=== PATIENT | female | born 1970 | race Caucasian/White ===

== ENCOUNTER → 2017-04-14 | Emergency (ER) | payer MEDICAID ==
[~2017-04-14] VITALS: Ht 165.1 cm; Wt 63.5 kg
[~2017-04-14] MED LIST: DOX100C PO; IBUP-1174 PO; InsuLIN REG 1unit/0.01ml Soln (100units/ml) IV ONE; MORPHINE SULFATE 4 MG/ML SYRG IV ONE; NOR5T PO; ONDANSETRON HCL 4 MG/2 ML VIAL IV ONE; SODIUM CHLORIDE 0.9% 500 ML IVB ONE
[2017-04-14 13:28] LABS: Urine Bilirubin Negative (Negative); Urine Blood Negative /uL (Negative); Urine Color Colorless (Yellow); Urine Nitrite Negative (Negative); Urine RBC <1 /hpf (0 - 4); Urine Squamous Epithelial Cell FEW /hpf (<5); Urine Urobilinogen Normal (Negative); Urine pH 7.5 (5.0-8.0)
[2017-04-14 13:29] LABS: Urine Glucose 4+ mg/dL (Normal); Urine Ketone 1+ (Negative)
[2017-04-14 13:37] LABS: Basophils # (auto) 0 uL; Basophils % (auto) 0.1 % (0.0-2.0); Eosinophils # (auto) 0.1 uL; Eosinophils % (auto) 0.5 % (0.0-7.0); Hematocrit 46.2 % (36.0-46.0); Hemoglobin 15.7 g/dL (12.2-16.2); Lymphocytes # (auto) 1.2 uL; Lymphocytes % (auto) 9.1 % (10.0-50.0); Mean Corpuscular Hemoglobin 30.8 pg (28.0-32.0); Mean Corpuscular Volume 90.5 fL (80.0-100.0); Mean Platelet Volume 8.9 fL (7.4-10.4); Monocytes # (auto) 0.4 uL; Neutrophils # (auto) 11.9 uL; Neutrophils % (auto) 87.3 % (37.0-80.0); Platelet Count (auto) 358 10^3/uL (140-450); Red Cell Distribution Width 13.9 % (11.6-16.0); White Blood Cell 13.6 10^3/uL (4.4-10.8)
[2017-04-14 13:56] LABS: Albumin 3.9 g/dL (3.4-5.0); Potassium 3.6 mmol/L (3.5-5.1)
[2017-04-14 13:58] LABS: BUN/Creatinine Ratio 19.3; Total Protein 7.6 g/dL (6.4-8.2)
[2017-04-14 14:03] LABS: Bilirubin, Total 0.4 mg/dL (0.2-1.0)
[2017-04-14 17:07] VITALS: BP 128/46
== END | disposition home or self-care (01) ==
LOC: EDUNIT# 12:47 → EDBD 12:56 → ER 13:01
DX: R10.9 Unspecified abdominal pain (principal); I10 Essential (primary) hypertension; E11.65 Type 2 diabetes mellitus with hyperglycemia; K21.9 Gastro-esophageal reflux disease without esophagitis; E78.5 Hyperlipidemia, unspecified; F17.210 Nicotine dependence, cigarettes, uncomplicated; F12.10 Cannabis abuse, uncomplicated; Z79.4 Long term (current) use of insulin
CPT/HCPCS: 36415; 80053; 81001; 82150; 82962; 83690; 84702; 85025; 93005; 94761; 96361; 96374; 96375; 99285; J1815; J2270; J2405; J7030; J7040

== ENCOUNTER 2017-05-19 18:01 | Inpatient (IN) | payer MEDICAID ==
[~2017-05-19] VITALS: Ht 157.5 cm; Wt 70.9 kg
[~2017-05-19 18:01] MED LIST changes: +HYDR-4663 PO; -InsuLIN REG 1unit/0.01ml Soln (100units/ml) IV ONE; -MORPHINE SULFATE 4 MG/ML SYRG IV ONE; -NOR5T PO; -ONDANSETRON HCL 4 MG/2 ML VIAL IV ONE; -SODIUM CHLORIDE 0.9% 500 ML IVB ONE
[2017-05-19] MEDS ORDERED: SODIUM CHLORIDE 0.9% 250 ML IV ONE (19:02)
[2017-05-19 19:27] LABS: Basophils # (auto) 0.1 uL; Basophils % (auto) 0.4 % (0.0-2.0); CONDITION Y; Eosinophils # (auto) 0 uL; Eosinophils % (auto) 0.1 % (0.0-7.0); Hematocrit 48.7 % (36.0-46.0); Hemoglobin 16.7 g/dL (12.2-16.2); Lymphocytes # (auto) 1.4 uL; Lymphocytes % (auto) 9.8 % (10.0-50.0); Mean Corpuscular Hemoglobin 30.4 pg (28.0-32.0); Mean Corpuscular Hgb Conc. 34.3 g/dL (32.0-36.0); Mean Corpuscular Volume 88.6 fL (80.0-100.0); Mean Platelet Volume 9.2 fL (7.4-10.4); Monocytes # (auto) 0.5 uL; Monocytes % (auto) 3.5 % (0.0-12.0); Neutrophils # (auto) 12.1 uL; Neutrophils % (auto) 86.2 % (37.0-80.0); Platelet Count (auto) 333 10^3/uL (140-450); Red Cell Distribution Width 12.9 % (11.6-16.0); White Blood Cell 14.1 10^3/uL (4.4-10.8)
[2017-05-19 19:41] LABS: INR 0.97 (0.9-1.15)
[2017-05-19 19:53] LABS: B-Type Natriuretic Peptide 24.57 pg/mL (0-100)
[2017-05-19 19:55] LABS: Albumin 4.1 g/dL (3.4-5.0); BUN/Creatinine Ratio 18.3; Bilirubin, Total 1.4 mg/dL (0.2-1.0); Calcium 9.3 mg/dL (8.5-10.1); Magnesium 2.2 mg/dL (1.6-2.6); Potassium 3.7 mmol/L (3.5-5.1); Total Protein 7.6 g/dL (6.4-8.2)
[2017-05-19 20:02] LABS: Temperature: 23.4 C (20.0-25.0)
[2017-05-19] MEDS ORDERED: MORPHINE SULF INJ 2 MG/ML SYRINGE 1ML IV ONE (20:15)
[2017-05-19] MEDS ORDERED: ONDANSETRON HCL 4 MG/2 ML VIAL IV ONE (20:15)
[2017-05-19] MEDS ORDERED: InsuLIN REG 1unit/0.01ml Soln (100units/ml) IV ONE (20:15)
[2017-05-19 21:41] LABS: Lactic Acid w/Reflex 3.4 mmol/L (0.4-2.0)
[2017-05-19 21:49] LABS: REFLEX LACTIC ACID YES OR NO YES
[2017-05-19] MEDS ORDERED: SODIUM CHLORIDE 0.9% 2,000 ML IV ONE (23:15)
[2017-05-19] MEDS ORDERED: cefTRIAXone 1GM/50ML D5W 50 ML IV ONE (23:15)
[2017-05-20 02:08] LABS: Allen Test Yes; Base Excess 5.3 mmol/L (-2.0-2.0); Blood 02Sat 93.4 % (96-100); Blood COHb 1.4 % (0.5-1.5); Blood MetHb 0.2 % (0.0-1.5); HCO3 30.2 mmol/L (22-26.0); HHb 6.5 % (0.0-5.0); MODE ROOM AIR; O2Hb 91.9 % (94.0-97.0); PCO2 44.9 mmHg (35.0-45.0); PCO2(T) 44.9 mmHg (35.0-45.0); PO2 72.6 mmHg (80.0-100.0); PO2(T) 72.6 mmHg (80.0-100.0); Sample Type Arterial; pH 7.445 (7.350-7.450)
[2017-05-20 02:35] LABS: Urine Bilirubin Negative (Negative); Urine Blood Negative /uL (Negative); Urine Color Yellow (Yellow); Urine Glucose 4+ mg/dL (Normal); Urine Hyaline Cast FEW /lpf (0 - 2); Urine Ketone 1+ (Negative); Urine Nitrite Negative (Negative); Urine RBC <1 /hpf (0 - 4); Urine Squamous Epithelial Cell FEW /hpf (<5); Urine Urobilinogen Normal (Negative)
[2017-05-20] MEDS ORDERED: ONDANSETRON HCL 4 MG/2 ML VIAL IV ONE (04:30)
[2017-05-20] MEDS ORDERED: MORPHINE SULF INJ 2 MG/ML SYRINGE 1ML IV ONE (04:30)
[2017-05-20] MEDS ORDERED: MORPHINE SULF INJ 2 MG/ML SYRINGE 1ML IV PRN (06:45)
[2017-05-20] MEDS ORDERED: NITROGLYCERIN 0.4 MG SL TAB SL PRN (06:45)
[2017-05-20] MEDS ORDERED: LACTULOSE 20Gm/30ML SOLN PO PRN (06:45)
[2017-05-20] MEDS ORDERED: SODIUM CHLORIDE 0.9% 1,000 ML IV ONE ×2 (06:45)
[2017-05-20] MEDS ORDERED: DEXTROSE (50%) 50ML SYRG IV PRN (07:00)
[2017-05-20 09:56] VITALS: BP 180/94
[2017-05-20] MEDS: ENOXAPARIN SOD 30 MG/0.3 ML SYRINGE SC SCH (10:00)
[2017-05-20] MEDS: InsuLIN REG 1unit/0.01ml Soln (100units/ml) SC SCH ×4 (10:23→21:46)
[2017-05-20] MEDS: ACCU-CHEK COMFORT CURVE STRIP VI SCH ×4 (10:24→21:46)
[2017-05-20] MEDS: METOPROLOL TARTRATE 25 MG TAB PO SCH ×2 (10:27→21:45)
[2017-05-20 10:35] LABS: Basophils # (auto) 0 uL; Basophils % (auto) 0.2 % (0.0-2.0); CONDITION Y; Eosinophils # (auto) 0.1 uL; Eosinophils % (auto) 0.5 % (0.0-7.0); Hematocrit 40.2 % (36.0-46.0); Hemoglobin 13.5 g/dL (12.2-16.2); Lymphocytes # (auto) 1.4 uL; Lymphocytes % (auto) 11.4 % (10.0-50.0); Mean Corpuscular Hemoglobin 30.1 pg (28.0-32.0); Mean Corpuscular Hgb Conc. 33.5 g/dL (32.0-36.0); Mean Corpuscular Volume 89.9 fL (80.0-100.0); Mean Platelet Volume 8.9 fL (7.4-10.4); Monocytes # (auto) 0.6 uL; Monocytes % (auto) 4.9 % (0.0-12.0); Neutrophils # (auto) 10.2 uL; Platelet Count (auto) 268 10^3/uL (140-450); White Blood Cell 12.3 10^3/uL (4.4-10.8)
[2017-05-20 10:41] LABS: Albumin 3.2 g/dL (3.4-5.0); BUN/Creatinine Ratio 31.7; Bilirubin, Total 0.7 mg/dL (0.2-1.0); Calcium 7.9 mg/dL (8.5-10.1); Potassium 3.6 mmol/L (3.5-5.1); Total Protein 6.1 g/dL (6.4-8.2)
[2017-05-20] MEDS: cefTRIAXone 1GM/50ML D5W 50 ML IV SCH (12:31)
[2017-05-20] MEDS: PANTOPRAZOLE SODIUM 40 MG/10 ML VIAL IV SCH (12:58)
[2017-05-20 13:00] VITALS: BP 120/73
[2017-05-20] MEDS ORDERED: METOCLOPRAMIDE HCL 5MG/ml INJ 2ml VIAL IV ONE (14:30)
[2017-05-20] MEDS ORDERED: INSUINJ37 SUBCUT (15:47)
[2017-05-20 16:40] VITALS: BP 92/55
[2017-05-20] MEDS: ONDANSETRON HCL 4 MG/2 ML VIAL IV PRN (18:40)
[2017-05-20] MEDS ORDERED: ZOLPIDEM TARTRATE 5 MG TAB PO PRN (19:30)
[2017-05-20 20:00] VITALS: BP 112/78
[2017-05-20] MEDS: SODIUM CHLORIDE 0.9% 1,000 ML IV SCH (21:12)
[2017-05-20] MEDS: ATORVASTATIN 20 MG TAB PO SCH (21:44)
[2017-05-20] MEDS: METOCLOPRAMIDE HCL 5MG/ml INJ 2ml VIAL IV SCH (21:44)
[2017-05-20] MEDS: ACETAMINOPHEN 500 MG TAB PO PRN (21:45)
[2017-05-20 22:00] VITALS: BP 112/78
[2017-05-21] MEDS: InsuLIN REG 1unit/0.01ml Soln (100units/ml) SC SCH ×6 (02:03→22:32)
[2017-05-21] MEDS: ACCU-CHEK COMFORT CURVE STRIP VI SCH ×6 (02:04→22:26)
[2017-05-21] MEDS: LORazepam 0.5 MG TAB PO PRN (02:19)
[2017-05-21] MEDS: ONDANSETRON HCL 4 MG/2 ML VIAL IV PRN ×2 (02:19→09:07)
[2017-05-21 05:00] VITALS: BP 97/56
[2017-05-21] MEDS: METOCLOPRAMIDE HCL 5MG/ml INJ 2ml VIAL IV SCH ×3 (06:01→22:13)
[2017-05-21] MEDS: SODIUM CHLORIDE 0.9% 1,000 ML IV SCH ×3 (06:01→18:11)
[2017-05-21 06:05] LABS: Basophils # (auto) 0 uL; Basophils % (auto) 0.3 % (0.0-2.0); CONDITION Y; Eosinophils # (auto) 0.1 uL; Eosinophils % (auto) 0.9 % (0.0-7.0); Hematocrit 39.8 % (36.0-46.0); Hemoglobin 13.4 g/dL (12.2-16.2); Lymphocytes # (auto) 2.1 uL; Lymphocytes % (auto) 25.2 % (10.0-50.0); Mean Corpuscular Hemoglobin 30.6 pg (28.0-32.0); Mean Corpuscular Hgb Conc. 33.7 g/dL (32.0-36.0); Mean Corpuscular Volume 90.7 fL (80.0-100.0); Mean Platelet Volume 8.9 fL (7.4-10.4); Monocytes # (auto) 0.5 uL; Monocytes % (auto) 6.4 % (0.0-12.0); Neutrophils # (auto) 5.6 uL; Neutrophils % (auto) 67.2 % (37.0-80.0); Platelet Count (auto) 241 10^3/uL (140-450); White Blood Cell 8.3 10^3/uL (4.4-10.8)
[2017-05-21 06:29] LABS: Albumin 3.2 g/dL (3.4-5.0); BUN/Creatinine Ratio 32.8; Bilirubin, Total 0.5 mg/dL (0.2-1.0); Calcium 8.4 mg/dL (8.5-10.1); Magnesium 2.3 mg/dL (1.6-2.6); Phosphorus 1.9 mg/dL (2.5-4.90); Total Protein 5.9 g/dL (6.4-8.2)
[2017-05-21 07:35] LABS: Potassium 2.8 mmol/L (3.5-5.1)
[2017-05-21 08:00] VITALS: BP 100/55
[2017-05-21] MEDS: cefTRIAXone 1GM/50ML D5W 50 ML IV SCH (08:50)
[2017-05-21] MEDS: PANTOPRAZOLE SODIUM 40 MG/10 ML VIAL IV SCH (09:07)
[2017-05-21] MEDS: ENOXAPARIN SOD 30 MG/0.3 ML SYRINGE SC SCH (09:08)
[2017-05-21] MEDS: METOPROLOL TARTRATE 25 MG TAB PO SCH ×2 (09:08→22:00)
[2017-05-21] MEDS: ACETAMINOPHEN 500 MG TAB PO PRN ×2 (09:17→22:13)
[2017-05-21] MEDS ORDERED: POTASSIUM CHLORIDE 40 MEQ, LIDOCAINE 1% (LOCAL ANESTH.) 4 ML in SODIUM CHL 0.9% 250 ML IV ONE (10:00)
[2017-05-21 12:00] VITALS: BP 108/71
[2017-05-21 16:00] VITALS: BP 98/59
[2017-05-21 20:00] VITALS: BP 94/57
[2017-05-21 20:47] VITALS: BP 94/57
[2017-05-21] MEDS: ATORVASTATIN 20 MG TAB PO SCH (22:13)
[2017-05-22] VITALS (8 sets, daily range): BP systolic 90–234; BP diastolic 52–127
[2017-05-22] MEDS: ACCU-CHEK COMFORT CURVE STRIP VI SCH ×5 (01:25→17:22)
[2017-05-22] MEDS: InsuLIN REG 1unit/0.01ml Soln (100units/ml) SC SCH ×5 (01:26→17:32)
[2017-05-22] MEDS: SODIUM CHLORIDE 0.9% 1,000 ML IV SCH ×3 (03:13→17:23)
[2017-05-22 06:18] LABS: Basophils # (auto) 0 uL; Basophils % (auto) 0.4 % (0.0-2.0); CONDITION Y; Eosinophils # (auto) 0.2 uL; Eosinophils % (auto) 2.1 % (0.0-7.0); Hematocrit 38.7 % (36.0-46.0); Lymphocytes # (auto) 3.5 uL; Lymphocytes % (auto) 47.2 % (10.0-50.0); Mean Corpuscular Hemoglobin 30.9 pg (28.0-32.0); Mean Corpuscular Hgb Conc. 33.6 g/dL (32.0-36.0); Mean Corpuscular Volume 91.9 fL (80.0-100.0); Mean Platelet Volume 9.3 fL (7.4-10.4); Monocytes # (auto) 0.4 uL; Monocytes % (auto) 5.8 % (0.0-12.0); Neutrophils # (auto) 3.3 uL; Neutrophils % (auto) 44.5 % (37.0-80.0); Platelet Count (auto) 267 10^3/uL (140-450); White Blood Cell 7.5 10^3/uL (4.4-10.8)
[2017-05-22] MEDS: METOCLOPRAMIDE HCL 5MG/ml INJ 2ml VIAL IV SCH ×2 (06:19→14:07)
[2017-05-22 06:41] LABS: BUN/Creatinine Ratio 18.8; Calcium 8.6 mg/dL (8.5-10.1); Magnesium 2.4 mg/dL (1.6-2.6); Phosphorus 2.9 mg/dL (2.5-4.90)
[2017-05-22] MEDS: ONDANSETRON HCL 4 MG/2 ML VIAL IV PRN ×2 (07:59→17:22)
[2017-05-22] MEDS: LORazepam 0.5 MG TAB PO PRN (07:59)
[2017-05-22] MEDS: cefTRIAXone 1GM/50ML D5W 50 ML IV SCH (08:04)
[2017-05-22] MEDS: ENOXAPARIN SOD 30 MG/0.3 ML SYRINGE SC SCH (09:34)
[2017-05-22] MEDS: METOPROLOL TARTRATE 25 MG TAB PO SCH (09:34)
[2017-05-22] MEDS: PANTOPRAZOLE SODIUM 40 MG/10 ML VIAL IV SCH (09:34)
== END 2017-05-22 20:22 | disposition home or self-care (01) | DRG 423 ==
LOC: ER 18:07 → TELE 18:08 → TELE-E-ADS 05-20 08:49 → TELE-EAST 05-20 12:12
PROVIDERS: ADMIT Family Medicine; ATTEND Nurse Practitioner Acute Care
DX: E72.51 Non-ketotic hyperglycinemia (principal); N17.0 Acute kidney failure with tubular necrosis; K31.84 Gastroparesis; E11.43 Type 2 diabetes mellitus with diabetic autonomic (poly)neuropathy; E11.65 Type 2 diabetes mellitus with hyperglycemia; E87.1 Hypo-osmolality and hyponatremia; K21.9 Gastro-esophageal reflux disease without esophagitis; E86.0 Dehydration; I10 Essential (primary) hypertension; Z91.19 Patient's noncompliance with other medical treatment and regimen; E78.00 Pure hypercholesterolemia, unspecified; E87.0 Hyperosmolality and hypernatremia; F12.90 Cannabis use, unspecified, uncomplicated; F17.210 Nicotine dependence, cigarettes, uncomplicated; E11.40 Type 2 diabetes mellitus with diabetic neuropathy, unspecified; F32.9 Major depressive disorder, single episode, unspecified; Z71.89 Other specified counseling; F19.10 Other psychoactive substance abuse, uncomplicated
CPT/HCPCS: 36415; 36600; 51702; 71010; 80048; 80053; 80307; 81001; 82010; 82805; 82962; 83036; 83605; 83690; 83735; 83880; 84100; 84484; 85025; 85379; 85610; 85730; 87040; 93005; 96365; 96375; 96376; C9113; J0696; J1815; J2001; J2405

== ENCOUNTER 2017-12-29 11:28 | Inpatient (IN) | payer MEDICAID ==
[~2017-12-29] VITALS: Ht 157.5 cm; Wt 72.9 kg
[~2017-12-29 11:28] MED LIST changes: +BUP75T PO; +CITA-77 PO; -DOX100C PO; +DOXY-216 PO; -HYDR-4663 PO; -IBUP-1174 PO; +INSUINJ37 SUBCUT
[2017-12-29 12:16] LABS: Basophils # (auto) 0.1 uL; Basophils % (auto) 0.5 % (0.0-2.0); Eosinophils # (auto) 0 uL; Eosinophils % (auto) 0.1 % (0.0-7.0); Hematocrit 45.4 % (36.0-46.0); Hemoglobin 15.4 g/dL (12.2-16.2); Lymphocytes # (auto) 1.1 uL; Lymphocytes % (auto) 9.3 % (10.0-50.0); Mean Corpuscular Hemoglobin 30.4 pg (28.0-32.0); Mean Corpuscular Volume 89.4 fL (80.0-100.0); Monocytes # (auto) 0.6 uL; Monocytes % (auto) 5.4 % (0.0-12.0); Neutrophils # (auto) 10.1 uL; Neutrophils % (auto) 84.7 % (37.0-80.0); Platelet Count (auto) 245 10^3/uL (140-450); Red Blood Cells 5.07 10^6/uL (4.0-5.20); Red Cell Distribution Width 12.6 % (11.8-14.3); White Blood Cell 11.9 10^3/uL (4.4-10.8)
[2017-12-29] MEDS ORDERED: SODIUM CHLORIDE 0.9% 1,000 ML IV ONE (12:19)
[2017-12-29] MEDS ORDERED: ONDANSETRON HCL 4 MG/2 ML VIAL IV ONE (12:30)
[2017-12-29 12:31] LABS: Urine Bacteria NONE SEEN /hpf (None Seen); Urine Blood Negative /uL (Negative); Urine Specific Gravity 1.022 (1.001-1.035); Urine WBC <1 /hpf (0 - 5)
[2017-12-29 12:44] LABS: Albumin 3.7 g/dL (3.4-5.0); BUN/Creatinine Ratio 34.5; Bilirubin, Total 0.7 mg/dL (0.2-1.0); Calcium 8.8 mg/dL (8.5-10.1); Potassium 4.3 mmol/L (3.5-5.1); Total Protein 7.6 g/dL (6.4-8.2)
[2017-12-29] MEDS: SODIUM CHLORIDE 0.9% 1,000 ML IV SCH ×2 (13:30→21:38)
[2017-12-29] MEDS ORDERED: HYDROcodone-ACET 5/325MG TAB PO PRN (13:45)
[2017-12-29] MEDS ORDERED: LORazepam 0.5 MG TAB PO PRN (13:45)
[2017-12-29] MEDS ORDERED: LACTULOSE 20Gm/30ML SOLN PO PRN (13:45)
[2017-12-29] MEDS ORDERED: ENOXAPARIN SOD 40 MG/0.4 ML SYRINGE SC ONE (13:45)
[2017-12-29] MEDS ORDERED: MORPHINE SULFATE 4 MG/ML SYR/VIAL IV PRN (13:45)
[2017-12-29] MEDS ORDERED: NITROGLYCERIN 0.4 MG SL TAB SL PRN (13:45)
[2017-12-29] MEDS ORDERED: ACETAMINOPHEN 500 MG TAB PO PRN (13:45)
[2017-12-29] MEDS ORDERED: DEXTROSE (50%) 50ML SYRG IV PRN (13:45)
[2017-12-29 14:02] LABS: Amylase 20 U/L (25-115); Lipase 114 U/L (73-393)
[2017-12-29 14:19] LABS: Alcohol, Urine < 3.0 mg/dL (0-5); Amphetamine Screen, Urine NEGATIVE (NEGATIVE); Barbiturate Scree,Urine NEGATIVE (NEGATIVE); Benzodiazephine Screen, Urine NEGATIVE (NEGATIVE); Cannabinoid Screen, Urine POSITIVE (NEGATIVE); Cocaine Screen, Urine NEGATIVE (NEGATIVE); Opiate Scree,Urine NEGATIVE (NEGATIVE); Phencyclidine Screen, Urine NEGATIVE (NEGATIVE)
[2017-12-29] MEDS: InsuLIN REG 1unit/0.01ml Soln (100units/ml) SC SCH ×3 (15:36→23:45)
[2017-12-29] MEDS: ACCU-CHEK COMFORT CURVE STRIP VI SCH ×3 (15:36→23:44)
[2017-12-29] MEDS ORDERED: InsuLIN REG 1unit/0.01ml Soln (100units/ml) IV ONE (16:45)
[2017-12-29 19:50] VITALS: BP 110/74
[2017-12-29 20:00] VITALS: BP 110/74
[2017-12-29] MEDS: FAMOTIDINE (10MG/ML) 2ML VL IV SCH (21:18)
[2017-12-29 22:00] VITALS: BP 110/74
[2017-12-29] MEDS ORDERED: INSDRIP IV (22:25)
[2017-12-29] MEDS: TEMAZEPAM 15 MG CAP PO PRN (23:43)
[2017-12-30] MEDS: SODIUM CHLORIDE 0.9% 1,000 ML IV SCH ×4 (03:48→23:45)
[2017-12-30] MEDS: InsuLIN REG 1unit/0.01ml Soln (100units/ml) SC SCH ×6 (03:49→23:44)
[2017-12-30] MEDS: ACCU-CHEK COMFORT CURVE STRIP VI SCH ×6 (03:49→23:44)
[2017-12-30 05:00] VITALS: BP 117/76
[2017-12-30] MEDS: PROMETHAZINE HCL 25 MG/ML 1ML IV PRN ×3 (07:37→16:08)
[2017-12-30 09:00] VITALS: BP 109/58
[2017-12-30] MEDS: FAMOTIDINE (10MG/ML) 2ML VL IV SCH ×2 (09:56→21:24)
[2017-12-30] MEDS: ENOXAPARIN SOD 40 MG/0.4 ML SYRINGE SC SCH (09:57)
[2017-12-30 10:54] LABS: Basophils # (auto) 0 uL; Basophils % (auto) 0.4 % (0.0-2.0); Eosinophils # (auto) 0.1 uL; Eosinophils % (auto) 1.1 % (0.0-7.0); Hematocrit 46.6 % (36.0-46.0); Hemoglobin 15.7 g/dL (12.2-16.2); Lymphocytes # (auto) 1.7 uL; Lymphocytes % (auto) 18.6 % (10.0-50.0); Mean Corpuscular Hemoglobin 30.4 pg (28.0-32.0); Mean Corpuscular Hgb Conc. 33.8 g/dL (32.0-36.0); Mean Corpuscular Volume 89.9 fL (80.0-100.0); Monocytes # (auto) 0.6 uL; Monocytes % (auto) 6.5 % (0.0-12.0); Neutrophils # (auto) 6.7 uL; Neutrophils % (auto) 73.4 % (37.0-80.0); Nucleated Red Blood Cells % 0.1 %; Platelet Count (auto) 259 10^3/uL (140-450); Red Blood Cells 5.18 10^6/uL (4.0-5.20); Red Cell Distribution Width 12.9 % (11.8-14.3); White Blood Cell 9.1 10^3/uL (4.4-10.8)
[2017-12-30 11:09] LABS: Albumin 3.6 g/dL (3.4-5.0); BUN/Creatinine Ratio 30.3; Bilirubin, Total 0.7 mg/dL (0.2-1.0); Calcium 8.7 mg/dL (8.5-10.1); Potassium 3.2 mmol/L (3.5-5.1); Total Protein 7.2 g/dL (6.4-8.2)
[2017-12-30 13:00] VITALS: BP 162/93
[2017-12-30] MEDS ORDERED: POTASSIUM CHLORIDE 40 MEQ, LIDOCAINE 1% (LOCAL ANESTH.) 4 ML in SODIUM CHL 0.9% 100 ML IV ONE (13:15)
[2017-12-30 14:08] VITALS: BP 136/90
[2017-12-30] MEDS: MORPHINE SULFATE 4 MG/ML SYR/VIAL IV PRN ×2 (14:29→18:49)
[2017-12-30 17:00] VITALS: BP 105/71
[2017-12-30 17:31] LABS: BUN/Creatinine Ratio 22.9; Calcium 8.2 mg/dL (8.5-10.1); Potassium 3.5 mmol/L (3.5-5.1)
[2017-12-30 22:00] VITALS: BP 114/73
[2017-12-31] MEDS: MORPHINE SULFATE 4 MG/ML SYR/VIAL IV PRN ×2 (01:03→08:08)
[2017-12-31] MEDS: ACCU-CHEK COMFORT CURVE STRIP VI SCH ×6 (04:28→23:49)
[2017-12-31] MEDS: InsuLIN REG 1unit/0.01ml Soln (100units/ml) SC SCH ×7 (04:28→23:49)
[2017-12-31] MEDS: SODIUM CHLORIDE 0.9% 1,000 ML IV SCH ×4 (05:28→20:30)
[2017-12-31 05:41] VITALS: BP 105/66
[2017-12-31 08:00] VITALS: BP 83/54
[2017-12-31 09:00] VITALS: BP 83/54
[2017-12-31 09:01] LABS: BUN/Creatinine Ratio 17.6; Calcium 9.1 mg/dL (8.5-10.1); Potassium 3.1 mmol/L (3.5-5.1)
[2017-12-31] MEDS: ENOXAPARIN SOD 40 MG/0.4 ML SYRINGE SC SCH (09:03)
[2017-12-31] MEDS: FAMOTIDINE (10MG/ML) 2ML VL IV SCH ×2 (09:03→22:26)
[2017-12-31] MEDS ORDERED: POTASSIUM CHL 20 Meq TABLET PO ONE (09:30)
[2017-12-31] MEDS ORDERED: DEXTROSE (50%) 50ML SYRG IV PRN (11:30)
[2017-12-31] MEDS ORDERED: ACCU-CHEK COMFORT CURVE STRIP VI SCH (12:00)
[2017-12-31 13:00] VITALS: BP 99/66
[2017-12-31 17:00] VITALS: BP 103/66
[2017-12-31 21:57] VITALS: BP 93/55
[2017-12-31] MEDS: TEMAZEPAM 15 MG CAP PO PRN (22:27)
[2018-01-01] VITALS (7 sets, daily range): BP systolic 105–176; BP diastolic 63–100
[2018-01-01] MEDS: SODIUM CHLORIDE 0.9% 1,000 ML IV SCH ×4 (01:30→20:15)
[2018-01-01] MEDS: ACCU-CHEK COMFORT CURVE STRIP VI SCH ×5 (03:59→20:06)
[2018-01-01] MEDS: InsuLIN REG 1unit/0.01ml Soln (100units/ml) SC SCH ×5 (03:59→20:06)
[2018-01-01 06:27] LABS: BUN/Creatinine Ratio 24.1; Calcium 7.9 mg/dL (8.5-10.1); Potassium 3.6 mmol/L (3.5-5.1)
[2018-01-01] MEDS: MORPHINE SULFATE 4 MG/ML SYR/VIAL IV PRN ×2 (09:36→19:51)
[2018-01-01] MEDS ORDERED: INSULIN LANTUS (GLARGINE) 1 /0.01ml (100units/ml) SC ONE ×2 (10:04→10:45)
[2018-01-01] MEDS: FAMOTIDINE (10MG/ML) 2ML VL IV SCH ×2 (10:44→21:37)
[2018-01-01] MEDS: ENOXAPARIN SOD 40 MG/0.4 ML SYRINGE SC SCH (10:44)
[2018-01-01] MEDS ORDERED: CITALOPRAM HYDROBR 20 MG TAB PO ONE (11:45)
[2018-01-01] MEDS: buPROPion HCL 75 MG TAB PO SCH (18:34)
[2018-01-01] MEDS: PROMETHAZINE HCL 25 MG/ML 1ML IV PRN (20:23)
[2018-01-01] MEDS: INSULIN LANTUS (GLARGINE) 1 /0.01ml (100units/ml) SC SCH (21:37)
[2018-01-01] MEDS ORDERED: ATORVASTATIN 20 MG TAB PO SCH (22:00)
[2018-01-01] MEDS ORDERED: INSULIN LANTUS (GLARGINE) 1 /0.01ml (100units/ml) SC SCH (22:00)
[2018-01-01] MEDS ORDERED: QUEtiapine FUMARATE 25 MG TAB PO SCH (22:00)
[2018-01-02] MEDS: InsuLIN REG 1unit/0.01ml Soln (100units/ml) SC SCH ×4 (00:05→12:46)
[2018-01-02] MEDS: ACCU-CHEK COMFORT CURVE STRIP VI SCH ×4 (00:06→12:47)
[2018-01-02 00:18] VITALS: BP 102/62
[2018-01-02 04:46] VITALS: BP 95/63
[2018-01-02] MEDS: PROMETHAZINE HCL 25 MG/ML 1ML IV PRN (05:45)
[2018-01-02] MEDS: MORPHINE SULFATE 4 MG/ML SYR/VIAL IV PRN (05:51)
[2018-01-02] MEDS: SODIUM CHLORIDE 0.9% 1,000 ML IV SCH (06:15)
[2018-01-02] MEDS: buPROPion HCL 75 MG TAB PO SCH (06:25)
[2018-01-02 09:00] VITALS: BP 182/107
[2018-01-02] MEDS: FAMOTIDINE (10MG/ML) 2ML VL IV SCH (09:28)
[2018-01-02] MEDS: INSULIN LANTUS (GLARGINE) 1 /0.01ml (100units/ml) SC SCH (09:28)
[2018-01-02] MEDS: ENOXAPARIN SOD 40 MG/0.4 ML SYRINGE SC SCH (09:28)
[2018-01-02] MEDS ORDERED: CITALOPRAM HYDROBR 20 MG TAB PO SCH (10:00)
[2018-01-02] MEDS ORDERED: ATOR20TA50 PO (11:23)
[2018-01-02] MEDS ORDERED: QUET25TA37 PO (11:23)
[2018-01-02] MEDS ORDERED: SODIUM CHLORIDE 0.9% 1,000 ML IV SCH (11:30)
[2018-01-02 12:59] VITALS: BP 131/88
[2018-01-02 13:00] VITALS: BP 138/88
[2018-01-02 14:07] LABS: BUN/Creatinine Ratio 13.3; Calcium 8.2 mg/dL (8.5-10.1); Magnesium 1.9 mg/dL (1.6-2.6); Potassium 3.3 mmol/L (3.5-5.1)
== END 2018-01-02 14:10 | disposition home health service (06) | DRG 420 ==
LOC: ER 11:28 → TELE 11:29 → TELE-CENTR 20:03
PROVIDERS: ADMIT Internal Medicine; ATTEND Internal Medicine
DX: E11.10 Type 2 diabetes mellitus with ketoacidosis without coma (principal); N17.0 Acute kidney failure with tubular necrosis; I10 Essential (primary) hypertension; E87.1 Hypo-osmolality and hyponatremia; E78.5 Hyperlipidemia, unspecified; E86.0 Dehydration; F17.210 Nicotine dependence, cigarettes, uncomplicated; F32.9 Major depressive disorder, single episode, unspecified; K59.00 Constipation, unspecified; G47.00 Insomnia, unspecified; E66.3 Overweight; F12.90 Cannabis use, unspecified, uncomplicated; E11.65 Type 2 diabetes mellitus with hyperglycemia; F41.9 Anxiety disorder, unspecified; R63.4 Abnormal weight loss; K21.9 Gastro-esophageal reflux disease without esophagitis; Z83.3 Family history of diabetes mellitus; Z91.19 Patient's noncompliance with other medical treatment and regimen; Z68.29 Body mass index [BMI] 29.0-29.9, adult; Z79.899 Other long term (current) drug therapy; Z79.4 Long term (current) use of insulin; Z80.8 Family history of malignant neoplasm of other organs or systems
CPT/HCPCS: 36415; 71045; 80048; 80053; 80061; 80307; 81001; 82150; 82962; 83036; 83690; 83735; 83930; 83935; 84300; 85025; 85652; 96361; 96372; 96374; 96375; J1815; J2001; J2405; J3490

== ENCOUNTER 2019-06-13 09:24 | Inpatient (IN) | payer MEDICAID | END 2019-06-15 19:25 | disposition home or self-care (01) | LOC: ER 09:24 → TELE-WESTW 15:12 | DX: R10.9 Unspecified abdominal pain (principal); N17.9 Acute kidney failure, unspecified; R73.9 Hyperglycemia, unspecified; E87.1 Hypo-osmolality and hyponatremia; E87.6 Hypokalemia; N39.0 Urinary tract infection, site not specified ==

== ENCOUNTER 2019-09-11 14:21 | Inpatient (IN) | payer MEDICAID ==
[~2019-09-11] VITALS: Ht 157.5 cm; Wt 67.2 kg
[~2019-09-11 14:21] MED LIST changes: +ATOR20TA50 PO; -DOXY-216 PO; +INSDRIP IV; +QUET25TA37 PO
[2019-09-11 15:27] LABS: Basophils # (auto) 0 uL; Basophils % (auto) 0.5 % (0.0-2.0); Eosinophils # (auto) 0.1 uL; Eosinophils % (auto) 0.9 % (0.0-7.0); Hematocrit 42.6 % (36.0-46.0); Hemoglobin 14.8 g/dL (12.2-16.2); Lymphocytes # (auto) 1.4 uL; Lymphocytes % (auto) 21.2 % (10.0-50.0); Mean Corpuscular Hemoglobin 30.3 pg (28.0-32.0); Mean Corpuscular Hgb Conc. 34.7 g/dL (32.0-36.0); Mean Corpuscular Volume 87.3 fL (80.0-100.0); Monocytes # (auto) 0.6 uL; Monocytes % (auto) 8.2 % (0.0-12.0); Neutrophils # (auto) 4.7 uL; Neutrophils % (auto) 69.2 % (37.0-80.0); Platelet Count (auto) 301 10^3/uL (140-450); Red Blood Cells 4.88 10^6/uL (4.0-5.20); Red Cell Distribution Width 12.7 % (11.8-14.3); White Blood Cell 6.8 10^3/uL (4.4-10.8)
[2019-09-11 15:37] LABS: Urine Bacteria NONE SEEN /hpf (None Seen); Urine Blood Negative /uL (Negative); Urine Mucus FEW (None Seen); Urine Specific Gravity 1.013 (1.001-1.035); Urine WBC 5 /hpf (0 - 5)
[2019-09-11 15:40] LABS: Albumin 4.3 g/dL (3.4-5.0)
[2019-09-11 15:45] LABS: Bilirubin, Total 0.6 mg/dL (0.2-1.0); Total Protein 8.1 g/dL (6.4-8.2)
[2019-09-11 15:48] LABS: Alcohol, Urine < 3.0 mg/dL (0-5); Amphetamine Screen, Urine NEGATIVE (NEGATIVE); Barbiturate Scree,Urine NEGATIVE (NEGATIVE); Benzodiazephine Screen, Urine NEGATIVE (NEGATIVE); Cannabinoid Screen, Urine POSITIVE (NEGATIVE); Cocaine Screen, Urine NEGATIVE (NEGATIVE); Opiate Scree,Urine NEGATIVE (NEGATIVE); Phencyclidine Screen, Urine NEGATIVE (NEGATIVE)
[2019-09-11 15:48] LABS: BUN/Creatinine Ratio 15.2; Calcium 5.9 mg/dL (8.5-10.1)
[2019-09-11 15:51] LABS: Potassium 2.5 mmol/L (3.5-5.1)
[2019-09-11] MEDS ORDERED: SODIUM CHLORIDE 0.9% 1,000 ML IV ONE ×2 (16:33→19:30)
[2019-09-11] MEDS ORDERED: PROMETHAZINE HCL 25 MG/ML 1ML IV ONE (17:00)
[2019-09-11] MEDS ORDERED: CALCIUM CHL 100MG/ML 1,000 MG in D5W 5% 100 ML IV ONE (17:00)
[2019-09-11] MEDS ORDERED: cefTRIAXone 1GM/50ML D5W 50 ML IV ONE (17:00)
[2019-09-11] MEDS ORDERED: POTASSIUM EFFERVESENT TAB 25 MEQ PO ONE (17:00)
[2019-09-11] MEDS ORDERED: LORazepam 2MG/ML-1ML VIAL IV ONE (18:00)
[2019-09-11] MEDS ORDERED: MORPHINE SULF INJ 2 MG/ML SYRINGE 1ML IV PRN (19:30)
[2019-09-11] MEDS ORDERED: DEXTROSE (50%) 50ML SYRG IV PRN (19:30)
[2019-09-11] MEDS ORDERED: ACETAMINOPHEN 500 MG TAB PO PRN (19:30)
[2019-09-11] MEDS ORDERED: NITROGLYCERIN 0.4 MG SL TAB SL PRN (19:30)
[2019-09-11] MEDS ORDERED: POTASSIUM CHL 20MEQ/100ML 100 ML IV SCH (19:30)
[2019-09-11] MEDS ORDERED: POTASSIUM CHLORIDE 40 MEQ, LIDOCAINE 1% (LOCAL ANESTH.) 4 ML in SODIUM CHL 0.9% 100 ML IV ONE (19:45)
[2019-09-11 19:51] LABS: Phosphorus 8.7 mg/dL (2.5-4.90)
[2019-09-11 20:00] LABS: Uric Acid 18.2 mg/dL (2.6-6.0)
[2019-09-11 20:07] LABS: Creatinine, Urine 194 mg/dL (30.0-125.0); Sodium Urine 25 mmol/L (40-220)
[2019-09-11] MEDS: HYDROcodone-ACET 5/325MG TAB PO PRN (20:08)
[2019-09-11 20:30] VITALS: BP 117/73
--- NOTE | 2019-09-11 20:30 | NUR ---
Telemetry admit from ER VIKYMELISSA admitted to Telemetry unit after SBAR received. Patient oriented to RYAN ANDERSON RN primary RN, unit, room, bed, and unit policies regarding patient care and visiting hours. Patient now on continuous telemetry monitoring, tele box # 12 and telemetry reading on arrival to unit is Sinus Rhythm at 70 BPM. Patient placed on bedside oxygen, weighed by bedscale and encouraged to call if they need something. All questions and concerns addressed, patient verbalized understanding. Note: Patient is alert and oriented but anxious to go down to smoke. Patient refused to answer some admission questions at this time and states that she really want's to have a smoke. When asked about medications she is taking at home, patient states "I don't know, everything is so screwy right now". Patient seemed drowsy and restless at the same time. Will provide a form for AMA to smoke.
--- NOTE | 2019-09-11 21:15 | NUR ---
Patient signed AMA to smoke form MELISSA SALMON states they want to leave the floor Against Medical Advice (AMA) to go outside and smoke. Patient encouraged to stay on floor and not smoke. Dr notified of patient's wishes. Patient advised of the risks and benefits of leaving AMA. Patient verbalized understanding and signed required AMA form.
--- NOTE | 2019-09-11 21:20 | NUR ---
Patient went down to smoke
--- NOTE | 2019-09-11 21:40 | NUR ---
PATIENT RETURN FROM AMA TO SMOKE.
[2019-09-11 22:00] VITALS: BP 117/73
[2019-09-11] MEDS ORDERED: FAMOTIDINE (10MG/ML) 2ML VL IV SCH (22:00)
[2019-09-11] MEDS: QUEtiapine FUMARATE 25 MG TAB PO SCH (22:08)
[2019-09-11] MEDS: ACCU-CHEK COMFORT CURVE STRIP VI SCH (22:08)
[2019-09-11] MEDS: InsuLIN REG 1unit/0.01ml Soln (100units/ml) SC SCH (22:08)
--- NOTE | 2019-09-11 23:00 | NUR ---
IV insertion IV access obtained, via clean sterile technique by inserting 22 gauge catheter at right hand after first attempt. IV secured properly. No trauma to site. Patient tolerated well.
[2019-09-12] MEDS: SODIUM CHLORIDE 0.9% 1,000 ML IV SCH ×3 (02:29→13:10)
--- NOTE | 2019-09-12 03:30 | NUR ---
PHOTO TAKEN TO BILATERAL LOWER EXTREMITY GREAT TOES, CRACKED
--- NOTE | 2019-09-12 04:57 | NUR ---
ROUNDS PATIENT IS RESTING IN BED WITH EYES CLOSED, NO DISTRESS NOTED AND PATIENT DENIES PAIN.
[2019-09-12] MEDS: InsuLIN REG 1unit/0.01ml Soln (100units/ml) SC SCH ×4 (06:28→22:14)
[2019-09-12] MEDS: ACCU-CHEK COMFORT CURVE STRIP VI SCH ×4 (06:28→22:15)
--- NOTE | 2019-09-12 06:30 | NUR ---
PATIENT'S BLOOD SUGAR IS 77MG/DL. OFFERED PATIENT SOME SNACKS BUT PATIENT IS TOO SLEEPY AND REFUSED, AND STATES " MAYBE LATER". WILL MONITOR
[2019-09-12 06:34] VITALS: BP 102/54
--- NOTE | 2019-09-12 06:45 | NUR ---
PATIENT REFUSED TO SIGN INVENTORY SHEET AT THIS TIME. PATIENT STATES "LATER MAYBE". WILL TRY AGAIN LATER.
--- NOTE | 2019-09-12 07:52 | NUR ---
PATIENT ROUNDS PATIENT LYING IN BED, NO DISTRESS NOTED, BED IN LOWEST POSITION, SIDE RAILS UP X2, CALL LIGHT WITHIN REACH. WILL CONTINUE TO MONITOR.
[2019-09-12 08:00] VITALS: BP 101/68
[2019-09-12 08:35] LABS: Basophils # (auto) 0 uL; Basophils % (auto) 0.4 % (0.0-2.0); Eosinophils # (auto) 0.1 uL; Eosinophils % (auto) 2.8 % (0.0-7.0); Hematocrit 40.2 % (36.0-46.0); Hemoglobin 13.8 g/dL (12.2-16.2); Lymphocytes # (auto) 1.8 uL; Mean Corpuscular Hemoglobin 30.1 pg (28.0-32.0); Mean Corpuscular Hgb Conc. 34.3 g/dL (32.0-36.0); Mean Corpuscular Volume 87.8 fL (80.0-100.0); Monocytes # (auto) 0.4 uL; Monocytes % (auto) 8.6 % (0.0-12.0); Neutrophils # (auto) 2.3 uL; Neutrophils % (auto) 49.2 % (37.0-80.0); Nucleated Red Blood Cells % 0.1 %; Platelet Count (auto) 229 10^3/uL (140-450); Red Blood Cells 4.58 10^6/uL (4.0-5.20); Red Cell Distribution Width 12.7 % (11.8-14.3); White Blood Cell 4.6 10^3/uL (4.4-10.8)
[2019-09-12] MEDS: cefTRIAXone 1GM/50ML D5W 50 ML IV SCH (08:37)
[2019-09-12 08:48] LABS: INR 0.99 (0.9-1.15); Partial Thromboplastin Time 30.5 sec (23.64-32.05)
[2019-09-12 08:55] LABS: Albumin 3.5 g/dL (3.4-5.0); BUN/Creatinine Ratio 23.1; Calcium 8.7 mg/dL (8.5-10.1)
[2019-09-12 08:57] LABS: Bilirubin, Total 0.6 mg/dL (0.2-1.0); Total Protein 6.8 g/dL (6.4-8.2)
[2019-09-12 09:05] LABS: Potassium 2.3 mmol/L (3.5-5.1)
--- NOTE | 2019-09-12 11:35 | NUR ---
DR BROTHERS AT BEDSIDE-LABS ORDERED.
[2019-09-12 13:00] VITALS: BP 101/67
[2019-09-12] MEDS ORDERED: POTASSIUM CHL 20 Meq TABLET PO ONE (13:15)
[2019-09-12 17:00] VITALS: BP 86/55
[2019-09-12 18:09] LABS: BUN/Creatinine Ratio 27.2; Calcium 8.8 mg/dL (8.5-10.1); Potassium 3.6 mmol/L (3.5-5.1)
--- NOTE | 2019-09-12 19:20 | NUR ---
Opening Shift Note Received report from maude Arguello RN. Assumed care of patient, awake and alert. No S/S of distress/SOB or pain. Instructed on POC and to call for assist PRN, will continue to monitor for changes Q1hr and PRN. Bed placed in lowest position, bed alarm turned on and call light within reach. Addendum: 09/12/19 at 2106 by RYAN ANDERSON RN RN REPORT RECEIVED FROM MAUDE EVANS RN
--- NOTE | 2019-09-12 20:00 | NUR ---
TELEMED REQUEST DONE
--- NOTE | 2019-09-12 21:00 | NUR ---
Received a call from Dr Balderas, psychologist. Dr Balderas states that she will start the consult soon and to make sure the TV is ready in patient's room.
[2019-09-12] MEDS: QUEtiapine FUMARATE 25 MG TAB PO SCH (21:25)
--- NOTE | 2019-09-12 21:45 | NUR ---
Dr Balderas from tele psych called and notified nurse that tele psych consult is done.
[2019-09-12] MEDS ORDERED: INSULIN LANTUS (GLARGINE) 1 /0.01ml (100units/ml) SC SCH (22:00)
[2019-09-12 22:24] VITALS: BP 88/59
[2019-09-12] MEDS: HYDROcodone-ACET 5/325MG TAB PO PRN (23:48)
[2019-09-13] VITALS (7 sets, daily range): BP systolic 85–107; BP diastolic 42–69
[2019-09-13] MEDS: SODIUM CHLORIDE 0.9% 1,000 ML IV SCH ×3 (02:42→22:09)
[2019-09-13] MEDS: ACCU-CHEK COMFORT CURVE STRIP VI SCH ×4 (06:20→21:46)
[2019-09-13] MEDS: InsuLIN REG 1unit/0.01ml Soln (100units/ml) SC SCH ×4 (06:31→21:58)
[2019-09-13 07:16] LABS: BUN/Creatinine Ratio 40.9; Calcium 8.2 mg/dL (8.5-10.1); Magnesium 2.7 mg/dL (1.6-2.6); Potassium 3.6 mmol/L (3.5-5.1)
[2019-09-13] MEDS: cefTRIAXone 1GM/50ML D5W 50 ML IV SCH (09:18)
[2019-09-13 09:55] LABS: Urine Bacteria NONE SEEN /hpf (None Seen); Urine Blood Negative /uL (Negative); Urine Specific Gravity 1.014 (1.001-1.035); Urine WBC 1 /hpf (0 - 5)
[2019-09-13 10:03] LABS: Creatinine, Urine 58 mg/dL (30.0-125.0); Sodium Urine 26 mmol/L (40-220)
[2019-09-13] MEDS: FAMOTIDINE (10MG/ML) 2ML VL IV SCH (10:38)
[2019-09-13] MEDS: HYDROcodone-ACET 5/325MG TAB PO PRN ×2 (11:15→19:36)
[2019-09-13] MEDS ORDERED: NICOTINE 21MG/24 HR TOPICAL PATCH TD ONE (13:00)
[2019-09-13] MEDS ORDERED: LORazepam 2MG/ML-1ML VIAL IV ONE (13:00)
[2019-09-13] MEDS ORDERED: CITALOPRAM HYDROBR 20 MG TAB PO ONE (13:00)
[2019-09-13] MEDS ORDERED: GABAPENTIN 100 MG CAP PO ONE (13:00)
[2019-09-13] MEDS: ATORVASTATIN 20 MG TAB PO SCH (21:47)
[2019-09-13] MEDS: GABAPENTIN 100 MG CAP PO SCH (21:48)
[2019-09-13] MEDS: QUEtiapine FUMARATE 25 MG TAB PO SCH (21:48)
[2019-09-13] MEDS: INSULIN LANTUS (GLARGINE) 1 /0.01ml (100units/ml) SC SCH (21:59)
[2019-09-13] MEDS ORDERED: TEMAZEPAM 15 MG CAP PO ONE (22:30)
--- NOTE | 2019-09-14 01:42 | NUR ---
pt tele was off. checked on pt. She was cold clamy and sleepy. Checked blood sugars was 124. replaced tele. changed gown and linens. Will continue to monitor.
[2019-09-14 04:48] VITALS: BP 106/61
[2019-09-14] MEDS: ACCU-CHEK COMFORT CURVE STRIP VI SCH ×4 (06:34→21:08)
[2019-09-14] MEDS: InsuLIN REG 1unit/0.01ml Soln (100units/ml) SC SCH ×4 (06:35→21:16)
--- NOTE | 2019-09-14 06:35 | NUR ---
PT REFUSING TO HAVE FLUIDS AT THIS TIME. EDUCATED PT ON THE NEED. PT VERBALIZED UNDERSTANDING
[2019-09-14 07:15] LABS: BUN/Creatinine Ratio 40.2; Calcium 8.2 mg/dL (8.5-10.1); Potassium 3.5 mmol/L (3.5-5.1)
[2019-09-14 07:20] LABS: Cholesterol 212 mg/dL (< 200); HDL Cholesterol 49 mg/dL (40-59); LDL Cholesterol 138 mg/dL (< 100); Triglycerides 115 mg/dL (< 150)
[2019-09-14] MEDS: SODIUM CHLORIDE 0.9% 1,000 ML IV SCH ×2 (07:30→12:08)
[2019-09-14 09:00] VITALS: BP 112/68
[2019-09-14] MEDS: GABAPENTIN 100 MG CAP PO SCH ×2 (09:15→21:09)
[2019-09-14] MEDS: CITALOPRAM HYDROBR 20 MG TAB PO SCH (09:15)
[2019-09-14] MEDS: ASPirin-EC 81 mg tab PO SCH (09:15)
[2019-09-14] MEDS: HYDROcodone-ACET 5/325MG TAB PO PRN ×2 (09:15→15:36)
[2019-09-14] MEDS: FAMOTIDINE (10MG/ML) 2ML VL IV SCH (09:16)
[2019-09-14] MEDS: NICOTINE 21MG/24 HR TOPICAL PATCH TD SCH (09:16)
--- NOTE | 2019-09-14 10:07 | NUR ---
Tele Psy order placed via [facility]. Awaiting to call back.
[2019-09-14] MEDS ORDERED: ONDANSETRON HCL 4 MG/2 ML VIAL IV PRN (10:15)
[2019-09-14] MEDS ORDERED: POTASSIUM CHL 20 Meq TABLET PO ONE (11:45)
[2019-09-14 12:25] VITALS: BP 112/67
[2019-09-14] MEDS ORDERED: hydrOXYzine 25 MG TAB or CAP PO PRN (13:45)
[2019-09-14 17:00] VITALS: BP 119/79
[2019-09-14] MEDS: ATORVASTATIN 20 MG TAB PO SCH (21:09)
[2019-09-14] MEDS: QUEtiapine FUMARATE 25 MG TAB PO SCH (21:09)
[2019-09-14] MEDS: INSULIN LANTUS (GLARGINE) 1 /0.01ml (100units/ml) SC SCH (21:16)
[2019-09-14 22:00] VITALS: BP 104/66
[2019-09-14] MEDS ORDERED: traZODone HCL 50 MG TAB PO SCH (22:00)
[2019-09-15] MEDS: SODIUM CHLORIDE 0.9% 1,000 ML IV SCH (01:05)
[2019-09-15 05:00] VITALS: BP 90/63
--- NOTE | 2019-09-15 06:00 | NUR ---
pt woke up screaming. went in to talk to pt. she was yelling" I dont want to do this any more" She would not explain. She stated she was in pain. gave her a norco. will continue to monitor.
[2019-09-15] MEDS: InsuLIN REG 1unit/0.01ml Soln (100units/ml) SC SCH ×3 (06:04→12:30)
[2019-09-15] MEDS: ACCU-CHEK COMFORT CURVE STRIP VI SCH ×3 (06:04→12:30)
[2019-09-15] MEDS: HYDROcodone-ACET 5/325MG TAB PO PRN ×2 (06:05→14:00)
[2019-09-15] MEDS ORDERED: LORazepam 2MG/ML-1ML VIAL ONE (06:23)
--- NOTE | 2019-09-15 06:25 | NUR ---
pt was not calming down. paged hospitalist. awaiting call back.
[2019-09-15] MEDS ORDERED: LORazepam 2MG/ML-1ML VIAL IV PRN (06:30)
--- NOTE | 2019-09-15 06:35 | NUR ---
talked to hospitalist. gave 1 mg ativan. had one of the barrel polisher inside sitting in room. pt refused tele and trying to get up. charge histotechnologist informed that patient needs sitting.
--- NOTE | 2019-09-15 07:32 | NUR ---
Report received. Patient found sitting on the floor in the bathroom vomiting into the toilet. Patient was assisted back to bed. Patient to be transferred to a sitter room on [facility]. Addendum: 09/15/19 at 0736 by Samantha Larsen RN Not this patient. Addendum: 09/15/19 at 0740 by Samantha Larsen RN Yes it was this patient. ignore the amendment of not this patient.
--- NOTE | 2019-09-15 08:02 | NUR ---
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 Report to ASHLEY Nino.
--- NOTE | 2019-09-15 08:45 | NUR ---
TRANSFER from [place] [id number] Received patient from [facility] room, and received SBAR report from ASHLEY Burch. Assumed care of patient, who was awake, alert, and oriented x4, lying flat in bed with covers over her head and talking. Sitter is at bedside for 24 hour care and safety. No S/S of distress/SOB or pain. IV is in right hand 22 gauge and is asymptomatic, intact, patent, and infusing normal saline at 100 mL/hour. Bed is locked and in lowest position and call light is within reach. Instructed on POC and to call for assist PRN, and patient verbalized understanding to the best of her ability. Will continue to monitor for changes Q1hr and PRN.
--- NOTE | 2019-09-15 08:55 | NUR ---
Sent EAST Tele box back to ICU. Received new Tele box for west wing.
--- NOTE | 2019-09-15 09:15 | NUR ---
Received call from Forest Scientist Patient refused AM lab draw, and was presenting hostile behavior while the Forest Scientist was at bedside. Informed Forest Scientist to try and redraw at 1200. Walked into room and patient was lying flat on her side with the covers over her head, and she was talking. No distress was noted. Will continue to monitor Q30 minutes.
[2019-09-15] MEDS: CITALOPRAM HYDROBR 20 MG TAB PO SCH (10:00)
[2019-09-15] MEDS: GABAPENTIN 100 MG CAP PO SCH (10:00)
[2019-09-15] MEDS: FAMOTIDINE (10MG/ML) 2ML VL IV SCH (10:00)
[2019-09-15] MEDS: NICOTINE 21MG/24 HR TOPICAL PATCH TD SCH (10:00)
[2019-09-15] MEDS: ASPirin-EC 81 mg tab PO SCH (10:00)
--- NOTE | 2019-09-15 10:00 | NUR ---
Patient removed IV, catheter is fully intact. Pressure dressing applied to site.
--- NOTE | 2019-09-15 10:30 | NUR ---
Patient refused all 1000 medications.
--- NOTE | 2019-09-15 11:09 | NUR ---
Patient keeps disconnecting Telemetry box when getting up to go to the bathroom.
--- NOTE | 2019-09-15 12:02 | NUR ---
Nutrition Assessment Notes please see attached link for complete assessment Est. Needs BW [id number] kcal (23-25 kcal/kgBW), 67-73 gms pro (1.0-1.1 gms/kgBW). Will continue to monitor pertinent labs and reassess nutrient need prn Addendum: 09/15/19 at [address] Amended: Links added.
--- NOTE | 2019-09-15 12:08 | NUR ---
Dr. Junior, Hospitalist, at bedside; new orders received for discharge.
--- NOTE | 2019-09-15 12:30 | NUR ---
Paged Dennise, with family welfare social work professor, in regards to family welfare social work professor consult for Home Health Care with discharge of patient; received immediate call back with request to fax orders for home health over to [facility]. [facility] will contact patient within 24-28 hours of discharge today to set up first appointment.
--- NOTE | 2019-09-15 12:45 | NUR ---
Patient went outside with mother to smoke, via wheelchair; no distress noted at time of departure.
[2019-09-15] MEDS ORDERED: ASPI-378 PO (12:49)
[2019-09-15] MEDS ORDERED: NIC21P TOP (12:49)
[2019-09-15] MEDS ORDERED: HYDR25CA PO (12:49)
[2019-09-15] MEDS ORDERED: TRAZ50TA2 PO (12:49)
[2019-09-15] MEDS ORDERED: ESCI10TA PO (12:49)
[2019-09-15] MEDS ORDERED: ATO40T PO (12:49)
[2019-09-15] MEDS ORDERED: ESCI5TAB PO (12:49)
[2019-09-15 13:11] VITALS: BP 119/72
[2019-09-15] MEDS ORDERED: LORazepam 0.5 MG TAB PO ONE (14:30)
[2019-09-15] MEDS ORDERED: LORazepam 0.5 MG TAB ONE (14:34)
--- NOTE | 2019-09-15 14:40 | NUR ---
Discharge instructions given as ordered. Encourage to follow up with PMD as instructed. All questions and concerns addressed. Patient verbalized understanding. Medication reconciliation form completed and copy given to patient. IV removed with catheter intact, pressure dressing applied. Telemetry unit returned to ICU.
--- NOTE | 2019-09-15 15:00 | NUR ---
Patient taken to vehicle via wheelchair with all personal belongings, accompanied by family member. No distress noted at time of departure.
--- NOTE | 2019-09-16 15:49 | NUR ---
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 MD order was sent to [facility] and to [facility] for auth. Per Renae at [facility] she has accepted patient and SOC will be 09/17/19. Mica has been notified. Addendum: 09/16/19 at 1552 by Dennise CALIX Amended: Links added.
== END 2019-09-15 15:00 | disposition home health service (06) | DRG 469 ==
LOC: ER 14:28 → TELE 14:29 → TELE-EAST 20:30 → TELE-WESTW 09-15 07:55
PROVIDERS: ADMIT Nurse Practitioner Acute Care; ATTEND Internal Medicine
DX: N17.0 Acute kidney failure with tubular necrosis (principal); G93.41 Metabolic encephalopathy; E11.21 Type 2 diabetes mellitus with diabetic nephropathy; K31.84 Gastroparesis; E83.51 Hypocalcemia; E11.43 Type 2 diabetes mellitus with diabetic autonomic (poly)neuropathy; E87.1 Hypo-osmolality and hyponatremia; E11.22 Type 2 diabetes mellitus with diabetic chronic kidney disease; F12.90 Cannabis use, unspecified, uncomplicated; D64.9 Anemia, unspecified; K52.9 Noninfective gastroenteritis and colitis, unspecified; F41.9 Anxiety disorder, unspecified; N39.0 Urinary tract infection, site not specified; E87.6 Hypokalemia; F31.9 Bipolar disorder, unspecified; N18.9 Chronic kidney disease, unspecified; K21.9 Gastro-esophageal reflux disease without esophagitis; E78.5 Hyperlipidemia, unspecified; F17.210 Nicotine dependence, cigarettes, uncomplicated; Z79.899 Other long term (current) drug therapy; Z71.6 Tobacco abuse counseling; Z79.4 Long term (current) use of insulin; Z91.19 Patient's noncompliance with other medical treatment and regimen; Z79.82 Long term (current) use of aspirin; Z83.3 Family history of diabetes mellitus
CPT/HCPCS: 36415; 70551; 71046; 74176; 76775; 80048; 80053; 80061; 80307; 81001; 82010; 82570; 82962; 83036; 83690; 83735; 83930; 84100; 84300; 84443; 84550; 85025; 85610; 85730; 87086; 93005; 93886; 96365; 96367; 96375; 99291; G0378; J0696; J1815; J2001; J2405; J3490; J7060

== ENCOUNTER 2020-03-02 08:12 | Inpatient (IN) | payer MEDICAID ==
[~2020-03-02] VITALS: Ht 162.6 cm; Wt 66.7 kg
[2020-03-02] VITALS (11 sets, daily range): BP systolic 86–116; BP diastolic 51–80
[~2020-03-02 08:12] MED LIST changes: +ASPI-378 PO; +ATO40T PO; -ATOR20TA50 PO; -BUP75T PO; -CITA-77 PO; +ESCI10TA PO; +ESCI5TAB PO; +HYDR25CA PO; +NIC21P TOP; -QUET25TA37 PO; +TRAZ50TA2 PO
[2020-03-02] MEDS ORDERED: SODIUM CHLORIDE 0.9% 1,000 ML IV ONE ×3 (08:26→08:44)
[2020-03-02 08:40] LABS: Basophils # (auto) 0 10 ^3/uL (0-0.2); Basophils % (auto) 0.4 % (0.0-2.0); Eosinophils # (auto) 0 10 ^3/uL (0-0.8); Hematocrit 48.3 % (36.0-46.0); Hemoglobin 16.6 g/dL (12.2-16.2); Lymphocytes # (auto) 0.8 10 ^3/uL (0.4-5.4); Lymphocytes % (auto) 8.2 % (10.0-50.0); Mean Corpuscular Hemoglobin 29.5 pg (28.0-32.0); Mean Corpuscular Hgb Conc. 34.4 g/dL (32.0-36.0); Mean Corpuscular Volume 85.7 fL (80.0-100.0); Monocytes # (auto) 0.4 10 ^3/uL (0-1.3); Monocytes % (auto) 4.3 % (0.0-12.0); Neutrophils # (auto) 8.8 10 ^3/uL (1.6-8.6); Neutrophils % (auto) 87.1 % (37.0-80.0); Nucleated Red Blood Cells % 0.1 %; Platelet Count (auto) 330 10^3/uL (140-450); Red Blood Cells 5.63 10^6/uL (4.0-5.20); Red Cell Distribution Width 13.2 % (11.8-14.3); White Blood Cell 10.1 10^3/uL (4.4-10.8)
[2020-03-02] MEDS ORDERED: InsuLIN REG 1unit/0.01ml Soln (100units/ml) IV ONE (08:45)
[2020-03-02 09:05] LABS: INR 0.97 (0.9-1.15); Partial Thromboplastin Time 28.5 sec (23.64-32.05)
[2020-03-02 09:07] LABS: Albumin 4.5 g/dL (3.4-5.0); Calcium 9.3 mg/dL (8.5-10.1); Potassium 3.3 mmol/L (3.5-5.1)
[2020-03-02] MEDS ORDERED: ONDANSETRON HCL 4 MG/2 ML VIAL IV ONE (09:15)
[2020-03-02] MEDS ORDERED: MORPHINE SULF INJ 2 MG/ML SYRINGE 1ML IV ONE (09:15)
[2020-03-02 09:16] LABS: BUN/Creatinine Ratio 14.2; Bilirubin, Total 0.8 mg/dL (0.2-1.0); Total Protein 8.9 g/dL (6.4-8.2)
[2020-03-02 10:06] LABS: Urine Bacteria FEW /hpf (None Seen); Urine Blood 2+ /uL (Negative); Urine Hyaline Cast FEW /lpf (0 - 2); Urine Specific Gravity 1.009 (1.001-1.035); Urine WBC 6 /hpf (0 - 5)
[2020-03-02] MEDS ORDERED: InsuLIN R (HUMAN) 100 UNITS in SODIUM CHL 0.9% 99 ML IV SCH (11:12)
[2020-03-02] MEDS ORDERED: MORPHINE SULF INJ 2 MG/ML SYRINGE 1ML IV PRN (11:15)
[2020-03-02] MEDS ORDERED: POTASSIUM CHLORIDE 20 MEQ, LIDOCAINE 1% (LOCAL ANESTH.) 2 ML in SODIUM CHL 0.9% 100 ML IV ONE (11:15)
[2020-03-02] MEDS ORDERED: DEXTROSE (50%) 50ML SYRG IV PRN (11:15)
[2020-03-02] MEDS ORDERED: NITROGLYCERIN 0.4 MG SL TAB SL PRN (11:15)
[2020-03-02] MEDS ORDERED: PROMETHAZINE HCL 25 MG/ML 1ML ONE (11:21)
[2020-03-02] MEDS ORDERED: PROMETHAZINE HCL 25 MG/ML 1ML IV ONE (11:30)
[2020-03-02] MEDS: ACCU-CHEK COMFORT CURVE STRIP VI SCH ×8 (11:54→23:26)
[2020-03-02] MEDS ORDERED: POTASSIUM CHL 20MEQ/100ML 100 ML IV ONE (12:45)
[2020-03-02] MEDS ORDERED: SOD CHL 0.9%/ KCL 20MEQ 1,000 ML IV ONE ×2 (13:00→13:03)
[2020-03-02 13:38] LABS: Alcohol, Urine < 3.0 mg/dL (0-5); Amphetamine Screen, Urine NEGATIVE (NEGATIVE); Barbiturate Scree,Urine NEGATIVE (NEGATIVE); Benzodiazephine Screen, Urine NEGATIVE (NEGATIVE); Cannabinoid Screen, Urine NEGATIVE (NEGATIVE); Cocaine Screen, Urine NEGATIVE (NEGATIVE); Opiate Scree,Urine NEGATIVE (NEGATIVE); Phencyclidine Screen, Urine NEGATIVE (NEGATIVE)
[2020-03-02] MEDS ORDERED: ONDANSETRON HCL 4 MG/2 ML VIAL IV PRN (14:15)
[2020-03-02] MEDS: NICOTINE 21MG/24 HR TOPICAL PATCH TD SCH (15:19)
[2020-03-02] MEDS: LORazepam 2MG/ML-1ML VIAL IV PRN (15:19)
[2020-03-02 15:22] LABS: Magnesium 2.6 mg/dL (1.6-2.6); Phosphorus 5.4 mg/dL (2.5-4.90); Uric Acid 10.7 mg/dL (2.6-6.0)
[2020-03-02 15:30] LABS: BUN/Creatinine Ratio 17.4; Calcium 8.3 mg/dL (8.5-10.1)
[2020-03-02 15:36] LABS: Potassium 2.7 mmol/L (3.5-5.1)
[2020-03-02] MEDS: D5W/ SOD CHL 0.9%/KCL 20MEQ 1,000 ML IV SCH (15:45)
[2020-03-02] MEDS: POTASSIUM CHL 20MEQ/100ML 100 ML IV SCH ×3 (16:00→19:40)
[2020-03-02] MEDS ORDERED: SODIUM CHLORIDE 0.9% 1,000 ML IV SCH (17:12)
[2020-03-02 18:32] LABS: BUN/Creatinine Ratio 20.6; Calcium 7.9 mg/dL (8.5-10.1); Potassium 3.3 mmol/L (3.5-5.1)
[2020-03-03] VITALS (12 sets, daily range): BP systolic 93–173; BP diastolic 57–109
[2020-03-03] MEDS: LORazepam 2MG/ML-1ML VIAL IV PRN ×4 (00:59→23:18)
[2020-03-03] MEDS ORDERED: DEXTROSE (50%) 50ML SYRG IV PRN (01:15)
[2020-03-03] MEDS: D5W/ SOD CHL 0.9%/KCL 20MEQ 1,000 ML IV SCH (01:45)
[2020-03-03 03:32] LABS: Basophils # (auto) 0 10 ^3/uL (0-0.2); Basophils % (auto) 0.2 % (0.0-2.0); Eosinophils # (auto) 0 10 ^3/uL (0-0.8); Eosinophils % (auto) 0.4 % (0.0-7.0); Hematocrit 39.8 % (36.0-46.0); Hemoglobin 13.2 g/dL (12.2-16.2); Lymphocytes # (auto) 1.2 10 ^3/uL (0.4-5.4); Lymphocytes % (auto) 9.6 % (10.0-50.0); Mean Corpuscular Hemoglobin 28.6 pg (28.0-32.0); Mean Corpuscular Hgb Conc. 33.1 g/dL (32.0-36.0); Mean Corpuscular Volume 86.4 fL (80.0-100.0); Monocytes # (auto) 0.7 10 ^3/uL (0-1.3); Monocytes % (auto) 5.9 % (0.0-12.0); Neutrophils # (auto) 10.4 10 ^3/uL (1.6-8.6); Neutrophils % (auto) 83.9 % (37.0-80.0); Nucleated Red Blood Cells % 0.1 %; Platelet Count (auto) 273 10^3/uL (140-450); Red Blood Cells 4.61 10^6/uL (4.0-5.20); Red Cell Distribution Width 13.3 % (11.8-14.3); White Blood Cell 12.4 10^3/uL (4.4-10.8)
[2020-03-03 03:52] LABS: Albumin 3.3 g/dL (3.4-5.0); BUN/Creatinine Ratio 25.5; Magnesium 2.3 mg/dL (1.6-2.6); Potassium 3.2 mmol/L (3.5-5.1)
[2020-03-03 03:55] LABS: Bilirubin, Total 0.7 mg/dL (0.2-1.0); Total Protein 6.4 g/dL (6.4-8.2)
[2020-03-03] MEDS ORDERED: ACCU-CHEK COMFORT CURVE STRIP VI SCH (04:00)
[2020-03-03] MEDS: ACCU-CHEK COMFORT CURVE STRIP VI SCH ×7 (04:10→23:17)
[2020-03-03] MEDS: InsuLIN REG 1unit/0.01ml Soln (100units/ml) SC SCH ×6 (04:21→23:20)
[2020-03-03] MEDS: MORPHINE SULF INJ 2 MG/ML SYRINGE 1ML IV PRN ×2 (06:16→12:06)
[2020-03-03] MEDS ORDERED: POTASSIUM CHL 20 Meq TABLET PO ONE (07:00)
[2020-03-03] MEDS ORDERED: POTASSIUM CHL 20MEQ/100ML 100 ML IV ONE (07:00)
[2020-03-03] MEDS: NICOTINE 21MG/24 HR TOPICAL PATCH TD SCH (10:50)
[2020-03-03] MEDS: SOD CHL 0.9%/ KCL 20MEQ 1,000 ML IV SCH ×2 (10:50→20:15)
[2020-03-04] MEDS: InsuLIN REG 1unit/0.01ml Soln (100units/ml) SC SCH ×5 (04:11→21:28)
[2020-03-04] MEDS: ACCU-CHEK COMFORT CURVE STRIP VI SCH ×5 (04:12→21:24)
[2020-03-04 05:00] VITALS: BP 97/58
[2020-03-04] MEDS: SOD CHL 0.9%/ KCL 20MEQ 1,000 ML IV SCH (05:30)
[2020-03-04 06:04] LABS: Basophils # (auto) 0 10 ^3/uL (0-0.2); Basophils % (auto) 0.6 % (0.0-2.0); Eosinophils # (auto) 0.2 10 ^3/uL (0-0.8); Eosinophils % (auto) 2.6 % (0.0-7.0); Hematocrit 35.6 % (36.0-46.0); Hemoglobin 12.1 g/dL (12.2-16.2); Lymphocytes # (auto) 2.2 10 ^3/uL (0.4-5.4); Lymphocytes % (auto) 33.4 % (10.0-50.0); Mean Corpuscular Hemoglobin 29.9 pg (28.0-32.0); Mean Corpuscular Volume 87.7 fL (80.0-100.0); Monocytes # (auto) 0.4 10 ^3/uL (0-1.3); Monocytes % (auto) 5.8 % (0.0-12.0); Neutrophils # (auto) 3.8 10 ^3/uL (1.6-8.6); Neutrophils % (auto) 57.6 % (37.0-80.0); Platelet Count (auto) 231 10^3/uL (140-450); Red Blood Cells 4.06 10^6/uL (4.0-5.20); Red Cell Distribution Width 13.3 % (11.8-14.3); White Blood Cell 6.6 10^3/uL (4.4-10.8)
[2020-03-04 06:17] LABS: BUN/Creatinine Ratio 28.5; Calcium 8.2 mg/dL (8.5-10.1); Magnesium 2.4 mg/dL (1.6-2.6); Potassium 3.9 mmol/L (3.5-5.1)
[2020-03-04] MEDS: INSULIN LANTUS (GLARGINE) 1 /0.01ml (100units/ml) SC SCH (06:24)
[2020-03-04] MEDS: MORPHINE SULF INJ 2 MG/ML SYRINGE 1ML IV PRN (07:59)
[2020-03-04] MEDS: SODIUM CHLORIDE 0.9% 1,000 ML IV SCH ×2 (08:00→21:24)
[2020-03-04 09:00] VITALS: BP 98/68
[2020-03-04 09:37] VITALS: BP 115/76
[2020-03-04] MEDS: NICOTINE 21MG/24 HR TOPICAL PATCH TD SCH (09:37)
[2020-03-04] MEDS ORDERED: POLYETHYLENE GLYCOL 17 GM PWDR PO ONE (12:00)
[2020-03-04 13:00] VITALS: BP 109/76
[2020-03-04 17:00] VITALS: BP 115/74
[2020-03-04] MEDS: LORazepam 2MG/ML-1ML VIAL IV PRN (21:31)
[2020-03-04 21:56] VITALS: BP 125/78
[2020-03-05] MEDS: ACCU-CHEK COMFORT CURVE STRIP VI SCH ×4 (01:02→11:43)
[2020-03-05] MEDS: InsuLIN REG 1unit/0.01ml Soln (100units/ml) SC SCH ×4 (04:00→11:44)
[2020-03-05 05:41] VITALS: BP 112/64
[2020-03-05] MEDS: INSULIN LANTUS (GLARGINE) 1 /0.01ml (100units/ml) SC SCH (05:58)
[2020-03-05 06:44] LABS: Calcium 9.1 mg/dL (8.5-10.1); Potassium 4.1 mmol/L (3.5-5.1)
[2020-03-05 06:46] LABS: BUN/Creatinine Ratio 28.9
[2020-03-05] MEDS: LORazepam 2MG/ML-1ML VIAL IV PRN (08:13)
[2020-03-05] MEDS: NICOTINE 21MG/24 HR TOPICAL PATCH TD SCH (09:27)
[2020-03-05] MEDS: SODIUM CHLORIDE 0.9% 1,000 ML IV SCH (10:10)
[2020-03-05 11:56] VITALS: BP 112/64
== END 2020-03-05 14:15 | disposition home or self-care (01) | DRG 420 ==
LOC: ER 08:12 → TELE 08:13 → ICU WEST 13:40 → TELE-CENTR 03-03 08:56 → CENTRAL 03-04 01:35
PROVIDERS: ADMIT Nurse Practitioner Acute Care; ATTEND Internal Medicine
DX: E11.10 Type 2 diabetes mellitus with ketoacidosis without coma (principal); N17.0 Acute kidney failure with tubular necrosis; E11.65 Type 2 diabetes mellitus with hyperglycemia; E86.0 Dehydration; E87.6 Hypokalemia; E87.1 Hypo-osmolality and hyponatremia; K21.9 Gastro-esophageal reflux disease without esophagitis; F17.210 Nicotine dependence, cigarettes, uncomplicated; E87.8 Other disorders of electrolyte and fluid balance, not elsewhere classified; N18.3 Chronic kidney disease, stage 3 (moderate); F31.9 Bipolar disorder, unspecified; M19.90 Unspecified osteoarthritis, unspecified site; Z79.899 Other long term (current) drug therapy; Z79.4 Long term (current) use of insulin; Z79.82 Long term (current) use of aspirin; Z83.3 Family history of diabetes mellitus; Z80.9 Family history of malignant neoplasm, unspecified
CPT/HCPCS: 36415; 71045; 80048; 80053; 80307; 81001; 82010; 82962; 83036; 83735; 83930; 84100; 84300; 84550; 85025; 85610; 85730; 87081; 93005; 96361; 96374; 96375; G0378; J1815; J2001; J2405; J3480

== ENCOUNTER 2020-05-07 12:17 | Inpatient (IN) | payer MEDICAID ==
[~2020-05-07] VITALS: Ht 157.5 cm; Wt 62.0 kg
[2020-05-07] MEDS ORDERED: SODIUM CHLORIDE 0.9% 1,000 ML IV ONE ×3 (12:27→16:45)
[2020-05-07] MEDS ORDERED: ONDANSETRON HCL 4 MG/2 ML VIAL IV ONE ×2 (12:30→17:00)
[2020-05-07 12:57] LABS: Urine Bacteria FEW /hpf (None Seen); Urine Blood Negative /uL (Negative); Urine Hyaline Cast MANY /lpf (0 - 2); Urine Mucus FEW (None Seen); Urine Specific Gravity 1.016 (1.001-1.035); Urine WBC 1 /hpf (0 - 5)
[2020-05-07 13:26] LABS: Basophils # (auto) 0.1 10 ^3/uL (0-0.2); Basophils % (auto) 0.6 % (0.0-2.0); Eosinophils # (auto) 0.1 10 ^3/uL (0-0.8); Eosinophils % (auto) 1.1 % (0.0-7.0); Hemoglobin 16.3 g/dL (12.2-16.2); Mean Corpuscular Hemoglobin 29.1 pg (28.0-32.0); Mean Corpuscular Hgb Conc. 33.2 g/dL (32.0-36.0); Mean Corpuscular Volume 87.6 fL (80.0-100.0); Monocytes # (auto) 0.7 10 ^3/uL (0-1.3); Monocytes % (auto) 7.9 % (0.0-12.0); Neutrophils % (auto) 67.4 % (37.0-80.0); Nucleated Red Blood Cells % 0.3 %; Platelet Count (auto) 343 10^3/uL (140-450); Red Cell Distribution Width 13.9 % (11.8-14.3); White Blood Cell 8.9 10^3/uL (4.4-10.8)
[2020-05-07 13:41] LABS: Albumin 4.7 g/dL (3.4-5.0); Anion Gap 20 (5-15); Blood Urea Nitrogen 54 mg/dL (7-18); Calcium 10.1 mg/dL (8.5-10.1); Carbon Dioxide 27 mmol/L (21-32); Chloride 76 mmol/L (98-107); Glucose 337 mg/dL (74-106); Potassium 3.3 mmol/L (3.5-5.1); Sodium 123 mmol/L (136-145)
[2020-05-07 13:47] LABS: Alanine Aminotransferase 23 U/L (13-56); Alkaline Phosphatase 103 U/L (45-117); Aspartate Aminotransferase 12 U/L (15-37); BUN/Creatinine Ratio 12.2; Bilirubin, Total 0.7 mg/dL (0.2-1.0); GFR African American 14 mL/min; GFR Non-African American 11 mL/min; Total Protein 9.2 g/dL (6.4-8.2)
[2020-05-07] MEDS ORDERED: NITROGLYCERIN 0.4 MG SL TAB SL PRN (15:30)
[2020-05-07] MEDS ORDERED: MORPHINE SULF INJ 2 MG/ML SYRINGE 1ML IV PRN (15:30)
[2020-05-07] MEDS ORDERED: PANTOPRAZOLE 40 MG/10 ML VIAL INJ IV ONE (16:30)
[2020-05-07] MEDS ORDERED: ONDANSETRON HCL 4 MG/2 ML VIAL IM ONE (16:30)
[2020-05-07] MEDS ORDERED: MORPHINE SULF INJ 2 MG/ML SYRINGE 1ML IV ONE (16:30)
[2020-05-07 16:31] LABS: Amphetamine Screen, Urine NEGATIVE (NEGATIVE); Barbiturate Scree,Urine NEGATIVE (NEGATIVE); Benzodiazephine Screen, Urine NEGATIVE (NEGATIVE); Cannabinoid Screen, Urine POSITIVE (NEGATIVE); Cocaine Screen, Urine NEGATIVE (NEGATIVE)
[2020-05-07 16:39] LABS: Opiate Scree,Urine NEGATIVE (NEGATIVE); Phencyclidine Screen, Urine NEGATIVE (NEGATIVE)
[2020-05-07] MEDS ORDERED: DEXTROSE (50%) 50ML SYRG IV PRN (16:45)
[2020-05-07 16:52] VITALS: BP 103/66
[2020-05-07 17:00] VITALS: BP 103/66
[2020-05-07] MEDS: ACCU-CHEK COMFORT CURVE STRIP VI SCH ×2 (17:00→21:41)
[2020-05-07] MEDS: InsuLIN REG 1unit/0.01ml Soln (100units/ml) SC SCH (18:10)
[2020-05-07] MEDS: INSULIN LISPRO (HUMAN) 100 UNITS/ML ML SC SCH (18:10)
[2020-05-07] MEDS ORDERED: OLANZapine 5 MG TAB PO ONE (20:00)
[2020-05-07] MEDS: hydrOXYzine 25 MG TAB or CAP PO PRN (20:11)
[2020-05-07] MEDS: SOD CHL 0.9%/ KCL 40MEQ 1,000 ML IV SCH (20:16)
[2020-05-07] MEDS: ATORVASTATIN 20 MG TAB PO SCH (21:39)
[2020-05-07] MEDS: INSULIN LANTUS (GLARGINE) 1 /0.01ml (100units/ml) SC SCH (21:43)
[2020-05-07 22:00] VITALS: BP 101/68
[2020-05-07] MEDS ORDERED: traZODone HCL 50 MG TAB PO SCH ×2 (22:00)
[2020-05-07] MEDS ORDERED: InsuLIN REG 1unit/0.01ml Soln (100units/ml) SC SCH (22:00)
[2020-05-07] MEDS: ONDANSETRON HCL 4 MG/2 ML VIAL IV PRN (23:00)
[2020-05-08] VITALS (8 sets, daily range): BP systolic 89–123; BP diastolic 59–84
[2020-05-08] MEDS ORDERED: IPRATROPIUM BROM 0.5 MG/2.5ML INH SOL NEB SCH ×2 (01:45→02:00)
[2020-05-08] MEDS: SOD CHL 0.9%/ KCL 40MEQ 1,000 ML IV SCH ×3 (04:21→20:37)
[2020-05-08] MEDS: IPRATROPIUM BROM 0.5 MG/2.5ML INH SOL NEB SCH ×3 (06:00→14:32)
[2020-05-08] MEDS: ONDANSETRON HCL 4 MG/2 ML VIAL IV PRN ×2 (06:27→20:37)
[2020-05-08] MEDS: ACCU-CHEK COMFORT CURVE STRIP VI SCH ×4 (06:31→23:24)
[2020-05-08] MEDS: INSULIN LISPRO (HUMAN) 100 UNITS/ML ML SC SCH ×3 (06:32→18:44)
[2020-05-08] MEDS: InsuLIN REG 1unit/0.01ml Soln (100units/ml) SC SCH ×2 (06:32→11:30)
[2020-05-08] MEDS: ENOXAPARIN SOD 30 MG/0.3 ML SYRINGE SC SCH (09:09)
[2020-05-08] MEDS: NICOTINE 21MG/24 HR TOPICAL PATCH TD SCH (09:12)
[2020-05-08] MEDS: OLANZapine 5 MG TAB PO SCH (09:12)
[2020-05-08] MEDS: ASPirin-EC 81 mg tab PO SCH (09:13)
[2020-05-08] MEDS: HYDROcodone-ACET 5/325MG TAB PO PRN ×2 (09:14→20:37)
[2020-05-08] MEDS ORDERED: PANTOPRAZOLE 40 MG/10 ML VIAL INJ IV SCH ×2 (10:00)
[2020-05-08] MEDS ORDERED: CITALOPRAM HYDROBR 20 MG TAB PO SCH (10:00)
[2020-05-08 10:03] LABS: Basophils # (auto) 0 10 ^3/uL (0-0.2); Basophils % (auto) 0.4 % (0.0-2.0); Eosinophils # (auto) 0.1 10 ^3/uL (0-0.8); Eosinophils % (auto) 1.2 % (0.0-7.0); Hematocrit 41.5 % (36.0-46.0); Hemoglobin 13.8 g/dL (12.2-16.2); Lymphocytes # (auto) 1.3 10 ^3/uL (0.4-5.4); Lymphocytes % (auto) 21.7 % (10.0-50.0); Mean Corpuscular Hemoglobin 29.1 pg (28.0-32.0); Mean Corpuscular Hgb Conc. 33.2 g/dL (32.0-36.0); Mean Corpuscular Volume 87.7 fL (80.0-100.0); Monocytes # (auto) 0.4 10 ^3/uL (0-1.3); Monocytes % (auto) 7.4 % (0.0-12.0); Neutrophils % (auto) 69.3 % (37.0-80.0); Platelet Count (auto) 286 10^3/uL (140-450); Red Blood Cells 4.73 10^6/uL (4.0-5.20); Red Cell Distribution Width 13.9 % (11.8-14.3); White Blood Cell 5.8 10^3/uL (4.4-10.8)
[2020-05-08 10:06] LABS: Albumin 3.7 g/dL (3.4-5.0); Calcium 8.5 mg/dL (8.5-10.1); Potassium 3.4 mmol/L (3.5-5.1)
[2020-05-08 10:10] LABS: BUN/Creatinine Ratio 22.3; Bilirubin, Total 0.5 mg/dL (0.2-1.0); Phosphorus 2.9 mg/dL (2.5-4.90); Total Protein 7.2 g/dL (6.4-8.2)
[2020-05-08 10:19] LABS: INR 0.98 (0.9-1.15); Partial Thromboplastin Time 29.1 sec (23.64-32.05)
[2020-05-08] MEDS ORDERED: DEXTROSE (50%) 50ML SYRG IV PRN (13:30)
[2020-05-08] MEDS ORDERED: IPRATROPIUM BROM 0.5 MG/2.5ML INH SOL NEB PRN (15:15)
[2020-05-08] MEDS: ATORVASTATIN 20 MG TAB PO SCH (22:00)
[2020-05-08] MEDS: INSULIN LANTUS (GLARGINE) 1 /0.01ml (100units/ml) SC SCH (23:22)
[2020-05-09] VITALS (7 sets, daily range): BP systolic 83–141; BP diastolic 36–73
[2020-05-09] MEDS: hydrOXYzine 25 MG TAB or CAP PO PRN ×2 (00:45→20:30)
[2020-05-09] MEDS: InsuLIN REG 1unit/0.01ml Soln (100units/ml) SC SCH ×6 (00:53→22:00)
[2020-05-09] MEDS: ACCU-CHEK COMFORT CURVE STRIP VI SCH ×7 (03:40→22:00)
[2020-05-09] MEDS: SOD CHL 0.9%/ KCL 40MEQ 1,000 ML IV SCH ×2 (04:07→12:45)
[2020-05-09] MEDS: INSULIN LISPRO (HUMAN) 100 UNITS/ML ML SC SCH ×3 (06:36→17:00)
[2020-05-09] MEDS ORDERED: DEXTROSE (50%) 50ML SYRG IV PRN ×2 (06:45)
[2020-05-09] MEDS: ONDANSETRON HCL 4 MG/2 ML VIAL IV PRN ×3 (06:58→20:30)
[2020-05-09] MEDS: NICOTINE 21MG/24 HR TOPICAL PATCH TD SCH (10:00)
[2020-05-09] MEDS: ASPirin-EC 81 mg tab PO SCH (10:29)
[2020-05-09] MEDS: ENOXAPARIN SOD 30 MG/0.3 ML SYRINGE SC SCH (10:29)
[2020-05-09] MEDS: OLANZapine 5 MG TAB PO SCH (10:29)
[2020-05-09] MEDS: PANTOPRAZOLE 40 MG TAB PO SCH (10:30)
[2020-05-09 12:42] LABS: Calcium 8.4 mg/dL (8.5-10.1)
[2020-05-09] MEDS ORDERED: OLAN1TAB7 PO (13:45)
[2020-05-09] MEDS: INSULIN LANTUS (GLARGINE) 1 /0.01ml (100units/ml) SC SCH (22:00)
[2020-05-09] MEDS: ATORVASTATIN 20 MG TAB PO SCH (22:35)
[2020-05-10] MEDS ORDERED: TEMAZEPAM 15 MG CAP PO PRN (00:45)
[2020-05-10] MEDS: INSULIN LISPRO (HUMAN) 100 UNITS/ML ML SC SCH ×2 (07:00→11:30)
[2020-05-10] MEDS: InsuLIN REG 1unit/0.01ml Soln (100units/ml) SC SCH ×2 (07:02→11:30)
[2020-05-10] MEDS: ONDANSETRON HCL 4 MG/2 ML VIAL IV PRN (07:04)
[2020-05-10] MEDS: ACCU-CHEK COMFORT CURVE STRIP VI SCH ×2 (07:09→11:30)
[2020-05-10 09:00] VITALS: BP 109/71
[2020-05-10] MEDS ORDERED: ENOXAPARIN SOD 40 MG/0.4 ML SYRINGE SC SCH (10:00)
[2020-05-10] MEDS: NICOTINE 21MG/24 HR TOPICAL PATCH TD SCH (10:00)
[2020-05-10] MEDS: OLANZapine 5 MG TAB PO SCH (10:03)
[2020-05-10] MEDS: ASPirin-EC 81 mg tab PO SCH (10:03)
[2020-05-10] MEDS: PANTOPRAZOLE 40 MG TAB PO SCH (10:03)
[2020-05-10 10:18] LABS: Calcium 9.2 mg/dL (8.5-10.1); Potassium 4.4 mmol/L (3.5-5.1)
[2020-05-10 10:21] LABS: BUN/Creatinine Ratio 29.5
[2020-05-10 13:00] VITALS: BP 125/68
== END 2020-05-10 13:50 | disposition home or self-care (01) | DRG 422 ==
LOC: ER 12:17 → TELE 12:18 → TELE-EAST 16:17 → TELE-CENTR 18:36 → CENTRAL 05-08 13:41
PROVIDERS: ADMIT Hospitalist; ATTEND Internal Medicine
DX: E86.0 Dehydration (principal); N17.0 Acute kidney failure with tubular necrosis; E11.22 Type 2 diabetes mellitus with diabetic chronic kidney disease; I95.9 Hypotension, unspecified; D75.1 Secondary polycythemia; E87.8 Other disorders of electrolyte and fluid balance, not elsewhere classified; F11.20 Opioid dependence, uncomplicated; E87.1 Hypo-osmolality and hyponatremia; K29.70 Gastritis, unspecified, without bleeding; N18.4 Chronic kidney disease, stage 4 (severe); R45.851 Suicidal ideations; E87.6 Hypokalemia; J44.9 Chronic obstructive pulmonary disease, unspecified; F32.9 Major depressive disorder, single episode, unspecified; E79.0 Hyperuricemia without signs of inflammatory arthritis and tophaceous disease; F41.9 Anxiety disorder, unspecified; E78.5 Hyperlipidemia, unspecified; F12.10 Cannabis abuse, uncomplicated; F17.210 Nicotine dependence, cigarettes, uncomplicated; G89.29 Other chronic pain; Z79.4 Long term (current) use of insulin; Z79.82 Long term (current) use of aspirin; Z83.3 Family history of diabetes mellitus; R55 Syncope and collapse; K21.9 Gastro-esophageal reflux disease without esophagitis; T40.7X5A Adverse effect of cannabis (derivatives), initial encounter; Y92.89 Other specified places as the place of occurrence of the external cause
CPT/HCPCS: 36415; 71045; 74176; 80048; 80053; 80307; 81001; 82962; 83735; 84100; 84484; 85025; 85610; 85730; 94640; C9113; G0378; J1815; J2405

== ENCOUNTER 2021-02-24 18:25 | Inpatient (IN) | payer MEDICAID ==
[~2021-02-24] VITALS: Ht 157.5 cm; Wt 66.5 kg
[~2021-02-24 18:25] MED LIST changes: -ASPI-378 PO; -ESCI10TA PO; -ESCI5TAB PO; -NIC21P TOP; +OLAN1TAB7 PO; +ONDA-144 PO; +PANT40TA2 PO; +SUCR1TAB22 OR; -TRAZ50TA2 PO
[2021-02-24] MEDS ORDERED: SODIUM CHLORIDE 0.9% 1,000 ML IV ONE ×2 (18:45→20:45)
[2021-02-24] MEDS ORDERED: ONDANSETRON HCL 4 MG/2 ML VIAL IV ONE (19:15)
[2021-02-24] MEDS ORDERED: InsuLIN REG 1unit/0.01ml Soln (100units/ml) IV ONE (19:15)
[2021-02-24 20:02] LABS: Basophils # (auto) 0 10 ^3/uL (0-0.2); Basophils % (auto) 0.2 % (0.0-2.0); Eosinophils # (auto) 0 10 ^3/uL (0-0.8); Eosinophils % (auto) 0.2 % (0.0-7.0); Hematocrit 50.9 % (36.0-46.0); Hemoglobin 17.4 g/dL (12.2-16.2); Lymphocytes # (auto) 1.6 10 ^3/uL (0.4-5.4); Mean Corpuscular Hemoglobin 29.8 pg (28.0-32.0); Mean Corpuscular Hgb Conc. 34.2 g/dL (32.0-36.0); Mean Corpuscular Volume 87.1 fL (80.0-100.0); Monocytes # (auto) 0.8 10 ^3/uL (0-1.3); Monocytes % (auto) 6.6 % (0.0-12.0); Neutrophils # (auto) 10.1 10 ^3/uL (1.6-8.6); Platelet Count (auto) 335 10^3/uL (140-450); Red Blood Cells 5.84 10^6/uL (4.0-5.20); Red Cell Distribution Width 12.8 % (11.8-14.3); White Blood Cell 12.7 10^3/uL (4.4-10.8)
[2021-02-24 20:11] LABS: Albumin 5.5 g/dL (3.4-5.0); Anion Gap 24 (5-15); Blood Urea Nitrogen 59 mg/dL (7-18); Calcium 10.5 mg/dL (8.5-10.1); Carbon Dioxide 30 mmol/L (21-32); Chloride 64 mmol/L (98-107); Potassium 3.9 mmol/L (3.5-5.1)
[2021-02-24 20:15] LABS: Lactic Acid w/Reflex 2.3 mmol/L (0.4-2.0)
[2021-02-24 20:16] LABS: Alanine Aminotransferase 41 U/L (13-56); Alkaline Phosphatase 147 U/L (45-117); Aspartate Aminotransferase 36 U/L (15-37); BUN/Creatinine Ratio 8.5; Bilirubin, Total 0.6 mg/dL (0.2-1.0); GFR African American 8 mL/min; GFR Non-African American 7 mL/min; Total Protein 10.2 g/dL (6.4-8.2)
[2021-02-24 20:18] LABS: Magnesium 3.1 mg/dL (1.6-2.6); Phosphorus 8.7 mg/dL (2.5-4.90)
[2021-02-24 20:21] LABS: Glucose 475 mg/dL (74-106); Sodium 118 mmol/L (136-145)
[2021-02-24] MEDS ORDERED: MORPHINE SULF INJ 2 MG/ML SYRINGE 1ML IV PRN (21:15)
[2021-02-24] MEDS ORDERED: InsuLIN R (HUMAN) 100 UNITS in SODIUM CHL 0.9% 99 ML IV SCH (21:15)
[2021-02-24] MEDS ORDERED: NITROGLYCERIN 0.4 MG SL TAB SL PRN (21:15)
[2021-02-24] MEDS ORDERED: DEXTROSE (50%) 50ML SYRG IV PRN (21:15)
[2021-02-24] MEDS ORDERED: INSULIN LANTUS (GLARGINE) 1 /0.01ml (100units/ml) SC ONE (21:15)
[2021-02-24] MEDS: SODIUM CHLORIDE 0.9% 1,000 ML IV SCH ×2 (21:15→23:15)
[2021-02-24] MEDS: ACCU-CHEK COMFORT CURVE STRIP VI SCH (22:30)
[2021-02-24] MEDS ORDERED: InsuLIN REG 1unit/0.01ml Soln (100units/ml) ONE (22:46)
[2021-02-24 22:57] LABS: Calcium 9.6 mg/dL (8.5-10.1); Potassium 3.8 mmol/L (3.5-5.1)
[2021-02-24] MEDS: ONDANSETRON HCL 4 MG/2 ML VIAL IV PRN (23:41)
[2021-02-25] MEDS: ACCU-CHEK COMFORT CURVE STRIP VI SCH ×14 (00:25→21:49)
[2021-02-25] MEDS ORDERED: SODIUM CHLORIDE 0.9% 1,000 ML IV SCH (01:15)
[2021-02-25] MEDS: SODIUM CHLORIDE 0.9% 1,000 ML IV SCH ×3 (03:27→16:51)
[2021-02-25 04:47] LABS: Potassium 3.1 mmol/L (3.5-5.1)
[2021-02-25] MEDS: ONDANSETRON HCL 4 MG/2 ML VIAL IV PRN (07:46)
[2021-02-25 09:34] LABS: BUN/Creatinine Ratio 13.7; Calcium 7.9 mg/dL (8.5-10.1)
[2021-02-25 09:52] LABS: Potassium 2.7 mmol/L (3.5-5.1)
[2021-02-25] MEDS: D5W/SOD CHLO 0.9% 1,000 ML IV SCH ×2 (10:15→18:06)
[2021-02-25] MEDS ORDERED: POTASSIUM CHLORIDE 40 MEQ, LIDOCAINE 1% (LOCAL ANESTH.) 4 ML in SODIUM CHL 0.9% 250 ML IV ONE (10:15)
[2021-02-25] MEDS: HYDROcodone-ACET 5/325MG TAB PO PRN (13:22)
[2021-02-25 13:56] LABS: Urine Bacteria FEW /hpf (None Seen); Urine Blood 2+ /uL (Negative); Urine Specific Gravity 1.019 (1.001-1.035); Urine WBC 2 /hpf (0 - 5)
[2021-02-25 14:14] LABS: Amphetamine Screen, Urine NEGATIVE (NEGATIVE); Barbiturate Scree,Urine NEGATIVE (NEGATIVE); Benzodiazephine Screen, Urine NEGATIVE (NEGATIVE); Cannabinoid Screen, Urine POSITIVE (NEGATIVE); Cocaine Screen, Urine NEGATIVE (NEGATIVE); Phencyclidine Screen, Urine NEGATIVE (NEGATIVE)
[2021-02-25 14:21] LABS: Opiate Scree,Urine NEGATIVE (NEGATIVE)
[2021-02-25 16:30] LABS: BUN/Creatinine Ratio 18.3; Calcium 7.5 mg/dL (8.5-10.1)
[2021-02-25] MEDS ORDERED: DEXTROSE (50%) 50ML SYRG IV PRN (16:45)
[2021-02-25] MEDS: InsuLIN REG 1unit/0.01ml Soln (100units/ml) SC SCH ×2 (17:00→21:51)
[2021-02-25 17:57] VITALS: BP 126/78
[2021-02-25 18:19] VITALS: BP 126/78
[2021-02-25 22:00] VITALS: BP 91/68
[2021-02-25] MEDS ORDERED: INSULIN LANTUS (GLARGINE) 1 /0.01ml (100units/ml) SC SCH (22:00)
[2021-02-26] MEDS: D5W/SOD CHLO 0.9% 1,000 ML IV SCH (03:52)
[2021-02-26] MEDS: HYDROcodone-ACET 5/325MG TAB PO PRN (04:03)
[2021-02-26] MEDS: ONDANSETRON HCL 4 MG/2 ML VIAL IV PRN ×2 (04:03→16:33)
[2021-02-26] MEDS: SODIUM CHLORIDE 0.9% 1,000 ML IV SCH ×2 (06:05→09:50)
[2021-02-26] MEDS: ACCU-CHEK COMFORT CURVE STRIP VI SCH ×4 (06:50→21:55)
[2021-02-26] MEDS: InsuLIN REG 1unit/0.01ml Soln (100units/ml) SC SCH ×4 (06:51→21:52)
[2021-02-26] MEDS: MORPHINE SULF INJ 2 MG/ML SYRINGE 1ML IV PRN ×3 (07:01→21:34)
[2021-02-26 08:00] VITALS: BP 169/68
[2021-02-26] MEDS ORDERED: POTASSIUM CHL 20 Meq TABLET PO ONE (08:45)
[2021-02-26 09:12] VITALS: BP 169/98
[2021-02-26] MEDS: PANTOPRAZOLE 40 MG TAB PO SCH (09:56)
[2021-02-26] MEDS: ENOXAPARIN SOD 30 MG/0.3 ML SYRINGE SC SCH (09:57)
[2021-02-26] MEDS: amLODIPine BESYLATE 5 MG TAB PO SCH (10:00)
[2021-02-26] MEDS: INSULIN LANTUS (GLARGINE) 1 /0.01ml (100units/ml) SC SCH (10:12)
[2021-02-26 12:27] LABS: BUN/Creatinine Ratio 27.7; Calcium 8.5 mg/dL (8.5-10.1)
[2021-02-26 12:29] LABS: Magnesium 2.4 mg/dL (1.6-2.6); Phosphorus 2.1 mg/dL (2.5-4.90)
[2021-02-26 12:55] VITALS: BP 99/58
[2021-02-26] MEDS ORDERED: POTASSIUM PHOSPHATE 44 MEQ in D5W 5% 250 ML IV ONE (13:30)
[2021-02-26] MEDS ORDERED: METOPROLOL SUCCINATE XL 50 MG TAB PO ONE (13:30)
[2021-02-26 17:00] VITALS: BP 112/76
[2021-02-26 22:00] VITALS: BP 99/57
[2021-02-27 05:00] VITALS: BP 95/54
[2021-02-27] MEDS: InsuLIN REG 1unit/0.01ml Soln (100units/ml) SC SCH ×4 (06:51→21:42)
[2021-02-27] MEDS: ONDANSETRON HCL 4 MG/2 ML VIAL IV PRN (06:52)
[2021-02-27] MEDS: MORPHINE SULF INJ 2 MG/ML SYRINGE 1ML IV PRN ×2 (06:52→20:23)
[2021-02-27] MEDS: ACCU-CHEK COMFORT CURVE STRIP VI SCH ×4 (07:00→21:47)
[2021-02-27 07:39] LABS: Calcium 7.9 mg/dL (8.5-10.1); Potassium 3.1 mmol/L (3.5-5.1)
[2021-02-27 07:43] LABS: BUN/Creatinine Ratio 25.4; Phosphorus 3.7 mg/dL (2.5-4.90)
[2021-02-27 09:00] VITALS: BP 99/66
[2021-02-27] MEDS ORDERED: POTASSIUM CHL 20 Meq TABLET PO ONE (09:00)
[2021-02-27] MEDS: INSULIN LANTUS (GLARGINE) 1 /0.01ml (100units/ml) SC SCH (10:00)
[2021-02-27] MEDS ORDERED: METOPROLOL SUCCINATE XL 50 MG TAB PO SCH (10:00)
[2021-02-27] MEDS: PANTOPRAZOLE 40 MG TAB PO SCH (10:45)
[2021-02-27] MEDS: ENOXAPARIN SOD 30 MG/0.3 ML SYRINGE SC SCH (10:46)
[2021-02-27] MEDS: amLODIPine BESYLATE 5 MG TAB PO SCH (10:53)
[2021-02-27 13:00] VITALS: BP 98/62
[2021-02-27 16:36] VITALS: BP 104/64
[2021-02-27 22:00] VITALS: BP 90/52
[2021-02-28] MEDS: MORPHINE SULF INJ 2 MG/ML SYRINGE 1ML IV PRN ×5 (04:52→23:47)
[2021-02-28] MEDS: ONDANSETRON HCL 4 MG/2 ML VIAL IV PRN (04:59)
[2021-02-28 05:00] VITALS: BP 98/63
[2021-02-28] MEDS: InsuLIN REG 1unit/0.01ml Soln (100units/ml) SC SCH ×4 (06:10→21:21)
[2021-02-28] MEDS: ACCU-CHEK COMFORT CURVE STRIP VI SCH ×4 (06:26→21:35)
[2021-02-28] MEDS: PANTOPRAZOLE 40 MG TAB PO SCH (08:02)
[2021-02-28] MEDS: amLODIPine BESYLATE 5 MG TAB PO SCH (08:03)
[2021-02-28] MEDS: ENOXAPARIN SOD 30 MG/0.3 ML SYRINGE SC SCH (08:04)
[2021-02-28] MEDS: INSULIN LANTUS (GLARGINE) 1 /0.01ml (100units/ml) SC SCH (08:14)
[2021-02-28 08:55] VITALS: BP 154/92
[2021-02-28 13:23] VITALS: BP 130/72
[2021-02-28 16:55] VITALS: BP 80/48
[2021-02-28] MEDS: DULoxetine HCL 30 MG CAP PO SCH (21:34)
[2021-02-28] MEDS: OLANZapine 5 MG TAB PO SCH (21:34)
[2021-02-28] MEDS: PREGABALIN CAPSULE 75 MG CAP PO SCH (21:34)
[2021-02-28 22:00] VITALS: BP 116/53
[2021-03-01 05:00] VITALS: BP 109/65
[2021-03-01 05:51] LABS: Basophils # (auto) 0 10 ^3/uL (0-0.2); Basophils % (auto) 0.6 % (0.0-2.0); Eosinophils # (auto) 0.2 10 ^3/uL (0-0.8); Eosinophils % (auto) 3.6 % (0.0-7.0); Hemoglobin 12.3 g/dL (12.2-16.2); Lymphocytes # (auto) 2.8 10 ^3/uL (0.4-5.4); Lymphocytes % (auto) 44.4 % (10.0-50.0); Mean Corpuscular Hemoglobin 30.3 pg (28.0-32.0); Mean Corpuscular Hgb Conc. 34.3 g/dL (32.0-36.0); Mean Corpuscular Volume 88.5 fL (80.0-100.0); Monocytes # (auto) 0.4 10 ^3/uL (0-1.3); Monocytes % (auto) 5.5 % (0.0-12.0); Neutrophils # (auto) 2.9 10 ^3/uL (1.6-8.6); Neutrophils % (auto) 45.9 % (37.0-80.0); Nucleated Red Blood Cells % 0.1 %; Platelet Count (auto) 206 10^3/uL (140-450); Red Blood Cells 4.07 10^6/uL (4.0-5.20); Red Cell Distribution Width 12.9 % (11.8-14.3); White Blood Cell 6.4 10^3/uL (4.4-10.8)
[2021-03-01 06:27] LABS: Albumin 3.3 g/dL (3.4-5.0); Calcium 8.5 mg/dL (8.5-10.1); Potassium 3.7 mmol/L (3.5-5.1)
[2021-03-01 06:34] LABS: BUN/Creatinine Ratio 21.6; Bilirubin, Total 0.3 mg/dL (0.2-1.0); Total Protein 6.2 g/dL (6.4-8.2)
[2021-03-01] MEDS: InsuLIN REG 1unit/0.01ml Soln (100units/ml) SC SCH ×2 (06:44→11:30)
[2021-03-01] MEDS: ACCU-CHEK COMFORT CURVE STRIP VI SCH ×2 (06:49→11:30)
[2021-03-01 09:00] VITALS: BP 124/50
[2021-03-01] MEDS: INSULIN LANTUS (GLARGINE) 1 /0.01ml (100units/ml) SC SCH (10:00)
[2021-03-01] MEDS ORDERED: PREG150C PO ×2 (10:57→10:58)
[2021-03-01] MEDS ORDERED: DULO30CA84 PO (10:57)
[2021-03-01] MEDS ORDERED: OLAN1TAB7 PO (10:57)
[2021-03-01] MEDS: ENOXAPARIN SOD 30 MG/0.3 ML SYRINGE SC SCH (11:06)
[2021-03-01] MEDS: OLANZapine 5 MG TAB PO SCH (11:06)
[2021-03-01] MEDS: DULoxetine HCL 30 MG CAP PO SCH (11:07)
[2021-03-01] MEDS: PANTOPRAZOLE 40 MG TAB PO SCH (11:07)
[2021-03-01] MEDS: amLODIPine BESYLATE 5 MG TAB PO SCH (11:08)
[2021-03-01] MEDS: PREGABALIN CAPSULE 75 MG CAP PO SCH (11:09)
[2021-03-01 11:46] VITALS: BP 124/50
[2021-03-01 13:00] VITALS: BP 127/57
== END 2021-03-01 15:45 | disposition home or self-care (01) | DRG 420 ==
LOC: ER 18:25 → TELE 21:04 → TELE-WESTW 02-25 17:52 → WEST WING 02-27 13:42
PROVIDERS: ADMIT Nurse Practitioner; ATTEND Internal Medicine
PROC: 05H933Z Insertion of Infusion Device into Right Brachial Vein, Percutaneous Approach (ICD-10-PCS; principal; 2021-02-25)
PROC: B54MZZA Ultrasonography of Right Upper Extremity Veins, Guidance (ICD-10-PCS; 2021-02-25)
DX: E11.10 Type 2 diabetes mellitus with ketoacidosis without coma (principal); N17.0 Acute kidney failure with tubular necrosis; E87.6 Hypokalemia; E86.0 Dehydration; N18.31 Chronic kidney disease, stage 3a; E78.5 Hyperlipidemia, unspecified; E11.22 Type 2 diabetes mellitus with diabetic chronic kidney disease; F12.90 Cannabis use, unspecified, uncomplicated; K21.9 Gastro-esophageal reflux disease without esophagitis; M54.9 Dorsalgia, unspecified; E11.42 Type 2 diabetes mellitus with diabetic polyneuropathy; G89.4 Chronic pain syndrome; F31.81 Bipolar II disorder; F41.9 Anxiety disorder, unspecified; F17.210 Nicotine dependence, cigarettes, uncomplicated; I12.9 Hypertensive chronic kidney disease with stage 1 through stage 4 chronic kidney disease, or unspecified chronic kidney disease; Z20.822 Contact with and (suspected) exposure to COVID-19; Z79.4 Long term (current) use of insulin; Z82.49 Family history of ischemic heart disease and other diseases of the circulatory system; Z83.3 Family history of diabetes mellitus
CPT/HCPCS: 36415; 36600; 71045; 80048; 80053; 80307; 81001; 82010; 82805; 82962; 83605; 83690; 83735; 83930; 84100; 84439; 84443; 84484; 85025; 87040; 87081; 87426; 93005; 96361; 96365; 96375; 99291; G0378; J1815; J2001; J2405; J7042; J7060

== ENCOUNTER 2021-04-12 18:50 | Inpatient (IN) | payer MEDICAID ==
[~2021-04-12] VITALS: Ht 157.5 cm; Wt 73.5 kg
[2021-04-12] VITALS (7 sets, daily range): BP systolic 77–148; BP diastolic 41–91
[~2021-04-12 18:50] MED LIST changes: +DULO30CA84 PO; -HYDR25CA PO; +PREG150C PO
[2021-04-12 19:32] LABS: Basophils # (auto) 0.1 10 ^3/uL (0-0.2); Basophils % (auto) 0.5 % (0.0-2.0); Eosinophils # (auto) 0 10 ^3/uL (0-0.8); Eosinophils % (auto) 0.1 % (0.0-7.0); Hematocrit 39.4 % (36.0-46.0); Hemoglobin 13.5 g/dL (12.2-16.2); Lymphocytes # (auto) 1.1 10 ^3/uL (0.4-5.4); Lymphocytes % (auto) 6.1 % (10.0-50.0); Mean Corpuscular Hemoglobin 30.4 pg (28.0-32.0); Mean Corpuscular Hgb Conc. 34.3 g/dL (32.0-36.0); Mean Corpuscular Volume 88.9 fL (80.0-100.0); Monocytes # (auto) 1.2 10 ^3/uL (0-1.3); Monocytes % (auto) 6.6 % (0.0-12.0); Neutrophils # (auto) 15.6 10 ^3/uL (1.6-8.6); Neutrophils % (auto) 86.7 % (37.0-80.0); Nucleated Red Blood Cells % 0.1 %; Platelet Count (auto) 373 10^3/uL (140-450); Red Blood Cells 4.44 10^6/uL (4.0-5.20); Red Cell Distribution Width 13.6 % (11.8-14.3)
[2021-04-12 19:47] LABS: Magnesium 2.8 mg/dL (1.6-2.6); Phosphorus 4.9 mg/dL (2.5-4.90)
[2021-04-12 19:53] LABS: Albumin 4.3 g/dL (3.4-5.0); Calcium 10.8 mg/dL (8.5-10.1); Potassium 3.8 mmol/L (3.5-5.1)
[2021-04-12 19:56] LABS: Bilirubin, Total 0.8 mg/dL (0.2-1.0); Total Protein 9.8 g/dL (6.4-8.2)
[2021-04-12] MEDS ORDERED: ONDANSETRON HCL 4 MG/2 ML VIAL IV ONE (20:00)
[2021-04-12] MEDS ORDERED: SODIUM CHLORIDE 0.9% 1,000 ML IV ONE (20:00)
[2021-04-12] MEDS ORDERED: InsuLIN REG 1unit/0.01ml Soln (100units/ml) ONE ×2 (20:18→20:36)
[2021-04-12] MEDS ORDERED: DEXTROSE (50%) 50ML SYRG IV PRN ×2 (20:30→21:30)
[2021-04-12] MEDS ORDERED: InsuLIN R (HUMAN) 100 UNITS in SODIUM CHL 0.9% 99 ML IV SCH ×2 (20:30→21:30)
[2021-04-12] MEDS ORDERED: InsuLIN REG 1unit/0.01ml Soln (100units/ml) IV ONE (20:30)
[2021-04-12] MEDS ORDERED: CLINDAMYCIN 600MG IV 50 ML IV ONE (20:30)
[2021-04-12] MEDS ORDERED: ACCU-CHEK COMFORT CURVE STRIP VI SCH (21:00)
[2021-04-12] MEDS ORDERED: MORPHINE SULF INJ 2 MG/ML SYRINGE 1ML IV PRN (21:30)
[2021-04-12] MEDS ORDERED: INSULIN LANTUS (GLARGINE) 1 /0.01ml (100units/ml) SC ONE (21:30)
[2021-04-12] MEDS ORDERED: NITROGLYCERIN 0.4 MG SL TAB SL PRN (21:30)
[2021-04-12] MEDS ORDERED: cefTRIAXone 1GM/50ML D5W 50 ML IV ONE (21:30)
[2021-04-12] MEDS ORDERED: ACETAMINOPHEN 500 MG TAB PO ONE (21:45)
[2021-04-12] MEDS ORDERED: TEMAZEPAM 15 MG CAP PO PRN (22:00)
[2021-04-12 22:11] LABS: Calcium 9.6 mg/dL (8.5-10.1); Potassium 3.5 mmol/L (3.5-5.1)
[2021-04-12] MEDS: ATORVASTATIN 20 MG TAB PO SCH (22:14)
[2021-04-12] MEDS: SODIUM CHLORIDE 0.9% 1,000 ML IV SCH ×2 (22:16→22:34)
[2021-04-12 22:30] LABS: Urine Bacteria FEW /hpf (None Seen); Urine Blood 2+ /uL (Negative); Urine Mucus FEW (None Seen); Urine WBC 1 /hpf (0 - 5)
[2021-04-12] MEDS: ACCU-CHEK COMFORT CURVE STRIP VI SCH ×3 (22:30→23:29)
[2021-04-12 23:21] LABS: Amphetamine Screen, Urine NEGATIVE (NEGATIVE); Barbiturate Scree,Urine NEGATIVE (NEGATIVE); Benzodiazephine Screen, Urine NEGATIVE (NEGATIVE); Cannabinoid Screen, Urine POSITIVE (NEGATIVE); Cocaine Screen, Urine NEGATIVE (NEGATIVE); Opiate Scree,Urine NEGATIVE (NEGATIVE); Phencyclidine Screen, Urine NEGATIVE (NEGATIVE)
[2021-04-13] VITALS (88 sets, daily range): BP systolic 78–181; BP diastolic 43–124
[2021-04-13] MEDS ORDERED: SODIUM CHLORIDE 0.9% 1,000 ML IV SCH (01:30)
[2021-04-13] MEDS: ACCU-CHEK COMFORT CURVE STRIP VI SCH ×7 (01:42→20:17)
[2021-04-13] MEDS: SODIUM CHLORIDE 0.9% 1,000 ML IV SCH ×4 (02:32→23:30)
[2021-04-13] MEDS: ONDANSETRON HCL 4 MG/2 ML VIAL IV PRN ×2 (03:32→12:57)
[2021-04-13 03:52] LABS: Basophils # (auto) 0.1 10 ^3/uL (0-0.2); Basophils % (auto) 0.7 % (0.0-2.0); Eosinophils # (auto) 0.1 10 ^3/uL (0-0.8); Eosinophils % (auto) 0.3 % (0.0-7.0); Hematocrit 36.1 % (36.0-46.0); Hemoglobin 12.4 g/dL (12.2-16.2); Lymphocytes # (auto) 1.8 10 ^3/uL (0.4-5.4); Lymphocytes % (auto) 10.2 % (10.0-50.0); Mean Corpuscular Hemoglobin 30.1 pg (28.0-32.0); Mean Corpuscular Hgb Conc. 34.3 g/dL (32.0-36.0); Mean Corpuscular Volume 87.6 fL (80.0-100.0); Monocytes % (auto) 5.8 % (0.0-12.0); Neutrophils # (auto) 14.9 10 ^3/uL (1.6-8.6); Nucleated Red Blood Cells % 0.1 %; Platelet Count (auto) 309 10^3/uL (140-450); Red Blood Cells 4.12 10^6/uL (4.0-5.20); Red Cell Distribution Width 13.7 % (11.8-14.3)
[2021-04-13 04:08] LABS: Albumin 3.5 g/dL (3.4-5.0); Calcium 9.2 mg/dL (8.5-10.1); Potassium 3.3 mmol/L (3.5-5.1)
[2021-04-13 04:12] LABS: BUN/Creatinine Ratio 15.8; Bilirubin, Total 0.3 mg/dL (0.2-1.0); Total Protein 8.2 g/dL (6.4-8.2)
[2021-04-13] MEDS ORDERED: POTASSIUM CHL 20 Meq TABLET PO ONE (04:45)
[2021-04-13] MEDS ORDERED: HYDROcodone-ACET 7.5/325MG TAB PO ONE (04:45)
[2021-04-13] MEDS: CLINDAMYCIN 600MG IV 50 ML IV SCH ×3 (05:06→21:30)
[2021-04-13] MEDS: cefTRIAXone 1GM/50ML D5W 50 ML IV SCH (07:49)
[2021-04-13] MEDS: InsuLIN REG 1unit/0.01ml Soln (100units/ml) SC SCH ×4 (07:49→20:16)
[2021-04-13] MEDS: amLODIPine BESYLATE 5 MG TAB PO SCH (10:00)
[2021-04-13] MEDS: PANTOPRAZOLE 40 MG TAB PO SCH (10:07)
[2021-04-13] MEDS: INSULIN LANTUS (GLARGINE) 1 /0.01ml (100units/ml) SC SCH (10:11)
[2021-04-13 10:39] LABS: Calcium 8.6 mg/dL (8.5-10.1); Potassium 3.4 mmol/L (3.5-5.1)
[2021-04-13 10:41] LABS: BUN/Creatinine Ratio 19.5
[2021-04-13] MEDS ORDERED: POTASSIUM EFFERVESENT TAB 25 MEQ GT ONE (12:00)
[2021-04-13 14:56] LABS: Calcium 8.7 mg/dL (8.5-10.1); Potassium 4.1 mmol/L (3.5-5.1)
[2021-04-13 14:58] LABS: BUN/Creatinine Ratio 21.9
[2021-04-13] MEDS ORDERED: hydrALAZINE HCL 20 MG/ML VL IV PRN (15:30)
[2021-04-13] MEDS: HYDROcodone-ACET 5/325MG TAB PO PRN ×2 (16:51→21:16)
[2021-04-13] MEDS: ATORVASTATIN 20 MG TAB PO SCH (21:30)
[2021-04-14] VITALS (9 sets, daily range): BP systolic 95–143; BP diastolic 58–90
[2021-04-14] MEDS: InsuLIN REG 1unit/0.01ml Soln (100units/ml) SC SCH ×6 (00:03→20:01)
[2021-04-14] MEDS: ACCU-CHEK COMFORT CURVE STRIP VI SCH ×6 (00:04→19:56)
[2021-04-14 04:00] LABS: Basophils # (auto) 0.1 10 ^3/uL (0-0.2); Basophils % (auto) 0.8 % (0.0-2.0); Eosinophils # (auto) 0.2 10 ^3/uL (0-0.8); Eosinophils % (auto) 2.3 % (0.0-7.0); Hematocrit 33.1 % (36.0-46.0); Hemoglobin 11.3 g/dL (12.2-16.2); Lymphocytes # (auto) 2.8 10 ^3/uL (0.4-5.4); Lymphocytes % (auto) 25.6 % (10.0-50.0); Mean Corpuscular Hemoglobin 30.8 pg (28.0-32.0); Mean Corpuscular Hgb Conc. 34.1 g/dL (32.0-36.0); Mean Corpuscular Volume 90.2 fL (80.0-100.0); Monocytes # (auto) 0.7 10 ^3/uL (0-1.3); Monocytes % (auto) 6.1 % (0.0-12.0); Neutrophils # (auto) 7.1 10 ^3/uL (1.6-8.6); Neutrophils % (auto) 65.2 % (37.0-80.0); Platelet Count (auto) 255 10^3/uL (140-450); Red Blood Cells 3.66 10^6/uL (4.0-5.20); Red Cell Distribution Width 14.1 % (11.8-14.3); White Blood Cell 10.8 10^3/uL (4.4-10.8)
[2021-04-14 04:23] LABS: Potassium 3.6 mmol/L (3.5-5.1)
[2021-04-14] MEDS: ONDANSETRON HCL 4 MG/2 ML VIAL IV PRN (05:51)
[2021-04-14] MEDS: HYDROcodone-ACET 5/325MG TAB PO PRN ×2 (05:52→18:15)
[2021-04-14] MEDS: CLINDAMYCIN 600MG IV 50 ML IV SCH ×3 (06:00→21:41)
[2021-04-14] MEDS: SODIUM CHLORIDE 0.9% 1,000 ML IV SCH ×2 (09:00→13:42)
[2021-04-14] MEDS: PANTOPRAZOLE 40 MG TAB PO SCH (09:34)
[2021-04-14] MEDS: cefTRIAXone 1GM/50ML D5W 50 ML IV SCH (09:34)
[2021-04-14] MEDS: amLODIPine BESYLATE 5 MG TAB PO SCH (10:00)
[2021-04-14] MEDS: INSULIN LANTUS (GLARGINE) 1 /0.01ml (100units/ml) SC SCH (10:15)
[2021-04-14] MEDS ORDERED: NICOTINE 14 MG/24HR TOPICAL PATCH TD ONE ×2 (11:23→11:30)
[2021-04-14] MEDS ORDERED: LORazepam 2MG/ML-1ML VIAL ONE (11:23)
[2021-04-14] MEDS ORDERED: LORazepam 2MG/ML-1ML VIAL IV ONE (11:30)
[2021-04-14] MEDS: ATORVASTATIN 20 MG TAB PO SCH (21:41)
[2021-04-15] MEDS: SODIUM CHLORIDE 0.9% 1,000 ML IV SCH ×3 (00:01→08:44)
[2021-04-15] MEDS: ACCU-CHEK COMFORT CURVE STRIP VI SCH ×6 (00:01→20:19)
[2021-04-15] MEDS: HYDROcodone-ACET 5/325MG TAB PO PRN ×5 (00:01→21:12)
[2021-04-15] MEDS: InsuLIN REG 1unit/0.01ml Soln (100units/ml) SC SCH ×6 (00:12→20:20)
[2021-04-15] MEDS: ONDANSETRON HCL 4 MG/2 ML VIAL IV PRN ×2 (04:08→16:53)
[2021-04-15] MEDS: CLINDAMYCIN 600MG IV 50 ML IV SCH ×3 (05:15→21:11)
[2021-04-15 05:21] VITALS: BP 124/71
[2021-04-15 06:02] LABS: Basophils # (auto) 0.1 10 ^3/uL (0-0.2); Basophils % (auto) 0.8 % (0.0-2.0); Eosinophils # (auto) 0.2 10 ^3/uL (0-0.8); Eosinophils % (auto) 2.2 % (0.0-7.0); Hematocrit 31.1 % (36.0-46.0); Hemoglobin 10.7 g/dL (12.2-16.2); Lymphocytes # (auto) 1.9 10 ^3/uL (0.4-5.4); Mean Corpuscular Hemoglobin 30.8 pg (28.0-32.0); Mean Corpuscular Hgb Conc. 34.5 g/dL (32.0-36.0); Mean Corpuscular Volume 89.2 fL (80.0-100.0); Monocytes # (auto) 0.6 10 ^3/uL (0-1.3); Monocytes % (auto) 6.4 % (0.0-12.0); Neutrophils # (auto) 7.2 10 ^3/uL (1.6-8.6); Neutrophils % (auto) 71.6 % (37.0-80.0); Platelet Count (auto) 283 10^3/uL (140-450); Red Blood Cells 3.49 10^6/uL (4.0-5.20); White Blood Cell 10.1 10^3/uL (4.4-10.8)
[2021-04-15 06:20] LABS: BUN/Creatinine Ratio 23.3; Calcium 7.9 mg/dL (8.5-10.1); Potassium 3.9 mmol/L (3.5-5.1)
[2021-04-15] MEDS: PANTOPRAZOLE 40 MG TAB PO SCH (08:41)
[2021-04-15] MEDS: cefTRIAXone 1GM/50ML D5W 50 ML IV SCH (08:41)
[2021-04-15 08:47] VITALS: BP 91/53
[2021-04-15] MEDS: INSULIN LANTUS (GLARGINE) 1 /0.01ml (100units/ml) SC SCH (09:06)
[2021-04-15] MEDS: amLODIPine BESYLATE 5 MG TAB PO SCH (09:09)
[2021-04-15] MEDS: NICOTINE 14 MG/24HR TOPICAL PATCH TD SCH (10:00)
[2021-04-15 12:42] VITALS: BP 106/66
[2021-04-15 16:33] VITALS: BP 105/68
[2021-04-15] MEDS ORDERED: LORazepam 0.5 MG TAB PO PRN (18:45)
[2021-04-15] MEDS: ATORVASTATIN 20 MG TAB PO SCH (21:11)
[2021-04-15 21:39] VITALS: BP 126/67
[2021-04-15] MEDS ORDERED: DEXTROSE (50%) 50ML SYRG IV PRN (23:15)
[2021-04-16 05:00] VITALS: BP 129/70
[2021-04-16] MEDS: ACCU-CHEK COMFORT CURVE STRIP VI SCH ×4 (05:50→21:02)
[2021-04-16] MEDS: InsuLIN REG 1unit/0.01ml Soln (100units/ml) SC SCH ×4 (05:52→21:17)
[2021-04-16] MEDS: CLINDAMYCIN 600MG IV 50 ML IV SCH ×3 (05:52→21:02)
[2021-04-16] MEDS: HYDROcodone-ACET 5/325MG TAB PO PRN ×3 (05:53→21:14)
[2021-04-16 06:16] LABS: BUN/Creatinine Ratio 17.6; Calcium 8.1 mg/dL (8.5-10.1); Potassium 3.9 mmol/L (3.5-5.1)
[2021-04-16 06:18] LABS: Basophils # (auto) 0.1 10 ^3/uL (0-0.2); Basophils % (auto) 0.9 % (0.0-2.0); Eosinophils # (auto) 0.2 10 ^3/uL (0-0.8); Eosinophils % (auto) 2.6 % (0.0-7.0); Hematocrit 32.2 % (36.0-46.0); Hemoglobin 11.1 g/dL (12.2-16.2); Lymphocytes # (auto) 2.1 10 ^3/uL (0.4-5.4); Lymphocytes % (auto) 24.3 % (10.0-50.0); Mean Corpuscular Hemoglobin 31.1 pg (28.0-32.0); Mean Corpuscular Hgb Conc. 34.6 g/dL (32.0-36.0); Mean Corpuscular Volume 89.9 fL (80.0-100.0); Monocytes # (auto) 0.5 10 ^3/uL (0-1.3); Monocytes % (auto) 6.1 % (0.0-12.0); Neutrophils # (auto) 5.8 10 ^3/uL (1.6-8.6); Neutrophils % (auto) 66.1 % (37.0-80.0); Nucleated Red Blood Cells % 0.1 %; Platelet Count (auto) 312 10^3/uL (140-450); Red Blood Cells 3.58 10^6/uL (4.0-5.20); Red Cell Distribution Width 13.8 % (11.8-14.3); White Blood Cell 8.8 10^3/uL (4.4-10.8)
[2021-04-16] MEDS: ONDANSETRON HCL 4 MG/2 ML VIAL IV PRN ×2 (06:18→21:02)
[2021-04-16 09:00] VITALS: BP 122/74
[2021-04-16] MEDS: amLODIPine BESYLATE 5 MG TAB PO SCH (10:00)
[2021-04-16] MEDS: NICOTINE 14 MG/24HR TOPICAL PATCH TD SCH (10:00)
[2021-04-16] MEDS: PANTOPRAZOLE 40 MG TAB PO SCH (10:18)
[2021-04-16] MEDS: cefTRIAXone 1GM/50ML D5W 50 ML IV SCH (10:19)
[2021-04-16] MEDS: INSULIN LANTUS (GLARGINE) 1 /0.01ml (100units/ml) SC SCH (10:31)
[2021-04-16] MEDS ORDERED: AMOX500T86 PO (11:01)
[2021-04-16] MEDS ORDERED: CLIN300C8 PO (11:01)
[2021-04-16 13:00] VITALS: BP 94/64
[2021-04-16 17:00] VITALS: BP 92/49
[2021-04-16] MEDS: ATORVASTATIN 20 MG TAB PO SCH (21:02)
[2021-04-16 22:21] VITALS: BP 106/67
[2021-04-17 05:32] LABS: Basophils # (auto) 0.1 10 ^3/uL (0-0.2); Basophils % (auto) 0.8 % (0.0-2.0); Eosinophils # (auto) 0.2 10 ^3/uL (0-0.8); Eosinophils % (auto) 2.7 % (0.0-7.0); Hematocrit 31.6 % (36.0-46.0); Hemoglobin 10.9 g/dL (12.2-16.2); Lymphocytes # (auto) 2.7 10 ^3/uL (0.4-5.4); Lymphocytes % (auto) 29.4 % (10.0-50.0); Mean Corpuscular Hemoglobin 30.5 pg (28.0-32.0); Mean Corpuscular Hgb Conc. 34.5 g/dL (32.0-36.0); Mean Corpuscular Volume 88.5 fL (80.0-100.0); Monocytes # (auto) 0.7 10 ^3/uL (0-1.3); Monocytes % (auto) 7.2 % (0.0-12.0); Neutrophils # (auto) 5.4 10 ^3/uL (1.6-8.6); Neutrophils % (auto) 59.9 % (37.0-80.0); Platelet Count (auto) 351 10^3/uL (140-450); Red Blood Cells 3.57 10^6/uL (4.0-5.20); Red Cell Distribution Width 13.7 % (11.8-14.3); White Blood Cell 9.1 10^3/uL (4.4-10.8)
[2021-04-17 05:42] VITALS: BP 114/69
[2021-04-17 05:49] LABS: BUN/Creatinine Ratio 18.8; Calcium 8.3 mg/dL (8.5-10.1); Potassium 3.9 mmol/L (3.5-5.1)
[2021-04-17] MEDS: CLINDAMYCIN 600MG IV 50 ML IV SCH ×2 (06:13→14:34)
[2021-04-17] MEDS: InsuLIN REG 1unit/0.01ml Soln (100units/ml) SC SCH ×2 (06:13→11:47)
[2021-04-17] MEDS: ACCU-CHEK COMFORT CURVE STRIP VI SCH ×2 (06:13→11:46)
[2021-04-17] MEDS: PANTOPRAZOLE 40 MG TAB PO SCH (07:41)
[2021-04-17] MEDS: cefTRIAXone 1GM/50ML D5W 50 ML IV SCH (07:41)
[2021-04-17] MEDS: HYDROcodone-ACET 5/325MG TAB PO PRN (07:42)
[2021-04-17] MEDS: amLODIPine BESYLATE 5 MG TAB PO SCH (08:01)
[2021-04-17] MEDS: NICOTINE 14 MG/24HR TOPICAL PATCH TD SCH (08:01)
[2021-04-17 09:00] VITALS: BP 159/89
[2021-04-17] MEDS: INSULIN LANTUS (GLARGINE) 1 /0.01ml (100units/ml) SC SCH (10:00)
[2021-04-17 13:04] VITALS: BP 129/65
== END 2021-04-17 14:35 | disposition home or self-care (01) | DRG 720 ==
LOC: ER 18:52 → TELE 21:25 → ICU WEST 22:41 → TELE-WESTW 04-14 11:50 → WEST WING 04-15 10:47
PROVIDERS: ADMIT Nurse Practitioner; ATTEND Internal Medicine Pulmonary Disease
DX: A41.9 Sepsis, unspecified organism (principal); E11.10 Type 2 diabetes mellitus with ketoacidosis without coma; N17.9 Acute kidney failure, unspecified; E87.8 Other disorders of electrolyte and fluid balance, not elsewhere classified; L03.116 Cellulitis of left lower limb; I10 Essential (primary) hypertension; E78.5 Hyperlipidemia, unspecified; E87.6 Hypokalemia; F17.210 Nicotine dependence, cigarettes, uncomplicated; Z82.49 Family history of ischemic heart disease and other diseases of the circulatory system; Z83.3 Family history of diabetes mellitus; K21.9 Gastro-esophageal reflux disease without esophagitis; F32.9 Major depressive disorder, single episode, unspecified; Z79.4 Long term (current) use of insulin; Z20.822 Contact with and (suspected) exposure to COVID-19
CPT/HCPCS: 36415; 36600; 71045; 73700; 80048; 80053; 80307; 81001; 82010; 82805; 82962; 83605; 83735; 84100; 85025; 87040; 87081; 87426; 90471; 93005; 93926; 96365; 96366; 96368; 96375; 99291; G0378; J0696; J1815; J2405; J3490

== ENCOUNTER 2021-05-13 14:30 | Inpatient (IN) | payer MEDICAID ==
[~2021-05-13] VITALS: Ht 157.5 cm; Wt 69.1 kg
[~2021-05-13 14:30] MED LIST changes: +AMOX500T86 PO; +CLIN300C8 PO
[2021-05-13] MEDS ORDERED: SODIUM CHLORIDE 0.9% 1,000 ML IV ONE ×2 (14:45)
[2021-05-13] MEDS ORDERED: ACYCLOVIR 400 MG TAB PO ONE (14:45)
[2021-05-13] MEDS ORDERED: HYDROcodone-ACET 10/325MG TAB PO ONE ×2 (14:45→20:00)
[2021-05-13 15:40] LABS: Albumin 4.3 g/dL (3.4-5.0); Anion Gap 16 (5-15); Blood Urea Nitrogen 64 mg/dL (7-18); Carbon Dioxide 34 mmol/L (21-32); Chloride 72 mmol/L (98-107); Glucose 310 mg/dL (74-106); Potassium 3.3 mmol/L (3.5-5.1); Sodium 122 mmol/L (136-145)
[2021-05-13 15:46] LABS: Alanine Aminotransferase 29 U/L (13-56); Alkaline Phosphatase 122 U/L (45-117); Aspartate Aminotransferase 18 U/L (15-37); BUN/Creatinine Ratio 12.3; Bilirubin, Total 0.4 mg/dL (0.2-1.0); GFR African American 11 mL/min; GFR Non-African American 9 mL/min; Total Protein 8.7 g/dL (6.4-8.2)
[2021-05-13 15:47] LABS: Basophils # (auto) 0 10 ^3/uL (0-0.2); Basophils % (auto) 0.6 % (0.0-2.0); Eosinophils # (auto) 0 10 ^3/uL (0-0.8); Eosinophils % (auto) 0.6 % (0.0-7.0); Hematocrit 44.6 % (36.0-46.0); Hemoglobin 15.6 g/dL (12.2-16.2); Lymphocytes # (auto) 1.3 10 ^3/uL (0.4-5.4); Lymphocytes % (auto) 19.5 % (10.0-50.0); Mean Corpuscular Hemoglobin 30.3 pg (28.0-32.0); Mean Corpuscular Hgb Conc. 35.1 g/dL (32.0-36.0); Mean Corpuscular Volume 86.2 fL (80.0-100.0); Monocytes # (auto) 0.6 10 ^3/uL (0-1.3); Monocytes % (auto) 9.4 % (0.0-12.0); Neutrophils # (auto) 4.8 10 ^3/uL (1.6-8.6); Neutrophils % (auto) 69.9 % (37.0-80.0); Platelet Count (auto) 244 10^3/uL (140-450); Red Blood Cells 5.17 10^6/uL (4.0-5.20); White Blood Cell 6.9 10^3/uL (4.4-10.8)
[2021-05-13] MEDS ORDERED: InsuLIN REG 1unit/0.01ml Soln (100units/ml) IV ONE (17:00)
[2021-05-13 19:07] LABS: Urine Bacteria NONE SEEN /hpf (None Seen); Urine Blood TRACE /uL (Negative); Urine Hyaline Cast MANY /lpf (0 - 2); Urine Mucus FEW (None Seen); Urine Specific Gravity 1.017 (1.001-1.035); Urine WBC 13 /hpf (0 - 5)
[2021-05-14] VITALS (7 sets, daily range): BP systolic 93–105; BP diastolic 57–68
[2021-05-14] MEDS ORDERED: MORPHINE SULF INJ 2 MG/ML SYRINGE 1ML IV PRN
[2021-05-14] MEDS ORDERED: NITROGLYCERIN 0.4 MG SL TAB SL PRN
[2021-05-14] MEDS ORDERED: DEXTROSE (50%) 50ML SYRG IV PRN
[2021-05-14] MEDS ORDERED: ACETAMINOPHEN 325 MG TAB PO PRN
[2021-05-14 00:21] LABS: BUN/Creatinine Ratio 15.3; Calcium 8.6 mg/dL (8.5-10.1)
[2021-05-14 00:24] LABS: Potassium 2.7 mmol/L (3.5-5.1)
[2021-05-14] MEDS ORDERED: INSLANTI SC (01:43)
[2021-05-14] MEDS: SODIUM CHLORIDE 0.9% 1,000 ML IV SCH ×2 (01:45→13:08)
[2021-05-14] MEDS: POTASSIUM CHL 20MEQ/100ML 100 ML IV SCH ×2 (01:46→04:20)
[2021-05-14] MEDS: HYDROcodone-ACET 5/325MG TAB PO PRN ×5 (02:04→21:54)
[2021-05-14 05:03] LABS: Basophils # (auto) 0 10 ^3/uL (0-0.2); Basophils % (auto) 0.7 % (0.0-2.0); Eosinophils # (auto) 0.2 10 ^3/uL (0-0.8); Hematocrit 37.8 % (36.0-46.0); Hemoglobin 13.1 g/dL (12.2-16.2); Lymphocytes # (auto) 2.1 10 ^3/uL (0.4-5.4); Lymphocytes % (auto) 36.9 % (10.0-50.0); Mean Corpuscular Hemoglobin 29.9 pg (28.0-32.0); Mean Corpuscular Hgb Conc. 34.6 g/dL (32.0-36.0); Mean Corpuscular Volume 86.4 fL (80.0-100.0); Monocytes # (auto) 0.6 10 ^3/uL (0-1.3); Neutrophils # (auto) 2.8 10 ^3/uL (1.6-8.6); Neutrophils % (auto) 48.4 % (37.0-80.0); Nucleated Red Blood Cells % 0.1 %; Platelet Count (auto) 189 10^3/uL (140-450); Red Blood Cells 4.37 10^6/uL (4.0-5.20); Red Cell Distribution Width 13.9 % (11.8-14.3); White Blood Cell 5.8 10^3/uL (4.4-10.8)
[2021-05-14 05:23] LABS: Albumin 3.5 g/dL (3.4-5.0); Calcium 8.1 mg/dL (8.5-10.1)
[2021-05-14 05:26] LABS: BUN/Creatinine Ratio 20.5; Bilirubin, Total 0.4 mg/dL (0.2-1.0); Total Protein 6.9 g/dL (6.4-8.2)
[2021-05-14] MEDS: InsuLIN REG 1unit/0.01ml Soln (100units/ml) SC SCH ×4 (06:03→17:43)
[2021-05-14] MEDS: ACCU-CHEK COMFORT CURVE STRIP VI SCH ×4 (06:04→17:42)
[2021-05-14] MEDS: ONDANSETRON HCL 4 MG/2 ML VIAL IV PRN ×3 (06:05→17:31)
[2021-05-14] MEDS ORDERED: HEPARIN SODIUM (PORCINE) 5000 UNITS/ML 1ML VIAL ONE (09:50)
[2021-05-14] MEDS ORDERED: HEPARIN SODIUM (PORCINE) 5000 UNITS/ML 1ML VIAL SC SCH (10:00)
[2021-05-14] MEDS ORDERED: FAMOTIDINE 20 MG TAB PO SCH (10:00)
[2021-05-14] MEDS: ASCORBIC ACID 500 MG TAB PO SCH ×2 (10:01→21:53)
[2021-05-14] MEDS: ZINC SULFATE 220mg CAP or TAB PO SCH (10:01)
[2021-05-14] MEDS: MULTIPLE VITAMIN TAB PO SCH (10:01)
[2021-05-14] MEDS: ACYCLOVIR SOD 50MG/ML 500 MG in D5W 5% 100 ML IV SCH (10:25)
[2021-05-14] MEDS: MORPHINE SULFATE 4 MG/ML SYR/VIAL IV PRN (10:26)
[2021-05-14] MEDS ORDERED: NICOTINE 21MG/24 HR TOPICAL PATCH TD ONE (14:00)
[2021-05-14] MEDS ORDERED: TEMAZEPAM 15 MG CAP PO ONE (22:30)
[2021-05-15 05:00] VITALS: BP 91/55
[2021-05-15] MEDS: ACCU-CHEK COMFORT CURVE STRIP VI SCH ×5 (06:05→23:53)
[2021-05-15] MEDS: InsuLIN REG 1unit/0.01ml Soln (100units/ml) SC SCH ×5 (06:11→23:54)
[2021-05-15 08:38] VITALS: BP 141/86
[2021-05-15] MEDS: ASCORBIC ACID 500 MG TAB PO SCH ×2 (10:10→21:26)
[2021-05-15] MEDS: ZINC SULFATE 220mg CAP or TAB PO SCH (10:10)
[2021-05-15] MEDS: MULTIPLE VITAMIN TAB PO SCH (10:10)
[2021-05-15] MEDS: SODIUM CHLORIDE 0.9% 1,000 ML IV SCH ×2 (10:10→14:16)
[2021-05-15] MEDS: NICOTINE 21MG/24 HR TOPICAL PATCH TD SCH (10:11)
[2021-05-15] MEDS: MORPHINE SULFATE 4 MG/ML SYR/VIAL IV PRN ×2 (10:12→21:27)
[2021-05-15 10:25] LABS: Albumin 3.3 g/dL (3.4-5.0); Calcium 8.5 mg/dL (8.5-10.1); Potassium 3.8 mmol/L (3.5-5.1)
[2021-05-15 10:30] LABS: BUN/Creatinine Ratio 32.5; Bilirubin, Total 0.3 mg/dL (0.2-1.0); Total Protein 6.8 g/dL (6.4-8.2)
[2021-05-15 13:00] VITALS: BP 110/76
[2021-05-15] MEDS: CALAMINE TOPical LOTION180 ML TOP SCH ×2 (14:16→21:27)
[2021-05-15] MEDS: ACYCLOVIR SOD 50MG/ML 500 MG in D5W 5% 100 ML IV SCH (16:17)
[2021-05-15] MEDS: FAMOTIDINE 20 MG TAB PO SCH (17:24)
[2021-05-15 22:00] VITALS: BP 95/60
[2021-05-16] MEDS: SODIUM CHLORIDE 0.9% 1,000 ML IV SCH ×2 (01:55→10:22)
[2021-05-16] MEDS: MORPHINE SULFATE 4 MG/ML SYR/VIAL IV PRN (02:30)
[2021-05-16 04:41] VITALS: BP 86/48
[2021-05-16 05:30] VITALS: BP 95/59
[2021-05-16] MEDS: ACCU-CHEK COMFORT CURVE STRIP VI SCH ×2 (05:30→11:49)
[2021-05-16] MEDS: InsuLIN REG 1unit/0.01ml Soln (100units/ml) SC SCH ×2 (05:30→12:00)
[2021-05-16] MEDS: CALAMINE TOPical LOTION180 ML TOP SCH (05:30)
[2021-05-16 05:44] LABS: Albumin 2.8 g/dL (3.4-5.0); Calcium 7.7 mg/dL (8.5-10.1); Potassium 3.6 mmol/L (3.5-5.1)
[2021-05-16 05:49] LABS: BUN/Creatinine Ratio 31.7; Bilirubin, Total 0.2 mg/dL (0.2-1.0); Total Protein 5.8 g/dL (6.4-8.2)
[2021-05-16 08:49] VITALS: BP 128/72
[2021-05-16] MEDS: HYDROcodone-ACET 5/325MG TAB PO PRN (09:22)
[2021-05-16] MEDS: NICOTINE 21MG/24 HR TOPICAL PATCH TD SCH (10:00)
[2021-05-16] MEDS: MULTIPLE VITAMIN TAB PO SCH (10:21)
[2021-05-16] MEDS: ZINC SULFATE 220mg CAP or TAB PO SCH (10:21)
[2021-05-16] MEDS: ACYCLOVIR SOD 50MG/ML 500 MG in D5W 5% 100 ML IV SCH (10:21)
[2021-05-16] MEDS: ASCORBIC ACID 500 MG TAB PO SCH (10:22)
[2021-05-16] MEDS: FAMOTIDINE 20 MG TAB PO SCH (10:22)
[2021-05-16 12:15] VITALS: BP 128/72
== END 2021-05-16 15:45 | disposition home or self-care (01) | DRG 420 ==
LOC: ER 14:30 → TELE 23:51 → TELE-CENTR 05-14 01:02
PROVIDERS: ADMIT Nurse Practitioner Family; ATTEND Family Medicine
DX: E11.10 Type 2 diabetes mellitus with ketoacidosis without coma (principal); N17.9 Acute kidney failure, unspecified; I95.9 Hypotension, unspecified; B02.29 Other postherpetic nervous system involvement; E11.40 Type 2 diabetes mellitus with diabetic neuropathy, unspecified; E87.1 Hypo-osmolality and hyponatremia; E86.0 Dehydration; E87.6 Hypokalemia; E86.1 Hypovolemia; F17.210 Nicotine dependence, cigarettes, uncomplicated; F32.9 Major depressive disorder, single episode, unspecified; F41.9 Anxiety disorder, unspecified; K21.9 Gastro-esophageal reflux disease without esophagitis; M54.5 Low back pain; Z20.822 Contact with and (suspected) exposure to COVID-19; Z82.49 Family history of ischemic heart disease and other diseases of the circulatory system; Z83.3 Family history of diabetes mellitus
CPT/HCPCS: 36415; 36600; 71045; 80048; 80053; 81001; 82010; 82805; 82962; 83880; 84484; 85025; 87081; 87426; 96361; 96374; 99291; G0378; J1815; J2405; J3480; J7060

== ENCOUNTER 2022-04-06 10:09 | Inpatient (IN) | payer MEDICAID ==
[~2022-04-06] VITALS: Ht 157.5 cm; Wt 61.6 kg
[~2022-04-06 10:09] MED LIST changes: +DULO-141 PO; -DULO30CA84 PO; +INSLANTI SC
[2022-04-06] MEDS ORDERED: SODIUM CHLORIDE 0.9% 1,000 ML IV ONE (11:15)
[2022-04-06 11:51] LABS: Urine Bacteria NONE SEEN /hpf (None Seen); Urine Blood TRACE /uL (Negative); Urine Hyaline Cast MANY /lpf (0 - 2); Urine Mucus FEW (None Seen); Urine Specific Gravity 1.017 (1.001-1.035); Urine WBC 1 /hpf (0 - 5)
[2022-04-06 11:52] LABS: Basophils # (auto) 0 10 ^3/uL (0-0.2); Basophils % (auto) 0.3 % (0.0-2.0); Eosinophils # (auto) 0 10 ^3/uL (0-0.8); Eosinophils % (auto) 0.2 % (0.0-7.0); Hematocrit 45.7 % (36.0-46.0); Hemoglobin 15.7 g/dL (12.2-16.2); Lymphocytes # (auto) 1.5 10 ^3/uL (0.4-5.4); Lymphocytes % (auto) 13.5 % (10.0-50.0); Mean Corpuscular Hemoglobin 30.4 pg (28.0-32.0); Mean Corpuscular Hgb Conc. 34.4 g/dL (32.0-36.0); Mean Corpuscular Volume 88.3 fL (80.0-100.0); Monocytes # (auto) 0.6 10 ^3/uL (0-1.3); Monocytes % (auto) 5.8 % (0.0-12.0); Neutrophils # (auto) 8.8 10 ^3/uL (1.6-8.6); Neutrophils % (auto) 80.2 % (37.0-80.0); Nucleated Red Blood Cells % 0.2 %; Red Blood Cells 5.17 10^6/uL (4.0-5.20); Red Cell Distribution Width 13.9 % (11.8-14.3); White Blood Cell 10.9 10^3/uL (4.4-10.8)
[2022-04-06] MEDS ORDERED: SODIUM CHLORIDE 0.9% 1,000 ML IVB ONE (12:30)
[2022-04-06] MEDS ORDERED: MORPHINE SULFATE 4 MG/ML SYR/VIAL IV ONE (12:30)
[2022-04-06] MEDS: PROMETHAZINE HCL 25 MG/ML 1ML IV PRN (13:25)
[2022-04-06 13:33] LABS: Magnesium 2.2 mg/dL (1.6-2.6)
[2022-04-06 14:16] LABS: BUN/Creatinine Ratio 23.7; Potassium 3.3 mmol/L (3.5-5.1)
[2022-04-06 14:17] LABS: Bilirubin, Total 0.5 mg/dL (0.2-1.0); Calcium 8.2 mg/dL (8.5-10.1); Total Protein 6.8 g/dL (6.4-8.2)
[2022-04-06] MEDS ORDERED: InsuLIN R (HUMAN) 100 UNITS in SODIUM CHL 0.9% 99 ML IV SCH (14:30)
[2022-04-06] MEDS ORDERED: DEXTROSE (50%) 50ML SYRG IV PRN ×2 (14:30→15:45)
[2022-04-06] MEDS ORDERED: POTASSIUM EFFERVESENT TAB 25 MEQ PO ONE (14:30)
[2022-04-06] MEDS ORDERED: SODIUM CHLORIDE 0.9% 2,000 ML IV ONE (14:30)
[2022-04-06] MEDS ORDERED: NITROGLYCERIN 0.4 MG SL TAB SL PRN (14:45)
[2022-04-06] MEDS ORDERED: MORPHINE SULFATE INJ 2 MG/ml SYRG IV PRN (14:45)
[2022-04-06] MEDS ORDERED: ACCU-CHEK COMFORT CURVE STRIP VI SCH (15:00)
[2022-04-06] MEDS: SOD CHL 0.9%/ KCL 20MEQ 1,000 ML IV SCH (15:03)
[2022-04-06] MEDS ORDERED: DOCUSATE SOD 100 MG CAP PO PRN (15:45)
[2022-04-06] MEDS ORDERED: LACTATED RINGER'S 1,000 ML IV ONE (15:45)
[2022-04-06] MEDS ORDERED: PANTOPRAZOLE 40 MG/10 ML VIAL INJ IV ONE (15:45)
[2022-04-06] MEDS ORDERED: ONDANSETRON HCL 4 MG/2 ML VIAL IV PRN (15:45)
[2022-04-06] MEDS ORDERED: ACETAMINOPHEN 325 MG TAB PO PRN (15:45)
[2022-04-06] MEDS ORDERED: hydrALAZINE HCL 20 MG/ML VL IV PRN (15:45)
[2022-04-06 16:10] LABS: Phosphorus 4.7 mg/dL (2.5-4.90)
[2022-04-06 16:23] VITALS: BP 146/90
[2022-04-06] MEDS: AMPICILLIN & SULBACTAM SODIUM 3 GM in SODIUM CHL 0.9% 100 ML IV SCH ×2 (16:27→22:49)
[2022-04-06 16:35] LABS: Alcohol, Urine < 3.0 mg/dL (0-10); Amphetamine Screen, Urine NEGATIVE (NEGATIVE); Barbiturate Scree,Urine NEGATIVE (NEGATIVE); Benzodiazephine Screen, Urine NEGATIVE (NEGATIVE); Cannabinoid Screen, Urine POSITIVE (NEGATIVE); Cocaine Screen, Urine NEGATIVE (NEGATIVE); Opiate Scree,Urine NEGATIVE (NEGATIVE); Phencyclidine Screen, Urine NEGATIVE (NEGATIVE)
[2022-04-06] MEDS ORDERED: IPRATROPIUM BROM 0.5 MG/2.5ML INH SOL NEB SCH (18:00)
[2022-04-06] MEDS: ACCU-CHEK COMFORT CURVE STRIP VI SCH (18:01)
[2022-04-06] MEDS: InsuLIN REG 1unit/0.01ml Soln (100units/ml) SC SCH (18:02)
[2022-04-06 18:31] LABS: BUN/Creatinine Ratio 26.8; Calcium 8.1 mg/dL (8.5-10.1); Potassium 3.4 mmol/L (3.5-5.1)
[2022-04-06 18:35] LABS: INR 0.99 (0.9-1.15); Partial Thromboplastin Time 29.6 sec (23.6-33.0)
[2022-04-06] MEDS ORDERED: IPRATROPIUM BROM 0.5 MG/2.5ML INH SOL NEB PRN (20:00)
[2022-04-06] MEDS ORDERED: TRAM50TA2 PO (20:36)
[2022-04-06] MEDS: HYDROcodone-ACET 5/325MG TAB PO PRN (20:48)
[2022-04-06] MEDS: ATORVASTATIN 20 MG TAB PO SCH (21:43)
[2022-04-06] MEDS: CLINDAMYCIN 600MG IV 50 ML IV SCH (21:44)
[2022-04-06] MEDS: DULoxetine HCL 30 MG CAP PO SCH (21:44)
[2022-04-06 22:00] VITALS: BP 114/80
[2022-04-06] MEDS ORDERED: ATORVASTATIN 20 MG TAB PO SCH (22:00)
[2022-04-06 22:58] LABS: Calcium 8.4 mg/dL (8.5-10.1); Potassium 3.5 mmol/L (3.5-5.1)
[2022-04-07] MEDS: ACCU-CHEK COMFORT CURVE STRIP VI SCH ×4 (00:21→17:29)
[2022-04-07] MEDS: InsuLIN REG 1unit/0.01ml Soln (100units/ml) SC SCH ×4 (00:21→17:28)
[2022-04-07 02:47] LABS: BUN/Creatinine Ratio 26.9; Calcium 8.3 mg/dL (8.5-10.1); Potassium 3.4 mmol/L (3.5-5.1)
[2022-04-07] MEDS: SOD CHL 0.9%/ KCL 20MEQ 1,000 ML IV SCH ×2 (04:29→17:17)
[2022-04-07 05:00] VITALS: BP 101/73
[2022-04-07] MEDS: CLINDAMYCIN 600MG IV 50 ML IV SCH ×3 (05:35→21:50)
[2022-04-07] MEDS: SUCRALFATE 1 GM/10 ML ORAL SUSP PO SCH ×2 (06:20→17:16)
[2022-04-07] MEDS: AMPICILLIN & SULBACTAM SODIUM 3 GM in SODIUM CHL 0.9% 100 ML IV SCH ×3 (06:41→23:47)
[2022-04-07 06:44] LABS: Basophils # (auto) 0 10 ^3/uL (0-0.2); Basophils % (auto) 0.5 % (0.0-2.0); Eosinophils # (auto) 0.2 10 ^3/uL (0-0.8); Eosinophils % (auto) 2.3 % (0.0-7.0); Hematocrit 39.1 % (36.0-46.0); Hemoglobin 13.7 g/dL (12.2-16.2); Lymphocytes # (auto) 2.2 10 ^3/uL (0.4-5.4); Lymphocytes % (auto) 24.7 % (10.0-50.0); Mean Corpuscular Hemoglobin 30.6 pg (28.0-32.0); Mean Corpuscular Hgb Conc. 35.2 g/dL (32.0-36.0); Monocytes # (auto) 0.7 10 ^3/uL (0-1.3); Monocytes % (auto) 7.5 % (0.0-12.0); Neutrophils # (auto) 5.8 10 ^3/uL (1.6-8.6); Nucleated Red Blood Cells % 0.1 %; Red Blood Cells 4.49 10^6/uL (4.0-5.20); Red Cell Distribution Width 13.2 % (11.8-14.3); White Blood Cell 8.9 10^3/uL (4.4-10.8)
[2022-04-07 07:07] LABS: Albumin 2.8 g/dL (3.4-5.0); Calcium 8.2 mg/dL (8.5-10.1); Magnesium 2.1 mg/dL (1.6-2.6)
[2022-04-07 07:15] LABS: BUN/Creatinine Ratio 35.4; Bilirubin, Total 0.4 mg/dL (0.2-1.0); CRP High Sensitivity 1.03 mg/dL (< 0.3); Total Protein 6.4 g/dL (6.4-8.2)
[2022-04-07 07:18] LABS: INR 0.98 (0.9-1.15); Partial Thromboplastin Time 29.9 sec (23.6-33.0)
[2022-04-07 08:00] VITALS: BP 107/78
[2022-04-07 08:02] LABS: Phosphorus 3.1 mg/dL (2.5-4.90); Potassium 2.9 mmol/L (3.5-5.1)
[2022-04-07] MEDS: LORazepam 0.5 MG TAB PO PRN ×2 (08:08→19:30)
[2022-04-07] MEDS: MORPHINE SULFATE INJ 2 MG/ml SYRG IV PRN ×2 (08:53→23:21)
[2022-04-07 09:00] VITALS: BP 107/78
[2022-04-07 11:15] LABS: Potassium 3.6 mmol/L (3.5-5.1)
[2022-04-07 11:17] LABS: BUN/Creatinine Ratio 32.9
[2022-04-07] MEDS: ASPirin 81 mg TAB PO SCH (11:54)
[2022-04-07] MEDS: PANTOPRAZOLE 40 MG/10 ML VIAL INJ IV SCH (11:55)
[2022-04-07] MEDS: ENOXAPARIN SOD 40 MG/0.4 ML SYRINGE SC SCH (11:57)
[2022-04-07] MEDS: DULoxetine HCL 30 MG CAP PO SCH ×2 (11:57→21:50)
[2022-04-07 13:27] LABS: Urine Bacteria NONE SEEN /hpf (None Seen); Urine Blood Negative /uL (Negative); Urine Specific Gravity 1.021 (1.001-1.035); Urine WBC 2 /hpf (0 - 5)
[2022-04-07 13:35] LABS: Alcohol, Urine < 3.0 mg/dL (0-10); Amphetamine Screen, Urine NEGATIVE (NEGATIVE); Barbiturate Scree,Urine NEGATIVE (NEGATIVE); Benzodiazephine Screen, Urine NEGATIVE (NEGATIVE); Cannabinoid Screen, Urine POSITIVE (NEGATIVE); Cocaine Screen, Urine NEGATIVE (NEGATIVE); Opiate Scree,Urine NEGATIVE (NEGATIVE); Phencyclidine Screen, Urine NEGATIVE (NEGATIVE); Protein, Urine 44.1 mg/dL (0.0-11.9)
[2022-04-07 14:44] LABS: BUN/Creatinine Ratio 23.9; Calcium 8.5 mg/dL (8.5-10.1); Potassium 3.7 mmol/L (3.5-5.1)
[2022-04-07] MEDS ORDERED: LACTULOSE 20Gm/30ML SOLN PO ONE (14:45)
[2022-04-07] MEDS ORDERED: LACTULOSE 20Gm/30ML SOLN PO PRN (14:45)
[2022-04-07] MEDS ORDERED: DEXTROSE (50%) 50ML SYRG IV PRN (15:30)
[2022-04-07 17:10] VITALS: BP 109/70
[2022-04-07] MEDS: PROMETHAZINE HCL 25 MG/ML 1ML IV PRN (19:54)
[2022-04-07] MEDS: HYDROcodone-ACET 5/325MG TAB PO PRN (20:43)
[2022-04-07] MEDS: ATORVASTATIN 20 MG TAB PO SCH (21:50)
[2022-04-07] MEDS: DOCUSATE SOD 100 MG CAP PO SCH (21:52)
[2022-04-07 22:00] VITALS: BP 182/95
[2022-04-07] MEDS ORDERED: INSULIN LANTUS (GLARGINE) 1 /0.01ml (100units/ml) SC SCH (22:00)
[2022-04-07 23:47] VITALS: BP 173/90
[2022-04-08] VITALS (7 sets, daily range): BP systolic 105–137; BP diastolic 67–88
[2022-04-08] MEDS ORDERED: hydrALAZINE HCL 10 MG TAB PO PRN (01:00)
[2022-04-08] MEDS: CLINDAMYCIN 600MG IV 50 ML IV SCH ×3 (05:25→22:06)
[2022-04-08] MEDS: ACCU-CHEK COMFORT CURVE STRIP VI SCH ×4 (05:25→17:58)
[2022-04-08] MEDS: SOD CHL 0.9%/ KCL 20MEQ 1,000 ML IV SCH ×2 (05:25→15:00)
[2022-04-08] MEDS: InsuLIN REG 1unit/0.01ml Soln (100units/ml) SC SCH ×4 (05:59→17:44)
[2022-04-08] MEDS: SUCRALFATE 1 GM/10 ML ORAL SUSP PO SCH ×2 (06:00→17:41)
[2022-04-08 06:45] LABS: Magnesium 2.5 mg/dL (1.6-2.6); Potassium 3.4 mmol/L (3.5-5.1)
[2022-04-08 06:47] LABS: BUN/Creatinine Ratio 25.3; Calcium 8.5 mg/dL (8.5-10.1)
[2022-04-08] MEDS: AMPICILLIN & SULBACTAM SODIUM 3 GM in SODIUM CHL 0.9% 100 ML IV SCH ×3 (06:52→23:59)
[2022-04-08] MEDS: LORazepam 0.5 MG TAB PO PRN ×2 (08:16→20:06)
[2022-04-08] MEDS: HYDROcodone-ACET 5/325MG TAB PO PRN ×2 (08:32→14:58)
[2022-04-08] MEDS: DOCUSATE SOD 100 MG CAP PO SCH ×2 (10:00→22:00)
[2022-04-08] MEDS: PANTOPRAZOLE 40 MG/10 ML VIAL INJ IV SCH (11:09)
[2022-04-08] MEDS: ASPirin 81 mg TAB PO SCH (11:09)
[2022-04-08] MEDS: ENOXAPARIN SOD 40 MG/0.4 ML SYRINGE SC SCH (11:09)
[2022-04-08] MEDS: DULoxetine HCL 30 MG CAP PO SCH ×2 (11:10→22:07)
[2022-04-08] MEDS ORDERED: ALBUTEROL SULF 2.5 MG/0.5ML(0.5%) NEB SOLN NEB PRN (13:15)
[2022-04-08] MEDS ORDERED: POTASSIUM EFFERVESENT TAB 25 MEQ PO ONE (13:15)
[2022-04-08] MEDS: PROMETHAZINE HCL 25 MG/ML 1ML IV PRN (15:11)
[2022-04-08] MEDS: ATORVASTATIN 20 MG TAB PO SCH (22:07)
[2022-04-08] MEDS: INSULIN LANTUS (GLARGINE) 1 /0.01ml (100units/ml) SC SCH (22:08)
[2022-04-09] MEDS: InsuLIN REG 1unit/0.01ml Soln (100units/ml) SC SCH ×5 (00:04→23:15)
[2022-04-09 05:00] VITALS: BP 120/79
[2022-04-09] MEDS: ACCU-CHEK COMFORT CURVE STRIP VI SCH ×5 (05:16→23:06)
[2022-04-09] MEDS: CLINDAMYCIN 600MG IV 50 ML IV SCH ×3 (05:16→21:13)
[2022-04-09] MEDS: SUCRALFATE 1 GM/10 ML ORAL SUSP PO SCH ×2 (06:00→17:33)
[2022-04-09] MEDS: AMPICILLIN & SULBACTAM SODIUM 3 GM in SODIUM CHL 0.9% 100 ML IV SCH ×3 (06:33→23:08)
[2022-04-09] MEDS: SOD CHL 0.9%/ KCL 20MEQ 1,000 ML IV SCH ×2 (06:55→21:24)
[2022-04-09 08:21] LABS: Basophils # (auto) 0.1 10 ^3/uL (0-0.2); Basophils % (auto) 1.2 % (0.0-2.0); Eosinophils # (auto) 0.2 10 ^3/uL (0-0.8); Eosinophils % (auto) 3.1 % (0.0-7.0); Hematocrit 40.1 % (36.0-46.0); Hemoglobin 13.4 g/dL (12.2-16.2); Lymphocytes # (auto) 2.1 10 ^3/uL (0.4-5.4); Mean Corpuscular Hemoglobin 29.4 pg (28.0-32.0); Mean Corpuscular Hgb Conc. 33.5 g/dL (32.0-36.0); Mean Corpuscular Volume 87.9 fL (80.0-100.0); Monocytes # (auto) 0.5 10 ^3/uL (0-1.3); Monocytes % (auto) 8.1 % (0.0-12.0); Neutrophils # (auto) 2.8 10 ^3/uL (1.6-8.6); Neutrophils % (auto) 49.6 % (37.0-80.0); Nucleated Red Blood Cells % 0.1 %; Red Blood Cells 4.57 10^6/uL (4.0-5.20); Red Cell Distribution Width 13.3 % (11.8-14.3); White Blood Cell 5.6 10^3/uL (4.4-10.8)
[2022-04-09 08:30] VITALS: BP 123/78
[2022-04-09 08:37] LABS: BUN/Creatinine Ratio 23.1; Calcium 8.4 mg/dL (8.5-10.1); Potassium 3.6 mmol/L (3.5-5.1)
[2022-04-09 09:00] VITALS: BP 114/73
[2022-04-09] MEDS: ASPirin 81 mg TAB PO SCH (09:34)
[2022-04-09] MEDS: DOCUSATE SOD 100 MG CAP PO SCH ×3 (09:34→21:15)
[2022-04-09] MEDS: PANTOPRAZOLE 40 MG/10 ML VIAL INJ IV SCH (09:34)
[2022-04-09] MEDS: ENOXAPARIN SOD 40 MG/0.4 ML SYRINGE SC SCH (09:34)
[2022-04-09] MEDS: DULoxetine HCL 30 MG CAP PO SCH ×2 (09:35→21:14)
[2022-04-09] MEDS: LORazepam 0.5 MG TAB PO PRN (09:35)
[2022-04-09] MEDS: HYDROcodone-ACET 5/325MG TAB PO PRN (09:35)
[2022-04-09 13:00] VITALS: BP 120/77
[2022-04-09 17:00] VITALS: BP 106/63
[2022-04-09] MEDS: ATORVASTATIN 20 MG TAB PO SCH (21:14)
[2022-04-09] MEDS: INSULIN LANTUS (GLARGINE) 1 /0.01ml (100units/ml) SC SCH (21:17)
[2022-04-09 22:00] VITALS: BP 100/61
[2022-04-10] VITALS (7 sets, daily range): BP systolic 91–199; BP diastolic 56–110
[2022-04-10] MEDS: InsuLIN REG 1unit/0.01ml Soln (100units/ml) SC SCH ×4 (06:00→23:26)
[2022-04-10] MEDS: SUCRALFATE 1 GM/10 ML ORAL SUSP PO SCH ×2 (06:08→17:37)
[2022-04-10] MEDS: ACCU-CHEK COMFORT CURVE STRIP VI SCH ×4 (06:08→23:26)
[2022-04-10] MEDS: SOD CHL 0.9%/ KCL 20MEQ 1,000 ML IV SCH ×2 (06:08→16:27)
[2022-04-10] MEDS: CLINDAMYCIN 600MG IV 50 ML IV SCH ×3 (06:09→21:28)
[2022-04-10] MEDS: HYDROcodone-ACET 5/325MG TAB PO PRN (06:51)
[2022-04-10] MEDS: PROMETHAZINE HCL 25 MG/ML 1ML IV PRN ×2 (06:52→11:30)
[2022-04-10] MEDS: AMPICILLIN & SULBACTAM SODIUM 3 GM in SODIUM CHL 0.9% 100 ML IV SCH ×3 (07:15→23:18)
[2022-04-10 07:54] LABS: Basophils # (auto) 0.1 10 ^3/uL (0-0.2); Basophils % (auto) 0.9 % (0.0-2.0); Eosinophils # (auto) 0.3 10 ^3/uL (0-0.8); Eosinophils % (auto) 3.1 % (0.0-7.0); Hematocrit 35.6 % (36.0-46.0); Hemoglobin 12.1 g/dL (12.2-16.2); Lymphocytes % (auto) 34.4 % (10.0-50.0); Mean Corpuscular Hgb Conc. 33.9 g/dL (32.0-36.0); Mean Corpuscular Volume 88.4 fL (80.0-100.0); Monocytes # (auto) 0.5 10 ^3/uL (0-1.3); Monocytes % (auto) 5.3 % (0.0-12.0); Neutrophils # (auto) 4.8 10 ^3/uL (1.6-8.6); Neutrophils % (auto) 56.3 % (37.0-80.0); Nucleated Red Blood Cells % 0.1 %; Red Blood Cells 4.03 10^6/uL (4.0-5.20); Red Cell Distribution Width 13.2 % (11.8-14.3); White Blood Cell 8.6 10^3/uL (4.4-10.8)
[2022-04-10 08:08] LABS: Calcium 7.9 mg/dL (8.5-10.1); Potassium 3.8 mmol/L (3.5-5.1)
[2022-04-10 08:10] LABS: BUN/Creatinine Ratio 31.4
[2022-04-10] MEDS: LORazepam 0.5 MG TAB PO PRN ×3 (08:14→21:29)
[2022-04-10] MEDS: ENOXAPARIN SOD 40 MG/0.4 ML SYRINGE SC SCH (09:42)
[2022-04-10] MEDS: PANTOPRAZOLE 40 MG/10 ML VIAL INJ IV SCH (09:42)
[2022-04-10] MEDS: DOCUSATE SOD 100 MG CAP PO SCH ×2 (09:42→21:35)
[2022-04-10] MEDS: DULoxetine HCL 30 MG CAP PO SCH ×3 (09:42→21:29)
[2022-04-10] MEDS: ASPirin 81 mg TAB PO SCH (09:42)
[2022-04-10] MEDS: MORPHINE SULFATE INJ 2 MG/ml SYRG IV PRN (11:25)
[2022-04-10] MEDS ORDERED: cloNIDine HCL 0.1 MG TAB PO PRN (14:15)
[2022-04-10] MEDS: INSULIN LANTUS (GLARGINE) 1 /0.01ml (100units/ml) SC SCH (21:24)
[2022-04-10] MEDS: ATORVASTATIN 20 MG TAB PO SCH (21:28)
[2022-04-11 05:00] VITALS: BP 116/76
[2022-04-11] MEDS: InsuLIN REG 1unit/0.01ml Soln (100units/ml) SC SCH ×3 (06:00→18:00)
[2022-04-11] MEDS: SUCRALFATE 1 GM/10 ML ORAL SUSP PO SCH ×2 (06:22→17:02)
[2022-04-11] MEDS: CLINDAMYCIN 600MG IV 50 ML IV SCH ×2 (06:22→14:45)
[2022-04-11] MEDS: ACCU-CHEK COMFORT CURVE STRIP VI SCH ×3 (06:22→18:00)
[2022-04-11 08:30] VITALS: BP 95/53
[2022-04-11 09:00] VITALS: BP 95/53
[2022-04-11] MEDS: AMPICILLIN & SULBACTAM SODIUM 3 GM in SODIUM CHL 0.9% 100 ML IV SCH ×2 (09:54→17:05)
[2022-04-11] MEDS: ASPirin 81 mg TAB PO SCH (09:56)
[2022-04-11] MEDS: PANTOPRAZOLE 40 MG/10 ML VIAL INJ IV SCH (09:56)
[2022-04-11] MEDS: DULoxetine HCL 30 MG CAP PO SCH (09:56)
[2022-04-11] MEDS: DOCUSATE SOD 100 MG CAP PO SCH (10:00)
[2022-04-11] MEDS: ENOXAPARIN SOD 40 MG/0.4 ML SYRINGE SC SCH (10:00)
[2022-04-11] MEDS: HYDROcodone-ACET 5/325MG TAB PO PRN ×2 (10:15→17:02)
[2022-04-11 10:21] LABS: Basophils # (auto) 0.1 10 ^3/uL (0-0.2); Basophils % (auto) 0.9 % (0.0-2.0); Eosinophils # (auto) 0.3 10 ^3/uL (0-0.8); Eosinophils % (auto) 3.2 % (0.0-7.0); Hematocrit 37.1 % (36.0-46.0); Hemoglobin 12.6 g/dL (12.2-16.2); Lymphocytes # (auto) 2.4 10 ^3/uL (0.4-5.4); Lymphocytes % (auto) 29.4 % (10.0-50.0); Mean Corpuscular Hemoglobin 29.8 pg (28.0-32.0); Mean Corpuscular Hgb Conc. 33.9 g/dL (32.0-36.0); Mean Corpuscular Volume 88.1 fL (80.0-100.0); Monocytes # (auto) 0.5 10 ^3/uL (0-1.3); Monocytes % (auto) 5.9 % (0.0-12.0); Neutrophils # (auto) 4.9 10 ^3/uL (1.6-8.6); Neutrophils % (auto) 60.6 % (37.0-80.0); Nucleated Red Blood Cells % 0.1 %; Red Blood Cells 4.21 10^6/uL (4.0-5.20); Red Cell Distribution Width 13.4 % (11.8-14.3); White Blood Cell 8.1 10^3/uL (4.4-10.8)
[2022-04-11 10:43] LABS: Calcium 8.4 mg/dL (8.5-10.1); Potassium 3.8 mmol/L (3.5-5.1)
[2022-04-11 10:45] LABS: BUN/Creatinine Ratio 40.7
[2022-04-11 13:00] VITALS: BP 118/78
[2022-04-11] MEDS ORDERED: CLIN300C8 PO (13:24)
[2022-04-11] MEDS ORDERED: LEVO500T31 PO (13:24)
[2022-04-11] MEDS ORDERED: PANT40TA2 PO (13:24)
[2022-04-11] MEDS ORDERED: SACC250C PO (13:24)
[2022-04-11] MEDS ORDERED: ATOR10TA PO (13:24)
[2022-04-11 14:49] VITALS: BP 118/78
[2022-04-11 17:00] VITALS: BP 94/63
[2022-04-11] MEDS: LORazepam 0.5 MG TAB PO PRN (17:03)
== END 2022-04-11 18:00 | disposition home health service (06) | DRG 420 ==
LOC: ER 10:09 → TELE 14:33 → TELE-WESTW 18:45
PROVIDERS: ADMIT Hospitalist; ATTEND Internal Medicine
DX: E10.10 Type 1 diabetes mellitus with ketoacidosis without coma (principal); N17.0 Acute kidney failure with tubular necrosis; E87.3 Alkalosis; E10.22 Type 1 diabetes mellitus with diabetic chronic kidney disease; I88.9 Nonspecific lymphadenitis, unspecified; E78.5 Hyperlipidemia, unspecified; E86.0 Dehydration; E87.6 Hypokalemia; N18.32 Chronic kidney disease, stage 3b; F12.10 Cannabis abuse, uncomplicated; F17.210 Nicotine dependence, cigarettes, uncomplicated; F32.A Depression, unspecified; F41.9 Anxiety disorder, unspecified; J44.9 Chronic obstructive pulmonary disease, unspecified; Z20.822 Contact with and (suspected) exposure to COVID-19; K21.9 Gastro-esophageal reflux disease without esophagitis; L73.2 Hidradenitis suppurativa; Z82.49 Family history of ischemic heart disease and other diseases of the circulatory system; Z83.3 Family history of diabetes mellitus; Z71.51 Drug abuse counseling and surveillance of drug abuser; Z91.19 Patient's noncompliance with other medical treatment and regimen; Z71.6 Tobacco abuse counseling; Z79.899 Other long term (current) drug therapy; Z68.26 Body mass index [BMI] 26.0-26.9, adult; Z79.4 Long term (current) use of insulin
CPT/HCPCS: 36415; 36600; 71045; 71250; 76705; 76881; 80048; 80053; 80061; 80307; 81001; 82010; 82550; 82728; 82805; 82962; 83036; 83615; 83690; 83735; 83880; 83930; 83970; 84100; 84132; 84156; 84443; 84484; 84550; 84702; 85025; 85379; 85610; 85652; 85730; 86141; 87040; 87086; 93005; 94640; 96361; 96365; 96367; 96368; 96372; 96375; 99291; C9113; G0378; J1815; J2405; J3490

== ENCOUNTER 2022-07-16 12:25 | Emergency (ER) | payer MEDICAID ==
[~2022-07-16] VITALS: Ht 157.5 cm; Wt 130.0 kg
[~2022-07-16 12:25] MED LIST changes: -AMOX500T86 PO; -ATO40T PO; +ATOR10TA PO; +LEVO500T31 PO; -ONDA-144 PO; -PREG150C PO; +SACC250C PO; -SUCR1TAB22 OR; +TRAM50TA2 PO
[2022-07-16 15:00] VITALS: BP 110/74
[2022-07-16] MEDS ORDERED: LIDOCAINE 1% HCL (LOCAL ANESTH.) INJ 20ML MDV IJ ONE (15:00)
[2022-07-16] MEDS ORDERED: cefTRIAXone SOD 1,000 MG VL IM ONE (15:00)
[2022-07-16] MEDS ORDERED: BACDST PO (15:28)
[2022-07-16] MEDS ORDERED: IBUP800T27 PO (15:28)
== END 2022-07-16 15:43 | disposition home or self-care (01) ==
LOC: ER 12:25
DX: N76.4 Abscess of vulva (principal); F41.9 Anxiety disorder, unspecified; N76.0 Acute vaginitis; E11.9 Type 2 diabetes mellitus without complications; K21.9 Gastro-esophageal reflux disease without esophagitis; E78.5 Hyperlipidemia, unspecified; F17.210 Nicotine dependence, cigarettes, uncomplicated; F12.10 Cannabis abuse, uncomplicated; Z88.2 Allergy status to sulfonamides
CPT/HCPCS: 56405; 87205; 96372; 99284; J0696; J2001

== ENCOUNTER 2022-10-01 12:54 | Inpatient (IN) | payer MEDICAID ==
[~2022-10-01] VITALS: Ht 157.5 cm; Wt 73.0 kg
[~2022-10-01 12:54] MED LIST changes: +BACDST PO; +IBUP800T27 PO
[2022-10-01] MEDS ORDERED: VANCOMYCIN PER PHARMACY 0 MG IV SCH (16:45)
[2022-10-01] MEDS ORDERED: PIPERACILLIN-TAZO 4.5GM 100 ML IV ONE (16:45)
[2022-10-01] MEDS ORDERED: ONDANSETRON HCL 4 MG/2 ML VIAL IV ONE (16:45)
[2022-10-01] MEDS ORDERED: SODIUM CHLORIDE 0.9% 1,000 ML IV ONE (16:45)
[2022-10-01] MEDS ORDERED: VANCOMYCIN 1GM/250ML 250 ML IV ONE (17:00)
[2022-10-01 17:45] LABS: Basophils # (auto) 0.2 10 ^3/uL (0-0.2); Basophils % (auto) 1.1 % (0.0-2.0); Eosinophils # (auto) 0.2 10 ^3/uL (0-0.8); Eosinophils % (auto) 1.4 % (0.0-7.0); Hematocrit 38.5 % (36.0-46.0); Hemoglobin 12.9 g/dL (12.2-16.2); Lymphocytes # (auto) 1.5 10 ^3/uL (0.4-5.4); Mean Corpuscular Hemoglobin 29.6 pg (28.0-32.0); Mean Corpuscular Hgb Conc. 33.4 g/dL (32.0-36.0); Mean Corpuscular Volume 88.5 fL (80.0-100.0); Monocytes % (auto) 6.7 % (0.0-12.0); Neutrophils # (auto) 12.2 10 ^3/uL (1.6-8.6); Neutrophils % (auto) 80.8 % (37.0-80.0); Nucleated Red Blood Cells % 0.1 %; Red Blood Cells 4.35 10^6/uL (4.0-5.20); Red Cell Distribution Width 13.8 % (11.8-14.3); White Blood Cell 15.1 10^3/uL (4.4-10.8)
[2022-10-01 18:11] LABS: Albumin 3.2 g/dL (3.4-5.0); Blood Urea Nitrogen 32 mg/dL (7-18); Calcium 9.2 mg/dL (8.5-10.1); Carbon Dioxide 25 mmol/L (21-32); Glucose 284 mg/dL (74-106); Magnesium 2.6 mg/dL (1.6-2.6)
[2022-10-01 18:14] LABS: Alanine Aminotransferase 25 U/L (13-56); Alkaline Phosphatase 152 U/L (45-117); Aspartate Aminotransferase 8 U/L (15-37); BUN/Creatinine Ratio 19.5; Bilirubin, Total 0.2 mg/dL (0.2-1.0); GFR African American 42 mL/min; GFR Non-African American 35 mL/min; Total Protein 6.6 g/dL (6.4-8.2)
[2022-10-01 18:39] LABS: Potassium 4.7 mmol/L (3.5-5.1); Sodium 126 mmol/L (136-145)
[2022-10-01 18:53] LABS: Anion Gap 10 (5-15); Chloride 91 mmol/L (98-107)
[2022-10-01] MEDS ORDERED: IOHEXOL 300 MG/ML 100ML BOTTLE IJ ONE (19:55)
[2022-10-02] MEDS ORDERED: SODIUM CHLORIDE 0.9% 1,000 ML IV SCH (01:30)
[2022-10-02] MEDS ORDERED: NITROGLYCERIN 0.4 MG SL TAB SL PRN (01:30)
[2022-10-02] MEDS ORDERED: ACETAMINOPHEN 325 MG TAB PO PRN (01:30)
[2022-10-02] MEDS ORDERED: DEXTROSE (50%) 50ML SYRG IV PRN (01:30)
[2022-10-02] MEDS ORDERED: MORPHINE SULFATE INJ 2 MG/ml SYRG IV PRN (01:30)
[2022-10-02] MEDS ORDERED: DOCUSATE SOD 100 MG CAP PO PRN (01:30)
[2022-10-02] MEDS ORDERED: ALBUMIN 25% 100 ML IV ONE (01:30)
[2022-10-02] MEDS: HYDROcodone-ACET 5/325MG TAB PO PRN ×2 (01:58→22:46)
[2022-10-02 02:35] LABS: Basophils # (auto) 0.1 10 ^3/uL (0-0.2); Basophils % (auto) 0.6 % (0.0-2.0); Eosinophils # (auto) 0.3 10 ^3/uL (0-0.8); Eosinophils % (auto) 2.4 % (0.0-7.0); Hemoglobin 12.7 g/dL (12.2-16.2); Lymphocytes # (auto) 1.5 10 ^3/uL (0.4-5.4); Mean Corpuscular Hemoglobin 30.1 pg (28.0-32.0); Mean Corpuscular Hgb Conc. 34.2 g/dL (32.0-36.0); Monocytes # (auto) 0.9 10 ^3/uL (0-1.3); Monocytes % (auto) 6.5 % (0.0-12.0); Neutrophils # (auto) 10.8 10 ^3/uL (1.6-8.6); Neutrophils % (auto) 79.5 % (37.0-80.0); Red Blood Cells 4.21 10^6/uL (4.0-5.20); Red Cell Distribution Width 14.2 % (11.8-14.3); White Blood Cell 13.6 10^3/uL (4.4-10.8)
[2022-10-02 02:54] LABS: Albumin 2.9 g/dL (3.4-5.0); BUN/Creatinine Ratio 24.2; Calcium 8.9 mg/dL (8.5-10.1); Potassium 4.3 mmol/L (3.5-5.1)
[2022-10-02 02:57] LABS: Bilirubin, Total 0.2 mg/dL (0.2-1.0); Total Protein 6.7 g/dL (6.4-8.2)
[2022-10-02] MEDS: PIPERACILLIN-TAZOB 2.25GM 50 ML IV SCH ×4 (05:32→23:30)
[2022-10-02] MEDS: ACCU-CHEK COMFORT CURVE STRIP VI SCH ×4 (06:43→22:45)
[2022-10-02] MEDS: InsuLIN REG 1unit/0.01ml Soln (100units/ml) SC SCH ×4 (06:48→22:34)
[2022-10-02] MEDS ORDERED: CLINDAMYCIN 900MG IV 50 ML IV ONE (09:45)
[2022-10-02] MEDS ORDERED: SODIUM CHLORIDE 0.9% 1,700 ML IV ONE (09:45)
[2022-10-02] MEDS ORDERED: INSULIN LANTUS (GLARGINE) 1 /0.01ml (100units/ml) SC ONE (09:45)
[2022-10-02] MEDS ORDERED: ASPirin 81 mg TAB PO SCH (10:00)
[2022-10-02] MEDS: SODIUM CHLORIDE 0.9% 1,000 ML IV SCH ×2 (10:18→17:45)
[2022-10-02] MEDS: FAMOTIDINE (10MG/ML) 2ML VL IV SCH ×2 (10:36→22:44)
[2022-10-02] MEDS: CLINDAMYCIN 600MG IV 50 ML IV SCH (18:37)
[2022-10-02 22:00] VITALS: BP 93/60
[2022-10-02] MEDS ORDERED: INSULIN LANTUS (GLARGINE) 1 /0.01ml (100units/ml) SC SCH (22:00)
[2022-10-02] MEDS: ATORVASTATIN 20 MG TAB PO SCH (22:45)
[2022-10-03] MEDS: SODIUM CHLORIDE 0.9% 1,000 ML IV SCH ×2 (01:49→09:04)
[2022-10-03] MEDS: CLINDAMYCIN 600MG IV 50 ML IV SCH ×2 (01:51→09:03)
[2022-10-03 05:00] VITALS: BP 120/73
[2022-10-03] MEDS: HYDROcodone-ACET 5/325MG TAB PO PRN ×3 (05:16→17:45)
[2022-10-03] MEDS: PIPERACILLIN-TAZOB 2.25GM 50 ML IV SCH ×3 (05:20→17:45)
[2022-10-03] MEDS: InsuLIN REG 1unit/0.01ml Soln (100units/ml) SC SCH ×4 (06:04→21:49)
[2022-10-03 06:16] LABS: Basophils # (auto) 0.1 10 ^3/uL (0-0.2); Basophils % (auto) 0.6 % (0.0-2.0); Eosinophils # (auto) 0.3 10 ^3/uL (0-0.8); Eosinophils % (auto) 2.7 % (0.0-7.0); Hematocrit 32.8 % (36.0-46.0); Hemoglobin 11.3 g/dL (12.2-16.2); Lymphocytes # (auto) 1.7 10 ^3/uL (0.4-5.4); Lymphocytes % (auto) 16.5 % (10.0-50.0); Mean Corpuscular Hemoglobin 30.6 pg (28.0-32.0); Mean Corpuscular Hgb Conc. 34.4 g/dL (32.0-36.0); Mean Corpuscular Volume 88.9 fL (80.0-100.0); Monocytes # (auto) 0.8 10 ^3/uL (0-1.3); Monocytes % (auto) 7.6 % (0.0-12.0); Neutrophils # (auto) 7.7 10 ^3/uL (1.6-8.6); Neutrophils % (auto) 72.6 % (37.0-80.0); Nucleated Red Blood Cells % 0.1 %; Red Blood Cells 3.69 10^6/uL (4.0-5.20); Red Cell Distribution Width 14.2 % (11.8-14.3); White Blood Cell 10.5 10^3/uL (4.4-10.8)
[2022-10-03 06:32] LABS: Calcium 7.9 mg/dL (8.5-10.1); Potassium 4.3 mmol/L (3.5-5.1)
[2022-10-03 06:39] LABS: Albumin 2.4 g/dL (3.4-5.0); BUN/Creatinine Ratio 27.7; Bilirubin, Total 0.2 mg/dL (0.2-1.0)
[2022-10-03] MEDS: ACCU-CHEK COMFORT CURVE STRIP VI SCH ×4 (06:59→21:52)
[2022-10-03 09:00] VITALS: BP 134/78
[2022-10-03] MEDS: FAMOTIDINE (10MG/ML) 2ML VL IV SCH (09:03)
[2022-10-03 13:00] VITALS: BP 117/79
[2022-10-03 16:47] VITALS: BP 100/65
[2022-10-03] MEDS: LORazepam 0.5 MG TAB PO PRN (21:16)
[2022-10-03] MEDS: ATORVASTATIN 20 MG TAB PO SCH (21:33)
[2022-10-03] MEDS: DOXYCYCLINE 100 MG TAB/CAP PO SCH (21:34)
[2022-10-03] MEDS: INSULIN LANTUS (GLARGINE) 1 /0.01ml (100units/ml) SC SCH (21:50)
[2022-10-03 22:00] VITALS: BP 112/65
[2022-10-04] MEDS: PIPERACILLIN-TAZOB 2.25GM 50 ML IV SCH ×2 (00:27→05:27)
[2022-10-04 05:00] VITALS: BP 101/60
[2022-10-04] MEDS: INSULIN LISPRO (HUMAN) 100 UNITS/ML ML SC SCH ×2 (06:42→11:30)
[2022-10-04] MEDS: ACCU-CHEK COMFORT CURVE STRIP VI SCH ×4 (06:42→22:19)
[2022-10-04] MEDS: InsuLIN REG 1unit/0.01ml Soln (100units/ml) SC SCH ×4 (06:43→22:18)
[2022-10-04 08:00] VITALS: BP 161/95
[2022-10-04 09:00] VITALS: BP 161/95
[2022-10-04] MEDS: INSULIN LANTUS (GLARGINE) 1 /0.01ml (100units/ml) SC SCH ×2 (10:00→22:18)
[2022-10-04] MEDS: DOXYCYCLINE 100 MG TAB/CAP PO SCH (10:18)
[2022-10-04] MEDS: HYDROcodone-ACET 5/325MG TAB PO PRN ×2 (10:19→16:29)
[2022-10-04] MEDS ORDERED: VANCOMYCIN PER PHARMACY 0 MG IV SCH (11:00)
[2022-10-04] MEDS ORDERED: cefTRIAXone 1GM/50ML D5W 50 ML IV ONE (11:00)
[2022-10-04] MEDS ORDERED: VANCOMYCIN 1GM/250ML 250 ML IV ONE (11:15)
[2022-10-04 14:14] LABS: INR 0.91 (0.9-1.15); Partial Thromboplastin Time 33.1 sec (24.6-33.4)
[2022-10-04] MEDS: ONDANSETRON HCL 4 MG/2 ML VIAL IV PRN (14:24)
[2022-10-04 17:00] VITALS: BP 137/85
[2022-10-04 20:00] VITALS: BP 114/71
[2022-10-04] MEDS: LORazepam 0.5 MG TAB PO PRN (21:56)
[2022-10-04] MEDS: ATORVASTATIN 20 MG TAB PO SCH (21:56)
[2022-10-04 22:00] VITALS: BP 114/71
[2022-10-05 05:00] VITALS: BP 107/59
[2022-10-05] MEDS: InsuLIN REG 1unit/0.01ml Soln (100units/ml) SC SCH ×5 (06:32→23:03)
[2022-10-05] MEDS: ACCU-CHEK COMFORT CURVE STRIP VI SCH ×4 (06:35→22:45)
[2022-10-05 08:00] VITALS: BP 145/93
[2022-10-05] MEDS ORDERED: cefTRIAXone 1GM/50ML D5W 50 ML IV SCH (09:00)
[2022-10-05] MEDS: INSULIN LANTUS (GLARGINE) 1 /0.01ml (100units/ml) SC SCH ×2 (10:00→22:45)
[2022-10-05] MEDS: HYDROcodone-ACET 5/325MG TAB PO PRN ×2 (10:19→22:49)
[2022-10-05] MEDS: ONDANSETRON HCL 4 MG/2 ML VIAL IV PRN (12:42)
[2022-10-05 12:51] LABS: Urine Bacteria NONE SEEN /hpf (None Seen); Urine Blood Negative /uL (Negative); Urine Specific Gravity 1.015 (1.001-1.035); Urine WBC 1 /hpf (0 - 5)
[2022-10-05 13:00] VITALS: BP 139/81
[2022-10-05] MEDS ORDERED: ACCU-CHEK COMFORT CURVE STRIP VI ONE (13:00)
[2022-10-05] MEDS ORDERED: HYDROmorphone HCL 2 MG/ML VL/or syr IV PRN ×2 (13:00)
[2022-10-05] MEDS ORDERED: METOCLOPRAMIDE HCL 5MG/ml INJ 2ml VIAL IV PRN (13:00)
[2022-10-05] MEDS ORDERED: MORPHINE SULFATE 4 MG/ML SYR/VIAL IV PRN (13:00)
[2022-10-05] MEDS ORDERED: fentaNYL CITRATE 100 MCG/2 ML VL ONE (13:13)
[2022-10-05] MEDS ORDERED: MIDAZOLAM HCL 2MG/2ML 2ml VIAL (1mg/ml) ONE (13:13)
[2022-10-05] MEDS ORDERED: ONDANSETRON HCL 4 MG/2 ML VIAL ONE (13:14)
[2022-10-05] MEDS ORDERED: PROPOFOL 10 MG/ML 20 ML IV ONE (13:14)
[2022-10-05] MEDS ORDERED: SODIUM CHLORIDE LOCK 10 ML ONE (13:14)
[2022-10-05] MEDS ORDERED: HYDROmorphone HCL 2 MG/ML VL/or syr IV ONE ×3 (14:47→15:34)
[2022-10-05 17:00] VITALS: BP 124/71
[2022-10-05] MEDS: VANCOMYCIN 1GM/250ML 250 ML IV SCH (17:37)
[2022-10-05 20:00] VITALS: BP 126/83
[2022-10-05 22:00] VITALS: BP 126/83
[2022-10-05] MEDS: ATORVASTATIN 20 MG TAB PO SCH (22:47)
[2022-10-06] MEDS: ONDANSETRON HCL 4 MG/2 ML VIAL IV PRN (00:50)
[2022-10-06 05:00] VITALS: BP 118/69
[2022-10-06] MEDS: ACCU-CHEK COMFORT CURVE STRIP VI SCH ×3 (06:47→16:31)
[2022-10-06] MEDS: InsuLIN REG 1unit/0.01ml Soln (100units/ml) SC SCH ×4 (06:48→21:36)
[2022-10-06 09:00] VITALS: BP 127/77
[2022-10-06] MEDS: VANCOMYCIN 1GM/250ML 250 ML IV SCH (09:45)
[2022-10-06] MEDS: INSULIN LANTUS (GLARGINE) 1 /0.01ml (100units/ml) SC SCH ×2 (09:58→21:42)
[2022-10-06] MEDS: HYDROcodone-ACET 5/325MG TAB PO PRN ×2 (11:30→16:00)
[2022-10-06 13:00] VITALS: BP 104/60
[2022-10-06] MEDS ORDERED: BACDST PO (16:11)
[2022-10-06 17:00] VITALS: BP 100/63
[2022-10-06] MEDS: LORazepam 0.5 MG TAB PO PRN (19:53)
[2022-10-06] MEDS: ATORVASTATIN 20 MG TAB PO SCH (21:40)
[2022-10-06] MEDS: SULFAMETHOX W/TRIMETH(800/160MG) DS TAB PO SCH (21:40)
[2022-10-06 22:00] VITALS: BP 101/50
[2022-10-07 05:00] VITALS: BP 104/58
[2022-10-07] MEDS: ACCU-CHEK COMFORT CURVE STRIP VI SCH ×3 (06:11→11:59)
[2022-10-07] MEDS: InsuLIN REG 1unit/0.01ml Soln (100units/ml) SC SCH ×2 (06:11→12:13)
[2022-10-07 08:51] VITALS: BP 114/68
[2022-10-07] MEDS ORDERED: Juven Orange Powder PACKET 27.5gm PO SCH (10:00)
[2022-10-07] MEDS: SULFAMETHOX W/TRIMETH(800/160MG) DS TAB PO SCH (10:53)
[2022-10-07] MEDS: INSULIN LANTUS (GLARGINE) 1 /0.01ml (100units/ml) SC SCH (11:03)
[2022-10-07 12:49] VITALS: BP 109/72
[2022-10-07 15:41] VITALS: BP 109/72
== END 2022-10-07 16:30 | disposition home health service (06) | DRG 531 ==
LOC: ER 12:56 → TELE 10-02 01:39 → TELE-EAST 10-02 21:16
PROVIDERS: ADMIT Nurse Practitioner Family; ATTEND Student in an Organized Health Care Education/Training Program
PROC: 0JBC0ZZ Excision of Pelvic Region Subcutaneous Tissue and Fascia, Open Approach (ICD-10-PCS; principal; 2022-10-05 13:23)
DX: N73.0 Acute parametritis and pelvic cellulitis (principal); E11.00 Type 2 diabetes mellitus with hyperosmolarity without nonketotic hyperglycemic-hyperosmolar coma (NKHHC); E87.0 Hyperosmolality and hypernatremia; N17.9 Acute kidney failure, unspecified; E11.22 Type 2 diabetes mellitus with diabetic chronic kidney disease; I95.9 Hypotension, unspecified; E87.1 Hypo-osmolality and hyponatremia; D72.829 Elevated white blood cell count, unspecified; Z20.822 Contact with and (suspected) exposure to COVID-19; L72.3 Sebaceous cyst; L02.211 Cutaneous abscess of abdominal wall; E11.65 Type 2 diabetes mellitus with hyperglycemia; E78.5 Hyperlipidemia, unspecified; L02.93 Carbuncle, unspecified; E86.0 Dehydration; N18.9 Chronic kidney disease, unspecified; I12.9 Hypertensive chronic kidney disease with stage 1 through stage 4 chronic kidney disease, or unspecified chronic kidney disease; L03.311 Cellulitis of abdominal wall; K21.9 Gastro-esophageal reflux disease without esophagitis; F17.210 Nicotine dependence, cigarettes, uncomplicated; Z79.4 Long term (current) use of insulin; Z82.49 Family history of ischemic heart disease and other diseases of the circulatory system; Z83.3 Family history of diabetes mellitus; Z91.199 Patient's noncompliance with other medical treatment and regimen due to unspecified reason
CPT/HCPCS: 36415; 36600; 71045; 74177; 76705; 80053; 80202; 81001; 82565; 82805; 82962; 83036; 83735; 83880; 84443; 84484; 84702; 85025; 85610; 85730; 86850; 86900; 86901; 87040; 87077; 87081; 87186; 87205; 87426; 93306; 96365; 96367; 96375; G0378; J0696; J1815; J2250; J2405; J2543; J2704; J3490; P9047

== ENCOUNTER 2024-04-11 11:50 | Inpatient (IN) | payer MEDICAID ==
[~2024-04-11] VITALS: Ht 157.5 cm; Wt 98.0 kg
[2024-04-11 01:00] VITALS: BP 87/59; PULSE 77; RESP 19; TEMP 97.5; O2SAT 95
[~2024-04-11 11:50] MED LIST changes: -CLIN300C8 PO; -IBUP800T27 PO; -LEVO500T31 PO; -SACC250C PO
[2024-04-11 13:21] LABS: Basophils # (auto) 0.1 10 ^3/uL (0-0.2); Basophils % (auto) 0.4 % (0.0-2.0); Eosinophils # (auto) 0.1 10 ^3/uL (0-0.8); Eosinophils % (auto) 0.4 % (0.0-7.0); Hemoglobin 15.3 g/dL (12.2-16.2); Lymphocytes # (auto) 1.4 10 ^3/uL (0.4-5.4); Nucleated Red Blood Cells % 0.1 %
[2024-04-11 13:23] LABS: Hematocrit 46.3 % (36.0-46.0); Mean Corpuscular Hemoglobin 29.9 pg (28.0-32.0); Mean Corpuscular Hgb Conc. 33.1 g/dL (32.0-36.0); Mean Corpuscular Volume 90.3 fL (80.0-100.0); Monocytes # (auto) 0.5 10 ^3/uL (0-1.3); Monocytes % (auto) 2.9 % (0.0-12.0); Neutrophils # (auto) 13.8 10 ^3/uL (1.6-8.6); Neutrophils % (auto) 87.3 % (37.0-80.0); Red Blood Cells 5.13 10^6/uL (4.0-5.20); Red Cell Distribution Width 13.6 % (11.8-14.3); White Blood Cell 15.8 10^3/uL (4.4-10.8)
[2024-04-11 13:35] LABS: Alanine Aminotransferase 13 U/L (7-40); Albumin 4.1 g/dL (3.2-4.8); Alkaline Phosphatase 159 U/L (46-116); Anion Gap 6 (5-15); Aspartate Aminotransferase 15 U/L (13-40); BUN/Creatinine Ratio 32.1 (10.0-20.0); Bilirubin, Total 0.4 mg/dL (0.2-1.0); Blood Urea Nitrogen 53 mg/dL (9-23); Calcium 9.6 mg/dL (8.5-10.1); Carbon Dioxide 35 mmol/L (20-30); Chloride 86 mmol/L (98-107); Glucose 274 mg/dL (74-106); Potassium 3.5 mmol/L (3.5-5.1); Sodium 127 mmol/L (136-145); Total Protein 7.3 g/dL (5.7-8.2)
[2024-04-11] MEDS: PIPERACILLIN-TAZO 4.5GM 100 ML IV ONE (14:39)
[2024-04-11] MEDS ORDERED: ACETAMINOPHEN 325 MG TAB PO PRN ×2 (15:30)
[2024-04-11] MEDS ORDERED: VANCOMYCIN PER PHARMACY 0 MG IV SCH (15:30)
[2024-04-11] MEDS: SODIUM CHLORIDE 0.9% 1,000 ML IV SCH (15:30)
[2024-04-11] MEDS: CLINDAMYCIN 600MG IV 50 ML IV ONE (15:30)
[2024-04-11] MEDS ORDERED: DEXTROSE (50%) 50ML SYRG IV PRN (15:30)
[2024-04-11] MEDS: VANCOMYCIN 1GM/200ML 200 ML IV ONE (15:50)
[2024-04-11 16:43] LABS: Triglycerides 180 mg/dL (< 150)
[2024-04-11 16:44] LABS: LDL Cholesterol 164 mg/dL (< 100)
[2024-04-11 16:45] LABS: Cholesterol 238 mg/dL (< 200); HDL Cholesterol 43 mg/dL (40-59)
[2024-04-11 16:53] LABS: Urine Bacteria None Seen /hpf (None Seen)
[2024-04-11] MEDS: ACCU-CHEK COMFORT CURVE STRIP VI SCH (17:00)
[2024-04-11] MEDS: InsuLIN REG 1unit/0.01ml Soln (100units/ml) SC SCH (17:00)
[2024-04-11 17:13] LABS: Urine Amorphous Crystal FEW /hpf (None Seen); Urine Blood 1+ /uL (Negative); Urine Budding Yeast OCCASIONAL /hpf (None Seen); Urine Clarity Turbid (Clear); Urine Color Yellow (Yellow); Urine Protein, UAD 2+ (Negative); Urine Specific Gravity 1.014 (1.001-1.035); Urine Urobilinogen Normal (Negative); Urine WBC 83 /hpf (0 - 5)
[2024-04-11] MEDS: NICOTINE 7MG/24HR TOPICAL PATCH TD ONE (18:37)
[2024-04-11 19:30] VITALS: PULSE 82; RESP 12; O2SAT 94
[2024-04-11] MEDS: traMADol HCL 50 MG TAB PO SCH (22:00)
[2024-04-11] MEDS: INSULIN LANTUS (GLARGINE) 1 /0.01ml (100units/ml) SC SCH (22:00)
[2024-04-11] MEDS: CLINDAMYCIN 600MG IV 50 ML IV SCH (23:00)
[2024-04-11] MEDS: ATORVASTATIN 20 MG TAB PO SCH (23:00)
[2024-04-11 23:41] VITALS: BP 99/62; PULSE 83; RESP 18; TEMP 98.2
[2024-04-12] VITALS (7 sets, daily range): BP systolic 99–123; BP diastolic 64–78; PULSE 77–86; RESP 17–19; TEMP 97.5–98.4; O2SAT 94–100
[2024-04-12] MEDS: DULoxetine HCL 30 MG CAP PO SCH (00:40)
[2024-04-12 06:27] LABS: Basophils # (auto) 0.1 10 ^3/uL (0-0.2); Basophils % (auto) 0.6 % (0.0-2.0); Eosinophils # (auto) 0.3 10 ^3/uL (0-0.8); Eosinophils % (auto) 2.1 % (0.0-7.0); Hematocrit 42.6 % (36.0-46.0); Hemoglobin 14.4 g/dL (12.2-16.2); Lymphocytes # (auto) 2.5 10 ^3/uL (0.4-5.4); Lymphocytes % (auto) 19.3 % (10.0-50.0); Mean Corpuscular Hemoglobin 29.9 pg (28.0-32.0); Mean Corpuscular Hgb Conc. 33.8 g/dL (32.0-36.0); Mean Corpuscular Volume 88.4 fL (80.0-100.0); Monocytes # (auto) 0.6 10 ^3/uL (0-1.3); Monocytes % (auto) 4.6 % (0.0-12.0); Neutrophils # (auto) 9.5 10 ^3/uL (1.6-8.6); Neutrophils % (auto) 73.4 % (37.0-80.0); Nucleated Red Blood Cells % 0.1 %; Red Blood Cells 4.82 10^6/uL (4.0-5.20); Red Cell Distribution Width 13.6 % (11.8-14.3)
[2024-04-12 06:36] LABS: Chloride 92 mmol/L (98-107); Potassium 2.8 mmol/L (3.5-5.1); Sodium 131 mmol/L (136-145)
[2024-04-12 06:37] LABS: Anion Gap 4 (5-15); Carbon Dioxide 35 mmol/L (20-30)
[2024-04-12 06:42] LABS: Glucose 156 mg/dL (74-106)
[2024-04-12 06:43] LABS: BUN/Creatinine Ratio 32.9 (10.0-20.0); Blood Urea Nitrogen 47 mg/dL (9-23)
[2024-04-12] MEDS: PANTOPRAZOLE 40 MG TAB PO SCH (11:19)
[2024-04-12] MEDS: OLANZapine 5 MG TAB PO SCH (11:19)
[2024-04-12] MEDS: ENOXAPARIN SOD 30 MG/0.3 ML SYRINGE SC SCH (11:19)
[2024-04-12] MEDS: NICOTINE 7MG/24HR TOPICAL PATCH TD SCH (11:20)
[2024-04-12] MEDS: VANCOMYCIN 750mg/150ml 150 ML IV ONE (15:58)
[2024-04-12] MEDS: HYDROcodone-ACET 5/325MG TAB PO PRN (22:19)
[2024-04-13 08:00] VITALS: RESP 18
[2024-04-13 09:09] VITALS: BP 103/61; PULSE 86; RESP 18; TEMP 98.4; O2SAT 98
[2024-04-13] MEDS: VANCOMYCIN 1GM/200ML 200 ML IV SCH (11:08)
[2024-04-13 12:00] LABS: Chloride 89 mmol/L (98-107); Potassium 3.3 mmol/L (3.5-5.1); Sodium 130 mmol/L (136-145)
[2024-04-13 12:01] LABS: Anion Gap 12 (5-15); Carbon Dioxide 29 mmol/L (20-30)
[2024-04-13 12:02] LABS: Calcium 9.5 mg/dL (8.7-10.4)
[2024-04-13 12:06] LABS: BUN/Creatinine Ratio 28.2 (10.0-20.0); Glucose 319 mg/dL (74-106)
[2024-04-13 12:10] LABS: Blood Urea Nitrogen 59 mg/dL (9-23)
[2024-04-13 14:30] VITALS: BP 106/59; PULSE 79; RESP 18; TEMP 97.7; O2SAT 93
[2024-04-13 16:57] VITALS: BP 130/90; PULSE 80; RESP 17; TEMP 97.6; O2SAT 96
[2024-04-13 20:00] VITALS: PULSE 73; RESP 16; O2SAT 96
[2024-04-13] MEDS: busPIRone HCL 10 MG TAB PO SCH (21:00)
[2024-04-13 22:00] VITALS: BP 156/90; PULSE 73; RESP 16; TEMP 97.9; O2SAT 96
[2024-04-14] VITALS (7 sets, daily range): BP systolic 106–150; BP diastolic 70–91; PULSE 71–87; RESP 16–19; TEMP 97.4–98.1; O2SAT 94–98
[2024-04-14] MEDS: ONDANSETRON HCL 4 MG/2 ML VIAL IV PRN (00:38)
[2024-04-14] MEDS: cloNIDine HCL 0.1 MG TAB PO ONE (00:38)
[2024-04-14] MEDS ORDERED: BUSP5TAB51 PO (09:33)
[2024-04-14] MEDS ORDERED: DULO60CA41 PO (09:33)
[2024-04-14] MEDS ORDERED: CLIN1CAP70 PO (09:33)
[2024-04-14] MEDS ORDERED: CEPH500C PO (09:33)
[2024-04-14] MEDS: DULoxetine HCL 30 MG CAP PO SCH (13:15)
== END 2024-04-14 18:00 | disposition home or self-care (01) | DRG 380 ==
LOC: ER 11:50 → TELE-EAST 15:42 → TELE 15:42 → TELE-EAST 23:40
PROVIDERS: ADMIT Registered Nurse; ATTEND Family Medicine
DX: E11.621 Type 2 diabetes mellitus with foot ulcer (principal); L97.519 Non-pressure chronic ulcer of other part of right foot with unspecified severity; N17.0 Acute kidney failure with tubular necrosis; E44.0 Moderate protein-calorie malnutrition; F33.1 Major depressive disorder, recurrent, moderate; L03.115 Cellulitis of right lower limb; E11.40 Type 2 diabetes mellitus with diabetic neuropathy, unspecified; E11.65 Type 2 diabetes mellitus with hyperglycemia; E78.5 Hyperlipidemia, unspecified; E86.0 Dehydration; F41.9 Anxiety disorder, unspecified; K21.9 Gastro-esophageal reflux disease without esophagitis; F17.210 Nicotine dependence, cigarettes, uncomplicated; Z83.3 Family history of diabetes mellitus; Z82.49 Family history of ischemic heart disease and other diseases of the circulatory system; Z79.899 Other long term (current) drug therapy; Z56.0 Unemployment, unspecified; Z79.4 Long term (current) use of insulin; Z68.39 Body mass index [BMI] 39.0-39.9, adult; X08.8XXA Exposure to other specified smoke, fire and flames, initial encounter; Y93.89 Activity, other specified; Y92.89 Other specified places as the place of occurrence of the external cause; Y99.8 Other external cause status
CPT/HCPCS: 36415; 73700; 73718; 80048; 80053; 80061; 80202; 81001; 82565; 82962; 83036; 85025; 87040; 93926; G0378; J1815; J2405; J2543; J3490

== ENCOUNTER 2024-06-03 12:21 | Inpatient (IN) | payer MEDICAID ==
[~2024-06-03] VITALS: Ht 157.5 cm; Wt 55.7 kg
[~2024-06-03 12:21] MED LIST changes: +BUSP5TAB51 PO; +CEPH500C PO; +CLIN1CAP70 PO; +DULO60CA41 PO
[2024-06-03 13:58] LABS: Basophils # (auto) 0.3 10 ^3/uL (0-0.2); Basophils % (auto) 1.2 % (0.0-2.0); Eosinophils # (auto) 0.1 10 ^3/uL (0-0.8); Eosinophils % (auto) 0.3 % (0.0-7.0); Hematocrit 35.7 % (36.0-46.0); Hemoglobin 11.9 g/dL (12.2-16.2); Lymphocytes # (auto) 0.8 10 ^3/uL (0.4-5.4); Lymphocytes % (auto) 3.6 % (10.0-50.0); Mean Corpuscular Hemoglobin 29.6 pg (28.0-32.0); Mean Corpuscular Hgb Conc. 33.3 g/dL (32.0-36.0); Monocytes # (auto) 0.8 10 ^3/uL (0-1.3); Monocytes % (auto) 3.9 % (0.0-12.0); Neutrophils # (auto) 19.3 10 ^3/uL (1.6-8.6); Red Blood Cells 4.01 10^6/uL (4.0-5.20); Red Cell Distribution Width 13.5 % (11.8-14.3); White Blood Cell 21.2 10^3/uL (4.4-10.8)
[2024-06-03] MEDS: SODIUM CHLORIDE 0.9% 3,000 ML IV ONE (13:58)
[2024-06-03 14:03] VITALS: O2SAT 96
[2024-06-03 15:00] LABS: INR 0.99 (0.9-1.15); Partial Thromboplastin Time 36.8 SEC (24.5-34.5); Prothrombin Time 10.5 sec (9.3-11.8)
[2024-06-03] MEDS ORDERED: DOCUSATE SOD 100 MG CAP PO PRN (15:15)
[2024-06-03] MEDS ORDERED: IBUPROFEN 600 MG TAB PO PRN (15:15)
[2024-06-03] MEDS ORDERED: VANCOMYCIN PER PHARMACY 0 MG IV SCH (15:15)
[2024-06-03] MEDS ORDERED: MORPHINE SULFATE INJ 2 MG/ml SYRG IV PRN ×2 (15:15→15:30)
[2024-06-03] MEDS ORDERED: SODIUM CHLORIDE 0.9% 1,000 ML IV SCH (15:15)
[2024-06-03] MEDS: IBUPROFEN 400 MG TAB PO ONE (15:18)
[2024-06-03] MEDS: ACETAMINOPHEN 325 MG TAB PO ONE (15:24)
[2024-06-03] MEDS ORDERED: NITROGLYCERIN 0.4 MG SL TAB SL PRN (15:30)
[2024-06-03 15:36] LABS: Alanine Aminotransferase 19 U/L (7-40); Albumin 3.6 g/dL (3.2-4.8); Alkaline Phosphatase 430 U/L (46-116); Anion Gap 12 (5-15); Aspartate Aminotransferase 12 U/L (13-40); BUN/Creatinine Ratio 19.9 (10.0-20.0); Bilirubin, Total 0.3 mg/dL (0.2-1.0); Blood Urea Nitrogen 33 mg/dL (9-23); Calcium 9.4 mg/dL (8.7-10.4); Carbon Dioxide 19 mmol/L (20-30); Chloride 86 mmol/L (98-107); Potassium 4.2 mmol/L (3.5-5.1); Total Protein 6.3 g/dL (5.7-8.2)
[2024-06-03 15:39] LABS: Lactic Acid w/Reflex 2.1 mmol/L (0.4-2.0)
[2024-06-03 15:42] LABS: Sodium 117 mmol/L (136-145)
[2024-06-03 15:43] LABS: Glucose 576 mg/dL (74-106)
[2024-06-03] MEDS: ACCU-CHEK COMFORT CURVE STRIP VI SCH (15:46)
[2024-06-03] MEDS: cefTRIAXone 1GM/50ML D5W 50 ML IV ONE (15:50)
[2024-06-03] MEDS: InsuLIN REG 1unit/0.01ml Soln (100units/ml) SC SCH (15:50)
[2024-06-03] MEDS: SODIUM CHLORIDE 0.9% 1,000 ML IV SCH (16:15)
[2024-06-03] MEDS: VANCOMYCIN 750mg/150ml 150 ML IV ONE (17:21)
[2024-06-03 18:15] LABS: Base Excess -1.7 mmol/L (-2.0-2.0)
[2024-06-03 18:38] LABS: Urine Bacteria FEW /hpf (None Seen); Urine Blood 1+ /uL (Negative); Urine Clarity Clear (Clear); Urine Color Light-Yellow (Yellow); Urine Protein, UAD 1+ (Negative); Urine Specific Gravity 1.014 (1.001-1.035); Urine Urobilinogen Normal (Negative); Urine WBC 1 /hpf (0 - 5); Urine pH 5.5 (5.0-9.0)
[2024-06-03 19:35] VITALS: PULSE 70; RESP 21; O2SAT 97
[2024-06-03] MEDS: ATORVASTATIN 20 MG TAB PO SCH (21:43)
[2024-06-03] MEDS: HEPARIN SODIUM (PORCINE) 5000 UNITS/ML 1ML VIAL SC SCH (22:01)
[2024-06-04] MEDS: DEXTROSE (50%) 50ML SYRG IV PRN (00:18)
[2024-06-04 04:08] VITALS: PULSE 81; RESP 17; O2SAT 97
[2024-06-04] MEDS: VANCOMYCIN 500 MG in D5W 5% 100 ML IV SCH (05:00)
[2024-06-04 05:25] LABS: Basophils # (auto) 0 10 ^3/uL (0-0.2); Basophils % (auto) 0.1 % (0.0-2.0); Eosinophils # (auto) 0 10 ^3/uL (0-0.8); Lymphocytes # (auto) 0.9 10 ^3/uL (0.4-5.4)
[2024-06-04 05:26] LABS: Eosinophils % (auto) 0.1 % (0.0-7.0); Hematocrit 40.9 % (36.0-46.0); Hemoglobin 14.1 g/dL (12.2-16.2); Lymphocytes % (auto) 3.7 % (10.0-50.0); Mean Corpuscular Hemoglobin 30.2 pg (28.0-32.0); Mean Corpuscular Hgb Conc. 34.4 g/dL (32.0-36.0); Mean Corpuscular Volume 87.6 fL (80.0-100.0); Monocytes % (auto) 3.8 % (0.0-12.0); Neutrophils # (auto) 22.9 10 ^3/uL (1.6-8.6); Neutrophils % (auto) 92.3 % (37.0-80.0); Red Blood Cells 4.67 10^6/uL (4.0-5.20); Red Cell Distribution Width 13.7 % (11.8-14.3); White Blood Cell 24.8 10^3/uL (4.4-10.8)
[2024-06-04 05:34] LABS: Alanine Aminotransferase 24 U/L (7-40); Albumin 4.1 g/dL (3.2-4.8); Alkaline Phosphatase 573 U/L (46-116); Anion Gap 14 (5-15); Aspartate Aminotransferase 20 U/L (13-40); BUN/Creatinine Ratio 24.2 (10.0-20.0); Bilirubin, Total 0.2 mg/dL (0.2-1.0); Blood Urea Nitrogen 22 mg/dL (9-23); Calcium 10.5 mg/dL (8.7-10.4); Carbon Dioxide 20 mmol/L (20-30); Glucose 107 mg/dL (74-106); Potassium 3.1 mmol/L (3.5-5.1); Total Protein 7.9 g/dL (5.7-8.2)
[2024-06-04 05:39] LABS: Chloride 97 mmol/L (98-107); Sodium 131 mmol/L (136-145)
[2024-06-04] MEDS: POTASSIUM CHL 20 Meq TABLET PO ONE ×2 (06:36→18:18)
[2024-06-04 13:00] VITALS: BP 104/62; PULSE 92; RESP 19; TEMP 99.1; O2SAT 96
[2024-06-04] MEDS: FAMOTIDINE (10MG/ML) 2ML VL IV SCH (13:05)
[2024-06-04] MEDS: cefTRIAXone 1GM/50ML D5W 50 ML IV SCH (13:05)
[2024-06-04] MEDS: VANCOMYCIN 750mg/150ml 150 ML IV SCH (13:06)
[2024-06-04] MEDS: LORazepam 2MG/ML-1ML VIAL IV ONE (15:45)
[2024-06-04] MEDS: NICOTINE 21MG/24 HR TOPICAL PATCH TD ONE (15:45)
[2024-06-04 17:00] VITALS: BP 101/65; PULSE 92; RESP 20; TEMP 99.3; O2SAT 99
[2024-06-04] MEDS: MEROPENEM 1GM IVPB 50 ML IV ONE (19:01)
[2024-06-04 20:00] VITALS: PULSE 91; RESP 18
[2024-06-04] MEDS: INSULIN LANTUS (GLARGINE) 1 /0.01ml (100units/ml) SC SCH (20:59)
[2024-06-04 21:00] VITALS: BP 111/61; PULSE 91; RESP 20; TEMP 99; O2SAT 99
[2024-06-04] MEDS: busPIRone HCL 10 MG TAB PO SCH (21:02)
[2024-06-04] MEDS: VANCOMYCIN 750 MG in SODIUM CHL 0.9% 250 ML IV ONE (23:35)
[2024-06-05] VITALS (7 sets, daily range): BP systolic 108–147; BP diastolic 51–95; PULSE 47–104; RESP 16–20; TEMP 97.7–98.5; O2SAT 96–100
[2024-06-05] MEDS: MEROPENEM 1GM IVPB 50 ML IV SCH (08:15)
[2024-06-05] MEDS: DULoxetine HCL 30 MG CAP PO SCH (08:15)
[2024-06-05] MEDS: NICOTINE 21MG/24 HR TOPICAL PATCH TD SCH (08:17)
[2024-06-05] MEDS ORDERED: INSU1INJ19 SC (10:21)
[2024-06-05] MEDS ORDERED: EMPA1TAB PO (10:21)
[2024-06-05] MEDS ORDERED: ONDA-155 PO (10:21)
[2024-06-05] MEDS ORDERED: PIO30T PO (10:21)
[2024-06-05] MEDS ORDERED: INSU100I54 SC (10:21)
[2024-06-05] MEDS: OLANZapine 5 MG TAB PO ONE (11:00)
[2024-06-05 12:14] LABS: Eosinophils # (auto) 0 10 ^3/uL (0-0.8); Eosinophils % (auto) 0.1 % (0.0-7.0); Red Cell Distribution Width 13.8 % (11.8-14.3)
[2024-06-05 12:16] LABS: Basophils # (auto) 0.2 10 ^3/uL (0-0.2); Basophils % (auto) 0.6 % (0.0-2.0); Hematocrit 38.1 % (36.0-46.0); Hemoglobin 12.8 g/dL (12.2-16.2); Lymphocytes # (auto) 1.2 10 ^3/uL (0.4-5.4); Lymphocytes % (auto) 4.7 % (10.0-50.0); Mean Corpuscular Hemoglobin 29.6 pg (28.0-32.0); Mean Corpuscular Hgb Conc. 33.5 g/dL (32.0-36.0); Mean Corpuscular Volume 88.1 fL (80.0-100.0); Monocytes # (auto) 0.9 10 ^3/uL (0-1.3); Monocytes % (auto) 3.7 % (0.0-12.0); Neutrophils # (auto) 22.5 10 ^3/uL (1.6-8.6); Neutrophils % (auto) 90.9 % (37.0-80.0); Nucleated Red Blood Cells % 0.1 %; Red Blood Cells 4.32 10^6/uL (4.0-5.20); White Blood Cell 24.8 10^3/uL (4.4-10.8)
[2024-06-05 12:36] LABS: Chloride 99 mmol/L (98-107); Potassium 3.9 mmol/L (3.5-5.1); Sodium 128 mmol/L (136-145)
[2024-06-05 12:37] LABS: Anion Gap 5 (5-15); Calcium 9.4 mg/dL (8.5-10.1); Carbon Dioxide 24 mmol/L (20-30)
[2024-06-05 12:42] LABS: BUN/Creatinine Ratio 28.1 (10.0-20.0); Blood Urea Nitrogen 25 mg/dL (9-23); Glucose 304 mg/dL (74-106)
[2024-06-05] MEDS: HYDROcodone-ACET 5/325MG TAB PO PRN (21:40)
[2024-06-05] MEDS: DAKINS QUARTER STR 0.125% (NaHypochlorite) 473 ML TOPICAL SOL TOP SCH (22:00)
[2024-06-06 01:00] VITALS: BP 101/67; PULSE 79; RESP 18; TEMP 97.8; O2SAT 99
[2024-06-06] MEDS: InsuLIN REG 1unit/0.01ml Soln (100units/ml) ONE (06:20)
[2024-06-06 07:38] VITALS: PULSE 95; RESP 16
[2024-06-06 09:00] VITALS: BP 113/76; PULSE 86; RESP 18; TEMP 97.9; O2SAT 99
[2024-06-06] MEDS: OLANZapine 5 MG TAB PO SCH (09:10)
[2024-06-06] MEDS: AMPICILLIN & SULBACTAM SODIUM 3 GM in SODIUM CHL 0.9% 100 ML IV SCH (11:15)
[2024-06-06] MEDS ORDERED: DEXTROSE (50%) 50ML SYRG IV PRN (11:15)
[2024-06-06 11:19] LABS: Chloride 100 mmol/L (98-107); Sodium 130 mmol/L (136-145)
[2024-06-06 11:20] LABS: Anion Gap 6 (5-15); Calcium 9.3 mg/dL (8.5-10.1); Carbon Dioxide 24 mmol/L (20-30)
[2024-06-06 11:25] LABS: BUN/Creatinine Ratio 28.3 (10.0-20.0); Blood Urea Nitrogen 17 mg/dL (9-23); Glucose 125 mg/dL (74-106)
[2024-06-06] MEDS: InsuLIN REG 1unit/0.01ml Soln (100units/ml) SC SCH (11:50)
[2024-06-06] MEDS: ACCU-CHEK COMFORT CURVE STRIP VI SCH (11:51)
[2024-06-06] MEDS: POTASSIUM CHLORIDE 40 MEQ, LIDOCAINE 1% (LOCAL ANESTH.) 4 ML in SODIUM CHL 0.9% 250 ML IV ONE (12:00)
[2024-06-06 13:00] VITALS: BP 93/55; PULSE 87; RESP 17; TEMP 98; O2SAT 100
[2024-06-06] MEDS ORDERED: VANCOMYCIN 750mg/150ml 150 ML IV SCH (14:00)
[2024-06-06 20:00] VITALS: PULSE 84; RESP 18
[2024-06-06 21:00] VITALS: BP 84/56; PULSE 84; RESP 17; TEMP 98.4; O2SAT 96
[2024-06-06] MEDS: POTASSIUM CHL 20 Meq TABLET PO SCH (22:00)
[2024-06-07] VITALS (7 sets, daily range): BP systolic 89–99; BP diastolic 50–61; PULSE 65–90; RESP 14–19; TEMP 97.5–98.4; O2SAT 95–98
[2024-06-07] MEDS ORDERED: GLYCOPYRROLATE 0.2 MG/ML 1ML VIAL ONE (07:39)
[2024-06-07] MEDS ORDERED: DexAMETHasone SOD PHOS 10MG/1ML VIAL INJ ONE (07:39)
[2024-06-07] MEDS ORDERED: PROPOFOL 10 MG/ML 20 ML IV ONE ×2 (07:39→09:37)
[2024-06-07] MEDS ORDERED: KETOROLAC TROMETH 30 MG/ML 1ML VIAL ONE (07:39)
[2024-06-07] MEDS ORDERED: LIDOCAINE 1% INJ PF 5ML AMP ONE (07:39)
[2024-06-07] MEDS ORDERED: ONDANSETRON HCL 4 MG/2 ML VIAL ONE (07:39)
[2024-06-07] MEDS ORDERED: fentaNYL CITRATE 100 MCG/2 ML VL ONE (07:41)
[2024-06-07] MEDS ORDERED: KETAMINE 50mg/ML 1ml syringe ONE (07:41)
[2024-06-07] MEDS: AMPICILLIN & SULBACTAM SODIUM 3 GM in SODIUM CHL 0.9% 100 ML IV SCH (08:00)
[2024-06-07] MEDS: ceFAZolin 2 GM/D5W50ml 50 ML IV ONE (08:23)
[2024-06-07] MEDS: BUPIVACAINE 0.5% P/F INJ 10 ML VIAL ONE (09:09)
[2024-06-07] MEDS: LIDOCAINE 1% HCL (LOCAL ANESTH.) INJ 20ML MDV ONE (09:09)
[2024-06-07] MEDS: InsuLIN REG 1unit/0.01ml Soln (100units/ml) SC ONE (15:30)
[2024-06-07] MEDS ORDERED: DEXTROSE (50%) 50ML SYRG IV ONE (15:30)
[2024-06-07] MEDS: ACCU-CHEK COMFORT CURVE STRIP VI ONE (15:30)
[2024-06-07 16:33] LABS: Anion Gap 10 (5-15); Carbon Dioxide 19 mmol/L (20-30); Chloride 104 mmol/L (98-107); Potassium 4.9 mmol/L (3.5-5.1); Sodium 133 mmol/L (136-145)
[2024-06-07 16:35] LABS: Calcium 8.8 mg/dL (8.7-10.4)
[2024-06-07 16:39] LABS: Glucose 222 mg/dL (74-106)
[2024-06-07 16:40] LABS: BUN/Creatinine Ratio 35.6 (10.0-20.0)
[2024-06-07 16:42] LABS: Blood Urea Nitrogen 31 mg/dL (9-23)
[2024-06-07 18:33] LABS: Hemoglobin 13.1 g/dL (12.2-16.2)
[2024-06-07 18:34] LABS: Hematocrit 38.3 % (36.0-46.0); Mean Corpuscular Hemoglobin 30.3 pg (28.0-32.0); Mean Corpuscular Hgb Conc. 34.2 g/dL (32.0-36.0); Mean Corpuscular Volume 88.5 fL (80.0-100.0); Red Blood Cells 4.32 10^6/uL (4.0-5.20); Red Cell Distribution Width 14.1 % (11.8-14.3); White Blood Cell 29.1 10^3/uL (4.4-10.8)
[2024-06-07 18:39] LABS: INR 0.97 (0.9-1.15); Prothrombin Time 10.3 sec (9.3-11.8)
[2024-06-07 18:40] LABS: Band Neutrophils % (manual) 0; Basophils % (manual) 0 (0.0-2.0); Blast Cells 0; Eosinophils % (manual) 0 (0-7); Metamyelocytes % 0; Myelocytes % 0; Promyelocytes % 0; Reactive Lymphocytes 0
[2024-06-07 19:06] LABS: Lymphocytes % (manual) 4 (10.0-50.0); Monocytes % (manual) 2 (0-12); Platelet Estimate Increased
[2024-06-08 01:00] VITALS: BP 98/62; PULSE 82; RESP 18; TEMP 97.6; O2SAT 95
[2024-06-08 05:00] VITALS: BP 121/72; PULSE 76; RESP 17; TEMP 97.4; O2SAT 97
[2024-06-08 05:20] LABS: Anion Gap 7 (5-15); Carbon Dioxide 22 mmol/L (20-30); Chloride 103 mmol/L (98-107); Potassium 4.3 mmol/L (3.5-5.1); Sodium 132 mmol/L (136-145)
[2024-06-08 05:21] LABS: Calcium 8.9 mg/dL (8.7-10.4)
[2024-06-08 05:26] LABS: BUN/Creatinine Ratio 27.7 (10.0-20.0); Blood Urea Nitrogen 36 mg/dL (9-23); Glucose 349 mg/dL (74-106)
[2024-06-08 08:00] VITALS: PULSE 86; RESP 18; O2SAT 98
[2024-06-08 09:54] LABS: Hematocrit 35.1 % (36.0-46.0); Hemoglobin 11.7 g/dL (12.2-16.2); Mean Corpuscular Hemoglobin 29.4 pg (28.0-32.0); Mean Corpuscular Hgb Conc. 33.5 g/dL (32.0-36.0); Mean Corpuscular Volume 87.8 fL (80.0-100.0); Red Blood Cells 3.99 10^6/uL (4.0-5.20); Red Cell Distribution Width 14.1 % (11.8-14.3)
[2024-06-08 09:59] LABS: White Blood Cell 32.4 10^3/uL (4.4-10.8)
[2024-06-08 10:00] LABS: Basophils % (manual) 0 (0.0-2.0); Blast Cells 0; Eosinophils % (manual) 0 (0-7); Metamyelocytes % 0; Myelocytes % 0; Promyelocytes % 0; Reactive Lymphocytes 0
[2024-06-08 10:30] LABS: Erythrocyte Sedimentation Rate 96 mm/hr (0-20)
[2024-06-08 11:09] LABS: Band Neutrophils % (manual) 4; Lymphocytes % (manual) 8 (10.0-50.0); Monocytes % (manual) 3 (0-12)
[2024-06-08 11:12] LABS: Platelet Estimate Increased
[2024-06-08] MEDS: ONDANSETRON HCL 4 MG/2 ML VIAL IV PRN (12:03)
[2024-06-08] MEDS: levoFLOXacin 500MG 100 ML IV ONE (18:26)
[2024-06-08] MEDS: LINEZOLID 600MG/300ML 300 ML IV SCH (18:26)
[2024-06-08] MEDS: INSULIN LANTUS (GLARGINE) 1 /0.01ml (100units/ml) SC SCH (22:00)
[2024-06-09 01:00] VITALS: BP 162/95; PULSE 100; RESP 18; TEMP 97.7; O2SAT 96
[2024-06-09 05:00] VITALS: BP 94/65; PULSE 79; RESP 18; TEMP 97.4; O2SAT 97
[2024-06-09 06:16] LABS: Red Cell Distribution Width 14.3 % (11.8-14.3)
[2024-06-09 06:19] LABS: Hematocrit 31.2 % (36.0-46.0); Hemoglobin 10.6 g/dL (12.2-16.2); Mean Corpuscular Hemoglobin 30.1 pg (28.0-32.0); Mean Corpuscular Hgb Conc. 33.9 g/dL (32.0-36.0); Mean Corpuscular Volume 88.8 fL (80.0-100.0); Red Blood Cells 3.51 10^6/uL (4.0-5.20); White Blood Cell 20.1 10^3/uL (4.4-10.8)
[2024-06-09 06:26] LABS: Basophils % (manual) 0 (0.0-2.0); Blast Cells 0; Metamyelocytes % 0; Myelocytes % 0; Promyelocytes % 0; Reactive Lymphocytes 0
[2024-06-09 06:46] LABS: Alanine Aminotransferase 35 U/L (7-40); Alkaline Phosphatase 707 U/L (46-116); Anion Gap 4 (5-15); Aspartate Aminotransferase 46 U/L (13-40); Calcium 8.5 mg/dL (8.7-10.4); Carbon Dioxide 25 mmol/L (20-30); Chloride 104 mmol/L (98-107); Glucose 88 mg/dL (74-106); Potassium 3.8 mmol/L (3.5-5.1); Sodium 133 mmol/L (136-145)
[2024-06-09 06:47] LABS: Albumin 2.9 g/dL (3.2-4.8); Bilirubin, Total < 0.2 mg/dL (0.2-1.0); Erythrocyte Sedimentation Rate 104 mm/hr (0-20); Total Protein 5.5 g/dL (5.7-8.2)
[2024-06-09 07:03] LABS: BUN/Creatinine Ratio 37.1 (10.0-20.0)
[2024-06-09 07:05] LABS: Blood Urea Nitrogen 26 mg/dL (9-23)
[2024-06-09 07:28] LABS: Band Neutrophils % (manual) 4; Eosinophils % (manual) 1 (0-7); Lymphocytes % (manual) 12 (10.0-50.0); Monocytes % (manual) 4 (0-12)
[2024-06-09 07:29] LABS: Platelet Estimate Increased; RBC Morphology Normal
[2024-06-09 08:00] VITALS: PULSE 83; RESP 14; O2SAT 96
[2024-06-09 09:00] VITALS: BP 113/71; PULSE 86; RESP 14; TEMP 97.6; O2SAT 96
[2024-06-09] MEDS: levoFLOXacin 250MG 50 ML IV SCH (10:20)
[2024-06-09 13:00] VITALS: BP 128/68; PULSE 91; RESP 12; TEMP 98.3; O2SAT 98
== END 2024-06-09 18:15 | disposition left against medical advice (07) | DRG 720 ==
LOC: ER 12:21 → TELE 15:24 → TELE-WESTW 06-04 12:59 → WEST WING 06-06 18:45
PROVIDERS: ADMIT Internal Medicine; ATTEND Internal Medicine
PROC: 0JBQ0ZZ Excision of Right Foot Subcutaneous Tissue and Fascia, Open Approach (ICD-10-PCS; principal; 2024-06-07 09:22)
DX: A41.9 Sepsis, unspecified organism (principal); E11.52 Type 2 diabetes mellitus with diabetic peripheral angiopathy with gangrene; N17.9 Acute kidney failure, unspecified; E11.21 Type 2 diabetes mellitus with diabetic nephropathy; M86.171 Other acute osteomyelitis, right ankle and foot; L03.115 Cellulitis of right lower limb; L02.611 Cutaneous abscess of right foot; Z53.29 Procedure and treatment not carried out because of patient's decision for other reasons; E11.65 Type 2 diabetes mellitus with hyperglycemia; F32.A Depression, unspecified; E78.5 Hyperlipidemia, unspecified; E87.6 Hypokalemia; F41.9 Anxiety disorder, unspecified; E11.621 Type 2 diabetes mellitus with foot ulcer; F17.210 Nicotine dependence, cigarettes, uncomplicated; L97.519 Non-pressure chronic ulcer of other part of right foot with unspecified severity; E11.42 Type 2 diabetes mellitus with diabetic polyneuropathy; K21.9 Gastro-esophageal reflux disease without esophagitis; E11.69 Type 2 diabetes mellitus with other specified complication; M86.8X7 Other osteomyelitis, ankle and foot; Z83.3 Family history of diabetes mellitus; Z82.49 Family history of ischemic heart disease and other diseases of the circulatory system; Z79.4 Long term (current) use of insulin
CPT/HCPCS: 36415; 36600; 73630; 73718; 80048; 80053; 80202; 81001; 82805; 82962; 83036; 83605; 83930; 84295; 84484; 85007; 85025; 85027; 85610; 85652; 85730; 86850; 86900; 86901; 87040; 87075; 87077; 87081; 87186; 87205; 93926; 96361; 96365; G0378; J1100; J1815; J1885; J1956; J2001; J2185; J2405; J2704; J3490; J7060

== ENCOUNTER 2024-06-10 12:29 | Inpatient (IN) | payer MEDICAID ==
[~2024-06-10] VITALS: Ht 157.5 cm; Wt 71.4 kg
[~2024-06-10 12:29] MED LIST changes: -BACDST PO; -CEPH500C PO; -CLIN1CAP70 PO; -DULO-141 PO; +EMPA1TAB PO; -INSDRIP IV; -INSLANTI SC; +INSU100I54 SC; +INSU1INJ19 SC; -INSUINJ37 SUBCUT; +ONDA-155 PO; +PIO30T PO
[2024-06-10] MEDS: SODIUM CHLORIDE 0.9% 1,000 ML IV ONE ×2 (13:04→13:55)
[2024-06-10] MEDS: CLINDAMYCIN 600MG IV 50 ML IV ONE (13:04)
[2024-06-10 13:13] LABS: Hemoglobin 11.9 g/dL (12.2-16.2); Red Cell Distribution Width 14.5 % (11.8-14.3)
[2024-06-10 13:15] LABS: Hematocrit 35.5 % (36.0-46.0); Mean Corpuscular Hemoglobin 29.9 pg (28.0-32.0); Mean Corpuscular Hgb Conc. 33.7 g/dL (32.0-36.0); Mean Corpuscular Volume 88.8 fL (80.0-100.0); White Blood Cell 20.1 10^3/uL (4.4-10.8)
[2024-06-10 13:28] LABS: Anion Gap 5 (5-15); Carbon Dioxide 24 mmol/L (20-30); Chloride 103 mmol/L (98-107); Potassium 4.7 mmol/L (3.5-5.1); Sodium 132 mmol/L (136-145)
[2024-06-10 13:29] LABS: Basophils % (manual) 0 (0.0-2.0); Blast Cells 0; Calcium 8.4 mg/dL (8.7-10.4); Promyelocytes % 0; Reactive Lymphocytes 0
[2024-06-10 13:34] LABS: BUN/Creatinine Ratio 39.8 (10.0-20.0); Blood Urea Nitrogen 35 mg/dL (9-23); Glucose 169 mg/dL (74-106)
[2024-06-10 13:35] LABS: Band Neutrophils % (manual) 6; Eosinophils % (manual) 1 (0-7); Lymphocytes % (manual) 13 (10.0-50.0); Metamyelocytes % 1; Monocytes % (manual) 5 (0-12); Myelocytes % 1
[2024-06-10 13:36] LABS: Anisocytosis Slight; Platelet Estimate Increased
[2024-06-10] MEDS: PIPERACILLIN-TAZOB 3.375GM 100 ML IV ONE (13:55)
[2024-06-10] MEDS ORDERED: NITROGLYCERIN 0.4 MG SL TAB SL PRN (14:00)
[2024-06-10] MEDS ORDERED: VANCOMYCIN PER PHARMACY 0 MG IV SCH (14:00)
[2024-06-10] MEDS ORDERED: MORPHINE SULFATE INJ 2 MG/ml SYRG IV PRN (14:00)
[2024-06-10] MEDS: SODIUM CHLORIDE 0.9% 1,000 ML IV SCH (14:00)
[2024-06-10 14:31] LABS: Erythrocyte Sedimentation Rate 93 mm/hr (0-20)
[2024-06-10] MEDS: cefTRIAXone 1GM/50ML D5W 50 ML IV ONE (16:00)
[2024-06-10 23:30] VITALS: PULSE 82; RESP 18; O2SAT 98
[2024-06-10] MEDS: GADOTERATE MEG 10 MMOL/20ml INJ (0.5MMOL/ml) IV ONE (23:41)
[2024-06-10] MEDS: traMADol HCL 50 MG TAB PO SCH (23:42)
[2024-06-10] MEDS: VANCOMYCIN 750mg/150ml 150 ML IV SCH (23:55)
[2024-06-11] MEDS: busPIRone HCL 10 MG TAB PO SCH (00:03)
[2024-06-11] MEDS: VANCOMYCIN 1GM/200ML 200 ML IV ONE (00:04)
[2024-06-11] MEDS: ASCORBIC ACID 500 MG TAB PO SCH (00:04)
[2024-06-11 05:00] VITALS: BP 124/75; PULSE 67; RESP 16; TEMP 97.1; O2SAT 100
[2024-06-11 06:21] LABS: Alanine Aminotransferase 19 U/L (7-40); Albumin 3.2 g/dL (3.2-4.8); Alkaline Phosphatase 514 U/L (46-116); Anion Gap 5 (5-15); BUN/Creatinine Ratio 26.4 (10.0-20.0); Blood Urea Nitrogen 32 mg/dL (9-23); Calcium 8.6 mg/dL (8.7-10.4); Carbon Dioxide 23 mmol/L (20-30); Chloride 105 mmol/L (98-107); Glucose 331 mg/dL (74-106); Potassium 4.8 mmol/L (3.5-5.1); Sodium 133 mmol/L (136-145)
[2024-06-11 06:22] LABS: Aspartate Aminotransferase 12 U/L (13-40); Bilirubin, Total < 0.2 mg/dL (0.2-1.0); Total Protein 6.2 g/dL (5.7-8.2)
[2024-06-11 06:36] LABS: Hematocrit 34.4 % (36.0-46.0); Hemoglobin 11.5 g/dL (12.2-16.2); Mean Corpuscular Hemoglobin 29.9 pg (28.0-32.0); Mean Corpuscular Hgb Conc. 33.5 g/dL (32.0-36.0); Mean Corpuscular Volume 89.1 fL (80.0-100.0); Red Blood Cells 3.87 10^6/uL (4.0-5.20); Red Cell Distribution Width 14.5 % (11.8-14.3); White Blood Cell 19.6 10^3/uL (4.4-10.8)
[2024-06-11 06:40] LABS: Band Neutrophils % (manual) 0; Basophils % (manual) 0 (0.0-2.0); Blast Cells 0; Eosinophils % (manual) 0 (0-7); Myelocytes % 0; Promyelocytes % 0; Reactive Lymphocytes 0
[2024-06-11 07:40] VITALS: PULSE 71; RESP 14; O2SAT 97
[2024-06-11 08:26] LABS: Lymphocytes % (manual) 11 (10.0-50.0); Metamyelocytes % 1; Monocytes % (manual) 10 (0-12); Platelet Estimate Increased
[2024-06-11] MEDS: cefTRIAXone 1GM/50ML D5W 50 ML IV SCH (09:44)
[2024-06-11] MEDS: MULTIPLE VITAMIN TAB PO SCH (10:38)
[2024-06-11] MEDS: DULoxetine HCL 30 MG CAP PO SCH (10:38)
[2024-06-11] MEDS: PANTOPRAZOLE 40 MG TAB PO SCH (10:38)
[2024-06-11] MEDS: OLANZapine 5 MG TAB PO SCH (10:39)
[2024-06-11] MEDS: ATORVASTATIN 20 MG TAB PO SCH (10:39)
[2024-06-11] MEDS: ZINC SULFATE 220mg CAP or TAB PO SCH (10:39)
[2024-06-11 10:53] LABS: Urine Bacteria None Seen /hpf (None Seen)
[2024-06-11 11:26] LABS: Urine Blood Negative /uL (Negative); Urine Clarity Clear (Clear); Urine Color Light-Yellow (Yellow); Urine Protein, UAD 1+ (Negative); Urine Specific Gravity 1.017 (1.001-1.035); Urine Urobilinogen Normal (Negative); Urine WBC 3 /hpf (0 - 5)
[2024-06-11 11:44] LABS: Amphetamine Screen, Urine Neg (NEGATIVE); Barbiturate Scree,Urine Neg (NEGATIVE); Benzodiazephine Screen, Urine Neg (NEGATIVE); Cannabinoid Screen, Urine Pos (NEGATIVE); Cocaine Screen, Urine Neg (NEGATIVE); Opiate Scree,Urine Neg (NEGATIVE); Phencyclidine Screen, Urine Neg (NEGATIVE)
[2024-06-11] MEDS ORDERED: DEXTROSE (50%) 50ML SYRG IV PRN (13:45)
[2024-06-11] MEDS: INSULIN LANTUS (GLARGINE) 1 /0.01ml (100units/ml) SC SCH (14:42)
[2024-06-11 15:48] LABS: INR 1.02 (0.9-1.15); Partial Thromboplastin Time 35.5 SEC (24.5-34.5); Prothrombin Time 10.8 sec (9.3-11.8)
[2024-06-11] MEDS: InsuLIN REG 1unit/0.01ml Soln (100units/ml) SC SCH (16:48)
[2024-06-11] MEDS: ACCU-CHEK COMFORT CURVE STRIP VI SCH (16:48)
[2024-06-11] MEDS: AMPICILLIN & SULBACTAM SODIUM 3 GM in SODIUM CHL 0.9% 100 ML IV SCH (18:10)
[2024-06-11 20:00] VITALS: BP 119/77; PULSE 16; PULSE 88; RESP 16; TEMP 98.4; O2SAT 99
[2024-06-12] VITALS: BP 122/64; PULSE 73; RESP 18; TEMP 98; O2SAT 98
[2024-06-12 04:27] VITALS: BP 118/77; PULSE 79; RESP 16; TEMP 97.9; O2SAT 98
[2024-06-12 07:30] VITALS: PULSE 84; RESP 18; O2SAT 99
[2024-06-12] MEDS ORDERED: MIDAZOLAM HCL 2MG/2ML 2ml VIAL (1mg/ml) ONE (11:08)
[2024-06-12] MEDS ORDERED: fentaNYL CITRATE 100 MCG/2 ML VL ONE (11:08)
[2024-06-12] MEDS ORDERED: MEPERIDINE HCL (50 MG/ML) 1 ML VIAL ONE (11:08)
[2024-06-12] MEDS ORDERED: DexAMETHasone SOD PHOS 10MG/1ML VIAL INJ ONE (12:47)
[2024-06-12] MEDS: ATORVASTATIN 20 MG TAB PO SCH (14:10)
[2024-06-12 14:49] LABS: Basophils # (auto) 0.1 10 ^3/uL (0-0.2); Basophils % (auto) 0.3 % (0.0-2.0); Eosinophils # (auto) 0.1 10 ^3/uL (0-0.8); Eosinophils % (auto) 0.6 % (0.0-7.0)
[2024-06-12 14:50] LABS: Hematocrit 37.7 % (36.0-46.0); Hemoglobin 12.5 g/dL (12.2-16.2); Lymphocytes # (auto) 2.8 10 ^3/uL (0.4-5.4); Mean Corpuscular Hemoglobin 29.2 pg (28.0-32.0); Mean Corpuscular Hgb Conc. 33.2 g/dL (32.0-36.0); Monocytes # (auto) 0.8 10 ^3/uL (0-1.3); Monocytes % (auto) 4.3 % (0.0-12.0); Neutrophils # (auto) 14.9 10 ^3/uL (1.6-8.6); Neutrophils % (auto) 79.8 % (37.0-80.0); Red Blood Cells 4.28 10^6/uL (4.0-5.20); Red Cell Distribution Width 14.2 % (11.8-14.3); White Blood Cell 18.6 10^3/uL (4.4-10.8)
[2024-06-12 15:01] LABS: Chloride 108 mmol/L (98-107); Potassium 3.7 mmol/L (3.5-5.1); Sodium 137 mmol/L (136-145)
[2024-06-12 15:02] LABS: Anion Gap 8 (5-15); Carbon Dioxide 21 mmol/L (20-30)
[2024-06-12 15:03] LABS: Calcium 8.9 mg/dL (8.7-10.4)
[2024-06-12 15:07] LABS: BUN/Creatinine Ratio 23.6 (10.0-20.0); Blood Urea Nitrogen 13 mg/dL (9-23); Glucose 133 mg/dL (74-106)
[2024-06-12 15:56] VITALS: BP 132/82; PULSE 94; RESP 1; RESP 18; TEMP 98.7; O2SAT 97
[2024-06-12 16:07] VITALS: BP 132/82; PULSE 94; RESP 18; TEMP 98.7; O2SAT 97
[2024-06-12 21:00] VITALS: BP 87/52; PULSE 68; RESP 20; TEMP 98.1; O2SAT 96
[2024-06-13 01:00] VITALS: BP 101/66; PULSE 85; RESP 22; TEMP 97.9; O2SAT 99
[2024-06-13 05:00] VITALS: BP 103/59; PULSE 86; RESP 20; TEMP 97.9; O2SAT 96
[2024-06-13 08:00] VITALS: BP 120/70; PULSE 80; RESP 17; TEMP 98.1; O2SAT 98
[2024-06-13] MEDS ORDERED: MIDAZOLAM HCL 2MG/2ML 2ml VIAL (1mg/ml) ONE (10:04)
[2024-06-13] MEDS ORDERED: fentaNYL CITRATE 100 MCG/2 ML VL ONE (10:04)
[2024-06-13] MEDS: BUPIVACAINE 0.5% MPF INJ 30ML SDV IJ ONE (10:15)
[2024-06-13] MEDS ORDERED: PROPOFOL 10 MG/ML 20 ML IV ONE (10:35)
[2024-06-13] MEDS ORDERED: LIDOCAINE 2% (LOCAL ANESTH.) PF 5ml SDV ONE (10:35)
[2024-06-13] MEDS ORDERED: ONDANSETRON HCL 4 MG/2 ML VIAL ONE (10:35)
[2024-06-13 10:48] VITALS: PULSE 76; RESP 11; O2SAT 100
[2024-06-13] MEDS: ONDANSETRON HCL 4 MG/2 ML VIAL IV ONE (11:15)
[2024-06-13] MEDS ORDERED: HYDROmorphone HCL 2 MG/ML VL/or syr IV PRN (11:15)
[2024-06-13 12:00] VITALS: BP 137/82; PULSE 81; RESP 16; TEMP 97.5; O2SAT 97
[2024-06-13] MEDS ORDERED: DEXTROSE (50%) 50ML SYRG IV PRN (12:15)
[2024-06-13 14:22] LABS: Basophils # (auto) 0.1 10 ^3/uL (0-0.2); Basophils % (auto) 0.3 % (0.0-2.0); Eosinophils # (auto) 0.1 10 ^3/uL (0-0.8); Eosinophils % (auto) 0.7 % (0.0-7.0); Hematocrit 33.1 % (36.0-46.0); Lymphocytes # (auto) 2.4 10 ^3/uL (0.4-5.4); Lymphocytes % (auto) 13.6 % (10.0-50.0); Mean Corpuscular Hemoglobin 29.4 pg (28.0-32.0); Mean Corpuscular Hgb Conc. 33.2 g/dL (32.0-36.0); Mean Corpuscular Volume 88.6 fL (80.0-100.0); Monocytes # (auto) 0.9 10 ^3/uL (0-1.3); Monocytes % (auto) 4.9 % (0.0-12.0); Neutrophils # (auto) 14.4 10 ^3/uL (1.6-8.6); Neutrophils % (auto) 80.5 % (37.0-80.0); Red Blood Cells 3.74 10^6/uL (4.0-5.20); Red Cell Distribution Width 14.7 % (11.8-14.3); White Blood Cell 17.9 10^3/uL (4.4-10.8)
[2024-06-13] MEDS: ACETAMINOPHEN 325 MG TAB PO PRN (15:54)
[2024-06-13] MEDS: ACCU-CHEK COMFORT CURVE STRIP VI SCH (17:16)
[2024-06-13] MEDS: InsuLIN REG 1unit/0.01ml Soln (100units/ml) SC SCH ×2 (17:17→21:53)
[2024-06-13 21:00] VITALS: BP 133/87; PULSE 85; RESP 20; TEMP 97.4; O2SAT 99
[2024-06-14 05:00] VITALS: BP 139/86; PULSE 80; RESP 20; TEMP 97.4; O2SAT 99
[2024-06-14] MEDS: INSULIN LANTUS (GLARGINE) 1 /0.01ml (100units/ml) SC ONE (10:38)
[2024-06-14 12:40] VITALS: BP 141/89; PULSE 79; RESP 15; TEMP 97.9; O2SAT 98
[2024-06-14 16:27] VITALS: BP 145/88; PULSE 98; RESP 15; TEMP 98.2; O2SAT 94
[2024-06-14] MEDS: Juven Orange Powder PACKET 27.5gm PO SCH (18:00)
[2024-06-14 21:00] VITALS: BP 114/69; PULSE 87; RESP 21; TEMP 98.4; O2SAT 97
[2024-06-15 01:00] VITALS: BP 109/71; PULSE 77; RESP 20; TEMP 97.5; O2SAT 99
[2024-06-15] MEDS: INSULIN LANTUS (GLARGINE) 1 /0.01ml (100units/ml) SC SCH (06:20)
[2024-06-15 08:32] VITALS: BP 142/86; PULSE 83; RESP 17; TEMP 98.4; O2SAT 98
[2024-06-15 12:31] VITALS: BP 132/89; PULSE 86; RESP 18; TEMP 98.4; O2SAT 98
[2024-06-15 16:45] VITALS: BP 117/72; PULSE 99; RESP 18; TEMP 97.4; O2SAT 99
[2024-06-15 21:00] VITALS: BP 108/63; PULSE 89; RESP 17; TEMP 98.2; O2SAT 96
[2024-06-16 05:00] VITALS: BP 118/66; PULSE 87; RESP 16; TEMP 98; O2SAT 95
[2024-06-16 08:32] VITALS: BP 138/76; PULSE 86; RESP 17; TEMP 98.1; O2SAT 98
[2024-06-16 09:17] LABS: Basophils # (auto) 0.1 10 ^3/uL (0-0.2); Eosinophils # (auto) 0.1 10 ^3/uL (0-0.8); Hemoglobin 11.8 g/dL (12.2-16.2); Nucleated Red Blood Cells % 0.1 %
[2024-06-16 09:18] LABS: Basophils % (auto) 0.8 % (0.0-2.0); Eosinophils % (auto) 0.6 % (0.0-7.0); Hematocrit 35.6 % (36.0-46.0); Lymphocytes # (auto) 1.9 10 ^3/uL (0.4-5.4); Lymphocytes % (auto) 12.1 % (10.0-50.0); Mean Corpuscular Hemoglobin 29.3 pg (28.0-32.0); Mean Corpuscular Hgb Conc. 33.1 g/dL (32.0-36.0); Mean Corpuscular Volume 88.5 fL (80.0-100.0); Monocytes # (auto) 0.6 10 ^3/uL (0-1.3); Neutrophils # (auto) 12.7 10 ^3/uL (1.6-8.6); Neutrophils % (auto) 82.5 % (37.0-80.0); Red Blood Cells 4.03 10^6/uL (4.0-5.20); Red Cell Distribution Width 15.2 % (11.8-14.3); White Blood Cell 15.4 10^3/uL (4.4-10.8)
[2024-06-16 09:30] LABS: Chloride 110 mmol/L (98-107); Potassium 4.4 mmol/L (3.5-5.1); Sodium 140 mmol/L (136-145)
[2024-06-16 09:31] LABS: Anion Gap 8 (5-15); Calcium 8.3 mg/dL (8.7-10.4); Carbon Dioxide 22 mmol/L (20-30)
[2024-06-16 09:36] LABS: BUN/Creatinine Ratio 27.5 (10.0-20.0); Blood Urea Nitrogen 22 mg/dL (9-23); Glucose 130 mg/dL (74-106)
[2024-06-16] MEDS: INSULIN LANTUS (GLARGINE) 1 /0.01ml (100units/ml) SC ONE (09:58)
[2024-06-16 12:40] VITALS: BP 120/77; PULSE 89; RESP 16; TEMP 98.3; O2SAT 97
[2024-06-16] MEDS: MEROPENEM 1GM IVPB 50 ML IV SCH (15:33)
[2024-06-16 17:00] VITALS: BP 117/71; PULSE 101; RESP 17; TEMP 98.4; O2SAT 98
[2024-06-16 21:00] VITALS: BP 118/70; PULSE 96; RESP 18; TEMP 99.6; O2SAT 95
[2024-06-17] VITALS (7 sets, daily range): BP systolic 94–127; BP diastolic 55–75; PULSE 77–101; RESP 16–21; TEMP 97.8–98.9; O2SAT 94–97
[2024-06-17] MEDS: INSULIN LANTUS (GLARGINE) 1 /0.01ml (100units/ml) SC SCH (06:34)
[2024-06-17] MEDS: Juven Fruit Punch Powder PACKET 28.8gm PO SCH (08:00)
[2024-06-17 10:12] LABS: Calcium 8.1 mg/dL (8.7-10.4); Chloride 112 mmol/L (98-107); Potassium 3.6 mmol/L (3.5-5.1); Sodium 140 mmol/L (136-145)
[2024-06-17 10:13] LABS: Anion Gap 6 (5-15); Carbon Dioxide 22 mmol/L (20-30)
[2024-06-17 10:18] LABS: Glucose 124 mg/dL (74-106)
[2024-06-17 10:19] LABS: BUN/Creatinine Ratio 30.4 (10.0-20.0); Blood Urea Nitrogen 28 mg/dL (9-23)
[2024-06-17 12:54] LABS: Basophils # (auto) 0.1 10 ^3/uL (0-0.2); Basophils % (auto) 0.7 % (0.0-2.0); Eosinophils # (auto) 0.1 10 ^3/uL (0-0.8); Hemoglobin 10.3 g/dL (12.2-16.2); Lymphocytes # (auto) 1.6 10 ^3/uL (0.4-5.4); White Blood Cell 13.4 10^3/uL (4.4-10.8)
[2024-06-17 12:56] LABS: Eosinophils % (auto) 0.7 % (0.0-7.0); Hematocrit 31.1 % (36.0-46.0); Mean Corpuscular Hemoglobin 29.2 pg (28.0-32.0); Mean Corpuscular Volume 88.6 fL (80.0-100.0); Monocytes # (auto) 0.7 10 ^3/uL (0-1.3); Monocytes % (auto) 5.3 % (0.0-12.0); Neutrophils # (auto) 10.9 10 ^3/uL (1.6-8.6); Neutrophils % (auto) 81.3 % (37.0-80.0); Nucleated Red Blood Cells % 0.1 %; Red Blood Cells 3.52 10^6/uL (4.0-5.20); Red Cell Distribution Width 14.9 % (11.8-14.3)
[2024-06-18 01:00] VITALS: BP 99/61; PULSE 98; RESP 17; TEMP 98.8; O2SAT 94
[2024-06-18 05:00] VITALS: BP 122/72; PULSE 101; RESP 18; TEMP 98.4; O2SAT 94
[2024-06-18 08:05] VITALS: PULSE 100; RESP 18; O2SAT 96
[2024-06-18 09:00] VITALS: BP 142/94; PULSE 102; RESP 20; TEMP 98.3; O2SAT 97
[2024-06-18 09:24] LABS: Basophils # (auto) 0.1 10 ^3/uL (0-0.2); Eosinophils # (auto) 0 10 ^3/uL (0-0.8); Eosinophils % (auto) 0.4 % (0.0-7.0); Hematocrit 33.5 % (36.0-46.0); Hemoglobin 11.3 g/dL (12.2-16.2); Lymphocytes # (auto) 1.2 10 ^3/uL (0.4-5.4); Lymphocytes % (auto) 10.8 % (10.0-50.0); Mean Corpuscular Hemoglobin 29.9 pg (28.0-32.0); Mean Corpuscular Hgb Conc. 33.7 g/dL (32.0-36.0); Mean Corpuscular Volume 88.6 fL (80.0-100.0); Monocytes # (auto) 0.8 10 ^3/uL (0-1.3); Monocytes % (auto) 7.3 % (0.0-12.0); Neutrophils # (auto) 8.8 10 ^3/uL (1.6-8.6); Neutrophils % (auto) 80.5 % (37.0-80.0); Nucleated Red Blood Cells % 0.1 %; Red Blood Cells 3.78 10^6/uL (4.0-5.20); White Blood Cell 10.9 10^3/uL (4.4-10.8)
[2024-06-18 13:00] VITALS: BP 101/65; PULSE 95; RESP 20; TEMP 98.7; O2SAT 94
[2024-06-18 13:54] LABS: Partial Thromboplastin Time 35.3 SEC (24.5-34.5); Prothrombin Time 10.6 sec (9.3-11.8)
[2024-06-18] MEDS: LIDOCAINE 1% (LOCAL ANESTH.) PF 5ml SDV ID ONE (16:43)
[2024-06-18 17:00] VITALS: BP 107/62; PULSE 95; RESP 20; TEMP 99.3; O2SAT 94
[2024-06-18] MEDS ORDERED: SODIUM CHLOR 0.9% PF (SALINE LOCK) 10ML VIAL/SYR IV SCH (22:00)
== END 2024-06-18 19:44 | DRG 314 ==
LOC: ER 12:29 → TELE 14:01 → TELE-CENTR 06-12 13:28 → CENTRAL 06-12 17:38
PROVIDERS: ADMIT Internal Medicine; ATTEND Internal Medicine
PROC: 0Y6R0Z3 Detachment at Right 2nd Toe, Low, Open Approach (ICD-10-PCS; principal; 2024-06-13 09:57)
PROC: 02HV33Z Insertion of Infusion Device into Superior Vena Cava, Percutaneous Approach (ICD-10-PCS; 2024-06-18)
PROC: B548ZZA Ultrasonography of Superior Vena Cava, Guidance (ICD-10-PCS; 2024-06-18)
DX: E11.69 Type 2 diabetes mellitus with other specified complication (principal); N17.0 Acute kidney failure with tubular necrosis; E87.1 Hypo-osmolality and hyponatremia; L03.115 Cellulitis of right lower limb; L97.519 Non-pressure chronic ulcer of other part of right foot with unspecified severity; M86.8X7 Other osteomyelitis, ankle and foot; E11.52 Type 2 diabetes mellitus with diabetic peripheral angiopathy with gangrene; E11.621 Type 2 diabetes mellitus with foot ulcer; K21.9 Gastro-esophageal reflux disease without esophagitis; M65.9 Synovitis and tenosynovitis, unspecified; E78.5 Hyperlipidemia, unspecified; F41.9 Anxiety disorder, unspecified; E11.65 Type 2 diabetes mellitus with hyperglycemia; F17.210 Nicotine dependence, cigarettes, uncomplicated; F32.A Depression, unspecified; L02.611 Cutaneous abscess of right foot; Z82.49 Family history of ischemic heart disease and other diseases of the circulatory system; Z83.3 Family history of diabetes mellitus; Z86.19 Personal history of other infectious and parasitic diseases; Z91.199 Patient's noncompliance with other medical treatment and regimen due to unspecified reason
CPT/HCPCS: 36415; 36569; 71045; 73700; 73720; 76937; 80048; 80053; 80307; 81001; 82962; 83605; 84702; 85007; 85025; 85027; 85610; 85652; 85730; 86141; 86850; 86900; 86901; 87040; 87070; 87075; 87077; 87186; 87205; 93005; 93926; 97110; 97116; 97162; 97530; G0378; J1100; J1815; J2001; J2185; J2250; J2405; J2543; J2704; J3490

== ENCOUNTER 2025-02-19 10:50 | Inpatient (IN) | payer MEDICAID ==
[~2025-02-19] VITALS: Ht 157.5 cm; Wt 69.5 kg
--- NOTE | 2025-02-19 11:22 | ED.PDOC ---
History of Present Illness HPI Comments 54F presents to the ER w/ no prior Hx associated to the c/c of Gen Weakness. Pt reports that she is unable to lift her legs or arms for very long, feels weak and very lethargic as we;ll. Pt BS was a 137 in triage. PMHx of DM, Anxiety, HTN, GERD and High Lipids. SHx of right BKA. Social Hx of tobacco use, and marijuana use but denies alcohol use. Denies chills, fever, N/V/D, SOB, CP no other associated symptoms, modifiers, recent injuries or sick contacts at this time. Chief Complaint: General Weakness Time Seen by MD: 11:10 Primary Care Provider: Dawson Abbasi Notes: Nurses Notes, Medications, Allergies Allergies: Coded Allergies: NO KNOWN ALLERGIES (Unverified , 01/27/21) Home Meds Active Scripts Buspirone Hcl (Buspirone Hcl) 5 Mg Tab, 1 TAB PO BID, #60 TAB 2 Refills Prov:DOMENICA SHAH MD 04/14/24 Duloxetine Hcl (Cymbalta) 60 Mg Cap, 1 CAP PO DAILY, #30 CAP 2 Refills Prov:DOMENICA SHAH MD 04/14/24 Atorvastatin Calcium (Lipitor) 10 Mg Tab, 1 TAB PO DAILY, #30 TAB Prov:LEONARDO JACKSON MD 04/11/22 Pantoprazole Sodium Sesquihydr (Protonix) 40 Mg Tab, 40 MG PO DAILY for 30 Days, #30 TAB Prov:LEONARDO JACKSON MD 04/11/22 Olanzapine (OLANZAPINE) 5 Mg Tab, 5 MG PO DAILY for 30 Days, #30 TAB Prov:JOAQUIN ISAAC MD 05/09/20 Reported Medications Empagliflozin (Jardiance) 10 Mg Tab, 1 TAB PO DAILY 06/05/24 Ondansetron HCl (Ondansetron) 4 Mg Tab, 1 TAB PO BID PRN 06/05/24 Pioglitazone Hydrochloride (ACTOS TABLET) 30 Mg Tb, 1 TAB PO DAILY 06/05/24 Insulin Lispro (Insulin Lispro Kwikpen) 100 Unit/Ml Inj, UNITS SC 06/05/24 Insulin Glargine (Basaglar Kwikpen) 100 Unit/Ml Inj, UNITS SC 06/05/24 Tramadol Hcl (Tramadol Hcl) 50 Mg Tab, 1 TAB PO Q6HR 04/06/22 Information Source: Patient, Spouse Mode of Arrival: Wheelchair Severity: Moderate Timing: Hours Duration: Since onset, Hours Prehospital treatment: None Past Medical History PAST MEDICAL HISTORY: Anxiety, DM, GERD, High Lipids, HTN Surgical History (Other): Right side BKA TEXTILE EXAMINER History: No Pertinent TEXTILE EXAMINER History Family History Family History: Reviewed,noncontributory to illness, Unknown, Family hx of HTN Social History Smoker: Cigarettes, Less Than 1 Pack/Day Alcohol: Denies ETOH Use Drugs: Marijuana Lives In: Home Constitutional: reports: weakness; denies: chills, diaphoresis, fatigue, fever, malaise, sweats, others EENTM: denies: blurred vision, double vision, ear bleeding, ear discharge, ear drainage, ear pain, ear ringing, eye pain, eye redness, hearing loss, mouth pain, mouth swelling, nasal discharge, nose bleeding, nose congestion, nose pain, photophobia, tearing, throat pain, throat swelling, voice changes, others Respiratory: denies: cough, hemoptysis, orthopnea, SOB at rest, shortness of breath, SOB with excertion, stridor, wheezing, others Cardiovascular: denies: chest pain, dizzy spells, diaphoresis, Dyspnea on exertion, edema, irregular heart beat, left arm pain, lightheadedness, palpitations, PND, syncope, others Gastrointestinal: denies: abdomen distended, abdominal pain, blood streaked bowels, constipated, diarrhea, dysphagia, difficulty swallowing, hematemesis, melena, nausea, poor appetite, poor fluid intake, rectal bleeding, rectal pain, vomiting, others Genitourinary: denies: abnormal vagina bleeding, burning, dyspareunia, dysuria, flank pain, frequency, hematuria, incontinence, pain, , vagina discharge, urgency, others Neurological: reports: left sided weakness, right sided weakness, others (Lethargic); denies: dizziness, fainting, headache, left sided numbness, numbness, paresthesia, pre-existing deficit, right sided numbness, seizure, speech problems, tingling, tremors, weakness Musculoskeletal: denies: back pain, gout, joint pain, joint swelling, muscle pain, muscle stiffness, neck pain, others Integumetry: denies: bruises, change in color, change in hair/nails, dryness, l aceration, lesions, lumps, rash, wounds, others Allergic/Immunocompromised: denies: Difficulty Healing, Frequent Infections, Hives, Itching, others Hematologic/Lymphatic: denies: anemia, blood clots, easy bleeding, easy bruising, swollen glands, others Endocrine: denies: excessive hunger, excessive sweating, excessive thirst, excessive urination, flushing, intolerance to cold, intolerance to heat, unexplained weight gain, unexplained weight loss, others Psychiatric: denies: anxiety, bipolar disorder, depression, hopeless, panic disorder, schizophrenia, sleepless, suicidal, others All Other Systems: Reviewed and Negative Physical Exam General Appearance: Moderate Distress, Normal HEENT: Normal ENT Inspection, Pharynx Normal, TMs Normal Neck: Full Range of Motion, Non-Tender, Normal, Normal Inspection Respiratory: Chest Non-Tender, Lungs Clear, No Accessory Muscle Use, No Respiratory Distress, Normal Breath Sounds Cardiovascular: No Edema, No JVD, No Murmur, No Gallop, Normal Peripheral Pulses, Regular Rate/Rhythm Breast Exam: Deferred Gastrointestinal: No Organomegaly, Non Tender, No Pulsatile Mass, Normal Bowel Sounds, Soft Genitalia: Deferred Pelvic: Deferred Rectal: Deferred Extremities: No calf tenderness, Normal capillary refill, No pedal edema, Other (Right below-knee amputation) Musculoskeletal : Apperance: Normal Neurologic: Alert, electronic warfare operator II-XII nml as Tested, No Motor Deficits, Normal Affect, Normal Mood, No Sensory Deficits Cerebellar Function: NOT DONE Reflexes: NOT DONE Skin: Dry, Normal Color, Warm Peripheral Pulses: 3+ Radial (R), 3+ Radial (L) Lymphatic: No Adenopathy Was a procedure done? Was a procedure done?: No Differential Dx Considerations may include: Generalized weakness Electrolyte imbalance X-Ray, Labs, Meds, VS Vital Signs Date Time Temp Pulse Resp B/P (MAP) Pulse Ox O2 Delivery O2 Flow Rate FiO2 02/19/25 11:47 98.1 77 20 136/78 (97) 96 98.1 02/19/25 11:47 77 20 96 Room Air* 0 21 02/19/25 11:12 81 02/19/25 11:12 97.8 81 18 141/71 (94) 99 97.8 Lab Test 02/19/25 11:45 02/19/25 11:30 02/19/25 11:03 Range/Units POC Glucose 145 H 137 H 70-106 mg/dl White Blood Count 23.7 H 4.4-10.8 10^3/uL Red Blood Count 4.29 4.0-5.20 10^6/uL Hemoglobin 11.7 L 12.2-16.2 g/dL Hematocrit 36.5 36.0-46.0 % Mean Corpuscular Volume 84.9 80.0-100.0 fL Mean Corpuscular Hemoglobin 27.3 L 28.0-32.0 pg Mean Corpuscular Hemoglobin Concent 32.1 32.0-36.0 g/dL Red Cell Distribution Width 15.7 H 11.8-14.3 % Platelet Count 396 140-450 10^3/uL Mean Platelet Volume 9.0 6.9-10.8 fL Neutrophils (%) (Auto) 37.0-80.0 % Lymphocytes (%) (Auto) 10.0-50.0 % Monocytes (%) (Auto) 0.0-12.0 % Basophils (%) (Auto) 0.0-2.0 % Neutrophils # (Auto) 1.6-8.6 10 ^3/uL Lymphocytes # (Auto) 0.4-5.4 10 ^3/uL Monocytes # (Auto) 0-1.3 10 ^3/uL Differential Total Cells Counted Pending Neutrophils % (Manual) Pending Band Neutrophils % (Manual) Pending Lymphocytes % (Manual) Pending Monocytes % (Manual) Pending Eosinophils % (Manual) Pending Basophils % (Manual) Pending Metamyelocytes % (manual) Pending Myelocytes % (Manual) Pending Promyelocytes % (Manual) Pending Blast Cells % (Manual) Pending Reactive Lymphocytes Pending Platelet Estimate Pending Sodium Level 138 136-145 mmol/L Potassium Level 1.5 *L 3.5-5.1 mmol/L Chloride Level 105 98-107 mmol/L Carbon Dioxide Level 17 L 20-31 mmol/L Anion Gap 16 H 5-15 Blood Urea Nitrogen 40 H 9-23 mg/dL Creatinine 2.38 H 0.550-1.02 mg/dL Glomerular Filtration Rate Calc 24 >90 mL/min BUN/Creatinine Ratio 16.8 10.0-20.0 Serum Glucose 146 H 74-106 mg/dL Calcium Level 8.3 L 8.7-10.4 mg/dL Troponin I High Sensitivity 32 </=34 ng/L Beta-Hydroxybutyric Acid Pending Plasma/Serum Blood Alcohol < 3.0 <10 mg/dL Current Medications Medications (Trade) Dose Ordered Sig/John Route Start Time Stop Time Status Last Admin Sodium Chloride 1,000 ml @ 1,000 mls/hr Q1H ONCE IV 02/19/25 11:15 02/19/25 12:14 02/19/25 11:37 Patient alert. Generalized weakness. She does have dry mucous membrane. Heart rate within normal limits. Saturation pristine on room air. Possible sepsis. Possible DKA. Establish intravenous access. Was given fluids. Was given Zosyn. Was given Flagyl. Possible aspiration pneumonia. Possible colitis. She does feels slightly confused for which CT scan of the head is within normal limits. Continue monitoring. Time of 1ST Reevaluation: 11:40 Reevaluation 1ST: Unchanged Patient Education/Counseling: Diagnosis, Treatment, Prognosis Family Education/Counseling: Diagnosis, Treatment, Prognosis Departure 1 Departure Time of Disposition: 11:54 Impression: Primary Impression: Sepsis, unspecified organism Qualified Codes: A41.9 - Sepsis, unspecified organism Additional Impressions: Severe dehydration CVA (cerebral vascular accident) Qualified Codes: I63.9 - Cerebral infarction, unspecified Diabetes mellitus with hyperglycemia Qualified Codes: E13.65 - Other specified diabetes mellitus with hyperglycemia Hypokalemia Disposition: ADMITTED INPATIENT Admit to: Med Surg Condition: Guarded Critical Care Note Critical Care Time?: Yes (90 min-critical care time only) Critical care comment: Sepsis protocol Stability Stability form required: No Heart Score Heart Score: Heart Score Response (Comments) Value History N/A 0 EKG N/A 0 Age N/A 0 Risk Factors N/A 0 Troponin N/A 0 Total 0 I personally scribed for MACK OROPEZA MD ([email or web address]) on 02/19/25 at 11:22. Electronically submitted by Roderick Iqbal ([email or web address]). MACK OROPEZA MD Feb 19, 2025 11:22
[2025-02-19] MEDS: SODIUM CHLORIDE 0.9% 1,000 ML IV ONE ×3 (11:37→12:48)
--- NOTE | 2025-02-19 11:37 | DVH ---
EXAM: CT STROKE CTH HISTORY: cva COMPARISON: None TECHNIQUE: Axial images of the head were obtained and reformatted in coronal and sagittal planes. All CT scans at this medical facility are performed using dose modulation techniques as appropriate t o a performed exam including the following: Automated exposure control was utilized; adjustment of th e MA and/or KV according to patient size; and use of iterative reconstruction technique. CT Dose: CTDI volume is 56 mGy. Dose-length product is 998 mGy*cm FINDINGS: There is a small subtle hypodense area extending from the right jorge radiata into the right basal g anglia (axial images 35 through 37). This is compatible with an age-indeterminate infarct. There is a small chronic infarct in the right basal ganglia. There is no evidence of acute intracranial hemorrhage, mass, mass effect midline shift. There is no h ydrocephalus or extra-axial fluid collection. The visualized paranasal sinuses and mastoid air cells are clear. The calvarium is intact. IMPRESSION: 1. Small age-indeterminate infarct extending from the right jorge radiata into the right basal gangl ia. Further evaluation with MRI brain with diffusion-weighted imaging is recommended. HS:Y
--- NOTE | 2025-02-19 11:38 | DVH ---
CHEST RADIOGRAPH Indication: sob Technique: Single frontal view of the chest was obtained Comparison: XY CHEST PORTABLE on DOS: 06/11/24 FINDINGS: Lines and Tubes: None Lungs: No focal consolidation. Pleura: No effusion. No pneumothorax. Cardiomediastinal contours: Unremarkable Bones: No acute osseous abnormality. IMPRESSION: 1. No acute cardiopulmonary disease.
[2025-02-19 11:45] LABS: Hematocrit 36.5 % (36.0-46.0); Hemoglobin 11.7 g/dL (12.2-16.2); Mean Corpuscular Hemoglobin 27.3 pg (28.0-32.0); Mean Corpuscular Hgb Conc. 32.1 g/dL (32.0-36.0); Mean Corpuscular Volume 84.9 fL (80.0-100.0); Platelet Count (auto) 396 10^3/uL (140-450); Red Blood Cells 4.29 10^6/uL (4.0-5.20); Red Cell Distribution Width 15.7 % (11.8-14.3); White Blood Cell 23.7 10^3/uL (4.4-10.8)
[2025-02-19 11:47] VITALS: PULSE 77; RESP 20; O2SAT 96
[2025-02-19 11:50] LABS: Basophils % (manual) 0 (0.0-2.0); Blast Cells 0; Eosinophils % (manual) 0 (0-7); Metamyelocytes % 0; Myelocytes % 0; Promyelocytes % 0; Reactive Lymphocytes 0
[2025-02-19 11:52] LABS: Chloride 105 mmol/L (98-107); Sodium 138 mmol/L (136-145)
[2025-02-19 11:53] LABS: Anion Gap 16 (5-15)
[2025-02-19 11:59] LABS: BUN/Creatinine Ratio 16.8 (10.0-20.0); Blood Urea Nitrogen 40 mg/dL (9-23); Calcium 8.3 mg/dL (8.7-10.4); Carbon Dioxide 17 mmol/L (20-31); Glucose 146 mg/dL (74-106)
[2025-02-19 12:02] LABS: Blood Alcohol < 3.0 mg/dL (<10); Potassium 1.5 mmol/L (3.5-5.1)
[2025-02-19 12:14] LABS: Band Neutrophils % (manual) 8; Lymphocytes % (manual) 6 (10.0-50.0); Monocytes % (manual) 4 (0-12)
[2025-02-19] MEDS: metroNIDAZOLE 500MG/100ML 100 ML IV ONE (12:14)
[2025-02-19 12:15] LABS: Platelet Estimate Adequate
[2025-02-19] MEDS: PIPERACILLIN-TAZOB 3.375GM 100 ML IV ONE (12:48)
[2025-02-19] MEDS: POTASSIUM CHL 20MEQ/50ML 50 ML IV SCH (12:51)
[2025-02-19] MEDS: SODIUM CHL 0.9% 100 ML IV SCH (12:51)
[2025-02-19] MEDS ORDERED: HYDROcodone-ACET 5/325MG TAB PO PRN (13:45)
[2025-02-19] MEDS ORDERED: NITROGLYCERIN 0.4 MG SL TAB SL PRN (13:45)
--- NOTE | 2025-02-19 14:39 | DVHHP2 ---
History of Present Illness Reason for Visit: Left sided weakness History of Present Illness Edie Kaur is a 54-year-old female with past medical history of right BKA, hyperlipidemia, hypertension, diabetes, anxiety, major depressive disorder, anxiety, and GERD who came in for generalized weakness. Patient is being seen wi th her significant other at the bedside. He states that on Monday after work he noticed that she wasn't feeling well, had some difficulty moving on her left side. On Monday he states she slept most of the day, but was still not moving well and he describes it as her "flopping around and her speech was off". He states that since her BKA she has been mostly crawling to get around. He decided that if she still wasn't doing well in the morning he would take her to the hospital. This morning the patient still could not move her left leg, she had improved movement of her left arm, and her speech remained slurred so he brought her to the hospital. On assessment, patient's speech is slurred and repetitive, she only has minimal control of her left arm, and can not move her left leg. Cardiovascular: HTN, hyperipidemia GI: GERD Psych: Anxiety, Depression Endocrine: Diabetes Past Surgical History: Other (right BKA July 2024) Smoke: <1 pack per day ALCOHOL: none Drugs: Marijuana Lives: with Family Domestic Violence: Neg Review of Systems Constitutional: No: Fever, Chills, Sweats, Weakness, Malaise, Other Eyes: No: Pain, Vision change, Conjunctivae inflammation, Eyelid inflammation, Other, Redness ENT: No: Ear pain, Ear discharge, Nose pain, Nose discharge, Nose congestion, Mouth pain, Mouth swelling, Throat pain, Throat swelling, Other Respiratory: No: Cough, Dry, Shortness of breath, SOB with excertion, Wheezing, Hemoptysis, Pleuritic Pain, Sputum, Wheezing, Other Cardiovascular: No: Chest Pain, Palpitations, Orthopnea, Paroxysmal Noc. Dyspnea, Edema, Lt Headedness, Other Gastrointestinal: No: Nausea, Vomiting, Abdominal Pain, Diarrhea, Constipation, Melena, Hematochezia, Other Genitourinary: No Dysuria, No Frequency, No Incontinence, No Hematuria, No Retention, No Other Musculoskeletal: No: other, neck pain, shoulder pain, arm pain, back pain, hand pain, leg pain, foot pain Skin: No: Rash, Lesions, Jaundice, Bruising, Other Neurological: Weakness (Left sided weakness for about 3 days); No: Numbness, Incoordination, Change in speech, Confusion, Seizures, Other Allergies: Coded Allergies: NO KNOWN ALLERGIES (Unverified , 01/27/21) Medications Current Medications Medications Dose Ordered Sig/John Route Start Time Stop Time Status Last Admin Dose Admin Potassium Chloride 50 ml @ 25 mls/hr Q2H IV 02/19/25 13:00 02/19/25 18:59 Sodium Chloride 100 ml @ 50 mls/hr Q2H IV 02/19/25 13:00 Exam Vital Signs Vital Signs Date Time Temp Pulse Resp B/P (MAP) Pulse Ox O2 Delivery O2 Flow Rate FiO2 02/19/25 11:47 98.1 77 20 136/78 (97) 96 98.1 02/19/25 11:47 Room Air* 0 21 General Appearance: Alert, Oriented X3, Cooperative, moderate distress HEENT: Atraumatic, PERRLA, Mucous membr. moist/pink Respiratory: Clear to auscultation, Normal air movement Cardiovascular: Regular rate, Normal S1, Normal S2 Abdominal: Normal bowel sounds, Soft, No tenderness Extremities: No clubbing, No cyanosis, Other (right BKA, left knee swollen, red, warm, painful) Skin: No rashes, No breakdown, No significant lesion (multiple skin abrasions to left arm and left leg) Neuro: Other (speech is slurred, patient is repetitive. Right BKA July 2024, received prosthesis about 1 week ago) Labs/Xrays Labs Test 02/19/25 13:14 02/19/25 11:45 02/19/25 11:30 Range/Units Lactic Acid Level 0.9 0.4-2.0 mmol/L Troponin I High Sensitivity 30 </=34 ng/L POC Glucose 145 H 70-106 mg/dl White Blood Count 23.7 H 4.4-10.8 10^3/uL Red Blood Count 4.29 4.0-5.20 10^6/uL Hemoglobin 11.7 L 12.2-16.2 g/dL Hematocrit 36.5 36.0-46.0 % Mean Corpuscular Volume 84.9 80.0-100.0 fL Mean Corpuscular Hemoglobin 27.3 L 28.0-32.0 pg Mean Corpuscular Hemoglobin Concent 32.1 32.0-36.0 g/dL Red Cell Distribution Width 15.7 H 11.8-14.3 % Platelet Count 396 140-450 10^3/uL Mean Platelet Volume 9.0 6.9-10.8 fL Neutrophils (%) (Auto) 37.0-80.0 % Lymphocytes (%) (Auto) 10.0-50.0 % Monocytes (%) (Auto) 0.0-12.0 % Basophils (%) (Auto) 0.0-2.0 % Neutrophils # (Auto) 1.6-8.6 10 ^3/uL Lymphocytes # (Auto) 0.4-5.4 10 ^3/uL Monocytes # (Auto) 0-1.3 10 ^3/uL Differential Total Cells Counted 100.0 100 Neutrophils % (Manual) 82 H 37.0-80.0 Band Neutrophils % (Manual) 8 Lymphocytes % (Manual) 6 L 10.0-50.0 Monocytes % (Manual) 4 0-12 Eosinophils % (Manual) 0 0-7 Basophils % (Manual) 0 0.0-2.0 Metamyelocytes % (manual) 0 Myelocytes % (Manual) 0 Promyelocytes % (Manual) 0 Blast Cells % (Manual) 0 Reactive Lymphocytes 0 Platelet Estimate Adequate Sodium Level 138 136-145 mmol/L Potassium Level 1.5 *L 3.5-5.1 mmol/L Chloride Level 105 98-107 mmol/L Carbon Dioxide Level 17 L 20-31 mmol/L Anion Gap 16 H 5-15 Blood Urea Nitrogen 40 H 9-23 mg/dL Creatinine 2.38 H 0.550-1.02 mg/dL Glomerular Filtration Rate Calc 24 >90 mL/min BUN/Creatinine Ratio 16.8 10.0-20.0 Serum Glucose 146 H 74-106 mg/dL Calcium Level 8.3 L 8.7-10.4 mg/dL Beta-Hydroxybutyric Acid 1.216 H < 0.4 mmol/L Plasma/Serum Blood Alcohol < 3.0 <10 mg/dL CHEST RADIOGRAPH FINDINGS: Lines and Tubes: None Lungs: No focal consolidation. Pleura: No effusion. No pneumothorax. Cardiomediastinal contours: Unremarkable Bones: No acute osseous abnormality. IMPRESSION: 1. No acute cardiopulmonary disease. EXAM: CT STROKE CTH FINDINGS: There is a small subtle hypodense area extending from the right jorge radiata into the right basal ganglia (axial images 35 through 37). This is compatible with an age-indeterminate infarct. There is a small chronic infarct in the right basal ganglia. There is no evidence of acute intracranial hemorrhage, mass, mass effect midline shift. There is no hydrocephalus or extra-axial fluid collection. The visualized paranasal sinuses and mastoid air cells are clear. The calvarium is intact. IMPRESSION: 1. Small age-indeterminate infarct extending from the right jorge radiata into the right basal ganglia. Further evaluation with MRI brain with diffusion- weighted imaging is recommended. EXAM: CT CT L KNEE WO CONTRAST Radiation Dose Information: CT Dose: CTDI volume is 7.75 mGy. Dose-length product is 231.29 mGy*cm Findings/Impression: There is no evidence of an acute fracture, dislocation, blastic, or lytic lesions. No radiopaque foreign bodies. Moderate atherosclerosis. [id number] diffuse soft tissue edema. Small joint effusion. Palacios's cyst. INATION: MRI BRAIN HEAD WO CONTRAST FINDINGS: There are multiple small foci of restricted diffusion in the right jorge radiata and right basal ganglia, largest focus in the right jorge radiata measuring 1.1 cm. There are also is 0.9 cm focus of restricted diffusion in the left anteromedial frontal lobe along the genu of the corpus callosum. There are additional smaller foci of restricted diffusion in the left jorge radiata and left basal ganglia. These are consistent with small acute to subacute infarcts. There is no evidence of acute hemorrhage. There is no significant edema or associated mass effect. There is no hydrocephalus or extra-axial fluid collection. The visualized intracranial vasculature demonstrates appropriate flow-voids. The sagittal midline structures appear unremarkable. The craniocervical junction is within normal limits. The calvarium demonstrates normal marrow signal. There is small amount of fluid in the left mastoid air cells. The paranasal sinuses are clear. IMPRESSION: 1. There are multiple small foci of acute to subacute infarct in the right jorge radiata and right basal ganglia. There are also multiple small acute to subacute infarcts in the left anteromedial frontal lobe and in the left jorge radiata and left basal ganglia. There is no evidence of acute hemorrhage. Assessment/Plan Assessment/Plan Assessment: CVA (cerebral vascular accident), R/O septic left knee, Hypokalemia, Hyperglycemia, Leukocytosis, Acute kidney injury, Diabetes, Hypertension, Anxiety, Depression, Hyperlipidemia, Plan: Admit to Tele, Neurology consult, MRI of brain, CT left knee, IV antibiotics, IV hydration, UDS, UA, Potassium replacement, Manage/Monitor electrolytes closely, Home medications reconciled, Plan discussed with: Patient, Spouse My Orders Orders - DANDRE MILLER Procedure Category Date Status Time Ct L Knee Wo Contrast CT 02/19/25 Logged 13:55 Date of Service: Feb 19, 2025 Billing Provider: DANDRE MILLER Common Visit Codes: [id number] INP/OBS CARE (HIGH) DANDRE MILLER Feb 19, 2025 14:39
--- NOTE | 2025-02-19 14:59 | DVH ---
EXAMINATION: MRI BRAIN HEAD WO CONTRAST INDICATION: cva COMPARISON: None TECHNIQUE: Multiplanar, multisequence magnetic resonance imaging of the brain was performed without t he use of intravenous contrast. FINDINGS: There are multiple small foci of restricted diffusion in the right jorge radiata and right basal juan glia, largest focus in the right jorge radiata measuring 1.1 cm. There are also is 0.9 cm focus of restricted diffusion in the left anteromedial frontal lobe along the genu of the corpus callosum. Th ere are additional smaller foci of restricted diffusion in the left jorge radiata and left basal juan glia. These are consistent with small acute to subacute infarcts. There is no evidence of acute hemor rhage. There is no significant edema or associated mass effect. There is no hydrocephalus or extra-axial fluid collection. The visualized intracranial vasculature de monstrates appropriate flow-voids. The sagittal midline structures appear unremarkable. The craniocer vical junction is within normal limits. The calvarium demonstrates normal marrow signal. There is sma ll amount of fluid in the left mastoid air cells. The paranasal sinuses are clear. IMPRESSION: 1. There are multiple small foci of acute to subacute infarct in the right jorge radiata and right b dwayne ganglia. There are also multiple small acute to subacute infarcts in the left anteromedial front al lobe and in the left jorge radiata and left basal ganglia. There is no evidence of acute hemorrha ge. HS:Y
--- NOTE | 2025-02-19 15:02 | DVH ---
EXAM: CT CT L KNEE WO CONTRAST INDICATION: SWOLLEN LEFT KNEE EXAM DATE: 02/19/2025 02:21 PM COMPARISON: CT CT L FOOT WO CONTRAST on DOS: 06/18/24, CT CT R FOOT WO CONTRAST on DOS: 04/11/24 TECHNIQUE: Multiple axial CT images of the left knee were obtained using bone algorithm. Axial and co danis reformatting was done. Bone and soft tissue windows were reviewed. Radiation Dose Information: CT Dose: CTDI volume is 7.75 mGy. Dose-length product is 231.29 mGy*cm Findings/Impression: There is no evidence of an acute fracture, dislocation, blastic, or lytic lesions. No radiopaque foreign bodies. Moderate atherosclerosis. Nuki-aa-wziobzfs diffuse soft tissue edema. Small joint effusion. Palacios's cyst.
[2025-02-19] MEDS: ONDANSETRON HCL 4 MG/2 ML VIAL IV PRN (15:37)
[2025-02-19] MEDS: MORPHINE SULFATE INJ 2 MG/ml SYRG IV PRN (15:37)
[2025-02-19] MEDS ORDERED: ATOR40TA52 PO (15:44)
[2025-02-19] MEDS ORDERED: GEMF-66 PO (15:44)
[2025-02-19] MEDS ORDERED: HYDR-3682 PO (15:44)
[2025-02-19] MEDS ORDERED: DULO1CAP5 PO (15:44)
[2025-02-19] MEDS ORDERED: LAMO25TA27 PO (15:44)
[2025-02-19 16:00] VITALS: PULSE 75; RESP 16; O2SAT 98
[2025-02-19 16:00] LABS: Alanine Aminotransferase 33 U/L (7-40); Anion Gap 17 (5-15); Aspartate Aminotransferase 34 U/L (13-40); BUN/Creatinine Ratio 15.8 (10.0-20.0); Sodium 139 mmol/L (136-145)
[2025-02-19 16:06] LABS: Alkaline Phosphatase 134 U/L (46-116); Bilirubin, Total < 0.2 mg/dL (0.2-1.0); Blood Urea Nitrogen 35 mg/dL (9-23); Calcium 7.8 mg/dL (8.7-10.4); Carbon Dioxide 14 mmol/L (20-31); Chloride 108 mmol/L (98-107); Glucose 146 mg/dL (74-106); Total Protein 5.4 g/dL (5.7-8.2)
[2025-02-19 16:08] LABS: Potassium 1.5 mmol/L (3.5-5.1)
[2025-02-19] MEDS ORDERED: VANCOMYCIN PER PHARMACY 0 MG IV SCH (16:15)
[2025-02-19] MEDS: VANCOMYCIN 1GM/200ML PM 250 ML IV ONE (16:45)
[2025-02-19] MEDS: GEMFIBROZIL 600 MG TAB PO SCH (17:15)
[2025-02-19] MEDS: traMADol HCL 50 MG TAB PO SCH (17:15)
[2025-02-19] MEDS: cefTRIAXone 1GM/50ML D5W 50 ML IV SCH (17:15)
[2025-02-19] MEDS: ACCU-CHEK COMFORT CURVE STRIP VI SCH (17:16)
[2025-02-19] MEDS: InsuLIN REG 1unit/0.01ml Soln (100units/ml) SC SCH ×2 (17:24→22:00)
[2025-02-19 17:56] LABS: Urine Bacteria None Seen /hpf (None Seen)
[2025-02-19 18:23] LABS: Urine Blood 1+ /uL (Negative); Urine Clarity Clear (Clear); Urine Color Colorless (Yellow); Urine Protein, UAD 2+ (Negative); Urine Specific Gravity 1.008 (1.001-1.035); Urine Squamous Epithelial Cell FEW /hpf (<5); Urine Urobilinogen Normal (Negative); Urine WBC 2 /HPF (0-5); Urine pH 6.5 (5.0-9.0)
[2025-02-19 18:26] LABS: Cannabinoid Screen, Urine Pos (NEGATIVE)
[2025-02-19 18:27] LABS: Amphetamine Screen, Urine Neg (NEGATIVE); Barbiturate Scree,Urine Neg (NEGATIVE); Benzodiazephine Screen, Urine Neg (NEGATIVE); Cocaine Screen, Urine Neg (NEGATIVE); Opiate Scree,Urine Neg (NEGATIVE); Phencyclidine Screen, Urine Neg (NEGATIVE)
[2025-02-19 19:44] VITALS: PULSE 75; RESP 17; O2SAT 100
[2025-02-19 21:19] LABS: Sodium 141 mmol/L (136-145)
[2025-02-19 21:20] LABS: Anion Gap 14 (5-15)
[2025-02-19 21:25] LABS: BUN/Creatinine Ratio 15.9 (10.0-20.0)
[2025-02-19] MEDS: POTASSIUM EFFERVESENT TAB 25 MEQ PO ONE (21:25)
[2025-02-19 21:26] LABS: Blood Urea Nitrogen 33 mg/dL (9-23); Calcium 7.8 mg/dL (8.7-10.4); Carbon Dioxide 16 mmol/L (20-31); Chloride 111 mmol/L (98-107); Glucose 68 mg/dL (74-106)
[2025-02-19 21:27] LABS: Potassium 1.7 mmol/L (3.5-5.1)
[2025-02-19] MEDS: ACETAMINOPHEN 325 MG TAB PO PRN (21:37)
[2025-02-19] MEDS ORDERED: POTASSIUM CHL 20MEQ/100ML 100 ML IV SCH ×2 (22:15→23:15)
[2025-02-19] MEDS ORDERED: POTASSIUM CHL 20MEQ/100ML 50 ML IV SCH (23:30)
[2025-02-19] MEDS ORDERED: POTASSIUM CHL 20MEQ/50ML 50 ML IV SCH (23:45)
[2025-02-20] MEDS: POTASSIUM CHL 20MEQ/50ML 50 ML IV SCH ×2 (00:30→08:22)
[2025-02-20 06:54] LABS: Alanine Aminotransferase 30 U/L (7-40); Anion Gap 14 (5-15); Aspartate Aminotransferase 29 U/L (13-40); BUN/Creatinine Ratio 16.3 (10.0-20.0); Glucose 98 mg/dL (74-106); Sodium 141 mmol/L (136-145)
[2025-02-20 06:56] LABS: Chloride 110 mmol/L (98-107)
[2025-02-20 06:57] LABS: Albumin 2.7 g/dL (3.2-4.8); Alkaline Phosphatase 140 U/L (46-116); Bilirubin, Total < 0.2 mg/dL (0.2-1.0); Blood Urea Nitrogen 33 mg/dL (9-23); Carbon Dioxide 17 mmol/L (20-31)
[2025-02-20 06:58] LABS: Potassium 2.1 mmol/L (3.5-5.1)
[2025-02-20 07:04] LABS: Hematocrit 32.4 % (36.0-46.0); Hemoglobin 10.9 g/dL (12.2-16.2); Mean Corpuscular Hemoglobin 27.9 pg (28.0-32.0); Mean Corpuscular Hgb Conc. 33.6 g/dL (32.0-36.0); Mean Corpuscular Volume 83.1 fL (80.0-100.0); Platelet Count (auto) 398 10^3/uL (140-450); Red Blood Cells 3.89 10^6/uL (4.0-5.20); Red Cell Distribution Width 15.7 % (11.8-14.3); White Blood Cell 21.9 10^3/uL (4.4-10.8)
[2025-02-20] MEDS ORDERED: POTASSIUM CHL 20MEQ/100ML 100 ML IV SCH ×2 (07:15)
[2025-02-20 07:16] LABS: Basophils % (manual) 0 (0.0-2.0); Blast Cells 0; Eosinophils % (manual) 0 (0-7); Metamyelocytes % 0; Myelocytes % 0; Promyelocytes % 0; Reactive Lymphocytes 0
[2025-02-20 07:35] VITALS: PULSE 81; RESP 15; O2SAT 99
[2025-02-20 08:39] LABS: Band Neutrophils % (manual) 11; Lymphocytes % (manual) 7 (10.0-50.0); Monocytes % (manual) 1 (0-12); Platelet Estimate Adequate
--- NOTE | 2025-02-20 09:08 | ECG ---
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
--- NOTE | 2025-02-20 09:15 | DVHINCON2 ---
Date of service: Feb 20, [address] Ruth Reason for Consultation CVA History of Present Illness Mr. Kaur is a 54 years old right-handed female with a history of hypertension, diabetes, dyslipidemia, anxiety, GERD, osteo myelitis status post right BKA, she came to the [facility] on 01/2625 with a chief company of general weakness. At this time, she was alert and oriented, she provided the following history Around 02/16/2025, she developed general weakness with a left-sided more affected, in that she could not move the left arm than leg, with the leg more affected, she was noticed swelling in the left arm. She denies similar problems previously, she denies a history of stroke In the hospital, her seizure in the MRI shows evidence of acute bilateral m ultiple strokes At home, she takes Lipitor, Lopid, but she does not remember taking aspirin, Plavix or other blood thinner UDS, 02/19/2025: Cannabinoids Plasma alcohol, 02/19/2025: Three Urinalysis, 02/19, : WBC: 2, urine leukocyte esterase WBC/HB/PLT/MCV, 02/20/2025: 21.9/10.9/398/83.1 K, 02/19/2025: 1.7, 02/20/2025: 2.1 BUN/CR, 02/20/2025: 33/2.03 HGB A1c, 06/03/2024: 13.1 Liver function tests, 02/20/2025: Unremarkable TG/HDL/LDL/HDL, 04/11/2024: 180/238/164/43 CT head, : Small age-indeterminate infarct extending from the right jorge radiata into the right basal ganglia. Further evaluation with MRI brain with diffusion-weighted imaging is recommended. MRI head, 02/19/2025: 1. There are multiple small foci of acute to subacute infarct in the right jorge radiata and right basal ganglia. There are also multiple small acute to subacute infarcts in the left anteromedial frontal lobe and in the left ojrge radiata and left basal ganglia. There is no evidence of acute hemorrhage. Past Medical History Hypertension, diabetes, dyslipidemia, anxiety, GERD, osteomyelitis, Past Surgical History Right BKA Family History: Cancer Aunt Family history: Diabetes mellitus Grandfather Family History Hypertension, diabetes, cancer Social History She smokes tobacco, was two packs daily now 4-5 cigarettes daily, she denies a history of drug or alcohol abuse Allergies: Coded Allergies: NO KNOWN ALLERGIES (Unverified , 01/27/21) Home Meds Active Scripts Buspirone Hcl (Buspirone Hcl) 5 Mg Tab, 1 TAB PO BID, #60 TAB 2 Refills Prov:DOMENICA SHAH MD 04/14/24 Pantoprazole Sodium Sesquihydr (Protonix) 40 Mg Tab, 40 MG PO DAILY for 30 Days, #30 TAB Prov:LEONARDO JACKSON MD 04/11/22 Olanzapine (OLANZAPINE) 5 Mg Tab, 5 MG PO DAILY for 30 Days, #30 TAB Prov:JOAQUIN ISAAC MD 05/09/20 Reported Medications Duloxetine HCl (Duloxetine HCl) 30 Mg Cap, 1 CAP PO DAILY 02/19/25 Atorvastatin Calcium (ATORVASTATIN CALCIUM) 40 Mg Tab, 1 TAB PO DAILY 02/19/25 Gemfibrozil (Gemfibrozil) 600 Mg Tab, 1 TAB PO BIDWM 02/19/25 Lamotrigine (Lamotrigine) 25 Mg Tab, 1 TAB PO DAILY 02/19/25 Hydroxyzine Hcl (Hydroxyzine Hcl) 25 Mg Tab, 1 TAB PO DAILY 02/19/25 Empagliflozin (Jardiance) 10 Mg Tab, 1 TAB PO DAILY 06/05/24 Ondansetron HCl (Ondansetron) 4 Mg Tab, 1 TAB PO BID PRN 06/05/24 Pioglitazone Hydrochloride (ACTOS TABLET) 30 Mg Tb, 1 TAB PO DAILY 06/05/24 Insulin Lispro (Insulin Lispro Kwikpen) 100 Unit/Ml Inj, UNITS SC 06/05/24 Insulin Glargine (Basaglar Kwikpen) 100 Unit/Ml Inj, UNITS SC 06/05/24 Tramadol Hcl (Tramadol Hcl) 50 Mg Tab, 1 TAB PO Q6HR 04/06/22 Discontinued Scripts Duloxetine Hcl (Cymbalta) 60 Mg Cap, 1 CAP PO DAILY, #30 CAP 2 Refills Prov:DOMENICA SHAH MD 04/14/24 Atorvastatin Calcium (Lipitor) 10 Mg Tab, 1 TAB PO DAILY, #30 TAB Prov:LEONARDO JACKSON MD 04/11/22 Current Medications Current Medications Medications (Trade) Dose Ordered Sig/John Route PRN Reason Start Time Stop Time Status Last Admin Potassium Chloride 50 ml @ 25 mls/hr Q2H IV 02/19/25 13:00 02/19/25 19:03 DC 02/19/25 19:04 Sodium Chloride 100 ml @ 50 mls/hr Q2H IV 02/19/25 13:00 02/19/25 23:50 Acetaminophen/ Hydrocodone Bitart ([place]ovan[place] 5/325MG Tab) 1 tab Q4HP PRN PO MODERATE PAIN (4-6 PAIN SCALE) 02/19/25 13:45 02/19/25 15:44 DC Ondansetron HCl (Zofran) 4 mg Q4HP PRN IV NAUSEA / VOMITING 02/19/25 13:45 02/19/25 15:37 Docusate Sodium (Colace Capsule) 100 mg BIDPRN PRN PO FOR CONSTIPATION 02/19/25 13:45 Acetaminophen (Tylenol Tablet) 650 mg Q6HP PRN PO PAIN SCALE 1-3 OR TEMP>100.4 02/19/25 13:45 02/19/25 21:37 Nitroglycerin (Ntrostat Sublingual) 0.4 mg Q5MINP PRN SL FOR CHEST PAIN 02/19/25 13:45 Morphine Sulfate 2 mg Q30M PRN IV FOR CHEST PAIN 02/19/25 13:45 02/19/25 15:37 Pioglitazone HCl (Actos Tablet) 30 mg DAILY PO 02/20/25 10:00 Tramadol HCl (Ultram) 50 mg Q6HR PO 02/19/25 18:00 02/20/25 06:00 Diagnostic Test (Pha) (Accu-Chek Comfort Curve T) 1 strip ACHS 02/19/25 17:00 02/19/25 22:15 Insulin Human Regular (InsuLIN R) HS SC 02/19/25 22:00 Insulin Human Regular (InsuLIN R) AC SC 02/19/25 17:00 02/19/25 17:24 Dextrose 50 ml UD PRN IV Blood Sugar LESS THAN 60 02/19/25 15:45 Duloxetine HCl (Cymbalta Capsule) 30 mg DAILY PO 02/20/25 10:00 Gemfibrozil (Lopid Tablet) 600 mg BIDAC PO 02/19/25 17:00 02/19/25 17:15 Atorvastatin Calcium (Lipitor) 40 mg DAILY PO 02/20/25 10:00 02/20/25 07:28 DC Hydroxyzine Pamoate (Vistaril Oral) 25 mg DAILY PO 02/20/25 10:00 Lamotrigine (LaMICtal TABLET) 25 mg DAILY PO 02/20/25 10:00 Ceftriaxone Sodium 50 ml @ 100 mls/hr Q24H IV 02/19/25 17:00 02/19/25 17:15 Vancomycin HCl 0 ml @ 0 mls/hr UD IV 02/19/25 16:15 Melatonin (Melatonin) 10 mg HS PO 02/20/25 22:00 02/19/25 23:03 DC Potassium Chloride 100 ml @ 50 mls/hr Q2H IV 02/19/25 22:15 02/19/25 23:02 DC Potassium Chloride 100 ml @ 50 mls/hr Q2H IV 02/19/25 23:15 02/20/25 05:14 Cancel Melatonin (Melatonin) 10 mg HS PO 02/20/25 22:00 Potassium Chloride 50 ml @ 50 mls/hr Q2H IV 02/19/25 23:30 02/20/25 00:01 DC Potassium Chloride 100 ml @ 50 mls/hr Q2H IV 02/20/25 00:00 02/19/25 23:58 DC Potassium Chloride 50 ml @ 25 mls/hr Q2H IV 02/19/25 23:45 02/20/25 00:05 DC Potassium Chloride 50 ml @ 25 mls/hr Q2H IV 02/20/25 00:15 02/20/25 06:14 DC 02/20/25 04:24 Potassium Chloride 100 ml @ 50 mls/hr Q2H IV 02/20/25 07:15 02/20/25 11:14 UNV Atorvastatin Calcium (Lipitor) 40 mg HS PO 02/20/25 22:00 Potassium Chloride 50 ml @ 25 mls/hr Q2H IV 02/20/25 08:15 02/20/25 12:14 02/20/25 08:22 Review of Systems As above, the other systems are negative Vital Signs Vital Signs Date Time Temp Pulse Resp B/P (MAP) Pulse Ox O2 Delivery O2 Flow Rate FiO2 02/20/25 08:00 77 02/20/25 07:35 15 99 Room Air* 0 21 02/20/25 07:35 98.2 145/75 (98) 98.2 Physical Exam GENERAL EXAM: General: the patient is well developed and nourished. No acute distress. HEENT: Normocephalic, neck is supple, no carotid bruits. No mass. RESPIRATORY: Normal respiratory effort with symmetrical lung expansion. Lungs clear to auscultation. CARDIOVASCULAR: Regular rate and rhythm with no murmurs. S1, S2. ABDOMEN: Soft, nontender, normal bowel sound MUSCULOSKELETAL EXAM: Status post right BKA NEUROLOGICAL: MENTAL STATUS: Awake and alert. Oriented to person, place, time and general circumstances. SPEECH, LANGUAGE, HIGHER CORTICAL FUNCTION: no aphasia or dysathria. CRANIAL NERVES: #2: Intact visual magana to confrontation. The optic discs were sharp. #3,4,6: Pupils are equal, round and reactive. EOMs full and conjugate. #5: Facial sensation intact in all three divisions bilaterally. Mandibular strength intact. #7: Facial muscles symmetrical and strength intact. #8: Hearing grossly normal to voice. #9,10: Uvula and soft palate rise in the midline. Swallow and voice are normal. #11: Trapezius and sternomastoid strength intact bilaterally. #12: Tongue midline. No fasciculations or atrophy. SENSATION: Light touch perceived as tingling in the left upper and lower extremities MOTOR: Normal tone in the upper and lower extremity. Normal muscle bulk. No fasciculations. No abnormal movements or posturing. Muscle strength of the major groups in the upper extremities is 5/5. Muscle strength of the major groups in the left extremities is: Upper extremity: 4/5, lower extremity: 2-3/5, REFLEXES: Deep tendon reflexes are symmetrical. No pathological reflexes. CEREBELLAR/COORDINATION: Finger to nose is normal in the right hand GAIT/STATION: deferred. Labs/Diagnostic Data Labs Test 02/20/25 07:38 02/20/25 06:00 02/19/25 17:27 02/19/25 15:25 Range/Units POC Glucose 96 70-106 mg/dl White Blood Count 21.9 H 4.4-10.8 10^3/uL Red Blood Count 3.89 L 4.0-5.20 10^6/uL Hemoglobin 10.9 L 12.2-16.2 g/dL Hematocrit 32.4 #L 36.0-46.0 % Mean Corpuscular Volume 83.1 80.0-100.0 fL Mean Corpuscular Hemoglobin 27.9 L 28.0-32.0 pg Mean Corpuscular Hemoglobin Concent 33.6 32.0-36.0 g/dL Red Cell Distribution Width 15.7 H 11.8-14.3 % Platelet Count 398 140-450 10^3/uL Mean Platelet Volume 9.1 6.9-10.8 fL Neutrophils (%) (Auto) 37.0-80.0 % Lymphocytes (%) (Auto) 10.0-50.0 % Monocytes (%) (Auto) 0.0-12.0 % Basophils (%) (Auto) 0.0-2.0 % Neutrophils # (Auto) 1.6-8.6 10 ^3/uL Lymphocytes # (Auto) 0.4-5.4 10 ^3/uL Monocytes # (Auto) 0-1.3 10 ^3/uL Differential Total Cells Counted 100.0 100 Neutrophils % (Manual) 81 H 37.0-80.0 Band Neutrophils % (Manual) 11 Lymphocytes % (Manual) 7 L 10.0-50.0 Monocytes % (Manual) 1 0-12 Eosinophils % (Manual) 0 0-7 Basophils % (Manual) 0 0.0-2.0 Metamyelocytes % (manual) 0 Myelocytes % (Manual) 0 Promyelocytes % (Manual) 0 Blast Cells % (Manual) 0 Reactive Lymphocytes 0 Platelet Estimate Adequate Sodium Level 141 136-145 mmol/L Potassium Level 2.1 *L 3.5-5.1 mmol/L Chloride Level 110 H 98-107 mmol/L Carbon Dioxide Level 17 L 20-31 mmol/L Anion Gap 14 5-15 Blood Urea Nitrogen 33 H 9-23 mg/dL Creatinine 2.03 H 0.550-1.02 mg/dL Glomerular Filtration Rate Calc 29 >90 mL/min BUN/Creatinine Ratio 16.3 10.0-20.0 Serum Glucose 98 74-106 mg/dL Calcium Level 8.0 L 8.7-10.4 mg/dL Total Bilirubin < 0.2 L 0.2-1.0 mg/dL Aspartate Amino Transferase (AST) 29 13-40 U/L Alanine Aminotransferase (ALT) 30 7-40 U/L Alkaline Phosphatase 140 H 46-116 U/L Total Protein 5.0 L 5.7-8.2 g/dL Albumin 2.7 L 3.2-4.8 g/dL Random Vancomycin Level 12.4 H 5-10 ug/mL Urine Color Colorless Yellow Urine Clarity Clear Clear Urine pH 6.5 5.0-9.0 Urine Specific Steger 1.008 1.001-1.035 Urine Protein 2+ H Negative Urine Ketones 1+ H Negative Urine Blood 1+ H Negative /uL Urine Nitrite Negative Negative Urine Bilirubin Negative Negative Urine Urobilinogen Normal Negative mg/dL Urine Leukocyte Esterase Negative Negative /uL Urine RBC 6 0 - 4 /hpf Urine Microscopic WBC 2 0-5 /HPF Urine Squamous Epithelial Cells Few <5 /hpf Urine Bacteria None seen None Seen /hpf Urine Glucose 2+ H Normal mg/dL Urine Opiates Screen Neg NEGATIVE Urine Fentanyl Screen Neg NEGATIVE Urine Barbiturates Screen Neg NEGATIVE Urine Phencyclidine Screen Neg NEGATIVE Urine Amphetamines Screen Neg NEGATIVE Urine Benzodiazepines Screen Neg NEGATIVE Urine Cocaine Screen Neg NEGATIVE Urine Cannabinoids Screen Pos NEGATIVE Troponin I High Sensitivity 25 </=34 ng/L Test 02/19/25 13:14 02/19/25 11:30 Range/Units Lactic Acid Level 0.9 0.4-2.0 mmol/L Beta-Hydroxybutyric Acid 1.216 H < 0.4 mmol/L Plasma/Serum Blood Alcohol < 3.0 <10 mg/dL Assessment General weakness Multiple acute/subacute strokes Status post right BKA Plan/Recommendation Monitoring Supportive treatment Telemetry MAGALIS Carotid Doppler Aspirin 81 mg daily Lipitor 40 mg daily Lopid 600 mg daily Quit tobacco smoking completely Up to chair Physical therapy I have discussed with her about stroke, and stroke risk fact More recommendation per clinical course Plan discussed with: Patient, Other NEELA RUEDA MD Feb 20, 2025 09:15
[2025-02-20] MEDS: PIOGLITAZONE HYDROCHLORIDE 30 MG TAB PO SCH (09:52)
[2025-02-20] MEDS: DULoxetine HCL 30 MG CAP PO SCH (09:52)
[2025-02-20] MEDS: lamoTRIgine 25 MG TAB PO SCH (09:53)
[2025-02-20] MEDS: hydrOXYzine 25 MG TAB or CAP PO SCH (09:53)
[2025-02-20] MEDS ORDERED: ATORVASTATIN 20 MG TAB PO SCH (10:00)
[2025-02-20] MEDS ORDERED: POTASSIUM CHLORIDE 80 MEQ, LIDOCAINE 1% (LOCAL ANESTH.) 6 ML in SODIUM CHL 0.9% 500 ML IV ONE (10:30)
--- NOTE | 2025-02-20 10:32 | DVHPN2 ---
Subjective Continue to complain of left-sided weakness Reviewed: Care Plan, H&P, Labs, Medications, Previous Orders, Radiology, Other (Consultations) Changes from previous H/P or p: No Changes Objective Vitals Vital Signs Date Time Temp Pulse Resp B/P (MAP) Pulse Ox O2 Delivery O2 Flow Rate FiO2 02/20/25 08:00 77 02/20/25 07:35 15 99 Room Air* 0 21 02/20/25 07:35 98.2 145/75 (98) 98.2 Intake/Output Intake and Output 02/20/25 07:00 Intake Total 3050 ml Output Total 500 ml Balance 2550 ml Intake IV Total 3050 ml Output Urine Total 500 ml General Appearance: Alert, Oriented X3, Cooperative, No acute distress HEENT: Atraumatic Lungs: Clear to auscultation, Normal air movement Cardiovascular: Regular rate, Normal S1, Normal S2 Abdomen: Normal bowel sounds, Soft, No tenderness Extremities: Other (Right BKA; swollen/tender/red left upper extremity; swollen/tender/red left knee; multiple unstageable ulcers over left foot) Neuro: Normal speech, Other (Strength 3/5 in the left upper and lower extremity) Psych/Mental Status: Mental status NL, Mood NL Medications Current Medications Medications Dose Ordered Sig/John Route Start Time Stop Time Status Last Admin Dose Admin Ondansetron HCl 4 mg Q4HP PRN IV 02/19/25 13:45 02/19/25 15:37 4 MG Docusate Sodium 100 mg BIDPRN PRN PO 02/19/25 13:45 Acetaminophen 650 mg Q6HP PRN PO 02/19/25 13:45 02/19/25 21:37 650 MG Nitroglycerin 0.4 mg Q5MINP PRN SL 02/19/25 13:45 Morphine Sulfate 2 mg Q30M PRN IV 02/19/25 13:45 02/19/25 15:37 2 MG Pioglitazone HCl 30 mg DAILY PO 02/20/25 10:00 02/20/25 09:52 30 MG Tramadol HCl 50 mg Q6HR PO 02/19/25 18:00 02/20/25 06:00 50 MG Diagnostic Test (Pha) 1 strip ACHS 02/19/25 17:00 02/19/25 22:15 1 STRIP Insulin Human Regular HS SC 02/19/25 22:00 Dextrose 50 ml UD PRN IV 02/19/25 15:45 Duloxetine HCl 30 mg DAILY PO 02/20/25 10:00 02/20/25 09:52 30 MG Gemfibrozil 600 mg BIDAC PO 02/19/25 17:00 02/19/25 17:15 600 MG Hydroxyzine Pamoate 25 mg DAILY PO 02/20/25 10:00 02/20/25 09:53 25 MG Lamotrigine 25 mg DAILY PO 02/20/25 10:00 02/20/25 09:53 25 MG Ceftriaxone Sodium 50 ml @ 100 mls/hr Q24H IV 02/19/25 17:00 02/19/25 17:15 100 MLS/HR Vancomycin HCl 0 ml @ 0 mls/hr UD IV 02/19/25 16:15 Potassium Chloride 100 ml @ 50 mls/hr Q2H IV 02/19/25 23:15 02/20/25 05:14 Cancel Melatonin 10 mg HS PO 02/20/25 22:00 Potassium Chloride 100 ml @ 50 mls/hr Q2H IV 02/20/25 07:15 02/20/25 11:14 UNV Atorvastatin Calcium 40 mg HS PO 02/20/25 22:00 Potassium Chloride 50 ml @ 25 mls/hr Q2H IV 02/20/25 08:15 02/20/25 12:14 02/20/25 10:06 25 MLS/HR Aspirin 81 mg DAILY PO 02/21/25 10:00 Laboratory Results Laboratory Tests 02/20/25 06:00 Chemistry Test 02/19/25 11:30 02/19/25 15:25 02/19/25 21:06 02/20/25 06:00 Calcium Level 8.3 mg/dL (8.7-10.4) L 7.8 mg/dL (8.7-10.4) L 7.8 mg/dL (8.7-10.4) L 8.0 mg/dL (8.7-10.4) L Albumin 3.0 g/dL (3.2-4.8) L 2.7 g/dL (3.2-4.8) L Total Protein 5.4 g/dL (5.7-8.2) L 5.0 g/dL (5.7-8.2) L Magnesium Level Pending LFT Test 02/19/25 15:25 02/20/25 06:00 Alanine Aminotransferase (ALT) 33 U/L (7-40) 30 U/L (7-40) Alkaline Phosphatase 134 U/L (46-116) H 140 U/L (46-116) H Aspartate Amino Transferase (AST) 34 U/L (13-40) 29 U/L (13-40) Total Bilirubin < 0.2 mg/dL (0.2-1.0) L < 0.2 mg/dL (0.2-1.0) L Urinalysis Test 02/19/25 17:27 Urine Color Colorless (Yellow) Urine Clarity Clear (Clear) Urine pH 6.5 (5.0-9.0) Urine Specific [place] 1.008 (1.001-1.035) Urine Protein 2+ (Negative) H Urine Ketones 1+ (Negative) H Urine Blood 1+ /uL (Negative) H Urine Nitrite Negative (Negative) Urine Bilirubin Negative (Negative) Urine Urobilinogen Normal mg/dL (Negative) Urine Leukocyte Esterase Negative /uL (Negative) Urine RBC 6 /hpf (0 - 4) Urine Microscopic WBC 2 /HPF (0-5) Urine Squamous Epithelial Cells Few /hpf (<5) Urine Bacteria None seen /hpf (None Seen) Urine Glucose 2+ mg/dL (Normal) H Labs and/or images reviewed: Labs reviewed by me, Image(s) reviewed by me Assessment/Plan Assessment/Plan A 54-year-old female patient; with multiple comorbidities; presented to emergency department with left-sided weakness. #Left-sided weakness due to multiple acute/subacute strokes; started on aspirin; continue statin and gemfibrozil; cardiology consulted for MAGALIS to rule out cardioembolic source; also ordered HIV to rule out immunodeficiency status; telemetry; fall precautions; physical therapy consulted also web content & social media manager consulted for discharge planning; neurology is following; reviewed carotid duplex arterial ultrasound that showed no significant stenosis; reviewed head CT and brain MRI; continue close monitoring #Sepsis with fever and leukocytosis due to left upper extremity cellulitis; blood and urine cultures pending; continue IV antibiotics; continue close monitoring #Severe hypokalemia; unclear etiology; nephrology consulted by cardiology; to replace as indicated; ordered magnesium level that came back within normal limit of 2.1; telemetry; continue close monitoring #Metabolic acidosis but no lactic acidosis; ordered ABGs; nephrology consulted by cardiology; continue close monitoring #TATIANNA; most likely vasomotor nephropathy in the setting of sepsis; avoid nephrotoxic agents; nephrology consulted by cardiology; continue monitoring #Newly diagnosed essential hypertension; continue antihypertensive medications and adjust according to blood pressure readings; neurology and cardiology is following; continue monitoring #Uncontrolled insulin-dependent diabetes mellitus type 2 with hyperglycemia; hemoglobin A1c of 9.9; continue long-acting insulin and adjust dose based on blood glucose reading; continue insulin sliding scale with hypoglycemia protocol; continue monitoring #PAD status post right BKA; continue gemfibrozil and statin; started on aspirin; continue monitoring #Mixed dyslipidemia; reviewed lipid profile; continue gemfibrozil and statin; continue monitoring #Left knee swelling/redness/pain; CT showed moderate atherosclerosis, [id number] diffuse soft tissue edema, small joint effusion, Palacios's cyst; continue pain management as indicated; on IV antibiotics; continue monitoring #Left upper extremity cellulitis with superficial venous thrombus in the left cephalic vein; continue IV antibiotics; to apply warm compresses; reviewed Doppler ultrasound that showed no DVT; continue monitoring #Multiple left foot diabetic unstageable ulcers; consulted wound care; consulted Podiatry; ordered x-rays; on IV antibiotics; continue monitoring #Polysubstance use disorder; smokes tobacco and marijuana; counseled on tobacco and marijuana use cessation for 22 minutes; on tobacco use cessation separately for 15 minutes; reviewed the drug screen and alcohol level; continue monitoring #Diabetic neuropathy; continue lamotrigine and duloxetine; continue pain management as indicated; continue monitoring Goals of care discussed with the patient for 20 minutes; full code 99 minutes of critical care time Late Entry. This medical document was created using an electronic medical record system with computerized dictation system. Although this document has been carefully reviewed, there might still be some phonetic and typographical errors. These areas are purely typographical due to imperfections of the software programs, and do not reflect any compromise in the patient's medical care. Plan discussed with: Patient, Other (Nurse) My Orders Orders - JOLYNN HAAS MD Procedure Category Date Status Time Aspirin Tablet PHA 02/21/25 In Process 10:00 * Cardiology Consult CONS 02/20/25 Transmitted 10:22 Magnesium LAB 02/20/25 In Process 10:25 Urine Bacterial LANCE 02/20/25 Uncollected Culture 10:25 Potassium Effervesent PHA 02/20/25 In Process Tab (Klor-Con/Ef) 10:30 Potassium Chloride PHA 02/20/25 Logged (Potassium Chloride). 10:30 Complete Blood Count LAB 02/21/25 Verified 04:00 Comprehensive LAB 02/21/25 Verified Metabolic Panel 04:00 Magnesium LAB 02/21/25 Verified 04:00 Abg W/ Co-Ox RT 02/20/25 Transmitted 10:30 Date of Service: Feb 20, 2025 Billing Provider: JOLYNN HAAS MD Common Visit Codes: 80989-[id number] CARE 30-74 MIN (99 minutes), 16257-VUVCITGW CARE-EACH +30MIN Secondary Visit Codes: 53440-[id number] CHNG SMOKING >10MIN (Counseled on tobacco and marijuana use cessation for 22 minutes; on tobacco use cessation separately for 15 minutes), 06948-[id number] CARE PLAN 30 MINUTES (20 minutes) JOLYNN HAAS MD Feb 20, 2025 10:32
[2025-02-20] MEDS: POTASSIUM EFFERVESENT TAB 25 MEQ PO ONE ×2 (11:00→11:42)
[2025-02-20] MEDS: VANCOMYCIN 1GM/200ML PM 250 ML IV ONE ×2 (11:29→11:44)
[2025-02-20 11:34] LABS: Base Excess -9.8 mmol/L (-2.0-3.0)
[2025-02-20] MEDS: ASPirin 81 mg TAB PO ONE (11:41)
[2025-02-20 12:30] VITALS: BP 160/90; PULSE 80; RESP 20; TEMP 98.3; O2SAT 97
--- NOTE | 2025-02-20 12:39 | DVH ---
CLINICAL INDICATION: Pain TECHNIQUE: 3 radiographic views of the left foot were obtained. Comparison: XY R FOOT 3 VIEW XRAY on DOS: 06/03/24 FINDINGS/IMPRESSION: There is no evidence of acute fracture or dislocation. The visualized joint space is well maintained. The alignment is anatomical. There is no radiopaque foreign body.
--- NOTE | 2025-02-20 12:53 | DVHINCON2 ---
Date Seen: Feb 20, 2025 Referring Physician MD Nando Reason for Consultation MAGALIS History of Present Illness This is a 64-year-old female who presented to the emergency room with a chief complaint of left-sided weakness. The patient presented with complaints of left-sided weakness associated with mild dysarthria. She underwent a brain MRI revealing multiple small foci of acute to subacute infarct in the right coronary radiata and right basal ganglia. Cardiology consulted to rule out cardioembolic source. bus monitor reviewed without evidence of tachyarrhythmias. A 12 lead electrocardiogram revealing normal sinus rhythm. Serial troponin levels are negative. Significant medical history includes insulin-dependent diabetes mellitus, dyslipidemia, GERD, anxiety, depression, status post right BKA, and tobacco/cannabinoid use. Past Medical History Past medical history reviewed. No other significant than mentioned above. Past Surgical History Right BKA, 08/16/2024 at [facility] Family History: Cancer Aunt Family history: Diabetes mellitus Grandfather Family History Family history reviewed. Social History Admits to cannabinoid and tobacco use. Denies use of alcohol. Allergies: Coded Allergies: NO KNOWN ALLERGIES (Unverified , 01/27/21) Home Meds Active Scripts Buspirone Hcl (Buspirone Hcl) 5 Mg Tab, 1 TAB PO BID, #60 TAB 2 Refills Prov:DOMENICA SHAH MD 04/14/24 Pantoprazole Sodium Sesquihydr (Protonix) 40 Mg Tab, 40 MG PO DAILY for 30 Days, #30 TAB Prov:LEONARDO JACKSON MD 04/11/22 Olanzapine (OLANZAPINE) 5 Mg Tab, 5 MG PO DAILY for 30 Days, #30 TAB Prov:JOAQUIN ISAAC MD 05/09/20 Reported Medications Duloxetine HCl (Duloxetine HCl) 30 Mg Cap, 1 CAP PO DAILY 02/19/25 Atorvastatin Calcium (ATORVASTATIN CALCIUM) 40 Mg Tab, 1 TAB PO DAILY 02/19/25 Gemfibrozil (Gemfibrozil) 600 Mg Tab, 1 TAB PO BIDWM 02/19/25 Lamotrigine (Lamotrigine) 25 Mg Tab, 1 TAB PO DAILY 02/19/25 Hydroxyzine Hcl (Hydroxyzine Hcl) 25 Mg Tab, 1 TAB PO DAILY 02/19/25 Empagliflozin (Jardiance) 10 Mg Tab, 1 TAB PO DAILY 06/05/24 Ondansetron HCl (Ondansetron) 4 Mg Tab, 1 TAB PO BID PRN 06/05/24 Pioglitazone Hydrochloride (ACTOS TABLET) 30 Mg Tb, 1 TAB PO DAILY 06/05/24 Insulin Lispro (Insulin Lispro Kwikpen) 100 Unit/Ml Inj, UNITS SC 06/05/24 Insulin Glargine (Basaglar Kwikpen) 100 Unit/Ml Inj, UNITS SC 06/05/24 Tramadol Hcl (Tramadol Hcl) 50 Mg Tab, 1 TAB PO Q6HR 04/06/22 Discontinued Scripts Duloxetine Hcl (Cymbalta) 60 Mg Cap, 1 CAP PO DAILY, #30 CAP 2 Refills Prov:DOMENICA SHAH MD 04/14/24 Atorvastatin Calcium (Lipitor) 10 Mg Tab, 1 TAB PO DAILY, #30 TAB Prov:LEONARDO JACKSON MD 04/11/22 Home Meds Home medications reviewed. Current Medications Current Medications Medications (Trade) Dose Ordered Sig/John Route PRN Reason Start Time Stop Time Status Last Admin Potassium Chloride 50 ml @ 25 mls/hr Q2H IV 02/19/25 13:00 02/19/25 19:03 DC 02/19/25 19:04 Sodium Chloride 100 ml @ 50 mls/hr Q2H IV 02/19/25 13:00 02/20/25 10:29 DC 02/19/25 23:50 Acetaminophen/ Hydrocodone Bitart ([place] 5/325MG Tab) 1 tab Q4HP PRN PO MODERATE PAIN (4-6 PAIN SCALE) 02/19/25 13:45 02/19/25 15:44 DC Ondansetron HCl (Zofran) 4 mg Q4HP PRN IV NAUSEA / VOMITING 02/19/25 13:45 02/19/25 15:37 Docusate Sodium (Colace Capsule) 100 mg BIDPRN PRN PO FOR CONSTIPATION 02/19/25 13:45 Acetaminophen (Tylenol Tablet) 650 mg Q6HP PRN PO PAIN SCALE 1-3 OR TEMP>100.4 02/19/25 13:45 02/19/25 21:37 Nitroglycerin (Ntrostat Sublingual) 0.4 mg Q5MINP PRN SL FOR CHEST PAIN 02/19/25 13:45 Morphine Sulfate 2 mg Q30M PRN IV FOR CHEST PAIN 02/19/25 13:45 02/19/25 15:37 Pioglitazone HCl (Actos Tablet) 30 mg DAILY PO 02/20/25 10:00 02/20/25 09:52 Tramadol HCl (Ultram) 50 mg Q6HR PO 02/19/25 18:00 02/20/25 06:00 Diagnostic Test (Pha) (Accu-Chek Comfort Curve T) 1 strip ACHS 02/19/25 17:00 02/20/25 11:35 Insulin Human Regular (InsuLIN R) HS SC 02/19/25 22:00 Insulin Human Regular (InsuLIN R) AC SC 02/19/25 17:00 02/20/25 10:31 DC 02/19/25 17:24 Dextrose 50 ml UD PRN IV Blood Sugar LESS THAN 60 02/19/25 15:45 Duloxetine HCl (Cymbalta Capsule) 30 mg DAILY PO 02/20/25 10:00 02/20/25 09:52 Gemfibrozil (Lopid Tablet) 600 mg BIDAC PO 02/19/25 17:00 02/19/25 17:15 Atorvastatin Calcium (Lipitor) 40 mg DAILY PO 02/20/25 10:00 02/20/25 07:28 DC Hydroxyzine Pamoate (Vistaril Oral) 25 mg DAILY PO 02/20/25 10:00 02/20/25 09:53 Lamotrigine (LaMICtal TABLET) 25 mg DAILY PO 02/20/25 10:00 02/20/25 09:53 Ceftriaxone Sodium 50 ml @ 100 mls/hr Q24H IV 02/19/25 17:00 02/19/25 17:15 Vancomycin HCl 0 ml @ 0 mls/hr UD IV 02/19/25 16:15 Melatonin (Melatonin) 10 mg HS PO 02/20/25 22:00 02/19/25 23:03 DC Potassium Chloride 100 ml @ 50 mls/hr Q2H IV 02/19/25 22:15 02/19/25 23:02 DC Potassium Chloride 100 ml @ 50 mls/hr Q2H IV 02/19/25 23:15 02/20/25 05:14 Cancel Melatonin (Melatonin) 10 mg HS PO 02/20/25 22:00 Potassium Chloride 50 ml @ 50 mls/hr Q2H IV 02/19/25 23:30 02/20/25 00:01 DC Potassium Chloride 100 ml @ 50 mls/hr Q2H IV 02/20/25 00:00 02/19/25 23:58 DC Potassium Chloride 50 ml @ 25 mls/hr Q2H IV 02/19/25 23:45 02/20/25 00:05 DC Potassium Chloride 50 ml @ 25 mls/hr Q2H IV 02/20/25 00:15 02/20/25 06:14 DC 02/20/25 04:24 Potassium Chloride 100 ml @ 50 mls/hr Q2H IV 02/20/25 07:15 02/20/25 11:14 UNV Atorvastatin Calcium (Lipitor) 40 mg HS PO 02/20/25 22:00 Potassium Chloride 50 ml @ 25 mls/hr Q2H IV 02/20/25 08:15 02/20/25 12:14 DC 02/20/25 10:06 Aspirin 81 mg DAILY PO 02/21/25 10:00 Review of Systems Constitutional: No symptom reported Ears, Nose, & Throat: No symptom reported Eyes: No symptom reported Neurological: Left-sided hemiparesis, dysarthria Pulmonary/Respiratory: No symptom reported Cardiovascular: No symptom reported Gastrointestinal: No symptom reported Genitourinary: No symptom reported Musculoskeletal: No symptom reported Skin: No symptom reported Psychiatric: No symptom reported Endocrine: No symptom reported Hemotologic/Lymphatic: No symptom reported Vital Signs Vital Signs Date Time Temp Pulse Resp B/P (MAP) Pulse Ox O2 Delivery O2 Flow Rate FiO2 02/20/25 12:00 98.3 80 16 158/85 (109) 99 98.3 02/20/25 07:35 Room Air* 0 21 Physical Exam General Appearance: Cooperative. Disheveled. In no acute distress Head Exam: Normal inspection Neck Exam: Normal inspection. Non-tender. Normal alignment Pulmonary/Respiratory: Chest non-tender. Clear bilateral breath sounds Cardiovascular/Chest: Regular rate and rhythm. S1, S2. NSR. No murmurs. No JVD. Peripheral Pulses: 2+ Radial (R). 2+ Radial (L). 2+ Pedal (L) Abdominal Exam: Normal bowel sounds. Soft. Nontender. No hepatospenomegaly. No masses Ankle Exam: Negative ankle edema Lower extremities: Negative lower extremity edema Neuro/Mental Status: A&O x4. Coherent Thoughts/Psych: Normal thought pattern. Appropriate mood and affect. Good judgement and insight Appearance: In no acute distress Skin Exam: Wounds present to left foot, scabs Labs/Diagnostic Data Labs Test 02/20/25 11:35 02/20/25 11:00 02/20/25 06:00 02/19/25 17:27 Range/Units POC Glucose 199 H 70-106 mg/dl Blood Gas Specimen Type Arterial Blood Gas Sample Site Right radial Blood Gas Patient Temperature 37.0 Arterial Blood Date Drawn [id number] Arterial Blood pH 7.314 L 7.350-7.450 Arterial Blood Partial Pressure CO2 30.6 L 32.0-45.0 mmHg Arterial Blood Partial Pressure O2 78.4 L 83.0-108.0 mmHg Arterial Blood HCO3 15.2 L 21.0-28.0 mmol/L Arterial Blood Oxygen Saturation 93.9 L 94.0-98.0 % Arterial Blood Base Excess -9.8 L -2.0-3.0 mmol/L Arterial Blood Oxyhemoglobin 93.0 L 94.0-98.0 % Arterial Blood Carboxyhemoglobin 0.7 0.5-1.5 % Arterial Blood Methemoglobin 0.3 0.0-1.5 % Fermin Test Yes Blood Gas Total Hemoglobin 11.40 L 12.0-16.0 g/dL Blood Gas Modality Room air FiO2 % 21.0 White Blood Count 21.9 H 4.4-10.8 10^3/uL Red Blood Count 3.89 L 4.0-5.20 10^6/uL Hemoglobin 10.9 L 12.2-16.2 g/dL Hematocrit 32.4 #L 36.0-46.0 % Mean Corpuscular Volume 83.1 80.0-100.0 fL Mean Corpuscular Hemoglobin 27.9 L 28.0-32.0 pg Mean Corpuscular Hemoglobin Concent 33.6 32.0-36.0 g/dL Red Cell Distribution Width 15.7 H 11.8-14.3 % Platelet Count 398 140-450 10^3/uL Mean Platelet Volume 9.1 6.9-10.8 fL Neutrophils (%) (Auto) 37.0-80.0 % Lymphocytes (%) (Auto) 10.0-50.0 % Monocytes (%) (Auto) 0.0-12.0 % Basophils (%) (Auto) 0.0-2.0 % Neutrophils # (Auto) 1.6-8.6 10 ^3/uL Lymphocytes # (Auto) 0.4-5.4 10 ^3/uL Monocytes # (Auto) 0-1.3 10 ^3/uL Differential Total Cells Counted 100.0 100 Neutrophils % (Manual) 81 H 37.0-80.0 Band Neutrophils % (Manual) 11 Lymphocytes % (Manual) 7 L 10.0-50.0 Monocytes % (Manual) 1 0-12 Eosinophils % (Manual) 0 0-7 Basophils % (Manual) 0 0.0-2.0 Metamyelocytes % (manual) 0 Myelocytes % (Manual) 0 Promyelocytes % (Manual) 0 Blast Cells % (Manual) 0 Reactive Lymphocytes 0 Platelet Estimate Adequate Sodium Level 141 136-145 mmol/L Potassium Level 2.1 *L 3.5-5.1 mmol/L Chloride Level 110 H 98-107 mmol/L Carbon Dioxide Level 17 L 20-31 mmol/L Anion Gap 14 5-15 Blood Urea Nitrogen 33 H 9-23 mg/dL Creatinine 2.03 H 0.550-1.02 mg/dL Glomerular Filtration Rate Calc 29 >90 mL/min BUN/Creatinine Ratio 16.3 10.0-20.0 Serum Glucose 98 74-106 mg/dL Hemoglobin A1c 9.9 H <5.7 % A1C Calcium Level 8.0 L 8.7-10.4 mg/dL Magnesium Level 2.1 1.6-2.6 mg/dL Total Bilirubin < 0.2 L 0.2-1.0 mg/dL Aspartate Amino Transferase (AST) 29 13-40 U/L Alanine Aminotransferase (ALT) 30 7-40 U/L Alkaline Phosphatase 140 H 46-116 U/L Total Protein 5.0 L 5.7-8.2 g/dL Albumin 2.7 L 3.2-4.8 g/dL Beta-Hydroxybutyric Acid 0.922 H < 0.4 mmol/L Random Vancomycin Level 12.4 H 5-10 ug/mL Urine Color Colorless Yellow Urine Clarity Clear Clear Urine pH 6.5 5.0-9.0 Urine Specific [place] 1.008 1.001-1.035 Urine Protein 2+ H Negative Urine Ketones 1+ H Negative Urine Blood 1+ H Negative /uL Urine Nitrite Negative Negative Urine Bilirubin Negative Negative Urine Urobilinogen Normal Negative mg/dL Urine Leukocyte Esterase Negative Negative /uL Urine RBC 6 0 - 4 /hpf Urine Microscopic WBC 2 0-5 /HPF Urine Squamous Epithelial Cells Few <5 /hpf Urine Bacteria None seen None Seen /hpf Urine Glucose 2+ H Normal mg/dL Urine Opiates Screen Neg NEGATIVE Urine Fentanyl Screen Neg NEGATIVE Urine Barbiturates Screen Neg NEGATIVE Urine Phencyclidine Screen Neg NEGATIVE Urine Amphetamines Screen Neg NEGATIVE Urine Benzodiazepines Screen Neg NEGATIVE Urine Cocaine Screen Neg NEGATIVE Urine Cannabinoids Screen Pos NEGATIVE Test 02/19/25 15:25 02/19/25 13:14 02/19/25 11:30 Range/Units Troponin I High Sensitivity 25 </=34 ng/L Lactic Acid Level 0.9 0.4-2.0 mmol/L Plasma/Serum Blood Alcohol < 3.0 <10 mg/dL Assessment Multiple acute/subacute strokes rule out cardioembolic source Severe hypokalemia Acute kidney injury Hypertension, newly diagnosed Insulin-dependent diabetes mellitus, HgbA1C 9.9% Status post right BKA Dyslipidemia Cannabinoid/tobacco use Plan/Recommendation (Dr. Zhong) Scheduled for a transesophageal echocardiogram to rule out cardioembolic source. In the setting of an unremarkable MAGALIS, the patient is advised to undergo an event monitor as outpatient to rule out tachyarrhythmias. In the meantime, continue neurological recommendations. Obtain nephrology consultation. Repeat potassium level. Replete electrolytes as necessary. Initiate blood pressure control, avoid nephrotoxic agents. Monitor ECG changes and notify. Thank you for allowing us to participate in this patient's care. Please call if you have any questions or concerns. This medical document was created using an electronic medical record system with voice recognition software and computerized dictation system. Although this document has been carefully reviewed, there might still be some phonetic and typographical errors. Occasional wrong-word or ``sound-alike substitutions may have occurred due to the inherent limitations of voice recognition software. These areas are purely typographical due to imperfections of the software programs and do not reflect any compromise in the patient's medical care. Please read the chart carefully and recognize, using context, where these substitutions have occurred. Plan discussed with: Patient, Other NYHA Physical activity limitations: NA Date of Service: Feb 20, 2025 Billing Provider: DENTON BASURTO MANAGEMENT TECHNICIAN Cardiology Common Codes: 72721-[id number] INP/OBS CARE (High) DENTON BASURTO [facility] Feb 20, 2025 12:53
[2025-02-20 12:56] LABS: Cholesterol 304 mg/dL (< 200); HDL Cholesterol 38 mg/dL (40-59); LDL Cholesterol 207 mg/dL (< 100); Triglycerides 186 mg/dL (< 150)
[2025-02-20 14:01] VITALS: BP 160/90; PULSE 80; RESP 20; TEMP 98.3; O2SAT 97
--- NOTE | 2025-02-20 14:02 | DVH ---
EXAM: US LT UPPER DVT Clinical History: SWELLING Comparison: EDWAREXT on DOS: 04/07/22 Technique: Duplex Doppler evaluation of the deep venous systems of the left upper extremity from the internal ju gular to the ulnar vein including color Doppler and spectral/pulsed waveform analysis was performed. Findings: Normal compressibility and color Doppler flow is seen in the left upper extremity veins including the internal jugular, subclavian, axillary, brachial, radial and ulnar veins. Superficial venous thrombus in the left cephalic vein. Impression: 1. No sonographic evidence for left upper extremity DVT. 2. Superficial venous thrombus in the left cephalic vein.
--- NOTE | 2025-02-20 14:31 | DVH ---
Carotid Duplex Date: 02/20/2025 01:36 PM Clinical History: Stroke Comparison: None Technique: Duplex Doppler evaluation of the extracranial carotid and vertebral arteries including color Doppler and spectral/pulsed waveform analysis was performed. Findings: velocities and ratios within normal limits. IMPRESSION: No hemodynamically significant stenosis noted in the right carotid system. No hemodynamically significant stenosis noted in the left carotid system. Reference: Radiology 2003; [id number]
[2025-02-20 16:49] VITALS: BP 152/89; PULSE 72; RESP 18; TEMP 98.2; O2SAT 99
[2025-02-20] MEDS: POTASSIUM CHL 20 Meq TABLET PO ONE (16:59)
[2025-02-20] MEDS: NIFEdipine ER 30 MG TAB PO ONE (17:01)
[2025-02-20 20:00] VITALS: RESP 18
[2025-02-20] MEDS: ATORVASTATIN 20 MG TAB PO SCH (21:30)
[2025-02-20] MEDS: MELATONIN 5 MG TAB PO SCH (21:30)
[2025-02-20] MEDS ORDERED: MELATONIN 5 MG TAB PO SCH (22:00)
[2025-02-21] VITALS (13 sets, daily range): BP systolic 99–149; BP diastolic 62–88; PULSE 75–92; RESP 12–20; TEMP 97.4–98.1; O2SAT 91–98
--- NOTE | 2025-02-21 05:11 | DVHPN2 ---
Subjective Continue to complain of left-sided weakness Reviewed: Care Plan, H&P, Labs, Medications, Previous Orders, Radiology, Other (Consultations) Changes from previous H/P or p: No Changes Objective Vitals Vital Signs Date Time Temp Pulse Resp B/P (MAP) Pulse Ox O2 Delivery O2 Flow Rate FiO2 02/21/25 01:00 97.9 84 18 130/71 (90) 96 97.9 02/20/25 20:00 Room Air* 0 21 Intake/Output Intake and Output 02/21/25 07:00 Intake Total 800 ml Output Total 500 ml Balance 300 ml Intake Oral 700 ml IV Total 100 ml Output Urine Total 500 ml General Appearance: Alert, Oriented X3, Cooperative, No acute distress HEENT: Atraumatic Lungs: Clear to auscultation, Normal air movement Cardiovascular: Regular rate, Normal S1, Normal S2 Abdomen: Normal bowel sounds, Soft, No tenderness Extremities: Other (Right BKA; swollen/tender/red left upper extremity; swollen/tender/red left knee; multiple unstageable ulcers over left foot) Neuro: Normal speech, Other (Strength 3/5 in the left upper and lower extremity) Psych/Mental Status: Mental status NL, Mood NL Medications Current Medications Medications Dose Ordered Sig/John Route Start Time Stop Time Status Last Admin Dose Admin Ondansetron HCl 4 mg Q4HP PRN IV 02/19/25 13:45 02/21/25 04:53 4 MG Docusate Sodium 100 mg BIDPRN PRN PO 02/19/25 13:45 Acetaminophen 650 mg Q6HP PRN PO 02/19/25 13:45 02/19/25 21:37 650 MG Nitroglycerin 0.4 mg Q5MINP PRN SL 02/19/25 13:45 Morphine Sulfate 2 mg Q30M PRN IV 02/19/25 13:45 02/19/25 15:37 2 MG Tramadol HCl 50 mg Q6HR PO 02/19/25 18:00 02/20/25 13:37 50 MG Diagnostic Test (Pha) 1 strip ACHS 02/19/25 17:00 02/20/25 17:00 1 STRIP Insulin Human Regular HS SC 02/19/25 22:00 Dextrose 50 ml UD PRN IV 02/19/25 15:45 Duloxetine HCl 30 mg DAILY PO 02/20/25 10:00 02/20/25 09:52 30 MG Gemfibrozil 600 mg BIDAC PO 02/19/25 17:00 02/20/25 16:59 600 MG Hydroxyzine Pamoate 25 mg DAILY PO 02/20/25 10:00 02/20/25 09:53 25 MG Lamotrigine 25 mg DAILY PO 02/20/25 10:00 02/20/25 09:53 25 MG Ceftriaxone Sodium 50 ml @ 100 mls/hr Q24H IV 02/19/25 17:00 02/20/25 17:01 100 MLS/HR Vancomycin HCl 0 ml @ 0 mls/hr UD IV 02/19/25 16:15 Potassium Chloride 100 ml @ 50 mls/hr Q2H IV 02/19/25 23:15 02/20/25 05:14 Cancel Melatonin 10 mg HS PO 02/20/25 22:00 02/20/25 21:30 10 MG Potassium Chloride 100 ml @ 50 mls/hr Q2H IV 02/20/25 07:15 02/20/25 11:14 UNV Atorvastatin Calcium 40 mg HS PO 02/20/25 22:00 02/20/25 21:30 40 MG Aspirin 81 mg DAILY PO 02/21/25 10:00 Nifedipine 30 mg DAILY PO 02/21/25 10:00 Laboratory Results Laboratory Tests 02/20/25 06:00 02/20/25 13:30 Chemistry Test 02/20/25 06:00 Albumin 2.7 g/dL (3.2-4.8) L Calcium Level 8.0 mg/dL (8.7-10.4) L Magnesium Level 2.1 mg/dL (1.6-2.6) Total Protein 5.0 g/dL (5.7-8.2) L Lipid panel Test 02/20/25 06:00 Cholesterol Level 304 mg/dL (< 200) H HDL Cholesterol 38 mg/dL (40-59) L Triglycerides Level 186 mg/dL (< 150) H LFT Test 02/20/25 06:00 Alanine Aminotransferase (ALT) 30 U/L (7-40) Alkaline Phosphatase 140 U/L (46-116) H Aspartate Amino Transferase (AST) 29 U/L (13-40) Total Bilirubin < 0.2 mg/dL (0.2-1.0) L HgA1c, TSH Test 02/20/25 06:00 Hemoglobin A1c 9.9 % A1C (<5.7) H Urinalysis Test 02/19/25 17:27 Urine Color Colorless (Yellow) Urine Clarity Clear (Clear) Urine pH 6.5 (5.0-9.0) Urine Specific Priddy 1.008 (1.001-1.035) Urine Protein 2+ (Negative) H Urine Ketones 1+ (Negative) H Urine Blood 1+ /uL (Negative) H Urine Nitrite Negative (Negative) Urine Bilirubin Negative (Negative) Urine Urobilinogen Normal mg/dL (Negative) Urine Leukocyte Esterase Negative /uL (Negative) Urine RBC 6 /hpf (0 - 4) Urine Microscopic WBC 2 /HPF (0-5) Urine Squamous Epithelial Cells Few /hpf (<5) Urine Bacteria None seen /hpf (None Seen) Urine Glucose 2+ mg/dL (Normal) H Blood Gas Results Test 02/20/25 11:00 Arterial Blood pH 7.314 (7.350-7.450) FiO2 % 21.0 Microbiology Microbiology Date/Time Source Procedure Growth Status 02/19/25 13:14 Blood Blood Culture - Preliminary NO GROWTH AFTER 24 HOURS OF INCUBATION. Resulted Labs and/or images reviewed: Labs reviewed by me, Image(s) reviewed by me Assessment/Plan Assessment/Plan A 54-year-old female patient; with multiple comorbidities; presented to emergency department with left-sided weakness. #Left-sided weakness due to multiple acute/subacute strokes; started on aspirin; continue statin and gemfibrozil; cardiology consulted for MAGALIS to rule out cardioembolic source; MAGALIS planned for today; also ordered HIV to rule out immunodeficiency status but patient declined; telemetry; fall precautions; physical therapy consulted also social work program coordinator consulted for discharge planning; neurology is following; reviewed carotid duplex arterial ultrasound that showed no significant stenosis; reviewed head CT and brain MRI; continue monitoring #Sepsis with fever and leukocytosis due to left upper extremity cellulitis; blood and urine cultures pending; continue IV antibiotics; continue monitoring #Severe hypokalemia; unclear etiology; nephrology consulted by cardiology; to replace as indicated; ordered magnesium level that came back within normal limit of 2.1; telemetry; continue monitoring #Metabolic acidosis but no lactic acidosis; ordered ABGs; nephrology is following; continue monitoring #TATIANNA; most likely vasomotor nephropathy in the setting of sepsis; avoid nephrotoxic agents; nephrology is following; monitoring #Newly diagnosed essential hypertension; continue antihypertensive medications and adjust according to blood pressure readings; neurology and cardiology is following; continue monitoring #Uncontrolled insulin-dependent diabetes mellitus type 2 with hyperglycemia; hemoglobin A1c of 9.9%; continue long-acting insulin and adjust dose based on blood glucose reading; continue insulin sliding scale with hypoglycemia protocol; continue monitoring #PAD status post right BKA; continue gemfibrozil and statin; started on aspirin; continue monitoring #Mixed dyslipidemia; reviewed lipid profile; continue gemfibrozil and statin; continue monitoring #Left knee swelling/redness/pain; CT showed moderate atherosclerosis, [id number] diffuse soft tissue edema, small joint effusion, Palacios's cyst; continue pain management as indicated; on IV antibiotics; continue monitoring #Left upper extremity cellulitis with superficial venous thrombus in the left cephalic vein; continue IV antibiotics; to apply warm compresses; reviewed Doppler ultrasound that showed no DVT; continue monitoring #Multiple left foot diabetic unstageable ulcers; consulted wound care; consulted Podiatry; ordered x-rays; on IV antibiotics; continue monitoring #Polysubstance use disorder; smokes tobacco and marijuana; counseled on tobacco and marijuana use cessation; reviewed the drug screen and alcohol level; continue monitoring #Diabetic neuropathy; continue lamotrigine and duloxetine; continue pain management as indicated; continue monitoring This medical document was created using an electronic medical record system with computerized dictation system. Although this document has been carefully reviewed, there might still be some phonetic and typographical errors. These areas are purely typographical due to imperfections of the software programs, and do not reflect any compromise in the patient's medical care. Plan discussed with: Patient, Other (Nurse) My Orders Orders - JOLYNN HAAS MD Procedure Category Date Status Time Aspirin Tablet PHA 02/21/25 In Process 10:00 * Cardiology Consult CONS 02/20/25 Transmitted 10:22 Urine Bacterial LANCE 02/20/25 In Process Culture 10:36 Complete Blood Count LAB 02/21/25 Logged 04:00 Comprehensive LAB 02/21/25 Logged Metabolic Panel 04:00 Magnesium LAB 02/21/25 Logged 04:00 Abg W/ Co-Ox RT 02/20/25 Logged 10:30 * Wound Consult CONS 02/20/25 Transmitted L Foot 3 View Xray XY 02/20/25 Resulted 10:53 *Podiatry Consult CONS 02/20/25 Transmitted Gulshan([facility]) 10:53 Warm Compresses ORDERS 02/20/25 Transmitted 16:01 Date of Service: Feb 21, 2025 Billing Provider: JOLYNN HAAS MD Common Visit Codes: [id number] INP/OBS CARE(HIGH) JOLYNN HAAS MD Feb 21, 2025 05:11
[2025-02-21 06:52] LABS: Alanine Aminotransferase 25 U/L (7-40); Anion Gap 11 (5-15); Aspartate Aminotransferase 21 U/L (13-40); BUN/Creatinine Ratio 16.2 (10.0-20.0); Magnesium 2.2 mg/dL (1.6-2.6); Sodium 140 mmol/L (136-145)
[2025-02-21 06:53] LABS: Albumin 2.8 g/dL (3.2-4.8); Alkaline Phosphatase 173 U/L (46-116); Blood Urea Nitrogen 32 mg/dL (9-23); Calcium 8.5 mg/dL (8.7-10.4); Carbon Dioxide 19 mmol/L (20-31); Chloride 110 mmol/L (98-107); Glucose 177 mg/dL (74-106); Total Protein 5.1 g/dL (5.7-8.2)
[2025-02-21 06:54] LABS: Potassium 2.5 mmol/L (3.5-5.1)
[2025-02-21 06:56] LABS: Bilirubin, Total < 0.2 mg/dL (0.2-1.0)
[2025-02-21 07:01] LABS: Basophils # (auto) 0 10 ^3/uL (0-0.2); Basophils % (auto) 0.2 % (0.0-2.0); Eosinophils # (auto) 0.1 10 ^3/uL (0-0.8); Eosinophils % (auto) 0.5 % (0.0-7.0); Hematocrit 31.9 % (36.0-46.0); Hemoglobin 10.6 g/dL (12.2-16.2); Lymphocytes % (auto) 6.1 % (10.0-50.0); Mean Corpuscular Hemoglobin 27.8 pg (28.0-32.0); Mean Corpuscular Hgb Conc. 33.2 g/dL (32.0-36.0); Mean Corpuscular Volume 83.9 fL (80.0-100.0); Monocytes # (auto) 0.4 10 ^3/uL (0-1.3); Monocytes % (auto) 2.8 % (0.0-12.0); Neutrophils # (auto) 14.5 10 ^3/uL (1.6-8.6); Neutrophils % (auto) 90.4 % (37.0-80.0); Platelet Count (auto) 400 10^3/uL (140-450); White Blood Cell 16.1 10^3/uL (4.4-10.8)
[2025-02-21] MEDS: SODIUM CHL 0.9% 100 ML IV SCH (08:45)
[2025-02-21] MEDS: POTASSIUM CHL 20MEQ/50ML 50 ML IV SCH (09:23)
[2025-02-21] MEDS: NIFEdipine ER 30 MG TAB PO SCH (10:00)
[2025-02-21] MEDS: LIDOCAINE VISCOUS 2% 15ML UD PO ONE (11:15)
[2025-02-21] MEDS: fentaNYL CITRATE 100 MCG/2 ML VL IV ONE (11:15)
[2025-02-21] MEDS: MIDAZOLAM HCL 2MG/2ML 2ml VIAL (1mg/ml) IV ONE (11:15)
--- NOTE | 2025-02-21 12:24 | DVHPN2 ---
Progress Note - Dictate Date Seen: Feb 21, 2025 Medical Necessity Reason Pt with a Central, PICC or Fol: No Subjective Mr. Kaur is a 54 years old right-handed female with a history of hypertension, diabetes, dyslipidemia, anxiety, GERD, osteo myelitis status post right BKA, she came to the [facility] on 02/19/25 with a chief complaint of general weakness. I have seen and examined the patient, I have talked to her nurse, she was doing fine, no new complaints, but not see obvious improvement in the leg weakness UDS, 02/19/2025: Cannabinoids Plasma alcohol, 02/19/2025: Three Urinalysis, 02/19, : WBC: 2, urine leukocyte esterase WBC/HB/PLT/MCV, 02/20/2025: 21.9/10.9/398/83.1 K, 02/19/2025: 1.7, 02/20/2025: 2.1 BUN/CR, 02/20/2025: 33/2.03 HGB A1c, 06/03/2024: 13.1 Liver function tests, 02/20/2025: Unremarkable TG/HDL/LDL/HDL, 04/11/2024: 180/238/164/43 MAGALIS, 02/21/2025: 1. Technically good study. Sinus rhythm. 2. Left atrial enlargement. 3. Number Valves appear to be structurally normal. 4. Ventricular systolic function is preserved at 60% with normal RV function. 5. Doppler reveals mild TR. No significant mitral or aortic insufficiency. No atrial septal or ventricular septal defects 6. No masses or vegetations discernible. 7. The atrial appendage looks clean, no masses. No atrial or ventricular septal defects as noted. No abnormal shunting. Bubble study was negative 8. The valves appear to be structurally normal. No vegetations or signs of emboli present. Carotid Doppler, 02/20/2025: No hemodynamically significant stenosis noted in the right carotid system. No hemodynamically significant stenosis noted in the left carotid system. CT head, : Small age-indeterminate infarct extending from the right jorge radiata into the right basal ganglia. Further evaluation with MRI brain with diffusion-weighted imaging is recommended. MRI head, 02/19/2025: 1. There are multiple small foci of acute to subacute infarct in the right jorge radiata and right basal ganglia. There are also multiple small acute to subacute infarcts in the left anteromedial frontal lobe and in the left jorge radiata and left basal ganglia. There is no evidence of acute hemorrhage. vital signs Vital Sign Date Time Temp Pulse Resp B/P (MAP) Pulse Ox O2 Delivery O2 Flow Rate FiO2 02/21/25 09:00 97.7 87 15 117/62 (80) 91 97.7 02/21/25 07:59 Room Air* 0 21 Total Intake and Output 02/20/25 02/20/25 02/21/25 15:00 23:00 07:00 Intake Total 50 ml 750 ml 100 ml Output Total 500 ml 650 ml Balance 50 ml 250 ml -550 ml medications Current Medications Medications Dose Ordered Sig/John Route Start Time Stop Time Status Last Admin Dose Admin Ondansetron HCl 4 mg Q4HP PRN IV 02/19/25 13:45 02/21/25 04:53 4 MG Docusate Sodium 100 mg BIDPRN PRN PO 02/19/25 13:45 Acetaminophen 650 mg Q6HP PRN PO 02/19/25 13:45 02/19/25 21:37 650 MG Nitroglycerin 0.4 mg Q5MINP PRN SL 02/19/25 13:45 Morphine Sulfate 2 mg Q30M PRN IV 02/19/25 13:45 02/19/25 15:37 2 MG Tramadol HCl 50 mg Q6HR PO 02/19/25 18:00 02/20/25 13:37 50 MG Diagnostic Test (Pha) 1 strip ACHS 02/19/25 17:00 02/20/25 17:00 1 STRIP Insulin Human Regular HS SC 02/19/25 22:00 Dextrose 50 ml UD PRN IV 02/19/25 15:45 Duloxetine HCl 30 mg DAILY PO 02/20/25 10:00 02/20/25 09:52 30 MG Gemfibrozil 600 mg BIDAC PO 02/19/25 17:00 02/20/25 16:59 600 MG Hydroxyzine Pamoate 25 mg DAILY PO 02/20/25 10:00 02/20/25 09:53 25 MG Lamotrigine 25 mg DAILY PO 02/20/25 10:00 02/20/25 09:53 25 MG Ceftriaxone Sodium 50 ml @ 100 mls/hr Q24H IV 02/19/25 17:00 02/20/25 17:01 100 MLS/HR Vancomycin HCl 0 ml @ 0 mls/hr UD IV 02/19/25 16:15 Potassium Chloride 100 ml @ 50 mls/hr Q2H IV 02/19/25 23:15 02/20/25 05:14 Cancel Melatonin 10 mg HS PO 02/20/25 22:00 02/20/25 21:30 10 MG Potassium Chloride 100 ml @ 50 mls/hr Q2H IV 02/20/25 07:15 02/20/25 11:14 UNV Atorvastatin Calcium 40 mg HS PO 02/20/25 22:00 02/20/25 21:30 40 MG Aspirin 81 mg DAILY PO 02/21/25 10:00 Nifedipine 30 mg DAILY PO 02/21/25 10:00 Potassium Chloride 50 ml @ 25 mls/hr Q2H IV 02/21/25 08:45 02/21/25 12:44 02/21/25 10:45 25 MLS/HR Sodium Chloride 100 ml @ 50 mls/hr Q2H IV 02/21/25 08:45 02/21/25 12:44 02/21/25 10:45 50 MLS/HR objective General: the patient is well developed and nourished. No acute distress. MUSCULOSKELETAL EXAM: Status post right BKA MENTAL STATUS: Awake and alert. Oriented to person, place, time and general circumstances. SPEECH, LANGUAGE, HIGHER CORTICAL FUNCTION: no aphasia or dysathria. CRANIAL NERVES: Pupils are equal, round and reactive. EOMs full and conjugate. Facial sensation intact in all three divisions bilaterally. Mandibular strength intact. Facial muscles symmetrical and strength intact. SENSATION: Light touch perceived as tingling in the left upper and lower extremities MOTOR: Normal tone in the upper and lower extremity. Normal muscle bulk. No fasciculations. No abnormal movements or posturing. Muscle strength of the major groups in the upper extremities is 5/5. Muscle strength of the major groups in the left extremities is: Upper extremity: 4/5, lower extremity: 2-3/5, REFLEXES: Deep tendon reflexes are symmetrical. No pathological reflexes. CEREBELLAR/COORDINATION: Finger to nose is normal in the right hand GAIT/STATION: deferred. laboratory and microbiology Laboratory Tests 02/21/25 04:46 Test 02/21/25 04:46 Range/Units Serum Glucose 177 H 74-106 mg/dL Problem List General weakness Multiple acute/subacute strokes Status post right BKA Assessment/Plan Monitoring Supportive treatment Telemetry Aspirin 81 mg daily Lipitor 40 mg daily (was 10 mg q.d. according reconciled medication list) Lopid 600 mg daily Quit tobacco smoking completely Up to chair Physical therapy I have discussed with her about stroke, and stroke risk fact More recommendation per clinical course This medical document was created using an electronic medical record system with [employer] dictation system. Although this document has been carefully reviewed, there may still be some phonetic and typographical errors. These areas are purely typographical due to imperfections of the software programs, and do not reflect any compromise in the patient's medical care. Prognosis poor Plan discussed with: Patient, Other NEELA RUEDA MD Feb 21, 2025 12:24
[2025-02-21] MEDS: VANCOMYCIN 1.5GM/300ML 300 ML IV ONE (13:30)
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
--- NOTE | 2025-02-21 14:04 | DVHOP2 ---
Operative Report Procedure performed: Transesophageal echocardiogram. Indication: CVA. No complications Preoperative diagnosis CVA. Postoperative diagnosis is normal transesophageal echocardiogram. Conscious sedation given throughout the process. I personally in the conscious sedation monitor the patient throughout the procedure. Procedure: Prior full informed consent obtained. Patient was prepped and draped in usual fashion paced and left lateral and semi-Coughlin position the patient at passes of transesophageal probe without difficulty. Standard views obtained. Conclusions 1. Technically good study. Sinus rhythm. 2. Left atrial enlargement. 3. Number Valves appear to be structurally normal. 4. Ventricular systolic function is preserved at 60% with normal RV function. 5. Doppler reveals mild TR. No significant mitral or aortic insufficiency. No atrial septal or ventricular septal defects 6. No masses or vegetations discernible. 7. The atrial appendage looks clean, no masses. No atrial or ventricular septal defects as noted. No abnormal shunting. Bubble study was negative 8. The valves appear to be structurally normal. No vegetations or signs of emboli present. ALEX BECKMAN Sr., MD Feb 21, 2025 14:04
--- NOTE | 2025-02-21 14:05 | DVHPN2 ---
Date of Service: Feb 21, 2025 Billing Provider: ALEX BECKMAN Sr., MD Cardiology Common Codes: PROCEDURE ONLY Cardiology Procedure Codes: 15746-AWN W/IMG DOC INCL PROB ACQ (Transesophageal echocardiogram) ALEX BECKMAN Sr., MD Feb 21, 2025 14:05
--- NOTE | 2025-02-21 14:45 | DVHOP2 ---
Operative Report - 2 Report Details Date: 02/21/25 Preop Diagnosis: CAD Postop Diagnosis: Three-vessel coronary artery disease. Cardiomyopathy. Surgeon: Alex Henry MD Anesthesiologist: Conscious sedation Anesthesia: Mac, Local Consent: The patient was informed of the risks and benefits of the procedure. These include but are not limited to complications of anesthesia, postoperative infection, incomplete relief of symptoms, recurrence of symptoms, damage to blood vessels, nerves and tendons, deep venous thrombosis, pulmonary embolism and possible need for repeat surgery in the future. Complications: No complications Estimated Blood Loss: 5 cc Findings: Triple-vessel disease. Cardiomyopathy. Indications for Surgery: Chest pain Name of Procedure Performed Left heart catheterization bilateral cine coronary angiography. Left ventriculography. Procedure Details Procedure Details: Local anesthesia 2% lidocaine to the right wrist full informed consent obtained patient was prepped and draped in usual fashion followed by an attempted placement of a catheter into radial artery. Because of the limited blood return we encouraged to take an angiographic evaluation of the radial artery. There was a very small radial artery at the forearm. The ulnar artery seems to be the dominant vessel. We placed a op site dressing over the radial catheter for ultrasound and fluoroscopic guidance we gained access into femoral artery and placed a six [place] sheath through which diagnostic Douglas catheters were then used to cannulate both arm and left coronary ostia and a pigtail catheter was used for ventriculography. Hemodynamics: Aortic blood pressure was 110/70. End-diastolic pressure was 14. There was no gradient across the aortic valve on pullback. Coronary anatomy: The RCA is occluded proximally. There are intracoronary co llaterals to the mid RCA. There was a very large distal RCA and posterolateral branches as well as PDA. Left main is large and normal. Distal % stenosis. The LAD is a large vessel it has a 95% stenosis at its mid section. Diagonals are free of significant disease. The circumflex is large. It is nondominant however it gives off a large marginal branch that is occluded proximally. Has faint collateralization it supplies the lateral wall inferiorly. Ventriculography in the [place] projection revealed an EF of about 35% with global hypokinesis especially of the mid inferior wall. Impression: Decreased left ventricular ejection fraction. Desiree left ventricular end-diastolic pressure was. Triple-vessel coronary artery disease. Recommendations we will refer to coronary bypass surgery. Condition Guarded Disposition Still a Patient Date of Service: Feb 21, 2025 Billing Provider: ALEX HENRY Sr., MD Cardiology Common Codes: PROCEDURE ONLY Cardiology Procedure Codes: 75009-AOZCXS VESSEL W/I VASC FAM, 14480-FHVN ADD CORONARY BRANCH, 00324-VNHS ADD COR ART/BRNCH/GRFT, 37577-YPOL HEART CATH W/INTRA INJ ALEX HENRY Sr., MD Feb 21, 2025 14:45
--- NOTE | 2025-02-21 15:50 | DVHINCON2 ---
Date of service: Feb 21, 2025 Referring Physician Hospitalist Reason for Consultation Acute kidney injury History of Present Illness 54-year-old female past medical history of depression and anxiety, hypertension, diabetes, acid reflux, peripheral artery disease status post right BKA in July of 2024. Presents to the hospital complaining of sudden onset left leg swelling and pain. She reports that this developed over the course of 24 hours she denies any fevers chills. Denies any injections around the site. Nephrology consulted due to elevated creatinine level. Previous records showed renal function at baseline is normal Allergies: Coded Allergies: NO KNOWN ALLERGIES (Unverified , 01/27/21) Home Meds Active Scripts Buspirone Hcl (Buspirone Hcl) 5 Mg Tab, 1 TAB PO BID, #60 TAB 2 Refills Prov:DOMENICA SHAH MD 04/14/24 Pantoprazole Sodium Sesquihydr (Protonix) 40 Mg Tab, 40 MG PO DAILY for 30 Days, #30 TAB Prov:LEONARDO JACKSON MD 04/11/22 Olanzapine (OLANZAPINE) 5 Mg Tab, 5 MG PO DAILY for 30 Days, #30 TAB Prov:JOAQUIN ISAAC MD 05/09/20 Reported Medications Duloxetine HCl (Duloxetine HCl) 30 Mg Cap, 1 CAP PO DAILY 02/19/25 Atorvastatin Calcium (ATORVASTATIN CALCIUM) 40 Mg Tab, 1 TAB PO DAILY 02/19/25 Gemfibrozil (Gemfibrozil) 600 Mg Tab, 1 TAB PO BIDWM 02/19/25 Lamotrigine (Lamotrigine) 25 Mg Tab, 1 TAB PO DAILY 02/19/25 Hydroxyzine Hcl (Hydroxyzine Hcl) 25 Mg Tab, 1 TAB PO DAILY 02/19/25 Empagliflozin (Jardiance) 10 Mg Tab, 1 TAB PO DAILY 06/05/24 Ondansetron HCl (Ondansetron) 4 Mg Tab, 1 TAB PO BID PRN 06/05/24 Pioglitazone Hydrochloride (ACTOS TABLET) 30 Mg Tb, 1 TAB PO DAILY 06/05/24 Insulin Lispro (Insulin Lispro Kwikpen) 100 Unit/Ml Inj, UNITS SC 06/05/24 Insulin Glargine (Basaglar Kwikpen) 100 Unit/Ml Inj, UNITS SC 06/05/24 Tramadol Hcl (Tramadol Hcl) 50 Mg Tab, 1 TAB PO Q6HR 04/06/22 Discontinued Scripts Duloxetine Hcl (Cymbalta) 60 Mg Cap, 1 CAP PO DAILY, #30 CAP 2 Refills Prov:DOMENICA SHAH MD 04/14/24 Atorvastatin Calcium (Lipitor) 10 Mg Tab, 1 TAB PO DAILY, #30 TAB Prov:LEONARDO JACKSON MD 04/11/22 Current Medications Current Medications Medications (Trade) Dose Ordered Sig/John Route PRN Reason Start Time Stop Time Status Last Admin Melatonin (Melatonin) 10 mg HS PO 02/20/25 22:00 02/19/25 23:03 DC Melatonin (Melatonin) 10 mg HS PO 02/20/25 22:00 02/20/25 21:30 Atorvastatin Calcium (Lipitor) 40 mg HS PO 02/20/25 22:00 02/20/25 21:30 Aspirin 81 mg DAILY PO 02/21/25 10:00 Nifedipine (Procardia Xl (Time-Release)) 30 mg DAILY PO 02/21/25 10:00 Potassium Chloride 50 ml @ 25 mls/hr Q2H IV 02/21/25 08:45 02/21/25 12:44 DC 02/21/25 10:45 Sodium Chloride 100 ml @ 50 mls/hr Q2H IV 02/21/25 08:45 02/21/25 12:44 DC 02/21/25 10:45 Lactated Ringer's 1,000 ml @ 75 mls/hr [id number] IV 02/21/25 15:45 UNV Family History: Cancer Aunt Family history: Diabetes mellitus Grandfather Review of Systems Left knee swelling H&P Exam Vital Signs/I&O Vital Sign Date Time Temp Pulse Resp B/P (MAP) Pulse Ox O2 Delivery O2 Flow Rate FiO2 02/21/25 14:35 75 14 101/66 (78) 92 02/21/25 09:00 97.7 97.7 02/21/25 07:59 Room Air* 0 21 Intake and Output 02/20/25 02/21/25 19:00 07:00 Intake Total 800 ml 100 ml Output Total 500 ml 650 ml Balance 300 ml -550 ml Intake Oral 700 ml 100 ml IV Total 100 ml Output Urine Total 500 ml 650 ml Physical Exam Middle-aged female appears older than stated age Nonacute distress No pitting edema Regular rate and rhythm Abdomen is soft Right BKA Left knee swelling with mild erythema Labs/Diagnostic Data Labs/Diagnostic Data Laboratory Tests Test 02/21/25 04:46 02/20/25 13:30 02/20/25 11:35 02/20/25 11:00 Range/Units White Blood Count 16.1 #H 4.4-10.8 10^3/uL Red Blood Count 3.80 L 4.0-5.20 10^6/uL Hemoglobin 10.6 L 12.2-16.2 g/dL Hematocrit 31.9 L 36.0-46.0 % Mean Corpuscular Volume 83.9 80.0-100.0 fL Mean Corpuscular Hemoglobin 27.8 L 28.0-32.0 pg Mean Corpuscular Hemoglobin Concent 33.2 32.0-36.0 g/dL Red Cell Distribution Width 16.0 H 11.8-14.3 % Platelet Count 400 140-450 10^3/uL Mean Platelet Volume 9.0 6.9-10.8 fL Neutrophils (%) (Auto) 90.4 H 37.0-80.0 % Lymphocytes (%) (Auto) 6.1 L 10.0-50.0 % Monocytes (%) (Auto) 2.8 0.0-12.0 % Eosinophils (%) (Auto) 0.5 0.0-7.0 % Basophils (%) (Auto) 0.2 0.0-2.0 % Neutrophils # (Auto) 14.5 H 1.6-8.6 10 ^3/uL Lymphocytes # (Auto) 1.0 0.4-5.4 10 ^3/uL Monocytes # (Auto) 0.4 0-1.3 10 ^3/uL Eosinophils # (Auto) 0.1 0-0.8 10 ^3/uL Basophils # (Auto) 0 0-0.2 10 ^3/uL Nucleated Red Blood Cells 0.0 % Sodium Level 140 136-145 mmol/L Potassium Level 2.5 *L 3.2 L 3.5-5.1 mmol/L Chloride Level 110 H 98-107 mmol/L Carbon Dioxide Level 19 L 20-31 mmol/L Anion Gap 11 5-15 Blood Urea Nitrogen 32 H 9-23 mg/dL Creatinine 1.97 H 0.550-1.02 mg/dL Glomerular Filtration Rate Calc 30 >90 mL/min BUN/Creatinine Ratio 16.2 10.0-20.0 Serum Glucose 177 H 74-106 mg/dL Calcium Level 8.5 L 8.7-10.4 mg/dL Magnesium Level 2.2 1.6-2.6 mg/dL Total Bilirubin < 0.2 L 0.2-1.0 mg/dL Aspartate Amino Transferase (AST) 21 13-40 U/L Alanine Aminotransferase (ALT) 25 7-40 U/L Alkaline Phosphatase 173 H 46-116 U/L Total Protein 5.1 L 5.7-8.2 g/dL Albumin 2.8 L 3.2-4.8 g/dL Random Vancomycin Level 9.7 5-10 ug/mL POC Glucose 199 H 70-106 mg/dl Blood Gas Specimen Type Arterial Blood Gas Sample Site Right radial Blood Gas Patient Temperature 37.0 Arterial Blood Date Drawn [id number] Arterial Blood pH 7.314 L 7.350-7.450 Arterial Blood Partial Pressure CO2 30.6 L 32.0-45.0 mmHg Arterial Blood Partial Pressure O2 78.4 L 83.0-108.0 mmHg Arterial Blood HCO3 15.2 L 21.0-28.0 mmol/L Arterial Blood Oxygen Saturation 93.9 L 94.0-98.0 % Arterial Blood Base Excess -9.8 L -2.0-3.0 mmol/L Arterial Blood Oxyhemoglobin 93.0 L 94.0-98.0 % Arterial Blood Carboxyhemoglobin 0.7 0.5-1.5 % Arterial Blood Methemoglobin 0.3 0.0-1.5 % Fermin Test Yes Blood Gas Total Hemoglobin 11.40 L 12.0-16.0 g/dL Blood Gas Modality Room air FiO2 % 21.0 Test 02/20/25 07:38 02/20/25 06:00 02/19/25 22:00 02/19/25 21:31 Range/Units POC Glucose 96 68 L 54 L 70-106 mg/dl White Blood Count 21.9 H 4.4-10.8 10^3/uL Red Blood Count 3.89 L 4.0-5.20 10^6/uL Hemoglobin 10.9 L 12.2-16.2 g/dL Hematocrit 32.4 #L 36.0-46.0 % Mean Corpuscular Volume 83.1 80.0-100.0 fL Mean Corpuscular Hemoglobin 27.9 L 28.0-32.0 pg Mean Corpuscular Hemoglobin Concent 33.6 32.0-36.0 g/dL Red Cell Distribution Width 15.7 H 11.8-14.3 % Platelet Count 398 140-450 10^3/uL Mean Platelet Volume 9.1 6.9-10.8 fL Neutrophils (%) (Auto) 37.0-80.0 % Lymphocytes (%) (Auto) 10.0-50.0 % Monocytes (%) (Auto) 0.0-12.0 % Basophils (%) (Auto) 0.0-2.0 % Neutrophils # (Auto) 1.6-8.6 10 ^3/uL Lymphocytes # (Auto) 0.4-5.4 10 ^3/uL Monocytes # (Auto) 0-1.3 10 ^3/uL Differential Total Cells Counted 100.0 100 Neutrophils % (Manual) 81 H 37.0-80.0 Band Neutrophils % (Manual) 11 Lymphocytes % (Manual) 7 L 10.0-50.0 Monocytes % (Manual) 1 0-12 Eosinophils % (Manual) 0 0-7 Basophils % (Manual) 0 0.0-2.0 Metamyelocytes % (manual) 0 Myelocytes % (Manual) 0 Promyelocytes % (Manual) 0 Blast Cells % (Manual) 0 Reactive Lymphocytes 0 Platelet Estimate Adequate Sodium Level 141 136-145 mmol/L Potassium Level 2.1 *L 3.5-5.1 mmol/L Chloride Level 110 H 98-107 mmol/L Carbon Dioxide Level 17 L 20-31 mmol/L Anion Gap 14 5-15 Blood Urea Nitrogen 33 H 9-23 mg/dL Creatinine 2.03 H 0.550-1.02 mg/dL Glomerular Filtration Rate Calc 29 >90 mL/min BUN/Creatinine Ratio 16.3 10.0-20.0 Serum Glucose 98 74-106 mg/dL Hemoglobin A1c 9.9 H <5.7 % A1C Calcium Level 8.0 L 8.7-10.4 mg/dL Magnesium Level 2.1 1.6-2.6 mg/dL Total Bilirubin < 0.2 L 0.2-1.0 mg/dL Aspartate Amino Transferase (AST) 29 13-40 U/L Alanine Aminotransferase (ALT) 30 7-40 U/L Alkaline Phosphatase 140 H 46-116 U/L Total Protein 5.0 L 5.7-8.2 g/dL Albumin 2.7 L 3.2-4.8 g/dL Triglycerides Level 186 H < 150 mg/dL Cholesterol Level 304 H < 200 mg/dL LDL Cholesterol 207 H < 100 mg/dL HDL Cholesterol 38 L 40-59 mg/dL Beta-Hydroxybutyric Acid 0.922 H < 0.4 mmol/L Random Vancomycin Level 12.4 H 5-10 ug/mL Test 02/19/25 21:06 02/19/25 17:27 02/19/25 17:18 02/19/25 15:25 Range/Units Sodium Level 141 139 136-145 mmol/L Potassium Level 1.7 *L 1.5 *L 3.5-5.1 mmol/L Chloride Level 111 H 108 H 98-107 mmol/L Carbon Dioxide Level 16 L 14 L 20-31 mmol/L Anion Gap 14 17 H 5-15 Blood Urea Nitrogen 33 H 35 H 9-23 mg/dL Creatinine 2.08 H 2.22 H 0.550-1.02 mg/dL Glomerular Filtration Rate Calc 28 >90 mL/min BUN/Creatinine Ratio 15.9 15.8 10.0-20.0 Serum Glucose 68 L 146 H 74-106 mg/dL Calcium Level 7.8 L 7.8 L 8.7-10.4 mg/dL Urine Color Colorless Yellow Urine Clarity Clear Clear Urine pH 6.5 5.0-9.0 Urine Specific [place] 1.008 1.001-1.035 Urine Protein 2+ H Negative Urine Ketones 1+ H Negative Urine Blood 1+ H Negative /uL Urine Nitrite Negative Negative Urine Bilirubin Negative Negative Urine Urobilinogen Normal Negative mg/dL Urine Leukocyte Esterase Negative Negative /uL Urine RBC 6 0 - 4 /hpf Urine Microscopic WBC 2 0-5 /HPF Urine Squamous Epithelial Cells Few <5 /hpf Urine Bacteria None seen None Seen /hpf Urine Glucose 2+ H Normal mg/dL Urine Opiates Screen Neg NEGATIVE Urine Fentanyl Screen Neg NEGATIVE Urine Barbiturates Screen Neg NEGATIVE Urine Phencyclidine Screen Neg NEGATIVE Urine Amphetamines Screen Neg NEGATIVE Urine Benzodiazepines Screen Neg NEGATIVE Urine Cocaine Screen Neg NEGATIVE Urine Cannabinoids Screen Pos NEGATIVE POC Glucose 140 H 70-106 mg/dl Total Bilirubin < 0.2 L 0.2-1.0 mg/dL Aspartate Amino Transferase (AST) 34 13-40 U/L Alanine Aminotransferase (ALT) 33 7-40 U/L Alkaline Phosphatase 134 H 46-116 U/L Troponin I High Sensitivity 25 </=34 ng/L Total Protein 5.4 L 5.7-8.2 g/dL Albumin 3.0 L 3.2-4.8 g/dL Test 02/19/25 13:14 02/19/25 11:45 02/19/25 11:30 02/19/25 11:03 Range/Units Lactic Acid Level 0.9 0.4-2.0 mmol/L Troponin I High Sensitivity 30 32 </=34 ng/L POC Glucose 145 H 137 H 70-106 mg/dl White Blood Count 23.7 H 4.4-10.8 10^3/uL Red Blood Count 4.29 4.0-5.20 10^6/uL Hemoglobin 11.7 L 12.2-16.2 g/dL Hematocrit 36.5 36.0-46.0 % Mean Corpuscular Volume 84.9 80.0-100.0 fL Mean Corpuscular Hemoglobin 27.3 L 28.0-32.0 pg Mean Corpuscular Hemoglobin Concent 32.1 32.0-36.0 g/dL Red Cell Distribution Width 15.7 H 11.8-14.3 % Platelet Count 396 140-450 10^3/uL Mean Platelet Volume 9.0 6.9-10.8 fL Neutrophils (%) (Auto) 37.0-80.0 % Lymphocytes (%) (Auto) 10.0-50.0 % Monocytes (%) (Auto) 0.0-12.0 % Basophils (%) (Auto) 0.0-2.0 % Neutrophils # (Auto) 1.6-8.6 10 ^3/uL Lymphocytes # (Auto) 0.4-5.4 10 ^3/uL Monocytes # (Auto) 0-1.3 10 ^3/uL Differential Total Cells Counted 100.0 100 Neutrophils % (Manual) 82 H 37.0-80.0 Band Neutrophils % (Manual) 8 Lymphocytes % (Manual) 6 L 10.0-50.0 Monocytes % (Manual) 4 0-12 Eosinophils % (Manual) 0 0-7 Basophils % (Manual) 0 0.0-2.0 Metamyelocytes % (manual) 0 Myelocytes % (Manual) 0 Promyelocytes % (Manual) 0 Blast Cells % (Manual) 0 Reactive Lymphocytes 0 Platelet Estimate Adequate Sodium Level 138 136-145 mmol/L Potassium Level 1.5 *L 3.5-5.1 mmol/L Chloride Level 105 98-107 mmol/L Carbon Dioxide Level 17 L 20-31 mmol/L Anion Gap 16 H 5-15 Blood Urea Nitrogen 40 H 9-23 mg/dL Creatinine 2.38 H 0.550-1.02 mg/dL Glomerular Filtration Rate Calc 24 >90 mL/min BUN/Creatinine Ratio 16.8 10.0-20.0 Serum Glucose 146 H 74-106 mg/dL Calcium Level 8.3 L 8.7-10.4 mg/dL Beta-Hydroxybutyric Acid 1.216 H < 0.4 mmol/L Plasma/Serum Blood Alcohol < 3.0 <10 mg/dL Assessment Acute kidney injury likely hemodynamically mediated Left knee swelling inflammatory versus infectious Peripheral vascular disease Diabetes poorly controlled Hypokalemia Start lactated Ringer's at a rate of 75 cc/hour Patient reports that she has a history of kidney disease but is unclear of the etiology I recommend ultrasound of the kidney Urinalysis Potassium replacement Avoid hypotension Obtain a uric acid and sedimentation rate Avoid NSAIDs Rest of care as per primary medical team Plan discussed with: Patient KAMRYN MCCARTHY MD Feb 21, 2025 15:50
--- NOTE | 2025-02-21 16:36 | DVH ---
EXAM: US KIDNEY INDICATION: TATIANNA TECHNIQUE: Multiple real-time sonographic images of the kidneys and bladder were obtained. COMPARISON: None Findings: Right kidney measures 10.6 cm with normal contours, increased echotexture, and normal cortical thickn ess. No evidence of hydronephrosis, calculi, cystic or solid lesions. Left kidney measures 12.5 cm with normal contours, increased echotexture, and normal cortical thickne ss. No evidence of hydronephrosis, calculi, cystic or solid lesions. Urinary bladder is decompressed via Almaraz catheter Impression: 1. Increased echogenicity of bilateral kidneys. Correlate for medical renal disease. 2. The urinary bladder is decompressed via Almaraz catheter.
[2025-02-21 16:54] LABS: Erythrocyte Sedimentation Rate 99 mm/hr (0-20)
[2025-02-21] MEDS: ASPirin 81 mg TAB PO SCH (17:21)
[2025-02-21] MEDS: LACTATED RINGER'S 1,000 ML IV SCH (17:43)
[2025-02-22] VITALS (11 sets, daily range): BP systolic 130–192; BP diastolic 77–104; PULSE 63–96; RESP 1–20; TEMP 97.4–98.4; O2SAT 90–98
--- NOTE | 2025-02-22 06:28 | DVHPN2 ---
Subjective Continue to complain of left-sided weakness Reviewed: Care Plan, H&P, Labs, Medications, Previous Orders, Radiology, Other (Consultations) Changes from previous H/P or p: No Changes Objective Vitals Vital Signs Date Time Temp Pulse Resp B/P (MAP) Pulse Ox O2 Delivery O2 Flow Rate FiO2 02/22/25 05:00 97.9 68 16 159/89 (112) 98 97.9 02/21/25 20:00 Room Air* 0 21 Intake/Output Intake and Output 02/22/25 07:00 Intake Total 800 ml Output Total 2350 ml Balance -1550 ml Intake Oral 300 ml IV Total 500 ml Output Urine Total 2350 ml General Appearance: Alert, Oriented X3, Cooperative, No acute distress HEENT: Atraumatic Lungs: Clear to auscultation, Normal air movement Cardiovascular: Regular rate, Normal S1, Normal S2 Abdomen: Normal bowel sounds, Soft, No tenderness Extremities: Other (Right BKA; decreasing swollen/tender/red left upper extremity; decreasing swollen/tender/red left knee; multiple unstageable ulcers over left foot) Neuro: Normal speech, Other (Strength 3/5 in the left upper and lower extremity) Psych/Mental Status: Mental status NL, Mood NL Medications Current Medications Medications Dose Ordered Sig/John Route Start Time Stop Time Status Last Admin Dose Admin Ondansetron HCl 4 mg Q4HP PRN IV 02/19/25 13:45 02/21/25 04:53 4 MG Docusate Sodium 100 mg BIDPRN PRN PO 02/19/25 13:45 Acetaminophen 650 mg Q6HP PRN PO 02/19/25 13:45 02/19/25 21:37 650 MG Nitroglycerin 0.4 mg Q5MINP PRN SL 02/19/25 13:45 Morphine Sulfate 2 mg Q30M PRN IV 02/19/25 13:45 02/19/25 15:37 2 MG Tramadol HCl 50 mg Q6HR PO 02/19/25 18:00 02/22/25 06:27 50 MG Diagnostic Test (Pha) 1 strip ACHS 02/19/25 17:00 02/22/25 06:27 1 STRIP Insulin Human Regular HS SC 02/19/25 22:00 Dextrose 50 ml UD PRN IV 02/19/25 15:45 Duloxetine HCl 30 mg DAILY PO 02/20/25 10:00 02/21/25 17:22 30 MG Gemfibrozil 600 mg BIDAC PO 02/19/25 17:00 02/21/25 17:22 600 MG Hydroxyzine Pamoate 25 mg DAILY PO 02/20/25 10:00 02/21/25 17:21 25 MG Lamotrigine 25 mg DAILY PO 02/20/25 10:00 02/21/25 17:21 25 MG Ceftriaxone Sodium 50 ml @ 100 mls/hr Q24H IV 02/19/25 17:00 02/21/25 17:21 100 MLS/HR Vancomycin HCl 0 ml @ 0 mls/hr UD IV 02/19/25 16:15 Potassium Chloride 100 ml @ 50 mls/hr Q2H IV 02/19/25 23:15 02/20/25 05:14 Cancel Melatonin 10 mg HS PO 02/20/25 22:00 02/21/25 21:01 10 MG Potassium Chloride 100 ml @ 50 mls/hr Q2H IV 02/20/25 07:15 02/20/25 11:14 UNV Atorvastatin Calcium 40 mg HS PO 02/20/25 22:00 02/21/25 21:01 40 MG Aspirin 81 mg DAILY PO 02/21/25 10:00 02/21/25 17:21 81 MG Nifedipine 30 mg DAILY PO 02/21/25 10:00 Lactated Ringer's 1,000 ml @ 75 mls/hr [id number] IV 02/21/25 15:45 02/21/25 17:43 75 MLS/HR Laboratory Results Chemistry Test 02/22/25 05:54 Calcium Level Pending Urinalysis Test 02/19/25 17:27 Urine Color Colorless (Yellow) Urine Clarity Clear (Clear) Urine pH 6.5 (5.0-9.0) Urine Specific [place] 1.008 (1.001-1.035) Urine Protein 2+ (Negative) H Urine Ketones 1+ (Negative) H Urine Blood 1+ /uL (Negative) H Urine Nitrite Negative (Negative) Urine Bilirubin Negative (Negative) Urine Urobilinogen Normal mg/dL (Negative) Urine Leukocyte Esterase Negative /uL (Negative) Urine RBC 6 /hpf (0 - 4) Urine Microscopic WBC 2 /HPF (0-5) Urine Squamous Epithelial Cells Few /hpf (<5) Urine Bacteria None seen /hpf (None Seen) Urine Glucose 2+ mg/dL (Normal) H Microbiology Microbiology Date/Time Source Procedure Growth Status 02/19/25 17:27 Urine - [facility] [place] Urine Culture - Preliminary Resulted 02/19/25 13:14 Blood Blood Culture - Preliminary NO GROWTH AFTER 48 HOURS OF INCUBATION. Resulted Labs and/or images reviewed: Labs reviewed by me, Image(s) reviewed by me Assessment/Plan Assessment/Plan A 54-year-old female patient; with multiple comorbidities; presented to emergency department with left-sided weakness. #Left-sided weakness due to multiple acute/subacute strokes; continue statin and gemfibrozil with aspirin; cardiology consulted for MAGALIS to rule out cardioembolic source; MAGALIS did not show vegetation or thrombus; also ordered HIV to rule out immunodeficiency status but patient declined; telemetry; fall precautions; physical therapy recommended SNF for rehab so new consult was placed for social staff worker; neurology is following; reviewed carotid duplex arterial ultrasound that showed no significant stenosis; reviewed head CT and brain MRI; continue monitoring #Sepsis with fever and leukocytosis along with elevated ESR due to left upper extremity cellulitis; blood and urine cultures with no growth so far; continue IV antibiotics; continue monitoring #Severe hypokalemia; unclear etiology; nephrology is following; to replace as indicated; normal magnesium level; telemetry; continue monitoring #Metabolic acidosis but no lactic acidosis; ordered ABGs; nephrology is following; continue monitoring #TATIANNA; most likely vasomotor nephropathy in the setting of sepsis; avoid nephrotoxic agents; nephrology is following; monitoring #Newly diagnosed essential hypertension; continue antihypertensive medications and adjust according to blood pressure readings; neurology and cardiology is following; continue monitoring #Uncontrolled insulin-dependent diabetes mellitus type 2 with hyperglycemia; hemoglobin A1c of 9.9%; continue long-acting insulin and adjust dose based on blood glucose reading; continue insulin sliding scale with hypoglycemia protocol; continue monitoring #PAD status post right BKA; continue gemfibrozil and statin with aspirin; continue monitoring #Mixed dyslipidemia; reviewed lipid profile; continue gemfibrozil and statin; continue monitoring #Left knee swelling/redness/pain; CT showed moderate atherosclerosis, [id number] diffuse soft tissue edema, small joint effusion, Palacios's cyst; continue pain management as indicated; on IV antibiotics; continue monitoring #Left upper extremity cellulitis with superficial venous thrombus in the left cephalic vein; continue IV antibiotics; to apply warm compresses; reviewed Dopp ler ultrasound that showed no DVT; continue monitoring #Multiple left foot diabetic unstageable ulcers; consulted wound care; Podiatry is following; ordered x-rays; on IV antibiotics; MRI ordered by Podiatry but not done yet; continue monitoring #Polysubstance use disorder; smokes tobacco and marijuana; counseled on tobacco and marijuana use cessation; reviewed the drug screen and alcohol level; continue monitoring #Diabetic neuropathy; continue lamotrigine and duloxetine; continue pain management as indicated; continue monitoring This medical document was created using an electronic medical record system with computerized dictation system. Although this document has been carefully reviewed, there might still be some phonetic and typographical errors. These areas are purely typographical due to imperfections of the software programs, and do not reflect any compromise in the patient's medical care. Plan discussed with: Patient, Other (Nurse) My Orders Orders - JOLYNN HAAS MD Procedure Category Date Status Time Basic Metabolic Panel LAB 02/22/25 In Process 04:00 Complete Blood Count LAB 02/22/25 In Process 04:00 Date of Service: Feb 22, 2025 Billing Provider: JOLYNN HAAS MD Common Visit Codes: [id number] INP/OBS CARE(HIGH) JOLYNN HAAS MD Feb 22, 2025 06:28
[2025-02-22 06:42] LABS: Basophils # (auto) 0 10 ^3/uL (0-0.2); Basophils % (auto) 0.3 % (0.0-2.0); Eosinophils # (auto) 0.1 10 ^3/uL (0-0.8); Eosinophils % (auto) 1.1 % (0.0-7.0); Hematocrit 32.9 % (36.0-46.0); Hemoglobin 10.9 g/dL (12.2-16.2); Lymphocytes # (auto) 1.4 10 ^3/uL (0.4-5.4); Lymphocytes % (auto) 11.9 % (10.0-50.0); Mean Corpuscular Hemoglobin 27.3 pg (28.0-32.0); Mean Corpuscular Volume 82.7 fL (80.0-100.0); Monocytes # (auto) 0.4 10 ^3/uL (0-1.3); Monocytes % (auto) 3.1 % (0.0-12.0); Neutrophils # (auto) 9.6 10 ^3/uL (1.6-8.6); Neutrophils % (auto) 83.6 % (37.0-80.0); Platelet Count (auto) 446 10^3/uL (140-450); Red Blood Cells 3.98 10^6/uL (4.0-5.20); Red Cell Distribution Width 16.1 % (11.8-14.3); White Blood Cell 11.4 10^3/uL (4.4-10.8)
[2025-02-22 07:02] LABS: Calcium 9.2 mg/dL (8.7-10.4); Sodium 140 mmol/L (136-145)
[2025-02-22 07:03] LABS: Anion Gap 11 (5-15)
[2025-02-22 07:08] LABS: BUN/Creatinine Ratio 15.3 (10.0-20.0)
[2025-02-22 07:16] LABS: Blood Urea Nitrogen 32 mg/dL (9-23); Carbon Dioxide 19 mmol/L (20-31); Chloride 110 mmol/L (98-107); Glucose 173 mg/dL (74-106)
[2025-02-22 07:25] LABS: Potassium 2.3 mmol/L (3.5-5.1)
[2025-02-22] MEDS: POTASSIUM CHL 20 Meq TABLET PO ONE (08:16)
--- NOTE | 2025-02-22 08:27 | DVHPN2 ---
Progress Note Date Seen: Feb 22, 2025 Medical Necessity Reason Pt with a Central, PICC or Fol: Yes The following are medically ne: Almaraz Catheter Subjective Review of Systems: MSK:Abnormal Objective vital signs Vital Sign Date Time Temp Pulse Resp B/P (MAP) Pulse Ox O2 Delivery O2 Flow Rate FiO2 02/22/25 08:18 1 Room Air* 0 21 02/22/25 05:00 97.9 68 159/89 (112) 98 97.9 Total Intake and Output 02/21/25 02/21/25 02/22/25 15:00 23:00 07:00 Intake Total 500 ml 300 ml Output Total 550 ml 1800 ml Balance -50 ml -1500 ml medications Current Medications Medications Dose Ordered Sig/John Route Start Time Stop Time Status Last Admin Dose Admin Ondansetron HCl 4 mg Q4HP PRN IV 02/19/25 13:45 02/22/25 06:32 4 MG Docusate Sodium 100 mg BIDPRN PRN PO 02/19/25 13:45 Acetaminophen 650 mg Q6HP PRN PO 02/19/25 13:45 02/19/25 21:37 650 MG Nitroglycerin 0.4 mg Q5MINP PRN SL 02/19/25 13:45 Morphine Sulfate 2 mg Q30M PRN IV 02/19/25 13:45 02/19/25 15:37 2 MG Tramadol HCl 50 mg Q6HR PO 02/19/25 18:00 02/22/25 06:27 50 MG Diagnostic Test (Pha) 1 strip ACHS 02/19/25 17:00 02/22/25 06:27 1 STRIP Insulin Human Regular HS SC 02/19/25 22:00 Dextrose 50 ml UD PRN IV 02/19/25 15:45 Duloxetine HCl 30 mg DAILY PO 02/20/25 10:00 02/21/25 17:22 30 MG Gemfibrozil 600 mg BIDAC PO 02/19/25 17:00 02/22/25 06:32 600 MG Hydroxyzine Pamoate 25 mg DAILY PO 02/20/25 10:00 02/21/25 17:21 25 MG Lamotrigine 25 mg DAILY PO 02/20/25 10:00 02/21/25 17:21 25 MG Ceftriaxone Sodium 50 ml @ 100 mls/hr Q24H IV 02/19/25 17:00 02/21/25 17:21 100 MLS/HR Vancomycin HCl 0 ml @ 0 mls/hr UD IV 02/19/25 16:15 Potassium Chloride 100 ml @ 50 mls/hr Q2H IV 02/19/25 23:15 02/20/25 05:14 Cancel Melatonin 10 mg HS PO 02/20/25 22:00 02/21/25 21:01 10 MG Potassium Chloride 100 ml @ 50 mls/hr Q2H IV 02/20/25 07:15 02/20/25 11:14 UNV Atorvastatin Calcium 40 mg HS PO 02/20/25 22:00 02/21/25 21:01 40 MG Aspirin 81 mg DAILY PO 02/21/25 10:00 02/21/25 17:21 81 MG Nifedipine 30 mg DAILY PO 02/21/25 10:00 Lactated Ringer's 1,000 ml @ 75 mls/hr [id number] IV 02/21/25 15:45 02/21/25 17:43 75 MLS/HR Examination: GENERAL:Abnormal, MSK:Abnormal laboratory and microbiology Laboratory Tests 02/22/25 05:54 Test 02/22/25 05:54 Range/Units Serum Glucose 173 H 74-106 mg/dL Microbiology Date/Time Source Procedure Growth Status 02/19/25 17:27 Urine - [facility] [place] Urine Culture - Preliminary Resulted 02/19/25 13:14 Blood Blood Culture - Preliminary NO GROWTH AFTER 48 HOURS OF INCUBATION. Resulted Problem List/Assessment/Plan Problem List/Assessment/Plan Acute kidney injury likely hemodynamically mediated Left knee swelling inflammatory versus infectious Peripheral vascular disease , hx BKA Diabetes poorly controlled Hypokalemia lactated Ringer's at a rate of 75 cc/hour Patient reports that she has a history of kidney disease but is unclear of the etiology I recommend ultrasound of the kidney Potassium replacement Avoid hypotension Avoid NSAIDs elevated ESR Rest of care as per primary medical team Plan discussed with: Patient My Orders My Orders Orders - KAMRYN MCCARTHY MD Procedure Category Date Status Time Kidney US 02/21/25 Resulted 15:43 Lactated Ringer's PHA 02/21/25 In Process 15:45 Gloria; Comprehensive LAB 02/23/25 Verified Panel 04:00 Anca Panel LAB 02/23/25 Verified 04:00 Complement C3 & C4 LAB 02/23/25 Verified 04:00 Dietary Evaluation Review Comments: 1) Esau 1 pk BID 2) Refer Sluice Tender on DC 3) Continue current plan of care Expected Outcomes/Goals: Pt will meet >75% estimated needs Fu 3-5 days KAMRYN MCCARTHY MD Feb 22, 2025 08:27
--- NOTE | 2025-02-22 12:04 | DVHPN2 ---
Subjective s/p myles Reviewed: Care Plan, H&P, Labs, Medications, Previous Orders, Radiology, Other (Consultations) Changes from previous H/P or p: No Changes System Changes No syncope No cardiac events reports Objective Vitals Vital Signs Date Time Temp Pulse Resp B/P (MAP) Pulse Ox O2 Delivery O2 Flow Rate FiO2 02/22/25 10:36 174/97 02/22/25 10:29 96 02/22/25 09:00 97.4 20 98 97.4 02/22/25 08:18 Room Air* 0 21 Intake/Output Intake and Output 02/22/25 07:00 Intake Total 800 ml Output Total 2350 ml Balance -1550 ml Intake Oral 300 ml IV Total 500 ml Output Urine Total 2350 ml Exam Denies chest pain Denies cardiac event General Appearance: Alert, Oriented X3, Cooperative, No acute distress HEENT: Atraumatic Lungs: Clear to auscultation, Normal air movement Cardiovascular: Regular rate, Normal S1, Normal S2 Abdomen: Normal bowel sounds, Soft, No tenderness Extremities: Other (Right BKA; decreasing swollen/tender/red left upper extremity; decreasing swollen/tender/red left knee; multiple unstageable ulcers over left foot) Neuro: Normal speech, Other (Strength 3/5 in the left upper and lower extremity) Psych/Mental Status: Mental status NL, Mood NL Medications Current Medications Medications Dose Ordered Sig/John Route Start Time Stop Time Status Last Admin Dose Admin Ondansetron HCl 4 mg Q4HP PRN IV 02/19/25 13:45 02/22/25 06:32 4 MG Docusate Sodium 100 mg BIDPRN PRN PO 02/19/25 13:45 Acetaminophen 650 mg Q6HP PRN PO 02/19/25 13:45 02/19/25 21:37 650 MG Nitroglycerin 0.4 mg Q5MINP PRN SL 02/19/25 13:45 Morphine Sulfate 2 mg Q30M PRN IV 02/19/25 13:45 02/19/25 15:37 2 MG Tramadol HCl 50 mg Q6HR PO 02/19/25 18:00 02/22/25 06:27 50 MG Diagnostic Test (Pha) 1 strip ACHS 02/19/25 17:00 02/22/25 06:27 1 STRIP Insulin Human Regular HS SC 02/19/25 22:00 Dextrose 50 ml UD PRN IV 02/19/25 15:45 Duloxetine HCl 30 mg DAILY PO 02/20/25 10:00 02/22/25 10:36 30 MG Gemfibrozil 600 mg BIDAC PO 02/19/25 17:00 02/22/25 06:32 600 MG Hydroxyzine Pamoate 25 mg DAILY PO 02/20/25 10:00 02/22/25 10:36 25 MG Lamotrigine 25 mg DAILY PO 02/20/25 10:00 02/22/25 10:36 25 MG Ceftriaxone Sodium 50 ml @ 100 mls/hr Q24H IV 02/19/25 17:00 02/21/25 17:21 100 MLS/HR Vancomycin HCl 0 ml @ 0 mls/hr UD IV 02/19/25 16:15 Potassium Chloride 100 ml @ 50 mls/hr Q2H IV 02/19/25 23:15 02/20/25 05:14 Cancel Melatonin 10 mg HS PO 02/20/25 22:00 02/21/25 21:01 10 MG Potassium Chloride 100 ml @ 50 mls/hr Q2H IV 02/20/25 07:15 02/20/25 11:14 UNV Atorvastatin Calcium 40 mg HS PO 02/20/25 22:00 02/21/25 21:01 40 MG Aspirin 81 mg DAILY PO 02/21/25 10:00 02/22/25 10:36 81 MG Nifedipine 30 mg DAILY PO 02/21/25 10:00 02/22/25 10:36 30 MG Lactated Ringer's 1,000 ml @ 75 mls/hr [id number] IV 02/21/25 15:45 02/21/25 17:43 75 MLS/HR Laboratory Results Laboratory Tests 02/22/25 05:54 Chemistry Test 02/22/25 05:54 Calcium Level 9.2 mg/dL (8.7-10.4) Magnesium Level 2.2 mg/dL (1.6-2.6) Urinalysis Test 02/19/25 17:27 Urine Color Colorless (Yellow) Urine Clarity Clear (Clear) Urine pH 6.5 (5.0-9.0) Urine Specific [place] 1.008 (1.001-1.035) Urine Protein 2+ (Negative) H Urine Ketones 1+ (Negative) H Urine Blood 1+ /uL (Negative) H Urine Nitrite Negative (Negative) Urine Bilirubin Negative (Negative) Urine Urobilinogen Normal mg/dL (Negative) Urine Leukocyte Esterase Negative /uL (Negative) Urine RBC 6 /hpf (0 - 4) Urine Microscopic WBC 2 /HPF (0-5) Urine Squamous Epithelial Cells Few /hpf (<5) Urine Bacteria None seen /hpf (None Seen) Urine Glucose 2+ mg/dL (Normal) H Microbiology Microbiology Date/Time Source Procedure Growth Status 02/19/25 17:27 Urine - [place] Urine Culture - Final Complete 02/19/25 13:14 Blood Blood Culture - Preliminary NO GROWTH AFTER 48 HOURS OF INCUBATION. Resulted Assessment/Plan Assessment/Plan Multiple acute/subacute strokes rule out cardioembolic source Severe hypokalemia Acute kidney injury Hypertension, newly diagnosed Insulin-dependent diabetes mellitus, HgbA1C 9.9% Status post right BKA Dyslipidemia Cannabinoid/tobacco use Plan/Recommendation (Dr. Zhong) unremarkable MYLES, the patient is advised to undergo an event monitor as outpatient to rule out tachyarrhythmias. Thank you for allowing us to participate in this patient's care. Please call if you have any questions or concerns. This medical document was created using an electronic medical record system with voice recognition software and computerized dictation system. Although this document has been carefully reviewed, there might still be some phonetic and typographical errors. Occasional wrong-word or ``sound-alike substitutions may have occurred due to the inherent limitations of voice recognition software. These areas are purely typographical due to imperfections of the software programs and do not reflect any compromise in the patient's medical care. Please read the chart carefully and recognize, using context, where these substitutions have occurred. Plan discussed with: Patient, Other Plan discussed with: Patient, Other (RN) Date of Service: Feb 22, 2025 Billing Provider: ALEX BECKMAN Sr., MD Common Visit Codes: CONSULT ONLY GABO GRANDA Feb 22, 2025 12:04
[2025-02-22] MEDS: POTASSIUM CHLORIDE 80 MEQ, LIDOCAINE 1% (LOCAL ANESTH.) 6 ML in SODIUM CHL 0.9% 500 ML IV ONE (12:24)
--- NOTE | 2025-02-22 13:56 | DVH ---
EXAM: MRI MRI L FOOT WO CONTRAST HISTORY: R/O OSTEOMYELITIS COMPARISON: CT CT L FOOT WO CONTRAST on DOS: 06/18/24, MRI MRI R FOOT WO W CONTRAST on DOS: 06/10/24, M RI MRI R FOOT WO CONTRAST on DOS: 06/04/24 TECHNIQUE: Multiplanar, multisequence MRI of the left foot was performed. FINDINGS: The visualized osseous structures demonstrate normal cortical and bone marrow signal intensity withou t evidence of fracture, trabecular bony injury, or dislocation. Hallux sesamoid complex is intact. The Lisfranc ligament is intact. The visualized portions of tibialis posterior, flexor hallucis longus, and flexor digitorum tendons a re intact. Visualized portions of peroneus longus and brevis tendons are intact. Visualized portion s of the tibialis anterior, extensor digitorum, and extensor hallucis tendons are intact. The partially visualized plantar fascia is intact. There is no evidence of intermetatarsal bursitis or Goel's neuroma. No significant muscle atrophy is noted. There is diffuse edema of the plantar musculature. Moderate dorsal subcutaneous edema. IMPRESSION: 1. Moderate dorsal subcutaneous edema. No evidence of osteomyelitis. No drainable fluid collection no martin. Moderate myositis.
[2025-02-22] MEDS: VANCOMYCIN 1.5GM/300ML 300 ML IV ONE (15:22)
--- NOTE | 2025-02-22 23:10 | DVHPN2 ---
Progress Note - Dictate Date Seen: Feb 22, 2025 Medical Necessity Reason Pt with a Central, PICC or Fol: Yes The following are medically ne: Almaraz Catheter Subjective Mr. Kaur is a 54 years old right-handed female with a history of hypertension, diabetes, dyslipidemia, anxiety, GERD, osteo myelitis status post right BKA, she came to the [facility] on 02/19/25 with a chief complaint of general weakness. I have seen and examined the patient, I have talked to her nurse, she was doing fine, no new complaints, UDS, 02/19/2025: Cannabinoids Plasma alcohol, 02/19/2025: Three Urinalysis, 02/19, : WBC: 2, urine leukocyte esterase WBC/HB/PLT/MCV, 02/20/2025: 21.9/10.9/398/83.1 K, 02/19/2025: 1.7, 02/20/2025: 2.1 BUN/CR, 02/20/2025: 33/2.03 HGB A1c, 06/03/2024: 13.1 Liver function tests, 02/20/2025: Unremarkable TG/HDL/LDL/HDL, 04/11/2024: 180/238/164/43 MAGALIS, 02/21/2025: 1. Technically good study. Sinus rhythm. 2. Left atrial enlargement. 3. Number Valves appear to be structurally normal. 4. Ventricular systolic function is preserved at 60% with normal RV function. 5. Doppler reveals mild TR. No significant mitral or aortic insufficiency. No atrial septal or ventricular septal defects 6. No masses or vegetations discernible. 7. The atrial appendage looks clean, no masses. No atrial or ventricular septal defects as noted. No abnormal shunting. Bubble study was negative 8. The valves appear to be structurally normal. No vegetations or signs of emboli present. Carotid Doppler, 02/20/2025: No hemodynamically significant stenosis noted in the right carotid system. No hemodynamically significant stenosis noted in the left carotid system. CT head, : Small age-indeterminate infarct extending from the right jorge radiata into the right basal ganglia. Further evaluation with MRI brain with diffusion-weighted imaging is recommended. MRI head, 02/19/2025: 1. There are multiple small foci of acute to subacute infarct in the right jorge radiata and right basal ganglia. There are also multiple small acute to subacute infarcts in the left anteromedial frontal lobe and in the left jorge radiata and left basal ganglia. There is no evidence of acute hemorrhage MRI left foot, 02/22/25: Moderate dorsal subcutaneous edema. No evidence of osteomyelitis. No drainable fluid collection noted. Moderate myositis. vital signs Vital Sign Date Time Temp Pulse Resp B/P (MAP) Pulse Ox O2 Delivery O2 Flow Rate FiO2 02/22/25 21:00 98.0 93 18 130/77 (94) 90 98.0 02/22/25 20:00 Room Air* 0 21 Total Intake and Output 02/21/25 02/21/25 02/22/25 15:00 23:00 07:00 Intake Total 500 ml 300 ml Output Total 550 ml 1800 ml Balance -50 ml -1500 ml medications Current Medications Medications Dose Ordered Sig/John Route Start Time Stop Time Status Last Admin Dose Admin Ondansetron HCl 4 mg Q4HP PRN IV 02/19/25 13:45 02/22/25 06:32 4 MG Docusate Sodium 100 mg BIDPRN PRN PO 02/19/25 13:45 Acetaminophen 650 mg Q6HP PRN PO 02/19/25 13:45 02/19/25 21:37 650 MG Nitroglycerin 0.4 mg Q5MINP PRN SL 02/19/25 13:45 Morphine Sulfate 2 mg Q30M PRN IV 02/19/25 13:45 02/19/25 15:37 2 MG Tramadol HCl 50 mg Q6HR PO 02/19/25 18:00 02/22/25 18:22 50 MG Diagnostic Test (Pha) 1 strip ACHS 02/19/25 17:00 02/22/25 18:33 1 STRIP Insulin Human Regular HS SC 02/19/25 22:00 Dextrose 50 ml UD PRN IV 02/19/25 15:45 Duloxetine HCl 30 mg DAILY PO 02/20/25 10:00 02/22/25 10:36 30 MG Gemfibrozil 600 mg BIDAC PO 02/19/25 17:00 02/22/25 18:24 600 MG Hydroxyzine Pamoate 25 mg DAILY PO 02/20/25 10:00 02/22/25 10:36 25 MG Lamotrigine 25 mg DAILY PO 02/20/25 10:00 02/22/25 10:36 25 MG Ceftriaxone Sodium 50 ml @ 100 mls/hr Q24H IV 02/19/25 17:00 02/22/25 18:24 100 MLS/HR Vancomycin HCl 0 ml @ 0 mls/hr UD IV 02/19/25 16:15 Potassium Chloride 100 ml @ 50 mls/hr Q2H IV 02/19/25 23:15 02/20/25 05:14 Cancel Melatonin 10 mg HS PO 02/20/25 22:00 02/22/25 21:27 10 MG Potassium Chloride 100 ml @ 50 mls/hr Q2H IV 02/20/25 07:15 02/20/25 11:14 UNV Atorvastatin Calcium 40 mg HS PO 02/20/25 22:00 02/22/25 21:27 40 MG Aspirin 81 mg DAILY PO 02/21/25 10:00 02/22/25 10:36 81 MG Nifedipine 30 mg DAILY PO 02/21/25 10:00 02/22/25 10:36 30 MG Lactated Ringer's 1,000 ml @ 75 mls/hr [id number] IV 02/21/25 15:45 02/21/25 17:43 75 MLS/HR objective General: the patient is well developed and nourished. No acute distress. MUSCULOSKELETAL EXAM: Status post right BKA MENTAL STATUS: Awake and alert. Oriented to person, place, time and general circumstances. SPEECH, LANGUAGE, HIGHER CORTICAL FUNCTION: no aphasia or dysathria. CRANIAL NERVES: Pupils are equal, round and reactive. EOMs full and conjugate. Facial sensation intact in all three divisions bilaterally. Mandibular strength intact. Facial muscles symmetrical and strength intact. SENSATION: Light touch perceived as tingling in the left upper and lower extremities MOTOR: Normal tone in the upper and lower extremity. Normal muscle bulk. No fasciculations. No abnormal movements or posturing. Muscle strength of the major groups in the upper extremities is 5/5. Muscle strength of the major groups in the left extremities is: Upper extremity: 4/5, lower extremity: 2-3/5, REFLEXES: Deep tendon reflexes are symmetrical. No pathological reflexes. CEREBELLAR/COORDINATION: Finger to nose is normal in the right hand GAIT/STATION: deferred. laboratory and microbiology Laboratory Tests 02/22/25 16:14 3/29/25 05:54 Test 02/22/25 05:54 Range/Units Serum Glucose 173 H 74-106 mg/dL Problem List General weakness Multiple acute/subacute strokes Status post right BKA Assessment/Plan Monitoring Supportive treatment Telemetry Aspirin 81 mg daily Lipitor 40 mg daily (was 10 mg q.d. according reconciled medication list) Lopid 600 mg daily Quit tobacco smoking completely Up to chair Physical therapy I have discussed with her about stroke, and stroke risk fact Discharge to a SNF More recommendation per clinical course This medical document was created using an electronic medical record system with Pzoom dictation system. Although this document has been carefully reviewed, there may still be some phonetic and typographical errors. These areas are purely typographical due to imperfections of the software programs, and do not reflect any compromise in the patient's medical care. Prognosis poor Dietary Evaluation Review Comments: 1) Esau 1 pk BID 2) Refer Gag Writer on DC 3) Continue current plan of care Expected Outcomes/Goals: Pt will meet >75% estimated needs Fu 3-5 days Plan discussed with: Other NEELA RUEDA MD Feb 22, 2025 23:10
[2025-02-23] VITALS (7 sets, daily range): BP systolic 122–168; BP diastolic 66–93; PULSE 87–97; RESP 14–18; TEMP 97.6–98.6; O2SAT 92–95
--- NOTE | 2025-02-23 00:02 | DVHPN2 ---
Consult Progress Note Subjective Other Systems: Patient was seen and evaluated in follow up. Patient is S/p MAGALIS. Patient denies any cardiac symptoms. WBC 11.4, K 3.3, GLUC 230. Right foot MRI showed moderate dorsal subcutaneous edema. No evidence of osteomyelitis. No drainable fluid collection noted. Moderate myositis. No cardiac events reported. Telemery reviewed. Objective vital signs Vital Sign Date Time Temp Pulse Resp B/P (MAP) Pulse Ox O2 Delivery O2 Flow Rate FiO2 02/22/25 20:00 18 Room Air* 0 21 02/22/25 19:13 95 145/80 (101) 02/22/25 16:59 98.4 93 98.4 Total Intake and Output 02/21/25 02/21/25 02/22/25 15:00 23:00 07:00 Intake Total 500 ml 300 ml Output Total 550 ml 1800 ml Balance -50 ml -1500 ml medications Current Medications Medications Dose Ordered Sig/John Route Start Time Stop Time Status Last Admin Dose Admin Ondansetron HCl 4 mg Q4HP PRN IV 02/19/25 13:45 02/22/25 06:32 4 MG Docusate Sodium 100 mg BIDPRN PRN PO 02/19/25 13:45 Acetaminophen 650 mg Q6HP PRN PO 02/19/25 13:45 02/19/25 21:37 650 MG Nitroglycerin 0.4 mg Q5MINP PRN SL 02/19/25 13:45 Morphine Sulfate 2 mg Q30M PRN IV 02/19/25 13:45 02/19/25 15:37 2 MG Tramadol HCl 50 mg Q6HR PO 02/19/25 18:00 02/22/25 18:22 50 MG Diagnostic Test (Pha) 1 strip ACHS 02/19/25 17:00 02/22/25 18:33 1 STRIP Insulin Human Regular HS SC 02/19/25 22:00 Dextrose 50 ml UD PRN IV 02/19/25 15:45 Duloxetine HCl 30 mg DAILY PO 02/20/25 10:00 02/22/25 10:36 30 MG Gemfibrozil 600 mg BIDAC PO 02/19/25 17:00 02/22/25 18:24 600 MG Hydroxyzine Pamoate 25 mg DAILY PO 02/20/25 10:00 02/22/25 10:36 25 MG Lamotrigine 25 mg DAILY PO 02/20/25 10:00 02/22/25 10:36 25 MG Ceftriaxone Sodium 50 ml @ 100 mls/hr Q24H IV 02/19/25 17:00 02/22/25 18:24 100 MLS/HR Vancomycin HCl 0 ml @ 0 mls/hr UD IV 02/19/25 16:15 Potassium Chloride 100 ml @ 50 mls/hr Q2H IV 02/19/25 23:15 02/20/25 05:14 Cancel Melatonin 10 mg HS PO 02/20/25 22:00 02/22/25 21:27 10 MG Potassium Chloride 100 ml @ 50 mls/hr Q2H IV 02/20/25 07:15 02/20/25 11:14 UNV Atorvastatin Calcium 40 mg HS PO 02/20/25 22:00 02/22/25 21:27 40 MG Aspirin 81 mg DAILY PO 02/21/25 10:00 02/22/25 10:36 81 MG Nifedipine 30 mg DAILY PO 02/21/25 10:00 02/22/25 10:36 30 MG Lactated Ringer's 1,000 ml @ 75 mls/hr [id number] IV 02/21/25 15:45 02/21/25 17:43 75 MLS/HR Examination: GENERAL:Normal, HEENT:Normal, NECK:Normal, LUNGS:Normal, CVS:Normal, ABDOMEN:Normal, MSK:Abnormal (Right BKA; decreasing swollen/tender/red left upper extremity; decreasing swollen/tender/red left knee; multiple unstageable ulcers over left foot), SKIN:Normal, NEURO:Normal laboratory and microbiology Laboratory Tests 02/22/25 16:14 02/22/25 05:54 Test 02/22/25 05:54 Range/Units Serum Glucose 173 H 74-106 mg/dL Problem List/Assessment/Plan Problem List/Assessment/Plan Multiple acute/subacute strokes rule out cardioembolic source. Severe hypokalemia. Acute kidney injury. Hypertension, newly diagnosed. Insulin-dependent diabetes mellitus, HgbA1C 9.9%. Status post right BKA. Dyslipidemia. Cannabinoid/tobacco use. Plan/Recommendation Continued all current supportive medical care. Patient has been seen by Rebeca Nelson NP on my behalf, her and I discussed the plan with the patient. Unremarkable MAGALIS, the patient is advised to undergo an event monitor as outpatient to rule out tachyarrhythmias. Additional plan as per the hospital course. Plan discussed with: Patient Dietary Evaluation Review Comments: 1) Esau 1 pk BID 2) Refer Fur Blower on DC 3) Continue current plan of care Expected Outcomes/Goals: Pt will meet >75% estimated needs Fu 3-5 days Date of Service: Feb 22, 2025 Billing Provider: YANIRA WINN MD Cardiology Common Codes: [id number] INP/OBS CARE(Mod) YANIRA WINN MD Feb 22, 2025 22:09
--- NOTE | 2025-02-23 09:22 | DVHPN2 ---
Subjective Continue to complain of left-sided weakness Reviewed: Care Plan, H&P, Labs, Medications, Previous Orders, Radiology, Other (Consultations) Changes from previous H/P or p: No Changes Objective Vitals Vital Signs Date Time Temp Pulse Resp B/P (MAP) Pulse Ox O2 Delivery O2 Flow Rate FiO2 02/23/25 09:00 154/93 02/23/25 08:42 98.3 91 18 95 98.3 02/23/25 08:00 Room Air* 0 21 Intake/Output Intake and Output 02/23/25 07:00 Intake Total 3627.75 ml Output Total 3250 ml Balance 377.75 ml Intake Oral 2800 ml IV Total 827.75 ml Output Urine Total 3250 ml General Appearance: Alert, Oriented X3, Cooperative, No acute distress HEENT: Atraumatic Lungs: Clear to auscultation, Normal air movement Cardiovascular: Regular rate, Normal S1, Normal S2 Abdomen: Normal bowel sounds, Soft, No tenderness Extremities: Other (Right BKA; decreasing swollen/tender/red left upper extremity; decreasing swollen/tender/red left knee; multiple unstageable ulcers over left foot) Neuro: Normal speech, Other (Strength 3/5 in the left upper and lower extremity) Psych/Mental Status: Mental status NL, Mood NL Medications Current Medications Medications Dose Ordered Sig/John Route Start Time Stop Time Status Last Admin Dose Admin Ondansetron HCl 4 mg Q4HP PRN IV 02/19/25 13:45 02/22/25 06:32 4 MG Docusate Sodium 100 mg BIDPRN PRN PO 02/19/25 13:45 Acetaminophen 650 mg Q6HP PRN PO 02/19/25 13:45 02/19/25 21:37 650 MG Nitroglycerin 0.4 mg Q5MINP PRN SL 02/19/25 13:45 Morphine Sulfate 2 mg Q30M PRN IV 02/19/25 13:45 02/19/25 15:37 2 MG Tramadol HCl 50 mg Q6HR PO 02/19/25 18:00 02/23/25 06:03 50 MG Diagnostic Test (Pha) 1 strip ACHS 02/19/25 17:00 02/23/25 06:07 1 STRIP Insulin Human Regular HS SC 02/19/25 22:00 Dextrose 50 ml UD PRN IV 02/19/25 15:45 Duloxetine HCl 30 mg DAILY PO 02/20/25 10:00 02/23/25 08:58 30 MG Gemfibrozil 600 mg BIDAC PO 02/19/25 17:00 02/23/25 06:03 600 MG Hydroxyzine Pamoate 25 mg DAILY PO 02/20/25 10:00 02/23/25 08:58 25 MG Lamotrigine 25 mg DAILY PO 02/20/25 10:00 02/23/25 08:58 25 MG Ceftriaxone Sodium 50 ml @ 100 mls/hr Q24H IV 02/19/25 17:00 02/22/25 18:24 100 MLS/HR Vancomycin HCl 0 ml @ 0 mls/hr UD IV 02/19/25 16:15 Potassium Chloride 100 ml @ 50 mls/hr Q2H IV 02/19/25 23:15 02/20/25 05:14 Cancel Melatonin 10 mg HS PO 02/20/25 22:00 02/22/25 21:27 10 MG Potassium Chloride 100 ml @ 50 mls/hr Q2H IV 02/20/25 07:15 02/20/25 11:14 UNV Atorvastatin Calcium 40 mg HS PO 02/20/25 22:00 02/22/25 21:27 40 MG Aspirin 81 mg DAILY PO 02/21/25 10:00 02/23/25 08:59 81 MG Nifedipine 30 mg DAILY PO 02/21/25 10:00 02/23/25 09:00 30 MG Lactated Ringer's 1,000 ml @ 75 mls/hr [id number] IV 02/21/25 15:45 02/23/25 08:58 75 MLS/HR Laboratory Results Laboratory Tests 02/22/25 05:54 02/22/25 16:14 Urinalysis Test 02/19/25 17:27 Urine Color Colorless (Yellow) Urine Clarity Clear (Clear) Urine pH 6.5 (5.0-9.0) Urine Specific [place] 1.008 (1.001-1.035) Urine Protein 2+ (Negative) H Urine Ketones 1+ (Negative) H Urine Blood 1+ /uL (Negative) H Urine Nitrite Negative (Negative) Urine Bilirubin Negative (Negative) Urine Urobilinogen Normal mg/dL (Negative) Urine Leukocyte Esterase Negative /uL (Negative) Urine RBC 6 /hpf (0 - 4) Urine Microscopic WBC 2 /HPF (0-5) Urine Squamous Epithelial Cells Few /hpf (<5) Urine Bacteria None seen /hpf (None Seen) Urine Glucose 2+ mg/dL (Normal) H Microbiology Microbiology Date/Time Source Procedure Growth Status 02/19/25 17:27 Urine - [place] Urine Culture - Final Complete 02/19/25 13:14 Blood Blood Culture - Preliminary NO GROWTH AFTER 72 HOURS OF INCUBATION. Resulted Labs and/or images reviewed: Labs reviewed by me (Morning labs on February 23, 2025 pending), Image(s) reviewed by me Assessment/Plan Assessment/Plan A 54-year-old female patient; with multiple comorbidities; presented to emergency department with left-sided weakness. #Left-sided weakness due to multiple acute/subacute strokes; continue statin and gemfibrozil with aspirin; cardiology consulted for MAGALIS to rule out cardioembolic source; MAGALIS did not show vegetation or thrombus so was advised to undergo an event monitor as outpatient to rule out tachyarrhythmias by Cardiology; telemetry; fall precautions; physical therapy recommended SNF for rehab so long term care social worker is following; neurology is following; reviewed carotid duplex arterial ultrasound that showed no significant stenosis; reviewed head CT and brain MRI; continue monitoring #Sepsis with fever and leukocytosis along with elevated ESR due to left upper extremity cellulitis; blood and urine cultures with no growth so far; continue IV antibiotics; continue monitoring #Severe hypokalemia; unclear etiology; nephrology is following; to replace as indicated; normal magnesium level; telemetry; morning labs pending; continue monitoring #Metabolic acidosis but no lactic acidosis; reviewed ABGs; nephrology is following; continue monitoring #TATIANNA; most likely vasomotor nephropathy in the setting of sepsis; avoid nephrotoxic agents; nephrology is following; morning labs pending; continue monitoring #Newly diagnosed essential hypertension; continue antihypertensive medications and adjust according to blood pressure readings; neurology and cardiology is following; continue monitoring #Uncontrolled insulin-dependent diabetes mellitus type 2 with hyperglycemia; hemoglobin A1c of 9.9%; continue long-acting insulin and adjust dose based on blood glucose reading; continue insulin sliding scale with hypoglycemia protocol; continue monitoring #PAD status post right BKA; continue gemfibrozil and statin with aspirin; continue monitoring #Mixed dyslipidemia; reviewed lipid profile; continue gemfibrozil and statin; continue monitoring #Left knee swelling/redness/pain; CT showed moderate atherosclerosis, [id number] diffuse soft tissue edema, small joint effusion, Palacios's cyst; continue pain management as indicated; on IV antibiotics; continue monitoring #Left upper extremity cellulitis with superficial venous thrombus in the left cephalic vein; continue IV antibiotics; to apply warm compresses; reviewed Doppler ultrasound that showed no DVT; continue monitoring #Multiple left foot diabetic unstageable ulcers; consulted wound care; Podiatry is following; ordered x-rays; on IV antibiotics; reviewed foot MRI; continue monitoring #Polysubstance use disorder; smokes tobacco and marijuana; counseled on tobacco and marijuana use cessation; reviewed the drug screen and alcohol level; continue monitoring #Diabetic neuropathy; continue lamotrigine and duloxetine; continue pain management as indicated; continue monitoring This medical document was created using an electronic medical record system with computerized dictation system. Although this document has been carefully reviewed, there might still be some phonetic and typographical errors. These areas are purely typographical due to imperfections of the software programs, and do not reflect any compromise in the patient's medical care. Plan discussed with: Patient, Other (Nurse) My Orders Orders - JOLYNN HAAS MD Procedure Category Date Status Time * Deportation Examiner CONS 02/22/25 Transmitted Consult Cleanse Wound With HAYDER 02/22/25 In Process Wound Clean 11:12 Basic Metabolic Panel LAB 02/24/25 Verified 04:00 Complete Blood Count LAB 02/24/25 Verified 04:00 Date of Service: Feb 23, 2025 Billing Provider: JOLYNN HAAS MD Common Visit Codes: [id number] INP/OBS CARE(HIGH) JOLYNN HAAS MD Feb 23, 2025 09:22
[2025-02-23 10:54] LABS: Hemoglobin 11.1 g/dL (12.2-16.2); Mean Corpuscular Hemoglobin 27.6 pg (28.0-32.0); Mean Corpuscular Hgb Conc. 32.5 g/dL (32.0-36.0); Mean Corpuscular Volume 84.9 fL (80.0-100.0); Platelet Count (auto) 422 10^3/uL (140-450); Red Blood Cells 4.01 10^6/uL (4.0-5.20); Red Cell Distribution Width 16.9 % (11.8-14.3); White Blood Cell 10.6 10^3/uL (4.4-10.8)
[2025-02-23 10:55] LABS: Chloride 104 mmol/L (98-107)
[2025-02-23 10:56] LABS: Anion Gap 11 (5-15); Calcium 9.2 mg/dL (8.7-10.4)
[2025-02-23 11:00] LABS: Carbon Dioxide 19 mmol/L (20-31); Sodium 134 mmol/L (136-145)
[2025-02-23 11:01] LABS: BUN/Creatinine Ratio 21.2 (10.0-20.0)
[2025-02-23 11:02] LABS: Magnesium 2.1 mg/dL (1.6-2.6)
[2025-02-23 11:04] LABS: Blood Urea Nitrogen 41 mg/dL (9-23); Glucose 299 mg/dL (74-106)
[2025-02-23 11:10] LABS: Band Neutrophils % (manual) 0; Basophils % (manual) 0 (0.0-2.0); Blast Cells 0; Metamyelocytes % 0; Myelocytes % 0; Promyelocytes % 0; Reactive Lymphocytes 0
[2025-02-23 11:27] LABS: Eosinophils % (manual) 2 (0-7); Lymphocytes % (manual) 8 (10.0-50.0); Monocytes % (manual) 5 (0-12)
[2025-02-23 11:28] LABS: Platelet Estimate Adequate
[2025-02-23] MEDS: POTASSIUM EFFERVESENT TAB 25 MEQ PO ONE (11:42)
--- NOTE | 2025-02-23 12:16 | DVHPN2 ---
Progress Note Date Seen: Feb 23, 2025 Medical Necessity Reason Pt with a Central, PICC or Fol: Yes The following are medically ne: [place] Catheter Subjective Patient reports: Feels better Review of Systems: MSK:Abnormal Objective vital signs Vital Sign Date Time Temp Pulse Resp B/P (MAP) Pulse Ox O2 Delivery O2 Flow Rate FiO2 02/23/25 09:00 154/93 02/23/25 08:42 98.3 91 18 95 98.3 02/23/25 08:00 Room Air* 0 21 Total Intake and Output 02/22/25 02/22/25 02/23/25 15:00 23:00 07:00 Intake Total 2777.75 ml 850 ml Output Total 1950 ml 1300 ml Balance 827.75 ml -450 ml medications Current Medications Medications Dose Ordered Sig/John Route Start Time Stop Time Status Last Admin Dose Admin Ondansetron HCl 4 mg Q4HP PRN IV 02/19/25 13:45 02/22/25 06:32 4 MG Docusate Sodium 100 mg BIDPRN PRN PO 02/19/25 13:45 Acetaminophen 650 mg Q6HP PRN PO 02/19/25 13:45 02/19/25 21:37 650 MG Nitroglycerin 0.4 mg Q5MINP PRN SL 02/19/25 13:45 Diagnostic Test (Pha) 1 strip ACHS 02/19/25 17:00 02/23/25 11:26 1 STRIP Insulin Human Regular HS SC 02/19/25 22:00 Dextrose 50 ml UD PRN IV 02/19/25 15:45 Duloxetine HCl 30 mg DAILY PO 02/20/25 10:00 02/23/25 08:58 30 MG Gemfibrozil 600 mg BIDAC PO 02/19/25 17:00 02/23/25 06:03 600 MG Lamotrigine 25 mg DAILY PO 02/20/25 10:00 02/23/25 08:58 25 MG Ceftriaxone Sodium 50 ml @ 100 mls/hr Q24H IV 02/19/25 17:00 02/22/25 18:24 100 MLS/HR Potassium Chloride 100 ml @ 50 mls/hr Q2H IV 02/19/25 23:15 02/20/25 05:14 Cancel Melatonin 10 mg HS PO 02/20/25 22:00 02/22/25 21:27 10 MG Potassium Chloride 100 ml @ 50 mls/hr Q2H IV 02/20/25 07:15 02/20/25 11:14 UNV Atorvastatin Calcium 40 mg HS PO 02/20/25 22:00 02/22/25 21:27 40 MG Aspirin 81 mg DAILY PO 02/21/25 10:00 02/23/25 08:59 81 MG Nifedipine 30 mg DAILY PO 02/21/25 10:00 02/23/25 09:00 30 MG Lactated Ringer's 1,000 ml @ 75 mls/hr [id number] IV 02/21/25 15:45 02/23/25 08:58 75 MLS/HR Insulin Glargine 10 units BID@0700,2200 SC 02/23/25 22:00 Examination: GENERAL:Normal, CVS:Normal, MSK:Abnormal laboratory and microbiology Laboratory Tests 02/23/25 10:21 Test 02/23/25 10:21 Range/Units Serum Glucose 299 H 74-106 mg/dL Microbiology Date/Time Source Procedure Growth Status 02/19/25 17:27 Urine - [place] Urine Culture - Final Complete 02/19/25 13:14 Blood Blood Culture - Preliminary NO GROWTH AFTER 72 HOURS OF INCUBATION. Resulted Problem List/Assessment/Plan Problem List/Assessment/Plan Acute kidney injury likely hemodynamically mediated Left knee cellulitis Peripheral vascular disease , hx right BKA Diabetes poorly controlled Hypokalemia lactated Ringer's at a rate of 75 cc/hour unremarkable US kidney Potassium replacement Avoid hypotension Avoid NSAIDs IV ABX trial of void soon renal function improving no new recs at this time, rec outpatient clinic will sign off Rest of care as per primary medical team Plan discussed with: Patient Dietary Evaluation Review Comments: 1) Esau 1 pk BID 2) Refer Guard Sergeant on [place] 3) Continue current plan of care Expected Outcomes/Goals: Pt will meet >75% estimated needs Fu 3-5 days KAMRYN MCCARTHY MD Feb 23, 2025 12:16
[2025-02-23] MEDS: NICOTINE 7MG/24HR TOPICAL PATCH TD SCH (14:48)
[2025-02-23] MEDS: LORazepam 0.5 MG TAB PO PRN (15:02)
[2025-02-23] MEDS: POTASSIUM CHLORIDE 60 MEQ, LIDOCAINE 1% (LOCAL ANESTH.) 6 ML in SODIUM CHL 0.9% 500 ML IV ONE (16:08)
[2025-02-23] MEDS: INSULIN LANTUS (GLARGINE) 1 /0.01ml (100units/ml) SC SCH (21:16)
[2025-02-24] VITALS (8 sets, daily range): BP systolic 119–177; BP diastolic 73–100; PULSE 88–105; RESP 16–18; TEMP 97.5–98.2; O2SAT 93–98
--- NOTE | 2025-02-24 00:18 | DVHPN2 ---
Progress Note - Dictate Date Seen: Feb 23, 2025 Medical Necessity Reason Pt with a Central, PICC or Fol: Yes The following are medically ne: [place] Catheter Subjective Patient was seen and evaluated in follow up. Patient is complaining of generalized pain. Patient is refusing to participate in PT.K 3, C02 19, BUN 41, ORACLE PROGRAMMER ANALYST 1.93, GLUC 289. Telemetry reviewed. vital signs Vital Sign Date Time Temp Pulse Resp B/P (MAP) Pulse Ox O2 Delivery O2 Flow Rate FiO2 02/23/25 20:43 97.6 97 14 168/78 (108) 94 97.6 02/23/25 20:00 Room Air* 0 21 Total Intake and Output 02/22/25 02/22/25 02/23/25 15:00 23:00 07:00 Intake Total 2777.75 ml 850 ml Output Total 1950 ml 1300 ml Balance 827.75 ml -450 ml medications Current Medications Medications Dose Ordered Sig/John Route Start Time Stop Time Status Last Admin Dose Admin Ondansetron HCl 4 mg Q4HP PRN IV 02/19/25 13:45 02/22/25 06:32 4 MG Docusate Sodium 100 mg BIDPRN PRN PO 02/19/25 13:45 Acetaminophen 650 mg Q6HP PRN PO 02/19/25 13:45 02/19/25 21:37 650 MG Nitroglycerin 0.4 mg Q5MINP PRN SL 02/19/25 13:45 Diagnostic Test (Pha) 1 strip ACHS 02/19/25 17:00 02/23/25 16:24 1 STRIP Insulin Human Regular HS SC 02/19/25 22:00 Dextrose 50 ml UD PRN IV 02/19/25 15:45 Duloxetine HCl 30 mg DAILY PO 02/20/25 10:00 02/23/25 08:58 30 MG Gemfibrozil 600 mg BIDAC PO 02/19/25 17:00 02/23/25 15:02 600 MG Lamotrigine 25 mg DAILY PO 02/20/25 10:00 02/23/25 08:58 25 MG Ceftriaxone Sodium 50 ml @ 100 mls/hr Q24H IV 02/19/25 17:00 02/23/25 15:02 100 MLS/HR Potassium Chloride 100 ml @ 50 mls/hr Q2H IV 02/19/25 23:15 02/20/25 05:14 Cancel Melatonin 10 mg HS PO 02/20/25 22:00 02/22/25 21:27 10 MG Potassium Chloride 100 ml @ 50 mls/hr Q2H IV 02/20/25 07:15 02/20/25 11:14 UNV Atorvastatin Calcium 40 mg HS PO 02/20/25 22:00 02/22/25 21:27 40 MG Aspirin 81 mg DAILY PO 02/21/25 10:00 02/23/25 08:59 81 MG Nifedipine 30 mg DAILY PO 02/21/25 10:00 02/23/25 09:00 30 MG Lactated Ringer's 1,000 ml @ 75 mls/hr [id number] IV 02/21/25 15:45 02/23/25 08:58 75 MLS/HR Insulin Glargine 10 units BID@0700,2200 SC 02/23/25 22:00 Lorazepam 1 mg Q8HPRN PRN PO 02/23/25 14:15 02/23/25 15:02 1 MG Nicotine 1 patch DAILY TD 02/23/25 14:48 objective GENERAL: Awake, alert, oriented. LUNGS: Clear. CARDIOVASCULAR: Heart sounds are good. ABDOMEN: Soft. laboratory and microbiology Laboratory Tests 02/23/25 10:21 Test 02/23/25 10:21 Range/Units Serum Glucose 299 H 74-106 mg/dL Problem List Multiple acute/subacute strokes rule out cardioembolic source. Severe hypokalemia. Acute kidney injury. Hypertension, newly diagnosed. Insulin-dependent diabetes mellitus, HgbA1C 9.9%. Status post right BKA. Dyslipidemia. Cannabinoid/tobacco use. Assessment/Plan Continued all current supportive medical care. Aspirin, Lipitor. IV antibiotics as ordered. Lopid. Nifedipine. Additional plan as per the hospital course. Dietary Evaluation Review Comments: 1) Esau 1 pk BID 2) Refer Food Production Associate on [place] 3) Continue current plan of care Expected Outcomes/Goals: Pt will meet >75% estimated needs Fu 3-5 days Plan discussed with: Patient YANIRA WINN MD Feb 23, 2025 21:11
[2025-02-24 06:16] LABS: Basophils # (auto) 0.1 10 ^3/uL (0-0.2); Eosinophils # (auto) 0.2 10 ^3/uL (0-0.8); Hematocrit 31.6 % (36.0-46.0); Neutrophils # (auto) 9.1 10 ^3/uL (1.6-8.6)
[2025-02-24 06:18] LABS: Basophils % (auto) 0.4 % (0.0-2.0); Eosinophils % (auto) 1.5 % (0.0-7.0); Hemoglobin 10.7 g/dL (12.2-16.2); Lymphocytes # (auto) 1.5 10 ^3/uL (0.4-5.4); Lymphocytes % (auto) 13.4 % (10.0-50.0); Mean Corpuscular Hemoglobin 28.2 pg (28.0-32.0); Mean Corpuscular Hgb Conc. 33.9 g/dL (32.0-36.0); Mean Corpuscular Volume 83.2 fL (80.0-100.0); Monocytes # (auto) 0.5 10 ^3/uL (0-1.3); Monocytes % (auto) 4.5 % (0.0-12.0); Neutrophils % (auto) 80.2 % (37.0-80.0); Nucleated Red Blood Cells % 0.1 %; Platelet Count (auto) 455 10^3/uL (140-450); Red Cell Distribution Width 16.4 % (11.8-14.3); White Blood Cell 11.4 10^3/uL (4.4-10.8)
[2025-02-24 06:24] LABS: Sodium 138 mmol/L (136-145)
[2025-02-24 06:25] LABS: Anion Gap 9 (5-15); Calcium 9.4 mg/dL (8.7-10.4); Carbon Dioxide 20 mmol/L (20-31); Chloride 109 mmol/L (98-107); Potassium 3.3 mmol/L (3.5-5.1)
[2025-02-24 06:30] LABS: BUN/Creatinine Ratio 21.9 (10.0-20.0)
[2025-02-24 06:31] LABS: Blood Urea Nitrogen 40 mg/dL (9-23); Glucose 162 mg/dL (74-106)
[2025-02-24] MEDS: hydrALAZINE HCL 20 MG/ML VL IV SCH (10:02)
--- NOTE | 2025-02-24 17:01 | DVHPN2 ---
Subjective Complains of weakness in the left side Complains of pain and swelling in the left knee Reviewed: Care Plan, H&P, Labs, Medications, Previous Orders, Radiology, Other (Consultations) Changes from previous H/P or p: Changes Objective Vitals Vital Signs Date Time Temp Pulse Resp B/P (MAP) Pulse Ox O2 Delivery O2 Flow Rate FiO2 02/24/25 13:00 98.0 96 17 144/79 (100) 96 98.0 02/24/25 08:00 Room Air* 0 21 Intake/Output Intake and Output 02/24/25 07:00 Intake Total 1380 ml Output Total 1600 ml Balance -220 ml Intake Oral 1380 ml Output Urine Total 1600 ml General Appearance: Alert, Oriented X3, Cooperative, No acute distress HEENT: Atraumatic Lungs: Clear to auscultation, Normal air movement Cardiovascular: Regular rate, Normal S1, Normal S2 Abdomen: Normal bowel sounds, Soft, No tenderness Extremities: Other (Right BKA; decreasing swollen/tender/red left upper extremity; decreasing swollen/tender/red left knee; multiple unstageable ulcers over left foot) Neuro: Normal speech, Other (Strength 3/5 in the left upper and lower extremity) Psych/Mental Status: Mental status NL, Mood NL Medications Current Medications Medications Dose Ordered Sig/John Route Start Time Stop Time Status Last Admin Dose Admin Ondansetron HCl 4 mg Q4HP PRN IV 02/19/25 13:45 02/22/25 06:32 4 MG Docusate Sodium 100 mg BIDPRN PRN PO 02/19/25 13:45 Acetaminophen 650 mg Q6HP PRN PO 02/19/25 13:45 02/19/25 21:37 650 MG Nitroglycerin 0.4 mg Q5MINP PRN SL 02/19/25 13:45 Diagnostic Test (Pha) 1 strip ACHS 02/19/25 17:00 02/23/25 21:12 1 STRIP Insulin Human Regular HS SC 02/19/25 22:00 02/23/25 21:15 6 UNITS Dextrose 50 ml UD PRN IV 02/19/25 15:45 Duloxetine HCl 30 mg DAILY PO 02/20/25 10:00 02/24/25 10:02 30 MG Gemfibrozil 600 mg BIDAC PO 02/19/25 17:00 02/23/25 15:02 600 MG Lamotrigine 25 mg DAILY PO 02/20/25 10:00 02/24/25 10:02 25 MG Ceftriaxone Sodium 50 ml @ 100 mls/hr Q24H IV 02/19/25 17:00 02/23/25 15:02 100 MLS/HR Potassium Chloride 100 ml @ 50 mls/hr Q2H IV 02/19/25 23:15 02/20/25 05:14 Cancel Melatonin 10 mg HS PO 02/20/25 22:00 02/23/25 21:12 10 MG Potassium Chloride 100 ml @ 50 mls/hr Q2H IV 02/20/25 07:15 02/20/25 11:14 UNV Atorvastatin Calcium 40 mg HS PO 02/20/25 22:00 02/23/25 21:12 40 MG Aspirin 81 mg DAILY PO 02/21/25 10:00 02/24/25 10:02 81 MG Nifedipine 30 mg DAILY PO 02/21/25 10:00 02/24/25 10:02 30 MG Lactated Ringer's 1,000 ml @ 75 mls/hr [id number] IV 02/21/25 15:45 02/23/25 08:58 75 MLS/HR Insulin Glargine 10 units BID@0700,2200 SC 02/23/25 22:00 02/23/25 21:16 10 UNITS Lorazepam 1 mg Q8HPRN PRN PO 02/23/25 14:15 02/24/25 12:45 1 MG Nicotine 1 patch DAILY TD 02/23/25 14:48 Hydralazine HCl 10 mg Q6HPRN IV 02/24/25 12:00 02/24/25 10:02 10 MG Laboratory Results Laboratory Tests 02/24/25 04:41 Chemistry Test 02/24/25 04:41 Calcium Level 9.4 mg/dL (8.7-10.4) Urinalysis Test 02/19/25 17:27 Urine Color Colorless (Yellow) Urine Clarity Clear (Clear) Urine pH 6.5 (5.0-9.0) Urine Specific [place] 1.008 (1.001-1.035) Urine Protein 2+ (Negative) H Urine Ketones 1+ (Negative) H Urine Blood 1+ /uL (Negative) H Urine Nitrite Negative (Negative) Urine Bilirubin Negative (Negative) Urine Urobilinogen Normal mg/dL (Negative) Urine Leukocyte Esterase Negative /uL (Negative) Urine RBC 6 /hpf (0 - 4) Urine Microscopic WBC 2 /HPF (0-5) Urine Squamous Epithelial Cells Few /hpf (<5) Urine Bacteria None seen /hpf (None Seen) Urine Glucose 2+ mg/dL (Normal) H Microbiology Microbiology Date/Time Source Procedure Growth Status 02/19/25 17:27 Urine - [place] Urine Culture - Final Complete 02/19/25 13:14 Blood Blood Culture - Final NO GROWTH AFTER 5 DAYS OF INCUBATION. Complete Assessment/Plan Assessment/Plan Multiple acute/subacute strokes Left lower extremity cellulitis Rule out left septic knee Hypokalemia Acute kidney injury likely hemodynamically mediated due to vasomotor nephropathy Chronic kidney disease Peripheral vascular disease status post right [id number] amputation 6 months ago Poorly controlled type 2 diabetes Sepsis Hypertension Mixed hyperlipidemia Polysubstance use disorder Diabetic neuropathy Plan IV antibiotics Rocephin Arthrocentesis of the left knee to rule out septic arthritis Aspirin and Lipitor and Lopid Nifedipine Lantus Replace potassium Plan discussed with: Patient Date of Service: Feb 24, 2025 Billing Provider: SUKH DUARTE MD Common Visit Codes: [id number] INP/OBS CARE(HIGH) SUKH DUARTE MD Feb 24, 2025 17:01
[2025-02-24] MEDS: POTASSIUM CHL 20 Meq TABLET PO ONE (18:16)
--- NOTE | 2025-02-24 22:49 | DVHPN2 ---
Progress Note - Dictate Date Seen: Feb 24, 2025 Medical Necessity Reason Pt with a Central, PICC or Fol: Yes The following are medically ne: [place] Catheter Subjective Patient was seen and evaluated in follow up. Patient is complaining of pain and swelling in the left knee. WBC 11.4, K 3.3, BUN 40, Sample Worker 1.83. Pending IR evaluation. Telemetry reviewed. vital signs Vital Sign Date Time Temp Pulse Resp B/P (MAP) Pulse Ox O2 Delivery O2 Flow Rate FiO2 02/24/25 21:00 97.5 105 16 119/79 (92) 98 97.5 02/24/25 08:00 Room Air* 0 21 Total Intake and Output 02/23/25 02/23/25 02/24/25 15:00 23:00 07:00 Intake Total 480 ml 720 ml 180 ml Output Total 1600 ml Balance 480 ml -880 ml 180 ml medications Current Medications Medications Dose Ordered Sig/John Route Start Time Stop Time Status Last Admin Dose Admin Ondansetron HCl 4 mg Q4HP PRN IV 02/19/25 13:45 02/22/25 06:32 4 MG Docusate Sodium 100 mg BIDPRN PRN PO 02/19/25 13:45 Acetaminophen 650 mg Q6HP PRN PO 02/19/25 13:45 02/19/25 21:37 650 MG Nitroglycerin 0.4 mg Q5MINP PRN SL 02/19/25 13:45 Diagnostic Test (Pha) 1 strip ACHS 02/19/25 17:00 02/24/25 22:14 1 STRIP Insulin Human Regular HS SC 02/19/25 22:00 02/24/25 22:16 6 UNITS Dextrose 50 ml UD PRN IV 02/19/25 15:45 Duloxetine HCl 30 mg DAILY PO 02/20/25 10:00 02/24/25 10:02 30 MG Gemfibrozil 600 mg BIDAC PO 02/19/25 17:00 02/24/25 17:04 600 MG Lamotrigine 25 mg DAILY PO 02/20/25 10:00 02/24/25 10:02 25 MG Ceftriaxone Sodium 50 ml @ 100 mls/hr Q24H IV 02/19/25 17:00 02/24/25 17:05 100 MLS/HR Potassium Chloride 100 ml @ 50 mls/hr Q2H IV 02/19/25 23:15 02/20/25 05:14 Cancel Melatonin 10 mg HS PO 02/20/25 22:00 02/24/25 22:09 10 MG Potassium Chloride 100 ml @ 50 mls/hr Q2H IV 02/20/25 07:15 02/20/25 11:14 UNV Atorvastatin Calcium 40 mg HS PO 02/20/25 22:00 02/24/25 22:09 40 MG Aspirin 81 mg DAILY PO 02/21/25 10:00 02/24/25 10:02 81 MG Nifedipine 30 mg DAILY PO 02/21/25 10:00 02/24/25 10:02 30 MG Lactated Ringer's 1,000 ml @ 75 mls/hr [id number] IV 02/21/25 15:45 02/24/25 17:11 75 MLS/HR Insulin Glargine 10 units BID@0700,2200 SC 02/23/25 22:00 02/24/25 22:16 10 UNITS Lorazepam 1 mg Q8HPRN PRN PO 02/23/25 14:15 02/24/25 18:44 1 MG Nicotine 1 patch DAILY TD 02/23/25 14:48 Hydralazine HCl 10 mg Q6HPRN IV 02/24/25 12:00 02/24/25 17:05 10 MG objective GENERAL: Awake, alert, oriented. LUNGS: Clear. CARDIOVASCULAR: Heart sounds are good. ABDOMEN: Soft. laboratory and microbiology Laboratory Tests 02/24/25 04:41 Test 02/24/25 04:41 Range/Units Serum Glucose 162 H 74-106 mg/dL Problem List Multiple acute/subacute strokes rule out cardioembolic source. Severe hypokalemia. Acute kidney injury. Hypertension, newly diagnosed. Insulin-dependent diabetes mellitus, HgbA1C 9.9%. Status post right BKA. Dyslipidemia. Cannabinoid/tobacco use. Assessment/Plan Continued all current supportive medical care. Aspirin, Lipitor. IV antibiotics as ordered. Lopid. Nifedipine. Additional plan as per the hospital course. Dietary Evaluation Review Comments: 1) Esau 1 pk BID 2) Refer Insurance Sales Agent on [place] 3) Continue current plan of care Expected Outcomes/Goals: Pt will meet >75% estimated needs Fu 3-5 days Plan discussed with: Patient YANIRA WINN MD Feb 24, 2025 22:49
--- NOTE | 2025-02-24 23:12 | DVHPN2 ---
Progress Note - Dictate Date Seen: Feb 24, 2025 Medical Necessity Reason Pt with a Central, PICC or Fol: Yes The following are medically ne: Almaraz Catheter Subjective Mr. Kaur is a 54 years old right-handed female with a history of hypertension, diabetes, dyslipidemia, anxiety, GERD, osteo myelitis status post right BKA, she came to the [facility] on 02/19/25 with a chief complaint of general weakness. I have seen and examined the patient, I have talked to her nurse, she is doing fine, no new complaints, Social service on case Re: Discharge planning UDS, 02/19/2025: Cannabinoids Plasma alcohol, 02/19/2025: Three Urinalysis, 02/19, : WBC: 2, urine leukocyte esterase WBC/HB/PLT/MCV, 02/20/2025: 21.9/10.9/398/83.1 K, 02/19/2025: 1.7, 02/20/2025: 2.1 BUN/CR, 02/20/2025: 33/2.03 HGB A1c, 06/03/2024: 13.1 Liver function tests, 02/20/2025: Unremarkable TG/HDL/LDL/HDL, 04/11/2024: 180/238/164/43 MAGALIS, 02/21/2025: 1. Technically good study. Sinus rhythm. 2. Left atrial enlargement. 3. Number Valves appear to be structurally normal. 4. Ventricular systolic function is preserved at 60% with normal RV function. 5. Doppler reveals mild TR. No significant mitral or aortic insufficiency. No atrial septal or ventricular septal defects 6. No masses or vegetations discernible. 7. The atrial appendage looks clean, no masses. No atrial or ventricular septal defects as noted. No abnormal shunting. Bubble study was negative 8. The valves appear to be structurally normal. No vegetations or signs of emboli present. Carotid Doppler, 02/20/2025: No hemodynamically significant stenosis noted in the right carotid system. No hemodynamically significant stenosis noted in the left carotid system. CT head, : Small age-indeterminate infarct extending from the right jorge radiata into the right basal ganglia. Further evaluation with MRI brain with diffusion-weighted imaging is recommended. MRI head, 02/19/2025: 1. There are multiple small foci of acute to subacute infarct in the right jorge radiata and right basal ganglia. There are also multiple small acute to subacute infarcts in the left anteromedial frontal lobe and in the left jorge radiata and left basal ganglia. There is no evidence of acute hemorrhage MRI left foot, 02/22/25: Moderate dorsal subcutaneous edema. No evidence of osteomyelitis. No drainable fluid collection noted. Moderate myositis. vital signs Vital Sign Date Time Temp Pulse Resp B/P (MAP) Pulse Ox O2 Delivery O2 Flow Rate FiO2 02/24/25 21:00 97.5 105 16 119/79 (92) 98 97.5 02/24/25 08:00 Room Air* 0 21 Total Intake and Output 02/23/25 02/23/25 02/24/25 15:00 23:00 07:00 Intake Total 480 ml 720 ml 180 ml Output Total 1600 ml Balance 480 ml -880 ml 180 ml medications Current Medications Medications Dose Ordered Sig/John Route Start Time Stop Time Status Last Admin Dose Admin Ondansetron HCl 4 mg Q4HP PRN IV 02/19/25 13:45 02/22/25 06:32 4 MG Docusate Sodium 100 mg BIDPRN PRN PO 02/19/25 13:45 Acetaminophen 650 mg Q6HP PRN PO 02/19/25 13:45 02/19/25 21:37 650 MG Nitroglycerin 0.4 mg Q5MINP PRN SL 02/19/25 13:45 Diagnostic Test (Pha) 1 strip ACHS 02/19/25 17:00 02/24/25 22:14 1 STRIP Insulin Human Regular HS SC 02/19/25 22:00 02/24/25 22:16 6 UNITS Dextrose 50 ml UD PRN IV 02/19/25 15:45 Duloxetine HCl 30 mg DAILY PO 02/20/25 10:00 02/24/25 10:02 30 MG Gemfibrozil 600 mg BIDAC PO 02/19/25 17:00 02/24/25 17:04 600 MG Lamotrigine 25 mg DAILY PO 02/20/25 10:00 02/24/25 10:02 25 MG Ceftriaxone Sodium 50 ml @ 100 mls/hr Q24H IV 02/19/25 17:00 02/24/25 17:05 100 MLS/HR Potassium Chloride 100 ml @ 50 mls/hr Q2H IV 02/19/25 23:15 02/20/25 05:14 Cancel Melatonin 10 mg HS PO 02/20/25 22:00 02/24/25 22:09 10 MG Potassium Chloride 100 ml @ 50 mls/hr Q2H IV 02/20/25 07:15 02/20/25 11:14 UNV Atorvastatin Calcium 40 mg HS PO 02/20/25 22:00 02/24/25 22:09 40 MG Aspirin 81 mg DAILY PO 02/21/25 10:00 02/24/25 10:02 81 MG Nifedipine 30 mg DAILY PO 02/21/25 10:00 02/24/25 10:02 30 MG Lactated Ringer's 1,000 ml @ 75 mls/hr [id number] IV 02/21/25 15:45 02/24/25 17:11 75 MLS/HR Insulin Glargine 10 units BID@0700,2200 SC 02/23/25 22:00 02/24/25 22:16 10 UNITS Lorazepam 1 mg Q8HPRN PRN PO 02/23/25 14:15 02/24/25 18:44 1 MG Nicotine 1 patch DAILY TD 02/23/25 14:48 Hydralazine HCl 10 mg Q6HPRN IV 02/24/25 12:00 02/24/25 17:05 10 MG objective General: the patient is well developed and nourished. No acute distress. MUSCULOSKELETAL EXAM: Status post right BKA MENTAL STATUS: Awake and alert. Oriented to person, place, time and general circumstances. SPEECH, LANGUAGE, HIGHER CORTICAL FUNCTION: no aphasia or dysathria. CRANIAL NERVES: Pupils are equal, round and reactive. EOMs full and conjugate. Facial sensation intact in all three divisions bilaterally. Mandibular strength intact. Facial muscles symmetrical and strength intact. SENSATION: Light touch perceived as tingling in the left upper and lower extremities MOTOR: Normal tone in the upper and lower extremity. Normal muscle bulk. No fasciculations. No abnormal movements or posturing. Muscle strength of the major groups in the upper extremities is 5/5. Muscle strength of the major groups in the left extremities is: Upper extremity: 4/5, lower extremity: 3/5, REFLEXES: Deep tendon reflexes are symmetrical. No pathological reflexes. CEREBELLAR/COORDINATION: Finger to nose is normal in the right hand GAIT/STATION: deferred. laboratory and microbiology Laboratory Tests 02/24/25 04:41 Test 02/24/25 04:41 Range/Units Serum Glucose 162 H 74-106 mg/dL Problem List General weakness Multiple acute/subacute strokes Status post right BKA Assessment/Plan Monitoring Supportive treatment Telemetry Aspirin 81 mg daily Lipitor 40 mg daily (was 10 mg q.d. according reconciled medication list) Lopid 600 mg daily Quit tobacco smoking completely Up to chair Physical therapy (seen by Physical therapy on 02/23/2025) I have discussed with her about stroke, and stroke risk fact Discharge to a SNF More recommendation per clinical course This medical document was created using an electronic medical record system with [employer] dictation system. Although this document has been carefully reviewed, there may still be some phonetic and typographical errors. These areas are purely typographical due to imperfections of the software programs, and do not reflect any compromise in the patient's medical care. Prognosis poor Dietary Evaluation Review Comments: 1) Esau 1 pk BID 2) Refer Sleeping Bag Filler on DC 3) Continue current plan of care Expected Outcomes/Goals: Pt will meet >75% estimated needs Fu 3-5 days Plan discussed with: Other NEELA RUEDA MD Feb 24, 2025 23:12
[2025-02-25] VITALS (7 sets, daily range): BP systolic 123–155; BP diastolic 68–82; PULSE 54–103; RESP 16–18; TEMP 97.8–98.2; O2SAT 94–99
[2025-02-25 06:23] LABS: Hemoglobin 10.3 g/dL (12.2-16.2); Red Cell Distribution Width 16.1 % (11.8-14.3)
[2025-02-25 06:25] LABS: Hematocrit 31.1 % (36.0-46.0); Mean Corpuscular Hemoglobin 27.3 pg (28.0-32.0); Mean Corpuscular Volume 82.8 fL (80.0-100.0); Platelet Count (auto) 463 10^3/uL (140-450); Red Blood Cells 3.76 10^6/uL (4.0-5.20); White Blood Cell 11.9 10^3/uL (4.4-10.8)
[2025-02-25 06:34] LABS: Alanine Aminotransferase 13 U/L (7-40); Anion Gap 9 (5-15); BUN/Creatinine Ratio 27.5 (10.0-20.0); Calcium 9.5 mg/dL (8.7-10.4); Carbon Dioxide 22 mmol/L (20-31); Sodium 139 mmol/L (136-145)
[2025-02-25 06:40] LABS: Alkaline Phosphatase 247 U/L (46-116); Aspartate Aminotransferase 12 U/L (13-40); Bilirubin, Total < 0.2 mg/dL (0.2-1.0); Blood Urea Nitrogen 50 mg/dL (9-23); Chloride 108 mmol/L (98-107); Glucose 126 mg/dL (74-106); Potassium 2.8 mmol/L (3.5-5.1); Total Protein 5.6 g/dL (5.7-8.2)
[2025-02-25 06:55] LABS: Basophils % (manual) 0 (0.0-2.0); Blast Cells 0; Metamyelocytes % 0; Promyelocytes % 0; Reactive Lymphocytes 0
[2025-02-25 07:00] LABS: Band Neutrophils % (manual) 3; Eosinophils % (manual) 1 (0-7); Lymphocytes % (manual) 11 (10.0-50.0); Monocytes % (manual) 2 (0-12); Myelocytes % 1
[2025-02-25 07:01] LABS: Platelet Estimate Increased
[2025-02-25 08:07] LABS: Complement C3 172 mg/dL (82-167)
[2025-02-25] MEDS: POTASSIUM CHL 20 Meq TABLET PO ONE (10:15)
--- NOTE | 2025-02-25 11:06 | DVHPN2 ---
Subjective No new complaints Potassium is 2.8 Reviewed: Care Plan, H&P, Labs, Medications, Previous Orders, Radiology, Other (Consultations) Changes from previous H/P or p: Changes Objective Vitals Vital Signs Date Time Temp Pulse Resp B/P (MAP) Pulse Ox O2 Delivery O2 Flow Rate FiO2 02/25/25 10:15 154/82 02/25/25 09:00 98.2 92 17 94 98.2 02/24/25 20:00 Room Air* 0 21 Intake/Output Intake and Output 02/25/25 07:00 Intake Total 1470 ml Output Total 2850 ml Balance -1380 ml Intake Oral 1470 ml Output Urine Total 2850 ml General Appearance: Alert, Oriented X3, Cooperative, No acute distress HEENT: Atraumatic Lungs: Clear to auscultation, Normal air movement Cardiovascular: Regular rate, Normal S1, Normal S2 Abdomen: Normal bowel sounds, Soft, No tenderness Extremities: Other (Right BKA; decreasing swollen/tender/red left upper extremity; decreasing swollen/tender/red left knee; multiple unstageable ulcers over left foot) Neuro: Normal speech, Other (Strength 3/5 in the left upper and lower extremity) Psych/Mental Status: Mental status NL, Mood NL Medications Current Medications Medications Dose Ordered Sig/John Route Start Time Stop Time Status Last Admin Dose Admin Ondansetron HCl 4 mg Q4HP PRN IV 02/19/25 13:45 02/22/25 06:32 4 MG Docusate Sodium 100 mg BIDPRN PRN PO 02/19/25 13:45 Acetaminophen 650 mg Q6HP PRN PO 02/19/25 13:45 02/19/25 21:37 650 MG Nitroglycerin 0.4 mg Q5MINP PRN SL 02/19/25 13:45 Diagnostic Test (Pha) 1 strip ACHS 02/19/25 17:00 02/25/25 06:32 1 STRIP Insulin Human Regular HS SC 02/19/25 22:00 02/24/25 22:16 6 UNITS Dextrose 50 ml UD PRN IV 02/19/25 15:45 Duloxetine HCl 30 mg DAILY PO 02/20/25 10:00 02/25/25 10:14 30 MG Gemfibrozil 600 mg BIDAC PO 02/19/25 17:00 02/25/25 06:32 600 MG Lamotrigine 25 mg DAILY PO 02/20/25 10:00 02/25/25 10:14 25 MG Ceftriaxone Sodium 50 ml @ 100 mls/hr Q24H IV 02/19/25 17:00 02/24/25 17:05 100 MLS/HR Potassium Chloride 100 ml @ 50 mls/hr Q2H IV 02/19/25 23:15 02/20/25 05:14 Cancel Melatonin 10 mg HS PO 02/20/25 22:00 02/24/25 22:09 10 MG Potassium Chloride 100 ml @ 50 mls/hr Q2H IV 02/20/25 07:15 02/20/25 11:14 UNV Atorvastatin Calcium 40 mg HS PO 02/20/25 22:00 02/24/25 22:09 40 MG Aspirin 81 mg DAILY PO 02/21/25 10:00 02/25/25 10:14 81 MG Nifedipine 30 mg DAILY PO 02/21/25 10:00 02/25/25 10:15 30 MG Lactated Ringer's 1,000 ml @ 75 mls/hr [id number] IV 02/21/25 15:45 02/24/25 17:11 75 MLS/HR Insulin Glargine 10 units BID@0700,2200 SC 02/23/25 22:00 02/24/25 22:16 10 UNITS Lorazepam 1 mg Q8HPRN PRN PO 02/23/25 14:15 02/25/25 05:06 1 MG Nicotine 1 patch DAILY TD 02/23/25 14:48 02/25/25 10:21 1 PATCH Hydralazine HCl 10 mg Q6HPRN IV 02/24/25 12:00 02/25/25 06:00 10 MG Laboratory Results Laboratory Tests 02/25/25 04:41 Chemistry Test 02/25/25 04:41 Albumin 3.0 g/dL (3.2-4.8) L Calcium Level 9.5 mg/dL (8.7-10.4) Magnesium Level 2.0 mg/dL (1.6-2.6) Total Protein 5.6 g/dL (5.7-8.2) L LFT Test 02/25/25 04:41 Alanine Aminotransferase (ALT) 13 U/L (7-40) Alkaline Phosphatase 247 U/L (46-116) H Aspartate Amino Transferase (AST) 12 U/L (13-40) L Total Bilirubin < 0.2 mg/dL (0.2-1.0) L Urinalysis Test 02/19/25 17:27 Urine Color Colorless (Yellow) Urine Clarity Clear (Clear) Urine pH 6.5 (5.0-9.0) Urine Specific [place] 1.008 (1.001-1.035) Urine Protein 2+ (Negative) H Urine Ketones 1+ (Negative) H Urine Blood 1+ /uL (Negative) H Urine Nitrite Negative (Negative) Urine Bilirubin Negative (Negative) Urine Urobilinogen Normal mg/dL (Negative) Urine Leukocyte Esterase Negative /uL (Negative) Urine RBC 6 /hpf (0 - 4) Urine Microscopic WBC 2 /HPF (0-5) Urine Squamous Epithelial Cells Few /hpf (<5) Urine Bacteria None seen /hpf (None Seen) Urine Glucose 2+ mg/dL (Normal) H Microbiology Microbiology Date/Time Source Procedure Growth Status 02/19/25 17:27 Urine - Almaraz Port Urine Culture - Final Complete 02/19/25 13:14 Blood Blood Culture - Final NO GROWTH AFTER 5 DAYS OF INCUBATION. Complete Assessment/Plan Assessment/Plan Multiple acute/subacute strokes Left lower extremity cellulitis Rule out left septic knee Hypokalemia Acute kidney injury likely hemodynamically mediated due to vasomotor nephropathy Chronic kidney disease Peripheral vascular disease status post right [id number] amputation 6 months ago Poorly controlled type 2 diabetes Sepsis Hypertension Mixed hyperlipidemia Polysubstance use disorder Diabetic neuropathy Plan IV antibiotics Rocephin Arthrocentesis of the left knee to rule out septic arthritis Aspirin and Lipitor and Lopid Nifedipine Lantus Replace potassium 02/25/2025: Hypokalemia: Replace Left leg and knee infection: Continue antibiotic Radiology for left knee arthrocentesis Monitor closely Plan discussed with: Patient My Orders Orders - SUKH DUARTE MD Procedure Category Date Status Time * Radiologist Consult CONS 02/24/25 Transmitted 16:57 Date of Service: Feb 25, 2025 Billing Provider: SUKH DUARTE MD Common Visit Codes: [id number] INP/OBS CARE(HIGH) SUKH DUARTE MD Feb 25, 2025 11:06
--- NOTE | 2025-02-25 12:37 | DVH ---
Exam: US LEFT LOWER EXTREMITY ULTRASOUN Date: 02/25/2025 12:09 PM Clinical History: FLUID COLLECTION Comparison: None Technique: Targeted sonographic evaluation of the soft tissues of the left knee was obtained utilizing grayscale and color Doppler imaging. Findings: 6 x 3 x 1 cm left knee fluid collection IMPRESSION: 6 x 3 x 1 cm left knee fluid collection
--- NOTE | 2025-02-25 13:35 | DVH ---
US US GUIDANCE FOR NEEDLE PLACEME, HISTORY: LEFT KNEE FLUID PROCEDURE: An informed consent was obtained. The patient was placed supine on the bed. The left knee fluid collection was localized with ultrasound and the overlying skin prepped with chlorhexidine whi ch was allowed to dry and draped in the usual sterile fashion. Time out was performed and infiltrated with 1% Xylocaine. With US guidance, 19-gauge centesis needle catheter was advanced into the fluid c ollection. . Approximately 30 cc of clear thick serous fluid was aspirated. The catheter was removed . No immediate complication was identified. Post procedure catherogram was obtained. FINDINGS: Limited US scan of through the left knee demonstrates a fluid collection in the left knee j oint effusion. Collection appears simple. IMPRESSION: Successful US guided left knee arthrocentesis with 30 mL removed for analysis.
--- NOTE | 2025-02-25 16:46 | DVHPN2 ---
Progress Note - Dictate Date Seen: Feb 25, 2025 Medical Necessity Reason Pt with a Central, PICC or Fol: Yes The following are medically ne: Almaraz Catheter Subjective Mr. Kaur is a 54 years old right-handed female with a history of hypertension, diabetes, dyslipidemia, anxiety, GERD, osteo myelitis status post right BKA, she came to the [facility] on 02/19/25 with a chief complaint of general weakness. I have seen and examined the patient, I have talked to her nurse, she is doing fine, no new complaints She looks depressed, she was not motivated to do things. She reports a history of depression, she was on bupropion which caused a lot of side effects. I have discussing, she was agreed to see a Tele-psychiatrist in the hospital UDS, 02/19/2025: Cannabinoids Plasma alcohol, 02/19/2025: Three Urinalysis, 02/19, : WBC: 2, urine leukocyte esterase WBC/HB/PLT/MCV, 02/20/2025: 21.9/10.9/398/83.1 K, 02/19/2025: 1.7, 02/20/2025: 2.1 BUN/CR, 02/20/2025: 33/2.03 HGB A1c, 06/03/2024: 13.1 Liver function tests, 02/20/2025: Unremarkable TG/HDL/LDL/HDL, 04/11/2024: 180/238/164/43 MAGALIS, 02/21/2025: 1. Technically good study. Sinus rhythm. 2. Left atrial enlargement. 3. Number Valves appear to be structurally normal. 4. Ventricular systolic function is preserved at 60% with normal RV function. 5. Doppler reveals mild TR. No significant mitral or aortic insufficiency. No atrial septal or ventricular septal defects 6. No masses or vegetations discernible. 7. The atrial appendage looks clean, no masses. No atrial or ventricular septal defects as noted. No abnormal shunting. Bubble study was negative 8. The valves appear to be structurally normal. No vegetations or signs of emboli present. Carotid Doppler, 02/20/2025: No hemodynamically significant stenosis noted in the right carotid system. No hemodynamically significant stenosis noted in the left carotid system. CT head, : Small age-indeterminate infarct extending from the right jorge radiata into the right basal ganglia. Further evaluation with MRI brain with diffusion-weighted imaging is recommended. MRI head, 02/19/2025: 1. There are multiple small foci of acute to subacute infarct in the right jorge radiata and right basal ganglia. There are also multiple small acute to subacute infarcts in the left anteromedial frontal lobe and in the left jorge radiata and left basal ganglia. There is no evidence of acute hemorrhage MRI left foot, 02/22/25: Moderate dorsal subcutaneous edema. No evidence of osteomyelitis. No drainable fluid collection noted. Moderate myositis. vital signs Vital Sign Date Time Temp Pulse Resp B/P (MAP) Pulse Ox O2 Delivery O2 Flow Rate FiO2 02/25/25 13:09 167/54 02/25/25 09:00 98.2 92 17 94 98.2 02/25/25 08:00 Room Air* 0 21 Total Intake and Output 02/24/25 02/24/25 02/25/25 15:00 23:00 07:00 Intake Total 870 ml 600 ml Output Total 1650 ml 1200 ml Balance -780 ml -600 ml medications Current Medications Medications Dose Ordered Sig/John Route Start Time Stop Time Status Last Admin Dose Admin Ondansetron HCl 4 mg Q4HP PRN IV 02/19/25 13:45 02/22/25 06:32 4 MG Docusate Sodium 100 mg BIDPRN PRN PO 02/19/25 13:45 Acetaminophen 650 mg Q6HP PRN PO 02/19/25 13:45 02/19/25 21:37 650 MG Nitroglycerin 0.4 mg Q5MINP PRN SL 02/19/25 13:45 Diagnostic Test (Pha) 1 strip ACHS 02/19/25 17:00 02/25/25 11:31 1 STRIP Insulin Human Regular HS SC 02/19/25 22:00 02/24/25 22:16 6 UNITS Dextrose 50 ml UD PRN IV 02/19/25 15:45 Duloxetine HCl 30 mg DAILY PO 02/20/25 10:00 02/25/25 10:14 30 MG Gemfibrozil 600 mg BIDAC PO 02/19/25 17:00 02/25/25 06:32 600 MG Lamotrigine 25 mg DAILY PO 02/20/25 10:00 02/25/25 10:14 25 MG Ceftriaxone Sodium 50 ml @ 100 mls/hr Q24H IV 02/19/25 17:00 02/24/25 17:05 100 MLS/HR Potassium Chloride 100 ml @ 50 mls/hr Q2H IV 02/19/25 23:15 02/20/25 05:14 Cancel Melatonin 10 mg HS PO 02/20/25 22:00 02/24/25 22:09 10 MG Potassium Chloride 100 ml @ 50 mls/hr Q2H IV 02/20/25 07:15 02/20/25 11:14 UNV Atorvastatin Calcium 40 mg HS PO 02/20/25 22:00 02/24/25 22:09 40 MG Aspirin 81 mg DAILY PO 02/21/25 10:00 02/25/25 10:14 81 MG Nifedipine 30 mg DAILY PO 02/21/25 10:00 02/25/25 10:15 30 MG Lactated Ringer's 1,000 ml @ 75 mls/hr [id number] IV 02/21/25 15:45 02/24/25 17:11 75 MLS/HR Insulin Glargine 10 units BID@0700,2200 SC 02/23/25 22:00 02/24/25 22:16 10 UNITS Lorazepam 1 mg Q8HPRN PRN PO 02/23/25 14:15 02/25/25 05:06 1 MG Nicotine 1 patch DAILY TD 02/23/25 14:48 02/25/25 10:21 1 PATCH Hydralazine HCl 10 mg Q6HPRN IV 02/24/25 12:00 02/25/25 13:09 10 MG objective General: the patient is well developed and nourished. No acute distress. MUSCULOSKELETAL EXAM: Status post right BKA MENTAL STATUS: Awake and alert. Oriented to person, place, time and general circumstances. SPEECH, LANGUAGE, HIGHER CORTICAL FUNCTION: no aphasia or dysathria. CRANIAL NERVES: Pupils are equal, round and reactive. EOMs full and conjugate. Facial sensation intact in all three divisions bilaterally. Mandibular strength intact. Facial muscles symmetrical and strength intact. SENSATION: Light touch perceived as tingling in the left upper and lower extremities MOTOR: Normal tone in the upper and lower extremity. Normal muscle bulk. No fasciculations. No abnormal movements or posturing. Muscle strength of the major groups in the upper extremities is 5/5. Muscle strength of the major groups in the left extremities is: Upper extremity: 4/5, lower extremity: 3/5, REFLEXES: Deep tendon reflexes are symmetrical. No pathological reflexes. CEREBELLAR/COORDINATION: Finger to nose is normal in the right hand GAIT/STATION: deferred. laboratory and microbiology Laboratory Tests 02/25/25 04:41 Test 02/25/25 04:41 Range/Units Serum Glucose 126 H 74-106 mg/dL Problem List General weakness Multiple acute/subacute strokes Status post right BKA Depression Assessment/Plan Monitoring Supportive treatment Tele psych Re: Depression Telemetry Aspirin 81 mg daily Lipitor 40 mg daily (was 10 mg q.d. according reconciled medication list) Lopid 600 mg daily Quit tobacco smoking completely Up to chair Physical therapy (seen by Physical therapy on 02/23/2025) I have discussed with her about stroke, and stroke risk fact Discharge to a SNF More recommendation per clinical course This medical document was created using an electronic medical record system with [email or web address] dictation system. Although this document has been carefully reviewed, there may still be some phonetic and typographical errors. These areas are purely typographical due to imperfections of the software programs, and do not reflect any compromise in the patient's medical care. Prognosis poor Dietary Evaluation Review Comments: 1) Esau 1 pk BID 2) Refer Analysis Evaluator on DC 3) Continue current plan of care Expected Outcomes/Goals: Pt will meet >75% estimated needs Fu 3-5 days Plan discussed with: Patient, Other Total Time (mins): 35 NEELA RUEDA MD Feb 25, 2025 16:46
[2025-02-25 17:07] LABS: Anti-Centromere B Antibody <0.2 AI (0.0-0.9); Anti-Jo-1 Antibody <0.2 AI (0.0-0.9); Anti-dsDNA Antibody <1 IU/mL (0-9); Antichromatin Antibody <0.2 AI (0.0-0.9); Antiscleroderma-70 Antibody <0.2 AI (0.0-0.9); RNP Antibody <0.2 AI (0.0-0.9); Sjogren's Anti-SS-A Antibody <0.2 AI (0.0-0.9); Sjogren's Anti-SS-B Antibody <0.2 AI (0.0-0.9); Smith Antibody <0.2 AI (0.0-0.9)
[2025-02-25 17:22] LABS: Body Fluid Red Blood Cells 325 CUMM (0-2000); Body Fluid White Blood Cells 225 CUMM (0-200)
--- NOTE | 2025-02-25 22:59 | DVHPN2 ---
Progress Note - Dictate Date Seen: Feb 25, 2025 Medical Necessity Reason Pt with a Central, PICC or Fol: Yes The following are medically ne: Almaraz Catheter Subjective Patient was seen and evaluated in follow up. Patient is complaining of left knee pain. patient also reports feeling depressed. She is pending tele-psychiatrist evaluation. WBC 11.9, K 2.8, BUN 50, Digital Imaging Technician 1.82. Patient underwent successful US guided left knee arthrocentesis with 30 mL removed for analysis. LLE US showed a 6 x 3 x 1 cm left knee fluid collection. Telemetry reviewed. vital signs Vital Sign Date Time Temp Pulse Resp B/P (MAP) Pulse Ox O2 Delivery O2 Flow Rate FiO2 02/25/25 17:38 155/80 02/25/25 16:50 98.0 96 18 99 98.0 02/25/25 08:00 Room Air* 0 21 Total Intake and Output 02/24/25 02/24/25 02/25/25 15:00 23:00 07:00 Intake Total 870 ml 600 ml Output Total 1650 ml 1200 ml Balance -780 ml -600 ml medications Current Medications Medications Dose Ordered Sig/John Route Start Time Stop Time Status Last Admin Dose Admin Ondansetron HCl 4 mg Q4HP PRN IV 02/19/25 13:45 02/22/25 06:32 4 MG Docusate Sodium 100 mg BIDPRN PRN PO 02/19/25 13:45 Acetaminophen 650 mg Q6HP PRN PO 02/19/25 13:45 02/19/25 21:37 650 MG Nitroglycerin 0.4 mg Q5MINP PRN SL 02/19/25 13:45 Diagnostic Test (Pha) 1 strip ACHS 02/19/25 17:00 02/25/25 22:00 1 STRIP Insulin Human Regular HS SC 02/19/25 22:00 02/25/25 22:35 4 UNITS Dextrose 50 ml UD PRN IV 02/19/25 15:45 Duloxetine HCl 30 mg DAILY PO 02/20/25 10:00 02/25/25 10:14 30 MG Gemfibrozil 600 mg BIDAC PO 02/19/25 17:00 02/25/25 17:05 600 MG Lamotrigine 25 mg DAILY PO 02/20/25 10:00 02/25/25 10:14 25 MG Ceftriaxone Sodium 50 ml @ 100 mls/hr Q24H IV 02/19/25 17:00 02/25/25 17:05 100 MLS/HR Potassium Chloride 100 ml @ 50 mls/hr Q2H IV 02/19/25 23:15 02/20/25 05:14 Cancel Melatonin 10 mg HS PO 02/20/25 22:00 02/25/25 22:30 10 MG Potassium Chloride 100 ml @ 50 mls/hr Q2H IV 02/20/25 07:15 02/20/25 11:14 UNV Atorvastatin Calcium 40 mg HS PO 02/20/25 22:00 02/25/25 22:30 40 MG Aspirin 81 mg DAILY PO 02/21/25 10:00 02/25/25 10:14 81 MG Nifedipine 30 mg DAILY PO 02/21/25 10:00 02/25/25 10:15 30 MG Lactated Ringer's 1,000 ml @ 75 mls/hr [id number] IV 02/21/25 15:45 02/24/25 17:11 75 MLS/HR Insulin Glargine 10 units BID@0700,2200 SC 02/23/25 22:00 02/25/25 22:35 10 UNITS Lorazepam 1 mg Q8HPRN PRN PO 02/23/25 14:15 02/25/25 17:37 1 MG Nicotine 1 patch DAILY TD 02/23/25 14:48 02/25/25 10:21 1 PATCH Hydralazine HCl 10 mg Q6HPRN IV 02/24/25 12:00 02/25/25 17:38 10 MG objective GENERAL: Awake, alert, oriented. LUNGS: Clear. CARDIOVASCULAR: Heart sounds are good. ABDOMEN: Soft. laboratory and microbiology Laboratory Tests 02/25/25 04:41 Test 02/25/25 04:41 Range/Units Serum Glucose 126 H 74-106 mg/dL Problem List Multiple acute/subacute strokes rule out cardioembolic source. Severe hypokalemia. Acute kidney injury. Hypertension, newly diagnosed. Insulin-dependent diabetes mellitus, HgbA1C 9.9%. Status post right BKA. Dyslipidemia. Cannabinoid/tobacco use. Assessment/Plan Continued all current supportive medical care. Aspirin, Lipitor. IV antibiotics as ordered. Lopid. Nifedipine. Additional plan as per the hospital course. Dietary Evaluation Review Comments: 1) Esau 1 pk BID 2) Refer Corn Cutter on DC 3) Continue current plan of care Expected Outcomes/Goals: Pt will meet >75% estimated needs Fu 3-5 days Plan discussed with: Patient YANIRA WINN MD Feb 25, 2025 22:59
[2025-02-26] VITALS (8 sets, daily range): BP systolic 118–160; BP diastolic 62–96; PULSE 87–101; RESP 16–20; TEMP 97.6–98.2; O2SAT 93–98
[2025-02-26 10:25] LABS: Mean Corpuscular Hgb Conc. 32.9 g/dL (32.0-36.0); White Blood Cell 14.5 10^3/uL (4.4-10.8)
[2025-02-26 10:26] LABS: Hematocrit 30.4 % (36.0-46.0); Mean Corpuscular Hemoglobin 27.1 pg (28.0-32.0); Mean Corpuscular Volume 82.4 fL (80.0-100.0); Red Blood Cells 3.69 10^6/uL (4.0-5.20); Red Cell Distribution Width 16.1 % (11.8-14.3)
[2025-02-26 10:30] LABS: Platelet Count (auto) 476 10^3/uL (140-450)
[2025-02-26] MEDS ORDERED: VANCOMYCIN PER PHARMACY 0 MG IV SCH (10:30)
[2025-02-26 10:31] LABS: Basophils % (manual) 0 (0.0-2.0); Blast Cells 0; Eosinophils % (manual) 0 (0-7); Metamyelocytes % 0; Myelocytes % 0; Promyelocytes % 0; Reactive Lymphocytes 0
[2025-02-26 10:43] LABS: Anion Gap 9 (5-15); BUN/Creatinine Ratio 25.8 (10.0-20.0); Calcium 9.2 mg/dL (8.7-10.4); Carbon Dioxide 21 mmol/L (20-31); Magnesium 1.9 mg/dL (1.6-2.6); Sodium 138 mmol/L (136-145)
[2025-02-26 10:48] LABS: Alanine Aminotransferase 9 U/L (7-40); Albumin 2.9 g/dL (3.2-4.8); Alkaline Phosphatase 227 U/L (46-116); Aspartate Aminotransferase 11 U/L (13-40); Bilirubin, Total < 0.2 mg/dL (0.2-1.0); Blood Urea Nitrogen 46 mg/dL (9-23); Chloride 108 mmol/L (98-107); Glucose 162 mg/dL (74-106); Potassium 2.8 mmol/L (3.5-5.1); Total Protein 5.4 g/dL (5.7-8.2)
[2025-02-26 11:00] LABS: Band Neutrophils % (manual) 15; Lymphocytes % (manual) 10 (10.0-50.0); Monocytes % (manual) 3 (0-12); Platelet Estimate Increased
[2025-02-26] MEDS: VANCOMYCIN 1GM/200ML PM 250 ML IV ONE (12:00)
[2025-02-26] MEDS: MEROPENEM 1GM IVPB 50 ML IV ONE (12:13)
[2025-02-26] MEDS: HYDROcodone-ACET 5/325MG TAB PO PRN (12:14)
[2025-02-26] MEDS: POTASSIUM CHL 20MEQ/50ML 50 ML IV ONE (14:15)
[2025-02-26] MEDS: ENOXAPARIN SOD 40 MG/0.4 ML SYRINGE SC ONE (14:15)
[2025-02-26] MEDS: POTASSIUM CHL 20 Meq TABLET PO ONE (14:15)
[2025-02-26] MEDS: SODIUM CHL 0.9% 50 ML IV ONE (14:30)
[2025-02-26] MEDS: MAGNESIUM SULFATE 1GM/100ML 100 ML IV SCH (15:00)
--- NOTE | 2025-02-26 15:36 | DVHPN2 ---
Subjective The left leg and left knee has less erythema and less swelling Arthrocentesis was done yesterday showed 225 WBCs 90% polymorphonuclears cells Reviewed: Care Plan, H&P, Labs, Medications, Previous Orders, Radiology, Other (Consultations) Changes from previous H/P or p: Changes Objective Vitals Vital Signs Date Time Temp Pulse Resp B/P (MAP) Pulse Ox O2 Delivery O2 Flow Rate FiO2 02/26/25 13:06 98.1 101 17 160/93 (115) 96 98.1 02/26/25 08:25 Room Air* 0 21 Intake/Output Intake and Output 02/26/25 07:00 Intake Total 1248 ml Output Total 1000 ml Balance 248 ml Intake Oral 1198 ml IV Total 50 ml Output Urine Total 1000 ml # Voids 3 # Bowel Movements 1 General Appearance: Alert, Oriented X3, Cooperative, No acute distress HEENT: Atraumatic Lungs: Clear to auscultation, Normal air movement Cardiovascular: Regular rate, Normal S1, Normal S2 Abdomen: Normal bowel sounds, Soft, No tenderness Extremities: Other (Right BKA; decreasing swollen/tender/red left upper extremity; decreasing swollen/tender/red left knee; multiple unstageable ulcers over left foot) Neuro: Normal speech, Other (Strength 3/5 in the left upper and lower extremity) Psych/Mental Status: Mental status NL, Mood NL Medications Current Medications Medications Dose Ordered Sig/John Route Start Time Stop Time Status Last Admin Dose Admin Ondansetron HCl 4 mg Q4HP PRN IV 02/19/25 13:45 02/22/25 06:32 4 MG Docusate Sodium 100 mg BIDPRN PRN PO 02/19/25 13:45 Acetaminophen 650 mg Q6HP PRN PO 02/19/25 13:45 02/19/25 21:37 650 MG Nitroglycerin 0.4 mg Q5MINP PRN SL 02/19/25 13:45 Diagnostic Test (Pha) 1 strip ACHS 02/19/25 17:00 02/26/25 11:30 1 STRIP Insulin Human Regular HS SC 02/19/25 22:00 02/25/25 22:35 4 UNITS Dextrose 50 ml UD PRN IV 02/19/25 15:45 Duloxetine HCl 30 mg DAILY PO 02/20/25 10:00 02/26/25 08:52 30 MG Gemfibrozil 600 mg BIDAC PO 02/19/25 17:00 02/26/25 06:14 600 MG Lamotrigine 25 mg DAILY PO 02/20/25 10:00 02/26/25 08:52 25 MG Potassium Chloride 100 ml @ 50 mls/hr Q2H IV 02/19/25 23:15 02/20/25 05:14 Cancel Melatonin 10 mg HS PO 02/20/25 22:00 02/25/25 22:30 10 MG Potassium Chloride 100 ml @ 50 mls/hr Q2H IV 02/20/25 07:15 02/20/25 11:14 UNV Atorvastatin Calcium 40 mg HS PO 02/20/25 22:00 02/25/25 22:30 40 MG Aspirin 81 mg DAILY PO 02/21/25 10:00 02/26/25 08:51 81 MG Nifedipine 30 mg DAILY PO 02/21/25 10:00 02/26/25 08:51 30 MG Lactated Ringer's 1,000 ml @ 75 mls/hr [id number] IV 02/21/25 15:45 02/24/25 17:11 75 MLS/HR Insulin Glargine 10 units BID@0700,2200 SC 02/23/25 22:00 02/26/25 06:17 10 UNITS Lorazepam 1 mg Q8HPRN PRN PO 02/23/25 14:15 02/26/25 08:50 1 MG Nicotine 1 patch DAILY TD 02/23/25 14:48 02/26/25 08:52 1 PATCH Hydralazine HCl 10 mg Q6HPRN IV 02/24/25 12:00 02/26/25 12:27 10 MG Vancomycin HCl 0 ml @ 0 mls/hr UD IV 02/26/25 10:30 Meropenem 50 ml @ 17 mls/hr Q12HR IV 02/26/25 22:00 Acetaminophen/ Hydrocodone Bitart 1 tab Q4HPRN PRN PO 02/26/25 10:30 02/26/25 12:14 1 TAB Magnesium Sulfate/ Dextrose 100 ml @ 100 mls/hr Q1HR IV 02/26/25 15:00 02/26/25 16:59 Enoxaparin Sodium 40 mg DAILY SC 02/27/25 10:00 Laboratory Results Laboratory Tests 02/26/25 09:55 Chemistry Test 02/26/25 09:55 Albumin 2.9 g/dL (3.2-4.8) L Calcium Level 9.2 mg/dL (8.7-10.4) Magnesium Level 1.9 mg/dL (1.6-2.6) Total Protein 5.4 g/dL (5.7-8.2) L LFT Test 02/26/25 09:55 Alanine Aminotransferase (ALT) 9 U/L (7-40) Alkaline Phosphatase 227 U/L (46-116) H Aspartate Amino Transferase (AST) 11 U/L (13-40) L Total Bilirubin < 0.2 mg/dL (0.2-1.0) L Urinalysis Test 02/19/25 17:27 Urine Color Colorless (Yellow) Urine Clarity Clear (Clear) Urine pH 6.5 (5.0-9.0) Urine Specific [place] 1.008 (1.001-1.035) Urine Protein 2+ (Negative) H Urine Ketones 1+ (Negative) H Urine Blood 1+ /uL (Negative) H Urine Nitrite Negative (Negative) Urine Bilirubin Negative (Negative) Urine Urobilinogen Normal mg/dL (Negative) Urine Leukocyte Esterase Negative /uL (Negative) Urine RBC 6 /hpf (0 - 4) Urine Microscopic WBC 2 /HPF (0-5) Urine Squamous Epithelial Cells Few /hpf (<5) Urine Bacteria None seen /hpf (None Seen) Urine Glucose 2+ mg/dL (Normal) H Microbiology Microbiology Date/Time Source Procedure Growth Status 02/25/25 12:42 Knee Fluid Gram Stain - Final Resulted 02/25/25 12:42 Knee Fluid Body Fluid Culture - Preliminary Resulted 02/19/25 17:27 Urine - [place] Urine Culture - Final Complete 02/19/25 13:14 Blood Blood Culture - Final NO GROWTH AFTER 5 DAYS OF INCUBATION. Complete Assessment/Plan Assessment/Plan Multiple acute/subacute strokes Left lower extremity cellulitis Rule out left septic knee Hypokalemia Acute kidney injury likely hemodynamically mediated due to vasomotor nephropathy Chronic kidney disease Peripheral vascular disease status post right [id number] amputation 6 months ago Poorly controlled type 2 diabetes Sepsis Hypertension Mixed hyperlipidemia Polysubstance use disorder Diabetic neuropathy Plan IV antibiotics Rocephin Arthrocentesis of the left knee to rule out septic arthritis Aspirin and Lipitor and Lopid Nifedipine Lantus Replace potassium 02/25/2025: Hypokalemia: Replace Left leg and knee infection: Continue antibiotic Radiology for left knee arthrocentesis Monitor closely 02/26/2025: Left leg cellulitis Rule out left knee septic arthritis Hypokalemia Change Rocephin to meropenem IV Continue vancomycin Culture of the synovial fluid is pending Monitor closely The rest of the management will depend on the hospital course Plan discussed with: Patient My Orders Orders - SUKH DUARTE MD Procedure Category Date Status Time Vancomycin Per PHA 02/26/25 In Process Pharmacy 10:30 Meropenem 1gm Ivpb PHA 02/26/25 In Process (Merrem 1gm/ Ns) 22:00 Hydrocodone-Acet PHA 02/26/25 In Process 5/325mg Tab ([place] 10:30 Potassium Chl PHA 02/26/25 In Process 20meq/50ml (Potassium 14:15 Magnesium Sulfate PHA 02/26/25 In Process 1gm/100ml 15:00 Enoxaparin Sodium PHA 02/27/25 In Process (Lovenox) 10:00 Sodium Chl 0.9% (Ns) PHA 02/26/25 In Process 14:30 Creatinine LAB 02/27/25 Verified 05:00 Vancomycin,Random LAB 02/27/25 Verified 05:00 Date of Service: Feb 26, 2025 Billing Provider: SUKH DUARTE MD Common Visit Codes: [id number] INP/OBS CARE(HIGH) SUKH DUARTE MD Feb 26, 2025 15:36
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
[2025-02-26] MEDS: MEROPENEM 1GM IVPB 50 ML IV SCH (21:24)
--- NOTE | 2025-02-26 23:51 | DVHPN2 ---
Progress Note - Dictate Date Seen: Feb 26, 2025 Medical Necessity Reason Pt with a Central, PICC or Fol: Yes The following are medically ne: [place] Catheter Subjective Patient was seen and evaluated in follow up. Sitter is at bedside. Patient is complaining of left knee pain. Patient continues to reports feelings of depression. Denies any SI/HI. WBC 14.5, K 2.8, CL 108, BUN 46, BURLAPPER 1.78. Telemetry reviewed. vital signs Vital Sign Date Time Temp Pulse Resp B/P (MAP) Pulse Ox O2 Delivery O2 Flow Rate FiO2 02/26/25 13:06 98.1 101 17 160/93 (115) 96 98.1 02/26/25 08:25 Room Air* 0 21 Total Intake and Output 02/25/25 02/25/25 02/26/25 15:00 23:00 07:00 Intake Total 368 ml 880 ml Output Total 1000 ml Balance 368 ml -120 ml medications Current Medications Medications Dose Ordered Sig/John Route Start Time Stop Time Status Last Admin Dose Admin Ondansetron HCl 4 mg Q4HP PRN IV 02/19/25 13:45 02/22/25 06:32 4 MG Docusate Sodium 100 mg BIDPRN PRN PO 02/19/25 13:45 Acetaminophen 650 mg Q6HP PRN PO 02/19/25 13:45 02/19/25 21:37 650 MG Nitroglycerin 0.4 mg Q5MINP PRN SL 02/19/25 13:45 Diagnostic Test (Pha) 1 strip ACHS 02/19/25 17:00 02/26/25 11:30 1 STRIP Insulin Human Regular HS SC 02/19/25 22:00 02/25/25 22:35 4 UNITS Dextrose 50 ml UD PRN IV 02/19/25 15:45 Duloxetine HCl 30 mg DAILY PO 02/20/25 10:00 02/26/25 08:52 30 MG Gemfibrozil 600 mg BIDAC PO 02/19/25 17:00 02/26/25 06:14 600 MG Lamotrigine 25 mg DAILY PO 02/20/25 10:00 02/26/25 08:52 25 MG Potassium Chloride 100 ml @ 50 mls/hr Q2H IV 02/19/25 23:15 02/20/25 05:14 Cancel Melatonin 10 mg HS PO 02/20/25 22:00 02/25/25 22:30 10 MG Potassium Chloride 100 ml @ 50 mls/hr Q2H IV 02/20/25 07:15 02/20/25 11:14 UNV Atorvastatin Calcium 40 mg HS PO 02/20/25 22:00 02/25/25 22:30 40 MG Aspirin 81 mg DAILY PO 02/21/25 10:00 02/26/25 08:51 81 MG Nifedipine 30 mg DAILY PO 02/21/25 10:00 02/26/25 08:51 30 MG Lactated Ringer's 1,000 ml @ 75 mls/hr [id number] IV 02/21/25 15:45 02/24/25 17:11 75 MLS/HR Insulin Glargine 10 units BID@0700,2200 SC 02/23/25 22:00 02/26/25 06:17 10 UNITS Lorazepam 1 mg Q8HPRN PRN PO 02/23/25 14:15 02/26/25 08:50 1 MG Nicotine 1 patch DAILY TD 02/23/25 14:48 02/26/25 08:52 1 PATCH Hydralazine HCl 10 mg Q6HPRN IV 02/24/25 12:00 02/26/25 12:27 10 MG Vancomycin HCl 0 ml @ 0 mls/hr UD IV 02/26/25 10:30 Meropenem 50 ml @ 17 mls/hr Q12HR IV 02/26/25 22:00 Acetaminophen/ Hydrocodone Bitart 1 tab Q4HPRN PRN PO 02/26/25 10:30 02/26/25 12:14 1 TAB objective GENERAL: Awake, alert, oriented. LUNGS: Clear. CARDIOVASCULAR: Heart sounds are good. ABDOMEN: Soft. laboratory and microbiology Laboratory Tests 02/26/25 09:55 Test 02/26/25 09:55 Range/Units Serum Glucose 162 H 74-106 mg/dL Problem List Multiple acute/subacute strokes rule out cardioembolic source. Severe hypokalemia. Acute kidney injury. Hypertension, newly diagnosed. Insulin-dependent diabetes mellitus, HgbA1C 9.9%. Status post right BKA. Dyslipidemia. Cannabinoid/tobacco use. Assessment/Plan Continued all current supportive medical care. Aspirin, Lipitor. IV antibiotics as ordered. Lopid. Nifedipine. Additional plan as per the hospital course. Dietary Evaluation Review Comments: 1) Esau 1 pk BID 2) Refer Dean Of Faculty on DC 3) Continue current plan of care Expected Outcomes/Goals: Pt will meet >75% estimated needs Fu 3-5 days Plan discussed with: Patient YANIRA WINN MD Feb 26, 2025 13:25
[2025-02-27] VITALS (7 sets, daily range): BP systolic 134–152; BP diastolic 69–83; PULSE 90–102; RESP 17–20; TEMP 97–98.2; O2SAT 94–99
[2025-02-27 07:06] LABS: Hemoglobin 9.8 g/dL (12.2-16.2)
[2025-02-27 07:09] LABS: Hematocrit 29.3 % (36.0-46.0); Mean Corpuscular Hemoglobin 27.6 pg (28.0-32.0); Mean Corpuscular Hgb Conc. 33.5 g/dL (32.0-36.0); Mean Corpuscular Volume 82.4 fL (80.0-100.0); Platelet Count (auto) 500 10^3/uL (140-450); Red Blood Cells 3.55 10^6/uL (4.0-5.20); Red Cell Distribution Width 16.3 % (11.8-14.3); White Blood Cell 12.9 10^3/uL (4.4-10.8)
[2025-02-27 07:16] LABS: Basophils % (manual) 0 (0.0-2.0); Blast Cells 0; Metamyelocytes % 0; Myelocytes % 0; Promyelocytes % 0; Reactive Lymphocytes 0
[2025-02-27 07:17] LABS: Alanine Aminotransferase 10 U/L (7-40); Anion Gap 9 (5-15); Calcium 9.4 mg/dL (8.7-10.4); Carbon Dioxide 21 mmol/L (20-31); Magnesium 2.4 mg/dL (1.6-2.6); Sodium 139 mmol/L (136-145)
[2025-02-27 07:26] LABS: Chloride 109 mmol/L (98-107); Glucose 66 mg/dL (74-106); Potassium 3.2 mmol/L (3.5-5.1)
[2025-02-27 07:29] LABS: Albumin 2.9 g/dL (3.2-4.8); Alkaline Phosphatase 205 U/L (46-116); Aspartate Aminotransferase 11 U/L (13-40); Bilirubin, Total < 0.2 mg/dL (0.2-1.0); Blood Urea Nitrogen 56 mg/dL (9-23); Total Protein 5.6 g/dL (5.7-8.2)
[2025-02-27 08:21] LABS: Band Neutrophils % (manual) 10; Eosinophils % (manual) 2 (0-7); Lymphocytes % (manual) 23 (10.0-50.0); Monocytes % (manual) 3 (0-12); Platelet Estimate Increased
[2025-02-27] MEDS: ENOXAPARIN SOD 40 MG/0.4 ML SYRINGE SC SCH (08:30)
[2025-02-27] MEDS: POTASSIUM CHL 20 Meq TABLET PO ONE (09:45)
--- NOTE | 2025-02-27 11:13 | DVHPN2 ---
Subjective The erythema and edema are getting better Synovial fluid culture is negative so far Reviewed: Care Plan, H&P, Labs, Medications, Previous Orders, Radiology, Other (Consultations) Changes from previous H/P or p: Changes Objective Vitals Vital Signs Date Time Temp Pulse Resp B/P (MAP) Pulse Ox O2 Delivery O2 Flow Rate FiO2 02/27/25 09:00 98.2 94 18 152/83 (106) 99 98.2 02/27/25 08:00 Room Air* 0 21 Intake/Output Intake and Output 02/27/25 07:00 Intake Total 2050 ml Output Total 1650 ml Balance 400 ml Intake Oral 1600 ml IV Total 450 ml Output Urine Total 1650 ml General Appearance: Alert, Oriented X3, Cooperative, No acute distress HEENT: Atraumatic Lungs: Clear to auscultation, Normal air movement Cardiovascular: Regular rate, Normal S1, Normal S2 Abdomen: Normal bowel sounds, Soft, No tenderness Extremities: Other (Right BKA; decreasing swollen/tender/red left upper extremity; decreasing swollen/tender/red left knee; multiple unstageable ulcers over left foot) Neuro: Normal speech, Other (Strength 3/5 in the left upper and lower extremity) Psych/Mental Status: Mental status NL, Mood NL Medications Current Medications Medications Dose Ordered Sig/John Route Start Time Stop Time Status Last Admin Dose Admin Ondansetron HCl 4 mg Q4HP PRN IV 02/19/25 13:45 02/22/25 06:32 4 MG Docusate Sodium 100 mg BIDPRN PRN PO 02/19/25 13:45 Acetaminophen 650 mg Q6HP PRN PO 02/19/25 13:45 02/19/25 21:37 650 MG Nitroglycerin 0.4 mg Q5MINP PRN SL 02/19/25 13:45 Diagnostic Test (Pha) 1 strip ACHS 02/19/25 17:00 02/27/25 06:35 1 STRIP Dextrose 50 ml UD PRN IV 02/19/25 15:45 Duloxetine HCl 30 mg DAILY PO 02/20/25 10:00 02/27/25 08:28 30 MG Gemfibrozil 600 mg BIDAC PO 02/19/25 17:00 02/27/25 06:33 600 MG Lamotrigine 25 mg DAILY PO 02/20/25 10:00 02/27/25 08:25 25 MG Potassium Chloride 100 ml @ 50 mls/hr Q2H IV 02/19/25 23:15 02/20/25 05:14 Cancel Melatonin 10 mg HS PO 02/20/25 22:00 02/26/25 21:25 10 MG Potassium Chloride 100 ml @ 50 mls/hr Q2H IV 02/20/25 07:15 02/20/25 11:14 UNV Atorvastatin Calcium 40 mg HS PO 02/20/25 22:00 02/26/25 21:25 40 MG Aspirin 81 mg DAILY PO 02/21/25 10:00 02/27/25 08:29 81 MG Nifedipine 30 mg DAILY PO 02/21/25 10:00 02/27/25 08:28 30 MG Lactated Ringer's 1,000 ml @ 75 mls/hr [id number] IV 02/21/25 15:45 02/26/25 15:45 75 MLS/HR Insulin Glargine 10 units BID@0700,2200 SC 02/23/25 22:00 02/26/25 21:43 10 UNITS Lorazepam 1 mg Q8HPRN PRN PO 02/23/25 14:15 02/26/25 08:50 1 MG Nicotine 1 patch DAILY TD 02/23/25 14:48 02/27/25 08:30 1 PATCH Hydralazine HCl 10 mg Q6HPRN IV 02/24/25 12:00 02/26/25 12:27 10 MG Vancomycin HCl 0 ml @ 0 mls/hr UD IV 02/26/25 10:30 Meropenem 50 ml @ 17 mls/hr Q12HR IV 02/26/25 22:00 02/27/25 08:20 17 MLS/HR Acetaminophen/ Hydrocodone Bitart 1 tab Q4HPRN PRN PO 02/26/25 10:30 02/27/25 08:29 1 TAB Enoxaparin Sodium 40 mg DAILY SC 02/27/25 10:00 02/27/25 08:30 40 MG Insulin Human Regular HS SC 02/27/25 22:00 Laboratory Results Laboratory Tests 02/27/25 06:29 Chemistry Test 02/27/25 06:29 Albumin 2.9 g/dL (3.2-4.8) L Calcium Level 9.4 mg/dL (8.7-10.4) Magnesium Level 2.4 mg/dL (1.6-2.6) Total Protein 5.6 g/dL (5.7-8.2) L LFT Test 02/27/25 06:29 Alanine Aminotransferase (ALT) 10 U/L (7-40) Alkaline Phosphatase 205 U/L (46-116) H Aspartate Amino Transferase (AST) 11 U/L (13-40) L Total Bilirubin < 0.2 mg/dL (0.2-1.0) L Urinalysis Test 02/19/25 17:27 Urine Color Colorless (Yellow) Urine Clarity Clear (Clear) Urine pH 6.5 (5.0-9.0) Urine Specific [place] 1.008 (1.001-1.035) Urine Protein 2+ (Negative) H Urine Ketones 1+ (Negative) H Urine Blood 1+ /uL (Negative) H Urine Nitrite Negative (Negative) Urine Bilirubin Negative (Negative) Urine Urobilinogen Normal mg/dL (Negative) Urine Leukocyte Esterase Negative /uL (Negative) Urine RBC 6 /hpf (0 - 4) Urine Microscopic WBC 2 /HPF (0-5) Urine Squamous Epithelial Cells Few /hpf (<5) Urine Bacteria None seen /hpf (None Seen) Urine Glucose 2+ mg/dL (Normal) H Microbiology Microbiology Date/Time Source Procedure Growth Status 02/25/25 12:42 Knee Fluid Gram Stain - Final Resulted 02/25/25 12:42 Knee Fluid Body Fluid Culture - Preliminary Resulted 02/19/25 17:27 Urine - [place] Urine Culture - Final Complete 02/19/25 13:14 Blood Blood Culture - Final NO GROWTH AFTER 5 DAYS OF INCUBATION. Complete Assessment/Plan Assessment/Plan Multiple acute/subacute strokes Left lower extremity cellulitis Rule out left septic knee Hypokalemia Acute kidney injury likely hemodynamically mediated due to vasomotor nephropathy Chronic kidney disease Peripheral vascular disease status post right [id number] amputation 6 months ago Poorly controlled type 2 diabetes Sepsis Hypertension Mixed hyperlipidemia Polysubstance use disorder Diabetic neuropathy Plan IV antibiotics Rocephin Arthrocentesis of the left knee to rule out septic arthritis Aspirin and Lipitor and Lopid Nifedipine Lantus Replace potassium 02/25/2025: Hypokalemia: Replace Left leg and knee infection: Continue antibiotic Radiology for left knee arthrocentesis Monitor closely 02/26/2025: Left leg cellulitis Rule out left knee septic arthritis Hypokalemia Change Rocephin to meropenem IV Continue vancomycin Culture of the synovial fluid is pending Monitor closely The rest of the management will depend on the hospital course 02/27/2025: Continue the current management of IV antibiotics The left leg is improving The left knee arthrocentesis fluid culture is negative Monitor closely Hypokalemia: Replace as needed Plan discussed with: Patient, Other My Orders Orders - SUKH DUARTE MD Procedure Category Date Status Time Enoxaparin Sodium PHA 02/27/25 In Process (Lovenox) 10:00 Vancomycin,Random LAB 02/28/25 Verified 04:00 Basic Metabolic Panel LAB 02/28/25 Verified 04:00 Vancomycin Per HAYDER 02/27/25 In Process [facility]acy [facility] 09:58 Date of Service: Feb 27, 2025 Billing Provider: SUKH DUARTE MD Common Visit Codes: [id number] INP/OBS CARE(HIGH) SUKH DUARTE MD Feb 27, 2025 11:13
[2025-02-27 13:07] LABS: Cytoplasmic (C-ANCA) <1:20 titer (Neg:<1:20); Perinuclear (P-ANCA) <1:20 titer (Neg:<1:20)
[2025-02-27] MEDS: InsuLIN REG 1unit/0.01ml Soln (100units/ml) SC SCH (22:01)
--- NOTE | 2025-02-27 23:53 | DVHPN2 ---
Progress Note - Dictate Date Seen: Feb 27, 2025 Medical Necessity Reason Pt with a Central, PICC or Fol: Yes The following are medically ne: Almaraz Catheter Subjective Patient was seen and evaluated in follow up. Sitter at bedside. Patient is complaining of left knee pain. Patient appears tearful. WBC 12.9, HGB 9.8, HCT 29.3, K 3.2, CL 109, BUN 56, OUTBOARD SYSTEM OPERATOR 1.75. Telemetry reviewed. vital signs Vital Sign Date Time Temp Pulse Resp B/P (MAP) Pulse Ox O2 Delivery O2 Flow Rate FiO2 02/27/25 11:19 152/83 02/27/25 09:00 98.2 94 18 99 98.2 02/27/25 08:00 Room Air* 0 21 Total Intake and Output 02/26/25 02/26/25 02/27/25 15:00 23:00 07:00 Intake Total 50 ml 1700 ml 300 ml Output Total 700 ml 950 ml Balance 50 ml 1000 ml -650 ml medications Current Medications Medications Dose Ordered Sig/John Route Start Time Stop Time Status Last Admin Dose Admin Ondansetron HCl 4 mg Q4HP PRN IV 02/19/25 13:45 02/22/25 06:32 4 MG Docusate Sodium 100 mg BIDPRN PRN PO 02/19/25 13:45 Acetaminophen 650 mg Q6HP PRN PO 02/19/25 13:45 02/19/25 21:37 650 MG Nitroglycerin 0.4 mg Q5MINP PRN SL 02/19/25 13:45 Diagnostic Test (Pha) 1 strip ACHS 02/19/25 17:00 02/27/25 11:30 1 STRIP Dextrose 50 ml UD PRN IV 02/19/25 15:45 Duloxetine HCl 30 mg DAILY PO 02/20/25 10:00 02/27/25 08:28 30 MG Gemfibrozil 600 mg BIDAC PO 02/19/25 17:00 02/27/25 06:33 600 MG Lamotrigine 25 mg DAILY PO 02/20/25 10:00 02/27/25 08:25 25 MG Potassium Chloride 100 ml @ 50 mls/hr Q2H IV 02/19/25 23:15 02/20/25 05:14 Cancel Melatonin 10 mg HS PO 02/20/25 22:00 02/26/25 21:25 10 MG Potassium Chloride 100 ml @ 50 mls/hr Q2H IV 02/20/25 07:15 02/20/25 11:14 UNV Atorvastatin Calcium 40 mg HS PO 02/20/25 22:00 02/26/25 21:25 40 MG Aspirin 81 mg DAILY PO 02/21/25 10:00 02/27/25 08:29 81 MG Nifedipine 30 mg DAILY PO 02/21/25 10:00 02/27/25 08:28 30 MG Lactated Ringer's 1,000 ml @ 75 mls/hr [id number] IV 02/21/25 15:45 02/26/25 15:45 75 MLS/HR Insulin Glargine 10 units BID@0700,2200 SC 02/23/25 22:00 02/26/25 21:43 10 UNITS Lorazepam 1 mg Q8HPRN PRN PO 02/23/25 14:15 02/27/25 11:20 1 MG Nicotine 1 patch DAILY TD 02/23/25 14:48 02/27/25 08:30 1 PATCH Hydralazine HCl 10 mg Q6HPRN IV 02/24/25 12:00 02/27/25 11:19 10 MG Vancomycin HCl 0 ml @ 0 mls/hr UD IV 02/26/25 10:30 Meropenem 50 ml @ 17 mls/hr Q12HR IV 02/26/25 22:00 02/27/25 08:20 17 MLS/HR Acetaminophen/ Hydrocodone Bitart 1 tab Q4HPRN PRN PO 02/26/25 10:30 02/27/25 08:29 1 TAB Enoxaparin Sodium 40 mg DAILY SC 02/27/25 10:00 02/27/25 08:30 40 MG Insulin Human Regular HS SC 02/27/25 22:00 objective GENERAL: Awake, alert, oriented. LUNGS: Clear. CARDIOVASCULAR: Heart sounds are good. ABDOMEN: Soft. laboratory and microbiology Laboratory Tests 02/27/25 06:29 Test 02/27/25 06:29 Range/Units Serum Glucose 66 L 74-106 mg/dL Problem List Multiple acute/subacute strokes rule out cardioembolic source. Severe hypokalemia. Acute kidney injury. Hypertension, newly diagnosed. Insulin-dependent diabetes mellitus, HgbA1C 9.9%. Status post right BKA. Dyslipidemia. Cannabinoid/tobacco use. Assessment/Plan Continued all current supportive medical care. Aspirin, Lipitor. IV antibiotics as ordered. Lopid. Nifedipine. Additional plan as per the hospital course. Dietary Evaluation Review Comments: 1) Esau 1 pk BID 2) Refer Radiator Specialist on DC 3) Continue current plan of care Expected Outcomes/Goals: Pt will meet >75% estimated needs Fu 3-5 days Plan discussed with: Patient YANIRA WINN MD Feb 27, 2025 13:19
[2025-02-28] VITALS (9 sets, daily range): BP systolic 126–150; BP diastolic 65–92; PULSE 61–105; RESP 16–20; TEMP 97–98.3; O2SAT 93–97
[2025-02-28 07:02] LABS: Basophils # (auto) 0.1 10 ^3/uL (0-0.2); Eosinophils # (auto) 0.1 10 ^3/uL (0-0.8); Eosinophils % (auto) 1.2 % (0.0-7.0)
[2025-02-28 07:11] LABS: Basophils % (auto) 0.6 % (0.0-2.0); Hematocrit 29.2 % (36.0-46.0); Lymphocytes # (auto) 0.7 10 ^3/uL (0.4-5.4); Lymphocytes % (auto) 6.6 % (10.0-50.0); Mean Corpuscular Hemoglobin 28.5 pg (28.0-32.0); Mean Corpuscular Hgb Conc. 34.2 g/dL (32.0-36.0); Mean Corpuscular Volume 83.2 fL (80.0-100.0); Monocytes # (auto) 0.5 10 ^3/uL (0-1.3); Monocytes % (auto) 4.9 % (0.0-12.0); Neutrophils # (auto) 9.8 10 ^3/uL (1.6-8.6); Neutrophils % (auto) 86.7 % (37.0-80.0); Platelet Count (auto) 527 10^3/uL (140-450); Red Blood Cells 3.51 10^6/uL (4.0-5.20); Red Cell Distribution Width 16.8 % (11.8-14.3); White Blood Cell 11.3 10^3/uL (4.4-10.8)
[2025-02-28 07:24] LABS: Anion Gap 8 (5-15); Aspartate Aminotransferase 13 U/L (13-40); BUN/Creatinine Ratio 34.3 (10.0-20.0); Calcium 9.4 mg/dL (8.7-10.4); Carbon Dioxide 20 mmol/L (20-31); Chloride 107 mmol/L (98-107); Magnesium 2.3 mg/dL (1.6-2.6); Potassium 3.9 mmol/L (3.5-5.1)
[2025-02-28 07:29] LABS: Alanine Aminotransferase < 9 U/L (7-40); Alkaline Phosphatase 214 U/L (46-116); Bilirubin, Total < 0.2 mg/dL (0.2-1.0); Blood Urea Nitrogen 60 mg/dL (9-23); Glucose 225 mg/dL (74-106); Sodium 135 mmol/L (136-145); Total Protein 5.5 g/dL (5.7-8.2)
[2025-02-28] MEDS: VANCOMYCIN 500mg/100mL 100 ML IV ONE (13:44)
[2025-02-28] MEDS: InsuLIN REG 1unit/0.01ml Soln (100units/ml) SC SCH (17:57)
[2025-02-28 20:07] LABS: Antimyeloperoxidase (MPO) Ab <0.2 units (0.0-0.9); Antiproteinase 3 (PR-3) Ab <0.2 units (0.0-0.9)
--- NOTE | 2025-02-28 23:35 | DVHPN2 ---
Progress Note - Dictate Date Seen: Feb 28, 2025 Medical Necessity Reason Pt with a Central, PICC or Fol: Yes The following are medically ne: Almaraz Catheter Subjective Patient was seen and evaluated in follow up. JIG MILL OPERATOR sitter at bedside. Left lower extremity pain, swelling and erythema are improving. The left knee arthrocentesis fluid culture is negative. WBC 11.3, HCT 29.2, NA 135, BUN 60, METAL WORKER 1.75, GLUC 230. Telemetry reviewed. vital signs Vital Sign Date Time Temp Pulse Resp B/P (MAP) Pulse Ox O2 Delivery O2 Flow Rate FiO2 02/28/25 10:38 147/92 02/28/25 09:00 97.7 100 16 96 97.7 02/27/25 20:00 Room Air* 0 21 Total Intake and Output 02/27/25 02/27/25 02/28/25 14:59 22:59 06:59 Intake Total 286 ml 1014 ml 550 ml Output Total 900 ml 1200 ml Balance 286 ml 114 ml -650 ml medications Current Medications Medications Dose Ordered Sig/John Route Start Time Stop Time Status Last Admin Dose Admin Ondansetron HCl 4 mg Q4HP PRN IV 02/19/25 13:45 02/22/25 06:32 4 MG Docusate Sodium 100 mg BIDPRN PRN PO 02/19/25 13:45 Acetaminophen 650 mg Q6HP PRN PO 02/19/25 13:45 02/19/25 21:37 650 MG Nitroglycerin 0.4 mg Q5MINP PRN SL 02/19/25 13:45 Diagnostic Test (Pha) 1 strip ACHS 02/19/25 17:00 02/28/25 06:42 1 STRIP Dextrose 50 ml UD PRN IV 02/19/25 15:45 Duloxetine HCl 30 mg DAILY PO 02/20/25 10:00 02/28/25 10:38 30 MG Gemfibrozil 600 mg BIDAC PO 02/19/25 17:00 02/28/25 06:35 600 MG Lamotrigine 25 mg DAILY PO 02/20/25 10:00 02/28/25 10:37 25 MG Potassium Chloride 100 ml @ 50 mls/hr Q2H IV 02/19/25 23:15 02/20/25 05:14 Cancel Melatonin 10 mg HS PO 02/20/25 22:00 02/27/25 21:51 10 MG Potassium Chloride 100 ml @ 50 mls/hr Q2H IV 02/20/25 07:15 02/20/25 11:14 UNV Atorvastatin Calcium 40 mg HS PO 02/20/25 22:00 02/27/25 21:51 40 MG Aspirin 81 mg DAILY PO 02/21/25 10:00 02/28/25 10:38 81 MG Nifedipine 30 mg DAILY PO 02/21/25 10:00 02/28/25 10:38 30 MG Lactated Ringer's 1,000 ml @ 75 mls/hr [id number] IV 02/21/25 15:45 02/27/25 19:30 75 MLS/HR Insulin Glargine 10 units BID@0700,2200 SC 02/23/25 22:00 02/28/25 06:35 10 UNITS Lorazepam 1 mg Q8HPRN PRN PO 02/23/25 14:15 02/27/25 22:04 1 MG Nicotine 1 patch DAILY TD 02/23/25 14:48 02/28/25 10:42 1 PATCH Hydralazine HCl 10 mg Q6HPRN IV 02/24/25 12:00 02/28/25 06:37 10 MG Vancomycin HCl 0 ml @ 0 mls/hr UD IV 02/26/25 10:30 Meropenem 50 ml @ 17 mls/hr Q12HR IV 02/26/25 22:00 02/28/25 10:34 17 MLS/HR Acetaminophen/ Hydrocodone Bitart 1 tab Q4HPRN PRN PO 02/26/25 10:30 02/27/25 21:51 1 TAB Enoxaparin Sodium 40 mg DAILY SC 02/27/25 10:00 02/28/25 10:39 40 MG Insulin Human Regular HS SC 02/27/25 22:00 02/27/25 22:01 6 UNITS objective GENERAL: Awake, alert, oriented. LUNGS: Clear. CARDIOVASCULAR: Heart sounds are good. ABDOMEN: Soft. laboratory and microbiology Laboratory Tests 02/28/25 06:02 Test 02/28/25 06:02 Range/Units Serum Glucose 225 H 74-106 mg/dL Problem List Multiple acute/subacute strokes rule out cardioembolic source. Severe hypokalemia. Acute kidney injury. Hypertension, newly diagnosed. Insulin-dependent diabetes mellitus, HgbA1C 9.9%. Status post right BKA. Dyslipidemia. Cannabinoid/tobacco use. Assessment/Plan Continued all current supportive medical care. Aspirin, Lipitor. IV antibiotics as ordered. Lopid. Nifedipine. Additional plan as per the hospital course. Dietary Evaluation Review Comments: 1) Esau 1 pk BID 2) Refer Optical Instrument Inspector on DC 3) Continue current plan of care Expected Outcomes/Goals: Pt will meet >75% estimated needs Fu 3-5 days Plan discussed with: Patient YANIRA WINN MD Feb 28, 2025 11:40
[2025-03-01] VITALS (8 sets, daily range): BP systolic 121–146; BP diastolic 63–87; PULSE 92–105; RESP 17–22; TEMP 97.6–99.5; O2SAT 94–97
[2025-03-01 05:58] LABS: Hemoglobin 9.1 g/dL (12.2-16.2); Red Blood Cells 3.24 10^6/uL (4.0-5.20)
[2025-03-01 06:00] LABS: Mean Corpuscular Hemoglobin 27.9 pg (28.0-32.0); Mean Corpuscular Hgb Conc. 33.6 g/dL (32.0-36.0); Mean Corpuscular Volume 83.1 fL (80.0-100.0); Platelet Count (auto) 522 10^3/uL (140-450); Red Cell Distribution Width 16.3 % (11.8-14.3); White Blood Cell 11.6 10^3/uL (4.4-10.8)
[2025-03-01 06:02] LABS: Basophils % (manual) 0 (0.0-2.0); Blast Cells 0; Metamyelocytes % 0; Promyelocytes % 0
[2025-03-01 06:51] LABS: Band Neutrophils % (manual) 2; Eosinophils % (manual) 2 (0-7); Lymphocytes % (manual) 14 (10.0-50.0); Monocytes % (manual) 3 (0-12); Myelocytes % 1; Reactive Lymphocytes 1
[2025-03-01 06:52] LABS: Anisocytosis Slight; Platelet Estimate Increased
--- NOTE | 2025-03-01 11:11 | DVHPN2 ---
Subjective Patient reports having depression, denies suicidal ideation. Requesting to go outside with her . Reviewed: Care Plan, H&P, Labs, Medications, Previous Orders, Radiology, Other (Consultations) Changes from previous H/P or p: Changes General: Per HPI Objective Vitals Vital Signs Date Time Temp Pulse Resp B/P (MAP) Pulse Ox O2 Delivery O2 Flow Rate FiO2 03/01/25 09:12 136/75 03/01/25 09:00 97.8 98 21 97 97.8 02/28/25 20:00 Room Air* 0 21 Intake/Output Intake and Output 03/01/25 07:00 Intake Total 1963 ml Output Total 3000 ml Balance -1037 ml Intake Oral 1863 ml IV Total 100 ml Output Urine Total 3000 ml General Appearance: Alert, Oriented X3, Cooperative, No acute distress HEENT: Atraumatic Lungs: Clear to auscultation, Normal air movement Cardiovascular: Regular rate, Normal S1, Normal S2 Abdomen: Normal bowel sounds, Soft, No tenderness Extremities: Other (Left knee continues to have severe swelling and redness.) Neuro: Normal speech, Other (Strength 3/5 in the left upper and lower extremity) Skin: Wounds (See nurse notes and pictures) Psych/Mental Status: Mental status NL, Mood NL Medications Current Medications Medications Dose Ordered Sig/John Route Start Time Stop Time Status Last Admin Dose Admin Ondansetron HCl 4 mg Q4HP PRN IV 02/19/25 13:45 02/22/25 06:32 4 MG Docusate Sodium 100 mg BIDPRN PRN PO 02/19/25 13:45 Acetaminophen 650 mg Q6HP PRN PO 02/19/25 13:45 02/19/25 21:37 650 MG Nitroglycerin 0.4 mg Q5MINP PRN SL 02/19/25 13:45 Diagnostic Test (Pha) 1 strip ACHS 02/19/25 17:00 03/01/25 07:05 1 STRIP Dextrose 50 ml UD PRN IV 02/19/25 15:45 Duloxetine HCl 30 mg DAILY PO 02/20/25 10:00 03/01/25 09:10 30 MG Gemfibrozil 600 mg BIDAC PO 02/19/25 17:00 03/01/25 06:58 600 MG Lamotrigine 25 mg DAILY PO 02/20/25 10:00 03/01/25 09:11 25 MG Potassium Chloride 100 ml @ 50 mls/hr Q2H IV 02/19/25 23:15 02/20/25 05:14 Cancel Melatonin 10 mg HS PO 02/20/25 22:00 02/28/25 21:40 10 MG Potassium Chloride 100 ml @ 50 mls/hr Q2H IV 02/20/25 07:15 02/20/25 11:14 UNV Atorvastatin Calcium 40 mg HS PO 02/20/25 22:00 02/28/25 21:39 40 MG Aspirin 81 mg DAILY PO 02/21/25 10:00 03/01/25 09:10 81 MG Nifedipine 30 mg DAILY PO 02/21/25 10:00 03/01/25 09:12 30 MG Lactated Ringer's 1,000 ml @ 75 mls/hr [id number] IV 02/21/25 15:45 02/28/25 21:42 75 MLS/HR Insulin Glargine 10 units BID@0700,2200 SC 02/23/25 22:00 03/01/25 07:10 10 UNITS Lorazepam 1 mg Q8HPRN PRN PO 02/23/25 14:15 02/28/25 21:38 1 MG Nicotine 1 patch DAILY TD 02/23/25 14:48 03/01/25 09:13 1 PATCH Hydralazine HCl 10 mg Q6HPRN IV 02/24/25 12:00 03/01/25 07:00 10 MG Vancomycin HCl 0 ml @ 0 mls/hr UD IV 02/26/25 10:30 Meropenem 50 ml @ 17 mls/hr Q12HR IV 02/26/25 22:00 03/01/25 09:10 17 MLS/HR Acetaminophen/ Hydrocodone Bitart 1 tab Q4HPRN PRN PO 02/26/25 10:30 03/01/25 09:11 1 TAB Enoxaparin Sodium 40 mg DAILY SC 02/27/25 10:00 03/01/25 09:12 40 MG Insulin Human Regular ACHS SC 02/28/25 17:00 02/28/25 21:35 3 UNITS Laboratory Results Laboratory Tests 02/28/25 06:02 03/01/25 04:29 Urinalysis Test 02/19/25 17:27 Urine Color Colorless (Yellow) Urine Clarity Clear (Clear) Urine pH 6.5 (5.0-9.0) Urine Specific [place] 1.008 (1.001-1.035) Urine Protein 2+ (Negative) H Urine Ketones 1+ (Negative) H Urine Blood 1+ /uL (Negative) H Urine Nitrite Negative (Negative) Urine Bilirubin Negative (Negative) Urine Urobilinogen Normal mg/dL (Negative) Urine Leukocyte Esterase Negative /uL (Negative) Urine RBC 6 /hpf (0 - 4) Urine Microscopic WBC 2 /HPF (0-5) Urine Squamous Epithelial Cells Few /hpf (<5) Urine Bacteria None seen /hpf (None Seen) Urine Glucose 2+ mg/dL (Normal) H Microbiology Microbiology Date/Time Source Procedure Growth Status 02/25/25 12:42 Knee Fluid Gram Stain - Final Complete 02/25/25 12:42 Knee Fluid Body Fluid Culture - Final Complete 02/19/25 17:27 Urine - [place] Urine Culture - Final Complete 02/19/25 13:14 Blood Blood Culture - Final NO GROWTH AFTER 5 DAYS OF INCUBATION. Complete Labs and/or images reviewed: Labs reviewed by me, Image(s) reviewed by me Assessment/Plan Assessment/Plan Impression: Multiple acute/subacute strokes Left lower extremity cellulitis Rule out left septic knee Hypokalemia Acute kidney injury likely hemodynamically mediated due to vasomotor nephropathy Chronic kidney disease Peripheral vascular disease status post right [id number] amputation 6 months ago Poorly controlled type 2 diabetes Sepsis Hypertension Mixed hyperlipidemia Polysubstance use disorder Diabetic neuropathy -? Suicidal ideation Plan: -covering for Dr. Hoyos, Primary hospitalist -persistent erythema to left knee as well as swelling despite having recent joint aspiration. -repeat left knee ultrasound for fluid accumulation -continue antibiotic therapy with Merrem panel -repeat psychiatry consultation given patient states she was no longer with suicidal ideation only really depressed -continue antidepressants -consider MRI of the left knee if effusion returned -MAGALIS ruled out endocarditis, residual thrombus -continue anticoagulation -repeat labs in a.m. Total time spent with patient discussing and formulating plan of care: 35 minutes. This medical document was created using an electronic medical record system with [employer] system. Although this document has been carefully reviewed, there may still be some phonetic and typographical errors. These areas are purely typographical due to imperfections of the software programs, and do not reflect any compromise in the patient's medical care. Plan discussed with: Patient, Other (RN) My Orders Orders - JUSTIN BONILLA NP Procedure Category Date Status Time Ac Mild Insulin Scale HAYDER 02/28/25 In Process (Not Rx) 13:01 Insulin R (Human) PHA 02/28/25 In Process (Insulin R) 17:00 Left Lower Extremity US 03/01/25 Verified Ultrasoun 10:56 *Tele Psych Consult CONS 03/01/25 Verified 10:56 Beta Hcg, Quantitative LAB 03/02/25 Verified 04:00 Date of Service: Mar 01, 2025 Billing Provider: JUSTIN BONILLA NP Common Visit Codes: [id number] INP/OBS CARE(HIGH) JUSTIN BONILLA NP Mar 01, 2025 11:10
--- NOTE | 2025-03-01 14:41 | DVH ---
Exam: US LEFT LOWER EXTREMITY ULTRASOUN Date: 03/01/2025 11:56 AM Clinical History: Recurrent knee effusion Comparison: US LEFT LOWER EXTREMITY ULTRASOUN on DOS: 02/25/25 Technique: Targeted sonographic evaluation of the soft tissues of the left knee was obtained utilizing grayscale and color Doppler imaging. Findings: There is a 3.4 x 1.1 x 2.8 cm anechoic lesion in the popliteal fossa of the left knee consistent with a palacios's cyst or popliteal cyst. IMPRESSION: 1. 3.4 x 1.1 x 2.8 cm anechoic avascular lesion in the popliteal region of the left knee consistent w ith a Palacios's cyst or popliteal cyst
--- NOTE | 2025-03-01 16:44 | DVHPN2 ---
Progress Note - Dictate Date Seen: Mar 01, 2025 Medical Necessity Reason Pt with a Central, PICC or Fol: Yes The following are medically ne: Almaraz Catheter Subjective Patient was seen and evaluated in follow up. No overnight events. Sitter at bedside. Patient reports feeling depressed. She denies any SI/HI. WBC 11.6, HGB 9.1, HCT 27, ENGINEER INTERNSHIP 1.88. Telemetry reviewed. vital signs Vital Sign Date Time Temp Pulse Resp B/P (MAP) Pulse Ox O2 Delivery O2 Flow Rate FiO2 03/01/25 09:12 136/75 03/01/25 09:00 97.8 98 21 97 97.8 02/28/25 20:00 Room Air* 0 21 Total Intake and Output 02/28/25 02/28/25 03/01/25 15:00 23:00 07:00 Intake Total 50 ml 1363 ml 550 ml Output Total 2200 ml 800 ml Balance 50 ml -837 ml -250 ml medications Current Medications Medications Dose Ordered Sig/John Route Start Time Stop Time Status Last Admin Dose Admin Ondansetron HCl 4 mg Q4HP PRN IV 02/19/25 13:45 02/22/25 06:32 4 MG Docusate Sodium 100 mg BIDPRN PRN PO 02/19/25 13:45 Acetaminophen 650 mg Q6HP PRN PO 02/19/25 13:45 02/19/25 21:37 650 MG Nitroglycerin 0.4 mg Q5MINP PRN SL 02/19/25 13:45 Diagnostic Test (Pha) 1 strip ACHS 02/19/25 17:00 03/01/25 07:05 1 STRIP Dextrose 50 ml UD PRN IV 02/19/25 15:45 Duloxetine HCl 30 mg DAILY PO 02/20/25 10:00 03/01/25 09:10 30 MG Gemfibrozil 600 mg BIDAC PO 02/19/25 17:00 03/01/25 06:58 600 MG Lamotrigine 25 mg DAILY PO 02/20/25 10:00 03/01/25 09:11 25 MG Potassium Chloride 100 ml @ 50 mls/hr Q2H IV 02/19/25 23:15 02/20/25 05:14 Cancel Melatonin 10 mg HS PO 02/20/25 22:00 02/28/25 21:40 10 MG Potassium Chloride 100 ml @ 50 mls/hr Q2H IV 02/20/25 07:15 02/20/25 11:14 UNV Atorvastatin Calcium 40 mg HS PO 02/20/25 22:00 02/28/25 21:39 40 MG Aspirin 81 mg DAILY PO 02/21/25 10:00 03/01/25 09:10 81 MG Nifedipine 30 mg DAILY PO 02/21/25 10:00 03/01/25 09:12 30 MG Lactated Ringer's 1,000 ml @ 75 mls/hr [id number] IV 02/21/25 15:45 02/28/25 21:42 75 MLS/HR Insulin Glargine 10 units BID@0700,2200 SC 02/23/25 22:00 03/01/25 07:10 10 UNITS Lorazepam 1 mg Q8HPRN PRN PO 02/23/25 14:15 02/28/25 21:38 1 MG Nicotine 1 patch DAILY TD 02/23/25 14:48 03/01/25 09:13 1 PATCH Hydralazine HCl 10 mg Q6HPRN IV 02/24/25 12:00 03/01/25 07:00 10 MG Vancomycin HCl 0 ml @ 0 mls/hr UD IV 02/26/25 10:30 Meropenem 50 ml @ 17 mls/hr Q12HR IV 02/26/25 22:00 03/01/25 09:10 17 MLS/HR Acetaminophen/ Hydrocodone Bitart 1 tab Q4HPRN PRN PO 02/26/25 10:30 03/01/25 09:11 1 TAB Enoxaparin Sodium 40 mg DAILY SC 02/27/25 10:00 03/01/25 09:12 40 MG Insulin Human Regular ACHS SC 02/28/25 17:00 02/28/25 21:35 3 UNITS objective GENERAL: Awake, alert, oriented. LUNGS: Clear. CARDIOVASCULAR: Heart sounds are good. ABDOMEN: Soft. laboratory and microbiology Laboratory Tests 03/01/25 04:29 02/28/25 06:02 Test 02/28/25 06:02 Range/Units Serum Glucose 225 H 74-106 mg/dL Problem List Multiple acute/subacute strokes rule out cardioembolic source. Severe hypokalemia. Acute kidney injury. Hypertension, newly diagnosed. Insulin-dependent diabetes mellitus, HgbA1C 9.9%. Status post right BKA. Dyslipidemia. Cannabinoid/tobacco use. Assessment/Plan Continued all current supportive medical care. Hermon for pain management. Aspirin, Lipitor. DVT prophylactics. IV Hydralazine for SBP >16. IV antibiotics as ordered. Nifedipine. Additional plan as per the hospital course. Dietary Evaluation Review Comments: 1) Esau 1 pk BID 2) Refer Wash Tub Machine Operator on DC 3) Continue current plan of care Expected Outcomes/Goals: Pt will meet >75% estimated needs Fu 3-5 days Plan discussed with: Patient YANIRA WINN MD Mar 01, 2025 11:29
[2025-03-02] VITALS (8 sets, daily range): BP systolic 101–148; BP diastolic 53–82; PULSE 81–104; RESP 17–20; TEMP 97.4–98; O2SAT 93–98
--- NOTE | 2025-03-02 05:56 | TELE.CONS ---
PSYCHIATRY REASSESSMENT Date: 03/02/25 0535 S: The patient was seen and evaluated at [facility] via telepsychiatry platform. 54 yr old female admitted for multipe medical problems. She was seen by PMHNP Radha Krishnan on 02/26 and diagnosed with depression and started on duloxetine 30 mg BID and recommended for admission to [facility]. Today, she reported "I'm not doing very well, the pain in my leg has intensified." She said her leg is still very swollen although they drained it once. She noted it still hurts even worse. She reported that she has been taking the cymbalta. She still feels depressed about her leg, but no longer feels suicidal. She said she had the other leg amputated and now the other one is doing poorly. She denied having suicidal ideation, plan or intent. MSE: alert and oriented speech-regular rate, rhythm and volume Mood-"down" Affect-depressed, tearful, congruent. Tht process-linear and goal directed Tht Content- Denied having suicidal and homicidal ideation. Denied auditory or visual hallucinations. No delusions or perseverations noted Insight-fair Judgment-fair Impulse control-fair. Diagnosis: UNSPECIFIED DEPRESSIVE DISORDER F32.A Assessment: This 54 yr old female appears to suffer from depression related to her leg pain. She is no longer suicidal and does not warrant psychiatric hospitalization. She may benefit from pain management consultation and consider starting gabapentin to help reduce pain. Plan: 1. Safety. The patient is a low risk for self harm. 2. Legal-Discontinue 1:1 sitter. 3. Medications- continue duloxetine 30mg BID. Consider starting gabapentin to help reduce pain and anxiety 4. Case discussed with team ASHLEY Perrin. 5. Please contact psychiatry if further follow up or reevaluation is desired. Yes YANG SIMMONS MD Mar 02, 2025 05:56
[2025-03-02 06:52] LABS: Basophils # (auto) 0.1 10 ^3/uL (0-0.2); Eosinophils # (auto) 0.3 10 ^3/uL (0-0.8); Hemoglobin 9.4 g/dL (12.2-16.2); Lymphocytes # (auto) 1.1 10 ^3/uL (0.4-5.4); Red Cell Distribution Width 16.5 % (11.8-14.3)
[2025-03-02 06:54] LABS: Basophils % (auto) 0.8 % (0.0-2.0); Eosinophils % (auto) 2.1 % (0.0-7.0); Hematocrit 28.7 % (36.0-46.0); Lymphocytes % (auto) 9.3 % (10.0-50.0); Mean Corpuscular Hemoglobin 27.2 pg (28.0-32.0); Mean Corpuscular Hgb Conc. 32.8 g/dL (32.0-36.0); Monocytes # (auto) 0.7 10 ^3/uL (0-1.3); Monocytes % (auto) 5.9 % (0.0-12.0); Neutrophils % (auto) 81.9 % (37.0-80.0); Nucleated Red Blood Cells % 0.1 %; Platelet Count (auto) 569 10^3/uL (140-450); Red Blood Cells 3.46 10^6/uL (4.0-5.20); White Blood Cell 12.2 10^3/uL (4.4-10.8)
[2025-03-02] MEDS: GABAPENTIN 100 MG CAP PO SCH (13:52)
--- NOTE | 2025-03-02 13:55 | DVHPN2 ---
Progress Note - Dictate Date Seen: Mar 02, 2025 Medical Necessity Reason Pt with a Central, PICC or Fol: Yes The following are medically ne: [place]maraz Catheter Subjective Patient was seen and evaluated in follow up. Patient complains of LLE pain. Patient states she is not doing very well. WBC 12.2, HGB 9.4, HCT 28.7, VIDEO TAPE DUPLICATOR 1.98. Telemetry reviewed. vital signs Vital Sign Date Time Temp Pulse Resp B/P (MAP) Pulse Ox O2 Delivery O2 Flow Rate FiO2 03/02/25 12:49 97.8 89 17 148/73 (98) 98 97.8 03/01/25 20:00 Room Air* 0 21 Total Intake and Output 03/01/25 03/01/25 03/02/25 15:00 23:00 07:00 Intake Total 50 ml 1144 ml 603 ml Output Total 1250 ml 1025 ml Balance 50 ml -106 ml -422 ml medications Current Medications Medications Dose Ordered Sig/John Route Start Time Stop Time Status Last Admin Dose Admin Ondansetron HCl 4 mg Q4HP PRN IV 02/19/25 13:45 02/22/25 06:32 4 MG Docusate Sodium 100 mg BIDPRN PRN PO 02/19/25 13:45 Acetaminophen 650 mg Q6HP PRN PO 02/19/25 13:45 02/19/25 21:37 650 MG Nitroglycerin 0.4 mg Q5MINP PRN SL 02/19/25 13:45 Diagnostic Test (Pha) 1 strip ACHS 02/19/25 17:00 03/02/25 11:19 1 STRIP Dextrose 50 ml UD PRN IV 02/19/25 15:45 Duloxetine HCl 30 mg DAILY PO 02/20/25 10:00 03/02/25 11:03 30 MG Gemfibrozil 600 mg BIDAC PO 02/19/25 17:00 03/02/25 05:35 600 MG Lamotrigine 25 mg DAILY PO 02/20/25 10:00 03/02/25 11:02 25 MG Potassium Chloride 100 ml @ 50 mls/hr Q2H IV 02/19/25 23:15 02/20/25 05:14 Cancel Melatonin 10 mg HS PO 02/20/25 22:00 03/01/25 22:49 10 MG Potassium Chloride 100 ml @ 50 mls/hr Q2H IV 02/20/25 07:15 02/20/25 11:14 UNV Atorvastatin Calcium 40 mg HS PO 02/20/25 22:00 03/01/25 22:49 40 MG Aspirin 81 mg DAILY PO 02/21/25 10:00 03/02/25 11:02 81 MG Nifedipine 30 mg DAILY PO 02/21/25 10:00 03/02/25 11:02 30 MG Lactated Ringer's 1,000 ml @ 75 mls/hr [id number] IV 02/21/25 15:45 03/01/25 16:57 75 MLS/HR Insulin Glargine 10 units BID@0700,2200 SC 02/23/25 22:00 03/02/25 06:35 10 UNITS Lorazepam 1 mg Q8HPRN PRN PO 02/23/25 14:15 02/28/25 21:38 1 MG Nicotine 1 patch DAILY TD 02/23/25 14:48 03/02/25 11:08 1 PATCH Hydralazine HCl 10 mg Q6HPRN IV 02/24/25 12:00 03/02/25 12:30 10 MG Vancomycin HCl 0 ml @ 0 mls/hr UD IV 02/26/25 10:30 Meropenem 50 ml @ 17 mls/hr Q12HR IV 02/26/25 22:00 03/02/25 11:05 17 MLS/HR Acetaminophen/ Hydrocodone Bitart 1 tab Q4HPRN PRN PO 02/26/25 10:30 03/02/25 11:01 1 TAB Enoxaparin Sodium 40 mg DAILY SC 02/27/25 10:00 03/02/25 11:03 40 MG Insulin Human Regular ACHS SC 02/28/25 17:00 03/01/25 23:12 4 UNITS Gabapentin 100 mg TID PO 03/02/25 14:00 UNV objective GENERAL: Awake, alert, oriented. LUNGS: Clear. CARDIOVASCULAR: Heart sounds are good. ABDOMEN: Soft. laboratory and microbiology Laboratory Tests 03/02/25 05:58 02/28/25 06:02 Test 02/28/25 06:02 Range/Units Serum Glucose 225 H 74-106 mg/dL Problem List Multiple acute/subacute strokes rule out cardioembolic source. Severe hypokalemia. Acute kidney injury. Hypertension, newly diagnosed. Insulin-dependent diabetes mellitus, HgbA1C 9.9%. Status post right BKA. Dyslipidemia. Cannabinoid/tobacco use. Assessment/Plan Continued all current supportive medical care. [place] for pain management. Aspirin, Lipitor. DVT prophylactics. IV Hydralazine for SBP >16. IV antibiotics as ordered. Nifedipine. Additional plan as per the hospital course. Dietary Evaluation Review Comments: 1) Esau 1 pk BID 2) Refer [employer] on DC 3) Continue current plan of care Expected Outcomes/Goals: Pt will meet >75% estimated needs Fu 3-5 days Plan discussed with: Patient YANIRA WINN MD Mar 02, 2025 13:21
--- NOTE | 2025-03-02 14:00 | DVHPN2 ---
Subjective Patient reports having depression, denies suicidal ideation. Requesting to go outside with her . Reviewed: Care Plan, H&P, Labs, Medications, Previous Orders, Radiology, Other (Consultations) Changes from previous H/P or p: No Changes General: Per HPI Objective Vitals Vital Signs Date Time Temp Pulse Resp B/P (MAP) Pulse Ox O2 Delivery O2 Flow Rate FiO2 03/02/25 12:49 97.8 89 17 148/73 (98) 98 97.8 03/01/25 20:00 Room Air* 0 21 Intake/Output Intake and Output 03/02/25 07:00 Intake Total 1797 ml Output Total 2275 ml Balance -478 ml Intake Oral 1047 ml IV Total 750 ml Output Urine Total 2275 ml General Appearance: Alert, Oriented X3, Cooperative, No acute distress HEENT: Atraumatic Lungs: Clear to auscultation, Normal air movement Cardiovascular: Regular rate, Normal S1, Normal S2 Abdomen: Normal bowel sounds, Soft, No tenderness Extremities: Other Neuro: Normal speech, Other Skin: Wounds Psych/Mental Status: Mental status NL, Mood NL Medications Current Medications Medications Dose Ordered Sig/John Route Start Time Stop Time Status Last Admin Dose Admin Ondansetron HCl 4 mg Q4HP PRN IV 02/19/25 13:45 02/22/25 06:32 4 MG Docusate Sodium 100 mg BIDPRN PRN PO 02/19/25 13:45 Acetaminophen 650 mg Q6HP PRN PO 02/19/25 13:45 02/19/25 21:37 650 MG Nitroglycerin 0.4 mg Q5MINP PRN SL 02/19/25 13:45 Diagnostic Test (Pha) 1 strip ACHS 02/19/25 17:00 03/02/25 11:19 1 STRIP Dextrose 50 ml UD PRN IV 02/19/25 15:45 Duloxetine HCl 30 mg DAILY PO 02/20/25 10:00 03/02/25 11:03 30 MG Gemfibrozil 600 mg BIDAC PO 02/19/25 17:00 03/02/25 05:35 600 MG Lamotrigine 25 mg DAILY PO 02/20/25 10:00 03/02/25 11:02 25 MG Potassium Chloride 100 ml @ 50 mls/hr Q2H IV 02/19/25 23:15 02/20/25 05:14 Cancel Melatonin 10 mg HS PO 02/20/25 22:00 03/01/25 22:49 10 MG Potassium Chloride 100 ml @ 50 mls/hr Q2H IV 02/20/25 07:15 02/20/25 11:14 UNV Atorvastatin Calcium 40 mg HS PO 02/20/25 22:00 03/01/25 22:49 40 MG Aspirin 81 mg DAILY PO 02/21/25 10:00 03/02/25 11:02 81 MG Nifedipine 30 mg DAILY PO 02/21/25 10:00 03/02/25 11:02 30 MG Lactated Ringer's 1,000 ml @ 75 mls/hr [id number] IV 02/21/25 15:45 03/01/25 16:57 75 MLS/HR Insulin Glargine 10 units BID@0700,2200 SC 02/23/25 22:00 03/02/25 06:35 10 UNITS Lorazepam 1 mg Q8HPRN PRN PO 02/23/25 14:15 02/28/25 21:38 1 MG Nicotine 1 patch DAILY TD 02/23/25 14:48 03/02/25 11:08 1 PATCH Hydralazine HCl 10 mg Q6HPRN IV 02/24/25 12:00 03/02/25 12:30 10 MG Vancomycin HCl 0 ml @ 0 mls/hr UD IV 02/26/25 10:30 Meropenem 50 ml @ 17 mls/hr Q12HR IV 02/26/25 22:00 03/02/25 11:05 17 MLS/HR Acetaminophen/ Hydrocodone Bitart 1 tab Q4HPRN PRN PO 02/26/25 10:30 03/02/25 11:01 1 TAB Enoxaparin Sodium 40 mg DAILY SC 02/27/25 10:00 03/02/25 11:03 40 MG Insulin Human Regular ACHS SC 02/28/25 17:00 03/01/25 23:12 4 UNITS Gabapentin 100 mg TID PO 03/02/25 14:00 03/02/25 13:52 100 MG Laboratory Results Laboratory Tests 02/28/25 06:02 03/02/25 05:58 Urinalysis Test 02/19/25 17:27 Urine Color Colorless (Yellow) Urine Clarity Clear (Clear) Urine pH 6.5 (5.0-9.0) Urine Specific [place] 1.008 (1.001-1.035) Urine Protein 2+ (Negative) H Urine Ketones 1+ (Negative) H Urine Blood 1+ /uL (Negative) H Urine Nitrite Negative (Negative) Urine Bilirubin Negative (Negative) Urine Urobilinogen Normal mg/dL (Negative) Urine Leukocyte Esterase Negative /uL (Negative) Urine RBC 6 /hpf (0 - 4) Urine Microscopic WBC 2 /HPF (0-5) Urine Squamous Epithelial Cells Few /hpf (<5) Urine Bacteria None seen /hpf (None Seen) Urine Glucose 2+ mg/dL (Normal) H Microbiology Microbiology Date/Time Source Procedure Growth Status 02/25/25 12:42 Knee Fluid Gram Stain - Final Complete 02/25/25 12:42 Knee Fluid Body Fluid Culture - Final Complete 02/19/25 17:27 Urine - [place] Urine Culture - Final Complete 02/19/25 13:14 Blood Blood Culture - Final NO GROWTH AFTER 5 DAYS OF INCUBATION. Complete Assessment/Plan Assessment/Plan Impression: Multiple acute/subacute strokes Left lower extremity cellulitis Rule out left septic knee Hypokalemia Acute kidney injury likely hemodynamically mediated due to vasomotor nephropathy Chronic kidney disease Peripheral vascular disease status post right [id number] amputation 6 months ago Poorly controlled type 2 diabetes Sepsis Hypertension Mixed hyperlipidemia Polysubstance use disorder Diabetic neuropathy -? Suicidal ideation Plan: -covering for Dr. Hoyos, Primary hospitalist -persistent erythema to left knee as well as swelling despite having recent joint aspiration. -repeat left knee ultrasound for fluid accumulation -continue antibiotic therapy with Merrem panel -repeat psychiatry consultation given patient states she was no longer with suicidal ideation only really depressed -continue antidepressants -consider MRI of the left knee if effusion returned -MAGALIS ruled out endocarditis, residual thrombus -continue anticoagulation -repeat labs in a.m. Total time spent with patient discussing and formulating plan of care: 35 minutes. This medical document was created using an electronic medical record system with [employer] dictation system. Although this document has been carefully reviewed, there may still be some phonetic and typographical errors. These areas are purely typographical due to imperfections of the software programs, and do not reflect any compromise in the patient's medical care. My Orders Orders - JUSTIN BONILLA NP Procedure Category Date Status Time Cleanse Wound With HAYDER 03/01/25 In Process Wound Clean 18:04 Communication Order ORDERS 03/02/25 Transmitted 12:56 Gabapentin Capsule PHA 03/02/25 In Process (Neurontin Capsule) 14:00 Date of Service: Mar 09, 2025 Billing Provider: JUSTIN BONILLA NP Common Visit Codes: [id number] INP/OBS CARE(HIGH) JUSTIN BONILLA NP Mar 02, 2025 14:00
[2025-03-02] MEDS: VANCOMYCIN 750MG KIT 100 ML IV ONE (16:02)
--- NOTE | 2025-03-02 20:58 | DVHPN2 ---
Subjective Patient reports having depression, denies suicidal ideation. Requesting to go outside with her . Reviewed: Care Plan, H&P, Labs, Medications, Previous Orders, Radiology, Other (Consultations) Changes from previous H/P or p: No Changes General: Per HPI Objective Vitals Vital Signs Date Time Temp Pulse Resp B/P (MAP) Pulse Ox O2 Delivery O2 Flow Rate FiO2 03/02/25 18:08 114/71 03/02/25 16:54 97.4 81 17 97 97.4 03/02/25 08:00 Room Air* 0 21 Intake/Output Intake and Output 03/02/25 07:00 Intake Total 1797 ml Output Total 2275 ml Balance -478 ml Intake Oral 1047 ml IV Total 750 ml Output Urine Total 2275 ml General Appearance: Alert, Oriented X3, Cooperative, No acute distress HEENT: Atraumatic Lungs: Clear to auscultation, Normal air movement Cardiovascular: Regular rate, Normal S1, Normal S2 Abdomen: Normal bowel sounds, Soft, No tenderness Extremities: Other Neuro: Normal speech, Other Skin: Wounds Psych/Mental Status: Mental status NL, Mood NL Medications Current Medications Medications Dose Ordered Sig/John Route Start Time Stop Time Status Last Admin Dose Admin Ondansetron HCl 4 mg Q4HP PRN IV 02/19/25 13:45 02/22/25 06:32 4 MG Docusate Sodium 100 mg BIDPRN PRN PO 02/19/25 13:45 Acetaminophen 650 mg Q6HP PRN PO 02/19/25 13:45 02/19/25 21:37 650 MG Nitroglycerin 0.4 mg Q5MINP PRN SL 02/19/25 13:45 Diagnostic Test (Pha) 1 strip ACHS 02/19/25 17:00 03/02/25 17:00 1 STRIP Dextrose 50 ml UD PRN IV 02/19/25 15:45 Duloxetine HCl 30 mg DAILY PO 02/20/25 10:00 03/02/25 11:03 30 MG Gemfibrozil 600 mg BIDAC PO 02/19/25 17:00 03/02/25 18:04 600 MG Lamotrigine 25 mg DAILY PO 02/20/25 10:00 03/02/25 11:02 25 MG Potassium Chloride 100 ml @ 50 mls/hr Q2H IV 02/19/25 23:15 02/20/25 05:14 Cancel Melatonin 10 mg HS PO 02/20/25 22:00 03/01/25 22:49 10 MG Potassium Chloride 100 ml @ 50 mls/hr Q2H IV 02/20/25 07:15 02/20/25 11:14 UNV Atorvastatin Calcium 40 mg HS PO 02/20/25 22:00 03/01/25 22:49 40 MG Aspirin 81 mg DAILY PO 02/21/25 10:00 03/02/25 11:02 81 MG Nifedipine 30 mg DAILY PO 02/21/25 10:00 03/02/25 11:02 30 MG Lactated Ringer's 1,000 ml @ 75 mls/hr [id number] IV 02/21/25 15:45 03/01/25 16:57 75 MLS/HR Insulin Glargine 10 units BID@0700,2200 SC 02/23/25 22:00 03/02/25 06:35 10 UNITS Lorazepam 1 mg Q8HPRN PRN PO 02/23/25 14:15 02/28/25 21:38 1 MG Nicotine 1 patch DAILY TD 02/23/25 14:48 03/02/25 11:08 1 PATCH Hydralazine HCl 10 mg Q6HPRN IV 02/24/25 12:00 03/02/25 18:08 10 MG Vancomycin HCl 0 ml @ 0 mls/hr UD IV 02/26/25 10:30 Meropenem 50 ml @ 17 mls/hr Q12HR IV 02/26/25 22:00 03/02/25 11:05 17 MLS/HR Acetaminophen/ Hydrocodone Bitart 1 tab Q4HPRN PRN PO 02/26/25 10:30 03/02/25 18:15 1 TAB Enoxaparin Sodium 40 mg DAILY SC 02/27/25 10:00 03/02/25 11:03 40 MG Insulin Human Regular ACHS SC 02/28/25 17:00 03/02/25 18:08 3 UNITS Gabapentin 100 mg TID PO 03/02/25 14:00 03/02/25 13:52 100 MG Laboratory Results Laboratory Tests 02/28/25 06:02 03/02/25 05:58 Urinalysis Test 02/19/25 17:27 Urine Color Colorless (Yellow) Urine Clarity Clear (Clear) Urine pH 6.5 (5.0-9.0) Urine Specific [place] 1.008 (1.001-1.035) Urine Protein 2+ (Negative) H Urine Ketones 1+ (Negative) H Urine Blood 1+ /uL (Negative) H Urine Nitrite Negative (Negative) Urine Bilirubin Negative (Negative) Urine Urobilinogen Normal mg/dL (Negative) Urine Leukocyte Esterase Negative /uL (Negative) Urine RBC 6 /hpf (0 - 4) Urine Microscopic WBC 2 /HPF (0-5) Urine Squamous Epithelial Cells Few /hpf (<5) Urine Bacteria None seen /hpf (None Seen) Urine Glucose 2+ mg/dL (Normal) H Microbiology Microbiology Date/Time Source Procedure Growth Status 02/25/25 12:42 Knee Fluid Gram Stain - Final Complete 02/25/25 12:42 Knee Fluid Body Fluid Culture - Final Complete 02/19/25 17:27 Urine - [place] Urine Culture - Final Complete 02/19/25 13:14 Blood Blood Culture - Final NO GROWTH AFTER 5 DAYS OF INCUBATION. Complete Labs and/or images reviewed: Labs reviewed by me, Image(s) reviewed by me Assessment/Plan Assessment/Plan Impression: Multiple acute/subacute strokes Left lower extremity cellulitis Rule out left septic knee Hypokalemia Acute kidney injury likely hemodynamically mediated due to vasomotor nephropathy Chronic kidney disease Peripheral vascular disease status post right [id number] amputation 6 months ago Poorly controlled type 2 diabetes Sepsis Hypertension Mixed hyperlipidemia Polysubstance use disorder Diabetic neuropathy -? Suicidal ideation Plan: -covering for Dr. Hoyos, Primary hospitalist -Left knee MRI -repeat left knee ultrasound: Reviewed -continue antibiotic therapy with Meropenem -repeat psychiatry consultation given patient states she was no longer with suicidal ideation only really depressed -continue antidepressants -consider MRI of the left knee if effusion returned -MAGALIS ruled out endocarditis, residual thrombus -continue anticoagulation -repeat labs in a.m. Total time spent with patient discussing and formulating plan of care: 35 minutes. This medical document was created using an electronic medical record system with [employer] system. Although this document has been carefully reviewed, there may still be some phonetic and typographical errors. These areas are purely typographical due to imperfections of the software programs, and do not reflect any compromise in the patient's medical care. Plan discussed with: Patient, Other My Orders Orders - JUSTIN BONILLA NP Procedure Category Date Status Time Communication Order ORDERS 03/02/25 Transmitted 12:56 Gabapentin Capsule PHA 03/02/25 In Process (Neurontin Capsule) 14:00 Date of Service: Mar 02, 2025 Billing Provider: JUSTIN BONILLA NP Common Visit Codes: [id number] INP/OBS CARE(HIGH) JUSTIN BONILLA NP Mar 02, 2025 20:58
[2025-03-03] VITALS (8 sets, daily range): BP systolic 122–167; BP diastolic 67–91; PULSE 86–102; RESP 16–19; TEMP 97.5–98.1; O2SAT 97–98
[2025-03-03 06:54] LABS: Sodium 139 mmol/L (136-145)
[2025-03-03 06:55] LABS: Anion Gap 9 (5-15)
[2025-03-03 07:00] LABS: Glucose 95 mg/dL (74-106)
[2025-03-03 07:01] LABS: BUN/Creatinine Ratio 33.8 (10.0-20.0)
[2025-03-03 07:06] LABS: Blood Urea Nitrogen 68 mg/dL (9-23); Calcium 8.6 mg/dL (8.7-10.4); Carbon Dioxide 20 mmol/L (20-31); Chloride 110 mmol/L (98-107); Potassium 5.2 mmol/L (3.5-5.1)
[2025-03-03 07:36] LABS: Erythrocyte Sedimentation Rate 123 mm/hr (0-20)
[2025-03-03 09:54] LABS: Basophils # (auto) 0.1 10 ^3/uL (0-0.2)
[2025-03-03 09:56] LABS: Basophils % (auto) 0.7 % (0.0-2.0); Eosinophils # (auto) 0.4 10 ^3/uL (0-0.8); Eosinophils % (auto) 2.5 % (0.0-7.0); Hematocrit 28.6 % (36.0-46.0); Hemoglobin 8.9 g/dL (12.2-16.2); Lymphocytes # (auto) 1.1 10 ^3/uL (0.4-5.4); Lymphocytes % (auto) 8.2 % (10.0-50.0); Mean Corpuscular Hemoglobin 27.7 pg (28.0-32.0); Mean Corpuscular Volume 89.3 fL (80.0-100.0); Neutrophils # (auto) 11.4 10 ^3/uL (1.6-8.6); Neutrophils % (auto) 81.6 % (37.0-80.0); Platelet Count (auto) 521 10^3/uL (140-450); Red Cell Distribution Width 17.4 % (11.8-14.3); White Blood Cell 13.9 10^3/uL (4.4-10.8)
--- NOTE | 2025-03-03 11:48 | DVHPN2 ---
Subjective Patient reports having depression, denies suicidal ideation. Requesting to go outside with her . Reviewed: Care Plan, H&P, Labs, Medications, Previous Orders, Radiology, Other (Consultations) Changes from previous H/P or p: No Changes General: Per HPI Objective Vitals Vital Signs Date Time Temp Pulse Resp B/P (MAP) Pulse Ox O2 Delivery O2 Flow Rate FiO2 03/03/25 10:20 147/89 03/03/25 09:01 97.7 92 19 98 97.7 03/03/25 08:05 Room Air* 0 21 Intake/Output Intake and Output 03/03/25 07:00 Intake Total 4265 ml Output Total 1675 ml Balance 2590 ml Intake Oral 3115 ml IV Total 1150 ml Output Urine Total 1675 ml # Bowel Movements 2 General Appearance: Alert, Oriented X3, Cooperative, No acute distress HEENT: Atraumatic, PERRLA Lungs: Clear to auscultation, Normal air movement Cardiovascular: Regular rate, Normal S1, Normal S2 Abdomen: Normal bowel sounds, Soft, No tenderness Extremities: Other Neuro: Normal speech, Other Skin: Dry, Intact, Wounds Psych/Mental Status: Mental status NL, Mood NL Medications Current Medications Medications Dose Ordered Sig/John Route Start Time Stop Time Status Last Admin Dose Admin Ondansetron HCl 4 mg Q4HP PRN IV 02/19/25 13:45 03/02/25 22:04 4 MG Docusate Sodium 100 mg BIDPRN PRN PO 02/19/25 13:45 Acetaminophen 650 mg Q6HP PRN PO 02/19/25 13:45 02/19/25 21:37 650 MG Nitroglycerin 0.4 mg Q5MINP PRN SL 02/19/25 13:45 Diagnostic Test (Pha) 1 strip ACHS 02/19/25 17:00 03/03/25 06:21 1 STRIP Dextrose 50 ml UD PRN IV 02/19/25 15:45 Duloxetine HCl 30 mg DAILY PO 02/20/25 10:00 03/03/25 10:21 30 MG Gemfibrozil 600 mg BIDAC PO 02/19/25 17:00 03/03/25 06:16 600 MG Lamotrigine 25 mg DAILY PO 02/20/25 10:00 03/03/25 10:28 25 MG Potassium Chloride 100 ml @ 50 mls/hr Q2H IV 02/19/25 23:15 02/20/25 05:14 Cancel Melatonin 10 mg HS PO 02/20/25 22:00 03/02/25 21:46 10 MG Potassium Chloride 100 ml @ 50 mls/hr Q2H IV 02/20/25 07:15 02/20/25 11:14 UNV Atorvastatin Calcium 40 mg HS PO 02/20/25 22:00 03/02/25 21:46 40 MG Aspirin 81 mg DAILY PO 02/21/25 10:00 03/03/25 10:29 81 MG Nifedipine 30 mg DAILY PO 02/21/25 10:00 03/03/25 10:20 30 MG Lactated Ringer's 1,000 ml @ 75 mls/hr [id number] IV 02/21/25 15:45 03/03/25 00:32 75 MLS/HR Insulin Glargine 10 units BID@0700,2200 SC 02/23/25 22:00 03/02/25 21:46 10 UNITS Lorazepam 1 mg Q8HPRN PRN PO 02/23/25 14:15 02/28/25 21:38 1 MG Nicotine 1 patch DAILY TD 02/23/25 14:48 03/03/25 10:22 1 PATCH Hydralazine HCl 10 mg Q6HPRN IV 02/24/25 12:00 03/02/25 18:08 10 MG Vancomycin HCl 0 ml @ 0 mls/hr UD IV 02/26/25 10:30 Meropenem 50 ml @ 17 mls/hr Q12HR IV 02/26/25 22:00 03/03/25 10:29 17 MLS/HR Acetaminophen/ Hydrocodone Bitart 1 tab Q4HPRN PRN PO 02/26/25 10:30 03/03/25 10:23 1 TAB Enoxaparin Sodium 40 mg DAILY SC 02/27/25 10:00 03/03/25 10:19 40 MG Insulin Human Regular ACHS SC 02/28/25 17:00 03/02/25 21:45 4 UNITS Gabapentin 100 mg TID PO 03/02/25 14:00 03/03/25 06:16 100 MG Laboratory Results Laboratory Tests 03/03/25 04:41 03/03/25 09:33 Chemistry Test 03/03/25 04:41 Calcium Level 8.6 mg/dL (8.7-10.4) L Phosphorus Level 6.2 mg/dL (2.4-5.1) H Urinalysis Test 02/19/25 17:27 Urine Color Colorless (Yellow) Urine Clarity Clear (Clear) Urine pH 6.5 (5.0-9.0) Urine Specific [place] 1.008 (1.001-1.035) Urine Protein 2+ (Negative) H Urine Ketones 1+ (Negative) H Urine Blood 1+ /uL (Negative) H Urine Nitrite Negative (Negative) Urine Bilirubin Negative (Negative) Urine Urobilinogen Normal mg/dL (Negative) Urine Leukocyte Esterase Negative /uL (Negative) Urine RBC 6 /hpf (0 - 4) Urine Microscopic WBC 2 /HPF (0-5) Urine Squamous Epithelial Cells Few /hpf (<5) Urine Bacteria None seen /hpf (None Seen) Urine Glucose 2+ mg/dL (Normal) H Microbiology Microbiology Date/Time Source Procedure Growth Status 02/25/25 12:42 Knee Fluid Gram Stain - Final Complete 02/25/25 12:42 Knee Fluid Body Fluid Culture - Final Complete 02/19/25 17:27 Urine - [place] Urine Culture - Final Complete 02/19/25 13:14 Blood Blood Culture - Final NO GROWTH AFTER 5 DAYS OF INCUBATION. Complete Labs and/or images reviewed: Labs reviewed by me, Image(s) reviewed by me Assessment/Plan Assessment/Plan Impression: Multiple acute/subacute strokes Left lower extremity cellulitis Rule out left septic knee Hypokalemia Acute kidney injury likely hemodynamically mediated due to vasomotor nephropathy Chronic kidney disease Peripheral vascular disease status post right [id number] amputation 6 months ago Poorly controlled type 2 diabetes Sepsis Hypertension Mixed hyperlipidemia Polysubstance use disorder Diabetic neuropathy -? Suicidal ideation Plan: -MRI pending. ESR elevated at 123. Ortho consultation -Left knee MRI -repeat left knee ultrasound: Reviewed -continue antibiotic therapy with Meropenem -repeat psychiatry consultation given patient states she was no longer with suicidal ideation only really depressed -continue antidepressants -consider MRI of the left knee if effusion returned -MAGALIS ruled out endocarditis, and residual thrombus -continue anticoagulation -repeat labs in a.m. Total time spent with patient discussing and formulating plan of care: 35 minutes. This medical document was created using an electronic medical record system with [employer] system. Although this document has been carefully reviewed, there may still be some phonetic and typographical errors. These areas are purely typographical due to imperfections of the software programs, and do not reflect any compromise in the patient's medical care. Plan discussed with: Patient, Other (RN) My Orders Orders - JUSTIN BONILLA NP Procedure Category Date Status Time Communication Order ORDERS 03/02/25 Transmitted 12:56 Gabapentin Capsule PHA 03/02/25 In Process (Neurontin Capsule) 14:00 Left Knee Wo Contrast MRI 03/02/25 Logged 20:55 Date of Service: Mar 03, 2025 Billing Provider: JUSTIN BONILLA NP Common Visit Codes: [id number] INP/OBS CARE(HIGH) JUSTIN BONILLA NP Mar 03, 2025 11:48
--- NOTE | 2025-03-03 12:34 | DVHPN2 ---
Progress Note Date Seen: Mar 03, 2025 Medical Necessity Reason Pt with a Central, PICC or Fol: Yes The following are medically ne: Almaraz Catheter Subjective Patient reports: No new complaints Other Systems: Patient seen and examined by myself today in follow-up Objective vital signs Vital Sign Date Time Temp Pulse Resp B/P (MAP) Pulse Ox O2 Delivery O2 Flow Rate FiO2 03/03/25 10:20 147/89 03/03/25 09:01 97.7 92 19 98 97.7 03/03/25 08:05 Room Air* 0 21 Total Intake and Output 03/02/25 03/02/25 03/03/25 15:00 23:00 07:00 Intake Total 770 ml 1695 ml 1800 ml Output Total 975 ml 700 ml Balance 770 ml 720 ml 1100 ml medications Current Medications Medications Dose Ordered Sig/John Route Start Time Stop Time Status Last Admin Dose Admin Ondansetron HCl 4 mg Q4HP PRN IV 02/19/25 13:45 03/02/25 22:04 4 MG Docusate Sodium 100 mg BIDPRN PRN PO 02/19/25 13:45 Acetaminophen 650 mg Q6HP PRN PO 02/19/25 13:45 02/19/25 21:37 650 MG Nitroglycerin 0.4 mg Q5MINP PRN SL 02/19/25 13:45 Diagnostic Test (Pha) 1 strip ACHS 02/19/25 17:00 03/03/25 06:21 1 STRIP Dextrose 50 ml UD PRN IV 02/19/25 15:45 Duloxetine HCl 30 mg DAILY PO 02/20/25 10:00 03/03/25 10:21 30 MG Gemfibrozil 600 mg BIDAC PO 02/19/25 17:00 03/03/25 06:16 600 MG Lamotrigine 25 mg DAILY PO 02/20/25 10:00 03/03/25 10:28 25 MG Potassium Chloride 100 ml @ 50 mls/hr Q2H IV 02/19/25 23:15 02/20/25 05:14 Cancel Melatonin 10 mg HS PO 02/20/25 22:00 03/02/25 21:46 10 MG Potassium Chloride 100 ml @ 50 mls/hr Q2H IV 02/20/25 07:15 02/20/25 11:14 UNV Atorvastatin Calcium 40 mg HS PO 02/20/25 22:00 03/02/25 21:46 40 MG Aspirin 81 mg DAILY PO 02/21/25 10:00 03/03/25 10:29 81 MG Nifedipine 30 mg DAILY PO 02/21/25 10:00 03/03/25 10:20 30 MG Lactated Ringer's 1,000 ml @ 75 mls/hr [id number] IV 02/21/25 15:45 03/03/25 00:32 75 MLS/HR Insulin Glargine 10 units BID@0700,2200 SC 02/23/25 22:00 03/02/25 21:46 10 UNITS Lorazepam 1 mg Q8HPRN PRN PO 02/23/25 14:15 02/28/25 21:38 1 MG Nicotine 1 patch DAILY TD 02/23/25 14:48 03/03/25 10:22 1 PATCH Hydralazine HCl 10 mg Q6HPRN IV 02/24/25 12:00 03/02/25 18:08 10 MG Vancomycin HCl 0 ml @ 0 mls/hr UD IV 02/26/25 10:30 Meropenem 50 ml @ 17 mls/hr Q12HR IV 02/26/25 22:00 03/03/25 10:29 17 MLS/HR Acetaminophen/ Hydrocodone Bitart 1 tab Q4HPRN PRN PO 02/26/25 10:30 03/03/25 10:23 1 TAB Enoxaparin Sodium 40 mg DAILY SC 02/27/25 10:00 03/03/25 10:19 40 MG Insulin Human Regular ACHS SC 02/28/25 17:00 03/02/25 21:45 4 UNITS Gabapentin 100 mg TID PO 03/02/25 14:00 03/03/25 06:16 100 MG Examination: LUNGS:Normal, CVS:Normal, MSK:Normal laboratory and microbiology Laboratory Tests 03/03/25 09:33 03/03/25 04:41 Test 03/03/25 04:41 Range/Units Serum Glucose 95 74-106 mg/dL Microbiology Date/Time Source Procedure Growth Status 02/25/25 12:42 Knee Fluid Gram Stain - Final Complete 02/25/25 12:42 Knee Fluid Body Fluid Culture - Final Complete 02/19/25 17:27 Urine - [place] [place] Urine Culture - Final Complete 02/19/25 13:14 Blood Blood Culture - Final NO GROWTH AFTER 5 DAYS OF INCUBATION. Complete Problem List/Assessment/Plan Problem List/Assessment/Plan Acute kidney injury superimposed Chronic Kidney Disease secondary hemodynamic mediated Left knee swelling inflammatory versus infectious Peripheral vascular disease , hx BKA Diabetes poorly controlled Hyperkalemia Recommendations Kidney function slightly worsened today Increased urine output Strict I&Os Renal diet Insulin sliding scale Kidney ultrasound reported bilateral echogenic kidney We will continue to follow up Plan discussed with: Patient My Orders My Orders Orders - SHAINA VARGAS MD Procedure Category Date Status Time Vitamin D, 25-Hydroxy LAB 03/03/25 Logged 10:19 Urine Sodium LAB 03/03/25 Logged 10:19 Urine LAB 03/03/25 Logged Protein/Creatinine 10:19 Dietary Evaluation Review Comments: 1) Esau 1 pk BID 2) Refer Wine Cellar Stock Clerk on DC 3) Continue current plan of care Expected Outcomes/Goals: Pt will meet >75% estimated needs Fu 3-5 days SHAINA VARGAS MD Mar 03, 2025 12:34
--- NOTE | 2025-03-03 17:58 | DVH ---
Procedure: MRI LEFT KNEE WO CONTRAST 03/03/2025 02:59 PM INDICATION: Septic knee COMPARISON: CT CT L KNEE WO CONTRAST on DOS: 02/19/25 TECHNIQUE: MRI of the left knee was performed utilizing multiple appropriate imaging planes and pulse sequences. FINDINGS: Medial meniscus: Radial tear of the anterior horn and body. Radial and horizontal tears of the rn cvicu ior horn. Lateral meniscus: Maceration of the lateral meniscus. Anterior cruciate ligament: Unremarkable. Posterior cruciate ligament: Unremarkable. Medial collateral ligament: Unremarkable. Lateral stabilizers: Unremarkable. Extensor mechanism: Unremarkable. Pes anserine Tendons: Unremarkable. Medial compartment: Moderate thinning of the articular cartilage. Mild marginal osteophytosis. Lateral compartment: Mild thinning of the articular cartilage. Marginal osteophytosis.. Patellofemoral compartment: Unremarkable. Bones: No suspicious lesion. Joint Effusion: Moderate-sized suprapatellar joint effusion. Popliteal fossa: No Palacios's cyst. Other: Large subcutaneous fluid collection anterior to patella and on the lateral aspect of the knee measuring 2.3 cm in thickness. Moderate edema noted in biceps femoris muscle. Diffuse subcutaneous ed codi. Edema is seen in the popliteal fossa. Small Palacios's cyst. IMPRESSION: 1. Diffuse subcutaneous edema, edema of popliteal fossa and large subcutaneous fluid collection anter ior and lateral to the knee that may represent seroma, hematoma or abscess. Suggest further evaluatio n with aspirationSuggest, cytology and culture. 2. Medial and lateral meniscal tears. 3. Moderate-sized suprapatellar joint effusion. 4. Small Palacios's cyst. 5. Mild bicompartmental osteoarthritis.
--- NOTE | 2025-03-03 18:14 | DVHPN2 ---
Progress Note - Dictate Date Seen: Mar 03, 2025 Medical Necessity Reason Pt with a Central, PICC or Fol: Yes The following are medically ne: Almaraz Catheter Subjective Patient was seen and evaluated in follow up. No overnight events. Patient is resting in bed. WBC 13.9, HGB 8.9, HCT 28.6, K 5.2, BUN 68, Supervisor Yard 2.01. Telemetry reviewed. vital signs Vital Sign Date Time Temp Pulse Resp B/P (MAP) Pulse Ox O2 Delivery O2 Flow Rate FiO2 03/03/25 16:57 97.7 89 18 167/91 (116) 97 97.7 03/03/25 08:05 Room Air* 0 21 Total Intake and Output 03/02/25 03/02/25 03/03/25 15:00 23:00 07:00 Intake Total 770 ml 1695 ml 1800 ml Output Total 975 ml 700 ml Balance 770 ml 720 ml 1100 ml medications Current Medications Medications Dose Ordered Sig/John Route Start Time Stop Time Status Last Admin Dose Admin Ondansetron HCl 4 mg Q4HP PRN IV 02/19/25 13:45 03/02/25 22:04 4 MG Docusate Sodium 100 mg BIDPRN PRN PO 02/19/25 13:45 Acetaminophen 650 mg Q6HP PRN PO 02/19/25 13:45 02/19/25 21:37 650 MG Nitroglycerin 0.4 mg Q5MINP PRN SL 02/19/25 13:45 Diagnostic Test (Pha) 1 strip ACHS 02/19/25 17:00 03/03/25 16:50 1 STRIP Dextrose 50 ml UD PRN IV 02/19/25 15:45 Duloxetine HCl 30 mg DAILY PO 02/20/25 10:00 03/03/25 10:21 30 MG Gemfibrozil 600 mg BIDAC PO 02/19/25 17:00 03/03/25 16:52 600 MG Lamotrigine 25 mg DAILY PO 02/20/25 10:00 03/03/25 10:28 25 MG Potassium Chloride 100 ml @ 50 mls/hr Q2H IV 02/19/25 23:15 02/20/25 05:14 Cancel Melatonin 10 mg HS PO 02/20/25 22:00 03/02/25 21:46 10 MG Potassium Chloride 100 ml @ 50 mls/hr Q2H IV 02/20/25 07:15 02/20/25 11:14 UNV Atorvastatin Calcium 40 mg HS PO 02/20/25 22:00 03/02/25 21:46 40 MG Aspirin 81 mg DAILY PO 02/21/25 10:00 03/03/25 10:29 81 MG Nifedipine 30 mg DAILY PO 02/21/25 10:00 03/03/25 10:20 30 MG Lactated Ringer's 1,000 ml @ 75 mls/hr [id number] IV 02/21/25 15:45 03/03/25 16:05 75 MLS/HR Insulin Glargine 10 units BID@0700,2200 SC 02/23/25 22:00 03/02/25 21:46 10 UNITS Lorazepam 1 mg Q8HPRN PRN PO 02/23/25 14:15 02/28/25 21:38 1 MG Nicotine 1 patch DAILY TD 02/23/25 14:48 03/03/25 10:22 1 PATCH Hydralazine HCl 10 mg Q6HPRN IV 02/24/25 12:00 03/03/25 16:53 10 MG Vancomycin HCl 0 ml @ 0 mls/hr UD IV 02/26/25 10:30 Meropenem 50 ml @ 17 mls/hr Q12HR IV 02/26/25 22:00 03/03/25 10:29 17 MLS/HR Acetaminophen/ Hydrocodone Bitart 1 tab Q4HPRN PRN PO 02/26/25 10:30 03/03/25 16:51 1 TAB Enoxaparin Sodium 40 mg DAILY SC 02/27/25 10:00 03/03/25 10:19 40 MG Insulin Human Regular ACHS SC 02/28/25 17:00 03/03/25 13:30 3 UNITS Gabapentin 100 mg TID PO 03/02/25 14:00 03/03/25 13:28 100 MG objective GENERAL: Awake, alert, oriented. LUNGS: Clear. CARDIOVASCULAR: Heart sounds are good. ABDOMEN: Soft. laboratory and microbiology Laboratory Tests 03/03/25 09:33 03/03/25 04:41 Test 03/03/25 04:41 Range/Units Serum Glucose 95 74-106 mg/dL Problem List Multiple acute/subacute strokes rule out cardioembolic source. Severe hypokalemia. Acute kidney injury. Hypertension, newly diagnosed. Insulin-dependent diabetes mellitus, HgbA1C 9.9%. Status post right BKA. Dyslipidemia. Cannabinoid/tobacco use. Assessment/Plan Continued all current supportive medical care. [place] for pain management. Aspirin, Lipitor. DVT prophylactics. IV Hydralazine for SBP >16. IV antibiotics as ordered. Nifedipine. Additional plan as per the hospital course. Dietary Evaluation Review Comments: 1) Esau 1 pk BID 2) Refer Mobile Home Laborer on DC 3) Continue current plan of care Expected Outcomes/Goals: Pt will meet >75% estimated needs Fu 3-5 days Plan discussed with: Patient YANIRA WINN MD Mar 03, 2025 18:14
[2025-03-04 05:51] LABS: Creatinine, Urine 25.51 mg/dL (30.0-125.0)
[2025-03-04 05:57] LABS: Protein, Urine 357.1 mg/dL (1-14)
[2025-03-04 06:25] LABS: Basophils # (auto) 0.1 10 ^3/uL (0-0.2); Eosinophils # (auto) 0.3 10 ^3/uL (0-0.8); Monocytes # (auto) 0.8 10 ^3/uL (0-1.3); Monocytes % (auto) 6.5 % (0.0-12.0)
[2025-03-04 06:28] LABS: Basophils % (auto) 1.2 % (0.0-2.0); Eosinophils % (auto) 2.6 % (0.0-7.0); Hematocrit 27.1 % (36.0-46.0); Lymphocytes # (auto) 1.3 10 ^3/uL (0.4-5.4); Lymphocytes % (auto) 9.9 % (10.0-50.0); Mean Corpuscular Hemoglobin 27.7 pg (28.0-32.0); Mean Corpuscular Hgb Conc. 33.2 g/dL (32.0-36.0); Mean Corpuscular Volume 83.7 fL (80.0-100.0); Neutrophils # (auto) 10.2 10 ^3/uL (1.6-8.6); Neutrophils % (auto) 79.8 % (37.0-80.0); Platelet Count (auto) 577 10^3/uL (140-450); Red Blood Cells 3.23 10^6/uL (4.0-5.20); Red Cell Distribution Width 16.9 % (11.8-14.3); White Blood Cell 12.8 10^3/uL (4.4-10.8)
[2025-03-04 06:57] LABS: CRP High Sensitivity 5.8 mg/dL (<1.0)
[2025-03-04 07:16] LABS: Erythrocyte Sedimentation Rate 120 mm/hr (0-20)
[2025-03-04 08:00] VITALS: PULSE 94; RESP 18
[2025-03-04 09:00] VITALS: BP 127/73; PULSE 94; RESP 16; TEMP 97.7; O2SAT 97
--- NOTE | 2025-03-04 10:55 | DVHPN2 ---
Subjective The patient seen and examined at bedside. Ask a lot of question about her CVA. Reviewed: Care Plan, H&P, Labs, Medications, Previous Orders, Radiology, Other (Consultations) Changes from previous H/P or p: No Changes General: Per HPI Objective Vitals Vital Signs Date Time Temp Pulse Resp B/P (MAP) Pulse Ox O2 Delivery O2 Flow Rate FiO2 03/04/25 09:15 127/73 03/04/25 09:00 97.7 94 16 97 97.7 03/03/25 20:00 Room Air* 0 21 Intake/Output Intake and Output 03/04/25 07:00 Intake Total 1712 ml Output Total 1480 ml Balance 232 ml Intake Oral 1712 ml Output Urine Total 1480 ml # Bowel Movements 2 General Appearance: Alert, Oriented X3, Cooperative, No acute distress HEENT: Atraumatic, PERRLA Lungs: Clear to auscultation, Normal air movement Cardiovascular: Regular rate, Normal S1, Normal S2 Abdomen: Normal bowel sounds, Soft, No tenderness Extremities: Other Neuro: Normal speech, Other Skin: Dry, Intact, Wounds Psych/Mental Status: Mental status NL, Mood NL Medications Current Medications Medications Dose Ordered Sig/John Route Start Time Stop Time Status Last Admin Dose Admin Ondansetron HCl 4 mg Q4HP PRN IV 02/19/25 13:45 03/02/25 22:04 4 MG Docusate Sodium 100 mg BIDPRN PRN PO 02/19/25 13:45 Acetaminophen 650 mg Q6HP PRN PO 02/19/25 13:45 02/19/25 21:37 650 MG Nitroglycerin 0.4 mg Q5MINP PRN SL 02/19/25 13:45 Diagnostic Test (Pha) 1 strip ACHS 02/19/25 17:00 03/04/25 06:08 1 STRIP Dextrose 50 ml UD PRN IV 02/19/25 15:45 Duloxetine HCl 30 mg DAILY PO 02/20/25 10:00 03/04/25 09:14 30 MG Gemfibrozil 600 mg BIDAC PO 02/19/25 17:00 03/04/25 06:07 600 MG Lamotrigine 25 mg DAILY PO 02/20/25 10:00 03/04/25 09:15 25 MG Potassium Chloride 100 ml @ 50 mls/hr Q2H IV 02/19/25 23:15 02/20/25 05:14 Cancel Melatonin 10 mg HS PO 02/20/25 22:00 03/03/25 22:53 10 MG Potassium Chloride 100 ml @ 50 mls/hr Q2H IV 02/20/25 07:15 02/20/25 11:14 UNV Atorvastatin Calcium 40 mg HS PO 02/20/25 22:00 03/03/25 22:53 40 MG Aspirin 81 mg DAILY PO 02/21/25 10:00 03/04/25 09:14 81 MG Nifedipine 30 mg DAILY PO 02/21/25 10:00 03/04/25 09:15 30 MG Lactated Ringer's 1,000 ml @ 75 mls/hr [id number] IV 02/21/25 15:45 03/03/25 16:05 75 MLS/HR Insulin Glargine 10 units BID@0700,2200 SC 02/23/25 22:00 03/02/25 21:46 10 UNITS Lorazepam 1 mg Q8HPRN PRN PO 02/23/25 14:15 02/28/25 21:38 1 MG Nicotine 1 patch DAILY TD 02/23/25 14:48 03/04/25 09:16 1 PATCH Hydralazine HCl 10 mg Q6HPRN IV 02/24/25 12:00 03/04/25 06:02 10 MG Vancomycin HCl 0 ml @ 0 mls/hr UD IV 02/26/25 10:30 Meropenem 50 ml @ 17 mls/hr Q12HR IV 02/26/25 22:00 03/04/25 10:02 17 MLS/HR Acetaminophen/ Hydrocodone Bitart 1 tab Q4HPRN PRN PO 02/26/25 10:30 03/04/25 08:50 1 TAB Enoxaparin Sodium 40 mg DAILY SC 02/27/25 10:00 03/04/25 09:15 40 MG Insulin Human Regular ACHS SC 02/28/25 17:00 03/03/25 13:30 3 UNITS Gabapentin 100 mg TID PO 03/02/25 14:00 03/04/25 06:07 100 MG Laboratory Results Laboratory Tests 03/03/25 04:41 03/04/25 05:17 Urinalysis Test 02/19/25 17:27 03/04/25 05:00 Urine Color Colorless (Yellow) Urine Clarity Clear (Clear) Urine pH 6.5 (5.0-9.0) Urine Specific [place] 1.008 (1.001-1.035) Urine Protein 2+ (Negative) H Urine Ketones 1+ (Negative) H Urine Blood 1+ /uL (Negative) H Urine Nitrite Negative (Negative) Urine Bilirubin Negative (Negative) Urine Urobilinogen Normal mg/dL (Negative) Urine Leukocyte Esterase Negative /uL (Negative) Urine RBC 6 /hpf (0 - 4) Urine Microscopic WBC 2 /HPF (0-5) Urine Squamous Epithelial Cells Few /hpf (<5) Urine Bacteria None seen /hpf (None Seen) Urine Glucose 2+ mg/dL (Normal) H Urine Creatinine 25.51 mg/dL (30.0-125.0) L Urine Protein/Creatinine Ratio 14.00 Urine Sodium 80 mmol/L (40-220) Urine Total Protein 357.1 mg/dL (1-14) H Microbiology Microbiology Date/Time Source Procedure Growth Status 02/25/25 12:42 Knee Fluid Gram Stain - Final Complete 02/25/25 12:42 Knee Fluid Body Fluid Culture - Final Complete 02/19/25 17:27 Urine - [place] Urine Culture - Final Complete 02/19/25 13:14 Blood Blood Culture - Final NO GROWTH AFTER 5 DAYS OF INCUBATION. Complete Labs and/or images reviewed: Labs reviewed by me Assessment/Plan Assessment/Plan Multiple acute/subacute strokes Left lower extremity cellulitis Rule out left septic knee Hypokalemia Acute kidney injury likely hemodynamically mediated due to vasomotor nephropathy Chronic kidney disease Peripheral vascular disease status post right [id number] amputation 6 months ago Poorly controlled type 2 diabetes Sepsis Hypertension Mixed hyperlipidemia Polysubstance use disorder Diabetic neuropathy -? Suicidal ideation Plan: -MRI of left knee shows:1. Diffuse subcutaneous edema, edema of popliteal fossa and large subcutaneous fluid collection anterior and lateral to the knee that may represent seroma, hematoma or abscess. Suggest further evaluation with aspirationSuggest, cytology and culture. Medial and lateral meniscal tears. Moderate-sized suprapatellar joint effusion. Small Palacios's cyst. Mild bicompartmental osteoarthritis. . ESR elevated at 123. Ortho consultation. May need aspiration. Explain to the patient. -repeat left knee ultrasound: Reviewed -continue antibiotic therapy with Meropenem -repeat psychiatry consultation given patient states she was no longer with suicidal ideation only really depressed -continue antidepressants -consider MRI of the left knee if effusion returned -MAGALIS ruled out endocarditis, and residual thrombus -continue anticoagulation This medical document was created using an electronic medical record system with [employer] direct computerized dictation system. Although this document has been carefully reviewed, there may still be some phonetic and typographical errors. These areas are purely typographical due to imperfections of the software programs, and do not reflect any compromise in the patient's medical care.. Plan discussed with: Patient Date of Service: Mar 04, 2025 Billing Provider: TRAVIS BAH MD Common Visit Codes: 09831-[id number] INP/OBS CARE(HIGH) TRAVIS BAH MD Mar 04, 2025 10:55
--- NOTE | 2025-03-04 11:32 | DVHPN2 ---
Progress Note Date Seen: Mar 04, 2025 Medical Necessity Reason Pt with a Central, PICC or Fol: Yes The following are medically ne: Almaraz Catheter Subjective Patient reports: No new complaints Other Systems: Patient seen and examined by myself today in follow-up Objective vital signs Vital Sign Date Time Temp Pulse Resp B/P (MAP) Pulse Ox O2 Delivery O2 Flow Rate FiO2 03/04/25 09:15 127/73 03/04/25 09:00 97.7 94 16 97 97.7 03/03/25 20:00 Room Air* 0 21 Total Intake and Output 03/03/25 03/03/25 03/04/25 14:59 22:59 06:59 Intake Total 712 ml 1000 ml Output Total 1000 ml 480 ml Balance -288 ml 520 ml medications Current Medications Medications Dose Ordered Sig/John Route Start Time Stop Time Status Last Admin Dose Admin Ondansetron HCl 4 mg Q4HP PRN IV 02/19/25 13:45 03/02/25 22:04 4 MG Docusate Sodium 100 mg BIDPRN PRN PO 02/19/25 13:45 Acetaminophen 650 mg Q6HP PRN PO 02/19/25 13:45 02/19/25 21:37 650 MG Nitroglycerin 0.4 mg Q5MINP PRN SL 02/19/25 13:45 Diagnostic Test (Pha) 1 strip ACHS 02/19/25 17:00 03/04/25 06:08 1 STRIP Dextrose 50 ml UD PRN IV 02/19/25 15:45 Duloxetine HCl 30 mg DAILY PO 02/20/25 10:00 03/04/25 09:14 30 MG Gemfibrozil 600 mg BIDAC PO 02/19/25 17:00 03/04/25 06:07 600 MG Lamotrigine 25 mg DAILY PO 02/20/25 10:00 03/04/25 09:15 25 MG Potassium Chloride 100 ml @ 50 mls/hr Q2H IV 02/19/25 23:15 02/20/25 05:14 Cancel Melatonin 10 mg HS PO 02/20/25 22:00 03/03/25 22:53 10 MG Potassium Chloride 100 ml @ 50 mls/hr Q2H IV 02/20/25 07:15 02/20/25 11:14 UNV Atorvastatin Calcium 40 mg HS PO 02/20/25 22:00 03/03/25 22:53 40 MG Aspirin 81 mg DAILY PO 02/21/25 10:00 03/04/25 09:14 81 MG Nifedipine 30 mg DAILY PO 02/21/25 10:00 03/04/25 09:15 30 MG Lactated Ringer's 1,000 ml @ 75 mls/hr [id number] IV 02/21/25 15:45 03/03/25 16:05 75 MLS/HR Insulin Glargine 10 units BID@0700,2200 SC 02/23/25 22:00 03/02/25 21:46 10 UNITS Lorazepam 1 mg Q8HPRN PRN PO 02/23/25 14:15 02/28/25 21:38 1 MG Nicotine 1 patch DAILY TD 02/23/25 14:48 03/04/25 09:16 1 PATCH Hydralazine HCl 10 mg Q6HPRN IV 02/24/25 12:00 03/04/25 06:02 10 MG Vancomycin HCl 0 ml @ 0 mls/hr UD IV 02/26/25 10:30 Meropenem 50 ml @ 17 mls/hr Q12HR IV 02/26/25 22:00 03/04/25 10:02 17 MLS/HR Acetaminophen/ Hydrocodone Bitart 1 tab Q4HPRN PRN PO 02/26/25 10:30 03/04/25 08:50 1 TAB Enoxaparin Sodium 40 mg DAILY SC 02/27/25 10:00 03/04/25 09:15 40 MG Insulin Human Regular ACHS SC 02/28/25 17:00 03/03/25 13:30 3 UNITS Gabapentin 100 mg TID PO 03/02/25 14:00 03/04/25 06:07 100 MG Examination: LUNGS:Normal, CVS:Normal, MSK:Normal laboratory and microbiology Laboratory Tests 03/04/25 05:17 03/03/25 04:41 Test 03/03/25 04:41 Range/Units Serum Glucose 95 74-106 mg/dL Microbiology Date/Time Source Procedure Growth Status 02/25/25 12:42 Knee Fluid Gram Stain - Final Complete 02/25/25 12:42 Knee Fluid Body Fluid Culture - Final Complete 02/19/25 17:27 Urine - [place] Urine Culture - Final Complete 02/19/25 13:14 Blood Blood Culture - Final NO GROWTH AFTER 5 DAYS OF INCUBATION. Complete Problem List/Assessment/Plan Problem List/Assessment/Plan Acute kidney injury superimposed Chronic Kidney Disease secondary hemodynamic mediated Left knee swelling inflammatory versus infectious Peripheral vascular disease , hx BKA Diabetes poorly controlled Hyperkalemia Hyperphosphatemia Vitamin-D deficiency Recommendations Kidney function slightly worsened today Increased urine output Strict I&Os Renal diet Calcium acetate t.i.d. with meals Ergocalciferol 11025 units p.o. q.week Insulin sliding scale Kidney ultrasound reported bilateral echogenic kidney We will continue to follow up Plan discussed with: Patient Dietary Evaluation Review Comments: 1) Esau 1 pk BID 2) Refer Formal Service Waiter on DC 3) Continue current plan of care Expected Outcomes/Goals: Pt will meet >75% estimated needs Fu 3-5 days SHAINA VARGAS MD Mar 04, 2025 11:32
[2025-03-04 13:00] VITALS: BP 130/70; PULSE 83; RESP 18; TEMP 97.8; O2SAT 98
--- NOTE | 2025-03-04 15:01 | DVH ---
US US GUIDANCE FOR NEEDLE PLACEME, HISTORY: LT KNEE DRAINAGE PROCEDURE: An informed consent was obtained. The patient was placed supine on the interventional tabl e. The left knee fluid was localized with ultrasound and the overlying skin prepped with chlorhexidin e which was allowed to dry and draped in the usual sterile fashion. Time out was performed and infilt rated with 1% Xylocaine. With US guidance, 19-gauge centesis needle catheter was advanced into the fl uid collection. Approximately 20 cc of thick serosanguinous fluid was aspirated. No immediate compl ication was identified. FINDINGS: Limited US scan of through the left knee demonstrates a left knee joint fluid. Collection a ppears simple. Post procedure scan shows it decreased in size. IMPRESSION: Successful US guided left knee arthrocentesis with 20 mL for fluid analysis.
[2025-03-04] MEDS: VANCOMYCIN 500mg/100mL 100 ML IV ONE (15:51)
[2025-03-04 17:00] VITALS: BP 102/65; PULSE 78; RESP 18; TEMP 97.5; O2SAT 96
[2025-03-04] MEDS: DOCUSATE SOD 100 MG CAP PO PRN (17:41)
[2025-03-04] MEDS: ERGOCALCIFEROL 50,000 UNIT(1.25MG) CAP PO SCH (17:41)
[2025-03-04] MEDS: CALCIUM ACETATE 667 MG CAP PO SCH (17:42)
--- NOTE | 2025-03-04 18:42 | DVHPN2 ---
Progress Note - Dictate Date Seen: Mar 04, 2025 Medical Necessity Reason Pt with a Central, PICC or Fol: Yes The following are medically ne: Almaraz Catheter Subjective Patient was seen and evaluated in follow up. Patient is complaining of left knee pain. MRI of the left knee showed diffuse subcutaneous edema, edema of popliteal fossa and large subcutaneous fluid collection anterior and lateral to the knee that may represent seroma, hematoma or abscess. Medial and lateral meniscal tears. Moderate-sized suprapatellar joint effusion. Small Palacios's cyst. Mild bicompartmental osteoarthritis. Patient underwent successful US guided left knee arthrocentesis with 20 mL for fluid analysis. Telemetry reviewed. vital signs Vital Sign Date Time Temp Pulse Resp B/P (MAP) Pulse Ox O2 Delivery O2 Flow Rate FiO2 03/04/25 18:00 102/68 03/04/25 17:00 97.5 78 18 96 97.5 03/04/25 08:00 Room Air* 0 21 Total Intake and Output 03/03/25 03/03/25 03/04/25 15:00 23:00 07:00 Intake Total 712 ml 1000 ml Output Total 1000 ml 480 ml Balance -288 ml 520 ml medications Current Medications Medications Dose Ordered Sig/John Route Start Time Stop Time Status Last Admin Dose Admin Ondansetron HCl 4 mg Q4HP PRN IV 02/19/25 13:45 03/02/25 22:04 4 MG Docusate Sodium 100 mg BIDPRN PRN PO 02/19/25 13:45 03/04/25 17:41 100 MG Acetaminophen 650 mg Q6HP PRN PO 02/19/25 13:45 02/19/25 21:37 650 MG Nitroglycerin 0.4 mg Q5MINP PRN SL 02/19/25 13:45 Diagnostic Test (Pha) 1 strip ACHS 02/19/25 17:00 03/04/25 17:45 1 STRIP Dextrose 50 ml UD PRN IV 02/19/25 15:45 Duloxetine HCl 30 mg DAILY PO 02/20/25 10:00 03/04/25 09:14 30 MG Gemfibrozil 600 mg BIDAC PO 02/19/25 17:00 03/04/25 17:41 600 MG Lamotrigine 25 mg DAILY PO 02/20/25 10:00 03/04/25 09:15 25 MG Potassium Chloride 100 ml @ 50 mls/hr Q2H IV 02/19/25 23:15 02/20/25 05:14 Cancel Melatonin 10 mg HS PO 02/20/25 22:00 03/03/25 22:53 10 MG Potassium Chloride 100 ml @ 50 mls/hr Q2H IV 02/20/25 07:15 02/20/25 11:14 UNV Atorvastatin Calcium 40 mg HS PO 02/20/25 22:00 03/03/25 22:53 40 MG Aspirin 81 mg DAILY PO 02/21/25 10:00 03/04/25 09:14 81 MG Nifedipine 30 mg DAILY PO 02/21/25 10:00 03/04/25 09:15 30 MG Lactated Ringer's 1,000 ml @ 75 mls/hr [id number] IV 02/21/25 15:45 03/03/25 16:05 75 MLS/HR Insulin Glargine 10 units BID@0700,2200 SC 02/23/25 22:00 03/02/25 21:46 10 UNITS Lorazepam 1 mg Q8HPRN PRN PO 02/23/25 14:15 02/28/25 21:38 1 MG Nicotine 1 patch DAILY TD 02/23/25 14:48 03/04/25 09:16 1 PATCH Hydralazine HCl 10 mg Q6HPRN IV 02/24/25 12:00 03/04/25 13:25 10 MG Vancomycin HCl 0 ml @ 0 mls/hr UD IV 02/26/25 10:30 Meropenem 50 ml @ 17 mls/hr Q12HR IV 02/26/25 22:00 03/04/25 10:02 17 MLS/HR Acetaminophen/ Hydrocodone Bitart 1 tab Q4HPRN PRN PO 02/26/25 10:30 03/04/25 17:41 1 TAB Enoxaparin Sodium 40 mg DAILY SC 02/27/25 10:00 03/04/25 09:15 40 MG Insulin Human Regular ACHS SC 02/28/25 17:00 03/04/25 17:45 4 UNITS Gabapentin 100 mg TID PO 03/02/25 14:00 03/04/25 13:25 100 MG Calcium Acetate 1,334 mg TIDWMEALS PO 03/04/25 12:00 03/04/25 17:42 1,334 MG Ergocalciferol 50,000 unit Q7D PO 03/04/25 11:45 03/04/25 17:41 50,000 UNIT objective GENERAL: Awake, alert, oriented. LUNGS: Clear. CARDIOVASCULAR: Heart sounds are good. ABDOMEN: Soft. laboratory and microbiology Laboratory Tests 03/04/25 05:17 03/03/25 04:41 Test 03/03/25 04:41 Range/Units Serum Glucose 95 74-106 mg/dL Problem List Multiple acute/subacute strokes. Severe hypokalemia. Acute kidney injury. Hypertension, newly diagnosed. Insulin-dependent diabetes mellitus, HgbA1C 9.9%. Status post right BKA. Dyslipidemia. Cannabinoid/tobacco use. Assessment/Plan Continued all current supportive medical care. [place] for pain management. Aspirin, Lipitor. DVT prophylactics. IV Hydralazine for SBP >16. IV antibiotics as ordered. Nifedipine. Additional plan as per the hospital course. Dietary Evaluation Review Comments: 1) Esau 1 pk BID 2) Refer Manager Molecular on DC 3) Continue current plan of care Expected Outcomes/Goals: Pt will meet >75% estimated needs Fu 3-5 days Plan discussed with: Patient YANIRA WINN MD Mar 04, 2025 18:42
--- NOTE | 2025-03-04 19:34 | DVHINCON2 ---
Consult Note Consult Consult Note Orthopedic Consultation Note Date of Consultation: March 03, 2025 Consulting Service: Internal Medicine Reason for Consult: Evaluation of left knee swelling and erythema, concern for infectious etiology vs inflammatory process. --- History of Present Illness: Patient was initially admitted on February 19, 2025, for possible cerebrovascular accident (CVA). During the hospital course, she was also found to have a left upper extremity DVT, Left foot Ulcers, Left knee swelling. Ortho was consulted on February for left knee erythema, swelling and pain. On my interview patient was in no distress and able to answer all my questions. She reports left knee swelling Over the past 2-3 weeks, she developed swelling, erythema with pain gradually worsening to where it became painful to WB on left knee without pain.On question of her ambulatory status she reports she "crawls" when at home after her Right BKA, Does not ambulate without supprot device/wheelchair , rated left knee pain for last 2-3 weeks at 45/10 mainly with palpation and motion. Reports recent worsening of redness progressing proximally over the lateral aspect of her thigh. Pt also being treated by medicine team for DVT Left upper extremity at this time. No fever, Chills, Nausea, Vomiting reported.No other Joint pain reported. Past Medical History includes: Type 2 Diabetes Mellitus, historically poorly controlled; currently stable during hospitalization Hypertension Peripheral Artery Disease Anxiety and Depression Right Below-Knee Amputation (BKA) in July 2024, due to a diabetic foot ulcer.Osteomyelitis complicated by infection The patient reports being on insulin therapy prior to admission, with home blood glucose levels not well controlled. Hx of Smoking and Marijuana use reported Internal Medicine initiated workup and aspiration of the left knee joint. Cell count from initial aspiration was >200,000 WBCs with 98% PMNs. Gram stain and culture were negative for Organism. The patient was started on Imipenem by medicine team. --- Orthopedic Evaluation (March 03, 2025): Patient was interviewed at bedside. She denies systemic symptoms such as fever or chills. Vitals are stable. She is eating, drinking, and in no acute distress. 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 No radiopaque foreign bodies. Moderate atherosclerosis. [id number] diffuse soft tissue edema. Small joint effusion. Palacios's cyst. US LEFT LE.4 x 1.1 x 2.8 cm anechoic avascular lesion in the popliteal region of the left knee consistent with a Palacios's cyst or popliteal cyst MRI LEFT KNEE: 1. Diffuse subcutaneous edema, edema of popliteal fossa and large subcutaneous fluid collection anterior and lateral to the knee that may represent seroma, hematoma or abscess. Suggest further evaluation with aspiration Suggest, cytology and culture. 2. Medial and lateral meniscal tears. 3. Moderate-sized suprapatellar joint effusion. 4. Small Palacios's cyst. 5. Mild bicompartmental osteoarthritis. --- Procedures: On March 04, 2025, after initial refusal by IR, I performed a bedside aspiration of the left knee at the superolateral aspect. Approximately 15 mL of serosanguineous fluid was obtained and sent for repeat cell count and culture.Noted mild bleeding from Aspiration side , after discussion with bedside nurse I was informed patient was given Lovenox recently, Patient was treated with pressure dressing with good bleeding control. Nursing staff instructed to monitor dressing and notify Orthopedics of any saturation due to the patients anticoagulated state. IR later agreed to perform further aspiration and obtained additional fluid in the afternoon of March 04, 2025.That was also sent to Lab for Cell Count and Culture, Fluid was not purulent but serosanguineous 20 ml of fluid collected by IR. --- Assessment Cellulitis Left knee Left knee Effusion Pre Patellar Bursitis Left knee Palacios Cyst Left knee Poorly controlled DM2 Right BKA PAD DVT Left upper extremity Hx of CVA Plan: 1. Await repeat cell count, gram stain, and culture from both aspirations. 2. Continue IV antibiotics per Infectious Disease recommendations/Per medicine team managing patient 3. Monitor for clinical signs of abscess or systemic infection. 4. Consider surgical I&D if Labs / Apiration fluid positive for infection 5. Maintain close nursing observation of aspiration site due to anticoagulation. 6. Discussed case with Dr. Arango who agreed with above, Advised once final lab results are available to rediccuss case and reestablish management plan 7. Medicine Team, Bedside Nurse to contact Ortho with Labs or as needed for any changes in patient s/s or any new or other concerns Plan discussed with: Patient, Other (bedside nurse) Visit Coding Surgery Date of Service if different f: Mar 03, 2025 Billing Provider: RONNY VITALE Surgery Visit Codes: 11146 - INP CONSULT <55 MIN RONNY VITALE PAC Mar 04, 2025 19:34
[2025-03-04 20:00] VITALS: PULSE 86
[2025-03-04 21:00] VITALS: BP 128/73; PULSE 89; RESP 17; TEMP 97.4; O2SAT 95
[2025-03-05] VITALS (8 sets, daily range): BP systolic 106–154; BP diastolic 67–90; PULSE 78–97; RESP 16–20; TEMP 97.3–98.6; O2SAT 94–98
[2025-03-05 08:21] LABS: CRP High Sensitivity 5.55 mg/dL (<1.0)
[2025-03-05 09:13] LABS: Erythrocyte Sedimentation Rate 121 mm/hr (0-20)
--- NOTE | 2025-03-05 11:01 | DVHPN2 ---
Progress Note Date Seen: Mar 05, 2025 Medical Necessity Reason Pt with a Central, PICC or Fol: Yes The following are medically ne: Almaraz Catheter Subjective Patient reports: No new complaints Other Systems: Patient seen and examined by myself today in follow-up Objective vital signs Vital Sign Date Time Temp Pulse Resp B/P (MAP) Pulse Ox O2 Delivery O2 Flow Rate FiO2 03/05/25 09:25 154/80 03/05/25 09:20 97.5 97 18 98 97.5 03/05/25 08:00 Room Air* 0 21 Total Intake and Output 03/04/25 03/04/25 03/05/25 15:00 23:00 07:00 Intake Total 50 ml 2062 ml 1600 ml Output Total 675 ml Balance 50 ml 1387 ml 1600 ml medications Current Medications Medications Dose Ordered Sig/John Route Start Time Stop Time Status Last Admin Dose Admin Ondansetron HCl 4 mg Q4HP PRN IV 02/19/25 13:45 03/02/25 22:04 4 MG Docusate Sodium 100 mg BIDPRN PRN PO 02/19/25 13:45 03/04/25 17:41 100 MG Acetaminophen 650 mg Q6HP PRN PO 02/19/25 13:45 02/19/25 21:37 650 MG Nitroglycerin 0.4 mg Q5MINP PRN SL 02/19/25 13:45 Diagnostic Test (Pha) 1 strip ACHS 02/19/25 17:00 03/05/25 06:33 1 STRIP Dextrose 50 ml UD PRN IV 02/19/25 15:45 Duloxetine HCl 30 mg DAILY PO 02/20/25 10:00 03/05/25 09:15 30 MG Gemfibrozil 600 mg BIDAC PO 02/19/25 17:00 03/05/25 06:33 600 MG Lamotrigine 25 mg DAILY PO 02/20/25 10:00 03/05/25 09:16 25 MG Potassium Chloride 100 ml @ 50 mls/hr Q2H IV 02/19/25 23:15 02/20/25 05:14 Cancel Melatonin 10 mg HS PO 02/20/25 22:00 03/04/25 21:24 10 MG Potassium Chloride 100 ml @ 50 mls/hr Q2H IV 02/20/25 07:15 02/20/25 11:14 UNV Atorvastatin Calcium 40 mg HS PO 02/20/25 22:00 03/04/25 21:25 40 MG Aspirin 81 mg DAILY PO 02/21/25 10:00 03/05/25 09:16 81 MG Nifedipine 30 mg DAILY PO 02/21/25 10:00 03/05/25 09:25 30 MG Lactated Ringer's 1,000 ml @ 75 mls/hr [id number] IV 02/21/25 15:45 03/04/25 19:16 75 MLS/HR Insulin Glargine 10 units BID@0700,2200 SC 02/23/25 22:00 03/04/25 21:46 10 UNITS Lorazepam 1 mg Q8HPRN PRN PO 02/23/25 14:15 02/28/25 21:38 1 MG Nicotine 1 patch DAILY TD 02/23/25 14:48 03/05/25 09:17 1 PATCH Hydralazine HCl 10 mg Q6HPRN IV 02/24/25 12:00 03/05/25 01:23 10 MG Vancomycin HCl 0 ml @ 0 mls/hr UD IV 02/26/25 10:30 Meropenem 50 ml @ 17 mls/hr Q12HR IV 02/26/25 22:00 03/05/25 09:30 17 MLS/HR Acetaminophen/ Hydrocodone Bitart 1 tab Q4HPRN PRN PO 02/26/25 10:30 03/05/25 09:29 1 TAB Enoxaparin Sodium 40 mg DAILY SC 02/27/25 10:00 03/05/25 09:17 40 MG Insulin Human Regular ACHS SC 02/28/25 17:00 03/04/25 21:45 6 UNITS Gabapentin 100 mg TID PO 03/02/25 14:00 03/05/25 06:33 100 MG Calcium Acetate 1,334 mg TIDWMEALS PO 03/04/25 12:00 03/05/25 07:52 1,334 MG Ergocalciferol 50,000 unit Q7D PO 03/04/25 11:45 03/04/25 17:41 50,000 UNIT Examination: LUNGS:Normal, CVS:Normal, MSK:Normal laboratory and microbiology Laboratory Tests 03/05/25 05:08 03/04/25 05:17 03/03/25 04:41 Test 03/03/25 04:41 Range/Units Serum Glucose 95 74-106 mg/dL Microbiology Date/Time Source Procedure Growth Status 03/04/25 13:29 Aspirate Gram Stain - Final Resulted 03/04/25 13:29 Aspirate Body Fluid Culture - Preliminary Resulted 02/19/25 17:27 Urine - Almaraz Port Urine Culture - Final Complete 02/19/25 13:14 Blood Blood Culture - Final NO GROWTH AFTER 5 DAYS OF INCUBATION. Complete Problem List/Assessment/Plan Problem List/Assessment/Plan Acute kidney injury superimposed Chronic Kidney Disease secondary hemodynamic mediated Left leg cellulitis Left knee effusion Peripheral vascular disease , hx BKA Diabetes poorly controlled CVA Hyperkalemia Hyperphosphatemia Vitamin-D deficiency Recommendations Kidney function slightly improved today Increased urine output Strict I&Os Renal diet IV Abx Calcium acetate t.i.d. with meals Ergocalciferol 43315 units p.o. q.week Insulin sliding scale Kidney ultrasound reported bilateral echogenic kidney Orthopedic consult We will continue to follow up Plan discussed with: Patient My Orders My Orders Orders - SHAINA VARGAS MD Procedure Category Date Status Time Calcium Acetate PHA 03/04/25 In Process Capsule (Phoslo 12:00 Ergocalciferol PHA 03/04/25 In Process (Vitamin D 50,000 11:45 Dietary Evaluation Review Comments: 1) Esau 1 pk BID 2) Refer Freight Router on DC 3) Continue current plan of care Expected Outcomes/Goals: Pt will meet >75% estimated needs Fu 3-5 days SHAINA VARGAS MD Mar 05, 2025 11:01
--- NOTE | 2025-03-05 14:29 | DVHPN2 ---
Subjective Denies any symptoms Reviewed: Care Plan, H&P, Labs, Medications, Previous Orders, Radiology, Other (Consultations) Changes from previous H/P or p: No Changes General: Per HPI Objective Vitals Vital Signs Date Time Temp Pulse Resp B/P (MAP) Pulse Ox O2 Delivery O2 Flow Rate FiO2 03/05/25 12:45 125/72 03/05/25 09:20 97.5 97 18 98 97.5 03/05/25 08:00 Room Air* 0 21 Intake/Output Intake and Output 03/05/25 07:00 Intake Total 3712 ml Output Total 675 ml Balance 3037 ml Intake Oral 1912 ml IV Total 850 ml Intraperitoneal 950 ml Output Urine Total 675 ml General Appearance: Alert, Oriented X3, Cooperative, No acute distress HEENT: Atraumatic, PERRLA Lungs: Clear to auscultation, Normal air movement Cardiovascular: Regular rate, Normal S1, Normal S2 Abdomen: Normal bowel sounds, Soft, No tenderness Extremities: Other Neuro: Normal speech, Other Skin: Dry, Intact, Wounds Psych/Mental Status: Mental status NL, Mood NL Medications Current Medications Medications Dose Ordered Sig/John Route Start Time Stop Time Status Last Admin Dose Admin Ondansetron HCl 4 mg Q4HP PRN IV 02/19/25 13:45 03/02/25 22:04 4 MG Docusate Sodium 100 mg BIDPRN PRN PO 02/19/25 13:45 03/04/25 17:41 100 MG Acetaminophen 650 mg Q6HP PRN PO 02/19/25 13:45 02/19/25 21:37 650 MG Nitroglycerin 0.4 mg Q5MINP PRN SL 02/19/25 13:45 Diagnostic Test (Pha) 1 strip ACHS 02/19/25 17:00 03/05/25 11:14 1 STRIP Dextrose 50 ml UD PRN IV 02/19/25 15:45 Duloxetine HCl 30 mg DAILY PO 02/20/25 10:00 03/05/25 09:15 30 MG Gemfibrozil 600 mg BIDAC PO 02/19/25 17:00 03/05/25 06:33 600 MG Lamotrigine 25 mg DAILY PO 02/20/25 10:00 03/05/25 09:16 25 MG Potassium Chloride 100 ml @ 50 mls/hr Q2H IV 02/19/25 23:15 02/20/25 05:14 Cancel Melatonin 10 mg HS PO 02/20/25 22:00 03/04/25 21:24 10 MG Potassium Chloride 100 ml @ 50 mls/hr Q2H IV 02/20/25 07:15 02/20/25 11:14 UNV Atorvastatin Calcium 40 mg HS PO 02/20/25 22:00 03/04/25 21:25 40 MG Aspirin 81 mg DAILY PO 02/21/25 10:00 03/05/25 09:16 81 MG Nifedipine 30 mg DAILY PO 02/21/25 10:00 03/05/25 09:25 30 MG Lactated Ringer's 1,000 ml @ 75 mls/hr [id number] IV 02/21/25 15:45 03/05/25 11:19 75 MLS/HR Insulin Glargine 10 units BID@0700,2200 SC 02/23/25 22:00 03/04/25 21:46 10 UNITS Lorazepam 1 mg Q8HPRN PRN PO 02/23/25 14:15 02/28/25 21:38 1 MG Nicotine 1 patch DAILY TD 02/23/25 14:48 03/05/25 09:17 1 PATCH Hydralazine HCl 10 mg Q6HPRN IV 02/24/25 12:00 03/05/25 12:45 10 MG Vancomycin HCl 0 ml @ 0 mls/hr UD IV 02/26/25 10:30 Meropenem 50 ml @ 17 mls/hr Q12HR IV 02/26/25 22:00 03/05/25 09:30 17 MLS/HR Acetaminophen/ Hydrocodone Bitart 1 tab Q4HPRN PRN PO 02/26/25 10:30 03/05/25 09:29 1 TAB Enoxaparin Sodium 40 mg DAILY SC 02/27/25 10:00 03/05/25 09:17 40 MG Insulin Human Regular ACHS SC 02/28/25 17:00 03/05/25 11:16 2 UNITS Gabapentin 100 mg TID PO 03/02/25 14:00 03/05/25 13:54 100 MG Calcium Acetate 1,334 mg TIDWMEALS PO 03/04/25 12:00 03/05/25 12:45 1,334 MG Ergocalciferol 50,000 unit Q7D PO 03/04/25 11:45 03/04/25 17:41 50,000 UNIT Laboratory Results Laboratory Tests 03/03/25 04:41 03/04/25 05:17 03/05/25 05:08 Urinalysis Test 02/19/25 17:27 03/04/25 05:00 Urine Color Colorless (Yellow) Urine Clarity Clear (Clear) Urine pH 6.5 (5.0-9.0) Urine Specific [place] 1.008 (1.001-1.035) Urine Protein 2+ (Negative) H Urine Ketones 1+ (Negative) H Urine Blood 1+ /uL (Negative) H Urine Nitrite Negative (Negative) Urine Bilirubin Negative (Negative) Urine Urobilinogen Normal mg/dL (Negative) Urine Leukocyte Esterase Negative /uL (Negative) Urine RBC 6 /hpf (0 - 4) Urine Microscopic WBC 2 /HPF (0-5) Urine Squamous Epithelial Cells Few /hpf (<5) Urine Bacteria None seen /hpf (None Seen) Urine Glucose 2+ mg/dL (Normal) H Urine Creatinine 25.51 mg/dL (30.0-125.0) L Urine Protein/Creatinine Ratio 14.00 Urine Sodium 80 mmol/L (40-220) Urine Total Protein 357.1 mg/dL (1-14) H Microbiology Microbiology Date/Time Source Procedure Growth Status 03/04/25 13:29 Aspirate Gram Stain - Final Resulted 03/04/25 13:29 Aspirate Body Fluid Culture - Preliminary Resulted 02/19/25 17:27 Urine - Almaraz Port Urine Culture - Final Complete 02/19/25 13:14 Blood Blood Culture - Final NO GROWTH AFTER 5 DAYS OF INCUBATION. Complete Labs and/or images reviewed: Labs reviewed by me, Image(s) reviewed by me Assessment/Plan Assessment/Plan Impression: Multiple acute/subacute strokes Left lower extremity cellulitis Rule out left septic knee Hypokalemia Acute kidney injury likely hemodynamically mediated due to vasomotor nephropathy Chronic kidney disease Peripheral vascular disease status post right [id number] amputation 6 months ago Poorly controlled type 2 diabetes Sepsis Hypertension Mixed hyperlipidemia Polysubstance use disorder Diabetic neuropathy -? Suicidal ideation Plan: -events: Patient had MRI of the knee. Patient had joint aspiration yesterday. Patient continues to have severe redness and swelling. We will reassess for possible orthoscopic intervention. -continue antibiotic therapy with Meropenem , vancomycin -repeat psychiatry consultation given patient states she was no longer with suicidal ideation only really depressed -continue antidepressants -consider MRI of the left knee if effusion returned -MAGALIS ruled out endocarditis, and residual thrombus -continue anticoagulation -repeat labs in a.m. Total time spent with patient discussing and formulating plan of care: 35 minutes. This medical document was created using an electronic medical record system with [employer] dictation system. Although this document has been carefully reviewed, there may still be some phonetic and typographical errors. These areas are purely typographical due to imperfections of the software programs, and do not reflect any compromise in the patient's medical care. Plan discussed with: Patient, Other (RN) Date of Service: Mar 05, 2025 Billing Provider: JUSTIN BONILLA NP Common Visit Codes: [id number] INP/OBS CARE(HIGH) JUSTIN BONILLA NP Mar 05, 2025 14:29
--- NOTE | 2025-03-05 17:24 | DVHPN2 ---
Progress Note - Dictate Date Seen: Mar 05, 2025 Medical Necessity Reason Pt with a Central, PICC or Fol: Yes The following are medically ne: Lamaraz Catheter Subjective Patient was seen and evaluated in follow up. No overnight events. Patient is complaining of left knee pain, redness and swelling. HOSPICE VOLUNTEER 1.88. Telemetry reviewed. vital signs Vital Sign Date Time Temp Pulse Resp B/P (MAP) Pulse Ox O2 Delivery O2 Flow Rate FiO2 03/05/25 12:45 125/72 03/05/25 09:20 97.5 97 18 98 97.5 03/05/25 08:00 Room Air* 0 21 Total Intake and Output 03/04/25 03/04/25 03/05/25 15:00 23:00 07:00 Intake Total 50 ml 2062 ml 1600 ml Output Total 675 ml Balance 50 ml 1387 ml 1600 ml medications Current Medications Medications Dose Ordered Sig/John Route Start Time Stop Time Status Last Admin Dose Admin Ondansetron HCl 4 mg Q4HP PRN IV 02/19/25 13:45 03/02/25 22:04 4 MG Docusate Sodium 100 mg BIDPRN PRN PO 02/19/25 13:45 03/04/25 17:41 100 MG Acetaminophen 650 mg Q6HP PRN PO 02/19/25 13:45 02/19/25 21:37 650 MG Nitroglycerin 0.4 mg Q5MINP PRN SL 02/19/25 13:45 Diagnostic Test (Pha) 1 strip ACHS 02/19/25 17:00 03/05/25 11:14 1 STRIP Dextrose 50 ml UD PRN IV 02/19/25 15:45 Duloxetine HCl 30 mg DAILY PO 02/20/25 10:00 03/05/25 09:15 30 MG Gemfibrozil 600 mg BIDAC PO 02/19/25 17:00 03/05/25 06:33 600 MG Lamotrigine 25 mg DAILY PO 02/20/25 10:00 03/05/25 09:16 25 MG Potassium Chloride 100 ml @ 50 mls/hr Q2H IV 02/19/25 23:15 02/20/25 05:14 Cancel Melatonin 10 mg HS PO 02/20/25 22:00 03/04/25 21:24 10 MG Potassium Chloride 100 ml @ 50 mls/hr Q2H IV 02/20/25 07:15 02/20/25 11:14 UNV Atorvastatin Calcium 40 mg HS PO 02/20/25 22:00 03/04/25 21:25 40 MG Aspirin 81 mg DAILY PO 02/21/25 10:00 03/05/25 09:16 81 MG Nifedipine 30 mg DAILY PO 02/21/25 10:00 03/05/25 09:25 30 MG Lactated Ringer's 1,000 ml @ 75 mls/hr [id number] IV 02/21/25 15:45 03/05/25 11:19 75 MLS/HR Insulin Glargine 10 units BID@0700,2200 SC 02/23/25 22:00 03/04/25 21:46 10 UNITS Lorazepam 1 mg Q8HPRN PRN PO 02/23/25 14:15 02/28/25 21:38 1 MG Nicotine 1 patch DAILY TD 02/23/25 14:48 03/05/25 09:17 1 PATCH Hydralazine HCl 10 mg Q6HPRN IV 02/24/25 12:00 03/05/25 12:45 10 MG Vancomycin HCl 0 ml @ 0 mls/hr UD IV 02/26/25 10:30 Meropenem 50 ml @ 17 mls/hr Q12HR IV 02/26/25 22:00 03/05/25 09:30 17 MLS/HR Acetaminophen/ Hydrocodone Bitart 1 tab Q4HPRN PRN PO 02/26/25 10:30 03/05/25 09:29 1 TAB Enoxaparin Sodium 40 mg DAILY SC 02/27/25 10:00 03/05/25 09:17 40 MG Insulin Human Regular ACHS SC 02/28/25 17:00 03/05/25 11:16 2 UNITS Gabapentin 100 mg TID PO 03/02/25 14:00 03/05/25 06:33 100 MG Calcium Acetate 1,334 mg TIDWMEALS PO 03/04/25 12:00 03/05/25 12:45 1,334 MG Ergocalciferol 50,000 unit Q7D PO 03/04/25 11:45 03/04/25 17:41 50,000 UNIT objective GENERAL: Awake, alert, oriented. LUNGS: Clear. CARDIOVASCULAR: Heart sounds are good. ABDOMEN: Soft. laboratory and microbiology Laboratory Tests 03/05/25 05:08 03/04/25 05:17 03/03/25 04:41 Test 03/03/25 04:41 Range/Units Serum Glucose 95 74-106 mg/dL Problem List Multiple acute/subacute strokes. Hypokalemia. Acute kidney injury. Hypertension, newly diagnosed. Insulin-dependent diabetes mellitus. Status post right BKA. Dyslipidemia. Polysubstance use disorder. Left lower extremity cellulitis. Peripheral vascular disease status post right tzqhn-[id number] amputation 6 months ago. Sepsis. Diabetic neuropathy. Assessment/Plan Continued all current supportive medical care. [place] for pain management. Aspirin, Lipitor. DVT prophylactics. IV Hydralazine for SBP >16. IV antibiotics as ordered. Nifedipine. Additional plan as per the hospital course. Dietary Evaluation Review Comments: 1) Esau 1 pk BID 2) Refer Vice President Lending on DC 3) Continue current plan of care Expected Outcomes/Goals: Pt will meet >75% estimated needs Fu 3-5 days Plan discussed with: Patient YANIRA WINN MD Mar 05, 2025 13:33
[2025-03-05] MEDS: AMPICILLIN & SULBACTAM SODIUM 3 GM in SODIUM CHL 0.9% 100 ML IV SCH (18:15)
--- NOTE | 2025-03-05 18:56 | DVHPN2 ---
Progress Note Progress Note Patient Name: Edie Kaur Unit Number: [id number] Date of : 1970 Patient Status: Admitted Inpatient Attending Doctor: Scooby Alanis Np Date of Consultation: March 03, 2025 Consulting Service: Internal Medicine Reason for Consult: Evaluation of left knee swelling and erythema, concern for infectious etiology vs inflammatory process. --- History of Present Illness: Patient was initially admitted on February 19, 2025, for possible cerebrovascular accident (CVA). During the hospital course, she was also found to have a left upper extremity DVT, Left foot Ulcers, Left knee swelling. Ortho was consulted on February for left knee erythema, swelling and pain. On my interview patient was in no distress and able to answer all my questions. She reports left knee swelling Over the past 2-3 weeks, she developed swelling, erythema with pain gradually worsening to where it became painful to WB on left knee without pain.On question of her ambulatory status she reports she "crawls" when at home after her Right BKA, Does not ambulate without supprot dev ice/wheelchair , rated left knee pain for last 2-3 weeks at 45/10 mainly with palpation and motion. Reports recent worsening of redness progressing proximally over the lateral aspect of her thigh. Pt also being treated by medicine team for DVT Left upper extremity at this time. No fever, Chills, Nausea, Vomiting reported.No other Joint pain reported.The patient reports being on insulin therapy prior to admission, with home blood glucose levels not well controlled.Hx of Smoking and Marijuana use reported Patient was interviewed at bedside. She denies systemic symptoms such as fever or chills. Vitals are stable. She is eating, drinking, and in no acute distress. Update 03/05/2025: Follow up with patient today patient reports post aspiration her knee pain has improved so as her swelling. Patient reports compression bandage has also helped. Patient denies any fever chills other concerns today no shortness of breath chest pain or reported by patient. Past Medical History includes: Type 2 Diabetes Mellitus, historically poorly controlled; currently stable during hospitalization Hypertension Peripheral Artery Disease Anxiety and Depression Right Below-Knee Amputation (BKA) in July 2024, due to a diabetic foot ulcer.Osteomyelitis complicated by infection Physical Examination: Left Knee: ROM: 0120 degrees, pain rated 3-4/10 throughout motion Moderate diffuse swelling and warmth Erythema extending laterally into the distal quadriceps region with associated induration Mild Tenderness to palpation diffusely No open wounds or purulent drainage observed Left Lower Extremity: Soft compartments in both calf and quadriceps Ulcer left foot with dressing( Currently seen by hospital Janitorial Maintenance Worker, MRI foot pending) Neurovascular exam grossly intact: palpable dorsalis pedis and posterior tibial pulses, normal capillary refill, intact sensation and motor function distally Right Lower Extremity: Right BKA stump is well-healed with noted dressing over superficial skin lesion with no erythema, edema, warmth, discharge, no evidence of infection, ulceration, or pressure-related complications --- Imaging: CT There is no evidence of an acute fracture, dislocation, blastic, or lytic lesions. No radiopaque foreign bodies. Moderate atherosclerosis. [id number] diffuse soft tissue edema. Small joint effusion. Palacios's cyst. US LEFT LE.4 x 1.1 x 2.8 cm anechoic avascular lesion in the popliteal region of the left knee consistent with a Palacios's cyst or popliteal cyst MRI LEFT KNEE: 1. Diffuse subcutaneous edema, edema of popliteal fossa and large subcutaneous fluid collection anterior and lateral to the knee that may represent seroma, hematoma or abscess. Suggest further evaluation with aspiration Suggest, cytology and culture. 2. Medial and lateral meniscal tears. 3. Moderate-sized suprapatellar joint effusion. 4. Small Palacios's cyst. 5. Mild bicompartmental osteoarthritis. --- Procedures: On March 04, 2025, after initial refusal by IR, I performed a bedside aspiration of the left knee at the superolateral aspect. Approximately 15 mL of serosangu ineous fluid was obtained and sent for repeat cell count and culture.Noted mild bleeding from Aspiration side , after discussion with bedside nurse I was informed patient was given Lovenox recently, Patient was treated with pressure dressing with good bleeding control. Nursing staff instructed to monitor dressing and notify Orthopedics of any saturation due to the patients anticoagulated state. IR later agreed to perform further aspiration and obtained additional fluid in the afternoon of March 04, 2025.That was also sent to Lab for Cell Count and Culture, Fluid was not purulent but serosanguineous 20 ml of fluid collected by IR. --- 03/05/2025 lab results Gram stain and Preliminary culture reports shows possible Staph Auerus, Pending cell count. Assessment Cellulitis Left knee Left knee Effusion Pre Patellar Bursitis Left knee septic Left knee Palacios Cyst Left knee Poorly controlled DM2 Right BKA PAD DVT Left upper extremity Hx of CVA Plan: Gram stain and Preliminary culture reports shows possible Staph Auerus, Pending cell count. Case discussed with infantry weapons officer surgeon he recommended following for Medicine team taking care of this patient as inpatient: Patient to NPO Midnight . Obtain Consent for Left knee Washout / I&D for 03/06/2025 @[address] Cohen Medicine team to decide but recommend holding Lovenox for surgery Optimize patient for Surgery Plan discussed with: Patient, Other (bedside Nurse) Visit Coding Surgery Date of Service if different f: Mar 05, 2025 Billing Provider: RONNY VITALE Surgery Visit Codes: 91628 - INP CONSULT <55 MIN RONNY VITALE Mar 05, 2025 18:56
[2025-03-06] VITALS (9 sets, daily range): BP systolic 113–141; BP diastolic 72–84; PULSE 80–104; RESP 12–18; TEMP 97.9–98.3; O2SAT 94–98
[2025-03-06 06:22] LABS: Basophils # (auto) 0.1 10 ^3/uL (0-0.2); Basophils % (auto) 1.1 % (0.0-2.0); Eosinophils # (auto) 0.3 10 ^3/uL (0-0.8); Eosinophils % (auto) 2.9 % (0.0-7.0); Hematocrit 24.6 % (36.0-46.0); Hemoglobin 8.3 g/dL (12.2-16.2); Lymphocytes % (auto) 10.1 % (10.0-50.0); Mean Corpuscular Hemoglobin 28.2 pg (28.0-32.0); Mean Corpuscular Hgb Conc. 33.6 g/dL (32.0-36.0); Mean Corpuscular Volume 83.9 fL (80.0-100.0); Monocytes # (auto) 0.8 10 ^3/uL (0-1.3); Monocytes % (auto) 7.6 % (0.0-12.0); Neutrophils % (auto) 78.3 % (37.0-80.0); Nucleated Red Blood Cells % 0.1 %; Platelet Count (auto) 604 10^3/uL (140-450); Red Blood Cells 2.93 10^6/uL (4.0-5.20); Red Cell Distribution Width 16.9 % (11.8-14.3); White Blood Cell 10.2 10^3/uL (4.4-10.8)
--- NOTE | 2025-03-06 09:18 | DVHPN2 ---
Subjective Denies any symptoms Reviewed: Care Plan, H&P, Labs, Medications, Previous Orders, Radiology, Other (Consultations) Changes from previous H/P or p: No Changes General: Per HPI Objective Vitals Vital Signs Date Time Temp Pulse Resp B/P (MAP) Pulse Ox O2 Delivery O2 Flow Rate FiO2 03/06/25 09:12 98.1 89 17 129/80 (96) 97 98.1 03/05/25 20:00 Room Air* 0 21 Intake/Output Intake and Output 03/06/25 07:00 Intake Total 2400 ml Output Total 2300 ml Balance 100 ml Intake Oral 1150 ml IV Total 1250 ml Output Urine Total 2300 ml # Bowel Movements 3 General Appearance: Alert, Oriented X3, Cooperative, No acute distress HEENT: Atraumatic, PERRLA Lungs: Clear to auscultation, Normal air movement Cardiovascular: Regular rate, Normal S1, Normal S2 Abdomen: Normal bowel sounds, Soft, No tenderness Extremities: Other Neuro: Normal speech, Other Skin: Dry, Intact, Wounds Psych/Mental Status: Mental status NL, Mood NL Medications Current Medications Medications Dose Ordered Sig/John Route Start Time Stop Time Status Last Admin Dose Admin Ondansetron HCl 4 mg Q4HP PRN IV 02/19/25 13:45 03/06/25 02:55 4 MG Docusate Sodium 100 mg BIDPRN PRN PO 02/19/25 13:45 03/04/25 17:41 100 MG Acetaminophen 650 mg Q6HP PRN PO 02/19/25 13:45 02/19/25 21:37 650 MG Nitroglycerin 0.4 mg Q5MINP PRN SL 02/19/25 13:45 Diagnostic Test (Pha) 1 strip ACHS 02/19/25 17:00 03/06/25 06:37 1 STRIP Dextrose 50 ml UD PRN IV 02/19/25 15:45 Duloxetine HCl 30 mg DAILY PO 02/20/25 10:00 03/05/25 09:15 30 MG Gemfibrozil 600 mg BIDAC PO 02/19/25 17:00 03/05/25 17:19 600 MG Lamotrigine 25 mg DAILY PO 02/20/25 10:00 03/05/25 09:16 25 MG Potassium Chloride 100 ml @ 50 mls/hr Q2H IV 02/19/25 23:15 02/20/25 05:14 Cancel Melatonin 10 mg HS PO 02/20/25 22:00 03/05/25 22:14 10 MG Potassium Chloride 100 ml @ 50 mls/hr Q2H IV 02/20/25 07:15 02/20/25 11:14 UNV Atorvastatin Calcium 40 mg HS PO 02/20/25 22:00 03/05/25 22:14 40 MG Aspirin 81 mg DAILY PO 02/21/25 10:00 03/05/25 09:16 81 MG Nifedipine 30 mg DAILY PO 02/21/25 10:00 03/05/25 09:25 30 MG Lactated Ringer's 1,000 ml @ 75 mls/hr [id number] IV 02/21/25 15:45 03/05/25 11:19 75 MLS/HR Insulin Glargine 10 units BID@0700,2200 SC 02/23/25 22:00 03/06/25 06:17 10 UNITS Lorazepam 1 mg Q8HPRN PRN PO 02/23/25 14:15 02/28/25 21:38 1 MG Nicotine 1 patch DAILY TD 02/23/25 14:48 03/05/25 09:17 1 PATCH Hydralazine HCl 10 mg Q6HPRN IV 02/24/25 12:00 03/05/25 12:45 10 MG Acetaminophen/ Hydrocodone Bitart 1 tab Q4HPRN PRN PO 02/26/25 10:30 03/06/25 06:23 1 TAB Enoxaparin Sodium 40 mg DAILY SC 02/27/25 10:00 03/05/25 09:17 40 MG Insulin Human Regular ACHS SC 02/28/25 17:00 03/06/25 06:18 3 UNITS Gabapentin 100 mg TID PO 03/02/25 14:00 03/05/25 22:14 100 MG Calcium Acetate 1,334 mg TIDWMEALS PO 03/04/25 12:00 03/05/25 18:15 1,334 MG Ergocalciferol 50,000 unit Q7D PO 03/04/25 11:45 03/04/25 17:41 50,000 UNIT Ampicillin Sodium/ Sulbactam Sodium 3 gm/Sodium Chloride 100 ml @ 100 mls/hr Q6HR IV 03/05/25 17:00 03/06/25 05:16 100 MLS/HR Laboratory Results Laboratory Tests 03/03/25 04:41 03/06/25 04:52 Urinalysis Test 02/19/25 17:27 03/04/25 05:00 Urine Color Colorless (Yellow) Urine Clarity Clear (Clear) Urine pH 6.5 (5.0-9.0) Urine Specific [place] 1.008 (1.001-1.035) Urine Protein 2+ (Negative) H Urine Ketones 1+ (Negative) H Urine Blood 1+ /uL (Negative) H Urine Nitrite Negative (Negative) Urine Bilirubin Negative (Negative) Urine Urobilinogen Normal mg/dL (Negative) Urine Leukocyte Esterase Negative /uL (Negative) Urine RBC 6 /hpf (0 - 4) Urine Microscopic WBC 2 /HPF (0-5) Urine Squamous Epithelial Cells Few /hpf (<5) Urine Bacteria None seen /hpf (None Seen) Urine Glucose 2+ mg/dL (Normal) H Urine Creatinine 25.51 mg/dL (30.0-125.0) L Urine Protein/Creatinine Ratio 14.00 Urine Sodium 80 mmol/L (40-220) Urine Total Protein 357.1 mg/dL (1-14) H Microbiology Microbiology Date/Time Source Procedure Growth Status 03/04/25 13:29 Aspirate Gram Stain - Final Resulted 03/04/25 13:29 Aspirate Body Fluid Culture - Preliminary Resulted 02/19/25 17:27 Urine - [place] Urine Culture - Final Complete 02/19/25 13:14 Blood Blood Culture - Final NO GROWTH AFTER 5 DAYS OF INCUBATION. Complete Labs and/or images reviewed: Labs reviewed by me, Image(s) reviewed by me Assessment/Plan Assessment/Plan Impression: Multiple acute/subacute strokes Left lower extremity cellulitis Rule out left septic knee Hypokalemia Acute kidney injury likely hemodynamically mediated due to vasomotor nephropathy Chronic kidney disease Peripheral vascular disease status post right [id number] amputation 6 months ago Poorly controlled type 2 diabetes Sepsis Hypertension Mixed hyperlipidemia Polysubstance use disorder Diabetic neuropathy -? Suicidal ideation Plan: -events: No events overnight. Plans for left knee washout by Orthopedic surgery today. -antibiotics: Unasyn. WBC count now within normal limits -repeat psychiatry consultation given patient states she was no longer with suicidal ideation only really depressed -continue antidepressants -consider MRI of the left knee if effusion returned -MAGALIS ruled out endocarditis, and residual thrombus -continue anticoagulation -repeat labs in a.m. Total time spent with patient discussing and formulating plan of care: 35 minutes. This medical document was created using an electronic medical record system with [employer] dictation system. Although this document has been carefully reviewed, there may still be some phonetic and typographical errors. These areas are purely typographical due to imperfections of the software programs, and do not reflect any compromise in the patient's medical care. Plan discussed with: Patient, Other (RN) My Orders Orders - JUSTIN BONILLA NP Procedure Category Date Status Time Ampicillin & PHA 03/05/25 In Process Sulbactam Sodium 17:00 Date of Service: Mar 06, 2025 Billing Provider: JUSTIN BONILLA NP Common Visit Codes: [id number] INP/OBS CARE(HIGH) JUSTIN BONILLA NP Mar 06, 2025 09:18
[2025-03-06 09:59] LABS: Erythrocyte Sedimentation Rate 116 mm/hr (0-20)
[2025-03-06] MEDS: DEXTROSE (50%) 50ML SYRG IV PRN (11:34)
[2025-03-06] MEDS: LIDOCAINE 1% HCL (LOCAL ANESTH.) INJ 20ML MDV ONE (13:15)
[2025-03-06] MEDS: CELECOXIB 100 MG CAP ONE (13:20)
[2025-03-06] MEDS: GABAPENTIN 300 MG CAP ONE (13:20)
[2025-03-06] MEDS: ACETAMINOPHEN IV 100 ML IV ONE (13:20)
[2025-03-06] MEDS: VANCOMYCIN HCL 1000 MG VL ONE (13:21)
[2025-03-06] MEDS: ACETAMINOPHEN IV 1000 MG/100ML (10MG/ML) IV ONE (13:22)
[2025-03-06] MEDS: GABAPENTIN 300 MG CAP PO ONE (13:22)
[2025-03-06] MEDS: CELECOXIB 100 MG CAP PO ONE (13:22)
[2025-03-06] MEDS ORDERED: PROPOFOL 10 MG/ML 20 ML IV ONE (13:23)
[2025-03-06] MEDS ORDERED: LIDOCAINE HCL 2% TOP JELLY 5ML TOP ONE (13:23)
[2025-03-06] MEDS ORDERED: GLYCOPYRROLATE 0.2 MG/ML 1ML VIAL ONE (13:23)
[2025-03-06] MEDS ORDERED: LIDOCAINE 2% (LOCAL ANESTH.) PF 5ml SDV ONE (13:23)
[2025-03-06] MEDS ORDERED: DexAMETHasone SOD PHOS 10MG/1ML VIAL INJ ONE (13:23)
[2025-03-06] MEDS ORDERED: KETOROLAC TROMETH 30 MG/ML 1ML VIAL ONE (13:23)
[2025-03-06] MEDS ORDERED: ONDANSETRON HCL 4 MG/2 ML VIAL ONE (13:23)
[2025-03-06] MEDS ORDERED: KETAMINE 50mg/ML 1ml syringe ONE (13:24)
[2025-03-06] MEDS ORDERED: fentaNYL CITRATE 100 MCG/2 ML VL ONE (13:25)
[2025-03-06] MEDS ORDERED: SODIUM CHLORIDE LOCK 10 ML ONE (13:35)
[2025-03-06] MEDS ORDERED: PHENYLEPHRINE HCL 10 MG/ML VL ONE (13:35)
--- NOTE | 2025-03-06 14:13 | DVHPN2 ---
Progress Note Date Seen: Mar 06, 2025 Medical Necessity Reason Pt with a Central, PICC or Fol: Yes The following are medically ne: Almaraz Catheter Subjective Patient reports: No new complaints Other Systems: Patient seen and examined by myself today in follow-up Objective vital signs Vital Sign Date Time Temp Pulse Resp B/P (MAP) Pulse Ox O2 Delivery O2 Flow Rate FiO2 03/06/25 13:30 98.3 80 17 134/81 (98) 96 98.3 03/06/25 08:30 Room Air* 0 21 Total Intake and Output 03/05/25 03/05/25 03/06/25 15:00 23:00 07:00 Intake Total 50 ml 2000 ml 350 ml Output Total 1450 ml 850 ml Balance 50 ml 550 ml -500 ml medications Current Medications Medications Dose Ordered Sig/John Route Start Time Stop Time Status Last Admin Dose Admin Ondansetron HCl 4 mg Q4HP PRN IV 02/19/25 13:45 03/06/25 02:55 4 MG Docusate Sodium 100 mg BIDPRN PRN PO 02/19/25 13:45 03/04/25 17:41 100 MG Acetaminophen 650 mg Q6HP PRN PO 02/19/25 13:45 02/19/25 21:37 650 MG Nitroglycerin 0.4 mg Q5MINP PRN SL 02/19/25 13:45 Diagnostic Test (Pha) 1 strip ACHS 02/19/25 17:00 03/06/25 11:28 1 STRIP Dextrose 50 ml UD PRN IV 02/19/25 15:45 03/06/25 11:34 50 ML Duloxetine HCl 30 mg DAILY PO 02/20/25 10:00 03/06/25 10:42 30 MG Gemfibrozil 600 mg BIDAC PO 02/19/25 17:00 03/05/25 17:19 600 MG Lamotrigine 25 mg DAILY PO 02/20/25 10:00 03/06/25 10:42 25 MG Potassium Chloride 100 ml @ 50 mls/hr Q2H IV 02/19/25 23:15 02/20/25 05:14 Cancel Melatonin 10 mg HS PO 02/20/25 22:00 03/05/25 22:14 10 MG Potassium Chloride 100 ml @ 50 mls/hr Q2H IV 02/20/25 07:15 02/20/25 11:14 UNV Atorvastatin Calcium 40 mg HS PO 02/20/25 22:00 03/05/25 22:14 40 MG Aspirin 81 mg DAILY PO 02/21/25 10:00 03/05/25 09:16 81 MG Nifedipine 30 mg DAILY PO 02/21/25 10:00 03/06/25 10:42 30 MG Insulin Glargine 10 units BID@0700,2200 SC 02/23/25 22:00 03/06/25 06:17 10 UNITS Lorazepam 1 mg Q8HPRN PRN PO 02/23/25 14:15 02/28/25 21:38 1 MG Nicotine 1 patch DAILY TD 02/23/25 14:48 03/06/25 10:45 1 PATCH Hydralazine HCl 10 mg Q6HPRN IV 02/24/25 12:00 03/05/25 12:45 10 MG Acetaminophen/ Hydrocodone Bitart 1 tab Q4HPRN PRN PO 02/26/25 10:30 03/06/25 06:23 1 TAB Enoxaparin Sodium 40 mg DAILY SC 02/27/25 10:00 03/05/25 09:17 40 MG Insulin Human Regular ACHS SC 02/28/25 17:00 03/06/25 06:18 3 UNITS Gabapentin 100 mg TID PO 03/02/25 14:00 03/05/25 22:14 100 MG Calcium Acetate 1,334 mg TIDWMEALS PO 03/04/25 12:00 03/05/25 18:15 1,334 MG Ergocalciferol 50,000 unit Q7D PO 03/04/25 11:45 03/04/25 17:41 50,000 UNIT Ampicillin Sodium/ Sulbactam Sodium 3 gm/Sodium Chloride 100 ml @ 100 mls/hr Q6HR IV 03/05/25 17:00 03/06/25 11:39 100 MLS/HR Dextrose/Sodium Chloride 1,000 ml @ 75 mls/hr [id number] IV 03/06/25 13:00 Examination: LUNGS:Normal, CVS:Normal, MSK:Normal laboratory and microbiology Laboratory Tests 03/06/25 04:52 Test 03/06/25 04:52 Range/Units Serum Glucose Pending Microbiology Date/Time Source Procedure Growth Status 03/04/25 13:29 Aspirate Gram Stain - Final Resulted 03/04/25 13:29 Aspirate Body Fluid Culture - Preliminary Resulted 02/19/25 17:27 Urine - [place] Urine Culture - Final Complete 02/19/25 13:14 Blood Blood Culture - Final NO GROWTH AFTER 5 DAYS OF INCUBATION. Complete Problem List/Assessment/Plan Problem List/Assessment/Plan Acute kidney injury superimposed Chronic Kidney Disease secondary hemodynamic mediated Left leg cellulitis Left knee effusion Peripheral vascular disease , hx BKA Diabetes poorly controlled CVA Hyperkalemia Hyperphosphatemia Vitamin-D deficiency Recommendations Kidney function slightly improved today Increased urine output Strict I&Os Renal diet IV Abx Calcium acetate t.i.d. with meals Ergocalciferol 52863 units p.o. q.week Insulin sliding scale Kidney ultrasound reported bilateral echogenic kidney Orthopedic consult We will continue to follow up Plan discussed with: Patient Dietary Evaluation Review Comments: 1) [place] 1 pk BID 2) Refer Manager Legal on DC 3) Continue current plan of care Expected Outcomes/Goals: Pt will meet >75% estimated needs Fu 3-5 days SHAINA VARGAS MD Mar 06, 2025 14:13
[2025-03-06] MEDS ORDERED: NALOXONE HCL 0.4 MG/ML VIAL IV PRN (14:15)
[2025-03-06] MEDS ORDERED: oxyCODONE HCL 5MG TAB PO PRN (14:15)
[2025-03-06] MEDS ORDERED: ePHEDrine SULFATE 50 MG/ML AMP IV PRN (14:15)
[2025-03-06] MEDS ORDERED: hydrALAZINE HCL 20 MG/ML VL IV PRN (14:15)
[2025-03-06] MEDS ORDERED: FLUMAZENIL 0.1 MG/ML INJ 10ML MDV IV PRN (14:15)
[2025-03-06] MEDS ORDERED: ONDANSETRON HCL 4 MG/2 ML VIAL IV PRN (14:15)
[2025-03-06] MEDS ORDERED: fentaNYL CITRATE 100 MCG/2 ML VL IV PRN (14:15)
[2025-03-06] MEDS: BUPIVACAINE HCL 0.25% P/F 10 ML VIAL ONE (14:20)
[2025-03-06 14:22] LABS: Anion Gap 7 (5-15); Carbon Dioxide 20 mmol/L (20-31); Sodium 138 mmol/L (136-145)
[2025-03-06 14:28] LABS: BUN/Creatinine Ratio 33.3 (10.0-20.0)
[2025-03-06] MEDS: HYDROmorphone HCL 2 MG/ML VL/or syr IV PRN (14:40)
[2025-03-06 14:52] LABS: Blood Urea Nitrogen 64 mg/dL (9-23); Chloride 111 mmol/L (98-107); Glucose 159 mg/dL (74-106); Potassium 5.2 mmol/L (3.5-5.1)
[2025-03-06 15:30] LABS: Sodium 139 mmol/L (136-145)
[2025-03-06 15:31] LABS: Anion Gap 6 (5-15); Calcium 8.9 mg/dL (8.7-10.4); Carbon Dioxide 21 mmol/L (20-31)
[2025-03-06 15:36] LABS: BUN/Creatinine Ratio 34.1 (10.0-20.0)
[2025-03-06 15:47] LABS: Blood Urea Nitrogen 62 mg/dL (9-23); Chloride 112 mmol/L (98-107); Glucose 56 mg/dL (74-106)
[2025-03-06] MEDS: D5W/SOD CHL 0.45% 1,000 ML IV SCH (15:49)
--- NOTE | 2025-03-06 23:03 | DVHPN2 ---
Progress Note - Dictate Date Seen: Mar 06, 2025 Medical Necessity Reason Pt with a Central, PICC or Fol: Yes The following are medically ne: [place]maraz Catheter Subjective Patient was seen and evaluated in follow up. Patient is complaining of knee pain, worse with movement. Patient is scheduled for irrigation and debridement of left knee today. HGB 8.3, HCT 24.6, CEMENT CONVEYOR OPERATOR 1.94 GLUC 53. Telemetry reviewed. vital signs Vital Sign Date Time Temp Pulse Resp B/P (MAP) Pulse Ox O2 Delivery O2 Flow Rate FiO2 03/06/25 10:42 129/80 03/06/25 09:12 98.1 89 17 97 98.1 03/05/25 20:00 Room Air* 0 21 Total Intake and Output 03/05/25 03/05/25 03/06/25 15:00 23:00 07:00 Intake Total 50 ml 2000 ml 350 ml Output Total 1450 ml 850 ml Balance 50 ml 550 ml -500 ml medications Current Medications Medications Dose Ordered Sig/John Route Start Time Stop Time Status Last Admin Dose Admin Ondansetron HCl 4 mg Q4HP PRN IV 02/19/25 13:45 03/06/25 02:55 4 MG Docusate Sodium 100 mg BIDPRN PRN PO 02/19/25 13:45 03/04/25 17:41 100 MG Acetaminophen 650 mg Q6HP PRN PO 02/19/25 13:45 02/19/25 21:37 650 MG Nitroglycerin 0.4 mg Q5MINP PRN SL 02/19/25 13:45 Diagnostic Test (Pha) 1 strip ACHS 02/19/25 17:00 03/06/25 11:28 1 STRIP Dextrose 50 ml UD PRN IV 02/19/25 15:45 03/06/25 11:34 50 ML Duloxetine HCl 30 mg DAILY PO 02/20/25 10:00 03/06/25 10:42 30 MG Gemfibrozil 600 mg BIDAC PO 02/19/25 17:00 03/05/25 17:19 600 MG Lamotrigine 25 mg DAILY PO 02/20/25 10:00 03/06/25 10:42 25 MG Potassium Chloride 100 ml @ 50 mls/hr Q2H IV 02/19/25 23:15 02/20/25 05:14 Cancel Melatonin 10 mg HS PO 02/20/25 22:00 03/05/25 22:14 10 MG Potassium Chloride 100 ml @ 50 mls/hr Q2H IV 02/20/25 07:15 02/20/25 11:14 UNV Atorvastatin Calcium 40 mg HS PO 02/20/25 22:00 03/05/25 22:14 40 MG Aspirin 81 mg DAILY PO 02/21/25 10:00 03/05/25 09:16 81 MG Nifedipine 30 mg DAILY PO 02/21/25 10:00 03/06/25 10:42 30 MG Lactated Ringer's 1,000 ml @ 75 mls/hr [id number] IV 02/21/25 15:45 03/05/25 11:19 75 MLS/HR Insulin Glargine 10 units BID@0700,2200 SC 02/23/25 22:00 03/06/25 06:17 10 UNITS Lorazepam 1 mg Q8HPRN PRN PO 02/23/25 14:15 02/28/25 21:38 1 MG Nicotine 1 patch DAILY TD 02/23/25 14:48 03/06/25 10:45 1 PATCH Hydralazine HCl 10 mg Q6HPRN IV 02/24/25 12:00 03/05/25 12:45 10 MG Acetaminophen/ Hydrocodone Bitart 1 tab Q4HPRN PRN PO 02/26/25 10:30 03/06/25 06:23 1 TAB Enoxaparin Sodium 40 mg DAILY SC 02/27/25 10:00 03/05/25 09:17 40 MG Insulin Human Regular ACHS SC 02/28/25 17:00 03/06/25 06:18 3 UNITS Gabapentin 100 mg TID PO 03/02/25 14:00 03/05/25 22:14 100 MG Calcium Acetate 1,334 mg TIDWMEALS PO 03/04/25 12:00 03/05/25 18:15 1,334 MG Ergocalciferol 50,000 unit Q7D PO 03/04/25 11:45 03/04/25 17:41 50,000 UNIT Ampicillin Sodium/ Sulbactam Sodium 3 gm/Sodium Chloride 100 ml @ 100 mls/hr Q6HR IV 03/05/25 17:00 03/06/25 11:39 100 MLS/HR objective GENERAL: Awake, alert, oriented. LUNGS: Clear. CARDIOVASCULAR: Heart sounds are good. ABDOMEN: Soft. laboratory and microbiology Laboratory Tests 03/06/25 04:52 03/03/25 04:41 Test 03/03/25 04:41 Range/Units Serum Glucose 95 74-106 mg/dL Problem List Multiple acute/subacute strokes. Hypokalemia. Acute kidney injury. Hypertension, newly diagnosed. Insulin-dependent diabetes mellitus. Status post right BKA. Dyslipidemia. Polysubstance use disorder. Left lower extremity cellulitis. Peripheral vascular disease status post right gqqga-hox-[id number] amputation 6 months ago. Sepsis. Diabetic neuropathy. Assessment/Plan Continued all current supportive medical care. [place] for pain management. Aspirin, Lipitor. DVT prophylactics. IV Hydralazine for SBP >16. IV antibiotics as ordered. Nifedipine. Additional plan as per the hospital course. Dietary Evaluation Review Comments: 1) [place] 1 pk BID 2) Refer Property Man on DC 3) Continue current plan of care Expected Outcomes/Goals: Pt will meet >75% estimated needs Fu 3-5 days Plan discussed with: Patient YANIRA WINN MD Mar 06, 2025 11:54
[2025-03-07] VITALS (16 sets, daily range): BP systolic 119–138; BP diastolic 56–79; PULSE 56–110; RESP 16–19; TEMP 97.7–98.2; O2SAT 93–100
[2025-03-07 06:58] LABS: Anion Gap 7 (5-15)
[2025-03-07 07:04] LABS: BUN/Creatinine Ratio 31.1 (10.0-20.0)
[2025-03-07 07:06] LABS: Blood Urea Nitrogen 66 mg/dL (9-23); Calcium 8.7 mg/dL (8.7-10.4); Carbon Dioxide 17 mmol/L (20-31); Chloride 109 mmol/L (98-107); Glucose 258 mg/dL (74-106); Sodium 133 mmol/L (136-145)
[2025-03-07 07:22] LABS: Basophils # (auto) 0.1 10 ^3/uL (0-0.2); Eosinophils # (auto) 0 10 ^3/uL (0-0.8); Monocytes # (auto) 0.7 10 ^3/uL (0-1.3); White Blood Cell 13.5 10^3/uL (4.4-10.8)
[2025-03-07 07:23] LABS: Basophils % (auto) 0.5 % (0.0-2.0); Hematocrit 20.6 % (36.0-46.0); Lymphocytes # (auto) 1.1 10 ^3/uL (0.4-5.4); Lymphocytes % (auto) 7.9 % (10.0-50.0); Mean Corpuscular Hemoglobin 27.6 pg (28.0-32.0); Mean Corpuscular Hgb Conc. 32.3 g/dL (32.0-36.0); Mean Corpuscular Volume 85.4 fL (80.0-100.0); Monocytes % (auto) 5.3 % (0.0-12.0); Neutrophils # (auto) 11.7 10 ^3/uL (1.6-8.6); Neutrophils % (auto) 86.3 % (37.0-80.0); Platelet Count (auto) 567 10^3/uL (140-450); Red Blood Cells 2.41 10^6/uL (4.0-5.20); Red Cell Distribution Width 16.8 % (11.8-14.3)
[2025-03-07 07:28] LABS: Hemoglobin 6.6 g/dL (12.2-16.2)
[2025-03-07 08:03] LABS: Anisocytosis Slight; Platelet Estimate Increased
[2025-03-07] MEDS: SODIUM BICARB 8.4% 50Meq/50ml SYR INJ IV ONE (08:15)
[2025-03-07] MEDS: DEXTROSE (50%) 50ML SYRG IV ONE (08:15)
[2025-03-07] MEDS: ALBUTEROL SULF 2.5 MG/0.5ML(0.5%) NEB SOLN NEB ONE ×2 (08:22→11:58)
[2025-03-07] MEDS: InsuLIN REG 1unit/0.01ml Soln (100units/ml) IV ONE (08:28)
--- NOTE | 2025-03-07 09:54 | ECG ---
[facility] Test Date: 2025-03-07 Test Time: 09:52:40 Pat Name: MELISSA SALMON Department: Room: 0281T A Gender: F Nursing Aide: PB : 1970 Requested By: ISA LIN Order Number: [id number] Reading MD: Ezekiel Henry Measurements Intervals [place] Rate: 109 P: 47 NE: 134 QRS: 40 QRSD: 88 T: 42 QT: 335 QTc: 452 Interpretive Statements Sinus tachycardia Low voltage, extremity and precordial leads Electronically Signed On 03-12-2025 20:30:47 PDT by Ezekiel Henry Please click the below link to view image of tracing.
--- NOTE | 2025-03-07 11:40 | DVHPN2 ---
Progress Note Date Seen: Mar 07, 2025 Medical Necessity Reason Pt with a Central, PICC or Fol: Yes The following are medically ne: Almaraz Catheter Subjective Patient reports: No new complaints Other Systems: Patient seen and examined by myself today in follow-up Objective vital signs Vital Sign Date Time Temp Pulse Resp B/P (MAP) Pulse Ox O2 Delivery O2 Flow Rate FiO2 03/07/25 10:08 126/72 03/07/25 08:31 105 18 100 03/07/25 08:30 97.8 97.8 03/07/25 08:21 Room Air 03/07/25 08:21 0 21 Total Intake and Output 03/06/25 03/06/25 03/07/25 15:00 23:00 07:00 Intake Total 50 ml 250 ml 1600 ml Output Total 900 ml Balance 50 ml 250 ml 700 ml medications Current Medications Medications Dose Ordered Sig/John Route Start Time Stop Time Status Last Admin Dose Admin Ondansetron HCl 4 mg Q4HP PRN IV 02/19/25 13:45 03/06/25 02:55 4 MG Docusate Sodium 100 mg BIDPRN PRN PO 02/19/25 13:45 03/04/25 17:41 100 MG Acetaminophen 650 mg Q6HP PRN PO 02/19/25 13:45 02/19/25 21:37 650 MG Nitroglycerin 0.4 mg Q5MINP PRN SL 02/19/25 13:45 Diagnostic Test (Pha) 1 strip ACHS 02/19/25 17:00 03/07/25 06:20 1 STRIP Dextrose 50 ml UD PRN IV 02/19/25 15:45 03/06/25 11:34 50 ML Duloxetine HCl 30 mg DAILY PO 02/20/25 10:00 03/07/25 10:07 30 MG Gemfibrozil 600 mg BIDAC PO 02/19/25 17:00 03/07/25 06:19 600 MG Lamotrigine 25 mg DAILY PO 02/20/25 10:00 03/07/25 10:07 25 MG Potassium Chloride 100 ml @ 50 mls/hr Q2H IV 02/19/25 23:15 02/20/25 05:14 Cancel Melatonin 10 mg HS PO 02/20/25 22:00 03/06/25 21:12 10 MG Potassium Chloride 100 ml @ 50 mls/hr Q2H IV 02/20/25 07:15 02/20/25 11:14 UNV Atorvastatin Calcium 40 mg HS PO 02/20/25 22:00 03/06/25 21:12 40 MG Aspirin 81 mg DAILY PO 02/21/25 10:00 03/07/25 10:08 81 MG Nifedipine 30 mg DAILY PO 02/21/25 10:00 03/07/25 10:08 30 MG Insulin Glargine 10 units BID@0700,2200 SC 02/23/25 22:00 03/07/25 06:30 10 UNITS Lorazepam 1 mg Q8HPRN PRN PO 02/23/25 14:15 02/28/25 21:38 1 MG Nicotine 1 patch DAILY TD 02/23/25 14:48 03/07/25 10:17 1 PATCH Hydralazine HCl 10 mg Q6HPRN IV 02/24/25 12:00 03/05/25 12:45 10 MG Acetaminophen/ Hydrocodone Bitart 1 tab Q4HPRN PRN PO 02/26/25 10:30 03/06/25 17:46 1 TAB Enoxaparin Sodium 40 mg DAILY SC 02/27/25 10:00 03/07/25 10:09 40 MG Insulin Human Regular ACHS SC 02/28/25 17:00 03/07/25 06:33 4 UNITS Gabapentin 100 mg TID PO 03/02/25 14:00 03/07/25 06:19 100 MG Calcium Acetate 1,334 mg TIDWMEALS PO 03/04/25 12:00 03/07/25 10:07 1,334 MG Ergocalciferol 50,000 unit Q7D PO 03/04/25 11:45 03/04/25 17:41 50,000 UNIT Ampicillin Sodium/ Sulbactam Sodium 3 gm/Sodium Chloride 100 ml @ 100 mls/hr Q6HR IV 03/05/25 17:00 03/07/25 06:20 100 MLS/HR Dextrose/Sodium Chloride 1,000 ml @ 75 mls/hr [id number] IV 03/06/25 13:00 03/06/25 15:49 75 MLS/HR Oxycodone HCl 10 mg ONCE PRN PO 03/06/25 14:15 Examination: LUNGS:Normal, CVS:Normal, MSK:Normal laboratory and microbiology Laboratory Tests 03/07/25 05:23 Test 03/07/25 05:23 Range/Units Serum Glucose 258 H 74-106 mg/dL Microbiology Date/Time Source Procedure Growth Status 03/06/25 14:37 Knee Left Gram Stain - Final Resulted 03/06/25 14:37 Knee Left Anaerobic Culture - Preliminary Resulted 03/06/25 14:37 Knee Left Aerobic Culture - Preliminary Resulted 03/04/25 13:29 Aspirate Gram Stain - Final Complete 03/04/25 13:29 Body Fluid Culture - Final Staphylococcus aureus Complete 02/19/25 17:27 Urine - [place] Urine Culture - Final Complete 02/19/25 13:14 Blood Blood Culture - Final NO GROWTH AFTER 5 DAYS OF INCUBATION. Complete Problem List/Assessment/Plan Problem List/Assessment/Plan Acute kidney injury superimposed Chronic Kidney Disease secondary hemodynamic mediated Left leg cellulitis Left knee effusion Peripheral vascular disease , hx BKA Diabetes poorly controlled CVA Hyperkalemia Hyperphosphatemia Vitamin-D deficiency Recommendations Kidney function worsened today due to vancomycin toxicity and NSAIDs use DC Celebrex Increased urine output Strict I&Os Renal diet IV Abx Medical treatment for hyperkalemia Calcium acetate t.i.d. with meals Ergocalciferol 18357 units p.o. q.week Insulin sliding scale Kidney ultrasound reported bilateral echogenic kidney Orthopedic consult We will continue to follow up Plan discussed with: Patient Dietary Evaluation Review Comments: 1) Esau 1 pk BID 2) Refer Drop Forger Helper on DC 3) Continue current plan of care Expected Outcomes/Goals: Pt will meet >75% estimated needs Fu 3-5 days SHAINA VARGAS MD Mar 07, 2025 11:40
--- NOTE | 2025-03-07 11:44 | DVHOP2 ---
Operative Report - 2 Report Details Date: 03/07/25 Preop Diagnosis: Septic left patella bursitis Postop Diagnosis: Septic left patella bursitis Surgeon: Girish Cohen MD Anesthesiologist: Mahin TORRES Anesthesia: General, Local Consent: The patient was informed of the risks and benefits of the procedure. These include but are not limited to complications of anesthesia, postoperative infection, incomplete relief of symptoms, recurrence of symptoms, damage to blood vessels, nerves and tendons, deep venous thrombosis, pulmonary embolism and possible need for repeat surgery in the future. Estimated Blood Loss: 5 cc Indications for Surgery: staph aureus growing in left patella bursa aspiration Name of Procedure Performed Irrigation and debridement of left knee, left patella bursectomy Procedure Details Procedure Details: After the induction of anesthesia, time-out was carried out to verify patient, procedure to be done, and site to be operated on. The patient was cleared medically prior to surgery. The extremity was scrubbed, prepped, and draped in a sterile manner. A longitudinal prepatellar incision was made overlying the bursa. A significant amount of purlence was evacuated, and pulse lavage irrigation was used to clean out the remainder of tissue. Necrotic tissue debrided of skin and fat and bursa. Tendon was all viable. Tendon and patella moved as one without any injury. Wound irrigated with aricept. Vanco poweder placed in wound. Wound then closed with 0-monocryl followed by roxanne. The patient was placed in a fresh new knee immobilizer and brought from the operating room in stable condition. Specimen: left knee culture Condition Fair Disposition Still a Patient GIRISH COHEN MD Mar 07, 2025 11:44
[2025-03-07] MEDS ORDERED: DEXTROSE (50%) 50ML SYRG IV ONE (11:45)
[2025-03-07] MEDS ORDERED: CALCIUM GLUC 1,000mg/50ml-NS 50 ML IV ONE (11:45)
[2025-03-07] MEDS ORDERED: FUROSEMIDE 20 MG/2 ML VIAL IV ONE (11:45)
[2025-03-07] MEDS ORDERED: InsuLIN REG 1unit/0.01ml Soln (100units/ml) IV ONE (11:45)
[2025-03-07] MEDS ORDERED: SODIUM BICARB 50mEq/50ml Vial 50 ML in SOD CHL 0.45% 1,000 ML IV SCH (11:45)
--- NOTE | 2025-03-07 12:02 | DVHPN2 ---
Progress Note - Dictate Date Seen: Mar 07, 2025 Medical Necessity Reason Pt with a Central, PICC or Fol: Yes The following are medically ne: Almaraz Catheter Subjective Patient was seen and evaluated in follow up. Patient underwent irrigation and debridement of left knee and tolerated procedure well. Patient is complaining of discomfort at debridement site. WBC 13.5, HGB 6.6, HCT 20.6, K 6, CL 109, CO2 17, BUN 66, SPECIALIST EMPLOYEE LABOR RELATIONS 2.12. Telemetry reviewed. vital signs Vital Sign Date Time Temp Pulse Resp B/P (MAP) Pulse Ox O2 Delivery O2 Flow Rate FiO2 03/07/25 10:08 126/72 03/07/25 08:31 105 18 100 03/07/25 08:30 97.8 97.8 03/07/25 08:21 Room Air 03/07/25 08:21 0 21 Total Intake and Output 03/06/25 03/06/25 03/07/25 15:00 23:00 07:00 Intake Total 50 ml 250 ml 1600 ml Output Total 900 ml Balance 50 ml 250 ml 700 ml medications Current Medications Medications Dose Ordered Sig/John Route Start Time Stop Time Status Last Admin Dose Admin Ondansetron HCl 4 mg Q4HP PRN IV 02/19/25 13:45 03/06/25 02:55 4 MG Docusate Sodium 100 mg BIDPRN PRN PO 02/19/25 13:45 03/04/25 17:41 100 MG Acetaminophen 650 mg Q6HP PRN PO 02/19/25 13:45 02/19/25 21:37 650 MG Nitroglycerin 0.4 mg Q5MINP PRN SL 02/19/25 13:45 Diagnostic Test (Pha) 1 strip ACHS 02/19/25 17:00 03/07/25 06:20 1 STRIP Dextrose 50 ml UD PRN IV 02/19/25 15:45 03/06/25 11:34 50 ML Duloxetine HCl 30 mg DAILY PO 02/20/25 10:00 03/07/25 10:07 30 MG Gemfibrozil 600 mg BIDAC PO 02/19/25 17:00 03/07/25 06:19 600 MG Lamotrigine 25 mg DAILY PO 02/20/25 10:00 03/07/25 10:07 25 MG Potassium Chloride 100 ml @ 50 mls/hr Q2H IV 02/19/25 23:15 02/20/25 05:14 Cancel Melatonin 10 mg HS PO 02/20/25 22:00 03/06/25 21:12 10 MG Potassium Chloride 100 ml @ 50 mls/hr Q2H IV 02/20/25 07:15 02/20/25 11:14 UNV Atorvastatin Calcium 40 mg HS PO 02/20/25 22:00 03/06/25 21:12 40 MG Aspirin 81 mg DAILY PO 02/21/25 10:00 03/07/25 10:08 81 MG Nifedipine 30 mg DAILY PO 02/21/25 10:00 03/07/25 10:08 30 MG Insulin Glargine 10 units BID@0700,2200 SC 02/23/25 22:00 03/07/25 06:30 10 UNITS Lorazepam 1 mg Q8HPRN PRN PO 02/23/25 14:15 02/28/25 21:38 1 MG Nicotine 1 patch DAILY TD 02/23/25 14:48 03/07/25 10:17 1 PATCH Hydralazine HCl 10 mg Q6HPRN IV 02/24/25 12:00 03/05/25 12:45 10 MG Acetaminophen/ Hydrocodone Bitart 1 tab Q4HPRN PRN PO 02/26/25 10:30 03/06/25 17:46 1 TAB Enoxaparin Sodium 40 mg DAILY SC 02/27/25 10:00 03/07/25 10:09 40 MG Insulin Human Regular ACHS SC 02/28/25 17:00 03/07/25 06:33 4 UNITS Gabapentin 100 mg TID PO 03/02/25 14:00 03/07/25 06:19 100 MG Calcium Acetate 1,334 mg TIDWMEALS PO 03/04/25 12:00 03/07/25 10:07 1,334 MG Ergocalciferol 50,000 unit Q7D PO 03/04/25 11:45 03/04/25 17:41 50,000 UNIT Ampicillin Sodium/ Sulbactam Sodium 3 gm/Sodium Chloride 100 ml @ 100 mls/hr Q6HR IV 03/05/25 17:00 03/07/25 06:20 100 MLS/HR Dextrose/Sodium Chloride 1,000 ml @ 75 mls/hr [id number] IV 03/06/25 13:00 03/06/25 15:49 75 MLS/HR Oxycodone HCl 10 mg ONCE PRN PO 03/06/25 14:15 objective GENERAL: Awake, alert, oriented. LUNGS: Clear. CARDIOVASCULAR: Heart sounds are good. ABDOMEN: Soft. laboratory and microbiology Laboratory Tests 03/07/25 05:23 Test 03/07/25 05:23 Range/Units Serum Glucose 258 H 74-106 mg/dL Problem List Multiple acute/subacute strokes. Hypokalemia. Acute kidney injury. Hypertension, newly diagnosed. Insulin-dependent diabetes mellitus. Status post right BKA. Dyslipidemia. Polysubstance use disorder. Left lower extremity cellulitis. Peripheral vascular disease status post right [id number] amputation 6 months ago. Sepsis. Diabetic neuropathy. Assessment/Plan Continued all current supportive medical care. [place] for pain management. Aspirin, Lipitor. DVT prophylactics. IV Hydralazine for SBP >16. IV antibiotics as ordered. Nifedipine. Additional plan as per the hospital course. Dietary Evaluation Review Comments: 1) Esau 1 pk BID 2) Refer Golf Cart Maker on DC 3) Continue current plan of care Expected Outcomes/Goals: Pt will meet >75% estimated needs Fu 3-5 days Plan discussed with: Patient YANIRA WINN MD Mar 07, 2025 11:34
[2025-03-07] MEDS ORDERED: SODIUM ZIRCONIUM CYCL 10 GM PAK PO SCH (14:00)
--- NOTE | 2025-03-07 15:42 | DVHPN2 ---
Subjective Denies any symptoms Reviewed: Care Plan, H&P, Labs, Medications, Previous Orders, Radiology, Other (Consultations) Changes from previous H/P or p: No Changes General: Per HPI Objective Vitals Vital Signs Date Time Temp Pulse Resp B/P (MAP) Pulse Ox O2 Delivery O2 Flow Rate FiO2 03/07/25 12:30 97.9 85 18 121/76 (91) 96 97.9 03/07/25 11:58 Room Air 0.0 03/07/25 11:58 21 Intake/Output Intake and Output 03/07/25 06:59 Intake Total 1900 ml Output Total 900 ml Balance 1000 ml Intake Oral 800 ml IV Total 1100 ml Output Urine Total 900 ml # Bowel Movements 2 General Appearance: Alert, Oriented X3, Cooperative, No acute distress HEENT: Atraumatic, PERRLA Lungs: Clear to auscultation, Normal air movement Cardiovascular: Regular rate, Normal S1, Normal S2 Abdomen: Normal bowel sounds, Soft, No tenderness Extremities: Normal pulses, Other Neuro: Normal speech, Other Skin: Dry, Intact, Wounds Psych/Mental Status: Mental status NL, Mood NL Medications Current Medications Medications Dose Ordered Sig/John Route Start Time Stop Time Status Last Admin Dose Admin Ondansetron HCl 4 mg Q4HP PRN IV 02/19/25 13:45 03/06/25 02:55 4 MG Docusate Sodium 100 mg BIDPRN PRN PO 02/19/25 13:45 03/04/25 17:41 100 MG Acetaminophen 650 mg Q6HP PRN PO 02/19/25 13:45 02/19/25 21:37 650 MG Nitroglycerin 0.4 mg Q5MINP PRN SL 02/19/25 13:45 Diagnostic Test (Pha) 1 strip ACHS 02/19/25 17:00 03/07/25 11:30 1 STRIP Dextrose 50 ml UD PRN IV 02/19/25 15:45 03/06/25 11:34 50 ML Duloxetine HCl 30 mg DAILY PO 02/20/25 10:00 03/07/25 10:07 30 MG Gemfibrozil 600 mg BIDAC PO 02/19/25 17:00 03/07/25 06:19 600 MG Lamotrigine 25 mg DAILY PO 02/20/25 10:00 03/07/25 10:07 25 MG Potassium Chloride 100 ml @ 50 mls/hr Q2H IV 02/19/25 23:15 02/20/25 05:14 Cancel Melatonin 10 mg HS PO 02/20/25 22:00 03/06/25 21:12 10 MG Potassium Chloride 100 ml @ 50 mls/hr Q2H IV 02/20/25 07:15 02/20/25 11:14 UNV Atorvastatin Calcium 40 mg HS PO 02/20/25 22:00 03/06/25 21:12 40 MG Aspirin 81 mg DAILY PO 02/21/25 10:00 03/07/25 10:08 81 MG Nifedipine 30 mg DAILY PO 02/21/25 10:00 03/07/25 10:08 30 MG Insulin Glargine 10 units BID@0700,2200 SC 02/23/25 22:00 03/07/25 06:30 10 UNITS Lorazepam 1 mg Q8HPRN PRN PO 02/23/25 14:15 02/28/25 21:38 1 MG Nicotine 1 patch DAILY TD 02/23/25 14:48 03/07/25 10:17 1 PATCH Hydralazine HCl 10 mg Q6HPRN IV 02/24/25 12:00 03/05/25 12:45 10 MG Acetaminophen/ Hydrocodone Bitart 1 tab Q4HPRN PRN PO 02/26/25 10:30 03/06/25 17:46 1 TAB Enoxaparin Sodium 40 mg DAILY SC 02/27/25 10:00 03/07/25 10:09 40 MG Insulin Human Regular ACHS SC 02/28/25 17:00 03/07/25 12:55 6 UNITS Gabapentin 100 mg TID PO 03/02/25 14:00 03/07/25 12:52 100 MG Calcium Acetate 1,334 mg TIDWMEALS PO 03/04/25 12:00 03/07/25 12:40 1,334 MG Ergocalciferol 50,000 unit Q7D PO 03/04/25 11:45 03/04/25 17:41 50,000 UNIT Ampicillin Sodium/ Sulbactam Sodium 3 gm/Sodium Chloride 100 ml @ 100 mls/hr Q6HR IV 03/05/25 17:00 03/07/25 06:20 100 MLS/HR Dextrose/Sodium Chloride 1,000 ml @ 75 mls/hr [id number] IV 03/06/25 13:00 03/06/25 15:49 75 MLS/HR Oxycodone HCl 10 mg ONCE PRN PO 03/06/25 14:15 Zirconium Oxide 10 gm TID PO 03/07/25 14:00 Cancel Sodium Bicarbonate 50 ml/ Sodium Chloride 1,050 ml @ 100 mls/hr [id number] IV 03/07/25 11:45 Cancel Laboratory Results Laboratory Tests 03/07/25 05:23 03/07/25 11:18 Chemistry Test 03/07/25 05:23 Calcium Level 8.7 mg/dL (8.7-10.4) Urinalysis Test 02/19/25 17:27 03/04/25 05:00 Urine Color Colorless (Yellow) Urine Clarity Clear (Clear) Urine pH 6.5 (5.0-9.0) Urine Specific [place] 1.008 (1.001-1.035) Urine Protein 2+ (Negative) H Urine Ketones 1+ (Negative) H Urine Blood 1+ /uL (Negative) H Urine Nitrite Negative (Negative) Urine Bilirubin Negative (Negative) Urine Urobilinogen Normal mg/dL (Negative) Urine Leukocyte Esterase Negative /uL (Negative) Urine RBC 6 /hpf (0 - 4) Urine Microscopic WBC 2 /HPF (0-5) Urine Squamous Epithelial Cells Few /hpf (<5) Urine Bacteria None seen /hpf (None Seen) Urine Glucose 2+ mg/dL (Normal) H Urine Creatinine 25.51 mg/dL (30.0-125.0) L Urine Protein/Creatinine Ratio 14.00 Urine Sodium 80 mmol/L (40-220) Urine Total Protein 357.1 mg/dL (1-14) H Microbiology Microbiology Date/Time Source Procedure Growth Status 03/06/25 14:37 Knee Left Gram Stain - Final Resulted 03/06/25 14:37 Knee Left Anaerobic Culture - Preliminary Resulted 03/06/25 14:37 Knee Left Aerobic Culture - Preliminary Resulted 03/04/25 13:29 Aspirate Gram Stain - Final Complete 03/04/25 13:29 Body Fluid Culture - Final Staphylococcus aureus Complete 02/19/25 17:27 Urine - [place] Urine Culture - Final Complete 02/19/25 13:14 Blood Blood Culture - Final NO GROWTH AFTER 5 DAYS OF INCUBATION. Complete Labs and/or images reviewed: Labs reviewed by me, Image(s) reviewed by me Assessment/Plan Assessment/Plan Impression: Multiple acute/subacute strokes Left lower extremity cellulitis Rule out left septic knee Hypokalemia Acute kidney injury likely hemodynamically mediated due to vasomotor nephropathy Chronic kidney disease Peripheral vascular disease status post right tjxyn-[id number] amputation 6 months ago Poorly controlled type 2 diabetes Sepsis Hypertension Mixed hyperlipidemia Polysubstance use disorder Diabetic neuropathy -? Suicidal ideation -septic bursitis with Staphylococcus aureus Plan: -events: Patient was taken to OR yesterday for I and D of septic bursitis. Patient now with worsening anemia and hyperkalemia. Potassium lowering agents were provided with the patient's potassium is now normalized. Long discussion made with the patient regarding the need for PRBC transfusion, for which she was now agreeable to. -antibiotics: Unasyn. -repeat psychiatry consultation given patient states she was no longer with suicidal ideation only really depressed -continue antidepressants -continue anticoagulation -repeat labs in a.m. Total time spent with patient discussing and formulating plan of care: 35 minutes. This medical document was created using an electronic medical record system with Aibo dictation system. Although this document has been carefully reviewed, there may still be some phonetic and typographical errors. These areas are purely typographical due to imperfections of the software programs, and do not reflect any compromise in the patient's medical care. Plan discussed with: Patient, Other (RN) My Orders Orders - JUSTIN BONILLA NP Procedure Category Date Status Time Cardiac DIET 03/07/25 Transmitted Diet-2gna,Lofat,Lochol Dinner Basic Metabolic Panel LAB 03/08/25 Verified 04:00 Complete Blood Count LAB 03/08/25 Verified 04:00 Date of Service: Mar 07, 2025 Billing Provider: JUSTIN BONILLA NP Common Visit Codes: [id number] INP/OBS CARE(HIGH) JUSTIN BONILLA NP Mar 07, 2025 15:42
[2025-03-08] VITALS (9 sets, daily range): BP systolic 104–147; BP diastolic 65–85; PULSE 55–100; RESP 16–19; TEMP 97.5–98.5; O2SAT 94–100
[2025-03-08 07:30] LABS: Sodium 136 mmol/L (136-145)
[2025-03-08 07:31] LABS: Anion Gap 7 (5-15); Calcium 8.8 mg/dL (8.7-10.4)
[2025-03-08 07:37] LABS: Basophils # (auto) 0.1 10 ^3/uL (0-0.2); Basophils % (auto) 1.3 % (0.0-2.0); Eosinophils # (auto) 0.3 10 ^3/uL (0-0.8); Eosinophils % (auto) 3.5 % (0.0-7.0); Hematocrit 23.4 % (36.0-46.0); Hemoglobin 7.7 g/dL (12.2-16.2); Lymphocytes # (auto) 1.2 10 ^3/uL (0.4-5.4); Lymphocytes % (auto) 13.6 % (10.0-50.0); Mean Corpuscular Hemoglobin 27.9 pg (28.0-32.0); Mean Corpuscular Hgb Conc. 32.8 g/dL (32.0-36.0); Mean Corpuscular Volume 84.9 fL (80.0-100.0); Monocytes # (auto) 0.7 10 ^3/uL (0-1.3); Monocytes % (auto) 7.4 % (0.0-12.0); Neutrophils # (auto) 6.7 10 ^3/uL (1.6-8.6); Neutrophils % (auto) 74.2 % (37.0-80.0); Nucleated Red Blood Cells % 0.1 %; Platelet Count (auto) 525 10^3/uL (140-450); Red Blood Cells 2.76 10^6/uL (4.0-5.20); Red Cell Distribution Width 15.8 % (11.8-14.3)
[2025-03-08 07:47] LABS: Blood Urea Nitrogen 65 mg/dL (9-23); Carbon Dioxide 19 mmol/L (20-31); Chloride 110 mmol/L (98-107); Glucose 187 mg/dL (74-106); Potassium 5.2 mmol/L (3.5-5.1)
--- NOTE | 2025-03-08 11:43 | DVHPN2 ---
Progress Note Date Seen: Mar 08, 2025 Medical Necessity Reason Pt with a Central, PICC or Fol: Yes The following are medically ne: Almaraz Catheter Subjective Patient reports: No new complaints Other Systems: Patient seen and examined by myself today in follow-up Objective vital signs Vital Sign Date Time Temp Pulse Resp B/P (MAP) Pulse Ox O2 Delivery O2 Flow Rate FiO2 03/08/25 10:00 95 Room Air 0.0 03/08/25 08:56 136/80 03/08/25 08:00 21 03/08/25 05:00 98.1 100 18 98.1 Total Intake and Output 03/07/25 03/07/25 03/08/25 15:00 23:00 07:00 Intake Total 1440 ml 1640 ml Output Total 900 ml 800 ml Balance 540 ml 840 ml medications Current Medications Medications Dose Ordered Sig/John Route Start Time Stop Time Status Last Admin Dose Admin Ondansetron HCl 4 mg Q4HP PRN IV 02/19/25 13:45 03/06/25 02:55 4 MG Docusate Sodium 100 mg BIDPRN PRN PO 02/19/25 13:45 03/04/25 17:41 100 MG Acetaminophen 650 mg Q6HP PRN PO 02/19/25 13:45 02/19/25 21:37 650 MG Nitroglycerin 0.4 mg Q5MINP PRN SL 02/19/25 13:45 Diagnostic Test (Pha) 1 strip ACHS 02/19/25 17:00 03/08/25 05:49 1 STRIP Dextrose 50 ml UD PRN IV 02/19/25 15:45 03/06/25 11:34 50 ML Duloxetine HCl 30 mg DAILY PO 02/20/25 10:00 03/08/25 08:56 30 MG Gemfibrozil 600 mg BIDAC PO 02/19/25 17:00 03/08/25 05:20 600 MG Lamotrigine 25 mg DAILY PO 02/20/25 10:00 03/08/25 08:55 25 MG Potassium Chloride 100 ml @ 50 mls/hr Q2H IV 02/19/25 23:15 02/20/25 05:14 Cancel Melatonin 10 mg HS PO 02/20/25 22:00 03/07/25 22:18 10 MG Potassium Chloride 100 ml @ 50 mls/hr Q2H IV 02/20/25 07:15 02/20/25 11:14 UNV Atorvastatin Calcium 40 mg HS PO 02/20/25 22:00 03/07/25 22:19 40 MG Aspirin 81 mg DAILY PO 02/21/25 10:00 03/08/25 08:55 81 MG Nifedipine 30 mg DAILY PO 02/21/25 10:00 03/08/25 08:56 30 MG Insulin Glargine 10 units BID@0700,2200 SC 02/23/25 22:00 03/08/25 06:04 10 UNITS Lorazepam 1 mg Q8HPRN PRN PO 02/23/25 14:15 02/28/25 21:38 1 MG Nicotine 1 patch DAILY TD 02/23/25 14:48 03/08/25 08:58 1 PATCH Hydralazine HCl 10 mg Q6HPRN IV 02/24/25 12:00 03/05/25 12:45 10 MG Acetaminophen/ Hydrocodone Bitart 1 tab Q4HPRN PRN PO 02/26/25 10:30 03/08/25 10:41 1 TAB Enoxaparin Sodium 40 mg DAILY SC 02/27/25 10:00 03/07/25 10:09 40 MG Insulin Human Regular ACHS SC 02/28/25 17:00 03/08/25 06:03 3 UNITS Gabapentin 100 mg TID PO 03/02/25 14:00 03/08/25 05:21 100 MG Calcium Acetate 1,334 mg TIDWMEALS PO 03/04/25 12:00 03/08/25 08:55 1,334 MG Ergocalciferol 50,000 unit Q7D PO 03/04/25 11:45 03/04/25 17:41 50,000 UNIT Ampicillin Sodium/ Sulbactam Sodium 3 gm/Sodium Chloride 100 ml @ 100 mls/hr Q6HR IV 03/05/25 17:00 03/08/25 05:56 100 MLS/HR Dextrose/Sodium Chloride 1,000 ml @ 75 mls/hr [id number] IV 03/06/25 13:00 03/08/25 02:42 75 MLS/HR Oxycodone HCl 10 mg ONCE PRN PO 03/06/25 14:15 Zirconium Oxide 10 gm TID PO 03/07/25 14:00 Cancel Sodium Bicarbonate 50 ml/ Sodium Chloride 1,050 ml @ 100 mls/hr [id number] IV 03/07/25 11:45 Cancel Examination: LUNGS:Normal, CVS:Normal, MSK:Normal laboratory and microbiology Laboratory Tests 03/08/25 06:17 Test 03/08/25 06:17 Range/Units Serum Glucose 187 H 74-106 mg/dL Microbiology Date/Time Source Procedure Growth Status 03/06/25 14:37 Knee Left Gram Stain - Final Resulted 03/06/25 14:37 Knee Left Anaerobic Culture - Preliminary Resulted 03/06/25 14:37 Knee Left Aerobic Culture - Preliminary Resulted 03/04/25 13:29 Aspirate Gram Stain - Final Complete 03/04/25 13:29 Body Fluid Culture - Final Staphylococcus aureus Complete 02/19/25 17:27 Urine - [place] Urine Culture - Final Complete 02/19/25 13:14 Blood Blood Culture - Final NO GROWTH AFTER 5 DAYS OF INCUBATION. Complete Problem List/Assessment/Plan Problem List/Assessment/Plan Acute kidney injury superimposed Chronic Kidney Disease secondary hemodynamic mediated Left leg cellulitis Left knee effusion Peripheral vascular disease , hx BKA Diabetes poorly controlled CVA Hyperkalemia Hyperphosphatemia Vitamin-D deficiency Dropping hemoglobin status post packed red blood cell transfusion Recommendations Kidney function worsened today due to vancomycin toxicity and NSAIDs use DC Celebrex Increased urine output Strict I&Os Renal diet IV Abx Medical treatment for hyperkalemia Calcium acetate t.i.d. with meals Ergocalciferol 74693 units p.o. q.week Insulin sliding scale Kidney ultrasound reported bilateral echogenic kidney Orthopedic consult We will continue to follow up Plan discussed with: Patient Dietary Evaluation Review Comments: 1) Esau 1 pk BID 2) Refer Senior Interaction Designer on DC 3) Continue current plan of care Expected Outcomes/Goals: Pt will meet >75% estimated needs Fu 3-5 days SHAINA VARGAS MD Mar 08, 2025 11:43
--- NOTE | 2025-03-08 14:55 | DVHPN2 ---
Subjective Denies any symptoms Reviewed: Care Plan, H&P, Labs, Medications, Previous Orders, Radiology, Other (Consultations) Changes from previous H/P or p: No Changes General: Per HPI Objective Vitals Vital Signs Date Time Temp Pulse Resp B/P (MAP) Pulse Ox O2 Delivery O2 Flow Rate FiO2 03/08/25 12:00 147/85 03/08/25 10:00 95 Room Air 0.0 03/08/25 08:00 86 03/08/25 08:00 21 03/08/25 05:00 98.1 18 98.1 Intake/Output Intake and Output 03/08/25 07:00 Intake Total 3080 ml Output Total 1700 ml Balance 1380 ml Intake Oral 1180 ml IV Total 1300 ml Blood Product 300 ml Other 300 ml Output Urine Total 1700 ml General Appearance: Alert, Oriented X3, Cooperative, No acute distress HEENT: Atraumatic, PERRLA Lungs: Clear to auscultation, Normal air movement Cardiovascular: Regular rate, Normal S1, Normal S2 Abdomen: Normal bowel sounds, Soft, No tenderness Extremities: Other Neuro: Normal speech, Other Skin: Dry, Intact, Wounds Psych/Mental Status: Mental status NL, Mood NL Medications Current Medications Medications Dose Ordered Sig/John Route Start Time Stop Time Status Last Admin Dose Admin Ondansetron HCl 4 mg Q4HP PRN IV 02/19/25 13:45 03/06/25 02:55 4 MG Docusate Sodium 100 mg BIDPRN PRN PO 02/19/25 13:45 03/04/25 17:41 100 MG Acetaminophen 650 mg Q6HP PRN PO 02/19/25 13:45 02/19/25 21:37 650 MG Nitroglycerin 0.4 mg Q5MINP PRN SL 02/19/25 13:45 Diagnostic Test (Pha) 1 strip ACHS 02/19/25 17:00 03/08/25 11:30 1 STRIP Dextrose 50 ml UD PRN IV 02/19/25 15:45 03/06/25 11:34 50 ML Duloxetine HCl 30 mg DAILY PO 02/20/25 10:00 03/08/25 08:56 30 MG Gemfibrozil 600 mg BIDAC PO 02/19/25 17:00 03/08/25 05:20 600 MG Lamotrigine 25 mg DAILY PO 02/20/25 10:00 03/08/25 08:55 25 MG Potassium Chloride 100 ml @ 50 mls/hr Q2H IV 02/19/25 23:15 02/20/25 05:14 Cancel Melatonin 10 mg HS PO 02/20/25 22:00 03/07/25 22:18 10 MG Potassium Chloride 100 ml @ 50 mls/hr Q2H IV 02/20/25 07:15 02/20/25 11:14 UNV Atorvastatin Calcium 40 mg HS PO 02/20/25 22:00 03/07/25 22:19 40 MG Aspirin 81 mg DAILY PO 02/21/25 10:00 03/08/25 08:55 81 MG Nifedipine 30 mg DAILY PO 02/21/25 10:00 03/08/25 08:56 30 MG Insulin Glargine 10 units BID@0700,2200 SC 02/23/25 22:00 03/08/25 06:04 10 UNITS Lorazepam 1 mg Q8HPRN PRN PO 02/23/25 14:15 02/28/25 21:38 1 MG Nicotine 1 patch DAILY TD 02/23/25 14:48 03/08/25 08:58 1 PATCH Hydralazine HCl 10 mg Q6HPRN IV 02/24/25 12:00 03/05/25 12:45 10 MG Acetaminophen/ Hydrocodone Bitart 1 tab Q4HPRN PRN PO 02/26/25 10:30 03/08/25 10:41 1 TAB Enoxaparin Sodium 40 mg DAILY SC 02/27/25 10:00 03/07/25 10:09 40 MG Insulin Human Regular ACHS SC 02/28/25 17:00 03/08/25 06:03 3 UNITS Gabapentin 100 mg TID PO 03/02/25 14:00 03/08/25 14:14 100 MG Calcium Acetate 1,334 mg TIDWMEALS PO 03/04/25 12:00 03/08/25 14:14 1,334 MG Ergocalciferol 50,000 unit Q7D PO 03/04/25 11:45 03/04/25 17:41 50,000 UNIT Ampicillin Sodium/ Sulbactam Sodium 3 gm/Sodium Chloride 100 ml @ 100 mls/hr Q6HR IV 03/05/25 17:00 03/08/25 14:14 100 MLS/HR Dextrose/Sodium Chloride 1,000 ml @ 75 mls/hr [id number] IV 03/06/25 13:00 03/08/25 02:42 75 MLS/HR Oxycodone HCl 10 mg ONCE PRN PO 03/06/25 14:15 Zirconium Oxide 10 gm TID PO 03/07/25 14:00 Cancel Sodium Bicarbonate 50 ml/ Sodium Chloride 1,050 ml @ 100 mls/hr [id number] IV 03/07/25 11:45 Cancel Laboratory Results Laboratory Tests 03/08/25 06:17 Chemistry Test 03/08/25 06:17 Calcium Level 8.8 mg/dL (8.7-10.4) Urinalysis Test 02/19/25 17:27 03/04/25 05:00 Urine Color Colorless (Yellow) Urine Clarity Clear (Clear) Urine pH 6.5 (5.0-9.0) Urine Specific [place] 1.008 (1.001-1.035) Urine Protein 2+ (Negative) H Urine Ketones 1+ (Negative) H Urine Blood 1+ /uL (Negative) H Urine Nitrite Negative (Negative) Urine Bilirubin Negative (Negative) Urine Urobilinogen Normal mg/dL (Negative) Urine Leukocyte Esterase Negative /uL (Negative) Urine RBC 6 /hpf (0 - 4) Urine Microscopic WBC 2 /HPF (0-5) Urine Squamous Epithelial Cells Few /hpf (<5) Urine Bacteria None seen /hpf (None Seen) Urine Glucose 2+ mg/dL (Normal) H Urine Creatinine 25.51 mg/dL (30.0-125.0) L Urine Protein/Creatinine Ratio 14.00 Urine Sodium 80 mmol/L (40-220) Urine Total Protein 357.1 mg/dL (1-14) H Microbiology Microbiology Date/Time Source Procedure Growth Status 03/06/25 14:37 Knee Left Gram Stain - Final Resulted 03/06/25 14:37 Knee Left Anaerobic Culture - Preliminary Resulted 03/06/25 14:37 Aerobic Culture - Final Staphylococcus aureus Resulted 03/04/25 13:29 Aspirate Gram Stain - Final Complete 03/04/25 13:29 Body Fluid Culture - Final Staphylococcus aureus Complete 02/19/25 17:27 Urine - [place] Urine Culture - Final Complete 02/19/25 13:14 Blood Blood Culture - Final NO GROWTH AFTER 5 DAYS OF INCUBATION. Complete Labs and/or images reviewed: Labs reviewed by me, Image(s) reviewed by me Assessment/Plan Assessment/Plan Impression: Multiple acute/subacute strokes Left lower extremity cellulitis Rule out left septic knee Hypokalemia Acute kidney injury likely hemodynamically mediated due to vasomotor nephropathy Chronic kidney disease Peripheral vascular disease status post right [id number] amputation 6 months ago Poorly controlled type 2 diabetes Sepsis Hypertension Mixed hyperlipidemia Polysubstance use disorder Diabetic neuropathy -? Suicidal ideation -septic bursitis with Staphylococcus aureus Plan: -events: Patient with bleeding noted to her left a strep. H&H improved from yesterday after PRBC transfusion. Mild hyperkalemia with potassium 5.2. WBC count now within normal limits. We will plan to readdress left knee. -sodium bicarbonate infusion x1 bag -antibiotics: Unasyn. -continue antidepressants -continue anticoagulation -repeat labs in a.m. Total time spent with patient discussing and formulating plan of care: 35 minutes. This medical document was created using an electronic medical record system with [employer] dictation system. Although this document has been carefully reviewed, there may still be some phonetic and typographical errors. These areas are purely typographical due to imperfections of the software programs, and do not reflect any compromise in the patient's medical care. Plan discussed with: Patient, Other (RN) My Orders Orders - JUSTIN BONILLA NP Procedure Category Date Status Time Cardiac DIET 03/07/25 Transmitted Diet-2gna,Lofat,Lochol Dinner 1/2nsw Sodium PHA 03/08/25 Transmitted Bicarbonate Drip 15:00 Basic Metabolic Panel LAB 03/09/25 Verified 04:00 Complete Blood Count LAB 03/09/25 Verified 04:00 Date of Service: Mar 08, 2025 Billing Provider: JUSTIN BONILLA NP Common Visit Codes: [id number] INP/OBS CARE(HIGH) JUSTIN BONILLA NP Mar 08, 2025 14:55
[2025-03-08] MEDS: SODIUM BICARB 50mEq/50ml Vial 50 ML in SOD CHL 0.45% 1,000 ML IV ONE (18:21)
--- NOTE | 2025-03-08 19:21 | DVHPN2 ---
Progress Note - Dictate Date Seen: Mar 08, 2025 Medical Necessity Reason Pt with a Central, PICC or Fol: Yes The following are medically ne: [place] Catheter Subjective Patient was seen and evaluated in follow up. Patient is complaining of left knee pain. Patient's mother at bedside. HGB 7.7, HCT 23.4, K 5.2, CL 110, CO2 19, BUN 65, MAP PLOTTER 2.10. Telemetry reviewed. vital signs Vital Sign Date Time Temp Pulse Resp B/P (MAP) Pulse Ox O2 Delivery O2 Flow Rate FiO2 03/08/25 17:31 98.4 79 16 146/71 (96) 100 98.4 03/08/25 10:00 Room Air 0.0 03/08/25 08:00 21 Total Intake and Output 03/07/25 03/07/25 03/08/25 15:00 23:00 07:00 Intake Total 1440 ml 1640 ml Output Total 900 ml 800 ml Balance 540 ml 840 ml medications Current Medications Medications Dose Ordered Sig/John Route Start Time Stop Time Status Last Admin Dose Admin Ondansetron HCl 4 mg Q4HP PRN IV 02/19/25 13:45 03/06/25 02:55 4 MG Docusate Sodium 100 mg BIDPRN PRN PO 02/19/25 13:45 03/04/25 17:41 100 MG Acetaminophen 650 mg Q6HP PRN PO 02/19/25 13:45 02/19/25 21:37 650 MG Nitroglycerin 0.4 mg Q5MINP PRN SL 02/19/25 13:45 Diagnostic Test (Pha) 1 strip ACHS 02/19/25 17:00 03/08/25 17:21 1 STRIP Dextrose 50 ml UD PRN IV 02/19/25 15:45 03/06/25 11:34 50 ML Duloxetine HCl 30 mg DAILY PO 02/20/25 10:00 03/08/25 08:56 30 MG Gemfibrozil 600 mg BIDAC PO 02/19/25 17:00 03/08/25 17:24 600 MG Lamotrigine 25 mg DAILY PO 02/20/25 10:00 03/08/25 08:55 25 MG Potassium Chloride 100 ml @ 50 mls/hr Q2H IV 02/19/25 23:15 02/20/25 05:14 Cancel Melatonin 10 mg HS PO 02/20/25 22:00 03/07/25 22:18 10 MG Potassium Chloride 100 ml @ 50 mls/hr Q2H IV 02/20/25 07:15 02/20/25 11:14 UNV Atorvastatin Calcium 40 mg HS PO 02/20/25 22:00 03/07/25 22:19 40 MG Aspirin 81 mg DAILY PO 02/21/25 10:00 03/08/25 08:55 81 MG Nifedipine 30 mg DAILY PO 02/21/25 10:00 03/08/25 08:56 30 MG Insulin Glargine 10 units BID@0700,2200 SC 02/23/25 22:00 03/08/25 06:04 10 UNITS Lorazepam 1 mg Q8HPRN PRN PO 02/23/25 14:15 02/28/25 21:38 1 MG Nicotine 1 patch DAILY TD 02/23/25 14:48 03/08/25 08:58 1 PATCH Hydralazine HCl 10 mg Q6HPRN IV 02/24/25 12:00 03/05/25 12:45 10 MG Acetaminophen/ Hydrocodone Bitart 1 tab Q4HPRN PRN PO 02/26/25 10:30 03/08/25 15:47 1 TAB Enoxaparin Sodium 40 mg DAILY SC 02/27/25 10:00 03/07/25 10:09 40 MG Insulin Human Regular ACHS SC 02/28/25 17:00 03/08/25 06:03 3 UNITS Gabapentin 100 mg TID PO 03/02/25 14:00 03/08/25 14:14 100 MG Calcium Acetate 1,334 mg TIDWMEALS PO 03/04/25 12:00 03/08/25 17:24 1,334 MG Ergocalciferol 50,000 unit Q7D PO 03/04/25 11:45 03/04/25 17:41 50,000 UNIT Ampicillin Sodium/ Sulbactam Sodium 3 gm/Sodium Chloride 100 ml @ 100 mls/hr Q6HR IV 03/05/25 17:00 03/08/25 14:14 100 MLS/HR Oxycodone HCl 10 mg ONCE PRN PO 03/06/25 14:15 Zirconium Oxide 10 gm TID PO 03/07/25 14:00 Cancel Sodium Bicarbonate 50 ml/ Sodium Chloride 1,050 ml @ 100 mls/hr [id number] IV 03/07/25 11:45 Cancel objective GENERAL: Awake, alert, oriented. LUNGS: Clear. CARDIOVASCULAR: Heart sounds are good. ABDOMEN: Soft. laboratory and microbiology Laboratory Tests 03/08/25 06:17 Test 03/08/25 06:17 Range/Units Serum Glucose 187 H 74-106 mg/dL Problem List Multiple acute/subacute strokes. Hypokalemia. Acute kidney injury. Hypertension, newly diagnosed. Insulin-dependent diabetes mellitus. Status post right BKA. Dyslipidemia. Polysubstance use disorder. Left lower extremity cellulitis. Peripheral vascular disease status post right [id number] amputation 6 months ago. Sepsis. Diabetic neuropathy. Assessment/Plan Continued all current supportive medical care. [place] for pain management. Aspirin, Lipitor. DVT prophylactics. IV Hydralazine for SBP >16. IV antibiotics as ordered. Nifedipine. Additional plan as per the hospital course. Dietary Evaluation Review Comments: 1) [place]au 1 pk BID 2) Refer [employer] on DC 3) Continue current plan of care Expected Outcomes/Goals: Pt will meet >75% estimated needs Fu 3-5 days Plan discussed with: Patient YANIRA WINN MD Mar 08, 2025 18:16
[2025-03-09] VITALS (8 sets, daily range): BP systolic 126–153; BP diastolic 70–79; PULSE 81–94; RESP 17–18; TEMP 97.4–98.3; O2SAT 95–98
[2025-03-09 05:12] LABS: Basophils # (auto) 0.1 10 ^3/uL (0-0.2); Eosinophils # (auto) 0.4 10 ^3/uL (0-0.8); Lymphocytes # (auto) 0.9 10 ^3/uL (0.4-5.4); Monocytes # (auto) 0.8 10 ^3/uL (0-1.3); Neutrophils # (auto) 4.3 10 ^3/uL (1.6-8.6)
[2025-03-09 05:15] LABS: Basophils % (auto) 1.9 % (0.0-2.0); Eosinophils % (auto) 6.6 % (0.0-7.0); Hematocrit 23.7 % (36.0-46.0); Hemoglobin 7.8 g/dL (12.2-16.2); Lymphocytes % (auto) 13.8 % (10.0-50.0); Mean Corpuscular Hgb Conc. 32.9 g/dL (32.0-36.0); Mean Corpuscular Volume 85.1 fL (80.0-100.0); Monocytes % (auto) 12.9 % (0.0-12.0); Neutrophils % (auto) 64.8 % (37.0-80.0); Nucleated Red Blood Cells % 0.2 %; Platelet Count (auto) 519 10^3/uL (140-450); Red Blood Cells 2.79 10^6/uL (4.0-5.20); Red Cell Distribution Width 16.5 % (11.8-14.3); White Blood Cell 6.6 10^3/uL (4.4-10.8)
[2025-03-09 05:19] LABS: Sodium 138 mmol/L (136-145)
[2025-03-09 05:20] LABS: Anion Gap 7 (5-15)
[2025-03-09 05:21] LABS: Calcium 8.8 mg/dL (8.7-10.4)
[2025-03-09 05:25] LABS: Carbon Dioxide 20 mmol/L (20-31); Chloride 111 mmol/L (98-107); Potassium 5.5 mmol/L (3.5-5.1)
[2025-03-09 05:26] LABS: BUN/Creatinine Ratio 31.7 (10.0-20.0); Blood Urea Nitrogen 64 mg/dL (9-23); Glucose 59 mg/dL (74-106)
[2025-03-09] MEDS: SODIUM ZIRCONIUM CYCL 10 GM PAK PO ONE (12:58)
--- NOTE | 2025-03-09 13:11 | DVHPN2 ---
Progress Note Date Seen: Mar 09, 2025 Medical Necessity Reason Pt with a Central, PICC or Fol: Yes The following are medically ne: [place]mar[place] Catheter Subjective Patient reports: No new complaints Other Systems: Patient seen and examined by myself today in follow-up Objective vital signs Vital Sign Date Time Temp Pulse Resp B/P (MAP) Pulse Ox O2 Delivery O2 Flow Rate FiO2 03/09/25 10:00 97 Room Air 0.0 03/09/25 09:23 141/76 03/09/25 09:00 97.9 86 17 97.9 03/09/25 08:00 21 Total Intake and Output 03/08/25 03/08/25 03/09/25 15:00 23:00 07:00 Intake Total 920 ml 936.2 ml Output Total 375 ml Balance 545 ml 936.2 ml medications Current Medications Medications Dose Ordered Sig/John Route Start Time Stop Time Status Last Admin Dose Admin Ondansetron HCl 4 mg Q4HP PRN IV 02/19/25 13:45 03/06/25 02:55 4 MG Docusate Sodium 100 mg BIDPRN PRN PO 02/19/25 13:45 03/04/25 17:41 100 MG Acetaminophen 650 mg Q6HP PRN PO 02/19/25 13:45 02/19/25 21:37 650 MG Nitroglycerin 0.4 mg Q5MINP PRN SL 02/19/25 13:45 Diagnostic Test (Pha) 1 strip ACHS 02/19/25 17:00 03/09/25 11:51 1 STRIP Dextrose 50 ml UD PRN IV 02/19/25 15:45 03/06/25 11:34 50 ML Duloxetine HCl 30 mg DAILY PO 02/20/25 10:00 03/09/25 09:23 30 MG Gemfibrozil 600 mg BIDAC PO 02/19/25 17:00 03/09/25 05:55 600 MG Lamotrigine 25 mg DAILY PO 02/20/25 10:00 03/09/25 09:23 25 MG Potassium Chloride 100 ml @ 50 mls/hr Q2H IV 02/19/25 23:15 02/20/25 05:14 Cancel Melatonin 10 mg HS PO 02/20/25 22:00 03/08/25 22:08 10 MG Potassium Chloride 100 ml @ 50 mls/hr Q2H IV 02/20/25 07:15 02/20/25 11:14 UNV Atorvastatin Calcium 40 mg HS PO 02/20/25 22:00 03/08/25 22:47 40 MG Aspirin 81 mg DAILY PO 02/21/25 10:00 03/09/25 09:23 81 MG Nifedipine 30 mg DAILY PO 02/21/25 10:00 03/09/25 09:23 30 MG Insulin Glargine 10 units BID@0700,2200 SC 02/23/25 22:00 03/08/25 22:28 10 UNITS Lorazepam 1 mg Q8HPRN PRN PO 02/23/25 14:15 02/28/25 21:38 1 MG Nicotine 1 patch DAILY TD 02/23/25 14:48 03/09/25 09:24 1 PATCH Hydralazine HCl 10 mg Q6HPRN IV 02/24/25 12:00 03/05/25 12:45 10 MG Acetaminophen/ Hydrocodone Bitart 1 tab Q4HPRN PRN PO 02/26/25 10:30 03/09/25 11:43 1 TAB Enoxaparin Sodium 40 mg DAILY SC 02/27/25 10:00 03/09/25 09:24 40 MG Insulin Human Regular ACHS SC 02/28/25 17:00 03/08/25 22:29 3 UNITS Gabapentin 100 mg TID PO 03/02/25 14:00 03/09/25 05:55 100 MG Calcium Acetate 1,334 mg TIDWMEALS PO 03/04/25 12:00 03/09/25 11:43 1,334 MG Ergocalciferol 50,000 unit Q7D PO 03/04/25 11:45 03/04/25 17:41 50,000 UNIT Ampicillin Sodium/ Sulbactam Sodium 3 gm/Sodium Chloride 100 ml @ 100 mls/hr Q6HR IV 03/05/25 17:00 03/09/25 11:44 100 MLS/HR Oxycodone HCl 10 mg ONCE PRN PO 03/06/25 14:15 Zirconium Oxide 10 gm TID PO 03/07/25 14:00 Cancel Sodium Bicarbonate 50 ml/ Sodium Chloride 1,050 ml @ 100 mls/hr [id number] IV 03/07/25 11:45 Cancel Zirconium Oxide 10 gm DAILY PO 03/10/25 10:00 03/13/25 09:59 Examination: LUNGS:Normal, CVS:Normal, MSK:Normal laboratory and microbiology Laboratory Tests 03/09/25 04:34 Test 03/09/25 04:34 Range/Units Serum Glucose 59 L 74-106 mg/dL Microbiology Date/Time Source Procedure Growth Status 03/06/25 14:37 Knee Left Gram Stain - Final Resulted 03/06/25 14:37 Knee Left Anaerobic Culture - Preliminary Resulted 03/06/25 14:37 Aerobic Culture - Final Staphylococcus aureus Resulted 03/04/25 13:29 Aspirate Gram Stain - Final Complete 03/04/25 13:29 Body Fluid Culture - Final Staphylococcus aureus Complete 02/19/25 17:27 Urine - [place] Urine Culture - Final Complete 02/19/25 13:14 Blood Blood Culture - Final NO GROWTH AFTER 5 DAYS OF INCUBATION. Complete Problem List/Assessment/Plan Problem List/Assessment/Plan Acute kidney injury superimposed Chronic Kidney Disease secondary hemodynamic mediated Left leg cellulitis Left knee effusion Peripheral vascular disease , hx BKA Diabetes poorly controlled CVA Hyperkalemia Hyperphosphatemia Vitamin-D deficiency Dropping hemoglobin status post packed red blood cell transfusion Recommendations Kidney function stabilize Chronic Kidney Disease stage 4 Increased urine output No indication for acute hemodialysis Strict I&Os Renal diet IV Abx Hyperkalemia resolved Calcium acetate t.i.d. with meals Ergocalciferol 39554 units p.o. q.week Insulin sliding scale Kidney ultrasound reported bilateral echogenic kidney I will sign off this case please reconsult as needed Thank you for the consult Plan discussed with: Patient Dietary Evaluation Review Comments: 1) [place] 1 pk BID 2) Refer [employer] on DC 3) Continue current plan of care Expected Outcomes/Goals: Pt will meet >75% estimated needs Fu 3-5 days SHAINA VARGAS MD Mar 09, 2025 13:11
--- NOTE | 2025-03-09 13:32 | DVHPN2 ---
Subjective Denies any symptoms Reviewed: Care Plan, H&P, Labs, Medications, Previous Orders, Radiology, Other (Consultations) Changes from previous H/P or p: No Changes General: Per HPI Objective Vitals Vital Signs Date Time Temp Pulse Resp B/P (MAP) Pulse Ox O2 Delivery O2 Flow Rate FiO2 03/09/25 10:00 97 Room Air 0.0 03/09/25 09:23 141/76 03/09/25 09:00 97.9 86 17 97.9 03/09/25 08:00 21 Intake/Output Intake and Output 03/09/25 07:00 Intake Total 1856.2 ml Output Total 375 ml Balance 1481.2 ml Intake Oral 970 ml IV Total 886.2 ml Output Urine Total 375 ml # Voids 1 # Bowel Movements 1 Exam Assess patient will sitting in her wheelchair. General Appearance: Alert, Oriented X3, Cooperative, No acute distress HEENT: Atraumatic Lungs: Clear to auscultation, Normal air movement Cardiovascular: Regular rate, Normal S1, Normal S2 Abdomen: Normal bowel sounds, Soft, No tenderness Extremities: No edema, Normal pulses, Other (Less redness and swelling to left lower extremity) Neuro: Normal speech, Other Skin: Wounds Psych/Mental Status: Mental status NL, Mood NL Medications Current Medications Medications Dose Ordered Sig/John Route Start Time Stop Time Status Last Admin Dose Admin Ondansetron HCl 4 mg Q4HP PRN IV 02/19/25 13:45 03/06/25 02:55 4 MG Docusate Sodium 100 mg BIDPRN PRN PO 02/19/25 13:45 03/04/25 17:41 100 MG Acetaminophen 650 mg Q6HP PRN PO 02/19/25 13:45 02/19/25 21:37 650 MG Nitroglycerin 0.4 mg Q5MINP PRN SL 02/19/25 13:45 Diagnostic Test (Pha) 1 strip ACHS 02/19/25 17:00 03/09/25 11:51 1 STRIP Dextrose 50 ml UD PRN IV 02/19/25 15:45 03/06/25 11:34 50 ML Duloxetine HCl 30 mg DAILY PO 02/20/25 10:00 03/09/25 09:23 30 MG Gemfibrozil 600 mg BIDAC PO 02/19/25 17:00 03/09/25 05:55 600 MG Lamotrigine 25 mg DAILY PO 02/20/25 10:00 03/09/25 09:23 25 MG Potassium Chloride 100 ml @ 50 mls/hr Q2H IV 02/19/25 23:15 02/20/25 05:14 Cancel Melatonin 10 mg HS PO 02/20/25 22:00 03/08/25 22:08 10 MG Potassium Chloride 100 ml @ 50 mls/hr Q2H IV 02/20/25 07:15 02/20/25 11:14 UNV Atorvastatin Calcium 40 mg HS PO 02/20/25 22:00 03/08/25 22:47 40 MG Aspirin 81 mg DAILY PO 02/21/25 10:00 03/09/25 09:23 81 MG Nifedipine 30 mg DAILY PO 02/21/25 10:00 03/09/25 09:23 30 MG Insulin Glargine 10 units BID@0700,2200 SC 02/23/25 22:00 03/08/25 22:28 10 UNITS Lorazepam 1 mg Q8HPRN PRN PO 02/23/25 14:15 02/28/25 21:38 1 MG Nicotine 1 patch DAILY TD 02/23/25 14:48 03/09/25 09:24 1 PATCH Hydralazine HCl 10 mg Q6HPRN IV 02/24/25 12:00 03/05/25 12:45 10 MG Acetaminophen/ Hydrocodone Bitart 1 tab Q4HPRN PRN PO 02/26/25 10:30 03/09/25 11:43 1 TAB Enoxaparin Sodium 40 mg DAILY SC 02/27/25 10:00 03/09/25 09:24 40 MG Insulin Human Regular ACHS SC 02/28/25 17:00 03/08/25 22:29 3 UNITS Gabapentin 100 mg TID PO 03/02/25 14:00 03/09/25 13:10 100 MG Calcium Acetate 1,334 mg TIDWMEALS PO 03/04/25 12:00 03/09/25 11:43 1,334 MG Ergocalciferol 50,000 unit Q7D PO 03/04/25 11:45 03/04/25 17:41 50,000 UNIT Ampicillin Sodium/ Sulbactam Sodium 3 gm/Sodium Chloride 100 ml @ 100 mls/hr Q6HR IV 03/05/25 17:00 03/09/25 11:44 100 MLS/HR Oxycodone HCl 10 mg ONCE PRN PO 03/06/25 14:15 Zirconium Oxide 10 gm TID PO 03/07/25 14:00 Cancel Sodium Bicarbonate 50 ml/ Sodium Chloride 1,050 ml @ 100 mls/hr [id number] IV 03/07/25 11:45 Cancel Zirconium Oxide 10 gm DAILY PO 03/10/25 10:00 03/13/25 09:59 Laboratory Results Laboratory Tests 03/09/25 04:34 Chemistry Test 03/09/25 04:34 Calcium Level 8.8 mg/dL (8.7-10.4) Urinalysis Test 02/19/25 17:27 03/04/25 05:00 Urine Color Colorless (Yellow) Urine Clarity Clear (Clear) Urine pH 6.5 (5.0-9.0) Urine Specific [place] 1.008 (1.001-1.035) Urine Protein 2+ (Negative) H Urine Ketones 1+ (Negative) H Urine Blood 1+ /uL (Negative) H Urine Nitrite Negative (Negative) Urine Bilirubin Negative (Negative) Urine Urobilinogen Normal mg/dL (Negative) Urine Leukocyte Esterase Negative /uL (Negative) Urine RBC 6 /hpf (0 - 4) Urine Microscopic WBC 2 /HPF (0-5) Urine Squamous Epithelial Cells Few /hpf (<5) Urine Bacteria None seen /hpf (None Seen) Urine Glucose 2+ mg/dL (Normal) H Urine Creatinine 25.51 mg/dL (30.0-125.0) L Urine Protein/Creatinine Ratio 14.00 Urine Sodium 80 mmol/L (40-220) Urine Total Protein 357.1 mg/dL (1-14) H Microbiology Microbiology Date/Time Source Procedure Growth Status 03/06/25 14:37 Knee Left Gram Stain - Final Resulted 03/06/25 14:37 Knee Left Anaerobic Culture - Preliminary Resulted 03/06/25 14:37 Aerobic Culture - Final Staphylococcus aureus Resulted 03/04/25 13:29 Aspirate Gram Stain - Final Complete 03/04/25 13:29 Body Fluid Culture - Final Staphylococcus aureus Complete 02/19/25 17:27 Urine - [place] Urine Culture - Final Complete 02/19/25 13:14 Blood Blood Culture - Final NO GROWTH AFTER 5 DAYS OF INCUBATION. Complete Labs and/or images reviewed: Labs reviewed by me, Image(s) reviewed by me Assessment/Plan Assessment/Plan Impression: Multiple acute/subacute strokes Left lower extremity cellulitis Rule out left septic knee Hypokalemia Acute kidney injury likely hemodynamically mediated due to vasomotor nephropathy Chronic kidney disease Peripheral vascular disease status post right [id number] amputation 6 months ago Poorly controlled type 2 diabetes Sepsis Hypertension Mixed hyperlipidemia Polysubstance use disorder Diabetic neuropathy -? Suicidal ideation -septic bursitis with Staphylococcus aureus Plan: -events: Hyperkalemic. Episode of hypoglycemia. -Lokelma daily Start sodium bicarbonate drip with dextrose -antibiotics: Unasyn. -continue antidepressants -continue anticoagulation -repeat labs in a.m. -social service consultation for discharge planning including penitentiary facility. Total time spent with patient discussing and formulating plan of care: 35 minutes. This medical document was created using an electronic medical record system with [employer] dictation system. Although this document has been carefully reviewed, there may still be some phonetic and typographical errors. These areas are purely typographical due to imperfections of the software programs, and do not reflect any compromise in the patient's medical care. Plan discussed with: Patient, Other (RN) My Orders Orders - JUSTIN BONILLA NP Procedure Category Date Status Time Sodium Zirconium PHA 03/10/25 In Process Cyclosilicate 10:00 Sodium Bicarb PHA 03/09/25 In Process 50meq/50ml Vial 12:00 Renal DIET 03/09/25 Transmitted Standard(2gna,3gk,Lopho) Lunch Hydrocodone-Acet PHA 03/09/25 Verified 7.5/325mg Tab ([place] 13:30 Basic Metabolic Panel LAB 03/10/25 Verified 04:00 Complete Blood Count LAB 03/10/25 Verified 04:00 Date of Service: Mar 09, 2025 Billing Provider: JUSTIN BONILLA NP Common Visit Codes: [id number] INP/OBS CARE(HIGH) JUSTIN BONILLA NP Mar 09, 2025 13:32
[2025-03-09] MEDS: HYDROcodone-ACET 7.5/325MG TAB PO PRN (17:37)
[2025-03-09] MEDS: SODIUM BICARB 50mEq/50ml Vial 150 ML in D5W 5% 1,000 ML IV ONE (17:41)
--- NOTE | 2025-03-09 22:32 | DVHPN2 ---
Progress Note - Dictate Date Seen: Mar 09, 2025 Medical Necessity Reason Pt with a Central, PICC or Fol: Yes The following are medically ne: Almaraz Catheter Subjective Patient was seen and evaluated in follow up. No overnight events. Patients knee pain is slowly improving. 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 Telemetry reviewed. vital signs Vital Sign Date Time Temp Pulse Resp B/P (MAP) Pulse Ox O2 Delivery O2 Flow Rate FiO2 03/09/25 10:00 97 Room Air 0.0 03/09/25 09:23 141/76 03/09/25 09:00 97.9 86 17 97.9 03/09/25 08:00 21 Total Intake and Output 03/08/25 03/08/25 03/09/25 14:59 22:59 06:59 Intake Total 920 ml 936.2 ml Output Total 375 ml Balance 545 ml 936.2 ml medications Current Medications Medications Dose Ordered Sig/John Route Start Time Stop Time Status Last Admin Dose Admin Ondansetron HCl 4 mg Q4HP PRN IV 02/19/25 13:45 03/06/25 02:55 4 MG Docusate Sodium 100 mg BIDPRN PRN PO 02/19/25 13:45 03/04/25 17:41 100 MG Acetaminophen 650 mg Q6HP PRN PO 02/19/25 13:45 02/19/25 21:37 650 MG Nitroglycerin 0.4 mg Q5MINP PRN SL 02/19/25 13:45 Diagnostic Test (Pha) 1 strip ACHS 02/19/25 17:00 03/09/25 11:51 1 STRIP Dextrose 50 ml UD PRN IV 02/19/25 15:45 03/06/25 11:34 50 ML Duloxetine HCl 30 mg DAILY PO 02/20/25 10:00 03/09/25 09:23 30 MG Gemfibrozil 600 mg BIDAC PO 02/19/25 17:00 03/09/25 05:55 600 MG Lamotrigine 25 mg DAILY PO 02/20/25 10:00 03/09/25 09:23 25 MG Potassium Chloride 100 ml @ 50 mls/hr Q2H IV 02/19/25 23:15 02/20/25 05:14 Cancel Melatonin 10 mg HS PO 02/20/25 22:00 03/08/25 22:08 10 MG Potassium Chloride 100 ml @ 50 mls/hr Q2H IV 02/20/25 07:15 02/20/25 11:14 UNV Atorvastatin Calcium 40 mg HS PO 02/20/25 22:00 03/08/25 22:47 40 MG Aspirin 81 mg DAILY PO 02/21/25 10:00 03/09/25 09:23 81 MG Nifedipine 30 mg DAILY PO 02/21/25 10:00 03/09/25 09:23 30 MG Insulin Glargine 10 units BID@0700,2200 SC 02/23/25 22:00 03/08/25 22:28 10 UNITS Lorazepam 1 mg Q8HPRN PRN PO 02/23/25 14:15 02/28/25 21:38 1 MG Nicotine 1 patch DAILY TD 02/23/25 14:48 03/09/25 09:24 1 PATCH Hydralazine HCl 10 mg Q6HPRN IV 02/24/25 12:00 03/05/25 12:45 10 MG Acetaminophen/ Hydrocodone Bitart 1 tab Q4HPRN PRN PO 02/26/25 10:30 03/09/25 11:43 1 TAB Enoxaparin Sodium 40 mg DAILY SC 02/27/25 10:00 03/09/25 09:24 40 MG Insulin Human Regular ACHS SC 02/28/25 17:00 03/08/25 22:29 3 UNITS Gabapentin 100 mg TID PO 03/02/25 14:00 03/09/25 05:55 100 MG Calcium Acetate 1,334 mg TIDWMEALS PO 03/04/25 12:00 03/09/25 11:43 1,334 MG Ergocalciferol 50,000 unit Q7D PO 03/04/25 11:45 03/04/25 17:41 50,000 UNIT Ampicillin Sodium/ Sulbactam Sodium 3 gm/Sodium Chloride 100 ml @ 100 mls/hr Q6HR IV 03/05/25 17:00 03/09/25 11:44 100 MLS/HR Oxycodone HCl 10 mg ONCE PRN PO 03/06/25 14:15 Zirconium Oxide 10 gm TID PO 03/07/25 14:00 Cancel Sodium Bicarbonate 50 ml/ Sodium Chloride 1,050 ml @ 100 mls/hr [id number] IV 03/07/25 11:45 Cancel Zirconium Oxide 10 gm DAILY PO 03/10/25 10:00 03/13/25 09:59 objective GENERAL: Awake, alert, oriented. LUNGS: Clear. CARDIOVASCULAR: Heart sounds are good. ABDOMEN: Soft. laboratory and microbiology Laboratory Tests 03/09/25 04:34 Test 03/09/25 04:34 Range/Units Serum Glucose 59 L 74-106 mg/dL Problem List Multiple acute/subacute strokes. Hypokalemia. Acute kidney injury. Hypertension, newly diagnosed. Insulin-dependent diabetes mellitus. Status post right BKA. Dyslipidemia. Polysubstance use disorder. Left lower extremity cellulitis. Peripheral vascular disease status post right [id number] amputation 6 months ago. Sepsis. Diabetic neuropathy. Assessment/Plan Continued all current supportive medical care. Logan for pain management. Aspirin, Lipitor. DVT prophylactics. IV Hydralazine for SBP >16. IV antibiotics as ordered. Nifedipine. Additional plan as per the hospital course. Dietary Evaluation Review Comments: 1) Esau 1 pk BID 2) Refer Correction [facility] [place] 3) Continue current plan of care Expected Outcomes/Goals: Pt will meet >75% estimated needs Fu 3-5 days Plan discussed with: Patient YANIRA WINN MD Mar 09, 2025 13:12
[2025-03-10] VITALS (11 sets, daily range): BP systolic 119–178; BP diastolic 65–96; PULSE 84–112; RESP 16–19; TEMP 97.3–98.7; O2SAT 95–100
[2025-03-10 05:59] LABS: Platelet Count (auto) 484 10^3/uL (140-450)
[2025-03-10 06:02] LABS: Hematocrit 23.2 % (36.0-46.0); Hemoglobin 7.6 g/dL (12.2-16.2); Mean Corpuscular Hemoglobin 27.8 pg (28.0-32.0); Mean Corpuscular Hgb Conc. 32.6 g/dL (32.0-36.0); Mean Corpuscular Volume 85.3 fL (80.0-100.0); Red Blood Cells 2.72 10^6/uL (4.0-5.20); Red Cell Distribution Width 16.2 % (11.8-14.3); White Blood Cell 6.4 10^3/uL (4.4-10.8)
[2025-03-10 06:10] LABS: Potassium 4.8 mmol/L (3.5-5.1); Sodium 137 mmol/L (136-145)
[2025-03-10 06:11] LABS: Anion Gap 7 (5-15); Carbon Dioxide 22 mmol/L (20-31)
[2025-03-10 06:16] LABS: BUN/Creatinine Ratio 30.2 (10.0-20.0); Glucose 88 mg/dL (74-106)
[2025-03-10 06:21] LABS: Blood Urea Nitrogen 57 mg/dL (9-23); Calcium 8.6 mg/dL (8.7-10.4); Chloride 108 mmol/L (98-107)
[2025-03-10 06:26] LABS: Basophils % (manual) 0 (0.0-2.0); Blast Cells 0; Metamyelocytes % 0; Myelocytes % 0; Promyelocytes % 0; Reactive Lymphocytes 0
[2025-03-10 07:08] LABS: Band Neutrophils % (manual) 11; Eosinophils % (manual) 8 (0-7); Lymphocytes % (manual) 18 (10.0-50.0); Monocytes % (manual) 4 (0-12); Platelet Estimate Increased
[2025-03-10] MEDS: SODIUM ZIRCONIUM CYCL 10 GM PAK PO SCH (09:27)
--- NOTE | 2025-03-10 14:41 | DVHPN2 ---
Subjective Denies any symptoms Reviewed: Care Plan, H&P, Labs, Medications, Previous Orders, Radiology, Other (Consultations) Changes from previous H/P or p: No Changes General: Per HPI Objective Vitals Vital Signs Date Time Temp Pulse Resp B/P (MAP) Pulse Ox O2 Delivery O2 Flow Rate FiO2 03/10/25 13:00 97.3 84 18 168/94 (118) 97 97.3 03/10/25 10:00 Room Air 0.0 03/10/25 08:00 21 Intake/Output Intake and Output 03/10/25 07:00 Intake Total 2713.8 ml Output Total 351 ml Balance 2362.8 ml Intake Oral 1350 ml IV Total 1363.8 ml Output Urine Total 350 ml Stool Total 1 ml # Bowel Movements 1 Exam Assess patient will sitting in her wheelchair. General Appearance: Alert, Oriented X3, Cooperative, No acute distress HEENT: Atraumatic Lungs: Clear to auscultation, Normal air movement Cardiovascular: Regular rate, Normal S1, Normal S2 Abdomen: Normal bowel sounds, Soft, No tenderness Extremities: No edema, Normal pulses, Other (Less redness and swelling to left lower extremity) Neuro: Normal speech, Other Skin: Wounds (See nurse notes and pictures) Psych/Mental Status: Mental status NL, Mood NL Medications Current Medications Medications Dose Ordered Sig/John Route Start Time Stop Time Status Last Admin Dose Admin Ondansetron HCl 4 mg Q4HP PRN IV 02/19/25 13:45 03/06/25 02:55 4 MG Docusate Sodium 100 mg BIDPRN PRN PO 02/19/25 13:45 03/04/25 17:41 100 MG Acetaminophen 650 mg Q6HP PRN PO 02/19/25 13:45 03/09/25 21:36 650 MG Nitroglycerin 0.4 mg Q5MINP PRN SL 02/19/25 13:45 Diagnostic Test (Pha) 1 strip ACHS 02/19/25 17:00 03/10/25 11:30 1 STRIP Dextrose 50 ml UD PRN IV 02/19/25 15:45 03/06/25 11:34 50 ML Duloxetine HCl 30 mg DAILY PO 02/20/25 10:00 03/10/25 09:29 30 MG Gemfibrozil 600 mg BIDAC PO 02/19/25 17:00 03/10/25 05:28 600 MG Lamotrigine 25 mg DAILY PO 02/20/25 10:00 03/10/25 09:29 25 MG Potassium Chloride 100 ml @ 50 mls/hr Q2H IV 02/19/25 23:15 02/20/25 05:14 Cancel Melatonin 10 mg HS PO 02/20/25 22:00 03/09/25 21:36 10 MG Potassium Chloride 100 ml @ 50 mls/hr Q2H IV 02/20/25 07:15 02/20/25 11:14 UNV Atorvastatin Calcium 40 mg HS PO 02/20/25 22:00 03/09/25 21:36 40 MG Aspirin 81 mg DAILY PO 02/21/25 10:00 03/10/25 09:30 81 MG Lorazepam 1 mg Q8HPRN PRN PO 02/23/25 14:15 02/28/25 21:38 1 MG Nicotine 1 patch DAILY TD 02/23/25 14:48 03/10/25 09:27 1 PATCH Hydralazine HCl 10 mg Q6HPRN IV 02/24/25 12:00 03/10/25 12:35 10 MG Enoxaparin Sodium 40 mg DAILY SC 02/27/25 10:00 03/10/25 09:28 40 MG Insulin Human Regular ACHS SC 02/28/25 17:00 03/09/25 21:42 4 UNITS Gabapentin 100 mg TID PO 03/02/25 14:00 03/10/25 14:14 100 MG Calcium Acetate 1,334 mg TIDWMEALS PO 03/04/25 12:00 03/10/25 12:28 1,334 MG Ergocalciferol 50,000 unit Q7D PO 03/04/25 11:45 03/04/25 17:41 50,000 UNIT Ampicillin Sodium/ Sulbactam Sodium 3 gm/Sodium Chloride 100 ml @ 100 mls/hr Q6HR IV 03/05/25 17:00 03/10/25 12:28 100 MLS/HR Zirconium Oxide 10 gm TID PO 03/07/25 14:00 Cancel Sodium Bicarbonate 50 ml/ Sodium Chloride 1,050 ml @ 100 mls/hr [id number] IV 03/07/25 11:45 Cancel Zirconium Oxide 10 gm DAILY PO 03/10/25 10:00 03/13/25 09:59 03/10/25 09:27 10 GM Acetaminophen/ Hydrocodone Bitart 1 tab Q6HP PRN PO 03/09/25 13:30 03/10/25 09:29 1 TAB Insulin Glargine 10 units HS SC 03/10/25 22:00 Nifedipine 60 mg DAILY PO 03/11/25 10:00 UNV Laboratory Results Laboratory Tests 03/10/25 05:01 Chemistry Test 03/10/25 05:01 Calcium Level 8.6 mg/dL (8.7-10.4) L Urinalysis Test 02/19/25 17:27 03/04/25 05:00 Urine Color Colorless (Yellow) Urine Clarity Clear (Clear) Urine pH 6.5 (5.0-9.0) Urine Specific [place] 1.008 (1.001-1.035) Urine Protein 2+ (Negative) H Urine Ketones 1+ (Negative) H Urine Blood 1+ /uL (Negative) H Urine Nitrite Negative (Negative) Urine Bilirubin Negative (Negative) Urine Urobilinogen Normal mg/dL (Negative) Urine Leukocyte Esterase Negative /uL (Negative) Urine RBC 6 /hpf (0 - 4) Urine Microscopic WBC 2 /HPF (0-5) Urine Squamous Epithelial Cells Few /hpf (<5) Urine Bacteria None seen /hpf (None Seen) Urine Glucose 2+ mg/dL (Normal) H Urine Creatinine 25.51 mg/dL (30.0-125.0) L Urine Protein/Creatinine Ratio 14.00 Urine Sodium 80 mmol/L (40-220) Urine Total Protein 357.1 mg/dL (1-14) H Microbiology Microbiology Date/Time Source Procedure Growth Status 03/06/25 14:37 Knee Left Gram Stain - Final Resulted 03/06/25 14:37 Knee Left Anaerobic Culture - Preliminary Resulted 03/06/25 14:37 Aerobic Culture - Final Staphylococcus aureus Resulted 03/04/25 13:29 Aspirate Gram Stain - Final Complete 03/04/25 13:29 Body Fluid Culture - Final Staphylococcus aureus Complete 02/19/25 17:27 Urine - Almaraz [place] Urine Culture - Final Complete 02/19/25 13:14 Blood Blood Culture - Final NO GROWTH AFTER 5 DAYS OF INCUBATION. Complete Labs and/or images reviewed: Labs reviewed by me, Image(s) reviewed by me Assessment/Plan Assessment/Plan Impression: Multiple acute/subacute strokes Left lower extremity cellulitis Rule out left septic knee Hypokalemia Acute kidney injury likely hemodynamically mediated due to vasomotor nephropathy Chronic kidney disease Peripheral vascular disease status post right [id number] amputation 6 months ago Poorly controlled type 2 diabetes Sepsis Hypertension Mixed hyperlipidemia Polysubstance use disorder Diabetic neuropathy -? Suicidal ideation -septic bursitis with Staphylococcus aureus Plan: -events: Patient was renal function improving. Patient now reporting having some shortness of breaths. Exertional dyspnea appreciated while patient was moving in bed. -chest x-ray -pulse dose of Lasix -Lokelma daily Start sodium bicarbonate drip with dextrose -antibiotics: Unasyn. -continue antidepressants -continue anticoagulation -repeat labs in a.m. -social service consultation for discharge planning including senior living facility. Total time spent with patient discussing and formulating plan of care: 35 minutes. This medical document was created using an electronic medical record system with [employer] dictation system. Although this document has been carefully reviewed, there may still be some phonetic and typographical errors. These areas are purely typographical due to imperfections of the software programs, and do not reflect any compromise in the patient's medical care. Plan discussed with: Patient, Other (RN) My Orders Orders - JUSTIN BONILLA NP Procedure Category Date Status Time Cleanse Wound With HAYDER 03/09/25 In Process Wound Clean 18:39 Insulin Lantus PHA 03/10/25 In Process (Glargine) (Lantus) 22:00 Nifedipine Er PHA 03/11/25 Logged (Procardia Xl 10:00 Basic Metabolic Panel LAB 03/11/25 Verified 04:00 Chest Xray 1 View XY 03/10/25 Verified 14:39 Furosemide Injection PHA 03/10/25 Verified (Lasix Injection) 14:45 Date of Service: Mar 10, 2025 Billing Provider: JUSTIN BONILLA NP Common Visit Codes: 37396-[id number] INP/OBS CARE(HIGH) Procedure Codes: 43886-AEZD-[id number] CONTRERAS NP Mar 10, 2025 14:41
--- NOTE | 2025-03-10 15:40 | DVH ---
CHEST RADIOGRAPH Indication: chf Technique: Single frontal view of the chest was obtained Comparison: XY CHEST PORTABLE on DOS: 02/19/25, XY CHEST PORTABLE on DOS: 06/11/24, CHEST PORTABLE on D OS: 10/02/22, CXRP on DOS: 10/02/22, CXRP on DOS: 04/06/22 FINDINGS: Lines and Tubes: None Lungs: Increased interstitial opacities Pleura: Small right pleural effusion No pneumothorax. Cardiomediastinal contours: Unremarkable Bones: No acute osseous abnormality. IMPRESSION: Cardiomegaly with CHF. Small right pleural effusion.
[2025-03-10] MEDS: FUROSEMIDE 20 MG/2 ML VIAL IV ONE (15:45)
[2025-03-10] MEDS: ALBUTEROL SULF 2.5 MG/0.5ML(0.5%) NEB SOLN NEB SCH (18:35)
[2025-03-10] MEDS: IPRATROPIUM BROM 0.5 MG/2.5ML INH SOL NEB SCH (18:35)
[2025-03-10] MEDS: INSULIN LANTUS (GLARGINE) 1 /0.01ml (100units/ml) SC SCH (22:00)
--- NOTE | 2025-03-10 22:18 | DVHPN2 ---
Progress Note - Dictate Date Seen: Mar 10, 2025 Medical Necessity Reason Pt with a Central, PICC or Fol: Yes The following are medically ne: Almaraz Catheter Subjective Patient was seen and evaluated in follow up. No overnight events. Patient reports exertional dyspnea while moving in bed. HGB 7.2, HCT 23.2, PLT 484, BUN 57, Senior Advisory 1.89. Telemetry reviewed. vital signs Vital Sign Date Time Temp Pulse Resp B/P (MAP) Pulse Ox O2 Delivery O2 Flow Rate FiO2 03/10/25 21:00 98.7 111 19 122/74 (90) 95 98.7 03/10/25 20:22 0.0 21 03/10/25 18:35 Room Air Total Intake and Output 03/09/25 03/09/25 03/10/25 15:00 23:00 07:00 Intake Total 100 ml 850 ml 1763.8 ml Output Total 350 ml 1 ml Balance 100 ml 500 ml 1762.8 ml medications Current Medications Medications Dose Ordered Sig/John Route Start Time Stop Time Status Last Admin Dose Admin Ondansetron HCl 4 mg Q4HP PRN IV 02/19/25 13:45 03/06/25 02:55 4 MG Docusate Sodium 100 mg BIDPRN PRN PO 02/19/25 13:45 03/04/25 17:41 100 MG Acetaminophen 650 mg Q6HP PRN PO 02/19/25 13:45 03/09/25 21:36 650 MG Nitroglycerin 0.4 mg Q5MINP PRN SL 02/19/25 13:45 Diagnostic Test (Pha) 1 strip ACHS 02/19/25 17:00 03/10/25 22:07 1 STRIP Dextrose 50 ml UD PRN IV 02/19/25 15:45 03/06/25 11:34 50 ML Duloxetine HCl 30 mg DAILY PO 02/20/25 10:00 03/10/25 09:29 30 MG Gemfibrozil 600 mg BIDAC PO 02/19/25 17:00 03/10/25 17:13 600 MG Lamotrigine 25 mg DAILY PO 02/20/25 10:00 03/10/25 09:29 25 MG Potassium Chloride 100 ml @ 50 mls/hr Q2H IV 02/19/25 23:15 02/20/25 05:14 Cancel Melatonin 10 mg HS PO 02/20/25 22:00 03/10/25 22:02 10 MG Potassium Chloride 100 ml @ 50 mls/hr Q2H IV 02/20/25 07:15 02/20/25 11:14 UNV Atorvastatin Calcium 40 mg HS PO 02/20/25 22:00 03/10/25 22:01 40 MG Aspirin 81 mg DAILY PO 02/21/25 10:00 03/10/25 09:30 81 MG Lorazepam 1 mg Q8HPRN PRN PO 02/23/25 14:15 02/28/25 21:38 1 MG Nicotine 1 patch DAILY TD 02/23/25 14:48 03/10/25 09:27 1 PATCH Hydralazine HCl 10 mg Q6HPRN IV 02/24/25 12:00 03/10/25 17:21 10 MG Enoxaparin Sodium 40 mg DAILY SC 02/27/25 10:00 03/10/25 09:28 40 MG Insulin Human Regular ACHS SC 02/28/25 17:00 03/10/25 17:16 2 UNITS Gabapentin 100 mg TID PO 03/02/25 14:00 03/10/25 22:01 100 MG Calcium Acetate 1,334 mg TIDWMEALS PO 03/04/25 12:00 03/10/25 17:25 1,334 MG Ergocalciferol 50,000 unit Q7D PO 03/04/25 11:45 03/04/25 17:41 50,000 UNIT Ampicillin Sodium/ Sulbactam Sodium 3 gm/Sodium Chloride 100 ml @ 100 mls/hr Q6HR IV 03/05/25 17:00 03/10/25 17:24 100 MLS/HR Zirconium Oxide 10 gm TID PO 03/07/25 14:00 Cancel Sodium Bicarbonate 50 ml/ Sodium Chloride 1,050 ml @ 100 mls/hr [id number] IV 03/07/25 11:45 Cancel Zirconium Oxide 10 gm DAILY PO 03/10/25 10:00 03/13/25 09:59 03/10/25 09:27 10 GM Acetaminophen/ Hydrocodone Bitart 1 tab Q6HP PRN PO 03/09/25 13:30 03/10/25 17:19 1 TAB Insulin Glargine 10 units HS SC 03/10/25 22:00 Nifedipine 60 mg DAILY PO 03/11/25 10:00 Albuterol 2.5 mg Q6HWA [facility] 03/10/25 18:00 03/10/25 18:35 2.5 MG Ipratropium [place] 0.5 mg Q6HWA [facility] 03/10/25 18:00 03/10/25 18:35 0.5 MG objective GENERAL: Awake, alert, oriented. LUNGS: Clear. CARDIOVASCULAR: Heart sounds are good. ABDOMEN: Soft. laboratory and microbiology Laboratory Tests 03/10/25 05:01 Test 03/10/25 05:01 Range/Units Serum Glucose 88 74-106 mg/dL Problem List Multiple acute/subacute strokes. Hypokalemia. Acute kidney injury. Hypertension, newly diagnosed. Insulin-dependent diabetes mellitus. Status post right BKA. Dyslipidemia. Polysubstance use disorder. Left lower extremity cellulitis. Peripheral vascular disease status post right [id number] amputation 6 months ago. Sepsis. Diabetic neuropathy. Assessment/Plan Continued all current supportive medical care. Geraldine for pain management. Aspirin, Lipitor. DVT prophylactics. IV Hydralazine for SBP >16. IV antibiotics as ordered. Nifedipine. Additional plan as per the hospital course. Dietary Evaluation Review Comments: 1) Esau 1 pk BID 2) Refer Supply Assistant on [place] 3) Continue current plan of care Expected Outcomes/Goals: Pt will meet >75% estimated needs Fu 3-5 days Plan discussed with: Patient YANIRA WINN MD Mar 10, 2025 22:18
[2025-03-11] VITALS (14 sets, daily range): BP systolic 121–160; BP diastolic 65–91; PULSE 100–113; RESP 18–22; TEMP 98.2–99.3; O2SAT 91–100
[2025-03-11 06:59] LABS: Anion Gap 10 (5-15); Carbon Dioxide 22 mmol/L (20-31); Chloride 104 mmol/L (98-107); Potassium 4.4 mmol/L (3.5-5.1)
[2025-03-11 07:01] LABS: Calcium 8.8 mg/dL (8.7-10.4)
[2025-03-11 07:06] LABS: BUN/Creatinine Ratio 26.6 (10.0-20.0); Blood Urea Nitrogen 49 mg/dL (9-23); Glucose 122 mg/dL (74-106); Sodium 136 mmol/L (136-145)
[2025-03-11] MEDS: NIFEdipine ER 30 MG TAB PO SCH (08:40)
--- NOTE | 2025-03-11 13:19 | DVHDS2 ---
Discharge Summary Date of Admission Feb 19, 2025 at 13:38 Date of Discharge: Mar 11, 2025 Admitting Diagnosis Rule out left septic knee Labs/Diagnostic Data: Laboratory Results Test 03/11/25 11:21 03/11/25 06:25 03/10/25 05:01 03/09/25 04:34 POC Glucose 189 mg/dl (70-106) Sodium Level 136 mmol/L (136-145) Potassium Level 4.4 mmol/L (3.5-5.1) Chloride Level 104 mmol/L (98-107) Carbon Dioxide Level 22 mmol/L (20-31) Anion Gap 10 (5-15) Blood Urea Nitrogen 49 mg/dL (9-23) Creatinine 1.84 mg/dL (0.550-1.02) Glomerular Filtration Rate Calc 32 mL/min (>90) BUN/Creatinine Ratio 26.6 (10.0-20.0) Serum Glucose 122 mg/dL (74-106) Calcium Level 8.8 mg/dL (8.7-10.4) White Blood Count 6.4 10^3/uL (4.4-10.8) Red Blood Count 2.72 10^6/uL (4.0-5.20) Hemoglobin 7.6 g/dL (12.2-16.2) Hematocrit 23.2 % (36.0-46.0) Mean Corpuscular Volume 85.3 fL (80.0-100.0) Mean Corpuscular Hemoglobin 27.8 pg (28.0-32.0) Mean Corpuscular Hemoglobin Concent 32.6 g/dL (32.0-36.0) Red Cell Distribution Width 16.2 % (11.8-14.3) Platelet Count 484 10^3/uL (140-450) Mean Platelet Volume 7.8 fL (6.9-10.8) Neutrophils (%) (Auto) % (37.0-80.0) Lymphocytes (%) (Auto) % (10.0-50.0) Monocytes (%) (Auto) % (0.0-12.0) Basophils (%) (Auto) % (0.0-2.0) Neutrophils # (Auto) 10 ^3/uL (1.6-8.6) Lymphocytes # (Auto) 10 ^3/uL (0.4-5.4) Monocytes # (Auto) 10 ^3/uL (0-1.3) Differential Total Cells Counted 100.0 (100) Neutrophils % (Manual) 59 (37.0-80.0) Band Neutrophils % (Manual) 11 Lymphocytes % (Manual) 18 (10.0-50.0) Monocytes % (Manual) 4 (0-12) Eosinophils % (Manual) 8 (0-7) Basophils % (Manual) 0 (0.0-2.0) Metamyelocytes % (manual) 0 Myelocytes % (Manual) 0 Promyelocytes % (Manual) 0 Blast Cells % (Manual) 0 Reactive Lymphocytes 0 Platelet Estimate Increased Eosinophils (%) (Auto) 6.6 % (0.0-7.0) Eosinophils # (Auto) 0.4 10 ^3/uL (0-0.8) Basophils # (Auto) 0.1 10 ^3/uL (0-0.2) Nucleated Red Blood Cells 0.2 % Test 03/07/25 05:23 03/06/25 04:52 03/05/25 05:08 03/04/25 05:00 Anisocytosis (manual) [place] Cells Few Erythrocyte Sedimentation Rate 116 mm/hr (0-20) C-Reactive Protein High Sensitivity 5.00 mg/dL (<1.0) Random Vancomycin Level 16.8 ug/mL (5-10) Urine Creatinine 25.51 mg/dL (30.0-125.0) Urine Protein/Creatinine Ratio 14.00 Urine Sodium 80 mmol/L (40-220) Urine Total Protein 357.1 mg/dL (1-14) Test 03/03/25 14:09 03/03/25 04:41 03/02/25 05:58 02/28/25 06:02 Vitamin D 25-Hydroxy 7.2 ng/mL (30.0-100) Phosphorus Level 6.2 mg/dL (2.4-5.1) Parathyroid Hormone (Intact) 28.5 pg/mL (18.4-80.1) Beta HCG, Quantitative 1.2 mIU/mL (1.5-4.2) Magnesium Level 2.3 mg/dL (1.6-2.6) Total Bilirubin < 0.2 mg/dL (0.2-1.0) Aspartate Amino Transferase (AST) 13 U/L (13-40) Alanine Aminotransferase (ALT) < 9 U/L (7-40) Alkaline Phosphatase 214 U/L (46-116) Total Protein 5.5 g/dL (5.7-8.2) Albumin 3.0 g/dL (3.2-4.8) Test 02/25/25 12:42 02/23/25 13:36 02/21/25 15:30 02/20/25 11:00 Body Fluid Source Knee fluid Body Fluid pH 8.0 Body Fluid WBC (Manual) 225 CUMM (0-200) Body Fluid RBC (Manual) 325 CUMM (0-2000) Body Fluid Mononuclear Cells 10 % Body Fluid Polymorphonuclear Cells 90 % (0-25) Body Fluid Glucose 112 mg/dL (.) Anti-Nuclear Antibody Comment Comment (.) Cytoplasmic ANCA (c-ANCA) Antibody <1:20 titer (Neg:<1:20) Anti-Proteinase 3 (c-ANCA) <0.2 units (0.0-0.9) Atypical p-ANCA <1:20 titer (Neg:<1:20) Perinuclear ANCA (p-ANCA) Antibody <1:20 titer (Neg:<1:20) Myeloperoxidase Antibody <0.2 units (0.0-0.9) NATALIIA-1 Antibody <0.2 AI (0.0-0.9) SS-A/Ro Antibody <0.2 AI (0.0-0.9) SS-B/La Antibody <0.2 AI (0.0-0.9) Sm Antibody <0.2 AI (0.0-0.9) SCALE EXPERT Antibody <0.2 AI (0.0-0.9) Scl-70 (Scleroderma) Antibody <0.2 AI (0.0-0.9) Anti-Double Strand DNA Antibody <1 IU/mL (0-9) Chromatin Antibody <0.2 AI (0.0-0.9) Centromere B Antibody <0.2 AI (0.0-0.9) Complement C3 172 mg/dL (82-167) Complement C4 34 mg/dL (12-38) Uric Acid 5.1 mg/dL (3.1-7.8) Blood Gas Specimen Type Arterial Blood Gas Sample Site Right radial Blood Gas Patient Temperature 37.0 Arterial Blood Date Drawn [id number] Arterial Blood pH 7.314 (7.350-7.450) Arterial Blood Partial Pressure CO2 30.6 mmHg (32.0-45.0) Arterial Blood Partial Pressure O2 78.4 mmHg (83.0-108.0) Arterial Blood HCO3 15.2 mmol/L (21.0-28.0) Arterial Blood Oxygen Saturation 93.9 % (94.0-98.0) Arterial Blood Base Excess -9.8 mmol/L (-2.0-3.0) Arterial Blood Oxyhemoglobin 93.0 % (94.0-98.0) Arterial Blood Carboxyhemoglobin 0.7 % (0.5-1.5) Arterial Blood Methemoglobin 0.3 % (0.0-1.5) [place] Test Yes Blood Gas Total Hemoglobin 11.40 g/dL (12.0-16.0) Blood Gas Modality Room air FiO2 % 21.0 Test 02/20/25 06:00 02/19/25 17:27 02/19/25 15:25 02/19/25 13:14 Hemoglobin A1c 9.9 % A1C (<5.7) Triglycerides Level 186 mg/dL (< 150) Cholesterol Level 304 mg/dL (< 200) LDL Cholesterol 207 mg/dL (< 100) HDL Cholesterol 38 mg/dL (40-59) Beta-Hydroxybutyric Acid 0.922 mmol/L (< 0.4) Urine Color Colorless (Yellow) Urine Clarity Clear (Clear) Urine pH 6.5 (5.0-9.0) Urine Specific [place] 1.008 (1.001-1.035) Urine Protein 2+ (Negative) Urine Ketones 1+ (Negative) Urine Blood 1+ /uL (Negative) Urine Nitrite Negative (Negative) Urine Bilirubin Negative (Negative) Urine Urobilinogen Normal mg/dL (Negative) Urine Leukocyte Esterase Negative /uL (Negative) Urine RBC 6 /hpf (0 - 4) Urine Microscopic WBC 2 /HPF (0-5) Urine Squamous Epithelial Cells Few /hpf (<5) Urine Bacteria None seen /hpf (None Seen) Urine Glucose 2+ mg/dL (Normal) Urine Opiates Screen Neg (NEGATIVE) Urine Fentanyl Screen Neg (NEGATIVE) Urine Barbiturates Screen Neg (NEGATIVE) Urine Phencyclidine Screen Neg (NEGATIVE) Urine Amphetamines Screen Neg (NEGATIVE) Urine Benzodiazepines Screen Neg (NEGATIVE) Urine Cocaine Screen Neg (NEGATIVE) Urine Cannabinoids Screen Pos (NEGATIVE) Troponin I High Sensitivity 25 ng/L (</=34) Lactic Acid Level 0.9 mmol/L (0.4-2.0) Test 02/19/25 11:30 Plasma/Serum Blood Alcohol < 3.0 mg/dL (<10) Other Laboratory Tests 03/11/25 06:25 03/10/25 05:01 Brief Hx & Hospital Course: History of Present Illness Edie Kaur is a 54-year-old female with past medical history of right BKA, hyperlipidemia, hypertension, diabetes, anxiety, major depressive disorder, anxiety, and GERD who came in for generalized weakness. Patient is being seen with her significant other at the bedside. He states that on Monday after work he noticed that she wasn't feeling well, had some difficulty moving on her left side. On Monday he states she slept most of the day, but was still not moving well and he describes it as her "flopping around and her speech was off". He states that since her BKA she has been mostly crawling to get around. He decided that if she still wasn't doing well in the morning he would take her to the hospital. This morning the patient still could not move her left leg, she had improved movement of her left arm, and her speech remained slurred so he brought her to the hospital. On assessment, patient's speech is slurred and repetitive, she only has minimal control of her left arm, and can not move her left leg. Course of hospitalization: Patient had challenging hospitalization including acute CVA, with MAGALIS performed, which did not reveal any acute thrombus. Patient had treatment to her left knee including multiple aspiration and drainage, empiric antibiotic therapy, with the patient growing Staphylococcus aureus. Patient was subsequently had I and D of left knee bursitis. Patient was white blood cell count then improved. Patient was currently on Unasyn, 4 times a day. Patient also had severe difficulty with her anxiety and questionable suicidal ideation. Patient was assessed by Psychiatry on several occasions with SI being ruled out. Patient was started on antidepressants. Given the patient's home support system and her recent right ctjle-[id number]-vzro amputation, it was felt the patient would be best served by being transferred to long-term facility for rehabilitation as well as an additional week of IV antibiotic therapy. Patient was agreeable this discharge plan. All questions answered. Physical examination General: Alert and Oriented x3. No acute distress. Well-nourished. Eyes: EOMI. Anicteric. HENT: Moist mucous membranes. Lungs: Clear to auscultation bilaterally. No accessory muscle use. Cardiovascular: Regular rate and rhythm. No murmur. No JVD. Abdomen: Soft, non-tender and non-distended. No palpable masses. Extremities: No edema. Non-tender. Right BKA. Left knee dressing dry and intact. Persistent swelling. Erythema improving. Skin: No rashes or lesions. Warm. Neurologic: No focal neurological deficits. CN II-XII grossly intact, but not individually tested. Psychiatric: Cooperative. Appropriate mood and affect. Total time spent with patient discussing and formulating plan of care: 35 minutes. This medical document was created using an electronic medical record system with [employer] system. Although this document has been carefully reviewed, there may still be some phonetic and typographical errors. These areas are purely typographical due to imperfections of the software programs, and do not reflect any compromise in the patient's medical care. Consults/Reason for consult Orthopedic surgery: Left knee septic bursitis Cardiology: Acute CVA, requiring MAGALIS Neurology: Acute CVA Psychiatry: Depression with suicidal ideation Operations or Procedures Left knee I and D MAGALIS Multiple joint aspiration Condition at Discharge: Fair Final Diagnosis/Problems List Septic left patella bursitis Secondary Diagnosis: Multiple acute/subacute strokes Left lower extremity cellulitis Rule out left septic knee Hypokalemia Acute kidney injury likely hemodynamically mediated due to vasomotor nephropathy Chronic kidney disease Peripheral vascular disease status post right [id number] amputation 6 months ago Poorly controlled type 2 diabetes Sepsis Hypertension Mixed hyperlipidemia Polysubstance use disorder Diabetic neuropathy -? Suicidal ideation -septic bursitis with Staphylococcus aureus Discharge Disposition: Residential Facility Discharge Instruct/Medications Diet: Consistent carbohydrate Activity: No Restrictions, As Tolerated Follow Up/Referral: per accepting provider Medications: Refer to medication reconciliation form 36 Discharge Statement: "Patient was advised to return to the ER or call 911 if any headaches, dizziness, shortness of breath, chest pain, abdominal pain, bleeding, fevers, or worsening of medical condition. Patient was counseled about treatment plan, medications, possible side effects, patientverbalized understanding. All questions were answered to the best of my ability. This discharge took greater then 30 minutes in planning, reviewing documentation, counseling the patient, and discussing with other team members." ASSESSMENT ASSESSMENT Assessment Septic left patella bursitis Date of Service: Mar 11, 2025 Billing Provider: JUSTIN BONILLA NP Common Visit Codes: 12522-MMU/OBS DISCH DAY >30min JUSTIN BONILLA NP Mar 11, 2025 13:19
--- NOTE | 2025-03-11 23:39 | DVHPN2 ---
Progress Note - Dictate Date Seen: Mar 11, 2025 Medical Necessity Reason Pt with a Central, PICC or Fol: Yes The following are medically ne: [place] Catheter Subjective Patient was seen and evaluated in follow up. Patient is complaining of some SOB. BUN 49, Small [employer] Rep[employer]r 1.84. BS are fluctuating. Patient is pending SNF placement with outpatient IV antibiotics. Telemetry reviewed. vital signs Vital Sign Date Time Temp Pulse Resp B/P (MAP) Pulse Ox O2 Delivery O2 Flow Rate FiO2 03/11/25 21:00 98.8 111 19 137/91 (106) 93 98.8 03/11/25 18:49 Room Air 0.0 03/11/25 18:49 21 Total Intake and Output 03/10/25 03/10/25 03/11/25 15:00 23:00 07:00 Intake Total 100 ml 1200 ml 550 ml Output Total 3500 ml 2400 ml Balance 100 ml -2300 ml -1850 ml medications Current Medications Medications Dose Ordered Sig/John Route Start Time Stop Time Status Last Admin Dose Admin Ondansetron HCl 4 mg Q4HP PRN IV 02/19/25 13:45 03/06/25 02:55 4 MG Docusate Sodium 100 mg BIDPRN PRN PO 02/19/25 13:45 03/04/25 17:41 100 MG Acetaminophen 650 mg Q6HP PRN PO 02/19/25 13:45 03/09/25 21:36 650 MG Nitroglycerin 0.4 mg Q5MINP PRN SL 02/19/25 13:45 Diagnostic Test (Pha) 1 strip ACHS 02/19/25 17:00 03/11/25 21:39 1 STRIP Dextrose 50 ml UD PRN IV 02/19/25 15:45 03/06/25 11:34 50 ML Duloxetine HCl 30 mg DAILY PO 02/20/25 10:00 03/11/25 08:41 30 MG Gemfibrozil 600 mg BIDAC PO 02/19/25 17:00 03/11/25 17:00 600 MG Lamotrigine 25 mg DAILY PO 02/20/25 10:00 03/11/25 08:40 25 MG Potassium Chloride 100 ml @ 50 mls/hr Q2H IV 02/19/25 23:15 02/20/25 05:14 Cancel Melatonin 10 mg HS PO 02/20/25 22:00 03/11/25 21:38 10 MG Potassium Chloride 100 ml @ 50 mls/hr Q2H IV 02/20/25 07:15 02/20/25 11:14 UNV Atorvastatin Calcium 40 mg HS PO 02/20/25 22:00 03/11/25 21:38 40 MG Aspirin 81 mg DAILY PO 02/21/25 10:00 03/11/25 08:40 81 MG Lorazepam 1 mg Q8HPRN PRN PO 02/23/25 14:15 02/28/25 21:38 1 MG Nicotine 1 patch DAILY TD 02/23/25 14:48 03/11/25 08:37 1 PATCH Enoxaparin Sodium 40 mg DAILY SC 02/27/25 10:00 03/11/25 08:37 40 MG Insulin Human Regular ACHS SC 02/28/25 17:00 03/11/25 17:04 4 UNITS Gabapentin 100 mg TID PO 03/02/25 14:00 03/11/25 21:38 100 MG Calcium Acetate 1,334 mg TIDWMEALS PO 03/04/25 12:00 03/11/25 17:00 1,334 MG Ergocalciferol 50,000 unit Q7D PO 03/04/25 11:45 03/04/25 17:41 50,000 UNIT Ampicillin Sodium/ Sulbactam Sodium 3 gm/Sodium Chloride 100 ml @ 100 mls/hr Q6HR IV 03/05/25 17:00 03/11/25 17:34 100 MLS/HR Zirconium Oxide 10 gm TID PO 03/07/25 14:00 Cancel Sodium Bicarbonate 50 ml/ Sodium Chloride 1,050 ml @ 100 mls/hr [id number] IV 03/07/25 11:45 Cancel Zirconium Oxide 10 gm DAILY PO 03/10/25 10:00 03/13/25 09:59 03/11/25 08:37 10 GM Acetaminophen/ Hydrocodone Bitart 1 tab Q6HP PRN PO 03/09/25 13:30 03/11/25 21:39 1 TAB Insulin Glargine 10 units HS SC 03/10/25 22:00 03/11/25 21:42 10 UNITS Nifedipine 60 mg DAILY PO 03/11/25 10:00 03/11/25 08:40 60 MG Albuterol 2.5 mg Q6HWA NEB 03/10/25 18:00 03/11/25 18:49 2.5 MG Ipratropium [place] 0.5 mg Q6HWA NEB 03/10/25 18:00 03/11/25 18:49 0.5 MG Hydralazine HCl 10 mg Q6HPRN PRN IV 03/11/25 15:30 objective GENERAL: Awake, alert, oriented. LUNGS: Clear. CARDIOVASCULAR: Heart sounds are good. ABDOMEN: Soft. laboratory and microbiology Laboratory Tests 03/11/25 06:25 03/10/25 05:01 Test 03/11/25 06:25 Range/Units Serum Glucose 122 H 74-106 mg/dL Problem List Multiple acute/subacute strokes. Hypokalemia. Acute kidney injury. Hypertension, newly diagnosed. Insulin-dependent diabetes mellitus. Status post right BKA. Dyslipidemia. Polysubstance use disorder. Left lower extremity cellulitis. Peripheral vascular disease status post right [id number] amputation 6 months ago. Sepsis. Diabetic neuropathy. Assessment/Plan Continued all current supportive medical care. [place] for pain management. Aspirin, Lipitor. DVT prophylactics. IV Hydralazine for SBP >16. IV antibiotics as ordered. Nifedipine. Additional plan as per the hospital course. Dietary Evaluation Review Comments: 1) [place] 1 pk BID 2) Refer Pest Management Supervisor on DC 3) Continue current plan of care Expected Outcomes/Goals: Pt will meet >75% estimated needs Fu 3-5 days Plan discussed with: Patient YANIRA WINN MD Mar 11, 2025 23:38
[2025-03-12] VITALS (15 sets, daily range): BP systolic 110–149; BP diastolic 60–87; PULSE 57–114; RESP 18–20; TEMP 97.9–99.8; O2SAT 91–100
[2025-03-12] MEDS: guaiFENesin 200 MG/10 ML UD GT PRN (09:07)
--- NOTE | 2025-03-12 09:33 | DVHPN2 ---
Subjective Denies any symptoms Reviewed: Care Plan, H&P, Labs, Medications, Previous Orders, Radiology, Other (Consultations) Changes from previous H/P or p: No Changes General: Per HPI Objective Vitals Vital Signs Date Time Temp Pulse Resp B/P (MAP) Pulse Ox O2 Delivery O2 Flow Rate FiO2 03/12/25 09:06 147/87 03/12/25 08:00 Room Air* 0 21 03/12/25 06:58 101 18 100 03/12/25 05:00 99.8 99.8 Intake/Output Intake and Output 03/12/25 07:00 Intake Total 1895 ml Output Total 2550 ml Balance -655 ml Intake Oral 1695 ml IV Total 200 ml Output Urine Total 2550 ml Exam Assess patient will sitting in her wheelchair. General Appearance: Alert, Oriented X3, Cooperative, No acute distress HEENT: Atraumatic Lungs: Clear to auscultation, Normal air movement Cardiovascular: Regular rate, Normal S1, Normal S2 Abdomen: Normal bowel sounds, Soft, No tenderness Extremities: No edema, Normal pulses, Other (Less redness and swelling to left lower extremity) Neuro: Normal speech, Other Skin: Wounds (See nurse notes and pictures) Psych/Mental Status: Mental status NL, Mood NL Medications Current Medications Medications Dose Ordered Sig/John Route Start Time Stop Time Status Last Admin Dose Admin Ondansetron HCl 4 mg Q4HP PRN IV 02/19/25 13:45 03/06/25 02:55 4 MG Docusate Sodium 100 mg BIDPRN PRN PO 02/19/25 13:45 03/04/25 17:41 100 MG Acetaminophen 650 mg Q6HP PRN PO 02/19/25 13:45 03/09/25 21:36 650 MG Nitroglycerin 0.4 mg Q5MINP PRN SL 02/19/25 13:45 Diagnostic Test (Pha) 1 strip ACHS 02/19/25 17:00 03/12/25 06:57 1 STRIP Dextrose 50 ml UD PRN IV 02/19/25 15:45 03/06/25 11:34 50 ML Duloxetine HCl 30 mg DAILY PO 02/20/25 10:00 03/12/25 09:06 30 MG Gemfibrozil 600 mg BIDAC PO 02/19/25 17:00 03/12/25 06:54 600 MG Lamotrigine 25 mg DAILY PO 02/20/25 10:00 03/12/25 09:06 25 MG Potassium Chloride 100 ml @ 50 mls/hr Q2H IV 02/19/25 23:15 02/20/25 05:14 Cancel Melatonin 10 mg HS PO 02/20/25 22:00 03/11/25 21:38 10 MG Potassium Chloride 100 ml @ 50 mls/hr Q2H IV 02/20/25 07:15 02/20/25 11:14 UNV Atorvastatin Calcium 40 mg HS PO 02/20/25 22:00 03/11/25 21:38 40 MG Aspirin 81 mg DAILY PO 02/21/25 10:00 03/12/25 09:05 81 MG Lorazepam 1 mg Q8HPRN PRN PO 02/23/25 14:15 02/28/25 21:38 1 MG Nicotine 1 patch DAILY TD 02/23/25 14:48 03/12/25 09:04 1 PATCH Enoxaparin Sodium 40 mg DAILY SC 02/27/25 10:00 03/12/25 09:07 40 MG Insulin Human Regular ACHS SC 02/28/25 17:00 03/11/25 17:04 4 UNITS Gabapentin 100 mg TID PO 03/02/25 14:00 03/12/25 06:54 100 MG Calcium Acetate 1,334 mg TIDWMEALS PO 03/04/25 12:00 03/12/25 09:05 1,334 MG Ergocalciferol 50,000 unit Q7D PO 03/04/25 11:45 03/04/25 17:41 50,000 UNIT Ampicillin Sodium/ Sulbactam Sodium 3 gm/Sodium Chloride 100 ml @ 100 mls/hr Q6HR IV 03/05/25 17:00 03/12/25 06:54 100 MLS/HR Zirconium Oxide 10 gm TID PO 03/07/25 14:00 Cancel Sodium Bicarbonate 50 ml/ Sodium Chloride 1,050 ml @ 100 mls/hr [id number] IV 03/07/25 11:45 Cancel Zirconium Oxide 10 gm DAILY PO 03/10/25 10:00 03/13/25 09:59 03/12/25 09:07 10 GM Acetaminophen/ Hydrocodone Bitart 1 tab Q6HP PRN PO 03/09/25 13:30 03/12/25 09:05 1 TAB Nifedipine 60 mg DAILY PO 03/11/25 10:00 03/12/25 09:06 60 MG Albuterol 2.5 mg Q6HWA NEB 03/10/25 18:00 03/12/25 06:51 2.5 MG Ipratropium [place] 0.5 mg Q6HWA NEB 03/10/25 18:00 03/12/25 06:52 0.5 MG Hydralazine HCl 10 mg Q6HPRN PRN IV 03/11/25 15:30 Guaifenesin 200 mg Q4HP PRN GT 03/12/25 07:15 03/12/25 09:07 200 MG Laboratory Results Laboratory Tests 03/10/25 05:01 03/11/25 06:25 Urinalysis Test 02/19/25 17:27 03/04/25 05:00 Urine Color Colorless (Yellow) Urine Clarity Clear (Clear) Urine pH 6.5 (5.0-9.0) Urine Specific [place] 1.008 (1.001-1.035) Urine Protein 2+ (Negative) H Urine Ketones 1+ (Negative) H Urine Blood 1+ /uL (Negative) H Urine Nitrite Negative (Negative) Urine Bilirubin Negative (Negative) Urine Urobilinogen Normal mg/dL (Negative) Urine Leukocyte Esterase Negative /uL (Negative) Urine RBC 6 /hpf (0 - 4) Urine Microscopic WBC 2 /HPF (0-5) Urine Squamous Epithelial Cells Few /hpf (<5) Urine Bacteria None seen /hpf (None Seen) Urine Glucose 2+ mg/dL (Normal) H Urine Creatinine 25.51 mg/dL (30.0-125.0) L Urine Protein/Creatinine Ratio 14.00 Urine Sodium 80 mmol/L (40-220) Urine Total Protein 357.1 mg/dL (1-14) H Microbiology Microbiology Date/Time Source Procedure Growth Status 03/06/25 14:37 Knee Left Gram Stain - Final Complete 03/06/25 14:37 Knee Left Anaerobic Culture - Final Complete 03/06/25 14:37 Aerobic Culture - Final Staphylococcus aureus Complete 03/04/25 13:29 Aspirate Gram Stain - Final Complete 03/04/25 13:29 Body Fluid Culture - Final Staphylococcus aureus Complete 02/19/25 17:27 Urine - [place] Urine Culture - Final Complete 02/19/25 13:14 Blood Blood Culture - Final NO GROWTH AFTER 5 DAYS OF INCUBATION. Complete Labs and/or images reviewed: Labs reviewed by me, Image(s) reviewed by me Assessment/Plan Assessment/Plan Impression: Multiple acute/subacute strokes Left lower extremity cellulitis Rule out left septic knee Hypokalemia Acute kidney injury likely hemodynamically mediated due to vasomotor nephropathy Chronic kidney disease Peripheral vascular disease status post right [id number]-[id number] amputation 6 months ago Poorly controlled type 2 diabetes Sepsis Hypertension Mixed hyperlipidemia Polysubstance use disorder Diabetic neuropathy -? Suicidal ideation -septic bursitis with Staphylococcus aureus Plan: -events: Patient had hypoglycemia this am. Decreased oral intake yesterday. Stop lantus. Discussed with patient and mother plan of care. -chest x-ray -antibiotics: Unasyn. -continue antidepressants -continue anticoagulation -repeat labs in a.m. -social service consultation for discharge planning including halfway facility. Total time spent with patient discussing and formulating plan of care: 35 minutes. This medical document was created using an electronic medical record system with [employer] dictation system. Although this document has been carefully reviewed, there may still be some phonetic and typographical errors. These areas are purely typographical due to imperfections of the software programs, and do not reflect any compromise in the patient's medical care. Plan discussed with: Patient, Other (RN) My Orders Orders - JUSTIN BONILLA NP Procedure Category Date Status Time Discharge DISCHARGE 03/11/25 Transmitted 13:08 Hydralazine Injection PHA 03/11/25 In Process (Apresoline Inject 15:30 Incentive Spirometry ORDERS 03/12/25 Transmitted Q 1hr 09:06 Date of Service: Mar 12, 2025 Billing Provider: JUSTIN BONILLA NP Common Visit Codes: [id number] INP/OBS CARE(HIGH) JUSTIN BONILLA NP Mar 12, 2025 09:33
[2025-03-12] MEDS: guaiFENesin 200 MG/10 ML UD PO PRN (22:00)
--- NOTE | 2025-03-12 23:17 | DVHPN2 ---
Progress Note - Dictate Date Seen: Mar 12, 2025 Medical Necessity Reason Pt with a Central, PICC or Fol: Yes The following are medically ne: Almaraz Catheter Subjective Patient was seen and evaluated in follow up. Patient is complaining of a cough with SOB. Patient had hypoglycemia this am. Patient had decreased p.o. intake yesterday. Per CM, SNF auth is still pending. Telemetry reviewed. vital signs Vital Sign Date Time Temp Pulse Resp B/P (MAP) Pulse Ox O2 Delivery O2 Flow Rate FiO2 03/12/25 12:06 95 18 98 03/12/25 12:00 Room Air* 0 21 03/12/25 09:06 147/87 03/12/25 09:00 98.0 98.0 Total Intake and Output 03/11/25 03/11/25 03/12/25 15:00 23:00 07:00 Intake Total 100 ml 720 ml 1075 ml Output Total 1550 ml 1000 ml Balance 100 ml -830 ml 75 ml medications Current Medications Medications Dose Ordered Sig/John Route Start Time Stop Time Status Last Admin Dose Admin Ondansetron HCl 4 mg Q4HP PRN IV 02/19/25 13:45 03/06/25 02:55 4 MG Docusate Sodium 100 mg BIDPRN PRN PO 02/19/25 13:45 03/04/25 17:41 100 MG Acetaminophen 650 mg Q6HP PRN PO 02/19/25 13:45 03/09/25 21:36 650 MG Nitroglycerin 0.4 mg Q5MINP PRN SL 02/19/25 13:45 Diagnostic Test (Pha) 1 strip ACHS 02/19/25 17:00 03/12/25 11:26 1 STRIP Dextrose 50 ml UD PRN IV 02/19/25 15:45 03/06/25 11:34 50 ML Duloxetine HCl 30 mg DAILY PO 02/20/25 10:00 03/12/25 09:06 30 MG Gemfibrozil 600 mg BIDAC PO 02/19/25 17:00 03/12/25 06:54 600 MG Lamotrigine 25 mg DAILY PO 02/20/25 10:00 03/12/25 09:06 25 MG Potassium Chloride 100 ml @ 50 mls/hr Q2H IV 02/19/25 23:15 02/20/25 05:14 Cancel Melatonin 10 mg HS PO 02/20/25 22:00 03/11/25 21:38 10 MG Potassium Chloride 100 ml @ 50 mls/hr Q2H IV 02/20/25 07:15 02/20/25 11:14 UNV Atorvastatin Calcium 40 mg HS PO 02/20/25 22:00 03/11/25 21:38 40 MG Aspirin 81 mg DAILY PO 02/21/25 10:00 03/12/25 09:05 81 MG Lorazepam 1 mg Q8HPRN PRN PO 02/23/25 14:15 02/28/25 21:38 1 MG Nicotine 1 patch DAILY TD 02/23/25 14:48 03/12/25 09:04 1 PATCH Enoxaparin Sodium 40 mg DAILY SC 02/27/25 10:00 03/12/25 09:07 40 MG Insulin Human Regular ACHS SC 02/28/25 17:00 03/11/25 17:04 4 UNITS Gabapentin 100 mg TID PO 03/02/25 14:00 03/12/25 13:50 100 MG Calcium Acetate 1,334 mg TIDWMEALS PO 03/04/25 12:00 03/12/25 11:25 1,334 MG Ergocalciferol 50,000 unit Q7D PO 03/04/25 11:45 03/04/25 17:41 50,000 UNIT Ampicillin Sodium/ Sulbactam Sodium 3 gm/Sodium Chloride 100 ml @ 100 mls/hr Q6HR IV 03/05/25 17:00 03/12/25 11:25 100 MLS/HR Zirconium Oxide 10 gm TID PO 03/07/25 14:00 Cancel Sodium Bicarbonate 50 ml/ Sodium Chloride 1,050 ml @ 100 mls/hr [id number] IV 03/07/25 11:45 Cancel Zirconium Oxide 10 gm DAILY PO 03/10/25 10:00 03/13/25 09:59 03/12/25 09:07 10 GM Acetaminophen/ Hydrocodone Bitart 1 tab Q6HP PRN PO 03/09/25 13:30 03/12/25 09:05 1 TAB Nifedipine 60 mg DAILY PO 03/11/25 10:00 03/12/25 09:06 60 MG Albuterol 2.5 mg Q6HWA NEB 03/10/25 18:00 03/12/25 12:02 2.5 MG Ipratropium [place] 0.5 mg Q6HWA NEB 03/10/25 18:00 03/12/25 12:02 0.5 MG Hydralazine HCl 10 mg Q6HPRN PRN IV 03/11/25 15:30 Guaifenesin 200 mg Q4HP PRN GT 03/12/25 07:15 03/12/25 09:07 200 MG objective GENERAL: Awake, alert, oriented. LUNGS: Clear. CARDIOVASCULAR: Heart sounds are good. ABDOMEN: Soft. laboratory and microbiology Laboratory Tests 03/11/25 06:25 03/10/25 05:01 Test 03/11/25 06:25 Range/Units Serum Glucose 122 H 74-106 mg/dL Problem List Multiple acute/subacute strokes. Hypokalemia. Acute kidney injury. Hypertension, newly diagnosed. Insulin-dependent diabetes mellitus. Status post right BKA. Dyslipidemia. Polysubstance use disorder. Left lower extremity cellulitis. Peripheral vascular disease status post right [id number] amputation 6 months ago. Sepsis. Diabetic neuropathy. Assessment/Plan Continued all current supportive medical care. [place] for pain management. Aspirin, Lipitor. DVT prophylactics. IV Hydralazine for SBP >16. IV antibiotics as ordered. Nifedipine. Additional plan as per the hospital course. Dietary Evaluation Review Comments: 1) [place] 1 pk BID 2) Refer Alcoholic Counselor on DC 3) Continue current plan of care Expected Outcomes/Goals: Pt will meet >75% estimated needs Fu 3-5 days Plan discussed with: Patient YANIRA WINN MD Mar 12, 2025 14:00
[2025-03-13] VITALS (100 sets, daily range): BP systolic 86–147; BP diastolic 54–81; PULSE 63–110; RESP 12–98; TEMP 97.8–99.4; O2SAT 92–100
[2025-03-13] MEDS: SUCCINYLCHOLINE CHLORIDE 20 MG/ML 10ML VIAL IV ONE ×2 (01:40→03:00)
[2025-03-13] MEDS: ETOMIDATE (2MG/ML) 20ML VIAL IV ONE ×2 (01:40→03:00)
[2025-03-13] MEDS: MIDAZOLAM DRIP 50 mg/50mL 50 ML IV ONE (01:48)
[2025-03-13] MEDS: NOREPINEPHRINE 8 MG/250ML KIT 250 ML IV ONE (01:48)
[2025-03-13] MEDS: fentaNYL Drip 2500mCg/250mlNS 250 ML IV ONE (02:20)
[2025-03-13] MEDS: fentaNYL Drip 2500mCg/250mlNS 250 ML IV SCH (02:30)
--- NOTE | 2025-03-13 02:42 | DVH ---
EXAM: CT HEAD WITHOUT CONTRAST INDICATION: CODE BLUE TECHNIQUE: CT of the head without intravenous contrast. Radiation Dose Information: CT Dose: CTDI volume is 61.5 mGy. Dose-length product is 1212 mGy*cm The dose indicators for CT are the volume Computed Tomography (CT) Dose Index (CTDIvol) and the Dose Length Product (DLP), and are measured in units of mGy and mGy-cm, respectively. These indicators are not patient dose, but values generated from the CT scanner acquisition factors. The report includes radiation exposure data for exposures received during this examination. COMPARISON: CT STROKE CTH on DOS: 02/19/25 FINDINGS: There is no evidence of acute intracranial hemorrhage, extra-axial collection, mass effect, midline s hift, herniation or hydrocephalus. Several bilateral lacunar infarcts as seen on prior MRI of 2024 The ventricles, sulci and cisterns are age appropriate. Mucosal sinus thickening of the ethmoid air cells and sphenoid sinus . IMPRESSION: 1. No acute intracranial abnormality. Multiple subacute bilateral lacunar infarcts as seen on prior M RI.
--- NOTE | 2025-03-13 02:59 | DVH ---
EXAM: CT CERVICAL WITHOUT CONTRAST INDICATION: CODE BLUE TECHNIQUE: CT of the cervical spine without intravenous contrast. Radiation Dose Information: CT Dose: CTDI volume is 25.9 mGy. Dose-length product is 705.3 mGy*cm The dose indicators for CT are the volume Computed Tomography (CT) Dose Index (CTDIvol) and the Dose Length Product (DLP), and are measured in units of mGy and mGy-cm, respectively. These indicators are not patient dose, but values generated from the CT scanner acquisition factors. The report includes radiation exposure data for exposures received during this examination. COMPARISON: None FINDINGS: No acute fracture or subluxation. Moderate degenerative changes from C4 through C7 with intervertebr al disc space narrowing and endplate osteophytes. There is an endotracheal tube. Debris is noted in t he oropharynx. Visualized portions of the lung apices demonstrate small to moderate right pleural eff usion, small left pleural effusion, and diffuse alveolar airspace opacities. IMPRESSION: 1. No acute cervical spine finding with moderate degenerative change. 2. Incompletely imaged Bilateral pleural effusions with alveolar airspace opacities
[2025-03-13 03:04] LABS: Hematocrit 20.6 % (36.0-46.0); Mean Corpuscular Hemoglobin 27.1 pg (28.0-32.0); Mean Corpuscular Hgb Conc. 31.7 g/dL (32.0-36.0); Mean Corpuscular Volume 85.4 fL (80.0-100.0); Platelet Count (auto) 424 10^3/uL (140-450); Red Blood Cells 2.41 10^6/uL (4.0-5.20); Red Cell Distribution Width 15.7 % (11.8-14.3); White Blood Cell 11.7 10^3/uL (4.4-10.8)
[2025-03-13] MEDS: NOREPINEPHRINE 8 MG/250ML KIT 250 ML IV SCH (03:06)
[2025-03-13 03:09] LABS: Hemoglobin 6.5 g/dL (12.2-16.2)
[2025-03-13 03:11] LABS: Basophils % (manual) 0 (0.0-2.0); Blast Cells 0; Metamyelocytes % 0; Promyelocytes % 0; Reactive Lymphocytes 0
[2025-03-13 03:17] LABS: Alanine Aminotransferase 20 U/L (7-40); Anion Gap 10 (5-15); BUN/Creatinine Ratio 26.4 (10.0-20.0); Carbon Dioxide 22 mmol/L (20-31); Chloride 100 mmol/L (98-107); Magnesium 1.8 mg/dL (1.6-2.6); Potassium 4.3 mmol/L (3.5-5.1)
[2025-03-13 03:18] LABS: Partial Thromboplastin Time 38.6 SEC (24.5-34.5); Prothrombin Time 10.6 sec (9.3-11.8)
[2025-03-13 03:20] LABS: Albumin 2.7 g/dL (3.2-4.8); Alkaline Phosphatase 192 U/L (46-116); Aspartate Aminotransferase 58 U/L (13-40); Bilirubin, Total < 0.2 mg/dL (0.2-1.0); Blood Urea Nitrogen 51 mg/dL (9-23); Calcium 8.5 mg/dL (8.7-10.4); Glucose 169 mg/dL (74-106); Phosphorus 6.1 mg/dL (2.4-5.1); Sodium 132 mmol/L (136-145); Total Protein 5.4 g/dL (5.7-8.2)
--- NOTE | 2025-03-13 03:22 | DVH ---
CHEST RADIOGRAPH Indication: intubation Technique: Single frontal view of the chest was obtained Comparison: XY CHEST XRAY 1 VIEW on DOS: 03/10/25, XY CHEST PORTABLE on DOS: 02/19/25, XY CHEST PORTABL E on DOS: 06/11/24 IMPRESSION: Heart appears normal in size. Endotracheal tube tip is in the right mainstem bronchus, retraction of 6 cm is recommended. New bilateral alveolar airspace opacities, right greater than left. Right PICC line tip in the region of the superior vena cava. No sizable effusion or pneumothorax. Critical Result: line placement Findings discussed with nurse Albarado at 03/13/2025 06:19 AM, and acknowledged receipt and understandin g of the findings. ..
[2025-03-13 04:05] LABS: Band Neutrophils % (manual) 5; Eosinophils % (manual) 1 (0-7); Lymphocytes % (manual) 11 (10.0-50.0); Monocytes % (manual) 1 (0-12); Myelocytes % 1; Platelet Estimate Adequate
[2025-03-13 04:06] LABS: Base Excess -3.6 mmol/L (-2.0-3.0)
[2025-03-13] MEDS: MIDAZOLAM DRIP 50 mg/50mL 50 ML IV SCH (04:38)
--- NOTE | 2025-03-13 04:38 | DVHNC2 ---
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) Indication: Hypotension, CVP monitoring, Volume resuscitation Room prepared for procedure: Yes Computer Trainer performed hand hygien: Yes Maximal sterile barrier precau: Mask/Eye shield, Sterile gown, Cap, Sterlie gloves, Large sterlie drape Skin Preparation: Chlorhexidine gluconate Skin preparation completely dr: Yes Insertion site: Right, Internal jugular Central line catheter type: Aqh-[id number]-trr dialysis Number of lumens: 3 Central line exchanged over a: No Antiseptic ointment applied to: Yes Post Assessment: Chest X-Ray, Proper placement, No Pneumothorax Informed consent obtained: No Risks/benefits/alt described: No UTO Consent emergent insertion Intubation Indication: Respiratory Insufficiency, Airway Protection Pretreated with: Analgesia, Sedation Medicated with: Succinylcholine Intubation Approach: Orotracheal Informed consent obtained: No Risks/benefits/alt described: No UTO Consent emergent intubation, code blue Date of Service: Mar 13, 2025 Billing Provider: MELBA SOFIA Common Visit Codes: PROCEDURE ONLY Procedure Codes: 81449-[id number], [id number] NON-TUNNEL CV CATH MELBA SOFIA Mar 13, 2025 04:38
[2025-03-13] MEDS: cefTRIAXone 1GM/50ML D5W 50 ML IV SCH (04:42)
[2025-03-13] MEDS: CLINDAMYCIN 900MG IV 50 ML IV SCH (05:32)
--- NOTE | 2025-03-13 07:34 | RESUS ---
CODE BLUE ASSESSSMENT History of Events History of Events: 54F presents to the ER w/ no prior Hx associated to the c/c of Gen Weakness. Pt reports that she is unable to lift her legs or arms for very long, feels weak and very lethargic as we;ll. Pt BS was a 137 in triage. PMHx of DM, Anxiety, HTN, GERD and High Lipids. SHx of right BKA. Social Hx of tobacco use, and marijuana use but denies alcohol use. Denies chills, fever, N/V/D, SOB, CP no other associated symptoms, modifiers, recent injuries or sick contacts at this time. Chief Complaint: General Weakness. TONIGHT, PER TURN OUT PT PUT LIGHT ON, SHE WENT TO CHECK AND PT WAS NOT RESPONDING AND HAD BLOOD IN THE SHEETS, A CODE ASSIST WAS CALLED. I ENTER ROOM PT WASWITH AGONAL BREATHING AND THERE WAS NO PULSE. Initial Information Date: Mar 12, 2025 Time: 01:35 Location of Arrest: [place] Arrest Witnessed: Yes CPR started initial time: 01:35 CPR started by whom: Hospital Staff Pre-Hospital Care: ACLS Type of arrest: Cardiac, Respiratory, Adult, Witnessed Spontaneous Respirations: No Pulse Present: No Monitoring: Pulse Oximetry, Apnea, Telemetry Crash Cart Opened and Supplies: Yes Airway Ventilation Breathing at Onset: Agonal O2 Sat by Pulse Oximetry: 0 Oxygen Delivery Method: Ambu-Bag Time of first Assisted Ventila: 01:42 Intubation Size: 8.0 cuffed Intubated by: SOFIA Intubation Attempts: 1 Intubated orally: Yes Intubated Nasaly: No Tube secured at: 26 CO2 indicator used: Yes Confirmation: Auscultation, Exhaled CO2, Chest X-ray Suctioning (Oral/Tracheal): No Circulation Circulation : Time: 01:35 Pulse Rate (adult): 0 Blood Pressure Systolic: 0 Blood Pressure Diastolic: 0 Temperature (Fahrenheit): 97.8 Procedure - IV Procedure - IV : IV Location: Upper Arm Anterior IV Catheter Type: Mid-line IV Placed: In Hospital IV Line Care: Saline Flush Comment PREVIOUSLY PLACED Medications & Response Medications and Responses : Medication Time: 01:36 ADULT Medications Given ADULT: Epinephrine 1 mg, Sodium Bacarbinate 50 meq Route of Administration: IV Heart Rate: 0 EKG Rhythm: PEA Blood Pressure Systolic: 0 Blood Pressure Diastolic: 0 Respiratory Rate: 0 O2 Sat by Pulse Oximetry: 0 EKG Rhythm: PEA Comment PULSE CHECK AT 0137 ROSC Procedure - Almaraz Catheter Comment: ALREADY PLACED PREVIOUSLY Nurses Notes Aleksey Coma Scale Verbal: Confused (4) Aleksey Coma Scale Motor: Obeys Commands (6) Glascow Total: 5 PRIOR TO INTUBATION 3 POST INTUBATION AND SEDATION. Pupil Reaction: Sluggish Bedside Blood Glucose: 179 EKG Rhythm: Sinus Tachycardia Time Code Ended Time Code Ended: 01:37 Post Arrest Status: Ventilated Outcome of code: Successful Code Team Present: BISMARK QUARTER SECTION IRONER, CHINYERE RN , FRANCESCA RN, RICHIE RN, MARIO WINDOWS ADMINISTRATOR, COREY RAMIREZ, CHINYERE MERINO Mar 13, 2025 07:34
--- NOTE | 2025-03-13 09:02 | DVHPN2 ---
Subjective Patient now intubated and sedated. Reviewed: Care Plan, H&P, Labs, Medications, Previous Orders, Radiology, Other (Consultations) Changes from previous H/P or p: Changes General: Per HPI Objective Vitals Vital Signs Date Time Temp Pulse Resp B/P (MAP) Pulse Ox O2 Delivery O2 Flow Rate FiO2 03/13/25 08:00 97.8 76 19 94/59 (71) 100 97.8 03/13/25 07:34 Ambu-Bag 03/13/25 06:31 80 03/12/25 20:00 0 Intake/Output Intake and Output 03/13/25 07:00 Intake Total 2185.0 ml Output Total 2620 ml Balance -435.0 ml Intake Oral 1580 ml IV Total 605.0 ml Output Urine Total 2620 ml Exam Assess patient will sitting in her wheelchair. General Appearance: Alert, Oriented X3, Cooperative, No acute distress HEENT: Atraumatic Lungs: Clear to auscultation, Normal air movement Cardiovascular: Regular rate, Normal S1, Normal S2 Abdomen: Normal bowel sounds, Soft, No tenderness Extremities: No edema, Normal pulses, Other (Less redness and swelling to left lower extremity) Neuro: Normal speech, Other Skin: Wounds (See nurse notes and pictures) Psych/Mental Status: Mental status NL, Mood NL Medications Current Medications Medications Dose Ordered Sig/John Route Start Time Stop Time Status Last Admin Dose Admin Ondansetron HCl 4 mg Q4HP PRN IV 02/19/25 13:45 03/06/25 02:55 4 MG Docusate Sodium 100 mg BIDPRN PRN PO 02/19/25 13:45 03/04/25 17:41 100 MG Acetaminophen 650 mg Q6HP PRN PO 02/19/25 13:45 03/09/25 21:36 650 MG Nitroglycerin 0.4 mg Q5MINP PRN SL 02/19/25 13:45 Diagnostic Test (Pha) 1 strip ACHS 02/19/25 17:00 03/13/25 06:44 1 STRIP Dextrose 50 ml UD PRN IV 02/19/25 15:45 03/06/25 11:34 50 ML Duloxetine HCl 30 mg DAILY PO 02/20/25 10:00 03/12/25 09:06 30 MG Potassium Chloride 100 ml @ 50 mls/hr Q2H IV 02/19/25 23:15 02/20/25 05:14 Cancel Potassium Chloride 100 ml @ 50 mls/hr Q2H IV 02/20/25 07:15 02/20/25 11:14 UNV Lorazepam 1 mg Q8HPRN PRN PO 02/23/25 14:15 02/28/25 21:38 1 MG Nicotine 1 patch DAILY TD 02/23/25 14:48 03/12/25 09:04 1 PATCH Insulin Human Regular ACHS SC 02/28/25 17:00 03/13/25 06:57 3 UNITS Gabapentin 100 mg TID PO 03/02/25 14:00 03/12/25 21:09 100 MG Calcium Acetate 1,334 mg TIDWMEALS PO 03/04/25 12:00 03/12/25 17:31 1,334 MG Ergocalciferol 50,000 unit Q7D PO 03/04/25 11:45 03/04/25 17:41 50,000 UNIT Zirconium Oxide 10 gm TID PO 03/07/25 14:00 Cancel Sodium Bicarbonate 50 ml/ Sodium Chloride 1,050 ml @ 100 mls/hr [id number] IV 03/07/25 11:45 Cancel Zirconium Oxide 10 gm DAILY PO 03/10/25 10:00 03/13/25 09:59 03/12/25 09:07 10 GM Acetaminophen/ Hydrocodone Bitart 1 tab Q6HP PRN PO 03/09/25 13:30 03/12/25 22:01 1 TAB Albuterol 2.5 mg Q6HWA NEB 03/10/25 18:00 03/13/25 06:31 2.5 MG Ipratropium [place] 0.5 mg Q6HWA NEB 03/10/25 18:00 03/13/25 06:31 0.5 MG Hydralazine HCl 10 mg Q6HPRN PRN IV 03/11/25 15:30 Guaifenesin 200 mg Q4HP PRN PO 03/12/25 20:15 03/12/25 22:00 200 MG Norepinephrine Bitartrate 250 ml @ 3.75 mls/hr Q24H IV 03/13/25 02:00 03/13/25 03:06 3.75 MLS/HR Midazolam HCl 50 ml @ 1 mls/hr Q24H IV 03/13/25 02:00 03/13/25 05:59 7 MLS/HR Fentanyl Citrate 250 ml @ 2.5 mls/hr Q24H IV 03/13/25 02:30 03/13/25 02:30 10 MLS/HR Ceftriaxone Sodium 50 ml @ 100 mls/hr Q24H IV 03/13/25 04:00 03/13/25 04:42 100 MLS/HR Clindamycin Phosphate 50 ml @ 50 mls/hr Q8HR IV 03/13/25 06:00 03/13/25 05:32 50 MLS/HR Pantoprazole Sodium 40 mg BID IV 03/13/25 10:00 Laboratory Results Laboratory Tests 03/13/25 02:35 Chemistry Test 03/13/25 02:35 Albumin 2.7 g/dL (3.2-4.8) L Calcium Level 8.5 mg/dL (8.7-10.4) L Magnesium Level 1.8 mg/dL (1.6-2.6) Phosphorus Level 6.1 mg/dL (2.4-5.1) H Total Protein 5.4 g/dL (5.7-8.2) L Coagulation Test 03/13/25 02:35 Prothrombin Time 10.6 sec (9.3-11.8) Prothrombin Time INR 1.00 (0.9-1.15) Activated Partial Thromboplast Time 38.6 SEC (24.5-34.5) H D-Dimer, Quantitative 2.32 mg/L FEU (0.0-0.49) H LFT Test 03/13/25 02:35 Alanine Aminotransferase (ALT) 20 U/L (7-40) Alkaline Phosphatase 192 U/L (46-116) H Aspartate Amino Transferase (AST) 58 U/L (13-40) H Total Bilirubin < 0.2 mg/dL (0.2-1.0) L Urinalysis Test 02/19/25 17:27 03/04/25 05:00 Urine Color Colorless (Yellow) Urine Clarity Clear (Clear) Urine pH 6.5 (5.0-9.0) Urine Specific [place] 1.008 (1.001-1.035) Urine Protein 2+ (Negative) H Urine Ketones 1+ (Negative) H Urine Blood 1+ /uL (Negative) H Urine Nitrite Negative (Negative) Urine Bilirubin Negative (Negative) Urine Urobilinogen Normal mg/dL (Negative) Urine Leukocyte Esterase Negative /uL (Negative) Urine RBC 6 /hpf (0 - 4) Urine Microscopic WBC 2 /HPF (0-5) Urine Squamous Epithelial Cells Few /hpf (<5) Urine Bacteria None seen /hpf (None Seen) Urine Glucose 2+ mg/dL (Normal) H Urine Creatinine 25.51 mg/dL (30.0-125.0) L Urine Protein/Creatinine Ratio 14.00 Urine Sodium 80 mmol/L (40-220) Urine Total Protein 357.1 mg/dL (1-14) H Blood Gas Results Test 03/13/25 03:51 Arterial Blood pH 7.364 (7.350-7.450) FiO2 % 100.0 Microbiology Microbiology Date/Time Source Procedure Growth Status 03/06/25 14:37 Knee Left Gram Stain - Final Complete 03/06/25 14:37 Knee Left Anaerobic Culture - Final Complete 03/06/25 14:37 Aerobic Culture - Final Staphylococcus aureus Complete 03/04/25 13:29 Aspirate Gram Stain - Final Complete 03/04/25 13:29 Body Fluid Culture - Final Staphylococcus aureus Complete 02/19/25 17:27 Urine - [place] Urine Culture - Final Complete 02/19/25 13:14 Blood Blood Culture - Final NO GROWTH AFTER 5 DAYS OF INCUBATION. Complete Labs and/or images reviewed: Labs reviewed by me, Image(s) reviewed by me Assessment/Plan Assessment/Plan Impression: Multiple acute/subacute strokes Left lower extremity cellulitis Rule out left septic knee Hypokalemia Acute kidney injury likely hemodynamically mediated due to vasomotor nephropathy Chronic kidney disease Peripheral vascular disease status post right irwif-ebm-pugn amputation 6 months ago Poorly controlled type 2 diabetes Sepsis Hypertension Mixed hyperlipidemia Polysubstance use disorder Diabetic neuropathy -? Suicidal ideation -septic bursitis with Staphylococcus aureus Plan: -events: Patient had epistaxis yesterday evening. Patient was then found nonresponsive, with code blue called. Patient now on vasopressor therapy, mechanical ventilation, and continue sedation. -NG tube to low intermittent suction -antibiotics: Continue Rocephin and clindamycin -continue with 2 units PRBCs. Lasix in between -stop aspirin and Lovenox. Continue PPI -daily labs, chest x-ray, ABG daily Total time spent with patient discussing and formulating plan of care: 35 minutes. This medical document was created using an electronic medical record system with [employer] dictation system. Although this document has been carefully reviewed, there may still be some phonetic and typographical errors. These areas are purely typographical due to imperfections of the software programs, and do not reflect any compromise in the patient's medical care. Plan discussed with: Patient, Other (RN) My Orders Orders - JUSTIN BONILLA NP Procedure Category Date Status Time Incentive Spirometry ORDERS 03/12/25 Transmitted Q 1hr 09:[address] 03/13/25 Resulted Contrast 01:56 Pantoprazole PHA 03/13/25 In Process (Protonix) 10:00 Basic Metabolic Panel LAB 03/14/25 Verified 05:00 Basic Metabolic Panel LAB 03/15/25 Verified 05:00 Basic Metabolic Panel LAB 03/16/25 Verified 05:00 Chest Portable XY 03/14/25 Logged 05:00 Chest Portable XY 03/15/25 Logged 05:00 Chest Portable XY 03/16/25 Logged 05:00 Abg W/ Co-Ox RT 03/14/25 Logged 05:00 Abg W/ Co-Ox RT 03/15/25 Logged 05:00 Abg W/ Co-Ox RT 03/16/25 Logged 05:00 Albuterol Medneb PHA 03/13/25 Transmitted (Ventolin Medneb) 12:00 Ipratropium Medneb PHA 03/13/25 Transmitted (Atrovent Medneb) 12:00 Furosemide Injection PHA 03/13/25 Transmitted (Lasix Injection) 09:00 Date of Service: Mar 13, 2025 Billing Provider: JUSTIN BONILLA NP Common Visit Codes: [id number] CARE 30-74 MIN JUSTIN BONILLA NP Mar 13, 2025 09:02
--- NOTE | 2025-03-13 09:33 | DVHPN2 ---
Progress Note - Dictate Date Seen: Mar 13, 2025 Medical Necessity Reason Pt with a Central, PICC or Fol: Yes The following are medically ne: Almaraz Catheter Subjective Mr. Kaur is a 54 years old right-handed female with a history of hypertension, diabetes, dyslipidemia, anxiety, GERD, osteo myelitis status post right BKA, she came to the [facility] on 02/19/25 with a chief complaint of general weakness. He was transferred/ICU on I have seen and examined the patient, I have talked to her nurse, and other medical staff, she was intubated, sedated, on pressor drip, nonresponsive to stroke painful stimuli She is receiving the 2nd unit of RBC RN noticed her picking the nose and advised her not to do so (RN note: 03/12/2230: "Patient appeared to have mild blood on tissue and fingers. I saw the patient picking her nose multiple times and I educated the patient and explained to not pick her nose due to it being unsanitary and can be the possible cause of bleeding in the nostrils. She stated she knows. I was also informed from day shift RN about patient picking her nose. ") Later the patient was found to be nonresponsive in bed with blood in the face and around her, respiration distress. RN note 03/13/25 0133: prior to code assist I was putting away wound care camera, W[employer] MAINTENANCE SPECIALIST told me that the patient needed me, I told her okay I will be right there, As I was walking to the room code assist was called due to. Patient had a bloody nose. Suzie housemaid was in there, RN checked pulses and there was none so a code blue was then called. The patient was intubated and transferred to ICU Psychiatry consultation, 02/26/25: 1:1 sitter. Transferred to inpatient psychiatric facility. Cymbalta 30 mg b.i.d. ABG, 03/13/2025: Unremarkable UDS, 02/19/2025: Cannabinoids Plasma alcohol, 02/19/2025: Three Urinalysis, 02/19, : WBC: 2, urine leukocyte esterase WBC/HB/PLT/MCV, 02/20/2025: 21.9/10.9/398/83.1, 03/13/2025: 11.7/6.5/424/85.4 K, 02/19/2025: 1.7, 02/20/2025: 2.1 BUN/CR, 02/20/2025: 33/2.03, 03/13/2025: 51.93 HGB A1c, 06/03/2024: 13.1 Liver function tests, 02/20/2025: Unremarkable TG/HDL/LDL/HDL, 04/11/2024: 180/238/164/43 MAGALIS, 02/21/2025: 1. Technically good study. Sinus rhythm. 2. Left atrial enlargement. 3. Number Valves appear to be structurally normal. 4. Ventricular systolic function is preserved at 60% with normal RV function. 5. Doppler reveals mild TR. No significant mitral or aortic insufficiency. No atrial septal or ventricular septal defects 6. No masses or vegetations discernible. 7. The atrial appendage looks clean, no masses. No atrial or ventricular septal defects as noted. No abnormal shunting. Bubble study was negative 8. The valves appear to be structurally normal. No vegetations or signs of emboli present. Carotid Doppler, 02/20/2025: No hemodynamically significant stenosis noted in the right carotid system. No hemodynamically significant stenosis noted in the left carotid system. CT head, : Small age-indeterminate infarct extending from the right jorge radiata into the right basal ganglia. Further evaluation with MRI brain with diffusion-weighted imaging is recommended. CT head, , No acute intracranial abnormality. Multiple subacute bilateral lacunar infarcts as seen on prior MRI. MRI head, 02/19/2025: 1. There are multiple small foci of acute to subacute infarct in the right jorge radiata and right basal ganglia. There are also multiple small acute to subacute infarcts in the left anteromedial frontal lobe and in the left jorge radiata and left basal ganglia. There is no evidence of acute hemorrhage MRI left foot, 02/22/25: Moderate dorsal subcutaneous edema. No evidence of osteomyelitis. No drainable fluid collection noted. Moderate myositis. vital signs Vital Sign Date Time Temp Pulse Resp B/P (MAP) Pulse Ox O2 Delivery O2 Flow Rate FiO2 03/13/25 08:00 20 100 Mechanical Ventilator+ 100 100 03/13/25 08:00 77 03/13/25 08:00 97.8 94/59 (71) 97.8 03/12/25 20:00 0 Total Intake and Output 03/12/25 03/12/25 03/13/25 15:00 23:00 07:00 Intake Total 200 ml 1740 ml 245.0 ml Output Total 1800 ml 820 ml Balance 200 ml -60 ml -575.0 ml medications Current Medications Medications Dose Ordered Sig/John Route Start Time Stop Time Status Last Admin Dose Admin Ondansetron HCl 4 mg Q4HP PRN IV 02/19/25 13:45 03/06/25 02:55 4 MG Docusate Sodium 100 mg BIDPRN PRN PO 02/19/25 13:45 03/04/25 17:41 100 MG Acetaminophen 650 mg Q6HP PRN PO 02/19/25 13:45 03/09/25 21:36 650 MG Nitroglycerin 0.4 mg Q5MINP PRN SL 02/19/25 13:45 Diagnostic Test (Pha) 1 strip ACHS 02/19/25 17:00 03/13/25 06:44 1 STRIP Dextrose 50 ml UD PRN IV 02/19/25 15:45 03/06/25 11:34 50 ML Duloxetine HCl 30 mg DAILY PO 02/20/25 10:00 03/12/25 09:06 30 MG Potassium Chloride 100 ml @ 50 mls/hr Q2H IV 02/19/25 23:15 02/20/25 05:14 Cancel Potassium Chloride 100 ml @ 50 mls/hr Q2H IV 02/20/25 07:15 02/20/25 11:14 UNV Lorazepam 1 mg Q8HPRN PRN PO 02/23/25 14:15 02/28/25 21:38 1 MG Nicotine 1 patch DAILY TD 02/23/25 14:48 03/12/25 09:04 1 PATCH Insulin Human Regular ACHS SC 02/28/25 17:00 03/13/25 06:57 3 UNITS Gabapentin 100 mg TID PO 03/02/25 14:00 03/12/25 21:09 100 MG Calcium Acetate 1,334 mg TIDWMEALS PO 03/04/25 12:00 03/12/25 17:31 1,334 MG Ergocalciferol 50,000 unit Q7D PO 03/04/25 11:45 4/8/25 17:41 50,000 UNIT Zirconium Oxide 10 gm TID PO 03/07/25 14:00 Cancel Sodium Bicarbonate 50 ml/ Sodium Chloride 1,050 ml @ 100 mls/hr [id number] IV 03/07/25 11:45 Cancel Zirconium Oxide 10 gm DAILY PO 03/10/25 10:00 03/13/25 09:59 03/12/25 09:07 10 GM Acetaminophen/ Hydrocodone Bitart 1 tab Q6HP PRN PO 03/09/25 13:30 03/12/25 22:01 1 TAB Hydralazine HCl 10 mg Q6HPRN PRN IV 03/11/25 15:30 Guaifenesin 200 mg Q4HP PRN PO 03/12/25 20:15 03/12/25 22:00 200 MG Norepinephrine Bitartrate 250 ml @ 3.75 mls/hr Q24H IV 03/13/25 02:00 03/13/25 03:06 3.75 MLS/HR Midazolam HCl 50 ml @ 1 mls/hr Q24H IV 03/13/25 02:00 03/13/25 05:59 7 MLS/HR Fentanyl Citrate 250 ml @ 2.5 mls/hr Q24H IV 03/13/25 02:30 03/13/25 02:30 10 MLS/HR Ceftriaxone Sodium 50 ml @ 100 mls/hr Q24H IV 03/13/25 04:00 03/13/25 04:42 100 MLS/HR Clindamycin Phosphate 50 ml @ 50 mls/hr Q8HR IV 03/13/25 06:00 03/13/25 05:32 50 MLS/HR Pantoprazole Sodium 40 mg BID IV 03/13/25 10:00 Albuterol 2.5 mg Q6HR NEB 03/13/25 12:00 Ipratropium [place] 0.5 mg Q6HR NEB 03/13/25 12:00 objective The patient is well-nourished and well-developed with no distress. The patient is intubated MUSCULOSKELETAL EXAM: Status post right BKA MENTAL STATUS: Subjective CRANIAL NERVES: Pupils are equal, round and reactive, small. There are corneal reflexes and doll's eyes phenomenon. No signs of facial weakness. There are no gagging or coughing reflexes SENSATION: No responses to pain stimuli. MOTOR: Normal tone in the upper and lower extremity. Normal muscle bulk. No fasciculations. No spontaneous movement. REFLEXES: Deep tendon reflexes are symmetrical. No pathological reflexes. CEREBELLAR/COORDINATION: Deferred GAIT/STATION: deferred. laboratory and microbiology Laboratory Tests 03/13/25 02:35 Test 03/13/25 02:35 Range/Units Serum Glucose 169 H 74-106 mg/dL Problem List Acute respiratory failure Excessive nasal bleeding Come Metabolic encephalopathy Hypoxic encephalopathy Toxic encephalopathy General weakness Multiple acute/subacute strokes Status post right BKA Depression Assessment/Plan Monitoring Supportive treatment ICU Stabilize vitals/pressor drip Respiratory support/vent management Oxygen Antibiotics Aspirin 81 mg daily (HOLD) Cymbalta 30 mg b.i.d. DVT prophylaxis/SCD Quit tobacco smoking completely More recommendation per clinical course This medical document was created using an electronic medical record system with [employer] dictation system. Although this document has been carefully reviewed, there may still be some phonetic and typographical errors. These areas are purely typographical due to imperfections of the software programs, and do not reflect any compromise in the patient's medical care. Prognosis guarded Dietary Evaluation Review Comments: 1) Esau 1 pk BID 2) Refer Beading Sawyer on DC 3) Continue current plan of care Expected Outcomes/Goals: Pt will meet >75% estimated needs Fu 3-5 days Plan discussed with: Other Critical Care Time(min): 40 NEELA RUEDA MD Mar 13, 2025 09:33
[2025-03-13] MEDS: PANTOPRAZOLE 40 MG/10 ML VIAL INJ IV SCH (09:37)
[2025-03-13] MEDS: FUROSEMIDE 40 MG/4 ML VIAL IV ONE (09:40)
--- NOTE | 2025-03-13 16:20 | DVHPN2 ---
Progress Note - Dictate Date Seen: Mar 13, 2025 Medical Necessity Reason Pt with a Central, PICC or Fol: Yes The following are medically ne: Almaraz Catheter Subjective Patient was seen and evaluated in follow-up in the ICU.Patient had epistaxis yesterday evening s/p picking nose. At approximately 1:33am a code blue was called due to the patient being found to be unresponsive and pulseless in bed. The patient was intubated for airway protection. WBC 11.7, HGB 6.5, HCT 20.6, D- DIMER 2.32, BUN 51, PREASSEMBLER AND INSPECTOR 1.93, CA 8.5, AST 58. CT head shows no acute intracranial abnormality. Multiple subacute bilateral lacunar infarcts as seen on prior MRI. CT C-spine demonstrated no acute cervical spine finding with moderate degenerative change. Incompletely imaged bilateral pleural effusions with alveolar airspace opacities. Chest x-ray revealed a new bilateral alveolar airspace opacities, right greater than left. vital signs Vital Sign Date Time Temp Pulse Resp B/P (MAP) Pulse Ox O2 Delivery O2 Flow Rate FiO2 03/13/25 10:45 73 20 95/59 (71) 99 03/13/25 10:40 60 03/13/25 10:30 98.8 98.8 03/13/25 10:00 Mechanical Ventilator 03/12/25 20:00 0 Total Intake and Output 03/12/25 03/12/25 03/13/25 15:00 23:00 07:00 Intake Total 200 ml 1740 ml 245.0 ml Output Total 1800 ml 820 ml Balance 200 ml -60 ml -575.0 ml medications Current Medications Medications Dose Ordered Sig/John Route Start Time Stop Time Status Last Admin Dose Admin Ondansetron HCl 4 mg Q4HP PRN IV 02/19/25 13:45 03/06/25 02:55 4 MG Docusate Sodium 100 mg BIDPRN PRN PO 02/19/25 13:45 03/04/25 17:41 100 MG Acetaminophen 650 mg Q6HP PRN PO 02/19/25 13:45 03/09/25 21:36 650 MG Nitroglycerin 0.4 mg Q5MINP PRN SL 02/19/25 13:45 Diagnostic Test (Pha) 1 strip ACHS 02/19/25 17:00 03/13/25 11:28 1 STRIP Dextrose 50 ml UD PRN IV 02/19/25 15:45 03/06/25 11:34 50 ML Duloxetine HCl 30 mg DAILY PO 02/20/25 10:00 03/13/25 09:42 30 MG Potassium Chloride 100 ml @ 50 mls/hr Q2H IV 02/19/25 23:15 02/20/25 05:14 Cancel Potassium Chloride 100 ml @ 50 mls/hr Q2H IV 02/20/25 07:15 02/20/25 11:14 UNV Lorazepam 1 mg Q8HPRN PRN PO 02/23/25 14:15 02/28/25 21:38 1 MG Nicotine 1 patch DAILY TD 02/23/25 14:48 03/12/25 09:04 1 PATCH Insulin Human Regular ACHS SC 02/28/25 17:00 03/13/25 06:57 3 UNITS Gabapentin 100 mg TID PO 03/02/25 14:00 03/12/25 21:09 100 MG Calcium Acetate 1,334 mg TIDWMEALS PO 03/04/25 12:00 03/13/25 11:57 1,334 MG Ergocalciferol 50,000 unit Q7D PO 03/04/25 11:45 03/04/25 17:41 50,000 UNIT Zirconium Oxide 10 gm TID PO 03/07/25 14:00 Cancel Sodium Bicarbonate 50 ml/ Sodium Chloride 1,050 ml @ 100 mls/hr [id number] IV 03/07/25 11:45 Cancel Acetaminophen/ Hydrocodone Bitart 1 tab Q6HP PRN PO 03/09/25 13:30 03/12/25 22:01 1 TAB Hydralazine HCl 10 mg Q6HPRN PRN IV 03/11/25 15:30 Guaifenesin 200 mg Q4HP PRN PO 03/12/25 20:15 03/12/25 22:00 200 MG Norepinephrine Bitartrate 250 ml @ 3.75 mls/hr Q24H IV 03/13/25 02:00 03/13/25 03:06 3.75 MLS/HR Midazolam HCl 50 ml @ 1 mls/hr Q24H IV 03/13/25 02:00 03/13/25 09:31 12 MLS/HR Fentanyl Citrate 250 ml @ 2.5 mls/hr Q24H IV 03/13/25 02:30 03/13/25 02:30 10 MLS/HR Ceftriaxone Sodium 50 ml @ 100 mls/hr Q24H IV 03/13/25 04:00 03/13/25 04:42 100 MLS/HR Clindamycin Phosphate 50 ml @ 50 mls/hr Q8HR IV 03/13/25 06:00 03/13/25 05:32 50 MLS/HR Pantoprazole Sodium 40 mg BID IV 03/13/25 10:00 03/13/25 09:37 40 MG Albuterol 2.5 mg Q6HR NEB 03/13/25 12:00 Ipratropium [place] 0.5 mg Q6HR NEB 03/13/25 12:00 objective GENERAL: Intubated on ventilator. EYES: PERRL, EOMI. Anicteric. HENT: Moist mucous membranes. LUNGS: Decreased breath sounds. CARDIOVASCULAR: Regular rate and rhythm. ABDOMEN: Soft, non-tender and non-distended. EXTREMITIES: No edema. SKIN: Warm, dry. laboratory and microbiology Laboratory Tests 03/13/25 02:35 Test 03/13/25 02:35 Range/Units Serum Glucose 169 H 74-106 mg/dL Problem List Multiple acute/subacute strokes. Hypokalemia. Acute kidney injury. Hypertension, newly diagnosed. Insulin-dependent diabetes mellitus. Status post right BKA. Dyslipidemia. Polysubstance use disorder. Left lower extremity cellulitis. Peripheral vascular disease status post right [id number] amputation 6 months ago. Sepsis. Diabetic neuropathy. Assessment/Plan Continued all current supportive medical care. [place] for pain management. IV antibiotics as ordered. IV Hydralazine for SBP >160. GI prophylactics. Vasopressors for hemodynamic support. Additional plan as per the hospital course. Critical care time of 45 minutes provided to include time spent evaluation of patient at bedside, when appropriate patient/family education for diagnosis, treatment plan, review of pertinent medical information and discussion of care with specialty providers and PCP. Mechanical ventilator parameters, treatment and adjustments have personally been reviewed by me and treatment plan by record changer tester has also been reviewed. Dietary Evaluation Review Comments: 1) Esau 1 pk BID 2) Refer Plate Cutter on DC 3) Continue current plan of care Expected Outcomes/Goals: Pt will meet >75% estimated needs Fu 3-5 days Plan discussed with: Other YANIRA WINN MD Mar 13, 2025 12:15
[2025-03-13] MEDS: IPRATROPIUM BROM 0.5 MG/2.5ML INH SOL NEB SCH (18:15)
[2025-03-13] MEDS: ALBUTEROL SULF 2.5 MG/0.5ML(0.5%) NEB SOLN NEB SCH (18:15)
[2025-03-14] VITALS (108 sets, daily range): BP systolic 93–136; BP diastolic 54–72; PULSE 71–89; RESP 6–24; TEMP 93.2–99.3; O2SAT 94–100
[2025-03-14 05:23] LABS: Basophils # (auto) 0 10 ^3/uL (0-0.2); Basophils % (auto) 0.3 % (0.0-2.0); Eosinophils # (auto) 0.2 10 ^3/uL (0-0.8); Eosinophils % (auto) 2.1 % (0.0-7.0); Hematocrit 26.3 % (36.0-46.0); Hemoglobin 8.7 g/dL (12.2-16.2); Lymphocytes # (auto) 0.9 10 ^3/uL (0.4-5.4); Lymphocytes % (auto) 11.3 % (10.0-50.0); Mean Corpuscular Hgb Conc. 33.1 g/dL (32.0-36.0); Mean Corpuscular Volume 84.5 fL (80.0-100.0); Monocytes # (auto) 0.2 10 ^3/uL (0-1.3); Monocytes % (auto) 1.9 % (0.0-12.0); Neutrophils # (auto) 6.9 10 ^3/uL (1.6-8.6); Neutrophils % (auto) 84.4 % (37.0-80.0); Nucleated Red Blood Cells % 0.2 %; Platelet Count (auto) 301 10^3/uL (140-450); Red Blood Cells 3.11 10^6/uL (4.0-5.20); Red Cell Distribution Width 16.3 % (11.8-14.3); White Blood Cell 8.2 10^3/uL (4.4-10.8)
[2025-03-14 05:25] LABS: Chloride 100 mmol/L (98-107)
[2025-03-14 05:26] LABS: Anion Gap 11 (5-15); Carbon Dioxide 22 mmol/L (20-31); Potassium 3.4 mmol/L (3.5-5.1); Sodium 133 mmol/L (136-145)
[2025-03-14 05:28] LABS: Calcium 8.4 mg/dL (8.7-10.4)
[2025-03-14 05:31] LABS: BUN/Creatinine Ratio 25.5 (10.0-20.0)
[2025-03-14 05:32] LABS: Blood Urea Nitrogen 50 mg/dL (9-23); Glucose 127 mg/dL (74-106)
--- NOTE | 2025-03-14 06:22 | DVH ---
EXAM: XR Chest, 1 View CLINICAL INDICATION: pna TECHNIQUE: Frontal view of the chest. COMPARISON: XY CHEST PORTABLE on DOS: 03/13/25, XY CHEST XRAY 1 VIEW on DOS: 03/10/25, XY CHEST SOFI BLE on DOS: 02/19/25, XY CHEST PORTABLE on DOS: 06/11/24, CHEST PORTABLE on DOS: 10/02/22 FINDINGS: LUNGS AND PLEURAL SPACES: Pulmonary congestion and edema. Pneumonia cannot be excluded. No pneumot horax. HEART: Unremarkable. No cardiomegaly. MEDIASTINUM: Unremarkable. Normal mediastinal contour. BONES/JOINTS: Unremarkable. No acute fracture. TUBES, LINES AND DEVICES: Right internal jugular central venous catheter tip in the superior vena c merline. The endotracheal tube (ETT) is in satisfactory position. Enteric tube tip cannot be seen but i s below the diaphragm. OTHER FINDINGS: . . . IMPRESSION: Pulmonary congestion and edema. Pneumonia cannot be excluded.
[2025-03-14 07:17] LABS: Base Excess -4.2 mmol/L (-2.0-3.0)
[2025-03-14] MEDS: POTASSIUM CHL 20MEQ/50ML 50 ML IV ONE (07:21)
--- NOTE | 2025-03-14 09:20 | DVHPN2 ---
Subjective Intubated and sedated Reviewed: Care Plan, H&P, Labs, Medications, Previous Orders, Radiology, Other (Consultations) Changes from previous H/P or p: No Changes General: Per HPI Objective Vitals Vital Signs Date Time Temp Pulse Resp B/P (MAP) Pulse Ox O2 Delivery O2 Flow Rate FiO2 03/14/25 07:00 96.4 82 15 114/54 (74) 96 96.4 03/14/25 06:25 40 03/14/25 06:00 Mechanical Ventilator+ 03/12/25 20:00 0 Intake/Output Intake and Output 03/14/25 07:00 Intake Total 2057.00 ml Output Total 1400 ml Balance 657.00 ml Intake Oral 180 ml IV Total 977.00 ml Blood Product 600 ml Other 300 ml Output Urine Total 1400 ml Exam Assess patient will sitting in her wheelchair. General Appearance: Alert, Oriented X3, Cooperative, No acute distress HEENT: Atraumatic, PERRLA Lungs: Clear to auscultation, Normal air movement Cardiovascular: Regular rate, Normal S1, Normal S2 Abdomen: Normal bowel sounds, Soft, No tenderness Extremities: No edema, Normal pulses, Other (Less redness and swelling to left lower extremity) Neuro: Normal speech, Other Skin: Wounds (See nurse notes and pictures) Psych/Mental Status: Mental status NL, Mood NL Medications Current Medications Medications Dose Ordered Sig/John Route Start Time Stop Time Status Last Admin Dose Admin Ondansetron HCl 4 mg Q4HP PRN IV 02/19/25 13:45 03/06/25 02:55 4 MG Docusate Sodium 100 mg BIDPRN PRN PO 02/19/25 13:45 03/04/25 17:41 100 MG Acetaminophen 650 mg Q6HP PRN PO 02/19/25 13:45 03/09/25 21:36 650 MG Nitroglycerin 0.4 mg Q5MINP PRN SL 02/19/25 13:45 Diagnostic Test (Pha) 1 strip ACHS 02/19/25 17:00 03/14/25 06:26 1 STRIP Dextrose 50 ml UD PRN IV 02/19/25 15:45 03/06/25 11:34 50 ML Duloxetine HCl 30 mg DAILY PO 02/20/25 10:00 03/13/25 09:42 30 MG Potassium Chloride 100 ml @ 50 mls/hr Q2H IV 02/19/25 23:15 02/20/25 05:14 Cancel Potassium Chloride 100 ml @ 50 mls/hr Q2H IV 02/20/25 07:15 02/20/25 11:14 UNV Lorazepam 1 mg Q8HPRN PRN PO 02/23/25 14:15 02/28/25 21:38 1 MG Nicotine 1 patch DAILY TD 02/23/25 14:48 03/12/25 09:04 1 PATCH Insulin Human Regular ACHS SC 02/28/25 17:00 03/14/25 06:26 2 UNITS Gabapentin 100 mg TID PO 03/02/25 14:00 03/14/25 06:03 100 MG Calcium Acetate 1,334 mg TIDWMEALS PO 03/04/25 12:00 03/14/25 08:51 1,334 MG Ergocalciferol 50,000 unit Q7D PO 03/04/25 11:45 03/04/25 17:41 50,000 UNIT Zirconium Oxide 10 gm TID PO 03/07/25 14:00 Cancel Sodium Bicarbonate 50 ml/ Sodium Chloride 1,050 ml @ 100 mls/hr [id number] IV 03/07/25 11:45 Cancel Acetaminophen/ Hydrocodone Bitart 1 tab Q6HP PRN PO 03/09/25 13:30 03/12/25 22:01 1 TAB Hydralazine HCl 10 mg Q6HPRN PRN IV 03/11/25 15:30 Guaifenesin 200 mg Q4HP PRN PO 03/12/25 20:15 03/12/25 22:00 200 MG Norepinephrine Bitartrate 250 ml @ 3.75 mls/hr Q24H IV 03/13/25 02:00 03/13/25 03:06 3.75 MLS/HR Midazolam HCl 50 ml @ 1 mls/hr Q24H IV 03/13/25 02:00 03/14/25 03:06 8 MLS/HR Fentanyl Citrate 250 ml @ 2.5 mls/hr Q24H IV 03/13/25 02:30 03/14/25 00:20 17.5 MLS/HR Ceftriaxone Sodium 50 ml @ 100 mls/hr Q24H IV 03/13/25 04:00 03/14/25 04:09 100 MLS/HR Clindamycin Phosphate 50 ml @ 50 mls/hr Q8HR IV 03/13/25 06:00 03/14/25 06:25 50 MLS/HR Pantoprazole Sodium 40 mg BID IV 03/13/25 10:00 03/13/25 22:31 40 MG Albuterol 2.5 mg Q6HR NEB 03/13/25 12:00 03/14/25 06:28 2.5 MG Ipratropium [place] 0.5 mg Q6HR NEB 03/13/25 12:00 03/14/25 06:28 0.5 MG Saccharomyces Boulardii 250 mg DAILY PO 03/14/25 10:00 UNV Enteral Nutritional Formula 1,000 ml 30ML/HR GT 03/14/25 08:45 UNV Laboratory Results Laboratory Tests 03/14/25 04:48 Chemistry Test 03/14/25 04:48 Calcium Level 8.4 mg/dL (8.7-10.4) L Magnesium Level 1.7 mg/dL (1.6-2.6) Urinalysis Test 02/19/25 17:27 03/04/25 05:00 Urine Color Colorless (Yellow) Urine Clarity Clear (Clear) Urine pH 6.5 (5.0-9.0) Urine Specific [place] 1.008 (1.001-1.035) Urine Protein 2+ (Negative) H Urine Ketones 1+ (Negative) H Urine Blood 1+ /uL (Negative) H Urine Nitrite Negative (Negative) Urine Bilirubin Negative (Negative) Urine Urobilinogen Normal mg/dL (Negative) Urine Leukocyte Esterase Negative /uL (Negative) Urine RBC 6 /hpf (0 - 4) Urine Microscopic WBC 2 /HPF (0-5) Urine Squamous Epithelial Cells Few /hpf (<5) Urine Bacteria None seen /hpf (None Seen) Urine Glucose 2+ mg/dL (Normal) H Urine Creatinine 25.51 mg/dL (30.0-125.0) L Urine Protein/Creatinine Ratio 14.00 Urine Sodium 80 mmol/L (40-220) Urine Total Protein 357.1 mg/dL (1-14) H Blood Gas Results Test 03/14/25 07:09 Arterial Blood pH 7.291 (7.350-7.450) FiO2 % 40.0 Microbiology Microbiology Date/Time Source Procedure Growth Status 03/06/25 14:37 Knee Left Gram Stain - Final Complete 03/06/25 14:37 Knee Left Anaerobic Culture - Final Complete 03/06/25 14:37 Aerobic Culture - Final Staphylococcus aureus Complete 03/04/25 13:29 Aspirate Gram Stain - Final Complete 03/04/25 13:29 Body Fluid Culture - Final Staphylococcus aureus Complete 02/19/25 17:27 Urine - [place] Urine Culture - Final Complete 02/19/25 13:14 Blood Blood Culture - Final NO GROWTH AFTER 5 DAYS OF INCUBATION. Complete Labs and/or images reviewed: Labs reviewed by me, Image(s) reviewed by me Assessment/Plan Assessment/Plan Impression: Multiple acute/subacute strokes Left lower extremity cellulitis Rule out left septic knee Hypokalemia Acute kidney injury likely hemodynamically mediated due to vasomotor nephropathy Chronic kidney disease Peripheral vascular disease status post right [id number] amputation 6 months ago Poorly controlled type 2 diabetes Sepsis Hypertension Mixed hyperlipidemia Polysubstance use disorder Diabetic neuropathy -? Suicidal ideation -septic bursitis with Staphylococcus aureus -septic shock Plan: -events: H&H stable. Minimal gastric secretions. Patient became hypothermic -start tube feeding with Nepro -continue vasopressor therapy to keep map greater than 65 mmHg -bronchodilators -antibiotics: Continue Rocephin and clindamycin, add Florastor -potassium replacement -continue PPI -repeat labs, chest x-ray, ABG in a.m. Total time spent with patient discussing and formulating plan of care: 35 minutes. This medical document was created using an electronic medical record system with [employer] dictation system. Although this document has been carefully reviewed, there may still be some phonetic and typographical errors. These areas are purely typographical due to imperfections of the software programs, and do not reflect any compromise in the patient's medical care. Plan discussed with: Patient, Other (RN) My Orders Orders - JUSTIN BONILLA NP Procedure Category Date Status Time Communication Order ORDERS 03/13/25 Transmitted 19:09 Florastor (S. PHA 03/14/25 Logged Boulardii) (Florastor) 10:00 Nutritional PHA 03/14/25 Logged Supplements (Nepro 08:45 Complete Blood Count LAB 03/15/25 Verified 05:00 Complete Blood Count LAB 03/16/25 Verified 05:00 Complete Blood Count LAB 03/17/25 Verified 05:00 Date of Service: Mar 14, 2025 Billing Provider: JUSTIN BONILLA NP Common Visit Codes: [id number] CARE 30-74 MIN JUSTIN BONILLA NP Mar 14, 2025 09:20
[2025-03-14] MEDS: FLORASTOR (S. BOULARDII) 250 MG CAP PO SCH (11:30)
--- NOTE | 2025-03-14 13:34 | DVHPN2 ---
Progress Note - Dictate Date Seen: Mar 14, 2025 Medical Necessity Reason Pt with a Central, PICC or Fol: Yes The following are medically ne: Almaraz Catheter Subjective Mr. Kaur is a 54 years old right-handed female with a history of hypertension, diabetes, dyslipidemia, anxiety, GERD, osteo myelitis status post right BKA, she came to the [facility] on 02/19/25 with a chief complaint of general weakness. He was transferred/ICU on for ALOC, nasal bleeding and intubation I have seen and examined the patient, I have talked to her nurse, and other medical staff, she is intubated, sedated, on pressor drip, nonresponsive to strong painful stimuli Psychiatry consultation, 02/26/25: 1:1 sitter. Transferred to inpatient psychiatric facility. Cymbalta 30 mg b.i.d. Fentanyl 150 mcg/hour, Versed 8 mg/hour, levo 2 mcg/minute, FiO2: 40% ABG, 03/13/2025: Unremarkable UDS, 02/19/2025: Cannabinoids Plasma alcohol, 02/19/2025: Three Urinalysis, 02/19, : WBC: 2, urine leukocyte esterase WBC/HB/PLT/MCV, 02/20/2025: 21.9/10.9/398/83.1, 03/13/2025: 11.7/6.5/424/85.4 K, 02/19/2025: 1.7, 02/20/2025: 2.1 BUN/CR, 02/20/2025: 33/2.03, 03/13/2025: 51.93 HGB A1c, 06/03/2024: 13.1 Liver function tests, 02/20/2025: Unremarkable TG/HDL/LDL/HDL, 04/11/2024: 180/238/164/43 MAGALIS, 02/21/2025: 1. Technically good study. Sinus rhythm. 2. Left atrial enlargement. 3. Number Valves appear to be structurally normal. 4. Ventricular systolic function is preserved at 60% with normal RV function. 5. Doppler reveals mild TR. No significant mitral or aortic insufficiency. No atrial septal or ventricular septal defects 6. No masses or vegetations discernible. 7. The atrial appendage looks clean, no masses. No atrial or ventricular septal defects as noted. No abnormal shunting. Bubble study was negative 8. The valves appear to be structurally normal. No vegetations or signs of emboli present. Carotid Doppler, 02/20/2025: No hemodynamically significant stenosis noted in the right carotid system. No hemodynamically significant stenosis noted in the left carotid system. CT head, : Small age-indeterminate infarct extending from the right jorge radiata into the right basal ganglia. Further evaluation with MRI brain with diffusion-weighted imaging is recommended. CT head, , No acute intracranial abnormality. Multiple subacute bilateral lacunar infarcts as seen on prior MRI. MRI head, 02/19/2025: 1. There are multiple small foci of acute to subacute infarct in the right jorge radiata and right basal ganglia. There are also multiple small acute to subacute infarcts in the left anteromedial frontal lobe and in the left jorge radiata and left basal ganglia. There is no evidence of acute hemorrhage MRI left foot, 02/22/25: Moderate dorsal subcutaneous edema. No evidence of osteomyelitis. No drainable fluid collection noted. Moderate myositis. vital signs Vital Sign Date Time Temp Pulse Resp B/P (MAP) Pulse Ox O2 Delivery O2 Flow Rate FiO2 03/14/25 12:00 82 03/14/25 11:54 20 97 Mechanical Ventilator+ 40 40 03/14/25 11:45 113/66 (82) 03/14/25 08:00 98.1 98.1 03/12/25 20:00 0 Total Intake and Output 03/13/25 03/13/25 03/14/25 15:00 23:00 07:00 Intake Total 1229.0 ml 477.25 ml 377.50 ml Output Total 900 ml 500 ml Balance 1229.0 ml -422.75 ml -122.50 ml medications Current Medications Medications Dose Ordered Sig/John Route Start Time Stop Time Status Last Admin Dose Admin Ondansetron HCl 4 mg Q4HP PRN IV 02/19/25 13:45 03/06/25 02:55 4 MG Docusate Sodium 100 mg BIDPRN PRN PO 02/19/25 13:45 03/04/25 17:41 100 MG Acetaminophen 650 mg Q6HP PRN PO 02/19/25 13:45 03/09/25 21:36 650 MG Nitroglycerin 0.4 mg Q5MINP PRN SL 02/19/25 13:45 Diagnostic Test (Pha) 1 strip ACHS 02/19/25 17:00 03/14/25 11:32 1 STRIP Dextrose 50 ml UD PRN IV 02/19/25 15:45 03/06/25 11:34 50 ML Duloxetine HCl 30 mg DAILY PO 02/20/25 10:00 03/13/25 09:42 30 MG Potassium Chloride 100 ml @ 50 mls/hr Q2H IV 02/19/25 23:15 02/20/25 05:14 Cancel Potassium Chloride 100 ml @ 50 mls/hr Q2H IV 02/20/25 07:15 02/20/25 11:14 UNV Lorazepam 1 mg Q8HPRN PRN PO 02/23/25 14:15 02/28/25 21:38 1 MG Insulin Human Regular ACHS SC 02/28/25 17:00 03/14/25 06:26 2 UNITS Gabapentin 100 mg TID PO 03/02/25 14:00 03/14/25 06:03 100 MG Calcium Acetate 1,334 mg TIDWMEALS PO 03/04/25 12:00 03/14/25 11:27 1,334 MG Ergocalciferol 50,000 unit Q7D PO 03/04/25 11:45 03/04/25 17:41 50,000 UNIT Zirconium Oxide 10 gm TID PO 03/07/25 14:00 Cancel Sodium Bicarbonate 50 ml/ Sodium Chloride 1,050 ml @ 100 mls/hr [id number] IV 03/07/25 11:45 Cancel Acetaminophen/ Hydrocodone Bitart 1 tab Q6HP PRN PO 03/09/25 13:30 03/12/25 22:01 1 TAB Hydralazine HCl 10 mg Q6HPRN PRN IV 03/11/25 15:30 Guaifenesin 200 mg Q4HP PRN PO 03/12/25 20:15 03/12/25 22:00 200 MG Norepinephrine Bitartrate 250 ml @ 3.75 mls/hr Q24H IV 03/13/25 02:00 03/13/25 03:06 3.75 MLS/HR Midazolam HCl 50 ml @ 1 mls/hr Q24H IV 03/13/25 02:00 03/14/25 09:33 8 MLS/HR Fentanyl Citrate 250 ml @ 2.5 mls/hr Q24H IV 03/13/25 02:30 03/14/25 00:20 17.5 MLS/HR Ceftriaxone Sodium 50 ml @ 100 mls/hr Q24H IV 03/13/25 04:00 03/14/25 04:09 100 MLS/HR Clindamycin Phosphate 50 ml @ 50 mls/hr Q8HR IV 03/13/25 06:00 03/14/25 06:25 50 MLS/HR Pantoprazole Sodium 40 mg BID IV 03/13/25 10:00 03/14/25 09:34 40 MG Albuterol 2.5 mg Q6HR NEB 03/13/25 12:00 03/14/25 11:36 2.5 MG Ipratropium [place] 0.5 mg Q6HR NEB 03/13/25 12:00 03/14/25 11:36 0.5 MG Saccharomyces Boulardii 250 mg DAILY PO 03/14/25 10:00 03/14/25 11:30 250 MG Enteral Nutritional Formula 1,000 ml 30ML/HR GT 03/14/25 08:45 objective The patient is well-nourished and well-developed with no distress. The patient is intubated MUSCULOSKELETAL EXAM: Status post right BKA MENTAL STATUS: Subjective CRANIAL NERVES: Pupils are equal, round and reactive, small. There are corneal reflexes and doll's eyes phenomenon. No signs of facial weakness. There are no gagging or coughing reflexes SENSATION: No responses to pain stimuli. MOTOR: Normal tone in the upper and lower extremity. Normal muscle bulk. No fasciculations. No spontaneous movement. REFLEXES: Deep tendon reflexes are symmetrical. No pathological reflexes. CEREBELLAR/COORDINATION: Deferred GAIT/STATION: deferred. laboratory and microbiology Laboratory Tests 03/14/25 04:48 Test 03/14/25 04:48 Range/Units Serum Glucose 127 H 74-106 mg/dL Problem List Acute respiratory failure Excessive nasal bleeding Come Metabolic encephalopathy Hypoxic encephalopathy Toxic encephalopathy General weakness Multiple acute/subacute strokes Status post right BKA Depression Assessment/Plan Monitoring Supportive treatment ICU Stabilize vitals/pressor drip Respiratory support/vent management Oxygen Antibiotics Aspirin 81 mg daily (HOLD) Cymbalta 30 mg b.i.d. DVT prophylaxis/SCD Quit tobacco smoking completely More recommendation per clinical course This medical document was created using an electronic medical record system with [employer] dictation system. Although this document has been carefully reviewed, there may still be some phonetic and typographical errors. These areas are purely typographical due to imperfections of the software programs, and do not reflect any compromise in the patient's medical care. Prognosis guarded Dietary Evaluation Review Comments: 1) Esau 1 pk BID 2) Refer Asphalt Spreader Operator on DC 3) Continue current plan of care Expected Outcomes/Goals: Pt will meet >75% estimated needs Fu 3-5 days Plan discussed with: Other Critical Care Time(min): 30 NEELA RUEDA MD Mar 14, 2025 13:34
--- NOTE | 2025-03-14 23:10 | DVHPN2 ---
Progress Note - Dictate Date Seen: Mar 14, 2025 Medical Necessity Reason Pt with a Central, PICC or Fol: Yes The following are medically ne: Almaraz Catheter Subjective Patient was seen and evaluated in follow-up in the ICU. Patient is intubated and sedated on ventilator. 40% FiO2. HGB 8.7, HCT 26.3, NA 133, K 3.4, BUN 50, TOOL MAKER 1.96, CA 8.4. Chest x-ray showed pulmonary congestion and edema. Pneumonia cannot be excluded. vital signs Vital Sign Date Time Temp Pulse Resp B/P (MAP) Pulse Ox O2 Delivery O2 Flow Rate FiO2 03/14/25 11:54 20 97 Mechanical Ventilator+ 40 40 03/14/25 11:45 81 113/66 (82) 03/14/25 08:00 98.1 98.1 03/12/25 20:00 0 Total Intake and Output 03/13/25 03/13/25 03/14/25 15:00 23:00 07:00 Intake Total 1229.0 ml 477.25 ml 377.50 ml Output Total 900 ml 500 ml Balance 1229.0 ml -422.75 ml -122.50 ml medications Current Medications Medications Dose Ordered Sig/John Route Start Time Stop Time Status Last Admin Dose Admin Ondansetron HCl 4 mg Q4HP PRN IV 02/19/25 13:45 03/06/25 02:55 4 MG Docusate Sodium 100 mg BIDPRN PRN PO 02/19/25 13:45 03/04/25 17:41 100 MG Acetaminophen 650 mg Q6HP PRN PO 02/19/25 13:45 03/09/25 21:36 650 MG Nitroglycerin 0.4 mg Q5MINP PRN SL 02/19/25 13:45 Diagnostic Test (Pha) 1 strip ACHS 02/19/25 17:00 03/14/25 11:32 1 STRIP Dextrose 50 ml UD PRN IV 02/19/25 15:45 03/06/25 11:34 50 ML Duloxetine HCl 30 mg DAILY PO 02/20/25 10:00 03/13/25 09:42 30 MG Potassium Chloride 100 ml @ 50 mls/hr Q2H IV 02/19/25 23:15 02/20/25 05:14 Cancel Potassium Chloride 100 ml @ 50 mls/hr Q2H IV 02/20/25 07:15 02/20/25 11:14 UNV Lorazepam 1 mg Q8HPRN PRN PO 02/23/25 14:15 02/28/25 21:38 1 MG Insulin Human Regular ACHS SC 02/28/25 17:00 03/14/25 06:26 2 UNITS Gabapentin 100 mg TID PO 03/02/25 14:00 03/14/25 06:03 100 MG Calcium Acetate 1,334 mg TIDWMEALS PO 03/04/25 12:00 03/14/25 11:27 1,334 MG Ergocalciferol 50,000 unit Q7D PO 03/04/25 11:45 03/04/25 17:41 50,000 UNIT Zirconium Oxide 10 gm TID PO 03/07/25 14:00 Cancel Sodium Bicarbonate 50 ml/ Sodium Chloride 1,050 ml @ 100 mls/hr [id number] IV 03/07/25 11:45 Cancel Acetaminophen/ Hydrocodone Bitart 1 tab Q6HP PRN PO 03/09/25 13:30 03/12/25 22:01 1 TAB Hydralazine HCl 10 mg Q6HPRN PRN IV 03/11/25 15:30 Guaifenesin 200 mg Q4HP PRN PO 03/12/25 20:15 03/12/25 22:00 200 MG Norepinephrine Bitartrate 250 ml @ 3.75 mls/hr Q24H IV 03/13/25 02:00 03/13/25 03:06 3.75 MLS/HR Midazolam HCl 50 ml @ 1 mls/hr Q24H IV 03/13/25 02:00 03/14/25 09:33 8 MLS/HR Fentanyl Citrate 250 ml @ 2.5 mls/hr Q24H IV 03/13/25 02:30 03/14/25 00:20 17.5 MLS/HR Ceftriaxone Sodium 50 ml @ 100 mls/hr Q24H IV 03/13/25 04:00 03/14/25 04:09 100 MLS/HR Clindamycin Phosphate 50 ml @ 50 mls/hr Q8HR IV 03/13/25 06:00 03/14/25 06:25 50 MLS/HR Pantoprazole Sodium 40 mg BID IV 03/13/25 10:00 03/14/25 09:34 40 MG Albuterol 2.5 mg Q6HR NEB 03/13/25 12:00 03/14/25 11:36 2.5 MG Ipratropium [place] 0.5 mg Q6HR NEB 03/13/25 12:00 03/14/25 11:36 0.5 MG Saccharomyces Razaulardii 250 mg DAILY PO 03/14/25 10:00 03/14/25 11:30 250 MG Enteral Nutritional Formula 1,000 ml 30ML/HR GT 03/14/25 08:45 objective GENERAL: Intubated on ventilator. EYES: PERRL, EOMI. Anicteric. HENT: Moist mucous membranes. LUNGS: Decreased breath sounds. CARDIOVASCULAR: Regular rate and rhythm. ABDOMEN: Soft, non-tender and non-distended. EXTREMITIES: No edema. SKIN: Warm, dry. laboratory and microbiology Laboratory Tests 03/14/25 04:48 Test 03/14/25 04:48 Range/Units Serum Glucose 127 H 74-106 mg/dL Problem List Multiple acute/subacute strokes. Hypokalemia. Acute kidney injury. Hypertension, newly diagnosed. Insulin-dependent diabetes mellitus. Status post right BKA. Dyslipidemia. Polysubstance use disorder. Left lower extremity cellulitis. Peripheral vascular disease status post right [id number] amputation 6 months ago. Sepsis. Diabetic neuropathy. Assessment/Plan Continued all current supportive medical care. [place] for pain management. IV antibiotics as ordered. IV Hydralazine for SBP >160. GI prophylactics. Vasopressors for hemodynamic support. Additional plan as per the hospital course. Critical care time of 45 minutes provided to include time spent evaluation of patient at bedside, when appropriate patient/family education for diagnosis, treatment plan, review of pertinent medical information and discussion of care with specialty providers and PCP. Mechanical ventilator parameters, treatment and adjustments have personally been reviewed by me and treatment plan by dental office receptionist has also been reviewed. Dietary Evaluation Review Comments: 1) Esau 1 pk BID 2) Refer Sole Stapler Welt on DC 3) Continue current plan of care Expected Outcomes/Goals: Pt will meet >75% estimated needs Fu 3-5 days Plan discussed with: Other YANIRA WINN MD Mar 14, 2025 12:17
[2025-03-15] VITALS (106 sets, daily range): BP systolic 86–128; BP diastolic 42–69; PULSE 77–96; RESP 11–24; TEMP 96.6–99.9; O2SAT 95–100
[2025-03-15 05:03] LABS: Basophils # (auto) 0 10 ^3/uL (0-0.2); Basophils % (auto) 0.3 % (0.0-2.0); Eosinophils # (auto) 0.2 10 ^3/uL (0-0.8); Hematocrit 25.1 % (36.0-46.0); Hemoglobin 8.4 g/dL (12.2-16.2); Lymphocytes # (auto) 0.9 10 ^3/uL (0.4-5.4); Lymphocytes % (auto) 9.9 % (10.0-50.0); Mean Corpuscular Hgb Conc. 33.5 g/dL (32.0-36.0); Mean Corpuscular Volume 83.7 fL (80.0-100.0); Monocytes # (auto) 0.2 10 ^3/uL (0-1.3); Monocytes % (auto) 2.7 % (0.0-12.0); Neutrophils # (auto) 7.3 10 ^3/uL (1.6-8.6); Neutrophils % (auto) 85.1 % (37.0-80.0); Nucleated Red Blood Cells % 0.2 %; Platelet Count (auto) 301 10^3/uL (140-450); Red Cell Distribution Width 16.5 % (11.8-14.3); White Blood Cell 8.6 10^3/uL (4.4-10.8)
[2025-03-15 05:24] LABS: Carbon Dioxide 23 mmol/L (20-31)
[2025-03-15 05:30] LABS: BUN/Creatinine Ratio 24.2 (10.0-20.0); Glucose 97 mg/dL (74-106)
[2025-03-15 05:32] LABS: Blood Urea Nitrogen 50 mg/dL (9-23); Calcium 8.6 mg/dL (8.7-10.4)
[2025-03-15 05:39] LABS: Anion Gap 9 (5-15); Chloride 103 mmol/L (98-107); Potassium 3.8 mmol/L (3.5-5.1)
[2025-03-15 05:40] LABS: Sodium 135 mmol/L (136-145)
--- NOTE | 2025-03-15 06:15 | DVH ---
CHEST RADIOGRAPH Indication: pna Technique: Single frontal view of the chest was obtained Comparison: XY CHEST PORTABLE on DOS: 03/14/25, XY CHEST PORTABLE on DOS: 03/13/25, XY CHEST XRAY 1 VIE W on DOS: 03/10/25 IMPRESSION: Heart appears normal in size. Endotracheal tube, enteric tube, and right IJ catheter tip appear stabl e and satisfactory position. Diffuse bilateral patchy alveolar opacities appear similar. No sizable e ffusion or pneumothorax.
[2025-03-15 06:56] LABS: Base Excess -7.4 mmol/L (-2.0-3.0)
--- NOTE | 2025-03-15 19:46 | DVHPN2 ---
Progress Note - Dictate Date Seen: Mar 15, 2025 Medical Necessity Reason Pt with a Central, PICC or Fol: Yes The following are medically ne: Almaraz Catheter Subjective Patient was seen and evaluated in follow up in the ICU. Patient is intubated and sedated on ventilator. 35% FiO2. HGB 8.4, HCT 25.1, BUN 50, MANAGER CRISIS 2.07, CA 8.6. Chest x-ray shows diffuse bilateral patchy alveolar opacities appear similar. No sizable effusion or pneumothorax. vital signs Vital Sign Date Time Temp Pulse Resp B/P (MAP) Pulse Ox O2 Delivery O2 Flow Rate FiO2 03/15/25 12:00 87 03/15/25 12:00 35 03/15/25 12:00 20 95 Mechanical Ventilator+ 03/15/25 11:35 98/50 (66) 03/15/25 08:00 97.9 97.9 Total Intake and Output 03/14/25 03/14/25 03/15/25 15:00 23:00 07:00 Intake Total 287.25 ml 364.00 ml 572.25 ml Output Total 900 ml 1750 ml Balance 287.25 ml -536.00 ml -1177.75 ml medications Current Medications Medications Dose Ordered Sig/John Route Start Time Stop Time Status Last Admin Dose Admin Ondansetron HCl 4 mg Q4HP PRN IV 02/19/25 13:45 03/06/25 02:55 4 MG Docusate Sodium 100 mg BIDPRN PRN PO 02/19/25 13:45 03/04/25 17:41 100 MG Acetaminophen 650 mg Q6HP PRN PO 02/19/25 13:45 03/09/25 21:36 650 MG Nitroglycerin 0.4 mg Q5MINP PRN SL 02/19/25 13:45 Diagnostic Test (Pha) 1 strip ACHS 02/19/25 17:00 03/15/25 11:30 1 STRIP Dextrose 50 ml UD PRN IV 02/19/25 15:45 03/14/25 21:04 50 ML Duloxetine HCl 30 mg DAILY PO 02/20/25 10:00 03/15/25 09:25 30 MG Potassium Chloride 100 ml @ 50 mls/hr Q2H IV 02/19/25 23:15 02/20/25 05:14 Cancel Potassium Chloride 100 ml @ 50 mls/hr Q2H IV 02/20/25 07:15 02/20/25 11:14 UNV Lorazepam 1 mg Q8HPRN PRN PO 02/23/25 14:15 02/28/25 21:38 1 MG Insulin Human Regular ACHS SC 02/28/25 17:00 03/14/25 06:26 2 UNITS Gabapentin 100 mg TID PO 03/02/25 14:00 03/15/25 05:49 100 MG Calcium Acetate 1,334 mg TIDWMEALS PO 03/04/25 12:00 03/15/25 13:12 1,334 MG Ergocalciferol 50,000 unit Q7D PO 03/04/25 11:45 03/04/25 17:41 50,000 UNIT Zirconium Oxide 10 gm TID PO 03/07/25 14:00 Cancel Sodium Bicarbonate 50 ml/ Sodium Chloride 1,050 ml @ 100 mls/hr [id number] IV 03/07/25 11:45 Cancel Acetaminophen/ Hydrocodone Bitart 1 tab Q6HP PRN PO 03/09/25 13:30 03/12/25 22:01 1 TAB Hydralazine HCl 10 mg Q6HPRN PRN IV 03/11/25 15:30 Guaifenesin 200 mg Q4HP PRN PO 03/12/25 20:15 03/12/25 22:00 200 MG Norepinephrine Bitartrate 250 ml @ 3.75 mls/hr Q24H IV 03/13/25 02:00 03/14/25 13:44 3.75 MLS/HR Midazolam HCl 50 ml @ 1 mls/hr Q24H IV 03/13/25 02:00 03/15/25 09:25 8 MLS/HR Fentanyl Citrate 250 ml @ 2.5 mls/hr Q24H IV 03/13/25 02:30 03/15/25 09:30 15 MLS/HR Ceftriaxone Sodium 50 ml @ 100 mls/hr Q24H IV 03/13/25 04:00 03/15/25 03:46 100 MLS/HR Clindamycin Phosphate 50 ml @ 50 mls/hr Q8HR IV 03/13/25 06:00 03/15/25 05:49 50 MLS/HR Pantoprazole Sodium 40 mg BID IV 03/13/25 10:00 03/15/25 09:25 40 MG Albuterol 2.5 mg Q6HR NEB 03/13/25 12:00 03/15/25 11:34 2.5 MG Ipratropium [place] 0.5 mg Q6HR NEB 03/13/25 12:00 03/15/25 11:34 0.5 MG Saccharomyces Razaulardii 250 mg DAILY PO 03/14/25 10:00 03/15/25 09:25 250 MG Enteral Nutritional Formula 1,000 ml 30ML/HR GT 03/14/25 08:45 objective GENERAL: Intubated on ventilator. EYES: PERRL, EOMI. Anicteric. HENT: Moist mucous membranes. LUNGS: Decreased breath sounds. CARDIOVASCULAR: Regular rate and rhythm. ABDOMEN: Soft, non-tender and non-distended. EXTREMITIES: No edema. SKIN: Warm, dry. laboratory and microbiology Laboratory Tests 03/15/25 04:24 Test 03/15/25 04:24 Range/Units Serum Glucose 97 74-106 mg/dL Problem List Multiple acute/subacute strokes. Hypokalemia. Acute kidney injury. Hypertension, newly diagnosed. Insulin-dependent diabetes mellitus. Status post right BKA. Dyslipidemia. Polysubstance use disorder. Left lower extremity cellulitis. Peripheral vascular disease status post right [id number] amputation 6 months ago. Sepsis. Diabetic neuropathy. Assessment/Plan Continued all current supportive medical care. [place] for pain management. IV antibiotics as ordered. IV Hydralazine for SBP >160. GI prophylactics. Vasopressors for hemodynamic support. Additional plan as per the hospital course. Critical care time of 45 minutes provided to include time spent evaluation of patient at bedside, when appropriate patient/family education for diagnosis, treatment plan, review of pertinent medical information and discussion of care with specialty providers and PCP. Mechanical ventilator parameters, treatment and adjustments have personally been reviewed by me and treatment plan by cab driver has also been reviewed. Dietary Evaluation Review Comments: 1) Esau 1 pk BID 2) Refer Doctor Osteopathic on DC 3) Continue current plan of care Expected Outcomes/Goals: Pt will meet >75% estimated needs Fu 3-5 days Plan discussed with: Other YANIRA WINN MD Mar 15, 2025 13:16
--- NOTE | 2025-03-15 22:11 | DVHINCON2 ---
Date of service: Mar 15, 2025 Referring Physician Scooby Alanis NP Reason for Consultation Acute hypoxic respiratory failure requiring mechanical ventilator History of Present Illness A 54-year-old woman with multiple medical problems including right BKA, diabetes, HTN, hyperlipidemia, depression, and anxiety who initially presented to ED on 02/19/25 with c/o generalized weakness, possible CVA. Pt reported being unable to lift her legs or arms for very long, feeling weak and very lethargic. BS was 137 in triage. Patient was evaluated via telepsychiatry. She was admitted for further care. Pulmonary consultation is requested for evaluation and management of acute hypoxic respiratory failure requiring mechanical ventilator. Review of Systems: 14-point review of systems negative unless otherwise noted above. Past Medical History: DM, Anxiety, HTN, GERD and High Lipids. Past Surgical History: Right BKA. Medications: Reviewed. Allergies: No known drug allergies. Family History: No family history of premature CAD. No family history of lung disorders. Social History: Nonsmoker. No alcohol use. Reports use of marijuana usually twice daily to help with pain. She denies other substance use. Family History: Cancer Aunt Family history: Diabetes mellitus Grandfather Allergies: Coded Allergies: NO KNOWN ALLERGIES (Unverified , 01/27/21) Home Meds Active Scripts Buspirone Hcl (Buspirone Hcl) 5 Mg Tab, 1 TAB PO BID, #60 TAB 2 Refills Prov:DOMENICA SHAH MD 04/14/24 Pantoprazole Sodium Sesquihydr (Protonix) 40 Mg Tab, 40 MG PO DAILY for 30 Days, #30 TAB Prov:LEONARDO JACKSON MD 04/11/22 Olanzapine (OLANZAPINE) 5 Mg Tab, 5 MG PO DAILY for 30 Days, #30 TAB Prov:JOAQUIN ISAAC MD 05/09/20 Reported Medications Duloxetine HCl (Duloxetine HCl) 30 Mg Cap, 1 CAP PO DAILY 02/19/25 Atorvastatin Calcium (ATORVASTATIN CALCIUM) 40 Mg Tab, 1 TAB PO DAILY 02/19/25 Gemfibrozil (Gemfibrozil) 600 Mg Tab, 1 TAB PO BIDWM 02/19/25 Lamotrigine (Lamotrigine) 25 Mg Tab, 1 TAB PO DAILY 02/19/25 Hydroxyzine Hcl (Hydroxyzine Hcl) 25 Mg Tab, 1 TAB PO DAILY 02/19/25 Empagliflozin (Jardiance) 10 Mg Tab, 1 TAB PO DAILY 06/05/24 Ondansetron HCl (Ondansetron) 4 Mg Tab, 1 TAB PO BID PRN 06/05/24 Pioglitazone Hydrochloride (ACTOS TABLET) 30 Mg Tb, 1 TAB PO DAILY 06/05/24 Insulin Lispro (Insulin Lispro Kwikpen) 100 Unit/Ml Inj, UNITS SC 06/05/24 Insulin Glargine (Basaglar Kwikpen) 100 Unit/Ml Inj, UNITS SC 06/05/24 Tramadol Hcl (Tramadol Hcl) 50 Mg Tab, 1 TAB PO Q6HR 04/06/22 Vital Signs Vital Signs Date Time Temp Pulse Resp B/P (MAP) Pulse Ox O2 Delivery O2 Flow Rate FiO2 03/15/25 20:08 85 20 120/59 (79) 95 35 03/15/25 20:00 Mechanical Ventilator+ 03/15/25 20:00 98.4 98.4 Physical Exam Gen.: Patient lying in bed in medical ICU. Sedated, intubated on mechanical ventilator. Head: Normocephalic, atraumatic. Eyes: PERRLA. Ears: Normal external anatomy. Throat: Endotracheal tube and orogastric tube in place. Neck: Supple, trachea midline. Chest: Transmitted breath sounds bilaterally. Decreased air entry bilaterally. No wheezing. Bibasilar crackles. Cardiovascular: Positive S1, positive S2. Regular rate and rhythm. Abdomen: Positive bowel sounds in all 4 quadrants. Soft, nontender, nondistended . : Almaraz in place. Normal external genitalia. Rectal: Deferred. Skin: Warm, dry. Intact. Extremities: 2+ radial pulses bilaterally. No lower extremity edema. Status post right BKA. Neuro: Sedated. Labs/Diagnostic Data Labs Test 03/15/25 21:15 03/15/25 06:50 03/15/25 04:24 03/14/25 04:48 Range/Units POC Glucose 125 H 70-106 mg/dl Blood Gas Specimen Type Arterial Blood Gas Sample Site Right radial Blood Gas Patient Temperature 37.0 Arterial Blood Date Drawn [id number] Arterial Blood pH 7.253 L 7.350-7.450 Arterial Blood Partial Pressure CO2 45.0 32.0-45.0 mmHg Arterial Blood Partial Pressure O2 72.2 L 83.0-108.0 mmHg Arterial Blood HCO3 19.4 L 21.0-28.0 mmol/L Arterial Blood Oxygen Saturation 91.0 L 94.0-98.0 % Arterial Blood Base Excess -7.4 L -2.0-3.0 mmol/L Arterial Blood Oxyhemoglobin 89.9 L 94.0-98.0 % Arterial Blood Carboxyhemoglobin 0.7 0.5-1.5 % Arterial Blood Methemoglobin 0.5 0.0-1.5 % Fermin Test Modified Blood Gas Total Hemoglobin 9.80 L 12.0-16.0 g/dL Blood Gas Set Respiration Rate 20.0 Blood Gas Modality Vent - ac FiO2 % 40.0 Blood Gas Tidal Volume 400.0 Blood Gas PEEP or CPAP 5.0 White Blood Count 8.6 4.4-10.8 10^3/uL Red Blood Count 3.00 L 4.0-5.20 10^6/uL Hemoglobin 8.4 L 12.2-16.2 g/dL Hematocrit 25.1 L 36.0-46.0 % Mean Corpuscular Volume 83.7 80.0-100.0 fL Mean Corpuscular Hemoglobin 28.0 28.0-32.0 pg Mean Corpuscular Hemoglobin Concent 33.5 32.0-36.0 g/dL Red Cell Distribution Width 16.5 H 11.8-14.3 % Platelet Count 301 140-450 10^3/uL Mean Platelet Volume 8.1 6.9-10.8 fL Neutrophils (%) (Auto) 85.1 H 37.0-80.0 % Lymphocytes (%) (Auto) 9.9 L 10.0-50.0 % Monocytes (%) (Auto) 2.7 0.0-12.0 % Eosinophils (%) (Auto) 2.0 0.0-7.0 % Basophils (%) (Auto) 0.3 0.0-2.0 % Neutrophils # (Auto) 7.3 1.6-8.6 10 ^3/uL Lymphocytes # (Auto) 0.9 0.4-5.4 10 ^3/uL Monocytes # (Auto) 0.2 0-1.3 10 ^3/uL Eosinophils # (Auto) 0.2 0-0.8 10 ^3/uL Basophils # (Auto) 0 0-0.2 10 ^3/uL Nucleated Red Blood Cells 0.2 % Sodium Level 135 L 136-145 mmol/L Potassium Level 3.8 3.5-5.1 mmol/L Chloride Level 103 98-107 mmol/L Carbon Dioxide Level 23 20-31 mmol/L Anion Gap 9 5-15 Blood Urea Nitrogen 50 H 9-23 mg/dL Creatinine 2.07 H 0.550-1.02 mg/dL Glomerular Filtration Rate Calc 28 >90 mL/min BUN/Creatinine Ratio 24.2 H 10.0-20.0 Serum Glucose 97 74-106 mg/dL Calcium Level 8.6 L 8.7-10.4 mg/dL Magnesium Level 1.7 1.6-2.6 mg/dL Test 03/13/25 02:35 03/07/25 05:23 03/06/25 04:52 03/05/25 05:08 Range/Units Differential Total Cells Counted 100.0 100 Neutrophils % (Manual) 81 H 37.0-80.0 Band Neutrophils % (Manual) 5 Lymphocytes % (Manual) 11 10.0-50.0 Monocytes % (Manual) 1 0-12 Eosinophils % (Manual) 1 0-7 Basophils % (Manual) 0 0.0-2.0 Metamyelocytes % (manual) 0 Myelocytes % (Manual) 1 Promyelocytes % (Manual) 0 Blast Cells % (Manual) 0 Reactive Lymphocytes 0 Platelet Estimate Adequate Prothrombin Time 10.6 9.3-11.8 sec Prothrombin Time INR 1.00 0.9-1.15 Activated Partial Thromboplast Time 38.6 H 24.5-34.5 SEC D-Dimer, Quantitative 2.32 H 0.0-0.49 mg/L FEU Lactic Acid Level 1.6 0.4-2.0 mmol/L Phosphorus Level 6.1 H 2.4-5.1 mg/dL Total Bilirubin < 0.2 L 0.2-1.0 mg/dL Aspartate Amino Transferase (AST) 58 H 13-40 U/L Alanine Aminotransferase (ALT) 20 7-40 U/L Alkaline Phosphatase 192 H 46-116 U/L Total Protein 5.4 L 5.7-8.2 g/dL Albumin 2.7 L 3.2-4.8 g/dL Anisocytosis (manual) Slight Celso Cells Few Erythrocyte Sedimentation Rate 116 H 0-20 mm/hr C-Reactive Protein High Sensitivity 5.00 H <1.0 mg/dL Random Vancomycin Level 16.8 H 5-10 ug/mL Test 03/04/25 05:00 03/03/25 14:09 03/03/25 04:41 03/02/25 05:58 Range/Units Urine Creatinine 25.51 L 30.0-125.0 mg/dL Urine Protein/Creatinine Ratio 14.00 Urine Sodium 80 40-220 mmol/L Urine Total Protein 357.1 H 1-14 mg/dL Vitamin D 25-Hydroxy 7.2 L 30.0-100 ng/mL Parathyroid Hormone (Intact) 28.5 18.4-80.1 pg/mL Beta HCG, Quantitative 1.2 L 1.5-4.2 mIU/mL Test 02/25/25 12:42 02/23/25 13:36 02/21/25 15:30 02/20/25 06:00 Range/Units Body Fluid Source Knee fluid Body Fluid pH 8.0 Body Fluid WBC (Manual) 225 H 0-200 CUMM Body Fluid RBC (Manual) 325 0-2000 CUMM Body Fluid Mononuclear Cells 10 % Body Fluid Polymorphonuclear Cells 90 H 0-25 % Body Fluid Glucose 112 . mg/dL Anti-Nuclear Antibody Comment Comment . Cytoplasmic ANCA (c-ANCA) Antibody <1:20 Neg:<1:20 titer Anti-Proteinase 3 (c-ANCA) <0.2 0.0-0.9 units Atypical p-ANCA <1:20 Neg:<1:20 titer Perinuclear ANCA (p-ANCA) Antibody <1:20 Neg:<1:20 titer Myeloperoxidase Antibody <0.2 0.0-0.9 units NATALIIA-1 Antibody <0.2 0.0-0.9 AI SS-A/Ro Antibody <0.2 0.0-0.9 AI SS-B/La Antibody <0.2 0.0-0.9 AI Sm Antibody <0.2 0.0-0.9 AI SEISMIC COMPUTER Antibody <0.2 0.0-0.9 AI Scl-70 (Scleroderma) Antibody <0.2 0.0-0.9 AI Anti-Double Strand DNA Antibody <1 0-9 IU/mL Chromatin Antibody <0.2 0.0-0.9 AI Centromere B Antibody <0.2 0.0-0.9 AI Complement C3 172 H 82-167 mg/dL Complement C4 34 12-38 mg/dL Uric Acid 5.1 3.1-7.8 mg/dL Hemoglobin A1c 9.9 H <5.7 % A1C Triglycerides Level 186 H < 150 mg/dL Cholesterol Level 304 H < 200 mg/dL LDL Cholesterol 207 H < 100 mg/dL HDL Cholesterol 38 L 40-59 mg/dL Beta-Hydroxybutyric Acid 0.922 H < 0.4 mmol/L Test 02/19/25 17:27 02/19/25 15:25 02/19/25 11:30 Range/Units Urine Color Colorless Yellow Urine Clarity Clear Clear Urine pH 6.5 5.0-9.0 Urine Specific Amelia 1.008 1.001-1.035 Urine Protein 2+ H Negative Urine Ketones 1+ H Negative Urine Blood 1+ H Negative /uL Urine Nitrite Negative Negative Urine Bilirubin Negative Negative Urine Urobilinogen Normal Negative mg/dL Urine Leukocyte Esterase Negative Negative /uL Urine RBC 6 0 - 4 /hpf Urine Microscopic WBC 2 0-5 /HPF Urine Squamous Epithelial Cells Few <5 /hpf Urine Bacteria None seen None Seen /hpf Urine Glucose 2+ H Normal mg/dL Urine Opiates Screen Neg NEGATIVE Urine Fentanyl Screen Neg NEGATIVE Urine Barbiturates Screen Neg NEGATIVE Urine Phencyclidine Screen Neg NEGATIVE Urine Amphetamines Screen Neg NEGATIVE Urine Benzodiazepines Screen Neg NEGATIVE Urine Cocaine Screen Neg NEGATIVE Urine Cannabinoids Screen Pos NEGATIVE Troponin I High Sensitivity 25 </=34 ng/L Plasma/Serum Blood Alcohol < 3.0 <10 mg/dL Microbiology Date/Time Source Procedure Growth Status 03/13/25 05:10 Blood Blood Culture - Preliminary NO GROWTH AFTER 48 HOURS OF INCUBATION. Resulted 03/13/25 03:17 Sputum Gram Stain - Final Resulted 03/13/25 03:17 Respiratory Culture - Preliminary Presumptive Dionna albicans Resulted 03/06/25 14:37 Knee Left Gram Stain - Final Complete 03/06/25 14:37 Knee Left Anaerobic Culture - Final Complete 03/06/25 14:37 Aerobic Culture - Final Staphylococcus aureus Complete 03/04/25 13:29 Aspirate Gram Stain - Final Complete 03/04/25 13:29 Body Fluid Culture - Final Staphylococcus aureus Complete 02/19/25 17:27 Urine - Almaraz Port Urine Culture - Final Complete Assessment Impression: Acute hypoxic respiratory failure On mechanical ventilator Multiple acute/subacute strokes. Acute kidney injury. Hypertension, newly diagnosed. Insulin-dependent diabetes mellitus. Polysubstance use Peripheral vascular disease, s/p right BKA 6 months ago. Sepsis Plan: s/p intubation on mechanical ventilator. CXR image and report reviewed. ABG reviewed. On AC mode; RR 20, VT 400, PEEP 5, FiO2 35% Titrate FIO2 to keep O2 saturation above 90%. VAP bundle. Daily ABG and CXR while intubated Sedate for ventilator synchrony - on Versed/Fentanyl Continue antibiotics. F/u cultures. Tube feeds for nutritional support Currently off Levophed - hemodynamically stable. Pressors as necessary for hemodynamic support Titrate to keep mean arterial pressure greater than 65 mmHg. Monitor renal function Monitor electrolytes. Supplement as necessary. Monitor ins and outs. Taper sedation as tolerated CPAP with PS 8, PEEP 5 OK for Precedex if necessary GI prophylaxis. DVT prophylaxis. Prognosis: Poor given patient's multiple co-morbidities. Condition: Critical Rest of plan per hospitalist and other consultants. A total of 35 minutes of critical care time was spent reviewing the patient record, examining the patient, making a diagnostic and therapeutic plan, discussing this plan with the medical personnel, following up on diagnostic studies and following the patient for clinical stability excluding any and all procedures. At least 50% of this time was spent in direct, [id number] contact. Thank you, FRANCISCO Alanis, for allowing me to participate in this patient's care. Further recommendations will depend on the patient's clinical course. Please do not hesitate to contact me if you have any questions or concerns. This medical document was created using an electronic medical record system with [employer] dictation system. Although these documentations are being carefully reviewed, there may still be some phonetic and typographical changes. The errors are purely typographical, due to imperfection on the software program, and do not reflect any compromise in the patient's medical care. Plan discussed with: Other (ASHLEY Mckoy/FRANCISCO Alanis/) LARRY HERRERA MD Mar 15, 2025 22:11
--- NOTE | 2025-03-15 22:17 | DVHPN2 ---
Progress Note - Dictate Date Seen: Mar 15, 2025 Medical Necessity Reason Pt with a Central, PICC or Fol: Yes The following are medically ne: Almaraz Catheter Subjective Mr. Kaur is a 54 years old right-handed female with a history of hypertension, diabetes, dyslipidemia, anxiety, GERD, osteo myelitis status post right BKA, she came to the [facility] on 02/19/25 with a chief complaint of general weakness. He was transferred/ICU on 03/13/25 for ALOC, nasal bleeding and intubation I have seen and examined the patient, I have talked to her nurse, and other medical staff, she is intubated, sedated,nonresponsive to strong painful stimuli Psychiatry consultation, 02/26/25: 1:1 sitter. Transferred to inpatient psychiatric facility. Cymbalta 30 mg b.i.d. Fentanyl 100 mcg/hour, Versed 1 mg/hour ABG, 03/13/2025: Unremarkable UDS, 02/19/2025: Cannabinoids Plasma alcohol, 02/19/2025: Three Urinalysis, 02/19, : WBC: 2, urine leukocyte esterase WBC/HB/PLT/MCV, 02/20/2025: 21.9/10.9/398/83.1, 03/13/2025: 11.7/6.5/424/85.4 K, 02/19/2025: 1.7, 02/20/2025: 2.1 BUN/CR, 02/20/2025: 33/2.03, 03/13/2025: 51.93 HGB A1c, 06/03/2024: 13.1 Liver function tests, 02/20/2025: Unremarkable TG/HDL/LDL/HDL, 04/11/2024: 180/238/164/43 MAGALIS, 02/21/2025: 1. Technically good study. Sinus rhythm. 2. Left atrial enlargement. 3. Number Valves appear to be structurally normal. 4. Ventricular systolic function is preserved at 60% with normal RV function. 5. Doppler reveals mild TR. No significant mitral or aortic insufficiency. No atrial septal or ventricular septal defects 6. No masses or vegetations discernible. 7. The atrial appendage looks clean, no masses. No atrial or ventricular septal defects as noted. No abnormal shunting. Bubble study was negative 8. The valves appear to be structurally normal. No vegetations or signs of emboli present. Carotid Doppler, 02/20/2025: No hemodynamically significant stenosis noted in the right carotid system. No hemodynamically significant stenosis noted in the left carotid system. CT head, : Small age-indeterminate infarct extending from the right jorge radiata into the right basal ganglia. Further evaluation with MRI brain with diffusion-weighted imaging is recommended. CT head, , No acute intracranial abnormality. Multiple subacute bilateral lacunar infarcts as seen on prior MRI. MRI head, 02/19/2025: 1. There are multiple small foci of acute to subacute infarct in the right jorge radiata and right basal ganglia. There are also multiple small acute to subacute infarcts in the left anteromedial frontal lobe and in the left jorge radiata and left basal ganglia. There is no evidence of acute hemorrhage MRI left foot, 02/22/25: Moderate dorsal subcutaneous edema. No evidence of osteomyelitis. No drainable fluid collection noted. Moderate myositis. vital signs Vital Sign Date Time Temp Pulse Resp B/P (MAP) Pulse Ox O2 Delivery O2 Flow Rate FiO2 03/15/25 22:07 86 20 102/53 (69) 97 35 03/15/25 20:00 Mechanical Ventilator+ 03/15/25 20:00 98.4 98.4 Total Intake and Output 03/14/25 03/14/25 03/15/25 15:00 23:00 07:00 Intake Total 287.25 ml 364.00 ml 599.00 ml Output Total 900 ml 1750 ml Balance 287.25 ml -536.00 ml -1151.00 ml medications Current Medications Medications Dose Ordered Sig/John Route Start Time Stop Time Status Last Admin Dose Admin Ondansetron HCl 4 mg Q4HP PRN IV 02/19/25 13:45 03/06/25 02:55 4 MG Docusate Sodium 100 mg BIDPRN PRN PO 02/19/25 13:45 03/04/25 17:41 100 MG Acetaminophen 650 mg Q6HP PRN PO 02/19/25 13:45 03/09/25 21:36 650 MG Nitroglycerin 0.4 mg Q5MINP PRN SL 02/19/25 13:45 Diagnostic Test (Pha) 1 strip ACHS 02/19/25 17:00 03/15/25 22:07 1 STRIP Dextrose 50 ml UD PRN IV 02/19/25 15:45 03/14/25 21:04 50 ML Duloxetine HCl 30 mg DAILY PO 02/20/25 10:00 03/15/25 09:25 30 MG Potassium Chloride 100 ml @ 50 mls/hr Q2H IV 02/19/25 23:15 02/20/25 05:14 Cancel Potassium Chloride 100 ml @ 50 mls/hr Q2H IV 02/20/25 07:15 02/20/25 11:14 UNV Lorazepam 1 mg Q8HPRN PRN PO 02/23/25 14:15 02/28/25 21:38 1 MG Insulin Human Regular ACHS SC 02/28/25 17:00 03/14/25 06:26 2 UNITS Gabapentin 100 mg TID PO 03/02/25 14:00 03/15/25 22:07 100 MG Calcium Acetate 1,334 mg TIDWMEALS PO 03/04/25 12:00 03/15/25 13:12 1,334 MG Ergocalciferol 50,000 unit Q7D PO 03/04/25 11:45 03/04/25 17:41 50,000 UNIT Zirconium Oxide 10 gm TID PO 03/07/25 14:00 Cancel Sodium Bicarbonate 50 ml/ Sodium Chloride 1,050 ml @ 100 mls/hr [id number] IV 03/07/25 11:45 Cancel Acetaminophen/ Hydrocodone Bitart 1 tab Q6HP PRN PO 03/09/25 13:30 03/12/25 22:01 1 TAB Hydralazine HCl 10 mg Q6HPRN PRN IV 03/11/25 15:30 Guaifenesin 200 mg Q4HP PRN PO 03/12/25 20:15 03/12/25 22:00 200 MG Norepinephrine Bitartrate 250 ml @ 3.75 mls/hr Q24H IV 03/13/25 02:00 03/14/25 13:44 3.75 MLS/HR Midazolam HCl 50 ml @ 1 mls/hr Q24H IV 03/13/25 02:00 03/15/25 14:57 7 MLS/HR Fentanyl Citrate 250 ml @ 2.5 mls/hr Q24H IV 03/13/25 02:30 03/15/25 09:30 15 MLS/HR Ceftriaxone Sodium 50 ml @ 100 mls/hr Q24H IV 03/13/25 04:00 03/15/25 03:46 100 MLS/HR Clindamycin Phosphate 50 ml @ 50 mls/hr Q8HR IV 03/13/25 06:00 03/15/25 22:12 50 MLS/HR Pantoprazole Sodium 40 mg BID IV 03/13/25 10:00 03/15/25 22:07 40 MG Albuterol 2.5 mg Q6HR NEB 03/13/25 12:00 03/15/25 18:24 2.5 MG Ipratropium [place] 0.5 mg Q6HR NEB 03/13/25 12:00 03/15/25 18:24 0.5 MG Saccharomyces Boulardii 250 mg DAILY PO 03/14/25 10:00 03/15/25 09:25 250 MG Enteral Nutritional Formula 1,000 ml 30ML/HR GT 03/14/25 08:45 objective The patient is well-nourished and well-developed with no distress. The patient is intubated MUSCULOSKELETAL EXAM: Status post right BKA MENTAL STATUS: Subjective CRANIAL NERVES: Pupils are equal, round and reactive, small. There are corneal reflexes and doll's eyes phenomenon. No signs of facial weakness. There are no gagging or coughing reflexes SENSATION: No responses to pain stimuli. MOTOR: Normal tone in the upper and lower extremity. Normal muscle bulk. No fasciculations. No spontaneous movement. REFLEXES: Deep tendon reflexes are symmetrical. No pathological reflexes. CEREBELLAR/COORDINATION: Deferred GAIT/STATION: deferred. laboratory and microbiology Laboratory Tests 03/15/25 04:24 Test 03/15/25 04:24 Range/Units Serum Glucose 97 74-106 mg/dL Problem List Acute respiratory failure Excessive nasal bleeding Come Metabolic encephalopathy Hypoxic encephalopathy Toxic encephalopathy General weakness Multiple acute/subacute strokes Status post right BKA Depression Assessment/Plan Monitoring Supportive treatment EEG ICU Stabilize vitals Respiratory support/vent management Oxygen Antibiotics Aspirin 81 mg daily (HOLD) Cymbalta 30 mg b.i.d. DVT prophylaxis/SCD Quit tobacco smoking completely More recommendation per clinical course This medical document was created using an electronic medical record system with [employer] dictation system. Although this document has been carefully reviewed, there may still be some phonetic and typographical errors. These areas are purely typographical due to imperfections of the software programs, and do not reflect any compromise in the patient's medical care. Prognosis guarded Dietary Evaluation Review Comments: 1) Esau 1 pk BID 2) Refer [employer] on DC 3) Continue current plan of care Expected Outcomes/Goals: Pt will meet >75% estimated needs Fu 3-5 days Plan discussed with: Other NEELA RUEDA MD Mar 15, 2025 22:17
[2025-03-15] MEDS: Nepro With Carb Steady 1 Liter Bottle GT SCH (22:40)
[2025-03-16] VITALS (108 sets, daily range): BP systolic 76–134; BP diastolic 46–78; PULSE 84–100; RESP 11–26; TEMP 96.8–99.5; O2SAT 93–100
[2025-03-16 04:56] LABS: Basophils # (auto) 0 10 ^3/uL (0-0.2); Eosinophils # (auto) 0.1 10 ^3/uL (0-0.8); Hemoglobin 7.3 g/dL (12.2-16.2); Lymphocytes # (auto) 0.6 10 ^3/uL (0.4-5.4); Monocytes # (auto) 0.3 10 ^3/uL (0-1.3)
[2025-03-16 04:58] LABS: Basophils % (auto) 0.4 % (0.0-2.0); Eosinophils % (auto) 0.9 % (0.0-7.0); Hematocrit 22.2 % (36.0-46.0); Lymphocytes % (auto) 8.1 % (10.0-50.0); Mean Corpuscular Volume 84.9 fL (80.0-100.0); Monocytes % (auto) 3.6 % (0.0-12.0); Neutrophils # (auto) 6.1 10 ^3/uL (1.6-8.6); Nucleated Red Blood Cells % 0.2 %; Platelet Count (auto) 273 10^3/uL (140-450); Red Blood Cells 2.61 10^6/uL (4.0-5.20); Red Cell Distribution Width 16.5 % (11.8-14.3)
[2025-03-16 05:04] LABS: Chloride 103 mmol/L (98-107); Potassium 4.2 mmol/L (3.5-5.1); Sodium 135 mmol/L (136-145)
[2025-03-16 05:05] LABS: Anion Gap 8 (5-15); Carbon Dioxide 24 mmol/L (20-31)
[2025-03-16 05:07] LABS: Calcium 8.4 mg/dL (8.7-10.4)
[2025-03-16 05:10] LABS: BUN/Creatinine Ratio 21.6 (10.0-20.0)
[2025-03-16 05:13] LABS: Blood Urea Nitrogen 53 mg/dL (9-23); Glucose 130 mg/dL (74-106)
--- NOTE | 2025-03-16 06:10 | DVH ---
CHEST RADIOGRAPH Indication: pna Technique: Single frontal view of the chest was obtained Comparison: XY CHEST PORTABLE on DOS: 03/15/25, XY CHEST PORTABLE on DOS: 03/14/25, XY CHEST PORTABLE o n DOS: 03/13/25 IMPRESSION: The heart is prominent size. Endotracheal tube and enteric tube appear unchanged satisfactory positi on. Right IJ catheter tip in the region of the superior vena cava. Patchy airspace opacities appear mildly improved but persist. No sizable effusion or pneumothorax.
[2025-03-16 07:12] LABS: Base Excess -5.8 mmol/L (-2.0-3.0)
[2025-03-16] MEDS: FUROSEMIDE 100 MG/10ML VIAL IV ONE (13:55)
[2025-03-16] MEDS: DexAMETHasone SOD PHOS 10MG/1ML VIAL INJ IV ONE (22:30)
[2025-03-16] MEDS: SODIUM BICARB 8.4% 50Meq/50ml SYR Vial IV ONE (22:32)
--- NOTE | 2025-03-16 23:22 | DVHPN2 ---
Progress Note - Dictate Date Seen: Mar 16, 2025 Medical Necessity Reason Pt with a Central, PICC or Fol: Yes The following are medically ne: Almaraz Catheter Subjective Patient was seen and evaluated in follow up in the ICU. Patient is intubated and sedated on ventilator. 30% FiO2. HGB 7.3, HCT 22.2, NA 135, BUN 53, CASING IN LINE SETTER 2.45, CA 8.4. Chest x-ray showed patchy airspace opacities appear mildly improved but persist. No sizable effusion or pneumothorax. vital signs Vital Sign Date Time Temp Pulse Resp B/P (MAP) Pulse Ox O2 Delivery O2 Flow Rate FiO2 03/16/25 13:55 103/58 03/16/25 13:36 88 22 97 30 03/16/25 12:00 98.2 98.2 03/16/25 10:00 Mechanical Ventilator Total Intake and Output 03/15/25 03/15/25 03/16/25 15:00 23:00 07:00 Intake Total 326.50 ml 506.50 ml 543.0 ml Output Total 550 ml 175 ml Balance 326.50 ml -43.50 ml 368.0 ml medications Current Medications Medications Dose Ordered Sig/John Route Start Time Stop Time Status Last Admin Dose Admin Ondansetron HCl 4 mg Q4HP PRN IV 02/19/25 13:45 03/06/25 02:55 4 MG Docusate Sodium 100 mg BIDPRN PRN PO 02/19/25 13:45 03/04/25 17:41 100 MG Acetaminophen 650 mg Q6HP PRN PO 02/19/25 13:45 03/09/25 21:36 650 MG Nitroglycerin 0.4 mg Q5MINP PRN SL 02/19/25 13:45 Diagnostic Test (Pha) 1 strip ACHS 02/19/25 17:00 03/16/25 11:54 1 STRIP Dextrose 50 ml UD PRN IV 02/19/25 15:45 03/14/25 21:04 50 ML Duloxetine HCl 30 mg DAILY PO 02/20/25 10:00 03/16/25 10:04 30 MG Potassium Chloride 100 ml @ 50 mls/hr Q2H IV 02/19/25 23:15 02/20/25 05:14 Cancel Potassium Chloride 100 ml @ 50 mls/hr Q2H IV 02/20/25 07:15 02/20/25 11:14 UNV Lorazepam 1 mg Q8HPRN PRN PO 02/23/25 14:15 02/28/25 21:38 1 MG Insulin Human Regular ACHS SC 02/28/25 17:00 03/16/25 11:53 2 UNITS Gabapentin 100 mg TID PO 03/02/25 14:00 03/16/25 13:55 100 MG Calcium Acetate 1,334 mg TIDWMEALS PO 03/04/25 12:00 03/16/25 11:53 1,334 MG Ergocalciferol 50,000 unit Q7D PO 03/04/25 11:45 03/04/25 17:41 50,000 UNIT Zirconium Oxide 10 gm TID PO 03/07/25 14:00 Cancel Sodium Bicarbonate 50 ml/ Sodium Chloride 1,050 ml @ 100 mls/hr [id number] IV 03/07/25 11:45 Cancel Acetaminophen/ Hydrocodone Bitart 1 tab Q6HP PRN PO 03/09/25 13:30 03/12/25 22:01 1 TAB Hydralazine HCl 10 mg Q6HPRN PRN IV 03/11/25 15:30 Guaifenesin 200 mg Q4HP PRN PO 03/12/25 20:15 03/12/25 22:00 200 MG Norepinephrine Bitartrate 250 ml @ 3.75 mls/hr Q24H IV 03/13/25 02:00 03/14/25 13:44 3.75 MLS/HR Midazolam HCl 50 ml @ 1 mls/hr Q24H IV 03/13/25 02:00 03/16/25 07:59 5 MLS/HR Fentanyl Citrate 250 ml @ 2.5 mls/hr Q24H IV 03/13/25 02:30 03/16/25 08:02 7.5 MLS/HR Ceftriaxone Sodium 50 ml @ 100 mls/hr Q24H IV 03/13/25 04:00 03/16/25 03:57 100 MLS/HR Clindamycin Phosphate 50 ml @ 50 mls/hr Q8HR IV 03/13/25 06:00 03/16/25 13:50 50 MLS/HR Pantoprazole Sodium 40 mg BID IV 03/13/25 10:00 03/16/25 10:04 40 MG Albuterol 2.5 mg Q6HR NEB 03/13/25 12:00 03/16/25 11:28 2.5 MG Ipratropium Gilbert 0.5 mg Q6HR NEB 03/13/25 12:00 03/16/25 11:29 0.5 MG Saccharomyces Razaulardii 250 mg DAILY PO 03/14/25 10:00 03/16/25 10:04 250 MG Enteral Nutritional Formula 1,000 ml 30ML/HR GT 03/14/25 08:45 03/15/25 22:40 1,000 ML objective GENERAL: Intubated on ventilator. EYES: PERRL, EOMI. Anicteric. HENT: Moist mucous membranes. LUNGS: Decreased breath sounds. CARDIOVASCULAR: Regular rate and rhythm. ABDOMEN: Soft, non-tender and non-distended. EXTREMITIES: No edema. SKIN: Warm, dry. laboratory and microbiology Laboratory Tests 03/16/25 04:35 Test 03/16/25 04:35 Range/Units Serum Glucose 130 H 74-106 mg/dL Problem List Multiple acute/subacute strokes. Hypokalemia. Acute kidney injury. Hypertension, newly diagnosed. Insulin-dependent diabetes mellitus. Status post right BKA. Dyslipidemia. Polysubstance use disorder. Left lower extremity cellulitis. Peripheral vascular disease status post right [id number] amputation 6 months ago. Sepsis. Diabetic neuropathy. Assessment/Plan Continued all current supportive medical care. [place] for pain management. IV antibiotics as ordered. IV Hydralazine for SBP >160. GI prophylactics. Vasopressors for hemodynamic support. Additional plan as per the hospital course. Critical care time of 45 minutes provided to include time spent evaluation of patient at bedside, when appropriate patient/family education for diagnosis, treatment plan, review of pertinent medical information and discussion of care with specialty providers and PCP. Mechanical ventilator parameters, treatment and adjustments have personally been reviewed by me and treatment plan by brine process operator has also been reviewed. Dietary Evaluation Review Comments: 1) Esau 1 pk BID 2) Refer Hide Measuring Machine Operator on DC 3) Continue current plan of care Expected Outcomes/Goals: Pt will meet >75% estimated needs Fu 3-5 days Plan discussed with: Other YANIRA WINN MD Mar 16, 2025 14:41
--- NOTE | 2025-03-16 23:52 | DVHPN2 ---
Progress Note - Dictate Date Seen: Mar 16, 2025 Medical Necessity Reason Pt with a Central, PICC or Fol: Yes The following are medically ne: Acosta Catheter Reason for acosta catheter: Strict I&O Subjective Patient seen and examined at bedside. Sedated, intubated on mechanical ventilator. Overnight events reviewed. vital signs Vital Sign Date Time Temp Pulse Resp B/P (MAP) Pulse Ox O2 Delivery O2 Flow Rate FiO2 03/16/25 23:20 94 26 121/62 (81) 98 30 03/16/25 20:00 98.8 98.8 03/16/25 18:00 Mechanical Ventilator+ Total Intake and Output 03/15/25 03/15/25 03/16/25 15:00 23:00 07:00 Intake Total 326.50 ml 506.50 ml 543.0 ml Output Total 550 ml 175 ml Balance 326.50 ml -43.50 ml 368.0 ml medications Current Medications Medications Dose Ordered Sig/John Route Start Time Stop Time Status Last Admin Dose Admin Ondansetron HCl 4 mg Q4HP PRN IV 02/19/25 13:45 03/06/25 02:55 4 MG Docusate Sodium 100 mg BIDPRN PRN PO 02/19/25 13:45 03/04/25 17:41 100 MG Acetaminophen 650 mg Q6HP PRN PO 02/19/25 13:45 03/09/25 21:36 650 MG Nitroglycerin 0.4 mg Q5MINP PRN SL 02/19/25 13:45 Diagnostic Test (Pha) 1 strip ACHS 02/19/25 17:00 03/16/25 22:19 1 STRIP Dextrose 50 ml UD PRN IV 02/19/25 15:45 03/14/25 21:04 50 ML Duloxetine HCl 30 mg DAILY PO 02/20/25 10:00 03/16/25 10:04 30 MG Potassium Chloride 100 ml @ 50 mls/hr Q2H IV 02/19/25 23:15 02/20/25 05:14 Cancel Potassium Chloride 100 ml @ 50 mls/hr Q2H IV 02/20/25 07:15 02/20/25 11:14 UNV Lorazepam 1 mg Q8HPRN PRN PO 02/23/25 14:15 02/28/25 21:38 1 MG Insulin Human Regular ACHS SC 02/28/25 17:00 03/16/25 11:53 2 UNITS Gabapentin 100 mg TID PO 03/02/25 14:00 03/16/25 22:31 100 MG Calcium Acetate 1,334 mg TIDWMEALS PO 03/04/25 12:00 03/16/25 17:06 1,334 MG Ergocalciferol 50,000 unit Q7D PO 03/04/25 11:45 03/04/25 17:41 50,000 UNIT Zirconium Oxide 10 gm TID PO 03/07/25 14:00 Cancel Sodium Bicarbonate 50 ml/ Sodium Chloride 1,050 ml @ 100 mls/hr [id number] IV 03/07/25 11:45 Cancel Acetaminophen/ Hydrocodone Bitart 1 tab Q6HP PRN PO 03/09/25 13:30 03/12/25 22:01 1 TAB Hydralazine HCl 10 mg Q6HPRN PRN IV 03/11/25 15:30 Guaifenesin 200 mg Q4HP PRN PO 03/12/25 20:15 03/12/25 22:00 200 MG Norepinephrine Bitartrate 250 ml @ 3.75 mls/hr Q24H IV 03/13/25 02:00 03/14/25 13:44 3.75 MLS/HR Midazolam HCl 50 ml @ 1 mls/hr Q24H IV 03/13/25 02:00 03/16/25 16:55 5 MLS/HR Fentanyl Citrate 250 ml @ 2.5 mls/hr Q24H IV 03/13/25 02:30 03/16/25 08:02 7.5 MLS/HR Ceftriaxone Sodium 50 ml @ 100 mls/hr Q24H IV 03/13/25 04:00 03/16/25 03:57 100 MLS/HR Clindamycin Phosphate 50 ml @ 50 mls/hr Q8HR IV 03/13/25 06:00 03/16/25 22:34 50 MLS/HR Pantoprazole Sodium 40 mg BID IV 03/13/25 10:00 03/16/25 22:31 40 MG Albuterol 2.5 mg Q6HR NEB 03/13/25 12:00 03/16/25 23:41 2.5 MG Ipratropium [place] 0.5 mg Q6HR NEB 03/13/25 12:00 03/16/25 23:41 0.5 MG Saccharomyces Boulardii 250 mg DAILY PO 03/14/25 10:00 03/16/25 10:04 250 MG Enteral Nutritional Formula 1,000 ml 30ML/HR GT 03/14/25 08:45 03/15/25 22:40 1,000 ML objective Gen.: Patient lying in bed in medical ICU. Sedated, intubated on mechanical ventilator. Head: Normocephalic, atraumatic. Eyes: PERRLA. Ears: Normal external anatomy. Throat: Endotracheal tube and orogastric tube in place. Neck: Supple, trachea midline. Chest: Transmitted breath sounds bilaterally. Decreased air entry bilaterally. No wheezing. Bibasilar crackles. Cardiovascular: Positive S1, positive S2. Regular rate and rhythm. Abdomen: Positive bowel sounds in all 4 quadrants. Soft, nontender, nondistended. : Acosta in place. Normal external genitalia. Rectal: Deferred. Skin: Warm, dry. Intact. Extremities: 2+ radial pulses bilaterally. No lower extremity edema. s/p right BKA. Neuro: Sedated. laboratory and microbiology Laboratory Tests 03/16/25 04:35 Test 03/16/25 04:35 Range/Units Serum Glucose 130 H 74-106 mg/dL Assessment/Plan Impression: Acute hypoxic respiratory failure On mechanical ventilator Multiple acute/subacute strokes. Acute kidney injury. Hypertension, newly diagnosed. Insulin-dependent diabetes mellitus. Polysubstance use Peripheral vascular disease, s/p right BKA 6 months ago. Sepsis Events: Remains on vent support On AC mode; RR 20, VT 400, PEEP 5, FiO2 30% Sedated on Versed, Fentanyl Continue antibiotics. Tube feeds for nutritional support ABG reviewed, notable for acidemia Swollen tongue - Decadron 6 mg IVP Received 1 amp bicarb CXR reviewed; patchy airspace opacities appear mildly improved but persist. No effusion or pneumothorax Labs and imaging reviewed. Rest of plan as noted below. Plan: s/p intubation on mechanical ventilator. On AC mode; RR 20, VT 400, PEEP 5, FiO2 30% Titrate FIO2 to keep O2 saturation above 90%. VAP bundle. Daily ABG and CXR while intubated Sedate for ventilator synchrony Continue antibiotics. F/u cultures. Tube feeds for nutritional support Pressors as necessary for hemodynamic support Titrate to keep mean arterial pressure greater than 65 mmHg. Monitor renal function Monitor electrolytes. Supplement as necessary. Monitor ins and outs. Taper sedation as tolerated CPAP with PS 8, PEEP 5 OK for Precedex if necessary GI prophylaxis. DVT prophylaxis. Prognosis: Poor given patient's multiple co-morbidities. Condition: Critical Rest of plan per hospitalist and other consultants. A total of 35 minutes of critical care time was spent reviewing the patient record, examining the patient, making a diagnostic and therapeutic plan, discussing this plan with the medical personnel, following up on diagnostic studies and following the patient for clinical stability excluding any and all procedures. At least 50% of this time was spent in direct, [id number] contact. Thank you, FRANCISCO Alanis, for allowing me to participate in this patient's care. Further recommendations will depend on the patient's clinical course. Please do not hesitate to contact me if you have any questions or concerns. This medical document was created using an electronic medical record system with [employer] dictation system. Although these documentations are being carefully reviewed, there may still be some phonetic and typographical changes. The errors are purely typographical, due to imperfection on the software program, and do not reflect any compromise in the patient's medical care. Dietary Evaluation Review Comments: 1) Esau 1 pk BID 2) Refer Principal Planner on DC 3) Continue current plan of care Expected Outcomes/Goals: Pt will meet >75% estimated needs Fu 3-5 days Plan discussed with: Other (ASHLEY Saez) Critical Care Time(min): 35 LARRY HERRERA MD Mar 16, 2025 23:52
[2025-03-17] VITALS (105 sets, daily range): BP systolic 127–161; BP diastolic 63–84; PULSE 87–105; RESP 19–25; TEMP 97.1–98.8; O2SAT 92–100
--- NOTE | 2025-03-17 04:59 | DVH ---
CHEST RADIOGRAPH Indication: INTUBATED Technique: Single frontal view of the chest was obtained Comparison: XY CHEST PORTABLE on DOS: 03/16/25, XY CHEST PORTABLE on DOS: 03/15/25, XY CHEST PORTABLE o n DOS: 03/14/25 FINDINGS: Lines and Tubes: The endotracheal tube terminates 0.4 cm above the caleb. Right central venous cath eter terminates in the right atrium. The enteric tube courses below the left hemidiaphragm and the ti p extends outside the field of view. Lungs: Patchy bilateral opacities are similar to the prior study. Pleura: No effusion. No pneumothorax. Cardiomediastinal contours: Stable Cardiovascular silhouette. Bones: No acute osseous abnormality. IMPRESSION: 1. Endotracheal tube terminates 0.4 cm above the caleb and can be pulled back about 2 cm. Other drew es and tubes are unchanged in position. 2. Bilateral airspace disease similar to prior study.
[2025-03-17 06:14] LABS: Basophils # (auto) 0 10 ^3/uL (0-0.2); Eosinophils # (auto) 0 10 ^3/uL (0-0.8); Eosinophils % (auto) 0.2 % (0.0-7.0); Lymphocytes # (auto) 0.5 10 ^3/uL (0.4-5.4); Lymphocytes % (auto) 5.2 % (10.0-50.0); Monocytes # (auto) 0.2 10 ^3/uL (0-1.3); Neutrophils # (auto) 8.2 10 ^3/uL (1.6-8.6); Neutrophils % (auto) 92.6 % (37.0-80.0); White Blood Cell 8.8 10^3/uL (4.4-10.8)
[2025-03-17 06:17] LABS: Basophils % (auto) 0.1 % (0.0-2.0); Hemoglobin 8.1 g/dL (12.2-16.2); Mean Corpuscular Hgb Conc. 33.9 g/dL (32.0-36.0); Mean Corpuscular Volume 82.6 fL (80.0-100.0); Monocytes % (auto) 1.9 % (0.0-12.0); Nucleated Red Blood Cells % 0.1 %; Platelet Count (auto) 361 10^3/uL (140-450)
[2025-03-17 06:24] LABS: Anion Gap 12 (5-15); Carbon Dioxide 23 mmol/L (20-31); Chloride 103 mmol/L (98-107); Potassium 4.3 mmol/L (3.5-5.1); Sodium 138 mmol/L (136-145)
[2025-03-17 06:30] LABS: BUN/Creatinine Ratio 22.5 (10.0-20.0); Magnesium 2.1 mg/dL (1.6-2.6)
[2025-03-17 06:39] LABS: Blood Urea Nitrogen 57 mg/dL (9-23); Calcium 8.6 mg/dL (8.7-10.4); Glucose 169 mg/dL (74-106); Phosphorus 7.1 mg/dL (2.4-5.1)
[2025-03-17 06:59] LABS: Base Excess -3.6 mmol/L (-2.0-3.0)
--- NOTE | 2025-03-17 08:23 | DVHPN2 ---
Reviewed: Care Plan, H&P, Labs, Medications, Previous Orders, Radiology, Other (Consultations) Changes from previous H/P or p: No Changes General: Per HPI Objective Vitals Vital Signs Date Time Temp Pulse Resp B/P (MAP) Pulse Ox O2 Delivery O2 Flow Rate FiO2 03/17/25 07:44 92 24 141/75 (97) 100 30 03/17/25 07:30 Mechanical Ventilator+ 03/17/25 04:00 98.4 98.4 Intake/Output Intake and Output 03/17/25 07:00 Intake Total 1159.0 ml Output Total 2225 ml Balance -1066.0 ml Intake Oral 90 ml IV Total 469.0 ml Tube Feeding 360 ml Other 240 ml Output Urine Total 2225 ml General Appearance: Alert, Oriented X3, Cooperative, No acute distress HEENT: Atraumatic, PERRLA Lungs: Clear to auscultation, Normal air movement Cardiovascular: Regular rate, Normal S1, Normal S2 Abdomen: Normal bowel sounds, Soft, No tenderness Extremities: No edema, Normal pulses, Other (Less redness and swelling to left lower extremity) Neuro: Normal speech, Other Skin: Wounds (See nurse notes and pictures) Psych/Mental Status: Mental status NL, Mood NL Medications Current Medications Medications Dose Ordered Sig/John Route Start Time Stop Time Status Last Admin Dose Admin Ondansetron HCl 4 mg Q4HP PRN IV 02/19/25 13:45 03/06/25 02:55 4 MG Docusate Sodium 100 mg BIDPRN PRN PO 02/19/25 13:45 03/04/25 17:41 100 MG Acetaminophen 650 mg Q6HP PRN PO 02/19/25 13:45 03/09/25 21:36 650 MG Nitroglycerin 0.4 mg Q5MINP PRN SL 02/19/25 13:45 Diagnostic Test (Pha) 1 strip ACHS 02/19/25 17:00 03/17/25 06:42 1 STRIP Dextrose 50 ml UD PRN IV 02/19/25 15:45 03/14/25 21:04 50 ML Duloxetine HCl 30 mg DAILY PO 02/20/25 10:00 03/16/25 10:04 30 MG Potassium Chloride 100 ml @ 50 mls/hr Q2H IV 02/19/25 23:15 02/20/25 05:14 Cancel Potassium Chloride 100 ml @ 50 mls/hr Q2H IV 02/20/25 07:15 02/20/25 11:14 UNV Lorazepam 1 mg Q8HPRN PRN PO 02/23/25 14:15 02/28/25 21:38 1 MG Insulin Human Regular ACHS SC 02/28/25 17:00 03/17/25 06:58 3 UNITS Gabapentin 100 mg TID PO 03/02/25 14:00 03/17/25 06:02 100 MG Calcium Acetate 1,334 mg TIDWMEALS PO 03/04/25 12:00 03/16/25 17:06 1,334 MG Ergocalciferol 50,000 unit Q7D PO 03/04/25 11:45 03/04/25 17:41 50,000 UNIT Zirconium Oxide 10 gm TID PO 03/07/25 14:00 Cancel Sodium Bicarbonate 50 ml/ Sodium Chloride 1,050 ml @ 100 mls/hr [id number] IV 03/07/25 11:45 Cancel Acetaminophen/ Hydrocodone Bitart 1 tab Q6HP PRN PO 03/09/25 13:30 03/12/25 22:01 1 TAB Hydralazine HCl 10 mg Q6HPRN PRN IV 03/11/25 15:30 Guaifenesin 200 mg Q4HP PRN PO 03/12/25 20:15 03/12/25 22:00 200 MG Norepinephrine Bitartrate 250 ml @ 3.75 mls/hr Q24H IV 03/13/25 02:00 03/14/25 13:44 3.75 MLS/HR Midazolam HCl 50 ml @ 1 mls/hr Q24H IV 03/13/25 02:00 03/17/25 03:14 4 MLS/HR Fentanyl Citrate 250 ml @ 2.5 mls/hr Q24H IV 03/13/25 02:30 03/16/25 08:02 7.5 MLS/HR Ceftriaxone Sodium 50 ml @ 100 mls/hr Q24H IV 03/13/25 04:00 03/17/25 03:52 100 MLS/HR Clindamycin Phosphate 50 ml @ 50 mls/hr Q8HR IV 03/13/25 06:00 03/17/25 06:02 50 MLS/HR Pantoprazole Sodium 40 mg BID IV 03/13/25 10:00 03/16/25 22:31 40 MG Albuterol 2.5 mg Q6HR NEB 03/13/25 12:00 03/17/25 05:59 2.5 MG Ipratropium Percival 0.5 mg Q6HR NEB 03/13/25 12:00 03/17/25 05:59 0.5 MG Saccharomyces Boulardii 250 mg DAILY PO 03/14/25 10:00 03/16/25 10:04 250 MG Enteral Nutritional Formula 1,000 ml 30ML/HR GT 03/14/25 08:45 03/15/25 22:40 1,000 ML Laboratory Results Laboratory Tests 03/17/25 05:40 Chemistry Test 03/17/25 05:40 Calcium Level 8.6 mg/dL (8.7-10.4) L Magnesium Level 2.1 mg/dL (1.6-2.6) Phosphorus Level 7.1 mg/dL (2.4-5.1) H Urinalysis Test 02/19/25 17:27 03/04/25 05:00 Urine Color Colorless (Yellow) Urine Clarity Clear (Clear) Urine pH 6.5 (5.0-9.0) Urine Specific [place] 1.008 (1.001-1.035) Urine Protein 2+ (Negative) H Urine Ketones 1+ (Negative) H Urine Blood 1+ /uL (Negative) H Urine Nitrite Negative (Negative) Urine Bilirubin Negative (Negative) Urine Urobilinogen Normal mg/dL (Negative) Urine Leukocyte Esterase Negative /uL (Negative) Urine RBC 6 /hpf (0 - 4) Urine Microscopic WBC 2 /HPF (0-5) Urine Squamous Epithelial Cells Few /hpf (<5) Urine Bacteria None seen /hpf (None Seen) Urine Glucose 2+ mg/dL (Normal) H Urine Creatinine 25.51 mg/dL (30.0-125.0) L Urine Protein/Creatinine Ratio 14.00 Urine Sodium 80 mmol/L (40-220) Urine Total Protein 357.1 mg/dL (1-14) H Blood Gas Results Test 03/17/25 06:42 Arterial Blood pH 7.338 (7.350-7.450) FiO2 % 30.0 Microbiology Microbiology Date/Time Source Procedure Growth Status 03/13/25 05:10 Blood Blood Culture - Preliminary NO GROWTH AFTER 72 HOURS OF INCUBATION. Resulted 03/13/25 03:17 Sputum Gram Stain - Final Complete 03/13/25 03:17 Respiratory Culture - Final Presumptive Dionna albicans Complete 03/06/25 14:37 Knee Left Gram Stain - Final Complete 03/06/25 14:37 Knee Left Anaerobic Culture - Final Complete 03/06/25 14:37 Aerobic Culture - Final Staphylococcus aureus Complete 03/04/25 13:29 Aspirate Gram Stain - Final Complete 03/04/25 13:29 Body Fluid Culture - Final Staphylococcus aureus Complete 02/19/25 17:27 Urine - [place] Urine Culture - Final Complete Labs and/or images reviewed: Labs reviewed by me, Image(s) reviewed by me Assessment/Plan Assessment/Plan mpression: Multiple acute/subacute strokes Left lower extremity cellulitis Rule out left septic knee Hypokalemia Acute kidney injury likely hemodynamically mediated due to vasomotor nephropathy Chronic kidney disease Peripheral vascular disease status post right [id number]-swtd amputation 6 months ago Poorly controlled type 2 diabetes Sepsis Hypertension Mixed hyperlipidemia Polysubstance use disorder Diabetic neuropathy -? Suicidal ideation -septic bursitis with Staphylococcus aureus -septic shock Plan: -events: H&H stable. Minimal gastric secretions. Patient became hypothermic -start tube feeding with Nepro -continue vasopressor therapy to keep map greater than 65 mmHg -bronchodilators -antibiotics: Continue Rocephin and clindamycin, add Florastor -potassium replacement -continue PPI Total time spent with patient discussing and formulating plan of care: 35 minutes. Plan discussed with: Other (nursing) Date of Service: Mar 15, 2025 Billing Provider: PERRI REIS DO Common Visit Codes: [id number] CARE 30-74 MIN PERRI REIS DO Mar 17, 2025 08:23
--- NOTE | 2025-03-17 08:24 | DVHPN2 ---
Reviewed: Care Plan, H&P, Labs, Medications, Previous Orders, Radiology, Other (Consultations) Changes from previous H/P or p: No Changes General: Per HPI Objective Vitals Vital Signs Date Time Temp Pulse Resp B/P (MAP) Pulse Ox O2 Delivery O2 Flow Rate FiO2 03/17/25 07:44 92 24 141/75 (97) 100 30 03/17/25 07:30 Mechanical Ventilator+ 03/17/25 04:00 98.4 98.4 Intake/Output Intake and Output 03/17/25 07:00 Intake Total 1159.0 ml Output Total 2225 ml Balance -1066.0 ml Intake Oral 90 ml IV Total 469.0 ml Tube Feeding 360 ml Other 240 ml Output Urine Total 2225 ml General Appearance: Alert, Oriented X3, Cooperative, No acute distress HEENT: Atraumatic, PERRLA Lungs: Clear to auscultation, Normal air movement Cardiovascular: Regular rate, Normal S1, Normal S2 Abdomen: Normal bowel sounds, Soft, No tenderness Extremities: No edema, Normal pulses, Other (Less redness and swelling to left lower extremity) Neuro: Normal speech, Other Skin: Wounds (See nurse notes and pictures) Psych/Mental Status: Mental status NL, Mood NL Medications Current Medications Medications Dose Ordered Sig/John Route Start Time Stop Time Status Last Admin Dose Admin Ondansetron HCl 4 mg Q4HP PRN IV 02/19/25 13:45 03/06/25 02:55 4 MG Docusate Sodium 100 mg BIDPRN PRN PO 02/19/25 13:45 03/04/25 17:41 100 MG Acetaminophen 650 mg Q6HP PRN PO 02/19/25 13:45 03/09/25 21:36 650 MG Nitroglycerin 0.4 mg Q5MINP PRN SL 02/19/25 13:45 Diagnostic Test (Pha) 1 strip ACHS 02/19/25 17:00 03/17/25 06:42 1 STRIP Dextrose 50 ml UD PRN IV 02/19/25 15:45 03/14/25 21:04 50 ML Duloxetine HCl 30 mg DAILY PO 02/20/25 10:00 03/16/25 10:04 30 MG Potassium Chloride 100 ml @ 50 mls/hr Q2H IV 02/19/25 23:15 02/20/25 05:14 Cancel Potassium Chloride 100 ml @ 50 mls/hr Q2H IV 02/20/25 07:15 02/20/25 11:14 UNV Lorazepam 1 mg Q8HPRN PRN PO 02/23/25 14:15 02/28/25 21:38 1 MG Insulin Human Regular ACHS SC 02/28/25 17:00 03/17/25 06:58 3 UNITS Gabapentin 100 mg TID PO 03/02/25 14:00 03/17/25 06:02 100 MG Calcium Acetate 1,334 mg TIDWMEALS PO 03/04/25 12:00 03/16/25 17:06 1,334 MG Ergocalciferol 50,000 unit Q7D PO 03/04/25 11:45 03/04/25 17:41 50,000 UNIT Zirconium Oxide 10 gm TID PO 03/07/25 14:00 Cancel Sodium Bicarbonate 50 ml/ Sodium Chloride 1,050 ml @ 100 mls/hr [id number] IV 03/07/25 11:45 Cancel Acetaminophen/ Hydrocodone Bitart 1 tab Q6HP PRN PO 03/09/25 13:30 03/12/25 22:01 1 TAB Hydralazine HCl 10 mg Q6HPRN PRN IV 03/11/25 15:30 Guaifenesin 200 mg Q4HP PRN PO 03/12/25 20:15 03/12/25 22:00 200 MG Norepinephrine Bitartrate 250 ml @ 3.75 mls/hr Q24H IV 03/13/25 02:00 03/14/25 13:44 3.75 MLS/HR Midazolam HCl 50 ml @ 1 mls/hr Q24H IV 03/13/25 02:00 03/17/25 03:14 4 MLS/HR Fentanyl Citrate 250 ml @ 2.5 mls/hr Q24H IV 03/13/25 02:30 03/16/25 08:02 7.5 MLS/HR Ceftriaxone Sodium 50 ml @ 100 mls/hr Q24H IV 03/13/25 04:00 03/17/25 03:52 100 MLS/HR Clindamycin Phosphate 50 ml @ 50 mls/hr Q8HR IV 03/13/25 06:00 03/17/25 06:02 50 MLS/HR Pantoprazole Sodium 40 mg BID IV 03/13/25 10:00 03/16/25 22:31 40 MG Albuterol 2.5 mg Q6HR NEB 03/13/25 12:00 03/17/25 05:59 2.5 MG Ipratropium [place] 0.5 mg Q6HR NEB 03/13/25 12:00 03/17/25 05:59 0.5 MG Saccharomyces Boulardii 250 mg DAILY PO 03/14/25 10:00 03/16/25 10:04 250 MG Enteral Nutritional Formula 1,000 ml 30ML/HR GT 03/14/25 08:45 03/15/25 22:40 1,000 ML Laboratory Results Laboratory Tests 03/17/25 05:40 Chemistry Test 03/17/25 05:40 Calcium Level 8.6 mg/dL (8.7-10.4) L Magnesium Level 2.1 mg/dL (1.6-2.6) Phosphorus Level 7.1 mg/dL (2.4-5.1) H Urinalysis Test 02/19/25 17:27 03/04/25 05:00 Urine Color Colorless (Yellow) Urine Clarity Clear (Clear) Urine pH 6.5 (5.0-9.0) Urine Specific [place] 1.008 (1.001-1.035) Urine Protein 2+ (Negative) H Urine Ketones 1+ (Negative) H Urine Blood 1+ /uL (Negative) H Urine Nitrite Negative (Negative) Urine Bilirubin Negative (Negative) Urine Urobilinogen Normal mg/dL (Negative) Urine Leukocyte Esterase Negative /uL (Negative) Urine RBC 6 /hpf (0 - 4) Urine Microscopic WBC 2 /HPF (0-5) Urine Squamous Epithelial Cells Few /hpf (<5) Urine Bacteria None seen /hpf (None Seen) Urine Glucose 2+ mg/dL (Normal) H Urine Creatinine 25.51 mg/dL (30.0-125.0) L Urine Protein/Creatinine Ratio 14.00 Urine Sodium 80 mmol/L (40-220) Urine Total Protein 357.1 mg/dL (1-14) H Blood Gas Results Test 03/17/25 06:42 Arterial Blood pH 7.338 (7.350-7.450) FiO2 % 30.0 Microbiology Microbiology Date/Time Source Procedure Growth Status 03/13/25 05:10 Blood Blood Culture - Preliminary NO GROWTH AFTER 72 HOURS OF INCUBATION. Resulted 03/13/25 03:17 Sputum Gram Stain - Final Complete 03/13/25 03:17 Respiratory Culture - Final Presumptive Dionna albicans Complete 03/06/25 14:37 Knee Left Gram Stain - Final Complete 03/06/25 14:37 Knee Left Anaerobic Culture - Final Complete 03/06/25 14:37 Aerobic Culture - Final Staphylococcus aureus Complete 03/04/25 13:29 Aspirate Gram Stain - Final Complete 03/04/25 13:29 Body Fluid Culture - Final Staphylococcus aureus Complete 02/19/25 17:27 Urine - [place] Urine Culture - Final Complete Assessment/Plan Assessment/Plan mpression: Multiple acute/subacute strokes Left lower extremity cellulitis Rule out left septic knee Hypokalemia Acute kidney injury likely hemodynamically mediated due to vasomotor nephropathy Chronic kidney disease Peripheral vascular disease status post right [id number] amputation 6 months ago Poorly controlled type 2 diabetes Sepsis Hypertension Mixed hyperlipidemia Polysubstance use disorder Diabetic neuropathy -? Suicidal ideation -septic bursitis with Staphylococcus aureus -septic shock Plan: -events: H&H stable. Minimal gastric secretions. Patient became hypothermic -start tube feeding with Nepro -continue vasopressor therapy to keep map greater than 65 mmHg -bronchodilators -antibiotics: Continue Rocephin and clindamycin, add Florastor -potassium replacement -continue PPI Total time spent with patient discussing and formulating plan of care: 35 minutes. Plan discussed with: Other (nursing staff) Date of Service: Mar 16, 2025 Billing Provider: PERRI REIS DO Common Visit Codes: [id number] CARE 30-74 MIN, [id number] CARE-EACH +30MIN PERRI REIS DO Mar 17, 2025 08:24
[2025-03-17] MEDS: DexAMETHasone SOD PHOS 10MG/1ML VIAL INJ IV SCH (10:15)
--- NOTE | 2025-03-17 10:16 | DVHPN2 ---
Subjective Intubated and sedated Reviewed: Care Plan, H&P, Labs, Medications, Previous Orders, Radiology, Other (Consultations) Changes from previous H/P or p: No Changes General: Per HPI Objective Vitals Vital Signs Date Time Temp Pulse Resp B/P (MAP) Pulse Ox O2 Delivery O2 Flow Rate FiO2 03/17/25 08:00 97.1 92 24 139/72 (94) 99 97.1 03/17/25 07:44 30 03/17/25 07:30 Mechanical Ventilator+ Intake/Output Intake and Output 03/17/25 07:00 Intake Total 1159.0 ml Output Total 2225 ml Balance -1066.0 ml Intake Oral 90 ml IV Total 469.0 ml Tube Feeding 360 ml Other 240 ml Output Urine Total 2225 ml Exam Assess patient will sitting in her wheelchair. General Appearance: Alert, Oriented X3, Cooperative, No acute distress HEENT: Atraumatic, PERRLA, Other (Tongue swelling) Lungs: Clear to auscultation, Normal air movement Cardiovascular: Regular rate, Normal S1, Normal S2 Abdomen: Normal bowel sounds, Soft, No tenderness Extremities: No edema, Normal pulses, Other (Less redness and swelling to left lower extremity) Neuro: Normal speech, Other Skin: Wounds (See nurse notes and pictures) Psych/Mental Status: Mental status NL, Mood NL Medications Current Medications Medications Dose Ordered Sig/John Route Start Time Stop Time Status Last Admin Dose Admin Ondansetron HCl 4 mg Q4HP PRN IV 02/19/25 13:45 03/06/25 02:55 4 MG Docusate Sodium 100 mg BIDPRN PRN PO 02/19/25 13:45 03/04/25 17:41 100 MG Acetaminophen 650 mg Q6HP PRN PO 02/19/25 13:45 03/09/25 21:36 650 MG Nitroglycerin 0.4 mg Q5MINP PRN SL 02/19/25 13:45 Diagnostic Test (Pha) 1 strip ACHS 02/19/25 17:00 03/17/25 06:42 1 STRIP Dextrose 50 ml UD PRN IV 02/19/25 15:45 03/14/25 21:04 50 ML Duloxetine HCl 30 mg DAILY PO 02/20/25 10:00 03/17/25 09:41 30 MG Potassium Chloride 100 ml @ 50 mls/hr Q2H IV 02/19/25 23:15 02/20/25 05:14 Cancel Potassium Chloride 100 ml @ 50 mls/hr Q2H IV 02/20/25 07:15 02/20/25 11:14 UNV Lorazepam 1 mg Q8HPRN PRN PO 02/23/25 14:15 02/28/25 21:38 1 MG Insulin Human Regular ACHS SC 02/28/25 17:00 03/17/25 06:58 3 UNITS Gabapentin 100 mg TID PO 03/02/25 14:00 03/17/25 06:02 100 MG Calcium Acetate 1,334 mg TIDWMEALS PO 03/04/25 12:00 03/16/25 17:06 1,334 MG Ergocalciferol 50,000 unit Q7D PO 03/04/25 11:45 03/04/25 17:41 50,000 UNIT Zirconium Oxide 10 gm TID PO 03/07/25 14:00 Cancel Sodium Bicarbonate 50 ml/ Sodium Chloride 1,050 ml @ 100 mls/hr [id number] IV 03/07/25 11:45 Cancel Acetaminophen/ Hydrocodone Bitart 1 tab Q6HP PRN PO 03/09/25 13:30 03/12/25 22:01 1 TAB Hydralazine HCl 10 mg Q6HPRN PRN IV 03/11/25 15:30 Guaifenesin 200 mg Q4HP PRN PO 03/12/25 20:15 03/12/25 22:00 200 MG Norepinephrine Bitartrate 250 ml @ 3.75 mls/hr Q24H IV 03/13/25 02:00 03/14/25 13:44 3.75 MLS/HR Midazolam HCl 50 ml @ 1 mls/hr Q24H IV 03/13/25 02:00 03/17/25 03:14 4 MLS/HR Fentanyl Citrate 250 ml @ 2.5 mls/hr Q24H IV 03/13/25 02:30 03/16/25 08:02 7.5 MLS/HR Ceftriaxone Sodium 50 ml @ 100 mls/hr Q24H IV 03/13/25 04:00 03/17/25 03:52 100 MLS/HR Clindamycin Phosphate 50 ml @ 50 mls/hr Q8HR IV 03/13/25 06:00 03/17/25 06:02 50 MLS/HR Pantoprazole Sodium 40 mg BID IV 03/13/25 10:00 03/16/25 22:31 40 MG Albuterol 2.5 mg Q6HR NEB 03/13/25 12:00 03/17/25 05:59 2.5 MG Ipratropium [place] 0.5 mg Q6HR NEB 03/13/25 12:00 03/17/25 05:59 0.5 MG Saccharomyces Boulardii 250 mg DAILY PO 03/14/25 10:00 03/17/25 09:41 250 MG Enteral Nutritional Formula 1,000 ml 30ML/HR GT 03/14/25 08:45 03/15/25 22:40 1,000 ML Laboratory Results Laboratory Tests 03/17/25 05:40 Chemistry Test 03/17/25 05:40 Calcium Level 8.6 mg/dL (8.7-10.4) L Magnesium Level 2.1 mg/dL (1.6-2.6) Phosphorus Level 7.1 mg/dL (2.4-5.1) H Urinalysis Test 02/19/25 17:27 03/04/25 05:00 Urine Color Colorless (Yellow) Urine Clarity Clear (Clear) Urine pH 6.5 (5.0-9.0) Urine Specific [place] 1.008 (1.001-1.035) Urine Protein 2+ (Negative) H Urine Ketones 1+ (Negative) H Urine Blood 1+ /uL (Negative) H Urine Nitrite Negative (Negative) Urine Bilirubin Negative (Negative) Urine Urobilinogen Normal mg/dL (Negative) Urine Leukocyte Esterase Negative /uL (Negative) Urine RBC 6 /hpf (0 - 4) Urine Microscopic WBC 2 /HPF (0-5) Urine Squamous Epithelial Cells Few /hpf (<5) Urine Bacteria None seen /hpf (None Seen) Urine Glucose 2+ mg/dL (Normal) H Urine Creatinine 25.51 mg/dL (30.0-125.0) L Urine Protein/Creatinine Ratio 14.00 Urine Sodium 80 mmol/L (40-220) Urine Total Protein 357.1 mg/dL (1-14) H Blood Gas Results Test 03/17/25 06:42 Arterial Blood pH 7.338 (7.350-7.450) FiO2 % 30.0 Microbiology Microbiology Date/Time Source Procedure Growth Status 03/13/25 05:10 Blood Blood Culture - Preliminary NO GROWTH AFTER 72 HOURS OF INCUBATION. Resulted 03/13/25 03:17 Sputum Gram Stain - Final Complete 03/13/25 03:17 Respiratory Culture - Final Presumptive Dionna albicans Complete 03/06/25 14:37 Knee Left Gram Stain - Final Complete 03/06/25 14:37 Knee Left Anaerobic Culture - Final Complete 03/06/25 14:37 Aerobic Culture - Final Staphylococcus aureus Complete 03/04/25 13:29 Aspirate Gram Stain - Final Complete 03/04/25 13:29 Body Fluid Culture - Final Staphylococcus aureus Complete 02/19/25 17:27 Urine - [place] Urine Culture - Final Complete Labs and/or images reviewed: Labs reviewed by me, Image(s) reviewed by me Assessment/Plan Assessment/Plan Impression: Multiple acute/subacute strokes Left lower extremity cellulitis Rule out left septic knee Hypokalemia Acute kidney injury likely hemodynamically mediated due to vasomotor nephropathy Chronic kidney disease Peripheral vascular disease status post right [id number] amputation 6 months ago Poorly controlled type 2 diabetes Sepsis Hypertension Mixed hyperlipidemia Polysubstance use disorder Diabetic neuropathy -? Suicidal ideation -septic bursitis with Staphylococcus aureus -septic shock Angioedema of the tongue Plan: -events: No events overnight. Patient tongue swelling over the past several days. Continues to be on 30% FiO2. Start antihistamine, steroid. -continue Nepro -continue vasopressor therapy to keep map greater than 65 mmHg -bronchodilators -antibiotics: Continue Rocephin and clindamycin, add Florastor -potassium replacement -continue PPI -repeat labs, chest x-ray, ABG in a.m. Total time spent with patient discussing and formulating plan of care: 35 minutes. This medical document was created using an electronic medical record system with [employer] dictation system. Although this document has been carefully reviewed, there may still be some phonetic and typographical errors. These areas are purely typographical due to imperfections of the software programs, and do not reflect any compromise in the patient's medical care. Plan discussed with: Patient, Other (rn) My Orders Orders - JUSTIN BONILLA NP Procedure Category Date Status Time Dexamethasone PHA 03/17/25 Logged Injection (Decadron 10:15 Basic Metabolic Panel LAB 03/18/25 Verified 05:00 Basic Metabolic Panel LAB 03/19/25 Verified 05:00 Basic Metabolic Panel LAB 03/20/25 Verified 05:00 Famotidine Injection PHA 03/17/25 Transmitted (Pepcid Injection) 10:15 Diphenhdramine PHA 03/17/25 Transmitted Injection (Benadryl 10:15 Date of Service: Mar 17, 2025 Billing Provider: JUSTIN BONILLA NP Common Visit Codes: [id number] CARE 30-74 MIN JUSTIN BONILLA NP Mar 17, 2025 10:16
--- NOTE | 2025-03-17 10:46 | DVHPN2 ---
Progress Note - Dictate Date Seen: Mar 17, 2025 Medical Necessity Reason Pt with a Central, PICC or Fol: Yes The following are medically ne: Acosta Catheter Reason for acosta catheter: Strict I&O Subjective Mr. Kaur is a 54 years old right-handed female with a history of hypertension, diabetes, dyslipidemia, anxiety, GERD, osteo myelitis status post right BKA, she came to the [facility] on 02/19/25 with a chief complaint of general weakness. He was transferred/ICU on 03/13/25 for ALOC, nasal bleeding and intubation I have seen and examined the patient, I have talked to her nurse, she was respond to light touch stimuli, there was some resistance when I tried to open her eyes. I noticed spontaneous right leg movement Psychiatry consultation, 02/26/25: 1:1 sitter. Transferred to inpatient psychiatric facility. Cymbalta 30 mg b.i.d. H/H looks fine Fentanyl 50 mcg/hour, Versed 2 mg/hour ABG, 03/13/2025: Unremarkable UDS, 02/19/2025: Cannabinoids Plasma alcohol, 02/19/2025: Three Urinalysis, 02/19, : WBC: 2, urine leukocyte esterase WBC/HB/PLT/MCV, 02/20/2025: 21.9/10.9/398/83.1, 03/13/2025: 11.7/6.5/424/85.4 K, 02/19/2025: 1.7, 02/20/2025: 2.1 BUN/CR, 02/20/2025: 33/2.03, 03/13/2025: 51.93 HGB A1c, 06/03/2024: 13.1 Liver function tests, 02/20/2025: Unremarkable TG/HDL/LDL/HDL, 04/11/2024: 180/238/164/43 MAGALIS, 02/21/2025: 1. Technically good study. Sinus rhythm. 2. Left atrial enlargement. 3. Number Valves appear to be structurally normal. 4. Ventricular systolic function is preserved at 60% with normal RV function. 5. Doppler reveals mild TR. No significant mitral or aortic insufficiency. No atrial septal or ventricular septal defects 6. No masses or vegetations discernible. 7. The atrial appendage looks clean, no masses. No atrial or ventricular septal defects as noted. No abnormal shunting. Bubble study was negative 8. The valves appear to be structurally normal. No vegetations or signs of emboli present. Carotid Doppler, 02/20/2025: No hemodynamically significant stenosis noted in the right carotid system. No hemodynamically significant stenosis noted in the left carotid system. CT head, : Small age-indeterminate infarct extending from the right jorge radiata into the right basal ganglia. Further evaluation with MRI brain with diffusion-weighted imaging is recommended. CT head, , No acute intracranial abnormality. Multiple subacute bilateral lacunar infarcts as seen on prior MRI. MRI head, 02/19/2025: 1. There are multiple small foci of acute to subacute infarct in the right jorge radiata and right basal ganglia. There are also multiple small acute to subacute infarcts in the left anteromedial frontal lobe and in the left jorge radiata and left basal ganglia. There is no evidence of acute hemorrhage MRI left foot, 02/22/25: Moderate dorsal subcutaneous edema. No evidence of osteomyelitis. No drainable fluid collection noted. Moderate myositis. vital signs Vital Sign Date Time Temp Pulse Resp B/P (MAP) Pulse Ox O2 Delivery O2 Flow Rate FiO2 03/17/25 08:00 97.1 92 24 139/72 (94) 99 97.1 03/17/25 07:44 30 03/17/25 07:30 Mechanical Ventilator+ Total Intake and Output 03/16/25 03/16/25 03/17/25 15:00 23:00 07:00 Intake Total 260.0 ml 730.0 ml 226.0 ml Output Total 375 ml 1850 ml Balance 260.0 ml 355.0 ml -1624.0 ml medications Current Medications Medications Dose Ordered Sig/John Route Start Time Stop Time Status Last Admin Dose Admin Ondansetron HCl 4 mg Q4HP PRN IV 02/19/25 13:45 03/06/25 02:55 4 MG Docusate Sodium 100 mg BIDPRN PRN PO 02/19/25 13:45 03/04/25 17:41 100 MG Acetaminophen 650 mg Q6HP PRN PO 02/19/25 13:45 03/09/25 21:36 650 MG Nitroglycerin 0.4 mg Q5MINP PRN SL 02/19/25 13:45 Diagnostic Test (Pha) 1 strip ACHS 02/19/25 17:00 03/17/25 06:42 1 STRIP Dextrose 50 ml UD PRN IV 02/19/25 15:45 03/14/25 21:04 50 ML Duloxetine HCl 30 mg DAILY PO 02/20/25 10:00 03/17/25 09:41 30 MG Potassium Chloride 100 ml @ 50 mls/hr Q2H IV 02/19/25 23:15 02/20/25 05:14 Cancel Potassium Chloride 100 ml @ 50 mls/hr Q2H IV 02/20/25 07:15 02/20/25 11:14 UNV Lorazepam 1 mg Q8HPRN PRN PO 02/23/25 14:15 02/28/25 21:38 1 MG Insulin Human Regular ACHS SC 02/28/25 17:00 03/17/25 06:58 3 UNITS Gabapentin 100 mg TID PO 03/02/25 14:00 03/17/25 06:02 100 MG Calcium Acetate 1,334 mg TIDWMEALS PO 03/04/25 12:00 03/16/25 17:06 1,334 MG Ergocalciferol 50,000 unit Q7D PO 03/04/25 11:45 03/04/25 17:41 50,000 UNIT Zirconium Oxide 10 gm TID PO 03/07/25 14:00 Cancel Sodium Bicarbonate 50 ml/ Sodium Chloride 1,050 ml @ 100 mls/hr [id number] IV 03/07/25 11:45 Cancel Acetaminophen/ Hydrocodone Bitart 1 tab Q6HP PRN PO 03/09/25 13:30 03/12/25 22:01 1 TAB Hydralazine HCl 10 mg Q6HPRN PRN IV 03/11/25 15:30 Guaifenesin 200 mg Q4HP PRN PO 03/12/25 20:15 03/12/25 22:00 200 MG Norepinephrine Bitartrate 250 ml @ 3.75 mls/hr Q24H IV 03/13/25 02:00 03/14/25 13:44 3.75 MLS/HR Midazolam HCl 50 ml @ 1 mls/hr Q24H IV 03/13/25 02:00 03/17/25 03:14 4 MLS/HR Fentanyl Citrate 250 ml @ 2.5 mls/hr Q24H IV 03/13/25 02:30 03/16/25 08:02 7.5 MLS/HR Ceftriaxone Sodium 50 ml @ 100 mls/hr Q24H IV 03/13/25 04:00 03/17/25 03:52 100 MLS/HR Clindamycin Phosphate 50 ml @ 50 mls/hr Q8HR IV 03/13/25 06:00 03/17/25 06:02 50 MLS/HR Pantoprazole Sodium 40 mg BID IV 03/13/25 10:00 03/17/25 10:24 40 MG Albuterol 2.5 mg Q6HR NEB 03/13/25 12:00 03/17/25 05:59 2.5 MG Ipratropium [place] 0.5 mg Q6HR NEB 03/13/25 12:00 03/17/25 05:59 0.5 MG Saccharomyces Boulardii 250 mg DAILY PO 03/14/25 10:00 03/17/25 09:41 250 MG Enteral Nutritional Formula 1,000 ml 30ML/HR GT 03/14/25 08:45 03/15/25 22:40 1,000 ML Dexamethasone Sodium Phosphate 6 mg Q15MP IV 03/17/25 10:15 UNV objective The patient is well-nourished and well-developed with no distress. The patient is intubated MUSCULOSKELETAL EXAM: Status post right BKA MENTAL STATUS: Subjective CRANIAL NERVES: Pupils are equal, round and reactive, small. There are corneal reflexes and doll's eyes phenomenon. No signs of facial weakness. There are no gagging or coughing reflexes SENSATION: No responses to pain stimuli. MOTOR: Normal tone in the upper and lower extremity. Normal muscle bulk. No fasciculations. No spontaneous movement. REFLEXES: Deep tendon reflexes are symmetrical. No pathological reflexes. CEREBELLAR/COORDINATION: Deferred GAIT/STATION: deferred. laboratory and microbiology Laboratory Tests 03/17/25 05:40 Test 03/17/25 05:40 Range/Units Serum Glucose 169 H 74-106 mg/dL Problem List Acute respiratory failure Excessive nasal bleeding Come Metabolic encephalopathy Hypoxic encephalopathy Toxic encephalopathy General weakness Multiple acute/subacute strokes Status post right BKA Depression ? Waking up Assessment/Plan Monitoring Supportive treatment EEG ICU Stabilize vitals Respiratory support/vent management Oxygen Antibiotics Aspirin 81 mg daily (HOLD) Cymbalta 30 mg b.i.d. DVT prophylaxis/SCD Quit tobacco smoking completely More recommendation per clinical course This medical document was created using an electronic medical record system with [employer] dictation system. Although this document has been carefully reviewed, there may still be some phonetic and typographical errors. These areas are purely typographical due to imperfections of the software programs, and do not reflect any compromise in the patient's medical care. Prognosis guarded Dietary Evaluation Review Comments: 1) Esau 1 pk BID 2) Refer Refuse Collector on DC 3) Continue current plan of care Expected Outcomes/Goals: Pt will meet >75% estimated needs Fu 3-5 days Plan discussed with: Other NEELA RUEDA MD Mar 17, 2025 10:46
[2025-03-17] MEDS: FAMOTIDINE (10MG/ML) 2ML VL IV ONE (11:10)
[2025-03-17] MEDS: diphenhdrAMINE HCL 50 MG/1 ML VL IV ONE (11:11)
--- NOTE | 2025-03-17 23:24 | DVHPN2 ---
Progress Note - Dictate Date Seen: Mar 17, 2025 Medical Necessity Reason Pt with a Central, PICC or Fol: Yes The following are medically ne: Acosta Catheter Reason for acosta catheter: Strict I&O Subjective Patient was seen and evaluated in follow up in the ICU. Patient is intubated and sedated on ventilator. 30% FiO2. The patient responds to light touch stimuli. Chest x-ray shows bilateral airspace disease similar to prior study. HGB 8.1, HCT 24, BUN 57, Tree Inspector 2.53. vital signs Vital Sign Date Time Temp Pulse Resp B/P (MAP) Pulse Ox O2 Delivery O2 Flow Rate FiO2 03/17/25 22:12 89 24 141/76 (97) 100 30 03/17/25 22:00 Mechanical Ventilator+ 03/17/25 20:00 97.6 97.6 Total Intake and Output 03/16/25 03/16/25 03/17/25 15:00 23:00 07:00 Intake Total 260.0 ml 730.0 ml 226.0 ml Output Total 375 ml 1850 ml Balance 260.0 ml 355.0 ml -1624.0 ml medications Current Medications Medications Dose Ordered Sig/John Route Start Time Stop Time Status Last Admin Dose Admin Ondansetron HCl 4 mg Q4HP PRN IV 02/19/25 13:45 03/06/25 02:55 4 MG Docusate Sodium 100 mg BIDPRN PRN PO 02/19/25 13:45 03/04/25 17:41 100 MG Acetaminophen 650 mg Q6HP PRN PO 02/19/25 13:45 03/09/25 21:36 650 MG Nitroglycerin 0.4 mg Q5MINP PRN SL 02/19/25 13:45 Diagnostic Test (Pha) 1 strip ACHS 02/19/25 17:00 03/17/25 21:48 1 STRIP Dextrose 50 ml UD PRN IV 02/19/25 15:45 03/14/25 21:04 50 ML Duloxetine HCl 30 mg DAILY PO 02/20/25 10:00 03/17/25 09:41 30 MG Potassium Chloride 100 ml @ 50 mls/hr Q2H IV 02/19/25 23:15 02/20/25 05:14 Cancel Potassium Chloride 100 ml @ 50 mls/hr Q2H IV 02/20/25 07:15 02/20/25 11:14 UNV Lorazepam 1 mg Q8HPRN PRN PO 02/23/25 14:15 02/28/25 21:38 1 MG Insulin Human Regular ACHS SC 02/28/25 17:00 03/17/25 21:48 3 UNITS Gabapentin 100 mg TID PO 03/02/25 14:00 03/17/25 21:48 100 MG Calcium Acetate 1,334 mg TIDWMEALS PO 03/04/25 12:00 03/17/25 17:38 1,334 MG Ergocalciferol 50,000 unit Q7D PO 03/04/25 11:45 03/04/25 17:41 50,000 UNIT Zirconium Oxide 10 gm TID PO 03/07/25 14:00 Cancel Sodium Bicarbonate 50 ml/ Sodium Chloride 1,050 ml @ 100 mls/hr [id number] IV 03/07/25 11:45 Cancel Acetaminophen/ Hydrocodone Bitart 1 tab Q6HP PRN PO 03/09/25 13:30 03/12/25 22:01 1 TAB Hydralazine HCl 10 mg Q6HPRN PRN IV 03/11/25 15:30 Guaifenesin 200 mg Q4HP PRN PO 03/12/25 20:15 03/12/25 22:00 200 MG Norepinephrine Bitartrate 250 ml @ 3.75 mls/hr Q24H IV 03/13/25 02:00 03/14/25 13:44 3.75 MLS/HR Midazolam HCl 50 ml @ 1 mls/hr Q24H IV 03/13/25 02:00 03/17/25 03:14 4 MLS/HR Fentanyl Citrate 250 ml @ 2.5 mls/hr Q24H IV 03/13/25 02:30 03/17/25 17:07 7.5 MLS/HR Ceftriaxone Sodium 50 ml @ 100 mls/hr Q24H IV 03/13/25 04:00 03/17/25 03:52 100 MLS/HR Clindamycin Phosphate 50 ml @ 50 mls/hr Q8HR IV 03/13/25 06:00 03/17/25 22:28 50 MLS/HR Pantoprazole Sodium 40 mg BID IV 03/13/25 10:00 03/17/25 21:48 40 MG Albuterol 2.5 mg Q6HR NEB 03/13/25 12:00 03/17/25 18:26 2.5 MG Ipratropium [place] 0.5 mg Q6HR NEB 03/13/25 12:00 03/17/25 18:26 0.5 MG Saccharomyces Boulardii 250 mg DAILY PO 03/14/25 10:00 03/17/25 09:41 250 MG Enteral Nutritional Formula 1,000 ml 30ML/HR GT 03/14/25 08:45 03/17/25 17:38 1,000 ML Dexamethasone Sodium Phosphate 6 mg Q15MP IV 03/17/25 10:15 03/17/25 10:15 6 MG objective GENERAL: Intubated on ventilator. EYES: PERRL, EOMI. Anicteric. HENT: Moist mucous membranes. LUNGS: Decreased breath sounds. CARDIOVASCULAR: Regular rate and rhythm. ABDOMEN: Soft, non-tender and non-distended. EXTREMITIES: No edema. SKIN: Warm, dry. laboratory and microbiology Laboratory Tests 03/17/25 05:40 Test 03/17/25 05:40 Range/Units Serum Glucose 169 H 74-106 mg/dL Problem List Multiple acute/subacute strokes. Hypokalemia. Acute kidney injury. Hypertension, newly diagnosed. Insulin-dependent diabetes mellitus. Status post right BKA. Dyslipidemia. Polysubstance use disorder. Left lower extremity cellulitis. Peripheral vascular disease status post right thhlz-frk-[id number] amputation 6 months ago. Sepsis. Diabetic neuropathy. Assessment/Plan Continued all current supportive medical care. [place] for pain management. IV antibiotics as ordered. IV Hydralazine for SBP >160. GI prophylactics. Vasopressors for hemodynamic support. Additional plan as per the hospital course. Critical care time of 45 minutes provided to include time spent evaluation of patient at bedside, when appropriate patient/family education for diagnosis, treatment plan, review of pertinent medical information and discussion of care with specialty providers and PCP. Mechanical ventilator parameters, treatment and adjustments have personally been reviewed by me and treatment plan by activities director scouting has also been reviewed. Dietary Evaluation Review Comments: 1) Esau 1 pk BID 2) Refer Pay Clerk on DC 3) Continue current plan of care Expected Outcomes/Goals: Pt will meet >75% estimated needs Fu 3-5 days Plan discussed with: YANIRA Jorge MD Mar 17, 2025 23:24
[2025-03-18] VITALS (100 sets, daily range): BP systolic 113–166; BP diastolic 67–93; PULSE 76–92; RESP 21–26; TEMP 97.7–98.3; O2SAT 99–100
[2025-03-18 06:16] LABS: Chloride 106 mmol/L (98-107); Potassium 3.5 mmol/L (3.5-5.1); Sodium 139 mmol/L (136-145)
[2025-03-18 06:18] LABS: Anion Gap 9 (5-15); Carbon Dioxide 24 mmol/L (20-31)
[2025-03-18 06:23] LABS: BUN/Creatinine Ratio 25.1 (10.0-20.0)
[2025-03-18 06:24] LABS: Blood Urea Nitrogen 59 mg/dL (9-23); Calcium 8.4 mg/dL (8.7-10.4); Glucose 151 mg/dL (74-106)
[2025-03-18 08:05] LABS: Base Excess -2.2 mmol/L (-2.0-3.0)
--- NOTE | 2025-03-18 09:17 | DVHPN2 ---
Subjective Intubated and sedated Reviewed: Care Plan, H&P, Labs, Medications, Previous Orders, Radiology, Other (Consultations) Changes from previous H/P or p: No Changes General: Per HPI Objective Vitals Vital Signs Date Time Temp Pulse Resp B/P (MAP) Pulse Ox O2 Delivery O2 Flow Rate FiO2 03/18/25 08:00 98.2 88 24 128/72 (90) 100 98.2 03/18/25 06:44 30 03/18/25 06:00 Mechanical Ventilator+ Intake/Output Intake and Output 03/18/25 07:00 Intake Total 601.5 ml Output Total 1275 ml Balance -673.5 ml Intake Oral 90 ml IV Total 411.5 ml Tube Feeding 100 ml Output Urine Total 1275 ml # Bowel Movements 1 Exam Assess patient will sitting in her wheelchair. General Appearance: Alert, Oriented X3, Cooperative, No acute distress HEENT: Atraumatic, PERRLA, Other (Tongue swelling. Negative air leak around ET tube) Lungs: Clear to auscultation, Normal air movement Cardiovascular: Regular rate, Normal S1, Normal S2 Abdomen: Normal bowel sounds, Soft, No tenderness Extremities: No edema, Normal pulses, Other (Less redness and swelling to left lower extremity) Neuro: Normal speech, Other Skin: Wounds (See nurse notes and pictures) Psych/Mental Status: Mental status NL, Mood NL Medications Current Medications Medications Dose Ordered Sig/John Route Start Time Stop Time Status Last Admin Dose Admin Ondansetron HCl 4 mg Q4HP PRN IV 02/19/25 13:45 03/06/25 02:55 4 MG Docusate Sodium 100 mg BIDPRN PRN PO 02/19/25 13:45 03/04/25 17:41 100 MG Acetaminophen 650 mg Q6HP PRN PO 02/19/25 13:45 03/09/25 21:36 650 MG Nitroglycerin 0.4 mg Q5MINP PRN SL 02/19/25 13:45 Diagnostic Test (Pha) 1 strip ACHS 02/19/25 17:00 03/18/25 06:34 1 STRIP Dextrose 50 ml UD PRN IV 02/19/25 15:45 03/14/25 21:04 50 ML Duloxetine HCl 30 mg DAILY PO 02/20/25 10:00 03/17/25 09:41 30 MG Potassium Chloride 100 ml @ 50 mls/hr Q2H IV 02/19/25 23:15 02/20/25 05:14 Cancel Potassium Chloride 100 ml @ 50 mls/hr Q2H IV 02/20/25 07:15 02/20/25 11:14 UNV Lorazepam 1 mg Q8HPRN PRN PO 02/23/25 14:15 02/28/25 21:38 1 MG Insulin Human Regular ACHS SC 02/28/25 17:00 03/18/25 06:35 2 UNITS Gabapentin 100 mg TID PO 03/02/25 14:00 03/18/25 05:37 100 MG Calcium Acetate 1,334 mg TIDWMEALS PO 03/04/25 12:00 03/17/25 17:38 1,334 MG Ergocalciferol 50,000 unit Q7D PO 03/04/25 11:45 03/04/25 17:41 50,000 UNIT Zirconium Oxide 10 gm TID PO 03/07/25 14:00 Cancel Sodium Bicarbonate 50 ml/ Sodium Chloride 1,050 ml @ 100 mls/hr [id number] IV 03/07/25 11:45 Cancel Acetaminophen/ Hydrocodone Bitart 1 tab Q6HP PRN PO 03/09/25 13:30 03/12/25 22:01 1 TAB Hydralazine HCl 10 mg Q6HPRN PRN IV 03/11/25 15:30 Guaifenesin 200 mg Q4HP PRN PO 03/12/25 20:15 03/12/25 22:00 200 MG Norepinephrine Bitartrate 250 ml @ 3.75 mls/hr Q24H IV 03/13/25 02:00 03/14/25 13:44 3.75 MLS/HR Midazolam HCl 50 ml @ 1 mls/hr Q24H IV 03/13/25 02:00 03/18/25 00:41 4 MLS/HR Fentanyl Citrate 250 ml @ 2.5 mls/hr Q24H IV 03/13/25 02:30 03/17/25 17:07 7.5 MLS/HR Ceftriaxone Sodium 50 ml @ 100 mls/hr Q24H IV 03/13/25 04:00 03/18/25 03:52 100 MLS/HR Clindamycin Phosphate 50 ml @ 50 mls/hr Q8HR IV 03/13/25 06:00 03/18/25 05:41 50 MLS/HR Pantoprazole Sodium 40 mg BID IV 03/13/25 10:00 03/17/25 21:48 40 MG Albuterol 2.5 mg Q6HR NEB 03/13/25 12:00 03/18/25 06:44 2.5 MG Ipratropium [place] 0.5 mg Q6HR NEB 03/13/25 12:00 03/18/25 06:44 0.5 MG Saccharomyces Boulardii 250 mg DAILY PO 03/14/25 10:00 03/17/25 09:41 250 MG Enteral Nutritional Formula 1,000 ml 30ML/HR GT 03/14/25 08:45 03/17/25 17:38 1,000 ML Dexamethasone Sodium Phosphate 6 mg Q15MP IV 03/17/25 10:15 03/17/25 10:15 6 MG Laboratory Results Laboratory Tests 03/17/25 05:40 03/18/25 05:22 Chemistry Test 03/18/25 05:22 Calcium Level 8.4 mg/dL (8.7-10.4) L Urinalysis Test 02/19/25 17:27 03/04/25 05:00 Urine Color Colorless (Yellow) Urine Clarity Clear (Clear) Urine pH 6.5 (5.0-9.0) Urine Specific Omega 1.008 (1.001-1.035) Urine Protein 2+ (Negative) H Urine Ketones 1+ (Negative) H Urine Blood 1+ /uL (Negative) H Urine Nitrite Negative (Negative) Urine Bilirubin Negative (Negative) Urine Urobilinogen Normal mg/dL (Negative) Urine Leukocyte Esterase Negative /uL (Negative) Urine RBC 6 /hpf (0 - 4) Urine Microscopic WBC 2 /HPF (0-5) Urine Squamous Epithelial Cells Few /hpf (<5) Urine Bacteria None seen /hpf (None Seen) Urine Glucose 2+ mg/dL (Normal) H Urine Creatinine 25.51 mg/dL (30.0-125.0) L Urine Protein/Creatinine Ratio 14.00 Urine Sodium 80 mmol/L (40-220) Urine Total Protein 357.1 mg/dL (1-14) H Blood Gas Results Test 03/18/25 07:22 Arterial Blood pH 7.385 (7.350-7.450) FiO2 % 30.0 Microbiology Microbiology Date/Time Source Procedure Growth Status 03/13/25 05:10 Blood Blood Culture - Preliminary NO GROWTH AFTER 72 HOURS OF INCUBATION. Resulted 03/13/25 03:17 Sputum Gram Stain - Final Complete 03/13/25 03:17 Respiratory Culture - Final Presumptive Dionna albicans Complete 03/06/25 14:37 Knee Left Gram Stain - Final Complete 03/06/25 14:37 Knee Left Anaerobic Culture - Final Complete 03/06/25 14:37 Aerobic Culture - Final Staphylococcus aureus Complete 03/04/25 13:29 Aspirate Gram Stain - Final Complete 03/04/25 13:29 Body Fluid Culture - Final Staphylococcus aureus Complete 02/19/25 17:27 Urine - [place] Urine Culture - Final Complete Labs and/or images reviewed: Labs reviewed by me, Image(s) reviewed by me Assessment/Plan Assessment/Plan Impression: Multiple acute/subacute strokes Left lower extremity cellulitis Rule out left septic knee Hypokalemia Acute kidney injury likely hemodynamically mediated due to vasomotor nephropathy Chronic kidney disease Peripheral vascular disease status post right [id number] amputation 6 months ago Poorly controlled type 2 diabetes Sepsis Hypertension Mixed hyperlipidemia Polysubstance use disorder Diabetic neuropathy -? Suicidal ideation -septic bursitis with Staphylococcus aureus -septic shock Angioedema of the tongue Plan: -events: No events overnight. Does not tongue swelling, with improvement noted. Air leak negative today. Continue Decadron. -PUD prophylaxis -continue Nepro -continue vasopressor therapy to keep map greater than 65 mmHg, currently off -bronchodilators -antibiotics: Continue Rocephin and clindamycin, add Florastor -pulse dose of Lasix -continue PPI -repeat labs, chest x-ray, ABG in a.m. Total time spent with patient discussing and formulating plan of care: 35 minutes. This medical document was created using an electronic medical record system with [employer] dictation system. Although this document has been carefully reviewed, there may still be some phonetic and typographical errors. These areas are purely typographical due to imperfections of the software programs, and do not reflect any compromise in the patient's medical care. Plan discussed with: Patient, Other (RN) My Orders Orders - JSUTIN BONILLA [employer] Procedure Category Date Status Time Dexamethasone PHA 03/17/25 In Process Injection (Decadron 10:15 Basic Metabolic Panel LAB 03/19/25 Verified 05:00 Basic Metabolic Panel LAB 03/20/25 Verified 05:00 Enoxaparin Sodium PHA 03/18/25 Transmitted (Lovenox) 10:00 Dexamethasone PHA 03/18/25 Transmitted Injection (Decadron 10:00 Furosemide Injection PHA 03/18/25 Transmitted (Lasix Injection) 09:15 Date of Service: Mar 18, 2025 Billing Provider: JUSTIN BONILLA NP Common Visit Codes: [id number] CARE 30-74 MIN JUSTIN BONILLA NP Mar 18, 2025 09:17
[2025-03-18] MEDS: FUROSEMIDE 20 MG/2 ML VIAL IV ONE (09:57)
[2025-03-18] MEDS: DexAMETHasone SOD PHOS 10MG/1ML VIAL INJ IV SCH (09:57)
[2025-03-18] MEDS: ENOXAPARIN SOD 30 MG/0.3 ML SYRINGE SC SCH (09:58)
[2025-03-18] MEDS: hydrALAZINE HCL 20 MG/ML VL IV PRN (20:48)
--- NOTE | 2025-03-18 22:41 | DVHPN2 ---
Progress Note - Dictate Date Seen: Mar 18, 2025 Medical Necessity Reason Pt with a Central, PICC or Fol: Yes The following are medically ne: Acosta Catheter Reason for acosta catheter: Strict I&O Subjective Patient was seen and evaluated in follow up in the ICU. Patient is intubated and sedated on ventilator. 30% FiO2. Patient has improvement in tongue swelling. Air leak negative today. Patient is continued on vasopressors. BUN 59, Corporate Legal Manager 2.35. vital signs Vital Sign Date Time Temp Pulse Resp B/P (MAP) Pulse Ox O2 Delivery O2 Flow Rate FiO2 03/18/25 20:48 166/93 03/18/25 20:15 82 24 100 03/18/25 20:10 30 03/18/25 20:00 Mechanical Ventilator+ 03/18/25 20:00 98.0 98.0 03/18/25 18:00 2 Total Intake and Output 03/17/25 03/17/25 03/18/25 15:00 23:00 07:00 Intake Total 122.0 ml 281.5 ml 212 ml Output Total 625 ml 650 ml Balance 122.0 ml -343.5 ml -438 ml medications Current Medications Medications Dose Ordered Sig/John Route Start Time Stop Time Status Last Admin Dose Admin Ondansetron HCl 4 mg Q4HP PRN IV 02/19/25 13:45 03/06/25 02:55 4 MG Docusate Sodium 100 mg BIDPRN PRN PO 02/19/25 13:45 03/04/25 17:41 100 MG Acetaminophen 650 mg Q6HP PRN PO 02/19/25 13:45 03/09/25 21:36 650 MG Nitroglycerin 0.4 mg Q5MINP PRN SL 02/19/25 13:45 Diagnostic Test (Pha) 1 strip ACHS 02/19/25 17:00 03/18/25 17:00 1 STRIP Dextrose 50 ml UD PRN IV 02/19/25 15:45 03/14/25 21:04 50 ML Duloxetine HCl 30 mg DAILY PO 02/20/25 10:00 03/18/25 09:57 30 MG Potassium Chloride 100 ml @ 50 mls/hr Q2H IV 02/19/25 23:15 02/20/25 05:14 Cancel Potassium Chloride 100 ml @ 50 mls/hr Q2H IV 02/20/25 07:15 02/20/25 11:14 UNV Lorazepam 1 mg Q8HPRN PRN PO 02/23/25 14:15 02/28/25 21:38 1 MG Insulin Human Regular ACHS SC 02/28/25 17:00 03/18/25 17:44 3 UNITS Gabapentin 100 mg TID PO 03/02/25 14:00 03/18/25 14:28 100 MG Calcium Acetate 1,334 mg TIDWMEALS PO 03/04/25 12:00 03/18/25 17:41 1,334 MG Ergocalciferol 50,000 unit Q7D PO 03/04/25 11:45 03/18/25 12:43 50,000 UNIT Zirconium Oxide 10 gm TID PO 03/07/25 14:00 Cancel Sodium Bicarbonate 50 ml/ Sodium Chloride 1,050 ml @ 100 mls/hr [id number] IV 03/07/25 11:45 Cancel Acetaminophen/ Hydrocodone Bitart 1 tab Q6HP PRN PO 03/09/25 13:30 03/12/25 22:01 1 TAB Hydralazine HCl 10 mg Q6HPRN PRN IV 03/11/25 15:30 03/18/25 20:48 10 MG Guaifenesin 200 mg Q4HP PRN PO 03/12/25 20:15 03/12/25 22:00 200 MG Norepinephrine Bitartrate 250 ml @ 3.75 mls/hr Q24H IV 03/13/25 02:00 03/14/25 13:44 3.75 MLS/HR Midazolam HCl 50 ml @ 1 mls/hr Q24H IV 03/13/25 02:00 03/18/25 10:01 4 MLS/HR Fentanyl Citrate 250 ml @ 2.5 mls/hr Q24H IV 03/13/25 02:30 03/18/25 16:30 10 MLS/HR Ceftriaxone Sodium 50 ml @ 100 mls/hr Q24H IV 03/13/25 04:00 03/18/25 03:52 100 MLS/HR Clindamycin Phosphate 50 ml @ 50 mls/hr Q8HR IV 03/13/25 06:00 03/18/25 14:28 50 MLS/HR Pantoprazole Sodium 40 mg BID IV 03/13/25 10:00 03/18/25 09:57 40 MG Albuterol 2.5 mg Q6HR NEB 03/13/25 12:00 03/18/25 19:32 2.5 MG Ipratropium [place] 0.5 mg Q6HR NEB 03/13/25 12:00 03/18/25 19:32 0.5 MG Saccharomyces Boulardii 250 mg DAILY PO 03/14/25 10:00 03/18/25 09:57 250 MG Enteral Nutritional Formula 1,000 ml 30ML/HR GT 03/14/25 08:45 03/17/25 17:38 1,000 ML Enoxaparin Sodium 30 mg DAILY SC 03/18/25 10:00 03/18/25 09:58 30 MG Dexamethasone Sodium Phosphate 6 mg BID IV 03/18/25 10:00 03/18/25 22:01 03/18/25 09:57 6 MG objective GENERAL: Intubated on ventilator. EYES: PERRL, EOMI. Anicteric. HENT: Moist mucous membranes. LUNGS: Decreased breath sounds. CARDIOVASCULAR: Regular rate and rhythm. ABDOMEN: Soft, non-tender and non-distended. EXTREMITIES: No edema. SKIN: Warm, dry. laboratory and microbiology Laboratory Tests 03/18/25 05:22 03/17/25 05:40 Test 03/18/25 05:22 Range/Units Serum Glucose 151 H 74-106 mg/dL Problem List Multiple acute/subacute strokes. Hypokalemia. Acute kidney injury. Hypertension, newly diagnosed. Insulin-dependent diabetes mellitus. Status post right BKA. Dyslipidemia. Polysubstance use disorder. Left lower extremity cellulitis. Peripheral vascular disease status post right [id number] amputation 6 months ago. Sepsis. Diabetic neuropathy. Assessment/Plan Continued all current supportive medical care. [place] for pain management. IV antibiotics as ordered. DVT and GI prophylactics. IV Hydralazine for SBP >160. Vasopressors for hemodynamic support. Additional plan as per the hospital course. Critical care time of 45 minutes provided to include time spent evaluation of patient at bedside, when appropriate patient/family education for diagnosis, treatment plan, review of pertinent medical information and discussion of care with specialty providers and PCP. Mechanical ventilator parameters, treatment and adjustments have personally been reviewed by me and treatment plan by contract manager has also been reviewed. Dietary Evaluation Review Comments: 1) [place] 1 pk BID 2) Refer Head Operator on DC 3) Continue current plan of care Expected Outcomes/Goals: Pt will meet >75% estimated needs Fu 3-5 days Plan discussed with: Other YANIRA WINN MD Mar 18, 2025 21:21
--- NOTE | 2025-03-18 22:49 | DVHPN2 ---
Progress Note - Dictate Date Seen: Mar 18, 2025 Medical Necessity Reason Pt with a Central, PICC or Fol: Yes The following are medically ne: Acosta Catheter Reason for acosta catheter: Strict I&O Subjective Mr. Kaur is a 54 years old right-handed female with a history of hypertension, diabetes, dyslipidemia, anxiety, GERD, osteo myelitis status post right BKA, she came to the [facility] on 02/19/25 with a chief complaint of general weakness. He was transferred/ICU on 03/13/25 for ALOC, nasal bleeding and intubation I have seen and examined the patient, I have talked to her nurse, with less sedation, the patient was moves excessively. At that time, she is passive responsive to touch stimuli. I noticed spontaneous right leg movement Psychiatry consultation, 02/26/25: 1:1 sitter. Transferred to inpatient psychiatric facility. Cymbalta 30 mg b.i.d. H/H looks fine Fentanyl 125 mcg/hour, Versed 5 mg/hour ABG, 03/13/2025: Unremarkable UDS, 02/19/2025: Cannabinoids Plasma alcohol, 02/19/2025: Three Urinalysis, 02/19, : WBC: 2, urine leukocyte esterase WBC/HB/PLT/MCV, 02/20/2025: 21.9/10.9/398/83.1, 03/13/2025: 11.7/6.5/424/85.4 K, 02/19/2025: 1.7, 02/20/2025: 2.1 BUN/CR, 02/20/2025: 33/2.03, 03/13/2025: 51.93 HGB A1c, 06/03/2024: 13.1 Liver function tests, 02/20/2025: Unremarkable TG/HDL/LDL/HDL, 04/11/2024: 180/238/164/43 MAGALIS, 02/21/2025: 1. Technically good study. Sinus rhythm. 2. Left atrial enlargement. 3. Number Valves appear to be structurally normal. 4. Ventricular systolic function is preserved at 60% with normal RV function. 5. Doppler reveals mild TR. No significant mitral or aortic insufficiency. No atrial septal or ventricular septal defects 6. No masses or vegetations discernible. 7. The atrial appendage looks clean, no masses. No atrial or ventricular septal defects as noted. No abnormal shunting. Bubble study was negative 8. The valves appear to be structurally normal. No vegetations or signs of emboli present. Carotid Doppler, 02/20/2025: No hemodynamically significant stenosis noted in the right carotid system. No hemodynamically significant stenosis noted in the left carotid system. CT head, : Small age-indeterminate infarct extending from the right jorge radiata into the right basal ganglia. Further evaluation with MRI brain with diffusion-weighted imaging is recommended. CT head, , No acute intracranial abnormality. Multiple subacute bilateral lacunar infarcts as seen on prior MRI. MRI head, 02/19/2025: 1. There are multiple small foci of acute to subacute infarct in the right jorge radiata and right basal ganglia. There are also multiple small acute to subacute infarcts in the left anteromedial frontal lobe and in the left jorge radiata and left basal ganglia. There is no evidence of acute hemorrhage MRI left foot, 02/22/25: Moderate dorsal subcutaneous edema. No evidence of osteomyelitis. No drainable fluid collection noted. Moderate myositis. vital signs Vital Sign Date Time Temp Pulse Resp B/P (MAP) Pulse Ox O2 Delivery O2 Flow Rate FiO2 03/18/25 20:48 166/93 03/18/25 20:15 82 24 100 03/18/25 20:10 30 03/18/25 20:00 Mechanical Ventilator+ 03/18/25 20:00 98.0 98.0 03/18/25 18:00 2 Total Intake and Output 03/17/25 03/17/25 03/18/25 15:00 23:00 07:00 Intake Total 122.0 ml 281.5 ml 212 ml Output Total 625 ml 650 ml Balance 122.0 ml -343.5 ml -438 ml medications Current Medications Medications Dose Ordered Sig/John Route Start Time Stop Time Status Last Admin Dose Admin Ondansetron HCl 4 mg Q4HP PRN IV 02/19/25 13:45 03/06/25 02:55 4 MG Docusate Sodium 100 mg BIDPRN PRN PO 02/19/25 13:45 03/04/25 17:41 100 MG Acetaminophen 650 mg Q6HP PRN PO 02/19/25 13:45 03/09/25 21:36 650 MG Nitroglycerin 0.4 mg Q5MINP PRN SL 02/19/25 13:45 Diagnostic Test (Pha) 1 strip ACHS 02/19/25 17:00 03/18/25 22:06 1 STRIP Dextrose 50 ml UD PRN IV 02/19/25 15:45 03/14/25 21:04 50 ML Duloxetine HCl 30 mg DAILY PO 02/20/25 10:00 03/18/25 09:57 30 MG Potassium Chloride 100 ml @ 50 mls/hr Q2H IV 02/19/25 23:15 02/20/25 05:14 Cancel Potassium Chloride 100 ml @ 50 mls/hr Q2H IV 02/20/25 07:15 02/20/25 11:14 UNV Lorazepam 1 mg Q8HPRN PRN PO 02/23/25 14:15 02/28/25 21:38 1 MG Insulin Human Regular ACHS SC 02/28/25 17:00 03/18/25 22:32 3 UNITS Gabapentin 100 mg TID PO 03/02/25 14:00 03/18/25 22:32 100 MG Calcium Acetate 1,334 mg TIDWMEALS PO 03/04/25 12:00 03/18/25 17:41 1,334 MG Ergocalciferol 50,000 unit Q7D PO 03/04/25 11:45 03/18/25 12:43 50,000 UNIT Zirconium Oxide 10 gm TID PO 03/07/25 14:00 Cancel Sodium Bicarbonate 50 ml/ Sodium Chloride 1,050 ml @ 100 mls/hr [id number] IV 03/07/25 11:45 Cancel Acetaminophen/ Hydrocodone Bitart 1 tab Q6HP PRN PO 03/09/25 13:30 03/12/25 22:01 1 TAB Hydralazine HCl 10 mg Q6HPRN PRN IV 03/11/25 15:30 03/18/25 20:48 10 MG Guaifenesin 200 mg Q4HP PRN PO 03/12/25 20:15 03/12/25 22:00 200 MG Norepinephrine Bitartrate 250 ml @ 3.75 mls/hr Q24H IV 03/13/25 02:00 03/14/25 13:44 3.75 MLS/HR Midazolam HCl 50 ml @ 1 mls/hr Q24H IV 03/13/25 02:00 03/18/25 10:01 4 MLS/HR Fentanyl Citrate 250 ml @ 2.5 mls/hr Q24H IV 03/13/25 02:30 03/18/25 16:30 10 MLS/HR Ceftriaxone Sodium 50 ml @ 100 mls/hr Q24H IV 03/13/25 04:00 03/18/25 03:52 100 MLS/HR Clindamycin Phosphate 50 ml @ 50 mls/hr Q8HR IV 03/13/25 06:00 03/18/25 22:32 50 MLS/HR Pantoprazole Sodium 40 mg BID IV 03/13/25 10:00 03/18/25 22:32 40 MG Albuterol 2.5 mg Q6HR NEB 03/13/25 12:00 03/18/25 19:32 2.5 MG Ipratropium [place] 0.5 mg Q6HR NEB 03/13/25 12:00 03/18/25 19:32 0.5 MG Saccharomyces Boulardii 250 mg DAILY PO 03/14/25 10:00 03/18/25 09:57 250 MG Enteral Nutritional Formula 1,000 ml 30ML/HR GT 03/14/25 08:45 03/17/25 17:38 1,000 ML Enoxaparin Sodium 30 mg DAILY SC 03/18/25 10:00 03/18/25 09:58 30 MG objective The patient is well-nourished and well-developed with no distress. The patient is intubated MUSCULOSKELETAL EXAM: Status post right BKA MENTAL STATUS: Subjective CRANIAL NERVES: Pupils are equal, round and reactive, small. There are corneal reflexes and doll's eyes phenomenon. No signs of facial weakness. There are no gagging or coughing reflexes SENSATION: No responses to pain stimuli. MOTOR: Normal tone in the upper and lower extremity. Normal muscle bulk. No fasciculations. No spontaneous movement. REFLEXES: Deep tendon reflexes are symmetrical. No pathological reflexes. CEREBELLAR/COORDINATION: Deferred GAIT/STATION: deferred. laboratory and microbiology Laboratory Tests 03/18/25 05:22 03/17/25 05:40 Test 03/18/25 05:22 Range/Units Serum Glucose 151 H 74-106 mg/dL Problem List Acute respiratory failure Excessive nasal bleeding Come Metabolic encephalopathy Hypoxic encephalopathy Toxic encephalopathy General weakness Multiple acute/subacute strokes Status post right BKA Depression ? Waking up Assessment/Plan Monitoring Supportive treatment EEG ICU Stabilize vitals Respiratory support/vent management Oxygen Antibiotics Aspirin 81 mg daily (HOLD) Cymbalta 30 mg b.i.d. DVT prophylaxis/SCD Quit tobacco smoking completely Wean off sedation as tolerated More recommendation per clinical course This medical document was created using an electronic medical record system with [employer] dictation system. Although this document has been carefully reviewed, there may still be some phonetic and typographical errors. These areas are purely typographical due to imperfections of the software programs, and do not reflect any compromise in the patient's medical care. Prognosis guarded Dietary Evaluation Review Comments: 1) Esau 1 pk BID 2) Refer Transformer Coil Winder on DC 3) Continue current plan of care Expected Outcomes/Goals: Pt will meet >75% estimated needs Fu 3-5 days Plan discussed with: Other NEELA RUEDA MD Mar 18, 2025 22:49
--- NOTE | 2025-03-18 23:31 | DVHPN2 ---
Progress Note - Dictate Date Seen: Mar 18, 2025 Medical Necessity Reason Pt with a Central, PICC or Fol: Yes The following are medically ne: Acosta Catheter Reason for acosta catheter: Strict I&O Subjective Patient seen and examined at bedside. Sedated, intubated on mechanical ventilator. Overnight events reviewed. vital signs Vital Sign Date Time Temp Pulse Resp B/P (MAP) Pulse Ox O2 Delivery O2 Flow Rate FiO2 03/18/25 22:32 81 24 154/89 (110) 100 30 03/18/25 22:00 Mechanical Ventilator+ 03/18/25 20:00 98.0 98.0 03/18/25 18:00 2 Total Intake and Output 03/17/25 03/17/25 03/18/25 15:00 23:00 07:00 Intake Total 122.0 ml 281.5 ml 212 ml Output Total 625 ml 650 ml Balance 122.0 ml -343.5 ml -438 ml medications Current Medications Medications Dose Ordered Sig/John Route Start Time Stop Time Status Last Admin Dose Admin Ondansetron HCl 4 mg Q4HP PRN IV 02/19/25 13:45 03/06/25 02:55 4 MG Docusate Sodium 100 mg BIDPRN PRN PO 02/19/25 13:45 03/04/25 17:41 100 MG Acetaminophen 650 mg Q6HP PRN PO 02/19/25 13:45 03/09/25 21:36 650 MG Nitroglycerin 0.4 mg Q5MINP PRN SL 02/19/25 13:45 Diagnostic Test (Pha) 1 strip ACHS 02/19/25 17:00 03/18/25 22:06 1 STRIP Dextrose 50 ml UD PRN IV 02/19/25 15:45 03/14/25 21:04 50 ML Duloxetine HCl 30 mg DAILY PO 02/20/25 10:00 03/18/25 09:57 30 MG Potassium Chloride 100 ml @ 50 mls/hr Q2H IV 02/19/25 23:15 02/20/25 05:14 Cancel Potassium Chloride 100 ml @ 50 mls/hr Q2H IV 02/20/25 07:15 02/20/25 11:14 UNV Lorazepam 1 mg Q8HPRN PRN PO 02/23/25 14:15 02/28/25 21:38 1 MG Insulin Human Regular ACHS SC 02/28/25 17:00 03/18/25 22:32 3 UNITS Gabapentin 100 mg TID PO 03/02/25 14:00 03/18/25 22:32 100 MG Calcium Acetate 1,334 mg TIDWMEALS PO 03/04/25 12:00 03/18/25 17:41 1,334 MG Ergocalciferol 50,000 unit Q7D PO 03/04/25 11:45 03/18/25 12:43 50,000 UNIT Zirconium Oxide 10 gm TID PO 03/07/25 14:00 Cancel Sodium Bicarbonate 50 ml/ Sodium Chloride 1,050 ml @ 100 mls/hr [id number] IV 03/07/25 11:45 Cancel Acetaminophen/ Hydrocodone Bitart 1 tab Q6HP PRN PO 03/09/25 13:30 03/12/25 22:01 1 TAB Hydralazine HCl 10 mg Q6HPRN PRN IV 03/11/25 15:30 03/18/25 20:48 10 MG Guaifenesin 200 mg Q4HP PRN PO 03/12/25 20:15 03/12/25 22:00 200 MG Norepinephrine Bitartrate 250 ml @ 3.75 mls/hr Q24H IV 03/13/25 02:00 03/14/25 13:44 3.75 MLS/HR Midazolam HCl 50 ml @ 1 mls/hr Q24H IV 03/13/25 02:00 03/18/25 10:01 4 MLS/HR Fentanyl Citrate 250 ml @ 2.5 mls/hr Q24H IV 03/13/25 02:30 03/18/25 16:30 10 MLS/HR Ceftriaxone Sodium 50 ml @ 100 mls/hr Q24H IV 03/13/25 04:00 03/18/25 03:52 100 MLS/HR Clindamycin Phosphate 50 ml @ 50 mls/hr Q8HR IV 03/13/25 06:00 03/18/25 22:32 50 MLS/HR Pantoprazole Sodium 40 mg BID IV 03/13/25 10:00 03/18/25 22:32 40 MG Albuterol 2.5 mg Q6HR NEB 03/13/25 12:00 03/18/25 19:32 2.5 MG Ipratropium [place] 0.5 mg Q6HR NEB 03/13/25 12:00 03/18/25 19:32 0.5 MG Saccharomyces Boulardii 250 mg DAILY PO 03/14/25 10:00 03/18/25 09:57 250 MG Enteral Nutritional Formula 1,000 ml 30ML/HR GT 03/14/25 08:45 03/17/25 17:38 1,000 ML Enoxaparin Sodium 30 mg DAILY SC 03/18/25 10:00 03/18/25 09:58 30 MG objective Gen.: Patient lying in bed in medical ICU. Sedated, intubated on mechanical ventilator. Head: Normocephalic, atraumatic. Eyes: PERRLA. Ears: Normal external anatomy. Throat: Endotracheal tube and orogastric tube in place. Neck: Supple, trachea midline. Chest: Transmitted breath sounds bilaterally. Decreased air entry bilaterally. No wheezing. Bibasilar crackles. Cardiovascular: Positive S1, positive S2. Regular rate and rhythm. Abdomen: Positive bowel sounds in all 4 quadrants. Soft, nontender, nondistended. : Acosta in place. Normal external genitalia. Rectal: Deferred. Skin: Warm, dry. Intact. Extremities: 2+ radial pulses bilaterally. No lower extremity edema. s/p right BKA. Neuro: Sedated. laboratory and microbiology Laboratory Tests 03/18/25 05:22 03/17/25 05:40 Test 03/18/25 05:22 Range/Units Serum Glucose 151 H 74-106 mg/dL Assessment/Plan Impression: Acute hypoxic respiratory failure On mechanical ventilator Multiple acute/subacute strokes. Acute kidney injury. Hypertension, newly diagnosed. Insulin-dependent diabetes mellitus. Polysubstance use Peripheral vascular disease, s/p right BKA 6 months ago. Sepsis Events: Remains on vent support On AC mode; RR 24, VT 400, PEEP 5, FiO2 30% Sedated on Versed, Fentanyl Continue antibiotics. Tube feeds for nutritional support ABG reviewed, compensated Angioedema is improving. Cuff leak present. Taper sedation as tolerated CPAP in the AM. CXR on 03/17 showed patchy airspace opacities appear mildly improved but persist. No effusion or pneumothorax Labs and imaging reviewed. Rest of plan as noted below. Plan: s/p intubation on mechanical ventilator. On AC mode; RR 24, VT 400, PEEP 5, FiO2 30% Titrate FIO2 to keep O2 saturation above 90%. VAP bundle. Daily ABG and CXR while intubated Sedate for ventilator synchrony Continue antibiotics. F/u cultures. Tube feeds for nutritional support Pressors as necessary for hemodynamic support Titrate to keep mean arterial pressure greater than 65 mmHg. Monitor renal function Monitor electrolytes. Supplement as necessary. Monitor ins and outs. Taper sedation as tolerated CPAP with PS 8, PEEP 5 OK for Precedex if necessary GI prophylaxis. DVT prophylaxis. Prognosis: Poor given patient's multiple co-morbidities. Condition: Critical Rest of plan per hospitalist and other consultants. A total of 35 minutes of critical care time was spent reviewing the patient record, examining the patient, making a diagnostic and therapeutic plan, discussing this plan with the medical personnel, following up on diagnostic studies and following the patient for clinical stability excluding any and all procedures. At least 50% of this time was spent in direct, [id number] contact. Thank you, FRANCISCO Alanis, for allowing me to participate in this patient's care. Further recommendations will depend on the patient's clinical course. Please do not hesitate to contact me if you have any questions or concerns. This medical document was created using an electronic medical record system with [employer] computerized dictation system. Although these documentations are being carefully reviewed, there may still be some phonetic and typographical changes. The errors are purely typographical, due to imperfection on the software program, and do not reflect any compromise in the patient's medical care. Dietary Evaluation Review Comments: 1) Esau 1 pk BID 2) Refer Brand Leader on DC 3) Continue current plan of care Expected Outcomes/Goals: Pt will meet >75% estimated needs Fu 3-5 days Plan discussed with: Other (ASHLEY Otto) Critical Care Time(min): 35 LARRY HERRERA MD Mar 18, 2025 23:31
[2025-03-19] VITALS (105 sets, daily range): BP systolic 108–171; BP diastolic 64–98; PULSE 70–97; RESP 10–28; TEMP 94.8–99.1; O2SAT 95–100
[2025-03-19] MEDS: hydrALAZINE HCL 20 MG/ML VL IV ONE (02:15)
--- NOTE | 2025-03-19 04:17 | DVH ---
INDICATION: INTUBATED TECHNIQUE: Single frontal view of the chest was obtained COMPARISON: XY CHEST PORTABLE on DOS: 03/17/25, XY CHEST PORTABLE on DOS: 03/16/25, XY CHEST PORTABLE o n DOS: 03/15/25, XY CHEST PORTABLE on DOS: 03/14/25, XY CHEST PORTABLE on DOS: 03/13/25, XY CHEST PORTAB LE on DOS: 03/17/25 FINDINGS: Lines and Tubes: The endotracheal tube terminates 4 cm above the caleb. Right central venous jeff ter terminates in the right atrium. The enteric tube courses below the left hemidiaphragm and the tip extends outside the field of view. Lungs: Patchy bilateral opacities are similar to the prior study. Pleura: No effusion. No pneumothorax. Cardiomediastinal contours: Stable Cardiovascular silhouette. Bones: No acute osseous abnormality. IMPRESSION: 1. Endotracheal tube terminates 4cm from caleb. Other lines and tubes are unchanged in position. 2. Bilateral airspace disease similar to prior study.
[2025-03-19 05:15] LABS: Chloride 106 mmol/L (98-107); Sodium 140 mmol/L (136-145)
[2025-03-19 05:16] LABS: Anion Gap 9 (5-15); Calcium 8.8 mg/dL (8.7-10.4); Carbon Dioxide 25 mmol/L (20-31)
[2025-03-19 05:19] LABS: Potassium 3.4 mmol/L (3.5-5.1)
[2025-03-19 05:21] LABS: BUN/Creatinine Ratio 27.8 (10.0-20.0)
[2025-03-19 05:31] LABS: Blood Urea Nitrogen 55 mg/dL (9-23); Glucose 188 mg/dL (74-106)
[2025-03-19 08:51] LABS: Base Excess 0.6 mmol/L (-2.0-3.0)
[2025-03-19] MEDS ORDERED: POTASSIUM CHL 20MEQ/100ML 100 ML IV ONE (09:30)
[2025-03-19] MEDS: POTASSIUM CHL 20MEQ/50ML 50 ML IV ONE (09:49)
--- NOTE | 2025-03-19 09:54 | DVHPN2 ---
Subjective Intubated and sedated Reviewed: Care Plan, H&P, Labs, Medications, Previous Orders, Radiology, Other (Consultations) Changes from previous H/P or p: No Changes General: Per HPI Objective Vitals Vital Signs Date Time Temp Pulse Resp B/P (MAP) Pulse Ox O2 Delivery O2 Flow Rate FiO2 03/19/25 08:21 81 24 115/70 (85) 99 30 03/19/25 08:00 Mechanical Ventilator+ 03/19/25 08:00 96.1 96.1 03/18/25 18:00 2 Intake/Output Intake and Output 03/19/25 07:00 Intake Total 1029.5 ml Output Total 3250 ml Balance -2220.5 ml Intake Oral 200 ml IV Total 589.5 ml Tube Feeding 240 ml Output Urine Total 3250 ml Exam Assess patient will sitting in her wheelchair. General Appearance: Alert, Oriented X3, Cooperative, No acute distress HEENT: Atraumatic, PERRLA, Other (Tongue swelling. Negative air leak around ET tube) Lungs: Clear to auscultation, Normal air movement Cardiovascular: Regular rate, Normal S1, Normal S2 Abdomen: Normal bowel sounds, Soft, No tenderness Extremities: No edema, Normal pulses, Other (Less redness and swelling to left lower extremity) Neuro: Normal speech, Other Skin: Wounds (See nurse notes and pictures) Psych/Mental Status: Mental status NL, Mood NL Medications Current Medications Medications Dose Ordered Sig/John Route Start Time Stop Time Status Last Admin Dose Admin Ondansetron HCl 4 mg Q4HP PRN IV 02/19/25 13:45 03/06/25 02:55 4 MG Docusate Sodium 100 mg BIDPRN PRN PO 02/19/25 13:45 03/04/25 17:41 100 MG Acetaminophen 650 mg Q6HP PRN PO 02/19/25 13:45 03/09/25 21:36 650 MG Nitroglycerin 0.4 mg Q5MINP PRN SL 02/19/25 13:45 Diagnostic Test (Pha) 1 strip ACHS 02/19/25 17:00 03/19/25 06:51 1 STRIP Dextrose 50 ml UD PRN IV 02/19/25 15:45 03/14/25 21:04 50 ML Duloxetine HCl 30 mg DAILY PO 02/20/25 10:00 03/19/25 08:00 30 MG Potassium Chloride 100 ml @ 50 mls/hr Q2H IV 02/19/25 23:15 02/20/25 05:14 Cancel Potassium Chloride 100 ml @ 50 mls/hr Q2H IV 02/20/25 07:15 02/20/25 11:14 UNV Insulin Human Regular ACHS SC 02/28/25 17:00 03/19/25 06:52 3 UNITS Gabapentin 100 mg TID PO 03/02/25 14:00 03/19/25 05:28 100 MG Calcium Acetate 1,334 mg TIDWMEALS PO 03/04/25 12:00 03/19/25 08:00 1,334 MG Ergocalciferol 50,000 unit Q7D PO 03/04/25 11:45 03/18/25 12:43 50,000 UNIT Zirconium Oxide 10 gm TID PO 03/07/25 14:00 Cancel Sodium Bicarbonate 50 ml/ Sodium Chloride 1,050 ml @ 100 mls/hr [id number] IV 03/07/25 11:45 Cancel Hydralazine HCl 10 mg Q6HPRN PRN IV 03/11/25 15:30 03/18/25 20:48 10 MG Norepinephrine Bitartrate 250 ml @ 3.75 mls/hr Q24H IV 03/13/25 02:00 03/14/25 13:44 3.75 MLS/HR Midazolam HCl 50 ml @ 1 mls/hr Q24H IV 03/13/25 02:00 03/19/25 00:04 5 MLS/HR Fentanyl Citrate 250 ml @ 2.5 mls/hr Q24H IV 03/13/25 02:30 03/18/25 16:30 10 MLS/HR Ceftriaxone Sodium 50 ml @ 100 mls/hr Q24H IV 03/13/25 04:00 03/19/25 04:19 100 MLS/HR Clindamycin Phosphate 50 ml @ 50 mls/hr Q8HR IV 03/13/25 06:00 03/19/25 05:28 50 MLS/HR Pantoprazole Sodium 40 mg BID IV 03/13/25 10:00 03/19/25 08:00 40 MG Albuterol 2.5 mg Q6HR NEB 03/13/25 12:00 03/19/25 06:40 2.5 MG Ipratropium [place] 0.5 mg Q6HR NEB 03/13/25 12:00 03/19/25 06:40 0.5 MG Saccharomyces Boulardii 250 mg DAILY PO 03/14/25 10:00 03/19/25 08:00 250 MG Enteral Nutritional Formula 1,000 ml 30ML/HR GT 03/14/25 08:45 03/17/25 17:38 1,000 ML Enoxaparin Sodium 30 mg DAILY SC 03/18/25 10:00 03/19/25 08:01 30 MG Laboratory Results Laboratory Tests 03/17/25 05:40 03/19/25 04:42 Chemistry Test 03/19/25 04:42 Calcium Level 8.8 mg/dL (8.7-10.4) Urinalysis Test 02/19/25 17:27 03/04/25 05:00 Urine Color Colorless (Yellow) Urine Clarity Clear (Clear) Urine pH 6.5 (5.0-9.0) Urine Specific [place] 1.008 (1.001-1.035) Urine Protein 2+ (Negative) H Urine Ketones 1+ (Negative) H Urine Blood 1+ /uL (Negative) H Urine Nitrite Negative (Negative) Urine Bilirubin Negative (Negative) Urine Urobilinogen Normal mg/dL (Negative) Urine Leukocyte Esterase Negative /uL (Negative) Urine RBC 6 /hpf (0 - 4) Urine Microscopic WBC 2 /HPF (0-5) Urine Squamous Epithelial Cells Few /hpf (<5) Urine Bacteria None seen /hpf (None Seen) Urine Glucose 2+ mg/dL (Normal) H Urine Creatinine 25.51 mg/dL (30.0-125.0) L Urine Protein/Creatinine Ratio 14.00 Urine Sodium 80 mmol/L (40-220) Urine Total Protein 357.1 mg/dL (1-14) H Blood Gas Results Test 03/19/25 08:07 Arterial Blood pH 7.406 (7.350-7.450) FiO2 % 30.0 Microbiology Microbiology Date/Time Source Procedure Growth Status 03/13/25 05:10 Blood Blood Culture - Final NO GROWTH AFTER 5 DAYS OF INCUBATION. Complete 03/13/25 03:17 Sputum Gram Stain - Final Complete 03/13/25 03:17 Respiratory Culture - Final Presumptive Dionna albicans Complete 03/06/25 14:37 Knee Left Gram Stain - Final Complete 03/06/25 14:37 Knee Left Anaerobic Culture - Final Complete 03/06/25 14:37 Aerobic Culture - Final Staphylococcus aureus Complete 03/04/25 13:29 Aspirate Gram Stain - Final Complete 03/04/25 13:29 Body Fluid Culture - Final Staphylococcus aureus Complete 02/19/25 17:27 Urine - [place] Urine Culture - Final Complete Labs and/or images reviewed: Labs reviewed by me, Image(s) reviewed by me Assessment/Plan Assessment/Plan Impression: Multiple acute/subacute strokes Left lower extremity cellulitis Rule out left septic knee Hypokalemia Acute kidney injury likely hemodynamically mediated due to vasomotor nephropathy Chronic kidney disease Peripheral vascular disease status post right [id number] amputation 6 months ago Poorly controlled type 2 diabetes Sepsis Hypertension Mixed hyperlipidemia Polysubstance use disorder Diabetic neuropathy -? Suicidal ideation -septic bursitis with Staphylococcus aureus -septic shock Angioedema of the tongue Plan: -events: No events overnight. Tongue swelling resolved. Spontaneous breathing trial if patient has air leak around endotracheal tube. Potassium replacement -PUD prophylaxis -continue Nepro -continue vasopressor therapy to keep map greater than 65 mmHg, currently off -bronchodilators -antibiotics: Continue Rocephin and clindamycin, add Florastor -pulse dose of Lasix -continue PPI -repeat labs, chest x-ray, ABG in a.m. Total time spent with patient discussing and formulating plan of care: 35 minutes. This medical document was created using an electronic medical record system with [employer] dictation system. Although this document has been carefully reviewed, there may still be some phonetic and typographical errors. These areas are purely typographical due to imperfections of the software programs, and do not reflect any compromise in the patient's medical care. Plan discussed with: Patient, Other (RN) My Orders Orders - JUSTIN BONILLA NP Procedure Category Date Status Time Potassium Chl PHA 03/19/25 In Process 20meq/50ml (Potassium 09:45 Date of Service: Mar 19, 2025 Billing Provider: JUSTIN BONILLA NP Common Visit Codes: [id number] CARE 30-74 MIN JUSTIN BONILLA NP Mar 19, 2025 09:54
--- NOTE | 2025-03-19 10:27 | DVHPN2 ---
Progress Note - Dictate Date Seen: Mar 19, 2025 Medical Necessity Reason Pt with a Central, PICC or Fol: Yes The following are medically ne: Acosta Catheter Reason for acosta catheter: Strict I&O Subjective Mr. Kaur is a 54 years old right-handed female with a history of hypertension, diabetes, dyslipidemia, anxiety, GERD, osteo myelitis status post right BKA, she came to the [facility] on 02/19/25 with a chief complaint of general weakness. He was transferred/ICU on 03/13/25 for ALOC, nasal bleeding and intubation I have seen and examined the patient, I have talked to her nurse, she is possibly responsive to touch stimuli. No spontaneous extremity movement Psychiatry consultation, 02/26/25: 1:1 sitter. Transferred to inpatient psychiatric facility. Cymbalta 30 mg b.i.d. Fentanyl 150 mcg/hour, Versed 5 mg/hour ABG, 03/13/2025: Unremarkable UDS, 02/19/2025: Cannabinoids Plasma alcohol, 02/19/2025: Three Urinalysis, 02/19, : WBC: 2, urine leukocyte esterase WBC/HB/PLT/MCV, 02/20/2025: 21.9/10.9/398/83.1, 03/13/2025: 11.7/6.5/424/85.4 K, 02/19/2025: 1.7, 02/20/2025: 2.1 BUN/CR, 02/20/2025: 33/2.03, 03/13/2025: 51.93 HGB A1c, 06/03/2024: 13.1 Liver function tests, 02/20/2025: Unremarkable TG/HDL/LDL/HDL, 04/11/2024: 180/238/164/43 MAGALIS, 02/21/2025: 1. Technically good study. Sinus rhythm. 2. Left atrial enlargement. 3. Number Valves appear to be structurally normal. 4. Ventricular systolic function is preserved at 60% with normal RV function. 5. Doppler reveals mild TR. No significant mitral or aortic insufficiency. No atrial septal or ventricular septal defects 6. No masses or vegetations discernible. 7. The atrial appendage looks clean, no masses. No atrial or ventricular septal defects as noted. No abnormal shunting. Bubble study was negative 8. The valves appear to be structurally normal. No vegetations or signs of emboli present. Carotid Doppler, 02/20/2025: No hemodynamically significant stenosis noted in the right carotid system. No hemodynamically significant stenosis noted in the left carotid system. Chest X-ray, 03/19/25: 1. Endotracheal tube terminates 4cm from caleb. Other lines and tubes are unchanged in position. 2. Bilateral airspace disease similar to prior study. CT head, : Small age-indeterminate infarct extending from the right jorge radiata into the right basal ganglia. Further evaluation with MRI brain with diffusion-weighted imaging is recommended. CT head, , No acute intracranial abnormality. Multiple subacute bilateral lacunar infarcts as seen on prior MRI. MRI head, 02/19/2025: 1. There are multiple small foci of acute to subacute infarct in the right jorge radiata and right basal ganglia. There are also multiple small acute to subacute infarcts in the left anteromedial frontal lobe and in the left jorge radiata and left basal ganglia. There is no evidence of acute hemorrhage MRI left foot, 02/22/25: Moderate dorsal subcutaneous edema. No evidence of osteomyelitis. No drainable fluid collection noted. Moderate myositis. vital signs Vital Sign Date Time Temp Pulse Resp B/P (MAP) Pulse Ox O2 Delivery O2 Flow Rate FiO2 03/19/25 08:21 81 24 115/70 (85) 99 30 03/19/25 08:00 Mechanical Ventilator+ 03/19/25 08:00 96.1 96.1 03/18/25 18:00 2 Total Intake and Output 03/18/25 03/18/25 03/19/25 15:00 23:00 07:00 Intake Total 112 ml 612.5 ml 305.0 ml Output Total 1500 ml 1750 ml Balance 112 ml -887.5 ml -1445.0 ml medications Current Medications Medications Dose Ordered Sig/John Route Start Time Stop Time Status Last Admin Dose Admin Ondansetron HCl 4 mg Q4HP PRN IV 02/19/25 13:45 03/06/25 02:55 4 MG Docusate Sodium 100 mg BIDPRN PRN PO 02/19/25 13:45 03/04/25 17:41 100 MG Acetaminophen 650 mg Q6HP PRN PO 02/19/25 13:45 03/09/25 21:36 650 MG Nitroglycerin 0.4 mg Q5MINP PRN SL 02/19/25 13:45 Diagnostic Test (Pha) 1 strip ACHS 02/19/25 17:00 03/19/25 06:51 1 STRIP Dextrose 50 ml UD PRN IV 02/19/25 15:45 03/14/25 21:04 50 ML Duloxetine HCl 30 mg DAILY PO 02/20/25 10:00 03/19/25 08:00 30 MG Potassium Chloride 100 ml @ 50 mls/hr Q2H IV 02/19/25 23:15 02/20/25 05:14 Cancel Potassium Chloride 100 ml @ 50 mls/hr Q2H IV 02/20/25 07:15 02/20/25 11:14 UNV Insulin Human Regular ACHS SC 02/28/25 17:00 03/19/25 06:52 3 UNITS Gabapentin 100 mg TID PO 03/02/25 14:00 03/19/25 05:28 100 MG Calcium Acetate 1,334 mg TIDWMEALS PO 03/04/25 12:00 03/19/25 08:00 1,334 MG Ergocalciferol 50,000 unit Q7D PO 03/04/25 11:45 03/18/25 12:43 50,000 UNIT Zirconium Oxide 10 gm TID PO 03/07/25 14:00 Cancel Sodium Bicarbonate 50 ml/ Sodium Chloride 1,050 ml @ 100 mls/hr [id number] IV 03/07/25 11:45 Cancel Hydralazine HCl 10 mg Q6HPRN PRN IV 03/11/25 15:30 03/18/25 20:48 10 MG Norepinephrine Bitartrate 250 ml @ 3.75 mls/hr Q24H IV 03/13/25 02:00 03/14/25 13:44 3.75 MLS/HR Midazolam HCl 50 ml @ 1 mls/hr Q24H IV 03/13/25 02:00 03/19/25 09:53 5 MLS/HR Fentanyl Citrate 250 ml @ 2.5 mls/hr Q24H IV 03/13/25 02:30 03/18/25 16:30 10 MLS/HR Ceftriaxone Sodium 50 ml @ 100 mls/hr Q24H IV 03/13/25 04:00 03/19/25 04:19 100 MLS/HR Clindamycin Phosphate 50 ml @ 50 mls/hr Q8HR IV 03/13/25 06:00 03/19/25 05:28 50 MLS/HR Pantoprazole Sodium 40 mg BID IV 03/13/25 10:00 03/19/25 08:00 40 MG Albuterol 2.5 mg Q6HR NEB 03/13/25 12:00 03/19/25 06:40 2.5 MG Ipratropium Standard 0.5 mg Q6HR NEB 03/13/25 12:00 03/19/25 06:40 0.5 MG Saccharomyces Boulardii 250 mg DAILY PO 03/14/25 10:00 03/19/25 08:00 250 MG Enteral Nutritional Formula 1,000 ml 30ML/HR GT 03/14/25 08:45 03/17/25 17:38 1,000 ML Enoxaparin Sodium 30 mg DAILY SC 03/18/25 10:00 03/19/25 08:01 30 MG objective The patient is well-nourished and well-developed with no distress. The patient is intubated MUSCULOSKELETAL EXAM: Status post right BKA MENTAL STATUS: Subjective CRANIAL NERVES: Pupils are equal, round and reactive, small. There are corneal reflexes and doll's eyes phenomenon. No signs of facial weakness. There are no gagging or coughing reflexes SENSATION: No responses to pain stimuli. MOTOR: Normal tone in the upper and lower extremity. Normal muscle bulk. No fasciculations. No spontaneous movement. REFLEXES: Deep tendon reflexes are symmetrical. No pathological reflexes. CEREBELLAR/COORDINATION: Deferred GAIT/STATION: deferred. laboratory and microbiology Laboratory Tests 03/19/25 04:42 03/17/25 05:40 Test 03/19/25 04:42 Range/Units Serum Glucose 188 H 74-106 mg/dL Problem List Acute respiratory failure Excessive nasal bleeding Come Metabolic encephalopathy Hypoxic encephalopathy Toxic encephalopathy General weakness Multiple acute/subacute strokes Status post right BKA Depression ? Waking up Assessment/Plan Monitoring Supportive treatment EEG ICU Stabilize vitals Respiratory support/vent management Oxygen Antibiotics Aspirin 81 mg daily (HOLD) Cymbalta 30 mg b.i.d. DVT prophylaxis/SCD Quit tobacco smoking completely Wean off sedation as tolerated More recommendation per clinical course This medical document was created using an electronic medical record system with [employer] dictation system. Although this document has been carefully reviewed, there may still be some phonetic and typographical errors. These areas are purely typographical due to imperfections of the software programs, and do not reflect any compromise in the patient's medical care. Prognosis guarded Dietary Evaluation Review Comments: 1) Esau 1 pk BID 2) Refer Fitness/Wellness Director on DC 3) Continue current plan of care Expected Outcomes/Goals: Pt will meet >75% estimated needs Fu 3-5 days Plan discussed with: Other NEELA RUEDA MD Mar 19, 2025 10:27
--- NOTE | 2025-03-19 22:22 | DVHPN2 ---
Progress Note - Dictate Date Seen: Mar 19, 2025 Medical Necessity Reason Pt with a Central, PICC or Fol: Yes The following are medically ne: Acosta Catheter Reason for acosta catheter: Strict I&O Subjective Patient seen and examined at bedside. Intubated on mechanical ventilator. Overnight events reviewed. vital signs Vital Sign Date Time Temp Pulse Resp B/P (MAP) Pulse Ox O2 Delivery O2 Flow Rate FiO2 03/19/25 22:00 73 03/19/25 22:00 30 03/19/25 22:00 24 97 Mechanical Ventilator+ 03/19/25 20:05 127/72 (90) 03/19/25 18:15 98.4 98.4 03/18/25 18:00 2 Total Intake and Output 03/18/25 03/18/25 03/19/25 15:00 23:00 07:00 Intake Total 112 ml 612.5 ml 305.0 ml Output Total 1500 ml 1750 ml Balance 112 ml -887.5 ml -1445.0 ml medications Current Medications Medications Dose Ordered Sig/John Route Start Time Stop Time Status Last Admin Dose Admin Ondansetron HCl 4 mg Q4HP PRN IV 02/19/25 13:45 03/06/25 02:55 4 MG Docusate Sodium 100 mg BIDPRN PRN PO 02/19/25 13:45 03/04/25 17:41 100 MG Acetaminophen 650 mg Q6HP PRN PO 02/19/25 13:45 03/09/25 21:36 650 MG Nitroglycerin 0.4 mg Q5MINP PRN SL 02/19/25 13:45 Diagnostic Test (Pha) 1 strip ACHS 02/19/25 17:00 03/19/25 21:34 1 STRIP Dextrose 50 ml UD PRN IV 02/19/25 15:45 03/14/25 21:04 50 ML Duloxetine HCl 30 mg DAILY PO 02/20/25 10:00 03/19/25 08:00 30 MG Potassium Chloride 100 ml @ 50 mls/hr Q2H IV 02/19/25 23:15 02/20/25 05:14 Cancel Potassium Chloride 100 ml @ 50 mls/hr Q2H IV 02/20/25 07:15 02/20/25 11:14 UNV Insulin Human Regular ACHS SC 02/28/25 17:00 03/19/25 12:20 3 UNITS Gabapentin 100 mg TID PO 03/02/25 14:00 03/19/25 21:34 100 MG Calcium Acetate 1,334 mg TIDWMEALS PO 03/04/25 12:00 03/19/25 17:14 1,334 MG Ergocalciferol 50,000 unit Q7D PO 03/04/25 11:45 03/18/25 12:43 50,000 UNIT Zirconium Oxide 10 gm TID PO 03/07/25 14:00 Cancel Sodium Bicarbonate 50 ml/ Sodium Chloride 1,050 ml @ 100 mls/hr [id number] IV 03/07/25 11:45 Cancel Hydralazine HCl 10 mg Q6HPRN PRN IV 03/11/25 15:30 03/18/25 20:48 10 MG Norepinephrine Bitartrate 250 ml @ 3.75 mls/hr Q24H IV 03/13/25 02:00 03/14/25 13:44 3.75 MLS/HR Fentanyl Citrate 250 ml @ 2.5 mls/hr Q24H IV 03/13/25 02:30 03/19/25 15:37 15 MLS/HR Ceftriaxone Sodium 50 ml @ 100 mls/hr Q24H IV 03/13/25 04:00 03/19/25 04:19 100 MLS/HR Clindamycin Phosphate 50 ml @ 50 mls/hr Q8HR IV 03/13/25 06:00 03/19/25 21:34 50 MLS/HR Pantoprazole Sodium 40 mg BID IV 03/13/25 10:00 03/19/25 21:34 40 MG Albuterol 2.5 mg Q6HR NEB 03/13/25 12:00 03/19/25 18:20 2.5 MG Ipratropium [place] 0.5 mg Q6HR NEB 03/13/25 12:00 03/19/25 18:20 0.5 MG Saccharomyces Boulardii 250 mg DAILY PO 03/14/25 10:00 03/19/25 08:00 250 MG Enteral Nutritional Formula 1,000 ml 30ML/HR GT 03/14/25 08:45 03/17/25 17:38 1,000 ML Enoxaparin Sodium 30 mg DAILY SC 03/18/25 10:00 03/19/25 08:01 30 MG objective Gen.: Patient lying in bed in medical ICU. Intubated on mechanical ventilator.. Head: Normocephalic, atraumatic. Eyes: PERRLA. Ears: Normal external anatomy. Throat: Endotracheal tube and orogastric tube in place. Neck: Supple, trachea midline. Chest: Transmitted breath sounds bilaterally. Decreased air entry bilaterally. No wheezing. Bibasilar crackles. Cardiovascular: Positive S1, positive S2. Regular rate and rhythm. Abdomen: Positive bowel sounds in all 4 quadrants. Soft, nontender, nondistended. : Acosta in place. Normal external genitalia. Rectal: Deferred. Skin: Warm, dry. Intact. Extremities: 2+ radial pulses bilaterally. No lower extremity edema. s/p right BKA. Neuro: Off sedation laboratory and microbiology Laboratory Tests 03/19/25 04:42 03/17/25 05:40 Test 03/19/25 04:42 Range/Units Serum Glucose 188 H 74-106 mg/dL Assessment/Plan Impression: Acute hypoxic respiratory failure On mechanical ventilator Multiple acute/subacute strokes. Acute kidney injury. Hypertension, newly diagnosed. Insulin-dependent diabetes mellitus. Polysubstance use Peripheral vascular disease, s/p right BKA 6 months ago. Sepsis Events: Remains on vent support On AC mode; RR 24, VT 400, PEEP 5, FiO2 30% Off Versed Fentanyl drip for analgesia Not following commands Continue antibiotics. Continue bronchodilators Tube feeds for nutritional support ABG reviewed, compensated CXR reviewed, bilateral airspace disease stable from prior Angioedema is improving. CPAP with PS 18, PEEP of 5 - tolerated for 3 hours Taper sedation as tolerated CPAP in the AM. OK to use Precedex if necessary CXR on 03/17 showed patchy airspace opacities appear mildly improved but persist. No effusion or pneumothorax Labs and imaging reviewed. Rest of plan as noted below. Plan: s/p intubation on mechanical ventilator. On AC mode; RR 24, VT 400, PEEP 5, FiO2 30% Titrate FIO2 to keep O2 saturation above 90%. VAP bundle. Daily ABG and CXR while intubated Off sedation Continue antibiotics. F/u cultures. Tube feeds for nutritional support Pressors as necessary for hemodynamic support Titrate to keep mean arterial pressure greater than 65 mmHg. Monitor renal function Monitor electrolytes. Supplement as necessary. Monitor ins and outs. SBT/GETACHEW. GI prophylaxis. DVT prophylaxis. Prognosis: Poor given patient's multiple co-morbidities. Condition: Critical Rest of plan per hospitalist and other consultants. A total of 35 minutes of critical care time was spent reviewing the patient record, examining the patient, making a diagnostic and therapeutic plan, discussing this plan with the medical personnel, following up on diagnostic studies and following the patient for clinical stability excluding any and all procedures. At least 50% of this time was spent in direct, [id number] contact. Thank you, FRANCISCO Alanis, for allowing me to participate in this patient's care. Further recommendations will depend on the patient's clinical course. Please do not hesitate to contact me if you have any questions or concerns. This medical document was created using an electronic medical record system with [employer] dictation system. Although these documentations are being carefully reviewed, there may still be some phonetic and typographical changes. The errors are purely typographical, due to imperfection on the software program, and do not reflect any compromise in the patient's medical care. Dietary Evaluation Review Comments: 1) Esau 1 pk BID 2) Refer Clutch Operator on DC 3) Continue current plan of care Expected Outcomes/Goals: Pt will meet >75% estimated needs Fu 3-5 days Plan discussed with: Other (ASHLEY Vaughn) Critical Care Time(min): 35 LARRY HERRERA MD Mar 19, 2025 22:22
--- NOTE | 2025-03-19 22:51 | DVHPN2 ---
Progress Note - Dictate Date Seen: Mar 19, 2025 Medical Necessity Reason Pt with a Central, PICC or Fol: Yes The following are medically ne: Acosta Catheter Reason for acosta catheter: Strict I&O Subjective Patient was seen and evaluated in follow up in the ICU. Patient is intubated and sedated on ventilator. 30% FiO2. Patient is only responsive to physical touch. K 3.4, BUN 55, INVESTMENT RECOVERY TECHNICIAN 1.98. Chest x-ray showed bilateral airspace disease similar to prior study. vital signs Vital Sign Date Time Temp Pulse Resp B/P (MAP) Pulse Ox O2 Delivery O2 Flow Rate FiO2 03/19/25 13:15 91 14 150/88 (108) 97 03/19/25 13:00 98.1 98.1 03/19/25 12:03 30 03/19/25 12:00 Mechanical Ventilator+ 03/18/25 18:00 2 Total Intake and Output 03/18/25 03/18/25 03/19/25 15:00 23:00 07:00 Intake Total 112 ml 612.5 ml 305.0 ml Output Total 1500 ml 1750 ml Balance 112 ml -887.5 ml -1445.0 ml medications Current Medications Medications Dose Ordered Sig/John Route Start Time Stop Time Status Last Admin Dose Admin Ondansetron HCl 4 mg Q4HP PRN IV 02/19/25 13:45 03/06/25 02:55 4 MG Docusate Sodium 100 mg BIDPRN PRN PO 02/19/25 13:45 03/04/25 17:41 100 MG Acetaminophen 650 mg Q6HP PRN PO 02/19/25 13:45 03/09/25 21:36 650 MG Nitroglycerin 0.4 mg Q5MINP PRN SL 02/19/25 13:45 Diagnostic Test (Pha) 1 strip ACHS 02/19/25 17:00 03/19/25 12:19 1 STRIP Dextrose 50 ml UD PRN IV 02/19/25 15:45 03/14/25 21:04 50 ML Duloxetine HCl 30 mg DAILY PO 02/20/25 10:00 03/19/25 08:00 30 MG Potassium Chloride 100 ml @ 50 mls/hr Q2H IV 02/19/25 23:15 02/20/25 05:14 Cancel Potassium Chloride 100 ml @ 50 mls/hr Q2H IV 02/20/25 07:15 02/20/25 11:14 UNV Insulin Human Regular ACHS SC 02/28/25 17:00 03/19/25 12:20 3 UNITS Gabapentin 100 mg TID PO 03/02/25 14:00 03/19/25 12:20 100 MG Calcium Acetate 1,334 mg TIDWMEALS PO 03/04/25 12:00 03/19/25 12:20 1,334 MG Ergocalciferol 50,000 unit Q7D PO 03/04/25 11:45 03/18/25 12:43 50,000 UNIT Zirconium Oxide 10 gm TID PO 03/07/25 14:00 Cancel Sodium Bicarbonate 50 ml/ Sodium Chloride 1,050 ml @ 100 mls/hr [id number] IV 03/07/25 11:45 Cancel Hydralazine HCl 10 mg Q6HPRN PRN IV 03/11/25 15:30 03/18/25 20:48 10 MG Norepinephrine Bitartrate 250 ml @ 3.75 mls/hr Q24H IV 03/13/25 02:00 03/14/25 13:44 3.75 MLS/HR Midazolam HCl 50 ml @ 1 mls/hr Q24H IV 03/13/25 02:00 03/19/25 09:53 5 MLS/HR Fentanyl Citrate 250 ml @ 2.5 mls/hr Q24H IV 03/13/25 02:30 03/18/25 16:30 10 MLS/HR Ceftriaxone Sodium 50 ml @ 100 mls/hr Q24H IV 03/13/25 04:00 03/19/25 04:19 100 MLS/HR Clindamycin Phosphate 50 ml @ 50 mls/hr Q8HR IV 03/13/25 06:00 03/19/25 12:21 50 MLS/HR Pantoprazole Sodium 40 mg BID IV 03/13/25 10:00 03/19/25 08:00 40 MG Albuterol 2.5 mg Q6HR NEB 03/13/25 12:00 03/19/25 12:04 2.5 MG Ipratropium [place] 0.5 mg Q6HR NEB 03/13/25 12:00 03/19/25 12:04 0.5 MG Saccharomyces Boulardii 250 mg DAILY PO 03/14/25 10:00 03/19/25 08:00 250 MG Enteral Nutritional Formula 1,000 ml 30ML/HR GT 03/14/25 08:45 03/17/25 17:38 1,000 ML Enoxaparin Sodium 30 mg DAILY SC 03/18/25 10:00 03/19/25 08:01 30 MG objective GENERAL: Intubated on ventilator. EYES: PERRL, EOMI. Anicteric. HENT: Moist mucous membranes. LUNGS: Decreased breath sounds. CARDIOVASCULAR: Regular rate and rhythm. ABDOMEN: Soft, non-tender and non-distended. EXTREMITIES: No edema. SKIN: Warm, dry. laboratory and microbiology Laboratory Tests 03/19/25 04:42 03/17/25 05:40 Test 03/19/25 04:42 Range/Units Serum Glucose 188 H 74-106 mg/dL Problem List Multiple acute/subacute strokes. Hypokalemia. Acute kidney injury. Hypertension, newly diagnosed. Insulin-dependent diabetes mellitus. Status post right BKA. Dyslipidemia. Polysubstance use disorder. Left lower extremity cellulitis. Peripheral vascular disease status post right [id number] amputation 6 months ago. Sepsis. Diabetic neuropathy. Assessment/Plan Continued all current supportive medical care. Johnston for pain management. IV antibiotics as ordered. DVT and GI prophylactics. IV Hydralazine for SBP >160. Vasopressors for hemodynamic support. Additional plan as per the hospital course. Critical care time of 45 minutes provided to include time spent evaluation of patient at bedside, when appropriate patient/family education for diagnosis, treatment plan, review of pertinent medical information and discussion of care with specialty providers and PCP. Mechanical ventilator parameters, treatment and adjustments have personally been reviewed by me and treatment plan by cementer has also been reviewed. Dietary Evaluation Review Comments: 1) Esau 1 pk BID 2) Refer Machine Set Up Operator Paper Goods on DC 3) Continue current plan of care Expected Outcomes/Goals: Pt will meet >75% estimated needs Fu 3-5 days Plan discussed with: Other YANIRA WINN MD Mar 19, 2025 14:12
[2025-03-20] VITALS (110 sets, daily range): BP systolic 126–165; BP diastolic 58–96; PULSE 72–112; RESP 13–34; TEMP 97.5–99.1; O2SAT 94–100
[2025-03-20] MEDS: DEXMEDETOMIDINE HCL IN D5W 100 ML IV SCH (04:00)
[2025-03-20 04:52] LABS: Basophils # (auto) 0.1 10 ^3/uL (0-0.2); Basophils % (auto) 0.5 % (0.0-2.0); Eosinophils # (auto) 0.1 10 ^3/uL (0-0.8); Eosinophils % (auto) 0.9 % (0.0-7.0); Hematocrit 23.3 % (36.0-46.0); Hemoglobin 7.8 g/dL (12.2-16.2); Lymphocytes # (auto) 1.7 10 ^3/uL (0.4-5.4); Lymphocytes % (auto) 16.5 % (10.0-50.0); Mean Corpuscular Hemoglobin 27.8 pg (28.0-32.0); Mean Corpuscular Hgb Conc. 33.4 g/dL (32.0-36.0); Mean Corpuscular Volume 83.4 fL (80.0-100.0); Monocytes # (auto) 0.8 10 ^3/uL (0-1.3); Monocytes % (auto) 7.3 % (0.0-12.0); Neutrophils # (auto) 7.9 10 ^3/uL (1.6-8.6); Neutrophils % (auto) 74.8 % (37.0-80.0); Nucleated Red Blood Cells % 0.1 %; Platelet Count (auto) 438 10^3/uL (140-450); Red Cell Distribution Width 16.6 % (11.8-14.3); White Blood Cell 10.5 10^3/uL (4.4-10.8)
[2025-03-20 05:07] LABS: Anion Gap 10 (5-15); Carbon Dioxide 25 mmol/L (20-31); Sodium 143 mmol/L (136-145)
[2025-03-20 05:08] LABS: Calcium 8.8 mg/dL (8.7-10.4); Chloride 108 mmol/L (98-107); Potassium 3.1 mmol/L (3.5-5.1)
[2025-03-20 05:13] LABS: Blood Urea Nitrogen 51 mg/dL (9-23); Glucose 125 mg/dL (74-106)
[2025-03-20] MEDS: POTASSIUM CHL 20MEQ/50ML 50 ML IV ONE ×2 (06:06→10:32)
[2025-03-20] MEDS: SODIUM CHL 0.9% 50 ML IV ONE (10:33)
--- NOTE | 2025-03-20 10:33 | DVHPN2 ---
Subjective Intubated and sedated Reviewed: Care Plan, H&P, Labs, Medications, Previous Orders, Radiology, Other (Consultations) Changes from previous H/P or p: No Changes General: Per HPI Objective Vitals Vital Signs Date Time Temp Pulse Resp B/P (MAP) Pulse Ox O2 Delivery O2 Flow Rate FiO2 03/20/25 09:57 77 24 144/80 (101) 98 30 03/20/25 08:00 Mechanical Ventilator+ 03/20/25 08:00 97.9 97.9 03/18/25 18:00 2 Intake/Output Intake and Output 03/20/25 07:00 Intake Total 866.68 ml Output Total 1675 ml Balance -808.32 ml Intake Oral 220 ml IV Total 646.68 ml Tube Feeding 0 ml Output Urine Total 1675 ml Exam Assess patient will sitting in her wheelchair. General Appearance: Alert, Oriented X3, Cooperative, No acute distress HEENT: Atraumatic, PERRLA, Other (Tongue swelling. Negative air leak around ET tube) Lungs: Clear to auscultation, Normal air movement Cardiovascular: Regular rate, Normal S1, Normal S2 Abdomen: Normal bowel sounds, Soft, No tenderness Extremities: No edema, Normal pulses, Other (Less redness and swelling to left lower extremity) Neuro: Normal speech, Other Skin: Wounds (See nurse notes and pictures) Psych/Mental Status: Mental status NL, Mood NL Medications Current Medications Medications Dose Ordered Sig/John Route Start Time Stop Time Status Last Admin Dose Admin Ondansetron HCl 4 mg Q4HP PRN IV 02/19/25 13:45 03/06/25 02:55 4 MG Docusate Sodium 100 mg BIDPRN PRN PO 02/19/25 13:45 03/04/25 17:41 100 MG Acetaminophen 650 mg Q6HP PRN PO 02/19/25 13:45 03/09/25 21:36 650 MG Nitroglycerin 0.4 mg Q5MINP PRN SL 02/19/25 13:45 Diagnostic Test (Pha) 1 strip ACHS 02/19/25 17:00 03/20/25 06:48 1 STRIP Dextrose 50 ml UD PRN IV 02/19/25 15:45 03/14/25 21:04 50 ML Duloxetine HCl 30 mg DAILY PO 02/20/25 10:00 03/20/25 07:56 30 MG Potassium Chloride 100 ml @ 50 mls/hr Q2H IV 02/19/25 23:15 02/20/25 05:14 Cancel Potassium Chloride 100 ml @ 50 mls/hr Q2H IV 02/20/25 07:15 02/20/25 11:14 UNV Insulin Human Regular ACHS SC 02/28/25 17:00 03/19/25 12:20 3 UNITS Gabapentin 100 mg TID PO 03/02/25 14:00 03/20/25 06:06 100 MG Calcium Acetate 1,334 mg TIDWMEALS PO 03/04/25 12:00 03/20/25 07:57 1,334 MG Ergocalciferol 50,000 unit Q7D PO 03/04/25 11:45 03/18/25 12:43 50,000 UNIT Zirconium Oxide 10 gm TID PO 03/07/25 14:00 Cancel Sodium Bicarbonate 50 ml/ Sodium Chloride 1,050 ml @ 100 mls/hr [id number] IV 03/07/25 11:45 Cancel Hydralazine HCl 10 mg Q6HPRN PRN IV 03/11/25 15:30 03/20/25 09:30 10 MG Norepinephrine Bitartrate 250 ml @ 3.75 mls/hr Q24H IV 03/13/25 02:00 03/14/25 13:44 3.75 MLS/HR Fentanyl Citrate 250 ml @ 2.5 mls/hr Q24H IV 03/13/25 02:30 03/20/25 04:01 20 MLS/HR Ceftriaxone Sodium 50 ml @ 100 mls/hr Q24H IV 03/13/25 04:00 03/20/25 04:00 100 MLS/HR Clindamycin Phosphate 50 ml @ 50 mls/hr Q8HR IV 03/13/25 06:00 03/20/25 06:00 50 MLS/HR Pantoprazole Sodium 40 mg BID IV 03/13/25 10:00 03/20/25 07:57 40 MG Albuterol 2.5 mg Q6HR NEB 03/13/25 12:00 03/20/25 07:00 2.5 MG Ipratropium Fortine 0.5 mg Q6HR NEB 03/13/25 12:00 03/20/25 07:00 0.5 MG Saccharomyces Boulardii 250 mg DAILY PO 03/14/25 10:00 03/20/25 07:57 250 MG Enteral Nutritional Formula 1,000 ml 30ML/HR GT 03/14/25 08:45 03/17/25 17:38 1,000 ML Enoxaparin Sodium 30 mg DAILY SC 03/18/25 10:00 03/20/25 07:57 30 MG Laboratory Results Laboratory Tests 03/20/25 04:33 Chemistry Test 03/20/25 04:33 Calcium Level 8.8 mg/dL (8.7-10.4) Urinalysis Test 02/19/25 17:27 03/04/25 05:00 Urine Color Colorless (Yellow) Urine Clarity Clear (Clear) Urine pH 6.5 (5.0-9.0) Urine Specific [place] 1.008 (1.001-1.035) Urine Protein 2+ (Negative) H Urine Ketones 1+ (Negative) H Urine Blood 1+ /uL (Negative) H Urine Nitrite Negative (Negative) Urine Bilirubin Negative (Negative) Urine Urobilinogen Normal mg/dL (Negative) Urine Leukocyte Esterase Negative /uL (Negative) Urine RBC 6 /hpf (0 - 4) Urine Microscopic WBC 2 /HPF (0-5) Urine Squamous Epithelial Cells Few /hpf (<5) Urine Bacteria None seen /hpf (None Seen) Urine Glucose 2+ mg/dL (Normal) H Urine Creatinine 25.51 mg/dL (30.0-125.0) L Urine Protein/Creatinine Ratio 14.00 Urine Sodium 80 mmol/L (40-220) Urine Total Protein 357.1 mg/dL (1-14) H Blood Gas Results Test 03/20/25 10:04 Arterial Blood pH 7.503 (7.350-7.450) FiO2 % 30.0 Microbiology Microbiology Date/Time Source Procedure Growth Status 03/13/25 05:10 Blood Blood Culture - Final NO GROWTH AFTER 5 DAYS OF INCUBATION. Complete 03/13/25 03:17 Sputum Gram Stain - Final Complete 03/13/25 03:17 Respiratory Culture - Final Presumptive Dionna albicans Complete 03/06/25 14:37 Knee Left Gram Stain - Final Complete 03/06/25 14:37 Knee Left Anaerobic Culture - Final Complete 03/06/25 14:37 Aerobic Culture - Final Staphylococcus aureus Complete 03/04/25 13:29 Aspirate Gram Stain - Final Complete 03/04/25 13:29 Body Fluid Culture - Final Staphylococcus aureus Complete 02/19/25 17:27 Urine - [place] Urine Culture - Final Complete Labs and/or images reviewed: Labs reviewed by me, Image(s) reviewed by me Assessment/Plan Assessment/Plan Impression: Multiple acute/subacute strokes Left lower extremity cellulitis Rule out left septic knee Hypokalemia Acute kidney injury likely hemodynamically mediated due to vasomotor nephropathy Chronic kidney disease Peripheral vascular disease status post right [id number] amputation 6 months ago Poorly controlled type 2 diabetes Sepsis Hypertension Mixed hyperlipidemia Polysubstance use disorder Diabetic neuropathy -? Suicidal ideation -septic bursitis with Staphylococcus aureus -septic shock Angioedema of the tongue Plan: -events: No events overnight. Patient continues to be heavily sedated. CPAP trial today once patient was awake. -PUD prophylaxis -continue Nepro -continue vasopressor therapy to keep map greater than 65 mmHg, currently off -bronchodilators -antibiotics: Continue Rocephin and clindamycin, add Florastor -pulse dose of Lasix -continue PPI -repeat labs, chest x-ray, ABG in a.m. Total time spent with patient discussing and formulating plan of care: 35 minutes. This medical document was created using an electronic medical record system with [employer] dictation system. Although this document has been carefully reviewed, there may still be some phonetic and typographical errors. These areas are purely typographical due to imperfections of the software programs, and do not reflect any compromise in the patient's medical care. Plan discussed with: Patient, Other (rn) My Orders Orders - JUSTIN BONILLA TILE HELPER Procedure Category Date Status Time Dexmedetomidine Hcl PHA 03/19/25 In Process In D5w (Precedex) 14:45 Potassium Chl PHA 03/20/25 In Process 20meq/50ml (Potassium 10:30 Basic Metabolic Panel LAB 03/21/25 Verified 05:00 Basic Metabolic Panel LAB 03/22/25 Verified 05:00 Basic Metabolic Panel LAB 03/23/25 Verified 05:00 Complete Blood Count LAB 03/21/25 Verified 05:00 Complete Blood Count LAB 03/22/25 Verified 05:00 Complete Blood Count LAB 03/23/25 Verified 05:00 Chest Portable XY 03/21/25 Logged 05:00 Chest Portable XY 03/22/25 Logged 05:00 Sodium Chl 0.9% (Ns) PHA 03/20/25 In Process 10:30 Date of Service: Mar 20, 2025 Billing Provider: JUSTIN BONILLA NP Common Visit Codes: [id number] CARE 30-74 MIN JUSTIN BONILLA NP Mar 20, 2025 10:33
--- NOTE | 2025-03-20 10:42 | DVHPN2 ---
Progress Note - Dictate Date Seen: Mar 20, 2025 Medical Necessity Reason Pt with a Central, PICC or Fol: Yes The following are medically ne: Acosta Catheter Reason for acosta catheter: Strict I&O Subjective Mr. Kaur is a 54 years old right-handed female with a history of hypertension, diabetes, dyslipidemia, anxiety, GERD, osteo myelitis status post right BKA, she came [facility] the [facility] on [facility] with a chief complaint of general weakness. He was transferred/ICU on 03/13/25 for ALOC, nasal bleeding and intubation I have seen and examined the patient, I have talked to her nurse, she is responsive to pain. No spontaneous extremity movement When she was on CPAP and less sedation on 03/19/2025, she moved excessively Psychiatry consultation, 02/26/25: 1:1 sitter. Transferred to inpatient psychiatric facility. Cymbalta 30 mg b.i.d. Fentanyl 0 mcg/hour, Versed 0 mg/hour, Precedex 0.5mcg ABG, 03/13/2025: Unremarkable UDS, 02/19/2025: Cannabinoids Plasma alcohol, 02/19/2025: Three Urinalysis, 02/19, : WBC: 2, urine leukocyte esterase WBC/HB/PLT/MCV, 02/20/2025: 21.9/10.9/398/83.1, 03/13/2025: 11.7/6.5/424/85.4 K, 02/19/2025: 1.7, 02/20/2025: 2.1 BUN/CR, 02/20/2025: 33/2.03, 03/13/2025: 51.93 HGB A1c, 06/03/2024: 13.1 Liver function tests, 02/20/2025: Unremarkable TG/HDL/LDL/HDL, 04/11/2024: 180/238/164/43 MAGALIS, 02/21/2025: 1. Technically good study. Sinus rhythm. 2. Left atrial enlargement. 3. Number Valves appear to be structurally normal. 4. Ventricular systolic function is preserved at 60% with normal RV function. 5. Doppler reveals mild TR. No significant mitral or aortic insufficiency. No atrial septal or ventricular septal defects 6. No masses or vegetations discernible. 7. The atrial appendage looks clean, no masses. No atrial or ventricular septal defects as noted. No abnormal shunting. Bubble study was negative 8. The valves appear to be structurally normal. No vegetations or signs of emboli present. Carotid Doppler, 02/20/2025: No hemodynamically significant stenosis noted in the right carotid system. No hemodynamically significant stenosis noted in the left carotid system. Chest X-ray, 03/19/25: 1. Endotracheal tube terminates 4cm from caleb. Other lines and tubes are unchanged in position. 2. Bilateral airspace disease similar to prior study. CT head, : Small age-indeterminate infarct extending from the right jorge radiata into the right basal ganglia. Further evaluation with MRI brain with diffusion-weighted imaging is recommended. CT head, , No acute intracranial abnormality. Multiple subacute bilateral lacunar infarcts as seen on prior MRI. MRI head, 02/19/2025: 1. There are multiple small foci of acute to subacute infarct in the right jorge radiata and right basal ganglia. There are also multiple small acute to subacute infarcts in the left anteromedial frontal lobe and in the left jorge radiata and left basal ganglia. There is no evidence of acute hemorrhage MRI left foot, 02/22/25: Moderate dorsal subcutaneous edema. No evidence of osteomyelitis. No drainable fluid collection noted. Moderate myositis. vital signs Vital Sign Date Time Temp Pulse Resp B/P (MAP) Pulse Ox O2 Delivery O2 Flow Rate FiO2 03/20/25 09:57 77 24 144/80 (101) 98 30 03/20/25 08:00 Mechanical Ventilator+ 03/20/25 08:00 97.9 97.9 03/18/25 18:00 2 Total Intake and Output 03/19/25 03/19/25 03/20/25 15:00 23:00 07:00 Intake Total 139 ml 320 ml 407.68 ml Output Total 775 ml 900 ml Balance 139 ml -455 ml -492.32 ml medications Current Medications Medications Dose Ordered Sig/John Route Start Time Stop Time Status Last Admin Dose Admin Ondansetron HCl 4 mg Q4HP PRN IV 02/19/25 13:45 03/06/25 02:55 4 MG Docusate Sodium 100 mg BIDPRN PRN PO 02/19/25 13:45 03/04/25 17:41 100 MG Acetaminophen 650 mg Q6HP PRN PO 02/19/25 13:45 03/09/25 21:36 650 MG Nitroglycerin 0.4 mg Q5MINP PRN SL 02/19/25 13:45 Diagnostic Test (Pha) 1 strip ACHS 02/19/25 17:00 03/20/25 06:48 1 STRIP Dextrose 50 ml UD PRN IV 02/19/25 15:45 03/14/25 21:04 50 ML Duloxetine HCl 30 mg DAILY PO 02/20/25 10:00 03/20/25 07:56 30 MG Potassium Chloride 100 ml @ 50 mls/hr Q2H IV 02/19/25 23:15 02/20/25 05:14 Cancel Potassium Chloride 100 ml @ 50 mls/hr Q2H IV 02/20/25 07:15 02/20/25 11:14 UNV Insulin Human Regular ACHS SC 02/28/25 17:00 03/19/25 12:20 3 UNITS Gabapentin 100 mg TID PO 03/02/25 14:00 03/20/25 06:06 100 MG Calcium Acetate 1,334 mg TIDWMEALS PO 03/04/25 12:00 03/20/25 07:57 1,334 MG Ergocalciferol 50,000 unit Q7D PO 03/04/25 11:45 03/18/25 12:43 50,000 UNIT Zirconium Oxide 10 gm TID PO 03/07/25 14:00 Cancel Sodium Bicarbonate 50 ml/ Sodium Chloride 1,050 ml @ 100 mls/hr [id number] IV 03/07/25 11:45 Cancel Hydralazine HCl 10 mg Q6HPRN PRN IV 03/11/25 15:30 03/20/25 09:30 10 MG Norepinephrine Bitartrate 250 ml @ 3.75 mls/hr Q24H IV 03/13/25 02:00 03/14/25 13:44 3.75 MLS/HR Fentanyl Citrate 250 ml @ 2.5 mls/hr Q24H IV 03/13/25 02:30 03/20/25 04:01 20 MLS/HR Ceftriaxone Sodium 50 ml @ 100 mls/hr Q24H IV 03/13/25 04:00 03/20/25 04:00 100 MLS/HR Clindamycin Phosphate 50 ml @ 50 mls/hr Q8HR IV 03/13/25 06:00 03/20/25 06:00 50 MLS/HR Pantoprazole Sodium 40 mg BID IV 03/13/25 10:00 03/20/25 07:57 40 MG Albuterol 2.5 mg Q6HR NEB 03/13/25 12:00 03/20/25 07:00 2.5 MG Ipratropium [place] 0.5 mg Q6HR NEB 03/13/25 12:00 03/20/25 07:00 0.5 MG Saccharomyces Boulardii 250 mg DAILY PO 03/14/25 10:00 03/20/25 07:57 250 MG Enteral Nutritional Formula 1,000 ml 30ML/HR GT 03/14/25 08:45 03/17/25 17:38 1,000 ML Enoxaparin Sodium 30 mg DAILY SC 03/18/25 10:00 03/20/25 07:57 30 MG objective The patient is well-nourished and well-developed with no distress. The patient is intubated MUSCULOSKELETAL EXAM: Status post right BKA MENTAL STATUS: Subjective CRANIAL NERVES: Pupils are equal, round and reactive, small. There are corneal reflexes and doll's eyes phenomenon. No signs of facial weakness. There are no gagging or coughing reflexes SENSATION: No responses to pain stimuli. MOTOR: Normal tone in the upper and lower extremity. Normal muscle bulk. No fasciculations. No spontaneous movement. REFLEXES: Deep tendon reflexes are symmetrical. No pathological reflexes. CEREBELLAR/COORDINATION: Deferred GAIT/STATION: deferred. laboratory and microbiology Laboratory Tests 03/20/25 04:33 Test 03/20/25 04:33 Range/Units Serum Glucose 125 H 74-106 mg/dL Problem List Acute respiratory failure Excessive nasal bleeding Come Metabolic encephalopathy Hypoxic encephalopathy Toxic encephalopathy General weakness Multiple acute/subacute strokes Status post right BKA Depression ? Waking up Assessment/Plan Monitoring Supportive treatment EEG ICU Stabilize vitals Respiratory support/vent management Oxygen Antibiotics Aspirin 81 mg daily (HOLD) Cymbalta 30 mg b.i.d. DVT prophylaxis/SCD Quit tobacco smoking completely Wean off sedation as tolerated CPAP trial today More recommendation per clinical course This medical document was created using an electronic medical record system with [employer] dictation system. Although this document has been carefully reviewed, there may still be some phonetic and typographical errors. These areas are purely typographical due to imperfections of the software programs, and do not reflect any compromise in the patient's medical care. Prognosis guarded Dietary Evaluation Review Comments: 1) Esau 1 pk BID 2) Refer Transit Mechanic on DC 3) Continue current plan of care Expected Outcomes/Goals: Pt will meet >75% estimated needs Fu 3-5 days Plan discussed with: Other NEELA RUEDA MD Mar 20, 2025 10:42
[2025-03-20 12:55] LABS: Base Excess -0.3 mmol/L (-2.0-3.0)
--- NOTE | 2025-03-20 20:07 | DVHPN2 ---
Progress Note - Dictate Date Seen: Mar 20, 2025 Medical Necessity Reason Pt with a Central, PICC or Fol: Yes The following are medically ne: Acosta Catheter Reason for acosta catheter: Strict I&O Subjective Patient seen and examined at bedside. Intubated on mechanical ventilator. Overnight events reviewed. vital signs Vital Sign Date Time Temp Pulse Resp B/P (MAP) Pulse Ox O2 Delivery O2 Flow Rate FiO2 03/20/25 18:45 107 16 160/80 (106) 98 03/20/25 18:20 30 03/20/25 18:00 Mechanical Ventilator+ 03/20/25 16:00 98.6 98.6 03/18/25 18:00 2 Total Intake and Output 03/19/25 03/19/25 03/20/25 15:00 23:00 07:00 Intake Total 139 ml 320 ml 407.68 ml Output Total 775 ml 900 ml Balance 139 ml -455 ml -492.32 ml medications Current Medications Medications Dose Ordered Sig/John Route Start Time Stop Time Status Last Admin Dose Admin Ondansetron HCl 4 mg Q4HP PRN IV 02/19/25 13:45 03/06/25 02:55 4 MG Docusate Sodium 100 mg BIDPRN PRN PO 02/19/25 13:45 03/04/25 17:41 100 MG Acetaminophen 650 mg Q6HP PRN PO 02/19/25 13:45 03/09/25 21:36 650 MG Nitroglycerin 0.4 mg Q5MINP PRN SL 02/19/25 13:45 Diagnostic Test (Pha) 1 strip ACHS 02/19/25 17:00 03/20/25 17:38 1 STRIP Dextrose 50 ml UD PRN IV 02/19/25 15:45 03/14/25 21:04 50 ML Duloxetine HCl 30 mg DAILY PO 02/20/25 10:00 03/20/25 07:56 30 MG Potassium Chloride 100 ml @ 50 mls/hr Q2H IV 02/19/25 23:15 02/20/25 05:14 Cancel Potassium Chloride 100 ml @ 50 mls/hr Q2H IV 02/20/25 07:15 02/20/25 11:14 UNV Insulin Human Regular ACHS SC 02/28/25 17:00 03/19/25 12:20 3 UNITS Gabapentin 100 mg TID PO 03/02/25 14:00 03/20/25 12:39 100 MG Calcium Acetate 1,334 mg TIDWMEALS PO 03/04/25 12:00 03/20/25 12:38 1,334 MG Ergocalciferol 50,000 unit Q7D PO 03/04/25 11:45 03/18/25 12:43 50,000 UNIT Zirconium Oxide 10 gm TID PO 03/07/25 14:00 Cancel Sodium Bicarbonate 50 ml/ Sodium Chloride 1,050 ml @ 100 mls/hr [id number] IV 03/07/25 11:45 Cancel Hydralazine HCl 10 mg Q6HPRN PRN IV 03/11/25 15:30 03/20/25 09:30 10 MG Norepinephrine Bitartrate 250 ml @ 3.75 mls/hr Q24H IV 03/13/25 02:00 03/14/25 13:44 3.75 MLS/HR Fentanyl Citrate 250 ml @ 2.5 mls/hr Q24H IV 03/13/25 02:30 03/20/25 04:01 20 MLS/HR Ceftriaxone Sodium 50 ml @ 100 mls/hr Q24H IV 03/13/25 04:00 03/20/25 04:00 100 MLS/HR Clindamycin Phosphate 50 ml @ 50 mls/hr Q8HR IV 03/13/25 06:00 03/20/25 12:39 50 MLS/HR Pantoprazole Sodium 40 mg BID IV 03/13/25 10:00 03/20/25 07:57 40 MG Albuterol 2.5 mg Q6HR NEB 03/13/25 12:00 03/20/25 18:20 2.5 MG Ipratropium [place] 0.5 mg Q6HR NEB 03/13/25 12:00 03/20/25 18:20 0.5 MG Saccharomyces Boulardii 250 mg DAILY PO 03/14/25 10:00 03/20/25 07:57 250 MG Enteral Nutritional Formula 1,000 ml 30ML/HR GT 03/14/25 08:45 03/17/25 17:38 1,000 ML Enoxaparin Sodium 30 mg DAILY SC 03/18/25 10:00 03/20/25 07:57 30 MG objective Gen.: Patient lying in bed in medical ICU. Intubated on mechanical ventilator.. Head: Normocephalic, atraumatic. Eyes: PERRLA. Ears: Normal external anatomy. Throat: Endotracheal tube and orogastric tube in place. Neck: Supple, trachea midline. Chest: Transmitted breath sounds bilaterally. Decreased air entry bilaterally. No wheezing. Bibasilar crackles. Cardiovascular: Positive S1, positive S2. Regular rate and rhythm. Abdomen: Positive bowel sounds in all 4 quadrants. Soft, nontender, nondistended. : Acosta in place. Normal external genitalia. Rectal: Deferred. Skin: Warm, dry. Intact. Extremities: 2+ radial pulses bilaterally. No lower extremity edema. s/p right BKA. Neuro: Off sedation laboratory and microbiology Laboratory Tests 03/20/25 04:33 Test 03/20/25 04:33 Range/Units Serum Glucose 125 H 74-106 mg/dL Assessment/Plan Impression: Acute hypoxic respiratory failure On mechanical ventilator Multiple acute/subacute strokes. Acute kidney injury. Hypertension, newly diagnosed. Insulin-dependent diabetes mellitus. Polysubstance use Peripheral vascular disease, s/p right BKA 6 months ago. Sepsis Events: Remains on vent support On AC mode; RR 24, VT 400, PEEP 5, FiO2 30% Fentanyl drip for analgesia Off Precedex Not following commands Continue antibiotics. Continue bronchodilators Tube feeds for nutritional support Angioedema is improving. CPAP - tolerated for 3 hours, patient became tired Was placed back on full support ABG reviewed, notable for alkalemia CXR on 03/17 showed patchy airspace opacities appear mildly improved but persist. No effusion or pneumothorax Labs and imaging reviewed. Rest of plan as noted below. Plan: s/p intubation on mechanical ventilator. On AC mode; RR 24, VT 400, PEEP 5, FiO2 30% Titrate FIO2 to keep O2 saturation above 90%. VAP bundle. Daily ABG and CXR while intubated Off sedation Continue antibiotics. F/u cultures. Tube feeds for nutritional support Pressors as necessary for hemodynamic support Titrate to keep mean arterial pressure greater than 65 mmHg. Monitor renal function Monitor electrolytes. Supplement as necessary. Monitor ins and outs. SBT/GETACHEW. GI prophylaxis. DVT prophylaxis. Prognosis: Poor given patient's multiple co-morbidities. Condition: Critical Rest of plan per hospitalist and other consultants. A total of 35 minutes of critical care time was spent reviewing the patient record, examining the patient, making a diagnostic and therapeutic plan, discussing this plan with the medical personnel, following up on diagnostic studies and following the patient for clinical stability excluding any and all procedures. At least 50% of this time was spent in direct, [id number] contact. Thank you, FRANCISCO Alanis, for allowing me to participate in this patient's care. Further recommendations will depend on the patient's clinical course. Please do not hesitate to contact me if you have any questions or concerns. This medical document was created using an electronic medical record system with [employer] dictation system. Although these documentations are being carefully reviewed, there may still be some phonetic and typographical changes. The errors are purely typographical, due to imperfection on the software program, and do not reflect any compromise in the patient's medical care. Dietary Evaluation Review Comments: 1) Esau 1 pk BID 2) Refer Open Pit Quarry Supervisor on DC 3) Continue current plan of care Expected Outcomes/Goals: Pt will meet >75% estimated needs Fu 3-5 days Plan discussed with: Other (ASHLEY Vaughn) Critical Care Time(min): 35 LARRY HERRERA MD Mar 20, 2025 20:07
[2025-03-20 21:56] LABS: Hematocrit 24.4 % (36.0-46.0); Mean Corpuscular Hemoglobin 27.3 pg (28.0-32.0); Mean Corpuscular Hgb Conc. 32.7 g/dL (32.0-36.0); Mean Corpuscular Volume 83.4 fL (80.0-100.0); Platelet Count (auto) 456 10^3/uL (140-450); Red Blood Cells 2.92 10^6/uL (4.0-5.20); Red Cell Distribution Width 16.2 % (11.8-14.3); White Blood Cell 11.4 10^3/uL (4.4-10.8)
[2025-03-20 21:57] LABS: Basophils % (manual) 0 (0.0-2.0); Blast Cells 0; Promyelocytes % 0; Reactive Lymphocytes 0
[2025-03-20 22:13] LABS: Sodium 144 mmol/L (136-145)
[2025-03-20 22:14] LABS: Anion Gap 11 (5-15); Band Neutrophils % (manual) 5; Calcium 8.9 mg/dL (8.7-10.4); Carbon Dioxide 25 mmol/L (20-31); Lymphocytes % (manual) 12 (10.0-50.0)
[2025-03-20 22:15] LABS: Anisocytosis Slight; Eosinophils % (manual) 1 (0-7); Metamyelocytes % 2; Monocytes % (manual) 7 (0-12); Myelocytes % 1; Platelet Estimate Increased
[2025-03-20 22:59] LABS: Blood Urea Nitrogen 45 mg/dL (9-23); Chloride 108 mmol/L (98-107); Glucose 158 mg/dL (74-106); Potassium 3.1 mmol/L (3.5-5.1)
--- NOTE | 2025-03-20 23:04 | DVHPN2 ---
Progress Note - Dictate Date Seen: Mar 20, 2025 Medical Necessity Reason Pt with a Central, PICC or Fol: Yes The following are medically ne: Acosta Catheter Reason for acosta catheter: Strict I&O Subjective Patient was seen and evaluated in follow up in the ICU. Patient is intubated and sedated on ventilator. 30% FiO2. Patient responds to painful stimuli. Patient is undergoing CPAP trial. HGB 7.8, HCT 23.3, K 3.1, CL 108, BUN 51, HARVESTER OPERATOR 1.70. vital signs Vital Sign Date Time Temp Pulse Resp B/P (MAP) Pulse Ox O2 Delivery O2 Flow Rate FiO2 03/20/25 12:00 30 03/20/25 12:00 15 96 Mechanical Ventilator+ 03/20/25 12:00 98.2 88 144/80 (101) 98.2 03/18/25 18:00 2 Total Intake and Output 03/19/25 03/19/25 03/20/25 15:00 23:00 07:00 Intake Total 139 ml 320 ml 407.68 ml Output Total 775 ml 900 ml Balance 139 ml -455 ml -492.32 ml medications Current Medications Medications Dose Ordered Sig/John Route Start Time Stop Time Status Last Admin Dose Admin Ondansetron HCl 4 mg Q4HP PRN IV 02/19/25 13:45 03/06/25 02:55 4 MG Docusate Sodium 100 mg BIDPRN PRN PO 02/19/25 13:45 03/04/25 17:41 100 MG Acetaminophen 650 mg Q6HP PRN PO 02/19/25 13:45 03/09/25 21:36 650 MG Nitroglycerin 0.4 mg Q5MINP PRN SL 02/19/25 13:45 Diagnostic Test (Pha) 1 strip ACHS 02/19/25 17:00 03/20/25 11:59 1 STRIP Dextrose 50 ml UD PRN IV 02/19/25 15:45 03/14/25 21:04 50 ML Duloxetine HCl 30 mg DAILY PO 02/20/25 10:00 03/20/25 07:56 30 MG Potassium Chloride 100 ml @ 50 mls/hr Q2H IV 02/19/25 23:15 02/20/25 05:14 Cancel Potassium Chloride 100 ml @ 50 mls/hr Q2H IV 02/20/25 07:15 02/20/25 11:14 UNV Insulin Human Regular ACHS SC 02/28/25 17:00 03/19/25 12:20 3 UNITS Gabapentin 100 mg TID PO 03/02/25 14:00 03/20/25 06:06 100 MG Calcium Acetate 1,334 mg TIDWMEALS PO 03/04/25 12:00 03/20/25 07:57 1,334 MG Ergocalciferol 50,000 unit Q7D PO 03/04/25 11:45 03/18/25 12:43 50,000 UNIT Zirconium Oxide 10 gm TID PO 03/07/25 14:00 Cancel Sodium Bicarbonate 50 ml/ Sodium Chloride 1,050 ml @ 100 mls/hr [id number] IV 03/07/25 11:45 Cancel Hydralazine HCl 10 mg Q6HPRN PRN IV 03/11/25 15:30 03/20/25 09:30 10 MG Norepinephrine Bitartrate 250 ml @ 3.75 mls/hr Q24H IV 03/13/25 02:00 03/14/25 13:44 3.75 MLS/HR Fentanyl Citrate 250 ml @ 2.5 mls/hr Q24H IV 03/13/25 02:30 03/20/25 04:01 20 MLS/HR Ceftriaxone Sodium 50 ml @ 100 mls/hr Q24H IV 03/13/25 04:00 03/20/25 04:00 100 MLS/HR Clindamycin Phosphate 50 ml @ 50 mls/hr Q8HR IV 03/13/25 06:00 03/20/25 06:00 50 MLS/HR Pantoprazole Sodium 40 mg BID IV 03/13/25 10:00 03/20/25 07:57 40 MG Albuterol 2.5 mg Q6HR NEB 03/13/25 12:00 03/20/25 12:02 2.5 MG Ipratropium [place] 0.5 mg Q6HR NEB 03/13/25 12:00 03/20/25 12:02 0.5 MG Saccharomyces Boulardii 250 mg DAILY PO 03/14/25 10:00 03/20/25 07:57 250 MG Enteral Nutritional Formula 1,000 ml 30ML/HR GT 03/14/25 08:45 03/17/25 17:38 1,000 ML Enoxaparin Sodium 30 mg DAILY SC 03/18/25 10:00 03/20/25 07:57 30 MG objective GENERAL: Intubated on ventilator. EYES: PERRL, EOMI. Anicteric. HENT: Moist mucous membranes. LUNGS: Decreased breath sounds. CARDIOVASCULAR: Regular rate and rhythm. ABDOMEN: Soft, non-tender and non-distended. EXTREMITIES: No edema. SKIN: Warm, dry. laboratory and microbiology Laboratory Tests 03/20/25 04:33 Test 03/20/25 04:33 Range/Units Serum Glucose 125 H 74-106 mg/dL Problem List Multiple acute/subacute strokes. Hypokalemia. Acute kidney injury. Hypertension, newly diagnosed. Insulin-dependent diabetes mellitus. Status post right BKA. Dyslipidemia. Polysubstance use disorder. Left lower extremity cellulitis. Peripheral vascular disease status post right [id number] amputation 6 months ago. Sepsis. Diabetic neuropathy. Assessment/Plan Continued all current supportive medical care. [place] for pain management. IV antibiotics as ordered. DVT and GI prophylactics. IV Hydralazine for SBP >160. Vasopressors for hemodynamic support. Additional plan as per the hospital course. Critical care time of 45 minutes provided to include time spent evaluation of patient at bedside, when appropriate patient/family education for diagnosis, treatment plan, review of pertinent medical information and discussion of care with specialty providers and PCP. Mechanical ventilator parameters, treatment and adjustments have personally been reviewed by me and treatment plan by canine deputy has also been reviewed. Dietary Evaluation Review Comments: 1) Esau 1 pk BID 2) Refer Machine Stapler on DC 3) Continue current plan of care Expected Outcomes/Goals: Pt will meet >75% estimated needs Fu 3-5 days Plan discussed with: Other YANIRA WINN MD Mar 20, 2025 12:29
[2025-03-20] MEDS: POTASSIUM CHL 20MEQ/100ML 100 ML IV SCH (23:15)
[2025-03-21] VITALS (100 sets, daily range): BP systolic 113–170; BP diastolic 70–93; PULSE 61–93; RESP 11–28; TEMP 96.8–98.4; O2SAT 95–100
[2025-03-21] MEDS: POTASSIUM CHL 20MEQ/50ML 100 ML IV ONE (00:09)
--- NOTE | 2025-03-21 06:15 | DVH ---
EXAM: XR Chest, 1 View CLINICAL INDICATION: pna TECHNIQUE: Frontal view of the chest. COMPARISON: XY CHEST PORTABLE on DOS: 03/19/25, XY CHEST PORTABLE on DOS: 03/17/25, XY CHEST PORTABLE on DOS: 03/16/25, XY CHEST PORTABLE on DOS: 03/15/25, XY CHEST PORTABLE on DOS: 03/14/25 FINDINGS: LUNGS AND PLEURAL SPACES: Pulmonary congestion and edema. Pneumonia cannot be excluded. No pneumot horax. HEART: Unremarkable. No cardiomegaly. MEDIASTINUM: Unremarkable. Normal mediastinal contour. BONES/JOINTS: Unremarkable. No acute fracture. TUBES, LINES AND DEVICES: Right internal jugular central venous catheter tip in the superior vena c merline. The endotracheal tube (ETT) is in satisfactory position. Enteric tube tip cannot be seen but i s below the diaphragm. OTHER FINDINGS: . . . IMPRESSION: Pulmonary congestion and edema. Pneumonia cannot be excluded.
[2025-03-21] MEDS: METOPROLOL TARTRATE 25 MG TAB GT SCH (09:05)
[2025-03-21] MEDS: FUROSEMIDE 20 MG/2 ML VIAL IV ONE (09:05)
[2025-03-21] MEDS: POTASSIUM EFFERVESENT TAB 25 MEQ GT ONE (09:06)
[2025-03-21 09:48] LABS: Base Excess -1.1 mmol/L (-2.0-3.0)
--- NOTE | 2025-03-21 09:59 | DVHPN2 ---
Subjective Intubated and sedated Reviewed: Care Plan, H&P, Labs, Medications, Previous Orders, Radiology, Other (Consultations) Changes from previous H/P or p: No Changes General: Per HPI Objective Vitals Vital Signs Date Time Temp Pulse Resp B/P (MAP) Pulse Ox O2 Delivery O2 Flow Rate FiO2 03/21/25 09:57 24 95 Mechanical Ventilator+ 30 30 03/21/25 09:57 92 03/21/25 09:43 166/89 (114) 03/21/25 07:45 97.2 97.2 Intake/Output Intake and Output 03/21/25 07:00 Intake Total 1013.200 ml Output Total 2400 ml Balance -1386.800 ml Intake Oral 300 ml IV Total 713.200 ml Tube Feeding 0 ml Output Urine Total 2400 ml Exam Assess patient will sitting in her wheelchair. General Appearance: Alert, Oriented X3, Cooperative, No acute distress HEENT: Atraumatic, PERRLA, Other (Tongue swelling. Negative air leak around ET tube) Lungs: Clear to auscultation, Normal air movement Cardiovascular: Regular rate, Normal S1, Normal S2 Abdomen: Normal bowel sounds, Soft, No tenderness Extremities: No edema, Normal pulses, Other (Less redness and swelling to left lower extremity) Neuro: Normal speech, Other Skin: Wounds (See nurse notes and pictures) Psych/Mental Status: Mental status NL, Mood NL Medications Current Medications Medications Dose Ordered Sig/John Route Start Time Stop Time Status Last Admin Dose Admin Ondansetron HCl 4 mg Q4HP PRN IV 02/19/25 13:45 03/06/25 02:55 4 MG Docusate Sodium 100 mg BIDPRN PRN PO 02/19/25 13:45 03/04/25 17:41 100 MG Acetaminophen 650 mg Q6HP PRN PO 02/19/25 13:45 03/09/25 21:36 650 MG Nitroglycerin 0.4 mg Q5MINP PRN SL 02/19/25 13:45 Diagnostic Test (Pha) 1 strip ACHS 02/19/25 17:00 03/21/25 06:34 1 STRIP Dextrose 50 ml UD PRN IV 02/19/25 15:45 03/14/25 21:04 50 ML Duloxetine HCl 30 mg DAILY PO 02/20/25 10:00 03/21/25 07:36 30 MG Potassium Chloride 100 ml @ 50 mls/hr Q2H IV 02/19/25 23:15 02/20/25 05:14 Cancel Potassium Chloride 100 ml @ 50 mls/hr Q2H IV 02/20/25 07:15 02/20/25 11:14 UNV Insulin Human Regular ACHS SC 02/28/25 17:00 03/20/25 21:45 2 UNITS Gabapentin 100 mg TID PO 03/02/25 14:00 03/21/25 05:30 100 MG Calcium Acetate 1,334 mg TIDWMEALS PO 03/04/25 12:00 03/21/25 07:36 1,334 MG Ergocalciferol 50,000 unit Q7D PO 03/04/25 11:45 03/18/25 12:43 50,000 UNIT Zirconium Oxide 10 gm TID PO 03/07/25 14:00 Cancel Sodium Bicarbonate 50 ml/ Sodium Chloride 1,050 ml @ 100 mls/hr [id number] IV 03/07/25 11:45 Cancel Hydralazine HCl 10 mg Q6HPRN PRN IV 03/11/25 15:30 03/21/25 03:41 10 MG Norepinephrine Bitartrate 250 ml @ 3.75 mls/hr Q24H IV 03/13/25 02:00 03/14/25 13:44 3.75 MLS/HR Fentanyl Citrate 250 ml @ 2.5 mls/hr Q24H IV 03/13/25 02:30 03/20/25 20:53 25 MLS/HR Ceftriaxone Sodium 50 ml @ 100 mls/hr Q24H IV 03/13/25 04:00 03/21/25 03:51 100 MLS/HR Clindamycin Phosphate 50 ml @ 50 mls/hr Q8HR IV 03/13/25 06:00 03/21/25 05:30 50 MLS/HR Pantoprazole Sodium 40 mg BID IV 03/13/25 10:00 03/21/25 07:35 40 MG Albuterol 2.5 mg Q6HR NEB 03/13/25 12:00 03/21/25 06:04 2.5 MG Ipratropium [place] 0.5 mg Q6HR NEB 03/13/25 12:00 03/21/25 06:04 0.5 MG Saccharomyces Boulardii 250 mg DAILY PO 03/14/25 10:00 03/21/25 07:36 250 MG Enteral Nutritional Formula 1,000 ml 30ML/HR GT 03/14/25 08:45 03/17/25 17:38 1,000 ML Enoxaparin Sodium 30 mg DAILY SC 03/18/25 10:00 03/21/25 07:36 30 MG Metoprolol Tartrate 25 mg BID GT 03/21/25 10:00 03/21/25 09:05 25 MG Metoclopramide HCl 10 mg Q8HP PRN GT 03/21/25 10:00 UNV Laboratory Results Laboratory Tests 03/20/25 21:45 03/21/25 04:39 Chemistry Test 03/20/25 21:45 Calcium Level 8.9 mg/dL (8.7-10.4) Urinalysis Test 02/19/25 17:27 03/04/25 05:00 Urine Color Colorless (Yellow) Urine Clarity Clear (Clear) Urine pH 6.5 (5.0-9.0) Urine Specific [place] 1.008 (1.001-1.035) Urine Protein 2+ (Negative) H Urine Ketones 1+ (Negative) H Urine Blood 1+ /uL (Negative) H Urine Nitrite Negative (Negative) Urine Bilirubin Negative (Negative) Urine Urobilinogen Normal mg/dL (Negative) Urine Leukocyte Esterase Negative /uL (Negative) Urine RBC 6 /hpf (0 - 4) Urine Microscopic WBC 2 /HPF (0-5) Urine Squamous Epithelial Cells Few /hpf (<5) Urine Bacteria None seen /hpf (None Seen) Urine Glucose 2+ mg/dL (Normal) H Urine Creatinine 25.51 mg/dL (30.0-125.0) L Urine Protein/Creatinine Ratio 14.00 Urine Sodium 80 mmol/L (40-220) Urine Total Protein 357.1 mg/dL (1-14) H Blood Gas Results Test 03/20/25 12:46 03/21/25 09:33 Arterial Blood pH 7.463 (7.350-7.450) 7.452 (7.350-7.450) FiO2 % 30.0 30.0 Microbiology Microbiology Date/Time Source Procedure Growth Status 03/13/25 05:10 Blood Blood Culture - Final NO GROWTH AFTER 5 DAYS OF INCUBATION. Complete 03/13/25 03:17 Sputum Gram Stain - Final Complete 03/13/25 03:17 Respiratory Culture - Final Presumptive Dion[place] albicans Complete 03/06/25 14:37 Knee Left Gram Stain - Final Complete 03/06/25 14:37 Knee Left Anaerobic Culture - Final Complete 03/06/25 14:37 Aerobic Culture - Final Staphylococcus aureus Complete 03/04/25 13:29 Aspirate Gram Stain - Final Complete 03/04/25 13:29 Body Fluid Culture - Final Staphylococcus aureus Complete 02/19/25 17:27 Urine - [place] Urine Culture - Final Complete Labs and/or images reviewed: Labs reviewed by me, Image(s) reviewed by me Assessment/Plan Assessment/Plan Impression: Multiple acute/subacute strokes Left lower extremity cellulitis Rule out left septic knee Hypokalemia Acute kidney injury likely hemodynamically mediated due to vasomotor nephropathy Chronic kidney disease Peripheral vascular disease status post right [id number] amputation 6 months ago Poorly controlled type 2 diabetes Sepsis Hypertension Mixed hyperlipidemia Polysubstance use disorder Diabetic neuropathy -? Suicidal ideation -septic bursitis with Staphylococcus aureus -septic shock Angioedema of the tongue Plan: -events: No events overnight. Patient was on spontaneous breathing trial for 2 hours. Continues to not be able to follow commands. Patient recent dated. Plans for repeat MRI of the brain. -PUD prophylaxis -continue Nepro -continue vasopressor therapy to keep map greater than 65 mmHg, currently off -bronchodilators -antibiotics: Continue Rocephin and clindamycin, add Florastor -pulse dose of Lasix -continue PPI -repeat labs, chest x-ray, ABG in a.m. Total time spent with patient discussing and formulating plan of care: 35 minutes. This medical document was created using an electronic medical record system with [employer] dictation system. Although this document has been carefully reviewed, there may still be some phonetic and typographical errors. These areas are purely typographical due to imperfections of the software programs, and do not reflect any compromise in the patient's medical care. Plan discussed with: Patient, Other (RN) My Orders Orders - JUSTIN BONILLA AD COMPOSITOR Procedure Category Date Status Time Basic Metabolic Panel LAB 03/22/25 Verified 05:00 Basic Metabolic Panel LAB 03/23/25 Verified 05:00 Complete Blood Count LAB 03/22/25 Verified 05:00 Complete Blood Count LAB 03/23/25 Verified 05:00 Chest Portable XY 03/21/25 Resulted 05:00 Chest Portable XY 03/22/25 Logged 05:00 Cpap Trial For Am ORDERS 03/21/25 Transmitted 07:22 Metoprolol Tartrate PHA 03/21/25 In Process Tablet (Lopressor Ta 10:00 Metoclopramide Oral PHA 03/21/25 Logged Soln (Reglan Oral So 10:00 Date of Service: Mar 21, 2025 Billing Provider: JUSTIN BONILLA NP Common Visit Codes: [id number] CARE 30-74 MIN JUSTIN BONILLA NP Mar 21, 2025 09:59
[2025-03-21] MEDS ORDERED: METOCLOPRAMIDE 10 mg/10ml ORAL soln GT PRN ×2 (10:00→10:15)
[2025-03-21] MEDS: PROPOFOL 100 ML IV ONE (10:24)
[2025-03-21] MEDS: PROPOFOL 100 ML IV SCH (10:24)
--- NOTE | 2025-03-21 12:32 | DVHPN2 ---
Progress Note - Dictate Date Seen: Mar 21, 2025 Medical Necessity Reason Pt with a Central, PICC or Fol: Yes The following are medically ne: Acosta Catheter Reason for acosta catheter: Strict I&O vital signs Vital Sign Date Time Temp Pulse Resp B/P (MAP) Pulse Ox O2 Delivery O2 Flow Rate FiO2 03/21/25 12:15 98.4 81 24 114/72 (86) 98 98.4 03/21/25 11:37 30 03/21/25 11:32 Mechanical Ventilator+ Total Intake and Output 03/20/25 03/20/25 03/21/25 15:00 23:00 07:00 Intake Total 175 ml 394.605 ml 443.595 ml Output Total 1325 ml 1075 ml Balance 175 ml -930.395 ml -631.405 ml medications Current Medications Medications Dose Ordered Sig/John Route Start Time Stop Time Status Last Admin Dose Admin Ondansetron HCl 4 mg Q4HP PRN IV 02/19/25 13:45 03/06/25 02:55 4 MG Docusate Sodium 100 mg BIDPRN PRN PO 02/19/25 13:45 03/04/25 17:41 100 MG Acetaminophen 650 mg Q6HP PRN PO 02/19/25 13:45 03/09/25 21:36 650 MG Nitroglycerin 0.4 mg Q5MINP PRN SL 02/19/25 13:45 Diagnostic Test (Pha) 1 strip ACHS 02/19/25 17:00 03/21/25 10:41 1 STRIP Dextrose 50 ml UD PRN IV 02/19/25 15:45 03/14/25 21:04 50 ML Potassium Chloride 100 ml @ 50 mls/hr Q2H IV 02/19/25 23:15 02/20/25 05:14 Cancel Potassium Chloride 100 ml @ 50 mls/hr Q2H IV 02/20/25 07:15 02/20/25 11:14 UNV Insulin Human Regular ACHS SC 02/28/25 17:00 03/21/25 10:41 2 UNITS Gabapentin 100 mg TID PO 03/02/25 14:00 03/21/25 05:30 100 MG Calcium Acetate 1,334 mg TIDWMEALS PO 03/04/25 12:00 03/21/25 07:36 1,334 MG Ergocalciferol 50,000 unit Q7D PO 03/04/25 11:45 03/18/25 12:43 50,000 UNIT Zirconium Oxide 10 gm TID PO 03/07/25 14:00 Cancel Sodium Bicarbonate 50 ml/ Sodium Chloride 1,050 ml @ 100 mls/hr [id number] IV 03/07/25 11:45 Cancel Hydralazine HCl 10 mg Q6HPRN PRN IV 03/11/25 15:30 03/21/25 03:41 10 MG Norepinephrine Bitartrate 250 ml @ 3.75 mls/hr Q24H IV 03/13/25 02:00 03/14/25 13:44 3.75 MLS/HR Fentanyl Citrate 250 ml @ 2.5 mls/hr Q24H IV 03/13/25 02:30 03/20/25 20:53 25 MLS/HR Ceftriaxone Sodium 50 ml @ 100 mls/hr Q24H IV 03/13/25 04:00 03/21/25 03:51 100 MLS/HR Clindamycin Phosphate 50 ml @ 50 mls/hr Q8HR IV 03/13/25 06:00 03/21/25 05:30 50 MLS/HR Pantoprazole Sodium 40 mg BID IV 03/13/25 10:00 03/21/25 07:35 40 MG Albuterol 2.5 mg Q6HR NEB 03/13/25 12:00 03/21/25 11:37 2.5 MG Ipratropium [place] 0.5 mg Q6HR NEB 03/13/25 12:00 03/21/25 11:37 0.5 MG Saccharomyces Boulardii 250 mg DAILY PO 03/14/25 10:00 03/21/25 07:36 250 MG Enteral Nutritional Formula 1,000 ml 30ML/HR GT 03/14/25 08:45 03/17/25 17:38 1,000 ML Enoxaparin Sodium 30 mg DAILY SC 03/18/25 10:00 03/21/25 07:36 30 MG Metoprolol Tartrate 25 mg BID GT 03/21/25 10:00 03/21/25 09:05 25 MG Metoclopramide HCl 10 mg Q8HP PRN GT 03/21/25 10:15 Propofol 100 ml @ 2.277 mls/ hr Q24H IV 03/21/25 10:15 03/21/25 10:24 2.277 MLS/HR Duloxetine HCl 30 mg DAILY PO 03/22/25 10:00 Lamotrigine 25 mg DAILY PO 03/22/25 10:00 Olanzapine 5 mg DAILY PO 03/22/25 10:00 laboratory and microbiology Laboratory Tests 03/21/25 04:39 03/20/25 21:45 Test 03/20/25 21:45 Range/Units Serum Glucose 158 H 74-106 mg/dL Assessment/Plan Impression Acute hypoxemic respiratory failure Altered mental status Hx of CVA Sepsis Patient seen and examined in ICU Events On mechanical ventilation S/p intubation PEEP 5, FiO2 30% Labs and imaging reviewed ABG reviewed Management Vent support Titrate to maintain sats 90% or above Sedation holiday daily If patient follows commands, proceed to weaning trial Pressure support 05/31, extubate when ready Continue antibiotics F/u cultures Bronchodilators Monitor renal function Monitor electrolytes Supplement as needed Pressors as needed for hemodynamic support To maintain a mean arterial pressure of 65 mmHg Restart all psychiatric medications DVT prophylaxis Critical care time 35 minutes Dietary Evaluation Review Comments: 1) Esau 1 pk BID 2) Refer Disintegrator on DC 3) Continue current plan of care Expected Outcomes/Goals: Pt will meet >75% estimated needs Fu 3-5 days Plan discussed with: Other (Rn) ARUNA BRISENO MD Mar 21, 2025 12:32
--- NOTE | 2025-03-21 15:17 | DVH ---
EXAMINATION: MRI BRAIN HEAD WO CONTRAST INDICATION: Rule out new cva COMPARISON: MRI BRAIN HEAD WO CONTRAST on DOS: 02/19/25 TECHNIQUE: Multiplanar, multisequence magnetic resonance imaging of the brain was performed without t he use of intravenous contrast. FINDINGS: There is a 1.8 cm area of restricted diffusion in the left splenium of the corpus callosum. There is a smaller 0.8 cm focus of restricted diffusion in the left genu of the corpus callosum. There is a 1. 2 cm focus of restricted diffusion in the right posterior jorge radiata . There are smaller foci of restricted diffusion in the right basal ganglia. There are additional punctate foci of restricted dif fusion in the left basal ganglia and left jorge radiata. These likely represent acute to subacute in farcts. There is no evidence of acute hemorrhage. There is no significant edema or mass effect. There is no hydrocephalus or extra-axial fluid collection. The visualized intracranial vasculature de monstrates appropriate flow-voids. The sagittal midline structures appear unremarkable. The craniocer vical junction is within normal limits. The calvarium demonstrates normal marrow signal. There is mod erate amount of fluid in the bilateral mastoid air cells. There is mucosal thickening throughout the paranasal sinuses. Small air-fluid level in the left maxillary sinus. IMPRESSION: 1. Multiple foci of restricted diffusion involving the left corpus callosum, bilateral basal ganglia and right jorge radiata. The largest area involves the left splenium of the corpus callosum. These l ikely represent acute to subacute infarcts. There is no evidence of acute hemorrhage. 2. Moderate amount of fluid in the bilateral mastoid air cells. HS:Y
--- NOTE | 2025-03-21 19:23 | DVHPN2 ---
Progress Note - Dictate Date Seen: Mar 21, 2025 Medical Necessity Reason Pt with a Central, PICC or Fol: Yes The following are medically ne: Acosta Catheter Reason for acosta catheter: Strict I&O Subjective Mr. Kaur is a 54 years old right-handed female with a history of hypertension, diabetes, dyslipidemia, anxiety, GERD, osteo myelitis status post right BKA, she came to the [facility] on 02[facility]19[facility] with a chief complaint of general weakness. He was transferred/ICU on 03/13/25 for ALOC, nasal bleeding and intubation I have seen and examined the patient, I have talked to her nurse, she is not responsive to pain. No spontaneous extremity movement With less sedation, she moved excessively and was trying to pull the lines and tubes Psychiatry consultation, 02/26/25: 1:1 sitter. Transferred to inpatient psychiatric facility. Cymbalta 30 mg b.i.d. Follow MRI brain scan showed new multiple strokes Fentanyl 125 mcg/hour, Versed 4 mg/hour, propofol 20 mcg/minute ABG, 03/13/2025: Unremarkable UDS, 02/19/2025: Cannabinoids Plasma alcohol, 02/19/2025: Three Urinalysis, 02/19, : WBC: 2, urine leukocyte esterase WBC/HB/PLT/MCV, 02/20/2025: 21.9/10.9/398/83.1, 03/13/2025: 11.7/6.5/424/85.4 K, 02/19/2025: 1.7, 02/20/2025: 2.1 BUN/CR, 02/20/2025: 33/2.03, 03/13/2025: 51.93 HGB A1c, 06/03/2024: 13.1 Liver function tests, 02/20/2025: Unremarkable TG/HDL/LDL/HDL, 04/11/2024: 180/238/164/43 MAGALIS, 02/21/2025: 1. Technically good study. Sinus rhythm. 2. Left atrial enlargement. 3. Number Valves appear to be structurally normal. 4. Ventricular systolic function is preserved at 60% with normal RV function. 5. Doppler reveals mild TR. No significant mitral or aortic insufficiency. No atrial septal or ventricular septal defects 6. No masses or vegetations discernible. 7. The atrial appendage looks clean, no masses. No atrial or ventricular septal defects as noted. No abnormal shunting. Bubble study was negative 8. The valves appear to be structurally normal. No vegetations or signs of emboli present. Carotid Doppler, 02/20/2025: No hemodynamically significant stenosis noted in the right carotid system. No hemodynamically significant stenosis noted in the left carotid system. Chest X-ray, 03/19/25: 1. Endotracheal tube terminates 4cm from caleb. Other lines and tubes are unchanged in position. 2. Bilateral airspace disease similar to prior study. CT head, : Small age-indeterminate infarct extending from the right jorge radiata into the right basal ganglia. Further evaluation with MRI brain with diffusion-weighted imaging is recommended. CT head, , No acute intracranial abnormality. Multiple subacute bilateral lacunar infarcts as seen on prior MRI. MRI head, 02/19/2025: 1. There are multiple small foci of acute to subacute infarct in the right jorge radiata and right basal ganglia. There are also multiple small acute to subacute infarcts in the left anteromedial frontal lobe and in the left jorge radiata and left basal ganglia. There is no evidence of acute hemorrhage MR head, 03/21/2025: 1. Multiple foci of restricted diffusion involving the left corpus callosum, bilateral basal ganglia and right jorge radiata. The largest area involves the left splenium of the corpus callosum. These likely represent acute to subacute infarcts. There is no evidence of acute hemorrhage. 2. Moderate amount of fluid in the bilateral mastoid air cells MRI left foot, 02/22/25: Moderate dorsal subcutaneous edema. No evidence of osteomyelitis. No drainable fluid collection noted. Moderate myositis. vital signs Vital Sign Date Time Temp Pulse Resp B/P (MAP) Pulse Ox O2 Delivery O2 Flow Rate FiO2 03/21/25 19:00 74 24 141/78 (99) 99 03/21/25 17:46 30 03/21/25 17:46 Mechanical Ventilator+ 03/21/25 16:00 98.3 98.3 Total Intake and Output 03/20/25 03/20/25 03/21/25 14:59 22:59 06:59 Intake Total 270 ml 381.130 ml 411.800 ml Output Total 1325 ml 1075 ml Balance 270 ml -943.870 ml -663.200 ml medications Current Medications Medications Dose Ordered Sig/John Route Start Time Stop Time Status Last Admin Dose Admin Ondansetron HCl 4 mg Q4HP PRN IV 02/19/25 13:45 03/06/25 02:55 4 MG Docusate Sodium 100 mg BIDPRN PRN PO 02/19/25 13:45 03/04/25 17:41 100 MG Acetaminophen 650 mg Q6HP PRN PO 02/19/25 13:45 03/09/25 21:36 650 MG Nitroglycerin 0.4 mg Q5MINP PRN SL 02/19/25 13:45 Diagnostic Test (Pha) 1 strip ACHS 02/19/25 17:00 03/21/25 16:54 1 STRIP Dextrose 50 ml UD PRN IV 02/19/25 15:45 03/14/25 21:04 50 ML Potassium Chloride 100 ml @ 50 mls/hr Q2H IV 02/19/25 23:15 02/20/25 05:14 Cancel Potassium Chloride 100 ml @ 50 mls/hr Q2H IV 02/20/25 07:15 02/20/25 11:14 UNV Insulin Human Regular ACHS SC 02/28/25 17:00 03/21/25 10:41 2 UNITS Gabapentin 100 mg TID PO 03/02/25 14:00 03/21/25 13:01 100 MG Calcium Acetate 1,334 mg TIDWMEALS PO 03/04/25 12:00 03/21/25 17:30 1,334 MG Ergocalciferol 50,000 unit Q7D PO 03/04/25 11:45 03/18/25 12:43 50,000 UNIT Zirconium Oxide 10 gm TID PO 03/07/25 14:00 Cancel Sodium Bicarbonate 50 ml/ Sodium Chloride 1,050 ml @ 100 mls/hr [id number] IV 03/07/25 11:45 Cancel Hydralazine HCl 10 mg Q6HPRN PRN IV 03/11/25 15:30 03/21/25 03:41 10 MG Norepinephrine Bitartrate 250 ml @ 3.75 mls/hr Q24H IV 03/13/25 02:00 03/14/25 13:44 3.75 MLS/HR Fentanyl Citrate 250 ml @ 2.5 mls/hr Q24H IV 03/13/25 02:30 03/20/25 20:53 25 MLS/HR Ceftriaxone Sodium 50 ml @ 100 mls/hr Q24H IV 03/13/25 04:00 03/21/25 03:51 100 MLS/HR Clindamycin Phosphate 50 ml @ 50 mls/hr Q8HR IV 03/13/25 06:00 03/21/25 13:01 50 MLS/HR Pantoprazole Sodium 40 mg BID IV 03/13/25 10:00 03/21/25 07:35 40 MG Albuterol 2.5 mg Q6HR NEB 03/13/25 12:00 03/21/25 18:38 2.5 MG Ipratropium [place] 0.5 mg Q6HR NEB 03/13/25 12:00 03/21/25 18:38 0.5 MG Saccharomyces Boulardii 250 mg DAILY PO 03/14/25 10:00 03/21/25 07:36 250 MG Enteral Nutritional Formula 1,000 ml 30ML/HR GT 03/14/25 08:45 03/17/25 17:38 1,000 ML Enoxaparin Sodium 30 mg DAILY SC 03/18/25 10:00 03/21/25 07:36 30 MG Metoprolol Tartrate 25 mg BID GT 03/21/25 10:00 03/21/25 09:05 25 MG Metoclopramide HCl 10 mg Q8HP PRN GT 03/21/25 10:15 Propofol 100 ml @ 2.277 mls/ hr Q24H IV 03/21/25 10:15 03/21/25 18:54 22.77 MLS/HR Duloxetine HCl 30 mg DAILY PO 03/22/25 10:00 Lamotrigine 25 mg DAILY PO 03/22/25 10:00 Olanzapine 5 mg DAILY PO 03/22/25 10:00 objective The patient is well-nourished and well-developed with no distress. The patient is intubated MUSCULOSKELETAL EXAM: Status post right BKA MENTAL STATUS: Subjective CRANIAL NERVES: Pupils are equal, round and reactive, small. There are corneal reflexes and doll's eyes phenomenon. No signs of facial weakness. There are no gagging or coughing reflexes SENSATION: No responses to pain stimuli. MOTOR: Normal tone in the upper and lower extremity. Normal muscle bulk. No fasciculations. No spontaneous movement. REFLEXES: Deep tendon reflexes are symmetrical. No pathological reflexes. CEREBELLAR/COORDINATION: Deferred GAIT/STATION: deferred. laboratory and microbiology Laboratory Tests 03/21/25 04:39 03/20/25 21:45 Test 03/20/25 21:45 Range/Units Serum Glucose 158 H 74-106 mg/dL Problem List Acute respiratory failure Excessive nasal bleeding Come Metabolic encephalopathy Hypoxic encephalopathy Toxic encephalopathy General weakness Multiple acute/subacute strokes (MRI head: 02/19/2025, 03/21/2025) Status post right BKA Depression Assessment/Plan Monitoring Supportive treatment EEG ICU Stabilize vitals Respiratory support/vent management Oxygen Antibiotics Aspirin 81 mg daily (HOLD) Cymbalta 30 mg b.i.d. DVT prophylaxis/SCD Quit tobacco smoking completely Wean off sedation as tolerated CPAP trial today More recommendation per clinical course This medical document was created using an electronic medical record system with [employer] dictation system. Although this document has been carefully reviewed, there may still be some phonetic and typographical errors. These areas are purely typographical due to imperfections of the software programs, and do not reflect any compromise in the patient's medical care. Prognosis guarded Dietary Evaluation Review Comments: 1) Esau 1 pk BID 2) Refer [employer] on DC 3) Continue current plan of care Expected Outcomes/Goals: Pt will meet >75% estimated needs Fu 3-5 days Plan discussed with: Other NEELA RUEDA MD Mar 21, 2025 19:23
[2025-03-21] MEDS ORDERED: POTASSIUM CHL 20MEQ/100ML 100 ML IV ONE (20:45)
--- NOTE | 2025-03-21 21:05 | DVHPN2 ---
Progress Note - Dictate Date Seen: Mar 21, 2025 Medical Necessity Reason Pt with a Central, PICC or Fol: Yes The following are medically ne: Acosta Catheter Reason for acosta catheter: Strict I&O Subjective Patient was seen and evaluated in follow up in the ICU. Patient is intubated and sedated on ventilator. 30% FiO2. With less sedation, she moved excessively and was trying to pull the lines and tubes. K 3.4. Chest x-ray shows pulmonary congestion and edema. vital signs Vital Sign Date Time Temp Pulse Resp B/P (MAP) Pulse Ox O2 Delivery O2 Flow Rate FiO2 03/21/25 12:15 98.4 81 24 114/72 (86) 98 98.4 03/21/25 11:37 30 03/21/25 11:32 Mechanical Ventilator+ Total Intake and Output 03/20/25 03/20/25 03/21/25 15:00 23:00 07:00 Intake Total 175 ml 394.605 ml 443.595 ml Output Total 1325 ml 1075 ml Balance 175 ml -930.395 ml -631.405 ml medications Current Medications Medications Dose Ordered Sig/John Route Start Time Stop Time Status Last Admin Dose Admin Ondansetron HCl 4 mg Q4HP PRN IV 02/19/25 13:45 03/06/25 02:55 4 MG Docusate Sodium 100 mg BIDPRN PRN PO 02/19/25 13:45 03/04/25 17:41 100 MG Acetaminophen 650 mg Q6HP PRN PO 02/19/25 13:45 03/09/25 21:36 650 MG Nitroglycerin 0.4 mg Q5MINP PRN SL 02/19/25 13:45 Diagnostic Test (Pha) 1 strip ACHS 02/19/25 17:00 03/21/25 10:41 1 STRIP Dextrose 50 ml UD PRN IV 02/19/25 15:45 03/14/25 21:04 50 ML Potassium Chloride 100 ml @ 50 mls/hr Q2H IV 02/19/25 23:15 02/20/25 05:14 Cancel Potassium Chloride 100 ml @ 50 mls/hr Q2H IV 02/20/25 07:15 02/20/25 11:14 UNV Insulin Human Regular ACHS SC 02/28/25 17:00 03/21/25 10:41 2 UNITS Gabapentin 100 mg TID PO 03/02/25 14:00 03/21/25 13:01 100 MG Calcium Acetate 1,334 mg TIDWMEALS PO 03/04/25 12:00 03/21/25 13:01 1,334 MG Ergocalciferol 50,000 unit Q7D PO 03/04/25 11:45 03/18/25 12:43 50,000 UNIT Zirconium Oxide 10 gm TID PO 03/07/25 14:00 Cancel Sodium Bicarbonate 50 ml/ Sodium Chloride 1,050 ml @ 100 mls/hr [id number] IV 03/07/25 11:45 Cancel Hydralazine HCl 10 mg Q6HPRN PRN IV 03/11/25 15:30 03/21/25 03:41 10 MG Norepinephrine Bitartrate 250 ml @ 3.75 mls/hr Q24H IV 03/13/25 02:00 03/14/25 13:44 3.75 MLS/HR Fentanyl Citrate 250 ml @ 2.5 mls/hr Q24H IV 03/13/25 02:30 03/20/25 20:53 25 MLS/HR Ceftriaxone Sodium 50 ml @ 100 mls/hr Q24H IV 03/13/25 04:00 03/21/25 03:51 100 MLS/HR Clindamycin Phosphate 50 ml @ 50 mls/hr Q8HR IV 03/13/25 06:00 03/21/25 13:01 50 MLS/HR Pantoprazole Sodium 40 mg BID IV 03/13/25 10:00 03/21/25 07:35 40 MG Albuterol 2.5 mg Q6HR NEB 03/13/25 12:00 03/21/25 11:37 2.5 MG Ipratropium [place] 0.5 mg Q6HR NEB 03/13/25 12:00 03/21/25 11:37 0.5 MG Saccharomyces Boulardii 250 mg DAILY PO 03/14/25 10:00 03/21/25 07:36 250 MG Enteral Nutritional Formula 1,000 ml 30ML/HR GT 03/14/25 08:45 03/17/25 17:38 1,000 ML Enoxaparin Sodium 30 mg DAILY SC 03/18/25 10:00 03/21/25 07:36 30 MG Metoprolol Tartrate 25 mg BID GT 03/21/25 10:00 03/21/25 09:05 25 MG Metoclopramide HCl 10 mg Q8HP PRN GT 03/21/25 10:15 Propofol 100 ml @ 2.277 mls/ hr Q24H IV 03/21/25 10:15 03/21/25 10:24 2.277 MLS/HR Duloxetine HCl 30 mg DAILY PO 03/22/25 10:00 Lamotrigine 25 mg DAILY PO 03/22/25 10:00 Olanzapine 5 mg DAILY PO 03/22/25 10:00 objective GENERAL: Intubated on ventilator. EYES: PERRL, EOMI. Anicteric. HENT: Moist mucous membranes. LUNGS: Decreased breath sounds. CARDIOVASCULAR: Regular rate and rhythm. ABDOMEN: Soft, non-tender and non-distended. EXTREMITIES: No edema. SKIN: Warm, dry. laboratory and microbiology Laboratory Tests 03/21/25 04:39 03/20/25 21:45 Test 03/20/25 21:45 Range/Units Serum Glucose 158 H 74-106 mg/dL Problem List Multiple acute/subacute strokes. Hypokalemia. Acute kidney injury. Hypertension, newly diagnosed. Insulin-dependent diabetes mellitus. Status post right BKA. Dyslipidemia. Polysubstance use disorder. Left lower extremity cellulitis. Peripheral vascular disease status post right [id number] amputation 6 months ago. Sepsis. Diabetic neuropathy. Assessment/Plan Continued all current supportive medical care. [place] for pain management. IV antibiotics as ordered. DVT and GI prophylactics. IV Hydralazine for SBP >160. Vasopressors for hemodynamic support. Additional plan as per the hospital course. Critical care time of 45 minutes provided to include time spent evaluation of patient at bedside, when appropriate patient/family education for diagnosis, treatment plan, review of pertinent medical information and discussion of care with specialty providers and PCP. Mechanical ventilator parameters, treatment and adjustments have personally been reviewed by me and treatment plan by pipe layer has also been reviewed. Dietary Evaluation Review Comments: 1) Esau 1 pk BID 2) Refer [employer] Software Developer on DC 3) Continue current plan of care Expected Outcomes/Goals: Pt will meet >75% estimated needs Fu 3-5 days Plan discussed with: Other YANIRA WINN MD Mar 21, 2025 13:05
[2025-03-21] MEDS: POTASSIUM CHL 20MEQ/50ML 50 ML IV ONE (21:29)
[2025-03-22] VITALS (107 sets, daily range): BP systolic 97–163; BP diastolic 57–84; PULSE 60–87; RESP 7–24; TEMP 95.1–100.4; O2SAT 91–100
[2025-03-22 06:13] LABS: White Blood Cell 10.9 10^3/uL (4.4-10.8)
[2025-03-22 06:17] LABS: Hemoglobin 7.7 g/dL (12.2-16.2); Mean Corpuscular Hemoglobin 27.8 pg (28.0-32.0); Mean Corpuscular Hgb Conc. 33.3 g/dL (32.0-36.0); Mean Corpuscular Volume 83.6 fL (80.0-100.0); Platelet Count (auto) 463 10^3/uL (140-450); Red Blood Cells 2.76 10^6/uL (4.0-5.20); Red Cell Distribution Width 16.3 % (11.8-14.3)
[2025-03-22 06:29] LABS: Anion Gap 11 (5-15); Carbon Dioxide 23 mmol/L (20-31); Sodium 144 mmol/L (136-145)
[2025-03-22 06:30] LABS: Calcium 8.9 mg/dL (8.7-10.4)
[2025-03-22 06:35] LABS: BUN/Creatinine Ratio 27.3 (10.0-20.0)
[2025-03-22 06:40] LABS: Base Excess 1.9 mmol/L (-2.0-3.0)
[2025-03-22 06:42] LABS: Blood Urea Nitrogen 36 mg/dL (9-23); Chloride 110 mmol/L (98-107); Glucose 113 mg/dL (74-106); Potassium 3.1 mmol/L (3.5-5.1)
--- NOTE | 2025-03-22 06:53 | DVH ---
CHEST RADIOGRAPH Indication: pna Technique: Single frontal view of the chest was obtained COMPARISON: XY CHEST PORTABLE on DOS: 03/21/25, XY CHEST PORTABLE on DOS: 03/19/25, XY CHEST PORTABLE o n DOS: 03/17/25, XY CHEST PORTABLE on DOS: 03/16/25, XY CHEST PORTABLE on DOS: 03/15/25 FINDINGS: Lines and Tubes: Unchanged. Lungs: Mild interval progression in diffuse bilateral pulmonary airspace disease with progression of consolidation of the medial right lower lung zone and left lung base. Small bilateral pleural effusio ns are not excluded. No pneumothorax. Cardiomediastinal contours: Unremarkable Bones: Unremarkable IMPRESSION: 1. Interval progression of diffuse pulmonary airspace disease with progressive consolidation of the m edial right lower lung zone and left lung base. Small bilateral pleural effusions not excluded. 2. Lines and tubes unchanged.
[2025-03-22 06:58] LABS: Basophils % (manual) 0 (0.0-2.0); Blast Cells 0; Metamyelocytes % 0; Myelocytes % 0; Promyelocytes % 0; Reactive Lymphocytes 0
[2025-03-22] MEDS: DULoxetine HCL 30 MG CAP PO SCH (08:37)
[2025-03-22] MEDS: lamoTRIgine 25 MG TAB PO SCH (08:37)
[2025-03-22] MEDS: OLANZapine 5 MG TAB PO SCH (08:38)
[2025-03-22 08:49] LABS: Band Neutrophils % (manual) 2; Eosinophils % (manual) 1 (0-7); Lymphocytes % (manual) 13 (10.0-50.0); Monocytes % (manual) 4 (0-12)
[2025-03-22 08:50] LABS: Platelet Estimate Increased
[2025-03-22] MEDS: POTASSIUM CHL 20MEQ/50ML 50 ML IV SCH (09:29)
--- NOTE | 2025-03-22 12:29 | DVHPN2 ---
Progress Note - Dictate Date Seen: Mar 22, 2025 Medical Necessity Reason Pt with a Central, PICC or Fol: Yes The following are medically ne: Acosta Catheter Reason for acosta catheter: Strict I&O vital signs Vital Sign Date Time Temp Pulse Resp B/P (MAP) Pulse Ox O2 Delivery O2 Flow Rate FiO2 03/22/25 12:14 74 24 137/77 (97) 96 40 03/22/25 10:00 Mechanical Ventilator+ 03/22/25 08:00 100.4 100.4 Total Intake and Output 03/21/25 03/21/25 03/22/25 15:00 23:00 07:00 Intake Total 269.728 ml 665.599 ml 564.858 ml Output Total 1900 ml 700 ml Balance 269.728 ml -1234.401 ml -135.142 ml medications Current Medications Medications Dose Ordered Sig/John Route Start Time Stop Time Status Last Admin Dose Admin Ondansetron HCl 4 mg Q4HP PRN IV 02/19/25 13:45 03/06/25 02:55 4 MG Docusate Sodium 100 mg BIDPRN PRN PO 02/19/25 13:45 03/04/25 17:41 100 MG Acetaminophen 650 mg Q6HP PRN PO 02/19/25 13:45 03/09/25 21:36 650 MG Nitroglycerin 0.4 mg Q5MINP PRN SL 02/19/25 13:45 Diagnostic Test (Pha) 1 strip ACHS 02/19/25 17:00 03/22/25 11:30 1 STRIP Dextrose 50 ml UD PRN IV 02/19/25 15:45 03/14/25 21:04 50 ML Potassium Chloride 100 ml @ 50 mls/hr Q2H IV 02/19/25 23:15 02/20/25 05:14 Cancel Potassium Chloride 100 ml @ 50 mls/hr Q2H IV 02/20/25 07:15 02/20/25 11:14 UNV Insulin Human Regular ACHS SC 02/28/25 17:00 03/21/25 10:41 2 UNITS Gabapentin 100 mg TID PO 03/02/25 14:00 03/22/25 06:39 100 MG Calcium Acetate 1,334 mg TIDWMEALS PO 03/04/25 12:00 03/22/25 08:38 1,334 MG Ergocalciferol 50,000 unit Q7D PO 03/04/25 11:45 03/18/25 12:43 50,000 UNIT Zirconium Oxide 10 gm TID PO 03/07/25 14:00 Cancel Sodium Bicarbonate 50 ml/ Sodium Chloride 1,050 ml @ 100 mls/hr [id number] IV 03/07/25 11:45 Cancel Hydralazine HCl 10 mg Q6HPRN PRN IV 03/11/25 15:30 03/21/25 03:41 10 MG Norepinephrine Bitartrate 250 ml @ 3.75 mls/hr Q24H IV 03/13/25 02:00 03/14/25 13:44 3.75 MLS/HR Fentanyl Citrate 250 ml @ 2.5 mls/hr Q24H IV 03/13/25 02:30 03/22/25 09:30 20 MLS/HR Ceftriaxone Sodium 50 ml @ 100 mls/hr Q24H IV 03/13/25 04:00 03/22/25 04:14 100 MLS/HR Clindamycin Phosphate 50 ml @ 50 mls/hr Q8HR IV 03/13/25 06:00 03/22/25 06:33 50 MLS/HR Pantoprazole Sodium 40 mg BID IV 03/13/25 10:00 03/22/25 08:37 40 MG Albuterol 2.5 mg Q6HR NEB 03/13/25 12:00 03/22/25 06:38 2.5 MG Ipratropium [place] 0.5 mg Q6HR NEB 03/13/25 12:00 03/22/25 06:38 0.5 MG Saccharomyces Boulardii 250 mg DAILY PO 03/14/25 10:00 03/22/25 08:38 250 MG Enteral Nutritional Formula 1,000 ml 30ML/HR GT 03/14/25 08:45 03/22/25 08:00 1,000 ML Enoxaparin Sodium 30 mg DAILY SC 03/18/25 10:00 03/22/25 08:54 30 MG Metoprolol Tartrate 25 mg BID GT 03/21/25 10:00 03/22/25 08:38 25 MG Metoclopramide HCl 10 mg Q8HP PRN GT 03/21/25 10:15 Propofol 100 ml @ 2.277 mls/ hr Q24H IV 03/21/25 10:15 03/22/25 09:29 18.216 MLS/HR Duloxetine HCl 30 mg DAILY PO 03/22/25 10:00 03/22/25 08:37 30 MG Lamotrigine 25 mg DAILY PO 03/22/25 10:00 03/22/25 08:37 25 MG Olanzapine 5 mg DAILY PO 03/22/25 10:00 03/22/25 08:38 5 MG Potassium Chloride 50 ml @ 25 mls/hr Q2H IV 03/22/25 09:00 03/22/25 12:59 03/22/25 11:30 25 MLS/HR laboratory and microbiology Laboratory Tests 03/22/25 05:17 Test 03/22/25 05:17 Range/Units Serum Glucose 113 H 74-106 mg/dL Assessment/Plan Impression Acute hypoxemic respiratory failure Altered mental status Hx of CVA Sepsis Patient seen and examined in ICU Events On mechanical ventilation S/p intubation PEEP 5, FiO2 30% Labs and imaging reviewed ABG reviewed Management Vent support Titrate to maintain sats 90% or above Sedation holiday daily If patient follows commands, proceed to weaning trial Pressure support 05/31, extubate when ready Continue antibiotics F/u cultures Bronchodilators Monitor renal function Monitor electrolytes Supplement as needed Pressors as needed for hemodynamic support To maintain a mean arterial pressure of 65 mmHg Restart all psychiatric medications DVT prophylaxis Critical care time 35 minutes Dietary Evaluation Review Comments: 1) [place] 1 pk BID 2) Refer Pharmacovigilance Scientist on DC 3) Continue current plan of care Expected Outcomes/Goals: Pt will meet >75% estimated needs Fu 3-5 days Plan discussed with: Other (rn) ARUNA BRISENO MD Mar 22, 2025 12:29
[2025-03-22] MEDS: MAGNESIUM SULFATE 1GM/100ML 100 ML IV ONE (13:45)
--- NOTE | 2025-03-22 13:57 | DVHPN2 ---
Subjective Intubated and sedated Reviewed: Care Plan, H&P, Labs, Medications, Previous Orders, Radiology, Other (Consultations) Changes from previous H/P or p: No Changes Objective Vitals Vital Signs Date Time Temp Pulse Resp B/P (MAP) Pulse Ox O2 Delivery O2 Flow Rate FiO2 03/22/25 13:15 74 24 129/72 (91) 96 03/22/25 12:14 40 03/22/25 12:00 98.0 98.0 03/22/25 12:00 Mechanical Ventilator+ Intake/Output Intake and Output 03/22/25 07:00 Intake Total 1500.185 ml Output Total 2600 ml Balance -1099.815 ml Intake Oral 320 ml IV Total 1068.185 ml Tube Feeding 112 ml Output Urine Total 2600 ml Stool Total 0 ml General Appearance: Other (Intubated and sedated) HEENT: Atraumatic Lungs: Other (Mechanical ventilation sounds) Cardiovascular: Regular rate, Normal S1, Normal S2 Abdomen: Normal bowel sounds, Soft Genitourinary: Other (Almaraz's) Extremities: Other (Right BKA) Neuro: Other (Intubated and sedated) Skin: Wounds (See nurse notes and pictures) Psych/Mental Status: Other (Intubated and sedated) Medications Current Medications Medications Dose Ordered Sig/John Route Start Time Stop Time Status Last Admin Dose Admin Ondansetron HCl 4 mg Q4HP PRN IV 02/19/25 13:45 03/06/25 02:55 4 MG Docusate Sodium 100 mg BIDPRN PRN PO 02/19/25 13:45 03/04/25 17:41 100 MG Acetaminophen 650 mg Q6HP PRN PO 02/19/25 13:45 03/09/25 21:36 650 MG Nitroglycerin 0.4 mg Q5MINP PRN SL 02/19/25 13:45 Diagnostic Test (Pha) 1 strip ACHS 02/19/25 17:00 03/22/25 11:30 1 STRIP Dextrose 50 ml UD PRN IV 02/19/25 15:45 03/14/25 21:04 50 ML Potassium Chloride 100 ml @ 50 mls/hr Q2H IV 02/19/25 23:15 02/20/25 05:14 Cancel Potassium Chloride 100 ml @ 50 mls/hr Q2H IV 02/20/25 07:15 02/20/25 11:14 UNV Insulin Human Regular ACHS SC 02/28/25 17:00 03/21/25 10:41 2 UNITS Gabapentin 100 mg TID PO 03/02/25 14:00 03/22/25 13:45 100 MG Calcium Acetate 1,334 mg TIDWMEALS PO 03/04/25 12:00 03/22/25 13:44 1,334 MG Ergocalciferol 50,000 unit Q7D PO 03/04/25 11:45 03/18/25 12:43 50,000 UNIT Zirconium Oxide 10 gm TID PO 03/07/25 14:00 Cancel Sodium Bicarbonate 50 ml/ Sodium Chloride 1,050 ml @ 100 mls/hr [id number] IV 03/07/25 11:45 Cancel Hydralazine HCl 10 mg Q6HPRN PRN IV 03/11/25 15:30 03/21/25 03:41 10 MG Norepinephrine Bitartrate 250 ml @ 3.75 mls/hr Q24H IV 03/13/25 02:00 03/14/25 13:44 3.75 MLS/HR Fentanyl Citrate 250 ml @ 2.5 mls/hr Q24H IV 03/13/25 02:30 03/22/25 09:30 20 MLS/HR Ceftriaxone Sodium 50 ml @ 100 mls/hr Q24H IV 03/13/25 04:00 03/22/25 04:14 100 MLS/HR Clindamycin Phosphate 50 ml @ 50 mls/hr Q8HR IV 03/13/25 06:00 03/22/25 13:45 50 MLS/HR Pantoprazole Sodium 40 mg BID IV 03/13/25 10:00 03/22/25 08:37 40 MG Albuterol 2.5 mg Q6HR NEB 03/13/25 12:00 03/22/25 12:32 2.5 MG Ipratropium [place] 0.5 mg Q6HR NEB 03/13/25 12:00 03/22/25 12:32 0.5 MG Saccharomyces Boulardii 250 mg DAILY PO 03/14/25 10:00 03/22/25 08:38 250 MG Enteral Nutritional Formula 1,000 ml 30ML/HR GT 03/14/25 08:45 03/22/25 08:00 1,000 ML Enoxaparin Sodium 30 mg DAILY SC 03/18/25 10:00 03/22/25 08:54 30 MG Metoprolol Tartrate 25 mg BID GT 03/21/25 10:00 03/22/25 08:38 25 MG Metoclopramide HCl 10 mg Q8HP PRN GT 03/21/25 10:15 Propofol 100 ml @ 2.277 mls/ hr Q24H IV 03/21/25 10:15 03/22/25 09:29 18.216 MLS/HR Duloxetine HCl 30 mg DAILY PO 03/22/25 10:00 03/22/25 08:37 30 MG Lamotrigine 25 mg DAILY PO 03/22/25 10:00 03/22/25 08:37 25 MG Olanzapine 5 mg DAILY PO 03/22/25 10:00 03/22/25 08:38 5 MG Laboratory Results Laboratory Tests 03/22/25 05:17 Chemistry Test 03/22/25 05:17 Calcium Level 8.9 mg/dL (8.7-10.4) Magnesium Level 1.7 mg/dL (1.6-2.6) Urinalysis Test 02/19/25 17:27 03/04/25 05:00 Urine Color Colorless (Yellow) Urine Clarity Clear (Clear) Urine pH 6.5 (5.0-9.0) Urine Specific [place] 1.008 (1.001-1.035) Urine Protein 2+ (Negative) H Urine Ketones 1+ (Negative) H Urine Blood 1+ /uL (Negative) H Urine Nitrite Negative (Negative) Urine Bilirubin Negative (Negative) Urine Urobilinogen Normal mg/dL (Negative) Urine Leukocyte Esterase Negative /uL (Negative) Urine RBC 6 /hpf (0 - 4) Urine Microscopic WBC 2 /HPF (0-5) Urine Squamous Epithelial Cells Few /hpf (<5) Urine Bacteria None seen /hpf (None Seen) Urine Glucose 2+ mg/dL (Normal) H Urine Creatinine 25.51 mg/dL (30.0-125.0) L Urine Protein/Creatinine Ratio 14.00 Urine Sodium 80 mmol/L (40-220) Urine Total Protein 357.1 mg/dL (1-14) H Blood Gas Results Test 03/22/25 06:32 Arterial Blood pH 7.557 (7.350-7.450) FiO2 % 30.0 Microbiology Microbiology Date/Time Source Procedure Growth Status 03/13/25 05:10 Blood Blood Culture - Final NO GROWTH AFTER 5 DAYS OF INCUBATION. Complete 03/13/25 03:17 Sputum Gram Stain - Final Complete 03/13/25 03:17 Respiratory Culture - Final Presumptive Dionna albicans Complete 03/06/25 14:37 Knee Left Gram Stain - Final Complete 03/06/25 14:37 Knee Left Anaerobic Culture - Final Complete 03/06/25 14:37 Aerobic Culture - Final Staphylococcus aureus Complete 03/04/25 13:29 Aspirate Gram Stain - Final Complete 03/04/25 13:29 Body Fluid Culture - Final Staphylococcus aureus Complete 02/19/25 17:27 Urine - [place] Urine Culture - Final Complete Labs and/or images reviewed: Labs reviewed by me, Image(s) reviewed by me Assessment/Plan Assessment/Plan Covering: Acute hypoxic/metabolic/toxic encephalopathy Acute hypoxic respiratory failure Severe sepsis with leukocytosis and fever due to soft tissue infection/cellulitis and suspected left knee infection Multiple acute/subacute strokes Electrolytes imbalance with hypokalemia and hypomagnesemia TATIANNA; most likely vasomotor nephropathy in the setting of sepsis; avoid nephrotoxic agents; nephrology is following; morning labs pending; continue monitoring Uncontrolled diabetes mellitus type 2 with hyperglycemia PAD status post right BKA Multiple left foot diabetic ulcers Polysubstance (marijuana and tobacco) use disorder Obesity Reviewed lab work including ABGs Reviewed imaging studies including chest x-rays Reviewed available cultures Continue mechanical ventilation for oxygen therapy Continue sedation as indicated Continue IV antibiotics Avoid nephrotoxic agents Continue insulin therapy with hypoglycemia protocol Cardiology, Neurology, and pulmonology are following Continue close monitoring Critical care time of 99 minutes Late Entry. This medical document was created using an electronic medical record system with computerized dictation system. Although this document has been carefully reviewed, there might still be some phonetic and typographical errors. These areas are purely typographical due to imperfections of the software programs, and do not reflect any compromise in the patient's medical care. Plan discussed with: Other (Nurse) Date of Service: Mar 22, 2025 Billing Provider: JOLYNN HAAS MD Common Visit Codes: [id number] CARE 30-74 MIN (99 minutes), [id number] CARE-EACH +30MIN JOLYNN HAAS MD Mar 22, 2025 13:57
--- NOTE | 2025-03-22 19:16 | DVHPN2 ---
Progress Note - Dictate Date Seen: Mar 22, 2025 Medical Necessity Reason Pt with a Central, PICC or Fol: Yes The following are medically ne: Acosta Catheter Reason for acosta catheter: Strict I&O Subjective Patient was seen and evaluated in follow up in the ICU. Patient is intubated and sedated on ventilator. 40% FiO2. Overnight, the patient became hypothermic, requiring and warming measures. WBC 10.9, HGB 7.7, HCT 23, K 3.1, BUN 36, PRIMARY SPECIAL EDUCATOR 1.32. MRI brain shows multiple foci of restricted diffusion involving the left corpus callosum, bilateral basal ganglia and right jorge radiata. The largest area involves the left splenium of the corpus callosum. These likely represent acute to subacute infarcts. There is no evidence of acute hemorrhage.Moderate amount of fluid in the bilateral mastoid air cells. vital signs Vital Sign Date Time Temp Pulse Resp B/P (MAP) Pulse Ox O2 Delivery O2 Flow Rate FiO2 03/22/25 12:45 74 24 129/70 (89) 96 03/22/25 12:14 40 03/22/25 12:00 98.0 98.0 03/22/25 12:00 Mechanical Ventilator+ Total Intake and Output 03/21/25 03/21/25 03/22/25 15:00 23:00 07:00 Intake Total 269.728 ml 665.599 ml 564.858 ml Output Total 1900 ml 700 ml Balance 269.728 ml -1234.401 ml -135.142 ml medications Current Medications Medications Dose Ordered Sig/John Route Start Time Stop Time Status Last Admin Dose Admin Ondansetron HCl 4 mg Q4HP PRN IV 02/19/25 13:45 03/06/25 02:55 4 MG Docusate Sodium 100 mg BIDPRN PRN PO 02/19/25 13:45 03/04/25 17:41 100 MG Acetaminophen 650 mg Q6HP PRN PO 02/19/25 13:45 03/09/25 21:36 650 MG Nitroglycerin 0.4 mg Q5MINP PRN SL 02/19/25 13:45 Diagnostic Test (Pha) 1 strip ACHS 02/19/25 17:00 03/22/25 11:30 1 STRIP Dextrose 50 ml UD PRN IV 02/19/25 15:45 03/14/25 21:04 50 ML Potassium Chloride 100 ml @ 50 mls/hr Q2H IV 02/19/25 23:15 02/20/25 05:14 Cancel Potassium Chloride 100 ml @ 50 mls/hr Q2H IV 02/20/25 07:15 02/20/25 11:14 UNV Insulin Human Regular ACHS SC 02/28/25 17:00 03/21/25 10:41 2 UNITS Gabapentin 100 mg TID PO 03/02/25 14:00 03/22/25 06:39 100 MG Calcium Acetate 1,334 mg TIDWMEALS PO 03/04/25 12:00 03/22/25 08:38 1,334 MG Ergocalciferol 50,000 unit Q7D PO 03/04/25 11:45 03/18/25 12:43 50,000 UNIT Zirconium Oxide 10 gm TID PO 03/07/25 14:00 Cancel Sodium Bicarbonate 50 ml/ Sodium Chloride 1,050 ml @ 100 mls/hr [id number] IV 03/07/25 11:45 Cancel Hydralazine HCl 10 mg Q6HPRN PRN IV 03/11/25 15:30 03/21/25 03:41 10 MG Norepinephrine Bitartrate 250 ml @ 3.75 mls/hr Q24H IV 03/13/25 02:00 03/14/25 13:44 3.75 MLS/HR Fentanyl Citrate 250 ml @ 2.5 mls/hr Q24H IV 03/13/25 02:30 03/22/25 09:30 20 MLS/HR Ceftriaxone Sodium 50 ml @ 100 mls/hr Q24H IV 03/13/25 04:00 03/22/25 04:14 100 MLS/HR Clindamycin Phosphate 50 ml @ 50 mls/hr Q8HR IV 03/13/25 06:00 03/22/25 06:33 50 MLS/HR Pantoprazole Sodium 40 mg BID IV 03/13/25 10:00 03/22/25 08:37 40 MG Albuterol 2.5 mg Q6HR NEB 03/13/25 12:00 03/22/25 12:32 2.5 MG Ipratropium [place] 0.5 mg Q6HR NEB 03/13/25 12:00 03/22/25 12:32 0.5 MG Saccharomyces Boulardii 250 mg DAILY PO 03/14/25 10:00 03/22/25 08:38 250 MG Enteral Nutritional Formula 1,000 ml 30ML/HR GT 03/14/25 08:45 03/22/25 08:00 1,000 ML Enoxaparin Sodium 30 mg DAILY SC 03/18/25 10:00 03/22/25 08:54 30 MG Metoprolol Tartrate 25 mg BID GT 03/21/25 10:00 03/22/25 08:38 25 MG Metoclopramide HCl 10 mg Q8HP PRN GT 03/21/25 10:15 Propofol 100 ml @ 2.277 mls/ hr Q24H IV 03/21/25 10:15 03/22/25 09:29 18.216 MLS/HR Duloxetine HCl 30 mg DAILY PO 03/22/25 10:00 03/22/25 08:37 30 MG Lamotrigine 25 mg DAILY PO 03/22/25 10:00 03/22/25 08:37 25 MG Olanzapine 5 mg DAILY PO 03/22/25 10:00 03/22/25 08:38 5 MG objective GENERAL: Intubated on ventilator. EYES: PERRL, EOMI. Anicteric. HENT: Moist mucous membranes. LUNGS: Decreased breath sounds. CARDIOVASCULAR: Regular rate and rhythm. ABDOMEN: Soft, non-tender and non-distended. EXTREMITIES: No edema. SKIN: Warm, dry. laboratory and microbiology Laboratory Tests 03/22/25 05:17 Test 03/22/25 05:17 Range/Units Serum Glucose 113 H 74-106 mg/dL Problem List Multiple acute/subacute strokes. Hypokalemia. Acute kidney injury. Hypertension, newly diagnosed. Insulin-dependent diabetes mellitus. Status post right BKA. Dyslipidemia. Polysubstance use disorder. Left lower extremity cellulitis. Peripheral vascular disease status post right [id number] amputation 6 months ago. Sepsis. Diabetic neuropathy. Assessment/Plan Continued all current supportive medical care. [place] for pain management. IV antibiotics as ordered. DVT and GI prophylactics. IV Hydralazine for SBP >160. Vasopressors for hemodynamic support. Additional plan as per the hospital course. Critical care time of 45 minutes provided to include time spent evaluation of patient at bedside, when appropriate patient/family education for diagnosis, treatment plan, review of pertinent medical information and discussion of care with specialty providers and PCP. Mechanical ventilator parameters, treatment and adjustments have personally been reviewed by me and treatment plan by leather grainer has also been reviewed. Dietary Evaluation Review Comments: 1) [place] 1 pk BID 2) Refer Wedding Designer on DC 3) Continue current plan of care Expected Outcomes/Goals: Pt will meet >75% estimated needs Fu 3-5 days Plan discussed with: Other YANIRA WINN MD Mar 22, 2025 13:15
[2025-03-23] VITALS (108 sets, daily range): BP systolic 87–176; BP diastolic 48–111; PULSE 64–81; RESP 8–25; TEMP 97.2–99; O2SAT 94–100
--- NOTE | 2025-03-23 06:40 | DVH ---
CHEST RADIOGRAPH Indication: Intubated. Thank You! Technique: Single frontal view of the chest was obtained COMPARISON: XY CHEST PORTABLE on DOS: 03/22/25, XY CHEST PORTABLE on DOS: 03/21/25, XY CHEST PORTABLE o n DOS: 03/19/25, XY CHEST PORTABLE on DOS: 03/17/25, XY CHEST PORTABLE on DOS: 03/16/25 FINDINGS: Lines and Tubes: Unchanged. Lungs: Interval improvement in right lung aeration with decreased opacification. Small left pleural e ffusion appears to be unchanged. No pneumothorax. Cardiomediastinal contours: Unremarkable Bones: Unremarkable IMPRESSION: 1. Moderate interval improvement in right lung aeration with decreased opacification. 2. Stable left pleural effusion. 3. Lines and tubes unchanged.
[2025-03-23 07:20] LABS: Base Excess 3.1 mmol/L (-2.0-3.0)
[2025-03-23 08:28] LABS: Basophils # (auto) 0 10 ^3/uL (0-0.2); Basophils % (auto) 0.4 % (0.0-2.0); Eosinophils # (auto) 0.3 10 ^3/uL (0-0.8); Eosinophils % (auto) 2.7 % (0.0-7.0); Hematocrit 24.4 % (36.0-46.0); Hemoglobin 8.1 g/dL (12.2-16.2); Lymphocytes # (auto) 1.3 10 ^3/uL (0.4-5.4); Lymphocytes % (auto) 12.3 % (10.0-50.0); Mean Corpuscular Hemoglobin 27.4 pg (28.0-32.0); Mean Corpuscular Volume 83.3 fL (80.0-100.0); Monocytes # (auto) 0.5 10 ^3/uL (0-1.3); Neutrophils # (auto) 8.3 10 ^3/uL (1.6-8.6); Neutrophils % (auto) 79.6 % (37.0-80.0); Nucleated Red Blood Cells % 0.1 %; Platelet Count (auto) 492 10^3/uL (140-450); Red Blood Cells 2.93 10^6/uL (4.0-5.20); Red Cell Distribution Width 16.6 % (11.8-14.3); White Blood Cell 10.5 10^3/uL (4.4-10.8)
[2025-03-23 08:48] LABS: Anion Gap 9 (5-15); BUN/Creatinine Ratio 25.6 (10.0-20.0); Calcium 8.9 mg/dL (8.7-10.4); Carbon Dioxide 25 mmol/L (20-31); Sodium 144 mmol/L (136-145)
[2025-03-23 08:49] LABS: Alanine Aminotransferase < 9 U/L (7-40); Albumin 2.4 g/dL (3.2-4.8); Alkaline Phosphatase 262 U/L (46-116); Aspartate Aminotransferase 13 U/L (13-40); Bilirubin, Total < 0.2 mg/dL (0.2-1.0); Blood Urea Nitrogen 34 mg/dL (9-23); Chloride 110 mmol/L (98-107); Glucose 146 mg/dL (74-106); Potassium 3.2 mmol/L (3.5-5.1)
--- NOTE | 2025-03-23 10:36 | DVHPN2 ---
Progress Note - Dictate Date Seen: Mar 23, 2025 Medical Necessity Reason Pt with a Central, PICC or Fol: Yes The following are medically ne: Acosta Catheter Reason for acosta catheter: Strict I&O vital signs Vital Sign Date Time Temp Pulse Resp B/P (MAP) Pulse Ox O2 Delivery O2 Flow Rate FiO2 03/23/25 09:31 68 24 134/73 (93) 97 40 03/23/25 08:00 97.9 97.9 03/23/25 08:00 Mechanical Ventilator+ Total Intake and Output 03/22/25 03/22/25 03/23/25 15:00 23:00 07:00 Intake Total 405.728 ml 562.512 ml 688.228 ml Output Total 625 ml 0 ml Balance 405.728 ml -62.488 ml 688.228 ml medications Current Medications Medications Dose Ordered Sig/John Route Start Time Stop Time Status Last Admin Dose Admin Ondansetron HCl 4 mg Q4HP PRN IV 02/19/25 13:45 03/06/25 02:55 4 MG Docusate Sodium 100 mg BIDPRN PRN PO 02/19/25 13:45 03/04/25 17:41 100 MG Acetaminophen 650 mg Q6HP PRN PO 02/19/25 13:45 03/09/25 21:36 650 MG Nitroglycerin 0.4 mg Q5MINP PRN SL 02/19/25 13:45 Diagnostic Test (Pha) 1 strip ACHS 02/19/25 17:00 03/23/25 07:03 1 STRIP Dextrose 50 ml UD PRN IV 02/19/25 15:45 03/14/25 21:04 50 ML Potassium Chloride 100 ml @ 50 mls/hr Q2H IV 02/19/25 23:15 02/20/25 05:14 Cancel Potassium Chloride 100 ml @ 50 mls/hr Q2H IV 02/20/25 07:15 02/20/25 11:14 UNV Insulin Human Regular ACHS SC 02/28/25 17:00 03/22/25 17:40 2 UNITS Gabapentin 100 mg TID PO 03/02/25 14:00 03/23/25 07:03 100 MG Calcium Acetate 1,334 mg TIDWMEALS PO 03/04/25 12:00 03/23/25 08:22 1,334 MG Ergocalciferol 50,000 unit Q7D PO 03/04/25 11:45 03/18/25 12:43 50,000 UNIT Zirconium Oxide 10 gm TID PO 03/07/25 14:00 Cancel Sodium Bicarbonate 50 ml/ Sodium Chloride 1,050 ml @ 100 mls/hr [id number] IV 03/07/25 11:45 Cancel Hydralazine HCl 10 mg Q6HPRN PRN IV 03/11/25 15:30 03/21/25 03:41 10 MG Norepinephrine Bitartrate 250 ml @ 3.75 mls/hr Q24H IV 03/13/25 02:00 03/14/25 13:44 3.75 MLS/HR Fentanyl Citrate 250 ml @ 2.5 mls/hr Q24H IV 03/13/25 02:30 03/22/25 22:28 20 MLS/HR Ceftriaxone Sodium 50 ml @ 100 mls/hr Q24H IV 03/13/25 04:00 03/23/25 04:00 100 MLS/HR Clindamycin Phosphate 50 ml @ 50 mls/hr Q8HR IV 03/13/25 06:00 03/23/25 07:03 50 MLS/HR Pantoprazole Sodium 40 mg BID IV 03/13/25 10:00 03/23/25 08:23 40 MG Albuterol 2.5 mg Q6HR NEB 03/13/25 12:00 03/23/25 06:07 2.5 MG Ipratropium [place] 0.5 mg Q6HR NEB 03/13/25 12:00 03/23/25 06:07 0.5 MG Saccharomyces Boulardii 250 mg DAILY PO 03/14/25 10:00 03/23/25 08:24 250 MG Enteral Nutritional Formula 1,000 ml 30ML/HR GT 03/14/25 08:45 03/22/25 08:00 1,000 ML Enoxaparin Sodium 30 mg DAILY SC 03/18/25 10:00 03/23/25 08:24 30 MG Metoprolol Tartrate 25 mg BID GT 03/21/25 10:00 03/23/25 08:36 25 MG Metoclopramide HCl 10 mg Q8HP PRN GT 03/21/25 10:15 Propofol 100 ml @ 2.277 mls/ hr Q24H IV 03/21/25 10:15 03/23/25 08:08 18.216 MLS/HR Duloxetine HCl 30 mg DAILY PO 03/22/25 10:00 03/23/25 08:24 30 MG Lamotrigine 25 mg DAILY PO 03/22/25 10:00 03/23/25 08:24 25 MG Olanzapine 5 mg DAILY PO 03/22/25 10:00 03/23/25 08:23 5 MG laboratory and microbiology Laboratory Tests 03/23/25 07:10 Test 03/23/25 07:10 Range/Units Serum Glucose 146 H 74-106 mg/dL Assessment/Plan Impression Acute hypoxemic respiratory failure Altered mental status Hx of CVA Sepsis Patient seen and examined in ICU Events On mechanical ventilation S/p intubation PEEP 5, FiO2 30% Labs and imaging reviewed ABG reviewed Management Vent support Titrate to maintain sats 90% or above not followng commands will start precedex Sedation holiday daily If patient follows commands, proceed to weaning trial Pressure support 05/31, extubate when ready Continue antibiotics F/u cultures Bronchodilators Monitor renal function Monitor electrolytes Supplement as needed Pressors as needed for hemodynamic support To maintain a mean arterial pressure of 65 mmHg Restart all psychiatric medications DVT prophylaxis Critical care time 35 minutes Dietary Evaluation Review Comments: 1) [place] 1 pk BID 2) Refer Communications Controller on DC 3) Continue current plan of care Expected Outcomes/Goals: Pt will meet >75% estimated needs Fu 3-5 days Plan discussed with: Other (rn) ARUNA BRISENO MD Mar 23, 2025 10:36
[2025-03-23] MEDS: POTASSIUM CHL 20MEQ/50ML 50 ML IV SCH (11:15)
--- NOTE | 2025-03-23 21:55 | DVHPN2 ---
Subjective Intubated and sedated Reviewed: Care Plan, H&P, Labs, Medications, Previous Orders, Radiology, Other (Consultations) Changes from previous H/P or p: No Changes Objective Vitals Vital Signs Date Time Temp Pulse Resp B/P (MAP) Pulse Ox O2 Delivery O2 Flow Rate FiO2 03/23/25 20:00 30 03/23/25 20:00 24 98 Mechanical Ventilator+ 03/23/25 20:00 67 03/23/25 18:47 129/71 03/23/25 16:00 98.2 98.2 Intake/Output Intake and Output 03/23/25 07:00 Intake Total 1656.468 ml Output Total 625 ml Balance 1031.468 ml Intake Oral 220 ml IV Total 1126.468 ml Tube Feeding 310 ml Output Urine Total 625 ml Stool Total 0 ml General Appearance: Other (Intubated and sedated) HEENT: Atraumatic Lungs: Other (Mechanical ventilation sounds) Cardiovascular: Regular rate, Normal S1, Normal S2 Abdomen: Normal bowel sounds, Soft Genitourinary: Other (Almaraz's) Extremities: Other (Right BKA) Neuro: Other (Intubated and sedated) Skin: Wounds (See nurse notes and pictures) Psych/Mental Status: Other (Intubated and sedated) Medications Current Medications Medications Dose Ordered Sig/John Route Start Time Stop Time Status Last Admin Dose Admin Ondansetron HCl 4 mg Q4HP PRN IV 02/19/25 13:45 03/06/25 02:55 4 MG Docusate Sodium 100 mg BIDPRN PRN PO 02/19/25 13:45 03/04/25 17:41 100 MG Acetaminophen 650 mg Q6HP PRN PO 02/19/25 13:45 03/09/25 21:36 650 MG Nitroglycerin 0.4 mg Q5MINP PRN SL 02/19/25 13:45 Diagnostic Test (Pha) 1 strip ACHS 02/19/25 17:00 03/23/25 17:00 1 STRIP Dextrose 50 ml UD PRN IV 02/19/25 15:45 03/14/25 21:04 50 ML Potassium Chloride 100 ml @ 50 mls/hr Q2H IV 02/19/25 23:15 02/20/25 05:14 Cancel Potassium Chloride 100 ml @ 50 mls/hr Q2H IV 02/20/25 07:15 02/20/25 11:14 UNV Insulin Human Regular ACHS SC 02/28/25 17:00 03/23/25 11:30 2 UNITS Gabapentin 100 mg TID PO 03/02/25 14:00 03/23/25 14:18 100 MG Calcium Acetate 1,334 mg TIDWMEALS PO 03/04/25 12:00 03/23/25 17:40 1,334 MG Ergocalciferol 50,000 unit Q7D PO 03/04/25 11:45 03/18/25 12:43 50,000 UNIT Zirconium Oxide 10 gm TID PO 03/07/25 14:00 Cancel Sodium Bicarbonate 50 ml/ Sodium Chloride 1,050 ml @ 100 mls/hr [id number] IV 03/07/25 11:45 Cancel Hydralazine HCl 10 mg Q6HPRN PRN IV 03/11/25 15:30 03/21/25 03:41 10 MG Norepinephrine Bitartrate 250 ml @ 3.75 mls/hr Q24H IV 03/13/25 02:00 03/14/25 13:44 3.75 MLS/HR Fentanyl Citrate 250 ml @ 2.5 mls/hr Q24H IV 03/13/25 02:30 03/23/25 14:45 15 MLS/HR Ceftriaxone Sodium 50 ml @ 100 mls/hr Q24H IV 03/13/25 04:00 03/23/25 04:00 100 MLS/HR Clindamycin Phosphate 50 ml @ 50 mls/hr Q8HR IV 03/13/25 06:00 03/23/25 14:18 50 MLS/HR Pantoprazole Sodium 40 mg BID IV 03/13/25 10:00 03/23/25 08:23 40 MG Albuterol 2.5 mg Q6HR NEB 03/13/25 12:00 03/23/25 18:33 2.5 MG Ipratropium [place] 0.5 mg Q6HR NEB 03/13/25 12:00 03/23/25 18:32 0.5 MG Saccharomyces Boulardii 250 mg DAILY PO 03/14/25 10:00 03/23/25 08:24 250 MG Enteral Nutritional Formula 1,000 ml 30ML/HR GT 03/14/25 08:45 03/22/25 08:00 1,000 ML Enoxaparin Sodium 30 mg DAILY SC 03/18/25 10:00 03/23/25 08:24 30 MG Metoprolol Tartrate 25 mg BID GT 03/21/25 10:00 03/23/25 08:36 25 MG Metoclopramide HCl 10 mg Q8HP PRN GT 03/21/25 10:15 Propofol 100 ml @ 2.277 mls/ hr Q24H IV 03/21/25 10:15 03/23/25 18:47 18.216 MLS/HR Duloxetine HCl 30 mg DAILY PO 03/22/25 10:00 03/23/25 08:24 30 MG Lamotrigine 25 mg DAILY PO 03/22/25 10:00 03/23/25 08:24 25 MG Olanzapine 5 mg DAILY PO 03/22/25 10:00 03/23/25 08:23 5 MG Laboratory Results Laboratory Tests 03/23/25 07:10 Chemistry Test 03/23/25 07:10 Albumin 2.4 g/dL (3.2-4.8) L Calcium Level 8.9 mg/dL (8.7-10.4) Magnesium Level 2.0 mg/dL (1.6-2.6) Total Protein 5.0 g/dL (5.7-8.2) L LFT Test 03/23/25 07:10 Alanine Aminotransferase (ALT) < 9 U/L (7-40) Alkaline Phosphatase 262 U/L (46-116) H Aspartate Amino Transferase (AST) 13 U/L (13-40) Total Bilirubin < 0.2 mg/dL (0.2-1.0) L Urinalysis Test 02/19/25 17:27 03/04/25 05:00 Urine Color Colorless (Yellow) Urine Clarity Clear (Clear) Urine pH 6.5 (5.0-9.0) Urine Specific [place] 1.008 (1.001-1.035) Urine Protein 2+ (Negative) H Urine Ketones 1+ (Negative) H Urine Blood 1+ /uL (Negative) H Urine Nitrite Negative (Negative) Urine Bilirubin Negative (Negative) Urine Urobilinogen Normal mg/dL (Negative) Urine Leukocyte Esterase Negative /uL (Negative) Urine RBC 6 /hpf (0 - 4) Urine Microscopic WBC 2 /HPF (0-5) Urine Squamous Epithelial Cells Few /hpf (<5) Urine Bacteria None seen /hpf (None Seen) Urine Glucose 2+ mg/dL (Normal) H Urine Creatinine 25.51 mg/dL (30.0-125.0) L Urine Protein/Creatinine Ratio 14.00 Urine Sodium 80 mmol/L (40-220) Urine Total Protein 357.1 mg/dL (1-14) H Blood Gas Results Test 03/23/25 06:52 Arterial Blood pH 7.541 (7.350-7.450) FiO2 % 40.0 Microbiology Microbiology Date/Time Source Procedure Growth Status 03/13/25 05:10 Blood Blood Culture - Final NO GROWTH AFTER 5 DAYS OF INCUBATION. Complete 03/13/25 03:17 Sputum Gram Stain - Final Complete 03/13/25 03:17 Respiratory Culture - Final Presumptive Dionna albicans Complete 03/06/25 14:37 Knee Left Gram Stain - Final Complete 03/06/25 14:37 Knee Left Anaerobic Culture - Final Complete 03/06/25 14:37 Aerobic Culture - Final Staphylococcus aureus Complete 03/04/25 13:29 Aspirate Gram Stain - Final Complete 03/04/25 13:29 Body Fluid Culture - Final Staphylococcus aureus Complete 02/19/25 17:27 Urine - [place] Urine Culture - Final Complete Labs and/or images reviewed: Labs reviewed by me, Image(s) reviewed by me Assessment/Plan Assessment/Plan Covering: Acute hypoxic/metabolic/toxic encephalopathy Acute hypoxic respiratory failure Severe sepsis with leukocytosis and fever due to soft tissue infection/cellulitis and suspected left knee infection Multiple acute/subacute strokes Electrolytes imbalance with hypokalemia and hypomagnesemia TATIANNA; most likely vasomotor nephropathy in the setting of sepsis; avoid nephrotoxic agents; nephrology is following; morning labs pending; continue monitoring Uncontrolled diabetes mellitus type 2 with hyperglycemia PAD status post right BKA Multiple left foot diabetic ulcers Polysubstance (marijuana and tobacco) use disorder Obesity Reviewed lab work including ABGs Reviewed imaging studies including chest x-rays Reviewed available cultures Continue mechanical ventilation for oxygen therapy Continue sedation as indicated Continue IV antibiotics Avoid nephrotoxic agents Continue insulin therapy with hypoglycemia protocol Cardiology, Neurology, and pulmonology are following Continue close monitoring Critical care time of 60 minutes Late Entry. This medical document was created using an electronic medical record system with computerized dictation system. Although this document has been carefully reviewed, there might still be some phonetic and typographical errors. These areas are purely typographical due to imperfections of the software programs, and do not reflect any compromise in the patient's medical care. Plan discussed with: Other (Nurse) Date of Service: Mar 23, 2025 Billing Provider: JOLYNN HAAS MD Common Visit Codes: 55313-EDYOVQVA CARE 30-74 MIN (60 minutes) JOLYNN AHAS MD Mar 23, 2025 21:55
--- NOTE | 2025-03-23 23:04 | DVHPN2 ---
Progress Note - Dictate Date Seen: Mar 23, 2025 Medical Necessity Reason Pt with a Central, PICC or Fol: Yes The following are medically ne: Acosta Catheter Reason for acosta catheter: Strict I&O Subjective Mr. Kaur is a 54 years old right-handed female with a history of hypertension, diabetes, dyslipidemia, anxiety, GERD, osteo myelitis status post right BKA, she came to the [facility] on 02/19/25 with a chief complaint of general weakness. He was transferred/ICU on 03/13/25 for ALOC, nasal bleeding and intubation I have seen and examined the patient, I have talked to her nurse, she is not responsive to pain. No spontaneous extremity movement With less sedation, she moved excessively and was trying to pull the lines and tubes I have discussed with her mom about her condition Psychiatry consultation, 02/26/25: 1:1 sitter. Transferred to inpatient psychiatric facility. Cymbalta 30 mg b.i.d. Follow MRI brain scan showed new multiple strokes Fentanyl 100 mcg/hour, Versed 0 mg/hour, propofol 3 mcg/minute ABG, 03/13/2025: Unremarkable UDS, 02/19/2025: Cannabinoids Plasma alcohol, 02/19/2025: 3 Urinalysis, 02/19, : WBC: 2, urine leukocyte esterase WBC/HB/PLT/MCV, 02/20/2025: 21.9/10.9/398/83.1, 03/13/2025: 11.7/6.5/424/85.4 PT/INR/PTT, 03/13/2025: 10.6/1/38.6 K, 02/19/2025: 1.7, 02/20/2025: 2.1 BUN/CR, 02/20/2025: 33/2.03, 03/13/2025: 51.93 HGB A1c, 06/03/2024: 13.1 Liver function tests, 02/20/2025: Unremarkable TG/HDL/LDL/HDL, 04/11/2024: 180/238/164/43 MAGALIS, 02/21/2025: 1. Technically good study. Sinus rhythm. 2. Left atrial enlargement. 3. Number Valves appear to be structurally normal. 4. Ventricular systolic function is preserved at 60% with normal RV function. 5. Doppler reveals mild TR. No significant mitral or aortic insufficiency. No atrial septal or ventricular septal defects 6. No masses or vegetations discernible. 7. The atrial appendage looks clean, no masses. No atrial or ventricular septal defects as noted. No abnormal shunting. Bubble study was negative 8. The valves appear to be structurally normal. No vegetations or signs of emboli present. Carotid Doppler, 02/20/2025: No hemodynamically significant stenosis noted in the right carotid system. No hemodynamically significant stenosis noted in the left carotid system. Chest X-ray, 03/19/25: 1. Endotracheal tube terminates 4cm from caleb. Other lines and tubes are unchanged in position. 2. Bilateral airspace disease similar to prior study. CT head, : Small age-indeterminate infarct extending from the right jorge radiata into the right basal ganglia. Further evaluation with MRI brain with diffusion-weighted imaging is recommended. CT head, , No acute intracranial abnormality. Multiple subacute bilateral lacunar infarcts as seen on prior MRI. MRI head, 02/19/2025: 1. There are multiple small foci of acute to subacute infarct in the right jorge radiata and right basal ganglia. There are also multiple small acute to subacute infarcts in the left anteromedial frontal lobe and in the left jorge radiata and left basal ganglia. There is no evidence of acute hemorrhage MR head, 03/21/2025: 1. Multiple foci of restricted diffusion involving the left corpus callosum, bilateral basal ganglia and right jorge radiata. The largest area involves the left splenium of the corpus callosum. These likely represent acute to subacute infarcts. There is no evidence of acute hemorrhage. 2. Moderate amount of fluid in the bilateral mastoid air cells MRI left foot, 02/22/25: Moderate dorsal subcutaneous edema. No evidence of osteomyelitis. No drainable fluid collection noted. Moderate myositis. vital signs Vital Sign Date Time Temp Pulse Resp B/P (MAP) Pulse Ox O2 Delivery O2 Flow Rate FiO2 03/23/25 22:00 40 03/23/25 22:00 24 100 Mechanical Ventilator+ 03/23/25 22:00 66 03/23/25 18:47 129/71 03/23/25 16:00 98.2 98.2 Total Intake and Output 03/22/25 03/22/25 03/23/25 15:00 23:00 07:00 Intake Total 405.728 ml 562.512 ml 688.228 ml Output Total 625 ml 0 ml Balance 405.728 ml -62.488 ml 688.228 ml medications Current Medications Medications Dose Ordered Sig/John Route Start Time Stop Time Status Last Admin Dose Admin Ondansetron HCl 4 mg Q4HP PRN IV 02/19/25 13:45 03/06/25 02:55 4 MG Docusate Sodium 100 mg BIDPRN PRN PO 02/19/25 13:45 03/04/25 17:41 100 MG Acetaminophen 650 mg Q6HP PRN PO 02/19/25 13:45 03/09/25 21:36 650 MG Nitroglycerin 0.4 mg Q5MINP PRN SL 02/19/25 13:45 Diagnostic Test (Pha) 1 strip ACHS 02/19/25 17:00 03/23/25 17:00 1 STRIP Dextrose 50 ml UD PRN IV 02/19/25 15:45 03/14/25 21:04 50 ML Potassium Chloride 100 ml @ 50 mls/hr Q2H IV 02/19/25 23:15 02/20/25 05:14 Cancel Potassium Chloride 100 ml @ 50 mls/hr Q2H IV 02/20/25 07:15 02/20/25 11:14 UNV Insulin Human Regular ACHS SC 02/28/25 17:00 03/23/25 11:30 2 UNITS Gabapentin 100 mg TID PO 03/02/25 14:00 03/23/25 14:18 100 MG Calcium Acetate 1,334 mg TIDWMEALS PO 03/04/25 12:00 03/23/25 17:40 1,334 MG Ergocalciferol 50,000 unit Q7D PO 03/04/25 11:45 03/18/25 12:43 50,000 UNIT Zirconium Oxide 10 gm TID PO 03/07/25 14:00 Cancel Sodium Bicarbonate 50 ml/ Sodium Chloride 1,050 ml @ 100 mls/hr [id number] IV 03/07/25 11:45 Cancel Hydralazine HCl 10 mg Q6HPRN PRN IV 03/11/25 15:30 03/21/25 03:41 10 MG Norepinephrine Bitartrate 250 ml @ 3.75 mls/hr Q24H IV 03/13/25 02:00 03/14/25 13:44 3.75 MLS/HR Fentanyl Citrate 250 ml @ 2.5 mls/hr Q24H IV 03/13/25 02:30 03/23/25 14:45 15 MLS/HR Ceftriaxone Sodium 50 ml @ 100 mls/hr Q24H IV 03/13/25 04:00 03/23/25 04:00 100 MLS/HR Clindamycin Phosphate 50 ml @ 50 mls/hr Q8HR IV 03/13/25 06:00 03/23/25 14:18 50 MLS/HR Pantoprazole Sodium 40 mg BID IV 03/13/25 10:00 03/23/25 08:23 40 MG Albuterol 2.5 mg Q6HR NEB 03/13/25 12:00 03/23/25 18:33 2.5 MG Ipratropium [place] 0.5 mg Q6HR NEB 03/13/25 12:00 03/23/25 18:32 0.5 MG Saccharomyces Boulardii 250 mg DAILY PO 03/14/25 10:00 03/23/25 08:24 250 MG Enteral Nutritional Formula 1,000 ml 30ML/HR GT 03/14/25 08:45 03/22/25 08:00 1,000 ML Enoxaparin Sodium 30 mg DAILY SC 03/18/25 10:00 03/23/25 08:24 30 MG Metoprolol Tartrate 25 mg BID GT 03/21/25 10:00 03/23/25 08:36 25 MG Metoclopramide HCl 10 mg Q8HP PRN GT 03/21/25 10:15 Propofol 100 ml @ 2.277 mls/ hr Q24H IV 03/21/25 10:15 03/23/25 18:47 18.216 MLS/HR Duloxetine HCl 30 mg DAILY PO 03/22/25 10:00 03/23/25 08:24 30 MG Lamotrigine 25 mg DAILY PO 03/22/25 10:00 03/23/25 08:24 25 MG Olanzapine 5 mg DAILY PO 03/22/25 10:00 03/23/25 08:23 5 MG objective The patient is well-nourished and well-developed with no distress. The patient is intubated MUSCULOSKELETAL EXAM: Status post right BKA MENTAL STATUS: Subjective CRANIAL NERVES: Pupils are equal, round and reactive, small. There are corneal reflexes and doll's eyes phenomenon. No signs of facial weakness. There are no gagging or coughing reflexes SENSATION: No responses to pain stimuli. MOTOR: Normal tone in the upper and lower extremity. Normal muscle bulk. No fasciculations. No spontaneous movement. REFLEXES: Deep tendon reflexes are symmetrical. No pathological reflexes. CEREBELLAR/COORDINATION: Deferred GAIT/STATION: deferred. laboratory and microbiology Laboratory Tests 03/23/25 07:10 Test 03/23/25 07:10 Range/Units Serum Glucose 146 H 74-106 mg/dL Problem List Acute respiratory failure Excessive nasal bleeding Come Metabolic encephalopathy Hypoxic encephalopathy Toxic encephalopathy General weakness Multiple acute/subacute strokes (MRI head: 02/19/2025, 03/21/2025) Status post right BKA Depression Assessment/Plan Monitoring Supportive treatment EEG ICU Stabilize vitals Respiratory support/vent management Oxygen Antibiotics Aspirin 81 mg daily (HOLD) Lipitor 80mg Qd Cymbalta 30 mg b.i.d. DVT prophylaxis/Lovenox Quit tobacco smoking completely Wean off sedation as tolerated CPAP trial today More recommendation per clinical course This medical document was created using an electronic medical record system with Ordr.in dictation system. Although this document has been carefully reviewed, there may still be some phonetic and typographical errors. These areas are purely typographical due to imperfections of the software programs, and do not reflect any compromise in the patient's medical care. Prognosis guarded Dietary Evaluation Review Comments: 1) Esau 1 pk BID 2) Refer Rebar Worker on DC 3) Continue current plan of care Expected Outcomes/Goals: Pt will meet >75% estimated needs Fu 3-5 days Plan discussed with: Other NEELA RUEDA MD Mar 23, 2025 23:04
--- NOTE | 2025-03-23 23:50 | DVHPN2 ---
Progress Note - Dictate Date Seen: Mar 23, 2025 Medical Necessity Reason Pt with a Central, PICC or Fol: Yes The following are medically ne: Acosta Catheter Reason for acosta catheter: Strict I&O Subjective Patient was seen and evaluated in follow up in the ICU. Patient is intubated and sedated on ventilator. 40% FiO2. Patient's temperature is fluctuating. HGB 8.1, HCT 24.4, K 3.2, CL 110, BUN 34, POT MAKER 1.33. Chest x-ray showed moderate interval improvement in right lung aeration with decreased opacification. Stable left pleural effusion. vital signs Vital Sign Date Time Temp Pulse Resp B/P (MAP) Pulse Ox O2 Delivery O2 Flow Rate FiO2 03/23/25 16:00 40 03/23/25 16:00 24 98 Mechanical Ventilator+ 03/23/25 15:45 69 117/64 (81) 03/23/25 08:00 97.9 97.9 Total Intake and Output 03/22/25 03/22/25 03/23/25 15:00 23:00 07:00 Intake Total 405.728 ml 562.512 ml 688.228 ml Output Total 625 ml 0 ml Balance 405.728 ml -62.488 ml 688.228 ml medications Current Medications Medications Dose Ordered Sig/John Route Start Time Stop Time Status Last Admin Dose Admin Ondansetron HCl 4 mg Q4HP PRN IV 02/19/25 13:45 03/06/25 02:55 4 MG Docusate Sodium 100 mg BIDPRN PRN PO 02/19/25 13:45 03/04/25 17:41 100 MG Acetaminophen 650 mg Q6HP PRN PO 02/19/25 13:45 03/09/25 21:36 650 MG Nitroglycerin 0.4 mg Q5MINP PRN SL 02/19/25 13:45 Diagnostic Test (Pha) 1 strip ACHS 02/19/25 17:00 03/23/25 11:30 1 STRIP Dextrose 50 ml UD PRN IV 02/19/25 15:45 03/14/25 21:04 50 ML Potassium Chloride 100 ml @ 50 mls/hr Q2H IV 02/19/25 23:15 02/20/25 05:14 Cancel Potassium Chloride 100 ml @ 50 mls/hr Q2H IV 02/20/25 07:15 02/20/25 11:14 UNV Insulin Human Regular ACHS SC 02/28/25 17:00 03/23/25 11:30 2 UNITS Gabapentin 100 mg TID PO 03/02/25 14:00 03/23/25 14:18 100 MG Calcium Acetate 1,334 mg TIDWMEALS PO 03/04/25 12:00 03/23/25 12:00 1,334 MG Ergocalciferol 50,000 unit Q7D PO 03/04/25 11:45 03/18/25 12:43 50,000 UNIT Zirconium Oxide 10 gm TID PO 03/07/25 14:00 Cancel Sodium Bicarbonate 50 ml/ Sodium Chloride 1,050 ml @ 100 mls/hr [id number] IV 03/07/25 11:45 Cancel Hydralazine HCl 10 mg Q6HPRN PRN IV 03/11/25 15:30 03/21/25 03:41 10 MG Norepinephrine Bitartrate 250 ml @ 3.75 mls/hr Q24H IV 03/13/25 02:00 03/14/25 13:44 3.75 MLS/HR Fentanyl Citrate 250 ml @ 2.5 mls/hr Q24H IV 03/13/25 02:30 03/23/25 14:45 15 MLS/HR Ceftriaxone Sodium 50 ml @ 100 mls/hr Q24H IV 03/13/25 04:00 03/23/25 04:00 100 MLS/HR Clindamycin Phosphate 50 ml @ 50 mls/hr Q8HR IV 03/13/25 06:00 03/23/25 14:18 50 MLS/HR Pantoprazole Sodium 40 mg BID IV 03/13/25 10:00 03/23/25 08:23 40 MG Albuterol 2.5 mg Q6HR NEB 03/13/25 12:00 03/23/25 11:27 2.5 MG Ipratropium [place] 0.5 mg Q6HR NEB 03/13/25 12:00 03/23/25 11:27 0.5 MG Saccharomyces Boulardii 250 mg DAILY PO 03/14/25 10:00 03/23/25 08:24 250 MG Enteral Nutritional Formula 1,000 ml 30ML/HR GT 03/14/25 08:45 03/22/25 08:00 1,000 ML Enoxaparin Sodium 30 mg DAILY SC 03/18/25 10:00 03/23/25 08:24 30 MG Metoprolol Tartrate 25 mg BID GT 03/21/25 10:00 03/23/25 08:36 25 MG Metoclopramide HCl 10 mg Q8HP PRN GT 03/21/25 10:15 Propofol 100 ml @ 2.277 mls/ hr Q24H IV 03/21/25 10:15 03/23/25 15:21 18.216 MLS/HR Duloxetine HCl 30 mg DAILY PO 03/22/25 10:00 03/23/25 08:24 30 MG Lamotrigine 25 mg DAILY PO 03/22/25 10:00 03/23/25 08:24 25 MG Olanzapine 5 mg DAILY PO 03/22/25 10:00 03/23/25 08:23 5 MG objective GENERAL: Intubated on ventilator. EYES: PERRL, EOMI. Anicteric. HENT: Moist mucous membranes. LUNGS: Decreased breath sounds. CARDIOVASCULAR: Regular rate and rhythm. ABDOMEN: Soft, non-tender and non-distended. EXTREMITIES: No edema. SKIN: Warm, dry. laboratory and microbiology Laboratory Tests 03/23/25 07:10 Test 03/23/25 07:10 Range/Units Serum Glucose 146 H 74-106 mg/dL Problem List Multiple acute/subacute strokes. Hypokalemia. Acute kidney injury. Hypertension, newly diagnosed. Insulin-dependent diabetes mellitus. Status post right BKA. Dyslipidemia. Polysubstance use disorder. Left lower extremity cellulitis. Peripheral vascular disease status post right [id number] amputation 6 months ago. Sepsis. Diabetic neuropathy. Assessment/Plan Continued all current supportive medical care. [place] for pain management. IV antibiotics as ordered. DVT and GI prophylactics. IV Hydralazine for SBP >160. Vasopressors for hemodynamic support. Additional plan as per the hospital course. Critical care time of 45 minutes provided to include time spent evaluation of patient at bedside, when appropriate patient/family education for diagnosis, treatment plan, review of pertinent medical information and discussion of care with specialty providers and PCP. Mechanical ventilator parameters, treatment and adjustments have personally been reviewed by me and treatment plan by human resources hr generalist has also been reviewed. Dietary Evaluation Review Comments: 1) Esau 1 pk BID 2) Refer Cable Reeler on DC 3) Continue current plan of care Expected Outcomes/Goals: Pt will meet >75% estimated needs Fu 3-5 days Plan discussed with: Other YANIRA WINN MD Mar 23, 2025 16:17
[2025-03-24] VITALS (108 sets, daily range): BP systolic 82–164; BP diastolic 43–86; PULSE 62–85; RESP 13–25; TEMP 97.5–98.8; O2SAT 80–100
[2025-03-24] MEDS: DEXMEDETOMIDINE HCL IN D5W 100 ML IV ONE (00:31)
--- NOTE | 2025-03-24 03:56 | DVH ---
CHEST RADIOGRAPH Indication: Intubated. Thank You! Technique: Single frontal view of the chest was obtained COMPARISON: XY CHEST XRAY 1 VIEW on DOS: 03/23/25, XY CHEST PORTABLE on DOS: 03/22/25, XY CHEST PORTABL E on DOS: 03/21/25, XY CHEST PORTABLE on DOS: 03/19/25, XY CHEST PORTABLE on DOS: 03/17/25 FINDINGS: Lines and Tubes: Slight interval retraction of the endotracheal tube with the tip now projecting appr oximately 4.7 cm above the level of the caleb. The remaining lines and tubes are unchanged. Lungs: Right basilar pulmonary airspace disease is slightly progressive on the current exam with incr eased opacity. Pleura: Stable appearing left pleural effusion. Right pleural effusion not excluded. No pneumothorax. Cardiomediastinal contours: Unremarkable Bones: Unremarkable IMPRESSION: 1. Slightly progressive right basilar pulmonary airspace disease. 2. Stable left pleural effusion. Right pleural effusion not excluded. 3. Slight interval retraction of endotracheal tube as above. Remaining lines and tubes unchanged.
[2025-03-24 05:45] LABS: Basophils # (auto) 0.1 10 ^3/uL (0-0.2); Eosinophils # (auto) 0.3 10 ^3/uL (0-0.8); Hemoglobin 7.7 g/dL (12.2-16.2); Lymphocytes # (auto) 1.2 10 ^3/uL (0.4-5.4)
[2025-03-24 05:47] LABS: Basophils % (auto) 0.7 % (0.0-2.0); Eosinophils % (auto) 3.3 % (0.0-7.0); Hematocrit 23.1 % (36.0-46.0); Mean Corpuscular Hemoglobin 27.5 pg (28.0-32.0); Mean Corpuscular Hgb Conc. 33.3 g/dL (32.0-36.0); Mean Corpuscular Volume 82.6 fL (80.0-100.0); Monocytes # (auto) 0.5 10 ^3/uL (0-1.3); Monocytes % (auto) 5.2 % (0.0-12.0); Neutrophils # (auto) 7.3 10 ^3/uL (1.6-8.6); Neutrophils % (auto) 77.8 % (37.0-80.0); Nucleated Red Blood Cells % 0.1 %; Platelet Count (auto) 535 10^3/uL (140-450); Red Blood Cells 2.79 10^6/uL (4.0-5.20); Red Cell Distribution Width 16.7 % (11.8-14.3); White Blood Cell 9.3 10^3/uL (4.4-10.8)
[2025-03-24 05:52] LABS: Base Excess -0.7 mmol/L (-2.0-3.0)
[2025-03-24 06:03] LABS: Alkaline Phosphatase 242 U/L (46-116); Anion Gap 8 (5-15); Aspartate Aminotransferase 13 U/L (13-40); BUN/Creatinine Ratio 23.1 (10.0-20.0); Blood Urea Nitrogen 31 mg/dL (9-23); Carbon Dioxide 24 mmol/L (20-31); Chloride 111 mmol/L (98-107); Glucose 96 mg/dL (74-106); Magnesium 1.9 mg/dL (1.6-2.6); Potassium 3.7 mmol/L (3.5-5.1); Sodium 143 mmol/L (136-145)
[2025-03-24 06:04] LABS: Alanine Aminotransferase < 9 U/L (7-40); Albumin 2.4 g/dL (3.2-4.8); Calcium 8.7 mg/dL (8.7-10.4)
[2025-03-24 06:07] LABS: Bilirubin, Total < 0.2 mg/dL (0.2-1.0)
--- NOTE | 2025-03-24 10:46 | DVHPN2 ---
Progress Note - Dictate Date Seen: Mar 24, 2025 Medical Necessity Reason Pt with a Central, PICC or Fol: Yes The following are medically ne: Acosta Catheter Reason for acosta catheter: Strict I&O Subjective Mr. Kaur is a 54 years old right-handed female with a history of hypertension, diabetes, dyslipidemia, anxiety, GERD, osteo myelitis status post right BKA, she came to the [place] [facility] on 02/19/25 with a chief complaint of general weakness. He was transferred/ICU on 03/13/25 for ALOC, nasal bleeding and intubation I have seen and examined the patient, I have talked to her nurse, she is awake, responsive to verbal stimuli, but she does not follow my verbal commands She father nurse verbal commands earlier She moves the arms. Psychiatry consultation, 02/26/25: 1:1 sitter. Transferred to inpatient psychiatric facility. Cymbalta 30 mg b.i.d. Follow MRI brain scan on 03/21/2025 showed new multiple strokes Fentanyl 100 mcg/hour, Versed 0 mg/hour, propofol 3 mcg/minute ABG, 03/13/2025: Unremarkable UDS, 02/19/2025: Cannabinoids Plasma alcohol, 02/19/2025: 3 Urinalysis, 02/19, : WBC: 2, urine leukocyte esterase WBC/HB/PLT/MCV, 02/20/2025: 21.9/10.9/398/83.1, 03/13/2025: 11.7/6.5/424/85.4 PT/INR/PTT, 03/13/2025: 10.6/1/38.6 K, 02/19/2025: 1.7, 02/20/2025: 2.1 BUN/CR, 02/20/2025: 33/2.03, 03/13/2025: 51.93 HGB A1c, 06/03/2024: 13.1 Liver function tests, 02/20/2025: Unremarkable TG/HDL/LDL/HDL, 04/11/2024: 180/238/164/43 MAGALIS, 02/21/2025: 1. Technically good study. Sinus rhythm. 2. Left atrial enlargement. 3. Number Valves appear to be structurally normal. 4. Ventricular systolic function is preserved at 60% with normal RV function. 5. Doppler reveals mild TR. No significant mitral or aortic insufficiency. No atrial septal or ventricular septal defects 6. No masses or vegetations discernible. 7. The atrial appendage looks clean, no masses. No atrial or ventricular septal defects as noted. No abnormal shunting. Bubble study was negative 8. The valves appear to be structurally normal. No vegetations or signs of emboli present. Carotid Doppler, 02/20/2025: No hemodynamically significant stenosis noted in the right carotid system. No hemodynamically significant stenosis noted in the left carotid system. Chest X-ray, 03/19/25: 1. Endotracheal tube terminates 4cm from caleb. Other lines and tubes are unchanged in position. 2. Bilateral airspace disease similar to prior study. CT head, : Small age-indeterminate infarct extending from the right jorge radiata into the right basal ganglia. Further evaluation with MRI brain with diffusion-weighted imaging is recommended. CT head, , No acute intracranial abnormality. Multiple subacute bilateral lacunar infarcts as seen on prior MRI. MRI head, 02/19/2025: 1. There are multiple small foci of acute to subacute infarct in the right jorge radiata and right basal ganglia. There are also multiple small acute to subacute infarcts in the left anteromedial frontal lobe and in the left jorge radiata and left basal ganglia. There is no evidence of acute hemorrhage MR head, 03/21/2025: 1. Multiple foci of restricted diffusion involving the left corpus callosum, bilateral basal ganglia and right jorge radiata. The largest area involves the left splenium of the corpus callosum. These likely represent acute to subacute infarcts. There is no evidence of acute hemorrhage. 2. Moderate amount of fluid in the bilateral mastoid air cells MRI left foot, 02/22/25: Moderate dorsal subcutaneous edema. No evidence of osteomyelitis. No drainable fluid collection noted. Moderate myositis. vital signs Vital Sign Date Time Temp Pulse Resp B/P (MAP) Pulse Ox O2 Delivery O2 Flow Rate FiO2 03/24/25 10:06 82 150/83 03/24/25 10:00 Mechanical Ventilator+ 40 40 03/24/25 09:52 24 96 03/24/25 08:00 98.6 98.6 Total Intake and Output 03/23/25 03/23/25 03/24/25 15:00 23:00 07:00 Intake Total 340.012 ml 649.728 ml 434.648 ml Output Total 625 ml 545 ml Balance 340.012 ml 24.728 ml -110.352 ml medications Current Medications Medications Dose Ordered Sig/John Route Start Time Stop Time Status Last Admin Dose Admin Ondansetron HCl 4 mg Q4HP PRN IV 02/19/25 13:45 03/06/25 02:55 4 MG Docusate Sodium 100 mg BIDPRN PRN PO 02/19/25 13:45 03/04/25 17:41 100 MG Acetaminophen 650 mg Q6HP PRN PO 02/19/25 13:45 03/09/25 21:36 650 MG Nitroglycerin 0.4 mg Q5MINP PRN SL 02/19/25 13:45 Diagnostic Test (Pha) 1 strip ACHS 02/19/25 17:00 03/23/25 22:00 1 STRIP Dextrose 50 ml UD PRN IV 02/19/25 15:45 03/14/25 21:04 50 ML Potassium Chloride 100 ml @ 50 mls/hr Q2H IV 02/19/25 23:15 02/20/25 05:14 Cancel Potassium Chloride 100 ml @ 50 mls/hr Q2H IV 02/20/25 07:15 02/20/25 11:14 UNV Insulin Human Regular ACHS SC 02/28/25 17:00 03/23/25 11:30 2 UNITS Gabapentin 100 mg TID PO 03/02/25 14:00 03/24/25 06:00 100 MG Calcium Acetate 1,334 mg TIDWMEALS PO 03/04/25 12:00 03/24/25 10:05 1,334 MG Ergocalciferol 50,000 unit Q7D PO 03/04/25 11:45 03/18/25 12:43 50,000 UNIT Zirconium Oxide 10 gm TID PO 03/07/25 14:00 Cancel Sodium Bicarbonate 50 ml/ Sodium Chloride 1,050 ml @ 100 mls/hr [id number] IV 03/07/25 11:45 Cancel Hydralazine HCl 10 mg Q6HPRN PRN IV 03/11/25 15:30 03/21/25 03:41 10 MG Norepinephrine Bitartrate 250 ml @ 3.75 mls/hr Q24H IV 03/13/25 02:00 03/14/25 13:44 3.75 MLS/HR Fentanyl Citrate 250 ml @ 2.5 mls/hr Q24H IV 03/13/25 02:30 03/24/25 06:04 15 MLS/HR Ceftriaxone Sodium 50 ml @ 100 mls/hr Q24H IV 03/13/25 04:00 03/24/25 04:59 100 MLS/HR Clindamycin Phosphate 50 ml @ 50 mls/hr Q8HR IV 03/13/25 06:00 03/24/25 05:54 50 MLS/HR Pantoprazole Sodium 40 mg BID IV 03/13/25 10:00 03/24/25 10:05 40 MG Albuterol 2.5 mg Q6HR NEB 03/13/25 12:00 03/24/25 06:17 2.5 MG Ipratropium [place] 0.5 mg Q6HR NEB 03/13/25 12:00 03/24/25 06:17 0.5 MG Saccharomyces Boulardii 250 mg DAILY PO 03/14/25 10:00 03/24/25 10:05 250 MG Enteral Nutritional Formula 1,000 ml 30ML/HR GT 03/14/25 08:45 03/24/25 06:05 1,000 ML Enoxaparin Sodium 30 mg DAILY SC 03/18/25 10:00 03/24/25 10:05 30 MG Metoprolol Tartrate 25 mg BID GT 03/21/25 10:00 03/24/25 10:06 25 MG Metoclopramide HCl 10 mg Q8HP PRN GT 03/21/25 10:15 Propofol 100 ml @ 2.277 mls/ hr Q24H IV 03/21/25 10:15 03/24/25 04:55 18.216 MLS/HR Duloxetine HCl 30 mg DAILY PO 03/22/25 10:00 03/24/25 10:06 30 MG Lamotrigine 25 mg DAILY PO 03/22/25 10:00 03/24/25 10:05 25 MG Olanzapine 5 mg DAILY PO 03/22/25 10:00 03/24/25 10:05 5 MG Atorvastatin Calcium 80 mg HS PO 03/24/25 22:00 objective The patient is well-nourished and well-developed with no distress. The patient is intubated MUSCULOSKELETAL EXAM: Status post right BKA MENTAL STATUS: Subjective CRANIAL NERVES: Pupils are equal, round and reactive, small. There are corneal reflexes and doll's eyes phenomenon. No signs of facial weakness. There are no gagging or coughing reflexes SENSATION: responses to pain stimuli. MOTOR: Normal tone in the upper and lower extremity. Normal muscle bulk. No fasciculations. She moves her arms. REFLEXES: Deep tendon reflexes are symmetrical. No pathological reflexes. CEREBELLAR/COORDINATION: Deferred GAIT/STATION: deferred. laboratory and microbiology Laboratory Tests 03/24/25 05:07 Test 03/24/25 05:07 Range/Units Serum Glucose 96 74-106 mg/dL Problem List Acute respiratory failure Excessive nasal bleeding Come Metabolic encephalopathy Hypoxic encephalopathy Toxic encephalopathy General weakness Multiple acute/subacute strokes (MRI head: 02/19/2025, 03/21/2025) Status post right BKA Depression Assessment/Plan Monitoring Supportive treatment [facility] ICU Stabilize vitals Respiratory support/vent management Oxygen Antibiotics Aspirin 81 mg daily (HOLD), resume if okay with hospitalist Lipitor 80mg Qd Cymbalta 30 mg b.i.d. DVT prophylaxis/Lovenox Quit tobacco smoking completely Wean off sedation as tolerated On sitter CPAP trial More recommendation per clinical course This medical document was created using an electronic medical record system with [employer] dictation system. Although this document has been carefully reviewed, there may still be some phonetic and typographical errors. These areas are purely typographical due to imperfections of the software programs, and do not reflect any compromise in the patient's medical care. Prognosis guarded Dietary Evaluation Review Comments: 1) Esau 1 pk BID 2) Refer Building Attendant on DC 3) Continue current plan of care Expected Outcomes/Goals: Pt will meet >75% estimated needs Fu 3-5 days Plan discussed with: Other NEELA RUEDA MD Mar 24, 2025 10:46
--- NOTE | 2025-03-24 12:41 | DVHPN2 ---
Progress Note - Dictate Date Seen: Mar 24, 2025 Medical Necessity Reason Pt with a Central, PICC or Fol: Yes The following are medically ne: Acosta Catheter Reason for acosta catheter: Strict I&O vital signs Vital Sign Date Time Temp Pulse Resp B/P (MAP) Pulse Ox O2 Delivery O2 Flow Rate FiO2 03/24/25 11:36 76 24 134/73 (93) 96 40 03/24/25 10:00 Mechanical Ventilator+ 03/24/25 08:00 98.6 98.6 Total Intake and Output 03/23/25 03/23/25 03/24/25 15:00 23:00 07:00 Intake Total 340.012 ml 649.728 ml 434.648 ml Output Total 625 ml 545 ml Balance 340.012 ml 24.728 ml -110.352 ml medications Current Medications Medications Dose Ordered Sig/John Route Start Time Stop Time Status Last Admin Dose Admin Ondansetron HCl 4 mg Q4HP PRN IV 02/19/25 13:45 03/06/25 02:55 4 MG Docusate Sodium 100 mg BIDPRN PRN PO 02/19/25 13:45 03/04/25 17:41 100 MG Acetaminophen 650 mg Q6HP PRN PO 02/19/25 13:45 03/09/25 21:36 650 MG Nitroglycerin 0.4 mg Q5MINP PRN SL 02/19/25 13:45 Diagnostic Test (Pha) 1 strip ACHS 02/19/25 17:00 03/24/25 11:38 1 STRIP Dextrose 50 ml UD PRN IV 02/19/25 15:45 03/14/25 21:04 50 ML Potassium Chloride 100 ml @ 50 mls/hr Q2H IV 02/19/25 23:15 02/20/25 05:14 Cancel Potassium Chloride 100 ml @ 50 mls/hr Q2H IV 02/20/25 07:15 02/20/25 11:14 UNV Insulin Human Regular ACHS SC 02/28/25 17:00 03/23/25 11:30 2 UNITS Gabapentin 100 mg TID PO 03/02/25 14:00 03/24/25 06:00 100 MG Calcium Acetate 1,334 mg TIDWMEALS PO 03/04/25 12:00 03/24/25 10:05 1,334 MG Ergocalciferol 50,000 unit Q7D PO 03/04/25 11:45 03/18/25 12:43 50,000 UNIT Zirconium Oxide 10 gm TID PO 03/07/25 14:00 Cancel Sodium Bicarbonate 50 ml/ Sodium Chloride 1,050 ml @ 100 mls/hr [id number] IV 03/07/25 11:45 Cancel Hydralazine HCl 10 mg Q6HPRN PRN IV 03/11/25 15:30 03/21/25 03:41 10 MG Norepinephrine Bitartrate 250 ml @ 3.75 mls/hr Q24H IV 03/13/25 02:00 03/14/25 13:44 3.75 MLS/HR Fentanyl Citrate 250 ml @ 2.5 mls/hr Q24H IV 03/13/25 02:30 03/24/25 06:04 15 MLS/HR Ceftriaxone Sodium 50 ml @ 100 mls/hr Q24H IV 03/13/25 04:00 03/24/25 04:59 100 MLS/HR Clindamycin Phosphate 50 ml @ 50 mls/hr Q8HR IV 03/13/25 06:00 03/24/25 05:54 50 MLS/HR Pantoprazole Sodium 40 mg BID IV 03/13/25 10:00 03/24/25 10:05 40 MG Albuterol 2.5 mg Q6HR NEB 03/13/25 12:00 03/24/25 11:35 2.5 MG Ipratropium [place] 0.5 mg Q6HR NEB 03/13/25 12:00 03/24/25 11:35 0.5 MG Saccharomyces Boulardii 250 mg DAILY PO 03/14/25 10:00 03/24/25 10:05 250 MG Enteral Nutritional Formula 1,000 ml 30ML/HR GT 03/14/25 08:45 03/24/25 06:05 1,000 ML Enoxaparin Sodium 30 mg DAILY SC 03/18/25 10:00 03/24/25 10:05 30 MG Metoprolol Tartrate 25 mg BID GT 03/21/25 10:00 03/24/25 10:06 25 MG Metoclopramide HCl 10 mg Q8HP PRN GT 03/21/25 10:15 Propofol 100 ml @ 2.277 mls/ hr Q24H IV 03/21/25 10:15 03/24/25 04:55 18.216 MLS/HR Duloxetine HCl 30 mg DAILY PO 03/22/25 10:00 03/24/25 10:06 30 MG Lamotrigine 25 mg DAILY PO 03/22/25 10:00 03/24/25 10:05 25 MG Olanzapine 5 mg DAILY PO 03/22/25 10:00 03/24/25 10:05 5 MG Atorvastatin Calcium 80 mg HS PO 03/24/25 22:00 laboratory and microbiology Laboratory Tests 03/24/25 05:07 Test 03/24/25 05:07 Range/Units Serum Glucose 96 74-106 mg/dL Assessment/Plan Impression Acute hypoxemic respiratory failure Altered mental status Hx of CVA Sepsis Patient seen and examined in ICU Events On mechanical ventilation S/p intubation PEEP 5, FiO2 30% Labs and imaging reviewed ABG reviewed MRI new strokes ?cause Management start iv heparin drip rpt echo MAGALIS bubble study Vent support Titrate to maintain sats 90% or above for airway protection Continue antibiotics F/u cultures Bronchodilators Monitor renal function Monitor electrolytes Supplement as needed Pressors as needed for hemodynamic support To maintain a mean arterial pressure of 65 mmHg Restart all psychiatric medications DVT prophylaxis Critical care time 35 minutes Dietary Evaluation Review Comments: 1) Esau 1 pk BID 2) Refer Mechanical Oxidizer on DC 3) Continue current plan of care Expected Outcomes/Goals: Pt will meet >75% estimated needs Fu 3-5 days Plan discussed with: Other (rn) ARUNA BRISENO MD Mar 24, 2025 12:40
--- NOTE | 2025-03-24 17:47 | DVH ---
CHEST RADIOGRAPH Indication: CENTRAL LINE PLACEMEN Technique: Single frontal view of the chest was obtained COMPARISON: XY CHEST XRAY 1 VIEW on DOS: 03/24/25, XY CHEST XRAY 1 VIEW on DOS: 03/23/25, XY CHEST PORT ABLE on DOS: 03/22/25, XY CHEST PORTABLE on DOS: 03/21/25, XY CHEST PORTABLE on DOS: 03/19/25 FINDINGS: Lines and Tubes: Endotracheal tube 2.3 cm above the caleb. Central line is in the superior vena cava . NG tube is seen coursing into the body of the stomach but not seen distally. Lung magana unchanged from prior study Stable heart size Pleura: No effusion. No pneumothorax. Cardiomediastinal contours: Unremarkable Bones: Unremarkable IMPRESSION: Endotracheal tube 2.3 cm above the caleb. Central line is in the superior vena cava. NG tube seen c oursing into the body of the stomach but not seen distally Stable heart size Lung magana unchanged from prior study of 03/24/2025
--- NOTE | 2025-03-24 21:24 | DVHPN2 ---
Assessment/Plan Assessment/Plan ICU note covering seen today during rounds, new MRI with new stroke compared to prior. restart asa lipitor. although possible cardioembolic, patient was in NSR, last myles with no PFO in bubble. POCUS done, no IJ, subclavian or axilary thrombosis on b/l UE. hyperechic structure seen in LA, likely reverberation from LVOT (positional, doesnt necessarily looks like mass), bubble negative. low suspicion of CSVT. swtiching acosta, TLC. physical exam sedated, intubated on mechanical ventilation PERRLA MMM reflex intact mechanical breath sounds s1 s2 RRR abdomen soft R BKA labs ekg imaging reviewed assessment and plan Acute hypoxic/metabolic/toxic encephalopathy Acute hypoxic respiratory failure Severe sepsis with leukocytosis and fever due to soft tissue infection/cellulitis and suspected left knee infection Multiple acute/subacute strokes Electrolytes imbalance with hypokalemia and hypomagnesemia TATIANNA; most likely vasomotor nephropathy in the setting of sepsis; avoid nephrotoxic agents; nephrology is following; morning labs pending; continue monitoring Uncontrolled diabetes mellitus type 2 with hyperglycemia PAD status post right BKA Multiple left foot diabetic ulcers Polysubstance (marijuana and tobacco) use disorder Obesity c/w mechanical vent, decrease TV c/w sedation, RAAS -3 c/w pressors / nicardipine maintain sbp 100-180/ dbp 70-105 c/w oral antihtn start asa, lipitor transfuse to keep hb >7 deline MYLES for LAITH,LA,LV thrombus or veg c/w rest of management diet tf dvt ppx lovenox gi ppx protonix full code prognosis poor condition critical 90 minutes critical care time spent Plan discussed with: Other My Orders Orders - JENNIFER HAWTHORNE MD Procedure Category Date Status Time Ventilator Orders RT 03/24/25 Transmitted 11:40 Chest Portable XY 03/24/25 Resulted 17:05 Ok To Change Acosta ORDERS 03/24/25 Transmitted 18:35 Date of Service: Mar 24, 2025 Billing Provider: JENNIFER HAWTHORNE MD Common Visit Codes: 85377-[id number] CARE 30-74 MIN, 84362-[id number] CARE-EACH +30MIN JENNIFER HAWTHORNE MD Mar 24, 2025 21:24
[2025-03-24] MEDS: ATORVASTATIN 20 MG TAB PO SCH (21:44)
--- NOTE | 2025-03-24 23:54 | DVHPN2 ---
Progress Note - Dictate Date Seen: Mar 24, 2025 Medical Necessity Reason Pt with a Central, PICC or Fol: Yes The following are medically ne: Acosta Catheter Reason for acosta catheter: Strict I&O Subjective Patient was seen and evaluated in follow up in the ICU. Patient is intubated on ventilator. 40% FiO2. The patient is awake, responsive to verbal stimuli, but she does not follow my verbal commands. HGB 7.7, HCT 23.1, BUN 31, Labor/Excavator 1.34, Alk Phos 242. vital signs Vital Sign Date Time Temp Pulse Resp B/P (MAP) Pulse Ox O2 Delivery O2 Flow Rate FiO2 03/24/25 22:45 65 20 92/58 (69) 99 03/24/25 22:25 40 03/24/25 22:00 Mechanical Ventilator+ 03/24/25 20:00 97.5 97.5 Total Intake and Output 03/23/25 03/23/25 03/24/25 15:00 23:00 07:00 Intake Total 340.012 ml 649.728 ml 434.648 ml Output Total 625 ml 545 ml Balance 340.012 ml 24.728 ml -110.352 ml medications Current Medications Medications Dose Ordered Sig/John Route Start Time Stop Time Status Last Admin Dose Admin Ondansetron HCl 4 mg Q4HP PRN IV 02/19/25 13:45 03/06/25 02:55 4 MG Docusate Sodium 100 mg BIDPRN PRN PO 02/19/25 13:45 03/04/25 17:41 100 MG Acetaminophen 650 mg Q6HP PRN PO 02/19/25 13:45 03/09/25 21:36 650 MG Nitroglycerin 0.4 mg Q5MINP PRN SL 02/19/25 13:45 Diagnostic Test (Pha) 1 strip ACHS 02/19/25 17:00 03/24/25 21:45 1 STRIP Dextrose 50 ml UD PRN IV 02/19/25 15:45 03/14/25 21:04 50 ML Potassium Chloride 100 ml @ 50 mls/hr Q2H IV 02/19/25 23:15 02/20/25 05:14 Cancel Potassium Chloride 100 ml @ 50 mls/hr Q2H IV 02/20/25 07:15 02/20/25 11:14 UNV Insulin Human Regular ACHS SC 02/28/25 17:00 03/23/25 11:30 2 UNITS Gabapentin 100 mg TID PO 03/02/25 14:00 03/24/25 21:44 100 MG Calcium Acetate 1,334 mg TIDWMEALS PO 03/04/25 12:00 03/24/25 18:11 1,334 MG Ergocalciferol 50,000 unit Q7D PO 03/04/25 11:45 03/18/25 12:43 50,000 UNIT Zirconium Oxide 10 gm TID PO 03/07/25 14:00 Cancel Sodium Bicarbonate 50 ml/ Sodium Chloride 1,050 ml @ 100 mls/hr [id number] IV 03/07/25 11:45 Cancel Hydralazine HCl 10 mg Q6HPRN PRN IV 03/11/25 15:30 03/21/25 03:41 10 MG Norepinephrine Bitartrate 250 ml @ 3.75 mls/hr Q24H IV 03/13/25 02:00 03/14/25 13:44 3.75 MLS/HR Fentanyl Citrate 250 ml @ 2.5 mls/hr Q24H IV 03/13/25 02:30 03/24/25 21:11 15 MLS/HR Ceftriaxone Sodium 50 ml @ 100 mls/hr Q24H IV 03/13/25 04:00 03/24/25 04:59 100 MLS/HR Clindamycin Phosphate 50 ml @ 50 mls/hr Q8HR IV 03/13/25 06:00 03/24/25 21:59 50 MLS/HR Pantoprazole Sodium 40 mg BID IV 03/13/25 10:00 03/24/25 21:44 40 MG Albuterol 2.5 mg Q6HR NEB 03/13/25 12:00 03/24/25 18:28 2.5 MG Ipratropium [place] 0.5 mg Q6HR NEB 03/13/25 12:00 03/24/25 18:28 0.5 MG Saccharomyces Boulardii 250 mg DAILY PO 03/14/25 10:00 03/24/25 10:05 250 MG Enteral Nutritional Formula 1,000 ml 30ML/HR GT 03/14/25 08:45 03/24/25 06:05 1,000 ML Metoprolol Tartrate 25 mg BID GT 03/21/25 10:00 03/24/25 21:45 25 MG Metoclopramide HCl 10 mg Q8HP PRN GT 03/21/25 10:15 Propofol 100 ml @ 2.277 mls/ hr Q24H IV 03/21/25 10:15 03/24/25 21:43 18.216 MLS/HR Duloxetine HCl 30 mg DAILY PO 03/22/25 10:00 03/24/25 10:06 30 MG Lamotrigine 25 mg DAILY PO 03/22/25 10:00 03/24/25 10:05 25 MG Olanzapine 5 mg DAILY PO 03/22/25 10:00 03/24/25 10:05 5 MG Atorvastatin Calcium 80 mg HS PO 03/24/25 22:00 03/24/25 21:44 80 MG Enoxaparin Sodium 40 mg DAILY SC 03/25/25 10:00 Aspirin 81 mg DAILY NG 03/25/25 10:00 objective GENERAL: Intubated on ventilator. EYES: PERRL, EOMI. Anicteric. HENT: Moist mucous membranes. LUNGS: Decreased breath sounds. CARDIOVASCULAR: Regular rate and rhythm. ABDOMEN: Soft, non-tender and non-distended. EXTREMITIES: No edema. SKIN: Warm, dry. laboratory and microbiology Laboratory Tests 03/24/25 05:07 Test 03/24/25 05:07 Range/Units Serum Glucose 96 74-106 mg/dL Problem List Multiple acute/subacute strokes. Hypokalemia. Acute kidney injury. Hypertension, newly diagnosed. Insulin-dependent diabetes mellitus. Status post right BKA. Dyslipidemia. Polysubstance use disorder. Left lower extremity cellulitis. Peripheral vascular disease status post right [id number] amputation 6 months ago. Sepsis. Diabetic neuropathy. Assessment/Plan Continued all current supportive medical care. [place] for pain management. IV antibiotics as ordered. DVT and GI prophylactics. IV Hydralazine for SBP >160. Vasopressors for hemodynamic support. Additional plan as per the hospital course. Critical care time of 45 minutes provided to include time spent evaluation of patient at bedside, when appropriate patient/family education for diagnosis, treatment plan, review of pertinent medical information and discussion of care with specialty providers and PCP. Mechanical ventilator parameters, treatment and adjustments have personally been reviewed by me and treatment plan by can handler has also been reviewed. Dietary Evaluation Review Comments: 1) Esau 1 pk BID 2) Refer Salesperson Men'[employer] Furnishings on DC 3) Continue current plan of care Expected Outcomes/Goals: Pt will meet >75% estimated needs Fu 3-5 days Plan discussed with: Other YANIRA WINN MD Mar 24, 2025 23:53
[2025-03-25] VITALS (109 sets, daily range): BP systolic 84–168; BP diastolic 38–81; PULSE 62–87; RESP 10–21; TEMP 97.9–99.1; O2SAT 88–100
[2025-03-25 05:22] LABS: Basophils # (auto) 0.1 10 ^3/uL (0-0.2); Eosinophils # (auto) 0.4 10 ^3/uL (0-0.8); Monocytes # (auto) 0.5 10 ^3/uL (0-1.3); Red Blood Cells 2.87 10^6/uL (4.0-5.20)
[2025-03-25 05:25] LABS: Eosinophils % (auto) 4.3 % (0.0-7.0); Hemoglobin 7.8 g/dL (12.2-16.2); Lymphocytes # (auto) 1.2 10 ^3/uL (0.4-5.4); Lymphocytes % (auto) 12.9 % (10.0-50.0); Mean Corpuscular Hemoglobin 27.3 pg (28.0-32.0); Mean Corpuscular Hgb Conc. 32.7 g/dL (32.0-36.0); Mean Corpuscular Volume 83.6 fL (80.0-100.0); Monocytes % (auto) 5.5 % (0.0-12.0); Neutrophils # (auto) 7.3 10 ^3/uL (1.6-8.6); Neutrophils % (auto) 76.3 % (37.0-80.0); Platelet Count (auto) 478 10^3/uL (140-450); Red Cell Distribution Width 16.4 % (11.8-14.3); White Blood Cell 9.5 10^3/uL (4.4-10.8)
[2025-03-25 05:57] LABS: Anion Gap 7 (5-15); BUN/Creatinine Ratio 21.5 (10.0-20.0); Calcium 8.8 mg/dL (8.7-10.4); Carbon Dioxide 23 mmol/L (20-31); Magnesium 1.9 mg/dL (1.6-2.6); Potassium 3.6 mmol/L (3.5-5.1); Sodium 141 mmol/L (136-145)
[2025-03-25 05:58] LABS: Aspartate Aminotransferase 14 U/L (13-40); Phosphorus 4.3 mg/dL (2.4-5.1)
[2025-03-25 06:07] LABS: Alanine Aminotransferase < 9 U/L (7-40); Albumin 2.4 g/dL (3.2-4.8); Alkaline Phosphatase 257 U/L (46-116); Bilirubin, Total < 0.2 mg/dL (0.2-1.0); Blood Urea Nitrogen 31 mg/dL (9-23); Chloride 111 mmol/L (98-107); Glucose 136 mg/dL (74-106); Total Protein 5.1 g/dL (5.7-8.2)
[2025-03-25 06:27] LABS: Triglycerides 214 mg/dL (< 150)
[2025-03-25 06:37] LABS: Base Excess -0.1 mmol/L (-2.0-3.0)
[2025-03-25] MEDS: ASPirin 81 mg TAB NG SCH (10:29)
[2025-03-25] MEDS: ENOXAPARIN SOD 40 MG/0.4 ML SYRINGE SC SCH (10:32)
--- NOTE | 2025-03-25 11:15 | DVHPN2 ---
Progress Note - Dictate Date Seen: Mar 25, 2025 Medical Necessity Reason Pt with a Central, PICC or Fol: Yes The following are medically ne: Acosta Catheter Reason for acosta catheter: Strict I&O Subjective Mr. Kaur is a 54 years old right-handed female with a history of hypertension, diabetes, dyslipidemia, anxiety, GERD, osteo myelitis status post right BKA, she came to the [facility] on 02/19/25 with a chief complaint of general weakness. He was transferred/ICU on 03/13/25 for ALOC, nasal bleeding and intubation I have seen and examined the patient, I have talked to her nurse, her eyes are open, she moves the head can and both arms, maybe right arm stronger, but she is nonresponsive to verbal stimuli today Psychiatry consultation, 02/26/25: 1:1 sitter. Transferred to inpatient psychiatric facility. Cymbalta 30 mg b.i.d. Follow MRI brain scan on 03/21/2025 showed new multiple strokes Fentanyl 100 mcg/hour, Versed 0 mg/hour, propofol 3 mcg/minute ABG, 03/13/2025: Unremarkable UDS, 02/19/2025: Cannabinoids Plasma alcohol, 02/19/2025: 3 Urinalysis, 02/19, : WBC: 2, urine leukocyte esterase WBC/HB/PLT/MCV, 02/20/2025: 21.9/10.9/398/83.1, 03/13/2025: 11.7/6.5/424/85.4 PT/INR/PTT, 03/13/2025: 10.6/1/38.6 K, 02/19/2025: 1.7, 02/20/2025: 2.1 BUN/CR, 02/20/2025: 33/2.03, 03/13/2025: 51.93 HGB A1c, 06/03/2024: 13.1 Liver function tests, 02/20/2025: Unremarkable TG/HDL/LDL/HDL, 04/11/2024: 180/238/164/43 MAGALIS, 02/21/2025: 1. Technically good study. Sinus rhythm. 2. Left atrial enlargement. 3. Number Valves appear to be structurally normal. 4. Ventricular systolic function is preserved at 60% with normal RV function. 5. Doppler reveals mild TR. No significant mitral or aortic insufficiency. No atrial septal or ventricular septal defects 6. No masses or vegetations discernible. 7. The atrial appendage looks clean, no masses. No atrial or ventricular septal defects as noted. No abnormal shunting. Bubble study was negative 8. The valves appear to be structurally normal. No vegetations or signs of emboli present. Carotid Doppler, 02/20/2025: No hemodynamically significant stenosis noted in the right carotid system. No hemodynamically significant stenosis noted in the left carotid system. Chest X-ray, 03/19/25: 1. Endotracheal tube terminates 4cm from caleb. Other lines and tubes are unchanged in position. 2. Bilateral airspace disease similar to prior study. CT head, : Small age-indeterminate infarct extending from the right jorge radiata into the right basal ganglia. Further evaluation with MRI brain with diffusion-weighted imaging is recommended. CT head, , No acute intracranial abnormality. Multiple subacute bilateral lacunar infarcts as seen on prior MRI. MRI head, 02/19/2025: 1. There are multiple small foci of acute to subacute infarct in the right jorge radiata and right basal ganglia. There are also multiple small acute to subacute infarcts in the left anteromedial frontal lobe and in the left jorge radiata and left basal ganglia. There is no evidence of acute hemorrhage MR head, 03/21/2025: 1. Multiple foci of restricted diffusion involving the left corpus callosum, bilateral basal ganglia and right jorge radiata. The largest area involves the left splenium of the corpus callosum. These likely represent acute to subacute infarcts. There is no evidence of acute hemorrhage. 2. Moderate amount of fluid in the bilateral mastoid air cells MRI left foot, 02/22/25: Moderate dorsal subcutaneous edema. No evidence of osteomyelitis. No drainable fluid collection noted. Moderate myositis. vital signs Vital Sign Date Time Temp Pulse Resp B/P (MAP) Pulse Ox O2 Delivery O2 Flow Rate FiO2 03/25/25 10:29 70 138/88 03/25/25 10:07 20 93 30 03/25/25 08:00 Mechanical Ventilator+ 03/25/25 04:00 98.8 98.8 Total Intake and Output 03/24/25 03/24/25 03/25/25 15:00 23:00 07:00 Intake Total 243.897 ml 365.728 ml 762.512 ml Output Total 325 ml 300 ml Balance 243.897 ml 40.728 ml 462.512 ml medications Current Medications Medications Dose Ordered Sig/John Route Start Time Stop Time Status Last Admin Dose Admin Ondansetron HCl 4 mg Q4HP PRN IV 02/19/25 13:45 03/06/25 02:55 4 MG Docusate Sodium 100 mg BIDPRN PRN PO 02/19/25 13:45 03/04/25 17:41 100 MG Acetaminophen 650 mg Q6HP PRN PO 02/19/25 13:45 03/09/25 21:36 650 MG Nitroglycerin 0.4 mg Q5MINP PRN SL 02/19/25 13:45 Diagnostic Test (Pha) 1 strip ACHS 02/19/25 17:00 03/25/25 06:08 1 STRIP Dextrose 50 ml UD PRN IV 02/19/25 15:45 03/14/25 21:04 50 ML Potassium Chloride 100 ml @ 50 mls/hr Q2H IV 02/19/25 23:15 02/20/25 05:14 Cancel Potassium Chloride 100 ml @ 50 mls/hr Q2H IV 02/20/25 07:15 02/20/25 11:14 UNV Insulin Human Regular ACHS SC 02/28/25 17:00 03/25/25 06:17 2 UNITS Gabapentin 100 mg TID PO 03/02/25 14:00 03/25/25 06:07 100 MG Calcium Acetate 1,334 mg TIDWMEALS PO 03/04/25 12:00 03/25/25 08:54 1,334 MG Ergocalciferol 50,000 unit Q7D PO 03/04/25 11:45 03/18/25 12:43 50,000 UNIT Zirconium Oxide 10 gm TID PO 03/07/25 14:00 Cancel Sodium Bicarbonate 50 ml/ Sodium Chloride 1,050 ml @ 100 mls/hr [id number] IV 03/07/25 11:45 Cancel Hydralazine HCl 10 mg Q6HPRN PRN IV 03/11/25 15:30 03/21/25 03:41 10 MG Norepinephrine Bitartrate 250 ml @ 3.75 mls/hr Q24H IV 03/13/25 02:00 03/14/25 13:44 3.75 MLS/HR Fentanyl Citrate 250 ml @ 2.5 mls/hr Q24H IV 03/13/25 02:30 03/24/25 21:11 15 MLS/HR Ceftriaxone Sodium 50 ml @ 100 mls/hr Q24H IV 03/13/25 04:00 03/25/25 05:20 100 MLS/HR Clindamycin Phosphate 50 ml @ 50 mls/hr Q8HR IV 03/13/25 06:00 03/25/25 06:07 50 MLS/HR Pantoprazole Sodium 40 mg BID IV 03/13/25 10:00 03/25/25 10:29 40 MG Albuterol 2.5 mg Q6HR NEB 03/13/25 12:00 03/25/25 06:11 2.5 MG Ipratropium [place] 0.5 mg Q6HR NEB 03/13/25 12:00 03/25/25 06:11 0.5 MG Saccharomyces Boulardii 250 mg DAILY PO 03/14/25 10:00 03/25/25 10:30 250 MG Enteral Nutritional Formula 1,000 ml 30ML/HR GT 03/14/25 08:45 03/24/25 06:05 1,000 ML Metoprolol Tartrate 25 mg BID GT 03/21/25 10:00 03/25/25 10:29 25 MG Metoclopramide HCl 10 mg Q8HP PRN GT 03/21/25 10:15 Propofol 100 ml @ 2.277 mls/ hr Q24H IV 03/21/25 10:15 03/25/25 03:15 18.216 MLS/HR Duloxetine HCl 30 mg DAILY PO 03/22/25 10:00 03/24/25 10:06 30 MG Lamotrigine 25 mg DAILY PO 03/22/25 10:00 03/25/25 10:30 25 MG Olanzapine 5 mg DAILY PO 03/22/25 10:00 03/25/25 10:30 5 MG Atorvastatin Calcium 80 mg HS PO 03/24/25 22:00 03/24/25 21:44 80 MG Enoxaparin Sodium 40 mg DAILY SC 03/25/25 10:00 03/25/25 10:32 40 MG Aspirin 81 mg DAILY NG 03/25/25 10:00 03/25/25 10:29 81 MG objective The patient is well-nourished and well-developed with no distress. The patient is intubated MUSCULOSKELETAL EXAM: Status post right BKA MENTAL STATUS: Subjective CRANIAL NERVES: Pupils are equal, round and reactive, small. There are corneal reflexes and doll's eyes phenomenon. No signs of facial weakness. There are no gagging or coughing reflexes SENSATION: responses to pain stimuli. MOTOR: Normal tone in the upper and lower extremity. Normal muscle bulk. No fasciculations. She moves her arms. REFLEXES: Deep tendon reflexes are symmetrical. No pathological reflexes. CEREBELLAR/COORDINATION: Deferred GAIT/STATION: deferred. laboratory and microbiology Laboratory Tests 03/25/25 04:40 Test 03/25/25 04:40 Range/Units Serum Glucose 136 H 74-106 mg/dL Problem List Acute respiratory failure Excessive nasal bleeding Come Metabolic encephalopathy Hypoxic encephalopathy Toxic encephalopathy General weakness Multiple acute/subacute strokes (MRI head: 02/19/2025, 03/21/2025) Status post right BKA Depression Assessment/Plan Monitoring Supportive treatment MAGALIS ICU Stabilize vitals Respiratory support/vent management Oxygen Antibiotics Aspirin 81 mg daily Lipitor 80mg Qd Cymbalta 30 mg b.i.d. DVT prophylaxis/Lovenox Quit tobacco smoking completely Wean off sedation as tolerated Consider CPAP trial and extubation More recommendation per clinical course This medical document was created using an electronic medical record system with [employer] dictation system. Although this document has been carefully reviewed, there may still be some phonetic and typographical errors. These areas are purely typographical due to imperfections of the software programs, and do not reflect any compromise in the patient's medical care. Prognosis guarded Dietary Evaluation Review Comments: 1) Esau 1 pk BID 2) Refer Quality Head on DC 3) Continue current plan of care Expected Outcomes/Goals: Pt will meet >75% estimated needs Fu 3-5 days Plan discussed with: Other NEELA RUEDA MD Mar 25, 2025 11:15
--- NOTE | 2025-03-25 13:04 | DVHPN2 ---
Progress Note - Dictate Date Seen: Mar 25, 2025 Medical Necessity Reason Pt with a Central, PICC or Fol: Yes The following are medically ne: Acosta Catheter Reason for acosta catheter: Strict I&O vital signs Vital Sign Date Time Temp Pulse Resp B/P (MAP) Pulse Ox O2 Delivery O2 Flow Rate FiO2 03/25/25 12:30 71 20 130/68 (88) 96 03/25/25 12:01 30 03/25/25 12:00 Mechanical Ventilator+ 03/25/25 12:00 98.2 98.2 Total Intake and Output 03/24/25 03/24/25 03/25/25 15:00 23:00 07:00 Intake Total 243.897 ml 365.728 ml 795.728 ml Output Total 325 ml 300 ml Balance 243.897 ml 40.728 ml 495.728 ml medications Current Medications Medications Dose Ordered Sig/John Route Start Time Stop Time Status Last Admin Dose Admin Acetaminophen 650 mg Q6HP PRN PO 02/19/25 13:45 03/09/25 21:36 650 MG Diagnostic Test (Pha) 1 strip ACHS 02/19/25 17:00 03/25/25 06:08 1 STRIP Dextrose 50 ml UD PRN IV 02/19/25 15:45 03/14/25 21:04 50 ML Potassium Chloride 100 ml @ 50 mls/hr Q2H IV 02/19/25 23:15 02/20/25 05:14 Cancel Potassium Chloride 100 ml @ 50 mls/hr Q2H IV 02/20/25 07:15 02/20/25 11:14 UNV Insulin Human Regular ACHS SC 02/28/25 17:00 03/25/25 06:17 2 UNITS Gabapentin 100 mg TID PO 03/02/25 14:00 03/25/25 06:07 100 MG Calcium Acetate 1,334 mg TIDWMEALS PO 03/04/25 12:00 03/25/25 08:54 1,334 MG Ergocalciferol 50,000 unit Q7D PO 03/04/25 11:45 03/18/25 12:43 50,000 UNIT Zirconium Oxide 10 gm TID PO 03/07/25 14:00 Cancel Sodium Bicarbonate 50 ml/ Sodium Chloride 1,050 ml @ 100 mls/hr [id number] IV 03/07/25 11:45 Cancel Fentanyl Citrate 250 ml @ 2.5 mls/hr Q24H IV 03/13/25 02:30 03/25/25 12:50 17.5 MLS/HR Ceftriaxone Sodium 50 ml @ 100 mls/hr Q24H IV 03/13/25 04:00 03/25/25 05:20 100 MLS/HR Clindamycin Phosphate 50 ml @ 50 mls/hr Q8HR IV 03/13/25 06:00 03/25/25 06:07 50 MLS/HR Pantoprazole Sodium 40 mg BID IV 03/13/25 10:00 03/25/25 10:29 40 MG Albuterol 2.5 mg Q6HR NEB 03/13/25 12:00 03/25/25 12:05 2.5 MG Ipratropium [place] 0.5 mg Q6HR NEB 03/13/25 12:00 03/25/25 12:05 0.5 MG Saccharomyces Boulardii 250 mg DAILY PO 03/14/25 10:00 03/25/25 10:30 250 MG Enteral Nutritional Formula 1,000 ml 30ML/HR GT 03/14/25 08:45 03/24/25 06:05 1,000 ML Metoprolol Tartrate 25 mg BID GT 03/21/25 10:00 03/25/25 10:29 25 MG Propofol 100 ml @ 2.277 mls/ hr Q24H IV 03/21/25 10:15 03/25/25 12:51 18.216 MLS/HR Duloxetine HCl 30 mg DAILY PO 03/22/25 10:00 03/24/25 10:06 30 MG Lamotrigine 25 mg DAILY PO 03/22/25 10:00 03/25/25 10:30 25 MG Olanzapine 5 mg DAILY PO 03/22/25 10:00 03/25/25 10:30 5 MG Atorvastatin Calcium 80 mg HS PO 03/24/25 22:00 03/24/25 21:44 80 MG Enoxaparin Sodium 40 mg DAILY SC 03/25/25 10:00 03/25/25 10:32 40 MG Aspirin 81 mg DAILY NG 03/25/25 10:00 03/25/25 10:29 81 MG laboratory and microbiology Laboratory Tests 03/25/25 04:40 Test 03/25/25 04:40 Range/Units Serum Glucose 136 H 74-106 mg/dL Assessment/Plan Impression Acute hypoxemic respiratory failure Altered mental status Hx of CVA Sepsis Patient seen and examined in ICU Events On mechanical ventilation S/p intubation PEEP 5, FiO2 30% Labs and imaging reviewed ABG reviewed MRI new strokes ?cause Management iv heparin drip rpt echo MAGALIS bubble study Vent support Titrate to maintain sats 90% or above for airway protection Continue antibiotics F/u cultures Bronchodilators Monitor renal function Monitor electrolytes Supplement as needed Pressors as needed for hemodynamic support To maintain a mean arterial pressure of 65 mmHg continue psychiatric meds DVT prophylaxis Critical care time 35 minutes Dietary Evaluation Review Comments: 1) Esau 1 pk BID 2) Refer Business Architect on DC 3) Continue current plan of care Expected Outcomes/Goals: Pt will meet >75% estimated needs Fu 3-5 days Plan discussed with: Other (rn) ARUNA BRISENO MD Mar 25, 2025 13:04
--- NOTE | 2025-03-25 14:36 | DVHNC2 ---
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 (resident) Indication: Relpace: line malfunction (replace IJ line) Room prepared for procedure: Yes Physical Therapist Clinic Director performed hand hygien: Yes Maximal sterile barrier precau: Mask/Eye shield, Sterile gown, Cap, Sterlie gloves, Large sterlie drape Skin Preparation: Chlorhexidine gluconate Skin preparation completely dr: Yes Insertion site: Left, Infraclavicular Central line catheter type: [id number] dialysis Number of lumens: 3 Antiseptic ointment applied to: Yes Post Assessment: Chest X-Ray, Proper placement, No Pneumothorax Notes Left subclavian central line placed under sterile condition under the supervision of Dr. Hawthorne. Post procedure cxr showed no pneumothorax. Placement was also confirmed with bubble study. Date of Service: Mar 24, 2025 Billing Provider: JENNIFER HAWTHORNE MD Common Visit Codes: PROCEDURE ONLY Procedure Codes: [id number] NON-TUNNEL CV CATH PAOLA THRASHER RESIDENT Mar 25, 2025 14:36
--- NOTE | 2025-03-25 15:34 | DVHPN2 ---
Assessment/Plan Assessment/Plan ICU note covering new MRI with new stroke compared to prior. restart asa lipitor. although possible cardioembolic, patient was in NSR, last myles with no PFO in bubble. POCUS done, no IJ, subclavian or axilary thrombosis on b/l UE. hyperechic structure seen in LA, likely reverberation from LVOT (positional, doesnt nece ssarily looks like mass), bubble negative. low suspicion of CSVT. swtiching acosta, TLC. seen today during rounds, start CPAP, sedation vacation, can add oral meds if needed to help with weaning physical exam sedated, intubated on mechanical ventilation PERRLA MMM reflex intact mechanical breath sounds s1 s2 RRR abdomen soft R BKA labs ekg imaging reviewed assessment and plan Acute hypoxic/metabolic/toxic encephalopathy Acute hypoxic respiratory failure Severe sepsis with leukocytosis and fever due to soft tissue infection/cellulitis and suspected left knee infection Multiple acute/subacute strokes Electrolytes imbalance with hypokalemia and hypomagnesemia TATIANNA; most likely vasomotor nephropathy in the setting of sepsis; avoid nephrotoxic agents; nephrology is following; morning labs pending; continue monitoring Uncontrolled diabetes mellitus type 2 with hyperglycemia PAD status post right BKA Multiple left foot diabetic ulcers Polysubstance (marijuana and tobacco) use disorder Obesity c/w mechanical vent, decrease TV c/w sedation, RAAS -3 c/w pressors / nicardipine maintain sbp 100-180/ dbp 70-105 c/w oral antihtn start asa, lipitor transfuse to keep hb >7 deline MYLES for LAITH,LA,LV thrombus or veg c/w rest of management SAT SBT diet tf dvt ppx lovenox gi ppx protonix full code prognosis poor condition critical 50 minutes critical care time spent Plan discussed with: Other My Orders Orders - JENNIFER HAWTHORNE MD Procedure Category Date Status Time Ventilator Orders RT 03/24/25 Transmitted 11:40 Chest Portable XY 03/24/25 Resulted 17:05 Ok To Change Acosta ORDERS 03/24/25 Transmitted 18:35 Aspirin Tablet PHA 03/25/25 In Process 10:00 Abg W/ Co-Ox RT 03/25/25 Logged 06:00 Cpap/Sed Vacation Med ORDERS 03/25/25 Transmitted Weaning 11:35 Cpap Trial For Am ORDERS 03/25/25 Transmitted 11:35 Complete Blood Count LAB 03/26/25 Verified 04:00 Comprehensive LAB 03/26/25 Verified Metabolic Panel 04:00 Magnesium LAB 03/26/25 Verified 04:00 Phosphorus LAB 03/26/25 Verified 04:00 Date of Service: Mar 25, 2025 Billing Provider: JENNIFER HAWTHORNE MD Common Visit Codes: [id number] CARE 30-74 MIN JENNIFER HAWTHORNE MD Mar 25, 2025 15:34
--- NOTE | 2025-03-25 19:12 | DVH ---
CHEST RADIOGRAPH Indication: ETT placement check Technique: Single frontal view of the chest was obtained Comparison: XY CHEST PORTABLE on DOS: 03/24/25, XY CHEST XRAY 1 VIEW on DOS: 03/24/25, XY CHEST XRAY 1 VIEW on DOS: 03/23/25 FINDINGS: Lines and Tubes: Enteric tube is in satisfactory position. Left subclavian approach central venous ca theter terminating over the superior cavoatrial junction. Endotracheal tube terminates about 6.1 cm a mikal the caleb. Lungs: Diffuse interstitial prominence. Obscuration of the left hemidiaphragm. No pneumothorax. Cardiomediastinal contours: Unremarkable Bones: No acute osseous abnormality. IMPRESSION: Endotracheal tube, enteric tube and left subclavian approach central venous catheters are in satisfac tory position. Mild pulmonary vascular congestion with possible small left-sided pleural effusion. Underlying infec tious process can not be excluded
--- NOTE | 2025-03-25 23:37 | DVHPN2 ---
Progress Note - Dictate Date Seen: Mar 25, 2025 Medical Necessity Reason Pt with a Central, PICC or Fol: Yes The following are medically ne: Acosta Catheter Reason for acosta catheter: Strict I&O Subjective Patient was seen and evaluated in follow up in the ICU. Patient is intubated on ventilator. 30% FiO2. Patient had a left subclavian central line placed today. HGB 7.8, HCT 24, BUN 31, Gas Collection System Operator 1.44. Chest x-ray shows mild pulmonary vascular congestion with possible small left-sided pleural effusion. vital signs Vital Sign Date Time Temp Pulse Resp B/P (MAP) Pulse Ox O2 Delivery O2 Flow Rate FiO2 03/25/25 23:04 168/81 03/25/25 22:08 81 03/25/25 20:23 20 94 30 03/25/25 20:00 Mechanical Ventilator+ 03/25/25 20:00 98.2 98.2 Total Intake and Output 03/24/25 03/24/25 03/25/25 15:00 23:00 07:00 Intake Total 243.897 ml 365.728 ml 795.728 ml Output Total 325 ml 300 ml Balance 243.897 ml 40.728 ml 495.728 ml medications Current Medications Medications Dose Ordered Sig/John Route Start Time Stop Time Status Last Admin Dose Admin Acetaminophen 650 mg Q6HP PRN PO 02/19/25 13:45 03/09/25 21:36 650 MG Diagnostic Test (Pha) 1 strip ACHS 02/19/25 17:00 03/25/25 22:08 1 STRIP Dextrose 50 ml UD PRN IV 02/19/25 15:45 03/14/25 21:04 50 ML Potassium Chloride 100 ml @ 50 mls/hr Q2H IV 02/19/25 23:15 02/20/25 05:14 Cancel Potassium Chloride 100 ml @ 50 mls/hr Q2H IV 02/20/25 07:15 02/20/25 11:14 UNV Insulin Human Regular ACHS SC 02/28/25 17:00 03/25/25 14:09 2 UNITS Gabapentin 100 mg TID PO 03/02/25 14:00 03/25/25 22:08 100 MG Calcium Acetate 1,334 mg TIDWMEALS PO 03/04/25 12:00 03/25/25 18:00 1,334 MG Ergocalciferol 50,000 unit Q7D PO 03/04/25 11:45 03/25/25 15:05 50,000 UNIT Zirconium Oxide 10 gm TID PO 03/07/25 14:00 Cancel Sodium Bicarbonate 50 ml/ Sodium Chloride 1,050 ml @ 100 mls/hr [id number] IV 03/07/25 11:45 Cancel Fentanyl Citrate 250 ml @ 2.5 mls/hr Q24H IV 03/13/25 02:30 03/25/25 12:50 17.5 MLS/HR Ceftriaxone Sodium 50 ml @ 100 mls/hr Q24H IV 03/13/25 04:00 03/25/25 05:20 100 MLS/HR Clindamycin Phosphate 50 ml @ 50 mls/hr Q8HR IV 03/13/25 06:00 03/25/25 22:13 50 MLS/HR Pantoprazole Sodium 40 mg BID IV 03/13/25 10:00 03/25/25 22:08 40 MG Albuterol 2.5 mg Q6HR NEB 03/13/25 12:00 03/25/25 18:24 2.5 MG Ipratropium [place] 0.5 mg Q6HR NEB 03/13/25 12:00 03/25/25 18:25 0.5 MG Saccharomyces Boulardii 250 mg DAILY PO 03/14/25 10:00 03/25/25 10:30 250 MG Enteral Nutritional Formula 1,000 ml 30ML/HR GT 03/14/25 08:45 03/24/25 06:05 1,000 ML Metoprolol Tartrate 25 mg BID GT 03/21/25 10:00 03/25/25 22:08 25 MG Propofol 100 ml @ 2.277 mls/ hr Q24H IV 03/21/25 10:15 03/25/25 23:04 9.108 MLS/HR Duloxetine HCl 30 mg DAILY PO 03/22/25 10:00 03/24/25 10:06 30 MG Lamotrigine 25 mg DAILY PO 03/22/25 10:00 03/25/25 10:30 25 MG Olanzapine 5 mg DAILY PO 03/22/25 10:00 03/25/25 10:30 5 MG Atorvastatin Calcium 80 mg HS PO 03/24/25 22:00 03/25/25 22:08 80 MG Enoxaparin Sodium 40 mg DAILY SC 03/25/25 10:00 03/25/25 10:32 40 MG Aspirin 81 mg DAILY NG 03/25/25 10:00 03/25/25 10:29 81 MG objective GENERAL: Intubated on ventilator. EYES: PERRL, EOMI. Anicteric. HENT: Moist mucous membranes. LUNGS: Decreased breath sounds. CARDIOVASCULAR: Regular rate and rhythm. ABDOMEN: Soft, non-tender and non-distended. EXTREMITIES: No edema. SKIN: Warm, dry. laboratory and microbiology Laboratory Tests 03/25/25 04:40 Test 03/25/25 04:40 Range/Units Serum Glucose 136 H 74-106 mg/dL Problem List Multiple acute/subacute strokes. Hypokalemia. Acute kidney injury. Hypertension, newly diagnosed. Insulin-dependent diabetes mellitus. Status post right BKA. Dyslipidemia. Polysubstance use disorder. Left lower extremity cellulitis. Peripheral vascular disease status post right [id number] amputation 6 months ago. Sepsis. Diabetic neuropathy. Assessment/Plan Continued all current supportive medical care. Lula for pain management. IV antibiotics as ordered. DVT and GI prophylactics. IV Hydralazine for SBP >160. Vasopressors for hemodynamic support. Additional plan as per the hospital course. Critical care time of 45 minutes provided to include time spent evaluation of patient at bedside, when appropriate patient/family education for diagnosis, treatment plan, review of pertinent medical information and discussion of care with specialty providers and PCP. Mechanical ventilator parameters, treatment and adjustments have personally been reviewed by me and treatment plan by hotel or motel cleaning supervisor has also been reviewed. Dietary Evaluation Review Comments: 1) Esau 1 pk BID 2) Refer Pool Servicer on DC 3) Continue current plan of care Expected Outcomes/Goals: Pt will meet >75% estimated needs Fu 3-5 days Plan discussed with: Other YANIRA WINN MD Mar 25, 2025 23:37
[2025-03-26] VITALS (106 sets, daily range): BP systolic 106–190; BP diastolic 61–101; PULSE 71–102; RESP 11–34; TEMP 97.2–99.5; O2SAT 79–100
[2025-03-26 05:05] LABS: Basophils # (auto) 0.1 10 ^3/uL (0-0.2); Eosinophils # (auto) 0.5 10 ^3/uL (0-0.8); Monocytes # (auto) 0.7 10 ^3/uL (0-1.3)
[2025-03-26 05:08] LABS: Basophils % (auto) 0.7 % (0.0-2.0); Eosinophils % (auto) 4.3 % (0.0-7.0); Hematocrit 24.7 % (36.0-46.0); Lymphocytes # (auto) 1.1 10 ^3/uL (0.4-5.4); Mean Corpuscular Hemoglobin 27.1 pg (28.0-32.0); Mean Corpuscular Hgb Conc. 32.5 g/dL (32.0-36.0); Mean Corpuscular Volume 83.4 fL (80.0-100.0); Monocytes % (auto) 5.7 % (0.0-12.0); Neutrophils # (auto) 9.9 10 ^3/uL (1.6-8.6); Neutrophils % (auto) 80.3 % (37.0-80.0); Platelet Count (auto) 549 10^3/uL (140-450); Red Blood Cells 2.95 10^6/uL (4.0-5.20); Red Cell Distribution Width 16.3 % (11.8-14.3); White Blood Cell 12.4 10^3/uL (4.4-10.8)
[2025-03-26 05:23] LABS: Anion Gap 8 (5-15); Calcium 9.1 mg/dL (8.7-10.4); Carbon Dioxide 24 mmol/L (20-31); Magnesium 1.9 mg/dL (1.6-2.6); Potassium 3.5 mmol/L (3.5-5.1); Sodium 142 mmol/L (136-145)
[2025-03-26 05:24] LABS: Aspartate Aminotransferase 17 U/L (13-40); Phosphorus 4.6 mg/dL (2.4-5.1)
[2025-03-26 05:32] LABS: Alanine Aminotransferase < 9 U/L (7-40); Albumin 2.6 g/dL (3.2-4.8); Alkaline Phosphatase 316 U/L (46-116); Bilirubin, Total < 0.2 mg/dL (0.2-1.0); Blood Urea Nitrogen 29 mg/dL (9-23); Chloride 110 mmol/L (98-107); Glucose 133 mg/dL (74-106); Total Protein 5.6 g/dL (5.7-8.2)
--- NOTE | 2025-03-26 05:36 | DVH ---
EXAM: XR Chest, 1 View CLINICAL INDICATION: Intubated TECHNIQUE: Frontal view of the chest. COMPARISON: XY CHEST PORTABLE on DOS: 03/25/25, XY CHEST PORTABLE on DOS: 03/24/25, XY CHEST XRAY 1 V IEW on DOS: 03/24/25, XY CHEST XRAY 1 VIEW on DOS: 03/23/25, XY CHEST PORTABLE on DOS: 03/22/25 FINDINGS: LUNGS AND PLEURAL SPACES: Bibasilar atelectasis or pneumonia. No pneumothorax. HEART: Unremarkable. No cardiomegaly. MEDIASTINUM: Unremarkable. Normal mediastinal contour. BONES/JOINTS: Unremarkable. No acute fracture. TUBES, LINES AND DEVICES: The endotracheal tube (ETT) is in satisfactory position. Enteric tube ti p in the stomach. OTHER FINDINGS: . . IMPRESSION: Bibasilar atelectasis or pneumonia.
[2025-03-26] MEDS: hydrALAZINE HCL 20 MG/ML VL IV ONE (06:58)
[2025-03-26 07:50] LABS: Base Excess -0.2 mmol/L (-2.0-3.0)
[2025-03-26 11:08] LABS: Base Excess 0.2 mmol/L (-2.0-3.0)
--- NOTE | 2025-03-26 11:09 | DVHPN2 ---
Progress Note - Dictate Date Seen: Mar 26, 2025 Medical Necessity Reason Pt with a Central, PICC or Fol: Yes The following are medically ne: Acosta Catheter Reason for acosta catheter: Strict I&O Subjective Mr. Kaur is a 54 years old right-handed female with a history of hypertension, diabetes, dyslipidemia, anxiety, GERD, osteo myelitis status post right BKA, she came to the [facility] on 02/19/25 with a chief complaint of general weakness. He was transferred/ICU on 03/13/25 for ALOC, nasal bleeding and intubation I have seen and examined the patient, I have talked to her nurse, she was awake, she moves head and arms spontaneously, she follows verbal commands a little bit ? Weakness in the left arm Psychiatry consultation, 02/26/25: 1:1 sitter. Transferred to inpatient psychiatric facility. Cymbalta 30 mg b.i.d. Follow MRI brain scan on 03/21/2025 showed new multiple strokes Fentanyl 100 mcg/hour, Versed 0 mg/hour, propofol 3 mcg/minute ABG, 03/13/2025: Unremarkable UDS, 02/19/2025: Cannabinoids Plasma alcohol, 02/19/2025: 3 Urinalysis, 02/19, : WBC: 2, urine leukocyte esterase WBC/HB/PLT/MCV, 02/20/2025: 21.9/10.9/398/83.1, 03/13/2025: 11.7/6.5/424/85.4 PT/INR/PTT, 03/13/2025: 10.6/1/38.6 K, 02/19/2025: 1.7, 02/20/2025: 2.1 BUN/CR, 02/20/2025: 33/2.03, 03/13/2025: 51.93 HGB A1c, 06/03/2024: 13.1 Liver function tests, 02/20/2025: Unremarkable TG/HDL/LDL/HDL, 04/11/2024: 180/238/164/43 MAGALIS, 02/21/2025: 1. Technically good study. Sinus rhythm. 2. Left atrial enlargement. 3. Number Valves appear to be structurally normal. 4. Ventricular systolic function is preserved at 60% with normal RV function. 5. Doppler reveals mild TR. No significant mitral or aortic insufficiency. No atrial septal or ventricular septal defects 6. No masses or vegetations discernible. 7. The atrial appendage looks clean, no masses. No atrial or ventricular septal defects as noted. No abnormal shunting. Bubble study was negative 8. The valves appear to be structurally normal. No vegetations or signs of emboli present. Carotid Doppler, 02/20/2025: No hemodynamically significant stenosis noted in the right carotid system. No hemodynamically significant stenosis noted in the left carotid system. Chest X-ray, 03/19/25: 1. Endotracheal tube terminates 4cm from caleb. Other lines and tubes are unchanged in position. 2. Bilateral airspace disease similar to prior study. CT head, : Small age-indeterminate infarct extending from the right jorge radiata into the right basal ganglia. Further evaluation with MRI brain with diffusion-weighted imaging is recommended. CT head, , No acute intracranial abnormality. Multiple subacute bilateral lacunar infarcts as seen on prior MRI. MRI head, 02/19/2025: 1. There are multiple small foci of acute to subacute infarct in the right jorge radiata and right basal ganglia. There are also multiple small acute to subacute infarcts in the left anteromedial frontal lobe and in the left jorge radiata and left basal ganglia. There is no evidence of acute hemorrhage MR head, 03/21/2025: 1. Multiple foci of restricted diffusion involving the left corpus callosum, bilateral basal ganglia and right jorge radiata. The largest area involves the left splenium of the corpus callosum. These likely represent acute to subacute infarcts. There is no evidence of acute hemorrhage. 2. Moderate amount of fluid in the bilateral mastoid air cells MRI left foot, 02/22/25: Moderate dorsal subcutaneous edema. No evidence of osteomyelitis. No drainable fluid collection noted. Moderate myositis. vital signs Vital Sign Date Time Temp Pulse Resp B/P (MAP) Pulse Ox O2 Delivery O2 Flow Rate FiO2 03/26/25 10:45 82 17 166/83 (110) 98 03/26/25 10:00 Mechanical Ventilator+ 30 30 03/26/25 08:00 97.2 97.2 Total Intake and Output 03/25/25 03/25/25 03/26/25 15:00 23:00 07:00 Intake Total 322.066 ml 1235.888 ml 609.656 ml Output Total 400 ml 850 ml Balance 322.066 ml 835.888 ml -240.344 ml medications Current Medications Medications Dose Ordered Sig/John Route Start Time Stop Time Status Last Admin Dose Admin Acetaminophen 650 mg Q6HP PRN PO 02/19/25 13:45 03/09/25 21:36 650 MG Diagnostic Test (Pha) 1 strip ACHS 02/19/25 17:00 03/26/25 06:35 1 STRIP Dextrose 50 ml UD PRN IV 02/19/25 15:45 03/14/25 21:04 50 ML Potassium Chloride 100 ml @ 50 mls/hr Q2H IV 02/19/25 23:15 02/20/25 05:14 Cancel Potassium Chloride 100 ml @ 50 mls/hr Q2H IV 02/20/25 07:15 02/20/25 11:14 UNV Insulin Human Regular ACHS SC 02/28/25 17:00 03/26/25 06:36 2 UNITS Gabapentin 100 mg TID PO 03/02/25 14:00 03/26/25 05:52 100 MG Calcium Acetate 1,334 mg TIDWMEALS PO 03/04/25 12:00 03/26/25 08:20 1,334 MG Ergocalciferol 50,000 unit Q7D PO 03/04/25 11:45 03/25/25 15:05 50,000 UNIT Zirconium Oxide 10 gm TID PO 03/07/25 14:00 Cancel Sodium Bicarbonate 50 ml/ Sodium Chloride 1,050 ml @ 100 mls/hr [id number] IV 03/07/25 11:45 Cancel Fentanyl Citrate 250 ml @ 2.5 mls/hr Q24H IV 03/13/25 02:30 03/26/25 04:14 10 MLS/HR Ceftriaxone Sodium 50 ml @ 100 mls/hr Q24H IV 03/13/25 04:00 03/26/25 04:16 100 MLS/HR Clindamycin Phosphate 50 ml @ 50 mls/hr Q8HR IV 03/13/25 06:00 03/26/25 05:52 50 MLS/HR Pantoprazole Sodium 40 mg BID IV 03/13/25 10:00 03/26/25 09:40 40 MG Albuterol 2.5 mg Q6HR NEB 03/13/25 12:00 03/26/25 06:20 2.5 MG Ipratropium [place] 0.5 mg Q6HR NEB 03/13/25 12:00 03/26/25 06:20 0.5 MG Saccharomyces Boulardii 250 mg DAILY PO 03/14/25 10:00 03/26/25 09:40 250 MG Enteral Nutritional Formula 1,000 ml 30ML/HR GT 03/14/25 08:45 03/24/25 06:05 1,000 ML Metoprolol Tartrate 25 mg BID GT 03/21/25 10:00 03/26/25 09:40 25 MG Propofol 100 ml @ 2.277 mls/ hr Q24H IV 03/21/25 10:15 03/26/25 04:14 6.831 MLS/HR Duloxetine HCl 30 mg DAILY PO 03/22/25 10:00 03/24/25 10:06 30 MG Lamotrigine 25 mg DAILY PO 03/22/25 10:00 03/26/25 09:40 25 MG Olanzapine 5 mg DAILY PO 03/22/25 10:00 03/26/25 09:39 5 MG Atorvastatin Calcium 80 mg HS PO 03/24/25 22:00 03/25/25 22:08 80 MG Enoxaparin Sodium 40 mg DAILY SC 03/25/25 10:00 03/26/25 09:40 40 MG Aspirin 81 mg DAILY NG 03/25/25 10:00 03/26/25 09:39 81 MG objective The patient is well-nourished and well-developed with no distress. The patient is intubated MUSCULOSKELETAL EXAM: Status post right BKA MENTAL STATUS: Subjective CRANIAL NERVES: Pupils are equal, round and reactive, small. There are corneal reflexes and doll's eyes phenomenon. No signs of facial weakness. There are no gagging or coughing reflexes SENSATION: responses to pain stimuli. MOTOR: Normal tone in the upper and lower extremity. Normal muscle bulk. No fasciculations. She moves her arms. REFLEXES: Deep tendon reflexes are symmetrical. No pathological reflexes. CEREBELLAR/COORDINATION: Deferred GAIT/STATION: deferred. laboratory and microbiology Laboratory Tests 03/26/25 04:42 Test 03/26/25 04:42 Range/Units Serum Glucose 133 H 74-106 mg/dL Problem List Acute respiratory failure Excessive nasal bleeding Come Metabolic encephalopathy Hypoxic encephalopathy Toxic encephalopathy General weakness Multiple acute/subacute strokes (MRI head: 02/19/2025, 03/21/2025) Status post right BKA Depression Assessment/Plan Monitoring Supportive treatment MAGALIS ICU Stabilize vitals Respiratory support/vent management Oxygen Antibiotics Aspirin 81 mg daily Lipitor 80mg Qd Cymbalta 30 mg b.i.d. DVT prophylaxis/Lovenox Quit tobacco smoking completely Wean off sedation as tolerated Consider CPAP trial and extubation More recommendation per clinical course This medical document was created using an electronic medical record system with Stribe dictation system. Although this document has been carefully reviewed, there may still be some phonetic and typographical errors. These areas are purely typographical due to imperfections of the software programs, and do not reflect any compromise in the patient's medical care. Prognosis guarded Dietary Evaluation Review Comments: 1) Esau 1 pk BID 2) Refer Filament Cutter on DC 3) Continue current plan of care Expected Outcomes/Goals: Pt will meet >75% estimated needs Fu 3-5 days Plan discussed with: Other NEELA RUEDA MD Mar 26, 2025 11:09
--- NOTE | 2025-03-26 12:07 | DVHPN2 ---
Progress Note Date Seen: Mar 26, 2025 Resident Creating Document: AUGIE LYONS RESIDENT Medical Necessity Reason Pt with a Central, PICC or Fol: Yes The following are medically ne: Acosta Catheter Reason for acosta catheter: Strict I&O Subjective Review of Systems Patient recently extubated, presenting with coarse breath sounds and possible right lower lobe infiltrate, potentially due to aspiration. Chest x-ray showed bibasilar atelectasis or pneumonia. Objective vital signs Vital Sign Date Time Temp Pulse Resp B/P (MAP) Pulse Ox O2 Delivery O2 Flow Rate FiO2 03/26/25 10:45 82 17 166/83 (110) 98 03/26/25 10:37 10.0 03/26/25 10:00 Mechanical Ventilator+ 03/26/25 08:00 97.2 97.2 Total Intake and Output 03/25/25 03/25/25 03/26/25 15:00 23:00 07:00 Intake Total 322.066 ml 1235.888 ml 609.656 ml Output Total 400 ml 850 ml Balance 322.066 ml 835.888 ml -240.344 ml medications Current Medications Medications Dose Ordered Sig/John Route Start Time Stop Time Status Last Admin Dose Admin Acetaminophen 650 mg Q6HP PRN PO 02/19/25 13:45 03/09/25 21:36 650 MG Diagnostic Test (Pha) 1 strip ACHS 02/19/25 17:00 03/26/25 11:32 1 STRIP Dextrose 50 ml UD PRN IV 02/19/25 15:45 03/14/25 21:04 50 ML Potassium Chloride 100 ml @ 50 mls/hr Q2H IV 02/19/25 23:15 02/20/25 05:14 Cancel Potassium Chloride 100 ml @ 50 mls/hr Q2H IV 02/20/25 07:15 02/20/25 11:14 UNV Insulin Human Regular ACHS SC 02/28/25 17:00 03/26/25 11:33 2 UNITS Gabapentin 100 mg TID PO 03/02/25 14:00 03/26/25 05:52 100 MG Calcium Acetate 1,334 mg TIDWMEALS PO 03/04/25 12:00 03/26/25 08:20 1,334 MG Ergocalciferol 50,000 unit Q7D PO 03/04/25 11:45 03/25/25 15:05 50,000 UNIT Zirconium Oxide 10 gm TID PO 03/07/25 14:00 Cancel Sodium Bicarbonate 50 ml/ Sodium Chloride 1,050 ml @ 100 mls/hr [id number] IV 03/07/25 11:45 Cancel Fentanyl Citrate 250 ml @ 2.5 mls/hr Q24H IV 03/13/25 02:30 03/26/25 04:14 10 MLS/HR Ceftriaxone Sodium 50 ml @ 100 mls/hr Q24H IV 03/13/25 04:00 03/26/25 04:16 100 MLS/HR Clindamycin Phosphate 50 ml @ 50 mls/hr Q8HR IV 03/13/25 06:00 03/26/25 05:52 50 MLS/HR Pantoprazole Sodium 40 mg BID IV 03/13/25 10:00 03/26/25 09:40 40 MG Albuterol 2.5 mg Q6HR NEB 03/13/25 12:00 03/26/25 06:20 2.5 MG Ipratropium [place] 0.5 mg Q6HR NEB 03/13/25 12:00 03/26/25 06:20 0.5 MG Saccharomyces Boulardii 250 mg DAILY PO 03/14/25 10:00 03/26/25 09:40 250 MG Enteral Nutritional Formula 1,000 ml 30ML/HR GT 03/14/25 08:45 03/24/25 06:05 1,000 ML Metoprolol Tartrate 25 mg BID GT 03/21/25 10:00 03/26/25 09:40 25 MG Propofol 100 ml @ 2.277 mls/ hr Q24H IV 03/21/25 10:15 03/26/25 04:14 6.831 MLS/HR Duloxetine HCl 30 mg DAILY PO 03/22/25 10:00 03/24/25 10:06 30 MG Lamotrigine 25 mg DAILY PO 03/22/25 10:00 03/26/25 09:40 25 MG Olanzapine 5 mg DAILY PO 03/22/25 10:00 03/26/25 09:39 5 MG Atorvastatin Calcium 80 mg HS PO 03/24/25 22:00 03/25/25 22:08 80 MG Enoxaparin Sodium 40 mg DAILY SC 03/25/25 10:00 03/26/25 09:40 40 MG Aspirin 81 mg DAILY NG 03/25/25 10:00 03/26/25 09:39 81 MG Examination Following commands alert PERRLA MMM coarse rhonchi breath sounds s1 s2 RRR abdomen soft R BKA laboratory and microbiology Laboratory Tests 03/26/25 04:42 Test 03/26/25 04:42 Range/Units Serum Glucose 133 H 74-106 mg/dL Microbiology Date/Time Source Procedure Growth Status 03/13/25 05:10 Blood Blood Culture - Final NO GROWTH AFTER 5 DAYS OF INCUBATION. Complete 03/13/25 03:17 Sputum Gram Stain - Final Complete 03/13/25 03:17 Respiratory Culture - Final Presumptive Dionna albicans Complete 03/06/25 14:37 Knee Left Gram Stain - Final Complete 03/06/25 14:37 Knee Left Anaerobic Culture - Final Complete 03/06/25 14:37 Aerobic Culture - Final Staphylococcus aureus Complete 03/04/25 13:29 Aspirate Gram Stain - Final Complete 03/04/25 13:29 Body Fluid Culture - Final Staphylococcus aureus Complete 02/19/25 17:27 Urine - Acosta Port Urine Culture - Final Complete Problem List/Assessment/Plan Problem List/Assessment/Plan Assessment Acute hypoxemic respiratory failure Altered mental status Sepsis Multiple acute/subacute strokes. Acute kidney injury. Insulin-dependent diabetes mellitus. Status post right BKA. Dyslipidemia. Polysubstance use disorder. Left lower extremity cellulitis. Plan: - Continue to monitor chest imaging for further improvement - Assess for any signs or symptoms of aspiration pneumonia - Consider respiratory therapy interventions as needed ABG reviewed MRI new strokes Continue antibiotics F/u cultures Bronchodilators Monitor renal function Monitor electrolytes Supplement as needed Pressors as needed for hemodynamic support To maintain a mean arterial pressure of 65 mmHg continue psychiatric meds Case discussed with Dr. Ndiaye Plan discussed with: Patient, Other (RN) Dietary Evaluation Review Comments: 1) Esau 1 pk BID 2) Refer Metal Can Inspector on DC 3) Continue current plan of care Expected Outcomes/Goals: Pt will meet >75% estimated needs Fu 3-5 days Date of Service: Mar 26, 2025 Billing Provider: ARUNA NDIAYE MD Common Visit Codes: NOT BILLABLE AUGIE LYONS RESIDENT Mar 26, 2025 12:07 ARUNA NDIAYE MD March 29, 2025 13:57
--- NOTE | 2025-03-26 14:03 | DVHPN2 ---
Assessment/Plan Assessment/Plan ICU note covering new MRI with new stroke compared to prior. restart asa lipitor. although possible cardioembolic, patient was in NSR, last myles with no PFO in bubble. POCUS done, no IJ, subclavian or axilary thrombosis on b/l UE. hyperechic structure seen in [place], likely reverberation from LVOT (positional, doesnt nece ssarily looks like mass), bubble negative. low suspicion of CSVT. swtiching acosta, TLC. seen today during rounds, following commands, parameter acceptable, extubated to cool mist. unable to swallow, remain NPO. physical exam Following commands alert PERRLA MMM coarse rhonchi breath sounds s1 s2 RRR abdomen soft R BKA labs ekg imaging reviewed assessment and plan Acute hypoxic/metabolic/toxic encephalopathy Acute hypoxic respiratory failure Severe sepsis with leukocytosis and fever due to soft tissue infection/cellulitis and suspected left knee infection Multiple acute/subacute strokes Electrolytes imbalance with hypokalemia and hypomagnesemia TATIANNA; most likely vasomotor nephropathy in the setting of sepsis; avoid nephrotoxic agents; nephrology is following; morning labs pending; continue monitoring Uncontrolled diabetes mellitus type 2 with hyperglycemia PAD status post right BKA Multiple left foot diabetic ulcers Polysubstance (marijuana and tobacco) use disorder Obesity enalaprilat 6.25 q8 for htn c/w oral antihtn asa rectal transfuse to keep hb >7 deline MYLES for LAITH,LA,LV thrombus or veg c/w rest of management diet tf dvt ppx lovenox gi ppx protonix full code prognosis poor condition critical 50 minutes critical care time spent Plan discussed with: Patient My Orders Orders - JENNIFER HAWTHORNE MD Procedure Category Date Status Time Chest Portable XY 03/25/25 Resulted 18:35 Abg W/ Co-Ox RT 03/26/25 Logged 07:00 Extubate HAYDER 03/26/25 In Process 10:37 Abg W/ Co-Ox RT 03/26/25 Logged 10:00 Extubate HAYDER 03/26/25 In Process 11:[address] 03/26/25 Logged 11:50 Npo (Nothing By DIET 03/26/25 Transmitted Mouth) Diet Dinner Date of Service: Mar 26, 2025 Billing Provider: JENNIFER HAWTHORNE MD Common Visit Codes: [id number] CARE 30-74 MIN JENNIFER HAWTHORNE MD Mar 26, 2025 14:03
[2025-03-26] MEDS: FUROSEMIDE 100 MG/10ML VIAL IV ONE (15:18)
[2025-03-26] MEDS: ENALAPRILAT 1.25 MG/ML-1ML VIAL IV ONE (16:15)
[2025-03-26] MEDS: SUCCINYLCHOLINE CHLORIDE 20 MG/ML 10ML VIAL IV ONE ×2 (17:54→18:23)
[2025-03-26] MEDS: ETOMIDATE (2MG/ML) 20ML VIAL IV ONE ×2 (17:54→18:23)
[2025-03-26] MEDS: ACETYLCYSTEINE 10 %(100MG/ML) SOL 4ML NEB SCH (18:12)
--- NOTE | 2025-03-26 18:22 | DVH ---
CHEST RADIOGRAPH Indication: S/P INTUBATION Technique: Single frontal view of the chest was obtained Comparison: XY CHEST PORTABLE on DOS: 03/26/25, XY CHEST PORTABLE on DOS: 03/25/25, XY CHEST PORTABLE o n DOS: 03/24/25 FINDINGS: Lines and Tubes: Endotracheal tube terminates about 3.2 cm above the caleb. Enteric tube is in satis factory position. Partially visualized left-sided approach central venous catheter terminating over t he superior cavoatrial junction. Lungs: Diffuse interstitial prominence with indistinctness of the right hemidiaphragm. No pneumothorax. Cardiomediastinal contours: Heart size is within normal limits with mild atherosclerotic calcificatio n and uncoiling of the aorta. Bones: No acute osseous abnormality. Large gastric bubble is noted over the left upper the midabdomen . IMPRESSION: Cardiomegaly with pulmonary vascular congestion. Possible trace right-sided pleural effusion. Endotracheal tube, enteric tube and partially visualized left-sided central venous catheter are in sa tisfactory position.
[2025-03-26 19:01] LABS: Base Excess -1.6 mmol/L (-2.0-3.0)
[2025-03-26] MEDS: CEFEPIME 2GM/50ML NS 50 ML IV SCH (22:14)
[2025-03-26] MEDS: POTASSIUM CHL 20MEQ/50ML 50 ML IV SCH (22:15)
--- NOTE | 2025-03-26 22:41 | DVHPN2 ---
Progress Note - Dictate Date Seen: Mar 26, 2025 Medical Necessity Reason Pt with a Central, PICC or Fol: Yes The following are medically ne: Acosta Catheter Reason for acosta catheter: Strict I&O Subjective Patient was seen and evaluated in follow up in the ICU. Patient was successfully extubated earlier this morning. This evening, patient was at high risk for aspiration and was reintubated. WBC 12.4, HGB 8, HCT 24.7, BUN 29, BAR TACKER 1.38. Chest x-ray showed bibasilar atelectasis or pneumonia. vital signs Vital Sign Date Time Temp Pulse Resp B/P (MAP) Pulse Ox O2 Delivery O2 Flow Rate FiO2 03/26/25 13:00 84 21 161/86 (111) 95 03/26/25 12:00 Cool Aerosol 10 40 40 03/26/25 08:00 97.2 97.2 Total Intake and Output 03/25/25 03/25/25 03/26/25 15:00 23:00 07:00 Intake Total 322.066 ml 1235.888 ml 609.656 ml Output Total 400 ml 850 ml Balance 322.066 ml 835.888 ml -240.344 ml medications Current Medications Medications Dose Ordered Sig/John Route Start Time Stop Time Status Last Admin Dose Admin Acetaminophen 650 mg Q6HP PRN PO 02/19/25 13:45 03/09/25 21:36 650 MG Diagnostic Test (Pha) 1 strip ACHS 02/19/25 17:00 03/26/25 11:32 1 STRIP Dextrose 50 ml UD PRN IV 02/19/25 15:45 03/14/25 21:04 50 ML Potassium Chloride 100 ml @ 50 mls/hr Q2H IV 02/19/25 23:15 02/20/25 05:14 Cancel Potassium Chloride 100 ml @ 50 mls/hr Q2H IV 02/20/25 07:15 02/20/25 11:14 UNV Insulin Human Regular ACHS SC 02/28/25 17:00 03/26/25 11:33 2 UNITS Gabapentin 100 mg TID PO 03/02/25 14:00 03/26/25 05:52 100 MG Calcium Acetate 1,334 mg TIDWMEALS PO 03/04/25 12:00 03/26/25 08:20 1,334 MG Ergocalciferol 50,000 unit Q7D PO 03/04/25 11:45 03/25/25 15:05 50,000 UNIT Zirconium Oxide 10 gm TID PO 03/07/25 14:00 Cancel Sodium Bicarbonate 50 ml/ Sodium Chloride 1,050 ml @ 100 mls/hr [id number] IV 03/07/25 11:45 Cancel Fentanyl Citrate 250 ml @ 2.5 mls/hr Q24H IV 03/13/25 02:30 03/26/25 04:14 10 MLS/HR Ceftriaxone Sodium 50 ml @ 100 mls/hr Q24H IV 03/13/25 04:00 03/26/25 04:16 100 MLS/HR Clindamycin Phosphate 50 ml @ 50 mls/hr Q8HR IV 03/13/25 06:00 03/26/25 05:52 50 MLS/HR Pantoprazole Sodium 40 mg BID IV 03/13/25 10:00 03/26/25 09:40 40 MG Albuterol 2.5 mg Q6HR NEB 03/13/25 12:00 03/26/25 12:16 2.5 MG Ipratropium [place] 0.5 mg Q6HR NEB 03/13/25 12:00 03/26/25 12:16 0.5 MG Saccharomyces Boulardii 250 mg DAILY PO 03/14/25 10:00 03/26/25 09:40 250 MG Enteral Nutritional Formula 1,000 ml 30ML/HR GT 03/14/25 08:45 03/24/25 06:05 1,000 ML Metoprolol Tartrate 25 mg BID GT 03/21/25 10:00 03/26/25 09:40 25 MG Propofol 100 ml @ 2.277 mls/ hr Q24H IV 03/21/25 10:15 03/26/25 04:14 6.831 MLS/HR Duloxetine HCl 30 mg DAILY PO 03/22/25 10:00 03/24/25 10:06 30 MG Lamotrigine 25 mg DAILY PO 03/22/25 10:00 03/26/25 09:40 25 MG Olanzapine 5 mg DAILY PO 03/22/25 10:00 03/26/25 09:39 5 MG Atorvastatin Calcium 80 mg HS PO 03/24/25 22:00 4/29/25 22:08 80 MG Enoxaparin Sodium 40 mg DAILY SC 03/25/25 10:00 03/26/25 09:40 40 MG Aspirin 81 mg DAILY NG 03/25/25 10:00 03/26/25 09:39 81 MG objective GENERAL: Intubated on ventilator. EYES: PERRL, EOMI. Anicteric. HENT: Moist mucous membranes. LUNGS: Decreased breath sounds. CARDIOVASCULAR: Regular rate and rhythm. ABDOMEN: Soft, non-tender and non-distended. EXTREMITIES: No edema. SKIN: Warm, dry. laboratory and microbiology Laboratory Tests 03/26/25 04:42 Test 03/26/25 04:42 Range/Units Serum Glucose 133 H 74-106 mg/dL Problem List Multiple acute/subacute strokes. Hypokalemia. Acute kidney injury. Hypertension, newly diagnosed. Insulin-dependent diabetes mellitus. Status post right BKA. Dyslipidemia. Polysubstance use disorder. Left lower extremity cellulitis. Peripheral vascular disease status post right obule-run-rksh amputation 6 months ago. Sepsis. Diabetic neuropathy. Assessment/Plan Continued all current supportive medical care. [place] for pain management. IV antibiotics as ordered. DVT and GI prophylactics. IV Hydralazine for SBP >160. Vasopressors for hemodynamic support. Additional plan as per the hospital course. Critical care time of 45 minutes provided to include time spent evaluation of patient at bedside, when appropriate patient/family education for diagnosis, treatment plan, review of pertinent medical information and discussion of care with specialty providers and PCP. Mechanical ventilator parameters, treatment and adjustments have personally been reviewed by me and treatment plan by highway administrative engineer has also been reviewed. Dietary Evaluation Review Comments: 1) Esau 1 pk BID 2) Refer Chef German on DC 3) Continue current plan of care Expected Outcomes/Goals: Pt will meet >75% estimated needs Fu 3-5 days Plan discussed with: Other YANIRA WINN MD Mar 26, 2025 13:13
[2025-03-27] VITALS (109 sets, daily range): BP systolic 89–154; BP diastolic 48–81; PULSE 66–96; RESP 11–28; TEMP 96.3–99.5; O2SAT 97–100
[2025-03-27 05:17] LABS: Basophils # (auto) 0.1 10 ^3/uL (0-0.2); Eosinophils # (auto) 0.4 10 ^3/uL (0-0.8); Hemoglobin 7.9 g/dL (12.2-16.2); Neutrophils % (auto) 78.8 % (37.0-80.0); Red Cell Distribution Width 16.5 % (11.8-14.3)
[2025-03-27 05:20] LABS: Basophils % (auto) 1.1 % (0.0-2.0); Eosinophils % (auto) 3.2 % (0.0-7.0); Hematocrit 24.3 % (36.0-46.0); Lymphocytes # (auto) 1.6 10 ^3/uL (0.4-5.4); Lymphocytes % (auto) 11.9 % (10.0-50.0); Mean Corpuscular Hemoglobin 27.3 pg (28.0-32.0); Mean Corpuscular Hgb Conc. 32.6 g/dL (32.0-36.0); Mean Corpuscular Volume 83.5 fL (80.0-100.0); Monocytes # (auto) 0.7 10 ^3/uL (0-1.3); Neutrophils # (auto) 10.3 10 ^3/uL (1.6-8.6); Platelet Count (auto) 542 10^3/uL (140-450); Red Blood Cells 2.91 10^6/uL (4.0-5.20); White Blood Cell 13.1 10^3/uL (4.4-10.8)
[2025-03-27 05:30] LABS: Potassium 3.6 mmol/L (3.5-5.1); Sodium 143 mmol/L (136-145)
[2025-03-27 05:31] LABS: Anion Gap 8 (5-15); Calcium 8.9 mg/dL (8.7-10.4); Carbon Dioxide 24 mmol/L (20-31)
[2025-03-27 05:36] LABS: BUN/Creatinine Ratio 20.9 (10.0-20.0)
[2025-03-27 05:37] LABS: Magnesium 1.7 mg/dL (1.6-2.6)
[2025-03-27 05:38] LABS: Phosphorus 4.9 mg/dL (2.4-5.1)
[2025-03-27 05:40] LABS: Blood Urea Nitrogen 29 mg/dL (9-23); Chloride 111 mmol/L (98-107); Glucose 108 mg/dL (74-106)
--- NOTE | 2025-03-27 06:34 | DVH ---
EXAM: XR Chest, 1 View CLINICAL INDICATION: ET Tube Placement Confirmation TECHNIQUE: Frontal view of the chest. COMPARISON: XY CHEST PORTABLE on DOS: 03/26/25, XY CHEST PORTABLE on DOS: 03/26/25, XY CHEST PORTABLE on DOS: 03/25/25, XY CHEST PORTABLE on DOS: 03/24/25, XY CHEST XRAY 1 VIEW on DOS: 03/24/25 FINDINGS: LUNGS AND PLEURAL SPACES: Bibasilar atelectasis or pneumonia. No pneumothorax. HEART: Unremarkable. No cardiomegaly. MEDIASTINUM: Unremarkable. Normal mediastinal contour. BONES/JOINTS: Unremarkable. No acute fracture. TUBES, LINES AND DEVICES: The endotracheal tube (ETT) is in satisfactory position. Enteric tube ti p in the stomach. OTHER FINDINGS: . . IMPRESSION: Bibasilar atelectasis or pneumonia.
[2025-03-27 07:26] LABS: Base Excess -1.4 mmol/L (-2.0-3.0)
[2025-03-27] MEDS: MIDAZOLAM DRIP 50 mg/50mL 50 ML IV SCH (09:41)
--- NOTE | 2025-03-27 11:55 | DVHPN2 ---
Progress Note Date Seen: March 27, 2025 Resident Creating Document: AUGIE LYONS RESIDENT Medical Necessity Reason Pt with a Central, PICC or Fol: Yes The following are medically ne: Acosta Catheter Reason for acosta catheter: Strict I&O Subjective Review of Systems Patient was reintubated yesterday weaning due to very weak cough and desaturating to 70%. presenting with coarse breath sounds and possible right lower lobe infiltrate, potentially due to aspiration. We will schedule for bronchoscopy tomorrow. Chest x-ray showed bibasilar atelectasis or pneumonia. Objective vital signs Vital Sign Date Time Temp Pulse Resp B/P (MAP) Pulse Ox O2 Delivery O2 Flow Rate FiO2 03/27/25 11:42 76 20 121/63 (82) 100 30 03/27/25 10:00 Mechanical Ventilator+ 03/27/25 08:00 99.3 99.3 03/26/25 16:00 10 Total Intake and Output 03/26/25 03/26/25 03/27/25 14:59 22:59 06:59 Intake Total 59.032 ml 527.620 ml 645.458 ml Output Total 1000 ml 950 ml Balance 59.032 ml -472.380 ml -304.542 ml medications Current Medications Medications Dose Ordered Sig/John Route Start Time Stop Time Status Last Admin Dose Admin Acetaminophen 650 mg Q6HP PRN PO 02/19/25 13:45 03/09/25 21:36 650 MG Diagnostic Test (Pha) 1 strip ACHS 02/19/25 17:00 03/27/25 11:29 1 STRIP Dextrose 50 ml UD PRN IV 02/19/25 15:45 03/14/25 21:04 50 ML Potassium Chloride 100 ml @ 50 mls/hr Q2H IV 02/19/25 23:15 02/20/25 05:14 Cancel Potassium Chloride 100 ml @ 50 mls/hr Q2H IV 02/20/25 07:15 02/20/25 11:14 UNV Insulin Human Regular ACHS SC 02/28/25 17:00 03/27/25 11:27 2 UNITS Gabapentin 100 mg TID PO 03/02/25 14:00 03/27/25 05:38 100 MG Calcium Acetate 1,334 mg TIDWMEALS PO 03/04/25 12:00 03/27/25 11:30 1,334 MG Ergocalciferol 50,000 unit Q7D PO 03/04/25 11:45 03/25/25 15:05 50,000 UNIT Zirconium Oxide 10 gm TID PO 03/07/25 14:00 Cancel Sodium Bicarbonate 50 ml/ Sodium Chloride 1,050 ml @ 100 mls/hr [id number] IV 03/07/25 11:45 Cancel Fentanyl Citrate 250 ml @ 2.5 mls/hr Q24H IV 03/13/25 02:30 03/27/25 05:52 15 MLS/HR Clindamycin Phosphate 50 ml @ 50 mls/hr Q8HR IV 03/13/25 06:00 03/27/25 05:39 50 MLS/HR Pantoprazole Sodium 40 mg BID IV 03/13/25 10:00 03/27/25 09:40 40 MG Albuterol 2.5 mg Q6HR NEB 03/13/25 12:00 03/27/25 11:42 2.5 MG Ipratropium [place] 0.5 mg Q6HR NEB 03/13/25 12:00 03/27/25 11:42 0.5 MG Saccharomyces Boulardii 250 mg DAILY PO 03/14/25 10:00 03/27/25 09:41 250 MG Enteral Nutritional Formula 1,000 ml 30ML/HR GT 03/14/25 08:45 03/26/25 22:14 1,000 ML Metoprolol Tartrate 25 mg BID GT 03/21/25 10:00 03/27/25 09:41 25 MG Propofol 100 ml @ 2.277 mls/ hr Q24H IV 03/21/25 10:15 03/27/25 05:39 18.216 MLS/HR Duloxetine HCl 30 mg DAILY PO 03/22/25 10:00 03/24/25 10:06 30 MG Lamotrigine 25 mg DAILY PO 03/22/25 10:00 03/27/25 09:41 25 MG Olanzapine 5 mg DAILY PO 03/22/25 10:00 03/27/25 09:41 5 MG Atorvastatin Calcium 80 mg HS PO 03/24/25 22:00 03/26/25 22:14 80 MG Enoxaparin Sodium 40 mg DAILY SC 03/25/25 10:00 03/27/25 09:40 40 MG Aspirin 81 mg DAILY 03/25/25 10:00 03/27/25 09:42 81 MG Nicardipine HCl 250 ml @ 50 mls/hr Q5H IV 03/26/25 15:15 03/26/25 15:26 50 MLS/HR Acetylcysteine 100 mg Q6HR NEB 03/26/25 18:00 03/27/25 11:42 100 MG Cefepime HCl 50 ml @ 12.5 mls/hr Q12HR IV 03/26/25 22:00 03/27/25 09:41 12.5 MLS/HR Midazolam HCl 50 ml @ 1 mls/hr Q24H IV 03/27/25 09:15 03/27/25 09:41 1 MLS/HR Examination Patient is intubated and sedated PERRLA coarse rhonchi breath sounds s1 s2 RRR abdomen soft R BKA laboratory and microbiology Laboratory Tests 03/27/25 04:45 Test 03/27/25 04:45 Range/Units Serum Glucose 108 H 74-106 mg/dL Microbiology Date/Time Source Procedure Growth Status 03/13/25 05:10 Blood Blood Culture - Final NO GROWTH AFTER 5 DAYS OF INCUBATION. Complete 03/13/25 03:17 Sputum Gram Stain - Final Complete 03/13/25 03:17 Respiratory Culture - Final Presumptive Dionna albicans Complete 03/06/25 14:37 Knee Left Gram Stain - Final Complete 03/06/25 14:37 Knee Left Anaerobic Culture - Final Complete 03/06/25 14:37 Aerobic Culture - Final Staphylococcus aureus Complete 03/04/25 13:29 Aspirate Gram Stain - Final Complete 03/04/25 13:29 Body Fluid Culture - Final Staphylococcus aureus Complete 02/19/25 17:27 Urine - [place] Urine Culture - Final Complete Problem List/Assessment/Plan Problem List/Assessment/Plan Assessment Acute hypoxemic respiratory failure Altered mental status Sepsis Multiple acute/subacute strokes. Acute kidney injury. Insulin-dependent diabetes mellitus. Status post right BKA. Dyslipidemia. Polysubstance use disorder. Left lower extremity cellulitis. Plan: Patient was reintubated and sedated - Assess for any signs or symptoms of aspiration pneumonia - Consider respiratory therapy interventions as needed ABG reviewed MRI new strokes Continue antibiotics F/u cultures Bronchodilators Monitor renal function Monitor electrolytes Supplement as needed Pressors as needed for hemodynamic support To maintain a mean arterial pressure of 65 mmHg continue psychiatric meds We will schedule for bronchoscopy tomorrow. Patient is prognosis is questionable. Case discussed with Dr. Ndiaye Plan discussed with: Other (RN) Dietary Evaluation Review Comments: 1) Esau 1 pk BID 2) Refer Tile Trimmer on DC 3) Continue current plan of care Expected Outcomes/Goals: Pt will meet >75% estimated needs Fu 3-5 days Date of Service: March 27, 2025 Billing Provider: ARUNA NDIAYE MD Common Visit Codes: NOT BILLABLE AUGIE LYONS RESIDENT March 27, 2025 11:55 ARUNA NDIAYE MD March 29, 2025 13:57
--- NOTE | 2025-03-27 13:25 | DVHPN2 ---
Assessment/Plan Assessment/Plan ICU note covering new MRI with new stroke compared to prior. restart asa lipitor. although possible cardioembolic, patient was in NSR, last myles with no PFO in bubble. POCUS done, no IJ, subclavian or axilary thrombosis on b/l UE. hyperechic structure seen in [place], likely reverberation from LVOT (positional, doesnt nece ssarily looks like mass), bubble negative. low suspicion of CSVT. swtiching acosta, TLC. seen today during rounds, reintubated. on minimal vent setting. for bronch tomorrow. discussed with POC, surg consult for trach and peg. physical exam Following commands alert PERRLA MMM coarse rhonchi breath sounds s1 s2 RRR abdomen soft R BKA labs ekg imaging reviewed assessment and plan Acute hypoxic/metabolic/toxic encephalopathy Acute hypoxic respiratory failure Severe sepsis with leukocytosis and fever due to soft tissue infection/cellulitis and suspected left knee infection Multiple acute/subacute strokes Electrolytes imbalance with hypokalemia and hypomagnesemia TATIANNA; most likely vasomotor nephropathy in the setting of sepsis; avoid nephrotoxic agents; nephrology is following; morning labs pending; continue monitoring Uncontrolled diabetes mellitus type 2 with hyperglycemia PAD status post right BKA Multiple left foot diabetic ulcers Polysubstance (marijuana and tobacco) use disorder Obesity enalaprilat 6.25 q8 for htn c/w oral antihtn asa rectal transfuse to keep hb >7 deline MYLES for LAITH,LA,LV thrombus or veg c/w rest of management diet tf dvt ppx lovenox gi ppx protonix full code prognosis poor condition critical 55 minutes critical care time spent Plan discussed with: Other My Orders Orders - JENNIFER HAWTHORNE MD Procedure Category Date Status Time Npo (Nothing By DIET 03/26/25 Transmitted Mouth) Diet Dinner Place Ng ORDERS 03/26/25 Transmitted 14:04 BIPAP RT 03/26/25 Logged 14:42 Abg W/ Co-Ox RT 03/26/25 Logged 15:30 Nicardipine PHA 03/26/25 In Process 25mg/250ml Bag Kit 15:15 Acetylcysteine PHA 03/26/25 In Process Inhalation 10% 18:00 Chest Percussion Tx RT 03/26/25 Logged Initi 18:00 Nasal Tracheal Suction RT 03/26/25 Logged 18:00 Cefepime 2gm/50ml Ns PHA 03/26/25 In Process (Maxipime 2gm/50ml) 22:00 Chest Xray 1 View XY 03/27/25 Resulted 10:00 Midazolam Drip 50 PHA 03/27/25 In Process Mg/50ml (Versed Drip 5 09:15 Rass Sedation Scale HAYDER 03/27/25 In Process 09:03 * Surgical Consult CONS 03/27/25 Transmitted Date of Service: March 27, 2025 Billing Provider: JENNIFER HAWTHORNE MD Common Visit Codes: [id number] CARE 30-74 MIN JENNIFER HAWTHORNE MD March 27, 2025 13:25
--- NOTE | 2025-03-27 23:29 | DVHPN2 ---
Progress Note - Dictate Date Seen: March 27, 2025 Medical Necessity Reason Pt with a Central, PICC or Fol: Yes The following are medically ne: Acosta Catheter Reason for acosta catheter: Strict I&O Subjective Patient was seen and evaluated in follow up in the ICU. Patient is intubated and sedated on ventilator. 30% FiO2. WBC 13.1, HGB 7.9, HCT 24.3, BUN 29, SENIOR ADMINISTRATIVE SERVICES OFFICER 1.39. Chest x-ray shows bibasilar atelectasis or pneumonia. vital signs Vital Sign Date Time Temp Pulse Resp B/P (MAP) Pulse Ox O2 Delivery O2 Flow Rate FiO2 03/27/25 12:00 99.5 81 16 129/69 (89) 99 99.5 03/27/25 11:42 30 03/27/25 10:00 Mechanical Ventilator+ 03/26/25 16:00 10 Total Intake and Output 03/26/25 03/26/25 03/27/25 15:00 23:00 07:00 Intake Total 21.540 ml 655.390 ml 555.904 ml Output Total 1000 ml 950 ml Balance 21.540 ml -344.610 ml -394.096 ml medications Current Medications Medications Dose Ordered Sig/John Route Start Time Stop Time Status Last Admin Dose Admin Acetaminophen 650 mg Q6HP PRN PO 02/19/25 13:45 03/09/25 21:36 650 MG Diagnostic Test (Pha) 1 strip ACHS 02/19/25 17:00 03/27/25 11:29 1 STRIP Dextrose 50 ml UD PRN IV 02/19/25 15:45 03/14/25 21:04 50 ML Potassium Chloride 100 ml @ 50 mls/hr Q2H IV 02/19/25 23:15 02/20/25 05:14 Cancel Potassium Chloride 100 ml @ 50 mls/hr Q2H IV 02/20/25 07:15 02/20/25 11:14 UNV Insulin Human Regular ACHS SC 02/28/25 17:00 03/27/25 11:27 2 UNITS Gabapentin 100 mg TID PO 03/02/25 14:00 03/27/25 05:38 100 MG Calcium Acetate 1,334 mg TIDWMEALS PO 03/04/25 12:00 03/27/25 11:30 1,334 MG Ergocalciferol 50,000 unit Q7D PO 03/04/25 11:45 03/25/25 15:05 50,000 UNIT Zirconium Oxide 10 gm TID PO 03/07/25 14:00 Cancel Sodium Bicarbonate 50 ml/ Sodium Chloride 1,050 ml @ 100 mls/hr [id number] IV 03/07/25 11:45 Cancel Fentanyl Citrate 250 ml @ 2.5 mls/hr Q24H IV 03/13/25 02:30 03/27/25 05:52 15 MLS/HR Clindamycin Phosphate 50 ml @ 50 mls/hr Q8HR IV 03/13/25 06:00 03/27/25 05:39 50 MLS/HR Pantoprazole Sodium 40 mg BID IV 03/13/25 10:00 03/27/25 09:40 40 MG Albuterol 2.5 mg Q6HR NEB 03/13/25 12:00 03/27/25 11:42 2.5 MG Ipratropium [place] 0.5 mg Q6HR NEB 03/13/25 12:00 03/27/25 11:42 0.5 MG Saccharomyces Boulardii 250 mg DAILY PO 03/14/25 10:00 03/27/25 09:41 250 MG Enteral Nutritional Formula 1,000 ml 30ML/HR GT 03/14/25 08:45 03/26/25 22:14 1,000 ML Metoprolol Tartrate 25 mg BID GT 03/21/25 10:00 03/27/25 09:41 25 MG Propofol 100 ml @ 2.277 mls/ hr Q24H IV 03/21/25 10:15 03/27/25 05:39 18.216 MLS/HR Duloxetine HCl 30 mg DAILY PO 03/22/25 10:00 03/24/25 10:06 30 MG Lamotrigine 25 mg DAILY PO 03/22/25 10:00 03/27/25 09:41 25 MG Olanzapine 5 mg DAILY PO 03/22/25 10:00 03/27/25 09:41 5 MG Atorvastatin Calcium 80 mg HS PO 03/24/25 22:00 03/26/25 22:14 80 MG Enoxaparin Sodium 40 mg DAILY SC 03/25/25 10:00 03/27/25 09:40 40 MG Aspirin 81 mg DAILY NG 03/25/25 10:00 03/27/25 09:42 81 MG Nicardipine HCl 250 ml @ 50 mls/hr Q5H IV 03/26/25 15:15 03/26/25 15:26 50 MLS/HR Acetylcysteine 100 mg Q6HR NEB 03/26/25 18:00 03/27/25 11:42 100 MG Cefepime HCl 50 ml @ 12.5 mls/hr Q12HR IV 03/26/25 22:00 03/27/25 09:41 12.5 MLS/HR Midazolam HCl 50 ml @ 1 mls/hr Q24H IV 03/27/25 09:15 03/27/25 09:41 1 MLS/HR objective GENERAL: Intubated on ventilator. EYES: PERRL, EOMI. Anicteric. HENT: Moist mucous membranes. LUNGS: Decreased breath sounds. CARDIOVASCULAR: Regular rate and rhythm. ABDOMEN: Soft, non-tender and non-distended. EXTREMITIES: No edema. SKIN: Warm, dry. laboratory and microbiology Laboratory Tests 03/27/25 04:45 Test 03/27/25 04:45 Range/Units Serum Glucose 108 H 74-106 mg/dL Problem List Multiple acute/subacute strokes. Hypokalemia. Acute kidney injury. Hypertension, newly diagnosed. Insulin-dependent diabetes mellitus. Status post right BKA. Dyslipidemia. Polysubstance use disorder. Left lower extremity cellulitis. Peripheral vascular disease status post right [id number] amputation 6 months ago. Sepsis. Diabetic neuropathy. Assessment/Plan Continued all current supportive medical care. Colbert for pain management. IV antibiotics as ordered. DVT and GI prophylactics. IV Hydralazine for SBP >160. Vasopressors for hemodynamic support. Additional plan as per the hospital course. Critical care time of 45 minutes provided to include time spent evaluation of patient at bedside, when appropriate patient/family education for diagnosis, treatment plan, review of pertinent medical information and discussion of care with specialty providers and PCP. Mechanical ventilator parameters, treatment and adjustments have personally been reviewed by me and treatment plan by waterfront director has also been reviewed. Dietary Evaluation Review Comments: 1) Esau 1 pk BID 2) Refer Systems Lead on DC 3) Continue current plan of care Expected Outcomes/Goals: Pt will meet >75% estimated needs Fu 3-5 days Plan discussed with: YANIRA Jorge MD March 27, 2025 12:34
[2025-03-28] VITALS (108 sets, daily range): BP systolic 90–133; BP diastolic 22–72; PULSE 71–88; RESP 14–25; TEMP 96.3–99.5; O2SAT 97–100
[2025-03-28 05:13] LABS: Basophils # (auto) 0.1 10 ^3/uL (0-0.2); Lymphocytes # (auto) 1.1 10 ^3/uL (0.4-5.4); Monocytes # (auto) 0.8 10 ^3/uL (0-1.3); Neutrophils # (auto) 7.9 10 ^3/uL (1.6-8.6); White Blood Cell 10.2 10^3/uL (4.4-10.8)
--- NOTE | 2025-03-28 05:14 | DVH ---
EXAM: XR Chest, 1 View CLINICAL INDICATION: ET Tube Placement Confirmation TECHNIQUE: Frontal view of the chest. COMPARISON: XY CHEST XRAY 1 VIEW on DOS: 03/27/25, XY CHEST PORTABLE on DOS: 03/26/25, XY CHEST PORTAB LE on DOS: 03/26/25, XY CHEST PORTABLE on DOS: 03/25/25, XY CHEST PORTABLE on DOS: 03/24/25 FINDINGS: LUNGS AND PLEURAL SPACES: See below. HEART: Cardiomegaly with mild congestion. MEDIASTINUM: Unremarkable. Normal mediastinal contour. BONES/JOINTS: Unremarkable. No acute fracture. TUBES, LINES AND DEVICES: The endotracheal tube (ETT) is in satisfactory position. Enteric tube ti p in the stomach. OTHER FINDINGS: . . . IMPRESSION: Cardiomegaly with mild congestion.
[2025-03-28 05:16] LABS: Basophils % (auto) 0.8 % (0.0-2.0); Eosinophils # (auto) 0.4 10 ^3/uL (0-0.8); Hematocrit 21.6 % (36.0-46.0); Hemoglobin 7.2 g/dL (12.2-16.2); Lymphocytes % (auto) 10.6 % (10.0-50.0); Mean Corpuscular Hemoglobin 28.3 pg (28.0-32.0); Mean Corpuscular Hgb Conc. 33.3 g/dL (32.0-36.0); Monocytes % (auto) 7.5 % (0.0-12.0); Neutrophils % (auto) 77.1 % (37.0-80.0); Platelet Count (auto) 423 10^3/uL (140-450); Red Blood Cells 2.54 10^6/uL (4.0-5.20); Red Cell Distribution Width 16.3 % (11.8-14.3)
[2025-03-28 05:27] LABS: INR 1.03 (0.9-1.15); Partial Thromboplastin Time 38.2 SEC (24.5-34.5); Prothrombin Time 10.9 sec (9.3-11.8)
[2025-03-28 05:33] LABS: Anion Gap 6 (5-15); Carbon Dioxide 25 mmol/L (20-31); Sodium 143 mmol/L (136-145)
[2025-03-28 05:34] LABS: Calcium 8.9 mg/dL (8.7-10.4)
[2025-03-28 05:39] LABS: BUN/Creatinine Ratio 22.9 (10.0-20.0); Magnesium 1.7 mg/dL (1.6-2.6)
[2025-03-28 05:42] LABS: Blood Urea Nitrogen 32 mg/dL (9-23); Chloride 112 mmol/L (98-107); Glucose 133 mg/dL (74-106); Potassium 3.5 mmol/L (3.5-5.1)
[2025-03-28 07:01] LABS: Base Excess -0.6 mmol/L (-2.0-3.0)
--- NOTE | 2025-03-28 14:58 | DVHPN2 ---
Progress Note Date Seen: March 28, 2025 Resident Creating Document: AUGIE LYONS RESIDENT Medical Necessity Reason Pt with a Central, PICC or Fol: Yes The following are medically ne: Acosta Catheter Reason for acosta catheter: Strict I&O Subjective Review of Systems Patient was reintubated yesterday weaning due to very weak cough and desaturating to 70%. presenting with coarse breath sounds and possible right lower lobe infiltrate, potentially due to aspiration. Chest x-ray showed bibasilar atelectasis or pneumonia. 30% FiO2. Patient is pending trach and PEG placement. HGB 7.2, HCT 21.6, PTT 38.2, CL 112, BUN 32, ROOM ATTENDANT 1.40. Objective vital signs Vital Sign Date Time Temp Pulse Resp B/P (MAP) Pulse Ox O2 Delivery O2 Flow Rate FiO2 03/28/25 14:30 99.3 83 20 97/51 (66) 100 99.3 03/28/25 14:02 30 03/28/25 14:00 Mechanical Ventilator+ 03/26/25 16:00 10 Total Intake and Output 03/27/25 03/27/25 03/28/25 15:00 23:00 07:00 Intake Total 247.702 ml 331.5 ml 487.5 ml Output Total 300 ml 425 ml Balance 247.702 ml 31.5 ml 62.5 ml medications Current Medications Medications Dose Ordered Sig/John Route Start Time Stop Time Status Last Admin Dose Admin Acetaminophen 650 mg Q6HP PRN PO 02/19/25 13:45 03/09/25 21:36 650 MG Diagnostic Test (Pha) 1 strip ACHS 02/19/25 17:00 03/28/25 12:06 1 STRIP Dextrose 50 ml UD PRN IV 02/19/25 15:45 03/14/25 21:04 50 ML Potassium Chloride 100 ml @ 50 mls/hr Q2H IV 02/19/25 23:15 02/20/25 05:14 Cancel Potassium Chloride 100 ml @ 50 mls/hr Q2H IV 02/20/25 07:15 02/20/25 11:14 UNV Insulin Human Regular ACHS SC 02/28/25 17:00 03/28/25 12:06 2 UNITS Gabapentin 100 mg TID PO 03/02/25 14:00 03/28/25 14:14 100 MG Calcium Acetate 1,334 mg TIDWMEALS PO 03/04/25 12:00 03/27/25 17:48 1,334 MG Ergocalciferol 50,000 unit Q7D PO 03/04/25 11:45 03/25/25 15:05 50,000 UNIT Zirconium Oxide 10 gm TID PO 03/07/25 14:00 Cancel Sodium Bicarbonate 50 ml/ Sodium Chloride 1,050 ml @ 100 mls/hr [id number] IV 03/07/25 11:45 Cancel Fentanyl Citrate 250 ml @ 2.5 mls/hr Q24H IV 03/13/25 02:30 03/28/25 08:00 17.5 MLS/HR Clindamycin Phosphate 50 ml @ 50 mls/hr Q8HR IV 03/13/25 06:00 03/28/25 14:16 50 MLS/HR Pantoprazole Sodium 40 mg BID IV 03/13/25 10:00 03/28/25 10:24 40 MG Albuterol 2.5 mg Q6HR NEB 03/13/25 12:00 03/28/25 11:55 2.5 MG Ipratropium [place] 0.5 mg Q6HR NEB 03/13/25 12:00 03/28/25 11:55 0.5 MG Saccharomyces Boulardii 250 mg DAILY PO 03/14/25 10:00 03/28/25 10:24 250 MG Enteral Nutritional Formula 1,000 ml 30ML/HR GT 03/14/25 08:45 03/27/25 19:48 1,000 ML Metoprolol Tartrate 25 mg BID GT 03/21/25 10:00 03/27/25 20:09 25 MG Duloxetine HCl 30 mg DAILY PO 03/22/25 10:00 03/24/25 10:06 30 MG Lamotrigine 25 mg DAILY PO 03/22/25 10:00 03/28/25 10:24 25 MG Olanzapine 5 mg DAILY PO 03/22/25 10:00 03/28/25 10:24 5 MG Atorvastatin Calcium 80 mg HS PO 03/24/25 22:00 03/27/25 20:08 80 MG Enoxaparin Sodium 40 mg DAILY SC 03/25/25 10:00 03/27/25 09:40 40 MG Aspirin 81 mg DAILY NG 03/25/25 10:00 03/28/25 10:24 81 MG Nicardipine HCl 250 ml @ 50 mls/hr Q5H IV 03/26/25 15:15 03/26/25 15:26 50 MLS/HR Acetylcysteine 100 mg Q6HR NEB 03/26/25 18:00 03/28/25 11:55 100 MG Cefepime HCl 50 ml @ 12.5 mls/hr Q12HR IV 03/26/25 22:00 03/28/25 10:24 12.5 MLS/HR Midazolam HCl 50 ml @ 1 mls/hr Q24H IV 03/27/25 09:15 03/28/25 13:00 8 MLS/HR Examination Patient is intubated and sedated coarse rhonchi breath sounds s1 s2 RRR abdomen soft R BKA laboratory and microbiology Laboratory Tests 03/28/25 04:44 Test 03/28/25 04:44 Range/Units Serum Glucose 133 H 74-106 mg/dL Microbiology Date/Time Source Procedure Growth Status 03/26/25 17:24 Sputum Gram Stain Pending Resulted 03/26/25 17:24 Sputum Respiratory Culture - Preliminary Resulted 03/13/25 05:10 Blood Blood Culture - Final NO GROWTH AFTER 5 DAYS OF INCUBATION. Complete 03/06/25 14:37 Knee Left Gram Stain - Final Complete 03/06/25 14:37 Knee Left Anaerobic Culture - Final Complete 03/06/25 14:37 Aerobic Culture - Final Staphylococcus aureus Complete 03/04/25 13:29 Aspirate Gram Stain - Final Complete 03/04/25 13:29 Body Fluid Culture - Final Staphylococcus aureus Complete 02/19/25 17:27 Urine - [place] Urine Culture - Final Complete Problem List/Assessment/Plan Problem List/Assessment/Plan Assessment Acute hypoxemic respiratory failure Altered mental status Sepsis Multiple acute/subacute strokes. Acute kidney injury. Insulin-dependent diabetes mellitus. Status post right BKA. Dyslipidemia. Polysubstance use disorder. Left lower extremity cellulitis. Plan: Patient was reintubated and sedated - Assess for any signs or symptoms of aspiration pneumonia - Consider respiratory therapy interventions as needed ABG reviewed MRI new strokes Continue antibiotics F/u cultures Bronchodilators Monitor renal function Monitor electrolytes Supplement as needed Pressors as needed for hemodynamic support To maintain a mean arterial pressure of 65 mmHg continue psychiatric meds Tolerating CPAP trail but not fully awake, not following command yet. Patient is prognosis is questionable. Case discussed with Dr. Ndiaye Plan discussed with: Patient Dietary Evaluation Review Comments: 1) Esau 1 pk BID 2) Refer Human Anatomy Teacher on DC 3) Continue current plan of care Expected Outcomes/Goals: Pt will meet >75% estimated needs Fu 3-5 days Date of Service: March 28, 2025 Billing Provider: ARUNA NDIAYE MD Common Visit Codes: NOT BILLABLE AUGIE LYONS RESIDENT March 28, 2025 14:58 ARUNA NDIAYE MD March 29, 2025 13:57
--- NOTE | 2025-03-28 15:04 | DVHPN2 ---
Assessment/Plan Assessment/Plan ICU note covering new MRI with new stroke compared to prior. restart asa lipitor. although possible cardioembolic, patient was in NSR, last myles with no PFO in bubble. POCUS done, no IJ, subclavian or axilary thrombosis on b/l UE. hyperechic structure seen in [place], likely reverberation from LVOT (positional, doesnt nece ssarily looks like mass), bubble negative. low suspicion of CSVT. swtiching acosta, TLC. seen today during rounds, pending trach and peg. daily SBT for exercise, ss for ltach physical exam Following commands alert PERRLA MMM coarse rhonchi breath sounds s1 s2 RRR abdomen soft R BKA labs ekg imaging reviewed assessment and plan Acute hypoxic/metabolic/toxic encephalopathy Acute hypoxic respiratory failure Severe sepsis with leukocytosis and fever due to soft tissue infection/cellulitis and suspected left knee infection Multiple acute/subacute strokes Electrolytes imbalance with hypokalemia and hypomagnesemia TATIANNA; most likely vasomotor nephropathy in the setting of sepsis; avoid nephrotoxic agents; nephrology is following; morning labs pending; continue m onitoring Uncontrolled diabetes mellitus type 2 with hyperglycemia PAD status post right BKA Multiple left foot diabetic ulcers Polysubstance (marijuana and tobacco) use disorder Obesity enalaprilat 6.25 q8 for htn c/w oral antihtn asa rectal transfuse to keep hb >7 deline MYLES for LAITH,LA,LV thrombus or veg c/w rest of management ss for ltach trach and peg diet tf dvt ppx lovenox gi ppx protonix full code prognosis poor condition critical 55 minutes critical care time spent Plan discussed with: Patient My Orders Orders - JENNIFER HAWTHORNE MD Procedure Category Date Status Time Chest Xray 1 View XY 03/28/25 Resulted 05:00 Abg W/ Co-Ox RT 03/28/25 Logged 06:00 Cpap Trial For Am ORDERS 03/28/25 Transmitted 10:12 Date of Service: March 28, 2025 Billing Provider: JENNIFER HAWTHORNE MD Common Visit Codes: [id number] CARE 30-74 MIN JENNIFER HAWTHORNE MD March 28, 2025 15:04
--- NOTE | 2025-03-28 18:50 | DVHPN2 ---
Progress Note - Dictate Date Seen: March 28, 2025 Medical Necessity Reason Pt with a Central, PICC or Fol: Yes The following are medically ne: Acosta Catheter Reason for acosta catheter: Strict I&O Subjective Patient was seen and evaluated in follow up in the ICU. Patient is intubated and sedated on ventilator. 30% FiO2. Patient is pending trach and PEG placement. HGB 7.2, HCT 21.6, PTT 38.2, CL 112, BUN 32, LOBBYIST 1.40. vital signs Vital Sign Date Time Temp Pulse Resp B/P (MAP) Pulse Ox O2 Delivery O2 Flow Rate FiO2 03/28/25 12:00 20 99 Mechanical Ventilator+ 30 30 03/28/25 12:00 87 03/28/25 11:56 102/50 (67) 03/28/25 11:00 98.4 209.1 03/26/25 16:00 10 Total Intake and Output 03/27/25 03/27/25 03/28/25 15:00 23:00 07:00 Intake Total 247.702 ml 331.5 ml 487.5 ml Output Total 300 ml 425 ml Balance 247.702 ml 31.5 ml 62.5 ml medications Current Medications Medications Dose Ordered Sig/John Route Start Time Stop Time Status Last Admin Dose Admin Acetaminophen 650 mg Q6HP PRN PO 02/19/25 13:45 03/09/25 21:36 650 MG Diagnostic Test (Pha) 1 strip ACHS 02/19/25 17:00 03/28/25 12:06 1 STRIP Dextrose 50 ml UD PRN IV 02/19/25 15:45 03/14/25 21:04 50 ML Potassium Chloride 100 ml @ 50 mls/hr Q2H IV 02/19/25 23:15 02/20/25 05:14 Cancel Potassium Chloride 100 ml @ 50 mls/hr Q2H IV 02/20/25 07:15 02/20/25 11:14 UNV Insulin Human Regular ACHS SC 02/28/25 17:00 03/28/25 12:06 2 UNITS Gabapentin 100 mg TID PO 03/02/25 14:00 03/28/25 05:25 100 MG Calcium Acetate 1,334 mg TIDWMEALS PO 03/04/25 12:00 03/27/25 17:48 1,334 MG Ergocalciferol 50,000 unit Q7D PO 03/04/25 11:45 03/25/25 15:05 50,000 UNIT Zirconium Oxide 10 gm TID PO 03/07/25 14:00 Cancel Sodium Bicarbonate 50 ml/ Sodium Chloride 1,050 ml @ 100 mls/hr [id number] IV 03/07/25 11:45 Cancel Fentanyl Citrate 250 ml @ 2.5 mls/hr Q24H IV 03/13/25 02:30 03/28/25 08:00 17.5 MLS/HR Clindamycin Phosphate 50 ml @ 50 mls/hr Q8HR IV 03/13/25 06:00 03/28/25 05:25 50 MLS/HR Pantoprazole Sodium 40 mg BID IV 03/13/25 10:00 03/28/25 10:24 40 MG Albuterol 2.5 mg Q6HR NEB 03/13/25 12:00 03/28/25 11:55 2.5 MG Ipratropium [place] 0.5 mg Q6HR NEB 03/13/25 12:00 03/28/25 11:55 0.5 MG Saccharomyces Boulardii 250 mg DAILY PO 03/14/25 10:00 03/28/25 10:24 250 MG Enteral Nutritional Formula 1,000 ml 30ML/HR GT 03/14/25 08:45 03/27/25 19:48 1,000 ML Metoprolol Tartrate 25 mg BID GT 03/21/25 10:00 03/27/25 20:09 25 MG Duloxetine HCl 30 mg DAILY PO 03/22/25 10:00 03/24/25 10:06 30 MG Lamotrigine 25 mg DAILY PO 03/22/25 10:00 03/28/25 10:24 25 MG Olanzapine 5 mg DAILY PO 03/22/25 10:00 03/28/25 10:24 5 MG Atorvastatin Calcium 80 mg HS PO 03/24/25 22:00 03/27/25 20:08 80 MG Enoxaparin Sodium 40 mg DAILY SC 03/25/25 10:00 03/27/25 09:40 40 MG Aspirin 81 mg DAILY NG 03/25/25 10:00 03/28/25 10:24 81 MG Nicardipine HCl 250 ml @ 50 mls/hr Q5H IV 03/26/25 15:15 03/26/25 15:26 50 MLS/HR Acetylcysteine 100 mg Q6HR NEB 03/26/25 18:00 03/28/25 11:55 100 MG Cefepime HCl 50 ml @ 12.5 mls/hr Q12HR IV 03/26/25 22:00 03/28/25 10:24 12.5 MLS/HR Midazolam HCl 50 ml @ 1 mls/hr Q24H IV 03/27/25 09:15 03/28/25 01:48 8 MLS/HR objective GENERAL: Intubated on ventilator. EYES: PERRL, EOMI. Anicteric. HENT: Moist mucous membranes. LUNGS: Decreased breath sounds. CARDIOVASCULAR: Regular rate and rhythm. ABDOMEN: Soft, non-tender and non-distended. EXTREMITIES: No edema. SKIN: Warm, dry. laboratory and microbiology Laboratory Tests 03/28/25 04:44 Test 03/28/25 04:44 Range/Units Serum Glucose 133 H 74-106 mg/dL Problem List Multiple acute/subacute strokes. Hypokalemia. Acute kidney injury. Hypertension, newly diagnosed. Insulin-dependent diabetes mellitus. Status post right BKA. Dyslipidemia. Polysubstance use disorder. Left lower extremity cellulitis. Peripheral vascular disease status post right [id number] amputation 6 months ago. Sepsis. Diabetic neuropathy. Assessment/Plan Continued all current supportive medical care. Stollings for pain management. IV antibiotics as ordered. DVT and GI prophylactics. IV Hydralazine for SBP >160. Vasopressors for hemodynamic support. Additional plan as per the hospital course. Critical care time of 45 minutes provided to include time spent evaluation of patient at bedside, when appropriate patient/family education for diagnosis, treatment plan, review of pertinent medical information and discussion of care with specialty providers and PCP. Mechanical ventilator parameters, treatment and adjustments have personally been reviewed by me and treatment plan by iron erector has also been reviewed. Dietary Evaluation Review Comments: 1) Esau 1 pk BID 2) Refer [employer] Associate on DC 3) Continue current plan of care Expected Outcomes/Goals: Pt will meet >75% estimated needs Fu 3-5 days Plan discussed with: Other YANIRA WINN MD March 28, 2025 12:20
[2025-03-28] MEDS: NICARDIPINE HCL IN SODIUM CHLO 200 ML IV SCH (19:01)
--- NOTE | 2025-03-28 22:07 | DVHPN2 ---
Progress Note - Dictate Date Seen: March 28, 2025 Medical Necessity Reason Pt with a Central, PICC or Fol: Yes The following are medically ne: Acosta Catheter Reason for acosta catheter: Strict I&O Subjective Mr. Kaur is a 54 years old right-handed female with a history of hypertension, diabetes, dyslipidemia, anxiety, GERD, osteo myelitis status post right BKA, she came to the [facility] on 02/19/25 with a chief complaint of general weakness. He was transferred/ICU on 03/13/25 for ALOC, nasal bleeding and intubation I have seen and examined the patient, I have talked to her nurse, she is reason to touch stimuli He was extubated but reintubated on 03/26/2025 Psychiatry consultation, 02/26/25: 1:1 sitter. Transferred to inpatient psychiatric facility. Cymbalta 30 mg b.i.d. Follow MRI brain scan on 03/21/2025 showed new multiple strokes Fentanyl 150 mcg/hour, Versed 6 mg/hour, propofol 0 mcg/minute ABG, 03/13/2025: Unremarkable UDS, 02/19/2025: Cannabinoids Plasma alcohol, 02/19/2025: 3 Urinalysis, 02/19, : WBC: 2, urine leukocyte esterase WBC/HB/PLT/MCV, 02/20/2025: 21.9/10.9/398/83.1, 03/13/2025: 11.7/6.5/424/85.4 PT/INR/PTT, 03/13/2025: 10.6/1/38.6 K, 02/19/2025: 1.7, 02/20/2025: 2.1 BUN/CR, 02/20/2025: 33/2.03, 03/13/2025: 51.93 HGB A1c, 06/03/2024: 13.1 Liver function tests, 02/20/2025: Unremarkable TG/HDL/LDL/HDL, 04/11/2024: 180/238/164/43 MAGALIS, 02/21/2025: 1. Technically good study. Sinus rhythm. 2. Left atrial enlargement. 3. Number Valves appear to be structurally normal. 4. Ventricular systolic function is preserved at 60% with normal RV function. 5. Doppler reveals mild TR. No significant mitral or aortic insufficiency. No atrial septal or ventricular septal defects 6. No masses or vegetations discernible. 7. The atrial appendage looks clean, no masses. No atrial or ventricular septal defects as noted. No abnormal shunting. Bubble study was negative 8. The valves appear to be structurally normal. No vegetations or signs of emboli present. Carotid Doppler, 02/20/2025: No hemodynamically significant stenosis noted in the right carotid system. No hemodynamically significant stenosis noted in the left carotid system. Chest X-ray, 03/19/25: 1. Endotracheal tube terminates 4cm from caleb. Other lines and tubes are unchanged in position. 2. Bilateral airspace disease similar to prior study. CT head, : Small age-indeterminate infarct extending from the right jorge radiata into the right basal ganglia. Further evaluation with MRI brain with diffusion-weighted imaging is recommended. CT head, , No acute intracranial abnormality. Multiple subacute bilateral lacunar infarcts as seen on prior MRI. MRI head, 02/19/2025: 1. There are multiple small foci of acute to subacute infarct in the right jorge radiata and right basal ganglia. There are also multiple small acute to subacute infarcts in the left anteromedial frontal lobe and in the left jorge radiata and left basal ganglia. There is no evidence of acute hemorrhage MR head, 03/21/2025: 1. Multiple foci of restricted diffusion involving the left corpus callosum, bilateral basal ganglia and right jorge radiata. The largest area involves the left splenium of the corpus callosum. These likely represent acute to subacute infarcts. There is no evidence of acute hemorrhage. 2. Moderate amount of fluid in the bilateral mastoid air cells MRI left foot, 02/22/25: Moderate dorsal subcutaneous edema. No evidence of osteomyelitis. No drainable fluid collection noted. Moderate myositis. vital signs Vital Sign Date Time Temp Pulse Resp B/P (MAP) Pulse Ox O2 Delivery O2 Flow Rate FiO2 03/28/25 20:30 97.9 79 21 103/49 (67) 100 208.2 03/28/25 20:10 30 03/28/25 20:00 Mechanical Ventilator+ 03/26/25 16:00 10 Total Intake and Output 03/27/25 03/27/25 03/28/25 15:00 23:00 07:00 Intake Total 247.702 ml 331.5 ml 487.5 ml Output Total 300 ml 425 ml Balance 247.702 ml 31.5 ml 62.5 ml medications Current Medications Medications Dose Ordered Sig/John Route Start Time Stop Time Status Last Admin Dose Admin Acetaminophen 650 mg Q6HP PRN PO 02/19/25 13:45 03/09/25 21:36 650 MG Diagnostic Test (Pha) 1 strip ACHS 02/19/25 17:00 03/28/25 21:21 1 STRIP Dextrose 50 ml UD PRN IV 02/19/25 15:45 03/14/25 21:04 50 ML Potassium Chloride 100 ml @ 50 mls/hr Q2H IV 02/19/25 23:15 02/20/25 05:14 Cancel Potassium Chloride 100 ml @ 50 mls/hr Q2H IV 02/20/25 07:15 02/20/25 11:14 UNV Insulin Human Regular ACHS SC 02/28/25 17:00 03/28/25 12:06 2 UNITS Gabapentin 100 mg TID PO 03/02/25 14:00 03/28/25 21:15 100 MG Calcium Acetate 1,334 mg TIDWMEALS PO 03/04/25 12:00 03/27/25 17:48 1,334 MG Ergocalciferol 50,000 unit Q7D PO 03/04/25 11:45 03/25/25 15:05 50,000 UNIT Zirconium Oxide 10 gm TID PO 03/07/25 14:00 Cancel Sodium Bicarbonate 50 ml/ Sodium Chloride 1,050 ml @ 100 mls/hr [id number] IV 03/07/25 11:45 Cancel Fentanyl Citrate 250 ml @ 2.5 mls/hr Q24H IV 03/13/25 02:30 03/28/25 21:20 12.5 MLS/HR Clindamycin Phosphate 50 ml @ 50 mls/hr Q8HR IV 03/13/25 06:00 03/28/25 21:16 50 MLS/HR Pantoprazole Sodium 40 mg BID IV 03/13/25 10:00 03/28/25 21:15 40 MG Albuterol 2.5 mg Q6HR NEB 03/13/25 12:00 03/28/25 18:22 2.5 MG Ipratropium [place] 0.5 mg Q6HR NEB 03/13/25 12:00 03/28/25 18:22 0.5 MG Saccharomyces Boulardii 250 mg DAILY PO 03/14/25 10:00 03/28/25 10:24 250 MG Enteral Nutritional Formula 1,000 ml 30ML/HR GT 03/14/25 08:45 03/28/25 17:07 1,000 ML Metoprolol Tartrate 25 mg BID GT 03/21/25 10:00 03/27/25 20:09 25 MG Duloxetine HCl 30 mg DAILY PO 03/22/25 10:00 03/24/25 10:06 30 MG Lamotrigine 25 mg DAILY PO 03/22/25 10:00 03/28/25 10:24 25 MG Olanzapine 5 mg DAILY PO 03/22/25 10:00 03/28/25 10:24 5 MG Atorvastatin Calcium 80 mg HS PO 03/24/25 22:00 03/28/25 21:15 80 MG Enoxaparin Sodium 40 mg DAILY SC 03/25/25 10:00 03/27/25 09:40 40 MG Aspirin 81 mg DAILY NG 03/25/25 10:00 03/28/25 10:24 81 MG Acetylcysteine 100 mg Q6HR NEB 03/26/25 18:00 03/28/25 18:22 100 MG Cefepime HCl 50 ml @ 12.5 mls/hr Q12HR IV 03/26/25 22:00 03/28/25 21:16 12.5 MLS/HR Midazolam HCl 50 ml @ 1 mls/hr Q24H IV 03/27/25 09:15 03/28/25 21:16 5 MLS/HR Nicardipine/ Sodium Chloride 200 ml @ 50 mls/hr Q4H IV 03/28/25 17:45 objective The patient is well-nourished and well-developed with no distress. The patient is intubated MUSCULOSKELETAL EXAM: Status post right BKA MENTAL STATUS: Subjective CRANIAL NERVES: Pupils are equal, round and reactive, small. There are corneal reflexes and doll's eyes phenomenon. No signs of facial weakness. There are no gagging or coughing reflexes SENSATION: responses to pain stimuli. MOTOR: Normal tone in the upper and lower extremity. Normal muscle bulk. No fasciculations. No spontaneous movement noticed REFLEXES: Deep tendon reflexes are symmetrical. No pathological reflexes. CEREBELLAR/COORDINATION: Deferred GAIT/STATION: deferred. laboratory and microbiology Laboratory Tests 03/28/25 04:44 Test 03/28/25 04:44 Range/Units Serum Glucose 133 H 74-106 mg/dL Problem List Acute respiratory failure Excessive nasal bleeding Come Metabolic encephalopathy Hypoxic encephalopathy Toxic encephalopathy General weakness Multiple acute/subacute strokes (MRI head: 02/19/2025, 03/21/2025) Status post right BKA Depression Assessment/Plan Monitoring Supportive treatment ICU Stabilize vitals Respiratory support/vent management Oxygen Antibiotics Aspirin 81 mg daily Lipitor 80mg Qd Cymbalta 30 mg b.i.d. DVT prophylaxis/Lovenox Quit tobacco smoking completely Wean off sedation as tolerated Consider Tracheostomy More recommendation per clinical course This medical document was created using an electronic medical record system with [employer] dictation system. Although this document has been carefully reviewed, there may still be some phonetic and typographical errors. These areas are purely typographical due to imperfections of the software programs, and do not reflect any compromise in the patient's medical care. Prognosis guarded Dietary Evaluation Review Comments: 1) Esau 1 pk BID 2) Refer Glue Cook on DC 3) Continue current plan of care Expected Outcomes/Goals: Pt will meet >75% estimated needs Fu 3-5 days Plan discussed with: Other Critical Care Time(min): 30 NEELA RUEDA MD March 28, 2025 22:07
[2025-03-29] VITALS (112 sets, daily range): BP systolic 81–182; BP diastolic 47–120; PULSE 80–113; RESP 10–29; TEMP 98.2–99.5; O2SAT 71–100
[2025-03-29 05:11] LABS: Anion Gap 7 (5-15); Carbon Dioxide 25 mmol/L (20-31); Sodium 143 mmol/L (136-145)
[2025-03-29 05:17] LABS: BUN/Creatinine Ratio 23.2 (10.0-20.0)
[2025-03-29 05:18] LABS: Blood Urea Nitrogen 36 mg/dL (9-23); Calcium 8.6 mg/dL (8.7-10.4); Chloride 111 mmol/L (98-107); Glucose 111 mg/dL (74-106); Magnesium 1.7 mg/dL (1.6-2.6); Potassium 3.5 mmol/L (3.5-5.1)
[2025-03-29 05:19] LABS: Phosphorus 5.2 mg/dL (2.4-5.1)
[2025-03-29 06:00] LABS: Basophils # (auto) 0.1 10 ^3/uL (0-0.2); Eosinophils # (auto) 0.4 10 ^3/uL (0-0.8); Lymphocytes % (auto) 9.8 % (10.0-50.0); Monocytes # (auto) 0.8 10 ^3/uL (0-1.3); Red Cell Distribution Width 15.7 % (11.8-14.3)
[2025-03-29 06:02] LABS: Basophils % (auto) 0.7 % (0.0-2.0); Eosinophils % (auto) 3.5 % (0.0-7.0); Hematocrit 20.8 % (36.0-46.0); Mean Corpuscular Hemoglobin 27.7 pg (28.0-32.0); Mean Corpuscular Hgb Conc. 32.6 g/dL (32.0-36.0); Mean Corpuscular Volume 84.8 fL (80.0-100.0); Monocytes % (auto) 7.5 % (0.0-12.0); Neutrophils % (auto) 78.5 % (37.0-80.0); Nucleated Red Blood Cells % 0.1 %; Platelet Count (auto) 426 10^3/uL (140-450); Red Blood Cells 2.45 10^6/uL (4.0-5.20); White Blood Cell 10.2 10^3/uL (4.4-10.8)
[2025-03-29 06:11] LABS: Hemoglobin 6.8 g/dL (12.2-16.2)
--- NOTE | 2025-03-29 06:19 | DVH ---
CHEST RADIOGRAPH Indication: intubated Technique: Single frontal view of the chest was obtained COMPARISON: XY CHEST XRAY 1 VIEW on DOS: 03/28/25, XY CHEST XRAY 1 VIEW on DOS: 03/27/25, XY CHEST PORTAB LE on DOS: 03/26/25, XY CHEST PORTABLE on DOS: 03/26/25, XY CHEST PORTABLE on DOS: 03/25/25 FINDINGS: Lines and Tubes: Unchanged. Lungs: Minimal bilateral pleural effusions are unchanged. The lungs are otherwise clear without evide nce of focal consolidation. No pneumothorax. Cardiomediastinal contours: Unremarkable Bones: Unremarkable IMPRESSION: 1. Stable minimal bilateral pleural effusions. 2. Lines and tubes unchanged.
[2025-03-29 07:04] LABS: Base Excess -0.7 mmol/L (-2.0-3.0)
--- NOTE | 2025-03-29 13:59 | DVHPN2 ---
Progress Note - Dictate Date Seen: March 29, 2025 Medical Necessity Reason Pt with a Central, PICC or Fol: Yes The following are medically ne: Acosta Catheter Reason for acosta catheter: Strict I&O vital signs Vital Sign Date Time Temp Pulse Resp B/P (MAP) Pulse Ox O2 Delivery O2 Flow Rate FiO2 03/29/25 13:20 112 151/92 91 Facial BiPAP Mask 45 03/29/25 12:00 20 10 03/29/25 12:00 98.8 98.8 Total Intake and Output 03/28/25 03/28/25 03/29/25 15:00 23:00 07:00 Intake Total 304.0 ml 323.0 ml 231.385 ml Output Total 575 ml 550 ml Balance 304.0 ml -252.0 ml -318.615 ml medications Current Medications Medications Dose Ordered Sig/John Route Start Time Stop Time Status Last Admin Dose Admin Acetaminophen 650 mg Q6HP PRN PO 02/19/25 13:45 03/09/25 21:36 650 MG Diagnostic Test (Pha) 1 strip ACHS 02/19/25 17:00 03/29/25 07:00 1 STRIP Dextrose 50 ml UD PRN IV 02/19/25 15:45 03/14/25 21:04 50 ML Potassium Chloride 100 ml @ 50 mls/hr Q2H IV 02/19/25 23:15 02/20/25 05:14 Cancel Potassium Chloride 100 ml @ 50 mls/hr Q2H IV 02/20/25 07:15 02/20/25 11:14 UNV Insulin Human Regular ACHS SC 02/28/25 17:00 03/28/25 12:06 2 UNITS Gabapentin 100 mg TID PO 03/02/25 14:00 03/29/25 05:47 100 MG Calcium Acetate 1,334 mg TIDWMEALS PO 03/04/25 12:00 03/27/25 17:48 1,334 MG Ergocalciferol 50,000 unit Q7D PO 03/04/25 11:45 03/25/25 15:05 50,000 UNIT Zirconium Oxide 10 gm TID PO 03/07/25 14:00 Cancel Sodium Bicarbonate 50 ml/ Sodium Chloride 1,050 ml @ 100 mls/hr [id number] IV 03/07/25 11:45 Cancel Fentanyl Citrate 250 ml @ 2.5 mls/hr Q24H IV 03/13/25 02:30 03/28/25 21:20 12.5 MLS/HR Clindamycin Phosphate 50 ml @ 50 mls/hr Q8HR IV 03/13/25 06:00 03/29/25 05:47 50 MLS/HR Pantoprazole Sodium 40 mg BID IV 03/13/25 10:00 03/29/25 10:53 40 MG Albuterol 2.5 mg Q6HR NEB 03/13/25 12:00 03/29/25 11:02 2.5 MG Ipratropium [place] 0.5 mg Q6HR NEB 03/13/25 12:00 03/29/25 11:02 0.5 MG Saccharomyces Boulardii 250 mg DAILY PO 03/14/25 10:00 03/28/25 10:24 250 MG Enteral Nutritional Formula 1,000 ml 30ML/HR GT 03/14/25 08:45 03/28/25 17:07 1,000 ML Metoprolol Tartrate 25 mg BID GT 03/21/25 10:00 03/29/25 10:53 25 MG Duloxetine HCl 30 mg DAILY PO 03/22/25 10:00 03/24/25 10:06 30 MG Lamotrigine 25 mg DAILY PO 03/22/25 10:00 03/28/25 10:24 25 MG Olanzapine 5 mg DAILY PO 03/22/25 10:00 03/29/25 10:53 5 MG Atorvastatin Calcium 80 mg HS PO 03/24/25 22:00 03/28/25 21:15 80 MG Enoxaparin Sodium 40 mg DAILY SC 03/25/25 10:00 03/29/25 10:54 40 MG Aspirin 81 mg DAILY NG 03/25/25 10:00 03/28/25 10:24 81 MG Acetylcysteine 100 mg Q6HR NEB 03/26/25 18:00 03/29/25 11:02 100 MG Cefepime HCl 50 ml @ 12.5 mls/hr Q12HR IV 03/26/25 22:00 03/29/25 10:00 12.5 MLS/HR Midazolam HCl 50 ml @ 1 mls/hr Q24H IV 03/27/25 09:15 03/29/25 05:48 1 MLS/HR Nicardipine/ Sodium Chloride 200 ml @ 50 mls/hr Q4H IV 03/28/25 17:45 laboratory and microbiology Laboratory Tests 03/29/25 05:45 03/29/25 04:22 Test 03/29/25 04:22 Range/Units Serum Glucose 111 H 74-106 mg/dL Assessment/Plan Impression Acute hypoxemic respiratory failure Altered mental status Hx of CVA Sepsis Patient seen and examined in ICU Events On mechanical ventilation S/p intubation PEEP 5, FiO2 30% Awake, following commands Labs and imaging reviewed MRI new strokes ?cause ABG reviewed Management Vent support Titrate to maintain sats 90% or above for airway protection Sedation holiday If patient follows commands, proceed to weaning trial Pressure support 05/31, extubate when ready Continue antibiotics F/u cultures Bronchodilators Monitor renal function Monitor electrolytes Supplement as needed Pressors as needed for hemodynamic support To maintain a mean arterial pressure of 65 mmHg continue psychiatric meds DVT prophylaxis Critical care time 35 minutes Dietary Evaluation Review Comments: 1) Esau 1 pk BID 2) Refer Can Capper on DC 3) Continue current plan of care Expected Outcomes/Goals: Pt will meet >75% estimated needs Fu 3-5 days Plan discussed with: Other (Rn) ARUNA BRISENO MD March 29, 2025 13:59
[2025-03-29 14:43] LABS: Base Excess -4.3 mmol/L (-2.0-3.0)
--- NOTE | 2025-03-29 15:27 | DVHPN2 ---
Progress Note - Dictate Date Seen: March 29, 2025 Medical Necessity Reason Pt with a Central, PICC or Fol: Yes The following are medically ne: Acosta Catheter Reason for acosta catheter: Strict I&O Subjective Patient was seen and evaluated in follow up in the ICU. Patient was successfully extubated this am. Patient now on Bi-PAP, 60% FiO2. HGB 6.8, HCT 20.8, BUN 36, HOUSING SPECIALIST 1.55, [place] 8.6. Chest x-ray shows stable minimal bilateral pleural effusions. vital signs Vital Sign Date Time Temp Pulse Resp B/P (MAP) Pulse Ox O2 Delivery O2 Flow Rate FiO2 03/29/25 11:43 98.4 105 10 139/85 98.4 03/29/25 10:15 97 30 03/29/25 08:00 Mechanical Ventilator+ Total Intake and Output 03/28/25 03/28/25 03/29/25 15:00 23:00 07:00 Intake Total 304.0 ml 323.0 ml 231.385 ml Output Total 575 ml 550 ml Balance 304.0 ml -252.0 ml -318.615 ml medications Current Medications Medications Dose Ordered Sig/John Route Start Time Stop Time Status Last Admin Dose Admin Acetaminophen 650 mg Q6HP PRN PO 02/19/25 13:45 03/09/25 21:36 650 MG Diagnostic Test (Pha) 1 strip ACHS 02/19/25 17:00 03/29/25 07:00 1 STRIP Dextrose 50 ml UD PRN IV 02/19/25 15:45 03/14/25 21:04 50 ML Potassium Chloride 100 ml @ 50 mls/hr Q2H IV 02/19/25 23:15 02/20/25 05:14 Cancel Potassium Chloride 100 ml @ 50 mls/hr Q2H IV 02/20/25 07:15 02/20/25 11:14 UNV Insulin Human Regular ACHS SC 02/28/25 17:00 03/28/25 12:06 2 UNITS Gabapentin 100 mg TID PO 03/02/25 14:00 03/29/25 05:47 100 MG Calcium Acetate 1,334 mg TIDWMEALS PO 03/04/25 12:00 03/27/25 17:48 1,334 MG Ergocalciferol 50,000 unit Q7D PO 03/04/25 11:45 03/25/25 15:05 50,000 UNIT Zirconium Oxide 10 gm TID PO 03/07/25 14:00 Cancel Sodium Bicarbonate 50 ml/ Sodium Chloride 1,050 ml @ 100 mls/hr [id number] IV 03/07/25 11:45 Cancel Fentanyl Citrate 250 ml @ 2.5 mls/hr Q24H IV 03/13/25 02:30 03/28/25 21:20 12.5 MLS/HR Clindamycin Phosphate 50 ml @ 50 mls/hr Q8HR IV 03/13/25 06:00 03/29/25 05:47 50 MLS/HR Pantoprazole Sodium 40 mg BID IV 03/13/25 10:00 03/29/25 10:53 40 MG Albuterol 2.5 mg Q6HR NEB 03/13/25 12:00 03/29/25 11:02 2.5 MG Ipratropium [place] 0.5 mg Q6HR NEB 03/13/25 12:00 03/29/25 11:02 0.5 MG Saccharomyces Boulardii 250 mg DAILY PO 03/14/25 10:00 03/28/25 10:24 250 MG Enteral Nutritional Formula 1,000 ml 30ML/HR GT 03/14/25 08:45 03/28/25 17:07 1,000 ML Metoprolol Tartrate 25 mg BID GT 03/21/25 10:00 03/29/25 10:53 25 MG Duloxetine HCl 30 mg DAILY PO 03/22/25 10:00 03/24/25 10:06 30 MG Lamotrigine 25 mg DAILY PO 03/22/25 10:00 03/28/25 10:24 25 MG Olanzapine 5 mg DAILY PO 03/22/25 10:00 03/29/25 10:53 5 MG Atorvastatin Calcium 80 mg HS PO 03/24/25 22:00 03/28/25 21:15 80 MG Enoxaparin Sodium 40 mg DAILY SC 03/25/25 10:00 03/29/25 10:54 40 MG Aspirin 81 mg DAILY NG 03/25/25 10:00 03/28/25 10:24 81 MG Acetylcysteine 100 mg Q6HR NEB 03/26/25 18:00 03/29/25 11:02 100 MG Cefepime HCl 50 ml @ 12.5 mls/hr Q12HR IV 03/26/25 22:00 03/29/25 10:00 12.5 MLS/HR Midazolam HCl 50 ml @ 1 mls/hr Q24H IV 03/27/25 09:15 03/29/25 05:48 1 MLS/HR Nicardipine/ Sodium Chloride 200 ml @ 50 mls/hr Q4H IV 03/28/25 17:45 objective GENERAL: Awake. EYES: PERRL, EOMI. Anicteric. HENT: Moist mucous membranes. LUNGS: Decreased breath sounds. CARDIOVASCULAR: Regular rate and rhythm. ABDOMEN: Soft, non-tender and non-distended. EXTREMITIES: No edema. SKIN: Warm, dry. laboratory and microbiology Laboratory Tests 03/29/25 05:45 03/29/25 04:22 Test 03/29/25 04:22 Range/Units Serum Glucose 111 H 74-106 mg/dL Problem List Multiple acute/subacute strokes. Hypokalemia. Acute kidney injury. Hypertension, newly diagnosed. Insulin-dependent diabetes mellitus. Status post right BKA. Dyslipidemia. Polysubstance use disorder. Left lower extremity cellulitis. Peripheral vascular disease status post right [id number] amputation 6 months ago. Sepsis. Diabetic neuropathy. Assessment/Plan Continued all current supportive medical care. [place] for pain management. IV antibiotics as ordered. DVT and GI prophylactics. IV Hydralazine for SBP >160. Vasopressors for hemodynamic support. Additional plan as per the hospital course. Critical care time of 45 minutes provided to include time spent evaluation of patient at bedside, when appropriate patient/family education for diagnosis, treatment plan, review of pertinent medical information and discussion of care with specialty providers and PCP. Dietary Evaluation Review Comments: 1) Esau 1 pk BID 2) Refer Paint Maker on DC 3) Continue current plan of care Expected Outcomes/Goals: Pt will meet >75% estimated needs Fu 3-5 days Plan discussed with: Patient YANIRA WINN MD March 29, 2025 12:07
[2025-03-29] MEDS: LORazepam 2MG/ML-1ML VIAL IV PRN (16:49)
[2025-03-29] MEDS: LORazepam 2MG/ML-1ML VIAL ONE (16:49)
--- NOTE | 2025-03-29 18:35 | DVHPN2 ---
Subjective in bed on bipap Reviewed: Care Plan, H&P, Labs, Medications, Previous Orders, Radiology, Other (Consultations) Changes from previous H/P or p: No Changes Objective Vitals Vital Signs Date Time Temp Pulse Resp B/P (MAP) Pulse Ox O2 Delivery O2 Flow Rate FiO2 03/29/25 18:15 98.2 108 22 97 208.8 03/29/25 18:03 Facial BiPAP Mask 60 03/29/25 12:00 10 Intake/Output Intake and Output 03/29/25 07:00 Intake Total 858.385 ml Output Total 1125 ml Balance -266.615 ml IV Total 638.385 ml Tube Feeding 220 ml Output Urine Total 1125 ml Stool Total 0 ml General Appearance: Other (Intubated and sedated) HEENT: Atraumatic Lungs: Other (Mechanical ventilation sounds) Cardiovascular: Regular rate, Normal S1, Normal S2 Abdomen: Normal bowel sounds, Soft Genitourinary: Other (Acosta's) Extremities: Other (Right BKA) Neuro: Other (Intubated and sedated) Skin: Wounds (See nurse notes and pictures) Psych/Mental Status: Other (Intubated and sedated) Medications Current Medications Medications Dose Ordered Sig/John Route Start Time Stop Time Status Last Admin Dose Admin Acetaminophen 650 mg Q6HP PRN PO 02/19/25 13:45 03/09/25 21:36 650 MG Diagnostic Test (Pha) 1 strip ACHS 02/19/25 17:00 03/29/25 17:02 1 STRIP Dextrose 50 ml UD PRN IV 02/19/25 15:45 03/14/25 21:04 50 ML Potassium Chloride 100 ml @ 50 mls/hr Q2H IV 02/19/25 23:15 02/20/25 05:14 Cancel Potassium Chloride 100 ml @ 50 mls/hr Q2H IV 02/20/25 07:15 02/20/25 11:14 UNV Insulin Human Regular ACHS SC 02/28/25 17:00 03/29/25 17:07 2 UNITS Gabapentin 100 mg TID PO 03/02/25 14:00 03/29/25 05:47 100 MG Calcium Acetate 1,334 mg TIDWMEALS PO 03/04/25 12:00 03/27/25 17:48 1,334 MG Ergocalciferol 50,000 unit Q7D PO 03/04/25 11:45 03/25/25 15:05 50,000 UNIT Zirconium Oxide 10 gm TID PO 03/07/25 14:00 Cancel Sodium Bicarbonate 50 ml/ Sodium Chloride 1,050 ml @ 100 mls/hr [id number] IV 03/07/25 11:45 Cancel Fentanyl Citrate 250 ml @ 2.5 mls/hr Q24H IV 03/13/25 02:30 03/28/25 21:20 12.5 MLS/HR Clindamycin Phosphate 50 ml @ 50 mls/hr Q8HR IV 03/13/25 06:00 03/29/25 14:00 50 MLS/HR Pantoprazole Sodium 40 mg BID IV 03/13/25 10:00 03/29/25 10:53 40 MG Albuterol 2.5 mg Q6HR NEB 03/13/25 12:00 03/29/25 18:03 2.5 MG Ipratropium [place] 0.5 mg Q6HR NEB 03/13/25 12:00 03/29/25 18:03 0.5 MG Saccharomyces Boulardii 250 mg DAILY PO 03/14/25 10:00 03/28/25 10:24 250 MG Enteral Nutritional Formula 1,000 ml 30ML/HR GT 03/14/25 08:45 03/28/25 17:07 1,000 ML Metoprolol Tartrate 25 mg BID GT 03/21/25 10:00 03/29/25 10:53 25 MG Duloxetine HCl 30 mg DAILY PO 03/22/25 10:00 03/24/25 10:06 30 MG Lamotrigine 25 mg DAILY PO 03/22/25 10:00 03/28/25 10:24 25 MG Olanzapine 5 mg DAILY PO 03/22/25 10:00 03/29/25 10:53 5 MG Atorvastatin Calcium 80 mg HS PO 03/24/25 22:00 03/28/25 21:15 80 MG Enoxaparin Sodium 40 mg DAILY SC 03/25/25 10:00 03/29/25 10:54 40 MG Aspirin 81 mg DAILY NG 03/25/25 10:00 03/28/25 10:24 81 MG Acetylcysteine 100 mg Q6HR NEB 03/26/25 18:00 03/29/25 18:03 100 MG Cefepime HCl 50 ml @ 12.5 mls/hr Q12HR IV 03/26/25 22:00 03/29/25 10:00 12.5 MLS/HR Midazolam HCl 50 ml @ 1 mls/hr Q24H IV 03/27/25 09:15 03/29/25 05:48 1 MLS/HR Nicardipine/ Sodium Chloride 200 ml @ 50 mls/hr Q4H IV 03/28/25 17:45 Lorazepam 2 mg Q2HPRN PRN IV 03/29/25 16:45 03/29/25 16:49 2 MG Laboratory Results Laboratory Tests 03/29/25 04:22 03/29/25 05:45 Chemistry Test 03/29/25 04:22 Calcium Level 8.6 mg/dL (8.7-10.4) L Magnesium Level 1.7 mg/dL (1.6-2.6) Phosphorus Level 5.2 mg/dL (2.4-5.1) H Urinalysis Test 02/19/25 17:27 03/04/25 05:00 Urine Color Colorless (Yellow) Urine Clarity Clear (Clear) Urine pH 6.5 (5.0-9.0) Urine Specific [place] 1.008 (1.001-1.035) Urine Protein 2+ (Negative) H Urine Ketones 1+ (Negative) H Urine Blood 1+ /uL (Negative) H Urine Nitrite Negative (Negative) Urine Bilirubin Negative (Negative) Urine Urobilinogen Normal mg/dL (Negative) Urine Leukocyte Esterase Negative /uL (Negative) Urine RBC 6 /hpf (0 - 4) Urine Microscopic WBC 2 /HPF (0-5) Urine Squamous Epithelial Cells Few /hpf (<5) Urine Bacteria None seen /hpf (None Seen) Urine Glucose 2+ mg/dL (Normal) H Urine Creatinine 25.51 mg/dL (30.0-125.0) L Urine Protein/Creatinine Ratio 14.00 Urine Sodium 80 mmol/L (40-220) Urine Total Protein 357.1 mg/dL (1-14) H Blood Gas Results Test 03/29/25 06:58 03/29/25 14:37 Arterial Blood pH 7.404 (7.350-7.450) 7.418 (7.350-7.450) FiO2 % 30.0 100.0 Microbiology Microbiology Date/Time Source Procedure Growth Status 03/26/25 17:24 Sputum Gram Stain - Final Resulted 03/26/25 17:24 Sputum Respiratory Culture - Preliminary Resulted 03/13/25 05:10 Blood Blood Culture - Final NO GROWTH AFTER 5 DAYS OF INCUBATION. Complete 03/06/25 14:37 Knee Left Gram Stain - Final Complete 03/06/25 14:37 Knee Left Anaerobic Culture - Final Complete 03/06/25 14:37 Aerobic Culture - Final Staphylococcus aureus Complete 03/04/25 13:29 Aspirate Gram Stain - Final Complete 03/04/25 13:29 Body Fluid Culture - Final Staphylococcus aureus Complete 02/19/25 17:27 Urine - [place] Urine Culture - Final Complete Assessment/Plan Assessment/Plan [facility] note covering new MRI with new stroke compared to prior. restart asa lipitor. although possible cardioembolic, patient was in NSR, last myles with no PFO in bubble. POCUS done, no IJ, subclavian or axilary thrombosis on b/l UE. hyperechic structure seen in [place], likely reverberation from LVOT (positional, doesnt necessarily looks like mass), bubble negative. low suspicion of CSVT. swtiching acosta, TLC. Extubated and now on bipap physical exam Following commands alert PERRLA MMM coarse rhonchi breath sounds s1 s2 RRR abdomen soft R BKA labs ekg imaging reviewed assessment and plan Acute hypoxic/metabolic/toxic encephalopathy Acute hypoxic respiratory failure Severe sepsis with leukocytosis and fever due to soft tissue infection/cellulitis and suspected left knee infection Multiple acute/subacute strokes Electrolytes imbalance with hypokalemia and hypomagnesemia TATIANNA; most likely vasomotor nephropathy in the setting of sepsis; avoid nephrotoxic agents; nephrology is following; morning labs pending; continue monitoring Uncontrolled diabetes mellitus type 2 with hyperglycemia PAD status post right BKA Multiple left foot diabetic ulcers Polysubstance (marijuana and tobacco) use disorder Obesity enalaprilat 6.25 q8 for htn c/w oral antihtn asa rectal transfuse to keep hb >7 deline MYLES for LAITH,LA,LV thrombus or veg c/w rest of management ss for ltach trach and peg diet tf dvt ppx lovenox gi ppx protonix full code prognosis poor condition critical 55 minutes critical care time spent Plan discussed with: Patient Plan discussed with: Other (nurse) My Orders Orders - YOLANDE JOHNSTON MD Procedure Category Date Status Time Lorazepam 2mg/Ml Inj PHA 03/29/25 In Process (Ativan Inj) 16:45 Date of Service: March 29, 2025 Billing Provider: YOLANDE JOHNSTON MD Common Visit Codes: [id number] CARE 30-74 MIN YOLANDE JOHNSTON MD March 29, 2025 18:35
[2025-03-30] VITALS (104 sets, daily range): BP systolic 94–182; BP diastolic 56–100; PULSE 76–103; RESP 12–34; TEMP 93.7–98.8; O2SAT 88–100
[2025-03-30 04:57] LABS: Basophils # (auto) 0.1 10 ^3/uL (0-0.2); Hemoglobin 8.3 g/dL (12.2-16.2); Lymphocytes # (auto) 0.9 10 ^3/uL (0.4-5.4); Monocytes # (auto) 0.8 10 ^3/uL (0-1.3); Platelet Count (auto) 486 10^3/uL (140-450)
[2025-03-30 04:59] LABS: Eosinophils # (auto) 0.2 10 ^3/uL (0-0.8); Eosinophils % (auto) 1.8 % (0.0-7.0); Hematocrit 25.2 % (36.0-46.0); Lymphocytes % (auto) 6.4 % (10.0-50.0); Mean Corpuscular Hemoglobin 27.5 pg (28.0-32.0); Mean Corpuscular Hgb Conc. 32.9 g/dL (32.0-36.0); Mean Corpuscular Volume 83.8 fL (80.0-100.0); Neutrophils # (auto) 11.7 10 ^3/uL (1.6-8.6); Neutrophils % (auto) 84.8 % (37.0-80.0); Red Blood Cells 3.01 10^6/uL (4.0-5.20); Red Cell Distribution Width 15.7 % (11.8-14.3); White Blood Cell 13.7 10^3/uL (4.4-10.8)
[2025-03-30 05:08] LABS: Sodium 142 mmol/L (136-145)
[2025-03-30 05:09] LABS: Anion Gap 11 (5-15); Carbon Dioxide 22 mmol/L (20-31)
[2025-03-30 05:10] LABS: Calcium 9.1 mg/dL (8.7-10.4)
[2025-03-30 05:15] LABS: BUN/Creatinine Ratio 21.8 (10.0-20.0); Blood Urea Nitrogen 34 mg/dL (9-23); Chloride 109 mmol/L (98-107); Glucose 115 mg/dL (74-106)
[2025-03-30] MEDS: POTASSIUM CHL 20MEQ/50ML 50 ML IV SCH (06:55)
[2025-03-30 07:28] LABS: Base Excess -3.9 mmol/L (-2.0-3.0)
--- NOTE | 2025-03-30 14:19 | DVHPN2 ---
Progress Note - Dictate Date Seen: March 30, 2025 Medical Necessity Reason Pt with a Central, PICC or Fol: Yes The following are medically ne: Acosta Catheter Reason for acosta catheter: Strict I&O vital signs Vital Sign Date Time Temp Pulse Resp B/P (MAP) Pulse Ox O2 Delivery O2 Flow Rate FiO2 03/30/25 12:00 18 94 Nasal Cannula* 3 N/A Bi-Pap+ 03/30/25 12:00 98.2 102 103/68 (80) 98.2 Total Intake and Output 03/29/25 03/29/25 03/30/25 15:00 23:00 07:00 Intake Total 192.950 ml 100 ml 50 ml Output Total 850 ml 800 ml Balance 192.950 ml -750 ml -750 ml medications Current Medications Medications Dose Ordered Sig/John Route Start Time Stop Time Status Last Admin Dose Admin Acetaminophen 650 mg Q6HP PRN PO 02/19/25 13:45 03/09/25 21:36 650 MG Diagnostic Test (Pha) 1 strip ACHS 02/19/25 17:00 03/30/25 11:27 1 STRIP Dextrose 50 ml UD PRN IV 02/19/25 15:45 03/14/25 21:04 50 ML Potassium Chloride 100 ml @ 50 mls/hr Q2H IV 02/19/25 23:15 02/20/25 05:14 Cancel Potassium Chloride 100 ml @ 50 mls/hr Q2H IV 02/20/25 07:15 02/20/25 11:14 UNV Insulin Human Regular ACHS SC 02/28/25 17:00 03/29/25 17:07 2 UNITS Gabapentin 100 mg TID PO 03/02/25 14:00 03/29/25 05:47 100 MG Calcium Acetate 1,334 mg TIDWMEALS PO 03/04/25 12:00 03/27/25 17:48 1,334 MG Ergocalciferol 50,000 unit Q7D PO 03/04/25 11:45 03/25/25 15:05 50,000 UNIT Zirconium Oxide 10 gm TID PO 03/07/25 14:00 Cancel Sodium Bicarbonate 50 ml/ Sodium Chloride 1,050 ml @ 100 mls/hr [id number] IV 03/07/25 11:45 Cancel Clindamycin Phosphate 50 ml @ 50 mls/hr Q8HR IV 03/13/25 06:00 03/30/25 14:00 50 MLS/HR Pantoprazole Sodium 40 mg BID IV 03/13/25 10:00 03/30/25 09:30 40 MG Albuterol 2.5 mg Q6HR NEB 03/13/25 12:00 03/30/25 11:41 2.5 MG Ipratropium [place] 0.5 mg Q6HR NEB 03/13/25 12:00 03/30/25 11:41 0.5 MG Saccharomyces Boulardii 250 mg DAILY PO 03/14/25 10:00 03/28/25 10:24 250 MG Enteral Nutritional Formula 1,000 ml 30ML/HR GT 03/14/25 08:45 03/28/25 17:07 1,000 ML Metoprolol Tartrate 25 mg BID GT 03/21/25 10:00 03/29/25 10:53 25 MG Duloxetine HCl 30 mg DAILY PO 03/22/25 10:00 03/24/25 10:06 30 MG Lamotrigine 25 mg DAILY PO 03/22/25 10:00 03/28/25 10:24 25 MG Olanzapine 5 mg DAILY PO 03/22/25 10:00 03/29/25 10:53 5 MG Atorvastatin Calcium 80 mg HS PO 03/24/25 22:00 03/28/25 21:15 80 MG Enoxaparin Sodium 40 mg DAILY SC 03/25/25 10:00 03/30/25 09:30 40 MG Aspirin 81 mg DAILY NG 03/25/25 10:00 03/28/25 10:24 81 MG Acetylcysteine 100 mg Q6HR NEB 03/26/25 18:00 03/30/25 11:42 100 MG Cefepime HCl 50 ml @ 12.5 mls/hr Q12HR IV 03/26/25 22:00 03/30/25 09:30 12.5 MLS/HR Midazolam HCl 50 ml @ 1 mls/hr Q24H IV 03/27/25 09:15 03/29/25 05:48 1 MLS/HR Nicardipine/ Sodium Chloride 200 ml @ 50 mls/hr Q4H IV 03/28/25 17:45 Lorazepam 2 mg Q2HPRN PRN IV 03/29/25 16:45 03/30/25 07:55 2 MG laboratory and microbiology Laboratory Tests 03/30/25 04:28 Test 03/30/25 04:28 Range/Units Serum Glucose 115 H 74-106 mg/dL Assessment/Plan Impression Acute hypoxemic respiratory failure Altered mental status Hx of CVA Sepsis Patient seen and examined in ICU Events Patient was weaned from mechanical ventilation yesterday S/p extubation Required bipap overnight Patient unable to swallow Labs and imaging reviewed ABG reviewed pH 7.47, pCO2 25, pO2 119 Appears stable Tachypnea driven by psychiatric issues Management Supplemental oxygen Titrate to maintain sats 90% or above Aspiration precautions Swallow evaluation Prn bipap Continue antibiotics F/u cultures Bronchodilators Monitor renal function Monitor electrolytes Supplement as needed Continue psych meds Start Precedex drip DVT prophylaxis Critical care time 35 minutes Dietary Evaluation Review Comments: 1) Esau 1 pk BID 2) Refer Frame Nailer on DC 3) Continue current plan of care Expected Outcomes/Goals: Pt will meet >75% estimated needs Fu 3-5 days Plan discussed with: Other (Rn) ARUNA BRISENO MD March 30, 2025 14:19
--- NOTE | 2025-03-30 15:10 | DVHPN2 ---
Subjective in bed on bipap Reviewed: Care Plan, H&P, Labs, Medications, Previous Orders, Radiology, Other (Consultations) Changes from previous H/P or p: No Changes Objective Vitals Vital Signs Date Time Temp Pulse Resp B/P (MAP) Pulse Ox O2 Delivery O2 Flow Rate FiO2 03/30/25 14:15 98.4 97 16 114/66 (82) 95 209.1 03/30/25 14:00 Nasal Cannula* 3 N/A Bi-Pap+ Intake/Output Intake and Output 03/30/25 07:00 Intake Total 342.950 ml Output Total 1650 ml Balance -1307.050 ml Intake Oral 0 ml IV Total 267.950 ml Other 75 ml Output Urine Total 1650 ml General Appearance: Other (Intubated and sedated) HEENT: Atraumatic Lungs: Other (Mechanical ventilation sounds) Cardiovascular: Regular rate, Normal S1, Normal S2 Abdomen: Normal bowel sounds, Soft Genitourinary: Other (Acosta's) Extremities: Other (Right BKA) Neuro: Other (Intubated and sedated) Skin: Wounds (See nurse notes and pictures) Psych/Mental Status: Other (Intubated and sedated) Medications Current Medications Medications Dose Ordered Sig/John Route Start Time Stop Time Status Last Admin Dose Admin Acetaminophen 650 mg Q6HP PRN PO 02/19/25 13:45 03/09/25 21:36 650 MG Diagnostic Test (Pha) 1 strip ACHS 02/19/25 17:00 03/30/25 11:27 1 STRIP Dextrose 50 ml UD PRN IV 02/19/25 15:45 03/14/25 21:04 50 ML Potassium Chloride 100 ml @ 50 mls/hr Q2H IV 02/19/25 23:15 02/20/25 05:14 Cancel Potassium Chloride 100 ml @ 50 mls/hr Q2H IV 02/20/25 07:15 02/20/25 11:14 UNV Insulin Human Regular ACHS SC 02/28/25 17:00 03/29/25 17:07 2 UNITS Gabapentin 100 mg TID PO 03/02/25 14:00 03/29/25 05:47 100 MG Calcium Acetate 1,334 mg TIDWMEALS PO 03/04/25 12:00 03/27/25 17:48 1,334 MG Ergocalciferol 50,000 unit Q7D PO 03/04/25 11:45 03/25/25 15:05 50,000 UNIT Zirconium Oxide 10 gm TID PO 03/07/25 14:00 Cancel Sodium Bicarbonate 50 ml/ Sodium Chloride 1,050 ml @ 100 mls/hr [id number] IV 03/07/25 11:45 Cancel Clindamycin Phosphate 50 ml @ 50 mls/hr Q8HR IV 03/13/25 06:00 03/30/25 14:00 50 MLS/HR Pantoprazole Sodium 40 mg BID IV 03/13/25 10:00 03/30/25 09:30 40 MG Albuterol 2.5 mg Q6HR NEB 03/13/25 12:00 03/30/25 11:41 2.5 MG Ipratropium [place] 0.5 mg Q6HR NEB 03/13/25 12:00 03/30/25 11:41 0.5 MG Saccharomyces Boulardii 250 mg DAILY PO 03/14/25 10:00 03/28/25 10:24 250 MG Enteral Nutritional Formula 1,000 ml 30ML/HR GT 03/14/25 08:45 03/28/25 17:07 1,000 ML Metoprolol Tartrate 25 mg BID GT 03/21/25 10:00 03/29/25 10:53 25 MG Duloxetine HCl 30 mg DAILY PO 03/22/25 10:00 03/24/25 10:06 30 MG Lamotrigine 25 mg DAILY PO 03/22/25 10:00 03/28/25 10:24 25 MG Olanzapine 5 mg DAILY PO 03/22/25 10:00 03/29/25 10:53 5 MG Atorvastatin Calcium 80 mg HS PO 03/24/25 22:00 03/28/25 21:15 80 MG Enoxaparin Sodium 40 mg DAILY SC 03/25/25 10:00 03/30/25 09:30 40 MG Aspirin 81 mg DAILY NG 03/25/25 10:00 03/28/25 10:24 81 MG Acetylcysteine 100 mg Q6HR NEB 03/26/25 18:00 03/30/25 11:42 100 MG Cefepime HCl 50 ml @ 12.5 mls/hr Q12HR IV 03/26/25 22:00 03/30/25 09:30 12.5 MLS/HR Midazolam HCl 50 ml @ 1 mls/hr Q24H IV 03/27/25 09:15 03/29/25 05:48 1 MLS/HR Nicardipine/ Sodium Chloride 200 ml @ 50 mls/hr Q4H IV 03/28/25 17:45 Lorazepam 2 mg Q2HPRN PRN IV 03/29/25 16:45 03/30/25 07:55 2 MG Laboratory Results Laboratory Tests 03/30/25 04:28 Chemistry Test 03/30/25 04:28 Calcium Level 9.1 mg/dL (8.7-10.4) Urinalysis Test 02/19/25 17:27 03/04/25 05:00 Urine Color Colorless (Yellow) Urine Clarity Clear (Clear) Urine pH 6.5 (5.0-9.0) Urine Specific [place] 1.008 (1.001-1.035) Urine Protein 2+ (Negative) H Urine Ketones 1+ (Negative) H Urine Blood 1+ /uL (Negative) H Urine Nitrite Negative (Negative) Urine Bilirubin Negative (Negative) Urine Urobilinogen Normal mg/dL (Negative) Urine Leukocyte Esterase Negative /uL (Negative) Urine RBC 6 /hpf (0 - 4) Urine Microscopic WBC 2 /HPF (0-5) Urine Squamous Epithelial Cells Few /hpf (<5) Urine Bacteria None seen /hpf (None Seen) Urine Glucose 2+ mg/dL (Normal) H Urine Creatinine 25.51 mg/dL (30.0-125.0) L Urine Protein/Creatinine Ratio 14.00 Urine Sodium 80 mmol/L (40-220) Urine Total Protein 357.1 mg/dL (1-14) H Blood Gas Results Test 03/30/25 07:19 Arterial Blood pH 7.479 (7.350-7.450) FiO2 % 30.0 Microbiology Microbiology Date/Time Source Procedure Growth Status 03/26/25 17:24 Sputum Gram Stain - Final Resulted 03/26/25 17:24 Sputum Respiratory Culture - Preliminary Resulted 03/13/25 05:10 Blood Blood Culture - Final NO GROWTH AFTER 5 DAYS OF INCUBATION. Complete 03/06/25 14:37 Knee Left Gram Stain - Final Complete 03/06/25 14:37 Knee Left Anaerobic Culture - Final Complete 03/06/25 14:37 Aerobic Culture - Final Staphylococcus aureus Complete 03/04/25 13:29 Aspirate Gram Stain - Final Complete 03/04/25 13:29 Body Fluid Culture - Final Staphylococcus aureus Complete 02/19/25 17:27 Urine - [place] Urine Culture - Final Complete Assessment/Plan Assessment/Plan [facility] note covering new MRI with new stroke compared to prior. restart asa lipitor. although possible cardioembolic, patient was in NSR, last myles with no PFO in bubble. POCUS done, no IJ, subclavian or axilary thrombosis on b/l UE. hyperechic structure seen in [place], likely reverberation from LVOT (positional, doesnt necessarily looks like mass), bubble negative. low suspicion of CSVT. swtiching acosta, TLC. Extubated and now on bipap physical exam Following commands alert PERRLA MMM coarse rhonchi breath sounds s1 s2 RRR abdomen soft R BKA labs ekg imaging reviewed assessment and plan Acute hypoxic/metabolic/toxic encephalopathy Acute hypoxic respiratory failure Severe sepsis with leukocytosis and fever due to soft tissue infection/cellulitis and suspected left knee infection Multiple acute/subacute strokes Electrolytes imbalance with hypokalemia and hypomagnesemia TATIANNA; most likely vasomotor nephropathy in the setting of sepsis; avoid nephrotoxic agents; nephrology is following; morning labs pending; continue monitoring Uncontrolled diabetes mellitus type 2 with hyperglycemia PAD status post right BKA Multiple left foot diabetic ulcers Polysubstance (marijuana and tobacco) use disorder Obesity enalaprilat 6.25 q8 for htn c/w oral antihtn asa rectal transfuse to keep hb >7 deline MYLES for LAITH,LA,LV thrombus or veg c/w rest of management ss for ltach trach and peg diet tf dvt ppx lovenox gi ppx protonix full code prognosis poor condition critical 55 minutes critical care time spent Plan discussed with: Patient Plan discussed with: Patient My Orders Orders - YOLANDE JOHNSTON MD Procedure Category Date Status Time Lorazepam 2mg/Ml Inj PHA 03/29/25 In Process (Ativan Inj) 16:45 Cleanse Wound With HAYDER 03/30/25 In Process Mild Soap A 12:15 * Swallow Request ST 03/30/25 Transmitted 14:59 Date of Service: March 30, 2025 Billing Provider: YOLANDE JOHNSTON MD Common Visit Codes: [id number] CARE 30-74 MIN YOLANDE JOHNSTON MD March 30, 2025 15:10
[2025-03-30] MEDS: InsuLIN REG 1unit/0.01ml Soln (100units/ml) SC SCH (22:00)
[2025-03-30] MEDS: hydrALAZINE HCL 20 MG/ML VL IV ONE (23:16)
--- NOTE | 2025-03-30 23:25 | DVHPN2 ---
Progress Note - Dictate Date Seen: March 30, 2025 Medical Necessity Reason Pt with a Central, PICC or Fol: Yes The following are medically ne: Acosta Catheter Reason for acosta catheter: Strict I&O Subjective Patient was seen and evaluated in follow up in the ICU. Patient is on 3 LPM NC. Patient is agitated. WBC 13.7, HGB 8.3, HCT 25.2, K 3, BUN 34, QUALITY TECH 1.56. vital signs Vital Sign Date Time Temp Pulse Resp B/P (MAP) Pulse Ox O2 Delivery O2 Flow Rate FiO2 03/30/25 12:00 18 94 Nasal Cannula* 3 N/A Bi-Pap+ 03/30/25 12:00 98.2 102 103/68 (80) 98.2 Total Intake and Output 03/29/25 03/29/25 03/30/25 15:00 23:00 07:00 Intake Total 192.950 ml 100 ml 50 ml Output Total 850 ml 800 ml Balance 192.950 ml -750 ml -750 ml medications Current Medications Medications Dose Ordered Sig/John Route Start Time Stop Time Status Last Admin Dose Admin Acetaminophen 650 mg Q6HP PRN PO 02/19/25 13:45 03/09/25 21:36 650 MG Diagnostic Test (Pha) 1 strip ACHS 02/19/25 17:00 03/30/25 11:27 1 STRIP Dextrose 50 ml UD PRN IV 02/19/25 15:45 03/14/25 21:04 50 ML Potassium Chloride 100 ml @ 50 mls/hr Q2H IV 02/19/25 23:15 02/20/25 05:14 Cancel Potassium Chloride 100 ml @ 50 mls/hr Q2H IV 02/20/25 07:15 02/20/25 11:14 UNV Insulin Human Regular ACHS SC 02/28/25 17:00 03/29/25 17:07 2 UNITS Gabapentin 100 mg TID PO 03/02/25 14:00 03/29/25 05:47 100 MG Calcium Acetate 1,334 mg TIDWMEALS PO 03/04/25 12:00 03/27/25 17:48 1,334 MG Ergocalciferol 50,000 unit Q7D PO 03/04/25 11:45 03/25/25 15:05 50,000 UNIT Zirconium Oxide 10 gm TID PO 03/07/25 14:00 Cancel Sodium Bicarbonate 50 ml/ Sodium Chloride 1,050 ml @ 100 mls/hr [id number] IV 03/07/25 11:45 Cancel Clindamycin Phosphate 50 ml @ 50 mls/hr Q8HR IV 03/13/25 06:00 03/30/25 05:15 50 MLS/HR Pantoprazole Sodium 40 mg BID IV 03/13/25 10:00 03/30/25 09:30 40 MG Albuterol 2.5 mg Q6HR NEB 03/13/25 12:00 03/30/25 11:41 2.5 MG Ipratropium [place] 0.5 mg Q6HR NEB 03/13/25 12:00 03/30/25 11:41 0.5 MG Saccharomyces Boulardii 250 mg DAILY PO 03/14/25 10:00 03/28/25 10:24 250 MG Enteral Nutritional Formula 1,000 ml 30ML/HR GT 03/14/25 08:45 03/28/25 17:07 1,000 ML Metoprolol Tartrate 25 mg BID GT 03/21/25 10:00 03/29/25 10:53 25 MG Duloxetine HCl 30 mg DAILY PO 03/22/25 10:00 03/24/25 10:06 30 MG Lamotrigine 25 mg DAILY PO 03/22/25 10:00 03/28/25 10:24 25 MG Olanzapine 5 mg DAILY PO 03/22/25 10:00 03/29/25 10:53 5 MG Atorvastatin Calcium 80 mg HS PO 03/24/25 22:00 03/28/25 21:15 80 MG Enoxaparin Sodium 40 mg DAILY SC 03/25/25 10:00 03/30/25 09:30 40 MG Aspirin 81 mg DAILY NG 03/25/25 10:00 03/28/25 10:24 81 MG Acetylcysteine 100 mg Q6HR NEB 03/26/25 18:00 03/30/25 11:42 100 MG Cefepime HCl 50 ml @ 12.5 mls/hr Q12HR IV 03/26/25 22:00 03/30/25 09:30 12.5 MLS/HR Midazolam HCl 50 ml @ 1 mls/hr Q24H IV 03/27/25 09:15 03/29/25 05:48 1 MLS/HR Nicardipine/ Sodium Chloride 200 ml @ 50 mls/hr Q4H IV 03/28/25 17:45 Lorazepam 2 mg Q2HPRN PRN IV 03/29/25 16:45 03/30/25 07:55 2 MG objective GENERAL: Awake. EYES: PERRL, EOMI. Anicteric. HENT: Moist mucous membranes. LUNGS: Decreased breath sounds. CARDIOVASCULAR: Regular rate and rhythm. ABDOMEN: Soft, non-tender and non-distended. EXTREMITIES: No edema. SKIN: Warm, dry. laboratory and microbiology Laboratory Tests 03/30/25 04:28 Test 03/30/25 04:28 Range/Units Serum Glucose 115 H 74-106 mg/dL Problem List Multiple acute/subacute strokes. Hypokalemia. Acute kidney injury. Hypertension, newly diagnosed. Insulin-dependent diabetes mellitus. Status post right BKA. Dyslipidemia. Polysubstance use disorder. Left lower extremity cellulitis. Peripheral vascular disease status post right [id number] amputation 6 months ago. Sepsis. Diabetic neuropathy. Assessment/Plan Continued all current supportive medical care. Aspirin, Lipitor, Metoprolol. IV antibiotics as ordered. DVT and GI prophylactics. IV Hydralazine for SBP >160. Additional plan as per the hospital course. Critical care time of 45 minutes provided to include time spent evaluation of patient at bedside, when appropriate patient/family education for diagnosis, treatment plan, review of pertinent medical information and discussion of care with specialty providers and PCP. Dietary Evaluation Review Comments: 1) Esau 1 pk BID 2) Refer Marine Cargo Surveyor on DC 3) Continue current plan of care Expected Outcomes/Goals: Pt will meet >75% estimated needs Fu 3-5 days Plan discussed with: Patient YANIRA WINN MD March 30, 2025 13:41
[2025-03-31] VITALS (84 sets, daily range): BP systolic 113–186; BP diastolic 59–117; PULSE 77–108; RESP 11–34; TEMP 96.1–99; O2SAT 88–100
--- NOTE | 2025-03-31 05:28 | DVH ---
CHEST RADIOGRAPH Indication: follow-up Technique: Single frontal view of the chest was obtained COMPARISON: XY CHEST PORTABLE on DOS: 03/29/25, XY CHEST XRAY 1 VIEW on DOS: 03/28/25, XY CHEST XRAY 1 EW on DOS: 03/27/25, XY CHEST PORTABLE on DOS: 03/26/25, XY CHEST PORTABLE on DOS: 03/26/25 FINDINGS: Lines and Tubes: Left central venous catheter in satisfactory position overlying the superior vena ca va. Lungs: Congestion Pleura: No effusion. No pneumothorax. Cardiomediastinal contours: Unremarkable Bones: Unremarkable IMPRESSION: Mild congestion.
[2025-03-31 05:29] LABS: Basophils # (auto) 0.1 10 ^3/uL (0-0.2); Eosinophils # (auto) 0.3 10 ^3/uL (0-0.8); Hematocrit 25.4 % (36.0-46.0); Hemoglobin 8.4 g/dL (12.2-16.2); Mean Corpuscular Hemoglobin 27.9 pg (28.0-32.0); Mean Corpuscular Hgb Conc. 33.1 g/dL (32.0-36.0); Mean Corpuscular Volume 84.3 fL (80.0-100.0); Monocytes # (auto) 0.7 10 ^3/uL (0-1.3); Monocytes % (auto) 5.1 % (0.0-12.0); Neutrophils # (auto) 10.7 10 ^3/uL (1.6-8.6); Neutrophils % (auto) 83.9 % (37.0-80.0); Platelet Count (auto) 503 10^3/uL (140-450); Red Blood Cells 3.02 10^6/uL (4.0-5.20); Red Cell Distribution Width 15.6 % (11.8-14.3); White Blood Cell 12.7 10^3/uL (4.4-10.8)
[2025-03-31 05:53] LABS: Anion Gap 11 (5-15); Aspartate Aminotransferase 18 U/L (13-40); BUN/Creatinine Ratio 21.4 (10.0-20.0); Carbon Dioxide 21 mmol/L (20-31)
[2025-03-31 06:01] LABS: Alanine Aminotransferase < 9 U/L (7-40); Albumin 2.6 g/dL (3.2-4.8); Alkaline Phosphatase 230 U/L (46-116); Bilirubin, Total 0.2 mg/dL (0.2-1.0); Blood Urea Nitrogen 33 mg/dL (9-23); Chloride 113 mmol/L (98-107); Glucose 120 mg/dL (74-106); Potassium 2.9 mmol/L (3.5-5.1); Sodium 145 mmol/L (136-145); Total Protein 5.5 g/dL (5.7-8.2)
[2025-03-31 09:37] LABS: Base Excess -5.5 mmol/L (-2.0-3.0)
--- NOTE | 2025-03-31 11:04 | DVHPN2 ---
Progress Note - Dictate Date Seen: March 31, 2025 Medical Necessity Reason Pt with a Central, PICC or Fol: Yes The following are medically ne: Acosta Catheter Reason for acosta catheter: Strict I&O Subjective Mr. Kaur is a 54 years old right-handed female with a history of hypertension, diabetes, dyslipidemia, anxiety, GERD, osteo myelitis status post right BKA, she came to the [facility] on 02/19/25 with a chief complaint of general weakness. He was transferred/ICU on 03/13/25 for ALOC, nasal bleeding and intubation I have seen and examined the patient, I have talked to her nurse, she has been successfully extubated, she is awake, oriented to herself only, follows commands, good social skills, her voice is clear strong, she can move the arms and legs Psychiatry consultation, 02/26/25: 1:1 sitter. Transferred to inpatient psychiatric facility. Cymbalta 30 mg b.i.d. ABG, 03/13/2025: Unremarkable UDS, 02/19/2025: Cannabinoids Plasma alcohol, 02/19/2025: 3 Urinalysis, 02/19, : WBC: 2, urine leukocyte esterase WBC/HB/PLT/MCV, 02/20/2025: 21.9/10.9/398/83.1, 03/13/2025: 11.7/6.5/424/85.4 PT/INR/PTT, 03/13/2025: 10.6/1/38.6 K, 02/19/2025: 1.7, 02/20/2025: 2.1 BUN/CR, 02/20/2025: 33/2.03, 03/13/2025: 51.93 HGB A1c, 06/03/2024: 13.1 Liver function tests, 02/20/2025: Unremarkable TG/HDL/LDL/HDL, 04/11/2024: 180/238/164/43 MAGALIS, 02/21/2025: 1. Technically good study. Sinus rhythm. 2. Left atrial enlargement. 3. Number Valves appear to be structurally normal. 4. Ventricular systolic function is preserved at 60% with normal RV function. 5. Doppler reveals mild TR. No significant mitral or aortic insufficiency. No atrial septal or ventricular septal defects 6. No masses or vegetations discernible. 7. The atrial appendage looks clean, no masses. No atrial or ventricular septal defects as noted. No abnormal shunting. Bubble study was negative 8. The valves appear to be structurally normal. No vegetations or signs of emboli present. Carotid Doppler, 02/20/2025: No hemodynamically significant stenosis noted in the right carotid system. No hemodynamically significant stenosis noted in the left carotid system. Chest X-ray, 03/19/25: 1. Endotracheal tube terminates 4cm from caleb. Other lines and tubes are unchanged in position. 2. Bilateral airspace disease similar to prior study. CT head, : Small age-indeterminate infarct extending from the right jorge radiata into the right basal ganglia. Further evaluation with MRI brain with diffusion-weighted imaging is recommended. CT head, , No acute intracranial abnormality. Multiple subacute bilateral lacunar infarcts as seen on prior MRI. MRI head, 02/19/2025: 1. There are multiple small foci of acute to subacute infarct in the right jorge radiata and right basal ganglia. There are also multiple small acute to subacute infarcts in the left anteromedial frontal lobe and in the left jorge radiata and left basal ganglia. There is no evidence of acute hemorrhage MR head, 03/21/2025: 1. Multiple foci of restricted diffusion involving the left corpus callosum, bilateral basal ganglia and right jorge radiata. The largest area involves the left splenium of the corpus callosum. These likely represent acute to subacute infarcts. There is no evidence of acute hemorrhage. 2. Moderate amount of fluid in the bilateral mastoid air cells MRI left foot, 02/22/25: Moderate dorsal subcutaneous edema. No evidence of osteomyelitis. No drainable fluid collection noted. Moderate myositis. vital signs Vital Sign Date Time Temp Pulse Resp B/P (MAP) Pulse Ox O2 Delivery O2 Flow Rate FiO2 03/31/25 10:00 20 94 Nasal Cannula* 3 32 03/31/25 09:15 86 137/76 (96) 03/31/25 08:00 98.8 98.8 Total Intake and Output 03/30/25 03/30/25 03/31/25 14:59 22:59 06:59 Intake Total 164 ml 106.72 ml 111.030 ml Output Total 850 ml 1475 ml Balance 164 ml -743.28 ml -1363.970 ml medications Current Medications Medications Dose Ordered Sig/John Route Start Time Stop Time Status Last Admin Dose Admin Acetaminophen 650 mg Q6HP PRN PO 02/19/25 13:45 03/09/25 21:36 650 MG Diagnostic Test (Pha) 1 strip ACHS 02/19/25 17:00 03/31/25 07:00 1 STRIP Dextrose 50 ml UD PRN IV 02/19/25 15:45 03/14/25 21:04 50 ML Potassium Chloride 100 ml @ 50 mls/hr Q2H IV 02/19/25 23:15 02/20/25 05:14 Cancel Potassium Chloride 100 ml @ 50 mls/hr Q2H IV 02/20/25 07:15 02/20/25 11:14 UNV Gabapentin 100 mg TID PO 03/02/25 14:00 03/29/25 05:47 100 MG Calcium Acetate 1,334 mg TIDWMEALS PO 03/04/25 12:00 03/27/25 17:48 1,334 MG Ergocalciferol 50,000 unit Q7D PO 03/04/25 11:45 03/25/25 15:05 50,000 UNIT Zirconium Oxide 10 gm TID PO 03/07/25 14:00 Cancel Sodium Bicarbonate 50 ml/ Sodium Chloride 1,050 ml @ 100 mls/hr [id number] IV 03/07/25 11:45 Cancel Pantoprazole Sodium 40 mg BID IV 03/13/25 10:00 03/30/25 21:49 40 MG Albuterol 2.5 mg Q6HR NEB 03/13/25 12:00 03/31/25 06:13 2.5 MG Ipratropium [place] 0.5 mg Q6HR NEB 03/13/25 12:00 03/31/25 06:14 0.5 MG Saccharomyces Boulardii 250 mg DAILY PO 03/14/25 10:00 03/28/25 10:24 250 MG Enteral Nutritional Formula 1,000 ml 30ML/HR GT 03/14/25 08:45 03/28/25 17:07 1,000 ML Metoprolol Tartrate 25 mg BID GT 03/21/25 10:00 03/29/25 10:53 25 MG Duloxetine HCl 30 mg DAILY PO 03/22/25 10:00 03/24/25 10:06 30 MG Lamotrigine 25 mg DAILY PO 03/22/25 10:00 03/28/25 10:24 25 MG Olanzapine 5 mg DAILY PO 03/22/25 10:00 03/29/25 10:53 5 MG Atorvastatin Calcium 80 mg HS PO 03/24/25 22:00 03/28/25 21:15 80 MG Enoxaparin Sodium 40 mg DAILY SC 03/25/25 10:00 03/31/25 10:08 40 MG Aspirin 81 mg DAILY NG 03/25/25 10:00 03/28/25 10:24 81 MG Acetylcysteine 100 mg Q6HR NEB 03/26/25 18:00 03/31/25 06:25 100 MG Midazolam HCl 50 ml @ 1 mls/hr Q24H IV 03/27/25 09:15 03/29/25 05:48 1 MLS/HR Nicardipine/ Sodium Chloride 200 ml @ 50 mls/hr Q4H IV 03/28/25 17:45 Lorazepam 2 mg Q2HPRN PRN IV 03/29/25 16:45 03/31/25 04:03 2 MG Insulin Human Regular ACHS SC 03/30/25 22:00 Piperacillin Sod/ Tazobactam Sod 100 ml @ 25 mls/hr Q8HR IV 03/31/25 14:00 UNV objective The patient is well-nourished and well-developed with no distress. MUSCULOSKELETAL EXAM: Status post right BKA MENTAL STATUS: Subjective CRANIAL NERVES: Pupils are equal round and reactive to light briskly, normal external eye movement, normal sensation and motor examination in the lateral trigeminal nerve distribution, no facial weaknes SENSATION: responses to pain stimuli. MOTOR: Normal tone in the upper and lower extremity. Normal muscle bulk. No fasciculations. She moves extremities, muscle power in the right extremities: 4/5, muscle power in the left extremities: Upper: 3/5, lower: 2-3/5 REFLEXES: Deep tendon reflexes are symmetrical. No pathological reflexes. CEREBELLAR/COORDINATION: Deferred GAIT/STATION: deferred. laboratory and microbiology Laboratory Tests 03/31/25 04:58 Test 03/31/25 04:58 Range/Units Serum Glucose 120 H 74-106 mg/dL Problem List Acute respiratory failure Excessive nasal bleeding Come company resolved Metabolic encephalopathy Hypoxic encephalopathy Toxic encephalopathy General weakness Multiple acute/subacute strokes (MRI head: 02/19/2025, 03/21/2025) Status post right BKA Depression Assessment/Plan Monitoring Supportive treatment ICU Stabilize vitals Respiratory support/vent management Oxygen Antibiotics Aspirin 81 mg daily Lipitor 80mg Qd Cymbalta 30 mg b.i.d. DVT prophylaxis/Lovenox Quit tobacco smoking completely More recommendation per clinical course This medical document was created using an electronic medical record system with [employer] dictation system. Although this document has been carefully reviewed, there may still be some phonetic and typographical errors. These areas are purely typographical due to imperfections of the software programs, and do not reflect any compromise in the patient's medical care. Prognosis Poor Dietary Evaluation Review Comments: 1) Esau 1 pk BID 2) Refer Reconciliation Accountant on DC 3) Continue current plan of care Expected Outcomes/Goals: Pt will meet >75% estimated needs Fu 3-5 days Plan discussed with: Other NEELA RUEDA MD March 31, 2025 11:04
--- NOTE | 2025-03-31 12:14 | DVHPN2 ---
Subjective Intubated and sedated Reviewed: Care Plan, H&P, Labs, Medications, Previous Orders, Radiology, Other (Consultations) Changes from previous H/P or p: No Changes Objective Vitals Vital Signs Date Time Temp Pulse Resp B/P (MAP) Pulse Ox O2 Delivery O2 Flow Rate FiO2 03/31/25 12:01 97 Nasal Cannula 4.0 03/31/25 12:01 36 03/31/25 12:01 96 20 03/31/25 09:15 137/76 (96) 03/31/25 08:00 98.8 98.8 Intake/Output Intake and Output 03/31/25 07:00 Intake Total 381.750 ml Output Total 2325 ml Balance -1943.250 ml Intake Oral 0 ml IV Total 381.750 ml Tube Feeding 0 ml Blood Product 0 ml Intraperitoneal 0 ml Other 0 ml Output Urine Total 2325 ml Stool Total 0 ml Gastric Drainage Total 0 ml Emesis 0 ml Chest Tube Drainage Total 0 ml Drainage Total 0 ml Blood Draw 0 ml Other 0 ml Exam Assess patient will sitting in her wheelchair. General Appearance: Alert, Cooperative HEENT: Atraumatic Lungs: Other (Mechanical ventilation sounds) Cardiovascular: Regular rate, Normal S1, Normal S2 Abdomen: Normal bowel sounds, Soft Genitourinary: Other (Almaraz's) Extremities: Other (Right BKA) Neuro: Cranial nerves 3-12 NL, Other (Intubated and sedated) Skin: Dry, Intact, Wounds (See nurse notes and pictures) Psych/Mental Status: Other (Intubated and sedated) Medications Current Medications Medications Dose Ordered Sig/John Route Start Time Stop Time Status Last Admin Dose Admin Acetaminophen 650 mg Q6HP PRN PO 02/19/25 13:45 03/09/25 21:36 650 MG Diagnostic Test (Pha) 1 strip ACHS 02/19/25 17:00 03/31/25 07:00 1 STRIP Dextrose 50 ml UD PRN IV 02/19/25 15:45 03/14/25 21:04 50 ML Potassium Chloride 100 ml @ 50 mls/hr Q2H IV 02/19/25 23:15 02/20/25 05:14 Cancel Potassium Chloride 100 ml @ 50 mls/hr Q2H IV 02/20/25 07:15 02/20/25 11:14 UNV Gabapentin 100 mg TID PO 03/02/25 14:00 03/29/25 05:47 100 MG Calcium Acetate 1,334 mg TIDWMEALS PO 03/04/25 12:00 03/27/25 17:48 1,334 MG Ergocalciferol 50,000 unit Q7D PO 03/04/25 11:45 03/25/25 15:05 50,000 UNIT Zirconium Oxide 10 gm TID PO 03/07/25 14:00 Cancel Sodium Bicarbonate 50 ml/ Sodium Chloride 1,050 ml @ 100 mls/hr [id number] IV 03/07/25 11:45 Cancel Pantoprazole Sodium 40 mg BID IV 03/13/25 10:00 03/30/25 21:49 40 MG Albuterol 2.5 mg Q6HR NEB 03/13/25 12:00 03/31/25 12:01 2.5 MG Ipratropium [place] 0.5 mg Q6HR NEB 03/13/25 12:00 03/31/25 12:01 0.5 MG Saccharomyces Boulardii 250 mg DAILY PO 03/14/25 10:00 03/28/25 10:24 250 MG Enteral Nutritional Formula 1,000 ml 30ML/HR GT 03/14/25 08:45 03/28/25 17:07 1,000 ML Metoprolol Tartrate 25 mg BID GT 03/21/25 10:00 03/29/25 10:53 25 MG Duloxetine HCl 30 mg DAILY PO 03/22/25 10:00 03/24/25 10:06 30 MG Lamotrigine 25 mg DAILY PO 03/22/25 10:00 03/28/25 10:24 25 MG Olanzapine 5 mg DAILY PO 03/22/25 10:00 03/29/25 10:53 5 MG Atorvastatin Calcium 80 mg HS PO 03/24/25 22:00 03/28/25 21:15 80 MG Enoxaparin Sodium 40 mg DAILY SC 03/25/25 10:00 03/31/25 10:08 40 MG Aspirin 81 mg DAILY NG 03/25/25 10:00 03/28/25 10:24 81 MG Acetylcysteine 100 mg Q6HR NEB 03/26/25 18:00 03/31/25 12:01 100 MG Midazolam HCl 50 ml @ 1 mls/hr Q24H IV 03/27/25 09:15 03/29/25 05:48 1 MLS/HR Nicardipine/ Sodium Chloride 200 ml @ 50 mls/hr Q4H IV 03/28/25 17:45 Lorazepam 2 mg Q2HPRN PRN IV 03/29/25 16:45 03/31/25 04:03 2 MG Insulin Human Regular ACHS SC 03/30/25 22:00 Piperacillin Sod/ Tazobactam Sod 100 ml @ 25 mls/hr Q8HR IV 03/31/25 14:00 Laboratory Results Laboratory Tests 03/31/25 04:58 Chemistry Test 03/31/25 04:58 Albumin 2.6 g/dL (3.2-4.8) L Calcium Level 9.0 mg/dL (8.7-10.4) Total Protein 5.5 g/dL (5.7-8.2) L LFT Test 03/31/25 04:58 Alanine Aminotransferase (ALT) < 9 U/L (7-40) Alkaline Phosphatase 230 U/L (46-116) H Aspartate Amino Transferase (AST) 18 U/L (13-40) Total Bilirubin 0.2 mg/dL (0.2-1.0) Urinalysis Test 02/19/25 17:27 03/04/25 05:00 Urine Color Colorless (Yellow) Urine Clarity Clear (Clear) Urine pH 6.5 (5.0-9.0) Urine Specific [place] 1.008 (1.001-1.035) Urine Protein 2+ (Negative) H Urine Ketones 1+ (Negative) H Urine Blood 1+ /uL (Negative) H Urine Nitrite Negative (Negative) Urine Bilirubin Negative (Negative) Urine Urobilinogen Normal mg/dL (Negative) Urine Leukocyte Esterase Negative /uL (Negative) Urine RBC 6 /hpf (0 - 4) Urine Microscopic WBC 2 /HPF (0-5) Urine Squamous Epithelial Cells Few /hpf (<5) Urine Bacteria None seen /hpf (None Seen) Urine Glucose 2+ mg/dL (Normal) H Urine Creatinine 25.51 mg/dL (30.0-125.0) L Urine Protein/Creatinine Ratio 14.00 Urine Sodium 80 mmol/L (40-220) Urine Total Protein 357.1 mg/dL (1-14) H Blood Gas Results Test 03/31/25 09:22 Arterial Blood pH 7.445 (7.350-7.450) FiO2 % 36.0 Microbiology Microbiology Date/Time Source Procedure Growth Status 03/26/25 17:24 Sputum Gram Stain - Final Resulted 03/26/25 17:24 Sputum Respiratory Culture - Preliminary Resulted 03/13/25 05:10 Blood Blood Culture - Final NO GROWTH AFTER 5 DAYS OF INCUBATION. Complete 03/06/25 14:37 Knee Left Gram Stain - Final Complete 03/06/25 14:37 Knee Left Anaerobic Culture - Final Complete 03/06/25 14:37 Aerobic Culture - Final Staphylococcus aureus Complete 03/04/25 13:29 Aspirate Gram Stain - Final Complete 03/04/25 13:29 Body Fluid Culture - Final Staphylococcus aureus Complete 02/19/25 17:27 Urine - [place] Urine Culture - Final Complete Labs and/or images reviewed: Labs reviewed by me, Image(s) reviewed by me Assessment/Plan Assessment/Plan Impression: Multiple acute/subacute strokes Left lower extremity cellulitis Rule out left septic knee Hypokalemia Acute kidney injury likely hemodynamically mediated due to vasomotor nephropathy Chronic kidney disease Peripheral vascular disease status post right [id number] amputation 6 months ago Poorly controlled type 2 diabetes Sepsis Hypertension Mixed hyperlipidemia Polysubstance use disorder Diabetic neuropathy -? Suicidal ideation -septic bursitis with Staphylococcus aureus -septic shock Angioedema of the tongue Plan: -events: Patient was extubated yesterday. Noted to lethargy this a.m., probably secondary to sedatives. Precedex stopped. -PUD prophylaxis -continue Nepro -swallow evaluation -bronchodilators -stop antibiotic course, changed to Meropenem given growth of Pseudomonas in sputum -pulse dose of Lasix -continue PPI Repeat labs and chest x-ray in a.m. Critical care time spent with patient discussing and formulating plan of care: 40 minutes. This does not include time spent performing procedures. This medical document was created using an electronic medical record system with [employer] dictation system. Although this document has been carefully reviewed, there may still be some phonetic and typographical errors. These areas are purely typographical due to imperfections of the software programs, and do not reflect any compromise in the patient's medical care. Plan discussed with: Patient, Other (RN) My Orders Orders - JUSTIN BONILLA NP Procedure Category Date Status Time Piperacillin-Tazob PHA 03/31/25 In Process 3.375gm (Zosyn 3.375g 14:00 Basic Metabolic Panel LAB 04/01/25 Verified 04:00 Complete Blood Count LAB 04/01/25 Verified 04:00 Date of Service: March 31, 2025 Billing Provider: JUSTIN BONILLA NP Common Visit Codes: [id number] CARE 30-74 MIN JUSTIN BONILLA NP March 31, 2025 12:14
[2025-03-31] MEDS: POTASSIUM CHL 20MEQ/50ML 50 ML IV ONE (12:39)
[2025-03-31 13:34] LABS: Eosinophils # (auto) 0.2 10 ^3/uL (0-0.8); Hemoglobin 8.8 g/dL (12.2-16.2)
[2025-03-31 13:36] LABS: Basophils # (auto) 0.1 10 ^3/uL (0-0.2); Eosinophils % (auto) 1.5 % (0.0-7.0); Hematocrit 27.5 % (36.0-46.0); Lymphocytes # (auto) 1.4 10 ^3/uL (0.4-5.4); Lymphocytes % (auto) 10.4 % (10.0-50.0); Mean Corpuscular Hemoglobin 27.3 pg (28.0-32.0); Mean Corpuscular Hgb Conc. 31.9 g/dL (32.0-36.0); Mean Corpuscular Volume 85.8 fL (80.0-100.0); Monocytes # (auto) 0.5 10 ^3/uL (0-1.3); Monocytes % (auto) 3.8 % (0.0-12.0); Neutrophils # (auto) 11.2 10 ^3/uL (1.6-8.6); Neutrophils % (auto) 83.3 % (37.0-80.0); Platelet Count (auto) 544 10^3/uL (140-450); Red Blood Cells 3.21 10^6/uL (4.0-5.20); Red Cell Distribution Width 15.9 % (11.8-14.3); White Blood Cell 13.4 10^3/uL (4.4-10.8)
[2025-03-31] MEDS: PIPERACILLIN-TAZOB 3.375GM 100 ML IV SCH (14:37)
[2025-03-31] MEDS: METOPROLOL TARTRATE 25 MG TAB PO SCH (22:00)
--- NOTE | 2025-03-31 22:24 | DVHPN2 ---
Progress Note - Dictate Date Seen: March 31, 2025 Medical Necessity Reason Pt with a Central, PICC or Fol: Yes The following are medically ne: Acosta Catheter Reason for acosta catheter: Strict I&O Subjective Patient was seen and evaluated in follow up in the ICU. Patient is on 3 LPM NC. Patient is agitated. Patient remain NPO at this time. WBC 1334, HGB 8.8, HCT 27.5. vital signs Vital Sign Date Time Temp Pulse Resp B/P (MAP) Pulse Ox O2 Delivery O2 Flow Rate FiO2 03/31/25 20:30 97.4 100 16 167/84 (111) 93 97.4 03/31/25 20:00 Nasal Cannula* 3 32 Total Intake and Output 03/30/25 03/30/25 03/31/25 15:00 23:00 07:00 Intake Total 221 ml 56.90 ml 111.030 ml Output Total 850 ml 1475 ml Balance 221 ml -793.10 ml -1363.970 ml medications Current Medications Medications Dose Ordered Sig/John Route Start Time Stop Time Status Last Admin Dose Admin Acetaminophen 650 mg Q6HP PRN PO 02/19/25 13:45 03/09/25 21:36 650 MG Diagnostic Test (Pha) 1 strip ACHS 02/19/25 17:00 03/31/25 17:00 1 STRIP Dextrose 50 ml UD PRN IV 02/19/25 15:45 03/14/25 21:04 50 ML Potassium Chloride 100 ml @ 50 mls/hr Q2H IV 02/19/25 23:15 02/20/25 05:14 Cancel Potassium Chloride 100 ml @ 50 mls/hr Q2H IV 02/20/25 07:15 02/20/25 11:14 UNV Gabapentin 100 mg TID PO 03/02/25 14:00 03/29/25 05:47 100 MG Calcium Acetate 1,334 mg TIDWMEALS PO 03/04/25 12:00 03/27/25 17:48 1,334 MG Ergocalciferol 50,000 unit Q7D PO 03/04/25 11:45 03/25/25 15:05 50,000 UNIT Zirconium Oxide 10 gm TID PO 03/07/25 14:00 Cancel Sodium Bicarbonate 50 ml/ Sodium Chloride 1,050 ml @ 100 mls/hr [id number] IV 03/07/25 11:45 Cancel Pantoprazole Sodium 40 mg BID IV 03/13/25 10:00 03/31/25 21:43 40 MG Albuterol 2.5 mg Q6HR NEB 03/13/25 12:00 03/31/25 18:26 2.5 MG Ipratropium [place] 0.5 mg Q6HR NEB 03/13/25 12:00 03/31/25 18:26 0.5 MG Saccharomyces Boulardii 250 mg DAILY PO 03/14/25 10:00 03/28/25 10:24 250 MG Enteral Nutritional Formula 1,000 ml 30ML/HR GT 03/14/25 08:45 03/28/25 17:07 1,000 ML Duloxetine HCl 30 mg DAILY PO 03/22/25 10:00 03/24/25 10:06 30 MG Lamotrigine 25 mg DAILY PO 03/22/25 10:00 03/28/25 10:24 25 MG Olanzapine 5 mg DAILY PO 03/22/25 10:00 03/29/25 10:53 5 MG Atorvastatin Calcium 80 mg HS PO 03/24/25 22:00 03/28/25 21:15 80 MG Enoxaparin Sodium 40 mg DAILY SC 03/25/25 10:00 03/31/25 10:08 40 MG Aspirin 81 mg DAILY NG 03/25/25 10:00 03/28/25 10:24 81 MG Acetylcysteine 100 mg Q6HR NEB 03/26/25 18:00 03/31/25 18:27 100 MG Midazolam HCl 50 ml @ 1 mls/hr Q24H IV 03/27/25 09:15 03/29/25 05:48 1 MLS/HR Nicardipine/ Sodium Chloride 200 ml @ 50 mls/hr Q4H IV 03/28/25 17:45 Lorazepam 2 mg Q2HPRN PRN IV 03/29/25 16:45 03/31/25 04:03 2 MG Insulin Human Regular ACHS SC 03/30/25 22:00 Piperacillin Sod/ Tazobactam Sod 100 ml @ 25 mls/hr Q8HR IV 03/31/25 14:00 03/31/25 21:43 25 MLS/HR Metoprolol Tartrate 25 mg BID PO 03/31/25 22:00 Hydralazine HCl 10 mg Q6HP PRN IV 03/31/25 19:45 objective GENERAL: Awake. EYES: PERRL, EOMI. Anicteric. HENT: Moist mucous membranes. LUNGS: Decreased breath sounds. CARDIOVASCULAR: Regular rate and rhythm. ABDOMEN: Soft, non-tender and non-distended. EXTREMITIES: No edema. SKIN: Warm, dry. laboratory and microbiology Laboratory Tests 03/31/25 13:25 03/31/25 04:58 Test 03/31/25 04:58 Range/Units Serum Glucose 120 H 74-106 mg/dL Problem List Multiple acute/subacute strokes. Hypokalemia. Acute kidney injury. Hypertension, newly diagnosed. Insulin-dependent diabetes mellitus. Status post right BKA. Dyslipidemia. Polysubstance use disorder. Left lower extremity cellulitis. Peripheral vascular disease status post right [id number] amputation 6 months ago. Sepsis. Diabetic neuropathy. Assessment/Plan Continued all current supportive medical care. Aspirin, Lipitor, Metoprolol. IV antibiotics as ordered. DVT and GI prophylactics. IV Hydralazine for SBP >160. Additional plan as per the hospital course. Critical care time of 45 minutes provided to include time spent evaluation of patient at bedside, when appropriate patient/family education for diagnosis, treatment plan, review of pertinent medical information and discussion of care with specialty providers and PCP. Dietary Evaluation Review Comments: 1) Esau 1 pk BID 2) Refer Vegetable Tier on DC 3) Continue current plan of care Expected Outcomes/Goals: Pt will meet >75% estimated needs Fu 3-5 days Plan discussed with: Other YANIRA WINN MD March 31, 2025 22:24
[2025-03-31] MEDS: hydrALAZINE HCL 20 MG/ML VL IV PRN (23:39)
--- NOTE | 2025-03-31 23:41 | DVHPN2 ---
Progress Note - Dictate Date Seen: March 31, 2025 Medical Necessity Reason Pt with a Central, PICC or Fol: Yes The following are medically ne: Acosta Catheter Reason for acosta catheter: Strict I&O Subjective Patient seen and examined at bedside. S/p extubation, on supplemental oxygen Overnight events reviewed. vital signs Vital Sign Date Time Temp Pulse Resp B/P (MAP) Pulse Ox O2 Delivery O2 Flow Rate FiO2 03/31/25 20:30 97.4 100 16 167/84 (111) 93 97.4 03/31/25 20:00 Nasal Cannula* 3 32 Total Intake and Output 03/30/25 03/30/25 03/31/25 15:00 23:00 07:00 Intake Total 221 ml 56.90 ml 111.030 ml Output Total 850 ml 1475 ml Balance 221 ml -793.10 ml -1363.970 ml medications Current Medications Medications Dose Ordered Sig/John Route Start Time Stop Time Status Last Admin Dose Admin Acetaminophen 650 mg Q6HP PRN PO 02/19/25 13:45 03/09/25 21:36 650 MG Diagnostic Test (Pha) 1 strip ACHS 02/19/25 17:00 03/31/25 17:00 1 STRIP Dextrose 50 ml UD PRN IV 02/19/25 15:45 03/14/25 21:04 50 ML Potassium Chloride 100 ml @ 50 mls/hr Q2H IV 02/19/25 23:15 02/20/25 05:14 Cancel Potassium Chloride 100 ml @ 50 mls/hr Q2H IV 02/20/25 07:15 02/20/25 11:14 UNV Gabapentin 100 mg TID PO 03/02/25 14:00 03/29/25 05:47 100 MG Calcium Acetate 1,334 mg TIDWMEALS PO 03/04/25 12:00 03/27/25 17:48 1,334 MG Ergocalciferol 50,000 unit Q7D PO 03/04/25 11:45 03/25/25 15:05 50,000 UNIT Zirconium Oxide 10 gm TID PO 03/07/25 14:00 Cancel Sodium Bicarbonate 50 ml/ Sodium Chloride 1,050 ml @ 100 mls/hr [id number] IV 03/07/25 11:45 Cancel Pantoprazole Sodium 40 mg BID IV 03/13/25 10:00 03/31/25 21:43 40 MG Albuterol 2.5 mg Q6HR NEB 03/13/25 12:00 03/31/25 18:26 2.5 MG Ipratropium [place] 0.5 mg Q6HR NEB 03/13/25 12:00 03/31/25 18:26 0.5 MG Saccharomyces Boulardii 250 mg DAILY PO 03/14/25 10:00 03/28/25 10:24 250 MG Enteral Nutritional Formula 1,000 ml 30ML/HR GT 03/14/25 08:45 03/28/25 17:07 1,000 ML Duloxetine HCl 30 mg DAILY PO 03/22/25 10:00 03/24/25 10:06 30 MG Lamotrigine 25 mg DAILY PO 03/22/25 10:00 03/28/25 10:24 25 MG Olanzapine 5 mg DAILY PO 03/22/25 10:00 03/29/25 10:53 5 MG Atorvastatin Calcium 80 mg HS PO 03/24/25 22:00 03/28/25 21:15 80 MG Enoxaparin Sodium 40 mg DAILY SC 03/25/25 10:00 03/31/25 10:08 40 MG Aspirin 81 mg DAILY NG 03/25/25 10:00 03/28/25 10:24 81 MG Acetylcysteine 100 mg Q6HR NEB 03/26/25 18:00 03/31/25 18:27 100 MG Midazolam HCl 50 ml @ 1 mls/hr Q24H IV 03/27/25 09:15 03/29/25 05:48 1 MLS/HR Nicardipine/ Sodium Chloride 200 ml @ 50 mls/hr Q4H IV 03/28/25 17:45 Lorazepam 2 mg Q2HPRN PRN IV 03/29/25 16:45 03/31/25 04:03 2 MG Insulin Human Regular ACHS SC 03/30/25 22:00 Piperacillin Sod/ Tazobactam Sod 100 ml @ 25 mls/hr Q8HR IV 03/31/25 14:00 03/31/25 21:43 25 MLS/HR Metoprolol Tartrate 25 mg BID PO 03/31/25 22:00 Hydralazine HCl 10 mg Q6HP PRN IV 03/31/25 19:45 objective Gen.: Patient lying in bed in no apparent distress. On supplemental oxygen. Head: Normocephalic, atraumatic. Eyes: EOMI/PERRLA. Ears: Normal hearing. Normal anatomy. Neck/trachea: Trachea midline, supple. Nose: Normal external anatomy. Mouth: Moist mucous membranes. Chest: Decreased air entry bilaterally. No wheezing or rhonchi. Cardiovascular: Positive S1, positive S2. Regular rate and rhythm. Abdomen: Positive bowel sounds in all 4 quadrants. Soft, non-tender, non- distended. : Deferred. Rectal: Deferred. Skin: Warm, dry. Intact. Extremities: 2+ radial pulses bilaterally. No lower extremity edema. Neuro: Awake, alert, oriented x3. No gross motor or sensory deficits. Cranial nerves II through XII intact. Gait not assessed. laboratory and microbiology Laboratory Tests 03/31/25 13:25 03/31/25 04:58 Test 03/31/25 04:58 Range/Units Serum Glucose 120 H 74-106 mg/dL Assessment/Plan Impression: Acute hypoxic respiratory failure Mechanical ventilation, s/p extubation Multiple acute/subacute strokes. Altered mental status Acute kidney injury. Hypertension, newly diagnosed. Insulin-dependent diabetes mellitus. Polysubstance use Peripheral vascular disease, s/p right BKA 6 months ago. Sepsis Events: Remains off vent On supplemental oxygen at 3 LPM NC Taper O2 as tolerated BiPAP PRN. Continue bronchodilators/Mucomyst Continue antibiotics. Hydralazine 10 mg q.6 hours PRN SBP above 160 mmHg Accu-Cheks, ISS. Monitor renal function Monitor electrolytes. Supplement as needed Potassium supplementation Labs and imaging reviewed. Rest of plan as noted below. Plan: S/p extubation on 03/29/25 Continue supplemental oxygen Titrate to maintain sats 90% or above BiPAP PRN. Aspiration precautions Swallow evaluation Bronchodilators Continue antibiotics. F/u cultures. Monitor renal function Monitor electrolytes Supplement as needed Continue psych meds Tube feeds for nutritional support Pressors as necessary for hemodynamic support Titrate to keep mean arterial pressure greater than 65 mmHg. GI prophylaxis - Protonix. DVT prophylaxis - Lovenox. Prognosis: Poor given patient's multiple co-morbidities. Condition: Critical Rest of plan per hospitalist and other consultants. A total of 35 minutes of critical care time was spent reviewing the patient record, examining the patient, making a diagnostic and therapeutic plan, discussing this plan with the medical personnel, following up on diagnostic studies and following the patient for clinical stability excluding any and all procedures. At least 50% of this time was spent in direct, [id number] contact. Thank you, FRANCISCO Alanis, for allowing me to participate in this patient's care. Further recommendations will depend on the patient's clinical course. Please do not hesitate to contact me if you have any questions or concerns. This medical document was created using an electronic medical record system with [employer] dictation system. Although these documentations are being carefully reviewed, there may still be some phonetic and typographical changes. The errors are purely typographical, due to imperfection on the software program, and do not reflect any compromise in the patient's medical care. Dietary Evaluation Review Comments: 1) Esau 1 pk BID 2) Refer Certified Legal Secretary Specialist on DC 3) Continue current plan of care Expected Outcomes/Goals: Pt will meet >75% estimated needs Fu 3-5 days Plan discussed with: Other (ASHLEY Encarnacion) Critical Care Time(min): 35 LARRY HERRERA MD March 31, 2025 23:41
[2025-04-01] VITALS (39 sets, daily range): BP systolic 105–175; BP diastolic 46–114; PULSE 96–113; RESP 12–33; TEMP 97.3–99.4; O2SAT 92–100
[2025-04-01 05:29] LABS: Basophils # (auto) 0.1 10 ^3/uL (0-0.2); Basophils % (auto) 0.7 % (0.0-2.0); Eosinophils # (auto) 0.1 10 ^3/uL (0-0.8); Eosinophils % (auto) 0.3 % (0.0-7.0); Hematocrit 27.3 % (36.0-46.0); Hemoglobin 9.1 g/dL (12.2-16.2); Lymphocytes # (auto) 0.8 10 ^3/uL (0.4-5.4); Lymphocytes % (auto) 4.4 % (10.0-50.0); Mean Corpuscular Hemoglobin 27.9 pg (28.0-32.0); Mean Corpuscular Hgb Conc. 33.2 g/dL (32.0-36.0); Monocytes # (auto) 0.6 10 ^3/uL (0-1.3); Neutrophils # (auto) 17.6 10 ^3/uL (1.6-8.6); Neutrophils % (auto) 91.6 % (37.0-80.0); Platelet Count (auto) 547 10^3/uL (140-450); Red Blood Cells 3.25 10^6/uL (4.0-5.20); Red Cell Distribution Width 15.5 % (11.8-14.3); White Blood Cell 19.2 10^3/uL (4.4-10.8)
--- NOTE | 2025-04-01 05:36 | DVH ---
EXAM: XR Chest, 1 View CLINICAL INDICATION: pna TECHNIQUE: Frontal view of the chest. COMPARISON: XY CHEST PORTABLE on DOS: 03/31/25, XY CHEST PORTABLE on DOS: 03/29/25, XY CHEST XRAY 1 VIE W on DOS: 03/28/25, XY CHEST XRAY 1 VIEW on DOS: 03/27/25, XY CHEST PORTABLE on DOS: 03/26/25 FINDINGS: LUNGS AND PLEURAL SPACES: See below. HEART: Cardiomegaly with pulmonary congestion and edema. Superimposed pneumonia cannot be excluded. MEDIASTINUM: Unremarkable. Normal mediastinal contour. BONES/JOINTS: Unremarkable. No acute fracture. OTHER FINDINGS: . . . IMPRESSION: Cardiomegaly with pulmonary congestion and edema. Superimposed pneumonia cannot be excluded.
[2025-04-01 05:45] LABS: Anion Gap 19 (5-15)
[2025-04-01 05:46] LABS: Calcium 9.5 mg/dL (8.7-10.4)
[2025-04-01 05:50] LABS: Carbon Dioxide 16 mmol/L (20-31); Chloride 111 mmol/L (98-107); Potassium 2.7 mmol/L (3.5-5.1); Sodium 146 mmol/L (136-145)
[2025-04-01 05:51] LABS: BUN/Creatinine Ratio 20.8 (10.0-20.0); Magnesium 1.7 mg/dL (1.6-2.6)
[2025-04-01 05:52] LABS: Blood Urea Nitrogen 32 mg/dL (9-23); Glucose 143 mg/dL (74-106)
[2025-04-01] MEDS: MAGNESIUM SULFATE 1GM/100ML 100 ML IV SCH (08:51)
[2025-04-01] MEDS: POTASSIUM CHL 20MEQ/50ML 50 ML IV SCH ×2 (08:52→18:24)
--- NOTE | 2025-04-01 10:08 | DVHPN2 ---
Progress Note - Dictate Date Seen: April 01, 2025 Medical Necessity Reason Pt with a Central, PICC or Fol: Yes The following are medically ne: Acosta Catheter Reason for acosta catheter: Strict I&O Subjective Mr. Kaur is a 54 years old right-handed female with a history of hypertension, diabetes, dyslipidemia, anxiety, GERD, osteo myelitis status post right BKA, she came to the [facility] on 02[facility]19[facility]25 with a chief complaint of general weakness. He was transferred/ICU on 03/13/25 for ALOC, nasal bleeding and intubation I have seen and examined the patient, I have talked to her nurse, she was awake, oriented to person, possible place as well (RN Ox 3-4), she follows a little bit, she may have left homonymous hemianopsia, she moves all extremities, left side looks weaker Psychiatry consultation, 02/26/25: 1:1 sitter. Transferred to inpatient psychiatric facility. Cymbalta 30 mg b.i.d. ABG, 03/13/2025: Unremarkable UDS, 02/19/2025: Cannabinoids Plasma alcohol, 02/19/2025: 3 Urinalysis, 02/19, : WBC: 2, urine leukocyte esterase WBC/HB/PLT/MCV, 02/20/2025: 21.9/10.9/398/83.1, 03/13/2025: 11.7/6.5/424/85.4 PT/INR/PTT, 03/13/2025: 10.6/1/38.6 K, 02/19/2025: 1.7, 02/20/2025: 2.1 BUN/CR, 02/20/2025: 33/2.03, 03/13/2025: 51.93 HGB A1c, 06/03/2024: 13.1 Liver function tests, 02/20/2025: Unremarkable TG/HDL/LDL/HDL, 04/11/2024: 180/238/164/43 MAGALIS, 02/21/2025: 1. Technically good study. Sinus rhythm. 2. Left atrial enlargement. 3. Number Valves appear to be structurally normal. 4. Ventricular systolic function is preserved at 60% with normal RV function. 5. Doppler reveals mild TR. No significant mitral or aortic insufficiency. No atrial septal or ventricular septal defects 6. No masses or vegetations discernible. 7. The atrial appendage looks clean, no masses. No atrial or ventricular septal defects as noted. No abnormal shunting. Bubble study was negative 8. The valves appear to be structurally normal. No vegetations or signs of emboli present. Carotid Doppler, 02/20/2025: No hemodynamically significant stenosis noted in the right carotid system. No hemodynamically significant stenosis noted in the left carotid system. Chest X-ray, 03/19/25: 1. Endotracheal tube terminates 4cm from caleb. Other lines and tubes are unchanged in position. 2. Bilateral airspace disease similar to prior study. CT head, : Small age-indeterminate infarct extending from the right jorge radiata into the right basal ganglia. Further evaluation with MRI brain with diffusion-weighted imaging is recommended. CT head, , No acute intracranial abnormality. Multiple subacute bilateral lacunar infarcts as seen on prior MRI. MRI head, 02/19/2025: 1. There are multiple small foci of acute to subacute infarct in the right jorge radiata and right basal ganglia. There are also multiple small acute to subacute infarcts in the left anteromedial frontal lobe and in the left jorge radiata and left basal ganglia. There is no evidence of acute hemorrhage MR head, 03/21/2025: 1. Multiple foci of restricted diffusion involving the left corpus callosum, bilateral basal ganglia and right jorge radiata. The largest area involves the left splenium of the corpus callosum. These likely represent acute to subacute infarcts. There is no evidence of acute hemorrhage. 2. Moderate amount of fluid in the bilateral mastoid air cells MRI left foot, 02/22/25: Moderate dorsal subcutaneous edema. No evidence of osteomyelitis. No drainable fluid collection noted. Moderate myositis. vital signs Vital Sign Date Time Temp Pulse Resp B/P (MAP) Pulse Ox O2 Delivery O2 Flow Rate FiO2 04/01/25 08:56 173/80 04/01/25 08:00 98 04/01/25 08:00 17 97 Nasal Cannula* 3 32 04/01/25 04:02 97.8 97.8 Total Intake and Output 03/31/25 03/31/25 04/01/25 15:00 23:00 07:00 Intake Total 10.770 ml 100 ml 0 ml Output Total 900 ml 1500 ml Balance 10.770 ml -800 ml -1500 ml medications Current Medications Medications Dose Ordered Sig/John Route Start Time Stop Time Status Last Admin Dose Admin Acetaminophen 650 mg Q6HP PRN PO 02/19/25 13:45 03/09/25 21:36 650 MG Diagnostic Test (Pha) 1 strip ACHS 02/19/25 17:00 04/01/25 07:26 1 STRIP Dextrose 50 ml UD PRN IV 02/19/25 15:45 03/14/25 21:04 50 ML Potassium Chloride 100 ml @ 50 mls/hr Q2H IV 02/19/25 23:15 02/20/25 05:14 Cancel Potassium Chloride 100 ml @ 50 mls/hr Q2H IV 02/20/25 07:15 02/20/25 11:14 UNV Gabapentin 100 mg TID PO 03/02/25 14:00 03/29/25 05:47 100 MG Calcium Acetate 1,334 mg TIDWMEALS PO 03/04/25 12:00 03/27/25 17:48 1,334 MG Ergocalciferol 50,000 unit Q7D PO 03/04/25 11:45 03/25/25 15:05 50,000 UNIT Zirconium Oxide 10 gm TID PO 03/07/25 14:00 Cancel Sodium Bicarbonate 50 ml/ Sodium Chloride 1,050 ml @ 100 mls/hr [id number] IV 03/07/25 11:45 Cancel Pantoprazole Sodium 40 mg BID IV 03/13/25 10:00 04/01/25 10:03 40 MG Albuterol 2.5 mg Q6HR NEB 03/13/25 12:00 04/01/25 05:35 2.5 MG Ipratropium [place] 0.5 mg Q6HR NEB 03/13/25 12:00 04/01/25 05:35 0.5 MG Saccharomyces Boulardii 250 mg DAILY PO 03/14/25 10:00 03/28/25 10:24 250 MG Enteral Nutritional Formula 1,000 ml 30ML/HR GT 03/14/25 08:45 03/28/25 17:07 1,000 ML Duloxetine HCl 30 mg DAILY PO 03/22/25 10:00 03/24/25 10:06 30 MG Lamotrigine 25 mg DAILY PO 03/22/25 10:00 03/28/25 10:24 25 MG Olanzapine 5 mg DAILY PO 03/22/25 10:00 03/29/25 10:53 5 MG Atorvastatin Calcium 80 mg HS PO 03/24/25 22:00 03/28/25 21:15 80 MG Enoxaparin Sodium 40 mg DAILY SC 03/25/25 10:00 04/01/25 10:02 40 MG Aspirin 81 mg DAILY NG 03/25/25 10:00 03/28/25 10:24 81 MG Acetylcysteine 100 mg Q6HR NEB 03/26/25 18:00 04/01/25 05:35 100 MG Midazolam HCl 50 ml @ 1 mls/hr Q24H IV 03/27/25 09:15 03/29/25 05:48 1 MLS/HR Nicardipine/ Sodium Chloride 200 ml @ 50 mls/hr Q4H IV 03/28/25 17:45 Lorazepam 2 mg Q2HPRN PRN IV 03/29/25 16:45 03/31/25 04:03 2 MG Insulin Human Regular ACHS SC 03/30/25 22:00 Piperacillin Sod/ Tazobactam Sod 100 ml @ 25 mls/hr Q8HR IV 03/31/25 14:00 04/01/25 05:51 25 MLS/HR Metoprolol Tartrate 25 mg BID PO 03/31/25 22:00 Hydralazine HCl 10 mg Q6HP PRN IV 03/31/25 19:45 04/01/25 08:56 10 MG Potassium Chloride 50 ml @ 25 mls/hr Q2H IV 04/01/25 08:45 04/01/25 12:44 04/01/25 08:52 25 MLS/HR Magnesium Sulfate/ Dextrose 100 ml @ 100 mls/hr Q1HR IV 04/01/25 09:00 04/01/25 10:59 04/01/25 09:53 100 MLS/HR objective The patient is well-nourished and well-developed with no distress. MUSCULOSKELETAL EXAM: Status post right BKA MENTAL STATUS: Subjective CRANIAL NERVES: Labeled to homonymous hemianopsia, Pupils are equal round and reactive to light briskly, normal external eye movement, normal sensation and motor examination in the lateral trigeminal nerve distribution, no facial weaknes SENSATION: responses to pain stimuli. MOTOR: Normal tone in the upper and lower extremity. Normal muscle bulk. No fasciculations. She moves extremities, muscle power in the right extremities: 4/5, muscle power in the left extremities: Upper: 3/5, lower: 2-3/5 REFLEXES: Deep tendon reflexes are symmetrical. No pathological reflexes. CEREBELLAR/COORDINATION: Deferred GAIT/STATION: deferred. laboratory and microbiology Laboratory Tests 04/01/25 05:07 Test 04/01/25 05:07 Range/Units Serum Glucose 143 H 74-106 mg/dL Problem List Acute respiratory failure Excessive nasal bleeding Come company resolved Metabolic encephalopathy Hypoxic encephalopathy Toxic encephalopathy Left hemiparesis secondary stroke ? Left homonymous hemianopsia secondary to stroke General weakness Multiple acute/subacute strokes (MRI head: 02/19/2025, 03/21/2025) Status post right BKA Depression Assessment/Plan Monitoring Supportive treatment ICU Stabilize vitals Respiratory support Oxygen Antibiotics Aspirin 81 mg daily Lipitor 80mg Qd Cymbalta 30 mg b.i.d. DVT prophylaxis/Lovenox Quit tobacco smoking completely More recommendation per clinical course This medical document was created using an electronic medical record system with [employer] dictation system. Although this document has been carefully reviewed, there may still be some phonetic and typographical errors. These areas are purely typographical due to imperfections of the software programs, and do not reflect any compromise in the patient's medical care. Prognosis poor Dietary Evaluation Review Comments: 1) Esau 1 pk BID 2) Refer Paper Stacker on DC 3) Continue current plan of care Expected Outcomes/Goals: Pt will meet >75% estimated needs Fu 3-5 days Plan discussed with: Other NEELA RUEDA MD April 01, 2025 10:08
--- NOTE | 2025-04-01 11:11 | DVHPN2 ---
Subjective Denies any symptoms Reviewed: Care Plan, H&P, Labs, Medications, Previous Orders, Radiology, Other (Consultations) Changes from previous H/P or p: Changes General: Per HPI Objective Vitals Vital Signs Date Time Temp Pulse Resp B/P (MAP) Pulse Ox O2 Delivery O2 Flow Rate FiO2 04/01/25 10:00 25 97 Nasal Cannula* 3 32 04/01/25 10:00 107 04/01/25 08:56 173/80 04/01/25 04:02 97.8 97.8 Intake/Output Intake and Output 04/01/25 07:00 Intake Total 110.770 ml Output Total 2400 ml Balance -2289.230 ml Intake Oral 0 ml IV Total 110.770 ml Output Urine Total 2400 ml # Bowel Movements 4 Exam Assess patient will sitting in her wheelchair. General Appearance: Alert, Oriented X3, Cooperative, mild distress HEENT: Atraumatic Lungs: Clear to auscultation, Normal air movement, Other (NC at 2lpm) Cardiovascular: Regular rate, Normal S1, Normal S2 Abdomen: Normal bowel sounds, Soft Genitourinary: No Apparent Abnormalities, Other (Almaraz's) Extremities: Other (Right BKA) Neuro: Cranial nerves 3-12 NL, Other (Intubated and sedated) Skin: Dry, Intact, Wounds (See nurse notes and pictures) Psych/Mental Status: Other (Intubated and sedated) Medications Current Medications Medications Dose Ordered Sig/John Route Start Time Stop Time Status Last Admin Dose Admin Acetaminophen 650 mg Q6HP PRN PO 02/19/25 13:45 03/09/25 21:36 650 MG Diagnostic Test (Pha) 1 strip ACHS 02/19/25 17:00 04/01/25 07:26 1 STRIP Dextrose 50 ml UD PRN IV 02/19/25 15:45 03/14/25 21:04 50 ML Potassium Chloride 100 ml @ 50 mls/hr Q2H IV 02/19/25 23:15 02/20/25 05:14 Cancel Potassium Chloride 100 ml @ 50 mls/hr Q2H IV 02/20/25 07:15 02/20/25 11:14 UNV Gabapentin 100 mg TID PO 03/02/25 14:00 03/29/25 05:47 100 MG Calcium Acetate 1,334 mg TIDWMEALS PO 03/04/25 12:00 03/27/25 17:48 1,334 MG Ergocalciferol 50,000 unit Q7D PO 03/04/25 11:45 03/25/25 15:05 50,000 UNIT Zirconium Oxide 10 gm TID PO 03/07/25 14:00 Cancel Sodium Bicarbonate 50 ml/ Sodium Chloride 1,050 ml @ 100 mls/hr [id number] IV 03/07/25 11:45 Cancel Pantoprazole Sodium 40 mg BID IV 03/13/25 10:00 04/01/25 10:03 40 MG Albuterol 2.5 mg Q6HR NEB 03/13/25 12:00 04/01/25 05:35 2.5 MG Ipratropium [place] 0.5 mg Q6HR NEB 03/13/25 12:00 04/01/25 05:35 0.5 MG Saccharomyces Boulardii 250 mg DAILY PO 03/14/25 10:00 03/28/25 10:24 250 MG Enteral Nutritional Formula 1,000 ml 30ML/HR GT 03/14/25 08:45 03/28/25 17:07 1,000 ML Duloxetine HCl 30 mg DAILY PO 03/22/25 10:00 03/24/25 10:06 30 MG Lamotrigine 25 mg DAILY PO 03/22/25 10:00 03/28/25 10:24 25 MG Olanzapine 5 mg DAILY PO 03/22/25 10:00 03/29/25 10:53 5 MG Atorvastatin Calcium 80 mg HS PO 03/24/25 22:00 03/28/25 21:15 80 MG Enoxaparin Sodium 40 mg DAILY SC 03/25/25 10:00 04/01/25 10:02 40 MG Aspirin 81 mg DAILY NG 03/25/25 10:00 03/28/25 10:24 81 MG Acetylcysteine 100 mg Q6HR NEB 03/26/25 18:00 04/01/25 05:35 100 MG Midazolam HCl 50 ml @ 1 mls/hr Q24H IV 03/27/25 09:15 03/29/25 05:48 1 MLS/HR Nicardipine/ Sodium Chloride 200 ml @ 50 mls/hr Q4H IV 03/28/25 17:45 Lorazepam 2 mg Q2HPRN PRN IV 03/29/25 16:45 03/31/25 04:03 2 MG Insulin Human Regular ACHS SC 03/30/25 22:00 Piperacillin Sod/ Tazobactam Sod 100 ml @ 25 mls/hr Q8HR IV 03/31/25 14:00 04/01/25 05:51 25 MLS/HR Metoprolol Tartrate 25 mg BID PO 03/31/25 22:00 Hydralazine HCl 10 mg Q6HP PRN IV 03/31/25 19:45 04/01/25 08:56 10 MG Potassium Chloride 50 ml @ 25 mls/hr Q2H IV 04/01/25 08:45 04/01/25 12:44 04/01/25 10:19 25 MLS/HR Laboratory Results Laboratory Tests 04/01/25 05:07 Chemistry Test 04/01/25 05:07 Calcium Level 9.5 mg/dL (8.7-10.4) Magnesium Level 1.7 mg/dL (1.6-2.6) Urinalysis Test 02/19/25 17:27 03/04/25 05:00 Urine Color Colorless (Yellow) Urine Clarity Clear (Clear) Urine pH 6.5 (5.0-9.0) Urine Specific [place] 1.008 (1.001-1.035) Urine Protein 2+ (Negative) H Urine Ketones 1+ (Negative) H Urine Blood 1+ /uL (Negative) H Urine Nitrite Negative (Negative) Urine Bilirubin Negative (Negative) Urine Urobilinogen Normal mg/dL (Negative) Urine Leukocyte Esterase Negative /uL (Negative) Urine RBC 6 /hpf (0 - 4) Urine Microscopic WBC 2 /HPF (0-5) Urine Squamous Epithelial Cells Few /hpf (<5) Urine Bacteria None seen /hpf (None Seen) Urine Glucose 2+ mg/dL (Normal) H Urine Creatinine 25.51 mg/dL (30.0-125.0) L Urine Protein/Creatinine Ratio 14.00 Urine Sodium 80 mmol/L (40-220) Urine Total Protein 357.1 mg/dL (1-14) H Blood Gas Results Test 04/01/25 08:30 FiO2 % 32.0 Microbiology Microbiology Date/Time Source Procedure Growth Status 03/26/25 17:24 Sputum Gram Stain - Final Resulted 03/26/25 17:24 Sputum Respiratory Culture - Preliminary Resulted 03/13/25 05:10 Blood Blood Culture - Final NO GROWTH AFTER 5 DAYS OF INCUBATION. Complete 03/06/25 14:37 Knee Left Gram Stain - Final Complete 03/06/25 14:37 Knee Left Anaerobic Culture - Final Complete 03/06/25 14:37 Aerobic Culture - Final Staphylococcus aureus Complete 03/04/25 13:29 Aspirate Gram Stain - Final Complete 03/04/25 13:29 Body Fluid Culture - Final Staphylococcus aureus Complete 02/19/25 17:27 Urine - [place] Urine Culture - Final Complete Labs and/or images reviewed: Labs reviewed by me, Image(s) reviewed by me Assessment/Plan Assessment/Plan Impression: Multiple acute/subacute strokes Left lower extremity cellulitis Rule out left septic knee Hypokalemia Acute kidney injury likely hemodynamically mediated due to vasomotor nephropathy Chronic kidney disease Peripheral vascular disease status post right [id number] amputation 6 months ago Poorly controlled type 2 diabetes Sepsis Hypertension Mixed hyperlipidemia Polysubstance use disorder Diabetic neuropathy -? Suicidal ideation -septic bursitis with Staphylococcus aureus -septic shock Angioedema of the tongue Plan: -events: No events overnight. K and Mg replete. Dangling with PT. VBG reviewed. -PUD prophylaxis -swallow evaluation- Pending -bronchodilators -stop antibiotic course, changed to Meropenem given growth of Pseudomonas in sputum -continue PPI Repeat labs and chest x-ray in a.m. Critical care time spent with patient discussing and formulating plan of care: 40 minutes. This does not include time spent performing procedures. This medical document was created using an electronic medical record system with [employer] dictation system. Although this document has been carefully reviewed, there may still be some phonetic and typographical errors. These areas are purely typographical due to imperfections of the software programs, and do not reflect any compromise in the patient's medical care. Plan discussed with: Patient, Other (RN) My Orders Orders - JUSTIN BONILLA NP Procedure Category Date Status Time Metoprolol Tartrate PHA 03/31/25 In Process Tablet (Lopressor Ta 22:00 Chest Portable XY 04/01/25 Resulted 04:00 Venous Blood Gas RT 04/01/25 Logged 08:20 Potassium Chl PHA 04/01/25 In Process 20meq/50ml (Potassium 08:45 Basic Metabolic Panel LAB 04/02/25 Verified 04:00 Potassium LAB 04/01/25 Logged 15:00 Magnesium LAB 04/01/25 Logged 15:00 Date of Service: April 01, 2025 Billing Provider: JUSTIN BONILLA NP Common Visit Codes: [id number] CARE 30-74 MIN JUSTIN BONILLA NP April 01, 2025 11:11
[2025-04-01 15:25] LABS: Potassium 2.6 mmol/L (3.5-5.1)
[2025-04-01 15:31] LABS: Magnesium 2.2 mg/dL (1.6-2.6)
[2025-04-01] MEDS ORDERED: METOPROLOL TARTRATE 1MG/1ML-5ML VIAL IV PRN (16:00)
[2025-04-01] MEDS: guaiFENesin 200 MG/10 ML UD PO PRN (22:16)
--- NOTE | 2025-04-01 23:23 | DVHPN2 ---
Progress Note - Dictate Date Seen: April 01, 2025 Medical Necessity Reason Pt with a Central, PICC or Fol: Yes The following are medically ne: Acosta Catheter Reason for acosta catheter: Strict I&O Subjective Patient seen and examined at bedside. Remains on supplemental oxygen Overnight events reviewed. vital signs Vital Sign Date Time Temp Pulse Resp B/P (MAP) Pulse Ox O2 Delivery O2 Flow Rate FiO2 04/01/25 22:08 98 151/64 04/01/25 19:01 23 98 04/01/25 18:11 Nasal Cannula* 2 28 04/01/25 16:00 99.4 99.4 Total Intake and Output 03/31/25 03/31/25 04/01/25 15:00 23:00 07:00 Intake Total 10.770 ml 100 ml 25 ml Output Total 900 ml 1500 ml Balance 10.770 ml -800 ml -1475 ml medications Current Medications Medications Dose Ordered Sig/John Route Start Time Stop Time Status Last Admin Dose Admin Acetaminophen 650 mg Q6HP PRN PO 02/19/25 13:45 03/09/25 21:36 650 MG Diagnostic Test (Pha) 1 strip ACHS 02/19/25 17:00 04/01/25 22:08 1 STRIP Dextrose 50 ml UD PRN IV 02/19/25 15:45 03/14/25 21:04 50 ML Potassium Chloride 100 ml @ 50 mls/hr Q2H IV 02/19/25 23:15 02/20/25 05:14 Cancel Potassium Chloride 100 ml @ 50 mls/hr Q2H IV 02/20/25 07:15 02/20/25 11:14 UNV Gabapentin 100 mg TID PO 03/02/25 14:00 04/01/25 22:08 100 MG Calcium Acetate 1,334 mg TIDWMEALS PO 03/04/25 12:00 03/27/25 17:48 1,334 MG Ergocalciferol 50,000 unit Q7D PO 03/04/25 11:45 03/25/25 15:05 50,000 UNIT Zirconium Oxide 10 gm TID PO 03/07/25 14:00 Cancel Sodium Bicarbonate 50 ml/ Sodium Chloride 1,050 ml @ 100 mls/hr [id number] IV 03/07/25 11:45 Cancel Pantoprazole Sodium 40 mg BID IV 03/13/25 10:00 04/01/25 22:07 40 MG Albuterol 2.5 mg Q6HR NEB 03/13/25 12:00 04/01/25 18:11 2.5 MG Ipratropium [place] 0.5 mg Q6HR NEB 03/13/25 12:00 04/01/25 18:11 0.5 MG Saccharomyces Boulardii 250 mg DAILY PO 03/14/25 10:00 03/28/25 10:24 250 MG Enteral Nutritional Formula 1,000 ml 30ML/HR GT 03/14/25 08:45 03/28/25 17:07 1,000 ML Duloxetine HCl 30 mg DAILY PO 03/22/25 10:00 03/24/25 10:06 30 MG Lamotrigine 25 mg DAILY PO 03/22/25 10:00 03/28/25 10:24 25 MG Olanzapine 5 mg DAILY PO 03/22/25 10:00 03/29/25 10:53 5 MG Atorvastatin Calcium 80 mg HS PO 03/24/25 22:00 04/01/25 22:08 80 MG Enoxaparin Sodium 40 mg DAILY SC 03/25/25 10:00 04/01/25 10:02 40 MG Aspirin 81 mg DAILY NG 03/25/25 10:00 03/28/25 10:24 81 MG Acetylcysteine 100 mg Q6HR NEB 03/26/25 18:00 04/01/25 18:10 100 MG Midazolam HCl 50 ml @ 1 mls/hr Q24H IV 03/27/25 09:15 03/29/25 05:48 1 MLS/HR Nicardipine/ Sodium Chloride 200 ml @ 50 mls/hr Q4H IV 03/28/25 17:45 Lorazepam 2 mg Q2HPRN PRN IV 03/29/25 16:45 03/31/25 04:03 2 MG Insulin Human Regular ACHS SC 03/30/25 22:00 04/01/25 22:14 2 UNITS Piperacillin Sod/ Tazobactam Sod 100 ml @ 25 mls/hr Q8HR IV 03/31/25 14:00 04/01/25 22:07 25 MLS/HR Metoprolol Tartrate 25 mg BID PO 03/31/25 22:00 04/01/25 22:08 25 MG Hydralazine HCl 10 mg Q6HP PRN IV 03/31/25 19:45 04/01/25 08:56 10 MG Guaifenesin 200 mg Q4HP PRN PO 04/01/25 16:00 04/01/25 22:16 200 MG Metoprolol Tartrate 1.25 mg Q6HPRN PRN IV 04/01/25 16:00 objective Gen.: Patient lying in bed in no apparent distress. On supplemental oxygen. Head: Normocephalic, atraumatic. Eyes: EOMI/PERRLA. Ears: Normal hearing. Normal anatomy. Neck/trachea: Trachea midline, supple. Nose: Normal external anatomy. Mouth: Moist mucous membranes. Chest: Decreased air entry bilaterally. No wheezing or rhonchi. Cardiovascular: Positive S1, positive S2. Regular rate and rhythm. Abdomen: Positive bowel sounds in all 4 quadrants. Soft, non-tender, non- distended. : Deferred. Rectal: Deferred. Skin: Warm, dry. Intact. Extremities: 2+ radial pulses bilaterally. No lower extremity edema. Neuro: Awake, alert, oriented x3. No gross motor or sensory deficits. Cranial nerves II through XII intact. Gait not assessed. laboratory and microbiology Laboratory Tests 04/01/25 14:56 04/01/25 05:07 Test 04/01/25 05:07 Range/Units Serum Glucose 143 H 74-106 mg/dL Assessment/Plan Impression: Acute hypoxic respiratory failure Multiple acute/subacute strokes. Altered mental status Acute kidney injury. Hypertension, newly diagnosed. Insulin-dependent diabetes mellitus. Polysubstance use Peripheral vascular disease, s/p right BKA 6 months ago. Sepsis Events: On supplemental oxygen at 2 LPM NC Taper O2 as tolerated BiPAP PRN. CXR reviewed; cardiomegaly with pulmonary congestion and edema. Superimposed pneumonia cannot be excluded. Head of bed elevation Aspiration precautions Continue bronchodilators/Mucomyst Continue antibiotics. Blood pressure control Hydralazine 10 mg q.6 hours PRN SBP above 160 mmHg Pt with loose stools. Accu-Cheks, ISS. Monitor renal function Monitor electrolytes. Supplement as needed Potassium, magnesium supplementation Labs reviewed - continues to have electrolyte abnormalities Imaging reviewed. Rest of plan as noted below. Plan: S/p extubation on 03/29/25 Continue supplemental oxygen Titrate to maintain sats above 92% BiPAP PRN. HOB elevation Aspiration precautions Bronchodilators Continue antibiotics. F/u cultures. Monitor renal function Monitor electrolytes Supplement as needed Continue psych meds Tube feeds for nutritional support Pressors as necessary for hemodynamic support Titrate to keep mean arterial pressure greater than 65 mmHg. GI prophylaxis - Protonix. DVT prophylaxis - Lovenox. Prognosis: Poor given patient's multiple co-morbidities. Condition: Critical Rest of plan per hospitalist and other consultants. A total of 35 minutes of critical care time was spent reviewing the patient record, examining the patient, making a diagnostic and therapeutic plan, discussing this plan with the medical personnel, following up on diagnostic studies and following the patient for clinical stability excluding any and all procedures. At least 50% of this time was spent in direct, [id number] contact. Thank you, FRANCISCO Alanis, for allowing me to participate in this patient's care. Further recommendations will depend on the patient's clinical course. Please do not hesitate to contact me if you have any questions or concerns. This medical document was created using an electronic medical record system with [employer] dictation system. Although these documentations are being carefully reviewed, there may still be some phonetic and typographical changes. The errors are purely typographical, due to imperfection on the software program, and do not reflect any compromise in the patient's medical care. Dietary Evaluation Review Comments: 1) Esau 1 pk BID 2) Refer Regulatory Auditor on DC 3) Continue current plan of care Expected Outcomes/Goals: Pt will meet >75% estimated needs Fu 3-5 days Plan discussed with: Other (ASHLEY Mendoza) Critical Care Time(min): 35 LARRY HERRERA MD April 01, 2025 23:23
--- NOTE | 2025-04-01 23:48 | DVHPN2 ---
Progress Note - Dictate Date Seen: April 01, 2025 Medical Necessity Reason Pt with a Central, PICC or Fol: Yes The following are medically ne: Acosta Catheter Reason for acosta catheter: Strict I&O Subjective Patient was seen and evaluated in follow up in the ICU. Patient is on 2 LPM NC. Patient denies any pain or discomfort. WBC 19.2, HGB 9.1, HCT 27.3, K 2.6. Potassium was replaced. vital signs Vital Sign Date Time Temp Pulse Resp B/P (MAP) Pulse Ox O2 Delivery O2 Flow Rate FiO2 04/01/25 22:08 98 151/64 04/01/25 19:01 23 98 04/01/25 18:11 Nasal Cannula* 2 28 04/01/25 16:00 99.4 99.4 Total Intake and Output 03/31/25 03/31/25 04/01/25 15:00 23:00 07:00 Intake Total 10.770 ml 100 ml 25 ml Output Total 900 ml 1500 ml Balance 10.770 ml -800 ml -1475 ml medications Current Medications Medications Dose Ordered Sig/John Route Start Time Stop Time Status Last Admin Dose Admin Acetaminophen 650 mg Q6HP PRN PO 02/19/25 13:45 03/09/25 21:36 650 MG Diagnostic Test (Pha) 1 strip ACHS 02/19/25 17:00 04/01/25 22:08 1 STRIP Dextrose 50 ml UD PRN IV 02/19/25 15:45 03/14/25 21:04 50 ML Potassium Chloride 100 ml @ 50 mls/hr Q2H IV 02/19/25 23:15 02/20/25 05:14 Cancel Potassium Chloride 100 ml @ 50 mls/hr Q2H IV 02/20/25 07:15 02/20/25 11:14 UNV Gabapentin 100 mg TID PO 03/02/25 14:00 04/01/25 22:08 100 MG Calcium Acetate 1,334 mg TIDWMEALS PO 03/04/25 12:00 03/27/25 17:48 1,334 MG Ergocalciferol 50,000 unit Q7D PO 03/04/25 11:45 03/25/25 15:05 50,000 UNIT Zirconium Oxide 10 gm TID PO 03/07/25 14:00 Cancel Sodium Bicarbonate 50 ml/ Sodium Chloride 1,050 ml @ 100 mls/hr [id number] IV 03/07/25 11:45 Cancel Pantoprazole Sodium 40 mg BID IV 03/13/25 10:00 04/01/25 22:07 40 MG Albuterol 2.5 mg Q6HR NEB 03/13/25 12:00 04/01/25 18:11 2.5 MG Ipratropium [place] 0.5 mg Q6HR NEB 03/13/25 12:00 04/01/25 18:11 0.5 MG Saccharomyces Boulardii 250 mg DAILY PO 03/14/25 10:00 03/28/25 10:24 250 MG Enteral Nutritional Formula 1,000 ml 30ML/HR GT 03/14/25 08:45 03/28/25 17:07 1,000 ML Duloxetine HCl 30 mg DAILY PO 03/22/25 10:00 03/24/25 10:06 30 MG Lamotrigine 25 mg DAILY PO 03/22/25 10:00 03/28/25 10:24 25 MG Olanzapine 5 mg DAILY PO 03/22/25 10:00 03/29/25 10:53 5 MG Atorvastatin Calcium 80 mg HS PO 03/24/25 22:00 04/01/25 22:08 80 MG Enoxaparin Sodium 40 mg DAILY SC 03/25/25 10:00 04/01/25 10:02 40 MG Aspirin 81 mg DAILY NG 03/25/25 10:00 03/28/25 10:24 81 MG Acetylcysteine 100 mg Q6HR NEB 03/26/25 18:00 04/01/25 18:10 100 MG Midazolam HCl 50 ml @ 1 mls/hr Q24H IV 03/27/25 09:15 03/29/25 05:48 1 MLS/HR Nicardipine/ Sodium Chloride 200 ml @ 50 mls/hr Q4H IV 03/28/25 17:45 Lorazepam 2 mg Q2HPRN PRN IV 03/29/25 16:45 03/31/25 04:03 2 MG Insulin Human Regular ACHS SC 03/30/25 22:00 04/01/25 22:14 2 UNITS Piperacillin Sod/ Tazobactam Sod 100 ml @ 25 mls/hr Q8HR IV 03/31/25 14:00 04/01/25 22:07 25 MLS/HR Metoprolol Tartrate 25 mg BID PO 03/31/25 22:00 04/01/25 22:08 25 MG Hydralazine HCl 10 mg Q6HP PRN IV 03/31/25 19:45 04/01/25 08:56 10 MG Guaifenesin 200 mg Q4HP PRN PO 04/01/25 16:00 04/01/25 22:16 200 MG Metoprolol Tartrate 1.25 mg Q6HPRN PRN IV 04/01/25 16:00 objective GENERAL: Awake. EYES: PERRL, EOMI. Anicteric. HENT: Moist mucous membranes. LUNGS: Decreased breath sounds. CARDIOVASCULAR: Regular rate and rhythm. ABDOMEN: Soft, non-tender and non-distended. EXTREMITIES: No edema. SKIN: Warm, dry. laboratory and microbiology Laboratory Tests 04/01/25 14:56 04/01/25 05:07 Test 04/01/25 05:07 Range/Units Serum Glucose 143 H 74-106 mg/dL Problem List Multiple acute/subacute strokes. Hypokalemia. Acute kidney injury. Hypertension, newly diagnosed. Insulin-dependent diabetes mellitus. Status post right BKA. Dyslipidemia. Polysubstance use disorder. Left lower extremity cellulitis. Peripheral vascular disease status post right [id number] amputation 6 months ago. Sepsis. Diabetic neuropathy. Assessment/Plan Continued all current supportive medical care. Aspirin, Lipitor, Metoprolol. IV antibiotics as ordered. DVT and GI prophylactics. IV Hydralazine for SBP >160. Additional plan as per the hospital course. Critical care time of 45 minutes provided to include time spent evaluation of patient at bedside, when appropriate patient/family education for diagnosis, treatment plan, review of pertinent medical information and discussion of care with specialty providers and PCP. Dietary Evaluation Review Comments: 1) [place] 1 pk BID 2) Refer Maintenance Department Technician on DC 3) Continue current plan of care Expected Outcomes/Goals: Pt will meet >75% estimated needs Fu 3-5 days Plan discussed with: Patient YANIRA WINN MD April 01, 2025 23:48
[2025-04-02] VITALS (52 sets, daily range): BP systolic 120–186; BP diastolic 59–102; PULSE 90–116; RESP 12–31; TEMP 98.1–98.9; O2SAT 93–100
[2025-04-02 05:12] LABS: Anion Gap 17 (5-15)
[2025-04-02 05:15] LABS: Carbon Dioxide 17 mmol/L (20-31); Chloride 116 mmol/L (98-107); Potassium 2.9 mmol/L (3.5-5.1); Sodium 150 mmol/L (136-145)
[2025-04-02 05:18] LABS: BUN/Creatinine Ratio 19.4 (10.0-20.0)
[2025-04-02 05:39] LABS: Blood Urea Nitrogen 28 mg/dL (9-23); Glucose 118 mg/dL (74-106)
--- NOTE | 2025-04-02 08:32 | ECG ---
[facility] Test Date: 2025-04-01 Test Time: 13:54:59 Pat Name: MELISSA SALMON Department: Room: 0264 A Gender: F Roof Bolter: AGATHA : 1970 Requested By: MELBA SOFIA Order Number: [id number] Reading MD: Ezekiel Henry Measurements Intervals [place] Rate: 108 P: 59 KS: 140 QRS: 83 QRSD: 86 T: 31 QT: 354 QTc: 474 Interpretive Statements Sinus tachycardia Low voltage QRS Nonspecific ST abnormality Electronically Signed On 04-03-2025 20:01:31 PDT by Ezekiel Henry Please click the below link to view image of tracing.
[2025-04-02] MEDS: POTASSIUM CHLORIDE 60 MEQ, LIDOCAINE 1% (LOCAL ANESTH.) 6 ML in SODIUM CHL 0.9% 500 ML IV ONE (09:16)
--- NOTE | 2025-04-02 09:46 | DVHPN2 ---
Subjective Denies any symptoms Reviewed: Care Plan, H&P, Labs, Medications, Previous Orders, Radiology, Other (Consultations) Changes from previous H/P or p: No Changes General: Per HPI Objective Vitals Vital Signs Date Time Temp Pulse Resp B/P (MAP) Pulse Ox O2 Delivery O2 Flow Rate FiO2 04/02/25 08:00 98.6 112 15 155/88 (110) 95 98.6 04/02/25 06:37 Nasal Cannula 2.0 04/02/25 06:37 28 Intake/Output Intake and Output 04/02/25 07:00 Intake Total 525 ml Output Total 2200 ml Balance -1675 ml Intake Oral 0 ml IV Total 525 ml Output Urine Total 2200 ml # Bowel Movements 1 Exam Assess patient will sitting in her wheelchair. General Appearance: Alert, Oriented X3, Cooperative, mild distress HEENT: Atraumatic, PERRLA Lungs: Clear to auscultation, Normal air movement, Other (NC at 2lpm) Cardiovascular: Regular rate, Normal S1, Normal S2 Abdomen: Normal bowel sounds, Soft Genitourinary: No Apparent Abnormalities, Other (Almaraz's) Extremities: Other (Right BKA) Neuro: Cranial nerves 3-12 NL, Other (Intubated and sedated) Skin: Dry, Intact, Wounds (See nurse notes and pictures) Psych/Mental Status: Other (Intubated and sedated) Medications Current Medications Medications Dose Ordered Sig/John Route Start Time Stop Time Status Last Admin Dose Admin Acetaminophen 650 mg Q6HP PRN PO 02/19/25 13:45 03/09/25 21:36 650 MG Diagnostic Test (Pha) 1 strip ACHS 02/19/25 17:00 04/02/25 07:01 1 STRIP Dextrose 50 ml UD PRN IV 02/19/25 15:45 03/14/25 21:04 50 ML Potassium Chloride 100 ml @ 50 mls/hr Q2H IV 02/19/25 23:15 02/20/25 05:14 Cancel Potassium Chloride 100 ml @ 50 mls/hr Q2H IV 02/20/25 07:15 02/20/25 11:14 UNV Gabapentin 100 mg TID PO 03/02/25 14:00 04/01/25 22:08 100 MG Calcium Acetate 1,334 mg TIDWMEALS PO 03/04/25 12:00 03/27/25 17:48 1,334 MG Ergocalciferol 50,000 unit Q7D PO 03/04/25 11:45 03/25/25 15:05 50,000 UNIT Zirconium Oxide 10 gm TID PO 03/07/25 14:00 Cancel Sodium Bicarbonate 50 ml/ Sodium Chloride 1,050 ml @ 100 mls/hr [id number] IV 03/07/25 11:45 Cancel Pantoprazole Sodium 40 mg BID IV 03/13/25 10:00 04/01/25 22:07 40 MG Albuterol 2.5 mg Q6HR NEB 03/13/25 12:00 04/02/25 06:37 2.5 MG Ipratropium [place] 0.5 mg Q6HR NEB 03/13/25 12:00 04/02/25 06:37 0.5 MG Saccharomyces Boulardii 250 mg DAILY PO 03/14/25 10:00 03/28/25 10:24 250 MG Enteral Nutritional Formula 1,000 ml 30ML/HR GT 03/14/25 08:45 03/28/25 17:07 1,000 ML Duloxetine HCl 30 mg DAILY PO 03/22/25 10:00 03/24/25 10:06 30 MG Lamotrigine 25 mg DAILY PO 03/22/25 10:00 03/28/25 10:24 25 MG Olanzapine 5 mg DAILY PO 03/22/25 10:00 03/29/25 10:53 5 MG Atorvastatin Calcium 80 mg HS PO 03/24/25 22:00 04/01/25 22:08 80 MG Enoxaparin Sodium 40 mg DAILY SC 03/25/25 10:00 04/01/25 10:02 40 MG Aspirin 81 mg DAILY NG 03/25/25 10:00 03/28/25 10:24 81 MG Acetylcysteine 100 mg Q6HR NEB 03/26/25 18:00 04/02/25 06:37 100 MG Midazolam HCl 50 ml @ 1 mls/hr Q24H IV 03/27/25 09:15 03/29/25 05:48 1 MLS/HR Nicardipine/ Sodium Chloride 200 ml @ 50 mls/hr Q4H IV 03/28/25 17:45 Lorazepam 2 mg Q2HPRN PRN IV 03/29/25 16:45 03/31/25 04:03 2 MG Insulin Human Regular ACHS SC 03/30/25 22:00 04/01/25 22:14 2 UNITS Piperacillin Sod/ Tazobactam Sod 100 ml @ 25 mls/hr Q8HR IV 03/31/25 14:00 04/02/25 05:54 25 MLS/HR Metoprolol Tartrate 25 mg BID PO 03/31/25 22:00 04/01/25 22:08 25 MG Hydralazine HCl 10 mg Q6HP PRN IV 03/31/25 19:45 04/01/25 08:56 10 MG Guaifenesin 200 mg Q4HP PRN PO 04/01/25 16:00 04/01/25 22:16 200 MG Metoprolol Tartrate 1.25 mg Q6HPRN PRN IV 04/01/25 16:00 Potassium Chloride/Sodium Chloride 1,000 ml @ 75 mls/hr [id number] IV 04/02/25 08:15 Laboratory Results Laboratory Tests 04/01/25 05:07 04/02/25 04:38 Chemistry Test 04/01/25 14:56 04/02/25 04:38 Magnesium Level 2.2 mg/dL (1.6-2.6) Calcium Level 9.0 mg/dL (8.7-10.4) Urinalysis Test 02/19/25 17:27 03/04/25 05:00 Urine Color Colorless (Yellow) Urine Clarity Clear (Clear) Urine pH 6.5 (5.0-9.0) Urine Specific [place] 1.008 (1.001-1.035) Urine Protein 2+ (Negative) H Urine Ketones 1+ (Negative) H Urine Blood 1+ /uL (Negative) H Urine Nitrite Negative (Negative) Urine Bilirubin Negative (Negative) Urine Urobilinogen Normal mg/dL (Negative) Urine Leukocyte Esterase Negative /uL (Negative) Urine RBC 6 /hpf (0 - 4) Urine Microscopic WBC 2 /HPF (0-5) Urine Squamous Epithelial Cells Few /hpf (<5) Urine Bacteria None seen /hpf (None Seen) Urine Glucose 2+ mg/dL (Normal) H Urine Creatinine 25.51 mg/dL (30.0-125.0) L Urine Protein/Creatinine Ratio 14.00 Urine Sodium 80 mmol/L (40-220) Urine Total Protein 357.1 mg/dL (1-14) H Microbiology Microbiology Date/Time Source Procedure Growth Status 03/26/25 17:24 Sputum Gram Stain - Final Resulted 03/26/25 17:24 Sputum Respiratory Culture - Preliminary Resulted 03/13/25 05:10 Blood Blood Culture - Final NO GROWTH AFTER 5 DAYS OF INCUBATION. Complete 03/06/25 14:37 Knee Left Gram Stain - Final Complete 03/06/25 14:37 Knee Left Anaerobic Culture - Final Complete 03/06/25 14:37 Aerobic Culture - Final Staphylococcus aureus Complete 03/04/25 13:29 Aspirate Gram Stain - Final Complete 03/04/25 13:29 Body Fluid Culture - Final Staphylococcus aureus Complete 02/19/25 17:27 Urine - [place] Urine Culture - Final Complete Labs and/or images reviewed: Labs reviewed by me, Image(s) reviewed by me Assessment/Plan Assessment/Plan Impression: Multiple acute/subacute strokes Left lower extremity cellulitis Rule out left septic knee Hypokalemia Acute kidney injury likely hemodynamically mediated due to vasomotor nephropathy Chronic kidney disease Peripheral vascular disease status post right hduea-cab-xefc amputation 6 months ago Poorly controlled type 2 diabetes Sepsis Hypertension Mixed hyperlipidemia Polysubstance use disorder Diabetic neuropathy -? Suicidal ideation -septic bursitis with Staphylococcus aureus -septic shock Angioedema of the tongue -hyponatremia Plan: -events: No events overnight. Patient continues to have hypokalemia. Noted now to also have hypernatremia -start IV fluids with potassium supplementation -continue with pureed diet -strict aspiration precautions -PUD prophylaxis -bronchodilators -continue PPI Repeat labs and chest x-ray in a.m. Critical care time spent with patient discussing and formulating plan of care: 40 minutes. This does not include time spent performing procedures. This medical document was created using an electronic medical record system with [employer] dictation system. Although this document has been carefully reviewed, there may still be some phonetic and typographical errors. These areas are purely typographical due to imperfections of the software programs, and do not reflect any compromise in the patient's medical care. Plan discussed with: Patient, Other (RN) My Orders Orders - JUSTIN BONILLA NP Procedure Category Date Status Time Guaifenesin Plain PHA 04/01/25 In Process Liquid (Robitussin [place]zel 16:00 Metoprolol Inj PHA 04/01/25 In Process (Lopressor) 16:00 Sod Chl 0.45% With PHA 04/02/25 In Process 20meq Kcl 08:15 Basic Metabolic Panel LAB 04/03/25 Verified 04:00 Complete Blood Count LAB 04/03/25 Verified 04:00 Magnesium LAB 04/03/25 Verified 04:00 Date of Service: April 02, 2025 Billing Provider: JUSTIN BONILLA NP Common Visit Codes: [id number] CARE 30-74 MIN JUSTIN BONILLA NP April 02, 2025 09:46
--- NOTE | 2025-04-02 10:43 | DVHPN2 ---
Progress Note - Dictate Date Seen: April 02, 2025 Medical Necessity Reason Pt with a Central, PICC or Fol: Yes The following are medically ne: Acosta Catheter Reason for acosta catheter: Strict I&O Subjective Mr. Kaur is a 54 years old right-handed female with a history of hypertension, diabetes, dyslipidemia, anxiety, GERD, osteo myelitis status post right BKA, she came to the [facility] on 02/19/25 with a chief complaint of general weakness. He was transferred/ICU on 03/13/25 for ALOC, nasal bleeding and intubation I have seen and examined the patient, I have talked to her nurse, she is awake, oriented to person, place and she knows year, she was more interactive with her surroundings, socially better. She has left homonymous hemianopsia, she moves all extremities, left side looks weaker Psychiatry consultation, 02/26/25: 1:1 sitter. Transferred to inpatient psychiatric facility. Cymbalta 30 mg b.i.d. ABG, 03/13/2025: Unremarkable UDS, 02/19/2025: Cannabinoids Plasma alcohol, 02/19/2025: 3 Urinalysis, 02/19, : WBC: 2, urine leukocyte esterase WBC/HB/PLT/MCV, 02/20/2025: 21.9/10.9/398/83.1, 03/13/2025: 11.7/6.5/424/85.4 PT/INR/PTT, 03/13/2025: 10.6/1/38.6 K, 02/19/2025: 1.7, 02/20/2025: 2.1 BUN/CR, 02/20/2025: 33/2.03, 03/13/2025: 51.93 HGB A1c, 06/03/2024: 13.1 Liver function tests, 02/20/2025: Unremarkable TG/HDL/LDL/HDL, 04/11/2024: 180/238/164/43 MAGALIS, 02/21/2025: 1. Technically good study. Sinus rhythm. 2. Left atrial enlargement. 3. Number Valves appear to be structurally normal. 4. Ventricular systolic function is preserved at 60% with normal RV function. 5. Doppler reveals mild TR. No significant mitral or aortic insufficiency. No atrial septal or ventricular septal defects 6. No masses or vegetations discernible. 7. The atrial appendage looks clean, no masses. No atrial or ventricular septal defects as noted. No abnormal shunting. Bubble study was negative 8. The valves appear to be structurally normal. No vegetations or signs of emboli present. Carotid Doppler, 02/20/2025: No hemodynamically significant stenosis noted in the right carotid system. No hemodynamically significant stenosis noted in the left carotid system. Chest X-ray, 03/19/25: 1. Endotracheal tube terminates 4cm from caleb. Other lines and tubes are unchanged in position. 2. Bilateral airspace disease similar to prior study. CT head, : Small age-indeterminate infarct extending from the right jorge radiata into the right basal ganglia. Further evaluation with MRI brain with diffusion-weighted imaging is recommended. CT head, , No acute intracranial abnormality. Multiple subacute bilateral lacunar infarcts as seen on prior MRI. MRI head, 02/19/2025: 1. There are multiple small foci of acute to subacute infarct in the right jorge radiata and right basal ganglia. There are also multiple small acute to subacute infarcts in the left anteromedial frontal lobe and in the left jorge radiata and left basal ganglia. There is no evidence of acute hemorrhage MR head, 03/21/2025: 1. Multiple foci of restricted diffusion involving the left corpus callosum, bilateral basal ganglia and right jorge radiata. The largest area involves the left splenium of the corpus callosum. These likely represent acute to subacute infarcts. There is no evidence of acute hemorrhage. 2. Moderate amount of fluid in the bilateral mastoid air cells MRI left foot, 02/22/25: Moderate dorsal subcutaneous edema. No evidence of osteomyelitis. No drainable fluid collection noted. Moderate myositis. vital signs Vital Sign Date Time Temp Pulse Resp B/P (MAP) Pulse Ox O2 Delivery O2 Flow Rate FiO2 04/02/25 08:00 98.6 112 15 155/88 (110) 95 98.6 04/02/25 06:37 Nasal Cannula 2.0 04/02/25 06:37 28 Total Intake and Output 04/01/25 04/01/25 04/02/25 15:00 23:00 07:00 Intake Total 375 ml 150 ml 0 ml Output Total 1200 ml 1000 ml Balance 375 ml -1050 ml -1000 ml medications Current Medications Medications Dose Ordered Sig/John Route Start Time Stop Time Status Last Admin Dose Admin Acetaminophen 650 mg Q6HP PRN PO 02/19/25 13:45 03/09/25 21:36 650 MG Diagnostic Test (Pha) 1 strip ACHS 02/19/25 17:00 04/02/25 07:01 1 STRIP Dextrose 50 ml UD PRN IV 02/19/25 15:45 03/14/25 21:04 50 ML Potassium Chloride 100 ml @ 50 mls/hr Q2H IV 02/19/25 23:15 02/20/25 05:14 Cancel Potassium Chloride 100 ml @ 50 mls/hr Q2H IV 02/20/25 07:15 02/20/25 11:14 UNV Gabapentin 100 mg TID PO 03/02/25 14:00 04/01/25 22:08 100 MG Calcium Acetate 1,334 mg TIDWMEALS PO 03/04/25 12:00 03/27/25 17:48 1,334 MG Ergocalciferol 50,000 unit Q7D PO 03/04/25 11:45 03/25/25 15:05 50,000 UNIT Zirconium Oxide 10 gm TID PO 03/07/25 14:00 Cancel Sodium Bicarbonate 50 ml/ Sodium Chloride 1,050 ml @ 100 mls/hr [id number] IV 03/07/25 11:45 Cancel Pantoprazole Sodium 40 mg BID IV 03/13/25 10:00 04/02/25 10:20 40 MG Albuterol 2.5 mg Q6HR NEB 03/13/25 12:00 04/02/25 06:37 2.5 MG Ipratropium [place] 0.5 mg Q6HR NEB 03/13/25 12:00 04/02/25 06:37 0.5 MG Saccharomyces Boulardii 250 mg DAILY PO 03/14/25 10:00 03/28/25 10:24 250 MG Enteral Nutritional Formula 1,000 ml 30ML/HR GT 03/14/25 08:45 03/28/25 17:07 1,000 ML Duloxetine HCl 30 mg DAILY PO 03/22/25 10:00 03/24/25 10:06 30 MG Lamotrigine 25 mg DAILY PO 03/22/25 10:00 03/28/25 10:24 25 MG Olanzapine 5 mg DAILY PO 03/22/25 10:00 03/29/25 10:53 5 MG Atorvastatin Calcium 80 mg HS PO 03/24/25 22:00 04/01/25 22:08 80 MG Enoxaparin Sodium 40 mg DAILY SC 03/25/25 10:00 04/02/25 10:21 40 MG Aspirin 81 mg DAILY NG 03/25/25 10:00 03/28/25 10:24 81 MG Acetylcysteine 100 mg Q6HR NEB 03/26/25 18:00 04/02/25 06:37 100 MG Midazolam HCl 50 ml @ 1 mls/hr Q24H IV 03/27/25 09:15 03/29/25 05:48 1 MLS/HR Nicardipine/ Sodium Chloride 200 ml @ 50 mls/hr Q4H IV 03/28/25 17:45 Lorazepam 2 mg Q2HPRN PRN IV 03/29/25 16:45 03/31/25 04:03 2 MG Insulin Human Regular ACHS SC 03/30/25 22:00 04/01/25 22:14 2 UNITS Piperacillin Sod/ Tazobactam Sod 100 ml @ 25 mls/hr Q8HR IV 03/31/25 14:00 04/02/25 05:54 25 MLS/HR Metoprolol Tartrate 25 mg BID PO 03/31/25 22:00 04/01/25 22:08 25 MG Hydralazine HCl 10 mg Q6HP PRN IV 03/31/25 19:45 04/01/25 08:56 10 MG Guaifenesin 200 mg Q4HP PRN PO 04/01/25 16:00 04/01/25 22:16 200 MG Metoprolol Tartrate 1.25 mg Q6HPRN PRN IV 04/01/25 16:00 Potassium Chloride/Sodium Chloride 1,000 ml @ 75 mls/hr [id number] IV 04/02/25 08:15 objective The patient is well-nourished and well-developed with no distress. MUSCULOSKELETAL EXAM: Status post right BKA MENTAL STATUS: Subjective CRANIAL NERVES: Labeled to homonymous hemianopsia, Pupils are equal round and reactive to light briskly, normal external eye movement, normal sensation and motor examination in the lateral trigeminal nerve distribution, no facial weaknes SENSATION: responses to pain stimuli. MOTOR: Normal tone in the upper and lower extremity. Normal muscle bulk. No fasciculations. She moves extremities, muscle power in the right extremities: 4/5, muscle power in the left extremities: Upper: 3/5, lower: 2-3/5 REFLEXES: Deep tendon reflexes are symmetrical. No pathological reflexes. CEREBELLAR/COORDINATION: Deferred GAIT/STATION: deferred. laboratory and microbiology Laboratory Tests 04/02/25 04:38 04/01/25 05:07 Test 04/02/25 04:38 Range/Units Serum Glucose 118 H 74-106 mg/dL Problem List Acute respiratory failure Excessive nasal bleeding Come company resolved Metabolic encephalopathy Hypoxic encephalopathy Toxic encephalopathy Left hemiparesis secondary stroke ? Left homonymous hemianopsia secondary to stroke General weakness Multiple acute/subacute strokes (MRI head: 02/19/2025, 03/21/2025) Status post right BKA Depression Assessment/Plan Monitoring Supportive treatment ICU Stabilize vitals Respiratory support Oxygen Antibiotics Aspirin 81 mg daily Lipitor 80mg Qd Cymbalta 30 mg b.i.d. DVT prophylaxis/Lovenox Quit tobacco smoking completely More recommendation per clinical course This medical document was created using an electronic medical record system with [employer] computerized dictation system. Although this document has been carefully reviewed, there may still be some phonetic and typographical errors. These areas are purely typographical due to imperfections of the software programs, and do not reflect any compromise in the patient's medical care. Prognosis poor Dietary Evaluation Review Comments: 1) Esau 1 pk BID 2) Refer [employer] on DC 3) Continue current plan of care Expected Outcomes/Goals: Pt will meet >75% estimated needs Fu 3-5 days Plan discussed with: Other NEELA RUEDA MD April 02, 2025 10:43
[2025-04-02] MEDS: SOD CHL 0.45% WITH 20MEQ KCL 1,000 ML IV SCH (14:57)
[2025-04-02] MEDS ORDERED: VANCOMYCIN PER PHARMACY 0 MG IV SCH (18:30)
--- NOTE | 2025-04-02 18:38 | DVHCONRES ---
Date Seen: April 02, 2025 Resident Creating Document: LEVY GONZALEZ RESIDENT Referring Physician Nomi Alanis Reason for Consultation Resp culture + ESBL Carbapenem resistant pseudomonas History of Present Illness This is a 64-year-old female who presented to the emergency room with a chief complaint of left-sided weakness. The patient presented with complaints of left-sided weakness associated with mild dysarthria. She underwent a brain MRI revealing multiple small foci of acute to subacute infarct in the right coronary radiata and right basal ganglia. Patient underwent MAGALIS, which showed no masses or vegetations discernible. The atrial appendage looks clean, no masses. No atrial or ventricular septal defects as noted. No abnormal shunting. Bubble study was negative. The valves appear to be structurally normal. No vegetations or signs of emboli present. During the course of her hospitalization, patient was intubated on 03/13/2025 as a result of a rapid response called, patient was extubated on 03/26/2025 and shortly reintubated the same day possibly due to right lobe aspiration pneumonia. Patient was finally extubated on 03/29/2025, currently patient is on 2L O2 via NC. Patient was also noted to have left knee swelling and erythema with cultures growing MSSA, for which she underwent Irrigation and debridement of left knee and left patella bursectomy on 03/07/2025. Past Medical History DM, L foot ulcer, hypertension, hyperlipidemia, anxiety, PAD s/p R BKA, depression, GERD Past Surgical History R BKA Family History: Cancer Aunt Family history: Diabetes mellitus Grandfather Social History Smoking: Denies Alcohol: Denies Drugs: Uses marijuana daily, denies using any other drugs Allergies: Coded Allergies: NO KNOWN ALLERGIES (Unverified , 01/27/21) Home Meds Active Scripts Buspirone Hcl (Buspirone Hcl) 5 Mg Tab, 1 TAB PO BID, #60 TAB 2 Refills Prov:DOMENICA SHAH MD 04/14/24 Pantoprazole Sodium Sesquihydr (Protonix) 40 Mg Tab, 40 MG PO DAILY for 30 Days, #30 TAB Prov:LEONARDO JACKSON MD 04/11/22 Olanzapine (OLANZAPINE) 5 Mg Tab, 5 MG PO DAILY for 30 Days, #30 TAB Prov:JOAQUIN ISAAC MD 05/09/20 Reported Medications Duloxetine HCl (Duloxetine HCl) 30 Mg Cap, 1 CAP PO DAILY 3/26/25 Atorvastatin Calcium (ATORVASTATIN CALCIUM) 40 Mg Tab, 1 TAB PO DAILY 02/19/25 Gemfibrozil (Gemfibrozil) 600 Mg Tab, 1 TAB PO BIDWM 02/19/25 Lamotrigine (Lamotrigine) 25 Mg Tab, 1 TAB PO DAILY 02/19/25 Hydroxyzine Hcl (Hydroxyzine Hcl) 25 Mg Tab, 1 TAB PO DAILY 02/19/25 Empagliflozin (Jardiance) 10 Mg Tab, 1 TAB PO DAILY 06/05/24 Ondansetron HCl (Ondansetron) 4 Mg Tab, 1 TAB PO BID PRN 06/05/24 Pioglitazone Hydrochloride (ACTOS TABLET) 30 Mg Tb, 1 TAB PO DAILY 06/05/24 Insulin Lispro (Insulin Lispro Kwikpen) 100 Unit/Ml Inj, UNITS SC 06/05/24 Insulin Glargine (Basaglar Kwikpen) 100 Unit/Ml Inj, UNITS SC 06/05/24 Tramadol Hcl (Tramadol Hcl) 50 Mg Tab, 1 TAB PO Q6HR 04/06/22 Current Medications Current Medications Medications (Trade) Dose Ordered Sig/John Route PRN Reason Start Time Stop Time Status Last Admin Potassium Chloride/Sodium Chloride 1,000 ml @ 75 mls/hr [id number] IV 04/02/25 08:15 04/02/25 14:57 Review of Systems Patient seen and examined at bedside. Patient is on 2L O2 via NC, responding in a hoarse, raspy voice and AOx3 at the time of my assessment. Eyes: No Pain, No Vision change, No Conjunctivae inflammation, No Eyelid inflammation, No Other, No Redness ENT: No Ear pain, No Ear discharge, No Nose pain, No Nose discharge, No Nose congestion, No Mouth pain, No Mouth swelling, No Throat pain, No Throat swelling, No Other Cardiovascular: No Chest Pain, No Palpitations, No Orthopnea, No Paroxysmal No Dyspnea, No Edema, No Lt Headedness, No Other Respiratory: Cough, No Dry, Shortness of breath, No SOB with exertion, No Wheezing, No Hemoptysis, No Pleuritic Pain, No Sputum, No Other Gastrointestinal: No Nausea, No Vomiting, No Abdominal Pain, Diarrhea, No Constipation, No Melena, No Hematochezia, No Other Genitourinary: No Dysuria, No Frequency, No Incontinence, No Hematuria, No Retention, No Other Musculoskeletal: No other, No neck pain, No shoulder pain, No arm pain, No back pain, No hand pain, No leg pain, No foot pain Skin: No Rash, No Lesions, No Jaundice, No Bruising, No Other Vital Signs Vital Signs Date Time Temp Pulse Resp B/P (MAP) Pulse Ox O2 Delivery O2 Flow Rate FiO2 04/02/25 17:45 127/73 04/02/25 16:00 19 97 Nasal Cannula* 2 28 04/02/25 15:00 103 04/02/25 12:00 98.1 98.1 Physical Exam General Appearance: Cooperative. Well developed. Well nourished. Head Exam: Normal inspection Neck Exam: Normal inspection. Non-tender. Normal alignment Pulmonary/Respiratory: Chest non-tender. decreased bilateral breath sounds, crackles, no wheezing. Cardiovascular/Chest: Tachycardic. No murmurs. No JVD. Abdominal Exam: Normal bowel sounds. Soft. normal abdomen, no visible veins, Nontender. No hepatospenomegaly. No masses Upper extremities: Left upper extremity swelling noted Ankle Exam: Negative ankle edema Lower extremities: Left foot ulcer noted on the dorsal aspect. Left knee swelling. Neuro/Mental Status: A&O x3. somewhat Coherent. Labs/Diagnostic Data Labs Test 04/02/25 16:35 04/02/25 04:38 04/01/25 14:56 04/01/25 08:30 Range/Units POC Glucose 128 H 70-106 mg/dl Sodium Level 150 H 136-145 mmol/L Potassium Level 2.9 L 3.5-5.1 mmol/L Chloride Level 116 H 98-107 mmol/L Carbon Dioxide Level 17 L 20-31 mmol/L Anion Gap 17 H 5-15 Blood Urea Nitrogen 28 H 9-23 mg/dL Creatinine 1.44 H 0.550-1.02 mg/dL Glomerular Filtration Rate Calc 43 >90 mL/min BUN/Creatinine Ratio 19.4 10.0-20.0 Serum Glucose 118 H 74-106 mg/dL Calcium Level 9.0 8.7-10.4 mg/dL Magnesium Level 2.2 1.6-2.6 mg/dL Blood Gas Specimen Type Venous Blood Gas Sample Site Vbg - n/a Blood Gas Patient Temperature 37.0 Arterial Blood Date Drawn [id number] Fermin Test N/a Venous Blood pH 7.441 H 7.320-7.430 Venous Blood pCO2 at Patient Temp 23.4 L 38.0-54.0 mmHg Venous Blood pO2 at Patient Temp 41.2 23.0-48.0 mmHg Venous Blood HCO3 15.6 L 22.0-29.0 mmol/L Venous Blood Base Excess -6.3 L -2.0-3.0 mmol/L Blood Gas Modality Nasal cannula FiO2 % 32.0 Test 04/01/25 05:07 03/31/25 09:22 03/31/25 04:58 03/30/25 07:19 Range/Units White Blood Count 19.2 #H 4.4-10.8 10^3/uL Red Blood Count 3.25 L 4.0-5.20 10^6/uL Hemoglobin 9.1 L 12.2-16.2 g/dL Hematocrit 27.3 L 36.0-46.0 % Mean Corpuscular Volume 84.0 80.0-100.0 fL Mean Corpuscular Hemoglobin 27.9 L 28.0-32.0 pg Mean Corpuscular Hemoglobin Concent 33.2 32.0-36.0 g/dL Red Cell Distribution Width 15.5 H 11.8-14.3 % Platelet Count 547 H 140-450 10^3/uL Mean Platelet Volume 8.3 6.9-10.8 fL Neutrophils (%) (Auto) 91.6 H 37.0-80.0 % Lymphocytes (%) (Auto) 4.4 L 10.0-50.0 % Monocytes (%) (Auto) 3.0 0.0-12.0 % Eosinophils (%) (Auto) 0.3 0.0-7.0 % Basophils (%) (Auto) 0.7 0.0-2.0 % Neutrophils # (Auto) 17.6 H 1.6-8.6 10 ^3/uL Lymphocytes # (Auto) 0.8 0.4-5.4 10 ^3/uL Monocytes # (Auto) 0.6 0-1.3 10 ^3/uL Eosinophils # (Auto) 0.1 0-0.8 10 ^3/uL Basophils # (Auto) 0.1 0-0.2 10 ^3/uL Nucleated Red Blood Cells 0.0 % Arterial Blood pH 7.445 7.350-7.450 Arterial Blood Partial Pressure CO2 26.1 L 32.0-45.0 mmHg Arterial Blood Partial Pressure O2 73.6 L 83.0-108.0 mmHg Arterial Blood HCO3 17.5 L 21.0-28.0 mmol/L Arterial Blood Oxygen Saturation 93.7 L 94.0-98.0 % Arterial Blood Base Excess -5.5 L -2.0-3.0 mmol/L Arterial Blood Oxyhemoglobin 93.0 L 94.0-98.0 % Arterial Blood Carboxyhemoglobin 0.1 L 0.5-1.5 % Arterial Blood Methemoglobin 0.6 0.0-1.5 % Blood Gas Total Hemoglobin 9.20 L 12.0-16.0 g/dL Total Bilirubin 0.2 0.2-1.0 mg/dL Aspartate Amino Transferase (AST) 18 13-40 U/L Alanine Aminotransferase (ALT) < 9 7-40 U/L Alkaline Phosphatase 230 H 46-116 U/L Total Protein 5.5 L 5.7-8.2 g/dL Albumin 2.6 L 3.2-4.8 g/dL Blood Gas EPAP 7 Blood Gas IPAP 12 Test 03/29/25 06:58 03/29/25 04:22 03/28/25 04:44 03/26/25 18:45 Range/Units Blood Gas Set Respiration Rate 20.0 Blood Gas Tidal Volume 350.0 Blood Gas PEEP or CPAP 5.0 Phosphorus Level 5.2 H 2.4-5.1 mg/dL Prothrombin Time 10.9 9.3-11.8 sec Prothrombin Time INR 1.03 0.9-1.15 Activated Partial Thromboplast Time 38.2 H 24.5-34.5 SEC Blood Gas Spontaneous Rate 32 Blood Gas Spontaneous Tidal Volume 392 Blood Gas Inspiratory Pressure 18.0 Bl Gas Inspiratory/Expiratory Ratio 1:1.9 Test 03/26/25 10:24 03/25/25 04:40 03/22/25 05:17 03/20/25 21:45 Range/Units Blood Gas Pressure Support 8 Blood Gas Critical Value Read Back Yes Blood Gas Notified Whom blanca Priest Blood Gas Notified Time [id number] Blood Gas Notified By osiel Boyd Triglycerides Level 214 H < 150 mg/dL Differential Total Cells Counted 100.0 100 Neutrophils % (Manual) 80 37.0-80.0 Band Neutrophils % (Manual) 2 Lymphocytes % (Manual) 13 10.0-50.0 Monocytes % (Manual) 4 0-12 Eosinophils % (Manual) 1 0-7 Basophils % (Manual) 0 0.0-2.0 Metamyelocytes % (manual) 0 Myelocytes % (Manual) 0 Promyelocytes % (Manual) 0 Blast Cells % (Manual) 0 Reactive Lymphocytes 0 Platelet Estimate Increased Anisocytosis (manual) Slight Test 03/16/25 04:35 03/13/25 02:35 03/07/25 05:23 03/06/25 04:52 Range/Units Lactate Dehydrogenase 355 H 120-246 U/L D-Dimer, Quantitative 2.32 H 0.0-0.49 mg/L FEU Lactic Acid Level 1.6 0.4-2.0 mmol/L Celso Cells Few Erythrocyte Sedimentation Rate 116 H 0-20 mm/hr C-Reactive Protein High Sensitivity 5.00 H <1.0 mg/dL Test 03/05/25 05:08 03/04/25 05:00 03/03/25 14:09 03/03/25 04:41 Range/Units Random Vancomycin Level 16.8 H 5-10 ug/mL Urine Creatinine 25.51 L 30.0-125.0 mg/dL Urine Protein/Creatinine Ratio 14.00 Urine Sodium 80 40-220 mmol/L Urine Total Protein 357.1 H 1-14 mg/dL Vitamin D 25-Hydroxy 7.2 L 30.0-100 ng/mL Parathyroid Hormone (Intact) 28.5 18.4-80.1 pg/mL Test 03/02/25 05:58 02/25/25 12:42 02/23/25 13:36 02/21/25 15:30 Range/Units Beta HCG, Quantitative 1.2 L 1.5-4.2 mIU/mL Body Fluid Source Knee fluid Body Fluid pH 8.0 Body Fluid WBC (Manual) 225 H 0-200 CUMM Body Fluid RBC (Manual) 325 0-2000 CUMM Body Fluid Mononuclear Cells 10 % Body Fluid Polymorphonuclear Cells 90 H 0-25 % Body Fluid Glucose 112 . mg/dL Anti-Nuclear Antibody Comment Comment . Cytoplasmic ANCA (c-ANCA) Antibody <1:20 Neg:<1:20 titer Anti-Proteinase 3 (c-ANCA) <0.2 0.0-0.9 units Atypical p-ANCA <1:20 Neg:<1:20 titer Perinuclear ANCA (p-ANCA) Antibody <1:20 Neg:<1:20 titer Myeloperoxidase Antibody <0.2 0.0-0.9 units NATALIIA-1 Antibody <0.2 0.0-0.9 AI SS-A/Ro Antibody <0.2 0.0-0.9 AI SS-B/La Antibody <0.2 0.0-0.9 AI Sm Antibody <0.2 0.0-0.9 AI COPER HAND Antibody <0.2 0.0-0.9 AI Scl-70 (Scleroderma) Antibody <0.2 0.0-0.9 AI Anti-Double Strand DNA Antibody <1 0-9 IU/mL Chromatin Antibody <0.2 0.0-0.9 AI Centromere B Antibody <0.2 0.0-0.9 AI Complement C3 172 H 82-167 mg/dL Complement C4 34 12-38 mg/dL Uric Acid 5.1 3.1-7.8 mg/dL Test 02/20/25 06:00 02/19/25 17:27 02/19/25 15:25 02/19/25 11:30 Range/Units Hemoglobin A1c 9.9 H <5.7 % A1C Cholesterol Level 304 H < 200 mg/dL LDL Cholesterol 207 H < 100 mg/dL HDL Cholesterol 38 L 40-59 mg/dL Beta-Hydroxybutyric Acid 0.922 H < 0.4 mmol/L Urine Color Colorless Yellow Urine Clarity Clear Clear Urine pH 6.5 5.0-9.0 Urine Specific [place] 1.008 1.001-1.035 Urine Protein 2+ H Negative Urine Ketones 1+ H Negative Urine Blood 1+ H Negative /uL Urine Nitrite Negative Negative Urine Bilirubin Negative Negative Urine Urobilinogen Normal Negative mg/dL Urine Leukocyte Esterase Negative Negative /uL Urine RBC 6 0 - 4 /hpf Urine Microscopic WBC 2 0-5 /HPF Urine Squamous Epithelial Cells Few <5 /hpf Urine Bacteria None seen None Seen /hpf Urine Glucose 2+ H Normal mg/dL Urine Opiates Screen Neg NEGATIVE Urine Fentanyl Screen Neg NEGATIVE Urine Barbiturates Screen Neg NEGATIVE Urine Phencyclidine Screen Neg NEGATIVE Urine Amphetamines Screen Neg NEGATIVE Urine Benzodiazepines Screen Neg NEGATIVE Urine Cocaine Screen Neg NEGATIVE Urine Cannabinoids Screen Pos NEGATIVE Troponin I High Sensitivity 25 </=34 ng/L Plasma/Serum Blood Alcohol < 3.0 <10 mg/dL Microbiology Date/Time Source Procedure Growth Status 03/26/25 17:24 Sputum Gram Stain - Final Resulted 03/26/25 17:24 Respiratory Culture - Preliminary Klebsiella pneumoniae - ESBL Pseudomonas aeruginosa Resulted 03/13/25 05:10 Blood Blood Culture - Final NO GROWTH AFTER 5 DAYS OF INCUBATION. Complete 03/06/25 14:37 Knee Left Gram Stain - Final Complete 03/06/25 14:37 Knee Left Anaerobic Culture - Final Complete 03/06/25 14:37 Aerobic Culture - Final Staphylococcus aureus Complete 03/04/25 13:29 Aspirate Gram Stain - Final Complete 03/04/25 13:29 Body Fluid Culture - Final Staphylococcus aureus Complete 02/19/25 17:27 Urine - [place] Urine Culture - Final Complete Assessment Pneumonia ESBL Klebsiella, Pseudomonas positive sputum culture Sepsis probably due to above Left patellar bursitis, I&D w bursectomy performed on 03/07/25 Left knee culture growing MSSA Left foot ulcer, dorsal aspect Multiple acute-subacute strokes Rule out C diff colitis Hypokalemia TATIANNA on CKD Peripheral arterial disease s/p R BKA 6 months ago Type 2 diabetes, uncontrolled Diabetic neuropathy Angioedema of the tongue Plan: Ordered KUB IV vancomycin for 2 weeks (04/02/2025-04/16/2025) Zerbaxa for 1 week (04/02/25-04/09/25) P.o. vancomycin 125 mg q.i.d. IV metronidazole Q 8 hours Hold off on PICC line for now, patient may be able to transitioned to and discharged on oral antibiotics Thank you so much for the opportunity to consult on your patient. ID team will follow the patient. In case of any questions or concerns please feel free to reach out. Plan discussed with Dr. Hill Plan discussed with patient Plan/Recommendation Addendum Dr Brian Hill Patient is a 64 year old female with a past medical history of diabetes, left foot ulcer , hypertension , hyperlipidemia , anxiety , peripheral arterial disease , depression , presents with left sided weakness and mild dysarthria . Had a brain MRI revealing multiple small falsi of acute to subacute infarcts in the right coronary radiata and right basal ganglia. Underwent MAGALIS which showed n o masses or vegetation . Bubble study was negative , valve restriction is normal . Patient was intubated on 03/13 and a rapid was called . Intubated due to airway protection and excavated on 03/26. but then shortly reintubated due to possible right lower lobe aspiration.Is now on 2 liters nasal canula and has left knee swelling ,erythema , cultures were growing MSSA , however on Clindamycin and irrigation and debridement of left patella on 03/07. She is noting having some diarrhea, with some left knee swelling persistent after debridement . Surgical roxanne are clean and left upper extremity swelling is noted . Crackles in the lungs and is tachycardic Assessment: 04/02:Patient is growing pseudomonas , ESBL klebsiella on sputum culture likely due to hospital acquired pneumonia. possible C diff colitis. As well as an MSSA left knee bursitis that has yet to be treated with appropriate antibiotics. Patient has peripheral arterial disease and right decay and uncontrolled diabetes Plan: - recommend KUB to further evaluate for colitis - recommend C diff testing and starting empirically on oral Vancomycin and Flagyl until results for C Diff testing come back - Start IV vancomycin for MSSA left knee cellulitis - Start Zerbaxa for hospital acquired pneumonia for at least 7 days and once completed and oral antibiotic for patients septic arthritis is a possibility - no need for additional workup at this time Agree with assessment and plan and spoke to Dr. Gonzalez Plan discussed with: Patient, Other LEVY GONZALEZ RESIDENT April 02, 2025 18:38 KATERINE HILL MD April 07, 2025 12:08
--- NOTE | 2025-04-02 19:09 | DVH ---
Date: 04/02/2025 06:40 PM Examination: XY KUB ABDOMEN SINGLE VIEW History: toxic megacolon Comparison: None TECHNIQUE: Frontal views of the abdomen was obtained. FINDINGS: Bowel gas pattern is unremarkable. The lung bases are unremarkable. No acute osseous abnormality identified. There is vascular calcification the abdominal aorta and both iliac vessels. IMPRESSION: 1. Nonobstructive bowel gas pattern.
[2025-04-02] MEDS: VANCOMYCIN 1GM/200ML PM 200 ML IV ONE (19:40)
[2025-04-02] MEDS: metroNIDAZOLE 500MG/100ML 100 ML IV SCH (21:41)
[2025-04-02] MEDS: VANCOMYCIN HCL 125 MG CAP PO SCH (22:00)
--- NOTE | 2025-04-02 22:22 | DVHPN2 ---
Progress Note - Dictate Date Seen: April 02, 2025 Medical Necessity Reason Pt with a Central, PICC or Fol: Yes The following are medically ne: Acosta Catheter Reason for acosta catheter: Strict I&O Subjective Patient was seen and evaluated in follow up in the ICU. Patient remains on 2 LPM NC. Patient is more interactive with her surroundings today. Patient's left side appears weaker. 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 vital signs Vital Sign Date Time Temp Pulse Resp B/P (MAP) Pulse Ox O2 Delivery O2 Flow Rate FiO2 04/02/25 12:23 101 20 100 04/02/25 12:00 Nasal Cannula* 2 28 04/02/25 11:29 171/98 04/02/25 08:00 98.6 98.6 Total Intake and Output 04/01/25 04/01/25 04/02/25 15:00 23:00 07:00 Intake Total 375 ml 150 ml 0 ml Output Total 1200 ml 1000 ml Balance 375 ml -1050 ml -1000 ml medications Current Medications Medications Dose Ordered Sig/John Route Start Time Stop Time Status Last Admin Dose Admin Acetaminophen 650 mg Q6HP PRN PO 02/19/25 13:45 03/09/25 21:36 650 MG Diagnostic Test (Pha) 1 strip ACHS 02/19/25 17:00 04/02/25 11:30 1 STRIP Dextrose 50 ml UD PRN IV 02/19/25 15:45 03/14/25 21:04 50 ML Potassium Chloride 100 ml @ 50 mls/hr Q2H IV 02/19/25 23:15 02/20/25 05:14 Cancel Potassium Chloride 100 ml @ 50 mls/hr Q2H IV 02/20/25 07:15 02/20/25 11:14 UNV Gabapentin 100 mg TID PO 03/02/25 14:00 04/01/25 22:08 100 MG Calcium Acetate 1,334 mg TIDWMEALS PO 03/04/25 12:00 03/27/25 17:48 1,334 MG Ergocalciferol 50,000 unit Q7D PO 03/04/25 11:45 03/25/25 15:05 50,000 UNIT Zirconium Oxide 10 gm TID PO 03/07/25 14:00 Cancel Sodium Bicarbonate 50 ml/ Sodium Chloride 1,050 ml @ 100 mls/hr [id number] IV 03/07/25 11:45 Cancel Pantoprazole Sodium 40 mg BID IV 03/13/25 10:00 04/02/25 10:20 40 MG Albuterol 2.5 mg Q6HR NEB 03/13/25 12:00 04/02/25 12:13 2.5 MG Ipratropium [place] 0.5 mg Q6HR NEB 03/13/25 12:00 04/02/25 12:13 0.5 MG Saccharomyces Boulardii 250 mg DAILY PO 03/14/25 10:00 03/28/25 10:24 250 MG Enteral Nutritional Formula 1,000 ml 30ML/HR GT 03/14/25 08:45 03/28/25 17:07 1,000 ML Duloxetine HCl 30 mg DAILY PO 03/22/25 10:00 03/24/25 10:06 30 MG Lamotrigine 25 mg DAILY PO 03/22/25 10:00 03/28/25 10:24 25 MG Olanzapine 5 mg DAILY PO 03/22/25 10:00 03/29/25 10:53 5 MG Atorvastatin Calcium 80 mg HS PO 03/24/25 22:00 04/01/25 22:08 80 MG Enoxaparin Sodium 40 mg DAILY SC 03/25/25 10:00 04/02/25 10:21 40 MG Aspirin 81 mg DAILY 03/25/25 10:00 03/28/25 10:24 81 MG Acetylcysteine 100 mg Q6HR NEB 03/26/25 18:00 04/02/25 12:13 100 MG Midazolam HCl 50 ml @ 1 mls/hr Q24H IV 03/27/25 09:15 03/29/25 05:48 1 MLS/HR Nicardipine/ Sodium Chloride 200 ml @ 50 mls/hr Q4H IV 03/28/25 17:45 Lorazepam 2 mg Q2HPRN PRN IV 03/29/25 16:45 03/31/25 04:03 2 MG Insulin Human Regular ACHS SC 03/30/25 22:00 04/02/25 11:30 2 UNITS Piperacillin Sod/ Tazobactam Sod 100 ml @ 25 mls/hr Q8HR IV 03/31/25 14:00 04/02/25 05:54 25 MLS/HR Metoprolol Tartrate 25 mg BID PO 03/31/25 22:00 04/01/25 22:08 25 MG Hydralazine HCl 10 mg Q6HP PRN IV 03/31/25 19:45 04/02/25 11:29 10 MG Guaifenesin 200 mg Q4HP PRN PO 04/01/25 16:00 04/01/25 22:16 200 MG Metoprolol Tartrate 1.25 mg Q6HPRN PRN IV 04/01/25 16:00 Potassium Chloride/Sodium Chloride 1,000 ml @ 75 mls/hr [id number] IV 04/02/25 08:15 objective GENERAL: Awake. EYES: PERRL, EOMI. Anicteric. HENT: Moist mucous membranes. LUNGS: Decreased breath sounds. CARDIOVASCULAR: Regular rate and rhythm. ABDOMEN: Soft, non-tender and non-distended. EXTREMITIES: No edema. SKIN: Warm, dry. laboratory and microbiology Laboratory Tests 04/02/25 04:38 04/01/25 05:07 Test 04/02/25 04:38 Range/Units Serum Glucose 118 H 74-106 mg/dL Problem List Multiple acute/subacute strokes. Hypokalemia. Acute kidney injury. Hypertension, newly diagnosed. Insulin-dependent diabetes mellitus. Status post right BKA. Dyslipidemia. Polysubstance use disorder. Left lower extremity cellulitis. Peripheral vascular disease status post right [id number] amputation 6 months ago. Sepsis. Diabetic neuropathy. Assessment/Plan Continued all current supportive medical care. Aspirin, Lipitor, Metoprolol. DVT and GI prophylactics. IV Hydralazine for SBP >160. IV antibiotics as ordered. Additional plan as per the hospital course. Critical care time of 45 minutes provided to include time spent evaluation of patient at bedside, when appropriate patient/family education for diagnosis, treatment plan, review of pertinent medical information and discussion of care with specialty providers and PCP. Dietary Evaluation Review Comments: 1) Esau 1 pk BID 2) Refer [employer] Rec[employer]iter on DC 3) Continue current plan of care Expected Outcomes/Goals: Pt will meet >75% estimated needs Fu 3-5 days Plan discussed with: Patient YANIRA WINN MD April 02, 2025 14:03
--- NOTE | 2025-04-02 23:05 | DVHPN2 ---
Progress Note - Dictate Date Seen: April 02, 2025 Medical Necessity Reason Pt with a Central, PICC or Fol: Yes The following are medically ne: Acosta Catheter Reason for acosta catheter: Strict I&O Subjective Patient seen and examined at bedside. Remains on supplemental oxygen Overnight events reviewed. vital signs Vital Sign Date Time Temp Pulse Resp B/P (MAP) Pulse Ox O2 Delivery O2 Flow Rate FiO2 04/02/25 20:15 101 24 127/67 (87) 96 04/02/25 20:00 98.1 98.1 04/02/25 18:55 Nasal Cannula 2.0 04/02/25 18:55 28 Total Intake and Output 04/01/25 04/01/25 04/02/25 15:00 23:00 07:00 Intake Total 375 ml 150 ml 0 ml Output Total 1200 ml 1000 ml Balance 375 ml -1050 ml -1000 ml medications Current Medications Medications Dose Ordered Sig/John Route Start Time Stop Time Status Last Admin Dose Admin Acetaminophen 650 mg Q6HP PRN PO 02/19/25 13:45 03/09/25 21:36 650 MG Diagnostic Test (Pha) 1 strip ACHS 02/19/25 17:00 04/02/25 17:00 1 STRIP Dextrose 50 ml UD PRN IV 02/19/25 15:45 03/14/25 21:04 50 ML Potassium Chloride 100 ml @ 50 mls/hr Q2H IV 02/19/25 23:15 02/20/25 05:14 Cancel Potassium Chloride 100 ml @ 50 mls/hr Q2H IV 02/20/25 07:15 02/20/25 11:14 UNV Gabapentin 100 mg TID PO 03/02/25 14:00 04/01/25 22:08 100 MG Calcium Acetate 1,334 mg TIDWMEALS PO 03/04/25 12:00 03/27/25 17:48 1,334 MG Ergocalciferol 50,000 unit Q7D PO 03/04/25 11:45 03/25/25 15:05 50,000 UNIT Zirconium Oxide 10 gm TID PO 03/07/25 14:00 Cancel Sodium Bicarbonate 50 ml/ Sodium Chloride 1,050 ml @ 100 mls/hr [id number] IV 03/07/25 11:45 Cancel Pantoprazole Sodium 40 mg BID IV 03/13/25 10:00 04/02/25 21:41 40 MG Albuterol 2.5 mg Q6HR NEB 03/13/25 12:00 04/02/25 18:55 2.5 MG Ipratropium [place] 0.5 mg Q6HR NEB 03/13/25 12:00 04/02/25 18:55 0.5 MG Saccharomyces Boulardii 250 mg DAILY PO 03/14/25 10:00 03/28/25 10:24 250 MG Enteral Nutritional Formula 1,000 ml 30ML/HR GT 03/14/25 08:45 03/28/25 17:07 1,000 ML Duloxetine HCl 30 mg DAILY PO 03/22/25 10:00 03/24/25 10:06 30 MG Lamotrigine 25 mg DAILY PO 03/22/25 10:00 03/28/25 10:24 25 MG Olanzapine 5 mg DAILY PO 03/22/25 10:00 03/29/25 10:53 5 MG Atorvastatin Calcium 80 mg HS PO 03/24/25 22:00 04/01/25 22:08 80 MG Enoxaparin Sodium 40 mg DAILY SC 03/25/25 10:00 04/02/25 10:21 40 MG Aspirin 81 mg DAILY NG 03/25/25 10:00 03/28/25 10:24 81 MG Acetylcysteine 100 mg Q6HR NEB 03/26/25 18:00 04/02/25 18:55 100 MG Midazolam HCl 50 ml @ 1 mls/hr Q24H IV 03/27/25 09:15 03/29/25 05:48 1 MLS/HR Nicardipine/ Sodium Chloride 200 ml @ 50 mls/hr Q4H IV 03/28/25 17:45 04/02/25 16:43 50 MLS/HR Lorazepam 2 mg Q2HPRN PRN IV 03/29/25 16:45 03/31/25 04:03 2 MG Insulin Human Regular ACHS SC 03/30/25 22:00 04/02/25 11:30 2 UNITS Piperacillin Sod/ Tazobactam Sod 100 ml @ 25 mls/hr Q8HR IV 03/31/25 14:00 04/02/25 21:41 25 MLS/HR Metoprolol Tartrate 25 mg BID PO 03/31/25 22:00 04/01/25 22:08 25 MG Hydralazine HCl 10 mg Q6HP PRN IV 03/31/25 19:45 04/02/25 11:29 10 MG Guaifenesin 200 mg Q4HP PRN PO 04/01/25 16:00 04/01/25 22:16 200 MG Metoprolol Tartrate 1.25 mg Q6HPRN PRN IV 04/01/25 16:00 Potassium Chloride/Sodium Chloride 1,000 ml @ 75 mls/hr [id number] IV 04/02/25 08:15 04/02/25 14:57 75 MLS/HR Vancomycin HCl 0 ml @ 0 mls/hr UD IV 04/02/25 18:30 04/14/25 18:30 Metronidazole 100 ml @ 100 mls/hr Q8HR IV 04/02/25 22:00 04/02/25 21:41 100 MLS/HR Vancomycin HCl 125 mg QID PO 04/02/25 22:00 objective Gen.: Patient lying in bed in no apparent distress. On supplemental oxygen. Head: Normocephalic, atraumatic. Eyes: EOMI/PERRLA. Ears: Normal hearing. Normal anatomy. Neck/trachea: Trachea midline, supple. Nose: Normal external anatomy. Mouth: Moist mucous membranes. Chest: Decreased air entry bilaterally. No wheezing or rhonchi. Cardiovascular: Positive S1, positive S2. Regular rate and rhythm. Abdomen: Positive bowel sounds in all 4 quadrants. Soft, non-tender, non- distended. : Deferred. Rectal: Deferred. Skin: Warm, dry. Intact. Extremities: 2+ radial pulses bilaterally. No lower extremity edema. Neuro: Awake, alert, oriented x3. No gross motor or sensory deficits. Cranial nerves II through XII intact. Gait not assessed. laboratory and microbiology Laboratory Tests 04/02/25 04:38 04/01/25 05:07 Test 04/02/25 04:38 Range/Units Serum Glucose 118 H 74-106 mg/dL Assessment/Plan Impression: Acute hypoxic respiratory failure Multiple acute/subacute strokes. Altered mental status Acute kidney injury. Hypertension, newly diagnosed. Insulin-dependent diabetes mellitus. Polysubstance use Peripheral vascular disease, s/p right BKA 6 months ago. Sepsis Events: On supplemental oxygen at 2 LPM NC Taper O2 as tolerated BiPAP PRN. Patient remains in metabolic acidosis. Head of bed elevation Aspiration precautions Continue bronchodilators/Mucomyst Continue antibiotics. ID recommendations appreciated Antitussive PRN cough. Monitor renal function Monitor electrolytes. Supplement as needed Potassium supplementation KUB showed nonobstructive bowel gas pattern. Protonix BID for GI prophylaxis Lovenox for DVT prophylaxis Labs and imaging reviewed. Rest of plan as noted below. Plan: S/p extubation on 03/29/25 Continue supplemental oxygen Titrate to maintain sats above 92% BiPAP PRN. HOB elevation Aspiration precautions Bronchodilators Continue antibiotics. F/u cultures. Accu-Cheks, ISS PRN. Monitor renal function Monitor electrolytes Supplement as needed Continue psych meds Tube feeds for nutritional support Pressors as necessary for hemodynamic support Titrate to keep mean arterial pressure greater than 65 mmHg. GI prophylaxis - Protonix. DVT prophylaxis - Lovenox. Prognosis: Poor given patient's multiple co-morbidities. Condition: Critical Rest of plan per hospitalist and other consultants. A total of 35 minutes of critical care time was spent reviewing the patient record, examining the patient, making a diagnostic and therapeutic plan, discussing this plan with the medical personnel, following up on diagnostic studies and following the patient for clinical stability excluding any and all procedures. At least 50% of this time was spent in direct, [id number] contact. Thank you, FRANCISCO Alanis, for allowing me to participate in this patient's care. Further recommendations will depend on the patient's clinical course. Please do not hesitate to contact me if you have any questions or concerns. This medical document was created using an electronic medical record system with [employer] dictation system. Although these documentations are being carefully reviewed, there may still be some phonetic and typographical changes. The errors are purely typographical, due to imperfection on the software program, and do not reflect any compromise in the patient's medical care. Dietary Evaluation Review Comments: 1) Esau 1 pk BID 2) Refer Banking Officer on DC 3) Continue current plan of care Expected Outcomes/Goals: Pt will meet >75% estimated needs Fu 3-5 days Plan discussed with: Other (ASHLEY Rene) Critical Care Time(min): 35 LARRY HERRERA MD April 02, 2025 23:05
[2025-04-03] VITALS (103 sets, daily range): BP systolic 112–188; BP diastolic 58–113; PULSE 76–103; RESP 10–25; TEMP 97–98.2; O2SAT 95–100
[2025-04-03 05:08] LABS: Basophils # (auto) 0.1 10 ^3/uL (0-0.2); Eosinophils # (auto) 0.2 10 ^3/uL (0-0.8); Eosinophils % (auto) 1.6 % (0.0-7.0); Hematocrit 25.1 % (36.0-46.0); Hemoglobin 8.3 g/dL (12.2-16.2); Lymphocytes # (auto) 1.2 10 ^3/uL (0.4-5.4); Lymphocytes % (auto) 10.1 % (10.0-50.0); Mean Corpuscular Hemoglobin 28.3 pg (28.0-32.0); Mean Corpuscular Hgb Conc. 33.1 g/dL (32.0-36.0); Mean Corpuscular Volume 85.5 fL (80.0-100.0); Monocytes # (auto) 0.6 10 ^3/uL (0-1.3); Monocytes % (auto) 4.8 % (0.0-12.0); Neutrophils # (auto) 9.8 10 ^3/uL (1.6-8.6); Neutrophils % (auto) 82.5 % (37.0-80.0); Nucleated Red Blood Cells % 0.1 %; Platelet Count (auto) 474 10^3/uL (140-450); Red Blood Cells 2.93 10^6/uL (4.0-5.20); Red Cell Distribution Width 15.9 % (11.8-14.3); White Blood Cell 11.9 10^3/uL (4.4-10.8)
[2025-04-03 05:23] LABS: Anion Gap 19 (5-15); Calcium 9.1 mg/dL (8.7-10.4)
[2025-04-03 05:28] LABS: BUN/Creatinine Ratio 18.4 (10.0-20.0)
[2025-04-03 05:37] LABS: Blood Urea Nitrogen 26 mg/dL (9-23); Carbon Dioxide 15 mmol/L (20-31); Chloride 117 mmol/L (98-107); Glucose 148 mg/dL (74-106); Potassium 3.1 mmol/L (3.5-5.1); Sodium 151 mmol/L (136-145)
[2025-04-03] MEDS: POTASSIUM CHL 20MEQ/50ML 50 ML IV SCH (06:46)
--- NOTE | 2025-04-03 09:51 | DVHPN2 ---
Subjective Denies any symptoms Reviewed: Care Plan, H&P, Labs, Medications, Previous Orders, Radiology, Other (Consultations) Changes from previous H/P or p: No Changes General: Per HPI Objective Vitals Vital Signs Date Time Temp Pulse Resp B/P (MAP) Pulse Ox O2 Delivery O2 Flow Rate FiO2 04/03/25 07:00 102 15 130/75 (93) 98 04/03/25 06:22 Nasal Cannula* 2 28 04/03/25 04:00 98.2 98.2 Intake/Output Intake and Output 04/03/25 07:00 Intake Total 1900 ml Output Total 1950 ml Balance -50 ml Intake Oral 0 ml IV Total 1900 ml Output Urine Total 1950 ml # Bowel Movements 3 Exam Assess patient will sitting in her wheelchair. General Appearance: Alert, Oriented X3, Cooperative, mild distress HEENT: Atraumatic, PERRLA Lungs: Clear to auscultation, Normal air movement, Other (NC at 2lpm) Cardiovascular: Regular rate, Normal S1, Normal S2 Abdomen: Normal bowel sounds, Soft Genitourinary: No Apparent Abnormalities, Other (Almaraz's) Extremities: Other (Right BKA) Neuro: Cranial nerves 3-12 NL, Other (Intubated and sedated) Skin: Dry, Intact, Wounds (See nurse notes and pictures) Psych/Mental Status: Other (Intubated and sedated) Medications Current Medications Medications Dose Ordered Sig/John Route Start Time Stop Time Status Last Admin Dose Admin Acetaminophen 650 mg Q6HP PRN PO 02/19/25 13:45 03/09/25 21:36 650 MG Diagnostic Test (Pha) 1 strip ACHS 02/19/25 17:00 04/03/25 07:00 1 STRIP Dextrose 50 ml UD PRN IV 02/19/25 15:45 03/14/25 21:04 50 ML Potassium Chloride 100 ml @ 50 mls/hr Q2H IV 02/19/25 23:15 02/20/25 05:14 Cancel Potassium Chloride 100 ml @ 50 mls/hr Q2H IV 02/20/25 07:15 02/20/25 11:14 UNV Gabapentin 100 mg TID PO 03/02/25 14:00 04/01/25 22:08 100 MG Calcium Acetate 1,334 mg TIDWMEALS PO 03/04/25 12:00 03/27/25 17:48 1,334 MG Ergocalciferol 50,000 unit Q7D PO 03/04/25 11:45 03/25/25 15:05 50,000 UNIT Zirconium Oxide 10 gm TID PO 03/07/25 14:00 Cancel Sodium Bicarbonate 50 ml/ Sodium Chloride 1,050 ml @ 100 mls/hr [id number] IV 03/07/25 11:45 Cancel Pantoprazole Sodium 40 mg BID IV 03/13/25 10:00 04/02/25 21:41 40 MG Albuterol 2.5 mg Q6HR NEB 03/13/25 12:00 04/03/25 06:22 2.5 MG Ipratropium [place] 0.5 mg Q6HR NEB 03/13/25 12:00 04/03/25 06:22 0.5 MG Saccharomyces Boulardii 250 mg DAILY PO 03/14/25 10:00 03/28/25 10:24 250 MG Enteral Nutritional Formula 1,000 ml 30ML/HR GT 03/14/25 08:45 03/28/25 17:07 1,000 ML Duloxetine HCl 30 mg DAILY PO 03/22/25 10:00 03/24/25 10:06 30 MG Lamotrigine 25 mg DAILY PO 03/22/25 10:00 03/28/25 10:24 25 MG Olanzapine 5 mg DAILY PO 03/22/25 10:00 03/29/25 10:53 5 MG Atorvastatin Calcium 80 mg HS PO 03/24/25 22:00 04/01/25 22:08 80 MG Enoxaparin Sodium 40 mg DAILY SC 03/25/25 10:00 04/02/25 10:21 40 MG Aspirin 81 mg DAILY NG 03/25/25 10:00 03/28/25 10:24 81 MG Acetylcysteine 100 mg Q6HR NEB 03/26/25 18:00 04/03/25 06:22 100 MG Midazolam HCl 50 ml @ 1 mls/hr Q24H IV 03/27/25 09:15 03/29/25 05:48 1 MLS/HR Nicardipine/ Sodium Chloride 200 ml @ 50 mls/hr Q4H IV 03/28/25 17:45 04/03/25 02:52 25 MLS/HR Lorazepam 2 mg Q2HPRN PRN IV 03/29/25 16:45 03/31/25 04:03 2 MG Insulin Human Regular ACHS SC 03/30/25 22:00 04/02/25 11:30 2 UNITS Piperacillin Sod/ Tazobactam Sod 100 ml @ 25 mls/hr Q8HR IV 03/31/25 14:00 04/03/25 05:36 25 MLS/HR Metoprolol Tartrate 25 mg BID PO 03/31/25 22:00 04/01/25 22:08 25 MG Hydralazine HCl 10 mg Q6HP PRN IV 03/31/25 19:45 04/02/25 11:29 10 MG Guaifenesin 200 mg Q4HP PRN PO 04/01/25 16:00 04/01/25 22:16 200 MG Metoprolol Tartrate 1.25 mg Q6HPRN PRN IV 04/01/25 16:00 Vancomycin HCl 0 ml @ 0 mls/hr UD IV 04/02/25 18:30 04/14/25 18:30 Metronidazole 100 ml @ 100 mls/hr Q8HR IV 04/02/25 22:00 04/03/25 05:35 100 MLS/HR Vancomycin HCl 125 mg QID PO 04/02/25 22:00 Potassium Chloride 50 ml @ 25 mls/hr Q2H IV 04/03/25 06:30 04/03/25 10:29 04/03/25 06:46 25 MLS/HR Potassium Chloride 40 meq/ Dextrose 1,020 ml @ 75 mls/hr [id number] IV 04/03/25 08:45 Laboratory Results Laboratory Tests 04/03/25 04:35 Chemistry Test 04/03/25 04:35 Calcium Level 9.1 mg/dL (8.7-10.4) Magnesium Level 2.0 mg/dL (1.6-2.6) Urinalysis Test 02/19/25 17:27 03/04/25 05:00 Urine Color Colorless (Yellow) Urine Clarity Clear (Clear) Urine pH 6.5 (5.0-9.0) Urine Specific [place] 1.008 (1.001-1.035) Urine Protein 2+ (Negative) H Urine Ketones 1+ (Negative) H Urine Blood 1+ /uL (Negative) H Urine Nitrite Negative (Negative) Urine Bilirubin Negative (Negative) Urine Urobilinogen Normal mg/dL (Negative) Urine Leukocyte Esterase Negative /uL (Negative) Urine RBC 6 /hpf (0 - 4) Urine Microscopic WBC 2 /HPF (0-5) Urine Squamous Epithelial Cells Few /hpf (<5) Urine Bacteria None seen /hpf (None Seen) Urine Glucose 2+ mg/dL (Normal) H Urine Creatinine 25.51 mg/dL (30.0-125.0) L Urine Protein/Creatinine Ratio 14.00 Urine Sodium 80 mmol/L (40-220) Urine Total Protein 357.1 mg/dL (1-14) H Microbiology Microbiology Date/Time Source Procedure Growth Status 03/26/25 17:24 Sputum Gram Stain - Final Resulted 03/26/25 17:24 Respiratory Culture - Preliminary Klebsiella pneumoniae - ESBL Pseudomonas aeruginosa Resulted 03/13/25 05:10 Blood Blood Culture - Final NO GROWTH AFTER 5 DAYS OF INCUBATION. Complete 03/06/25 14:37 Knee Left Gram Stain - Final Complete 03/06/25 14:37 Knee Left Anaerobic Culture - Final Complete 03/06/25 14:37 Aerobic Culture - Final Staphylococcus aureus Complete 03/04/25 13:29 Aspirate Gram Stain - Final Complete 03/04/25 13:29 Body Fluid Culture - Final Staphylococcus aureus Complete 02/19/25 17:27 Urine - [place] Urine Culture - Final Complete Labs and/or images reviewed: Labs reviewed by me, Image(s) reviewed by me Assessment/Plan Assessment/Plan Impression: Multiple acute/subacute strokes Left lower extremity cellulitis Rule out left septic knee Hypokalemia Acute kidney injury likely hemodynamically mediated due to vasomotor nephropathy Chronic kidney disease Peripheral vascular disease status post right [id number] amputation 6 months ago Poorly controlled type 2 diabetes Sepsis Hypertension Mixed hyperlipidemia Polysubstance use disorder Diabetic neuropathy -? Suicidal ideation -septic bursitis with Staphylococcus aureus -septic shock Angioedema of the tongue -hyponatremia -patient with ESBL and CRE in the sputum Plan: -events: No events overnight. Antibiotics per Infectious Disease for ESBL CRE. WBC count improved. Continues to be hypokalemic -change maintenance IV fluid to D5W with KCl 40 mEq use. -continue with pureed diet -strict aspiration precautions -PUD prophylaxis -bronchodilators -continue PPI Repeat labs and chest x-ray in a.m. Critical care time spent with patient discussing and formulating plan of care: 40 minutes. This does not include time spent performing procedures. This medical document was created using an electronic medical record system with [employer] dictation system. Although this document has been carefully reviewed, there may still be some phonetic and typographical errors. These areas are purely typographical due to imperfections of the software programs, and do not reflect any compromise in the patient's medical care. Plan discussed with: Patient, Other (RN) My Orders Orders - JUSTIN BONILLA NP Procedure Category Date Status Time * Infectious [place]- CONS 04/02/25 Transmitted K Saul 11:17 Clostridium Difficile LANCE 04/02/25 In Process Toxin 14:09 D5w 5% (Dextrose 5%) PHA 04/03/25 In Process W/Potassium Chlorid 08:45 Labetalol Hcl PHA 04/03/25 Verified (Labetalol Hcl) 09:45 Potassium LAB 04/03/25 Verified 15:00 Magnesium LAB 04/03/25 Verified 15:00 Basic Metabolic Panel LAB 04/04/25 Verified 05:00 Basic Metabolic Panel LAB 04/05/25 Verified 05:00 Basic Metabolic Panel LAB 04/06/25 Verified 05:00 Complete Blood Count LAB 04/04/25 Verified 05:00 Complete Blood Count LAB 04/05/25 Verified 05:00 Complete Blood Count LAB 04/06/25 Verified 05:00 Date of Service: April 03, 2025 Billing Provider: JUSTIN BONILLA NP Common Visit Codes: [id number] CARE 30-74 MIN JUSTIN BONILLA NP April 03, 2025 09:51
[2025-04-03] MEDS: POTASSIUM CHLORIDE 40 MEQ in D5W 5% 1,000 ML IV SCH (12:00)
--- NOTE | 2025-04-03 12:49 | DVHPNRES ---
Progress Note Date Seen: April 03, 2025 Resident Creating Document: PAULINA SWANSON RESIDENT Medical Necessity Reason Pt with a Central, PICC or Fol: Yes The following are medically ne: Acosta Catheter Reason for acosta catheter: Strict I&O Subjective Review of Systems Patient was seen and examined at bedside. She stated feeling well, denies any cough, fevers, chills. She only states having mild abdominal pain, diarrhea episodes have coming down. She is currently tolerating pureed diet. Patient is alert and oriented x3. Objective vital signs Vital Sign Date Time Temp Pulse Resp B/P (MAP) Pulse Ox O2 Delivery O2 Flow Rate FiO2 04/03/25 11:55 95 14 100 04/03/25 11:55 Nasal Cannula* 2 28 04/03/25 10:41 136/77 04/03/25 04:00 98.2 98.2 Total Intake and Output 04/02/25 04/02/25 04/03/25 15:00 23:00 07:00 Intake Total 100 ml 875 ml 925 ml Output Total 1100 ml 850 ml Balance 100 ml -225 ml 75 ml medications Current Medications Medications Dose Ordered Sig/John Route Start Time Stop Time Status Last Admin Dose Admin Acetaminophen 650 mg Q6HP PRN PO 02/19/25 13:45 03/09/25 21:36 650 MG Diagnostic Test (Pha) 1 strip ACHS 02/19/25 17:00 04/03/25 07:00 1 STRIP Dextrose 50 ml UD PRN IV 02/19/25 15:45 03/14/25 21:04 50 ML Potassium Chloride 100 ml @ 50 mls/hr Q2H IV 02/19/25 23:15 02/20/25 05:14 Cancel Potassium Chloride 100 ml @ 50 mls/hr Q2H IV 02/20/25 07:15 02/20/25 11:14 UNV Gabapentin 100 mg TID PO 03/02/25 14:00 04/01/25 22:08 100 MG Calcium Acetate 1,334 mg TIDWMEALS PO 03/04/25 12:00 04/03/25 10:43 1,334 MG Ergocalciferol 50,000 unit Q7D PO 03/04/25 11:45 03/25/25 15:05 50,000 UNIT Zirconium Oxide 10 gm TID PO 03/07/25 14:00 Cancel Sodium Bicarbonate 50 ml/ Sodium Chloride 1,050 ml @ 100 mls/hr [id number] IV 03/07/25 11:45 Cancel Pantoprazole Sodium 40 mg BID IV 03/13/25 10:00 04/03/25 10:41 40 MG Albuterol 2.5 mg Q6HR NEB 03/13/25 12:00 04/03/25 11:55 2.5 MG Ipratropium [place] 0.5 mg Q6HR NEB 03/13/25 12:00 04/03/25 11:55 0.5 MG Saccharomyces Boulardii 250 mg DAILY PO 03/14/25 10:00 04/03/25 10:43 250 MG Duloxetine HCl 30 mg DAILY PO 03/22/25 10:00 04/03/25 10:41 30 MG Lamotrigine 25 mg DAILY PO 03/22/25 10:00 04/03/25 10:43 25 MG Olanzapine 5 mg DAILY PO 03/22/25 10:00 04/03/25 10:43 5 MG Atorvastatin Calcium 80 mg HS PO 03/24/25 22:00 04/01/25 22:08 80 MG Enoxaparin Sodium 40 mg DAILY SC 03/25/25 10:00 04/03/25 10:45 40 MG Aspirin 81 mg DAILY NG 03/25/25 10:00 04/03/25 10:00 81 MG Acetylcysteine 100 mg Q6HR NEB 03/26/25 18:00 04/03/25 11:55 100 MG Midazolam HCl 50 ml @ 1 mls/hr Q24H IV 03/27/25 09:15 03/29/25 05:48 1 MLS/HR Nicardipine/ Sodium Chloride 200 ml @ 50 mls/hr Q4H IV 03/28/25 17:45 04/03/25 02:52 25 MLS/HR Insulin Human Regular ACHS SC 03/30/25 22:00 04/02/25 11:30 2 UNITS Metoprolol Tartrate 25 mg BID PO 03/31/25 22:00 04/03/25 10:41 25 MG Guaifenesin 200 mg Q4HP PRN PO 04/01/25 16:00 04/01/25 22:16 200 MG Vancomycin HCl 0 ml @ 0 mls/hr UD IV 04/02/25 18:30 04/14/25 18:30 Metronidazole 100 ml @ 100 mls/hr Q8HR IV 04/02/25 22:00 04/03/25 05:35 100 MLS/HR Vancomycin HCl 125 mg QID PO 04/02/25 22:00 Potassium Chloride 40 meq/ Dextrose 1,020 ml @ 75 mls/hr [id number] IV 04/03/25 08:45 Labetalol HCl 10 mg Q2HPRN PRN IV 04/03/25 09:45 Ceftolozane/ Tazobactam 1.5 gm/ Dextrose 100 ml @ 100 mls/hr Q8HR IV 04/03/25 14:00 04/10/25 13:59 Examination General Appearance: Cooperative. Well developed. Well nourished. Head Exam: Normal inspection Neck Exam: Normal inspection. Non-tender. Normal alignment Pulmonary/Respiratory: Chest non-tender. decreased bilateral breath sounds, crackles, no wheezing. Cardiovascular/Chest: Tachycardic. No murmurs. No JVD. Abdominal Exam: Normal bowel sounds. Soft. normal abdomen, no visible veins, Nontender. No hepatospenomegaly. No masses Upper extremities: Left upper extremity swelling noted Ankle Exam: Negative ankle edema Lower extremities: Left foot ulcer noted on the dorsal aspect. Left knee swelling with surgical roxanne. Neuro/Mental Status: A&O x3. somewhat Coherent. laboratory and microbiology Laboratory Tests 04/03/25 04:35 Test 04/03/25 04:35 Range/Units Serum Glucose 148 H 74-106 mg/dL Microbiology Date/Time Source Procedure Growth Status 03/26/25 17:24 Sputum Gram Stain - Final Resulted 03/26/25 17:24 Respiratory Culture - Preliminary Klebsiella pneumoniae - ESBL Pseudomonas aeruginosa Resulted 03/13/25 05:10 Blood Blood Culture - Final NO GROWTH AFTER 5 DAYS OF INCUBATION. Complete 03/06/25 14:37 Knee Left Gram Stain - Final Complete 03/06/25 14:37 Knee Left Anaerobic Culture - Final Complete 03/06/25 14:37 Aerobic Culture - Final Staphylococcus aureus Complete 03/04/25 13:29 Aspirate Gram Stain - Final Complete 03/04/25 13:29 Body Fluid Culture - Final Staphylococcus aureus Complete 02/19/25 17:27 Urine - [place] Urine Culture - Final Complete Labs and/or images reviewed: Labs reviewed by me, Image(s) reviewed by me Problem List/Assessment/Plan Problem List/Assessment/Plan Pneumonia ESBL Klebsiella, Carbapenemic resistant Pseudomonas positive sputum culture , possible due to ventilator associated pneumonia Sepsis probably due to above Left patellar bursitis, I&D w bursectomy performed on 03/07/25 Left knee culture growing MSSA Left foot ulcer, dorsal aspect Multiple acute-subacute strokes Ruled out C diff colitis Hypokalemia TATIANNA on CKD Peripheral arterial disease s/p R BKA 6 months ago Type 2 diabetes, uncontrolled Diabetic neuropathy Angioedema of the tongue Plan: IV vancomycin for 2 weeks Zerbaxa 1.5g IV tid for 1 week, renal dosing (04/03/25-04/10/25) DC P.o. vancomycin 125 mg dc IV metronidazole Ordered KUB, came back with nonobstructive bowel gas Hold off on PICC line for now, patient may be able to transitioned to and discharged on oral antibiotics 04/03: WBC is trending down, patient abdomen is soft, mildly tender on palpation, no diarrhea since last night. will dc vancomycin po and flagyl iv Thank you so much for the opportunity to consult on your patient. ID team will follow the patient. In case of any questions or concerns please feel free to reach out. Plan discussed with Dr. Hughes A ddendum Dr Brian Hughes Patient is a 64 year old female with a past medical history of diabetes, left foot ulcer , hypertension , hyperlipidemia , anxiety , peripheral arterial disease , depression , presents with left sided weakness and mild dysarthria . Had a brain MRI revealing multiple small falsi of acute to subacute infarcts in the right coronary radiata and right basal ganglia. Underwent MAGALIS which showed no masses or vegetation . Bubble study was negative , valve restriction is normal . Patient was intubated on 03/13 and a rapid was called . Intubated due to airway protection and excavated on 03/26. but then shortly reintubated due to possible right lower lobe aspiration.Is now on 2 liters nasal canula and has left knee swelling ,erythema , cultures were growing MSSA , however on Clindamycin and irrigation and debridement of left patella on 03/07. She is noting having some diarrhea, with some left knee swelling persistent after debridement . Surgical roxanne are clean and left upper extremity swelling is noted . Crackles in the lungs and is tachycardic Assessment: 04/02:Patient is growing pseudomonas , ESBL klebsiella on sputum culture likely due to hospital acquired pneumonia. possible C diff colitis. As well as an MSSA left knee bursitis that has yet to be treated with appropriate antibiotics. Patient has peripheral arterial disease and right decay and uncontrolled diabetes 04/03: patient is doing better , diarrhea has significantly improved and tolerating antibiotics without any fevers or chills . Patient is a bit drowsy . Patient has some mild angioedema of the tongue . C diff testing is negative Plan: - Stop Flagyl and oral vancomycin - recommend KUB to further evaluate for colitis - Continue IV vancomycin for MSSA left knee cellulitis - Continue Zerbaxa for hospital acquired pneumonia for at least 7 days and once completed and oral antibiotic for patients septic arthritis is a possibility - no need for additional workup at this time Assessment and plan reviewed and agree with what is written above my Dr. Velasco Authorized and Performed by: Katerine Hughes Total critical care time: Approximately 76 minutes Due to a high probability of clinically significant, life threatening deterioration, the patient required my highest level of preparedness to intervene emergently and I personally spent this critical care time directly and personally managing the patient. This critical care time included obtaining a history; examining the patient; pulse oximetry; ordering and review of studies; arranging urgent treatment with development of a management plan; evaluation of patient's response to treatment; frequent reassessment; and, discussions with other providers. This critical care time was performed to assess and manage the high probability of imminent, life-threatening deterioration that could result in multi-organ failure. It was exclusive of separately billable procedures and treating other patients and teaching time. Plan discussed with: Patient, Other (RN) Dietary Evaluation Review Comments: 1) Esau 1 pk BID 2) Refer Airline Pilot/First Officer on DC 3) Continue current plan of care Expected Outcomes/Goals: Pt will meet >75% estimated needs Fu 3-5 days PAULINA SWANSON April 03, 2025 12:49 KATERINE HUGHES MD April 07, 2025 12:15
[2025-04-03] MEDS: VANCOMYCIN 750MG KIT 100 ML IV ONE (13:59)
[2025-04-03] MEDS: LABETALOL HCL 20 MG/4 ML VL IV PRN (14:00)
[2025-04-03 15:32] LABS: Potassium 3.1 mmol/L (3.5-5.1)
[2025-04-03 15:34] LABS: Magnesium 1.9 mg/dL (1.6-2.6)
[2025-04-03] MEDS: CeftoloZANE-TAZOB 1g/0.5g VL 1.5 GM in D5W 5% 100 ML IV SCH (18:19)
--- NOTE | 2025-04-03 21:17 | DVHPN2 ---
Progress Note - Dictate Date Seen: April 03, 2025 Medical Necessity Reason Pt with a Central, PICC or Fol: Yes The following are medically ne: Acosta Catheter Reason for acosta catheter: Strict I&O Subjective Mr. Kaur is a 54 years old right-handed female with a history of hypertension, diabetes, dyslipidemia, anxiety, GERD, osteo myelitis status post right BKA, she came to the [facility] on 02/19/25 with a chief complaint of general weakness. He was transferred/ICU on 03/13/25 for ALOC, nasal bleeding and intubation I have seen and examined the patient, I have talked to her nurse, she is awake, oriented to person, place and she knows year, he was left arm weakness is better On nicardipine drip for blood pressure control Psychiatry consultation, 02/26/25: 1:1 sitter. Transferred to inpatient psychiatric facility. Cymbalta 30 mg b.i.d. ABG, 03/13/2025: Unremarkable UDS, 02/19/2025: Cannabinoids Plasma alcohol, 02/19/2025: 3 Urinalysis, 02/19, : WBC: 2, urine leukocyte esterase WBC/HB/PLT/MCV, 02/20/2025: 21.9/10.9/398/83.1, 03/13/2025: 11.7/6.5/424/85.4 PT/INR/PTT, 03/13/2025: 10.6/1/38.6 K, 02/19/2025: 1.7, 02/20/2025: 2.1 BUN/CR, 02/20/2025: 33/2.03, 03/13/2025: 51.93 HGB A1c, 06/03/2024: 13.1 Liver function tests, 02/20/2025: Unremarkable TG/HDL/LDL/HDL, 04/11/2024: 180/238/164/43 MAGALIS, 02/21/2025: 1. Technically good study. Sinus rhythm. 2. Left atrial enlargement. 3. Number Valves appear to be structurally normal. 4. Ventricular systolic function is preserved at 60% with normal RV function. 5. Doppler reveals mild TR. No significant mitral or aortic insufficiency. No atrial septal or ventricular septal defects 6. No masses or vegetations discernible. 7. The atrial appendage looks clean, no masses. No atrial or ventricular septal defects as noted. No abnormal shunting. Bubble study was negative 8. The valves appear to be structurally normal. No vegetations or signs of emboli present. Carotid Doppler, 02/20/2025: No hemodynamically significant stenosis noted in the right carotid system. No hemodynamically significant stenosis noted in the left carotid system. Chest X-ray, 03/19/25: 1. Endotracheal tube terminates 4cm from caleb. Other lines and tubes are unchanged in position. 2. Bilateral airspace disease similar to prior study. CT head, : Small age-indeterminate infarct extending from the right jorge radiata into the right basal ganglia. Further evaluation with MRI brain with diffusion-weighted imaging is recommended. CT head, , No acute intracranial abnormality. Multiple subacute bilateral lacunar infarcts as seen on prior MRI. MRI head, 02/19/2025: 1. There are multiple small foci of acute to subacute infarct in the right jorge radiata and right basal ganglia. There are also multiple small acute to subacute infarcts in the left anteromedial frontal lobe and in the left jorge radiata and left basal ganglia. There is no evidence of acute hemorrhage MR head, 03/21/2025: 1. Multiple foci of restricted diffusion involving the left corpus callosum, bilateral basal ganglia and right jorge radiata. The largest area involves the left splenium of the corpus callosum. These likely represent acute to subacute infarcts. There is no evidence of acute hemorrhage. 2. Moderate amount of fluid in the bilateral mastoid air cells MRI left foot, 02/22/25: Moderate dorsal subcutaneous edema. No evidence of osteomyelitis. No drainable fluid collection noted. Moderate myositis. vital signs Vital Sign Date Time Temp Pulse Resp B/P (MAP) Pulse Ox O2 Delivery O2 Flow Rate FiO2 04/03/25 19:30 89 19 127/72 (90) 99 04/03/25 19:04 Nasal Cannula* 1 24 04/03/25 16:00 97.8 97.8 Total Intake and Output 04/02/25 04/02/25 04/03/25 15:00 23:00 07:00 Intake Total 100 ml 875 ml 950 ml Output Total 1100 ml 850 ml Balance 100 ml -225 ml 100 ml medications Current Medications Medications Dose Ordered Sig/John Route Start Time Stop Time Status Last Admin Dose Admin Acetaminophen 650 mg Q6HP PRN PO 02/19/25 13:45 03/09/25 21:36 650 MG Diagnostic Test (Pha) 1 strip ACHS 02/19/25 17:00 04/03/25 17:00 1 STRIP Dextrose 50 ml UD PRN IV 02/19/25 15:45 03/14/25 21:04 50 ML Potassium Chloride 100 ml @ 50 mls/hr Q2H IV 02/19/25 23:15 02/20/25 05:14 Cancel Potassium Chloride 100 ml @ 50 mls/hr Q2H IV 02/20/25 07:15 02/20/25 11:14 UNV Gabapentin 100 mg TID PO 03/02/25 14:00 04/03/25 14:00 100 MG Calcium Acetate 1,334 mg TIDWMEALS PO 03/04/25 12:00 04/03/25 13:53 1,334 MG Ergocalciferol 50,000 unit Q7D PO 03/04/25 11:45 03/25/25 15:05 50,000 UNIT Zirconium Oxide 10 gm TID PO 03/07/25 14:00 Cancel Sodium Bicarbonate 50 ml/ Sodium Chloride 1,050 ml @ 100 mls/hr [id number] IV 03/07/25 11:45 Cancel Pantoprazole Sodium 40 mg BID IV 03/13/25 10:00 04/03/25 10:41 40 MG Albuterol 2.5 mg Q6HR NEB 03/13/25 12:00 04/03/25 19:04 2.5 MG Ipratropium [place] 0.5 mg Q6HR NEB 03/13/25 12:00 04/03/25 19:04 0.5 MG Saccharomyces Boulardii 250 mg DAILY PO 03/14/25 10:00 04/03/25 10:43 250 MG Duloxetine HCl 30 mg DAILY PO 03/22/25 10:00 04/03/25 10:41 30 MG Lamotrigine 25 mg DAILY PO 03/22/25 10:00 04/03/25 10:43 25 MG Olanzapine 5 mg DAILY PO 03/22/25 10:00 04/03/25 10:43 5 MG Atorvastatin Calcium 80 mg HS PO 03/24/25 22:00 04/01/25 22:08 80 MG Enoxaparin Sodium 40 mg DAILY SC 03/25/25 10:00 04/03/25 10:45 40 MG Aspirin 81 mg DAILY NG 03/25/25 10:00 04/03/25 10:00 81 MG Acetylcysteine 100 mg Q6HR NEB 03/26/25 18:00 04/03/25 19:04 100 MG Midazolam HCl 50 ml @ 1 mls/hr Q24H IV 03/27/25 09:15 03/29/25 05:48 1 MLS/HR Nicardipine/ Sodium Chloride 200 ml @ 50 mls/hr Q4H IV 03/28/25 17:45 04/03/25 18:20 50 MLS/HR Insulin Human Regular ACHS SC 03/30/25 22:00 04/03/25 18:40 3 UNITS Metoprolol Tartrate 25 mg BID PO 03/31/25 22:00 04/03/25 10:41 25 MG Guaifenesin 200 mg Q4HP PRN PO 04/01/25 16:00 04/01/25 22:16 200 MG Vancomycin HCl 0 ml @ 0 mls/hr UD IV 04/02/25 18:30 04/14/25 18:30 Potassium Chloride 40 meq/ Dextrose 1,020 ml @ 75 mls/hr [id number] IV 04/03/25 08:45 04/03/25 12:00 75 MLS/HR Labetalol HCl 10 mg Q2HPRN PRN IV 04/03/25 09:45 04/03/25 14:00 10 MG Ceftolozane/ Tazobactam 1.5 gm/ Dextrose 100 ml @ 100 mls/hr Q8HR IV 04/03/25 14:00 04/10/25 13:59 04/03/25 18:19 100 MLS/HR objective The patient is well-nourished and well-developed with no distress. MUSCULOSKELETAL EXAM: Status post right BKA MENTAL STATUS: Subjective CRANIAL NERVES: Labeled to homonymous hemianopsia, Pupils are equal round and reactive to light briskly, normal external eye movement, normal sensation and motor examination in the lateral trigeminal nerve distribution, no facial weaknes SENSATION: responses to pain stimuli. MOTOR: Normal tone in the upper and lower extremity. Normal muscle bulk. No fasciculations. She moves extremities, muscle power in the right extremities: 4/5, muscle power in the left extremities: Upper: 4/5, lower: 3/5 REFLEXES: Deep tendon reflexes are symmetrical. No pathological reflexes. CEREBELLAR/COORDINATION: Deferred GAIT/STATION: deferred. laboratory and microbiology Laboratory Tests 04/03/25 14:53 04/03/25 04:35 Test 04/03/25 04:35 Range/Units Serum Glucose 148 H 74-106 mg/dL Problem List Acute respiratory failure Excessive nasal bleeding Come company resolved Metabolic encephalopathy Hypoxic encephalopathy Toxic encephalopathy Left hemiparesis secondary stroke ? Left homonymous hemianopsia secondary to stroke General weakness Multiple acute/subacute strokes (MRI head: 02/19/2025, 03/21/2025) Status post right BKA Depression Assessment/Plan Monitoring Supportive treatment ICU Stabilize vitals Respiratory support Oxygen Antibiotics Aspirin 81 mg daily Lipitor 80mg Qd Cymbalta 30 mg b.i.d. DVT prophylaxis/Lovenox Quit tobacco smoking completely More recommendation per clinical course This medical document was created using an electronic medical record system with [employer] dictation system. Although this document has been carefully reviewed, there may still be some phonetic and typographical errors. These areas are purely typographical due to imperfections of the software programs, and do not reflect any compromise in the patient's medical care. Prognosis poor Dietary Evaluation Review Comments: 1) Esau 1 pk BID 2) Refer Video Production Assistant on DC 3) Continue current plan of care Expected Outcomes/Goals: Pt will meet >75% estimated needs Fu 3-5 days Plan discussed with: Other NEELA RUEDA MD April 03, 2025 21:17
--- NOTE | 2025-04-03 23:46 | DVHPN2 ---
Progress Note - Dictate Date Seen: April 03, 2025 Medical Necessity Reason Pt with a Central, PICC or Fol: Yes The following are medically ne: Acosta Catheter Reason for acosta catheter: Strict I&O Subjective Patient was seen and evaluated in follow up in the ICU. Patient remains on 2 LPM NC. WBC 11.9, HGB 8.3, HCT 25.1, NA 151, K 3.1, CL 117, BUN 26, GREEN TIRE INSPECTOR 1.41. Patient's roxanne were removed from knee. vital signs Vital Sign Date Time Temp Pulse Resp B/P (MAP) Pulse Ox O2 Delivery O2 Flow Rate FiO2 04/03/25 11:55 95 14 100 04/03/25 11:55 Nasal Cannula* 2 28 04/03/25 10:41 136/77 04/03/25 04:00 98.2 98.2 Total Intake and Output 04/02/25 04/02/25 04/03/25 15:00 23:00 07:00 Intake Total 100 ml 875 ml 925 ml Output Total 1100 ml 850 ml Balance 100 ml -225 ml 75 ml medications Current Medications Medications Dose Ordered Sig/John Route Start Time Stop Time Status Last Admin Dose Admin Acetaminophen 650 mg Q6HP PRN PO 02/19/25 13:45 03/09/25 21:36 650 MG Diagnostic Test (Pha) 1 strip ACHS 02/19/25 17:00 04/03/25 07:00 1 STRIP Dextrose 50 ml UD PRN IV 02/19/25 15:45 03/14/25 21:04 50 ML Potassium Chloride 100 ml @ 50 mls/hr Q2H IV 02/19/25 23:15 02/20/25 05:14 Cancel Potassium Chloride 100 ml @ 50 mls/hr Q2H IV 02/20/25 07:15 02/20/25 11:14 UNV Gabapentin 100 mg TID PO 03/02/25 14:00 04/01/25 22:08 100 MG Calcium Acetate 1,334 mg TIDWMEALS PO 03/04/25 12:00 04/03/25 10:43 1,334 MG Ergocalciferol 50,000 unit Q7D PO 03/04/25 11:45 03/25/25 15:05 50,000 UNIT Zirconium Oxide 10 gm TID PO 03/07/25 14:00 Cancel Sodium Bicarbonate 50 ml/ Sodium Chloride 1,050 ml @ 100 mls/hr [id number] IV 03/07/25 11:45 Cancel Pantoprazole Sodium 40 mg BID IV 03/13/25 10:00 04/03/25 10:41 40 MG Albuterol 2.5 mg Q6HR NEB 03/13/25 12:00 04/03/25 11:55 2.5 MG Ipratropium [place] 0.5 mg Q6HR NEB 03/13/25 12:00 04/03/25 11:55 0.5 MG Saccharomyces Boulardii 250 mg DAILY PO 03/14/25 10:00 04/03/25 10:43 250 MG Duloxetine HCl 30 mg DAILY PO 03/22/25 10:00 04/03/25 10:41 30 MG Lamotrigine 25 mg DAILY PO 03/22/25 10:00 04/03/25 10:43 25 MG Olanzapine 5 mg DAILY PO 03/22/25 10:00 04/03/25 10:43 5 MG Atorvastatin Calcium 80 mg HS PO 03/24/25 22:00 04/01/25 22:08 80 MG Enoxaparin Sodium 40 mg DAILY SC 03/25/25 10:00 04/03/25 10:45 40 MG Aspirin 81 mg DAILY NG 03/25/25 10:00 04/03/25 10:00 81 MG Acetylcysteine 100 mg Q6HR NEB 03/26/25 18:00 04/03/25 11:55 100 MG Midazolam HCl 50 ml @ 1 mls/hr Q24H IV 03/27/25 09:15 03/29/25 05:48 1 MLS/HR Nicardipine/ Sodium Chloride 200 ml @ 50 mls/hr Q4H IV 03/28/25 17:45 04/03/25 02:52 25 MLS/HR Insulin Human Regular ACHS SC 03/30/25 22:00 04/02/25 11:30 2 UNITS Metoprolol Tartrate 25 mg BID PO 03/31/25 22:00 04/03/25 10:41 25 MG Guaifenesin 200 mg Q4HP PRN PO 04/01/25 16:00 04/01/25 22:16 200 MG Vancomycin HCl 0 ml @ 0 mls/hr UD IV 04/02/25 18:30 04/14/25 18:30 Metronidazole 100 ml @ 100 mls/hr Q8HR IV 04/02/25 22:00 04/03/25 05:35 100 MLS/HR Vancomycin HCl 125 mg QID PO 04/02/25 22:00 Potassium Chloride 40 meq/ Dextrose 1,020 ml @ 75 mls/hr [id number] IV 04/03/25 08:45 Labetalol HCl 10 mg Q2HPRN PRN IV 04/03/25 09:45 Ceftolozane/ Tazobactam 1.5 gm/ Dextrose 100 ml @ 100 mls/hr Q8HR IV 04/03/25 14:00 04/10/25 13:59 objective GENERAL: Awake. EYES: PERRL, EOMI. Anicteric. HENT: Moist mucous membranes. LUNGS: Decreased breath sounds. CARDIOVASCULAR: Regular rate and rhythm. ABDOMEN: Soft, non-tender and non-distended. EXTREMITIES: No edema. SKIN: Warm, dry. laboratory and microbiology Laboratory Tests 04/03/25 04:35 Test 04/03/25 04:35 Range/Units Serum Glucose 148 H 74-106 mg/dL Problem List Multiple acute/subacute strokes. Hypokalemia. Acute kidney injury. Hypertension, newly diagnosed. Insulin-dependent diabetes mellitus. Status post right BKA. Dyslipidemia. Polysubstance use disorder. Left lower extremity cellulitis. Peripheral vascular disease status post right [id number] amputation 6 months ago. Sepsis. Diabetic neuropathy. Assessment/Plan Continued all current supportive medical care. Aspirin, Lipitor, Metoprolol. DVT and GI prophylactics. IV Hydralazine for SBP >160. IV antibiotics as ordered. Additional plan as per the hospital course. Critical care time of 45 minutes provided to include time spent evaluation of patient at bedside, when appropriate patient/family education for diagnosis, treatment plan, review of pertinent medical information and discussion of care with specialty providers and PCP. Dietary Evaluation Review Comments: 1) Esau 1 pk BID 2) Refer Solar Thermal Technician on DC 3) Continue current plan of care Expected Outcomes/Goals: Pt will meet >75% estimated needs Fu 3-5 days Plan discussed with: Patient YANIRA WINN MD April 03, 2025 12:23
--- NOTE | 2025-04-03 23:52 | DVHPN2 ---
Progress Note - Dictate Date Seen: April 03, 2025 Medical Necessity Reason Pt with a Central, PICC or Fol: Yes The following are medically ne: Acosta Catheter Reason for acosta catheter: Strict I&O Subjective Patient seen and examined at bedside. Remains on supplemental oxygen Overnight events reviewed. vital signs Vital Sign Date Time Temp Pulse Resp B/P (MAP) Pulse Ox O2 Delivery O2 Flow Rate FiO2 04/03/25 23:15 88 19 128/76 (93) 98 04/03/25 22:00 Nasal Cannula* 2 28 04/03/25 20:00 97.4 97.4 Total Intake and Output 04/02/25 04/02/25 04/03/25 15:00 23:00 07:00 Intake Total 100 ml 875 ml 950 ml Output Total 1100 ml 850 ml Balance 100 ml -225 ml 100 ml medications Current Medications Medications Dose Ordered Sig/John Route Start Time Stop Time Status Last Admin Dose Admin Acetaminophen 650 mg Q6HP PRN PO 02/19/25 13:45 03/09/25 21:36 650 MG Diagnostic Test (Pha) 1 strip ACHS 02/19/25 17:00 04/03/25 21:59 1 STRIP Dextrose 50 ml UD PRN IV 02/19/25 15:45 03/14/25 21:04 50 ML Potassium Chloride 100 ml @ 50 mls/hr Q2H IV 02/19/25 23:15 02/20/25 05:14 Cancel Potassium Chloride 100 ml @ 50 mls/hr Q2H IV 02/20/25 07:15 02/20/25 11:14 UNV Gabapentin 100 mg TID PO 03/02/25 14:00 04/03/25 14:00 100 MG Calcium Acetate 1,334 mg TIDWMEALS PO 03/04/25 12:00 04/03/25 13:53 1,334 MG Ergocalciferol 50,000 unit Q7D PO 03/04/25 11:45 03/25/25 15:05 50,000 UNIT Zirconium Oxide 10 gm TID PO 03/07/25 14:00 Cancel Sodium Bicarbonate 50 ml/ Sodium Chloride 1,050 ml @ 100 mls/hr [id number] IV 03/07/25 11:45 Cancel Pantoprazole Sodium 40 mg BID IV 03/13/25 10:00 04/03/25 21:56 40 MG Albuterol 2.5 mg Q6HR NEB 03/13/25 12:00 04/03/25 19:04 2.5 MG Ipratropium [place] 0.5 mg Q6HR NEB 03/13/25 12:00 04/03/25 19:04 0.5 MG Saccharomyces Boulardii 250 mg DAILY PO 03/14/25 10:00 04/03/25 10:43 250 MG Duloxetine HCl 30 mg DAILY PO 03/22/25 10:00 04/03/25 10:41 30 MG Lamotrigine 25 mg DAILY PO 03/22/25 10:00 04/03/25 10:43 25 MG Olanzapine 5 mg DAILY PO 03/22/25 10:00 04/03/25 10:43 5 MG Atorvastatin Calcium 80 mg HS PO 03/24/25 22:00 04/01/25 22:08 80 MG Enoxaparin Sodium 40 mg DAILY SC 03/25/25 10:00 04/03/25 10:45 40 MG Aspirin 81 mg DAILY NG 03/25/25 10:00 04/03/25 10:00 81 MG Acetylcysteine 100 mg Q6HR NEB 03/26/25 18:00 04/03/25 19:04 100 MG Midazolam HCl 50 ml @ 1 mls/hr Q24H IV 03/27/25 09:15 03/29/25 05:48 1 MLS/HR Nicardipine/ Sodium Chloride 200 ml @ 50 mls/hr Q4H IV 03/28/25 17:45 04/03/25 22:15 50 MLS/HR Insulin Human Regular ACHS SC 03/30/25 22:00 04/03/25 21:58 3 UNITS Metoprolol Tartrate 25 mg BID PO 03/31/25 22:00 04/03/25 10:41 25 MG Guaifenesin 200 mg Q4HP PRN PO 04/01/25 16:00 04/01/25 22:16 200 MG Vancomycin HCl 0 ml @ 0 mls/hr UD IV 04/02/25 18:30 04/14/25 18:30 Potassium Chloride 40 meq/ Dextrose 1,020 ml @ 75 mls/hr [id number] IV 04/03/25 08:45 04/03/25 12:00 75 MLS/HR Labetalol HCl 10 mg Q2HPRN PRN IV 04/03/25 09:45 04/03/25 14:00 10 MG Ceftolozane/ Tazobactam 1.5 gm/ Dextrose 100 ml @ 100 mls/hr Q8HR IV 04/03/25 14:00 04/10/25 13:59 04/03/25 21:57 100 MLS/HR objective Gen.: Patient lying in bed in no apparent distress. On supplemental oxygen. Head: Normocephalic, atraumatic. Eyes: EOMI/PERRLA. Ears: Normal hearing. Normal anatomy. Neck/trachea: Trachea midline, supple. Nose: Normal external anatomy. Mouth: Moist mucous membranes. Chest: Decreased air entry bilaterally. No wheezing or rhonchi. Cardiovascular: Positive S1, positive S2. Regular rate and rhythm. Abdomen: Positive bowel sounds in all 4 quadrants. Soft, non-tender, non- distended. : Deferred. Rectal: Deferred. Skin: Warm, dry. Intact. Extremities: 2+ radial pulses bilaterally. No lower extremity edema. Neuro: Awake, alert, oriented x3. No gross motor or sensory deficits. Cranial nerves II through XII intact. Gait not assessed. laboratory and microbiology Laboratory Tests 04/03/25 14:53 04/03/25 04:35 Test 04/03/25 04:35 Range/Units Serum Glucose 148 H 74-106 mg/dL Assessment/Plan Impression: Acute hypoxic respiratory failure Multiple acute/subacute strokes. Altered mental status Acute kidney injury. Hypertension, newly diagnosed. Insulin-dependent diabetes mellitus. Polysubstance use Peripheral vascular disease, s/p right BKA 6 months ago. Sepsis Events: On supplemental oxygen at 2 LPM NC Taper O2 as tolerated Patient is feeling well No cough, fever/chills. Mild abdominal pain. Diarrhea improved, tolerating puree diet. Head of bed elevation Aspiration precautions Continue bronchodilators/Mucomyst Continue antibiotics. ID recommendations appreciated Antitussive PRN cough. Monitor H&H Monitor renal function Monitor electrolytes. Supplement as needed Potassium supplementation Protonix BID for GI prophylaxis Lovenox for DVT prophylaxis Labs and imaging reviewed. Rest of plan as noted below. Plan: S/p extubation on 03/29/25 Continue supplemental oxygen Titrate to maintain sats above 92% HOB elevation Aspiration precautions Bronchodilators Continue antibiotics. F/u cultures. Accu-Cheks, ISS PRN. Monitor renal function Monitor electrolytes Supplement as needed Continue psych meds Tube feeds for nutritional support Pressors as necessary for hemodynamic support Titrate to keep mean arterial pressure greater than 65 mmHg. GI prophylaxis - Protonix. DVT prophylaxis - Lovenox. Prognosis: Poor given patient's multiple co-morbidities. Condition: Critical Rest of plan per hospitalist and other consultants. A total of 35 minutes of critical care time was spent reviewing the patient record, examining the patient, making a diagnostic and therapeutic plan, discussing this plan with the medical personnel, following up on diagnostic studies and following the patient for clinical stability excluding any and all procedures. At least 50% of this time was spent in direct, [id number] contact. Thank you, FRANCISCO Alanis, for allowing me to participate in this patient's care. Further recommendations will depend on the patient's clinical course. Please do not hesitate to contact me if you have any questions or concerns. This medical document was created using an electronic medical record system with [employer] computerized dictation system. Although these documentations are being carefully reviewed, there may still be some phonetic and typographical changes. The errors are purely typographical, due to imperfection on the software program, and do not reflect any compromise in the patient's medical care. Dietary Evaluation Review Comments: 1) Esau 1 pk BID 2) Refer Radiology Specialist on DC 3) Continue current plan of care Expected Outcomes/Goals: Pt will meet >75% estimated needs Fu 3-5 days Plan discussed with: Patient, Other (RN) LARRY HERRERA MD April 03, 2025 23:52
[2025-04-04] VITALS (102 sets, daily range): BP systolic 100–181; BP diastolic 58–106; PULSE 71–99; RESP 8–21; TEMP 97–98.1; O2SAT 73–100
[2025-04-04 05:01] LABS: Basophils # (auto) 0.1 10 ^3/uL (0-0.2); Eosinophils # (auto) 0.4 10 ^3/uL (0-0.8)
[2025-04-04 05:05] LABS: Basophils % (auto) 0.8 % (0.0-2.0); Eosinophils % (auto) 3.5 % (0.0-7.0); Hematocrit 24.9 % (36.0-46.0); Hemoglobin 8.4 g/dL (12.2-16.2); Lymphocytes # (auto) 1.3 10 ^3/uL (0.4-5.4); Lymphocytes % (auto) 12.6 % (10.0-50.0); Mean Corpuscular Hemoglobin 28.5 pg (28.0-32.0); Mean Corpuscular Hgb Conc. 33.6 g/dL (32.0-36.0); Mean Corpuscular Volume 84.9 fL (80.0-100.0); Monocytes # (auto) 0.5 10 ^3/uL (0-1.3); Monocytes % (auto) 4.8 % (0.0-12.0); Neutrophils # (auto) 8.3 10 ^3/uL (1.6-8.6); Neutrophils % (auto) 78.3 % (37.0-80.0); Platelet Count (auto) 455 10^3/uL (140-450); Red Blood Cells 2.93 10^6/uL (4.0-5.20); Red Cell Distribution Width 16.3 % (11.8-14.3); White Blood Cell 10.7 10^3/uL (4.4-10.8)
[2025-04-04 05:15] LABS: Anion Gap 12 (5-15)
[2025-04-04 05:21] LABS: BUN/Creatinine Ratio 19.2 (10.0-20.0)
[2025-04-04 05:50] LABS: Blood Urea Nitrogen 25 mg/dL (9-23); Calcium 8.4 mg/dL (8.7-10.4); Carbon Dioxide 19 mmol/L (20-31); Chloride 118 mmol/L (98-107); Glucose 192 mg/dL (74-106); Potassium 3.1 mmol/L (3.5-5.1); Sodium 149 mmol/L (136-145)
[2025-04-04] MEDS ORDERED: SODIUM CHL 0.9% 100 ML IV ONE (07:00)
[2025-04-04] MEDS: MAGNESIUM SULFATE 1GM/100ML 100 ML IV ONE (07:10)
[2025-04-04] MEDS: POTASSIUM CHL 20MEQ/50ML 50 ML IV SCH (07:11)
--- NOTE | 2025-04-04 07:54 | DVHPN2 ---
Subjective Denies any symptoms Reviewed: Care Plan, H&P, Labs, Medications, Previous Orders, Radiology, Other (Consultations) Changes from previous H/P or p: No Changes General: Per HPI Objective Vitals Vital Signs Date Time Temp Pulse Resp B/P (MAP) Pulse Ox O2 Delivery O2 Flow Rate FiO2 04/04/25 07:00 81 17 111/70 (84) 99 04/04/25 06:00 Room Air* 0 21 04/04/25 04:00 97.7 97.7 Intake/Output Intake and Output 04/04/25 07:00 Intake Total 2575 ml Output Total 1700 ml Balance 875 ml Intake Oral 300 ml IV Total 2275 ml Output Urine Total 1700 ml # Bowel Movements 1 Exam Assess patient will sitting in her wheelchair. General Appearance: Alert, Oriented X3, Cooperative, mild distress HEENT: Atraumatic, PERRLA Lungs: Clear to auscultation, Normal air movement, Other (NC at 2lpm) Cardiovascular: Regular rate, Normal S1, Normal S2 Abdomen: Normal bowel sounds, Soft Genitourinary: No Apparent Abnormalities, Other (Almaraz's) Extremities: Other (Right BKA) Neuro: Cranial nerves 3-12 NL, Other (Intubated and sedated) Skin: Dry, Intact, Wounds (See nurse notes and pictures) Psych/Mental Status: Other (Intubated and sedated) Medications Current Medications Medications Dose Ordered Sig/John Route Start Time Stop Time Status Last Admin Dose Admin Acetaminophen 650 mg Q6HP PRN PO 02/19/25 13:45 03/09/25 21:36 650 MG Diagnostic Test (Pha) 1 strip ACHS 02/19/25 17:00 04/04/25 06:11 1 STRIP Dextrose 50 ml UD PRN IV 02/19/25 15:45 03/14/25 21:04 50 ML Potassium Chloride 100 ml @ 50 mls/hr Q2H IV 02/19/25 23:15 02/20/25 05:14 Cancel Potassium Chloride 100 ml @ 50 mls/hr Q2H IV 02/20/25 07:15 02/20/25 11:14 UNV Gabapentin 100 mg TID PO 03/02/25 14:00 04/03/25 14:00 100 MG Calcium Acetate 1,334 mg TIDWMEALS PO 03/04/25 12:00 04/03/25 13:53 1,334 MG Ergocalciferol 50,000 unit Q7D PO 03/04/25 11:45 03/25/25 15:05 50,000 UNIT Zirconium Oxide 10 gm TID PO 03/07/25 14:00 Cancel Sodium Bicarbonate 50 ml/ Sodium Chloride 1,050 ml @ 100 mls/hr [id number] IV 03/07/25 11:45 Cancel Pantoprazole Sodium 40 mg BID IV 03/13/25 10:00 04/03/25 21:56 40 MG Albuterol 2.5 mg Q6HR NEB 03/13/25 12:00 04/04/25 00:07 2.5 MG Ipratropium [place] 0.5 mg Q6HR NEB 03/13/25 12:00 04/04/25 00:07 0.5 MG Saccharomyces Boulardii 250 mg DAILY PO 03/14/25 10:00 04/03/25 10:43 250 MG Duloxetine HCl 30 mg DAILY PO 03/22/25 10:00 04/03/25 10:41 30 MG Lamotrigine 25 mg DAILY PO 03/22/25 10:00 04/03/25 10:43 25 MG Olanzapine 5 mg DAILY PO 03/22/25 10:00 04/03/25 10:43 5 MG Atorvastatin Calcium 80 mg HS PO 03/24/25 22:00 04/01/25 22:08 80 MG Enoxaparin Sodium 40 mg DAILY SC 03/25/25 10:00 04/03/25 10:45 40 MG Aspirin 81 mg DAILY NG 03/25/25 10:00 04/03/25 10:00 81 MG Acetylcysteine 100 mg Q6HR NEB 03/26/25 18:00 04/04/25 00:07 100 MG Midazolam HCl 50 ml @ 1 mls/hr Q24H IV 03/27/25 09:15 03/29/25 05:48 1 MLS/HR Nicardipine/ Sodium Chloride 200 ml @ 50 mls/hr Q4H IV 03/28/25 17:45 04/04/25 06:10 50 MLS/HR Insulin Human Regular ACHS SC 03/30/25 22:00 04/04/25 06:11 3 UNITS Metoprolol Tartrate 25 mg BID PO 03/31/25 22:00 04/03/25 10:41 25 MG Guaifenesin 200 mg Q4HP PRN PO 04/01/25 16:00 04/01/25 22:16 200 MG Vancomycin HCl 0 ml @ 0 mls/hr UD IV 04/02/25 18:30 04/14/25 18:30 Potassium Chloride 40 meq/ Dextrose 1,020 ml @ 75 mls/hr [id number] IV 04/03/25 08:45 04/04/25 05:07 75 MLS/HR Labetalol HCl 10 mg Q2HPRN PRN IV 04/03/25 09:45 04/03/25 14:00 10 MG Ceftolozane/ Tazobactam 1.5 gm/ Dextrose 100 ml @ 100 mls/hr Q8HR IV 04/03/25 14:00 04/10/25 13:59 04/04/25 06:12 100 MLS/HR Potassium Chloride 50 ml @ 25 mls/hr Q2H IV 04/04/25 07:00 04/04/25 10:59 04/04/25 07:11 25 MLS/HR Sodium Chloride 100 ml @ 50 mls/hr Q2H IV 04/04/25 07:00 04/04/25 10:59 Laboratory Results Laboratory Tests 04/04/25 04:31 Chemistry Test 04/03/25 14:53 04/04/25 04:31 Magnesium Level 1.9 mg/dL (1.6-2.6) Calcium Level 8.4 mg/dL (8.7-10.4) L Urinalysis Test 02/19/25 17:27 03/04/25 05:00 Urine Color Colorless (Yellow) Urine Clarity Clear (Clear) Urine pH 6.5 (5.0-9.0) Urine Specific [place] 1.008 (1.001-1.035) Urine Protein 2+ (Negative) H Urine Ketones 1+ (Negative) H Urine Blood 1+ /uL (Negative) H Urine Nitrite Negative (Negative) Urine Bilirubin Negative (Negative) Urine Urobilinogen Normal mg/dL (Negative) Urine Leukocyte Esterase Negative /uL (Negative) Urine RBC 6 /hpf (0 - 4) Urine Microscopic WBC 2 /HPF (0-5) Urine Squamous Epithelial Cells Few /hpf (<5) Urine Bacteria None seen /hpf (None Seen) Urine Glucose 2+ mg/dL (Normal) H Urine Creatinine 25.51 mg/dL (30.0-125.0) L Urine Protein/Creatinine Ratio 14.00 Urine Sodium 80 mmol/L (40-220) Urine Total Protein 357.1 mg/dL (1-14) H Microbiology Microbiology Date/Time Source Procedure Growth Status 04/02/25 13:00 Stool Clostridium difficile Toxin Assay - Final Complete 03/26/25 17:24 Sputum Gram Stain - Final Resulted 03/26/25 17:24 Respiratory Culture - Preliminary Klebsiella pneumoniae - ESBL Pseudomonas aeruginosa Resulted 03/13/25 05:10 Blood Blood Culture - Final NO GROWTH AFTER 5 DAYS OF INCUBATION. Complete 03/06/25 14:37 Knee Left Gram Stain - Final Complete 03/06/25 14:37 Knee Left Anaerobic Culture - Final Complete 03/06/25 14:37 Aerobic Culture - Final Staphylococcus aureus Complete 03/04/25 13:29 Aspirate Gram Stain - Final Complete 03/04/25 13:29 Body Fluid Culture - Final Staphylococcus aureus Complete 02/19/25 17:27 Urine - [place] Urine Culture - Final Complete Labs and/or images reviewed: Labs reviewed by me, Image(s) reviewed by me Assessment/Plan Assessment/Plan Impression: Multiple acute/subacute strokes Left lower extremity cellulitis Rule out left septic knee Hypokalemia Acute kidney injury likely hemodynamically mediated due to vasomotor nephropathy Chronic kidney disease Peripheral vascular disease status post right [id number] amputation 6 months ago Poorly controlled type 2 diabetes Sepsis Hypertension Mixed hyperlipidemia Polysubstance use disorder Diabetic neuropathy -? Suicidal ideation -septic bursitis with Staphylococcus aureus -septic shock Angioedema of the tongue -hyponatremia -patient with ESBL and CRE in the sputum Plan: -events: No events overnight. Antibiotics per Infectious Disease for ESBL CRE. WBC count improved. Continues to be hypokalemic -change maintenance IV fluid to D5W with KCl 40 mEq use. Potassium and magnesium replacement -continue with pureed diet, if patient has persistent difficulty swallowing. We will order barium swallow evaluation -strict aspiration precautions -PUD prophylaxis -bronchodilators -continue PPI Repeat labs and chest x-ray in a.m. Critical care time spent with patient discussing and formulating plan of care: 40 minutes. This does not include time spent performing procedures. This medical document was created using an electronic medical record system with [employer] system. Although this document has been carefully reviewed, there may still be some phonetic and typographical errors. These areas are purely typographical due to imperfections of the software programs, and do not reflect any compromise in the patient's medical care. Plan discussed with: Patient, Other (RN) My Orders Orders - JUSTIN BONILLA NP Procedure Category Date Status Time D5w 5% (Dextrose 5%) PHA 04/03/25 In Process W/Potassium Chlorid 08:45 Labetalol Hcl PHA 04/03/25 In Process (Labetalol Hcl) 09:45 Basic Metabolic Panel LAB 04/05/25 Verified 05:00 Basic Metabolic Panel LAB 04/06/25 Verified 05:00 Complete Blood Count LAB 04/05/25 Verified 05:00 Complete Blood Count LAB 04/06/25 Verified 05:00 Date of Service: April 04, 2025 Billing Provider: JUSTIN BONILLA NP Common Visit Codes: [id number] CARE 30-74 MIN JUSTIN BONILLA NP April 04, 2025 07:54
[2025-04-04] MEDS: SODIUM CHL 0.9% 100 ML IV SCH (08:00)
[2025-04-04 13:14] LABS: Potassium 3.7 mmol/L (3.5-5.1)
[2025-04-04 13:15] LABS: Anion Gap 10 (5-15)
[2025-04-04 13:17] LABS: Calcium 8.3 mg/dL (8.7-10.4); Carbon Dioxide 20 mmol/L (20-31); Chloride 117 mmol/L (98-107); Sodium 147 mmol/L (136-145)
[2025-04-04 13:20] LABS: Glucose 211 mg/dL (74-106)
[2025-04-04 13:21] LABS: BUN/Creatinine Ratio 19.2 (10.0-20.0); Blood Urea Nitrogen 23 mg/dL (9-23)
[2025-04-04] MEDS: VANCOMYCIN 1GM/200ML PM 200 ML IV SCH (15:58)
--- NOTE | 2025-04-04 19:08 | DVHPN2 ---
Progress Note - Dictate Date Seen: April 04, 2025 Medical Necessity Reason Pt with a Central, PICC or Fol: Yes The following are medically ne: Acosta Catheter Reason for acosta catheter: Strict I&O Subjective Patient was seen and evaluated in follow up in the ICU. Patient does not have any current complaints. Patient is now on room air. HGB 8.4, HCT 24.9, NA 149, K 3.1, BUN 25, ROCKET ENGINE TESTER 1.30, CA 8.4. vital signs Vital Sign Date Time Temp Pulse Resp B/P (MAP) Pulse Ox O2 Delivery O2 Flow Rate FiO2 04/04/25 11:38 74 177/106 04/04/25 11:32 19 100 04/04/25 11:20 Room Air 0.0 04/04/25 11:20 21 04/04/25 08:00 97.4 97.4 Total Intake and Output 04/03/25 04/03/25 04/04/25 15:00 23:00 07:00 Intake Total 300 ml 1400 ml 1050 ml Output Total 1200 ml 500 ml Balance 300 ml 200 ml 550 ml medications Current Medications Medications Dose Ordered Sig/John Route Start Time Stop Time Status Last Admin Dose Admin Acetaminophen 650 mg Q6HP PRN PO 02/19/25 13:45 03/09/25 21:36 650 MG Diagnostic Test (Pha) 1 strip ACHS 02/19/25 17:00 04/04/25 06:11 1 STRIP Dextrose 50 ml UD PRN IV 02/19/25 15:45 03/14/25 21:04 50 ML Potassium Chloride 100 ml @ 50 mls/hr Q2H IV 02/19/25 23:15 02/20/25 05:14 Cancel Potassium Chloride 100 ml @ 50 mls/hr Q2H IV 02/20/25 07:15 02/20/25 11:14 UNV Gabapentin 100 mg TID PO 03/02/25 14:00 04/03/25 14:00 100 MG Calcium Acetate 1,334 mg TIDWMEALS PO 03/04/25 12:00 04/04/25 08:42 1,334 MG Ergocalciferol 50,000 unit Q7D PO 03/04/25 11:45 03/25/25 15:05 50,000 UNIT Zirconium Oxide 10 gm TID PO 03/07/25 14:00 Cancel Sodium Bicarbonate 50 ml/ Sodium Chloride 1,050 ml @ 100 mls/hr [id number] IV 03/07/25 11:45 Cancel Pantoprazole Sodium 40 mg BID IV 03/13/25 10:00 04/04/25 08:47 40 MG Albuterol 2.5 mg Q6HR NEB 03/13/25 12:00 04/04/25 11:27 2.5 MG Ipratropium [place] 0.5 mg Q6HR NEB 03/13/25 12:00 04/04/25 11:28 0.5 MG Saccharomyces Boulardii 250 mg DAILY PO 03/14/25 10:00 04/04/25 08:43 250 MG Duloxetine HCl 30 mg DAILY PO 03/22/25 10:00 04/04/25 08:43 30 MG Lamotrigine 25 mg DAILY PO 03/22/25 10:00 04/04/25 08:43 25 MG Atorvastatin Calcium 80 mg HS PO 03/24/25 22:00 04/01/25 22:08 80 MG Enoxaparin Sodium 40 mg DAILY SC 03/25/25 10:00 04/04/25 08:48 40 MG Aspirin 81 mg DAILY NG 03/25/25 10:00 04/04/25 08:43 81 MG Acetylcysteine 100 mg Q6HR NEB 03/26/25 18:00 04/04/25 11:28 100 MG Midazolam HCl 50 ml @ 1 mls/hr Q24H IV 03/27/25 09:15 03/29/25 05:48 1 MLS/HR Nicardipine/ Sodium Chloride 200 ml @ 50 mls/hr Q4H IV 03/28/25 17:45 04/04/25 06:10 50 MLS/HR Insulin Human Regular ACHS SC 03/30/25 22:00 04/04/25 06:11 3 UNITS Metoprolol Tartrate 25 mg BID PO 03/31/25 22:00 04/04/25 08:43 25 MG Guaifenesin 200 mg Q4HP PRN PO 04/01/25 16:00 04/01/25 22:16 200 MG Vancomycin HCl 0 ml @ 0 mls/hr UD IV 04/02/25 18:30 04/14/25 18:30 Potassium Chloride 40 meq/ Dextrose 1,020 ml @ 75 mls/hr [id number] IV 04/03/25 08:45 04/04/25 05:07 75 MLS/HR Labetalol HCl 10 mg Q2HPRN PRN IV 04/03/25 09:45 04/04/25 11:38 10 MG Ceftolozane/ Tazobactam 1.5 gm/ Dextrose 100 ml @ 100 mls/hr Q8HR IV 04/03/25 14:00 04/10/25 13:59 04/04/25 06:12 100 MLS/HR objective GENERAL: Awake. EYES: PERRL, EOMI. Anicteric. HENT: Moist mucous membranes. LUNGS: Decreased breath sounds. CARDIOVASCULAR: Regular rate and rhythm. ABDOMEN: Soft, non-tender and non-distended. EXTREMITIES: No edema. SKIN: Warm, dry. laboratory and microbiology Laboratory Tests 04/04/25 04:31 Test 04/04/25 04:31 Range/Units Serum Glucose 192 H 74-106 mg/dL Problem List Multiple acute/subacute strokes. Hypokalemia. Acute kidney injury. Hypertension, newly diagnosed. Insulin-dependent diabetes mellitus. Status post right BKA. Dyslipidemia. Polysubstance use disorder. Left lower extremity cellulitis. Peripheral vascular disease status post right [id number] amputation 6 months ago. Sepsis. Diabetic neuropathy. Assessment/Plan Continued all current supportive medical care. Aspirin, Lipitor, Metoprolol. DVT and GI prophylactics. IV Hydralazine for SBP >160. IV antibiotics as ordered. Additional plan as per the hospital course. Critical care time of 45 minutes provided to include time spent evaluation of patient at bedside, when appropriate patient/family education for diagnosis, treatment plan, review of pertinent medical information and discussion of care with specialty providers and PCP. Dietary Evaluation Review Comments: 1) Esau 1 pk BID 2) Refer [employer] Producer on DC 3) Continue current plan of care Expected Outcomes/Goals: Pt will meet >75% estimated needs Fu 3-5 days Plan discussed with: Patient YANIRA WINN MD April 04, 2025 11:59
--- NOTE | 2025-04-04 20:19 | DVHPNRES ---
Progress Note Date Seen: April 04, 2025 Resident Creating Document: PAULINA SWANSON RESIDENT Medical Necessity Reason Pt with a Central, PICC or Fol: Yes The following are medically ne: Acosta Catheter Reason for acosta catheter: Strict I&O Subjective Review of Systems Patient was seen and examined at bedside. She stated feeling well, denies any cough, fevers, chills. She only states having mild abdominal pain, and nausea. She is currently tolerating pureed diet. Patient is drowsy. Objective vital signs Vital Sign Date Time Temp Pulse Resp B/P (MAP) Pulse Ox O2 Delivery O2 Flow Rate FiO2 04/04/25 18:45 81 18 112/61 (78) 92 04/04/25 18:00 Nasal Cannula* 2 28 04/04/25 16:00 98.1 98.1 Total Intake and Output 04/03/25 04/03/25 04/04/25 15:00 23:00 07:00 Intake Total 300 ml 1400 ml 1050 ml Output Total 1200 ml 500 ml Balance 300 ml 200 ml 550 ml medications Current Medications Medications Dose Ordered Sig/John Route Start Time Stop Time Status Last Admin Dose Admin Acetaminophen 650 mg Q6HP PRN PO 02/19/25 13:45 03/09/25 21:36 650 MG Diagnostic Test (Pha) 1 strip ACHS 02/19/25 17:00 04/04/25 17:00 1 STRIP Dextrose 50 ml UD PRN IV 02/19/25 15:45 03/14/25 21:04 50 ML Potassium Chloride 100 ml @ 50 mls/hr Q2H IV 02/19/25 23:15 02/20/25 05:14 Cancel Potassium Chloride 100 ml @ 50 mls/hr Q2H IV 02/20/25 07:15 02/20/25 11:14 UNV Gabapentin 100 mg TID PO 03/02/25 14:00 04/04/25 14:16 100 MG Calcium Acetate 1,334 mg TIDWMEALS PO 03/04/25 12:00 04/04/25 12:32 1,334 MG Ergocalciferol 50,000 unit Q7D PO 03/04/25 11:45 03/25/25 15:05 50,000 UNIT Zirconium Oxide 10 gm TID PO 03/07/25 14:00 Cancel Sodium Bicarbonate 50 ml/ Sodium Chloride 1,050 ml @ 100 mls/hr [id number] IV 03/07/25 11:45 Cancel Pantoprazole Sodium 40 mg BID IV 03/13/25 10:00 04/04/25 08:47 40 MG Albuterol 2.5 mg Q6HR NEB 03/13/25 12:00 04/04/25 18:55 2.5 MG Ipratropium [place] 0.5 mg Q6HR NEB 03/13/25 12:00 04/04/25 18:55 0.5 MG Saccharomyces Boulardii 250 mg DAILY PO 03/14/25 10:00 04/04/25 08:43 250 MG Duloxetine HCl 30 mg DAILY PO 03/22/25 10:00 04/04/25 08:43 30 MG Lamotrigine 25 mg DAILY PO 03/22/25 10:00 04/04/25 08:43 25 MG Atorvastatin Calcium 80 mg HS PO 03/24/25 22:00 04/01/25 22:08 80 MG Enoxaparin Sodium 40 mg DAILY SC 03/25/25 10:00 04/04/25 08:48 40 MG Aspirin 81 mg DAILY NG 03/25/25 10:00 04/04/25 08:43 81 MG Acetylcysteine 100 mg Q6HR NEB 03/26/25 18:00 04/04/25 18:56 100 MG Midazolam HCl 50 ml @ 1 mls/hr Q24H IV 03/27/25 09:15 03/29/25 05:48 1 MLS/HR Nicardipine/ Sodium Chloride 200 ml @ 50 mls/hr Q4H IV 03/28/25 17:45 04/04/25 06:10 50 MLS/HR Insulin Human Regular ACHS SC 03/30/25 22:00 04/04/25 18:36 3 UNITS Metoprolol Tartrate 25 mg BID PO 03/31/25 22:00 04/04/25 08:43 25 MG Guaifenesin 200 mg Q4HP PRN PO 04/01/25 16:00 04/01/25 22:16 200 MG Vancomycin HCl 0 ml @ 0 mls/hr UD IV 04/02/25 18:30 04/14/25 18:30 Potassium Chloride 40 meq/ Dextrose 1,020 ml @ 75 mls/hr [id number] IV 04/03/25 08:45 04/04/25 18:45 75 MLS/HR Labetalol HCl 10 mg Q2HPRN PRN IV 04/03/25 09:45 04/04/25 14:18 10 MG Ceftolozane/ Tazobactam 1.5 gm/ Dextrose 100 ml @ 100 mls/hr Q8HR IV 04/03/25 14:00 04/10/25 13:59 04/04/25 14:15 100 MLS/HR Vancomycin HCl 200 ml @ 160 mls/hr Q24H IV 04/04/25 16:00 04/04/25 15:58 160 MLS/HR Examination General Appearance: Cooperative. Well developed. Well nourished. Head Exam: Normal inspection Neck Exam: Normal inspection. Non-tender. Normal alignment Pulmonary/Respiratory: Chest non-tender. decreased bilateral breath sounds, crackles, no wheezing. Cardiovascular/Chest: Tachycardic. No murmurs. No JVD. Abdominal Exam: Normal bowel sounds. Soft. normal abdomen, no visible veins, Nontender. No hepatospenomegaly. No masses Upper extremities: Left upper extremity swelling noted Ankle Exam: Negative ankle edema Lower extremities: Left foot ulcer noted on the dorsal aspect. Left knee swelling with surgical roxanne. Neuro/Mental Status: A&O x3. somewhat Coherent. laboratory and microbiology Laboratory Tests 04/04/25 12:47 04/04/25 04:31 Test 04/04/25 12:47 Range/Units Serum Glucose 211 H 74-106 mg/dL Microbiology Date/Time Source Procedure Growth Status 04/02/25 13:00 Stool Clostridium difficile Toxin Assay - Final Complete 03/26/25 17:24 Sputum Gram Stain - Final Complete 03/26/25 17:24 Respiratory Culture - Final Klebsiella pneumoniae - ESBL Pseudomonas aeruginosa Complete 03/13/25 05:10 Blood Blood Culture - Final NO GROWTH AFTER 5 DAYS OF INCUBATION. Complete 03/06/25 14:37 Knee Left Gram Stain - Final Complete 03/06/25 14:37 Knee Left Anaerobic Culture - Final Complete 03/06/25 14:37 Aerobic Culture - Final Staphylococcus aureus Complete 03/04/25 13:29 Aspirate Gram Stain - Final Complete 03/04/25 13:29 Body Fluid Culture - Final Staphylococcus aureus Complete 02/19/25 17:27 Urine - [place] Urine Culture - Final Complete Labs and/or images reviewed: Labs reviewed by me, Image(s) reviewed by me Problem List/Assessment/Plan Problem List/Assessment/Plan Pneumonia ESBL Klebsiella, Carbapenemic resistant Pseudomonas positive sputum culture , possible due to ventilator associated pneumonia Sepsis probably due to above Left patellar bursitis, I&D w bursectomy performed on 03/07/25 Left knee culture growing MSSA Left foot ulcer, dorsal aspect Multiple acute-subacute strokes Ruled out C diff colitis Hypokalemia TATIANNA on CKD Peripheral arterial disease s/p R BKA 6 months ago Type 2 diabetes, uncontrolled Diabetic neuropathy Angioedema of the tongue Plan: IV vancomycin for possible 2 weeks Zerbaxa 1.5g IV tid for 1 week, renal dosing (04/03/25-04/10/25) Ordered KUB, came back with nonobstructive bowel gas Hold off on PICC line for now, patient may be able to transitioned to and discharged on oral antibiotics for her knee infection, possibly on bactrim. 04/03: WBC is trending down, patient abdomen is soft, mildly tender on palpation, no diarrhea since last night. will dc vancomycin po and flagyl iv 04/03: WBC is within normal limits, patient is drowsy and nauseous, aspirations precaution established. Thank you so much for the opportunity to consult on your patient. ID team will follow the patient. In case of any questions or concerns please feel free to reach out. Plan discussed with Dr. Saul Garcia ddendum Dr Brian Hughes Patient is a 64 year old female with a past medical history of diabetes, left foot ulcer , hypertension , hyperlipidemia , anxiety , peripheral arterial disease , depression , presents with left sided weakness and mild dysarthria . Had a brain MRI revealing multiple small falsi of acute to subacute infarcts in the right coronary radiata and right basal ganglia. Underwent MAGALIS which showed no masses or vegetation . Bubble study was negative , valve restriction is normal . Patient was intubated on 03/13 and a rapid was called . Intubated due to airway protection and excavated on 03/26. but then shortly reintubated due to possible right lower lobe aspiration.Is now on 2 liters nasal canula and has left knee swelling ,erythema , cultures were growing MSSA , however on Clindamycin and irrigation and debridement of left patella on 03/07. She is noting having some diarrhea, with some left knee swelling persistent after debridement . Surgical roxanne are clean and left upper extremity swelling is noted . Crackles in the lungs and is tachycardic Assessment: 04/02:Patient is growing pseudomonas , ESBL klebsiella on sputum culture likely due to hospital acquired pneumonia. possible C diff colitis. As well as an MSSA left knee bursitis that has yet to be treated with appropriate antibiotics. Patient has peripheral arterial disease and right decay and uncontrolled diabetes 04/03: patient is doing better , diarrhea has significantly improved and tolerating antibiotics without any fevers or chills . Patient is a bit drowsy . Patient has some mild angioedema of the tongue . C diff testing is negative 04/04: Patient was seen by Dr Velasco and tolerating diet. Agree with Dr. Velasco findings . Not having ny worsening diarrhea Plan: - recommend KUB to further evaluate for colitis - Continue IV vancomycin for MSSA left knee cellulitis - Continue Zerbaxa for hospital acquired pneumonia for at least 7 days and once completed and oral antibiotic for patients septic arthritis is a possibility , can potentially change to oral Bactrim once zerbaxa coarse has been completed tentatively 04/10/25 - no need for additional workup at this time Assessment and plan reviewed and agree with what is written above my Dr. Velasco Authorized and Performed by: Katerine Hughes Total critical care time: Approximately 76 minutes Due to a high probability of clinically significant, life threatening deterioration, the patient required my highest level of preparedness to intervene emergently and I personally spent this critical care time directly and personally managing the patient. This critical care time included obtaining a history; examining the patient; pulse oximetry; ordering and review of studies; arranging urgent treatment with development of a management plan; evaluation of patient's response to treatment; frequent reassessment; and, discussions with other providers. This critical care time was performed to assess and manage the high probability of imminent, life-threatening deterioration that could result in multi-organ failure. It was exclusive of separately billable procedures and treating other patients and teaching time. Plan discussed with: Patient, Other (RN) Dietary Evaluation Review Comments: 1) Esau 1 pk BID 2) Refer Senior Mainframe Developer on DC 3) Continue current plan of care Expected Outcomes/Goals: Pt will meet >75% estimated needs Fu 3-5 days PAULINA SWANSON RESIDENT April 04, 2025 20:19 KATERINE HUGHES MD April 07, 2025 12:21
--- NOTE | 2025-04-04 21:25 | DVHPN2 ---
Progress Note - Dictate Date Seen: April 04, 2025 Medical Necessity Reason Pt with a Central, PICC or Fol: Yes The following are medically ne: Acosta Catheter Reason for acosta catheter: Strict I&O Subjective Patient seen and examined at bedside. Breathing comfortably on room air Overnight events reviewed. vital signs Vital Sign Date Time Temp Pulse Resp B/P (MAP) Pulse Ox O2 Delivery O2 Flow Rate FiO2 04/04/25 20:15 79 20 119/74 (89) 99 04/04/25 20:00 97.6 97.6 04/04/25 20:00 Nasal Cannula* 2 28 Total Intake and Output 04/03/25 04/03/25 04/04/25 15:00 23:00 07:00 Intake Total 300 ml 1400 ml 1050 ml Output Total 1200 ml 500 ml Balance 300 ml 200 ml 550 ml medications Current Medications Medications Dose Ordered Sig/John Route Start Time Stop Time Status Last Admin Dose Admin Acetaminophen 650 mg Q6HP PRN PO 02/19/25 13:45 03/09/25 21:36 650 MG Diagnostic Test (Pha) 1 strip ACHS 02/19/25 17:00 04/04/25 17:00 1 STRIP Dextrose 50 ml UD PRN IV 02/19/25 15:45 03/14/25 21:04 50 ML Potassium Chloride 100 ml @ 50 mls/hr Q2H IV 02/19/25 23:15 02/20/25 05:14 Cancel Potassium Chloride 100 ml @ 50 mls/hr Q2H IV 02/20/25 07:15 02/20/25 11:14 UNV Gabapentin 100 mg TID PO 03/02/25 14:00 04/04/25 14:16 100 MG Calcium Acetate 1,334 mg TIDWMEALS PO 03/04/25 12:00 04/04/25 12:32 1,334 MG Ergocalciferol 50,000 unit Q7D PO 03/04/25 11:45 03/25/25 15:05 50,000 UNIT Zirconium Oxide 10 gm TID PO 03/07/25 14:00 Cancel Sodium Bicarbonate 50 ml/ Sodium Chloride 1,050 ml @ 100 mls/hr [id number] IV 03/07/25 11:45 Cancel Pantoprazole Sodium 40 mg BID IV 03/13/25 10:00 04/04/25 08:47 40 MG Albuterol 2.5 mg Q6HR NEB 03/13/25 12:00 04/04/25 18:55 2.5 MG Ipratropium [place] 0.5 mg Q6HR NEB 03/13/25 12:00 04/04/25 18:55 0.5 MG Saccharomyces Boulardii 250 mg DAILY PO 03/14/25 10:00 04/04/25 08:43 250 MG Duloxetine HCl 30 mg DAILY PO 03/22/25 10:00 04/04/25 08:43 30 MG Lamotrigine 25 mg DAILY PO 03/22/25 10:00 04/04/25 08:43 25 MG Atorvastatin Calcium 80 mg HS PO 03/24/25 22:00 04/01/25 22:08 80 MG Enoxaparin Sodium 40 mg DAILY SC 03/25/25 10:00 04/04/25 08:48 40 MG Aspirin 81 mg DAILY NG 03/25/25 10:00 04/04/25 08:43 81 MG Acetylcysteine 100 mg Q6HR NEB 03/26/25 18:00 04/04/25 18:56 100 MG Midazolam HCl 50 ml @ 1 mls/hr Q24H IV 03/27/25 09:15 03/29/25 05:48 1 MLS/HR Nicardipine/ Sodium Chloride 200 ml @ 50 mls/hr Q4H IV 03/28/25 17:45 04/04/25 06:10 50 MLS/HR Insulin Human Regular ACHS SC 03/30/25 22:00 04/04/25 18:36 3 UNITS Metoprolol Tartrate 25 mg BID PO 03/31/25 22:00 04/04/25 08:43 25 MG Guaifenesin 200 mg Q4HP PRN PO 04/01/25 16:00 04/01/25 22:16 200 MG Vancomycin HCl 0 ml @ 0 mls/hr UD IV 04/02/25 18:30 04/14/25 18:30 Potassium Chloride 40 meq/ Dextrose 1,020 ml @ 75 mls/hr [id number] IV 04/03/25 08:45 04/04/25 18:45 75 MLS/HR Labetalol HCl 10 mg Q2HPRN PRN IV 04/03/25 09:45 04/04/25 14:18 10 MG Ceftolozane/ Tazobactam 1.5 gm/ Dextrose 100 ml @ 100 mls/hr Q8HR IV 04/03/25 14:00 04/10/25 13:59 04/04/25 14:15 100 MLS/HR Vancomycin HCl 200 ml @ 160 mls/hr Q24H IV 04/04/25 16:00 04/04/25 15:58 160 MLS/HR objective Gen.: Patient lying in bed in no apparent distress. On room air Head: Normocephalic, atraumatic. Eyes: EOMI/PERRLA. Ears: Normal hearing. Normal anatomy. Neck/trachea: Trachea midline, supple. Nose: Normal external anatomy. Mouth: Moist mucous membranes. Chest: Decreased air entry bilaterally. No wheezing or rhonchi. Cardiovascular: Positive S1, positive S2. Regular rate and rhythm. Abdomen: Positive bowel sounds in all 4 quadrants. Soft, non-tender, non- distended. : Deferred. Rectal: Deferred. Skin: Warm, dry. Intact. Extremities: 2+ radial pulses bilaterally. No lower extremity edema. Neuro: Awake, alert, oriented x3. No gross motor or sensory deficits. Cranial nerves II through XII intact. Gait not assessed. laboratory and microbiology Laboratory Tests 04/04/25 12:47 04/04/25 04:31 Test 04/04/25 12:47 Range/Units Serum Glucose 211 H 74-106 mg/dL Assessment/Plan Impression: Acute hypoxic respiratory failure Multiple acute/subacute strokes. Altered mental status Acute kidney injury. Hypertension, newly diagnosed. Insulin-dependent diabetes mellitus. Polysubstance use Peripheral vascular disease, s/p right BKA 6 months ago. Sepsis Events: On room air Supplemental oxygen PRN No new complaints Head of bed elevation Aspiration precautions On Labetalol PRN SBP greater than 150 mmHg Blood pressure control with metoprolol BID. Continue bronchodilators/Mucomyst Continue antibiotics. ID recommendations appreciated Antitussive PRN cough. Monitor hemoglobin - 8.4 g/dL Monitor WBC Monitor renal function Monitor electrolytes. Supplement as needed Potassium supplementation Protonix BID for GI prophylaxis Lovenox for DVT prophylaxis Labs and imaging reviewed. Rest of plan as noted below. Plan: S/p extubation on 03/29/25 Supplemental oxygen PRN Titrate to maintain sats above 92% HOB elevation Aspiration precautions Bronchodilators Continue antibiotics. F/u cultures. Accu-Cheks, ISS PRN. Monitor renal function Monitor electrolytes Supplement as needed Continue psych meds Tube feeds for nutritional support Pressors as necessary for hemodynamic support Titrate to keep mean arterial pressure greater than 65 mmHg. GI prophylaxis - Protonix. DVT prophylaxis - Lovenox. Prognosis: Poor given patient's multiple co-morbidities. Rest of plan per hospitalist and other consultants. Thank you, FRANCISCO Alanis, for allowing me to participate in this patient's care. Further recommendations will depend on the patient's clinical course. Please do not hesitate to contact me if you have any questions or concerns. This medical document was created using an electronic medical record system with [employer] dictation system. Although these documentations are being carefully reviewed, there may still be some phonetic and typographical changes. The errors are purely typographical, due to imperfection on the software program, and do not reflect any compromise in the patient's medical care. Dietary Evaluation Review Comments: 1) Esau 1 pk BID 2) Refer Supervisor [employer] Accounts on DC 3) Continue current plan of care Expected Outcomes/Goals: Pt will meet >75% estimated needs Fu 3-5 days Plan discussed with: Patient, Other (ASHLEY Jones) LARRY HERRERA MD April 04, 2025 21:25
--- NOTE | 2025-04-04 22:14 | DVHPN2 ---
Progress Note - Dictate Date Seen: April 04, 2025 Medical Necessity Reason Pt with a Central, PICC or Fol: Yes The following are medically ne: Acosta Catheter Reason for acosta catheter: Strict I&O Subjective Mr. Kaur is a 54 years old right-handed female with a history of hypertension, diabetes, dyslipidemia, anxiety, GERD, osteo myelitis status post right BKA, she came to the [facility] on 02/19/25 with a chief complaint of general weakness. He was transferred/ICU on 03/13/25 for ALOC, nasal bleeding and intubation I have seen and examined the patient, I have talked to her nurse, she is awake, oriented to person, place and she knows year, her left arm weakness is better On nicardipine drip for blood pressure control Psychiatry consultation, 02/26/25: 1:1 sitter. Transferred to inpatient psychiatric facility. Cymbalta 30 mg b.i.d. ABG, 03/13/2025: Unremarkable UDS, 02/19/2025: Cannabinoids Plasma alcohol, 02/19/2025: 3 Urinalysis, 02/19, : WBC: 2, urine leukocyte esterase WBC/HB/PLT/MCV, 02/20/2025: 21.9/10.9/398/83.1, 03/13/2025: 11.7/6.5/424/85.4 PT/INR/PTT, 03/13/2025: 10.6/1/38.6 K, 02/19/2025: 1.7, 02/20/2025: 2.1 BUN/CR, 02/20/2025: 33/2.03, 03/13/2025: 51.93 HGB A1c, 06/03/2024: 13.1 Liver function tests, 02/20/2025: Unremarkable TG/HDL/LDL/HDL, 04/11/2024: 180/238/164/43 MAGALIS, 02/21/2025: 1. Technically good study. Sinus rhythm. 2. Left atrial enlargement. 3. Number Valves appear to be structurally normal. 4. Ventricular systolic function is preserved at 60% with normal RV function. 5. Doppler reveals mild TR. No significant mitral or aortic insufficiency. No atrial septal or ventricular septal defects 6. No masses or vegetations discernible. 7. The atrial appendage looks clean, no masses. No atrial or ventricular septal defects as noted. No abnormal shunting. Bubble study was negative 8. The valves appear to be structurally normal. No vegetations or signs of emboli present. Carotid Doppler, 02/20/2025: No hemodynamically significant stenosis noted in the right carotid system. No hemodynamically significant stenosis noted in the left carotid system. Chest X-ray, 03/19/25: 1. Endotracheal tube terminates 4cm from caleb. Other lines and tubes are unchanged in position. 2. Bilateral airspace disease similar to prior study. CT head, : Small age-indeterminate infarct extending from the right jorge radiata into the right basal ganglia. Further evaluation with MRI brain with diffusion-weighted imaging is recommended. CT head, , No acute intracranial abnormality. Multiple subacute bilateral lacunar infarcts as seen on prior MRI. MRI head, 02/19/2025: 1. There are multiple small foci of acute to subacute infarct in the right jorge radiata and right basal ganglia. There are also multiple small acute to subacute infarcts in the left anteromedial frontal lobe and in the left jorge radiata and left basal ganglia. There is no evidence of acute hemorrhage MR head, 03/21/2025: 1. Multiple foci of restricted diffusion involving the left corpus callosum, bilateral basal ganglia and right jorge radiata. The largest area involves the left splenium of the corpus callosum. These likely represent acute to subacute infarcts. There is no evidence of acute hemorrhage. 2. Moderate amount of fluid in the bilateral mastoid air cells MRI left foot, 02/22/25: Moderate dorsal subcutaneous edema. No evidence of osteomyelitis. No drainable fluid collection noted. Moderate myositis. vital signs Vital Sign Date Time Temp Pulse Resp B/P (MAP) Pulse Ox O2 Delivery O2 Flow Rate FiO2 04/04/25 22:00 17 97 Room Air* 0 21 04/04/25 22:00 82 120/78 (92) 04/04/25 20:00 97.6 97.6 Total Intake and Output 04/03/25 04/03/25 04/04/25 15:00 23:00 07:00 Intake Total 300 ml 1400 ml 1050 ml Output Total 1200 ml 500 ml Balance 300 ml 200 ml 550 ml medications Current Medications Medications Dose Ordered Sig/John Route Start Time Stop Time Status Last Admin Dose Admin Acetaminophen 650 mg Q6HP PRN PO 02/19/25 13:45 03/09/25 21:36 650 MG Diagnostic Test (Pha) 1 strip ACHS 02/19/25 17:00 04/04/25 21:30 1 STRIP Dextrose 50 ml UD PRN IV 02/19/25 15:45 03/14/25 21:04 50 ML Potassium Chloride 100 ml @ 50 mls/hr Q2H IV 02/19/25 23:15 02/20/25 05:14 Cancel Potassium Chloride 100 ml @ 50 mls/hr Q2H IV 02/20/25 07:15 02/20/25 11:14 UNV Gabapentin 100 mg TID PO 03/02/25 14:00 04/04/25 21:27 100 MG Calcium Acetate 1,334 mg TIDWMEALS PO 03/04/25 12:00 04/04/25 12:32 1,334 MG Ergocalciferol 50,000 unit Q7D PO 03/04/25 11:45 03/25/25 15:05 50,000 UNIT Zirconium Oxide 10 gm TID PO 03/07/25 14:00 Cancel Sodium Bicarbonate 50 ml/ Sodium Chloride 1,050 ml @ 100 mls/hr [id number] IV 03/07/25 11:45 Cancel Pantoprazole Sodium 40 mg BID IV 03/13/25 10:00 04/04/25 21:27 40 MG Albuterol 2.5 mg Q6HR NEB 03/13/25 12:00 04/04/25 18:55 2.5 MG Ipratropium [place] 0.5 mg Q6HR NEB 03/13/25 12:00 04/04/25 18:55 0.5 MG Saccharomyces Boulardii 250 mg DAILY PO 03/14/25 10:00 04/04/25 08:43 250 MG Duloxetine HCl 30 mg DAILY PO 03/22/25 10:00 04/04/25 08:43 30 MG Lamotrigine 25 mg DAILY PO 03/22/25 10:00 04/04/25 08:43 25 MG Atorvastatin Calcium 80 mg HS PO 03/24/25 22:00 04/04/25 21:26 80 MG Enoxaparin Sodium 40 mg DAILY SC 03/25/25 10:00 04/04/25 08:48 40 MG Aspirin 81 mg DAILY NG 03/25/25 10:00 04/04/25 08:43 81 MG Acetylcysteine 100 mg Q6HR NEB 03/26/25 18:00 04/04/25 18:56 100 MG Midazolam HCl 50 ml @ 1 mls/hr Q24H IV 03/27/25 09:15 03/29/25 05:48 1 MLS/HR Nicardipine/ Sodium Chloride 200 ml @ 50 mls/hr Q4H IV 03/28/25 17:45 04/04/25 21:46 25 MLS/HR Insulin Human Regular ACHS SC 03/30/25 22:00 04/04/25 21:29 3 UNITS Metoprolol Tartrate 25 mg BID PO 03/31/25 22:00 04/04/25 21:27 25 MG Guaifenesin 200 mg Q4HP PRN PO 04/01/25 16:00 04/01/25 22:16 200 MG Vancomycin HCl 0 ml @ 0 mls/hr UD IV 04/02/25 18:30 04/14/25 18:30 Potassium Chloride 40 meq/ Dextrose 1,020 ml @ 75 mls/hr [id number] IV 04/03/25 08:45 04/04/25 18:45 75 MLS/HR Labetalol HCl 10 mg Q2HPRN PRN IV 04/03/25 09:45 04/04/25 14:18 10 MG Ceftolozane/ Tazobactam 1.5 gm/ Dextrose 100 ml @ 100 mls/hr Q8HR IV 04/03/25 14:00 04/10/25 13:59 04/04/25 21:28 100 MLS/HR Vancomycin HCl 200 ml @ 160 mls/hr Q24H IV 04/04/25 16:00 04/04/25 15:58 160 MLS/HR objective The patient is well-nourished and well-developed with no distress. MUSCULOSKELETAL EXAM: Status post right BKA MENTAL STATUS: Subjective CRANIAL NERVES: Labeled to homonymous hemianopsia, Pupils are equal round and reactive to light briskly, normal external eye movement, normal sensation and motor examination in the lateral trigeminal nerve distribution, no facial weaknes SENSATION: responses to pain stimuli. MOTOR: Normal tone in the upper and lower extremity. Normal muscle bulk. No fasciculations. She moves extremities, muscle power in the right extremities: 4/5, muscle power in the left extremities: Upper: 4/5, lower: 3/5 REFLEXES: Deep tendon reflexes are symmetrical. No pathological reflexes. CEREBELLAR/COORDINATION: Deferred GAIT/STATION: deferred. laboratory and microbiology Laboratory Tests 04/04/25 12:47 04/04/25 04:31 Test 04/04/25 12:47 Range/Units Serum Glucose 211 H 74-106 mg/dL Problem List Acute respiratory failure Excessive nasal bleeding Come company resolved Metabolic encephalopathy Hypoxic encephalopathy Toxic encephalopathy Left hemiparesis secondary stroke ? Left homonymous hemianopsia secondary to stroke General weakness Multiple acute/subacute strokes (MRI head: 02/19/2025, 03/21/2025) Status post right BKA Depression Assessment/Plan Monitoring Supportive treatment ICU Stabilize vitals Respiratory support Oxygen Antibiotics Aspirin 81 mg daily Lipitor 80mg Qd Cymbalta 30 mg b.i.d. DVT prophylaxis/Lovenox Quit tobacco smoking completely More recommendation per clinical course This medical document was created using an electronic medical record system with [employer] dictation system. Although this document has been carefully reviewed, there may still be some phonetic and typographical errors. These areas are purely typographical due to imperfections of the software programs, and do not reflect any compromise in the patient's medical care. Prognosis poor Dietary Evaluation Review Comments: 1) Esau 1 pk BID 2) Refer Business Continuity Specialist on DC 3) Continue current plan of care Expected Outcomes/Goals: Pt will meet >75% estimated needs Fu 3-5 days Plan discussed with: Other NEELA RUEDA MD April 04, 2025 22:14
[2025-04-05] VITALS (88 sets, daily range): BP systolic 98–148; BP diastolic 61–104; PULSE 60–85; RESP 7–21; TEMP 97.4–98; O2SAT 90–100
[2025-04-05 05:25] LABS: Basophils # (auto) 0.1 10 ^3/uL (0-0.2); Neutrophils # (auto) 6.4 10 ^3/uL (1.6-8.6); Red Cell Distribution Width 16.6 % (11.8-14.3); White Blood Cell 9.1 10^3/uL (4.4-10.8)
[2025-04-05 05:28] LABS: Basophils % (auto) 1.2 % (0.0-2.0); Eosinophils # (auto) 0.5 10 ^3/uL (0-0.8); Eosinophils % (auto) 5.9 % (0.0-7.0); Hematocrit 27.2 % (36.0-46.0); Lymphocytes # (auto) 1.7 10 ^3/uL (0.4-5.4); Lymphocytes % (auto) 18.4 % (10.0-50.0); Mean Corpuscular Hemoglobin 28.1 pg (28.0-32.0); Mean Corpuscular Hgb Conc. 33.2 g/dL (32.0-36.0); Mean Corpuscular Volume 84.8 fL (80.0-100.0); Monocytes # (auto) 0.4 10 ^3/uL (0-1.3); Monocytes % (auto) 4.3 % (0.0-12.0); Neutrophils % (auto) 70.2 % (37.0-80.0); Platelet Count (auto) 471 10^3/uL (140-450); Red Blood Cells 3.21 10^6/uL (4.0-5.20)
[2025-04-05 05:40] LABS: Anion Gap 10 (5-15); Potassium 3.8 mmol/L (3.5-5.1); Sodium 145 mmol/L (136-145)
[2025-04-05 05:45] LABS: Calcium 8.4 mg/dL (8.7-10.4); Carbon Dioxide 19 mmol/L (20-31); Chloride 116 mmol/L (98-107)
[2025-04-05 05:46] LABS: Blood Urea Nitrogen 22 mg/dL (9-23)
[2025-04-05 05:50] LABS: Glucose 131 mg/dL (74-106)
[2025-04-05] MEDS: NIFEdipine ER 30 MG TAB PO ONE (11:46)
[2025-04-05] MEDS: LOSARTAN POTASSIUM 25 MG TAB PO ONE (11:47)
--- NOTE | 2025-04-05 14:24 | DVHPN2 ---
Assessment/Plan Assessment/Plan ICU note covering on RA, still on nicardipine, adding nifedipine and losartan. titrate of cardene. physical exam Following commands alert PERRLA MMM coarse rhonchi breath sounds s1 s2 RRR abdomen soft R BKA labs ekg imaging reviewed assessment and plan Acute hypoxic/metabolic/toxic encephalopathy Acute hypoxic respiratory failure Severe sepsis with leukocytosis and fever due to soft tissue infection/cellulitis and suspected left knee infection Multiple acute/subacute strokes Electrolytes imbalance with hypokalemia and hypomagnesemia TATIANNA; most likely vasomotor nephropathy in the setting of sepsis; avoid nephrotoxic agents; nephrology is following; morning labs pending; continue monitoring Uncontrolled diabetes mellitus type 2 with hyperglycemia PAD status post right BKA Multiple left foot diabetic ulcers Polysubstance (marijuana and tobacco) use disorder Obesity carbapenem resistant pseudomonas PNA maintain sbp <150, c/w cardene start nifedipine and losartan asp precaution ID recs appreciated c/w abx for CR pseudomonas dc tlc diet tf dvt ppx lovenox gi ppx protonix full code prognosis poor condition critical 35 minutes critical care time spent Plan discussed with: Patient My Orders Orders - JENNIFER HAWTHORNE MD Procedure Category Date Status Time Nifedipine Er PHA 04/06/25 In Process (Procardia Xl 10:00 Losartan Tablet PHA 04/06/25 In Process (Cozaar Tablet) 10:00 Date of Service: April 05, 2025 Billing Provider: JENNIFER HAWTHORNE MD Common Visit Codes: [id number] CARE 30-74 MIN JENNIFER HAWTHORNE MD April 05, 2025 14:24
[2025-04-05] MEDS ORDERED: ONDANSETRON ODT 4 MG TAB PO PRN (15:30)
--- NOTE | 2025-04-05 20:38 | DVHPN2 ---
Progress Note - Dictate Date Seen: April 05, 2025 Medical Necessity Reason Pt with a Central, PICC or Fol: Yes The following are medically ne: Acosta Catheter Reason for acosta catheter: Strict I&O Subjective Mr. Kaur is a 54 years old right-handed female with a history of hypertension, diabetes, dyslipidemia, anxiety, GERD, osteo myelitis status post right BKA, she came to the [facility] on 02/19/25 with a chief complaint of general weakness. He was transferred/ICU on 03/13/25 for ALOC, nasal bleeding and intubation I have seen and examined the patient, I have talked to her nurse, she is awake, he talks, but she does not answer questions, she was confused, she is trying to climb the bed rails On nicardipine drip for blood pressure control Psychiatry consultation, 02/26/25: 1:1 sitter. Transferred to inpatient psychiatric facility. Cymbalta 30 mg b.i.d. ABG, 03/13/2025: Unremarkable UDS, 02/19/2025: Cannabinoids Plasma alcohol, 02/19/2025: 3 Urinalysis, 02/19, : WBC: 2, urine leukocyte esterase WBC/HB/PLT/MCV, 02/20/2025: 21.9/10.9/398/83.1, 03/13/2025: 11.7/6.5/424/85.4 PT/INR/PTT, 03/13/2025: 10.6/1/38.6 K, 02/19/2025: 1.7, 02/20/2025: 2.1 BUN/CR, 02/20/2025: 33/2.03, 03/13/2025: 51.93 HGB A1c, 06/03/2024: 13.1 Liver function tests, 02/20/2025: Unremarkable TG/HDL/LDL/HDL, 04/11/2024: 180/238/164/43 MAGALIS, 02/21/2025: 1. Technically good study. Sinus rhythm. 2. Left atrial enlargement. 3. Number Valves appear to be structurally normal. 4. Ventricular systolic function is preserved at 60% with normal RV function. 5. Doppler reveals mild TR. No significant mitral or aortic insufficiency. No atrial septal or ventricular septal defects 6. No masses or vegetations discernible. 7. The atrial appendage looks clean, no masses. No atrial or ventricular septal defects as noted. No abnormal shunting. Bubble study was negative 8. The valves appear to be structurally normal. No vegetations or signs of emboli present. Carotid Doppler, 02/20/2025: No hemodynamically significant stenosis noted in the right carotid system. No hemodynamically significant stenosis noted in the left carotid system. Chest X-ray, 03/19/25: 1. Endotracheal tube terminates 4cm from caleb. Other lines and tubes are unchanged in position. 2. Bilateral airspace disease similar to prior study. CT head, : Small age-indeterminate infarct extending from the right jorge radiata into the right basal ganglia. Further evaluation with MRI brain with diffusion-weighted imaging is recommended. CT head, , No acute intracranial abnormality. Multiple subacute bilateral lacunar infarcts as seen on prior MRI. MRI head, 02/19/2025: 1. There are multiple small foci of acute to subacute infarct in the right jorge radiata and right basal ganglia. There are also multiple small acute to subacute infarcts in the left anteromedial frontal lobe and in the left jorge radiata and left basal ganglia. There is no evidence of acute hemorrhage MR head, 03/21/2025: 1. Multiple foci of restricted diffusion involving the left corpus callosum, bilateral basal ganglia and right jorge radiata. The largest area involves the left splenium of the corpus callosum. These likely represent acute to subacute infarcts. There is no evidence of acute hemorrhage. 2. Moderate amount of fluid in the bilateral mastoid air cells MRI left foot, 02/22/25: Moderate dorsal subcutaneous edema. No evidence of osteomyelitis. No drainable fluid collection noted. Moderate myositis. vital signs Vital Sign Date Time Temp Pulse Resp B/P (MAP) Pulse Ox O2 Delivery O2 Flow Rate FiO2 04/05/25 20:00 12 97 Room Air* 0 21 04/05/25 18:30 77 147/101 (116) 04/05/25 16:00 97.6 97.6 Total Intake and Output 04/04/25 04/04/25 04/05/25 15:00 23:00 07:00 Intake Total 940 ml 1050 ml 930 ml Output Total 1100 ml 350 ml Balance 940 ml -50 ml 580 ml medications Current Medications Medications Dose Ordered Sig/John Route Start Time Stop Time Status Last Admin Dose Admin Acetaminophen 650 mg Q6HP PRN PO 02/19/25 13:45 03/09/25 21:36 650 MG Diagnostic Test (Pha) 1 strip ACHS 02/19/25 17:00 04/05/25 17:00 1 STRIP Dextrose 50 ml UD PRN IV 02/19/25 15:45 03/14/25 21:04 50 ML Potassium Chloride 100 ml @ 50 mls/hr Q2H IV 02/19/25 23:15 02/20/25 05:14 Cancel Potassium Chloride 100 ml @ 50 mls/hr Q2H IV 02/20/25 07:15 02/20/25 11:14 UNV Gabapentin 100 mg TID PO 03/02/25 14:00 04/05/25 14:21 100 MG Calcium Acetate 1,334 mg TIDWMEALS PO 03/04/25 12:00 04/05/25 18:14 1,334 MG Ergocalciferol 50,000 unit Q7D PO 03/04/25 11:45 03/25/25 15:05 50,000 UNIT Zirconium Oxide 10 gm TID PO 03/07/25 14:00 Cancel Sodium Bicarbonate 50 ml/ Sodium Chloride 1,050 ml @ 100 mls/hr [id number] IV 03/07/25 11:45 Cancel Pantoprazole Sodium 40 mg BID IV 03/13/25 10:00 04/05/25 09:33 40 MG Albuterol 2.5 mg Q6HR NEB 03/13/25 12:00 04/05/25 18:11 2.5 MG Ipratropium [place] 0.5 mg Q6HR NEB 03/13/25 12:00 04/05/25 18:11 0.5 MG Saccharomyces Boulardii 250 mg DAILY PO 03/14/25 10:00 04/05/25 09:33 250 MG Duloxetine HCl 30 mg DAILY PO 03/22/25 10:00 04/05/25 09:34 30 MG Lamotrigine 25 mg DAILY PO 03/22/25 10:00 04/05/25 09:33 25 MG Atorvastatin Calcium 80 mg HS PO 03/24/25 22:00 04/04/25 21:26 80 MG Enoxaparin Sodium 40 mg DAILY SC 03/25/25 10:00 04/05/25 09:33 40 MG Aspirin 81 mg DAILY NG 03/25/25 10:00 04/05/25 09:34 81 MG Acetylcysteine 100 mg Q6HR NEB 03/26/25 18:00 04/05/25 18:12 100 MG Midazolam HCl 50 ml @ 1 mls/hr Q24H IV 03/27/25 09:15 03/29/25 05:48 1 MLS/HR Insulin Human Regular ACHS SC 03/30/25 22:00 04/05/25 18:18 4 UNITS Guaifenesin 200 mg Q4HP PRN PO 04/01/25 16:00 04/01/25 22:16 200 MG Vancomycin HCl 0 ml @ 0 mls/hr UD IV 04/02/25 18:30 04/14/25 18:30 Potassium Chloride 40 meq/ Dextrose 1,020 ml @ 75 mls/hr [id number] IV 04/03/25 08:45 04/05/25 14:16 75 MLS/HR Ceftolozane/ Tazobactam 1.5 gm/ Dextrose 100 ml @ 100 mls/hr Q8HR IV 04/03/25 14:00 04/10/25 13:59 04/05/25 14:15 100 MLS/HR Vancomycin HCl 200 ml @ 160 mls/hr Q24H IV 04/04/25 16:00 04/05/25 16:13 160 MLS/HR Nifedipine 90 mg DAILY PO 04/06/25 10:00 Losartan Potassium 25 mg DAILY PO 04/06/25 10:00 Ondansetron HCl 4 mg Q8HP PRN PO 04/05/25 15:30 objective The patient is well-nourished and well-developed with no distress. MUSCULOSKELETAL EXAM: Status post right BKA MENTAL STATUS: Subjective CRANIAL NERVES: Labeled to homonymous hemianopsia, Pupils are equal round and reactive to light briskly, normal external eye movement, normal sensation and motor examination in the lateral trigeminal nerve distribution, no facial weaknes SENSATION: responses to pain stimuli. MOTOR: Normal tone in the upper and lower extremity. Normal muscle bulk. No fasciculations. She moves extremities, muscle power in the right extremities: 4/5, muscle power in the left extremities: Upper: 4/5, lower: 3-4/5 REFLEXES: Deep tendon reflexes are symmetrical. No pathological reflexes. CEREBELLAR/COORDINATION: Deferred GAIT/STATION: deferred. laboratory and microbiology Laboratory Tests 04/05/25 05:04 Test 04/05/25 05:04 Range/Units Serum Glucose 131 H 74-106 mg/dL Problem List Acute respiratory failure Excessive nasal bleeding Come company resolved Metabolic encephalopathy Hypoxic encephalopathy Toxic encephalopathy Left hemiparesis secondary stroke ? Left homonymous hemianopsia secondary to stroke General weakness Multiple acute/subacute strokes (MRI head: 02/19/2025, 03/21/2025) Status post right BKA Depression Assessment/Plan Monitoring Supportive treatment ICU Stabilize vitals Respiratory support Oxygen Antibiotics Aspirin 81 mg daily Lipitor 80mg Qd Cymbalta 30 mg b.i.d. DVT prophylaxis/Lovenox Quit tobacco smoking completely More recommendation per clinical course This medical document was created using an electronic medical record system with [employer] dictation system. Although this document has been carefully reviewed, there may still be some phonetic and typographical errors. These areas are purely typographical due to imperfections of the software programs, and do not reflect any compromise in the patient's medical care. Prognosis poor Dietary Evaluation Review Comments: 1) Esau 1 pk BID 2) Refer Petroleum Geologist on DC 3) Continue current plan of care Expected Outcomes/Goals: Pt will meet >75% estimated needs Fu 3-5 days Plan discussed with: Other NEELA RUEDA MD April 05, 2025 20:38
--- NOTE | 2025-04-05 22:47 | DVHPN2 ---
Progress Note - Dictate Date Seen: April 05, 2025 Medical Necessity Reason Pt with a Central, PICC or Fol: Yes The following are medically ne: Acosta Catheter Reason for acosta catheter: Strict I&O Subjective Patient seen and examined at bedside. Breathing comfortably on room air Overnight events reviewed. vital signs Vital Sign Date Time Temp Pulse Resp B/P (MAP) Pulse Ox O2 Delivery O2 Flow Rate FiO2 04/05/25 20:00 12 97 Room Air* 0 21 04/05/25 20:00 97.9 73 124/75 (91) 97.9 Total Intake and Output 04/04/25 04/04/25 04/05/25 15:00 23:00 07:00 Intake Total 940 ml 1050 ml 930 ml Output Total 1100 ml 350 ml Balance 940 ml -50 ml 580 ml medications Current Medications Medications Dose Ordered Sig/John Route Start Time Stop Time Status Last Admin Dose Admin Acetaminophen 650 mg Q6HP PRN PO 02/19/25 13:45 03/09/25 21:36 650 MG Diagnostic Test (Pha) 1 strip ACHS 02/19/25 17:00 04/05/25 22:25 1 STRIP Dextrose 50 ml UD PRN IV 02/19/25 15:45 03/14/25 21:04 50 ML Potassium Chloride 100 ml @ 50 mls/hr Q2H IV 02/19/25 23:15 02/20/25 05:14 Cancel Potassium Chloride 100 ml @ 50 mls/hr Q2H IV 02/20/25 07:15 02/20/25 11:14 UNV Gabapentin 100 mg TID PO 03/02/25 14:00 04/05/25 21:48 100 MG Calcium Acetate 1,334 mg TIDWMEALS PO 03/04/25 12:00 04/05/25 18:14 1,334 MG Ergocalciferol 50,000 unit Q7D PO 03/04/25 11:45 03/25/25 15:05 50,000 UNIT Zirconium Oxide 10 gm TID PO 03/07/25 14:00 Cancel Sodium Bicarbonate 50 ml/ Sodium Chloride 1,050 ml @ 100 mls/hr [id number] IV 03/07/25 11:45 Cancel Pantoprazole Sodium 40 mg BID IV 03/13/25 10:00 04/05/25 21:47 40 MG Albuterol 2.5 mg Q6HR NEB 03/13/25 12:00 04/05/25 18:11 2.5 MG Ipratropium [place] 0.5 mg Q6HR NEB 03/13/25 12:00 04/05/25 18:11 0.5 MG Saccharomyces Boulardii 250 mg DAILY PO 03/14/25 10:00 04/05/25 09:33 250 MG Duloxetine HCl 30 mg DAILY PO 03/22/25 10:00 04/05/25 09:34 30 MG Lamotrigine 25 mg DAILY PO 03/22/25 10:00 04/05/25 09:33 25 MG Atorvastatin Calcium 80 mg HS PO 03/24/25 22:00 04/05/25 21:48 80 MG Enoxaparin Sodium 40 mg DAILY SC 03/25/25 10:00 04/05/25 09:33 40 MG Aspirin 81 mg DAILY NG 03/25/25 10:00 04/05/25 09:34 81 MG Acetylcysteine 100 mg Q6HR NEB 03/26/25 18:00 04/05/25 18:12 100 MG Midazolam HCl 50 ml @ 1 mls/hr Q24H IV 03/27/25 09:15 03/29/25 05:48 1 MLS/HR Insulin Human Regular ACHS SC 03/30/25 22:00 04/05/25 21:51 3 UNITS Guaifenesin 200 mg Q4HP PRN PO 04/01/25 16:00 04/01/25 22:16 200 MG Vancomycin HCl 0 ml @ 0 mls/hr UD IV 04/02/25 18:30 04/14/25 18:30 Potassium Chloride 40 meq/ Dextrose 1,020 ml @ 75 mls/hr [id number] IV 04/03/25 08:45 04/05/25 14:16 75 MLS/HR Ceftolozane/ Tazobactam 1.5 gm/ Dextrose 100 ml @ 100 mls/hr Q8HR IV 04/03/25 14:00 04/10/25 13:59 04/05/25 21:48 100 MLS/HR Vancomycin HCl 200 ml @ 160 mls/hr Q24H IV 04/04/25 16:00 04/05/25 16:13 160 MLS/HR Nifedipine 90 mg DAILY PO 04/06/25 10:00 Losartan Potassium 25 mg DAILY PO 04/06/25 10:00 Ondansetron HCl 4 mg Q8HP PRN PO 04/05/25 15:30 objective Gen.: Patient lying in bed in no apparent distress. On room air Head: Normocephalic, atraumatic. Eyes: EOMI/PERRLA. Ears: Normal hearing. Normal anatomy. Neck/trachea: Trachea midline, supple. Nose: Normal external anatomy. Mouth: Moist mucous membranes. Chest: Decreased air entry bilaterally. No wheezing or rhonchi. Cardiovascular: Positive S1, positive S2. Regular rate and rhythm. Abdomen: Positive bowel sounds in all 4 quadrants. Soft, non-tender, non- distended. : Deferred. Rectal: Deferred. Skin: Warm, dry. Intact. Extremities: 2+ radial pulses bilaterally. No lower extremity edema. Neuro: Awake, alert, oriented x3. No gross motor or sensory deficits. Cranial nerves II through XII intact. Gait not assessed. laboratory and microbiology Laboratory Tests 04/05/25 05:04 Test 04/05/25 05:04 Range/Units Serum Glucose 131 H 74-106 mg/dL Assessment/Plan Impression: Acute hypoxic respiratory failure Multiple acute/subacute strokes. Altered mental status Acute kidney injury. Hypertension, newly diagnosed. Insulin-dependent diabetes mellitus. Polysubstance use Peripheral vascular disease, s/p right BKA 6 months ago. Sepsis Events: On room air Supplemental oxygen PRN No new complaints Head of bed elevation Aspiration precautions Taper nicardipine drip Labetalol PRN SBP greater than 150 mmHg Blood pressure control with metoprolol BID. Continue bronchodilators/Mucomyst Continue antibiotics. ID recommendations appreciated Antitussive PRN cough. Monitor hemoglobin - trended up to 9.0 g/dL Monitor renal function Monitor electrolytes. Supplement as needed Potassium supplementation Protonix BID for GI prophylaxis Lovenox for DVT prophylaxis Labs and imaging reviewed. Rest of plan as noted below. Plan: S/p extubation on 03/29/25 Supplemental oxygen PRN Titrate to maintain sats above 92% HOB elevation Aspiration precautions Bronchodilators Continue antibiotics. F/u cultures. Accu-Cheks, ISS PRN. Monitor renal function Monitor electrolytes Supplement as needed Continue psych meds Tube feeds for nutritional support Pressors as necessary for hemodynamic support Titrate to keep mean arterial pressure greater than 65 mmHg. GI prophylaxis - Protonix. DVT prophylaxis - Lovenox. Prognosis: Poor given patient's multiple co-morbidities. Rest of plan per hospitalist and other consultants. Thank you, FRANCISCO Alanis, for allowing me to participate in this patient's care. Further recommendations will depend on the patient's clinical course. Please do not hesitate to contact me if you have any questions or concerns. This medical document was created using an electronic medical record system with Context app dictation system. Although these documentations are being carefully reviewed, there may still be some phonetic and typographical changes. The errors are purely typographical, due to imperfection on the software program, and do not reflect any compromise in the patient's medical care. Dietary Evaluation Review Comments: 1) Esau 1 pk BID 2) Refer Historic Sites Supervisor on DC 3) Continue current plan of care Expected Outcomes/Goals: Pt will meet >75% estimated needs Fu 3-5 days Plan discussed with: Patient, Other (ASHLEY Stewart) LARRY HERRERA MD April 05, 2025 22:47
--- NOTE | 2025-04-05 23:51 | DVHPN2 ---
Progress Note - Dictate Date Seen: April 05, 2025 Medical Necessity Reason Pt with a Central, PICC or Fol: Yes The following are medically ne: Acosta Catheter Reason for acosta catheter: Strict I&O Subjective Patient was seen and evaluated in follow up in the ICU. Patient reports feeling fatigued. HGB 9, HCT 27.2, CL 116, CO2 19, CA 8.4. vital signs Vital Sign Date Time Temp Pulse Resp B/P (MAP) Pulse Ox O2 Delivery O2 Flow Rate FiO2 04/05/25 12:45 82 16 104/82 (89) 97 04/05/25 12:00 97.6 97.6 04/05/25 12:00 Room Air* 0 21 Total Intake and Output 04/04/25 04/04/25 04/05/25 15:00 23:00 07:00 Intake Total 940 ml 1050 ml 930 ml Output Total 1100 ml 350 ml Balance 940 ml -50 ml 580 ml medications Current Medications Medications Dose Ordered Sig/John Route Start Time Stop Time Status Last Admin Dose Admin Acetaminophen 650 mg Q6HP PRN PO 02/19/25 13:45 03/09/25 21:36 650 MG Diagnostic Test (Pha) 1 strip ACHS 02/19/25 17:00 04/05/25 11:47 1 STRIP Dextrose 50 ml UD PRN IV 02/19/25 15:45 03/14/25 21:04 50 ML Potassium Chloride 100 ml @ 50 mls/hr Q2H IV 02/19/25 23:15 02/20/25 05:14 Cancel Potassium Chloride 100 ml @ 50 mls/hr Q2H IV 02/20/25 07:15 02/20/25 11:14 UNV Gabapentin 100 mg TID PO 03/02/25 14:00 04/05/25 06:03 100 MG Calcium Acetate 1,334 mg TIDWMEALS PO 03/04/25 12:00 04/05/25 09:34 1,334 MG Ergocalciferol 50,000 unit Q7D PO 03/04/25 11:45 03/25/25 15:05 50,000 UNIT Zirconium Oxide 10 gm TID PO 03/07/25 14:00 Cancel Sodium Bicarbonate 50 ml/ Sodium Chloride 1,050 ml @ 100 mls/hr [id number] IV 03/07/25 11:45 Cancel Pantoprazole Sodium 40 mg BID IV 03/13/25 10:00 04/05/25 09:33 40 MG Albuterol 2.5 mg Q6HR NEB 03/13/25 12:00 04/05/25 07:34 2.5 MG Ipratropium [place] 0.5 mg Q6HR NEB 03/13/25 12:00 04/05/25 07:34 0.5 MG Saccharomyces Boulardii 250 mg DAILY PO 03/14/25 10:00 04/05/25 09:33 250 MG Duloxetine HCl 30 mg DAILY PO 03/22/25 10:00 04/05/25 09:34 30 MG Lamotrigine 25 mg DAILY PO 03/22/25 10:00 04/05/25 09:33 25 MG Atorvastatin Calcium 80 mg HS PO 03/24/25 22:00 04/04/25 21:26 80 MG Enoxaparin Sodium 40 mg DAILY SC 03/25/25 10:00 04/05/25 09:33 40 MG Aspirin 81 mg DAILY NG 03/25/25 10:00 04/05/25 09:34 81 MG Acetylcysteine 100 mg Q6HR NEB 03/26/25 18:00 04/05/25 07:34 100 MG Midazolam HCl 50 ml @ 1 mls/hr Q24H IV 03/27/25 09:15 03/29/25 05:48 1 MLS/HR Insulin Human Regular ACHS SC 03/30/25 22:00 04/05/25 11:57 3 UNITS Guaifenesin 200 mg Q4HP PRN PO 04/01/25 16:00 04/01/25 22:16 200 MG Vancomycin HCl 0 ml @ 0 mls/hr UD IV 04/02/25 18:30 04/14/25 18:30 Potassium Chloride 40 meq/ Dextrose 1,020 ml @ 75 mls/hr [id number] IV 04/03/25 08:45 04/04/25 18:45 75 MLS/HR Ceftolozane/ Tazobactam 1.5 gm/ Dextrose 100 ml @ 100 mls/hr Q8HR IV 04/03/25 14:00 04/10/25 13:59 04/05/25 05:54 100 MLS/HR Vancomycin HCl 200 ml @ 160 mls/hr Q24H IV 04/04/25 16:00 04/04/25 15:58 160 MLS/HR Nifedipine 90 mg DAILY PO 04/06/25 10:00 Losartan Potassium 25 mg DAILY PO 04/06/25 10:00 objective GENERAL: Awake. EYES: PERRL, EOMI. Anicteric. HENT: Moist mucous membranes. LUNGS: Decreased breath sounds. CARDIOVASCULAR: Regular rate and rhythm. ABDOMEN: Soft, non-tender and non-distended. EXTREMITIES: No edema. SKIN: Warm, dry. laboratory and microbiology Laboratory Tests 04/05/25 05:04 Test 04/05/25 05:04 Range/Units Serum Glucose 131 H 74-106 mg/dL Problem List Multiple acute/subacute strokes. Hypokalemia. Acute kidney injury. Hypertension, newly diagnosed. Insulin-dependent diabetes mellitus. Status post right BKA. Dyslipidemia. Polysubstance use disorder. Left lower extremity cellulitis. Peripheral vascular disease status post right [id number] amputation 6 months ago. Sepsis. Diabetic neuropathy. Assessment/Plan Continued all current supportive medical care. Aspirin, Lipitor, Metoprolol. DVT and GI prophylactics. IV Hydralazine for SBP >160. IV antibiotics as ordered. Additional plan as per the hospital course. Critical care time of 45 minutes provided to include time spent evaluation of patient at bedside, when appropriate patient/family education for diagnosis, treatment plan, review of pertinent medical information and discussion of care with specialty providers and PCP. Dietary Evaluation Review Comments: 1) Esau 1 pk BID 2) Refer Hat Checker on DC 3) Continue current plan of care Expected Outcomes/Goals: Pt will meet >75% estimated needs Fu 3-5 days Plan discussed with: Patient YANIRA WINN MD April 05, 2025 13:30
[2025-04-06] VITALS (84 sets, daily range): BP systolic 66–174; BP diastolic 39–96; PULSE 60–123; RESP 0–25; TEMP 94.2–97.6; O2SAT 44–100
[2025-04-06 05:25] LABS: Basophils # (auto) 0.1 10 ^3/uL (0-0.2); Lymphocytes # (auto) 1.5 10 ^3/uL (0.4-5.4); Monocytes # (auto) 0.5 10 ^3/uL (0-1.3); Monocytes % (auto) 5.3 % (0.0-12.0); Neutrophils # (auto) 6.5 10 ^3/uL (1.6-8.6); Nucleated Red Blood Cells % 0.1 %; White Blood Cell 9.1 10^3/uL (4.4-10.8)
[2025-04-06 05:28] LABS: Basophils % (auto) 1.2 % (0.0-2.0); Eosinophils # (auto) 0.5 10 ^3/uL (0-0.8); Eosinophils % (auto) 5.2 % (0.0-7.0); Hematocrit 27.6 % (36.0-46.0); Hemoglobin 9.3 g/dL (12.2-16.2); Lymphocytes % (auto) 16.8 % (10.0-50.0); Mean Corpuscular Hemoglobin 28.7 pg (28.0-32.0); Mean Corpuscular Hgb Conc. 33.6 g/dL (32.0-36.0); Mean Corpuscular Volume 85.5 fL (80.0-100.0); Neutrophils % (auto) 71.5 % (37.0-80.0); Platelet Count (auto) 442 10^3/uL (140-450); Red Blood Cells 3.22 10^6/uL (4.0-5.20); Red Cell Distribution Width 17.1 % (11.8-14.3)
[2025-04-06 05:40] LABS: Anion Gap 8 (5-15); Calcium 8.8 mg/dL (8.7-10.4); Potassium 4.4 mmol/L (3.5-5.1); Sodium 141 mmol/L (136-145)
[2025-04-06 05:41] LABS: Alanine Aminotransferase < 9 U/L (7-40); Albumin 2.6 g/dL (3.2-4.8); Alkaline Phosphatase 170 U/L (46-116); Aspartate Aminotransferase 13 U/L (13-40); Carbon Dioxide 17 mmol/L (20-31); Chloride 116 mmol/L (98-107); Glucose 142 mg/dL (74-106)
[2025-04-06 05:59] LABS: BUN/Creatinine Ratio 20.6 (10.0-20.0); Blood Urea Nitrogen 22 mg/dL (9-23)
[2025-04-06 06:00] LABS: Total Protein 5.7 g/dL (5.7-8.2)
[2025-04-06 06:06] LABS: Bilirubin, Total < 0.2 mg/dL (0.2-1.0)
[2025-04-06] MEDS: ROCURONIUM 10MG/ML 10ML VIAL IV ONE ×2 (09:58→11:04)
[2025-04-06] MEDS: SUCCINYLCHOLINE CHLORIDE 20 MG/ML 10ML VIAL IV ONE (09:58)
[2025-04-06] MEDS: ETOMIDATE (2MG/ML) 20ML VIAL IV ONE ×2 (09:59→11:04)
[2025-04-06] MEDS: LOSARTAN POTASSIUM 25 MG TAB PO SCH (10:00)
[2025-04-06] MEDS: NIFEdipine ER 30 MG TAB PO SCH (10:00)
[2025-04-06] MEDS: fentaNYL Drip 2500mCg/250mlNS 250 ML IV ONE (10:00)
[2025-04-06] MEDS: MIDAZOLAM DRIP 50 mg/50mL 50 ML IV ONE (10:01)
--- NOTE | 2025-04-06 10:30 | DVHNC2 ---
Intubation Indication: Respiratory Insufficiency Prep: Preoxygenation Pretreated with: Sedation Medicated with: Other (rocuronium) Intubation Approach: Orotracheal UTO Consent yes Notes 8mm ET tube placed at 24 cm at the lip Positive color change on the calorimetric capnograph condensation seen in the ETT B/L chest rise and breath sounds heard placement confirmed with an X ray, repositioned to 20 cm at the lip Date of Service: April 06, 2025 Billing Provider: JENNIFER HAWTHORNE MD Common Visit Codes: PROCEDURE ONLY Procedure Codes: [id number] CAYDEN PIÑA RESIDENT April 06, 2025 10:30 JENNIFER HAWTHORNE MD April 07, 2025 14:14
--- NOTE | 2025-04-06 10:58 | RESUS ---
SAVANNA MCKEON ASSESSSMENT History of Events History of Events: Per primary RN, patient noted to have decreased O2 saturation displaying on the bedside monitoring tech. Upon assessment, patient appeared cyanotic in the face, with agonal respirations. While attempting to assist with ventilations, no pulse detected. CPR started by staff. Initial Information Date: April 06, 2025 Time: 09:48 Location of Arrest: ICU (Central) Arrest Witnessed: Yes CPR started initial time: 09:48 CPR started by whom: Hospital Staff Type of arrest: Cardiac, Respiratory Spontaneous Respirations: No Pulse Present: No Monitoring: Pulse Oximetry, Telemetry Crash Cart Opened and Supplies: Yes Airway Ventilation Breathing at Onset: Assisted Oxygen Delivery Method: Ambu-Bag Oxygen 100% Time of first Assisted Ventila: 09:48 Artificial Ventilation: Bag/Mask, Bag/Endo tube Intubation Time: 10:05 Intubation Size: 8.0 cuffed Intubated by: Dr Mendoza Intubation Attempts: 2 Intubated orally: Yes Tube secured at: 24 CO2 indicator used: Yes Confirmation: Auscultation, Exhaled CO2, Chest X-ray Suctioning (Oral/Tracheal): No Comments: patient intubated post ROSC Circulation Circulation #1: Time: 09:50 Circulation Comment: PEA Circulation #2: Time: 09:52 Circulation Comment: PEA Circulation #3: Time: 09:54 Circulation Comment: PEA Circulation #4: Time: 09:56 Pulse Rate (adult): 120 Blood Pressure Systolic: 156 Blood Pressure Diastolic: 102 Circulation Comment: SINUS TACH/ ROSC Medications & Response Medications and Responses #1: Medication Time: 09:51 ADULT Medications Given ADULT: Epinephrine 1 mg Route of Administration: IV Medications and Responses #2: Medication Time: 09:54 ADULT Medications Given ADULT: Epinephrine 1 mg, Sodium Bacarbinate 50 meq Route of Administration: IV Procedure - Central Venous Cat Comment: central line to left IJ present prior to SAVANNA MCKEON Procedure - Acosta Catheter Urinary Catheter Type/Location: Uretheral (Acosta) Urine Appearance: Clear Urine Color: Yellow Acosta Catheter Secured: Yes Comment: acosta catheter present prior to savanna mckeon Nurses Notes [place] Coma Scale Eye Opening: None (1) [place] Coma Scale Verbal: None (1) [place] Coma Scale Motor: None (1) Pupil Reaction: Brisk Bedside Blood Glucose: 140 EKG Rhythm: Sinus Tachycardia Time Code Ended Time Code Ended: 09:56 Post Arrest Status: Ventilated Outcome of code: Successful Attending called: Yes Code Team Present: Dr Taniya Mendoza administrative asst Neisha RN Pio See RN Mary Ellen CCT Noris RT Gurpreet RT Jordana ROSC Time of ROSC: 09:56 Date of Service: April 06, 2025 Billing Provider: HILARIO LOUIS MD Common Visit Codes: PROCEDURE ONLY Procedure Codes: [id number] CODE Mary Ellen Michaud April 06, 2025 10:58 HILARIO LOUIS MD April 14, 2025 00:40
[2025-04-06] MEDS: fentaNYL Drip 2500mCg/250mlNS 250 ML IV SCH (11:06)
[2025-04-06] MEDS: NOREPINEPHRINE 8 MG/250ML KIT 250 ML IV SCH (11:07)
--- NOTE | 2025-04-06 11:15 | DVH ---
XY CHEST PORTABLE, HISTORY: ETT TUBE PLACEMENT/ INTUBATION COMPARISON: XY CHEST PORTABLE on DOS: 04/01/25, XY CHEST PORTABLE on DOS: 03/31/25, XY CHEST PORTABLE on DOS: 03/29/25 XY CHEST PORTABLE on DOS: 04/01/25, XY CHEST PORTABLE on DOS: 03/31/25, XY CHEST PORTABLE on DOS: 03/29/25 TECHNICAL DATA: 1 view of the chest was obtained. FINDINGS: Lines and tubes: Endotracheal tube at the level of the caleb consider retracting by 2cm. Enteric tu be in the stomach. Left central venous catheter in the SVC. Cardiomediastinal silhouette: Indistinct Pulmonary vasculature: Prominent Lung expansion: Low Lung airspace: Near complete opacification of the left hemithorax. Lung interstitium: Prominent Pleura: Left pleural effusion.1 Pneumothorax: no Bones: Unremarkable Other: no IMPRESSION: Endotracheal tube at the level of the caleb consider retracting by 2cm. Enteric tube in the stomach. Left central venous catheter in the SVC. Near complete opacification of the left hemithorax.
[2025-04-06 11:23] LABS: Basophils # (auto) 0.1 10 ^3/uL (0-0.2); Lymphocytes # (auto) 1.9 10 ^3/uL (0.4-5.4); Monocytes # (auto) 0.5 10 ^3/uL (0-1.3); Neutrophils # (auto) 9.9 10 ^3/uL (1.6-8.6)
[2025-04-06 11:25] LABS: Basophils % (auto) 0.7 % (0.0-2.0); Eosinophils # (auto) 0.4 10 ^3/uL (0-0.8); Eosinophils % (auto) 3.3 % (0.0-7.0); Hematocrit 26.6 % (36.0-46.0); Hemoglobin 8.8 g/dL (12.2-16.2); Lymphocytes % (auto) 14.9 % (10.0-50.0); Mean Corpuscular Hemoglobin 28.3 pg (28.0-32.0); Mean Corpuscular Hgb Conc. 32.9 g/dL (32.0-36.0); Mean Corpuscular Volume 86.2 fL (80.0-100.0); Monocytes % (auto) 3.7 % (0.0-12.0); Neutrophils % (auto) 77.4 % (37.0-80.0); Platelet Count (auto) 453 10^3/uL (140-450); Red Blood Cells 3.09 10^6/uL (4.0-5.20); Red Cell Distribution Width 16.4 % (11.8-14.3); White Blood Cell 12.8 10^3/uL (4.4-10.8)
[2025-04-06 11:37] LABS: INR 1.14 (0.9-1.15); Partial Thromboplastin Time 37.9 SEC (24.5-34.5); Prothrombin Time 11.9 sec (9.3-11.8)
[2025-04-06 11:52] LABS: Alanine Aminotransferase 14 U/L (7-40); Anion Gap 9 (5-15); Aspartate Aminotransferase 20 U/L (13-40); BUN/Creatinine Ratio 22.6 (10.0-20.0); Magnesium 1.6 mg/dL (1.6-2.6); Potassium 4.8 mmol/L (3.5-5.1); Sodium 142 mmol/L (136-145)
[2025-04-06 11:53] LABS: Lactic Acid w/Reflex 2.1 mmol/L (0.4-2.0)
[2025-04-06 11:57] LABS: Albumin 2.1 g/dL (3.2-4.8); Alkaline Phosphatase 182 U/L (46-116); Bilirubin, Total < 0.2 mg/dL (0.2-1.0); Blood Urea Nitrogen 26 mg/dL (9-23); Calcium 8.4 mg/dL (8.7-10.4); Carbon Dioxide 18 mmol/L (20-31); Chloride 115 mmol/L (98-107); Glucose 175 mg/dL (74-106); Total Protein 4.7 g/dL (5.7-8.2)
--- NOTE | 2025-04-06 12:35 | DVH ---
EXAM: XY CHEST PORTABLE HISTORY: ETT PLACEMENT COMPARISON: XY CHEST PORTABLE on DOS: 04/06/25, XY CHEST PORTABLE on DOS: 04/01/25, XY CHEST PORTABLE on DOS: 03/31/25, XY CHEST PORTABLE on DOS: 03/29/25, XY CHEST XRAY 1 VIEW on DOS: 03/28/25 TECHNIQUE: Portable AP view of the chest was performed. FINDINGS: Endotracheal tube is re-identified with its tip 1.8 cm above the caleb. OG tube is re-identified wi th its tip in the stomach 13 cm distal to the GE junction. Left subclavian central line is re-identi fied. There is diffuse interstitial prominence, improved. There is opacification of the inferior half of the left hemithorax, improved. No pneumothorax. The left heart border is obscured. IMPRESSION: 1. Mechanical ventilation with tubes and lines as above. 2. Improved left lung opacities and diffuse interstitial prominence.
[2025-04-06 14:41] LABS: Base Excess -10.1 mmol/L (-2.0-3.0)
--- NOTE | 2025-04-06 18:02 | DVHPN2 ---
Assessment/Plan Assessment/Plan ICU note covering off nicardipine, doing well. in the morning suddenly became hypoxic and cyanotic, code blue was called. ROSC after 1 epi, however cyanotic and remains hypoxic, decision to intubate. discussed with family, for trach and peg. obtain CT. d/w pulm possible bronch. physical exam sedated and mevhanically ventilated pupil equal, reflexes intact abdomen distended, improved after LIS R BKA labs ekg imaging reviewed assessment and plan Acute hypoxic/metabolic/toxic encephalopathy Acute hypoxic respiratory failure Severe sepsis with leukocytosis and fever due to soft tissue infection/cellulitis and suspected left knee infection Multiple acute/subacute strokes Electrolytes imbalance with hypokalemia and hypomagnesemia TATIANNA; most likely vasomotor nephropathy in the setting of sepsis; avoid nephrotoxic agents; nephrology is following; morning labs pending; continue monitoring Uncontrolled diabetes mellitus type 2 with hyperglycemia PAD status post right BKA Multiple left foot diabetic ulcers Polysubstance (marijuana and tobacco) use disorder Obesity carbapenem resistant pseudomonas PNA c/w sedation maintain RAAS -3 c/w pressors maintain map >65 c/w mechanical vent obtain ct head cxr c/w abx diet tf dvt ppx lovenox gi ppx protonix full code prognosis poor condition critical 120 minutes critical care time spent Plan discussed with: Other My Orders Orders - JENNIFER HAWTHORNE MD Procedure Category Date Status Time Chest Portable XY 04/06/25 Resulted 10:04 Ventilator Setup RT 04/06/25 Logged 10:05 Respiratory Culture LANCE 04/06/25 In Process W/ Gs 10:08 Abg W/ Co-Ox RT 04/06/25 Logged 11:[address] 04/06/25 Logged 10:16 Fentanyl Drip PHA 04/06/25 In Process 2500mcg/250mlns 11:00 Rass Sedation Scale HAYDER 04/06/25 In Process 10:51 Norepinephrine 8 PHA 04/06/25 In Process Mg/250ml Kit 11:00 Chest Portable XY 04/06/25 Resulted 11:53 Chest Portable XY 04/06/25 Taken 15:50 Ventilator Orders RT 04/06/25 Transmitted 14:13 Date of Service: April 06, 2025 Billing Provider: JENNIFER HAWTHORNE MD Common Visit Codes: [id number] CARE 30-74 MIN, 22037-[id number] CARE-EACH +30MIN JENNIFER HAWTHORNE MD April 06, 2025 18:02
--- NOTE | 2025-04-06 18:07 | DVH ---
EXAM: XY CHEST PORTABLE TECHNIQUE: Single frontal chest radiograph CLINICAL HISTORY: PICC LINE PLACEMENT COMPARISON: XY CHEST PORTABLE on DOS: 04/06/25, XY CHEST PORTABLE on DOS: 04/06/25, XY CHEST PORTABLE o n DOS: 04/01/25 Findings/Impression: Frontal chest radiograph demonstrates no acute osseous or superficial soft tissue abnormalities. Endotracheal tube terminates 3.3 cm from the caleb. Enteric tube is descending down into the stomach with the distal tip not visualized. Left central venous catheter terminates in the right atrium. Right upper extremity PICC may terminate in the right ventricle; however, the distal tip is not well visualized. Recommend repeat chest radiograph with over penetration. The trachea is midline. Mild cardiomegaly with pulmonary vascular congestion. No pneumothorax.
--- NOTE | 2025-04-06 23:04 | DVHPN2 ---
Progress Note - Dictate Date Seen: April 06, 2025 Medical Necessity Reason Pt with a Central, PICC or Fol: Yes The following are medically ne: Acosta Catheter Reason for acosta catheter: Strict I&O Subjective Patient was seen and evaluated in follow up in the ICU. This morning the patient became hypoxic and cyanotic, code blue was called. ROSC after 1 epi. However cyanotic and remains hypoxic and was intubated. Patient will likely need trach/PEG. WBC 12.8, HCT 8.8, HCT 26.6, BUN 26, PRINT DECORATOR 1.15, CA 8.4. Chest x-ray showed improved left lung opacities and diffuse interstitial prominence. vital signs Vital Sign Date Time Temp Pulse Resp B/P (MAP) Pulse Ox O2 Delivery O2 Flow Rate FiO2 04/06/25 14:00 20 100 Mechanical Ventilator+ 0 40 40 04/06/25 14:00 69 04/06/25 13:45 133/75 (94) 04/06/25 12:00 96.0 96.0 Total Intake and Output 04/05/25 04/05/25 04/06/25 15:00 23:00 07:00 Intake Total 800 ml 1400 ml 975 ml Output Total 850 ml 350 ml Balance 800 ml 550 ml 625 ml medications Current Medications Medications Dose Ordered Sig/John Route Start Time Stop Time Status Last Admin Dose Admin Acetaminophen 650 mg Q6HP PRN PO 02/19/25 13:45 03/09/25 21:36 650 MG Diagnostic Test (Pha) 1 strip ACHS 02/19/25 17:00 04/06/25 11:11 1 STRIP Dextrose 50 ml UD PRN IV 02/19/25 15:45 03/14/25 21:04 50 ML Potassium Chloride 100 ml @ 50 mls/hr Q2H IV 02/19/25 23:15 02/20/25 05:14 Cancel Potassium Chloride 100 ml @ 50 mls/hr Q2H IV 02/20/25 07:15 02/20/25 11:14 UNV Gabapentin 100 mg TID PO 03/02/25 14:00 04/06/25 06:49 100 MG Calcium Acetate 1,334 mg TIDWMEALS PO 03/04/25 12:00 04/06/25 08:11 1,334 MG Ergocalciferol 50,000 unit Q7D PO 03/04/25 11:45 03/25/25 15:05 50,000 UNIT Zirconium Oxide 10 gm TID PO 03/07/25 14:00 Cancel Sodium Bicarbonate 50 ml/ Sodium Chloride 1,050 ml @ 100 mls/hr [id number] IV 03/07/25 11:45 Cancel Pantoprazole Sodium 40 mg BID IV 03/13/25 10:00 04/06/25 11:10 40 MG Albuterol 2.5 mg Q6HR NEB 03/13/25 12:00 04/06/25 13:43 2.5 MG Ipratropium [place] 0.5 mg Q6HR NEB 03/13/25 12:00 04/06/25 13:44 0.5 MG Saccharomyces Boulardii 250 mg DAILY PO 03/14/25 10:00 04/05/25 09:33 250 MG Duloxetine HCl 30 mg DAILY PO 03/22/25 10:00 04/05/25 09:34 30 MG Lamotrigine 25 mg DAILY PO 03/22/25 10:00 04/05/25 09:33 25 MG Atorvastatin Calcium 80 mg HS PO 03/24/25 22:00 04/05/25 21:48 80 MG Enoxaparin Sodium 40 mg DAILY SC 03/25/25 10:00 04/06/25 11:11 40 MG Aspirin 81 mg DAILY NG 03/25/25 10:00 04/06/25 10:00 81 MG Acetylcysteine 100 mg Q6HR NEB 03/26/25 18:00 04/06/25 13:44 100 MG Midazolam HCl 50 ml @ 1 mls/hr Q24H IV 03/27/25 09:15 04/06/25 12:48 5 MLS/HR Insulin Human Regular ACHS SC 03/30/25 22:00 04/06/25 12:43 3 UNITS Guaifenesin 200 mg Q4HP PRN PO 04/01/25 16:00 04/01/25 22:16 200 MG Vancomycin HCl 0 ml @ 0 mls/hr UD IV 04/02/25 18:30 04/14/25 18:30 Potassium Chloride 40 meq/ Dextrose 1,020 ml @ 75 mls/hr [id number] IV 04/03/25 08:45 04/05/25 23:11 75 MLS/HR Ceftolozane/ Tazobactam 1.5 gm/ Dextrose 100 ml @ 100 mls/hr Q8HR IV 04/03/25 14:00 04/10/25 13:59 04/06/25 06:49 100 MLS/HR Vancomycin HCl 200 ml @ 160 mls/hr Q24H IV 04/04/25 16:00 04/05/25 16:13 160 MLS/HR Nifedipine 90 mg DAILY PO 04/06/25 10:00 Losartan Potassium 25 mg DAILY PO 04/06/25 10:00 Ondansetron HCl 4 mg Q8HP PRN PO 04/05/25 15:30 Fentanyl Citrate 250 ml @ 2.5 mls/hr Q24H IV 04/06/25 11:00 04/06/25 11:06 2.5 MLS/HR Norepinephrine Bitartrate 250 ml @ 3.75 mls/hr Q24H IV 04/06/25 11:00 04/06/25 11:07 3.75 MLS/HR objective GENERAL: Ill appearing, intubated on ventilator. EYES: PERRL, EOMI. Anicteric. HENT: Moist mucous membranes. LUNGS: Decreased breath sounds. CARDIOVASCULAR: Regular rate and rhythm. ABDOMEN: Soft, non-tender and non-distended. EXTREMITIES: No edema. SKIN: Warm, dry. laboratory and microbiology Laboratory Tests 04/06/25 11:00 Test 04/06/25 11:00 Range/Units Serum Glucose 175 H 74-106 mg/dL Problem List Multiple acute/subacute strokes. Hypokalemia. Acute kidney injury. Hypertension, newly diagnosed. Insulin-dependent diabetes mellitus. Status post right BKA. Dyslipidemia. Polysubstance use disorder. Left lower extremity cellulitis. Peripheral vascular disease status post right [id number] amputation 6 months ago. Sepsis. Diabetic neuropathy. Assessment/Plan Continued all current supportive medical care. Aspirin, Lipitor, Metoprolol. DVT and GI prophylactics. IV Hydralazine for SBP >160. Vasopressors for hemodynamic support. IV antibiotics as ordered. Additional plan as per the hospital course. Critical care time of 45 minutes provided to include time spent evaluation of patient at bedside, when appropriate patient/family education for diagnosis, treatment plan, review of pertinent medical information and discussion of care with specialty providers and PCP. Mechanical ventilator parameters, treatment and adjustments have personally been reviewed by me and treatment plan by metal bending machine operator has also been reviewed. Dietary Evaluation Review Comments: 1) Esau 1 pk BID 2) Refer Flexographic Press Helper on DC 3) Continue current plan of care Expected Outcomes/Goals: Pt will meet >75% estimated needs Fu 3-5 days Plan discussed with: Other YANIRA WINN MD April 06, 2025 15:41
--- NOTE | 2025-04-06 23:07 | DVHPN2 ---
Progress Note - Dictate Date Seen: April 06, 2025 Medical Necessity Reason Pt with a Central, PICC or Fol: Yes The following are medically ne: Acosta Catheter Reason for acosta catheter: Strict I&O Subjective Patient seen and examined at bedside. Sedated, intubated on mechanical ventilator. Overnight events reviewed. vital signs Vital Sign Date Time Temp Pulse Resp B/P (MAP) Pulse Ox O2 Delivery O2 Flow Rate FiO2 04/06/25 22:14 71 18 116/73 (87) 100 30 04/06/25 20:00 95.0 95.0 04/06/25 18:00 Mechanical Ventilator+ 04/06/25 16:00 0 Total Intake and Output 04/05/25 04/05/25 04/06/25 15:00 23:00 07:00 Intake Total 800 ml 1400 ml 975 ml Output Total 850 ml 350 ml Balance 800 ml 550 ml 625 ml medications Current Medications Medications Dose Ordered Sig/John Route Start Time Stop Time Status Last Admin Dose Admin Acetaminophen 650 mg Q6HP PRN PO 02/19/25 13:45 03/09/25 21:36 650 MG Diagnostic Test (Pha) 1 strip ACHS 02/19/25 17:00 04/06/25 22:11 1 STRIP Dextrose 50 ml UD PRN IV 02/19/25 15:45 03/14/25 21:04 50 ML Potassium Chloride 100 ml @ 50 mls/hr Q2H IV 02/19/25 23:15 02/20/25 05:14 Cancel Potassium Chloride 100 ml @ 50 mls/hr Q2H IV 02/20/25 07:15 02/20/25 11:14 UNV Gabapentin 100 mg TID PO 03/02/25 14:00 04/06/25 22:10 100 MG Calcium Acetate 1,334 mg TIDWMEALS PO 03/04/25 12:00 04/06/25 17:30 1,334 MG Ergocalciferol 50,000 unit Q7D PO 03/04/25 11:45 03/25/25 15:05 50,000 UNIT Zirconium Oxide 10 gm TID PO 03/07/25 14:00 Cancel Sodium Bicarbonate 50 ml/ Sodium Chloride 1,050 ml @ 100 mls/hr [id number] IV 03/07/25 11:45 Cancel Pantoprazole Sodium 40 mg BID IV 03/13/25 10:00 04/06/25 22:10 40 MG Albuterol 2.5 mg Q6HR NEB 03/13/25 12:00 04/06/25 18:30 2.5 MG Ipratropium [place] 0.5 mg Q6HR NEB 03/13/25 12:00 04/06/25 18:30 0.5 MG Saccharomyces Boulardii 250 mg DAILY PO 03/14/25 10:00 04/05/25 09:33 250 MG Duloxetine HCl 30 mg DAILY PO 03/22/25 10:00 04/05/25 09:34 30 MG Lamotrigine 25 mg DAILY PO 03/22/25 10:00 04/05/25 09:33 25 MG Atorvastatin Calcium 80 mg HS PO 03/24/25 22:00 04/06/25 22:10 80 MG Enoxaparin Sodium 40 mg DAILY SC 03/25/25 10:00 04/06/25 11:11 40 MG Aspirin 81 mg DAILY NG 03/25/25 10:00 04/06/25 10:00 81 MG Acetylcysteine 100 mg Q6HR NEB 03/26/25 18:00 04/06/25 18:30 100 MG Midazolam HCl 50 ml @ 1 mls/hr Q24H IV 03/27/25 09:15 04/06/25 20:11 7 MLS/HR Insulin Human Regular ACHS SC 03/30/25 22:00 04/06/25 17:52 2 UNITS Guaifenesin 200 mg Q4HP PRN PO 04/01/25 16:00 04/01/25 22:16 200 MG Vancomycin HCl 0 ml @ 0 mls/hr UD IV 04/02/25 18:30 04/14/25 18:30 Potassium Chloride 40 meq/ Dextrose 1,020 ml @ 75 mls/hr [id number] IV 04/03/25 08:45 04/06/25 17:25 75 MLS/HR Ceftolozane/ Tazobactam 1.5 gm/ Dextrose 100 ml @ 100 mls/hr Q8HR IV 04/03/25 14:00 04/10/25 13:59 04/06/25 22:10 100 MLS/HR Nifedipine 90 mg DAILY PO 04/06/25 10:00 Losartan Potassium 25 mg DAILY PO 04/06/25 10:00 Ondansetron HCl 4 mg Q8HP PRN PO 04/05/25 15:30 Fentanyl Citrate 250 ml @ 2.5 mls/hr Q24H IV 04/06/25 11:00 04/06/25 20:10 20 MLS/HR Norepinephrine Bitartrate 250 ml @ 3.75 mls/hr Q24H IV 04/06/25 11:00 04/06/25 11:07 3.75 MLS/HR objective Gen.: Patient lying in bed in medical ICU. Sedated, intubated on mechanical ventilator. Head: Normocephalic, atraumatic. Eyes: PERRLA. Ears: Normal external anatomy. Throat: Endotracheal tube and orogastric tube in place. Neck: Supple, trachea midline. Chest: Transmitted breath sounds bilaterally. Decreased air entry bilaterally. No wheezing. Bibasilar crackles. Cardiovascular: Positive S1, positive S2. Regular rate and rhythm. Abdomen: Positive bowel sounds in all 4 quadrants. Soft, nontender, nondistended. : Acosta in place. Normal external genitalia. Rectal: Deferred. Skin: Warm, dry. Intact. Extremities: 2+ radial pulses bilaterally. No lower extremity edema. Neuro: Sedated. laboratory and microbiology Laboratory Tests 04/06/25 11:00 Test 04/06/25 11:00 Range/Units Serum Glucose 175 H 74-106 mg/dL Assessment/Plan Impression: Acute hypoxic respiratory failure On mechanical ventilator S/p cardiac arrest with ROSC Multiple acute/subacute strokes. Altered mental status Acute kidney injury. Hypertension, newly diagnosed. Insulin-dependent diabetes mellitus. Polysubstance use Peripheral vascular disease, s/p right BKA 6 months ago. Sepsis Events: Code linda was called in AM Patient suffered cardiac arrest, ROSC was achieved She required re-intubation and placement on mechanical ventilator Placed on AC mode with RR 18, VT 350, PEEP 5, FIO2 40% STAT head CT ordered Sedated on Versed 7 mg/hr and Fentanyl 200 mcg/hr On pressors for hemodynamic support Levophed 4 mcg/min Titrate to keep mean arterial pressure greater than 65 mmHg. Head of bed elevation Aspiration precautions Continue bronchodilators/Mucomyst Continue antibiotics. Follow up cultures On statin Monitor hemoglobin Monitor renal function Monitor electrolytes. Supplement as needed Potassium supplementation Protonix BID for GI prophylaxis Lovenox for DVT prophylaxis ABG reviewed Chest x-ray showed improved left lung opacities and diffuse interstitial prominence. Labs and imaging reviewed. Rest of plan as noted below. Plan: S/p cardiac arrest Intubated, on mechanical ventilator. On AC mode with RR 18, VT 350, PEEP 5, FIO2 40% Titrate FIO2 to keep O2 saturation above 90%. VAP bundle. Daily ABG and CXR while intubated Sedate for ventilator synchrony HOB elevation Aspiration precautions On pressors for hemodynamic support Titrate to keep mean arterial pressure greater than 65 mmHg. Bronchodilators Continue antibiotics. F/u cultures. Accu-Cheks, ISS PRN. Monitor renal function Monitor electrolytes Supplement as needed Continue psych meds Tube feeds for nutritional support Pressors as necessary for hemodynamic support Titrate to keep mean arterial pressure greater than 65 mmHg. GI prophylaxis - Protonix. DVT prophylaxis - Lovenox. Prognosis: Poor given patient's multiple co-morbidities. Condition: Critical Rest of plan per hospitalist and other consultants. A total of 35 minutes of critical care time was spent reviewing the patient record, examining the patient, making a diagnostic and therapeutic plan, discussing this plan with the medical personnel, following up on diagnostic studies and following the patient for clinical stability excluding any and all procedures. At least 50% of this time was spent in direct, [id number] contact. Thank you, FRANCISCO Alansi, for allowing me to participate in this patient's care. Further recommendations will depend on the patient's clinical course. Please do not hesitate to contact me if you have any questions or concerns. This medical document was created using an electronic medical record system with [employer] dictation system. Although these documentations are being carefully reviewed, there may still be some phonetic and typographical changes. The errors are purely typographical, due to imperfection on the software program, and do not reflect any compromise in the patient's medical care. Dietary Evaluation Review Comments: 1) Esau 1 pk BID 2) Refer Marketing Coordinator on DC 3) Continue current plan of care Expected Outcomes/Goals: Pt will meet >75% estimated needs Fu 3-5 days Plan discussed with: Other (ASHLEY Cortez) Critical Care Time(min): 35 LARRY HERRERA MD April 06, 2025 23:07
--- NOTE | 2025-04-06 23:34 | DVH ---
CT STROKE CTH INDICATION: COMPARISON: CT HEAD WITHOUT CONTRAST on DOS: 03/13/25, CT STROKE CTH on DOS: 02/19/25 TECHNIQUE: CT of the head without intravenous contrast. RADIATION DOSE: CTDIvol: 54.13 mGy, DLP: 759.47 mGy*cm FINDINGS: There is no evidence of intracranial hemorrhage, large infarct, extra-axial collection, mass effect, midline shift, herniation or hydrocephalus. There is a small age-indeterminate infarct in the right posterior frontal periventricular white matter, likely subacute to old. Few additional small old lac unar infarcts are noted in bilateral basal ganglia greater on the right side. The ventricles, sulci a nd cisterns are age appropriate. Considerable fluid/mucosal thickening essentially completely opacifying the left sphenoid sinus; the remainder of the visualized paranasal sinuses are unremarkable. Mild nonspecific bilateral mastoid ef fusions greater on the left side. Soft tissues and osseous structures are unremarkable. IMPRESSION: Small age-indeterminate infarct in right posterior frontal periventricular white matter, likely suba cute to old. Few additional small old lacunar infarcts in bilateral basal ganglia greater on the rig ht side.
[2025-04-07] VITALS (109 sets, daily range): BP systolic 87–156; BP diastolic 49–87; PULSE 68–96; RESP 7–23; TEMP 96.8–99.1; O2SAT 96–100
--- NOTE | 2025-04-07 05:10 | DVH ---
CHEST RADIOGRAPH Indication: Intubated Technique: Single frontal view of the chest was obtained COMPARISON: XY CHEST PORTABLE on DOS: 04/06/25, XY CHEST PORTABLE on DOS: 04/06/25, XY CHEST PORTABLE o n DOS: 04/06/25, XY CHEST PORTABLE on DOS: 04/01/25, XY CHEST PORTABLE on DOS: 03/31/25 FINDINGS: Lines and Tubes: Endotracheal tube, enteric catheter and left central venous catheter in satisfactory position Lungs: Mild pulmonary vascular congestion Pleura: No effusion. No pneumothorax. Cardiomediastinal contours: Cardiomegaly Bones: Unremarkable IMPRESSION: Lines and tubes in satisfactory position. No significant interval change.
[2025-04-07 05:52] LABS: Basophils # (auto) 0.1 10 ^3/uL (0-0.2); Basophils % (auto) 0.8 % (0.0-2.0); Eosinophils # (auto) 0.4 10 ^3/uL (0-0.8); Hemoglobin 8.5 g/dL (12.2-16.2); Lymphocytes # (auto) 1.9 10 ^3/uL (0.4-5.4); Lymphocytes % (auto) 19.6 % (10.0-50.0); Mean Corpuscular Hemoglobin 28.6 pg (28.0-32.0); Mean Corpuscular Hgb Conc. 32.6 g/dL (32.0-36.0); Mean Corpuscular Volume 87.9 fL (80.0-100.0); Monocytes # (auto) 0.5 10 ^3/uL (0-1.3); Monocytes % (auto) 4.7 % (0.0-12.0); Neutrophils % (auto) 70.9 % (37.0-80.0); Nucleated Red Blood Cells % 0.1 %; Platelet Count (auto) 442 10^3/uL (140-450); Red Blood Cells 2.96 10^6/uL (4.0-5.20); White Blood Cell 9.8 10^3/uL (4.4-10.8)
[2025-04-07 06:02] LABS: Potassium 5.1 mmol/L (3.5-5.1); Sodium 139 mmol/L (136-145)
[2025-04-07 06:03] LABS: Anion Gap 8 (5-15)
[2025-04-07 06:08] LABS: BUN/Creatinine Ratio 17.9 (10.0-20.0); Blood Urea Nitrogen 22 mg/dL (9-23); Magnesium 1.7 mg/dL (1.6-2.6)
[2025-04-07 06:10] LABS: Calcium 8.7 mg/dL (8.7-10.4); Carbon Dioxide 18 mmol/L (20-31); Chloride 113 mmol/L (98-107); Glucose 128 mg/dL (74-106)
[2025-04-07 06:25] LABS: Phosphorus 3.2 mg/dL (2.4-5.1)
[2025-04-07 06:46] LABS: Base Excess -10.1 mmol/L (-2.0-3.0)
[2025-04-07] MEDS: D5W 5% 1,000 ML IV SCH (11:05)
--- NOTE | 2025-04-07 11:15 | DVHPN2 ---
Progress Note - Dictate Date Seen: April 07, 2025 Medical Necessity Reason Pt with a Central, PICC or Fol: Yes The following are medically ne: Acosta Catheter Reason for acosta catheter: Strict I&O Subjective Mr. Kaur is a 54 years old right-handed female with a history of hypertension, diabetes, dyslipidemia, anxiety, GERD, osteo myelitis status post right BKA, she came to the [facility] on 02/19/25 with a chief complaint of general weakness. He was transferred/ICU on 03/13/25 for ALOC, nasal bleeding and intubation I have seen and examined the patient, I have talked to her nurse, unfortunately, she was coded on 04/06/2025 for 8 minutes, she has been reintubated since At that time, she was responsive to painful stimuli, she has brainstem reflexes, but no spontaneous extremity movement Psychiatry consultation, 02/26/25: 1:1 sitter. Transferred to inpatient psychiatric facility. Cymbalta 30 mg b.i.d. ABG, 03/13/2025: Unremarkable UDS, 02/19/2025: Cannabinoids Plasma alcohol, 02/19/2025: 3 Urinalysis, 02/19, : WBC: 2, urine leukocyte esterase WBC/HB/PLT/MCV, 02/20/2025: 21.9/10.9/398/83.1, 03/13/2025: 11.7/6.5/424/85.4 PT/INR/PTT, 03/13/2025: 10.6/1/38.6 K, 02/19/2025: 1.7, 02/20/2025: 2.1 BUN/CR, 02/20/2025: 33/2.03, 03/13/2025: 51.93 HGB A1c, 06/03/2024: 13.1 Liver function tests, 02/20/2025: Unremarkable TG/HDL/LDL/HDL, 04/11/2024: 180/238/164/43 MAGALIS, 02/21/2025: 1. Technically good study. Sinus rhythm. 2. Left atrial enlargement. 3. Number Valves appear to be structurally normal. 4. Ventricular systolic function is preserved at 60% with normal RV function. 5. Doppler reveals mild TR. No significant mitral or aortic insufficiency. No atrial septal or ventricular septal defects 6. No masses or vegetations discernible. 7. The atrial appendage looks clean, no masses. No atrial or ventricular septal defects as noted. No abnormal shunting. Bubble study was negative 8. The valves appear to be structurally normal. No vegetations or signs of emboli present. Carotid Doppler, 02/20/2025: No hemodynamically significant stenosis noted in the right carotid system. No hemodynamically significant stenosis noted in the left carotid system. Chest X-ray, 03/19/25: 1. Endotracheal tube terminates 4cm from caleb. Other lines and tubes are unchanged in position. 2. Bilateral airspace disease similar to prior study. CT head, : Small age-indeterminate infarct extending from the right jorge radiata into the right basal ganglia. Further evaluation with MRI brain with diffusion-weighted imaging is recommended. CT head, , No acute intracranial abnormality. Multiple subacute bilateral lacunar infarcts as seen on prior MRI. MRI head, 02/19/2025: 1. There are multiple small foci of acute to subacute infarct in the right jorge radiata and right basal ganglia. There are also multiple small acute to subacute infarcts in the left anteromedial frontal lobe and in the left jorge radiata and left basal ganglia. There is no evidence of acute hemorrhage MR head, 03/21/2025: 1. Multiple foci of restricted diffusion involving the left corpus callosum, bilateral basal ganglia and right jorge radiata. The largest area involves the left splenium of the corpus callosum. These likely represent acute to subacute infarcts. There is no evidence of acute hemorrhage. 2. Moderate amount of fluid in the bilateral mastoid air cells MRI left foot, 02/22/25: Moderate dorsal subcutaneous edema. No evidence of osteomyelitis. No drainable fluid collection noted. Moderate myositis. vital signs Vital Sign Date Time Temp Pulse Resp B/P (MAP) Pulse Ox O2 Delivery O2 Flow Rate FiO2 04/07/25 10:11 85 23 121/65 (83) 100 30 04/07/25 08:00 99.1 99.1 04/07/25 07:30 Mechanical Ventilator+ 0 Total Intake and Output 04/06/25 04/06/25 04/07/25 15:00 23:00 07:00 Intake Total 699.0 ml 1111.0 ml 897.50 ml Output Total 900 ml 700 ml Balance 699.0 ml 211.0 ml 197.50 ml medications Current Medications Medications Dose Ordered Sig/John Route Start Time Stop Time Status Last Admin Dose Admin Acetaminophen 650 mg Q6HP PRN PO 02/19/25 13:45 03/09/25 21:36 650 MG Diagnostic Test (Pha) 1 strip ACHS 02/19/25 17:00 04/07/25 06:57 1 STRIP Dextrose 50 ml UD PRN IV 02/19/25 15:45 03/14/25 21:04 50 ML Potassium Chloride 100 ml @ 50 mls/hr Q2H IV 02/19/25 23:15 02/20/25 05:14 Cancel Potassium Chloride 100 ml @ 50 mls/hr Q2H IV 02/20/25 07:15 02/20/25 11:14 UNV Gabapentin 100 mg TID PO 03/02/25 14:00 04/07/25 05:58 100 MG Calcium Acetate 1,334 mg TIDWMEALS PO 03/04/25 12:00 04/06/25 17:30 1,334 MG Ergocalciferol 50,000 unit Q7D PO 03/04/25 11:45 03/25/25 15:05 50,000 UNIT Zirconium Oxide 10 gm TID PO 03/07/25 14:00 Cancel Sodium Bicarbonate 50 ml/ Sodium Chloride 1,050 ml @ 100 mls/hr [id number] IV 03/07/25 11:45 Cancel Pantoprazole Sodium 40 mg BID IV 03/13/25 10:00 04/07/25 10:09 40 MG Albuterol 2.5 mg Q6HR NEB 03/13/25 12:00 04/07/25 05:57 2.5 MG Ipratropium [place] 0.5 mg Q6HR NEB 03/13/25 12:00 04/07/25 05:57 0.5 MG Saccharomyces Boulardii 250 mg DAILY PO 03/14/25 10:00 04/07/25 10:09 250 MG Duloxetine HCl 30 mg DAILY PO 03/22/25 10:00 04/07/25 10:09 30 MG Lamotrigine 25 mg DAILY PO 03/22/25 10:00 04/07/25 10:09 25 MG Atorvastatin Calcium 80 mg HS PO 03/24/25 22:00 04/06/25 22:10 80 MG Enoxaparin Sodium 40 mg DAILY SC 03/25/25 10:00 04/07/25 10:11 40 MG Aspirin 81 mg DAILY NG 03/25/25 10:00 04/07/25 10:09 81 MG Acetylcysteine 100 mg Q6HR NEB 03/26/25 18:00 04/07/25 05:57 100 MG Midazolam HCl 50 ml @ 1 mls/hr Q24H IV 03/27/25 09:15 04/07/25 02:41 5 MLS/HR Insulin Human Regular ACHS SC 03/30/25 22:00 04/06/25 17:52 2 UNITS Guaifenesin 200 mg Q4HP PRN PO 04/01/25 16:00 04/01/25 22:16 200 MG Vancomycin HCl 0 ml @ 0 mls/hr UD IV 04/02/25 18:30 04/14/25 18:30 Ceftolozane/ Tazobactam 1.5 gm/ Dextrose 100 ml @ 100 mls/hr Q8HR IV 04/03/25 14:00 04/10/25 13:59 04/07/25 05:58 100 MLS/HR Nifedipine 90 mg DAILY PO 04/06/25 10:00 Losartan Potassium 25 mg DAILY PO 04/06/25 10:00 Ondansetron HCl 4 mg Q8HP PRN PO 04/05/25 15:30 Fentanyl Citrate 250 ml @ 2.5 mls/hr Q24H IV 04/06/25 11:00 04/06/25 20:10 20 MLS/HR Norepinephrine Bitartrate 250 ml @ 3.75 mls/hr Q24H IV 04/06/25 11:00 04/06/25 11:07 3.75 MLS/HR Dextrose 1,000 ml @ 75 mls/hr [id number] IV 04/07/25 07:45 04/07/25 11:05 75 MLS/HR objective The patient is well-nourished and well-developed with no distress. The patient is intubated MENTAL STATUS: Subjective CRANIAL NERVES: Pupils are equal, round and reactive.There are corneal reflexes and doll's eyes phenomenon. No signs of facial weakness. There are gagging or coughing reflexes SENSATION: No responses to pain stimuli. MOTOR: Normal tone in the upper and lower extremity. Normal muscle bulk. No fasciculations. No spontaneous movement. REFLEXES: Deep tendon reflexes are symmetrical. No pathological reflexes. CEREBELLAR/COORDINATION: Deferred GAIT/STATION: deferred. laboratory and microbiology Laboratory Tests 04/07/25 05:11 Test 04/07/25 05:11 Range/Units Serum Glucose 128 H 74-106 mg/dL Problem List Acute respiratory failure, reintubated on 04/06/2025 Excessive nasal bleeding Come company resolved Metabolic encephalopathy Hypoxic encephalopathy Toxic encephalopathy Left hemiparesis secondary stroke Left homonymous hemianopsia secondary to stroke General weakness Multiple acute/subacute strokes (MRI head: 02/19/2025, 03/21/2025) Status post right BKA Depression Assessment/Plan Monitoring Supportive treatment ICU Stabilize vitals Respiratory support/vent management Oxygen Antibiotics Aspirin 81 mg daily Lipitor 80mg Qd Cymbalta 30 mg b.i.d. DVT prophylaxis/Lovenox Quit tobacco smoking completely More recommendation per clinical course This medical document was created using an electronic medical record system with [employer] dictation system. Although this document has been carefully reviewed, there may still be some phonetic and typographical errors. These areas are purely typographical due to imperfections of the software programs, and do not reflect any compromise in the patient's medical care. Dietary Evaluation Review Comments: 1) Esau 1 pk BID 2) Refer Binding Dyer on DC 3) Continue current plan of care Expected Outcomes/Goals: Pt will meet >75% estimated needs Fu 3-5 days Plan discussed with: Other Critical Care Time(min): 35 NEELA RUEDA MD April 07, 2025 11:15
--- NOTE | 2025-04-07 12:27 | DVHPN2 ---
Consult Progress Note Date Seen: April 05, 2025 Subjective Patient reports: Other Objective vital signs Vital Sign Date Time Temp Pulse Resp B/P (MAP) Pulse Ox O2 Delivery O2 Flow Rate FiO2 04/07/25 10:11 85 23 121/65 (83) 100 30 04/07/25 10:00 Mechanical Ventilator+ 0 04/07/25 08:00 99.1 99.1 Total Intake and Output 04/06/25 04/06/25 04/07/25 15:00 23:00 07:00 Intake Total 699.0 ml 1111.0 ml 897.50 ml Output Total 900 ml 700 ml Balance 699.0 ml 211.0 ml 197.50 ml medications Current Medications Medications Dose Ordered Sig/John Route Start Time Stop Time Status Last Admin Dose Admin Acetaminophen 650 mg Q6HP PRN PO 02/19/25 13:45 03/09/25 21:36 650 MG Diagnostic Test (Pha) 1 strip ACHS 02/19/25 17:00 04/07/25 11:33 1 STRIP Dextrose 50 ml UD PRN IV 02/19/25 15:45 03/14/25 21:04 50 ML Potassium Chloride 100 ml @ 50 mls/hr Q2H IV 02/19/25 23:15 02/20/25 05:14 Cancel Potassium Chloride 100 ml @ 50 mls/hr Q2H IV 02/20/25 07:15 02/20/25 11:14 UNV Gabapentin 100 mg TID PO 03/02/25 14:00 04/07/25 05:58 100 MG Calcium Acetate 1,334 mg TIDWMEALS PO 03/04/25 12:00 04/06/25 17:30 1,334 MG Ergocalciferol 50,000 unit Q7D PO 03/04/25 11:45 03/25/25 15:05 50,000 UNIT Zirconium Oxide 10 gm TID PO 03/07/25 14:00 Cancel Sodium Bicarbonate 50 ml/ Sodium Chloride 1,050 ml @ 100 mls/hr [id number] IV 03/07/25 11:45 Cancel Pantoprazole Sodium 40 mg BID IV 03/13/25 10:00 04/07/25 10:09 40 MG Albuterol 2.5 mg Q6HR NEB 03/13/25 12:00 04/07/25 05:57 2.5 MG Ipratropium [place] 0.5 mg Q6HR NEB 03/13/25 12:00 04/07/25 05:57 0.5 MG Saccharomyces Boulardii 250 mg DAILY PO 03/14/25 10:00 04/07/25 10:09 250 MG Duloxetine HCl 30 mg DAILY PO 03/22/25 10:00 04/07/25 10:09 30 MG Lamotrigine 25 mg DAILY PO 03/22/25 10:00 04/07/25 10:09 25 MG Atorvastatin Calcium 80 mg HS PO 03/24/25 22:00 04/06/25 22:10 80 MG Enoxaparin Sodium 40 mg DAILY SC 03/25/25 10:00 04/07/25 10:11 40 MG Aspirin 81 mg DAILY NG 03/25/25 10:00 04/07/25 10:09 81 MG Acetylcysteine 100 mg Q6HR NEB 03/26/25 18:00 04/07/25 05:57 100 MG Midazolam HCl 50 ml @ 1 mls/hr Q24H IV 03/27/25 09:15 04/07/25 02:41 5 MLS/HR Insulin Human Regular ACHS SC 03/30/25 22:00 04/06/25 17:52 2 UNITS Guaifenesin 200 mg Q4HP PRN PO 04/01/25 16:00 04/01/25 22:16 200 MG Vancomycin HCl 0 ml @ 0 mls/hr UD IV 04/02/25 18:30 04/14/25 18:30 Ceftolozane/ Tazobactam 1.5 gm/ Dextrose 100 ml @ 100 mls/hr Q8HR IV 04/03/25 14:00 04/10/25 13:59 04/07/25 05:58 100 MLS/HR Nifedipine 90 mg DAILY PO 04/06/25 10:00 Losartan Potassium 25 mg DAILY PO 04/06/25 10:00 Ondansetron HCl 4 mg Q8HP PRN PO 04/05/25 15:30 Fentanyl Citrate 250 ml @ 2.5 mls/hr Q24H IV 04/06/25 11:00 04/06/25 20:10 20 MLS/HR Norepinephrine Bitartrate 250 ml @ 3.75 mls/hr Q24H IV 04/06/25 11:00 04/06/25 11:07 3.75 MLS/HR Dextrose 1,000 ml @ 75 mls/hr [id number] IV 04/07/25 07:45 04/07/25 11:05 75 MLS/HR laboratory and microbiology Laboratory Tests 04/07/25 05:11 Test 04/07/25 05:11 Range/Units Serum Glucose 128 H 74-106 mg/dL Problem List/Assessment/Plan Problems(with codes): (1) Diabetic nephropathy (2) Dehydration (3) Hypertension (4) Accelerated hypertension (5) Intractable abdominal pain (6) Substance abuse (7) TATIANNA (acute kidney injury) (8) Sepsis (9) Uncontrolled diabetes mellitus (10) Acute abdominal pain Problem List/Assessment/Plan Pneumonia ESBL Klebsiella, Carbapenemic resistant Pseudomonas positive sputum culture , possible due to ventilator associated pneumonia Sepsis probably due to above Left patellar bursitis, I&D w bursectomy performed on 03/07/25 Left knee culture growing MSSA Left foot ulcer, dorsal aspect Multiple acute-subacute strokes Ruled out C diff colitis Hypokalemia TATIANNA on CKD Peripheral arterial disease s/p R BKA 6 months ago Type 2 diabetes, uncontrolled Diabetic neuropathy Angioedema of the tongue Plan: IV vancomycin for possible 2 weeks Zerbaxa 1.5g IV tid for 1 week, renal dosing (04/03/25-04/10/25) Ordered KUB, came back with nonobstructive bowel gas Hold off on PICC line for now, patient may be able to transitioned to and discharged on oral antibiotics for her knee infection, possibly on bactrim. 04/03: WBC is trending down, patient abdomen is soft, mildly tender on palpation, no diarrhea since last night. will dc vancomycin po and flagyl iv 04/03: WBC is within normal limits, patient is drowsy and nauseous, aspirations precaution established. Patient is a 64 year old female with a past medical history of diabetes, left foot ulcer , hypertension , hyperlipidemia , anxiety , peripheral arterial disease , depression , presents with left sided weakness and mild dysarthria . Had a brain MRI revealing multiple small falsi of acute to subacute infarcts in the right coronary radiata and right basal ganglia. Underwent MAGALIS which showed no masses or vegetation . Bubble study was negative , valve restriction is normal . Patient was intubated on 03/13 and a rapid was called . Intubated due to airway protection and excavated on 03/26. but then shortly reintubated due to possible right lower lobe aspiration.Is now on 2 liters nasal canula and has left knee swelling ,erythema , cultures were growing MSSA , however on Clindamycin and irrigation and debridement of left patella on 03/07. She is noting having some diarrhea, with some left knee swelling persistent after debridement . Surgical roxanne are clean and left upper extremity swelling is noted . Crackles in the lungs and is tachycardic Assessment: 04/02:Patient is growing pseudomonas , ESBL klebsiella on sputum culture likely due to hospital acquired pneumonia. possible C diff colitis. As well as an MSSA left knee bursitis that has yet to be treated with appropriate antibiotics. Patient has peripheral arterial disease and right decay and uncontrolled diabetes 04/03: patient is doing better , diarrhea has significantly improved and tolerating antibiotics without any fevers or chills . Patient is a bit drowsy . Patient has some mild angioedema of the tongue . C diff testing is negative 04/04: Patient was seen by Dr Velasco and tolerating diet. Agree with Dr. Velasco findings . Not having any worsening diarrhea 04/05: having diarrhea with antibiotic therapy , most recent chest xray shows lung bases that are unremarkable. clinically stable and worsening confusion and immunity , possible aspiration Plan: - recommend KUB to further evaluate for colitis - Continue IV vancomycin for MSSA left knee cellulitis - Continue Zerbaxa for hospital acquired pneumonia for at least 7 days and once completed and oral antibiotic for patients septic arthritis is a possibility , can potentially change to oral Bactrim once zerbaxa coarse has been completed tentatively 04/10/25 - no need for additional workup at this time Authorized and Performed by: Katerine Hughes Total critical care time: Approximately 76 minutes Due to a high probability of clinically significant, life threatening deterioration, the patient required my highest level of preparedness to intervene emergently and I personally spent this critical care time directly and personally managing the patient. This critical care time included obtaining a history; examining the patient; pulse oximetry; ordering and review of studies; arranging urgent treatment with development of a management plan; evaluation of patient's response to treatment; frequent reassessment; and, discussions with other providers. This critical care time was performed to assess and manage the high probability of imminent, life-threatening deterioration that could result in multi-organ failure. It was exclusive of separately billable procedures and treating other patients and teaching time. Plan discussed with: Other Dietary Evaluation Review Comments: 1) Esau 1 pk BID 2) Refer Senior Center Manager on DC 3) Continue current plan of care Expected Outcomes/Goals: Pt will meet >75% estimated needs Fu 3-5 days KATERINE HUGHES MD April 07, 2025 12:27
--- NOTE | 2025-04-07 12:38 | DVHPN2 ---
Consult Progress Note Date Seen: April 06, 2025 Subjective Patient reports: Feels worse (had a code blue event this morning and was found altered and unresponsive , with no pulse . EBG was acidosi and patient was intubated and is now on minimal vent and on pressers and levofed . sacral wound covered with foam patch and diarrhea ) Objective vital signs Vital Sign Date Time Temp Pulse Resp B/P (MAP) Pulse Ox O2 Delivery O2 Flow Rate FiO2 04/07/25 10:11 85 23 121/65 (83) 100 30 04/07/25 10:00 Mechanical Ventilator+ 0 04/07/25 08:00 99.1 99.1 Total Intake and Output 04/06/25 04/06/25 04/07/25 15:00 23:00 07:00 Intake Total 699.0 ml 1111.0 ml 897.50 ml Output Total 900 ml 700 ml Balance 699.0 ml 211.0 ml 197.50 ml medications Current Medications Medications Dose Ordered Sig/John Route Start Time Stop Time Status Last Admin Dose Admin Acetaminophen 650 mg Q6HP PRN PO 02/19/25 13:45 03/09/25 21:36 650 MG Diagnostic Test (Pha) 1 strip ACHS 02/19/25 17:00 04/07/25 11:33 1 STRIP Dextrose 50 ml UD PRN IV 02/19/25 15:45 03/14/25 21:04 50 ML Potassium Chloride 100 ml @ 50 mls/hr Q2H IV 02/19/25 23:15 02/20/25 05:14 Cancel Potassium Chloride 100 ml @ 50 mls/hr Q2H IV 02/20/25 07:15 02/20/25 11:14 UNV Gabapentin 100 mg TID PO 03/02/25 14:00 04/07/25 05:58 100 MG Calcium Acetate 1,334 mg TIDWMEALS PO 03/04/25 12:00 04/06/25 17:30 1,334 MG Ergocalciferol 50,000 unit Q7D PO 03/04/25 11:45 03/25/25 15:05 50,000 UNIT Zirconium Oxide 10 gm TID PO 03/07/25 14:00 Cancel Sodium Bicarbonate 50 ml/ Sodium Chloride 1,050 ml @ 100 mls/hr [id number] IV 03/07/25 11:45 Cancel Pantoprazole Sodium 40 mg BID IV 03/13/25 10:00 04/07/25 10:09 40 MG Albuterol 2.5 mg Q6HR NEB 03/13/25 12:00 04/07/25 05:57 2.5 MG Ipratropium [place] 0.5 mg Q6HR NEB 03/13/25 12:00 04/07/25 05:57 0.5 MG Saccharomyces Boulardii 250 mg DAILY PO 03/14/25 10:00 04/07/25 10:09 250 MG Duloxetine HCl 30 mg DAILY PO 03/22/25 10:00 04/07/25 10:09 30 MG Lamotrigine 25 mg DAILY PO 03/22/25 10:00 04/07/25 10:09 25 MG Atorvastatin Calcium 80 mg HS PO 03/24/25 22:00 04/06/25 22:10 80 MG Enoxaparin Sodium 40 mg DAILY SC 03/25/25 10:00 04/07/25 10:11 40 MG Aspirin 81 mg DAILY NG 03/25/25 10:00 04/07/25 10:09 81 MG Acetylcysteine 100 mg Q6HR NEB 03/26/25 18:00 04/07/25 05:57 100 MG Midazolam HCl 50 ml @ 1 mls/hr Q24H IV 03/27/25 09:15 04/07/25 02:41 5 MLS/HR Insulin Human Regular ACHS SC 03/30/25 22:00 04/06/25 17:52 2 UNITS Guaifenesin 200 mg Q4HP PRN PO 04/01/25 16:00 04/01/25 22:16 200 MG Vancomycin HCl 0 ml @ 0 mls/hr UD IV 04/02/25 18:30 04/14/25 18:30 Ceftolozane/ Tazobactam 1.5 gm/ Dextrose 100 ml @ 100 mls/hr Q8HR IV 04/03/25 14:00 04/10/25 13:59 04/07/25 05:58 100 MLS/HR Nifedipine 90 mg DAILY PO 04/06/25 10:00 Losartan Potassium 25 mg DAILY PO 04/06/25 10:00 Ondansetron HCl 4 mg Q8HP PRN PO 04/05/25 15:30 Fentanyl Citrate 250 ml @ 2.5 mls/hr Q24H IV 04/06/25 11:00 04/06/25 20:10 20 MLS/HR Norepinephrine Bitartrate 250 ml @ 3.75 mls/hr Q24H IV 04/06/25 11:00 04/06/25 11:07 3.75 MLS/HR Dextrose 1,000 ml @ 75 mls/hr [id number] IV 04/07/25 07:45 04/07/25 11:05 75 MLS/HR laboratory and microbiology Laboratory Tests 04/07/25 05:11 Test 04/07/25 05:11 Range/Units Serum Glucose 128 H 74-106 mg/dL Problem List/Assessment/Plan Problems(with codes): (1) Abdominal pain in male (2) Uncontrolled diabetes mellitus (3) Diabetic nephropathy (4) Hypertension (5) Dehydration (6) Uncontrolled diabetes mellitus (7) Acute abdominal pain (8) UTI (urinary tract infection) Problem List/Assessment/Plan Pneumonia ESBL Klebsiella, Carbapenemic resistant Pseudomonas positive sputum culture , possible due to ventilator associated pneumonia Sepsis probably due to above Left patellar bursitis, I&D w bursectomy performed on 03/07/25 Left knee culture growing MSSA Left foot ulcer, dorsal aspect Multiple acute-subacute strokes Ruled out C diff colitis Hypokalemia TATIANNA on CKD Peripheral arterial disease s/p R BKA 6 months ago Type 2 diabetes, uncontrolled Diabetic neuropathy Angioedema of the tongue Plan: IV vancomycin for possible 2 weeks Zerbaxa 1.5g IV tid for 1 week, renal dosing (04/03/25-04/10/25) Ordered KUB, came back with nonobstructive bowel gas Hold off on PICC line for now, patient may be able to transitioned to and discharged on oral antibiotics for her knee infection, possibly on bactrim. 04/03: WBC is trending down, patient abdomen is soft, mildly tender on palpation, no diarrhea since last night. will dc vancomycin po and flagyl iv 04/03: WBC is within normal limits, patient is drowsy and nauseous, aspirations precaution established. Patient is a 64 year old female with a past medical history of diabetes, left foot ulcer , hypertension , hyperlipidemia , anxiety , peripheral arterial disease , depression , presents with left sided weakness and mild dysarthria . Had a brain MRI revealing multiple small falsi of acute to subacute infarcts in the right coronary radiata and right basal ganglia. Underwent MAGALIS which showed no masses or vegetation . Bubble study was negative , valve restriction is normal . Patient was intubated on 03/13 and a rapid was called . Intubated due to airway protection and excavated on 03/26. but then shortly reintubated due to possible right lower lobe aspiration.Is now on 2 liters nasal canula and has left knee swelling ,erythema , cultures were growing MSSA , however on Clindamycin and irrigation and debridement of left patella on 03/07. She is noting having some diarrhea, with some left knee swelling persistent after debridement . Surgical roxanne are clean and left upper extremity swelling is noted . Crackles in the lungs and is tachycardic Assessment: 04/02:Patient is growing pseudomonas , ESBL klebsiella on sputum culture likely due to hospital acquired pneumonia. possible C diff colitis. As well as an MSSA left knee bursitis that has yet to be treated with appropriate antibiotics. Patient has peripheral arterial disease and right decay and uncontrolled diabetes 04/03: patient is doing better , diarrhea has significantly improved and tolerating antibiotics without any fevers or chills . Patient is a bit drowsy . Patient has some mild angioedema of the tongue . C diff testing is negative 04/04: Patient was seen by Dr Velasco and tolerating diet. Agree with Dr. eVlasco findings . Not having any worsening diarrhea 04/05: having diarrhea with antibiotic therapy , most recent chest xray shows lung bases that are unremarkable. clinically stable and worsening confusion and immunity , possible aspiration 04/06: patient has ongoing diarrhea as potential source of worsening septic picture . Patient was found to be hypoxic and confused yesterday possible related to acute aspiration event and possible mucus plugging as patient also refused chest pt. Plan: - consider bronchoscopy and deeper sputum cultures and BAL culture if patient is to get a bronchoscopy to asses for airway clearance, defer to pulmonology on this - recommend repeating blood culture and urine culture and stool culture - recommend KUB to further evaluate for colitis - would consider broadening out to fetroza to cover multi drug resistant organism if hypoxia persists - would empirically restart Flagyl in the event of possible aspiration with anaerobic being covered by zerbaxa alone - Continue IV vancomycin for MSSA left knee cellulitis - Continue Zerbaxa for hospital acquired pneumonia for at least 7 days and once completed and oral antibiotic for patients septic arthritis is a possibility , can potentially change to oral Bactrim once zerbaxa coarse has been completed tentatively 04/10/25 - no need for additional workup at this time Authorized and Performed by: Katerine Hughes Total critical care time: Approximately 76 minutes Due to a high probability of clinically significant, life threatening deterioration, the patient required my highest level of preparedness to intervene emergently and I personally spent this critical care time directly and personally managing the patient. This critical care time included obtaining a history; examining the patient; pulse oximetry; ordering and review of studies; arranging urgent treatment with development of a management plan; evaluation of patient's response to treatment; frequent reassessment; and, discussions with other providers. This critical care time was performed to assess and manage the high probability of imminent, life-threatening deterioration that could result in multi-organ failure. It was exclusive of separately billable procedures and treating other patients and teaching time. Plan discussed with: Other Dietary Evaluation Review Comments: 1) Esau 1 pk BID 2) Refer Sound Tester on DC 3) Continue current plan of care Expected Outcomes/Goals: Pt will meet >75% estimated needs Fu 3-5 days KATERINE HUGHES MD April 07, 2025 12:38
--- NOTE | 2025-04-07 22:46 | DVHPN2 ---
Progress Note - Dictate Date Seen: April 07, 2025 Medical Necessity Reason Pt with a Central, PICC or Fol: Yes The following are medically ne: Acosta Catheter Reason for acosta catheter: Strict I&O Subjective Patient seen and examined at bedside. Sedated, intubated on mechanical ventilator. Overnight events reviewed. vital signs Vital Sign Date Time Temp Pulse Resp B/P (MAP) Pulse Ox O2 Delivery O2 Flow Rate FiO2 04/07/25 22:12 113/51 04/07/25 20:15 81 18 100 04/07/25 20:00 96.8 96.8 04/07/25 20:00 Mechanical Ventilator+ 40 40 04/07/25 18:30 0 Total Intake and Output 04/06/25 04/06/25 04/07/25 15:00 23:00 07:00 Intake Total 699.0 ml 1111.0 ml 897.50 ml Output Total 900 ml 700 ml Balance 699.0 ml 211.0 ml 197.50 ml medications Current Medications Medications Dose Ordered Sig/John Route Start Time Stop Time Status Last Admin Dose Admin Acetaminophen 650 mg Q6HP PRN PO 02/19/25 13:45 03/09/25 21:36 650 MG Diagnostic Test (Pha) 1 strip ACHS 02/19/25 17:00 04/07/25 21:44 1 STRIP Dextrose 50 ml UD PRN IV 02/19/25 15:45 03/14/25 21:04 50 ML Potassium Chloride 100 ml @ 50 mls/hr Q2H IV 02/19/25 23:15 02/20/25 05:14 Cancel Potassium Chloride 100 ml @ 50 mls/hr Q2H IV 02/20/25 07:15 02/20/25 11:14 UNV Gabapentin 100 mg TID PO 03/02/25 14:00 04/07/25 21:43 100 MG Calcium Acetate 1,334 mg TIDWMEALS PO 03/04/25 12:00 04/06/25 17:30 1,334 MG Ergocalciferol 50,000 unit Q7D PO 03/04/25 11:45 03/25/25 15:05 50,000 UNIT Zirconium Oxide 10 gm TID PO 03/07/25 14:00 Cancel Sodium Bicarbonate 50 ml/ Sodium Chloride 1,050 ml @ 100 mls/hr [id number] IV 03/07/25 11:45 Cancel Pantoprazole Sodium 40 mg BID IV 03/13/25 10:00 04/07/25 21:42 40 MG Albuterol 2.5 mg Q6HR NEB 03/13/25 12:00 04/07/25 18:22 2.5 MG Ipratropium [place] 0.5 mg Q6HR NEB 03/13/25 12:00 04/07/25 18:22 0.5 MG Saccharomyces Boulardii 250 mg DAILY PO 03/14/25 10:00 04/07/25 10:09 250 MG Duloxetine HCl 30 mg DAILY PO 03/22/25 10:00 04/07/25 10:09 30 MG Lamotrigine 25 mg DAILY PO 03/22/25 10:00 04/07/25 10:09 25 MG Atorvastatin Calcium 80 mg HS PO 03/24/25 22:00 04/07/25 21:43 80 MG Enoxaparin Sodium 40 mg DAILY SC 03/25/25 10:00 04/07/25 10:11 40 MG Aspirin 81 mg DAILY NG 03/25/25 10:00 04/07/25 10:09 81 MG Acetylcysteine 100 mg Q6HR NEB 03/26/25 18:00 04/07/25 18:22 100 MG Midazolam HCl 50 ml @ 1 mls/hr Q24H IV 03/27/25 09:15 04/07/25 14:13 5 MLS/HR Insulin Human Regular ACHS SC 03/30/25 22:00 04/06/25 17:52 2 UNITS Guaifenesin 200 mg Q4HP PRN PO 04/01/25 16:00 04/01/25 22:16 200 MG Vancomycin HCl 0 ml @ 0 mls/hr UD IV 04/02/25 18:30 04/14/25 18:30 Ceftolozane/ Tazobactam 1.5 gm/ Dextrose 100 ml @ 100 mls/hr Q8HR IV 04/03/25 14:00 04/10/25 13:59 04/07/25 21:43 100 MLS/HR Nifedipine 90 mg DAILY PO 04/06/25 10:00 Losartan Potassium 25 mg DAILY PO 04/06/25 10:00 Ondansetron HCl 4 mg Q8HP PRN PO 04/05/25 15:30 Fentanyl Citrate 250 ml @ 2.5 mls/hr Q24H IV 04/06/25 11:00 04/07/25 14:27 12.5 MLS/HR Norepinephrine Bitartrate 250 ml @ 3.75 mls/hr Q24H IV 04/06/25 11:00 04/07/25 16:54 3.75 MLS/HR Dextrose 1,000 ml @ 75 mls/hr [id number] IV 04/07/25 07:45 04/07/25 21:42 75 MLS/HR objective Gen.: Patient lying in bed in medical ICU. Sedated, intubated on mechanical ventilator. Head: Normocephalic, atraumatic. Eyes: PERRLA. Ears: Normal external anatomy. Throat: Endotracheal tube and orogastric tube in place. Neck: Supple, trachea midline. Chest: Transmitted breath sounds bilaterally. Decreased air entry bilaterally. No wheezing. Bibasilar crackles. Cardiovascular: Positive S1, positive S2. Regular rate and rhythm. Abdomen: Positive bowel sounds in all 4 quadrants. Soft, nontender, nondistended. : Acosta in place. Normal external genitalia. Rectal: Deferred. Skin: Warm, dry. Intact. Extremities: 2+ radial pulses bilaterally. No lower extremity edema. Neuro: Sedated. laboratory and microbiology Laboratory Tests 04/07/25 05:11 Test 04/07/25 05:11 Range/Units Serum Glucose 128 H 74-106 mg/dL Assessment/Plan Impression: Acute hypoxic respiratory failure On mechanical ventilator S/p cardiac arrest with ROSC Multiple acute/subacute strokes. Altered mental status Acute kidney injury. Hypertension, newly diagnosed. Insulin-dependent diabetes mellitus. Polysubstance use Peripheral vascular disease, s/p right BKA 6 months ago. Sepsis Events: Patient reintubated s/p cardiac arrest yesterday Remains on mechanical ventilator AC mode with RR 18, VT 350, PEEP 5, FIO2 30% Improving FiO2 requirements CXR reviewed, reveals mild pulmonary vascular congestion. Head CT revealed small age-indeterminate infarct in right posterior frontal periventricular white matter, likely subacute to old. Few additional small old lacunar infarcts in bilateral basal ganglia, greater on the right. Sedated on Versed and Fentanyl Patient is hypothermic On pressors for hemodynamic support On Levophed Titrate to keep mean arterial pressure greater than 65 mmHg. Head of bed elevation Aspiration precautions Continue bronchodilators/Mucomyst Continue antibiotics. Follow up cultures On statin Monitor hemoglobin Monitor renal function Monitor electrolytes. Supplement as needed Potassium 5.1 today On IV fluids with D5 + potassium - recommend changing IVF. RBKA, CXR pending. ABG reviewed, notable for acidemia Protonix BID for GI prophylaxis Lovenox for DVT prophylaxis Labs and imaging reviewed. Rest of plan as noted below. Plan: S/p cardiac arrest Intubated, on mechanical ventilator. On AC mode with RR 18, VT 350, PEEP 5, FIO2 40% Titrate FIO2 to keep O2 saturation above 90%. VAP bundle. Daily ABG and CXR while intubated Sedate for ventilator synchrony HOB elevation Aspiration precautions On pressors for hemodynamic support Titrate to keep mean arterial pressure greater than 65 mmHg. Bronchodilators Continue antibiotics. F/u cultures. Accu-Cheks, ISS PRN. Monitor renal function Monitor electrolytes Supplement as needed Continue psych meds Tube feeds for nutritional support Pressors as necessary for hemodynamic support Titrate to keep mean arterial pressure greater than 65 mmHg. GI prophylaxis - Protonix. DVT prophylaxis - Lovenox. Prognosis: Poor given patient's multiple co-morbidities. Condition: Critical Rest of plan per hospitalist and other consultants. A total of 35 minutes of critical care time was spent reviewing the patient record, examining the patient, making a diagnostic and therapeutic plan, discussing this plan with the medical personnel, following up on diagnostic studies and following the patient for clinical stability excluding any and all procedures. At least 50% of this time was spent in direct, [id number] contact. Thank you, FRANCISCO Alanis, for allowing me to participate in this patient's care. Further recommendations will depend on the patient's clinical course. Please do not hesitate to contact me if you have any questions or concerns. This medical document was created using an electronic medical record system with agreement24 [email or web address] dictation system. Although these documentations are being carefully reviewed, there may still be some phonetic and typographical changes. The errors are purely typographical, due to imperfection on the software program, and do not reflect any compromise in the patient's medical care. Dietary Evaluation Review Comments: 1) Esau 1 pk BID 2) Refer Bird Sitter on DC 3) Continue current plan of care Expected Outcomes/Goals: Pt will meet >75% estimated needs Fu 3-5 days Plan discussed with: Other (RN Arcenio) Critical Care Time(min): 35 LARRY HERRERA MD April 07, 2025 22:46
--- NOTE | 2025-04-07 23:18 | DVHPN2 ---
Progress Note - Dictate Date Seen: April 07, 2025 Medical Necessity Reason Pt with a Central, PICC or Fol: Yes The following are medically ne: Acosta Catheter Reason for acosta catheter: Strict I&O Subjective Patient was seen and evaluated in follow up in the ICU. Patient is intubated and sedated on ventialtor. 40% FiO2. Patient is responsive to painful stimuli, she has brainstem reflexes, but no spontaneous extremity movement . HGB 8.5, HCT 26, CO2 18, Superintendent Track 1.23. Chest x-ray shows mild pulmonary vascular congestion and cardiomegaly. vital signs Vital Sign Date Time Temp Pulse Resp B/P (MAP) Pulse Ox O2 Delivery O2 Flow Rate FiO2 04/07/25 22:47 82 20 92/55 (67) 100 30 04/07/25 20:00 96.8 96.8 04/07/25 20:00 Mechanical Ventilator+ 04/07/25 18:30 0 Total Intake and Output 04/06/25 04/06/25 04/07/25 15:00 23:00 07:00 Intake Total 699.0 ml 1111.0 ml 897.50 ml Output Total 900 ml 700 ml Balance 699.0 ml 211.0 ml 197.50 ml medications Current Medications Medications Dose Ordered Sig/John Route Start Time Stop Time Status Last Admin Dose Admin Acetaminophen 650 mg Q6HP PRN PO 02/19/25 13:45 03/09/25 21:36 650 MG Diagnostic Test (Pha) 1 strip ACHS 02/19/25 17:00 04/07/25 21:44 1 STRIP Dextrose 50 ml UD PRN IV 02/19/25 15:45 03/14/25 21:04 50 ML Potassium Chloride 100 ml @ 50 mls/hr Q2H IV 02/19/25 23:15 02/20/25 05:14 Cancel Potassium Chloride 100 ml @ 50 mls/hr Q2H IV 02/20/25 07:15 02/20/25 11:14 UNV Gabapentin 100 mg TID PO 03/02/25 14:00 04/07/25 21:43 100 MG Calcium Acetate 1,334 mg TIDWMEALS PO 03/04/25 12:00 04/06/25 17:30 1,334 MG Ergocalciferol 50,000 unit Q7D PO 03/04/25 11:45 03/25/25 15:05 50,000 UNIT Zirconium Oxide 10 gm TID PO 03/07/25 14:00 Cancel Sodium Bicarbonate 50 ml/ Sodium Chloride 1,050 ml @ 100 mls/hr [id number] IV 03/07/25 11:45 Cancel Pantoprazole Sodium 40 mg BID IV 03/13/25 10:00 04/07/25 21:42 40 MG Albuterol 2.5 mg Q6HR NEB 03/13/25 12:00 04/07/25 18:22 2.5 MG Ipratropium [employer] 0.5 mg Q6HR NEB 03/13/25 12:00 04/07/25 18:22 0.5 MG Saccharomyces Boulardii 250 mg DAILY PO 03/14/25 10:00 04/07/25 10:09 250 MG Duloxetine HCl 30 mg DAILY PO 03/22/25 10:00 04/07/25 10:09 30 MG Lamotrigine 25 mg DAILY PO 03/22/25 10:00 04/07/25 10:09 25 MG Atorvastatin Calcium 80 mg HS PO 03/24/25 22:00 04/07/25 21:43 80 MG Enoxaparin Sodium 40 mg DAILY SC 03/25/25 10:00 04/07/25 10:11 40 MG Aspirin 81 mg DAILY NG 03/25/25 10:00 04/07/25 10:09 81 MG Acetylcysteine 100 mg Q6HR NEB 03/26/25 18:00 04/07/25 18:22 100 MG Midazolam HCl 50 ml @ 1 mls/hr Q24H IV 03/27/25 09:15 04/07/25 14:13 5 MLS/HR Insulin Human Regular ACHS SC 03/30/25 22:00 04/06/25 17:52 2 UNITS Guaifenesin 200 mg Q4HP PRN PO 04/01/25 16:00 04/01/25 22:16 200 MG Vancomycin HCl 0 ml @ 0 mls/hr UD IV 04/02/25 18:30 04/14/25 18:30 Ceftolozane/ Tazobactam 1.5 gm/ Dextrose 100 ml @ 100 mls/hr Q8HR IV 04/03/25 14:00 04/10/25 13:59 04/07/25 21:43 100 MLS/HR Nifedipine 90 mg DAILY PO 04/06/25 10:00 Losartan Potassium 25 mg DAILY PO 04/06/25 10:00 Ondansetron HCl 4 mg Q8HP PRN PO 04/05/25 15:30 Fentanyl Citrate 250 ml @ 2.5 mls/hr Q24H IV 04/06/25 11:00 04/07/25 14:27 12.5 MLS/HR Norepinephrine Bitartrate 250 ml @ 3.75 mls/hr Q24H IV 04/06/25 11:00 04/07/25 16:54 3.75 MLS/HR Dextrose 1,000 ml @ 75 mls/hr [id number] IV 04/07/25 07:45 04/07/25 21:42 75 MLS/HR objective GENERAL: Ill appearing, intubated on ventilator. EYES: PERRL, EOMI. Anicteric. HENT: Moist mucous membranes. LUNGS: Decreased breath sounds. CARDIOVASCULAR: Regular rate and rhythm. ABDOMEN: Soft, non-tender and non-distended. EXTREMITIES: No edema. SKIN: Warm, dry. laboratory and microbiology Laboratory Tests 04/07/25 05:11 Test 04/07/25 05:11 Range/Units Serum Glucose 128 H 74-106 mg/dL Problem List Multiple acute/subacute strokes. Hypokalemia. Acute kidney injury. Hypertension, newly diagnosed. Insulin-dependent diabetes mellitus. Status post right BKA. Dyslipidemia. Polysubstance use disorder. Left lower extremity cellulitis. Peripheral vascular disease status post right [id number] amputation 6 months ago. Sepsis. Diabetic neuropathy. Assessment/Plan Continued all current supportive medical care. Aspirin, Lipitor, Metoprolol. DVT and GI prophylactics. IV Hydralazine for SBP >160. Vasopressors for hemodynamic support. IV antibiotics as ordered. Additional plan as per the hospital course. Critical care time of 45 minutes provided to include time spent evaluation of patient at bedside, when appropriate patient/family education for diagnosis, treatment plan, review of pertinent medical information and discussion of care with specialty providers and PCP. Mechanical ventilator parameters, treatment and adjustments have personally been reviewed by me and treatment plan by returned goods receiving clerk has also been reviewed. Dietary Evaluation Review Comments: 1) Esau 1 pk BID 2) Refer Merchandising Execution Associate on DC 3) Continue current plan of care Expected Outcomes/Goals: Pt will meet >75% estimated needs Fu 3-5 days Plan discussed with: Other YANIRA WINN MD April 07, 2025 23:18
[2025-04-08] VITALS (104 sets, daily range): BP systolic 88–169; BP diastolic 48–96; PULSE 0–96; RESP 13–30; TEMP 96.8–99.2; O2SAT 98–100
[2025-04-08] MEDS: NOREPINEPHRINE 8 MG/250ML KIT 250 ML IV SCH (02:37)
[2025-04-08 06:33] LABS: Base Excess -8.7 mmol/L (-2.0-3.0)
[2025-04-08 06:35] LABS: Eosinophils # (auto) 0.3 10 ^3/uL (0-0.8); Hemoglobin 7.5 g/dL (12.2-16.2); Monocytes # (auto) 0.4 10 ^3/uL (0-1.3); Nucleated Red Blood Cells % 0.2 %
[2025-04-08 06:40] LABS: Basophils # (auto) 0.1 10 ^3/uL (0-0.2); Basophils % (auto) 0.8 % (0.0-2.0); Eosinophils % (auto) 3.8 % (0.0-7.0); Hematocrit 23.1 % (36.0-46.0); Lymphocytes # (auto) 1.5 10 ^3/uL (0.4-5.4); Lymphocytes % (auto) 21.8 % (10.0-50.0); Mean Corpuscular Hemoglobin 28.7 pg (28.0-32.0); Mean Corpuscular Hgb Conc. 32.7 g/dL (32.0-36.0); Mean Corpuscular Volume 87.9 fL (80.0-100.0); Monocytes % (auto) 5.6 % (0.0-12.0); Neutrophils # (auto) 4.8 10 ^3/uL (1.6-8.6); Platelet Count (auto) 346 10^3/uL (140-450); Red Blood Cells 2.62 10^6/uL (4.0-5.20); Red Cell Distribution Width 17.4 % (11.8-14.3)
[2025-04-08 06:51] LABS: Anion Gap 6 (5-15); Potassium 4.8 mmol/L (3.5-5.1); Sodium 136 mmol/L (136-145)
[2025-04-08 06:57] LABS: BUN/Creatinine Ratio 18.9 (10.0-20.0)
[2025-04-08 07:05] LABS: Blood Urea Nitrogen 27 mg/dL (9-23); Calcium 7.7 mg/dL (8.7-10.4); Carbon Dioxide 19 mmol/L (20-31); Chloride 111 mmol/L (98-107); Glucose 120 mg/dL (74-106)
--- NOTE | 2025-04-08 07:15 | DVH ---
EXAM: XR Chest, 1 View CLINICAL INDICATION: line placement TECHNIQUE: Frontal view of the chest. COMPARISON: XY CHEST PORTABLE on DOS: 04/07/25, XY CHEST PORTABLE on DOS: 04/06/25, XY CHEST PORTABLE on DOS: 04/06/25, XY CHEST PORTABLE on DOS: 04/06/25, XY CHEST PORTABLE on DOS: 04/01/25 FINDINGS: LUNGS AND PLEURAL SPACES: Left basilar atelectasis or pneumonia. HEART: Unremarkable. No cardiomegaly. MEDIASTINUM: Unremarkable. Normal mediastinal contour. BONES/JOINTS: Unremarkable. No acute fracture. TUBES, LINES AND DEVICES: Left subclavian central line with distal tip in the mid SVC. No pneumotho rax. The endotracheal tube (ETT) is in satisfactory position. Enteric tube tip in the stomach. OTHER FINDINGS: . . IMPRESSION: Left basilar atelectasis or pneumonia.
[2025-04-08] MEDS ORDERED: Jevity 1.2 Cal/Fiber 1 Liter GT SCH (09:30)
--- NOTE | 2025-04-08 09:33 | DVHPN2 ---
Subjective Denies any symptoms Reviewed: Care Plan, H&P, Labs, Medications, Previous Orders, Radiology, Other (Consultations) Changes from previous H/P or p: No Changes General: Per HPI Objective Vitals Vital Signs Date Time Temp Pulse Resp B/P (MAP) Pulse Ox O2 Delivery O2 Flow Rate FiO2 04/08/25 08:02 82 20 115/78 (90) 100 30 04/08/25 06:00 Mechanical Ventilator+ 0 04/08/25 04:00 97.2 97.2 Intake/Output Intake and Output 04/08/25 07:00 Intake Total 2278.853 ml Output Total 1350 ml Balance 928.853 ml Intake Oral 100 ml IV Total 2118.853 ml Other 60 ml Output Urine Total 700 ml Gastric Drainage Total 650 ml Exam Assess patient will sitting in her wheelchair. General Appearance: Alert, Oriented X3, Cooperative, mild distress HEENT: Atraumatic, PERRLA Lungs: Clear to auscultation, Normal air movement, Other (NC at 2lpm) Cardiovascular: Regular rate, Normal S1, Normal S2 Abdomen: Normal bowel sounds, Soft Genitourinary: No Apparent Abnormalities, Other (Almaraz's) Extremities: Other (Right BKA) Neuro: Cranial nerves 3-12 NL, Other (Intubated and sedated) Skin: Dry, Intact, Wounds (See nurse notes and pictures) Psych/Mental Status: Other (Intubated and sedated) Medications Current Medications Medications Dose Ordered Sig/John Route Start Time Stop Time Status Last Admin Dose Admin Acetaminophen 650 mg Q6HP PRN PO 02/19/25 13:45 03/09/25 21:36 650 MG Diagnostic Test (Pha) 1 strip ACHS 02/19/25 17:00 04/07/25 21:44 1 STRIP Dextrose 50 ml UD PRN IV 02/19/25 15:45 03/14/25 21:04 50 ML Potassium Chloride 100 ml @ 50 mls/hr Q2H IV 02/19/25 23:15 02/20/25 05:14 Cancel Potassium Chloride 100 ml @ 50 mls/hr Q2H IV 02/20/25 07:15 02/20/25 11:14 UNV Gabapentin 100 mg TID PO 03/02/25 14:00 04/08/25 06:03 100 MG Calcium Acetate 1,334 mg TIDWMEALS PO 03/04/25 12:00 04/06/25 17:30 1,334 MG Ergocalciferol 50,000 unit Q7D PO 03/04/25 11:45 03/25/25 15:05 50,000 UNIT Zirconium Oxide 10 gm TID PO 03/07/25 14:00 Cancel Sodium Bicarbonate 50 ml/ Sodium Chloride 1,050 ml @ 100 mls/hr [id number] IV 03/07/25 11:45 Cancel Pantoprazole Sodium 40 mg BID IV 03/13/25 10:00 04/07/25 21:42 40 MG Albuterol 2.5 mg Q6HR NEB 03/13/25 12:00 04/08/25 05:42 2.5 MG Ipratropium [place] 0.5 mg Q6HR NEB 03/13/25 12:00 04/08/25 05:42 0.5 MG Saccharomyces Boulardii 250 mg DAILY PO 03/14/25 10:00 04/07/25 10:09 250 MG Duloxetine HCl 30 mg DAILY PO 03/22/25 10:00 04/07/25 10:09 30 MG Lamotrigine 25 mg DAILY PO 03/22/25 10:00 04/07/25 10:09 25 MG Atorvastatin Calcium 80 mg HS PO 03/24/25 22:00 04/07/25 21:43 80 MG Enoxaparin Sodium 40 mg DAILY SC 03/25/25 10:00 04/07/25 10:11 40 MG Aspirin 81 mg DAILY NG 03/25/25 10:00 04/07/25 10:09 81 MG Acetylcysteine 100 mg Q6HR NEB 03/26/25 18:00 04/08/25 05:42 100 MG Midazolam HCl 50 ml @ 1 mls/hr Q24H IV 03/27/25 09:15 04/08/25 06:03 5 MLS/HR Insulin Human Regular ACHS SC 03/30/25 22:00 04/06/25 17:52 2 UNITS Guaifenesin 200 mg Q4HP PRN PO 04/01/25 16:00 04/01/25 22:16 200 MG Vancomycin HCl 0 ml @ 0 mls/hr UD IV 04/02/25 18:30 04/14/25 18:30 Ceftolozane/ Tazobactam 1.5 gm/ Dextrose 100 ml @ 100 mls/hr Q8HR IV 04/03/25 14:00 04/10/25 13:59 04/08/25 06:03 100 MLS/HR Nifedipine 90 mg DAILY PO 04/06/25 10:00 Losartan Potassium 25 mg DAILY PO 04/06/25 10:00 Ondansetron HCl 4 mg Q8HP PRN PO 04/05/25 15:30 Fentanyl Citrate 250 ml @ 2.5 mls/hr Q24H IV 04/06/25 11:00 04/07/25 14:27 12.5 MLS/HR Dextrose 1,000 ml @ 75 mls/hr [id number] IV 04/07/25 07:45 04/07/25 21:42 75 MLS/HR Norepinephrine Bitartrate 250 ml @ 3.75 mls/hr Q24H IV 04/08/25 02:30 04/08/25 02:37 3.75 MLS/HR Laboratory Results Laboratory Tests 04/08/25 04:53 Chemistry Test 04/08/25 04:53 Calcium Level 7.7 mg/dL (8.7-10.4) L Urinalysis Test 02/19/25 17:27 03/04/25 05:00 Urine Color Colorless (Yellow) Urine Clarity Clear (Clear) Urine pH 6.5 (5.0-9.0) Urine Specific [place] 1.008 (1.001-1.035) Urine Protein 2+ (Negative) H Urine Ketones 1+ (Negative) H Urine Blood 1+ /uL (Negative) H Urine Nitrite Negative (Negative) Urine Bilirubin Negative (Negative) Urine Urobilinogen Normal mg/dL (Negative) Urine Leukocyte Esterase Negative /uL (Negative) Urine RBC 6 /hpf (0 - 4) Urine Microscopic WBC 2 /HPF (0-5) Urine Squamous Epithelial Cells Few /hpf (<5) Urine Bacteria None seen /hpf (None Seen) Urine Glucose 2+ mg/dL (Normal) H Urine Creatinine 25.51 mg/dL (30.0-125.0) L Urine Protein/Creatinine Ratio 14.00 Urine Sodium 80 mmol/L (40-220) Urine Total Protein 357.1 mg/dL (1-14) H Blood Gas Results Test 04/08/25 06:25 Arterial Blood pH 7.275 (7.350-7.450) FiO2 % 30.0 Microbiology Microbiology Date/Time Source Procedure Growth Status 04/06/25 20:35 Blood Blood Culture - Preliminary NO GROWTH AFTER 24 HOURS OF INCUBATION. Resulted 04/06/25 10:20 Sputum Gram Stain - Final Resulted 04/06/25 10:20 Sputum Respiratory Culture - Preliminary Resulted 04/02/25 13:00 Stool Clostridium difficile Toxin Assay - Final Complete 03/06/25 14:37 Knee Left Gram Stain - Final Complete 03/06/25 14:37 Knee Left Anaerobic Culture - Final Complete 03/06/25 14:37 Aerobic Culture - Final Staphylococcus aureus Complete 03/04/25 13:29 Aspirate Gram Stain - Final Complete 03/04/25 13:29 Body Fluid Culture - Final Staphylococcus aureus Complete 02/19/25 17:27 Urine - [place] Urine Culture - Final Complete Labs and/or images reviewed: Labs reviewed by me, Image(s) reviewed by me Assessment/Plan Assessment/Plan Impression: Multiple acute/subacute strokes Left lower extremity cellulitis Rule out left septic knee Hypokalemia Acute kidney injury likely hemodynamically mediated due to vasomotor nephropathy Chronic kidney disease Peripheral vascular disease status post right [id number]-[id number] amputation 6 months ago Poorly controlled type 2 diabetes Sepsis Hypertension Mixed hyperlipidemia Polysubstance use disorder Diabetic neuropathy -? Suicidal ideation -septic bursitis with Staphylococcus aureus -septic shock Angioedema of the tongue -hyponatremia -patient with ESBL and CRE in the sputum Plan: -events: No events overnight. Hemodynamically stable. Plan of care discussed with the patient's mother, Bria regarding assessment and neurological status. Patient will probably need tracheostomy and PEG tube placement if deemed appropriate after weaning sedation. -continue antibiotics per ID -restart tube feeding -vacation sedation -PUD prophylaxis -bronchodilators -continue PPI Repeat labs and chest x-ray in a.m. Critical care time spent with patient discussing and formulating plan of care: 90 minutes. This does not include time spent performing procedures. This medical document was created using an electronic medical record system with FolderBoyation system. Although this document has been carefully reviewed, there may still be some phonetic and typographical errors. These areas are purely typographical due to imperfections of the software programs, and do not reflect any compromise in the patient's medical care. Plan discussed with: Patient, Other (RN) My Orders Orders - JUSTIN BONILLA NP Procedure Category Date Status Time Chest Portable XY 04/08/25 Resulted 04:00 Abg W/ Co-Ox RT 04/08/25 Logged 04:00 Date of Service: April 08, 2025 Billing Provider: JUSTIN BONILLA NP Common Visit Codes: [id number] CARE 30-74 MIN, [id number] CARE-EACH +30MIN JUSTIN BONILLA NP April 08, 2025 09:33
--- NOTE | 2025-04-08 11:03 | DVHPN2 ---
Progress Note - Dictate Date Seen: April 08, 2025 Medical Necessity Reason Pt with a Central, PICC or Fol: Yes The following are medically ne: Acosta Catheter Reason for acosta catheter: Strict I&O Subjective Mr. Kaur is a 54 years old right-handed female with a history of hypertension, diabetes, dyslipidemia, anxiety, GERD, osteo myelitis status post right BKA, she came to the [facility] on 02/19/25 with a chief complaint of general weakness. He was transferred/ICU on 03/13/25 for ALOC, nasal bleeding and intubation Unfortunately, she was coded on 04/06/2025 for 8 minutes, she has been reintubated since I have seen and examined the patient, I have talked to her nurse, she was sedated, intubated, but is responsive to light painful stimuli Tracheostomy today Psychiatry consultation, 02/26/25: 1:1 sitter. Transferred to inpatient psychiatric facility. Cymbalta 30 mg b.i.d. ABG, 03/13/2025: Unremarkable UDS, 02/19/2025: Cannabinoids Plasma alcohol, 02/19/2025: 3 Urinalysis, 02/19, : WBC: 2, urine leukocyte esterase WBC/HB/PLT/MCV, 02/20/2025: 21.9/10.9/398/83.1, 03/13/2025: 11.7/6.5/424/85.4 PT/INR/PTT, 03/13/2025: 10.6/1/38.6 K, 02/19/2025: 1.7, 02/20/2025: 2.1 BUN/CR, 02/20/2025: 33/2.03, 03/13/2025: 51.93 HGB A1c, 06/03/2024: 13.1 Liver function tests, 02/20/2025: Unremarkable TG/HDL/LDL/HDL, 04/11/2024: 180/238/164/43 MAGALIS, 02/21/2025: 1. Technically good study. Sinus rhythm. 2. Left atrial enlargement. 3. Number Valves appear to be structurally normal. 4. Ventricular systolic function is preserved at 60% with normal RV function. 5. Doppler reveals mild TR. No significant mitral or aortic insufficiency. No atrial septal or ventricular septal defects 6. No masses or vegetations discernible. 7. The atrial appendage looks clean, no masses. No atrial or ventricular septal defects as noted. No abnormal shunting. Bubble study was negative 8. The valves appear to be structurally normal. No vegetations or signs of emboli present. Carotid Doppler, 02/20/2025: No hemodynamically significant stenosis noted in the right carotid system. No hemodynamically significant stenosis noted in the left carotid system. Chest X-ray, 03/19/25: 1. Endotracheal tube terminates 4cm from caleb. Other lines and tubes are unchanged in position. 2. Bilateral airspace disease similar to prior study. CT head, : Small age-indeterminate infarct extending from the right jorge radiata into the right basal ganglia. Further evaluation with MRI brain with diffusion-weighted imaging is recommended. CT head, , No acute intracranial abnormality. Multiple subacute bilateral lacunar infarcts as seen on prior MRI. MRI head, 02/19/2025: 1. There are multiple small foci of acute to subacute infarct in the right jorge radiata and right basal ganglia. There are also multiple small acute to subacute infarcts in the left anteromedial frontal lobe and in the left jorge radiata and left basal ganglia. There is no evidence of acute hemorrhage MR head, 03/21/2025: 1. Multiple foci of restricted diffusion involving the left corpus callosum, bilateral basal ganglia and right jorge radiata. The largest area involves the left splenium of the corpus callosum. These likely represent acute to subacute infarcts. There is no evidence of acute hemorrhage. 2. Moderate amount of fluid in the bilateral mastoid air cells MRI left foot, 02/22/25: Moderate dorsal subcutaneous edema. No evidence of osteomyelitis. No drainable fluid collection noted. Moderate myositis. vital signs Vital Sign Date Time Temp Pulse Resp B/P (MAP) Pulse Ox O2 Delivery O2 Flow Rate FiO2 04/08/25 10:19 84 18 118/71 (87) 100 30 04/08/25 10:00 Mechanical Ventilator+ 0 04/08/25 10:00 99.2 99.2 Total Intake and Output 04/07/25 04/07/25 04/08/25 15:00 23:00 07:00 Intake Total 493.85 ml 1066.253 ml 913.125 ml Output Total 750 ml 600 ml Balance 493.85 ml 316.253 ml 313.125 ml medications Current Medications Medications Dose Ordered Sig/Jonh Route Start Time Stop Time Status Last Admin Dose Admin Acetaminophen 650 mg Q6HP PRN PO 02/19/25 13:45 03/09/25 21:36 650 MG Diagnostic Test (Pha) 1 strip ACHS 02/19/25 17:00 04/07/25 21:44 1 STRIP Dextrose 50 ml UD PRN IV 02/19/25 15:45 03/14/25 21:04 50 ML Potassium Chloride 100 ml @ 50 mls/hr Q2H IV 02/19/25 23:15 02/20/25 05:14 Cancel Potassium Chloride 100 ml @ 50 mls/hr Q2H IV 02/20/25 07:15 02/20/25 11:14 UNV Calcium Acetate 1,334 mg TIDWMEALS PO 03/04/25 12:00 04/06/25 17:30 1,334 MG Ergocalciferol 50,000 unit Q7D PO 03/04/25 11:45 03/25/25 15:05 50,000 UNIT Zirconium Oxide 10 gm TID PO 03/07/25 14:00 Cancel Sodium Bicarbonate 50 ml/ Sodium Chloride 1,050 ml @ 100 mls/hr [id number] IV 03/07/25 11:45 Cancel Pantoprazole Sodium 40 mg BID IV 03/13/25 10:00 04/08/25 09:52 40 MG Albuterol 2.5 mg Q6HR NEB 03/13/25 12:00 04/08/25 05:42 2.5 MG Ipratropium [place] 0.5 mg Q6HR NEB 03/13/25 12:00 04/08/25 05:42 0.5 MG Saccharomyces Boulardii 250 mg DAILY PO 03/14/25 10:00 04/08/25 09:52 250 MG Atorvastatin Calcium 80 mg HS PO 03/24/25 22:00 04/07/25 21:43 80 MG Enoxaparin Sodium 40 mg DAILY SC 03/25/25 10:00 04/08/25 09:53 40 MG Aspirin 81 mg DAILY NG 03/25/25 10:00 04/08/25 09:52 81 MG Insulin Human Regular ACHS SC 03/30/25 22:00 04/06/25 17:52 2 UNITS Guaifenesin 200 mg Q4HP PRN PO 04/01/25 16:00 04/01/25 22:16 200 MG Vancomycin HCl 0 ml @ 0 mls/hr UD IV 04/02/25 18:30 04/14/25 18:30 Ceftolozane/ Tazobactam 1.5 gm/ Dextrose 100 ml @ 100 mls/hr Q8HR IV 04/03/25 14:00 04/10/25 13:59 04/08/25 06:03 100 MLS/HR Ondansetron HCl 4 mg Q8HP PRN PO 04/05/25 15:30 Fentanyl Citrate 250 ml @ 2.5 mls/hr Q24H IV 04/06/25 11:00 04/07/25 14:27 12.5 MLS/HR Dextrose 1,000 ml @ 75 mls/hr [id number] IV 04/07/25 07:45 04/07/25 21:42 75 MLS/HR Norepinephrine Bitartrate 250 ml @ 3.75 mls/hr Q24H IV 04/08/25 02:30 04/08/25 02:37 3.75 MLS/HR Enteral Nutritional Formula 1,000 ml 30ML/HR GT 04/08/25 09:30 objective The patient is well-nourished and well-developed with no distress. The patient is intubated MENTAL STATUS: Subjective CRANIAL NERVES: Pupils are equal, round and reactive.There are corneal reflexes and doll's eyes phenomenon. No signs of facial weakness. There are gagging or coughing reflexes SENSATION: No responses to pain stimuli. MOTOR: Normal tone in the upper and lower extremity. Normal muscle bulk. No fasciculations. No spontaneous movement. REFLEXES: Deep tendon reflexes are symmetrical. No pathological reflexes. CEREBELLAR/COORDINATION: Deferred GAIT/STATION: deferred. laboratory and microbiology Laboratory Tests 04/08/25 04:53 Test 04/08/25 04:53 Range/Units Serum Glucose 120 H 74-106 mg/dL Problem List Acute respiratory failure, reintubated on 04/06/2025 Excessive nasal bleeding Come company resolved Metabolic encephalopathy Hypoxic encephalopathy Toxic encephalopathy Left hemiparesis secondary stroke Left homonymous hemianopsia secondary to stroke General weakness Multiple acute/subacute strokes (MRI head: 02/19/2025, 03/21/2025) Status post right BKA Depression Assessment/Plan Monitoring Supportive treatment ICU Stabilize vitals Respiratory support/vent management Oxygen Antibiotics Aspirin 81 mg daily Lipitor 80mg Qd Cymbalta 30 mg b.i.d. DVT prophylaxis/Lovenox Quit tobacco smoking completely Tracheostomy today More recommendation per clinical course This medical document was created using an electronic medical record system with [employer] dictation system. Although this document has been carefully reviewed, there may still be some phonetic and typographical errors. These areas are purely typographical due to imperfections of the software programs, and do not reflect any compromise in the patient's medical care. Prognosis guarded Dietary Evaluation Review Comments: 1) Esau 1 pk BID 2) Refer Inclusion Paraeducator on DC 3) Continue current plan of care Expected Outcomes/Goals: Pt will meet >75% estimated needs Fu 3-5 days Plan discussed with: Other Critical Care Time(min): 30 NEELA RUEDA MD April 08, 2025 11:03
[2025-04-08] MEDS: PROPOFOL 100 ML IV SCH (16:45)
[2025-04-08] MEDS: PROPOFOL 100 ML IV ONE (16:53)
--- NOTE | 2025-04-08 22:35 | DVHPN2 ---
Progress Note - Dictate Date Seen: April 08, 2025 Medical Necessity Reason Pt with a Central, PICC or Fol: Yes The following are medically ne: Acosta Catheter Reason for acosta catheter: Strict I&O Subjective Patient was seen and evaluated in follow up in the ICU. Patient is intubated and sedated on ventilator. 30% FiO2. Patient is responsive to light painful stimuli. Patient will probably need tracheostomy and PEG tube placement if deemed appropriate after weaning sedation. HGB 7.5, HCT 23.1, BUN 27, [place]ir Fisherman 1.43. Chest x-ray shows left basilar atelectasis or pneumonia. vital signs Vital Sign Date Time Temp Pulse Resp B/P (MAP) Pulse Ox O2 Delivery O2 Flow Rate FiO2 04/08/25 22:00 77 18 111/67 (82) 100 30 04/08/25 20:00 Mechanical Ventilator+ 04/08/25 20:00 0 04/08/25 20:00 96.9 96.9 Total Intake and Output 04/07/25 04/07/25 04/08/25 15:00 23:00 07:00 Intake Total 493.85 ml 1066.253 ml 913.125 ml Output Total 750 ml 600 ml Balance 493.85 ml 316.253 ml 313.125 ml medications Current Medications Medications Dose Ordered Sig/John Route Start Time Stop Time Status Last Admin Dose Admin Acetaminophen 650 mg Q6HP PRN PO 02/19/25 13:45 03/09/25 21:36 650 MG Diagnostic Test (Pha) 1 strip ACHS 02/19/25 17:00 04/08/25 16:55 1 STRIP Dextrose 50 ml UD PRN IV 02/19/25 15:45 03/14/25 21:04 50 ML Potassium Chloride 100 ml @ 50 mls/hr Q2H IV 02/19/25 23:15 02/20/25 05:14 Cancel Potassium Chloride 100 ml @ 50 mls/hr Q2H IV 02/20/25 07:15 02/20/25 11:14 UNV Calcium Acetate 1,334 mg TIDWMEALS PO 03/04/25 12:00 04/06/25 17:30 1,334 MG Ergocalciferol 50,000 unit Q7D PO 03/04/25 11:45 03/25/25 15:05 50,000 UNIT Zirconium Oxide 10 gm TID PO 03/07/25 14:00 Cancel Sodium Bicarbonate 50 ml/ Sodium Chloride 1,050 ml @ 100 mls/hr [id number] IV 03/07/25 11:45 Cancel Pantoprazole Sodium 40 mg BID IV 03/13/25 10:00 04/08/25 09:52 40 MG Albuterol 2.5 mg Q6HR NEB 03/13/25 12:00 04/08/25 19:13 2.5 MG Ipratropium [place] 0.5 mg Q6HR NEB 03/13/25 12:00 04/08/25 19:13 0.5 MG Saccharomyces Boulardii 250 mg DAILY PO 03/14/25 10:00 04/08/25 09:52 250 MG Atorvastatin Calcium 80 mg HS PO 03/24/25 22:00 04/07/25 21:43 80 MG Enoxaparin Sodium 40 mg DAILY SC 03/25/25 10:00 04/08/25 09:53 40 MG Aspirin 81 mg DAILY NG 03/25/25 10:00 04/08/25 09:52 81 MG Insulin Human Regular ACHS SC 03/30/25 22:00 04/08/25 16:58 2 UNITS Guaifenesin 200 mg Q4HP PRN PO 04/01/25 16:00 04/01/25 22:16 200 MG Vancomycin HCl 0 ml @ 0 mls/hr UD IV 04/02/25 18:30 04/14/25 18:30 Ceftolozane/ Tazobactam 1.5 gm/ Dextrose 100 ml @ 100 mls/hr Q8HR IV 04/03/25 14:00 04/10/25 13:59 04/08/25 14:00 100 MLS/HR Ondansetron HCl 4 mg Q8HP PRN PO 04/05/25 15:30 Fentanyl Citrate 250 ml @ 2.5 mls/hr Q24H IV 04/06/25 11:00 04/07/25 14:27 12.5 MLS/HR Dextrose 1,000 ml @ 75 mls/hr [id number] IV 04/07/25 07:45 04/08/25 10:25 75 MLS/HR Norepinephrine Bitartrate 250 ml @ 3.75 mls/hr Q24H IV 04/08/25 02:30 04/08/25 02:37 3.75 MLS/HR Enteral Nutritional Formula 1,000 ml 30ML/HR GT 04/08/25 09:30 Propofol 100 ml @ 2.232 mls/ hr Q24H IV 04/08/25 16:45 04/08/25 16:45 2.232 MLS/HR objective GENERAL: Ill appearing, intubated on ventilator. EYES: PERRL, EOMI. Anicteric. HENT: Moist mucous membranes. LUNGS: Decreased breath sounds. CARDIOVASCULAR: Regular rate and rhythm. ABDOMEN: Soft, non-tender and non-distended. EXTREMITIES: No edema. SKIN: Warm, dry. laboratory and microbiology Laboratory Tests 04/08/25 04:53 Test 04/08/25 04:53 Range/Units Serum Glucose 120 H 74-106 mg/dL Problem List Multiple acute/subacute strokes. Hypokalemia. Acute kidney injury. Hypertension, newly diagnosed. Insulin-dependent diabetes mellitus. Status post right BKA. Dyslipidemia. Polysubstance use disorder. Left lower extremity cellulitis. Peripheral vascular disease status post right [id number] amputation 6 months ago. Sepsis. Diabetic neuropathy. Assessment/Plan Continued all current supportive medical care. Aspirin, Lipitor, Metoprolol. IV antibiotics as ordered. DVT and GI prophylactics. Losartan, Nifedipine. Vasopressors for hemodynamic support. Additional plan as per the hospital course. Critical care time of 45 minutes provided to include time spent evaluation of patient at bedside, when appropriate patient/family education for diagnosis, treatment plan, review of pertinent medical information and discussion of care with specialty providers and PCP. Mechanical ventilator parameters, treatment and adjustments have personally been reviewed by me and treatment plan by investment broker has also been reviewed. Dietary Evaluation Review Comments: 1) Esau 1 pk BID 2) Refer Hydraulic Engineer on DC 3) Continue current plan of care Expected Outcomes/Goals: Pt will meet >75% estimated needs Fu 3-5 days Plan discussed with: Other YANIRA WINN MD April 08, 2025 22:35
--- NOTE | 2025-04-08 22:37 | DVHPN2 ---
Consult Progress Note Date Seen: April 07, 2025 Subjective Patient reports: Other (coming down off pressers , on assist control and has some edema in upper and lower edema. FIO2 30% ) Objective vital signs Vital Sign Date Time Temp Pulse Resp B/P (MAP) Pulse Ox O2 Delivery O2 Flow Rate FiO2 04/08/25 22:00 77 18 111/67 (82) 100 30 04/08/25 20:00 Mechanical Ventilator+ 04/08/25 20:00 0 04/08/25 20:00 96.9 96.9 Total Intake and Output 04/07/25 04/07/25 04/08/25 15:00 23:00 07:00 Intake Total 493.85 ml 1066.253 ml 913.125 ml Output Total 750 ml 600 ml Balance 493.85 ml 316.253 ml 313.125 ml medications Current Medications Medications Dose Ordered Sig/John Route Start Time Stop Time Status Last Admin Dose Admin Acetaminophen 650 mg Q6HP PRN PO 02/19/25 13:45 03/09/25 21:36 650 MG Diagnostic Test (Pha) 1 strip ACHS 02/19/25 17:00 04/08/25 16:55 1 STRIP Dextrose 50 ml UD PRN IV 02/19/25 15:45 03/14/25 21:04 50 ML Potassium Chloride 100 ml @ 50 mls/hr Q2H IV 02/19/25 23:15 02/20/25 05:14 Cancel Potassium Chloride 100 ml @ 50 mls/hr Q2H IV 02/20/25 07:15 02/20/25 11:14 UNV Calcium Acetate 1,334 mg TIDWMEALS PO 03/04/25 12:00 04/06/25 17:30 1,334 MG Ergocalciferol 50,000 unit Q7D PO 03/04/25 11:45 03/25/25 15:05 50,000 UNIT Zirconium Oxide 10 gm TID PO 03/07/25 14:00 Cancel Sodium Bicarbonate 50 ml/ Sodium Chloride 1,050 ml @ 100 mls/hr [id number] IV 03/07/25 11:45 Cancel Pantoprazole Sodium 40 mg BID IV 03/13/25 10:00 04/08/25 09:52 40 MG Albuterol 2.5 mg Q6HR NEB 03/13/25 12:00 04/08/25 19:13 2.5 MG Ipratropium [place] 0.5 mg Q6HR NEB 03/13/25 12:00 04/08/25 19:13 0.5 MG Saccharomyces Boulardii 250 mg DAILY PO 03/14/25 10:00 04/08/25 09:52 250 MG Atorvastatin Calcium 80 mg HS PO 03/24/25 22:00 04/07/25 21:43 80 MG Enoxaparin Sodium 40 mg DAILY SC 03/25/25 10:00 04/08/25 09:53 40 MG Aspirin 81 mg DAILY NG 03/25/25 10:00 04/08/25 09:52 81 MG Insulin Human Regular ACHS SC 03/30/25 22:00 04/08/25 16:58 2 UNITS Guaifenesin 200 mg Q4HP PRN PO 04/01/25 16:00 04/01/25 22:16 200 MG Vancomycin HCl 0 ml @ 0 mls/hr UD IV 04/02/25 18:30 04/14/25 18:30 Ceftolozane/ Tazobactam 1.5 gm/ Dextrose 100 ml @ 100 mls/hr Q8HR IV 04/03/25 14:00 04/10/25 13:59 04/08/25 14:00 100 MLS/HR Ondansetron HCl 4 mg Q8HP PRN PO 04/05/25 15:30 Fentanyl Citrate 250 ml @ 2.5 mls/hr Q24H IV 04/06/25 11:00 04/07/25 14:27 12.5 MLS/HR Dextrose 1,000 ml @ 75 mls/hr [id number] IV 04/07/25 07:45 04/08/25 10:25 75 MLS/HR Norepinephrine Bitartrate 250 ml @ 3.75 mls/hr Q24H IV 04/08/25 02:30 04/08/25 02:37 3.75 MLS/HR Enteral Nutritional Formula 1,000 ml 30ML/HR GT 04/08/25 09:30 Propofol 100 ml @ 2.232 mls/ hr Q24H IV 04/08/25 16:45 04/08/25 16:45 2.232 MLS/HR laboratory and microbiology Laboratory Tests 04/08/25 04:53 Test 04/08/25 04:53 Range/Units Serum Glucose 120 H 74-106 mg/dL Problem List/Assessment/Plan Problems(with codes): (1) Intractable vomiting (2) Acute abdominal pain (3) Uncontrolled diabetes mellitus (4) UTI (urinary tract infection) (5) Sepsis (6) TATIANNA (acute kidney injury) (7) Substance abuse (8) Intractable abdominal pain Problem List/Assessment/Plan Pneumonia ESBL Klebsiella, Carbapenemic resistant Pseudomonas positive sputum culture , possible due to ventilator associated pneumonia Sepsis probably due to above Left patellar bursitis, I&D w bursectomy performed on 03/07/25 Left knee culture growing MSSA Left foot ulcer, dorsal aspect Multiple acute-subacute strokes Ruled out C diff colitis Hypokalemia TATIANNA on CKD Peripheral arterial disease s/p R BKA 6 months ago Type 2 diabetes, uncontrolled Diabetic neuropathy Angioedema of the tongue Patient is a 64 year old female with a past medical history of diabetes, left foot ulcer , hypertension , hyperlipidemia , anxiety , peripheral arterial disease , depression , presents with left sided weakness and mild dysarthria . Had a brain MRI revealing multiple small falsi of acute to subacute infarcts in the right coronary radiata and right basal ganglia. Underwent MAGALIS which showed no masses or vegetation . Bubble study was negative , valve restriction is normal . Patient was intubated on 03/13 and a rapid was called . Intubated due to airway protection and excavated on 03/26. but then shortly reintubated due to possible right lower lobe aspiration.Is now on 2 liters nasal canula and has left knee swelling ,erythema , cultures were growing MSSA , however on Clindamycin and irrigation and debridement of left patella on 03/07. She is noting having some diarrhea, with some left knee swelling persistent after debridement . Surgical roxanne are clean and left upper extremity swelling is noted . Crackles in the lungs and is tachycardic Assessment: 04/02:Patient is growing pseudomonas , ESBL klebsiella on sputum culture likely due to hospital acquired pneumonia. possible C diff colitis. As well as an MSSA left knee bursitis that has yet to be treated with appropriate antibiotics. Patient has peripheral arterial disease and right decay and uncontrolled diabetes 04/03: patient is doing better , diarrhea has significantly improved and tolerating antibiotics without any fevers or chills . Patient is a bit drowsy . Patient has some mild angioedema of the tongue . C diff testing is negative 04/04: Patient was seen by Dr Velasco and tolerating diet. Agree with Dr. Velasco findings . Not having any worsening diarrhea 04/05: having diarrhea with antibiotic therapy , most recent chest xray shows lung bases that are unremarkable. clinically stable and worsening confusion and immunity , possible aspiration 04/06: patient has ongoing diarrhea as potential source of worsening septic picture . Patient was found to be hypoxic and confused yesterday possible related to acute aspiration event and possible mucus plugging as patient also refused chest pt. 04/07: presser needs are coming down , suspect aspiration event Plan: - follow up on new culture data - consider bronchoscopy and deeper sputum cultures and BAL culture if patient is to get a bronchoscopy to asses for airway clearance, defer to pulmonology on this - recommend repeating blood culture and urine culture and stool culture - recommend KUB to further evaluate for colitis - would consider broadening out to fetroza to cover multi drug resistant organism if hypoxia persists - would empirically restart Flagyl in the event of possible aspiration with anaerobic being covered by zerbaxa alone - Continue IV vancomycin for MSSA left knee cellulitis - Continue Zerbaxa for hospital acquired pneumonia for at least 7 days and once completed and oral antibiotic for patients septic arthritis is a possibility , can potentially change to oral Bactrim once zerbaxa coarse has been completed tentatively 04/10/25 - no need for additional workup at this time Authorized and Performed by: Katerine Hughes Total critical care time: Approximately 76 minutes Due to a high probability of clinically significant, life threatening deterioration, the patient required my highest level of preparedness to intervene emergently and I personally spent this critical care time directly and personally managing the patient. This critical care time included obtaining a history; examining the patient; pulse oximetry; ordering and review of studies; arranging urgent treatment with development of a management plan; evaluation of patient's response to treatment; frequent reassessment; and, discussions with other providers. This critical care time was performed to assess and manage the high probability of imminent, life-threatening deterioration that could result in multi-organ failure. It was exclusive of separately billable procedures and treating other patients and teaching time. Plan discussed with: Other Dietary Evaluation Review Comments: 1) Esau 1 pk BID 2) Refer Supervisor Inspection Department on DC 3) Continue current plan of care Expected Outcomes/Goals: Pt will meet >75% estimated needs Fu 3-5 days KATERINE HUGHES MD April 08, 2025 22:37
--- NOTE | 2025-04-08 22:38 | DVHPN2 ---
Consult Progress Note Date Seen: April 08, 2025 Subjective Patient reports: Other (coming down on pressers , almost off and FIO2 30% , remaisn sedated and responds to sternal rub ) Objective vital signs Vital Sign Date Time Temp Pulse Resp B/P (MAP) Pulse Ox O2 Delivery O2 Flow Rate FiO2 04/08/25 22:00 77 18 111/67 (82) 100 30 04/08/25 20:00 Mechanical Ventilator+ 04/08/25 20:00 0 04/08/25 20:00 96.9 96.9 Total Intake and Output 04/07/25 04/07/25 04/08/25 15:00 23:00 07:00 Intake Total 493.85 ml 1066.253 ml 913.125 ml Output Total 750 ml 600 ml Balance 493.85 ml 316.253 ml 313.125 ml medications Current Medications Medications Dose Ordered Sig/John Route Start Time Stop Time Status Last Admin Dose Admin Acetaminophen 650 mg Q6HP PRN PO 02/19/25 13:45 03/09/25 21:36 650 MG Diagnostic Test (Pha) 1 strip ACHS 02/19/25 17:00 04/08/25 16:55 1 STRIP Dextrose 50 ml UD PRN IV 02/19/25 15:45 03/14/25 21:04 50 ML Potassium Chloride 100 ml @ 50 mls/hr Q2H IV 02/19/25 23:15 02/20/25 05:14 Cancel Potassium Chloride 100 ml @ 50 mls/hr Q2H IV 02/20/25 07:15 02/20/25 11:14 UNV Calcium Acetate 1,334 mg TIDWMEALS PO 03/04/25 12:00 04/06/25 17:30 1,334 MG Ergocalciferol 50,000 unit Q7D PO 03/04/25 11:45 03/25/25 15:05 50,000 UNIT Zirconium Oxide 10 gm TID PO 03/07/25 14:00 Cancel Sodium Bicarbonate 50 ml/ Sodium Chloride 1,050 ml @ 100 mls/hr [id number] IV 03/07/25 11:45 Cancel Pantoprazole Sodium 40 mg BID IV 03/13/25 10:00 04/08/25 09:52 40 MG Albuterol 2.5 mg Q6HR NEB 03/13/25 12:00 04/08/25 19:13 2.5 MG Ipratropium [place] 0.5 mg Q6HR NEB 03/13/25 12:00 04/08/25 19:13 0.5 MG Saccharomyces Boulardii 250 mg DAILY PO 03/14/25 10:00 04/08/25 09:52 250 MG Atorvastatin Calcium 80 mg HS PO 03/24/25 22:00 04/07/25 21:43 80 MG Enoxaparin Sodium 40 mg DAILY SC 03/25/25 10:00 04/08/25 09:53 40 MG Aspirin 81 mg DAILY NG 03/25/25 10:00 04/08/25 09:52 81 MG Insulin Human Regular ACHS SC 03/30/25 22:00 04/08/25 16:58 2 UNITS Guaifenesin 200 mg Q4HP PRN PO 04/01/25 16:00 04/01/25 22:16 200 MG Vancomycin HCl 0 ml @ 0 mls/hr UD IV 04/02/25 18:30 04/14/25 18:30 Ceftolozane/ Tazobactam 1.5 gm/ Dextrose 100 ml @ 100 mls/hr Q8HR IV 04/03/25 14:00 04/10/25 13:59 04/08/25 14:00 100 MLS/HR Ondansetron HCl 4 mg Q8HP PRN PO 04/05/25 15:30 Fentanyl Citrate 250 ml @ 2.5 mls/hr Q24H IV 04/06/25 11:00 04/07/25 14:27 12.5 MLS/HR Dextrose 1,000 ml @ 75 mls/hr [id number] IV 04/07/25 07:45 04/08/25 10:25 75 MLS/HR Norepinephrine Bitartrate 250 ml @ 3.75 mls/hr Q24H IV 04/08/25 02:30 04/08/25 02:37 3.75 MLS/HR Enteral Nutritional Formula 1,000 ml 30ML/HR GT 04/08/25 09:30 Propofol 100 ml @ 2.232 mls/ hr Q24H IV 04/08/25 16:45 04/08/25 16:45 2.232 MLS/HR laboratory and microbiology Laboratory Tests 04/08/25 04:53 Test 04/08/25 04:53 Range/Units Serum Glucose 120 H 74-106 mg/dL Problem List/Assessment/Plan Problems(with codes): (1) Intractable vomiting (2) Acute abdominal pain (3) Uncontrolled diabetes mellitus (4) UTI (urinary tract infection) (5) Sepsis (6) TATIANNA (acute kidney injury) (7) Substance abuse Problem List/Assessment/Plan Pneumonia ESBL Klebsiella, Carbapenemic resistant Pseudomonas positive sputum culture , possible due to ventilator associated pneumonia Sepsis probably due to above Left patellar bursitis, I&D w bursectomy performed on 03/07/25 Left knee culture growing MSSA Left foot ulcer, dorsal aspect Multiple acute-subacute strokes Ruled out C diff colitis Hypokalemia TATIANNA on CKD Peripheral arterial disease s/p R BKA 6 months ago Type 2 diabetes, uncontrolled Diabetic neuropathy Angioedema of the tongue Patient is a 64 year old female with a past medical history of diabetes, left foot ulcer , hypertension , hyperlipidemia , anxiety , peripheral arterial disease , depression , presents with left sided weakness and mild dysarthria . Had a brain MRI revealing multiple small falsi of acute to subacute infarcts in the right coronary radiata and right basal ganglia. Underwent MAGALIS which showed no masses or vegetation . Bubble study was negative , valve restriction is normal . Patient was intubated on 03/13 and a rapid was called . Intubated due to airway protection and excavated on 03/26. but then shortly reintubated due to possible right lower lobe aspiration.Is now on 2 liters nasal canula and has left knee swelling ,erythema , cultures were growing MSSA , however on Clindamycin and irrigation and debridement of left patella on 03/07. She is noting having some diarrhea, with some left knee swelling persistent after debridement . Surgical roxanne are clean and left upper extremity swelling is noted . Crackles in the lungs and is tachycardic Assessment: 04/02:Patient is growing pseudomonas , ESBL klebsiella on sputum culture likely due to hospital acquired pneumonia. possible C diff colitis. As well as an MSSA left knee bursitis that has yet to be treated with appropriate antibiotics. Patient has peripheral arterial disease and right decay and uncontrolled diabetes 04/03: patient is doing better , diarrhea has significantly improved and tolerating antibiotics without any fevers or chills . Patient is a bit drowsy . Patient has some mild angioedema of the tongue . C diff testing is negative 04/04: Patient was seen by Dr Velasco and tolerating diet. Agree with Dr. Velasco findings . Not having any worsening diarrhea 04/05: having diarrhea with antibiotic therapy , most recent chest xray shows lung bases that are unremarkable. clinically stable and worsening confusion and immunity , possible aspiration 04/06: patient has ongoing diarrhea as potential source of worsening septic picture . Patient was found to be hypoxic and confused yesterday possible related to acute aspiration event and possible mucus plugging as patient also refused chest pt. 04/07: presser needs are coming down , suspect aspiration event 04/08: required blood transfusion for hemoglobin 6.9 , unclear if this is due to a real bleed and will continue to monitor for signs of bleeding . Chest xray shows cardiomegaly with mild signs of congestion . Head CT shows right posterior frontal periventricular white matter disease , likely subacute to few small old infacts bilateral basal gangular thats greater on the right side. Cultures are currently with moderate gram negative rods in the sputum and blood cultures are no growth to date Plan: - consider bronchoscopy and deeper sputum cultures and BAL culture if patient is to get a bronchoscopy to asses for airway clearance, defer to pulmonology on this - recommend repeating blood culture and urine culture and stool culture - recommend KUB to further evaluate for colitis - would consider broadening out to fetroza to cover multi drug resistant organism if hypoxia persists - would empirically restart Flagyl in the event of possible aspiration with anaerobic being covered by zerbaxa alone - Continue IV vancomycin for MSSA left knee cellulitis - Continue Zerbaxa for hospital acquired pneumonia for at least 7 days and once completed and oral antibiotic for patients septic arthritis is a possibility , can potentially change to oral Bactrim once zerbaxa coarse has been completed tentatively 04/10/25 - no need for additional workup at this time Authorized and Performed by: Katerine Hughes Total critical care time: Approximately 76 minutes Due to a high probability of clinically significant, life threatening deterioration, the patient required my highest level of preparedness to intervene emergently and I personally spent this critical care time directly and personally managing the patient. This critical care time included obtaining a history; examining the patient; pulse oximetry; ordering and review of studies; arranging urgent treatment with development of a management plan; evaluation of patient's response to treatment; frequent reassessment; and, discussions with other providers. This critical care time was performed to assess and manage the high probability of imminent, life-threatening deterioration that could result in multi-organ failure. It was exclusive of separately billable procedures and treating other patients and teaching time. Plan discussed with: Other Dietary Evaluation Review Comments: 1) Esau 1 pk BID 2) Refer Director Social Service on DC 3) Continue current plan of care Expected Outcomes/Goals: Pt will meet >75% estimated needs Fu 3-5 days KATERINE HUGHES MD April 08, 2025 22:38
--- NOTE | 2025-04-08 23:27 | DVHPN2 ---
Progress Note - Dictate Date Seen: April 08, 2025 Medical Necessity Reason Pt with a Central, PICC or Fol: Yes The following are medically ne: Acosta Catheter Reason for acosta catheter: Strict I&O Subjective Patient seen and examined at bedside. Sedated, intubated on mechanical ventilator. Overnight events reviewed. vital signs Vital Sign Date Time Temp Pulse Resp B/P (MAP) Pulse Ox O2 Delivery O2 Flow Rate FiO2 04/08/25 22:00 77 18 111/67 (82) 100 30 04/08/25 20:00 Mechanical Ventilator+ 04/08/25 20:00 0 04/08/25 20:00 96.9 96.9 Total Intake and Output 04/07/25 04/07/25 04/08/25 15:00 23:00 07:00 Intake Total 493.85 ml 1066.253 ml 913.125 ml Output Total 750 ml 600 ml Balance 493.85 ml 316.253 ml 313.125 ml medications Current Medications Medications Dose Ordered Sig/John Route Start Time Stop Time Status Last Admin Dose Admin Acetaminophen 650 mg Q6HP PRN PO 02/19/25 13:45 03/09/25 21:36 650 MG Diagnostic Test (Pha) 1 strip ACHS 02/19/25 17:00 04/08/25 22:00 1 STRIP Dextrose 50 ml UD PRN IV 02/19/25 15:45 03/14/25 21:04 50 ML Potassium Chloride 100 ml @ 50 mls/hr Q2H IV 02/19/25 23:15 02/20/25 05:14 Cancel Potassium Chloride 100 ml @ 50 mls/hr Q2H IV 02/20/25 07:15 02/20/25 11:14 UNV Calcium Acetate 1,334 mg TIDWMEALS PO 03/04/25 12:00 04/06/25 17:30 1,334 MG Ergocalciferol 50,000 unit Q7D PO 03/04/25 11:45 03/25/25 15:05 50,000 UNIT Zirconium Oxide 10 gm TID PO 03/07/25 14:00 Cancel Sodium Bicarbonate 50 ml/ Sodium Chloride 1,050 ml @ 100 mls/hr [id number] IV 03/07/25 11:45 Cancel Pantoprazole Sodium 40 mg BID IV 03/13/25 10:00 04/08/25 22:35 40 MG Albuterol 2.5 mg Q6HR NEB 03/13/25 12:00 04/08/25 19:13 2.5 MG Ipratropium [place] 0.5 mg Q6HR NEB 03/13/25 12:00 04/08/25 19:13 0.5 MG Saccharomyces Boulardii 250 mg DAILY PO 03/14/25 10:00 04/08/25 09:52 250 MG Atorvastatin Calcium 80 mg HS PO 03/24/25 22:00 04/08/25 22:35 80 MG Enoxaparin Sodium 40 mg DAILY SC 03/25/25 10:00 04/08/25 09:53 40 MG Aspirin 81 mg DAILY NG 03/25/25 10:00 04/08/25 09:52 81 MG Insulin Human Regular ACHS SC 03/30/25 22:00 04/08/25 22:41 2 UNITS Guaifenesin 200 mg Q4HP PRN PO 04/01/25 16:00 04/01/25 22:16 200 MG Vancomycin HCl 0 ml @ 0 mls/hr UD IV 04/02/25 18:30 04/14/25 18:30 Ceftolozane/ Tazobactam 1.5 gm/ Dextrose 100 ml @ 100 mls/hr Q8HR IV 04/03/25 14:00 04/10/25 13:59 04/08/25 22:35 100 MLS/HR Ondansetron HCl 4 mg Q8HP PRN PO 04/05/25 15:30 Fentanyl Citrate 250 ml @ 2.5 mls/hr Q24H IV 04/06/25 11:00 04/07/25 14:27 12.5 MLS/HR Dextrose 1,000 ml @ 75 mls/hr [id number] IV 04/07/25 07:45 04/08/25 10:25 75 MLS/HR Norepinephrine Bitartrate 250 ml @ 3.75 mls/hr Q24H IV 04/08/25 02:30 04/08/25 02:37 3.75 MLS/HR Enteral Nutritional Formula 1,000 ml 30ML/HR GT 04/08/25 09:30 Propofol 100 ml @ 2.232 mls/ hr Q24H IV 04/08/25 16:45 04/08/25 23:11 11.16 MLS/HR objective Gen.: Patient lying in bed in medical ICU. Sedated, intubated on mechanical ventilator. Head: Normocephalic, atraumatic. Eyes: PERRLA. Ears: Normal external anatomy. Throat: Endotracheal tube and orogastric tube in place. Neck: Supple, trachea midline. Chest: Transmitted breath sounds bilaterally. Decreased air entry bilaterally. No wheezing. Bibasilar crackles. Cardiovascular: Positive S1, positive S2. Regular rate and rhythm. Abdomen: Positive bowel sounds in all 4 quadrants. Soft, nontender, nondistended. : Acosta in place. Normal external genitalia. Rectal: Deferred. Skin: Warm, dry. Intact. Extremities: 2+ radial pulses bilaterally. No lower extremity edema. Right BKA. Neuro: Sedated. laboratory and microbiology Laboratory Tests 04/08/25 04:53 Test 04/08/25 04:53 Range/Units Serum Glucose 120 H 74-106 mg/dL Assessment/Plan Impression: Acute hypoxic respiratory failure On mechanical ventilator S/p cardiac arrest with ROSC Multiple acute/subacute strokes. Altered mental status Acute kidney injury. Hypertension, newly diagnosed. Insulin-dependent diabetes mellitus. Polysubstance use Peripheral vascular disease, s/p right BKA 6 months ago. Sepsis Events: Remains on mechanical ventilator AC mode with RR 18, VT 350 -->400, PEEP 5, FIO2 30% CXR reviewed, reveals mild left basilar atelectasis or pneumonia. Sedated on Propofol and Fentanyl Sedation vacation in AM. Off pressors today, monitor hemodynamics Head of bed elevation Aspiration precautions Continue bronchodilators/Mucomyst Continue antibiotics. Follow up cultures On statin Tube feeds for nutritional support Monitor hemoglobin Monitor renal function Monitor electrolytes. Supplement as needed Potassium at goal ABG reviewed, notable for acidemia Protonix BID for GI prophylaxis Lovenox for DVT prophylaxis Labs and imaging reviewed. Rest of plan as noted below. Plan: S/p cardiac arrest Intubated, on mechanical ventilator. AC mode with RR 18, VT 400, PEEP 5, FIO2 30% Titrate FIO2 to keep O2 saturation above 90%. VAP bundle. Daily ABG and CXR while intubated Sedate for ventilator synchrony HOB elevation Aspiration precautions Pressors as necessary for hemodynamic support Titrate to keep mean arterial pressure greater than 65 mmHg. Bronchodilators Continue antibiotics. F/u cultures. Accu-Cheks, ISS PRN. Monitor renal function Monitor electrolytes Supplement as needed Continue psych meds Tube feeds for nutritional support Pressors as necessary for hemodynamic support Titrate to keep mean arterial pressure greater than 65 mmHg. GI prophylaxis - Protonix. DVT prophylaxis - Lovenox. Prognosis: Poor given patient's multiple co-morbidities. Condition: Critical Rest of plan per hospitalist and other consultants. A total of 35 minutes of critical care time was spent reviewing the patient record, examining the patient, making a diagnostic and therapeutic plan, discussing this plan with the medical personnel, following up on diagnostic studies and following the patient for clinical stability excluding any and all procedures. At least 50% of this time was spent in direct, [id number] contact. Thank you, FRANCISCO Alanis, for allowing me to participate in this patient's care. Further recommendations will depend on the patient's clinical course. Please do not hesitate to contact me if you have any questions or concerns. This medical document was created using an electronic medical record system with [employer] computerized dictation system. Although these documentations are being carefully reviewed, there may still be some phonetic and typographical changes. The errors are purely typographical, due to imperfection on the software program, and do not reflect any compromise in the patient's medical care. Dietary Evaluation Review Comments: 1) Esau 1 pk BID 2) Refer Train Driver on DC 3) Continue current plan of care Expected Outcomes/Goals: Pt will meet >75% estimated needs Fu 3-5 days Plan discussed with: Other (ASHLEY Rg) Critical Care Time(min): 35 LARRY HERRERA MD April 08, 2025 23:27
[2025-04-09] VITALS (109 sets, daily range): BP systolic 90–145; BP diastolic 51–80; PULSE 67–93; RESP 12–26; TEMP 95.2–99; O2SAT 96–100
--- NOTE | 2025-04-09 05:15 | DVH ---
EXAM: XR Chest, 1 View CLINICAL INDICATION: Intubated TECHNIQUE: Frontal view of the chest. COMPARISON: XY CHEST PORTABLE on DOS: 04/08/25, XY CHEST PORTABLE on DOS: 04/07/25, XY CHEST PORTABLE on DOS: 04/06/25, XY CHEST PORTABLE on DOS: 04/06/25, XY CHEST PORTABLE on DOS: 04/06/25 FINDINGS: LUNGS AND PLEURAL SPACES: See below. HEART: Cardiomegaly with mild congestion. MEDIASTINUM: Unremarkable. Normal mediastinal contour. BONES/JOINTS: Unremarkable. No acute fracture. TUBES, LINES AND DEVICES: The endotracheal tube (ETT) is in satisfactory position. Left internal j ugular central venous catheter tip in the superior vena cava. OTHER FINDINGS: . . IMPRESSION: Cardiomegaly with mild congestion.
[2025-04-09 05:31] LABS: Basophils # (auto) 0.1 10 ^3/uL (0-0.2); Basophils % (auto) 0.9 % (0.0-2.0); Hematocrit 20.4 % (36.0-46.0); Lymphocytes # (auto) 1.5 10 ^3/uL (0.4-5.4); Monocytes # (auto) 0.4 10 ^3/uL (0-1.3); Neutrophils # (auto) 3.8 10 ^3/uL (1.6-8.6); Platelet Count (auto) 298 10^3/uL (140-450); Red Cell Distribution Width 17.3 % (11.8-14.3)
[2025-04-09 05:37] LABS: Eosinophils # (auto) 0.2 10 ^3/uL (0-0.8); Eosinophils % (auto) 4.1 % (0.0-7.0); Lymphocytes % (auto) 24.4 % (10.0-50.0); Mean Corpuscular Hemoglobin 28.5 pg (28.0-32.0); Mean Corpuscular Hgb Conc. 32.3 g/dL (32.0-36.0); Mean Corpuscular Volume 88.3 fL (80.0-100.0); Monocytes % (auto) 7.1 % (0.0-12.0); Neutrophils % (auto) 63.5 % (37.0-80.0); Nucleated Red Blood Cells % 0.1 %; Red Blood Cells 2.31 10^6/uL (4.0-5.20); White Blood Cell 6.1 10^3/uL (4.4-10.8)
[2025-04-09 05:42] LABS: Anion Gap 9 (5-15); BUN/Creatinine Ratio 18.6 (10.0-20.0); Glucose 96 mg/dL (74-106); Potassium 4.3 mmol/L (3.5-5.1)
[2025-04-09 05:43] LABS: Base Excess -8.6 mmol/L (-2.0-3.0)
[2025-04-09 05:57] LABS: Hemoglobin 6.6 g/dL (12.2-16.2)
[2025-04-09 06:00] LABS: Alanine Aminotransferase 9 U/L (7-40); Alkaline Phosphatase 127 U/L (46-116); Aspartate Aminotransferase 10 U/L (13-40); Bilirubin, Total < 0.2 mg/dL (0.2-1.0); Blood Urea Nitrogen 27 mg/dL (9-23); Calcium 8.1 mg/dL (8.7-10.4); Carbon Dioxide 17 mmol/L (20-31); Chloride 110 mmol/L (98-107); Sodium 136 mmol/L (136-145); Total Protein 4.3 g/dL (5.7-8.2)
[2025-04-09 07:41] LABS: Hematocrit 21.1 % (36.0-46.0)
[2025-04-09 07:58] LABS: Hemoglobin 6.9 g/dL (12.2-16.2)
--- NOTE | 2025-04-09 09:17 | DVHPN2 ---
Subjective Denies any symptoms Reviewed: Care Plan, H&P, Labs, Medications, Previous Orders, Radiology, Other (Consultations) Changes from previous H/P or p: No Changes General: Per HPI Objective Vitals Vital Signs Date Time Temp Pulse Resp B/P (MAP) Pulse Ox O2 Delivery O2 Flow Rate FiO2 04/09/25 06:40 68 19 92/51 (65) 97 30 04/09/25 06:00 Mechanical Ventilator+ 0 04/09/25 04:00 97.5 97.5 Intake/Output Intake and Output 04/09/25 07:00 Intake Total 2540.503 ml Output Total 1125 ml Balance 1415.503 ml IV Total 2326.503 ml Tube Feeding 154 ml Other 60 ml Output Urine Total 1125 ml Exam Assess patient will sitting in her wheelchair. General Appearance: mild distress, Other (Chemically sedated) HEENT: Atraumatic, PERRLA Lungs: Clear to auscultation, Normal air movement, Other (Mechanical ventilation) Cardiovascular: Regular rate, Normal S1, Normal S2 Abdomen: Normal bowel sounds, Soft Genitourinary: No Apparent Abnormalities, Other (Almaraz's) Extremities: Other (Right BKA) Neuro: Cranial nerves 3-12 NL, Other (Intubated and sedated) Skin: Dry, Intact, Wounds (See nurse notes and pictures) Psych/Mental Status: Other (Intubated and sedated) Medications Current Medications Medications Dose Ordered Sig/John Route Start Time Stop Time Status Last Admin Dose Admin Acetaminophen 650 mg Q6HP PRN PO 02/19/25 13:45 03/09/25 21:36 650 MG Diagnostic Test (Pha) 1 strip ACHS 02/19/25 17:00 04/09/25 07:08 1 STRIP Dextrose 50 ml UD PRN IV 02/19/25 15:45 03/14/25 21:04 50 ML Potassium Chloride 100 ml @ 50 mls/hr Q2H IV 02/19/25 23:15 02/20/25 05:14 Cancel Potassium Chloride 100 ml @ 50 mls/hr Q2H IV 02/20/25 07:15 02/20/25 11:14 UNV Calcium Acetate 1,334 mg TIDWMEALS PO 03/04/25 12:00 04/06/25 17:30 1,334 MG Ergocalciferol 50,000 unit Q7D PO 03/04/25 11:45 03/25/25 15:05 50,000 UNIT Zirconium Oxide 10 gm TID PO 03/07/25 14:00 Cancel Sodium Bicarbonate 50 ml/ Sodium Chloride 1,050 ml @ 100 mls/hr [id number] IV 03/07/25 11:45 Cancel Pantoprazole Sodium 40 mg BID IV 03/13/25 10:00 04/08/25 22:35 40 MG Albuterol 2.5 mg Q6HR NEB 03/13/25 12:00 04/09/25 06:44 2.5 MG Ipratropium [place] 0.5 mg Q6HR NEB 03/13/25 12:00 04/09/25 06:44 0.5 MG Saccharomyces Boulardii 250 mg DAILY PO 03/14/25 10:00 04/08/25 09:52 250 MG Atorvastatin Calcium 80 mg HS PO 03/24/25 22:00 04/08/25 22:35 80 MG Enoxaparin Sodium 40 mg DAILY SC 03/25/25 10:00 04/08/25 09:53 40 MG Aspirin 81 mg DAILY NG 03/25/25 10:00 04/08/25 09:52 81 MG Insulin Human Regular ACHS SC 03/30/25 22:00 04/08/25 22:41 2 UNITS Guaifenesin 200 mg Q4HP PRN PO 04/01/25 16:00 04/01/25 22:16 200 MG Vancomycin HCl 0 ml @ 0 mls/hr UD IV 04/02/25 18:30 04/14/25 18:30 Ceftolozane/ Tazobactam 1.5 gm/ Dextrose 100 ml @ 100 mls/hr Q8HR IV 04/03/25 14:00 04/10/25 13:59 04/09/25 06:33 100 MLS/HR Ondansetron HCl 4 mg Q8HP PRN PO 04/05/25 15:30 Fentanyl Citrate 250 ml @ 2.5 mls/hr Q24H IV 04/06/25 11:00 04/07/25 14:27 12.5 MLS/HR Dextrose 1,000 ml @ 75 mls/hr [id number] IV 04/07/25 07:45 04/09/25 04:45 75 MLS/HR Norepinephrine Bitartrate 250 ml @ 3.75 mls/hr Q24H IV 04/08/25 02:30 04/08/25 02:37 3.75 MLS/HR Enteral Nutritional Formula 1,000 ml 30ML/HR GT 04/08/25 09:30 Propofol 100 ml @ 2.232 mls/ hr Q24H IV 04/08/25 16:45 04/09/25 04:45 11.16 MLS/HR Laboratory Results Laboratory Tests 04/09/25 05:00 04/09/25 07:20 Chemistry Test 04/09/25 05:00 Albumin 2.0 g/dL (3.2-4.8) L Calcium Level 8.1 mg/dL (8.7-10.4) L Total Protein 4.3 g/dL (5.7-8.2) L LFT Test 04/09/25 05:00 Alanine Aminotransferase (ALT) 9 U/L (7-40) Alkaline Phosphatase 127 U/L (46-116) H Aspartate Amino Transferase (AST) 10 U/L (13-40) L Total Bilirubin < 0.2 mg/dL (0.2-1.0) L Urinalysis Test 02/19/25 17:27 03/04/25 05:00 Urine Color Colorless (Yellow) Urine Clarity Clear (Clear) Urine pH 6.5 (5.0-9.0) Urine Specific [place] 1.008 (1.001-1.035) Urine Protein 2+ (Negative) H Urine Ketones 1+ (Negative) H Urine Blood 1+ /uL (Negative) H Urine Nitrite Negative (Negative) Urine Bilirubin Negative (Negative) Urine Urobilinogen Normal mg/dL (Negative) Urine Leukocyte Esterase Negative /uL (Negative) Urine RBC 6 /hpf (0 - 4) Urine Microscopic WBC 2 /HPF (0-5) Urine Squamous Epithelial Cells Few /hpf (<5) Urine Bacteria None seen /hpf (None Seen) Urine Glucose 2+ mg/dL (Normal) H Urine Creatinine 25.51 mg/dL (30.0-125.0) L Urine Protein/Creatinine Ratio 14.00 Urine Sodium 80 mmol/L (40-220) Urine Total Protein 357.1 mg/dL (1-14) H Blood Gas Results Test 04/09/25 05:37 Arterial Blood pH 7.342 (7.350-7.450) FiO2 % 30.0 Microbiology Microbiology Date/Time Source Procedure Growth Status 04/06/25 20:35 Blood Blood Culture - Preliminary NO GROWTH AFTER 48 HOURS OF INCUBATION. Resulted 04/06/25 10:20 Sputum Gram Stain - Final Resulted 04/06/25 10:20 Sputum Respiratory Culture - Preliminary Resulted 04/02/25 13:00 Stool Clostridium difficile Toxin Assay - Final Complete 03/06/25 14:37 Knee Left Gram Stain - Final Complete 03/06/25 14:37 Knee Left Anaerobic Culture - Final Complete 03/06/25 14:37 Aerobic Culture - Final Staphylococcus aureus Complete 03/04/25 13:29 Aspirate Gram Stain - Final Complete 03/04/25 13:29 Body Fluid Culture - Final Staphylococcus aureus Complete 02/19/25 17:27 Urine - [place] Urine Culture - Final Complete Labs and/or images reviewed: Labs reviewed by me, Image(s) reviewed by me Assessment/Plan Assessment/Plan Impression: Multiple acute/subacute strokes Left lower extremity cellulitis Rule out left septic knee Hypokalemia Acute kidney injury likely hemodynamically mediated due to vasomotor nephropathy Chronic kidney disease Peripheral vascular disease status post right [id number] amputation 6 months ago Poorly controlled type 2 diabetes Sepsis Hypertension Mixed hyperlipidemia Polysubstance use disorder Diabetic neuropathy -? Suicidal ideation -septic bursitis with Staphylococcus aureus -septic shock Angioedema of the tongue -hyponatremia -patient with ESBL and CRE in the sputum -cardiac arrest Plan: -events: Worsening anemia. No signs of active bleeding. FOBT pending. Possibly secondary to Zerbaxa. Long discussion made with the patient's mother yesterday regarding plan of care. Given the patient is neurologically intact, but having three different episodes requiring intubation, planning includes tracheostomy with LTAC transfer. Patient will have re-evaluation by Cardiology given patient's bradycardia in recurrent cardiac arrest. Twelve lead ECG pending. -continue antibiotics per ID -restart tube feeding -vacation sedation -PUD prophylaxis -bronchodilators -continue PPI Repeat labs and chest x-ray in a.m. Critical care time spent with patient discussing and formulating plan of care: 90 minutes. This does not include time spent performing procedures. This medical document was created using an electronic medical record system with [employer] dictation system. Although this document has been carefully reviewed, there may still be some phonetic and typographical errors. These areas are purely typographical due to imperfections of the software programs, and do not reflect any compromise in the patient's medical care. Plan discussed with: Patient, Other (RN) My Orders Orders - JUSTIN BONILLA NP Procedure Category Date Status Time Nutritional PHA 04/08/25 In Process Supplements (Jevity 09:30 Sedation Vacation HAYDER 04/08/25 In Process 08:40 Communication Order ORDERS 04/08/25 Transmitted 12:05 Communication Order ORDERS 04/08/25 Transmitted 08:40 Communication Order ORDERS 04/08/25 Transmitted 15:58 Propofol (Diprivan) PHA 04/08/25 In Process 16:45 Communication Order ORDERS 04/08/25 Transmitted 16:39 Chest Portable XY 04/09/25 Resulted 04:00 Packedcells -Active BBK 04/09/25 Logged Bleeding 08:34 Type And Screen BBK 04/09/25 In Process 08:34 Basic Metabolic Panel LAB 04/10/25 Verified 04:00 Complete Blood Count LAB 04/09/25 Logged 08:34 Electrocardigram EKG 04/09/25 Logged 08:34 Stool Occult Blood LAB 04/09/25 Transmitted 09:09 Complete Blood Count LAB 04/10/25 Verified 04:00 Date of Service: April 09, 2025 Billing Provider: JUSTIN BONILLA NP Common Visit Codes: [id number] CARE 30-74 MIN JUSTIN BONILLA NP April 09, 2025 09:16
[2025-04-09 10:15] LABS: Basophils # (auto) 0 10 ^3/uL (0-0.2); Basophils % (auto) 0.5 % (0.0-2.0); Eosinophils # (auto) 0.2 10 ^3/uL (0-0.8); Eosinophils % (auto) 3.4 % (0.0-7.0); Hematocrit 22.5 % (36.0-46.0); Hemoglobin 7.3 g/dL (12.2-16.2); Lymphocytes # (auto) 1.3 10 ^3/uL (0.4-5.4); Lymphocytes % (auto) 18.2 % (10.0-50.0); Mean Corpuscular Hemoglobin 28.5 pg (28.0-32.0); Mean Corpuscular Hgb Conc. 32.5 g/dL (32.0-36.0); Mean Corpuscular Volume 87.6 fL (80.0-100.0); Monocytes # (auto) 0.5 10 ^3/uL (0-1.3); Monocytes % (auto) 6.9 % (0.0-12.0); Nucleated Red Blood Cells % 0.1 %; Platelet Count (auto) 321 10^3/uL (140-450); Red Blood Cells 2.56 10^6/uL (4.0-5.20); Red Cell Distribution Width 17.1 % (11.8-14.3); White Blood Cell 7.1 10^3/uL (4.4-10.8)
--- NOTE | 2025-04-09 10:35 | DVHPN2 ---
Progress Note - Dictate Date Seen: April 09, 2025 Medical Necessity Reason Pt with a Central, PICC or Fol: Yes The following are medically ne: Acosta Catheter Reason for acosta catheter: Strict I&O Subjective Mr. Kaur is a 54 years old right-handed female with a history of hypertension, diabetes, dyslipidemia, anxiety, GERD, osteo myelitis status post right BKA, she came [facility] the [facility] on 02[facility]19[facility] with a chief complaint of general weakness. He was transferred/ICU on 03/13/25 for ALOC, nasal bleeding and intubation Unfortunately, she was coded on 04/06/2025 for 8 minutes, she has been reintubated since I have seen and examined the patient, I have talked to her nurse, she is sedated, intubated, but is responsive to light painful stimuli. She followed verbal commands when she was sedation She has unstable H/H, she is to receive RBC transfusion Cardiology consult Re: Clearance for tracheostomy Fentanyl 75 mcg/hour, propofol 35 mgm/minute Psychiatry consultation, 02/26/25: 1:1 sitter. Transferred to inpatient psychiatric facility. Cymbalta 30 mg b.i.d. ABG, 03/13/2025: Unremarkable UDS, 02/19/2025: Cannabinoids Plasma alcohol, 02/19/2025: 3 Urinalysis, 02/19, negative: WBC: 2, urine leukocyte esterase WBC/HB/PLT/MCV, 02/20/2025: 21.9/10.9/398/83.1, 03/13/2025: 11.7/6.5/424/85.4 PT/INR/PTT, 03/13/2025: 10.6/1/38.6 K, 02/19/2025: 1.7, 02/20/2025: 2.1 BUN/CR, 02/20/2025: 33/2.03, 03/13/2025: 51.93 HGB A1c, 06/03/2024: 13.1 Liver function tests, 02/20/2025: Unremarkable TG/HDL/LDL/HDL, 04/11/2024: 180/238/164/43 MAGALIS, 02/21/2025: 1. Technically good study. Sinus rhythm. 2. Left atrial enlargement. 3. Number Valves appear to be structurally normal. 4. Ventricular systolic function is preserved at 60% with normal RV function. 5. Doppler reveals mild TR. No significant mitral or aortic insufficiency. No atrial septal or ventricular septal defects 6. No masses or vegetations discernible. 7. The atrial appendage looks clean, no masses. No atrial or ventricular septal defects as noted. No abnormal shunting. Bubble study was negative 8. The valves appear to be structurally normal. No vegetations or signs of emboli present. Carotid Doppler, 02/20/2025: No hemodynamically significant stenosis noted in the right carotid system. No hemodynamically significant stenosis noted in the left carotid system. Chest X-ray, 03/19/25: 1. Endotracheal tube terminates 4cm from caleb. Other lines and tubes are unchanged in position. 2. Bilateral airspace disease similar to prior study. CT head, : Small age-indeterminate infarct extending from the right jorge radiata into the right basal ganglia. Further evaluation with MRI brain with diffusion-weighted imaging is recommended. CT head, , No acute intracranial abnormality. Multiple subacute bilateral lacunar infarcts as seen on prior MRI. MRI head, 02/19/2025: 1. There are multiple small foci of acute to subacute infarct in the right jorge radiata and right basal ganglia. There are also multiple small acute to subacute infarcts in the left anteromedial frontal lobe and in the left jorge radiata and left basal ganglia. There is no evidence of acute hemorrhage MR head, 03/21/2025: 1. Multiple foci of restricted diffusion involving the left corpus callosum, bilateral basal ganglia and right jorge radiata. The largest area involves the left splenium of the corpus callosum. These likely represent acute to subacute infarcts. There is no evidence of acute hemorrhage. 2. Moderate amount of fluid in the bilateral mastoid air cells MRI left foot, 02/22/25: Moderate dorsal subcutaneous edema. No evidence of osteomyelitis. No drainable fluid collection noted. Moderate myositis. vital signs Vital Sign Date Time Temp Pulse Resp B/P (MAP) Pulse Ox O2 Delivery O2 Flow Rate FiO2 04/09/25 06:40 68 19 92/51 (65) 97 30 04/09/25 06:00 Mechanical Ventilator+ 0 04/09/25 04:00 97.5 97.5 Total Intake and Output 504/08/25 04/09/25 15:00 23:00 07:00 Intake Total 830.563 ml 807.440 ml 902.50 ml Output Total 675 ml 450 ml Balance 830.563 ml 132.440 ml 452.50 ml medications Current Medications Medications Dose Ordered Sig/John Route Start Time Stop Time Status Last Admin Dose Admin Acetaminophen 650 mg Q6HP PRN PO 02/19/25 13:45 03/09/25 21:36 650 MG Diagnostic Test (Pha) 1 strip ACHS 02/19/25 17:00 04/09/25 07:08 1 STRIP Dextrose 50 ml UD PRN IV 02/19/25 15:45 03/14/25 21:04 50 ML Potassium Chloride 100 ml @ 50 mls/hr Q2H IV 02/19/25 23:15 02/20/25 05:14 Cancel Potassium Chloride 100 ml @ 50 mls/hr Q2H IV 02/20/25 07:15 02/20/25 11:14 UNV Calcium Acetate 1,334 mg TIDWMEALS PO 03/04/25 12:00 04/09/25 10:12 1,334 MG Ergocalciferol 50,000 unit Q7D PO 03/04/25 11:45 03/25/25 15:05 50,000 UNIT Zirconium Oxide 10 gm TID PO 03/07/25 14:00 Cancel Sodium Bicarbonate 50 ml/ Sodium Chloride 1,050 ml @ 100 mls/hr [id number] IV 03/07/25 11:45 Cancel Pantoprazole Sodium 40 mg BID IV 03/13/25 10:00 04/09/25 10:12 40 MG Albuterol 2.5 mg Q6HR NEB 03/13/25 12:00 04/09/25 06:44 2.5 MG Ipratropium [place] 0.5 mg Q6HR NEB 03/13/25 12:00 04/09/25 06:44 0.5 MG Saccharomyces Boulardii 250 mg DAILY PO 03/14/25 10:00 04/09/25 10:12 250 MG Atorvastatin Calcium 80 mg HS PO 03/24/25 22:00 04/08/25 22:35 80 MG Enoxaparin Sodium 40 mg DAILY SC 03/25/25 10:00 04/09/25 10:13 40 MG Aspirin 81 mg DAILY NG 03/25/25 10:00 04/09/25 10:12 81 MG Insulin Human Regular ACHS SC 03/30/25 22:00 04/08/25 22:41 2 UNITS Guaifenesin 200 mg Q4HP PRN PO 04/01/25 16:00 04/01/25 22:16 200 MG Vancomycin HCl 0 ml @ 0 mls/hr UD IV 04/02/25 18:30 04/14/25 18:30 Ceftolozane/ Tazobactam 1.5 gm/ Dextrose 100 ml @ 100 mls/hr Q8HR IV 04/03/25 14:00 04/10/25 13:59 04/09/25 06:33 100 MLS/HR Ondansetron HCl 4 mg Q8HP PRN PO 04/05/25 15:30 Fentanyl Citrate 250 ml @ 2.5 mls/hr Q24H IV 04/06/25 11:00 04/08/25 15:30 5 MLS/HR Dextrose 1,000 ml @ 75 mls/hr [id number] IV 04/07/25 07:45 04/09/25 04:45 75 MLS/HR Norepinephrine Bitartrate 250 ml @ 3.75 mls/hr Q24H IV 04/08/25 02:30 04/08/25 02:37 3.75 MLS/HR Enteral Nutritional Formula 1,000 ml 30ML/HR GT 04/08/25 09:30 Propofol 100 ml @ 2.232 mls/ hr Q24H IV 04/08/25 16:45 04/09/25 04:45 11.16 MLS/HR objective The patient is well-nourished and well-developed with no distress. The patient is intubated MENTAL STATUS: Subjective CRANIAL NERVES: Pupils are equal, round and reactive.There are corneal reflexes and doll's eyes phenomenon. No signs of facial weakness. There are gagging or coughing reflexes SENSATION: No responses to pain stimuli. MOTOR: Normal tone in the upper and lower extremity. Normal muscle bulk. No fasciculations. No spontaneous movement. REFLEXES: Deep tendon reflexes are symmetrical. No pathological reflexes. CEREBELLAR/COORDINATION: Deferred GAIT/STATION: deferred. laboratory and microbiology Laboratory Tests 04/09/25 09:51 04/09/25 05:00 Test 04/09/25 05:00 Range/Units Serum Glucose 96 74-106 mg/dL Problem List Acute respiratory failure, reintubated on 04/06/2025 Excessive nasal bleeding Come company resolved Metabolic encephalopathy Hypoxic encephalopathy Toxic encephalopathy Left hemiparesis secondary stroke Left homonymous hemianopsia secondary to stroke General weakness Multiple acute/subacute strokes (MRI head: 02/19/2025, 03/21/2025) Status post right BKA Depression Assessment/Plan Monitoring Supportive treatment ICU Stabilize vitals Respiratory support/vent management Oxygen Antibiotics Aspirin 81 mg daily Lipitor 80mg Qd Cymbalta 30 mg b.i.d. DVT prophylaxis/Lovenox Quit tobacco smoking completely Tracheostomy today More recommendation per clinical course This medical document was created using an electronic medical record system with [employer] dictation system. Although this document has been carefully reviewed, there may still be some phonetic and typographical errors. These areas are purely typographical due to imperfections of the software programs, and do not reflect any compromise in the patient's medical care. Prognosis guarded Dietary Evaluation Review Comments: 1) Esau 1 pk BID 2) Refer Accounts Payable Analyst on DC 3) Continue current plan of care Expected Outcomes/Goals: Pt will meet >75% estimated needs Fu 3-5 days Plan discussed with: Other Critical Care Time(min): 30 NEELA RUEDA MD April 09, 2025 10:35
--- NOTE | 2025-04-09 16:40 | DVHPN2 ---
Progress Note - Dictate Date Seen: April 09, 2025 Medical Necessity Reason Pt with a Central, PICC or Fol: Yes The following are medically ne: Acosta Catheter Reason for acosta catheter: Strict I&O Subjective Patient was seen and evaluated in follow up in the ICU. Patient is intubated and sedated on ventilator. 30% FiO2. Patient is responsive to light painful stimuli and follows verbal commands. Patient had a drop in H&h and received 1 unit of PRBCs. HGB 7.3, HCT 22.5, CO2 17, BUN 27, LOAN DOCUMENTATION SPECIALIST 1.45, CA 8.1. Chest x-ray showed cardiomegaly with mild congestion. FOBT pending. Patient has been recommended for tracheostomy with LTAC transfer. Patient is cardiac cleared for procedure. vital signs Vital Sign Date Time Temp Pulse Resp B/P (MAP) Pulse Ox O2 Delivery O2 Flow Rate FiO2 04/09/25 12:18 91/67 04/09/25 12:00 82 04/09/25 06:40 19 97 30 04/09/25 06:00 Mechanical Ventilator+ 0 04/09/25 04:00 97.5 97.5 Total Intake and Output 04/08/25 04/08/25 04/09/25 15:00 23:00 07:00 Intake Total 830.563 ml 807.440 ml 902.50 ml Output Total 675 ml 450 ml Balance 830.563 ml 132.440 ml 452.50 ml medications Current Medications Medications Dose Ordered Sig/John Route Start Time Stop Time Status Last Admin Dose Admin Acetaminophen 650 mg Q6HP PRN PO 02/19/25 13:45 03/09/25 21:36 650 MG Diagnostic Test (Pha) 1 strip ACHS 02/19/25 17:00 04/09/25 12:15 1 STRIP Dextrose 50 ml UD PRN IV 02/19/25 15:45 03/14/25 21:04 50 ML Potassium Chloride 100 ml @ 50 mls/hr Q2H IV 02/19/25 23:15 02/20/25 05:14 Cancel Potassium Chloride 100 ml @ 50 mls/hr Q2H IV 02/20/25 07:15 02/20/25 11:14 UNV Calcium Acetate 1,334 mg TIDWMEALS PO 03/04/25 12:00 04/09/25 12:19 1,334 MG Ergocalciferol 50,000 unit Q7D PO 03/04/25 11:45 03/25/25 15:05 50,000 UNIT Zirconium Oxide 10 gm TID PO 03/07/25 14:00 Cancel Sodium Bicarbonate 50 ml/ Sodium Chloride 1,050 ml @ 100 mls/hr [id number] IV 03/07/25 11:45 Cancel Pantoprazole Sodium 40 mg BID IV 03/13/25 10:00 04/09/25 10:12 40 MG Albuterol 2.5 mg Q6HR NEB 03/13/25 12:00 04/09/25 06:44 2.5 MG Ipratropium [place] 0.5 mg Q6HR NEB 03/13/25 12:00 04/09/25 06:44 0.5 MG Saccharomyces Boulardii 250 mg DAILY PO 03/14/25 10:00 04/09/25 10:12 250 MG Atorvastatin Calcium 80 mg HS PO 03/24/25 22:00 04/08/25 22:35 80 MG Enoxaparin Sodium 40 mg DAILY SC 03/25/25 10:00 04/09/25 10:13 40 MG Aspirin 81 mg DAILY NG 03/25/25 10:00 04/09/25 10:12 81 MG Insulin Human Regular ACHS SC 03/30/25 22:00 04/09/25 12:22 2 UNITS Guaifenesin 200 mg Q4HP PRN PO 04/01/25 16:00 04/01/25 22:16 200 MG Vancomycin HCl 0 ml @ 0 mls/hr UD IV 04/02/25 18:30 04/14/25 18:30 Ceftolozane/ Tazobactam 1.5 gm/ Dextrose 100 ml @ 100 mls/hr Q8HR IV 04/03/25 14:00 04/10/25 13:59 04/09/25 06:33 100 MLS/HR Ondansetron HCl 4 mg Q8HP PRN PO 04/05/25 15:30 Fentanyl Citrate 250 ml @ 2.5 mls/hr Q24H IV 04/06/25 11:00 04/08/25 15:30 5 MLS/HR Dextrose 1,000 ml @ 75 mls/hr [id number] IV 04/07/25 07:45 04/09/25 04:45 75 MLS/HR Norepinephrine Bitartrate 250 ml @ 3.75 mls/hr Q24H IV 04/08/25 02:30 04/08/25 02:37 3.75 MLS/HR Enteral Nutritional Formula 1,000 ml 30ML/HR GT 04/08/25 09:30 Propofol 100 ml @ 2.232 mls/ hr Q24H IV 04/08/25 16:45 04/09/25 12:18 15.624 MLS/HR objective GENERAL: Ill appearing, intubated on ventilator. EYES: PERRL, EOMI. Anicteric. HENT: Moist mucous membranes. LUNGS: Decreased breath sounds. CARDIOVASCULAR: Regular rate and rhythm. ABDOMEN: Soft, non-tender and non-distended. EXTREMITIES: No edema. SKIN: Warm, dry. laboratory and microbiology Laboratory Tests 04/09/25 09:51 04/09/25 05:00 Test 04/09/25 05:00 Range/Units Serum Glucose 96 74-106 mg/dL Problem List Multiple acute/subacute strokes. Hypokalemia. Acute kidney injury. Hypertension, newly diagnosed. Insulin-dependent diabetes mellitus. Status post right BKA. Dyslipidemia. Polysubstance use disorder. Left lower extremity cellulitis. Peripheral vascular disease status post right [id number] amputation 6 months ago. Sepsis. Diabetic neuropathy. Assessment/Plan Continued all current supportive medical care. Patient is cardiac cleared for procedure. Aspirin, Lipitor, Metoprolol. IV antibiotics as ordered. DVT and GI prophylactics. Vasopressors for hemodynamic support. Additional plan as per the hospital course. Critical care time of 45 minutes provided to include time spent evaluation of patient at bedside, when appropriate patient/family education for diagnosis, treatment plan, review of pertinent medical information and discussion of care with specialty providers and PCP. Mechanical ventilator parameters, treatment and adjustments have personally been reviewed by me and treatment plan by resident program specialist has also been reviewed. Dietary Evaluation Review Comments: 1) Esau 1 pk BID 2) Refer Water Supply Engineer on DC 3) Continue current plan of care Expected Outcomes/Goals: Pt will meet >75% estimated needs Fu 3-5 days Plan discussed with: Other YANIRA WINN MD April 09, 2025 14:35
--- NOTE | 2025-04-09 22:11 | DVHPN2 ---
Progress Note - Dictate Date Seen: April 09, 2025 Medical Necessity Reason Pt with a Central, PICC or Fol: Yes The following are medically ne: Acosta Catheter Reason for acosta catheter: Strict I&O Subjective Patient seen and examined at bedside. Sedated, intubated on mechanical ventilator. Overnight events reviewed. vital signs Vital Sign Date Time Temp Pulse Resp B/P (MAP) Pulse Ox O2 Delivery O2 Flow Rate FiO2 04/09/25 21:58 86 22 135/75 (95) 100 30 04/09/25 20:00 98.2 208.8 04/09/25 18:00 Mechanical Ventilator+ 04/09/25 06:00 0 Total Intake and Output 04/08/25 04/08/25 04/09/25 15:00 23:00 07:00 Intake Total 830.563 ml 807.440 ml 1000.60 ml Output Total 675 ml 450 ml Balance 830.563 ml 132.440 ml 550.60 ml medications Current Medications Medications Dose Ordered Sig/John Route Start Time Stop Time Status Last Admin Dose Admin Acetaminophen 650 mg Q6HP PRN PO 02/19/25 13:45 03/09/25 21:36 650 MG Diagnostic Test (Pha) 1 strip ACHS 02/19/25 17:00 04/09/25 17:11 1 STRIP Dextrose 50 ml UD PRN IV 02/19/25 15:45 03/14/25 21:04 50 ML Potassium Chloride 100 ml @ 50 mls/hr Q2H IV 02/19/25 23:15 02/20/25 05:14 Cancel Potassium Chloride 100 ml @ 50 mls/hr Q2H IV 02/20/25 07:15 02/20/25 11:14 UNV Calcium Acetate 1,334 mg TIDWMEALS PO 03/04/25 12:00 04/09/25 17:17 1,334 MG Ergocalciferol 50,000 unit Q7D PO 03/04/25 11:45 03/25/25 15:05 50,000 UNIT Zirconium Oxide 10 gm TID PO 03/07/25 14:00 Cancel Sodium Bicarbonate 50 ml/ Sodium Chloride 1,050 ml @ 100 mls/hr [id number] IV 03/07/25 11:45 Cancel Pantoprazole Sodium 40 mg BID IV 03/13/25 10:00 04/09/25 10:12 40 MG Albuterol 2.5 mg Q6HR NEB 03/13/25 12:00 04/09/25 17:59 2.5 MG Ipratropium [place] 0.5 mg Q6HR NEB 03/13/25 12:00 04/09/25 17:59 0.5 MG Saccharomyces Boulardii 250 mg DAILY PO 03/14/25 10:00 04/09/25 10:12 250 MG Atorvastatin Calcium 80 mg HS PO 03/24/25 22:00 04/08/25 22:35 80 MG Enoxaparin Sodium 40 mg DAILY SC 03/25/25 10:00 04/09/25 10:13 40 MG Aspirin 81 mg DAILY NG 03/25/25 10:00 04/09/25 10:12 81 MG Insulin Human Regular ACHS SC 03/30/25 22:00 04/09/25 17:16 2 UNITS Guaifenesin 200 mg Q4HP PRN PO 04/01/25 16:00 04/01/25 22:16 200 MG Vancomycin HCl 0 ml @ 0 mls/hr UD IV 04/02/25 18:30 04/14/25 18:30 Ceftolozane/ Tazobactam 1.5 gm/ Dextrose 100 ml @ 100 mls/hr Q8HR IV 04/03/25 14:00 04/10/25 13:59 04/09/25 15:12 100 MLS/HR Ondansetron HCl 4 mg Q8HP PRN PO 04/05/25 15:30 Fentanyl Citrate 250 ml @ 2.5 mls/hr Q24H IV 04/06/25 11:00 04/09/25 20:14 7.5 MLS/HR Dextrose 1,000 ml @ 75 mls/hr [id number] IV 04/07/25 07:45 04/09/25 20:14 75 MLS/HR Norepinephrine Bitartrate 250 ml @ 3.75 mls/hr Q24H IV 04/08/25 02:30 04/08/25 02:37 3.75 MLS/HR Enteral Nutritional Formula 1,000 ml 30ML/HR GT 04/08/25 09:30 Propofol 100 ml @ 2.232 mls/ hr Q24H IV 04/08/25 16:45 04/09/25 12:18 15.624 MLS/HR objective Gen.: Patient lying in bed in medical ICU. Sedated, intubated on mechanical ventilator. Head: Normocephalic, atraumatic. Eyes: PERRLA. Ears: Normal external anatomy. Throat: Endotracheal tube and orogastric tube in place. Neck: Supple, trachea midline. Chest: Transmitted breath sounds bilaterally. Decreased air entry bilaterally. No wheezing. Bibasilar crackles. Cardiovascular: Positive S1, positive S2. Regular rate and rhythm. Abdomen: Positive bowel sounds in all 4 quadrants. Soft, nontender, nondistended. : Acosta in place. Normal external genitalia. Rectal: Deferred. Skin: Warm, dry. Intact. Extremities: 2+ radial pulses bilaterally. No lower extremity edema. Right BKA. Neuro: Sedated. laboratory and microbiology Laboratory Tests 04/09/25 09:51 04/09/25 05:00 Test 04/09/25 05:00 Range/Units Serum Glucose 96 74-106 mg/dL Assessment/Plan Impression: Acute hypoxic respiratory failure On mechanical ventilator S/p cardiac arrest with ROSC Multiple acute/subacute strokes. Altered mental status Acute kidney injury. Hypertension, newly diagnosed. Insulin-dependent diabetes mellitus. Polysubstance use Peripheral vascular disease, s/p right BKA 6 months ago. Sepsis Events: Remains on mechanical ventilator AC mode with RR 18, VT 400, PEEP 5, FIO2 30% CXR reviewed, reveals cardiomegaly with mild congestion. Sedated on Propofol and Fentanyl Off pressors, hemodynamically stable. Hemoglobin dropped to 6.9 g/dL 1 unit PRBC transfusion Head of bed elevation Aspiration precautions Continue bronchodilators Continue antibiotics. Follow up cultures On statin Tube feeds for nutritional support Monitor hemoglobin Monitor renal function Monitor electrolytes. Supplement as needed Potassium at goal ABG reviewed, notable for acidemia Protonix BID for GI prophylaxis Lovenox for DVT prophylaxis Labs and imaging reviewed. Rest of plan as noted below. Plan: S/p cardiac arrest Intubated, on mechanical ventilator. AC mode with RR 18, VT 400, PEEP 5, FIO2 30% Titrate FIO2 to keep O2 saturation above 90%. VAP bundle. Daily ABG and CXR while intubated Sedate for ventilator synchrony HOB elevation Aspiration precautions Pressors as necessary for hemodynamic support Titrate to keep mean arterial pressure greater than 65 mmHg. Bronchodilators Continue antibiotics. F/u cultures. Accu-Cheks, ISS PRN. Monitor renal function Monitor electrolytes Supplement as needed Continue psych meds Tube feeds for nutritional support Pressors as necessary for hemodynamic support Titrate to keep mean arterial pressure greater than 65 mmHg. GI prophylaxis - Protonix. DVT prophylaxis - Lovenox. Prognosis: Poor given patient's multiple co-morbidities. Condition: Critical Rest of plan per hospitalist and other consultants. A total of 35 minutes of critical care time was spent reviewing the patient record, examining the patient, making a diagnostic and therapeutic plan, discussing this plan with the medical personnel, following up on diagnostic studies and following the patient for clinical stability excluding any and all procedures. At least 50% of this time was spent in direct, [id number] contact. Thank you, FRANCISCO Alanis, for allowing me to participate in this patient's care. Further recommendations will depend on the patient's clinical course. Please do not hesitate to contact me if you have any questions or concerns. This medical document was created using an electronic medical record system with [employer] dictation system. Although these documentations are being carefully reviewed, there may still be some phonetic and typographical changes. The errors are purely typographical, due to imperfection on the software program, and do not reflect any compromise in the patient's medical care. Dietary Evaluation Review Comments: 1) Esau 1 pk BID 2) Refer Manager [employer] on DC 3) Continue current plan of care Expected Outcomes/Goals: Pt will meet >75% estimated needs Fu 3-5 days Plan discussed with: Other (ASHLEY Heaton) Critical Care Time(min): 35 LARRY HERRERA MD April 09, 2025 22:11
[2025-04-10] VITALS (110 sets, daily range): BP systolic 92–158; BP diastolic 55–83; PULSE 73–95; RESP 11–25; TEMP 97.2–98.6; O2SAT 93–100
[2025-04-10 04:58] LABS: Basophils # (auto) 0 10 ^3/uL (0-0.2); Eosinophils # (auto) 0.2 10 ^3/uL (0-0.8); Hemoglobin 8.4 g/dL (12.2-16.2); Lymphocytes # (auto) 1.5 10 ^3/uL (0.4-5.4)
[2025-04-10 05:00] LABS: Basophils % (auto) 0.7 % (0.0-2.0); Hematocrit 25.6 % (36.0-46.0); Lymphocytes % (auto) 23.1 % (10.0-50.0); Mean Corpuscular Hemoglobin 28.8 pg (28.0-32.0); Mean Corpuscular Volume 87.3 fL (80.0-100.0); Monocytes # (auto) 0.4 10 ^3/uL (0-1.3); Monocytes % (auto) 6.7 % (0.0-12.0); Neutrophils # (auto) 4.3 10 ^3/uL (1.6-8.6); Neutrophils % (auto) 66.5 % (37.0-80.0); Platelet Count (auto) 349 10^3/uL (140-450); Red Blood Cells 2.93 10^6/uL (4.0-5.20); White Blood Cell 6.5 10^3/uL (4.4-10.8)
[2025-04-10 05:08] LABS: Potassium 4.3 mmol/L (3.5-5.1)
[2025-04-10 05:09] LABS: Anion Gap 8 (5-15)
[2025-04-10 05:11] LABS: Carbon Dioxide 17 mmol/L (20-31); Chloride 109 mmol/L (98-107); Sodium 134 mmol/L (136-145)
[2025-04-10 05:14] LABS: BUN/Creatinine Ratio 18.1 (10.0-20.0)
[2025-04-10 05:16] LABS: Blood Urea Nitrogen 27 mg/dL (9-23); Glucose 161 mg/dL (74-106)
--- NOTE | 2025-04-10 05:51 | DVH ---
EXAM: XR Chest, 1 View CLINICAL INDICATION: INTUBATED TECHNIQUE: Frontal view of the chest. COMPARISON: XY CHEST PORTABLE on DOS: 04/09/25, XY CHEST PORTABLE on DOS: 04/08/25, XY CHEST PORTABLE on DOS: 04/07/25, XY CHEST PORTABLE on DOS: 04/06/25, XY CHEST PORTABLE on DOS: 04/06/25 FINDINGS: LUNGS AND PLEURAL SPACES: See below. HEART: Cardiomegaly with mild congestion. MEDIASTINUM: Unremarkable. Normal mediastinal contour. BONES/JOINTS: Unremarkable. No acute fracture. TUBES, LINES AND DEVICES: The endotracheal tube (ETT) is in satisfactory position. OTHER FINDINGS: . . IMPRESSION: Cardiomegaly with mild congestion.
[2025-04-10 09:05] LABS: Base Excess -10.1 mmol/L (-2.0-3.0)
--- NOTE | 2025-04-10 09:31 | DVHPN2 ---
Subjective Denies any symptoms Reviewed: Care Plan, H&P, Labs, Medications, Previous Orders, Radiology, Other (Consultations) Changes from previous H/P or p: No Changes General: Per HPI Objective Vitals Vital Signs Date Time Temp Pulse Resp B/P (MAP) Pulse Ox O2 Delivery O2 Flow Rate FiO2 04/10/25 08:15 97.9 87 16 140/83 (102) 100 208.2 04/10/25 08:14 30 04/10/25 08:00 Mechanical Ventilator+ 04/09/25 06:00 0 Intake/Output Intake and Output 04/10/25 07:00 Intake Total 3131.588 ml Output Total 3400 ml Balance -268.412 ml Intake Oral 100 ml IV Total 2531.588 ml Tube Feeding 500 ml Output Urine Total 3400 ml Stool Total 0 ml # Bowel Movements 2 Exam Assess patient will sitting in her wheelchair. General Appearance: mild distress, Other (Chemically sedated) HEENT: Atraumatic, PERRLA Lungs: Clear to auscultation, Normal air movement, Other Cardiovascular: Regular rate, Normal S1, Normal S2 Abdomen: Normal bowel sounds, Soft Genitourinary: No Apparent Abnormalities, Other Extremities: Other Neuro: Cranial nerves 3-12 NL, Other Skin: Dry, Intact, Wounds Psych/Mental Status: Other Medications Current Medications Medications Dose Ordered Sig/John Route Start Time Stop Time Status Last Admin Dose Admin Acetaminophen 650 mg Q6HP PRN PO 02/19/25 13:45 03/09/25 21:36 650 MG Diagnostic Test (Pha) 1 strip ACHS 02/19/25 17:00 04/10/25 06:52 1 STRIP Dextrose 50 ml UD PRN IV 02/19/25 15:45 03/14/25 21:04 50 ML Potassium Chloride 100 ml @ 50 mls/hr Q2H IV 02/19/25 23:15 02/20/25 05:14 Cancel Potassium Chloride 100 ml @ 50 mls/hr Q2H IV 02/20/25 07:15 02/20/25 11:14 UNV Calcium Acetate 1,334 mg TIDWMEALS PO 03/04/25 12:00 04/10/25 08:27 1,334 MG Ergocalciferol 50,000 unit Q7D PO 03/04/25 11:45 03/25/25 15:05 50,000 UNIT Zirconium Oxide 10 gm TID PO 03/07/25 14:00 Cancel Sodium Bicarbonate 50 ml/ Sodium Chloride 1,050 ml @ 100 mls/hr [id number] IV 03/07/25 11:45 Cancel Pantoprazole Sodium 40 mg BID IV 03/13/25 10:00 04/09/25 22:17 40 MG Albuterol 2.5 mg Q6HR NEB 03/13/25 12:00 04/10/25 06:18 2.5 MG Ipratropium [place] 0.5 mg Q6HR NEB 03/13/25 12:00 04/10/25 06:18 0.5 MG Saccharomyces Boulardii 250 mg DAILY PO 03/14/25 10:00 04/09/25 10:12 250 MG Atorvastatin Calcium 80 mg HS PO 03/24/25 22:00 04/09/25 22:17 80 MG Enoxaparin Sodium 40 mg DAILY SC 03/25/25 10:00 04/09/25 10:13 40 MG Aspirin 81 mg DAILY NG 03/25/25 10:00 04/09/25 10:12 81 MG Insulin Human Regular ACHS SC 03/30/25 22:00 04/10/25 06:52 3 UNITS Guaifenesin 200 mg Q4HP PRN PO 04/01/25 16:00 04/01/25 22:16 200 MG Vancomycin HCl 0 ml @ 0 mls/hr UD IV 04/02/25 18:30 04/14/25 18:30 Ceftolozane/ Tazobactam 1.5 gm/ Dextrose 100 ml @ 100 mls/hr Q8HR IV 04/03/25 14:00 04/10/25 13:59 04/10/25 05:24 100 MLS/HR Ondansetron HCl 4 mg Q8HP PRN PO 04/05/25 15:30 Fentanyl Citrate 250 ml @ 2.5 mls/hr Q24H IV 04/06/25 11:00 04/09/25 20:14 7.5 MLS/HR Dextrose 1,000 ml @ 75 mls/hr [id number] IV 04/07/25 07:45 04/09/25 20:14 75 MLS/HR Norepinephrine Bitartrate 250 ml @ 3.75 mls/hr Q24H IV 04/08/25 02:30 04/08/25 02:37 3.75 MLS/HR Enteral Nutritional Formula 1,000 ml 30ML/HR GT 04/08/25 09:30 Propofol 100 ml @ 2.232 mls/ hr Q24H IV 04/08/25 16:45 04/10/25 05:50 15.624 MLS/HR Laboratory Results Laboratory Tests 04/10/25 04:40 Chemistry Test 04/10/25 04:40 Calcium Level 8.0 mg/dL (8.7-10.4) L Urinalysis Test 02/19/25 17:27 03/04/25 05:00 Urine Color Colorless (Yellow) Urine Clarity Clear (Clear) Urine pH 6.5 (5.0-9.0) Urine Specific [place] 1.008 (1.001-1.035) Urine Protein 2+ (Negative) H Urine Ketones 1+ (Negative) H Urine Blood 1+ /uL (Negative) H Urine Nitrite Negative (Negative) Urine Bilirubin Negative (Negative) Urine Urobilinogen Normal mg/dL (Negative) Urine Leukocyte Esterase Negative /uL (Negative) Urine RBC 6 /hpf (0 - 4) Urine Microscopic WBC 2 /HPF (0-5) Urine Squamous Epithelial Cells Few /hpf (<5) Urine Bacteria None seen /hpf (None Seen) Urine Glucose 2+ mg/dL (Normal) H Urine Creatinine 25.51 mg/dL (30.0-125.0) L Urine Protein/Creatinine Ratio 14.00 Urine Sodium 80 mmol/L (40-220) Urine Total Protein 357.1 mg/dL (1-14) H Blood Gas Results Test 04/10/25 08:55 Arterial Blood pH 7.305 (7.350-7.450) FiO2 % 30.0 Microbiology Microbiology Date/Time Source Procedure Growth Status 04/06/25 20:35 Blood Blood Culture - Preliminary NO GROWTH AFTER 72 HOURS OF INCUBATION. Resulted 04/06/25 10:20 Sputum Gram Stain - Final Resulted 04/06/25 10:20 Sputum Respiratory Culture - Preliminary Resulted 04/02/25 13:00 Stool Clostridium difficile Toxin Assay - Final Complete 03/06/25 14:37 Knee Left Gram Stain - Final Complete 03/06/25 14:37 Knee Left Anaerobic Culture - Final Complete 03/06/25 14:37 Aerobic Culture - Final Staphylococcus aureus Complete 03/04/25 13:29 Aspirate Gram Stain - Final Complete 03/04/25 13:29 Body Fluid Culture - Final Staphylococcus aureus Complete 02/19/25 17:27 Urine - [place] Urine Culture - Final Complete Assessment/Plan Assessment/Plan Impression: Multiple acute/subacute strokes Left lower extremity cellulitis Rule out left septic knee Hypokalemia Acute kidney injury likely hemodynamically mediated due to vasomotor nephropathy Chronic kidney disease Peripheral vascular disease status post right verip-ubr-oaff amputation 6 months ago Poorly controlled type 2 diabetes Sepsis Hypertension Mixed hyperlipidemia Polysubstance use disorder Diabetic neuropathy -? Suicidal ideation -septic bursitis with Staphylococcus aureus -septic shock Angioedema of the tongue -hyponatremia -patient with ESBL and CRE in the sputum -cardiac arrest Plan: -events: H&H stable. No events overnight. Patient has been cleared by Cardiology for tracheostomy. Discussed this with the patient's mother Bria. She is requesting to speaking person with other family at patient's bedside later today. Surgical consultation will be placed for tracheostomy once she provides consent. -continue antibiotics per ID -restart tube feeding -vacation sedation -PUD prophylaxis -bronchodilators -continue PPI Repeat labs and chest x-ray in a.m. Critical care time spent with patient discussing and formulating plan of care: 90 minutes. This does not include time spent performing procedures. This medical document was created using an electronic medical record system with [employer] dictation system. Although this document has been carefully reviewed, there may still be some phonetic and typographical errors. These areas are purely typographical due to imperfections of the software programs, and do not reflect any compromise in the patient's medical care. Plan discussed with: Patient, Other (RN) My Orders Orders - JUSTIN BONILLA NP Procedure Category Date Status Time * Surgical Consult CONS 04/10/25 Verified Basic Metabolic Panel LAB 04/11/25 Verified 04:00 Complete Blood Count LAB 04/11/25 Verified 04:00 Date of Service: April 10, 2025 Billing Provider: JUSTIN BONILLA NP Common Visit Codes: 13488-[id number] CARE 30-74 MIN JUSTIN BONILLA NP April 10, 2025 09:31
--- NOTE | 2025-04-10 10:31 | DVHPN2 ---
Progress Note - Dictate Date Seen: April 10, 2025 Medical Necessity Reason Pt with a Central, PICC or Fol: Yes The following are medically ne: Acosta Catheter Reason for acosta catheter: Strict I&O Subjective Mr. Kaur is a 54 years old right-handed female with a history of hypertension, diabetes, dyslipidemia, anxiety, GERD, osteo myelitis status post right BKA, she came to the [facility] on 02/19/25 with a chief complaint of general weakness. He was transferred/ICU on 03/13/25 for ALOC, nasal bleeding and intubation Unfortunately, she was coded on 04/06/2025 for 8 minutes, she has been reintubated since I have seen and examined the patient, I have talked to her nurse, she is sedated, intubated, but is responsive to light light touch. Fentanyl 75 mcg/hour, propofol 35 mgm/minute Psychiatry consultation, 02/26/25: 1:1 sitter. Transferred to inpatient psychiatric facility. Cymbalta 30 mg b.i.d. ABG, 03/13/2025: Unremarkable UDS, 02/19/2025: Cannabinoids Plasma alcohol, 02/19/2025: 3 Urinalysis, 02/19, : WBC: 2, urine leukocyte esterase WBC/HB/PLT/MCV, 02/20/2025: 21.9/10.9/398/83.1, 03/13/2025: 11.7/6.5/424/85.4 PT/INR/PTT, 03/13/2025: 10.6/1/38.6 K, 02/19/2025: 1.7, 02/20/2025: 2.1 BUN/CR, 02/20/2025: 33/2.03, 03/13/2025: 51.93 HGB A1c, 06/03/2024: 13.1 Liver function tests, 02/20/2025: Unremarkable TG/HDL/LDL/HDL, 04/11/2024: 180/238/164/43 MAGALIS, 02/21/2025: 1. Technically good study. Sinus rhythm. 2. Left atrial enlargement. 3. Number Valves appear to be structurally normal. 4. Ventricular systolic function is preserved at 60% with normal RV function. 5. Doppler reveals mild TR. No significant mitral or aortic insufficiency. No atrial septal or ventricular septal defects 6. No masses or vegetations discernible. 7. The atrial appendage looks clean, no masses. No atrial or ventricular septal defects as noted. No abnormal shunting. Bubble study was negative 8. The valves appear to be structurally normal. No vegetations or signs of emboli present. Carotid Doppler, 02/20/2025: No hemodynamically significant stenosis noted in the right carotid system. No hemodynamically significant stenosis noted in the left carotid system. Chest X-ray, 03/19/25: 1. Endotracheal tube terminates 4cm from caleb. Other lines and tubes are unchanged in position. 2. Bilateral airspace disease similar to prior study. CT head, : Small age-indeterminate infarct extending from the right jorge radiata into the right basal ganglia. Further evaluation with MRI brain with diffusion-weighted imaging is recommended. CT head, , No acute intracranial abnormality. Multiple subacute bilateral lacunar infarcts as seen on prior MRI. MRI head, 02/19/2025: 1. There are multiple small foci of acute to subacute infarct in the right jorge radiata and right basal ganglia. There are also multiple small acute to subacute infarcts in the left anteromedial frontal lobe and in the left jorge radiata and left basal ganglia. There is no evidence of acute hemorrhage MR head, 03/21/2025: 1. Multiple foci of restricted diffusion involving the left corpus callosum, bilateral basal ganglia and right jorge radiata. The largest area involves the left splenium of the corpus callosum. These likely represent acute to subacute infarcts. There is no evidence of acute hemorrhage. 2. Moderate amount of fluid in the bilateral mastoid air cells MRI left foot, 02/22/25: Moderate dorsal subcutaneous edema. No evidence of osteomyelitis. No drainable fluid collection noted. Moderate myositis. vital signs Vital Sign Date Time Temp Pulse Resp B/P (MAP) Pulse Ox O2 Delivery O2 Flow Rate FiO2 04/10/25 10:20 79 20 111/66 (81) 96 30 04/10/25 08:15 97.9 208.2 04/10/25 08:00 Mechanical Ventilator+ 04/09/25 06:00 0 Total Intake and Output 04/09/25 04/09/25 04/10/25 15:00 23:00 07:00 Intake Total 959.8 ml 1094.920 ml 1076.868 ml Output Total 0 ml 1950 ml 1450 ml Balance 959.8 ml -855.080 ml -373.132 ml medications Current Medications Medications Dose Ordered Sig/John Route Start Time Stop Time Status Last Admin Dose Admin Acetaminophen 650 mg Q6HP PRN PO 02/19/25 13:45 03/09/25 21:36 650 MG Diagnostic Test (Pha) 1 strip ACHS 02/19/25 17:00 04/10/25 06:52 1 STRIP Dextrose 50 ml UD PRN IV 02/19/25 15:45 03/14/25 21:04 50 ML Potassium Chloride 100 ml @ 50 mls/hr Q2H IV 02/19/25 23:15 02/20/25 05:14 Cancel Potassium Chloride 100 ml @ 50 mls/hr Q2H IV 02/20/25 07:15 02/20/25 11:14 UNV Calcium Acetate 1,334 mg TIDWMEALS PO 03/04/25 12:00 04/10/25 08:27 1,334 MG Ergocalciferol 50,000 unit Q7D PO 03/04/25 11:45 03/25/25 15:05 50,000 UNIT Zirconium Oxide 10 gm TID PO 03/07/25 14:00 Cancel Sodium Bicarbonate 50 ml/ Sodium Chloride 1,050 ml @ 100 mls/hr [id number] IV 03/07/25 11:45 Cancel Pantoprazole Sodium 40 mg BID IV 03/13/25 10:00 04/10/25 09:48 40 MG Albuterol 2.5 mg Q6HR NEB 03/13/25 12:00 04/10/25 06:18 2.5 MG Ipratropium [place] 0.5 mg Q6HR NEB 03/13/25 12:00 04/10/25 06:18 0.5 MG Saccharomyces Boulardii 250 mg DAILY PO 03/14/25 10:00 04/10/25 09:45 250 MG Atorvastatin Calcium 80 mg HS PO 03/24/25 22:00 04/09/25 22:17 80 MG Enoxaparin Sodium 40 mg DAILY SC 03/25/25 10:00 04/10/25 09:52 40 MG Aspirin 81 mg DAILY NG 03/25/25 10:00 04/10/25 09:46 81 MG Insulin Human Regular ACHS SC 03/30/25 22:00 04/10/25 06:52 3 UNITS Guaifenesin 200 mg Q4HP PRN PO 04/01/25 16:00 04/01/25 22:16 200 MG Vancomycin HCl 0 ml @ 0 mls/hr UD IV 04/02/25 18:30 04/14/25 18:30 Ceftolozane/ Tazobactam 1.5 gm/ Dextrose 100 ml @ 100 mls/hr Q8HR IV 04/03/25 14:00 04/10/25 13:59 04/10/25 05:24 100 MLS/HR Ondansetron HCl 4 mg Q8HP PRN PO 04/05/25 15:30 Fentanyl Citrate 250 ml @ 2.5 mls/hr Q24H IV 04/06/25 11:00 04/09/25 20:14 7.5 MLS/HR Dextrose 1,000 ml @ 75 mls/hr [id number] IV 04/07/25 07:45 04/09/25 20:14 75 MLS/HR Norepinephrine Bitartrate 250 ml @ 3.75 mls/hr Q24H IV 04/08/25 02:30 04/08/25 02:37 3.75 MLS/HR Enteral Nutritional Formula 1,000 ml 30ML/HR GT 04/08/25 09:30 Propofol 100 ml @ 2.232 mls/ hr Q24H IV 04/08/25 16:45 04/10/25 05:50 15.624 MLS/HR objective The patient is well-nourished and well-developed with no distress. The patient is intubated MENTAL STATUS: Subjective CRANIAL NERVES: Pupils are equal, round and reactive.There are corneal reflexes and doll's eyes phenomenon. No signs of facial weakness. There are gagging or coughing reflexes SENSATION: No responses to pain stimuli. MOTOR: Normal tone in the upper and lower extremity. Normal muscle bulk. No fasciculations. No spontaneous movement. REFLEXES: Deep tendon reflexes are symmetrical. No pathological reflexes. CEREBELLAR/COORDINATION: Deferred GAIT/STATION: deferred. laboratory and microbiology Laboratory Tests 04/10/25 04:40 Test 04/10/25 04:40 Range/Units Serum Glucose 161 H 74-106 mg/dL Problem List Acute respiratory failure, reintubated on 04/06/2025 Excessive nasal bleeding Come company resolved Metabolic encephalopathy Hypoxic encephalopathy Toxic encephalopathy Left hemiparesis secondary stroke Left homonymous hemianopsia secondary to stroke General weakness Multiple acute/subacute strokes (MRI head: 02/19/2025, 03/21/2025) Status post right BKA Depression Assessment/Plan Monitoring Supportive treatment ICU Stabilize vitals Respiratory support/vent management Oxygen Antibiotics Aspirin 81 mg daily Lipitor 80mg Qd Cymbalta 30 mg b.i.d. DVT prophylaxis/Lovenox Quit tobacco smoking completely She needs tracheostomy and feeding tube insertion More recommendation per clinical course This medical document was created using an electronic medical record system with [employer] dictation system. Although this document has been carefully reviewed, there may still be some phonetic and typographical errors. These areas are purely typographical due to imperfections of the software programs, and do not reflect any compromise in the patient's medical care. Prognosis guarded Dietary Evaluation Review Comments: 1) Esau 1 pk BID 2) Refer [employer] on DC 3) Continue current plan of care Expected Outcomes/Goals: Pt will meet >75% estimated needs Fu 3-5 days Plan discussed with: Other NEELA RUEDA MD April 10, 2025 10:31
--- NOTE | 2025-04-10 14:53 | DVHPN2 ---
Progress Note - Dictate Date Seen: April 10, 2025 Medical Necessity Reason Pt with a Central, PICC or Fol: Yes The following are medically ne: Acosta Catheter Reason for acosta catheter: Strict I&O Subjective Patient was seen and evaluated in follow up in the ICU. Patient is intubated and sedated on ventilator. 30% FiO2. Patient is responsive to light physical touch. Patient intermittently opens eyes and moves her hands. Patient does not follow verbal commands. HGB 8.4, HCT 25.6, NA 134, CL 109, CO2 17, BUN 27, WARP YARN SORTER 1.49, CA 8. Chest x-ray showed cardiomegaly with mild congestion. vital signs Vital Sign Date Time Temp Pulse Resp B/P (MAP) Pulse Ox O2 Delivery O2 Flow Rate FiO2 04/10/25 11:30 97.9 79 20 104/58 (73) 100 208.2 04/10/25 10:20 30 04/10/25 10:00 Mechanical Ventilator+ 04/09/25 06:00 0 Total Intake and Output 04/09/25 04/09/25 04/10/25 15:00 23:00 07:00 Intake Total 959.8 ml 1094.920 ml 1076.868 ml Output Total 0 ml 1950 ml 1450 ml Balance 959.8 ml -855.080 ml -373.132 ml medications Current Medications Medications Dose Ordered Sig/John Route Start Time Stop Time Status Last Admin Dose Admin Acetaminophen 650 mg Q6HP PRN PO 02/19/25 13:45 03/09/25 21:36 650 MG Diagnostic Test (Pha) 1 strip ACHS 02/19/25 17:00 04/10/25 06:52 1 STRIP Dextrose 50 ml UD PRN IV 02/19/25 15:45 03/14/25 21:04 50 ML Potassium Chloride 100 ml @ 50 mls/hr Q2H IV 02/19/25 23:15 02/20/25 05:14 Cancel Potassium Chloride 100 ml @ 50 mls/hr Q2H IV 02/20/25 07:15 02/20/25 11:14 UNV Calcium Acetate 1,334 mg TIDWMEALS PO 03/04/25 12:00 04/10/25 08:27 1,334 MG Ergocalciferol 50,000 unit Q7D PO 03/04/25 11:45 03/25/25 15:05 50,000 UNIT Zirconium Oxide 10 gm TID PO 03/07/25 14:00 Cancel Sodium Bicarbonate 50 ml/ Sodium Chloride 1,050 ml @ 100 mls/hr [id number] IV 03/07/25 11:45 Cancel Pantoprazole Sodium 40 mg BID IV 03/13/25 10:00 04/10/25 09:48 40 MG Albuterol 2.5 mg Q6HR NEB 03/13/25 12:00 04/10/25 06:18 2.5 MG Ipratropium Sanders 0.5 mg Q6HR NEB 03/13/25 12:00 04/10/25 06:18 0.5 MG Saccharomyces Boulardii 250 mg DAILY PO 03/14/25 10:00 04/10/25 09:45 250 MG Atorvastatin Calcium 80 mg HS PO 03/24/25 22:00 04/09/25 22:17 80 MG Enoxaparin Sodium 40 mg DAILY SC 03/25/25 10:00 04/10/25 09:52 40 MG Aspirin 81 mg DAILY NG 03/25/25 10:00 04/10/25 09:46 81 MG Insulin Human Regular ACHS SC 03/30/25 22:00 04/10/25 06:52 3 UNITS Guaifenesin 200 mg Q4HP PRN PO 04/01/25 16:00 04/01/25 22:16 200 MG Vancomycin HCl 0 ml @ 0 mls/hr UD IV 04/02/25 18:30 04/14/25 18:30 Ceftolozane/ Tazobactam 1.5 gm/ Dextrose 100 ml @ 100 mls/hr Q8HR IV 04/03/25 14:00 04/10/25 13:59 04/10/25 05:24 100 MLS/HR Ondansetron HCl 4 mg Q8HP PRN PO 04/05/25 15:30 Fentanyl Citrate 250 ml @ 2.5 mls/hr Q24H IV 04/06/25 11:00 04/09/25 20:14 7.5 MLS/HR Dextrose 1,000 ml @ 75 mls/hr [id number] IV 04/07/25 07:45 04/10/25 11:00 75 MLS/HR Norepinephrine Bitartrate 250 ml @ 3.75 mls/hr Q24H IV 04/08/25 02:30 04/08/25 02:37 3.75 MLS/HR Enteral Nutritional Formula 1,000 ml 30ML/HR GT 04/08/25 09:30 Propofol 100 ml @ 2.232 mls/ hr Q24H IV 04/08/25 16:45 04/10/25 05:50 15.624 MLS/HR objective GENERAL: Ill appearing, intubated on ventilator. EYES: PERRL, EOMI. Anicteric. HENT: Moist mucous membranes. LUNGS: Decreased breath sounds. CARDIOVASCULAR: Regular rate and rhythm. ABDOMEN: Soft, non-tender and non-distended. EXTREMITIES: No edema. SKIN: Warm, dry. laboratory and microbiology Laboratory Tests 04/10/25 04:40 Test 04/10/25 04:40 Range/Units Serum Glucose 161 H 74-106 mg/dL Problem List Multiple acute/subacute strokes. Hypokalemia. Acute kidney injury. Hypertension, newly diagnosed. Insulin-dependent diabetes mellitus. Status post right BKA. Dyslipidemia. Polysubstance use disorder. Left lower extremity cellulitis. Peripheral vascular disease status post right [id number] amputation 6 months ago. Sepsis. Diabetic neuropathy. Assessment/Plan Continued all current supportive medical care. Aspirin, Lipitor. IV antibiotics as ordered. DVT and GI prophylactics. Vasopressors for hemodynamic support. Additional plan as per the hospital course. Critical care time of 45 minutes provided to include time spent evaluation of patient at bedside, when appropriate patient/family education for diagnosis, treatment plan, review of pertinent medical information and discussion of care with specialty providers and PCP. Mechanical ventilator parameters, treatment and adjustments have personally been reviewed by me and treatment plan by food production machine operator has also been reviewed. Dietary Evaluation Review Comments: 1) Esau 1 pk BID 2) Refer Registered Health Nurse on DC 3) Continue current plan of care Expected Outcomes/Goals: Pt will meet >75% estimated needs Fu 3-5 days Plan discussed with: Other YANIRA WINN MD April 10, 2025 11:50
--- NOTE | 2025-04-10 16:00 | DVHPN2 ---
Consult Progress Note Date Seen: April 09, 2025 Subjective Patient reports: Other (off pressers intirely , had a hemoglobin drop today as well as after a unit of blood has come up to 7.3 . no overt signs of bleeding from ET tube or stool ) Objective vital signs Vital Sign Date Time Temp Pulse Resp B/P (MAP) Pulse Ox O2 Delivery O2 Flow Rate FiO2 04/10/25 14:51 81 18 117/67 (84) 100 30 04/10/25 14:18 Mechanical Ventilator+ 04/10/25 13:45 98.6 209.5 04/09/25 06:00 0 Total Intake and Output 04/09/25 04/09/25 04/10/25 15:00 23:00 07:00 Intake Total 959.8 ml 1094.920 ml 1175.328 ml Output Total 0 ml 1950 ml 1450 ml Balance 959.8 ml -855.080 ml -274.672 ml medications Current Medications Medications Dose Ordered Sig/John Route Start Time Stop Time Status Last Admin Dose Admin Acetaminophen 650 mg Q6HP PRN PO 02/19/25 13:45 03/09/25 21:36 650 MG Diagnostic Test (Pha) 1 strip ACHS 02/19/25 17:00 04/10/25 11:52 1 STRIP Dextrose 50 ml UD PRN IV 02/19/25 15:45 03/14/25 21:04 50 ML Potassium Chloride 100 ml @ 50 mls/hr Q2H IV 02/19/25 23:15 02/20/25 05:14 Cancel Potassium Chloride 100 ml @ 50 mls/hr Q2H IV 02/20/25 07:15 02/20/25 11:14 UNV Calcium Acetate 1,334 mg TIDWMEALS PO 03/04/25 12:00 04/10/25 12:23 1,334 MG Ergocalciferol 50,000 unit Q7D PO 03/04/25 11:45 03/25/25 15:05 50,000 UNIT Zirconium Oxide 10 gm TID PO 03/07/25 14:00 Cancel Sodium Bicarbonate 50 ml/ Sodium Chloride 1,050 ml @ 100 mls/hr [id number] IV 03/07/25 11:45 Cancel Pantoprazole Sodium 40 mg BID IV 03/13/25 10:00 04/10/25 09:48 40 MG Albuterol 2.5 mg Q6HR NEB 03/13/25 12:00 04/10/25 12:19 2.5 MG Ipratropium Edward 0.5 mg Q6HR NEB 03/13/25 12:00 04/10/25 12:19 0.5 MG Saccharomyces Boulardii 250 mg DAILY PO 03/14/25 10:00 04/10/25 09:45 250 MG Atorvastatin Calcium 80 mg HS PO 03/24/25 22:00 04/09/25 22:17 80 MG Enoxaparin Sodium 40 mg DAILY SC 03/25/25 10:00 04/10/25 09:52 40 MG Aspirin 81 mg DAILY NG 03/25/25 10:00 04/10/25 09:46 81 MG Insulin Human Regular ACHS SC 03/30/25 22:00 04/10/25 06:52 3 UNITS Guaifenesin 200 mg Q4HP PRN PO 04/01/25 16:00 04/01/25 22:16 200 MG Vancomycin HCl 0 ml @ 0 mls/hr UD IV 04/02/25 18:30 04/14/25 18:30 Ondansetron HCl 4 mg Q8HP PRN PO 04/05/25 15:30 Fentanyl Citrate 250 ml @ 2.5 mls/hr Q24H IV 04/06/25 11:00 04/09/25 20:14 7.5 MLS/HR Dextrose 1,000 ml @ 75 mls/hr [id number] IV 04/07/25 07:45 04/10/25 11:00 75 MLS/HR Norepinephrine Bitartrate 250 ml @ 3.75 mls/hr Q24H IV 04/08/25 02:30 04/08/25 02:37 3.75 MLS/HR Enteral Nutritional Formula 1,000 ml 30ML/HR GT 04/08/25 09:30 Propofol 100 ml @ 2.232 mls/ hr Q24H IV 04/08/25 16:45 04/10/25 12:17 15.624 MLS/HR laboratory and microbiology Laboratory Tests 04/10/25 04:40 Test 04/10/25 04:40 Range/Units Serum Glucose 161 H 74-106 mg/dL Problem List/Assessment/Plan Problems(with codes): (1) Intractable vomiting (2) Acute abdominal pain (3) Uncontrolled diabetes mellitus (4) UTI (urinary tract infection) (5) Sepsis (6) TATIANNA (acute kidney injury) (7) Substance abuse Problem List/Assessment/Plan Pneumonia ESBL Klebsiella, Carbapenemic resistant Pseudomonas positive sputum culture , possible due to ventilator associated pneumonia Sepsis probably due to above Left patellar bursitis, I&D w bursectomy performed on 03/07/25 Left knee culture growing MSSA Left foot ulcer, dorsal aspect Multiple acute-subacute strokes Ruled out C diff colitis Hypokalemia TATIANNA on CKD Peripheral arterial disease s/p R BKA 6 months ago Type 2 diabetes, uncontrolled Diabetic neuropathy Angioedema of the tongue Patient is a 64 year old female with a past medical history of diabetes, left foot ulcer , hypertension , hyperlipidemia , anxiety , peripheral arterial disease , depression , presents with left sided weakness and mild dysarthria . Had a brain MRI revealing multiple small falsi of acute to subacute infarcts in the right coronary radiata and right basal ganglia. Underwent MAGALIS which showed no masses or vegetation . Bubble study was negative , valve restriction is normal . Patient was intubated on 03/13 and a rapid was called . Intubated due to airway protection and excavated on 03/26. but then shortly reintubated due to possible right lower lobe aspiration.Is now on 2 liters nasal canula and has left knee swelling ,erythema , cultures were growing MSSA , however on Clindamycin and irrigation and debridement of left patella on 03/07. She is noting having some diarrhea, with some left knee swelling persistent after debridement . Surgical roxanne are clean and left upper extremity swelling is noted . Crackles in the lungs and is tachycardic Assessment: 04/02:Patient is growing pseudomonas , ESBL klebsiella on sputum culture likely due to hospital acquired pneumonia. possible C diff colitis. As well as an MSSA left knee bursitis that has yet to be treated with appropriate antibiotics. Patient has peripheral arterial disease and right decay and uncontrolled diabetes 04/03: patient is doing better , diarrhea has significantly improved and tolerating antibiotics without any fevers or chills . Patient is a bit drowsy . Patient has some mild angioedema of the tongue . C diff testing is negative 04/04: Patient was seen by Dr Velasco and tolerating diet. Agree with Dr. Velasco findings . Not having any worsening diarrhea 04/05: having diarrhea with antibiotic therapy , most recent chest xray shows lung bases that are unremarkable. clinically stable and worsening confusion and immunity , possible aspiration 04/06: patient has ongoing diarrhea as potential source of worsening septic picture . Patient was found to be hypoxic and confused yesterday possible related to acute aspiration event and possible mucus plugging as patient also refused chest pt. 04/07: presser needs are coming down , suspect aspiration event 04/08: required blood transfusion for hemoglobin 6.9 , unclear if this is due to a real bleed and will continue to monitor for signs of bleeding . Chest xray shows cardiomegaly with mild signs of congestion . Head CT shows right posterior frontal periventricular white matter disease , likely subacute to few small old infacts bilateral basal gangular thats greater on the right side. Cultures are currently with moderate gram negative rods in the sputum and blood cultures are no growth to date 04/09: Culture continues to show moderate gram negative jw in the sputum , awaiting speciation . would be concerned [id number] is not being adequately treated for gram negative jw infection in the sputum previously . Plan: - increase dose of zerbaxa to 3 grams every 8 hours - consider bronchoscopy and deeper sputum cultures and BAL culture if patient is to get a bronchoscopy to asses for airway clearance, defer to pulmonology on this - recommend repeating blood culture and urine culture and stool culture - recommend KUB to further evaluate for colitis - would consider broadening out to fetroza to cover multi drug resistant organism if hypoxia persists - would empirically restart Flagyl in the event of possible aspiration with anaerobic being covered by zerbaxa alone - Continue IV vancomycin for MSSA left knee cellulitis - Continue Zerbaxa for hospital acquired pneumonia for at least 7 days and once completed and oral antibiotic for patients septic arthritis is a possibility , can potentially change to oral Bactrim once zerbaxa coarse has been completed tentatively 04/10/25 - no need for additional workup at this time Authorized and Performed by: Katerine Hughes Total critical care time: Approximately 76 minutes Due to a high probability of clinically significant, life threatening deterioration, the patient required my highest level of preparedness to intervene emergently and I personally spent this critical care time directly and personally managing the patient. This critical care time included obtaining a history; examining the patient; pulse oximetry; ordering and review of studies; arranging urgent treatment with development of a management plan; evaluation of patient's response to treatment; frequent reassessment; and, discussions with other providers. This critical care time was performed to assess and manage the high probability of imminent, life-threatening deterioration that could result in multi-organ failure. It was exclusive of separately billable procedures and treating other patients and teaching time. Plan discussed with: Other Dietary Evaluation Review Comments: 1) Esau 1 pk BID 2) Refer Business Administration Program Chair on DC 3) Continue current plan of care Expected Outcomes/Goals: Pt will meet >75% estimated needs Fu 3-5 days KATERINE HUGHES MD April 10, 2025 16:00
--- NOTE | 2025-04-10 16:44 | DVHINCON2 ---
Date of service: April 10, 2025 Family History: Cancer Aunt Family history: Diabetes mellitus Grandfather Allergies: Coded Allergies: NO KNOWN ALLERGIES (Unverified , 01/27/21) Home Meds Active Scripts Buspirone Hcl (Buspirone Hcl) 5 Mg Tab, 1 TAB PO BID, #60 TAB 2 Refills Prov:DOMENICA SHAH MD 04/14/24 Pantoprazole Sodium Sesquihydr (Protonix) 40 Mg Tab, 40 MG PO DAILY for 30 Days, #30 TAB Prov:LEONARDO JACKSON MD 04/11/22 Olanzapine (OLANZAPINE) 5 Mg Tab, 5 MG PO DAILY for 30 Days, #30 TAB Prov:JOAQUIN ISAAC MD 05/09/20 Reported Medications Duloxetine HCl (Duloxetine HCl) 30 Mg Cap, 1 CAP PO DAILY 02/19/25 Atorvastatin Calcium (ATORVASTATIN CALCIUM) 40 Mg Tab, 1 TAB PO DAILY 02/19/25 Gemfibrozil (Gemfibrozil) 600 Mg Tab, 1 TAB PO BIDWM 02/19/25 Lamotrigine (Lamotrigine) 25 Mg Tab, 1 TAB PO DAILY 02/19/25 Hydroxyzine Hcl (Hydroxyzine Hcl) 25 Mg Tab, 1 TAB PO DAILY 02/19/25 Empagliflozin (Jardiance) 10 Mg Tab, 1 TAB PO DAILY 06/05/24 Ondansetron HCl (Ondansetron) 4 Mg Tab, 1 TAB PO BID PRN 06/05/24 Pioglitazone Hydrochloride (ACTOS TABLET) 30 Mg Tb, 1 TAB PO DAILY 06/05/24 Insulin Lispro (Insulin Lispro Kwikpen) 100 Unit/Ml Inj, UNITS SC 06/05/24 Insulin Glargine (Basaglar Kwikpen) 100 Unit/Ml Inj, UNITS SC 06/05/24 Tramadol Hcl (Tramadol Hcl) 50 Mg Tab, 1 TAB PO Q6HR 04/06/22 Vital Signs Vital Signs Date Time Temp Pulse Resp B/P (MAP) Pulse Ox O2 Delivery O2 Flow Rate FiO2 04/10/25 15:59 81 22 130/73 (92) 100 30 04/10/25 14:18 Mechanical Ventilator+ 04/10/25 13:45 98.6 209.5 04/09/25 06:00 0 Labs/Diagnostic Data Labs Test 04/10/25 11:17 04/10/25 08:55 04/10/25 04:40 04/09/25 05:37 Range/Units POC Glucose 110 H 70-106 mg/dl Blood Gas Specimen Type Arterial Blood Gas Sample Site Left radial Blood Gas Patient Temperature 37.0 Arterial Blood Date Drawn [id number] Arterial Blood pH 7.305 L 7.350-7.450 Arterial Blood Partial Pressure CO2 31.2 L 32.0-45.0 mmHg Arterial Blood Partial Pressure O2 88.1 83.0-108.0 mmHg Arterial Blood HCO3 15.2 L 21.0-28.0 mmol/L Arterial Blood Oxygen Saturation 95.9 94.0-98.0 % Arterial Blood Base Excess -10.1 L -2.0-3.0 mmol/L Arterial Blood Oxyhemoglobin 95.3 94.0-98.0 % Arterial Blood Carboxyhemoglobin 0.2 L 0.5-1.5 % Arterial Blood Methemoglobin 0.4 0.0-1.5 % Fermin Test Modified Blood Gas Total Hemoglobin 9.70 L 12.0-16.0 g/dL Blood Gas Set Respiration Rate 18.0 Blood Gas Modality Vent - ac FiO2 % 30.0 Blood Gas Tidal Volume 400.0 Blood Gas PEEP or CPAP 5.0 White Blood Count 6.5 4.4-10.8 10^3/uL Red Blood Count 2.93 L 4.0-5.20 10^6/uL Hemoglobin 8.4 #L 12.2-16.2 g/dL Hematocrit 25.6 #L 36.0-46.0 % Mean Corpuscular Volume 87.3 80.0-100.0 fL Mean Corpuscular Hemoglobin 28.8 28.0-32.0 pg Mean Corpuscular Hemoglobin Concent 33.0 32.0-36.0 g/dL Red Cell Distribution Width 17.0 H 11.8-14.3 % Platelet Count 349 140-450 10^3/uL Mean Platelet Volume 8.1 6.9-10.8 fL Neutrophils (%) (Auto) 66.5 37.0-80.0 % Lymphocytes (%) (Auto) 23.1 10.0-50.0 % Monocytes (%) (Auto) 6.7 0.0-12.0 % Eosinophils (%) (Auto) 3.0 0.0-7.0 % Basophils (%) (Auto) 0.7 0.0-2.0 % Neutrophils # (Auto) 4.3 1.6-8.6 10 ^3/uL Lymphocytes # (Auto) 1.5 0.4-5.4 10 ^3/uL Monocytes # (Auto) 0.4 0-1.3 10 ^3/uL Eosinophils # (Auto) 0.2 0-0.8 10 ^3/uL Basophils # (Auto) 0 0-0.2 10 ^3/uL Nucleated Red Blood Cells 0.0 % Sodium Level 134 L 136-145 mmol/L Potassium Level 4.3 3.5-5.1 mmol/L Chloride Level 109 H 98-107 mmol/L Carbon Dioxide Level 17 L 20-31 mmol/L Anion Gap 8 5-15 Blood Urea Nitrogen 27 H 9-23 mg/dL Creatinine 1.49 H 0.550-1.02 mg/dL Glomerular Filtration Rate Calc 41 >90 mL/min BUN/Creatinine Ratio 18.1 10.0-20.0 Serum Glucose 161 H 74-106 mg/dL Calcium Level 8.0 L 8.7-10.4 mg/dL Random Vancomycin Level 15.4 H 5-10 ug/mL Blood Gas Spontaneous Rate 21 Blood Gas Critical Value Read Back Yes Blood Gas Notified Whom Md. cal harkins Blood Gas Notified Time [id number] Blood Gas Notified By Rt jayshree medina Test 04/09/25 05:00 04/07/25 05:11 04/06/25 16:30 04/06/25 12:55 Range/Units Total Bilirubin < 0.2 L 0.2-1.0 mg/dL Aspartate Amino Transferase (AST) 10 L 13-40 U/L Alanine Aminotransferase (ALT) 9 7-40 U/L Alkaline Phosphatase 127 H 46-116 U/L Total Protein 4.3 L 5.7-8.2 g/dL Albumin 2.0 L 3.2-4.8 g/dL Phosphorus Level 3.2 2.4-5.1 mg/dL Magnesium Level 1.7 1.6-2.6 mg/dL Vancomycin Level Trough 27.4 H 5-10 ug/mL Lactic Acid Level 1.5 0.4-2.0 mmol/L Test 04/06/25 11:00 04/01/25 08:30 03/30/25 07:19 03/26/25 18:45 Range/Units Prothrombin Time 11.9 H 9.3-11.8 sec Prothrombin Time INR 1.14 0.9-1.15 Activated Partial Thromboplast Time 37.9 H 24.5-34.5 SEC Ammonia < 10 L 11-32 umol/L B-Type Natriuretic Peptide 153.96 0-100 pg/mL Venous Blood pH 7.441 H 7.320-7.430 Venous Blood pCO2 at Patient Temp 23.4 L 38.0-54.0 mmHg Venous Blood pO2 at Patient Temp 41.2 23.0-48.0 mmHg Venous Blood HCO3 15.6 L 22.0-29.0 mmol/L Venous Blood Base Excess -6.3 L -2.0-3.0 mmol/L Blood Gas EPAP 7 Blood Gas IPAP 12 Blood Gas Spontaneous Tidal Volume 392 Blood Gas Inspiratory Pressure 18.0 Bl Gas Inspiratory/Expiratory Ratio 1:1.9 Test 03/26/25 10:24 03/25/25 04:40 03/22/25 05:17 03/20/25 21:45 Range/Units Blood Gas Pressure Support 8 Triglycerides Level 214 H < 150 mg/dL Differential Total Cells Counted 100.0 100 Neutrophils % (Manual) 80 37.0-80.0 Band Neutrophils % (Manual) 2 Lymphocytes % (Manual) 13 10.0-50.0 Monocytes % (Manual) 4 0-12 Eosinophils % (Manual) 1 0-7 Basophils % (Manual) 0 0.0-2.0 Metamyelocytes % (manual) 0 Myelocytes % (Manual) 0 Promyelocytes % (Manual) 0 Blast Cells % (Manual) 0 Reactive Lymphocytes 0 Platelet Estimate Increased Anisocytosis (manual) Slight Test 03/16/25 04:35 03/13/25 02:35 03/07/25 05:23 03/06/25 04:52 Range/Units Lactate Dehydrogenase 355 H 120-246 U/L D-Dimer, Quantitative 2.32 H 0.0-0.49 mg/L FEU [place] Cells Few Erythrocyte Sedimentation Rate 116 H 0-20 mm/hr C-Reactive Protein High Sensitivity 5.00 H <1.0 mg/dL Test 03/04/25 05:00 03/03/25 14:09 03/03/25 04:41 4/6/25 05:58 Range/Units Urine Creatinine 25.51 L 30.0-125.0 mg/dL Urine Protein/Creatinine Ratio 14.00 Urine Sodium 80 40-220 mmol/L Urine Total Protein 357.1 H 1-14 mg/dL Vitamin D 25-Hydroxy 7.2 L 30.0-100 ng/mL Parathyroid Hormone (Intact) 28.5 18.4-80.1 pg/mL Beta HCG, Quantitative 1.2 L 1.5-4.2 mIU/mL Test 02/25/25 12:42 02/23/25 13:36 02/21/25 15:30 02/20/25 06:00 Range/Units Body Fluid Source Knee fluid Body Fluid pH 8.0 Body Fluid WBC (Manual) 225 H 0-200 CUMM Body Fluid RBC (Manual) 325 0-2000 CUMM Body Fluid Mononuclear Cells 10 % Body Fluid Polymorphonuclear Cells 90 H 0-25 % Body Fluid Glucose 112 . mg/dL Anti-Nuclear Antibody Comment Comment . Cytoplasmic ANCA (c-ANCA) Antibody <1:20 Neg:<1:20 titer Anti-Proteinase 3 (c-ANCA) <0.2 0.0-0.9 units Atypical p-ANCA <1:20 Neg:<1:20 titer Perinuclear ANCA (p-ANCA) Antibody <1:20 Neg:<1:20 titer Myeloperoxidase Antibody <0.2 0.0-0.9 units NATALIIA-1 Antibody <0.2 0.0-0.9 AI SS-A/Ro Antibody <0.2 0.0-0.9 AI SS-B/La Antibody <0.2 0.0-0.9 AI Sm Antibody <0.2 0.0-0.9 AI SNAGGER Antibody <0.2 0.0-0.9 AI Scl-70 (Scleroderma) Antibody <0.2 0.0-0.9 AI Anti-Double Strand DNA Antibody <1 0-9 IU/mL Chromatin Antibody <0.2 0.0-0.9 AI Centromere B Antibody <0.2 0.0-0.9 AI Complement C3 172 H 82-167 mg/dL Complement C4 34 12-38 mg/dL Uric Acid 5.1 3.1-7.8 mg/dL Hemoglobin A1c 9.9 H <5.7 % A1C Cholesterol Level 304 H < 200 mg/dL LDL Cholesterol 207 H < 100 mg/dL HDL Cholesterol 38 L 40-59 mg/dL Beta-Hydroxybutyric Acid 0.922 H < 0.4 mmol/L Test 02/19/25 17:27 02/19/25 15:25 02/19/25 11:30 Range/Units Urine Color Colorless Yellow Urine Clarity Clear Clear Urine pH 6.5 5.0-9.0 Urine Specific [place] 1.008 1.001-1.035 Urine Protein 2+ H Negative Urine Ketones 1+ H Negative Urine Blood 1+ H Negative /uL Urine Nitrite Negative Negative Urine Bilirubin Negative Negative Urine Urobilinogen Normal Negative mg/dL Urine Leukocyte Esterase Negative Negative /uL Urine RBC 6 0 - 4 /hpf Urine Microscopic WBC 2 0-5 /HPF Urine Squamous Epithelial Cells Few <5 /hpf Urine Bacteria None seen None Seen /hpf Urine Glucose 2+ H Normal mg/dL Urine Opiates Screen Neg NEGATIVE Urine Fentanyl Screen Neg NEGATIVE Urine Barbiturates Screen Neg NEGATIVE Urine Phencyclidine Screen Neg NEGATIVE Urine Amphetamines Screen Neg NEGATIVE Urine Benzodiazepines Screen Neg NEGATIVE Urine Cocaine Screen Neg NEGATIVE Urine Cannabinoids Screen Pos NEGATIVE Troponin I High Sensitivity 25 </=34 ng/L Plasma/Serum Blood Alcohol < 3.0 <10 mg/dL Microbiology Date/Time Source Procedure Growth Status 04/06/25 20:35 Blood Blood Culture - Preliminary NO GROWTH AFTER 72 HOURS OF INCUBATION. Resulted 04/06/25 10:20 Sputum Gram Stain - Final Complete 04/06/25 10:20 Respiratory Culture - Final Klebsiella pneumoniae - ESBL Complete 04/02/25 13:00 Stool Clostridium difficile Toxin Assay - Final Complete 03/06/25 14:37 Knee Left Gram Stain - Final Complete 03/06/25 14:37 Knee Left Anaerobic Culture - Final Complete 03/06/25 14:37 Aerobic Culture - Final Staphylococcus aureus Complete 03/04/25 13:29 Aspirate Gram Stain - Final Complete 03/04/25 13:29 Body Fluid Culture - Final Staphylococcus aureus Complete 02/19/25 17:27 Urine - [place] Urine Culture - Final Complete Assessment [id number] VENTILATOR DEPENDENCE REPEAT LABS AM CONSIDER TRACHEOSTOMY AM BASED UPON CONSENT AND CLEARANCE Plan discussed with: Other YESI DREW MD April 10, 2025 16:44
[2025-04-10] MEDS: VANCOMYCIN 500mg/100mL 100 ML IV ONE (17:14)
--- NOTE | 2025-04-10 22:33 | DVHINCON2 ---
DATE OF CONSULTATION: 04/10/2025 HISTORY OF PRESENT ILLNESS: This patient is 54 years old. She is intubated. Unable to give history and then most of the information obtained from the chart and records. PAST MEDICAL HISTORY: Right BKA, hypertension, diabetes, anxiety, major depressive disorder, and she had 2 cardiac events and for that reason, she remains intubated. At this point, elective tracheostomy is being considered and I was asked to see her in regards to that. PAST SURGICAL HISTORY: Right BKA. PHYSICAL EXAMINATION: GENERAL: Currently intubated, afebrile. VITAL SIGNS: Stable signs. HEENT: With no evidence of pallor, sinus or jaundice. NECK: Supple, nontender with no thyromegaly, lymphadenopathy. CHEST AND LUNGS: Clear. HEART: Within normal limits. ABDOMEN: Soft. NEUROLOGIC: Not assessed. CLINICAL IMPRESSION: Ventilator dependence. PLAN: The plan would be to consider elective tracheostomy. The family was given consent after discussion on the phone and the plan will be to consider tracheostomy based upon her labs and clearance. MD AR Angulo/SARAH TID: [id number] RECEIPT: [id number] cc: JUSITN BONILLA
--- NOTE | 2025-04-10 23:00 | DVHPN2 ---
Progress Note - Dictate Date Seen: April 10, 2025 Medical Necessity Reason Pt with a Central, PICC or Fol: Yes The following are medically ne: Acosta Catheter Reason for acosta catheter: Strict I&O Subjective Patient seen and examined at bedside. Sedated, intubated on mechanical ventilator. Overnight events reviewed. vital signs Vital Sign Date Time Temp Pulse Resp B/P (MAP) Pulse Ox O2 Delivery O2 Flow Rate FiO2 04/10/25 22:15 75 18 116/66 (83) 100 30 04/10/25 18:17 Mechanical Ventilator+ 04/10/25 18:15 97.5 207.5 04/09/25 06:00 0 Total Intake and Output 04/09/25 04/09/25 04/10/25 15:00 23:00 07:00 Intake Total 959.8 ml 1094.920 ml 1175.328 ml Output Total 0 ml 1950 ml 1450 ml Balance 959.8 ml -855.080 ml -274.672 ml medications Current Medications Medications Dose Ordered Sig/John Route Start Time Stop Time Status Last Admin Dose Admin Acetaminophen 650 mg Q6HP PRN PO 02/19/25 13:45 03/09/25 21:36 650 MG Diagnostic Test (Pha) 1 strip ACHS 02/19/25 17:00 04/10/25 22:08 1 STRIP Dextrose 50 ml UD PRN IV 02/19/25 15:45 03/14/25 21:04 50 ML Potassium Chloride 100 ml @ 50 mls/hr Q2H IV 02/19/25 23:15 02/20/25 05:14 Cancel Potassium Chloride 100 ml @ 50 mls/hr Q2H IV 02/20/25 07:15 02/20/25 11:14 UNV Calcium Acetate 1,334 mg TIDWMEALS PO 03/04/25 12:00 04/10/25 17:31 1,334 MG Ergocalciferol 50,000 unit Q7D PO 03/04/25 11:45 03/25/25 15:05 50,000 UNIT Zirconium Oxide 10 gm TID PO 03/07/25 14:00 Cancel Sodium Bicarbonate 50 ml/ Sodium Chloride 1,050 ml @ 100 mls/hr [id number] IV 03/07/25 11:45 Cancel Pantoprazole Sodium 40 mg BID IV 03/13/25 10:00 04/10/25 22:08 40 MG Albuterol 2.5 mg Q6HR NEB 03/13/25 12:00 04/10/25 18:08 2.5 MG Ipratropium [place] 0.5 mg Q6HR NEB 03/13/25 12:00 04/10/25 18:08 0.5 MG Saccharomyces Boulardii 250 mg DAILY PO 03/14/25 10:00 04/10/25 09:45 250 MG Atorvastatin Calcium 80 mg HS PO 03/24/25 22:00 04/10/25 22:08 80 MG Enoxaparin Sodium 40 mg DAILY SC 03/25/25 10:00 04/10/25 09:52 40 MG Aspirin 81 mg DAILY NG 03/25/25 10:00 04/10/25 09:46 81 MG Insulin Human Regular ACHS SC 03/30/25 22:00 04/10/25 22:09 2 UNITS Guaifenesin 200 mg Q4HP PRN PO 04/01/25 16:00 04/01/25 22:16 200 MG Vancomycin HCl 0 ml @ 0 mls/hr UD IV 04/02/25 18:30 04/14/25 18:30 Ondansetron HCl 4 mg Q8HP PRN PO 04/05/25 15:30 Fentanyl Citrate 250 ml @ 2.5 mls/hr Q24H IV 04/06/25 11:00 04/09/25 20:14 7.5 MLS/HR Dextrose 1,000 ml @ 75 mls/hr [id number] IV 04/07/25 07:45 04/10/25 11:00 75 MLS/HR Norepinephrine Bitartrate 250 ml @ 3.75 mls/hr Q24H IV 04/08/25 02:30 04/08/25 02:37 3.75 MLS/HR Enteral Nutritional Formula 1,000 ml 30ML/HR GT 04/08/25 09:30 Propofol 100 ml @ 2.232 mls/ hr Q24H IV 04/08/25 16:45 04/10/25 22:14 15.624 MLS/HR objective Gen.: Patient lying in bed in medical ICU. Sedated, intubated on mechanical ventilator. Head: Normocephalic, atraumatic. Eyes: PERRLA. Ears: Normal external anatomy. Throat: Endotracheal tube and orogastric tube in place. Neck: Supple, trachea midline. Chest: Transmitted breath sounds bilaterally. Decreased air entry bilaterally. No wheezing. Bibasilar crackles. Cardiovascular: Positive S1, positive S2. Regular rate and rhythm. Abdomen: Positive bowel sounds in all 4 quadrants. Soft, nontender, nondistended. : Acosta in place. Normal external genitalia. Rectal: Deferred. Skin: Warm, dry. Intact. Extremities: 2+ radial pulses bilaterally. No lower extremity edema. Right BKA. Neuro: Sedated. laboratory and microbiology Laboratory Tests 04/10/25 04:40 Test 04/10/25 04:40 Range/Units Serum Glucose 161 H 74-106 mg/dL Assessment/Plan Impression: Acute hypoxic respiratory failure On mechanical ventilator S/p cardiac arrest with ROSC Multiple acute/subacute strokes. Altered mental status Acute kidney injury. Hypertension, newly diagnosed. Insulin-dependent diabetes mellitus. Polysubstance use Peripheral vascular disease, s/p right BKA 6 months ago. Sepsis Events: Remains on mechanical ventilator AC mode with RR 18, VT 400, PEEP 5, FIO2 30% CXR reviewed, reveals cardiomegaly with mild congestion. Sedated on Propofol and Fentanyl drip. Off Levophed, hemodynamically stable. Plan for tracheostomy Monitor hemoglobin - trending up to 8.4 g/dL Head of bed elevation Aspiration precautions Continue bronchodilators Continue antibiotics. Follow up cultures On statin Tube feeds for nutritional support ABG reviewed, notable for acidemia Protonix BID for GI prophylaxis Lovenox for DVT prophylaxis Labs and imaging reviewed. Rest of plan as noted below. Plan: S/p cardiac arrest Intubated, on mechanical ventilator. AC mode with RR 18, VT 400, PEEP 5, FIO2 30% Titrate FIO2 to keep O2 saturation above 90%. VAP bundle. Daily ABG and CXR while intubated Sedate for ventilator synchrony HOB elevation Aspiration precautions Pressors as necessary for hemodynamic support Titrate to keep mean arterial pressure greater than 65 mmHg. Bronchodilators Continue antibiotics. F/u cultures. Accu-Cheks, ISS PRN. Monitor renal function Monitor electrolytes Supplement as needed Continue psych meds Tube feeds for nutritional support Pressors as necessary for hemodynamic support Titrate to keep mean arterial pressure greater than 65 mmHg. GI prophylaxis - Protonix. DVT prophylaxis - Lovenox. Prognosis: Poor given patient's multiple co-morbidities. Condition: Critical Rest of plan per hospitalist and other consultants. A total of 35 minutes of critical care time was spent reviewing the patient record, examining the patient, making a diagnostic and therapeutic plan, discussing this plan with the medical personnel, following up on diagnostic studies and following the patient for clinical stability excluding any and all procedures. At least 50% of this time was spent in direct, hssi-to-zltp contact. Thank you, FRANCISCO Alanis, for allowing me to participate in this patient's care. Further recommendations will depend on the patient's clinical course. Please do not hesitate to contact me if you have any questions or concerns. This medical document was created using an electronic medical record system with Linkage dictation system. Although these documentations are being carefully reviewed, there may still be some phonetic and typographical changes. The errors are purely typographical, due to imperfection on the software program, and do not reflect any compromise in the patient's medical care. Dietary Evaluation Review Comments: 1) Esau 1 pk BID 2) Refer Escalator Attendant on DC 3) Continue current plan of care Expected Outcomes/Goals: Pt will meet >75% estimated needs Fu 3-5 days Plan discussed with: Other (ASHLEY Pena) Critical Care Time(min): 35 LARRY HERRERA MD April 10, 2025 23:00
[2025-04-11] VITALS (98 sets, daily range): BP systolic 89–179; BP diastolic 48–99; PULSE 68–84; RESP 14–22; TEMP 97–99.3; O2SAT 90–100
--- NOTE | 2025-04-11 06:09 | DVH ---
EXAM: XR Chest, 1 View CLINICAL INDICATION: INTUBATED, PROCEDURE PREP TECHNIQUE: Frontal view of the chest. COMPARISON: XY CHEST PORTABLE on DOS: 04/10/25, XY CHEST PORTABLE on DOS: 04/09/25, XY CHEST PORTABLE on DOS: 04/08/25, XY CHEST PORTABLE on DOS: 04/07/25, XY CHEST PORTABLE on DOS: 04/06/25 FINDINGS: LUNGS AND PLEURAL SPACES: Bibasilar atelectasis or pneumonia. No pneumothorax. HEART: Unremarkable. No cardiomegaly. MEDIASTINUM: Unremarkable. Normal mediastinal contour. BONES/JOINTS: Unremarkable. No acute fracture. TUBES, LINES AND DEVICES: ETT is 6.6 cm from the caleb. Advancement may be beneficial. Left tank pherally inserted central catheter (PICC) tip in the superior vena cava. OTHER FINDINGS: . . IMPRESSION: 1. ETT is 6.6 cm from the caleb. Advancement may be beneficial. 2. Bibasilar atelectasis or pneumonia.
[2025-04-11 07:05] LABS: Base Excess -7.9 mmol/L (-2.0-3.0)
[2025-04-11 07:42] LABS: Anion Gap 8 (5-15); Potassium 4.2 mmol/L (3.5-5.1); Sodium 136 mmol/L (136-145)
[2025-04-11 07:43] LABS: Calcium 9.1 mg/dL (8.7-10.4)
[2025-04-11 07:48] LABS: Glucose 89 mg/dL (74-106)
[2025-04-11 07:51] LABS: Blood Urea Nitrogen 26 mg/dL (9-23); Carbon Dioxide 18 mmol/L (20-31); Chloride 110 mmol/L (98-107); INR 1.08 (0.9-1.15); Prothrombin Time 11.4 sec (9.3-11.8)
[2025-04-11 07:53] LABS: Basophils # (auto) 0.1 10 ^3/uL (0-0.2); Basophils % (auto) 1.1 % (0.0-2.0); Eosinophils # (auto) 0.3 10 ^3/uL (0-0.8); Hematocrit 27.3 % (36.0-46.0); Hemoglobin 8.8 g/dL (12.2-16.2); Lymphocytes # (auto) 1.4 10 ^3/uL (0.4-5.4); Mean Corpuscular Hemoglobin 28.5 pg (28.0-32.0); Mean Corpuscular Hgb Conc. 32.3 g/dL (32.0-36.0); Mean Corpuscular Volume 88.3 fL (80.0-100.0); Monocytes # (auto) 0.5 10 ^3/uL (0-1.3); Neutrophils # (auto) 3.1 10 ^3/uL (1.6-8.6); Neutrophils % (auto) 57.9 % (37.0-80.0); Nucleated Red Blood Cells % 0.1 %; Platelet Count (auto) 378 10^3/uL (140-450); Red Blood Cells 3.09 10^6/uL (4.0-5.20); Red Cell Distribution Width 17.3 % (11.8-14.3); White Blood Cell 5.3 10^3/uL (4.4-10.8)
--- NOTE | 2025-04-11 09:05 | DVHPN2 ---
Subjective Denies any symptoms Reviewed: Care Plan, H&P, Labs, Medications, Previous Orders, Radiology, Other (Consultations) Changes from previous H/P or p: No Changes General: Per HPI Objective Vitals Vital Signs Date Time Temp Pulse Resp B/P (MAP) Pulse Ox O2 Delivery O2 Flow Rate FiO2 04/11/25 08:00 81 04/11/25 08:00 30 04/11/25 08:00 18 100 Mechanical Ventilator+ 04/11/25 07:53 104/61 (75) 04/11/25 06:30 99.3 210.7 Intake/Output Intake and Output 04/11/25 07:00 Intake Total 2569.852 ml Output Total 3050 ml Balance -480.148 ml Intake Oral 100 ml IV Total 2253.852 ml Tube Feeding 216 ml Output Urine Total 3050 ml Exam Assess patient will sitting in her wheelchair. General Appearance: mild distress, Other (Chemically sedated) HEENT: Atraumatic, PERRLA Lungs: Clear to auscultation, Normal air movement, Other Cardiovascular: Regular rate, Normal S1, Normal S2 Abdomen: Normal bowel sounds, Soft Genitourinary: No Apparent Abnormalities, Other Extremities: Other Neuro: Cranial nerves 3-12 NL, Other Skin: Dry, Intact, Wounds Psych/Mental Status: Other Medications Current Medications Medications Dose Ordered Sig/John Route Start Time Stop Time Status Last Admin Dose Admin Acetaminophen 650 mg Q6HP PRN PO 02/19/25 13:45 03/09/25 21:36 650 MG Diagnostic Test (Pha) 1 strip ACHS 02/19/25 17:00 04/11/25 06:39 1 STRIP Dextrose 50 ml UD PRN IV 02/19/25 15:45 03/14/25 21:04 50 ML Potassium Chloride 100 ml @ 50 mls/hr Q2H IV 02/19/25 23:15 02/20/25 05:14 Cancel Potassium Chloride 100 ml @ 50 mls/hr Q2H IV 02/20/25 07:15 02/20/25 11:14 UNV Calcium Acetate 1,334 mg TIDWMEALS PO 03/04/25 12:00 04/10/25 17:31 1,334 MG Ergocalciferol 50,000 unit Q7D PO 03/04/25 11:45 03/25/25 15:05 50,000 UNIT Zirconium Oxide 10 gm TID PO 03/07/25 14:00 Cancel Sodium Bicarbonate 50 ml/ Sodium Chloride 1,050 ml @ 100 mls/hr [id number] IV 03/07/25 11:45 Cancel Pantoprazole Sodium 40 mg BID IV 03/13/25 10:00 04/10/25 22:08 40 MG Albuterol 2.5 mg Q6HR NEB 03/13/25 12:00 04/11/25 05:59 2.5 MG Ipratropium [place] 0.5 mg Q6HR NEB 03/13/25 12:00 04/11/25 05:59 0.5 MG Saccharomyces Boulardii 250 mg DAILY PO 03/14/25 10:00 04/10/25 09:45 250 MG Atorvastatin Calcium 80 mg HS PO 03/24/25 22:00 04/10/25 22:08 80 MG Enoxaparin Sodium 40 mg DAILY SC 03/25/25 10:00 04/10/25 09:52 40 MG Aspirin 81 mg DAILY NG 03/25/25 10:00 04/10/25 09:46 81 MG Insulin Human Regular ACHS SC 03/30/25 22:00 04/10/25 22:09 2 UNITS Guaifenesin 200 mg Q4HP PRN PO 04/01/25 16:00 04/01/25 22:16 200 MG Vancomycin HCl 0 ml @ 0 mls/hr UD IV 04/02/25 18:30 04/14/25 18:30 Ondansetron HCl 4 mg Q8HP PRN PO 04/05/25 15:30 Fentanyl Citrate 250 ml @ 2.5 mls/hr Q24H IV 04/06/25 11:00 04/11/25 01:07 7.5 MLS/HR Dextrose 1,000 ml @ 75 mls/hr [id number] IV 04/07/25 07:45 04/11/25 01:06 75 MLS/HR Norepinephrine Bitartrate 250 ml @ 3.75 mls/hr Q24H IV 04/08/25 02:30 04/08/25 02:37 3.75 MLS/HR Enteral Nutritional Formula 1,000 ml 30ML/HR GT 04/08/25 09:30 Propofol 100 ml @ 2.232 mls/ hr Q24H IV 04/08/25 16:45 04/11/25 03:15 15.624 MLS/HR Laboratory Results Laboratory Tests 04/11/25 07:09 Chemistry Test 04/11/25 07:09 Calcium Level 9.1 mg/dL (8.7-10.4) Coagulation Test 04/11/25 07:09 Prothrombin Time 11.4 sec (9.3-11.8) Prothrombin Time INR 1.08 (0.9-1.15) Activated Partial Thromboplast Time 37.0 SEC (24.5-34.5) H Urinalysis Test 02/19/25 17:27 03/04/25 05:00 Urine Color Colorless (Yellow) Urine Clarity Clear (Clear) Urine pH 6.5 (5.0-9.0) Urine Specific [place] 1.008 (1.001-1.035) Urine Protein 2+ (Negative) H Urine Ketones 1+ (Negative) H Urine Blood 1+ /uL (Negative) H Urine Nitrite Negative (Negative) Urine Bilirubin Negative (Negative) Urine Urobilinogen Normal mg/dL (Negative) Urine Leukocyte Esterase Negative /uL (Negative) Urine RBC 6 /hpf (0 - 4) Urine Microscopic WBC 2 /HPF (0-5) Urine Squamous Epithelial Cells Few /hpf (<5) Urine Bacteria None seen /hpf (None Seen) Urine Glucose 2+ mg/dL (Normal) H Urine Creatinine 25.51 mg/dL (30.0-125.0) L Urine Protein/Creatinine Ratio 14.00 Urine Sodium 80 mmol/L (40-220) Urine Total Protein 357.1 mg/dL (1-14) H Blood Gas Results Test 04/11/25 06:57 Arterial Blood pH 7.323 (7.350-7.450) FiO2 % 30.0 Microbiology Microbiology Date/Time Source Procedure Growth Status 04/06/25 20:35 Blood Blood Culture - Preliminary NO GROWTH AFTER 72 HOURS OF INCUBATION. Resulted 04/06/25 10:20 Sputum Gram Stain - Final Complete 04/06/25 10:20 Respiratory Culture - Final Klebsiella pneumoniae - ESBL Complete 04/02/25 13:00 Stool Clostridium difficile Toxin Assay - Final Complete 03/06/25 14:37 Knee Left Gram Stain - Final Complete 03/06/25 14:37 Knee Left Anaerobic Culture - Final Complete 03/06/25 14:37 Aerobic Culture - Final Staphylococcus aureus Complete 03/04/25 13:29 Aspirate Gram Stain - Final Complete 03/04/25 13:29 Body Fluid Culture - Final Staphylococcus aureus Complete 02/19/25 17:27 Urine - [place] Urine Culture - Final Complete Labs and/or images reviewed: Labs reviewed by me, Image(s) reviewed by me Assessment/Plan Assessment/Plan Impression: Multiple acute/subacute strokes Left lower extremity cellulitis Rule out left septic knee Hypokalemia Acute kidney injury likely hemodynamically mediated due to vasomotor nephropathy Chronic kidney disease Peripheral vascular disease status post right vznnx-rhe-gysk amputation 6 months ago Poorly controlled type 2 diabetes Sepsis Hypertension Mixed hyperlipidemia Polysubstance use disorder Diabetic neuropathy -? Suicidal ideation -septic bursitis with Staphylococcus aureus -septic shock Angioedema of the tongue -hyponatremia -patient with ESBL and CRE in the sputum -cardiac arrest Plan: -events: Possible tracheostomy today. -continue antibiotics per ID --hold tube feedings -hold vacation sedation today -hold anticoagulants -PUD prophylaxis -bronchodilators -continue PPI Repeat labs and chest x-ray in a.m. Critical care time spent with patient discussing and formulating plan of care: 90 minutes. This does not include time spent performing procedures. This medical document was created using an electronic medical record system with Ak?[employer] dictation system. Although this document has been carefully reviewed, there may still be some phonetic and typographical errors. These areas are purely typographical due to imperfections of the software programs, and do not reflect any compromise in the patient's medical care. Plan discussed with: Patient, Other (RN, mother) My Orders Orders - JUSTIN BONILLA NP Procedure Category Date Status Time * Surgical Consult CONS 04/10/25 Transmitted * Collection Specialist CONS 04/11/25 Transmitted Consult Basic Metabolic Panel LAB 04/12/25 Verified 04:00 Complete Blood Count LAB 04/12/25 Verified 04:00 Chest Xray 1 View XY 04/11/25 Verified 09:02 Date of Service: April 11, 2025 Billing Provider: JUSTIN BONILLA NP Common Visit Codes: [id number] CARE 30-74 MIN JUSTIN BONILLA NP April 11, 2025 09:05
--- NOTE | 2025-04-11 10:41 | ECG ---
[facility] Test Date: 2025-04-10 Test Time: 09:20:13 Pat Name: MELISSA SALMON Department: Room: 0264 A Gender: F Pelt Shearer: KIMBERLY : 1970 Requested By: JUSTIN BONILLA Order Number: [id number] Reading MD: Ezekiel Henry Measurements Intervals [place] Rate: 84 P: 43 SD: 144 QRS: 26 QRSD: 86 T: 70 QT: 364 QTc: 430 Interpretive Statements Normal sinus rhythm Low voltage QRS Nonspecific T wave abnormality Electronically Signed On 04-12-2025 20:51:16 PDT by Ezekiel Henry Please click the below link to view image of tracing.
--- NOTE | 2025-04-11 11:23 | DVH ---
CHEST RADIOGRAPH Indication: pna, s/p trach Technique: Frontal view of the chest. Comparison: XY CHEST PORTABLE on DOS: 04/11/25, XY CHEST PORTABLE on DOS: 04/10/25, XY CHEST PORTABLE o n DOS: 04/09/25, XY CHEST PORTABLE on DOS: 04/08/25, XY CHEST PORTABLE on DOS: 04/07/25, XY CHEST PORTAB LE on DOS: 04/11/25 FINDINGS: LUNGS AND PLEURAL SPACES: Bibasilar atelectasis or pneumonia. No pneumothorax. HEART: Unremarkable. No cardiomegaly. MEDIASTINUM: Unremarkable. Normal mediastinal contour. BONES/JOINTS: Unremarkable. No acute fracture. TUBES, LINES AND DEVICES: ETT is 7.6 cm from the caleb. Advancement may be beneficial. Left tank pherally inserted central catheter (PICC) tip in the superior vena cava. IMPRESSION: 1. ETT is 6.6 cm from the caleb. Advancement may be beneficial. 2. Bibasilar atelectasis or pneumonia.
[2025-04-11] MEDS ORDERED: KETAMINE 50mg/ML 1ml syringe ONE (11:44)
[2025-04-11] MEDS ORDERED: ROCURONIUM 10MG/ML 10ML VIAL IV ONE (11:44)
--- NOTE | 2025-04-11 12:42 | DVHPN2 ---
Progress Note - Dictate Date Seen: April 11, 2025 Medical Necessity Reason Pt with a Central, PICC or Fol: Yes The following are medically ne: Acosta Catheter Reason for acosta catheter: Strict I&O Subjective Patient was seen and evaluated in follow up in the ICU. Patient is intubated and sedated on ventilator. 30% FiO2. HGB 8.8, HCT 27.3, CO2 18, BUN 26, QUARANTINE OFFICER 1.37. Chest x-ray shows bibasilar atelectasis or pneumonia. Patient is scheduled for tracheostomy today. vital signs Vital Sign Date Time Temp Pulse Resp B/P (MAP) Pulse Ox O2 Delivery O2 Flow Rate FiO2 04/11/25 09:43 80 20 106/60 (75) 99 30 04/11/25 08:00 Mechanical Ventilator+ 04/11/25 06:30 99.3 210.7 Total Intake and Output 04/10/25 04/10/25 04/11/25 15:00 23:00 07:00 Intake Total 787.68 ml 1102.000 ml 776.064 ml Output Total 1750 ml 1300 ml Balance 787.68 ml -648.000 ml -523.936 ml medications Current Medications Medications Dose Ordered Sig/John Route Start Time Stop Time Status Last Admin Dose Admin Acetaminophen 650 mg Q6HP PRN PO 02/19/25 13:45 03/09/25 21:36 650 MG Diagnostic Test (Pha) 1 strip ACHS 02/19/25 17:00 04/11/25 06:39 1 STRIP Dextrose 50 ml UD PRN IV 02/19/25 15:45 03/14/25 21:04 50 ML Potassium Chloride 100 ml @ 50 mls/hr Q2H IV 02/19/25 23:15 02/20/25 05:14 Cancel Potassium Chloride 100 ml @ 50 mls/hr Q2H IV 02/20/25 07:15 02/20/25 11:14 UNV Calcium Acetate 1,334 mg TIDWMEALS PO 03/04/25 12:00 04/11/25 10:00 1,334 MG Ergocalciferol 50,000 unit Q7D PO 03/04/25 11:45 03/25/25 15:05 50,000 UNIT Zirconium Oxide 10 gm TID PO 03/07/25 14:00 Cancel Sodium Bicarbonate 50 ml/ Sodium Chloride 1,050 ml @ 100 mls/hr [id number] IV 03/07/25 11:45 Cancel Pantoprazole Sodium 40 mg BID IV 03/13/25 10:00 04/11/25 09:59 40 MG Albuterol 2.5 mg Q6HR NEB 03/13/25 12:00 04/11/25 05:59 2.5 MG Ipratropium [place] 0.5 mg Q6HR NEB 03/13/25 12:00 04/11/25 05:59 0.5 MG Saccharomyces Boulardii 250 mg DAILY PO 03/14/25 10:00 04/11/25 09:58 250 MG Atorvastatin Calcium 80 mg HS PO 03/24/25 22:00 04/10/25 22:08 80 MG Enoxaparin Sodium 40 mg DAILY SC 03/25/25 10:00 04/10/25 09:52 40 MG Aspirin 81 mg DAILY NG 03/25/25 10:00 04/10/25 09:46 81 MG Insulin Human Regular ACHS SC 03/30/25 22:00 04/10/25 22:09 2 UNITS Guaifenesin 200 mg Q4HP PRN PO 04/01/25 16:00 04/01/25 22:16 200 MG Vancomycin HCl 0 ml @ 0 mls/hr UD IV 04/02/25 18:30 04/14/25 18:30 Ondansetron HCl 4 mg Q8HP PRN PO 04/05/25 15:30 Fentanyl Citrate 250 ml @ 2.5 mls/hr Q24H IV 04/06/25 11:00 04/11/25 01:07 7.5 MLS/HR Dextrose 1,000 ml @ 75 mls/hr [id number] IV 04/07/25 07:45 04/11/25 10:11 75 MLS/HR Norepinephrine Bitartrate 250 ml @ 3.75 mls/hr Q24H IV 04/08/25 02:30 04/08/25 02:37 3.75 MLS/HR Enteral Nutritional Formula 1,000 ml 30ML/HR GT 04/08/25 09:30 Propofol 100 ml @ 2.232 mls/ hr Q24H IV 04/08/25 16:45 04/11/25 09:58 13.392 MLS/HR objective GENERAL: Ill appearing, intubated on ventilator. EYES: PERRL, EOMI. Anicteric. HENT: Moist mucous membranes. LUNGS: Decreased breath sounds. CARDIOVASCULAR: Regular rate and rhythm. ABDOMEN: Soft, non-tender and non-distended. EXTREMITIES: No edema. SKIN: Warm, dry. laboratory and microbiology Laboratory Tests 04/11/25 07:09 Test 04/11/25 07:09 Range/Units Serum Glucose 89 74-106 mg/dL Problem List Multiple acute/subacute strokes. Hypokalemia. Acute kidney injury. Hypertension, newly diagnosed. Insulin-dependent diabetes mellitus. Status post right BKA. Dyslipidemia. Polysubstance use disorder. Left lower extremity cellulitis. Peripheral vascular disease status post right [id number] amputation 6 months ago. Sepsis. Diabetic neuropathy. Assessment/Plan Continued all current supportive medical care. Aspirin, Lipitor. IV antibiotics as ordered. DVT and GI prophylactics. Vasopressors for hemodynamic support. Additional plan as per the hospital course. Critical care time of 45 minutes provided to include time spent evaluation of patient at bedside, when appropriate patient/family education for diagnosis, treatment plan, review of pertinent medical information and discussion of care with specialty providers and PCP. Mechanical ventilator parameters, treatment and adjustments have personally been reviewed by me and treatment plan by press operator automatic has also been reviewed. Dietary Evaluation Review Comments: 1) Esau 1 pk BID 2) Refer Ship Manager on DC 3) Continue current plan of care Expected Outcomes/Goals: Pt will meet >75% estimated needs Fu 3-5 days Plan discussed with: Other YANIRA WINN MD April 11, 2025 12:04
[2025-04-11] MEDS: SODIUM CHL 0.9% IV SCH (13:00)
[2025-04-11] MEDS: CEFIDEROCOL IV SCH (13:00)
--- NOTE | 2025-04-11 13:17 | DVHOP2 ---
Operative Report [id number] VENTILATOR DEPENDENCE ELECTIVE TRACHEOSTOMY EBL 5 CC NO COMPLICATIONS YESI DREW MD April 11, 2025 13:17
--- NOTE | 2025-04-11 13:55 | DVHOP ---
DATE OF SURGERY: 04/11/2025 PREOPERATIVE DIAGNOSIS: Ventilator dependence. POSTOPERATIVE DIAGNOSIS: Ventilator dependence. PROCEDURE: Elective tracheostomy. SURGEON: Kmuar Matt MD DEVELOPMENTAL MATHEMATICS INSTRUCTOR: None. ANESTHESIA: General. BLOOD LOSS: Close to 5 mL. DRAINS: No drains were used. COMPLICATIONS: No complications were encountered. DESCRIPTION OF PROCEDURE: The patient was prepped and draped in the usual sterile fashion in the supine position with the neck extended out and a transverse incision was applied a finger and a half breadth above the sternal notch, going to the sternomastoid on either side. It was taken down to the platysma that was divided. The cervical fascia was divided in the midline. The strap muscles were retracted. The thyroid isthmus was located. It was divided in the midline and secured on either side with suture to prevent bleeding. The tracheal structure was identified. The cricoid cartilage was identified. It was held up with a cricoid hook. The tracheal rings 2, 3, and 4 were identified and a U-shaped flap was created by starting making an incision in the inferior side and going up on either side and then securing the flap with a Prolene suture for future identification in case needed. The tracheal opening was dilated. The ET tube was removed. Suction was carried out and a size 8 tracheostomy tube was advanced into position. The bulb was inflated to 7 mL and the connection with the ventilator was established with no complication and good respiratory readings. With this being done, the hemostasis was excellent. The platysma was brought together on either side using the Vicryl suture and the skin incision was brought together using a silk suture in interrupted mattress fashion. The Xeroform dressing was applied around the tracheostomy tube for hemostasis as well and then the flanges on either side of the tracheostomy tube were secured to the skin superiorly and inferiorly with silk sutures on either side and then the umbilical tape was around the flanges as well and to ensure that the tracheostomy tube did not get pulled out accidentally. With this being done, the procedure was accomplished successfully without any complication and the patient was taken back to the ICU in a stable condition. MD AR Angulo/EMMA TID: [id number] RECEIPT: [id number] cc: Nomi Alanis NP
[2025-04-11] MEDS: VANCOMYCIN 500mg/100mL 100 ML IV ONE (16:00)
--- NOTE | 2025-04-11 20:36 | DVHPN2 ---
Progress Note - Dictate Date Seen: April 11, 2025 Medical Necessity Reason Pt with a Central, PICC or Fol: Yes The following are medically ne: Acosta Catheter Reason for acosta catheter: Strict I&O Subjective Mr. Kaur is a 54 years old right-handed female with a history of hypertension, diabetes, dyslipidemia, anxiety, GERD, osteo myelitis status post right BKA, she came to the [facility] on 02/19/25 with a chief complaint of general weakness. He was transferred/ICU on 03/13/25 for ALOC, nasal bleeding and intubation Unfortunately, she was coded on 04/06/2025 for 8 minutes, she was reintubated She was through tracheostomy on 04/11/2025 I have seen and examined the patient, I have talked to her nurse, she is sedated, status post tracheostomy, but is on vent, she is nonresponsive to stroke painful stimuli, she has no gag reflexes Fentanyl 200 mcg/hour, propofol 40 mgm/minute Psychiatry consultation, 02/26/25: 1:1 sitter. Transferred to inpatient psychiatric facility. Cymbalta 30 mg b.i.d. ABG, 03/13/2025: Unremarkable UDS, 02/19/2025: Cannabinoids Plasma alcohol, 02/19/2025: 3 Urinalysis, 02/19, : WBC: 2, urine leukocyte esterase WBC/HB/PLT/MCV, 02/20/2025: 21.9/10.9/398/83.1, 03/13/2025: 11.7/6.5/424/85.4 PT/INR/PTT, 03/13/2025: 10.6/1/38.6 K, 02/19/2025: 1.7, 02/20/2025: 2.1 BUN/CR, 02/20/2025: 33/2.03, 03/13/2025: 51.93 HGB A1c, 06/03/2024: 13.1 Liver function tests, 02/20/2025: Unremarkable TG/HDL/LDL/HDL, 04/11/2024: 180/238/164/43 MAGALIS, 02/21/2025: 1. Technically good study. Sinus rhythm. 2. Left atrial enlargement. 3. Number Valves appear to be structurally normal. 4. Ventricular systolic function is preserved at 60% with normal RV function. 5. Doppler reveals mild TR. No significant mitral or aortic insufficiency. No atrial septal or ventricular septal defects 6. No masses or vegetations discernible. 7. The atrial appendage looks clean, no masses. No atrial or ventricular septal defects as noted. No abnormal shunting. Bubble study was negative 8. The valves appear to be structurally normal. No vegetations or signs of emboli present. Carotid Doppler, 02/20/2025: No hemodynamically significant stenosis noted in the right carotid system. No hemodynamically significant stenosis noted in the left carotid system. Chest X-ray, 03/19/25: 1. Endotracheal tube terminates 4cm from caleb. Other lines and tubes are unchanged in position. 2. Bilateral airspace disease similar to prior study. CT head, : Small age-indeterminate infarct extending from the right jorge radiata into the right basal ganglia. Further evaluation with MRI brain with diffusion-weighted imaging is recommended. CT head, , No acute intracranial abnormality. Multiple subacute bilateral lacunar infarcts as seen on prior MRI. MRI head, 02/19/2025: 1. There are multiple small foci of acute to subacute infarct in the right jorge radiata and right basal ganglia. There are also multiple small acute to subacute infarcts in the left anteromedial frontal lobe and in the left jorge radiata and left basal ganglia. There is no evidence of acute hemorrhage MR head, 03/21/2025: 1. Multiple foci of restricted diffusion involving the left corpus callosum, bilateral basal ganglia and right jorge radiata. The largest area involves the left splenium of the corpus callosum. These likely represent acute to subacute infarcts. There is no evidence of acute hemorrhage. 2. Moderate amount of fluid in the bilateral mastoid air cells MRI left foot, 02/22/25: Moderate dorsal subcutaneous edema. No evidence of osteomyelitis. No drainable fluid collection noted. Moderate myositis. vital signs Vital Sign Date Time Temp Pulse Resp B/P (MAP) Pulse Ox O2 Delivery O2 Flow Rate FiO2 04/11/25 20:15 97.3 75 18 94/60 (71) 100 207.1 04/11/25 20:00 Mechanical Ventilator+ 30 30 Total Intake and Output 04/10/25 04/10/25 04/11/25 15:00 23:00 07:00 Intake Total 787.68 ml 1102.000 ml 776.064 ml Output Total 1750 ml 1300 ml Balance 787.68 ml -648.000 ml -523.936 ml medications Current Medications Medications Dose Ordered Sig/John Route Start Time Stop Time Status Last Admin Dose Admin Acetaminophen 650 mg Q6HP PRN PO 02/19/25 13:45 03/09/25 21:36 650 MG Diagnostic Test (Pha) 1 strip ACHS 02/19/25 17:00 04/11/25 16:55 1 STRIP Dextrose 50 ml UD PRN IV 02/19/25 15:45 03/14/25 21:04 50 ML Potassium Chloride 100 ml @ 50 mls/hr Q2H IV 02/19/25 23:15 02/20/25 05:14 Cancel Potassium Chloride 100 ml @ 50 mls/hr Q2H IV 02/20/25 07:15 02/20/25 11:14 UNV Calcium Acetate 1,334 mg TIDWMEALS PO 03/04/25 12:00 04/11/25 10:00 1,334 MG Ergocalciferol 50,000 unit Q7D PO 03/04/25 11:45 03/25/25 15:05 50,000 UNIT Zirconium Oxide 10 gm TID PO 03/07/25 14:00 Cancel Sodium Bicarbonate 50 ml/ Sodium Chloride 1,050 ml @ 100 mls/hr [id number] IV 03/07/25 11:45 Cancel Pantoprazole Sodium 40 mg BID IV 03/13/25 10:00 04/11/25 09:59 40 MG Albuterol 2.5 mg Q6HR NEB 03/13/25 12:00 04/11/25 19:06 2.5 MG Ipratropium Robinson 0.5 mg Q6HR NEB 03/13/25 12:00 04/11/25 19:06 0.5 MG Saccharomyces Boulardii 250 mg DAILY PO 03/14/25 10:00 04/11/25 09:58 250 MG Atorvastatin Calcium 80 mg HS PO 03/24/25 22:00 04/10/25 22:08 80 MG Enoxaparin Sodium 40 mg DAILY SC 03/25/25 10:00 04/10/25 09:52 40 MG Aspirin 81 mg DAILY NG 03/25/25 10:00 04/10/25 09:46 81 MG Insulin Human Regular ACHS SC 03/30/25 22:00 04/10/25 22:09 2 UNITS Guaifenesin 200 mg Q4HP PRN PO 04/01/25 16:00 04/01/25 22:16 200 MG Vancomycin HCl 0 ml @ 0 mls/hr UD IV 04/02/25 18:30 04/14/25 18:30 Ondansetron HCl 4 mg Q8HP PRN PO 04/05/25 15:30 Fentanyl Citrate 250 ml @ 2.5 mls/hr Q24H IV 04/06/25 11:00 04/11/25 01:07 7.5 MLS/HR Dextrose 1,000 ml @ 75 mls/hr [id number] IV 04/07/25 07:45 04/11/25 10:11 75 MLS/HR Norepinephrine Bitartrate 250 ml @ 3.75 mls/hr Q24H IV 04/08/25 02:30 04/08/25 02:37 3.75 MLS/HR Enteral Nutritional Formula 1,000 ml 30ML/HR GT 04/08/25 09:30 Propofol 100 ml @ 2.232 mls/ hr Q24H IV 04/08/25 16:45 04/11/25 16:55 13.392 MLS/HR Cefiderocol 1.5 gm/Sodium Chloride 100 ml @ 33.333 mls/ hr Q8H IV 04/11/25 13:00 04/11/25 13:00 33.333 MLS/HR objective The patient is well-nourished and well-developed with no distress. The patient is intubated MENTAL STATUS: Subjective CRANIAL NERVES: Pupils are equal, round and weak reactive.There are no corneal reflexes and weak doll's eyes phenomenon. No signs of facial weakness. There are no gagging or coughing reflexes SENSATION: No responses to pain stimuli. MOTOR: Normal tone in the upper and lower extremity. Normal muscle bulk. No fasciculations. No spontaneous movement. REFLEXES: Deep tendon reflexes are symmetrical. No pathological reflexes. CEREBELLAR/COORDINATION: Deferred GAIT/STATION: deferred. laboratory and microbiology Laboratory Tests 04/11/25 07:09 Test 04/11/25 07:09 Range/Units Serum Glucose 89 74-106 mg/dL Problem List Acute respiratory failure, reintubated on 04/06/2025 Excessive nasal bleeding Come company resolved Metabolic encephalopathy Hypoxic encephalopathy Toxic encephalopathy Respiratory failure, status post tracheostomy Left hemiparesis secondary stroke Left homonymous hemianopsia secondary to stroke General weakness Multiple acute/subacute strokes (MRI head: 02/19/2025, 03/21/2025) Status post right BKA Depression Assessment/Plan Monitoring Supportive treatment ICU Stabilize vitals Respiratory support/vent management Oxygen Antibiotics Aspirin 81 mg daily Lipitor 80mg Qd DVT prophylaxis/Lovenox Quit tobacco smoking completely She needs tracheostomy and feeding tube insertion More recommendation per clinical course This medical document was created using an electronic medical record system with [employer] dictation system. Although this document has been carefully reviewed, there may still be some phonetic and typographical errors. These areas are purely typographical due to imperfections of the software programs, and do not reflect any compromise in the patient's medical care. Prognosis guarded Dietary Evaluation Review Comments: 1) Esau 1 pk BID 2) Refer Draw Fire Operator on DC 3) Continue current plan of care Expected Outcomes/Goals: Pt will meet >75% estimated needs Fu 3-5 days Plan discussed with: Other Critical Care Time(min): 30 NEELA RUEDA MD April 11, 2025 20:36
--- NOTE | 2025-04-11 21:57 | DVHPN2 ---
Progress Note - Dictate Date Seen: April 11, 2025 Medical Necessity Reason Pt with a Central, PICC or Fol: Yes The following are medically ne: Acosta Catheter Reason for acosta catheter: Strict I&O Subjective Patient seen and examined at bedside. Sedated, on mechanical ventilator. s/p trach Overnight events reviewed. vital signs Vital Sign Date Time Temp Pulse Resp B/P (MAP) Pulse Ox O2 Delivery O2 Flow Rate FiO2 04/11/25 20:30 75 18 94/59 (71) 100 30 04/11/25 20:15 97.3 207.1 04/11/25 20:00 Mechanical Ventilator+ Total Intake and Output 04/10/25 04/10/25 04/11/25 15:00 23:00 07:00 Intake Total 787.68 ml 1102.000 ml 776.064 ml Output Total 1750 ml 1300 ml Balance 787.68 ml -648.000 ml -523.936 ml medications Current Medications Medications Dose Ordered Sig/John Route Start Time Stop Time Status Last Admin Dose Admin Acetaminophen 650 mg Q6HP PRN PO 02/19/25 13:45 03/09/25 21:36 650 MG Diagnostic Test (Pha) 1 strip ACHS 02/19/25 17:00 04/11/25 16:55 1 STRIP Dextrose 50 ml UD PRN IV 02/19/25 15:45 04/11/25 21:04 50 ML Potassium Chloride 100 ml @ 50 mls/hr Q2H IV 02/19/25 23:15 02/20/25 05:14 Cancel Potassium Chloride 100 ml @ 50 mls/hr Q2H IV 02/20/25 07:15 02/20/25 11:14 UNV Calcium Acetate 1,334 mg TIDWMEALS PO 03/04/25 12:00 04/11/25 10:00 1,334 MG Ergocalciferol 50,000 unit Q7D PO 03/04/25 11:45 03/25/25 15:05 50,000 UNIT Zirconium Oxide 10 gm TID PO 03/07/25 14:00 Cancel Sodium Bicarbonate 50 ml/ Sodium Chloride 1,050 ml @ 100 mls/hr [id number] IV 03/07/25 11:45 Cancel Pantoprazole Sodium 40 mg BID IV 03/13/25 10:00 04/11/25 09:59 40 MG Albuterol 2.5 mg Q6HR NEB 03/13/25 12:00 04/11/25 19:06 2.5 MG Ipratropium Oaks 0.5 mg Q6HR NEB 03/13/25 12:00 04/11/25 19:06 0.5 MG Saccharomyces Boulardii 250 mg DAILY PO 03/14/25 10:00 04/11/25 09:58 250 MG Atorvastatin Calcium 80 mg HS PO 03/24/25 22:00 04/10/25 22:08 80 MG Enoxaparin Sodium 40 mg DAILY SC 03/25/25 10:00 04/10/25 09:52 40 MG Aspirin 81 mg DAILY NG 03/25/25 10:00 04/10/25 09:46 81 MG Insulin Human Regular ACHS SC 03/30/25 22:00 04/10/25 22:09 2 UNITS Guaifenesin 200 mg Q4HP PRN PO 04/01/25 16:00 04/01/25 22:16 200 MG Vancomycin HCl 0 ml @ 0 mls/hr UD IV 04/02/25 18:30 04/14/25 18:30 Ondansetron HCl 4 mg Q8HP PRN PO 04/05/25 15:30 Fentanyl Citrate 250 ml @ 2.5 mls/hr Q24H IV 04/06/25 11:00 04/11/25 01:07 7.5 MLS/HR Dextrose 1,000 ml @ 75 mls/hr [id number] IV 04/07/25 07:45 04/11/25 10:11 75 MLS/HR Norepinephrine Bitartrate 250 ml @ 3.75 mls/hr Q24H IV 04/08/25 02:30 04/08/25 02:37 3.75 MLS/HR Enteral Nutritional Formula 1,000 ml 30ML/HR GT 04/08/25 09:30 Propofol 100 ml @ 2.232 mls/ hr Q24H IV 04/08/25 16:45 04/11/25 16:55 13.392 MLS/HR Cefiderocol 1.5 gm/Sodium Chloride 100 ml @ 33.333 mls/ hr Q8H IV 04/11/25 13:00 04/11/25 13:00 33.333 MLS/HR objective Gen.: Patient lying in bed in medical ICU. Sedated, on mechanical ventilator via trach. Head: Normocephalic, atraumatic. Eyes: PERRLA. Ears: Normal external anatomy. Throat: Endotracheal tube and orogastric tube in place. Neck: Trach in place. Chest: Transmitted breath sounds bilaterally. Decreased air entry bilaterally. No wheezing. Bibasilar crackles. Cardiovascular: Positive S1, positive S2. Regular rate and rhythm. Abdomen: Positive bowel sounds in all 4 quadrants. Soft, nontender, nondistended. : Acosta in place. Normal external genitalia. Rectal: Deferred. Skin: Warm, dry. Intact. Extremities: 2+ radial pulses bilaterally. No lower extremity edema. Right BKA. Neuro: Sedated. laboratory and microbiology Laboratory Tests 04/11/25 07:09 Test 04/11/25 07:09 Range/Units Serum Glucose 89 74-106 mg/dL Assessment/Plan Impression: Acute hypoxic respiratory failure On mechanical ventilator S/p cardiac arrest with ROSC Multiple acute/subacute strokes. Altered mental status Acute kidney injury. Hypertension, newly diagnosed. Insulin-dependent diabetes mellitus. Polysubstance use Peripheral vascular disease, s/p right BKA 6 months ago. Sepsis Events: S/p tracheostomy - 8.0 Shiterrence Remains on vent support AC mode with RR 18, VT 400, PEEP 5, FIO2 30% Trach care per RT Hemorrhage noted around trach. CXR reviewed, reveals bibasilar atelectasis or pneumonia.. Sedated on Propofol drip. Off Levophed, hemodynamically stable. Monitor hemoglobin - stable at 8.8 g/dL Head of bed elevation Aspiration precautions Continue bronchodilators Continue antibiotics. Follow up cultures On statin Tube feeds for nutritional support ABG reviewed, notable for acidemia Protonix BID for GI prophylaxis Lovenox for DVT prophylaxis Labs and imaging reviewed. Rest of plan as noted below. Plan: S/p cardiac arrest S/p placement on mechanical ventilator. AC mode with RR 18, VT 400, PEEP 5, FIO2 30% S/p tracheostomy - 8.0 Shiley Titrate FIO2 to keep O2 saturation above 90%. VAP bundle. Daily ABG and CXR while intubated Sedate for ventilator synchrony HOB elevation Aspiration precautions Pressors as necessary for hemodynamic support Titrate to keep mean arterial pressure greater than 65 mmHg. Bronchodilators Continue antibiotics. F/u cultures. Accu-Cheks, ISS PRN. Monitor renal function Monitor electrolytes Supplement as needed Continue psych meds Tube feeds for nutritional support Pressors as necessary for hemodynamic support Titrate to keep mean arterial pressure greater than 65 mmHg. GI prophylaxis - Protonix. DVT prophylaxis - Lovenox. Prognosis: Poor given patient's multiple co-morbidities. Condition: Critical Rest of plan per hospitalist and other consultants. A total of 35 minutes of critical care time was spent reviewing the patient record, examining the patient, making a diagnostic and therapeutic plan, discussing this plan with the medical personnel, following up on diagnostic studies and following the patient for clinical stability excluding any and all procedures. At least 50% of this time was spent in direct, [id number] contact. Thank you, FRANCISCO Alanis, for allowing me to participate in this patient's care. Further recommendations will depend on the patient's clinical course. Please do not hesitate to contact me if you have any questions or concerns. This medical document was created using an electronic medical record system with [employer] dictation system. Although these documentations are being carefully reviewed, there may still be some phonetic and typographical changes. The errors are purely typographical, due to imperfection on the software program, and do not reflect any compromise in the patient's medical care. Dietary Evaluation Review Comments: 1) Esau 1 pk BID 2) Refer Steel Tier on DC 3) Continue current plan of care Expected Outcomes/Goals: Pt will meet >75% estimated needs Fu 3-5 days Plan discussed with: Other (ASHLEY Mckoy) Critical Care Time(min): 35 LARRY HERRERA MD April 11, 2025 21:57
--- NOTE | 2025-04-11 22:14 | DVHPN2 ---
Consult Progress Note Date Seen: April 10, 2025 Subjective Patient reports: Other (off all pressures and on minimal vent , started on tube feeds and is sedated . has diffuse wheezing in the lungs ) Objective vital signs Vital Sign Date Time Temp Pulse Resp B/P (MAP) Pulse Ox O2 Delivery O2 Flow Rate FiO2 04/11/25 20:30 75 18 94/59 (71) 100 30 04/11/25 20:15 97.3 207.1 04/11/25 20:00 Mechanical Ventilator+ Total Intake and Output 04/10/25 04/10/25 04/11/25 15:00 23:00 07:00 Intake Total 787.68 ml 1102.000 ml 776.064 ml Output Total 1750 ml 1300 ml Balance 787.68 ml -648.000 ml -523.936 ml medications Current Medications Medications Dose Ordered Sig/John Route Start Time Stop Time Status Last Admin Dose Admin Acetaminophen 650 mg Q6HP PRN PO 02/19/25 13:45 03/09/25 21:36 650 MG Diagnostic Test (Pha) 1 strip ACHS 02/19/25 17:00 04/11/25 21:53 1 STRIP Dextrose 50 ml UD PRN IV 02/19/25 15:45 04/11/25 21:04 50 ML Potassium Chloride 100 ml @ 50 mls/hr Q2H IV 02/19/25 23:15 02/20/25 05:14 Cancel Potassium Chloride 100 ml @ 50 mls/hr Q2H IV 02/20/25 07:15 02/20/25 11:14 UNV Calcium Acetate 1,334 mg TIDWMEALS PO 03/04/25 12:00 04/11/25 10:00 1,334 MG Ergocalciferol 50,000 unit Q7D PO 03/04/25 11:45 03/25/25 15:05 50,000 UNIT Zirconium Oxide 10 gm TID PO 03/07/25 14:00 Cancel Sodium Bicarbonate 50 ml/ Sodium Chloride 1,050 ml @ 100 mls/hr [id number] IV 03/07/25 11:45 Cancel Pantoprazole Sodium 40 mg BID IV 03/13/25 10:00 04/11/25 21:51 40 MG Albuterol 2.5 mg Q6HR NEB 03/13/25 12:00 04/11/25 19:06 2.5 MG Ipratropium Logan 0.5 mg Q6HR NEB 03/13/25 12:00 04/11/25 19:06 0.5 MG Saccharomyces Boulardii 250 mg DAILY PO 03/14/25 10:00 04/11/25 09:58 250 MG Atorvastatin Calcium 80 mg HS PO 03/24/25 22:00 04/11/25 21:52 80 MG Enoxaparin Sodium 40 mg DAILY SC 03/25/25 10:00 04/10/25 09:52 40 MG Aspirin 81 mg DAILY NG 03/25/25 10:00 04/10/25 09:46 81 MG Insulin Human Regular ACHS SC 03/30/25 22:00 04/10/25 22:09 2 UNITS Guaifenesin 200 mg Q4HP PRN PO 04/01/25 16:00 04/01/25 22:16 200 MG Vancomycin HCl 0 ml @ 0 mls/hr UD IV 04/02/25 18:30 04/14/25 18:30 Ondansetron HCl 4 mg Q8HP PRN PO 04/05/25 15:30 Fentanyl Citrate 250 ml @ 2.5 mls/hr Q24H IV 04/06/25 11:00 04/11/25 22:11 20 MLS/HR Dextrose 1,000 ml @ 75 mls/hr [id number] IV 04/07/25 07:45 04/11/25 10:11 75 MLS/HR Norepinephrine Bitartrate 250 ml @ 3.75 mls/hr Q24H IV 04/08/25 02:30 04/08/25 02:37 3.75 MLS/HR Enteral Nutritional Formula 1,000 ml 30ML/HR GT 04/08/25 09:30 Propofol 100 ml @ 2.232 mls/ hr Q24H IV 04/08/25 16:45 04/11/25 21:56 17.856 MLS/HR Cefiderocol 1.5 gm/Sodium Chloride 100 ml @ 33.333 mls/ hr Q8H IV 04/11/25 13:00 04/11/25 21:53 33.333 MLS/HR laboratory and microbiology Laboratory Tests 04/11/25 07:09 Test 04/11/25 07:09 Range/Units Serum Glucose 89 74-106 mg/dL Problem List/Assessment/Plan Problems(with codes): (1) Intractable vomiting (2) Acute abdominal pain (3) Uncontrolled diabetes mellitus (4) UTI (urinary tract infection) (5) Sepsis (6) TATIANNA (acute kidney injury) (7) Substance abuse (8) Intractable abdominal pain Problem List/Assessment/Plan Pneumonia ESBL Klebsiella, Carbapenemic resistant Pseudomonas positive sputum culture , possible due to ventilator associated pneumonia Sepsis probably due to above Left patellar bursitis, I&D w bursectomy performed on 03/07/25 Left knee culture growing MSSA Left foot ulcer, dorsal aspect Multiple acute-subacute strokes Ruled out C diff colitis Hypokalemia TATIANNA on CKD Peripheral arterial disease s/p R BKA 6 months ago Type 2 diabetes, uncontrolled Diabetic neuropathy Angioedema of the tongue Patient is a 64 year old female with a past medical history of diabetes, left foot ulcer , hypertension , hyperlipidemia , anxiety , peripheral arterial disease , depression , presents with left sided weakness and mild dysarthria . Had a brain MRI revealing multiple small falsi of acute to subacute infarcts in the right coronary radiata and right basal ganglia. Underwent MAGALIS which showed no masses or vegetation . Bubble study was negative , valve restriction is normal . Patient was intubated on 03/13 and a rapid was called . Intubated due to airway protection and excavated on 03/26. but then shortly reintubated due to possible right lower lobe aspiration.Is now on 2 liters nasal canula and has left knee swelling ,erythema , cultures were growing MSSA , however on Clindamycin and irrigation and debridement of left patella on 03/07. She is noting having some diarrhea, with some left knee swelling persistent after debridement . Surgical roxanne are clean and left upper extremity swelling is noted . Crackles in the lungs and is tachycardic Assessment: 04/02:Patient is growing pseudomonas , ESBL klebsiella on sputum culture likely due to hospital acquired pneumonia. possible C diff colitis. As well as an MSSA left knee bursitis that has yet to be treated with appropriate antibiotics. Patient has peripheral arterial disease and right decay and uncontrolled diabetes 04/03: patient is doing better , diarrhea has significantly improved and tolerating antibiotics without any fevers or chills . Patient is a bit drowsy . Patient has some mild angioedema of the tongue . C diff testing is negative 04/04: Patient was seen by Dr eVlasco and tolerating diet. Agree with Dr. Velasco findings . Not having any worsening diarrhea 04/05: having diarrhea with antibiotic therapy , most recent chest xray shows lung bases that are unremarkable. clinically stable and worsening confusion and immunity , possible aspiration 04/06: patient has ongoing diarrhea as potential source of worsening septic picture . Patient was found to be hypoxic and confused yesterday possible related to acute aspiration event and possible mucus plugging as patient also refused chest pt. 04/07: presser needs are coming down , suspect aspiration event 04/08: required blood transfusion for hemoglobin 6.9 , unclear if this is due to a real bleed and will continue to monitor for signs of bleeding . Chest xray shows cardiomegaly with mild signs of congestion . Head CT shows right posterior frontal periventricular white matter disease , likely subacute to few small old infacts bilateral basal gangular thats greater on the right side. Cultures are currently with moderate gram negative rods in the sputum and blood cultures are no growth to date 04/09: Culture continues to show moderate gram negative jw in the sputum , awaiting speciation . would be concerned [id number] is not being adequately treated for gram negative jw infection in the sputum previously . 04/10: having some diffuse wheezing in lungs likely contributing to acute hypoxia as well as the gram negative jw that is pending speciation Plan: - increase dose of zerbaxa to 3 grams every 8 hours - consider bronchoscopy and deeper sputum cultures and BAL culture if patient is to get a bronchoscopy to asses for airway clearance, defer to pulmonology on this - recommend repeating blood culture and urine culture and stool culture - recommend KUB to further evaluate for colitis - would consider broadening out to fetroza to cover multi drug resistant organism if hypoxia persists - would empirically restart Flagyl in the event of possible aspiration with anaerobic being covered by zerbaxa alone - Continue IV vancomycin for MSSA left knee cellulitis - Continue Zerbaxa for hospital acquired pneumonia for at least 7 days and once completed and oral antibiotic for patients septic arthritis is a possibility , can potentially change to oral Bactrim once zerbaxa coarse has been completed tentatively 04/10/25 - no need for additional workup at this time Authorized and Performed by: Katerine Hughes Total critical care time: Approximately 76 minutes Due to a high probability of clinically significant, life threatening deterioration, the patient required my highest level of preparedness to intervene emergently and I personally spent this critical care time directly and personally managing the patient. This critical care time included obtaining a history; examining the patient; pulse oximetry; ordering and review of studies; arranging urgent treatment with development of a management plan; evaluation of patient's response to treatment; frequent reassessment; and, discussions with other providers. This critical care time was performed to assess and manage the high probability of imminent, life-threatening deterioration that could result in multi-organ failure. It was exclusive of separately billable procedures and treating other patients and teaching time. Plan discussed with: Other Dietary Evaluation Review Comments: 1) Esau 1 pk BID 2) Refer Transmission Operator on DC 3) Continue current plan of care Expected Outcomes/Goals: Pt will meet >75% estimated needs Fu 3-5 days KATERINE HUGHES MD April 11, 2025 22:14
--- NOTE | 2025-04-11 22:14 | DVHPN2 ---
Consult Progress Note Date Seen: April 11, 2025 Subjective Patient reports: Other (s/P trach placement , on minimal vent and hooked up to trach with a clean insertion site ) Objective vital signs Vital Sign Date Time Temp Pulse Resp B/P (MAP) Pulse Ox O2 Delivery O2 Flow Rate FiO2 04/11/25 20:30 75 18 94/59 (71) 100 30 04/11/25 20:15 97.3 207.1 04/11/25 20:00 Mechanical Ventilator+ Total Intake and Output 04/10/25 04/10/25 04/11/25 15:00 23:00 07:00 Intake Total 787.68 ml 1102.000 ml 776.064 ml Output Total 1750 ml 1300 ml Balance 787.68 ml -648.000 ml -523.936 ml medications Current Medications Medications Dose Ordered Sig/John Route Start Time Stop Time Status Last Admin Dose Admin Acetaminophen 650 mg Q6HP PRN PO 02/19/25 13:45 03/09/25 21:36 650 MG Diagnostic Test (Pha) 1 strip ACHS 02/19/25 17:00 04/11/25 21:53 1 STRIP Dextrose 50 ml UD PRN IV 02/19/25 15:45 04/11/25 21:04 50 ML Potassium Chloride 100 ml @ 50 mls/hr Q2H IV 02/19/25 23:15 02/20/25 05:14 Cancel Potassium Chloride 100 ml @ 50 mls/hr Q2H IV 02/20/25 07:15 02/20/25 11:14 UNV Calcium Acetate 1,334 mg TIDWMEALS PO 03/04/25 12:00 04/11/25 10:00 1,334 MG Ergocalciferol 50,000 unit Q7D PO 03/04/25 11:45 03/25/25 15:05 50,000 UNIT Zirconium Oxide 10 gm TID PO 03/07/25 14:00 Cancel Sodium Bicarbonate 50 ml/ Sodium Chloride 1,050 ml @ 100 mls/hr [id number] IV 03/07/25 11:45 Cancel Pantoprazole Sodium 40 mg BID IV 03/13/25 10:00 04/11/25 21:51 40 MG Albuterol 2.5 mg Q6HR NEB 03/13/25 12:00 04/11/25 19:06 2.5 MG Ipratropium [place] 0.5 mg Q6HR NEB 03/13/25 12:00 04/11/25 19:06 0.5 MG Saccharomyces Boulardii 250 mg DAILY PO 03/14/25 10:00 04/11/25 09:58 250 MG Atorvastatin Calcium 80 mg HS PO 03/24/25 22:00 04/11/25 21:52 80 MG Enoxaparin Sodium 40 mg DAILY SC 03/25/25 10:00 04/10/25 09:52 40 MG Aspirin 81 mg DAILY NG 03/25/25 10:00 04/10/25 09:46 81 MG Insulin Human Regular ACHS SC 03/30/25 22:00 04/10/25 22:09 2 UNITS Guaifenesin 200 mg Q4HP PRN PO 04/01/25 16:00 04/01/25 22:16 200 MG Vancomycin HCl 0 ml @ 0 mls/hr UD IV 04/02/25 18:30 04/14/25 18:30 Ondansetron HCl 4 mg Q8HP PRN PO 04/05/25 15:30 Fentanyl Citrate 250 ml @ 2.5 mls/hr Q24H IV 04/06/25 11:00 04/11/25 22:11 20 MLS/HR Dextrose 1,000 ml @ 75 mls/hr [id number] IV 04/07/25 07:45 04/11/25 10:11 75 MLS/HR Norepinephrine Bitartrate 250 ml @ 3.75 mls/hr Q24H IV 04/08/25 02:30 04/08/25 02:37 3.75 MLS/HR Enteral Nutritional Formula 1,000 ml 30ML/HR GT 04/08/25 09:30 Propofol 100 ml @ 2.232 mls/ hr Q24H IV 04/08/25 16:45 04/11/25 21:56 17.856 MLS/HR Cefiderocol 1.5 gm/Sodium Chloride 100 ml @ 33.333 mls/ hr Q8H IV 04/11/25 13:00 04/11/25 21:53 33.333 MLS/HR laboratory and microbiology Laboratory Tests 04/11/25 07:09 Test 04/11/25 07:09 Range/Units Serum Glucose 89 74-106 mg/dL Problem List/Assessment/Plan Problems(with codes): (1) Intractable vomiting (2) Acute abdominal pain (3) Uncontrolled diabetes mellitus (4) UTI (urinary tract infection) (5) Sepsis (6) TATIANNA (acute kidney injury) (7) Substance abuse (8) Intractable abdominal pain (9) Accelerated hypertension Problem List/Assessment/Plan Pneumonia ESBL Klebsiella, Carbapenemic resistant Pseudomonas positive sputum culture , possible due to ventilator associated pneumonia Sepsis probably due to above Left patellar bursitis, I&D w bursectomy performed on 03/07/25 Left knee culture growing MSSA Left foot ulcer, dorsal aspect Multiple acute-subacute strokes Ruled out C diff colitis Hypokalemia TATIANNA on CKD Peripheral arterial disease s/p R BKA 6 months ago Type 2 diabetes, uncontrolled Diabetic neuropathy Angioedema of the tongue Patient is a 64 year old female with a past medical history of diabetes, left foot ulcer , hypertension , hyperlipidemia , anxiety , peripheral arterial disease , depression , presents with left sided weakness and mild dysarthria . Had a brain MRI revealing multiple small falsi of acute to subacute infarcts in the right coronary radiata and right basal ganglia. Underwent MAGALIS which showed no masses or vegetation . Bubble study was negative , valve restriction is normal . Patient was intubated on 03/13 and a rapid was called . Intubated due to airway protection and excavated on 03/26. but then shortly reintubated due to possible right lower lobe aspiration.Is now on 2 liters nasal canula and has left knee swelling ,erythema , cultures were growing MSSA , however on Clindamycin and irrigation and debridement of left patella on 03/07. She is noting having some diarrhea, with some left knee swelling persistent after debridement . Surgical roxanne are clean and left upper extremity swelling is noted . Crackles in the lungs and is tachycardic Assessment: 04/02:Patient is growing pseudomonas , ESBL klebsiella on sputum culture likely due to hospital acquired pneumonia. possible C diff colitis. As well as an MSSA left knee bursitis that has yet to be treated with appropriate antibiotics. Patient has peripheral arterial disease and right decay and uncontrolled diabetes 04/03: patient is doing better , diarrhea has significantly improved and tolerating antibiotics without any fevers or chills . Patient is a bit drowsy . Patient has some mild angioedema of the tongue . C diff testing is negative 04/04: Patient was seen by Dr Velasco and tolerating diet. Agree with Dr. Velasco findings . Not having any worsening diarrhea 04/05: having diarrhea with antibiotic therapy , most recent chest xray shows lung bases that are unremarkable. clinically stable and worsening confusion and immunity , possible aspiration 04/06: patient has ongoing diarrhea as potential source of worsening septic picture . Patient was found to be hypoxic and confused yesterday possible related to acute aspiration event and possible mucus plugging as patient also refused chest pt. 04/07: presser needs are coming down , suspect aspiration event 04/08: required blood transfusion for hemoglobin 6.9 , unclear if this is due to a real bleed and will continue to monitor for signs of bleeding . Chest xray shows cardiomegaly with mild signs of congestion . Head CT shows right posterior frontal periventricular white matter disease , likely subacute to few small old infacts bilateral basal gangular thats greater on the right side. Cultures are currently with moderate gram negative rods in the sputum and blood cultures are no growth to date 04/09: Culture continues to show moderate gram negative jw in the sputum , awaiting speciation . would be concerned [id number] is not being adequately treated for gram negative jw infection in the sputum previously . 04/10: having some diffuse wheezing in lungs likely contributing to acute hypoxia as well as the gram negative jw that is pending speciation 04/11: S/P trach and peg and tolerating feeds . growing medina resistant and carbon resistant ESBL . Klebsiella pneumonia in the lungs Plan: - stop zerbaxa and start fetroja for a 7 day coarse - continue vancomycin for MSSA left knee cellulitis - consider bronchoscopy and deeper sputum cultures and BAL culture if patient is to get a bronchoscopy to asses for airway clearance, defer to pulmonology on this - will fu on pending blood culture and urine culture and stool culture Authorized and Performed by: Katerine Hughes Total critical care time: Approximately 56 minutes Due to a high probability of clinically significant, life threatening deterioration, the patient required my highest level of preparedness to intervene emergently and I personally spent this critical care time directly and personally managing the patient. This critical care time included obtaining a history; examining the patient; pulse oximetry; ordering and review of studies; arranging urgent treatment with development of a management plan; evaluation of patient's response to treatment; frequent reassessment; and, discussions with other providers. This critical care time was performed to assess and manage the high probability of imminent, life-threatening deterioration that could result in multi-organ failure. It was exclusive of separately billable procedures and treating other patients and teaching time. Plan discussed with: Other Dietary Evaluation Review Comments: 1) Esau 1 pk BID 2) Refer Head Trimmer on DC 3) Continue current plan of care Expected Outcomes/Goals: Pt will meet >75% estimated needs Fu 3-5 days KATERINE HUGHES MD April 11, 2025 22:14
--- NOTE | 2025-04-11 22:41 | DVHPN2 ---
Progress Note Date Seen: April 11, 2025 Medical Necessity Reason Pt with a Central, PICC or Fol: Yes The following are medically ne: Acosta Catheter Reason for acosta catheter: Strict I&O Objective vital signs Vital Sign Date Time Temp Pulse Resp B/P (MAP) Pulse Ox O2 Delivery O2 Flow Rate FiO2 04/11/25 22:23 72 18 104/62 (76) 100 30 04/11/25 20:15 97.3 207.1 04/11/25 20:00 Mechanical Ventilator+ Total Intake and Output 04/10/25 04/10/25 04/11/25 15:00 23:00 07:00 Intake Total 787.68 ml 1102.000 ml 776.064 ml Output Total 1750 ml 1300 ml Balance 787.68 ml -648.000 ml -523.936 ml medications Current Medications Medications Dose Ordered Sig/John Route Start Time Stop Time Status Last Admin Dose Admin Acetaminophen 650 mg Q6HP PRN PO 02/19/25 13:45 03/09/25 21:36 650 MG Diagnostic Test (Pha) 1 strip ACHS 02/19/25 17:00 04/11/25 21:53 1 STRIP Dextrose 50 ml UD PRN IV 02/19/25 15:45 04/11/25 21:04 50 ML Potassium Chloride 100 ml @ 50 mls/hr Q2H IV 02/19/25 23:15 02/20/25 05:14 Cancel Potassium Chloride 100 ml @ 50 mls/hr Q2H IV 02/20/25 07:15 02/20/25 11:14 UNV Calcium Acetate 1,334 mg TIDWMEALS PO 03/04/25 12:00 04/11/25 10:00 1,334 MG Ergocalciferol 50,000 unit Q7D PO 03/04/25 11:45 03/25/25 15:05 50,000 UNIT Zirconium Oxide 10 gm TID PO 03/07/25 14:00 Cancel Sodium Bicarbonate 50 ml/ Sodium Chloride 1,050 ml @ 100 mls/hr [id number] IV 03/07/25 11:45 Cancel Pantoprazole Sodium 40 mg BID IV 03/13/25 10:00 04/11/25 21:51 40 MG Albuterol 2.5 mg Q6HR NEB 03/13/25 12:00 04/11/25 19:06 2.5 MG Ipratropium [place] 0.5 mg Q6HR NEB 03/13/25 12:00 04/11/25 19:06 0.5 MG Saccharomyces Boulardii 250 mg DAILY PO 03/14/25 10:00 04/11/25 09:58 250 MG Atorvastatin Calcium 80 mg HS PO 03/24/25 22:00 04/11/25 21:52 80 MG Enoxaparin Sodium 40 mg DAILY SC 03/25/25 10:00 04/10/25 09:52 40 MG Aspirin 81 mg DAILY NG 03/25/25 10:00 04/10/25 09:46 81 MG Insulin Human Regular ACHS SC 03/30/25 22:00 04/10/25 22:09 2 UNITS Guaifenesin 200 mg Q4HP PRN PO 04/01/25 16:00 04/01/25 22:16 200 MG Vancomycin HCl 0 ml @ 0 mls/hr UD IV 04/02/25 18:30 04/14/25 18:30 Ondansetron HCl 4 mg Q8HP PRN PO 04/05/25 15:30 Fentanyl Citrate 250 ml @ 2.5 mls/hr Q24H IV 04/06/25 11:00 04/11/25 22:11 20 MLS/HR Dextrose 1,000 ml @ 75 mls/hr [id number] IV 04/07/25 07:45 04/11/25 10:11 75 MLS/HR Norepinephrine Bitartrate 250 ml @ 3.75 mls/hr Q24H IV 04/08/25 02:30 04/08/25 02:37 3.75 MLS/HR Enteral Nutritional Formula 1,000 ml 30ML/HR GT 04/08/25 09:30 Propofol 100 ml @ 2.232 mls/ hr Q24H IV 04/08/25 16:45 04/11/25 21:56 17.856 MLS/HR Cefiderocol 1.5 gm/Sodium Chloride 100 ml @ 33.333 mls/ hr Q8H IV 04/11/25 13:00 04/11/25 21:53 33.333 MLS/HR laboratory and microbiology Laboratory Tests 04/11/25 07:09 Test 04/11/25 07:09 Range/Units Serum Glucose 89 74-106 mg/dL Microbiology Date/Time Source Procedure Growth Status 04/06/25 20:35 Blood Blood Culture - Final NO GROWTH AFTER 5 DAYS OF INCUBATION. Complete 04/06/25 10:20 Sputum Gram Stain - Final Complete 04/06/25 10:20 Respiratory Culture - Final Klebsiella pneumoniae - ESBL Complete 04/02/25 13:00 Stool Clostridium difficile Toxin Assay - Final Complete 03/06/25 14:37 Knee Left Gram Stain - Final Complete 03/06/25 14:37 Knee Left Anaerobic Culture - Final Complete 03/06/25 14:37 Aerobic Culture - Final Staphylococcus aureus Complete 03/04/25 13:29 Aspirate Gram Stain - Final Complete 03/04/25 13:29 Body Fluid Culture - Final Staphylococcus aureus Complete 02/19/25 17:27 Urine - [place] Urine Culture - Final Complete Problem List/Assessment/Plan Problem List/Assessment/Plan CALLED FROM [facility] RE ACTIVE BLEED TRACHEOSTOMY SITE AFEBRILE VSS TRACH IN PLACE ANCHORING SUTURES REMOVED SKIN INCISION SUTURES REMOVED IODINE APPLIED STERILE TECHNIQUE USED SNOW COAGULANT PLACED DEEP AROUND TRACH TUBE RETAINED BY SUBCUTANEOUS VICRYL SUTURES SKIN INCISION CLOSED USING SILK SUTURES ON EITHER SIDE OF TRACH. NO COMPLICATIONS BLEEDING CONTROLLED TRACH FLANGES SUTURED IN ALL FOUR QUADRANTS WITH XEROFOAM AROUND TRACH NURSING STAFF AT BEDSIDE Plan discussed with: Other My Orders My Orders Orders - YESI DREW MD Procedure Category Date Status Time Communication Order ORDERS 04/11/25 Transmitted 15:30 Communication Order ORDERS 04/11/25 Transmitted 18:00 Dietary Evaluation Review Comments: 1) Esau 1 pk BID 2) Refer Vulnerability Assessment Analyst on DC 3) Continue current plan of care Expected Outcomes/Goals: Pt will meet >75% estimated needs Fu 3-5 days YESI DREW MD April 11, 2025 22:41
[2025-04-12] VITALS (106 sets, daily range): BP systolic 92–152; BP diastolic 50–76; PULSE 63–74; RESP 14–19; TEMP 97–97.9; O2SAT 94–100
[2025-04-12 06:41] LABS: Basophils # (auto) 0.1 10 ^3/uL (0-0.2); Eosinophils # (auto) 0.1 10 ^3/uL (0-0.8); Lymphocytes # (auto) 1.5 10 ^3/uL (0.4-5.4); Monocytes # (auto) 0.6 10 ^3/uL (0-1.3)
[2025-04-12 06:45] LABS: Basophils % (auto) 1.4 % (0.0-2.0); Eosinophils % (auto) 1.9 % (0.0-7.0); Hematocrit 21.5 % (36.0-46.0); Hemoglobin 7.4 g/dL (12.2-16.2); Lymphocytes % (auto) 23.9 % (10.0-50.0); Mean Corpuscular Hemoglobin 29.8 pg (28.0-32.0); Mean Corpuscular Hgb Conc. 34.2 g/dL (32.0-36.0); Mean Corpuscular Volume 87.1 fL (80.0-100.0); Monocytes % (auto) 9.9 % (0.0-12.0); Neutrophils % (auto) 62.9 % (37.0-80.0); Nucleated Red Blood Cells % 0.2 %; Platelet Count (auto) 353 10^3/uL (140-450); Red Blood Cells 2.47 10^6/uL (4.0-5.20); Red Cell Distribution Width 17.9 % (11.8-14.3); White Blood Cell 6.4 10^3/uL (4.4-10.8)
[2025-04-12 07:01] LABS: Anion Gap 11 (5-15); Calcium 8.8 mg/dL (8.7-10.4); Potassium 3.8 mmol/L (3.5-5.1); Sodium 137 mmol/L (136-145)
[2025-04-12 07:07] LABS: BUN/Creatinine Ratio 19.9 (10.0-20.0); Glucose 83 mg/dL (74-106)
[2025-04-12 07:16] LABS: Blood Urea Nitrogen 27 mg/dL (9-23); Carbon Dioxide 16 mmol/L (20-31); Chloride 110 mmol/L (98-107)
--- NOTE | 2025-04-12 09:42 | DVHPN2 ---
Progress Note Date Seen: April 12, 2025 Medical Necessity Reason Pt with a Central, PICC or Fol: Yes The following are medically ne: Acosta Catheter Reason for acosta catheter: Strict I&O Objective vital signs Vital Sign Date Time Temp Pulse Resp B/P (MAP) Pulse Ox O2 Delivery O2 Flow Rate FiO2 04/12/25 08:00 18 100 Mechanical Ventilator+ 30 30 04/12/25 08:00 71 04/12/25 08:00 127/66 (86) 04/12/25 06:45 97.7 207.9 Total Intake and Output 04/11/25 04/11/25 04/12/25 15:00 23:00 07:00 Intake Total 833.736 ml 968.292 ml 969.992 ml Output Total 1500 ml 1100 ml Balance 833.736 ml -531.708 ml -130.008 ml medications Current Medications Medications Dose Ordered Sig/John Route Start Time Stop Time Status Last Admin Dose Admin Acetaminophen 650 mg Q6HP PRN PO 02/19/25 13:45 03/09/25 21:36 650 MG Diagnostic Test (Pha) 1 strip ACHS 02/19/25 17:00 04/12/25 06:22 1 STRIP Dextrose 50 ml UD PRN IV 02/19/25 15:45 04/11/25 21:04 50 ML Potassium Chloride 100 ml @ 50 mls/hr Q2H IV 02/19/25 23:15 02/20/25 05:14 Cancel Potassium Chloride 100 ml @ 50 mls/hr Q2H IV 02/20/25 07:15 02/20/25 11:14 UNV Calcium Acetate 1,334 mg TIDWMEALS PO 03/04/25 12:00 04/12/25 09:09 1,334 MG Ergocalciferol 50,000 unit Q7D PO 03/04/25 11:45 03/25/25 15:05 50,000 UNIT Zirconium Oxide 10 gm TID PO 03/07/25 14:00 Cancel Sodium Bicarbonate 50 ml/ Sodium Chloride 1,050 ml @ 100 mls/hr [id number] IV 03/07/25 11:45 Cancel Pantoprazole Sodium 40 mg BID IV 03/13/25 10:00 04/12/25 09:09 40 MG Albuterol 2.5 mg Q6HR NEB 03/13/25 12:00 04/12/25 06:11 2.5 MG Ipratropium [place] 0.5 mg Q6HR NEB 03/13/25 12:00 04/12/25 06:11 0.5 MG Saccharomyces Boulardii 250 mg DAILY PO 03/14/25 10:00 04/12/25 09:09 250 MG Atorvastatin Calcium 80 mg HS PO 03/24/25 22:00 04/11/25 21:52 80 MG Enoxaparin Sodium 40 mg DAILY SC 03/25/25 10:00 04/10/25 09:52 40 MG Aspirin 81 mg DAILY NG 03/25/25 10:00 04/10/25 09:46 81 MG Insulin Human Regular ACHS SC 03/30/25 22:00 04/10/25 22:09 2 UNITS Guaifenesin 200 mg Q4HP PRN PO 04/01/25 16:00 04/01/25 22:16 200 MG Vancomycin HCl 0 ml @ 0 mls/hr UD IV 04/02/25 18:30 04/14/25 18:30 Ondansetron HCl 4 mg Q8HP PRN PO 04/05/25 15:30 Fentanyl Citrate 250 ml @ 2.5 mls/hr Q24H IV 04/06/25 11:00 04/11/25 22:11 20 MLS/HR Dextrose 1,000 ml @ 75 mls/hr [id number] IV 04/07/25 07:45 04/12/25 02:29 75 MLS/HR Norepinephrine Bitartrate 250 ml @ 3.75 mls/hr Q24H IV 04/08/25 02:30 04/08/25 02:37 3.75 MLS/HR Enteral Nutritional Formula 1,000 ml 30ML/HR GT 04/08/25 09:30 Propofol 100 ml @ 2.232 mls/ hr Q24H IV 04/08/25 16:45 04/12/25 09:04 17.856 MLS/HR Cefiderocol 1.5 gm/Sodium Chloride 100 ml @ 33.333 mls/ hr Q8H IV 04/11/25 13:00 04/12/25 05:37 33.333 MLS/HR laboratory and microbiology Laboratory Tests 04/12/25 04:24 Test 04/12/25 04:24 Range/Units Serum Glucose 83 74-106 mg/dL Microbiology Date/Time Source Procedure Growth Status 04/06/25 20:35 Blood Blood Culture - Final NO GROWTH AFTER 5 DAYS OF INCUBATION. Complete 04/06/25 10:20 Sputum Gram Stain - Final Complete 04/06/25 10:20 Respiratory Culture - Final Klebsiella pneumoniae - ESBL Complete 04/02/25 13:00 Stool Clostridium difficile Toxin Assay - Final Complete 03/06/25 14:37 Knee Left Gram Stain - Final Complete 03/06/25 14:37 Knee Left Anaerobic Culture - Final Complete 03/06/25 14:37 Aerobic Culture - Final Staphylococcus aureus Complete 03/04/25 13:29 Aspirate Gram Stain - Final Complete 03/04/25 13:29 Body Fluid Culture - Final Staphylococcus aureus Complete 02/19/25 17:27 Urine - [place] Urine Culture - Final Complete Problem List/Assessment/Plan Problem List/Assessment/Plan INTUBATED AFEBRILE VSS TRACH IN PLACE NO ACTIVE BLEEDING NURSING STAFF AT BEDSIDE Plan discussed with: Other My Orders My Orders Orders - YESI DREW MD Procedure Category Date Status Time Communication Order ORDERS 04/11/25 Transmitted 15:30 Communication Order ORDERS 04/11/25 Transmitted 18:00 Dietary Evaluation Review Comments: 1) Esau 1 pk BID 2) Refer Campground Attendant on DC 3) Continue current plan of care Expected Outcomes/Goals: Pt will meet >75% estimated needs Fu 3-5 days YESI DREW MD April 12, 2025 09:42
[2025-04-12 13:16] LABS: Base Excess -6.5 mmol/L (-2.0-3.0)
--- NOTE | 2025-04-12 15:48 | DVHPN2 ---
Subjective in bed on bipap Reviewed: Care Plan, H&P, Labs, Medications, Previous Orders, Radiology, Other (Consultations) Changes from previous H/P or p: No Changes General: Per HPI Objective Vitals Vital Signs Date Time Temp Pulse Resp B/P (MAP) Pulse Ox O2 Delivery O2 Flow Rate FiO2 04/12/25 14:19 68 18 115/59 (77) 100 30 04/12/25 12:00 Mechanical Ventilator+ 04/12/25 09:45 97.7 207.9 Intake/Output Intake and Output 04/12/25 07:00 Intake Total 2884.876 ml Output Total 2600 ml Balance 284.876 ml Intake Oral 80 ml IV Total 2804.876 ml Output Urine Total 2600 ml General Appearance: mild distress, Other (Chemically sedated) HEENT: Atraumatic, PERRLA Lungs: Clear to auscultation, Normal air movement, Other Cardiovascular: Regular rate, Normal S1, Normal S2 Abdomen: Normal bowel sounds, Soft Genitourinary: No Apparent Abnormalities, Other Extremities: Other Neuro: Cranial nerves 3-12 NL, Other Skin: Dry, Intact, Wounds Psych/Mental Status: Other Medications Current Medications Medications Dose Ordered Sig/John Route Start Time Stop Time Status Last Admin Dose Admin Acetaminophen 650 mg Q6HP PRN PO 02/19/25 13:45 03/09/25 21:36 650 MG Diagnostic Test (Pha) 1 strip ACHS 02/19/25 17:00 04/12/25 11:43 1 STRIP Dextrose 50 ml UD PRN IV 02/19/25 15:45 04/11/25 21:04 50 ML Potassium Chloride 100 ml @ 50 mls/hr Q2H IV 02/19/25 23:15 02/20/25 05:14 Cancel Potassium Chloride 100 ml @ 50 mls/hr Q2H IV 02/20/25 07:15 02/20/25 11:14 UNV Calcium Acetate 1,334 mg TIDWMEALS PO 03/04/25 12:00 04/12/25 11:43 1,334 MG Ergocalciferol 50,000 unit Q7D PO 03/04/25 11:45 03/25/25 15:05 50,000 UNIT Zirconium Oxide 10 gm TID PO 03/07/25 14:00 Cancel Sodium Bicarbonate 50 ml/ Sodium Chloride 1,050 ml @ 100 mls/hr [id number] IV 03/07/25 11:45 Cancel Pantoprazole Sodium 40 mg BID IV 03/13/25 10:00 04/12/25 09:09 40 MG Albuterol 2.5 mg Q6HR NEB 03/13/25 12:00 04/12/25 12:27 2.5 MG Ipratropium [place] 0.5 mg Q6HR NEB 03/13/25 12:00 04/12/25 12:27 0.5 MG Saccharomyces Boulardii 250 mg DAILY PO 03/14/25 10:00 04/12/25 09:09 250 MG Atorvastatin Calcium 80 mg HS PO 03/24/25 22:00 04/11/25 21:52 80 MG Enoxaparin Sodium 40 mg DAILY SC 03/25/25 10:00 04/10/25 09:52 40 MG Aspirin 81 mg DAILY NG 03/25/25 10:00 04/10/25 09:46 81 MG Insulin Human Regular ACHS SC 03/30/25 22:00 04/12/25 11:45 2 UNITS Guaifenesin 200 mg Q4HP PRN PO 04/01/25 16:00 04/01/25 22:16 200 MG Vancomycin HCl 0 ml @ 0 mls/hr UD IV 04/02/25 18:30 04/14/25 18:30 Ondansetron HCl 4 mg Q8HP PRN PO 04/05/25 15:30 Fentanyl Citrate 250 ml @ 2.5 mls/hr Q24H IV 04/06/25 11:00 04/12/25 10:42 20 MLS/HR Dextrose 1,000 ml @ 75 mls/hr [id number] IV 04/07/25 07:45 04/12/25 02:29 75 MLS/HR Norepinephrine Bitartrate 250 ml @ 3.75 mls/hr Q24H IV 04/08/25 02:30 04/08/25 02:37 3.75 MLS/HR Enteral Nutritional Formula 1,000 ml 30ML/HR GT 04/08/25 09:30 Propofol 100 ml @ 2.232 mls/ hr Q24H IV 04/08/25 16:45 04/12/25 14:28 17.856 MLS/HR Cefiderocol 1.5 gm/Sodium Chloride 100 ml @ 33.333 mls/ hr Q8H IV 04/11/25 13:00 04/12/25 05:37 33.333 MLS/HR Laboratory Results Laboratory Tests 04/12/25 04:24 Chemistry Test 04/12/25 04:24 Calcium Level 8.8 mg/dL (8.7-10.4) Urinalysis Test 02/19/25 17:27 03/04/25 05:00 Urine Color Colorless (Yellow) Urine Clarity Clear (Clear) Urine pH 6.5 (5.0-9.0) Urine Specific [place] 1.008 (1.001-1.035) Urine Protein 2+ (Negative) H Urine Ketones 1+ (Negative) H Urine Blood 1+ /uL (Negative) H Urine Nitrite Negative (Negative) Urine Bilirubin Negative (Negative) Urine Urobilinogen Normal mg/dL (Negative) Urine Leukocyte Esterase Negative /uL (Negative) Urine RBC 6 /hpf (0 - 4) Urine Microscopic WBC 2 /HPF (0-5) Urine Squamous Epithelial Cells Few /hpf (<5) Urine Bacteria None seen /hpf (None Seen) Urine Glucose 2+ mg/dL (Normal) H Urine Creatinine 25.51 mg/dL (30.0-125.0) L Urine Protein/Creatinine Ratio 14.00 Urine Sodium 80 mmol/L (40-220) Urine Total Protein 357.1 mg/dL (1-14) H Blood Gas Results Test 04/12/25 08:33 Arterial Blood pH 7.462 (7.350-7.450) FiO2 % 30.0 Microbiology Microbiology Date/Time Source Procedure Growth Status 04/06/25 20:35 Blood Blood Culture - Final NO GROWTH AFTER 5 DAYS OF INCUBATION. Complete 04/06/25 10:20 Sputum Gram Stain - Final Complete 04/06/25 10:20 Respiratory Culture - Final Klebsiella pneumoniae - ESBL Complete 04/02/25 13:00 Stool Clostridium difficile Toxin Assay - Final Complete 03/06/25 14:37 Knee Left Gram Stain - Final Complete 03/06/25 14:37 Knee Left Anaerobic Culture - Final Complete 03/06/25 14:37 Aerobic Culture - Final Staphylococcus aureus Complete 03/04/25 13:29 Aspirate Gram Stain - Final Complete 03/04/25 13:29 Body Fluid Culture - Final Staphylococcus aureus Complete 02/19/25 17:27 Urine - [place] Urine Culture - Final Complete Assessment/Plan Assessment/Plan Multiple acute/subacute strokes Left lower extremity cellulitis Rule out left septic knee Hypokalemia Acute kidney injury likely hemodynamically mediated due to vasomotor nephropathy Chronic kidney disease Peripheral vascular disease status post right [id number] amputation 6 months ago Poorly controlled type 2 diabetes Sepsis Hypertension Mixed hyperlipidemia Polysubstance use disorder Diabetic neuropathy -? Suicidal ideation -septic bursitis with Staphylococcus aureus -septic shock Angioedema of the tongue -hyponatremia -patient with ESBL and CRE in the sputum -cardiac arrest Plan: -events: s/p tracheostomy yesterday -continue antibiotics per ID --hold tube feedings -hold vacation sedation today -hold anticoagulants -PUD prophylaxis -bronchodilators -continue PPI Repeat labs and chest x-ray in a.m. Critical care time spent with patient discussing and formulating plan of care: 90 minutes. This does not include time spent performing procedures. Plan discussed with: Other (nurse) Date of Service: April 12, 2025 Billing Provider: YOLANDE JOHNSTON MD Common Visit Codes: [id number] CARE 30-74 MIN YOLANDE JOHNSTON MD April 12, 2025 15:48
--- NOTE | 2025-04-12 19:17 | DVHINCON2 ---
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 Patient apparently was had some difficulty moving on the left side most of the day and the speech was off continue to remain slurred and she had two episodes of cardiac events resulting in intubation and has patient has been having problems with extubation and had a tracheostomy done based two days ago and now the reason for the GI consult is for possible PEG tube placement Past Medical History Hypertension hyperlipidemia GERD depression diabetes Past Surgical History Below-knee amputation in July 2024 Family History: Cancer Aunt Family history: Diabetes mellitus Grandfather Family History Noncontributory Social History History of smoking as well as taking marijuana no alcohol Allergies: Coded Allergies: NO KNOWN ALLERGIES (Unverified , 01/27/21) Home Meds Active Scripts Buspirone Hcl (Buspirone Hcl) 5 Mg Tab, 1 TAB PO BID, #60 TAB 2 Refills Prov:DOMENICA SHAH MD 04/14/24 Pantoprazole Sodium Sesquihydr (Protonix) 40 Mg Tab, 40 MG PO DAILY for 30 Days, #30 TAB Prov:LEONARDO JACKSON MD 04/11/22 Olanzapine (OLANZAPINE) 5 Mg Tab, 5 MG PO DAILY for 30 Days, #30 TAB Prov:JOAQUIN ISAAC MD 05/09/20 Reported Medications Duloxetine HCl (Duloxetine HCl) 30 Mg Cap, 1 CAP PO DAILY 02/19/25 Atorvastatin Calcium (ATORVASTATIN CALCIUM) 40 Mg Tab, 1 TAB PO DAILY 02/19/25 Gemfibrozil (Gemfibrozil) 600 Mg Tab, 1 TAB PO BIDWM 02/19/25 Lamotrigine (Lamotrigine) 25 Mg Tab, 1 TAB PO DAILY 02/19/25 Hydroxyzine Hcl (Hydroxyzine Hcl) 25 Mg Tab, 1 TAB PO DAILY 02/19/25 Empagliflozin (Jardiance) 10 Mg Tab, 1 TAB PO DAILY 06/05/24 Ondansetron HCl (Ondansetron) 4 Mg Tab, 1 TAB PO BID PRN 06/05/24 Pioglitazone Hydrochloride (ACTOS TABLET) 30 Mg Tb, 1 TAB PO DAILY 06/05/24 Insulin Lispro (Insulin Lispro Kwikpen) 100 Unit/Ml Inj, UNITS SC 06/05/24 Insulin Glargine (Basaglar Kwikpen) 100 Unit/Ml Inj, UNITS SC 06/05/24 Tramadol Hcl (Tramadol Hcl) 50 Mg Tab, 1 TAB PO Q6HR 04/06/22 Review of Systems Unable to get much details Vital Signs Vital Signs Date Time Temp Pulse Resp B/P (MAP) Pulse Ox O2 Delivery O2 Flow Rate FiO2 04/12/25 18:30 97.5 64 18 138/65 (89) 100 207.5 04/12/25 18:00 Mechanical Ventilator+ 30 30 Physical Exam Patient is intubated has a tracheostomy HEENT examination no pallor no icterus Lungs scattered rales Cardiovascular unremarkable Abdomen is soft no tenderness no rigidity no guarding no masses Extremities below-knee amputation in the right Labs/Diagnostic Data Labs Test 04/12/25 17:57 04/12/25 08:33 04/12/25 04:24 04/11/25 07:09 Range/Units POC Glucose 145 H 70-106 mg/dl Blood Gas Specimen Type Arterial Blood Gas Sample Site Right radial Blood Gas Patient Temperature 37.0 Arterial Blood Date Drawn [id number] Arterial Blood pH 7.462 H 7.350-7.450 Arterial Blood Partial Pressure CO2 22.4 L 32.0-45.0 mmHg Arterial Blood Partial Pressure O2 86.4 83.0-108.0 mmHg Arterial Blood HCO3 15.6 L 21.0-28.0 mmol/L Arterial Blood Oxygen Saturation 96.3 94.0-98.0 % Arterial Blood Base Excess -6.5 L -2.0-3.0 mmol/L Arterial Blood Oxyhemoglobin 95.5 94.0-98.0 % Arterial Blood Carboxyhemoglobin 0.3 L 0.5-1.5 % Arterial Blood Methemoglobin 0.5 0.0-1.5 % Fermin Test Modified Blood Gas Total Hemoglobin 11.20 L 12.0-16.0 g/dL Blood Gas Set Respiration Rate 18.0 Blood Gas Modality Vent - ac FiO2 % 30.0 Blood Gas Tidal Volume 400.0 Blood Gas PEEP or CPAP 5.0 White Blood Count 6.4 4.4-10.8 10^3/uL Red Blood Count 2.47 L 4.0-5.20 10^6/uL Hemoglobin 7.4 #L 12.2-16.2 g/dL Hematocrit 21.5 #L 36.0-46.0 % Mean Corpuscular Volume 87.1 80.0-100.0 fL Mean Corpuscular Hemoglobin 29.8 28.0-32.0 pg Mean Corpuscular Hemoglobin Concent 34.2 32.0-36.0 g/dL Red Cell Distribution Width 17.9 H 11.8-14.3 % Platelet Count 353 140-450 10^3/uL Mean Platelet Volume 8.5 6.9-10.8 fL Neutrophils (%) (Auto) 62.9 37.0-80.0 % Lymphocytes (%) (Auto) 23.9 10.0-50.0 % Monocytes (%) (Auto) 9.9 0.0-12.0 % Eosinophils (%) (Auto) 1.9 0.0-7.0 % Basophils (%) (Auto) 1.4 0.0-2.0 % Neutrophils # (Auto) 4.0 1.6-8.6 10 ^3/uL Lymphocytes # (Auto) 1.5 0.4-5.4 10 ^3/uL Monocytes # (Auto) 0.6 0-1.3 10 ^3/uL Eosinophils # (Auto) 0.1 0-0.8 10 ^3/uL Basophils # (Auto) 0.1 0-0.2 10 ^3/uL Nucleated Red Blood Cells 0.2 % Sodium Level 137 136-145 mmol/L Potassium Level 3.8 3.5-5.1 mmol/L Chloride Level 110 H 98-107 mmol/L Carbon Dioxide Level 16 L 20-31 mmol/L Anion Gap 11 5-15 Blood Urea Nitrogen 27 H 9-23 mg/dL Creatinine 1.36 H 0.550-1.02 mg/dL Glomerular Filtration Rate Calc 46 >90 mL/min BUN/Creatinine Ratio 19.9 10.0-20.0 Serum Glucose 83 74-106 mg/dL Calcium Level 8.8 8.7-10.4 mg/dL Prothrombin Time 11.4 9.3-11.8 sec Prothrombin Time INR 1.08 0.9-1.15 Activated Partial Thromboplast Time 37.0 H 24.5-34.5 SEC Random Vancomycin Level 17.4 H 5-10 ug/mL Test 04/09/25 05:37 04/09/25 05:00 04/07/25 05:11 04/06/25 16:30 Range/Units Blood Gas Spontaneous Rate 21 Blood Gas Critical Value Read Back Yes Blood Gas Notified Whom Md. cal harkins Blood Gas Notified Time [id number] Blood Gas Notified By Rt jayshree medina Total Bilirubin < 0.2 L 0.2-1.0 mg/dL Aspartate Amino Transferase (AST) 10 L 13-40 U/L Alanine Aminotransferase (ALT) 9 7-40 U/L Alkaline Phosphatase 127 H 46-116 U/L Total Protein 4.3 L 5.7-8.2 g/dL Albumin 2.0 L 3.2-4.8 g/dL Phosphorus Level 3.2 2.4-5.1 mg/dL Magnesium Level 1.7 1.6-2.6 mg/dL Vancomycin Level Trough 27.4 H 5-10 ug/mL Test 04/06/25 12:55 04/06/25 11:00 04/01/25 08:30 03/30/25 07:19 Range/Units Lactic Acid Level 1.5 0.4-2.0 mmol/L Ammonia < 10 L 11-32 umol/L B-Type Natriuretic Peptide 153.96 0-100 pg/mL Venous Blood pH 7.441 H 7.320-7.430 Venous Blood pCO2 at Patient Temp 23.4 L 38.0-54.0 mmHg Venous Blood pO2 at Patient Temp 41.2 23.0-48.0 mmHg Venous Blood HCO3 15.6 L 22.0-29.0 mmol/L Venous Blood Base Excess -6.3 L -2.0-3.0 mmol/L Blood Gas EPAP 7 Blood Gas IPAP 12 Test 03/26/25 18:45 03/26/25 10:24 03/25/25 04:40 03/22/25 05:17 Range/Units Blood Gas Spontaneous Tidal Volume 392 Blood Gas Inspiratory Pressure 18.0 Bl Gas Inspiratory/Expiratory Ratio 1:1.9 Blood Gas Pressure Support 8 Triglycerides Level 214 H < 150 mg/dL Differential Total Cells Counted 100.0 100 Neutrophils % (Manual) 80 37.0-80.0 Band Neutrophils % (Manual) 2 Lymphocytes % (Manual) 13 10.0-50.0 Monocytes % (Manual) 4 0-12 Eosinophils % (Manual) 1 0-7 Basophils % (Manual) 0 0.0-2.0 Metamyelocytes % (manual) 0 Myelocytes % (Manual) 0 Promyelocytes % (Manual) 0 Blast Cells % (Manual) 0 Reactive Lymphocytes 0 Platelet Estimate Increased Test 03/20/25 21:45 03/16/25 04:35 03/13/25 02:35 03/07/25 05:23 Range/Units Anisocytosis (manual) Slight Lactate Dehydrogenase 355 H 120-246 U/L D-Dimer, Quantitative 2.32 H 0.0-0.49 mg/L FEU [place] Cells Few Test 03/06/25 04:52 03/04/25 05:00 03/03/25 14:09 03/03/25 04:41 Range/Units Erythrocyte Sedimentation Rate 116 H 0-20 mm/hr C-Reactive Protein High Sensitivity 5.00 H <1.0 mg/dL Urine Creatinine 25.51 L 30.0-125.0 mg/dL Urine Protein/Creatinine Ratio 14.00 Urine Sodium 80 40-220 mmol/L Urine Total Protein 357.1 H 1-14 mg/dL Vitamin D 25-Hydroxy 7.2 L 30.0-100 ng/mL Parathyroid Hormone (Intact) 28.5 18.4-80.1 pg/mL Test 03/02/25 05:58 02/25/25 12:42 02/23/25 13:36 02/21/25 15:30 Range/Units Beta HCG, Quantitative 1.2 L 1.5-4.2 mIU/mL Body Fluid Source Knee fluid Body Fluid pH 8.0 Body Fluid WBC (Manual) 225 H 0-200 CUMM Body Fluid RBC (Manual) 325 0-2000 CUMM Body Fluid Mononuclear Cells 10 % Body Fluid Polymorphonuclear Cells 90 H 0-25 % Body Fluid Glucose 112 . mg/dL Anti-Nuclear Antibody Comment Comment . Cytoplasmic ANCA (c-ANCA) Antibody <1:20 Neg:<1:20 titer Anti-Proteinase 3 (c-ANCA) <0.2 0.0-0.9 units Atypical p-ANCA <1:20 Neg:<1:20 titer Perinuclear ANCA (p-ANCA) Antibody <1:20 Neg:<1:20 titer Myeloperoxidase Antibody <0.2 0.0-0.9 units NATALIIA-1 Antibody <0.2 0.0-0.9 AI SS-A/Ro Antibody <0.2 0.0-0.9 AI SS-B/La Antibody <0.2 0.0-0.9 AI Sm Antibody <0.2 0.0-0.9 AI AGRICULTURAL EQUIPMENT SALESPERSON Antibody <0.2 0.0-0.9 AI Scl-70 (Scleroderma) Antibody <0.2 0.0-0.9 AI Anti-Double Strand DNA Antibody <1 0-9 IU/mL Chromatin Antibody <0.2 0.0-0.9 AI Centromere B Antibody <0.2 0.0-0.9 AI Complement C3 172 H 82-167 mg/dL Complement C4 34 12-38 mg/dL Uric Acid 5.1 3.1-7.8 mg/dL Test 02/20/25 06:00 02/19/25 17:27 02/19/25 15:25 02/19/25 11:30 Range/Units Hemoglobin A1c 9.9 H <5.7 % A1C Cholesterol Level 304 H < 200 mg/dL LDL Cholesterol 207 H < 100 mg/dL HDL Cholesterol 38 L 40-59 mg/dL Beta-Hydroxybutyric Acid 0.922 H < 0.4 mmol/L Urine Color Colorless Yellow Urine Clarity Clear Clear Urine pH 6.5 5.0-9.0 Urine Specific [place] 1.008 1.001-1.035 Urine Protein 2+ H Negative Urine Ketones 1+ H Negative Urine Blood 1+ H Negative /uL Urine Nitrite Negative Negative Urine Bilirubin Negative Negative Urine Urobilinogen Normal Negative mg/dL Urine Leukocyte Esterase Negative Negative /uL Urine RBC 6 0 - 4 /hpf Urine Microscopic WBC 2 0-5 /HPF Urine Squamous Epithelial Cells Few <5 /hpf Urine Bacteria None seen None Seen /hpf Urine Glucose 2+ H Normal mg/dL Urine Opiates Screen Neg NEGATIVE Urine Fentanyl Screen Neg NEGATIVE Urine Barbiturates Screen Neg NEGATIVE Urine Phencyclidine Screen Neg NEGATIVE Urine Amphetamines Screen Neg NEGATIVE Urine Benzodiazepines Screen Neg NEGATIVE Urine Cocaine Screen Neg NEGATIVE Urine Cannabinoids Screen Pos NEGATIVE Troponin I High Sensitivity 25 </=34 ng/L Plasma/Serum Blood Alcohol < 3.0 <10 mg/dL Microbiology Date/Time Source Procedure Growth Status 04/06/25 20:35 Blood Blood Culture - Final NO GROWTH AFTER 5 DAYS OF INCUBATION. Complete 04/06/25 10:20 Sputum Gram Stain - Final Complete 04/06/25 10:20 Respiratory Culture - Final Klebsiella pneumoniae - ESBL Complete 04/02/25 13:00 Stool Clostridium difficile Toxin Assay - Final Complete 03/06/25 14:37 Knee Left Gram Stain - Final Complete 03/06/25 14:37 Knee Left Anaerobic Culture - Final Complete 03/06/25 14:37 Aerobic Culture - Final Staphylococcus aureus Complete 03/04/25 13:29 Aspirate Gram Stain - Final Complete 03/04/25 13:29 Body Fluid Culture - Final Staphylococcus aureus Complete 02/19/25 17:27 Urine - [place] Urine Culture - Final Complete Assessment [age]-year-old with a history of hyperlipidemia hypertension anxiety depression GERD diabetes has got a had cardiac events resulting in acute respiratory failure with needing resuscitation but and now unfortunately ventilator dependent with tracheostomy done and needs a G-tube placement now Plan/Recommendation We will recommend to get the consent from the family and as soon as the consent is obtained we will try to arrange it for Monday Thank you Dr. Rodriguez Plan discussed with: Other KEVIN RODRIGUEZ MD April 12, 2025 19:17
--- NOTE | 2025-04-12 19:29 | DVHPN2 ---
Progress Note - Dictate Date Seen: April 12, 2025 Medical Necessity Reason Pt with a Central, PICC or Fol: Yes The following are medically ne: Acosta Catheter Reason for acosta catheter: Strict I&O Subjective Patient seen and examined at bedside. Sedated, on mechanical ventilator. s/p trach Overnight events reviewed. vital signs Vital Sign Date Time Temp Pulse Resp B/P (MAP) Pulse Ox O2 Delivery O2 Flow Rate FiO2 04/12/25 18:30 97.5 64 18 138/65 (89) 100 207.5 04/12/25 18:00 Mechanical Ventilator+ 30 30 Total Intake and Output 04/11/25 04/11/25 04/12/25 15:00 23:00 07:00 Intake Total 833.736 ml 968.292 ml 1082.848 ml Output Total 1500 ml 1100 ml Balance 833.736 ml -531.708 ml -17.152 ml medications Current Medications Medications Dose Ordered Sig/John Route Start Time Stop Time Status Last Admin Dose Admin Acetaminophen 650 mg Q6HP PRN PO 02/19/25 13:45 03/09/25 21:36 650 MG Diagnostic Test (Pha) 1 strip ACHS 02/19/25 17:00 04/12/25 17:00 1 STRIP Dextrose 50 ml UD PRN IV 02/19/25 15:45 04/11/25 21:04 50 ML Potassium Chloride 100 ml @ 50 mls/hr Q2H IV 02/19/25 23:15 02/20/25 05:14 Cancel Potassium Chloride 100 ml @ 50 mls/hr Q2H IV 02/20/25 07:15 02/20/25 11:14 UNV Calcium Acetate 1,334 mg TIDWMEALS PO 03/04/25 12:00 04/12/25 18:06 1,334 MG Ergocalciferol 50,000 unit Q7D PO 03/04/25 11:45 03/25/25 15:05 50,000 UNIT Zirconium Oxide 10 gm TID PO 03/07/25 14:00 Cancel Sodium Bicarbonate 50 ml/ Sodium Chloride 1,050 ml @ 100 mls/hr [id number] IV 03/07/25 11:45 Cancel Pantoprazole Sodium 40 mg BID IV 03/13/25 10:00 04/12/25 09:09 40 MG Albuterol 2.5 mg Q6HR NEB 03/13/25 12:00 04/12/25 18:49 2.5 MG Ipratropium [place] 0.5 mg Q6HR NEB 03/13/25 12:00 04/12/25 18:49 0.5 MG Saccharomyces Boulardii 250 mg DAILY PO 03/14/25 10:00 04/12/25 09:09 250 MG Atorvastatin Calcium 80 mg HS PO 03/24/25 22:00 04/11/25 21:52 80 MG Enoxaparin Sodium 40 mg DAILY SC 03/25/25 10:00 04/10/25 09:52 40 MG Aspirin 81 mg DAILY NG 03/25/25 10:00 04/10/25 09:46 81 MG Insulin Human Regular ACHS SC 03/30/25 22:00 04/12/25 17:00 2 UNITS Guaifenesin 200 mg Q4HP PRN PO 04/01/25 16:00 04/01/25 22:16 200 MG Vancomycin HCl 0 ml @ 0 mls/hr UD IV 04/02/25 18:30 04/14/25 18:30 Ondansetron HCl 4 mg Q8HP PRN PO 04/05/25 15:30 Fentanyl Citrate 250 ml @ 2.5 mls/hr Q24H IV 04/06/25 11:00 04/12/25 10:42 20 MLS/HR Dextrose 1,000 ml @ 75 mls/hr [id number] IV 04/07/25 07:45 04/12/25 02:29 75 MLS/HR Norepinephrine Bitartrate 250 ml @ 3.75 mls/hr Q24H IV 04/08/25 02:30 04/08/25 02:37 3.75 MLS/HR Enteral Nutritional Formula 1,000 ml 30ML/HR GT 04/08/25 09:30 Propofol 100 ml @ 2.232 mls/ hr Q24H IV 04/08/25 16:45 04/12/25 14:28 17.856 MLS/HR Cefiderocol 1.5 gm/Sodium Chloride 100 ml @ 33.333 mls/ hr Q8H IV 04/11/25 13:00 04/12/25 13:00 33.333 MLS/HR objective Gen.: Patient lying in bed in medical ICU. Sedated, on mechanical ventilator via trach. Head: Normocephalic, atraumatic. Eyes: PERRLA. Ears: Normal external anatomy. Throat: Endotracheal tube and orogastric tube in place. Neck: Trach in place. Chest: Transmitted breath sounds bilaterally. Decreased air entry bilaterally. No wheezing. Bibasilar crackles. Cardiovascular: Positive S1, positive S2. Regular rate and rhythm. Abdomen: Positive bowel sounds in all 4 quadrants. Soft, nontender, nondistended. : Acosta in place. Normal external genitalia. Rectal: Deferred. Skin: Warm, dry. Intact. Extremities: 2+ radial pulses bilaterally. No lower extremity edema. Right BKA. Neuro: Sedated. laboratory and microbiology Laboratory Tests 04/12/25 04:24 Test 04/12/25 04:24 Range/Units Serum Glucose 83 74-106 mg/dL Assessment/Plan Impression: Acute hypoxic respiratory failure On mechanical ventilator S/p cardiac arrest with ROSC Multiple acute/subacute strokes. Altered mental status Acute kidney injury. Hypertension, newly diagnosed. Insulin-dependent diabetes mellitus. Polysubstance use Peripheral vascular disease, s/p right BKA 6 months ago. Sepsis Events: S/p tracheostomy - 8.0 Sascha Remains on vent support AC mode with RR 18, VT 400, PEEP 5, FIO2 30% Trach care per RT Hemorrhage around trach has resolved. Awaiting PEG placement. Sedated on Propofol and Fentanyl drip. Off Levophed, hemodynamically stable. Monitor hemoglobin - trended down to 7.4 g/dL Transfuse if less than 7.0 g/dL. Head of bed elevation Aspiration precautions Continue bronchodilators Continue antibiotics. Follow up cultures On statin Tube feeds for nutritional support ABG reviewed, notable for alkalemia Protonix BID for GI prophylaxis Lovenox for DVT prophylaxis Labs and imaging reviewed. Rest of plan as noted below. Plan: S/p cardiac arrest S/p placement on mechanical ventilator. AC mode with RR 18, VT 400, PEEP 5, FIO2 30% S/p tracheostomy - 8.0 Sascha Titrate FIO2 to keep O2 saturation above 90%. VAP bundle. Daily ABG and CXR while intubated Sedate for ventilator synchrony HOB elevation Aspiration precautions Pressors as necessary for hemodynamic support Titrate to keep mean arterial pressure greater than 65 mmHg. Bronchodilators Continue antibiotics. F/u cultures. Accu-Cheks, ISS PRN. Monitor renal function Monitor electrolytes Supplement as needed Continue psych meds Tube feeds for nutritional support Pressors as necessary for hemodynamic support Titrate to keep mean arterial pressure greater than 65 mmHg. GI prophylaxis - Protonix. DVT prophylaxis - Lovenox. Prognosis: Poor given patient's multiple co-morbidities. Condition: Critical Rest of plan per hospitalist and other consultants. A total of 35 minutes of critical care time was spent reviewing the patient record, examining the patient, making a diagnostic and therapeutic plan, discussing this plan with the medical personnel, following up on diagnostic studies and following the patient for clinical stability excluding any and all procedures. At least 50% of this time was spent in direct, [id number] contact. Thank you, FRANCISCO Alanis, for allowing me to participate in this patient's care. Further recommendations will depend on the patient's clinical course. Please do not hesitate to contact me if you have any questions or concerns. This medical document was created using an electronic medical record system with [employer] dictation system. Although these documentations are being carefully reviewed, there may still be some phonetic and typographical changes. The errors are purely typographical, due to imperfection on the software program, and do not reflect any compromise in the patient's medical care. Dietary Evaluation Review Comments: 1) Esau 1 pk BID 2) Refer Heavy Equipment Technician on DC 3) Continue current plan of care Expected Outcomes/Goals: Pt will meet >75% estimated needs Fu 3-5 days Plan discussed with: Other (ASHLEY Mckoy) Critical Care Time(min): 35 LARRY HERRERA MD April 12, 2025 19:29
--- NOTE | 2025-04-12 20:26 | DVHPN2 ---
Consult Progress Note Date Seen: April 12, 2025 Subjective Patient reports: Other (doing well on trach , had a sedation holiday but now restarted on sedation ) Objective vital signs Vital Sign Date Time Temp Pulse Resp B/P (MAP) Pulse Ox O2 Delivery O2 Flow Rate FiO2 04/12/25 20:00 68 04/12/25 20:00 30 04/12/25 20:00 18 100 Mechanical Ventilator+ 04/12/25 18:49 125/58 (80) 04/12/25 18:30 97.5 207.5 Total Intake and Output 04/11/25 04/11/25 04/12/25 14:59 22:59 06:59 Intake Total 800.436 ml 984.628 ml 1082.848 ml Output Total 1500 ml 1100 ml Balance 800.436 ml -515.372 ml -17.152 ml medications Current Medications Medications Dose Ordered Sig/John Route Start Time Stop Time Status Last Admin Dose Admin Acetaminophen 650 mg Q6HP PRN PO 02/19/25 13:45 03/09/25 21:36 650 MG Diagnostic Test (Pha) 1 strip ACHS 02/19/25 17:00 04/12/25 17:00 1 STRIP Dextrose 50 ml UD PRN IV 02/19/25 15:45 04/11/25 21:04 50 ML Potassium Chloride 100 ml @ 50 mls/hr Q2H IV 02/19/25 23:15 02/20/25 05:14 Cancel Potassium Chloride 100 ml @ 50 mls/hr Q2H IV 02/20/25 07:15 02/20/25 11:14 UNV Calcium Acetate 1,334 mg TIDWMEALS PO 03/04/25 12:00 04/12/25 18:06 1,334 MG Ergocalciferol 50,000 unit Q7D PO 03/04/25 11:45 03/25/25 15:05 50,000 UNIT Zirconium Oxide 10 gm TID PO 03/07/25 14:00 Cancel Sodium Bicarbonate 50 ml/ Sodium Chloride 1,050 ml @ 100 mls/hr [id number] IV 03/07/25 11:45 Cancel Pantoprazole Sodium 40 mg BID IV 03/13/25 10:00 04/12/25 09:09 40 MG Albuterol 2.5 mg Q6HR NEB 03/13/25 12:00 04/12/25 18:49 2.5 MG Ipratropium [place] 0.5 mg Q6HR NEB 03/13/25 12:00 04/12/25 18:49 0.5 MG Saccharomyces Boulardii 250 mg DAILY PO 03/14/25 10:00 04/12/25 09:09 250 MG Atorvastatin Calcium 80 mg HS PO 03/24/25 22:00 04/11/25 21:52 80 MG Enoxaparin Sodium 40 mg DAILY SC 03/25/25 10:00 04/10/25 09:52 40 MG Aspirin 81 mg DAILY NG 03/25/25 10:00 04/10/25 09:46 81 MG Insulin Human Regular ACHS SC 03/30/25 22:00 04/12/25 17:00 2 UNITS Guaifenesin 200 mg Q4HP PRN PO 04/01/25 16:00 04/01/25 22:16 200 MG Vancomycin HCl 0 ml @ 0 mls/hr UD IV 04/02/25 18:30 04/14/25 18:30 Ondansetron HCl 4 mg Q8HP PRN PO 04/05/25 15:30 Fentanyl Citrate 250 ml @ 2.5 mls/hr Q24H IV 04/06/25 11:00 04/12/25 10:42 20 MLS/HR Dextrose 1,000 ml @ 75 mls/hr [id number] IV 04/07/25 07:45 04/12/25 02:29 75 MLS/HR Norepinephrine Bitartrate 250 ml @ 3.75 mls/hr Q24H IV 04/08/25 02:30 04/08/25 02:37 3.75 MLS/HR Enteral Nutritional Formula 1,000 ml 30ML/HR GT 04/08/25 09:30 Propofol 100 ml @ 2.232 mls/ hr Q24H IV 04/08/25 16:45 04/12/25 19:44 17.856 MLS/HR Cefiderocol 1.5 gm/Sodium Chloride 100 ml @ 33.333 mls/ hr Q8H IV 04/11/25 13:00 04/12/25 13:00 33.333 MLS/HR laboratory and microbiology Laboratory Tests 04/12/25 04:24 Test 04/12/25 04:24 Range/Units Serum Glucose 83 74-106 mg/dL Problem List/Assessment/Plan Problems(with codes): (1) Intractable vomiting (2) Acute abdominal pain (3) Uncontrolled diabetes mellitus (4) UTI (urinary tract infection) (5) Sepsis (6) TATIANNA (acute kidney injury) (7) Substance abuse Problem List/Assessment/Plan Pneumonia ESBL Klebsiella, Carbapenemic resistant Pseudomonas positive sputum culture , possible due to ventilator associated pneumonia Sepsis probably due to above Left patellar bursitis, I&D w bursectomy performed on 03/07/25 Left knee culture growing MSSA Left foot ulcer, dorsal aspect Multiple acute-subacute strokes Ruled out C diff colitis Hypokalemia TATIANNA on CKD Peripheral arterial disease s/p R BKA 6 months ago Type 2 diabetes, uncontrolled Diabetic neuropathy Angioedema of the tongue Patient is a 64 year old female with a past medical history of diabetes, left foot ulcer , hypertension , hyperlipidemia , anxiety , peripheral arterial disease , depression , presents with left sided weakness and mild dysarthria . Had a brain MRI revealing multiple small falsi of acute to subacute infarcts in the right coronary radiata and right basal ganglia. Underwent MAGALIS which showed no masses or vegetation . Bubble study was negative , valve restriction is normal . Patient was intubated on 03/13 and a rapid was called . Intubated due to airway protection and excavated on 03/26. but then shortly reintubated due to possible right lower lobe aspiration.Is now on 2 liters nasal canula and has left knee swelling ,erythema , cultures were growing MSSA , however on Clindamycin and irrigation and debridement of left patella on 03/07. She is noting having some diarrhea, with some left knee swelling persistent after debridement . Surgical roxanne are clean and left upper extremity swelling is noted . Crackles in the lungs and is tachycardic Assessment: 04/02:Patient is growing pseudomonas , ESBL klebsiella on sputum culture likely due to hospital acquired pneumonia. possible C diff colitis. As well as an MSSA left knee bursitis that has yet to be treated with appropriate antibiotics. Patient has peripheral arterial disease and right decay and uncontrolled diabetes 04/03: patient is doing better , diarrhea has significantly improved and tolerating antibiotics without any fevers or chills . Patient is a bit drowsy . Patient has some mild angioedema of the tongue . C diff testing is negative 04/04: Patient was seen by Dr Velasco and tolerating diet. Agree with Dr. Velasco findings . Not having any worsening diarrhea 04/05: having diarrhea with antibiotic therapy , most recent chest xray shows lung bases that are unremarkable. clinically stable and worsening confusion and immunity , possible aspiration 04/06: patient has ongoing diarrhea as potential source of worsening septic picture . Patient was found to be hypoxic and confused yesterday possible related to acute aspiration event and possible mucus plugging as patient also refused chest pt. 04/07: presser needs are coming down , suspect aspiration event 04/08: required blood transfusion for hemoglobin 6.9 , unclear if this is due to a real bleed and will continue to monitor for signs of bleeding . Chest xray shows cardiomegaly with mild signs of congestion . Head CT shows right posterior frontal periventricular white matter disease , likely subacute to few small old infacts bilateral basal gangular thats greater on the right side. Cultures are currently with moderate gram negative rods in the sputum and blood cultures are no growth to date 04/09: Culture continues to show moderate gram negative jw in the sputum , awaiting speciation . would be concerned [id number] is not being adequately treated for gram negative jw infection in the sputum previously . 04/10: having some diffuse wheezing in lungs likely contributing to acute hypoxia as well as the gram negative jw that is pending speciation 04/11: S/P trach and peg and tolerating feeds . growing medina resistant and carbon resistant ESBL . Klebsiella pneumonia in the lungs 04/12: tolerating antibiotics and not needing nay presser support , no signs of ongoing sepsis . chest xray shows stable pneumonia Plan: - continue fetroja for a 7 day coarse - continue vancomycin for MSSA left knee cellulitis - consider bronchoscopy and deeper sputum cultures and BAL culture if patient is to get a bronchoscopy to asses for airway clearance, defer to pulmonology on this - will fu on pending blood culture and urine culture and stool culture - Authorized and Performed by: Katerine Hughes Total critical care time: Approximately 56 minutes Due to a high probability of clinically significant, life threatening deterioration, the patient required my highest level of preparedness to intervene emergently and I personally spent this critical care time directly and personally managing the patient. This critical care time included obtaining a history; examining the patient; pulse oximetry; ordering and review of studies; arranging urgent treatment with development of a management plan; evaluation of patient's response to treatment; frequent reassessment; and, discussions with other providers. This critical care time was performed to assess and manage the high probability of imminent, life-threatening deterioration that could result in multi-organ failure. It was exclusive of separately billable procedures and treating other patients and teaching time. Plan discussed with: Other Dietary Evaluation Review Comments: 1) Esau 1 pk BID 2) Refer Customer Assistance Representative on DC 3) Continue current plan of care Expected Outcomes/Goals: Pt will meet >75% estimated needs Fu 3-5 days KATERINE HUGHES MD April 12, 2025 20:25
--- NOTE | 2025-04-12 22:29 | DVHPN2 ---
Progress Note - Dictate Date Seen: April 12, 2025 Medical Necessity Reason Pt with a Central, PICC or Fol: Yes The following are medically ne: Acosta Catheter Reason for acosta catheter: Strict I&O Subjective Patient was seen and evaluated in follow up in the ICU. Patient is intubated and sedated on ventilator. 30% FiO2. Patient underwent elective tracheostomy with Dr. Irma Matt and tolerated procedure well. HGB 7.4, HCT 21.5, CO2 16, BUN 27, INFORMATICS PHYSICIAN 1.36. vital signs Vital Sign Date Time Temp Pulse Resp B/P (MAP) Pulse Ox O2 Delivery O2 Flow Rate FiO2 04/12/25 12:27 65 18 138/55 (82) 100 30 04/12/25 12:00 Mechanical Ventilator+ 04/12/25 09:45 97.7 207.9 Total Intake and Output 04/11/25 04/11/25 04/12/25 15:00 23:00 07:00 Intake Total 833.736 ml 968.292 ml 1082.848 ml Output Total 1500 ml 1100 ml Balance 833.736 ml -531.708 ml -17.152 ml medications Current Medications Medications Dose Ordered Sig/John Route Start Time Stop Time Status Last Admin Dose Admin Acetaminophen 650 mg Q6HP PRN PO 02/19/25 13:45 03/09/25 21:36 650 MG Diagnostic Test (Pha) 1 strip ACHS 02/19/25 17:00 04/12/25 11:43 1 STRIP Dextrose 50 ml UD PRN IV 02/19/25 15:45 04/11/25 21:04 50 ML Potassium Chloride 100 ml @ 50 mls/hr Q2H IV 02/19/25 23:15 02/20/25 05:14 Cancel Potassium Chloride 100 ml @ 50 mls/hr Q2H IV 02/20/25 07:15 02/20/25 11:14 UNV Calcium Acetate 1,334 mg TIDWMEALS PO 03/04/25 12:00 04/12/25 11:43 1,334 MG Ergocalciferol 50,000 unit Q7D PO 03/04/25 11:45 03/25/25 15:05 50,000 UNIT Zirconium Oxide 10 gm TID PO 03/07/25 14:00 Cancel Sodium Bicarbonate 50 ml/ Sodium Chloride 1,050 ml @ 100 mls/hr [id number] IV 03/07/25 11:45 Cancel Pantoprazole Sodium 40 mg BID IV 03/13/25 10:00 04/12/25 09:09 40 MG Albuterol 2.5 mg Q6HR NEB 03/13/25 12:00 04/12/25 12:27 2.5 MG Ipratropium [place] 0.5 mg Q6HR NEB 03/13/25 12:00 04/12/25 12:27 0.5 MG Saccharomyces Boulardii 250 mg DAILY PO 03/14/25 10:00 04/12/25 09:09 250 MG Atorvastatin Calcium 80 mg HS PO 03/24/25 22:00 04/11/25 21:52 80 MG Enoxaparin Sodium 40 mg DAILY SC 03/25/25 10:00 04/10/25 09:52 40 MG Aspirin 81 mg DAILY NG 03/25/25 10:00 04/10/25 09:46 81 MG Insulin Human Regular ACHS SC 03/30/25 22:00 04/12/25 11:45 2 UNITS Guaifenesin 200 mg Q4HP PRN PO 04/01/25 16:00 04/01/25 22:16 200 MG Vancomycin HCl 0 ml @ 0 mls/hr UD IV 04/02/25 18:30 04/14/25 18:30 Ondansetron HCl 4 mg Q8HP PRN PO 04/05/25 15:30 Fentanyl Citrate 250 ml @ 2.5 mls/hr Q24H IV 04/06/25 11:00 04/12/25 10:42 20 MLS/HR Dextrose 1,000 ml @ 75 mls/hr [id number] IV 04/07/25 07:45 04/12/25 02:29 75 MLS/HR Norepinephrine Bitartrate 250 ml @ 3.75 mls/hr Q24H IV 04/08/25 02:30 04/08/25 02:37 3.75 MLS/HR Enteral Nutritional Formula 1,000 ml 30ML/HR GT 04/08/25 09:30 Propofol 100 ml @ 2.232 mls/ hr Q24H IV 04/08/25 16:45 04/12/25 09:04 17.856 MLS/HR Cefiderocol 1.5 gm/Sodium Chloride 100 ml @ 33.333 mls/ hr Q8H IV 04/11/25 13:00 04/12/25 05:37 33.333 MLS/HR objective GENERAL: Ill appearing, intubated on ventilator. EYES: PERRL, EOMI. Anicteric. HENT: Moist mucous membranes. LUNGS: Decreased breath sounds. CARDIOVASCULAR: Regular rate and rhythm. ABDOMEN: Soft, non-tender and non-distended. EXTREMITIES: No edema. SKIN: Warm, dry. laboratory and microbiology Laboratory Tests 04/12/25 04:24 Test 04/12/25 04:24 Range/Units Serum Glucose 83 74-106 mg/dL Problem List Multiple acute/subacute strokes. Hypokalemia. Acute kidney injury. Hypertension, newly diagnosed. Insulin-dependent diabetes mellitus. Status post right BKA. Dyslipidemia. Polysubstance use disorder. Left lower extremity cellulitis. Peripheral vascular disease status post right [id number]-[id number] amputation 6 months ago. Sepsis. Diabetic neuropathy. Assessment/Plan Continued all current supportive medical care. Aspirin, Lipitor. IV antibiotics as ordered. DVT and GI prophylactics. Vasopressors for hemodynamic support. Additional plan as per the hospital course. Critical care time of 45 minutes provided to include time spent evaluation of patient at bedside, when appropriate patient/family education for diagnosis, treatment plan, review of pertinent medical information and discussion of care with specialty providers and PCP. Mechanical ventilator parameters, treatment and adjustments have personally been reviewed by me and treatment plan by registration officer has also been reviewed. Dietary Evaluation Review Comments: 1) Esau 1 pk BID 2) Refer Meat Slicer on DC 3) Continue current plan of care Expected Outcomes/Goals: Pt will meet >75% estimated needs Fu 3-5 days Plan discussed with: Other YANIRA WINN MD April 12, 2025 13:03
[2025-04-13] VITALS (98 sets, daily range): BP systolic 109–146; BP diastolic 45–74; PULSE 63–90; RESP 18; TEMP 96.8–98.1; O2SAT 98–100
[2025-04-13 05:18] LABS: Basophils # (auto) 0.1 10 ^3/uL (0-0.2); Eosinophils # (auto) 0.2 10 ^3/uL (0-0.8); Hemoglobin 7.6 g/dL (12.2-16.2); Lymphocytes # (auto) 1.3 10 ^3/uL (0.4-5.4); Neutrophils # (auto) 4.6 10 ^3/uL (1.6-8.6); Nucleated Red Blood Cells % 0.2 %; White Blood Cell 6.9 10^3/uL (4.4-10.8)
[2025-04-13 05:21] LABS: Basophils % (auto) 0.9 % (0.0-2.0); Lymphocytes % (auto) 18.9 % (10.0-50.0); Mean Corpuscular Hemoglobin 29.8 pg (28.0-32.0); Mean Corpuscular Volume 90.2 fL (80.0-100.0); Monocytes # (auto) 0.8 10 ^3/uL (0-1.3); Monocytes % (auto) 11.2 % (0.0-12.0); Platelet Count (auto) 317 10^3/uL (140-450); Red Blood Cells 2.54 10^6/uL (4.0-5.20); Red Cell Distribution Width 18.1 % (11.8-14.3)
[2025-04-13 07:19] LABS: Base Excess -9.7 mmol/L (-2.0-3.0)
--- NOTE | 2025-04-13 13:38 | DVHPN2 ---
Subjective trach in place Reviewed: Care Plan, H&P, Labs, Medications, Previous Orders, Radiology, Other (Consultations) Changes from previous H/P or p: No Changes General: Per HPI Objective Vitals Vital Signs Date Time Temp Pulse Resp B/P (MAP) Pulse Ox O2 Delivery O2 Flow Rate FiO2 04/13/25 13:29 71 18 122/62 (82) 100 30 04/13/25 13:00 97.7 207.9 04/13/25 12:00 Mechanical Ventilator+ Intake/Output Intake and Output 04/13/25 07:00 Intake Total 3768.543 ml Output Total 2100 ml Balance 1668.543 ml Intake Oral 200 ml IV Total 3008.543 ml Tube Feeding 560 ml Output Urine Total 2100 ml General Appearance: mild distress, Other (Chemically sedated) HEENT: Atraumatic, PERRLA Lungs: Clear to auscultation, Normal air movement, Other Cardiovascular: Regular rate, Normal S1, Normal S2 Abdomen: Normal bowel sounds, Soft Genitourinary: No Apparent Abnormalities, Other Extremities: Other Neuro: Cranial nerves 3-12 NL, Other Skin: Dry, Intact, Wounds Psych/Mental Status: Other Medications Current Medications Medications Dose Ordered Sig/John Route Start Time Stop Time Status Last Admin Dose Admin Acetaminophen 650 mg Q6HP PRN PO 02/19/25 13:45 03/09/25 21:36 650 MG Diagnostic Test (Pha) 1 strip ACHS 02/19/25 17:00 04/13/25 12:22 1 STRIP Dextrose 50 ml UD PRN IV 02/19/25 15:45 04/11/25 21:04 50 ML Potassium Chloride 100 ml @ 50 mls/hr Q2H IV 02/19/25 23:15 02/20/25 05:14 Cancel Potassium Chloride 100 ml @ 50 mls/hr Q2H IV 02/20/25 07:15 02/20/25 11:14 UNV Calcium Acetate 1,334 mg TIDWMEALS PO 03/04/25 12:00 04/13/25 12:02 1,334 MG Ergocalciferol 50,000 unit Q7D PO 03/04/25 11:45 03/25/25 15:05 50,000 UNIT Zirconium Oxide 10 gm TID PO 03/07/25 14:00 Cancel Sodium Bicarbonate 50 ml/ Sodium Chloride 1,050 ml @ 100 mls/hr [id number] IV 03/07/25 11:45 Cancel Pantoprazole Sodium 40 mg BID IV 03/13/25 10:00 04/13/25 12:01 40 MG Albuterol 2.5 mg Q6HR NEB 03/13/25 12:00 04/13/25 11:23 2.5 MG Ipratropium [place] 0.5 mg Q6HR NEB 03/13/25 12:00 04/13/25 11:23 0.5 MG Saccharomyces Boulardii 250 mg DAILY PO 03/14/25 10:00 04/13/25 12:01 250 MG Atorvastatin Calcium 80 mg HS PO 03/24/25 22:00 04/12/25 22:03 80 MG Enoxaparin Sodium 40 mg DAILY SC 03/25/25 10:00 04/13/25 12:01 40 MG Aspirin 81 mg DAILY NG 03/25/25 10:00 04/13/25 12:01 81 MG Insulin Human Regular ACHS SC 03/30/25 22:00 04/13/25 12:21 2 UNITS Guaifenesin 200 mg Q4HP PRN PO 04/01/25 16:00 04/01/25 22:16 200 MG Vancomycin HCl 0 ml @ 0 mls/hr UD IV 04/02/25 18:30 04/14/25 18:30 Ondansetron HCl 4 mg Q8HP PRN PO 04/05/25 15:30 Fentanyl Citrate 250 ml @ 2.5 mls/hr Q24H IV 04/06/25 11:00 04/13/25 11:35 20 MLS/HR Dextrose 1,000 ml @ 75 mls/hr [id number] IV 04/07/25 07:45 04/12/25 02:29 75 MLS/HR Norepinephrine Bitartrate 250 ml @ 3.75 mls/hr Q24H IV 04/08/25 02:30 04/08/25 02:37 3.75 MLS/HR Enteral Nutritional Formula 1,000 ml 30ML/HR GT 04/08/25 09:30 Propofol 100 ml @ 2.232 mls/ hr Q24H IV 04/08/25 16:45 04/13/25 02:17 17.856 MLS/HR Cefiderocol 1.5 gm/Sodium Chloride 100 ml @ 33.333 mls/ hr Q8H IV 04/11/25 13:00 04/13/25 04:46 33.333 MLS/HR Laboratory Results Laboratory Tests 04/12/25 04:24 04/13/25 04:55 Urinalysis Test 02/19/25 17:27 03/04/25 05:00 Urine Color Colorless (Yellow) Urine Clarity Clear (Clear) Urine pH 6.5 (5.0-9.0) Urine Specific [place] 1.008 (1.001-1.035) Urine Protein 2+ (Negative) H Urine Ketones 1+ (Negative) H Urine Blood 1+ /uL (Negative) H Urine Nitrite Negative (Negative) Urine Bilirubin Negative (Negative) Urine Urobilinogen Normal mg/dL (Negative) Urine Leukocyte Esterase Negative /uL (Negative) Urine RBC 6 /hpf (0 - 4) Urine Microscopic WBC 2 /HPF (0-5) Urine Squamous Epithelial Cells Few /hpf (<5) Urine Bacteria None seen /hpf (None Seen) Urine Glucose 2+ mg/dL (Normal) H Urine Creatinine 25.51 mg/dL (30.0-125.0) L Urine Protein/Creatinine Ratio 14.00 Urine Sodium 80 mmol/L (40-220) Urine Total Protein 357.1 mg/dL (1-14) H Blood Gas Results Test 04/13/25 07:12 Arterial Blood pH 7.425 (7.350-7.450) FiO2 % 30.0 Microbiology Microbiology Date/Time Source Procedure Growth Status 04/06/25 20:35 Blood Blood Culture - Final NO GROWTH AFTER 5 DAYS OF INCUBATION. Complete 04/06/25 10:20 Sputum Gram Stain - Final Complete 04/06/25 10:20 Respiratory Culture - Final Klebsiella pneumoniae - ESBL Complete 04/02/25 13:00 Stool Clostridium difficile Toxin Assay - Final Complete 03/06/25 14:37 Knee Left Gram Stain - Final Complete 03/06/25 14:37 Knee Left Anaerobic Culture - Final Complete 03/06/25 14:37 Aerobic Culture - Final Staphylococcus aureus Complete 03/04/25 13:29 Aspirate Gram Stain - Final Complete 03/04/25 13:29 Body Fluid Culture - Final Staphylococcus aureus Complete 02/19/25 17:27 Urine - [place] Urine Culture - Final Complete Assessment/Plan Assessment/Plan Multiple acute/subacute strokes Left lower extremity cellulitis Rule out left septic knee Hypokalemia Acute kidney injury likely hemodynamically mediated due to vasomotor nephropathy Chronic kidney disease Peripheral vascular disease status post right [id number] amputation 6 months ago Poorly controlled type 2 diabetes Sepsis Hypertension Mixed hyperlipidemia Polysubstance use disorder Diabetic neuropathy -? Suicidal ideation -septic bursitis with Staphylococcus aureus -septic shock Angioedema of the tongue -hyponatremia -patient with ESBL and CRE in the sputum -cardiac arrest Plan: -events: s/p tracheostomy yesterday -continue antibiotics per ID --hold tube feedings -hold vacation sedation today -hold anticoagulants -PUD prophylaxis -bronchodilators -continue PPI Repeat labs and chest x-ray in a.m. Critical care time spent with patient discussing and formulating plan of care: 90 minutes. This does not include time spent performing procedures. Plan discussed with: Other (nurse) Date of Service: April 13, 2025 Billing Provider: YOLANDE JOHNSTON MD Common Visit Codes: [id number] INP/OBS CARE(HIGH) YOLANDE JOHNSTON MD April 13, 2025 13:38
--- NOTE | 2025-04-13 19:11 | DVHPN2 ---
Progress Note - Dictate Date Seen: April 13, 2025 Medical Necessity Reason Pt with a Central, PICC or Fol: Yes The following are medically ne: Acosta Catheter Reason for acosta catheter: Strict I&O Subjective Patient with encephalopathy on respirator on tube feedings needs a PEG tube had a tracheostomy reason vital signs Vital Sign Date Time Temp Pulse Resp B/P (MAP) Pulse Ox O2 Delivery O2 Flow Rate FiO2 04/13/25 18:30 98.1 69 18 122/60 (80) 100 208.6 04/13/25 18:22 30 04/13/25 18:00 Mechanical Ventilator+ Total Intake and Output 04/12/25 04/12/25 04/13/25 15:00 23:00 07:00 Intake Total 969.514 ml 1402.847 ml 1396.182 ml Output Total 1350 ml 750 ml Balance 969.514 ml 52.847 ml 646.182 ml medications Current Medications Medications Dose Ordered Sig/John Route Start Time Stop Time Status Last Admin Dose Admin Acetaminophen 650 mg Q6HP PRN PO 02/19/25 13:45 03/09/25 21:36 650 MG Diagnostic Test (Pha) 1 strip ACHS 02/19/25 17:00 04/13/25 18:26 1 STRIP Dextrose 50 ml UD PRN IV 02/19/25 15:45 04/11/25 21:04 50 ML Potassium Chloride 100 ml @ 50 mls/hr Q2H IV 02/19/25 23:15 02/20/25 05:14 Cancel Potassium Chloride 100 ml @ 50 mls/hr Q2H IV 02/20/25 07:15 02/20/25 11:14 UNV Calcium Acetate 1,334 mg TIDWMEALS PO 03/04/25 12:00 04/13/25 18:23 1,334 MG Ergocalciferol 50,000 unit Q7D PO 03/04/25 11:45 03/25/25 15:05 50,000 UNIT Zirconium Oxide 10 gm TID PO 03/07/25 14:00 Cancel Sodium Bicarbonate 50 ml/ Sodium Chloride 1,050 ml @ 100 mls/hr [id number] IV 03/07/25 11:45 Cancel Pantoprazole Sodium 40 mg BID IV 03/13/25 10:00 04/13/25 12:01 40 MG Albuterol 2.5 mg Q6HR NEB 03/13/25 12:00 04/13/25 18:39 2.5 MG Ipratropium [place] 0.5 mg Q6HR NEB 03/13/25 12:00 04/13/25 18:39 0.5 MG Saccharomyces Boulardii 250 mg DAILY PO 03/14/25 10:00 04/13/25 12:01 250 MG Atorvastatin Calcium 80 mg HS PO 03/24/25 22:00 04/12/25 22:03 80 MG Enoxaparin Sodium 40 mg DAILY SC 03/25/25 10:00 04/13/25 12:01 40 MG Aspirin 81 mg DAILY NG 03/25/25 10:00 04/13/25 12:01 81 MG Insulin Human Regular ACHS SC 03/30/25 22:00 04/13/25 18:26 2 UNITS Guaifenesin 200 mg Q4HP PRN PO 04/01/25 16:00 04/01/25 22:16 200 MG Vancomycin HCl 0 ml @ 0 mls/hr UD IV 04/02/25 18:30 04/14/25 18:30 Ondansetron HCl 4 mg Q8HP PRN PO 04/05/25 15:30 Fentanyl Citrate 250 ml @ 2.5 mls/hr Q24H IV 04/06/25 11:00 04/13/25 11:35 20 MLS/HR Dextrose 1,000 ml @ 75 mls/hr [id number] IV 04/07/25 07:45 04/13/25 18:32 75 MLS/HR Norepinephrine Bitartrate 250 ml @ 3.75 mls/hr Q24H IV 04/08/25 02:30 04/08/25 02:37 3.75 MLS/HR Enteral Nutritional Formula 1,000 ml 30ML/HR GT 04/08/25 09:30 Propofol 100 ml @ 2.232 mls/ hr Q24H IV 04/08/25 16:45 04/13/25 02:17 17.856 MLS/HR Cefiderocol 1.5 gm/Sodium Chloride 100 ml @ 33.333 mls/ hr Q8H IV 04/11/25 13:00 04/13/25 13:00 33.333 MLS/HR objective Abdomen is soft nontender no masses labs are unremarkable laboratory and microbiology Laboratory Tests 04/13/25 04:55 04/12/25 04:24 Test 04/12/25 04:24 Range/Units Serum Glucose 83 74-106 mg/dL Assessment/Plan [age]-year-old with a history of hyperlipidemia hypertension anxiety depression GERD diabetes has got a had cardiac events resulting in acute respiratory failure with needing resuscitation but and now unfortunately ventilator dependent with tracheostomy done and needs a G-tube placement now Patient's daughter was talked to about the procedure risks benefits alternatives and agreeable for the same and she has given the consent to arrange for the PEG tube we will will Get it arranged for tomorrow morning thank you Dietary Evaluation Review Comments: 1) Esau 1 pk BID 2) Refer Fire Prevention Captain on DC 3) Continue current plan of care Expected Outcomes/Goals: Pt will meet >75% estimated needs Fu 3-5 days Plan discussed with: Patient KEVIN KOCH MD April 13, 2025 19:11
--- NOTE | 2025-04-13 22:53 | DVHPN2 ---
Progress Note - Dictate Date Seen: April 13, 2025 Medical Necessity Reason Pt with a Central, PICC or Fol: Yes The following are medically ne: Acosta Catheter Reason for acosta catheter: Strict I&O Subjective Patient seen and examined at bedside. Sedated, on mechanical ventilator. s/p trach Overnight events reviewed. vital signs Vital Sign Date Time Temp Pulse Resp B/P (MAP) Pulse Ox O2 Delivery O2 Flow Rate FiO2 04/13/25 22:10 132/70 04/13/25 21:49 68 18 100 30 04/13/25 21:15 97.9 208.2 04/13/25 18:00 Mechanical Ventilator+ Total Intake and Output 04/12/25 04/12/25 04/13/25 15:00 23:00 07:00 Intake Total 969.514 ml 1402.847 ml 1396.182 ml Output Total 1350 ml 750 ml Balance 969.514 ml 52.847 ml 646.182 ml medications Current Medications Medications Dose Ordered Sig/John Route Start Time Stop Time Status Last Admin Dose Admin Acetaminophen 650 mg Q6HP PRN PO 02/19/25 13:45 03/09/25 21:36 650 MG Diagnostic Test (Pha) 1 strip ACHS 02/19/25 17:00 04/13/25 22:38 1 STRIP Dextrose 50 ml UD PRN IV 02/19/25 15:45 04/11/25 21:04 50 ML Potassium Chloride 100 ml @ 50 mls/hr Q2H IV 02/19/25 23:15 02/20/25 05:14 Cancel Potassium Chloride 100 ml @ 50 mls/hr Q2H IV 02/20/25 07:15 02/20/25 11:14 UNV Calcium Acetate 1,334 mg TIDWMEALS PO 03/04/25 12:00 04/13/25 18:23 1,334 MG Ergocalciferol 50,000 unit Q7D PO 03/04/25 11:45 03/25/25 15:05 50,000 UNIT Zirconium Oxide 10 gm TID PO 03/07/25 14:00 Cancel Sodium Bicarbonate 50 ml/ Sodium Chloride 1,050 ml @ 100 mls/hr [id number] IV 03/07/25 11:45 Cancel Pantoprazole Sodium 40 mg BID IV 03/13/25 10:00 04/13/25 22:03 40 MG Albuterol 2.5 mg Q6HR NEB 03/13/25 12:00 04/13/25 18:39 2.5 MG Ipratropium [place] 0.5 mg Q6HR NEB 03/13/25 12:00 04/13/25 18:39 0.5 MG Saccharomyces Boulardii 250 mg DAILY PO 03/14/25 10:00 04/13/25 12:01 250 MG Atorvastatin Calcium 80 mg HS PO 03/24/25 22:00 04/13/25 22:03 80 MG Enoxaparin Sodium 40 mg DAILY SC 03/25/25 10:00 04/13/25 12:01 40 MG Aspirin 81 mg DAILY NG 03/25/25 10:00 04/13/25 12:01 81 MG Insulin Human Regular ACHS SC 03/30/25 22:00 04/13/25 22:38 2 UNITS Guaifenesin 200 mg Q4HP PRN PO 04/01/25 16:00 04/01/25 22:16 200 MG Vancomycin HCl 0 ml @ 0 mls/hr UD IV 04/02/25 18:30 04/14/25 18:30 Ondansetron HCl 4 mg Q8HP PRN PO 04/05/25 15:30 Fentanyl Citrate 250 ml @ 2.5 mls/hr Q24H IV 04/06/25 11:00 04/13/25 11:35 20 MLS/HR Dextrose 1,000 ml @ 75 mls/hr [id number] IV 04/07/25 07:45 04/13/25 18:32 75 MLS/HR Norepinephrine Bitartrate 250 ml @ 3.75 mls/hr Q24H IV 04/08/25 02:30 04/08/25 02:37 3.75 MLS/HR Enteral Nutritional Formula 1,000 ml 30ML/HR GT 04/08/25 09:30 Propofol 100 ml @ 2.232 mls/ hr Q24H IV 04/08/25 16:45 04/13/25 22:10 17.856 MLS/HR Cefiderocol 1.5 gm/Sodium Chloride 100 ml @ 33.333 mls/ hr Q8H IV 04/11/25 13:00 04/13/25 21:07 33.333 MLS/HR objective Gen.: Patient lying in bed in medical ICU. Sedated, on mechanical ventilator via trach. Head: Normocephalic, atraumatic. Eyes: PERRLA. Ears: Normal external anatomy. Throat: Endotracheal tube and orogastric tube in place. Neck: Trach in place. Chest: Transmitted breath sounds bilaterally. Decreased air entry bilaterally. No wheezing. Bibasilar crackles. Cardiovascular: Positive S1, positive S2. Regular rate and rhythm. Abdomen: Positive bowel sounds in all 4 quadrants. Soft, nontender, nondistended. : Acosta in place. Normal external genitalia. Rectal: Deferred. Skin: Warm, dry. Intact. Extremities: 2+ radial pulses bilaterally. No lower extremity edema. Right BKA. Neuro: Sedated. laboratory and microbiology Laboratory Tests 04/13/25 04:55 04/12/25 04:24 Test 04/12/25 04:24 Range/Units Serum Glucose 83 74-106 mg/dL Assessment/Plan Impression: Acute hypoxic respiratory failure On mechanical ventilator S/p cardiac arrest with ROSC Multiple acute/subacute strokes. Altered mental status Acute kidney injury. Hypertension, newly diagnosed. Insulin-dependent diabetes mellitus. Polysubstance use Peripheral vascular disease, s/p right BKA 6 months ago. Sepsis Events: S/p tracheostomy - 8.0 Shiley Remains on vent support AC mode with RR 18, VT 400, PEEP 5, FIO2 30% Trach care per RT Hemorrhage around trach has resolved. Awaiting PEG placement. Will attempt CPAP after PEG. Sedated on Propofol and Fentanyl drip. Off pressors, hemodynamically stable. Monitor hemoglobin - currently 7.6 g/dL Transfuse if less than 7.0 g/dL. Head of bed elevation Aspiration precautions Continue bronchodilators Continue antibiotics. Follow up cultures On statin Surgery recommendations appreciated Tube feeds for nutritional support ABG reviewed, compensated Protonix BID for GI prophylaxis Lovenox for DVT prophylaxis Labs and imaging reviewed. Rest of plan as noted below. Plan: S/p cardiac arrest S/p placement on mechanical ventilator. AC mode with RR 18, VT 400, PEEP 5, FIO2 30% S/p tracheostomy - 8.0 Shiley Trach care per RT Titrate FIO2 to keep O2 saturation above 90%. VAP bundle. Daily ABG and CXR while intubated Sedate for ventilator synchrony HOB elevation Aspiration precautions Pressors as necessary for hemodynamic support Titrate to keep mean arterial pressure greater than 65 mmHg. Bronchodilators Continue antibiotics. F/u cultures. Accu-Cheks, ISS PRN. Monitor renal function Monitor electrolytes Supplement as needed Continue psych meds Tube feeds for nutritional support Pressors as necessary for hemodynamic support Titrate to keep mean arterial pressure greater than 65 mmHg. GI prophylaxis - Protonix. DVT prophylaxis - Lovenox. Prognosis: Poor given patient's multiple co-morbidities. Condition: Critical Rest of plan per hospitalist and other consultants. A total of 35 minutes of critical care time was spent reviewing the patient record, examining the patient, making a diagnostic and therapeutic plan, discussing this plan with the medical personnel, following up on diagnostic studies and following the patient for clinical stability excluding any and all procedures. At least 50% of this time was spent in direct, [id number] contact. Thank you, FRANCISCO Alanis, for allowing me to participate in this patient's care. Further recommendations will depend on the patient's clinical course. Please do not hesitate to contact me if you have any questions or concerns. This medical document was created using an electronic medical record system with [employer] dictation system. Although these documentations are being carefully reviewed, there may still be some phonetic and typographical changes. The errors are purely typographical, due to imperfection on the software program, and do not reflect any compromise in the patient's medical care. Dietary Evaluation Review Comments: 1) Esau 1 pk BID 2) Refer Product Strategy Director on DC 3) Continue current plan of care Expected Outcomes/Goals: Pt will meet >75% estimated needs Fu 3-5 days Plan discussed with: Other (ASHLEY Dickerson) Critical Care Time(min): 35 LARRY HERRERA MD April 13, 2025 22:53
--- NOTE | 2025-04-13 22:56 | DVHPN2 ---
Progress Note - Dictate Date Seen: April 13, 2025 Medical Necessity Reason Pt with a Central, PICC or Fol: Yes The following are medically ne: Acosta Catheter Reason for acosta catheter: Strict I&O Subjective Patient was seen and evaluated in follow up in the ICU. Patient is intubated and sedated on ventilator 30% FiO2. Trach in place. HGB 7.6, HCT 23, DIE SIZER 1.38. Patient will scheduled for G-tube placement with Dr. Rodriguez tomorrow morning. vital signs Vital Sign Date Time Temp Pulse Resp B/P (MAP) Pulse Ox O2 Delivery O2 Flow Rate FiO2 04/13/25 13:00 97.7 72 18 124/60 (81) 100 207.9 04/13/25 12:00 Mechanical Ventilator+ 30 30 Total Intake and Output 04/12/25 04/12/25 04/13/25 15:00 23:00 07:00 Intake Total 969.514 ml 1402.847 ml 1396.182 ml Output Total 1350 ml 750 ml Balance 969.514 ml 52.847 ml 646.182 ml medications Current Medications Medications Dose Ordered Sig/John Route Start Time Stop Time Status Last Admin Dose Admin Acetaminophen 650 mg Q6HP PRN PO 02/19/25 13:45 03/09/25 21:36 650 MG Diagnostic Test (Pha) 1 strip ACHS 02/19/25 17:00 04/13/25 12:22 1 STRIP Dextrose 50 ml UD PRN IV 02/19/25 15:45 04/11/25 21:04 50 ML Potassium Chloride 100 ml @ 50 mls/hr Q2H IV 02/19/25 23:15 02/20/25 05:14 Cancel Potassium Chloride 100 ml @ 50 mls/hr Q2H IV 02/20/25 07:15 02/20/25 11:14 UNV Calcium Acetate 1,334 mg TIDWMEALS PO 03/04/25 12:00 04/13/25 12:02 1,334 MG Ergocalciferol 50,000 unit Q7D PO 03/04/25 11:45 03/25/25 15:05 50,000 UNIT Zirconium Oxide 10 gm TID PO 03/07/25 14:00 Cancel Sodium Bicarbonate 50 ml/ Sodium Chloride 1,050 ml @ 100 mls/hr [id number] IV 03/07/25 11:45 Cancel Pantoprazole Sodium 40 mg BID IV 03/13/25 10:00 04/13/25 12:01 40 MG Albuterol 2.5 mg Q6HR NEB 03/13/25 12:00 04/13/25 11:23 2.5 MG Ipratropium Jbphh 0.5 mg Q6HR NEB 03/13/25 12:00 04/13/25 11:23 0.5 MG Saccharomyces Boulardii 250 mg DAILY PO 03/14/25 10:00 04/13/25 12:01 250 MG Atorvastatin Calcium 80 mg HS PO 03/24/25 22:00 04/12/25 22:03 80 MG Enoxaparin Sodium 40 mg DAILY SC 03/25/25 10:00 04/13/25 12:01 40 MG Aspirin 81 mg DAILY NG 03/25/25 10:00 04/13/25 12:01 81 MG Insulin Human Regular ACHS SC 03/30/25 22:00 04/13/25 12:21 2 UNITS Guaifenesin 200 mg Q4HP PRN PO 04/01/25 16:00 04/01/25 22:16 200 MG Vancomycin HCl 0 ml @ 0 mls/hr UD IV 04/02/25 18:30 04/14/25 18:30 Ondansetron HCl 4 mg Q8HP PRN PO 04/05/25 15:30 Fentanyl Citrate 250 ml @ 2.5 mls/hr Q24H IV 04/06/25 11:00 04/13/25 11:35 20 MLS/HR Dextrose 1,000 ml @ 75 mls/hr [id number] IV 04/07/25 07:45 04/12/25 02:29 75 MLS/HR Norepinephrine Bitartrate 250 ml @ 3.75 mls/hr Q24H IV 04/08/25 02:30 04/08/25 02:37 3.75 MLS/HR Enteral Nutritional Formula 1,000 ml 30ML/HR GT 04/08/25 09:30 Propofol 100 ml @ 2.232 mls/ hr Q24H IV 04/08/25 16:45 04/13/25 02:17 17.856 MLS/HR Cefiderocol 1.5 gm/Sodium Chloride 100 ml @ 33.333 mls/ hr Q8H IV 04/11/25 13:00 04/13/25 04:46 33.333 MLS/HR objective GENERAL: Ill appearing, intubated on ventilator. EYES: PERRL, EOMI. Anicteric. HENT: Moist mucous membranes. LUNGS: Decreased breath sounds. CARDIOVASCULAR: Regular rate and rhythm. ABDOMEN: Soft, non-tender and non-distended. EXTREMITIES: No edema. SKIN: Warm, dry. laboratory and microbiology Laboratory Tests 04/13/25 04:55 04/12/25 04:24 Test 04/12/25 04:24 Range/Units Serum Glucose 83 74-106 mg/dL Problem List Multiple acute/subacute strokes. Hypokalemia. Acute kidney injury. Hypertension, newly diagnosed. Insulin-dependent diabetes mellitus. Status post right BKA. Dyslipidemia. Polysubstance use disorder. Left lower extremity cellulitis. Peripheral vascular disease status post right [id number] amputation 6 months ago. Sepsis. Diabetic neuropathy. Assessment/Plan Continued all current supportive medical care. Aspirin, Lipitor. IV antibiotics as ordered. DVT and GI prophylactics. Vasopressors for hemodynamic support. Additional plan as per the hospital course. Critical care time of 45 minutes provided to include time spent evaluation of patient at bedside, when appropriate patient/family education for diagnosis, treatment plan, review of pertinent medical information and discussion of care with specialty providers and PCP. Mechanical ventilator parameters, treatment and adjustments have personally been reviewed by me and treatment plan by kitchen and counter worker has also been reviewed. Dietary Evaluation Review Comments: 1) Esau 1 pk BID 2) Refer [employer] Developer on DC 3) Continue current plan of care Expected Outcomes/Goals: Pt will meet >75% estimated needs Fu 3-5 days Plan discussed with: Other YANIRA WINN MD April 13, 2025 13:29
[2025-04-14] VITALS (109 sets, daily range): BP systolic 99–150; BP diastolic 53–87; PULSE 67–88; RESP 11–20; TEMP 97–99; O2SAT 92–100
[2025-04-14 05:25] LABS: Eosinophils # (auto) 0.2 10 ^3/uL (0-0.8); Hemoglobin 7.2 g/dL (12.2-16.2); Monocytes # (auto) 0.6 10 ^3/uL (0-1.3); Nucleated Red Blood Cells % 0.1 %; Platelet Count (auto) 299 10^3/uL (140-450); Red Cell Distribution Width 17.7 % (11.8-14.3)
[2025-04-14 05:27] LABS: Basophils # (auto) 0 10 ^3/uL (0-0.2); Basophils % (auto) 0.7 % (0.0-2.0); Hematocrit 21.9 % (36.0-46.0); Lymphocytes # (auto) 1.2 10 ^3/uL (0.4-5.4); Lymphocytes % (auto) 20.2 % (10.0-50.0); Mean Corpuscular Hemoglobin 28.8 pg (28.0-32.0); Mean Corpuscular Hgb Conc. 32.8 g/dL (32.0-36.0); Neutrophils % (auto) 66.1 % (37.0-80.0); Red Blood Cells 2.49 10^6/uL (4.0-5.20)
[2025-04-14 05:40] LABS: Anion Gap 11 (5-15); BUN/Creatinine Ratio 21.3 (10.0-20.0); Glucose 104 mg/dL (74-106); Potassium 3.8 mmol/L (3.5-5.1)
[2025-04-14 05:53] LABS: Alanine Aminotransferase < 9 U/L (7-40); Alkaline Phosphatase 140 U/L (46-116); Aspartate Aminotransferase 11 U/L (13-40); Blood Urea Nitrogen 29 mg/dL (9-23); Calcium 7.9 mg/dL (8.7-10.4); Carbon Dioxide 15 mmol/L (20-31); Chloride 110 mmol/L (98-107); Sodium 136 mmol/L (136-145); Total Protein 3.4 g/dL (5.7-8.2)
[2025-04-14 05:54] LABS: Albumin 1.5 g/dL (3.2-4.8); Bilirubin, Total < 0.2 mg/dL (0.2-1.0)
[2025-04-14] MEDS ORDERED: NALOXONE HCL 0.4 MG/ML VIAL ONE (08:39)
[2025-04-14] MEDS ORDERED: SODIUM CHLORIDE LOCK 0 ML ONE (08:39)
[2025-04-14] MEDS ORDERED: FLUMAZENIL 0.1 MG/ML INJ 10ML MDV IV ONE (08:39)
[2025-04-14] MEDS ORDERED: diphenhdrAMINE HCL 50 MG/1 ML VL ONE (08:40)
[2025-04-14] MEDS ORDERED: fentaNYL CITRATE 100 MCG/2 ML VL ONE (08:40)
[2025-04-14] MEDS ORDERED: MIDAZOLAM HCL 5 MG/ML-1ML VIAL ONE (08:40)
--- NOTE | 2025-04-14 09:17 | DVHPN2 ---
Subjective Denies any symptoms Reviewed: Care Plan, H&P, Labs, Medications, Previous Orders, Radiology, Other (Consultations) Changes from previous H/P or p: No Changes General: Per HPI Objective Vitals Vital Signs Date Time Temp Pulse Resp B/P (MAP) Pulse Ox O2 Delivery O2 Flow Rate FiO2 04/14/25 07:42 72 18 119/60 (79) 99 30 04/14/25 06:45 97.5 207.5 04/14/25 06:00 Mechanical Ventilator+ Intake/Output Intake and Output 04/14/25 07:00 Intake Total 2708.544 ml Output Total 2500 ml Balance 208.544 ml Intake Oral 0 ml IV Total 2708.544 ml Output Urine Total 2500 ml Exam Assess patient will sitting in her wheelchair. General Appearance: mild distress, Other (Chemically sedated) HEENT: Atraumatic, PERRLA Lungs: Clear to auscultation, Normal air movement, Other Cardiovascular: Regular rate, Normal S1, Normal S2 Abdomen: Normal bowel sounds, Soft Genitourinary: No Apparent Abnormalities, Other Extremities: Other Neuro: Cranial nerves 3-12 NL, Other Skin: Dry, Intact, Wounds Psych/Mental Status: Other Medications Current Medications Medications Dose Ordered Sig/John Route Start Time Stop Time Status Last Admin Dose Admin Acetaminophen 650 mg Q6HP PRN PO 02/19/25 13:45 03/09/25 21:36 650 MG Diagnostic Test (Pha) 1 strip ACHS 02/19/25 17:00 04/14/25 07:00 1 STRIP Dextrose 50 ml UD PRN IV 02/19/25 15:45 04/11/25 21:04 50 ML Potassium Chloride 100 ml @ 50 mls/hr Q2H IV 02/19/25 23:15 02/20/25 05:14 Cancel Potassium Chloride 100 ml @ 50 mls/hr Q2H IV 02/20/25 07:15 02/20/25 11:14 UNV Calcium Acetate 1,334 mg TIDWMEALS PO 03/04/25 12:00 04/13/25 18:23 1,334 MG Ergocalciferol 50,000 unit Q7D PO 03/04/25 11:45 03/25/25 15:05 50,000 UNIT Zirconium Oxide 10 gm TID PO 03/07/25 14:00 Cancel Sodium Bicarbonate 50 ml/ Sodium Chloride 1,050 ml @ 100 mls/hr [id number] IV 03/07/25 11:45 Cancel Pantoprazole Sodium 40 mg BID IV 03/13/25 10:00 04/13/25 22:03 40 MG Albuterol 2.5 mg Q6HR NEB 03/13/25 12:00 04/14/25 06:20 2.5 MG Ipratropium [place] 0.5 mg Q6HR NEB 03/13/25 12:00 04/14/25 06:20 0.5 MG Saccharomyces Boulardii 250 mg DAILY PO 03/14/25 10:00 04/13/25 12:01 250 MG Atorvastatin Calcium 80 mg HS PO 03/24/25 22:00 04/13/25 22:03 80 MG Aspirin 81 mg DAILY NG 03/25/25 10:00 04/13/25 12:01 81 MG Insulin Human Regular ACHS SC 03/30/25 22:00 04/13/25 22:38 2 UNITS Vancomycin HCl 0 ml @ 0 mls/hr UD IV 04/02/25 18:30 04/14/25 18:30 Ondansetron HCl 4 mg Q8HP PRN PO 04/05/25 15:30 Fentanyl Citrate 250 ml @ 2.5 mls/hr Q24H IV 04/06/25 11:00 04/13/25 23:44 20 MLS/HR Norepinephrine Bitartrate 250 ml @ 3.75 mls/hr Q24H IV 04/08/25 02:30 04/08/25 02:37 3.75 MLS/HR Enteral Nutritional Formula 1,000 ml 30ML/HR GT 04/08/25 09:30 Propofol 100 ml @ 2.232 mls/ hr Q24H IV 04/08/25 16:45 04/14/25 06:55 17.856 MLS/HR Cefiderocol 1.5 gm/Sodium Chloride 100 ml @ 33.333 mls/ hr Q8H IV 04/11/25 13:00 04/14/25 05:22 33.333 MLS/HR Laboratory Results Laboratory Tests 04/14/25 05:05 Chemistry Test 04/14/25 05:05 Albumin 1.5 g/dL (3.2-4.8) L Calcium Level 7.9 mg/dL (8.7-10.4) L Total Protein 3.4 g/dL (5.7-8.2) L LFT Test 04/14/25 05:05 Alanine Aminotransferase (ALT) < 9 U/L (7-40) Alkaline Phosphatase 140 U/L (46-116) H Aspartate Amino Transferase (AST) 11 U/L (13-40) L Total Bilirubin < 0.2 mg/dL (0.2-1.0) L Urinalysis Test 02/19/25 17:27 03/04/25 05:00 Urine Color Colorless (Yellow) Urine Clarity Clear (Clear) Urine pH 6.5 (5.0-9.0) Urine Specific [place] 1.008 (1.001-1.035) Urine Protein 2+ (Negative) H Urine Ketones 1+ (Negative) H Urine Blood 1+ /uL (Negative) H Urine Nitrite Negative (Negative) Urine Bilirubin Negative (Negative) Urine Urobilinogen Normal mg/dL (Negative) Urine Leukocyte Esterase Negative /uL (Negative) Urine RBC 6 /hpf (0 - 4) Urine Microscopic WBC 2 /HPF (0-5) Urine Squamous Epithelial Cells Few /hpf (<5) Urine Bacteria None seen /hpf (None Seen) Urine Glucose 2+ mg/dL (Normal) H Urine Creatinine 25.51 mg/dL (30.0-125.0) L Urine Protein/Creatinine Ratio 14.00 Urine Sodium 80 mmol/L (40-220) Urine Total Protein 357.1 mg/dL (1-14) H Blood Gas Results Test 04/14/25 06:51 Arterial Blood pH 7.389 (7.350-7.450) FiO2 % 30.0 Microbiology Microbiology Date/Time Source Procedure Growth Status 04/06/25 20:35 Blood Blood Culture - Final NO GROWTH AFTER 5 DAYS OF INCUBATION. Complete 04/06/25 10:20 Sputum Gram Stain - Final Complete 04/06/25 10:20 Respiratory Culture - Final Klebsiella pneumoniae - ESBL Complete 04/02/25 13:00 Stool Clostridium difficile Toxin Assay - Final Complete 03/06/25 14:37 Knee Left Gram Stain - Final Complete 03/06/25 14:37 Knee Left Anaerobic Culture - Final Complete 03/06/25 14:37 Aerobic Culture - Final Staphylococcus aureus Complete 03/04/25 13:29 Aspirate Gram Stain - Final Complete 03/04/25 13:29 Body Fluid Culture - Final Staphylococcus aureus Complete 02/19/25 17:27 Urine - [place] Urine Culture - Final Complete Labs and/or images reviewed: Labs reviewed by me, Image(s) reviewed by me Assessment/Plan Assessment/Plan Impression: Multiple acute/subacute strokes Left lower extremity cellulitis Rule out left septic knee Hypokalemia Acute kidney injury likely hemodynamically mediated due to vasomotor nephropathy Chronic kidney disease Peripheral vascular disease status post right zykdt-kic-njpj amputation 6 months ago Poorly controlled type 2 diabetes Sepsis Hypertension Mixed hyperlipidemia Polysubstance use disorder Diabetic neuropathy -? Suicidal ideation -septic bursitis with Staphylococcus aureus -septic shock Angioedema of the tongue -hyponatremia -patient with ESBL and CRE in the sputum -cardiac arrest Plan: -events: Status post tracheostomy. Plans for PEG tube placement today. Patient with noted persistent compensated metabolic acidosis. Proceed with plan of care transferring to long-term acute care facility -start sodium bicarbonate drip -continue antibiotics per ID -hold tube feedings -hold vacation sedation today -hold anticoagulants -PUD prophylaxis -bronchodilators -continue PPI Repeat labs and chest x-ray in a.m. Critical care time spent with patient discussing and formulating plan of care: 90 minutes. This does not include time spent performing procedures. This medical document was created using an electronic medical record system with [employer] dictation system. Although this document has been carefully reviewed, there may still be some phonetic and typographical errors. These areas are purely typographical due to imperfections of the software programs, and do not reflect any compromise in the patient's medical care. Plan discussed with: Patient, Other (RN) My Orders Orders - JUSTIN BONILLA NP Procedure Category Date Status Time Abg W/ Co-Ox RT 04/14/25 Logged 05:55 Sodium Bicarb PHA 04/14/25 In Process 50meq/50ml Vial 08:15 Complete Blood Count LAB 04/15/25 Verified 04:00 Chest Xray 1 View XY 04/14/25 Logged 08:15 Date of Service: April 14, 2025 Billing Provider: JUSTIN BONILLA NP Common Visit Codes: [id number] CARE 30-74 MIN JUSTIN BONILLA NP April 14, 2025 09:17
--- NOTE | 2025-04-14 11:28 | DVHOP2 ---
Operative Report DATE OF PROCEDURE: 04/14/25 INDICATIONS FOR THE PROCEDURE: Metabolic encephalopathy status post CPR with malnutrition for PEG tube placement PROCEDURE PERFORMED: 1. Esophagogastroduodenoscopy and PEG tube placement POSTOPERATIVE DIAGNOSIS: Malnutrition for which PEG tube placement done INFORMED CONSENT: The risks and benefits and alternatives were explained to the patient and informed consent was obtained. PROCEDURE IN DETAIL: The patient was kept NPO after midnight. In the ICU at the she was on propofol which was adjusted Olympus gastroscope was passed through the oropharynx into the stomach and the duodenum, and the findings were as follows. Esophagus: 1 cm Hhiatal hernia No Esophagitis No Esophageal ulcer No Esophageal stricture Stomach: Fundus: Mild gastric stasis Body and antrum normal Unremarkable no ulcers no gallops Pylorus normal Duodenum Unremarkable After the endoscopy was completed the scope was withdrawn into the stomach and at the point of maximum illumination a Seldinger needle was introduced, the needle was withdrawn and through the cannula a guidewire was introduced This guidewire was held with the help of a snare passed through the endoscopic biopsy channel and withdrawn through the oropharynx in a retrograde fashion Now over the guidewire the Bard feeding gastrostomy tube was introduced and pulled from the anterior abdominal wall aspect after making the needle opening wider The feeding tube was pulled to the anterior gastric wall and the probe approximated and cut to the appropriate length and anchored Patient tolerated the procedure extremely well and post vital signs stable Endoscopic impression Malnutrition for which feeding tube placed Suggestions Watch closely for any complication Start feedings and see the response Thank you DR Alanis for asking me to take part in the care of this lady Regards Dr. Rodriguez Endoscopic impression Suggestions Thank you for asking me to take part in the care of this pleasant patient ENDOSCOPIC IMPRESSION: SUGGESTIONS: With warm regards, KEVIN RODRIGUEZ MD April 14, 2025 11:28
--- NOTE | 2025-04-14 11:30 | DVH ---
CHEST RADIOGRAPH Indication: pna, s/p trach Technique: Frontal view of the chest. Comparison: XY CHEST XRAY 1 VIEW on DOS: 04/11/25, XY CHEST PORTABLE on DOS: 04/11/25, XY CHEST PORTABL E on DOS: 04/10/25, XY CHEST PORTABLE on DOS: 04/09/25, XY CHEST PORTABLE on DOS: 04/08/25, XY CHEST XRA Y 1 VIEW on DOS: 04/11/25 FINDINGS: LUNGS AND PLEURAL SPACES: Bibasilar atelectasis or pneumonia. No pneumothorax. HEART: Unremarkable. No cardiomegaly. MEDIASTINUM: Unremarkable. Normal mediastinal contour. BONES/JOINTS: Unremarkable. No acute fracture. TUBES, LINES AND DEVICES: Status post tracheostomy overlying the tracheal column.. Left peripheral ly inserted central catheter (PICC) tip in the superior vena cava. IMPRESSION: Status post tracheostomy. Worsening atelectasis or pneumonia
[2025-04-14] MEDS: SODIUM BICARB 50mEq/50ml Vial 50 ML in D5W 5% 1,000 ML IV ONE (11:31)
--- NOTE | 2025-04-14 12:02 | DVHPN2 ---
Progress Note - Dictate Date Seen: April 14, 2025 Medical Necessity Reason Pt with a Central, PICC or Fol: Yes The following are medically ne: Acosta Catheter Reason for acosta catheter: Strict I&O vital signs Vital Sign Date Time Temp Pulse Resp B/P (MAP) Pulse Ox O2 Delivery O2 Flow Rate FiO2 04/14/25 11:15 97.0 69 18 113/66 (82) 96 206.6 04/14/25 10:13 30 04/14/25 10:00 Mechanical Ventilator+ Total Intake and Output 04/13/25 04/13/25 04/14/25 15:00 23:00 07:00 Intake Total 902.848 ml 902.848 ml 902.848 ml Output Total 1500 ml 1000 ml Balance 902.848 ml -597.152 ml -97.152 ml medications Current Medications Medications Dose Ordered Sig/John Route Start Time Stop Time Status Last Admin Dose Admin Acetaminophen 650 mg Q6HP PRN PO 02/19/25 13:45 03/09/25 21:36 650 MG Diagnostic Test (Pha) 1 strip ACHS 02/19/25 17:00 04/14/25 11:31 1 STRIP Dextrose 50 ml UD PRN IV 02/19/25 15:45 04/11/25 21:04 50 ML Potassium Chloride 100 ml @ 50 mls/hr Q2H IV 02/19/25 23:15 02/20/25 05:14 Cancel Potassium Chloride 100 ml @ 50 mls/hr Q2H IV 02/20/25 07:15 02/20/25 11:14 UNV Calcium Acetate 1,334 mg TIDWMEALS PO 03/04/25 12:00 04/13/25 18:23 1,334 MG Ergocalciferol 50,000 unit Q7D PO 03/04/25 11:45 03/25/25 15:05 50,000 UNIT Zirconium Oxide 10 gm TID PO 03/07/25 14:00 Cancel Sodium Bicarbonate 50 ml/ Sodium Chloride 1,050 ml @ 100 mls/hr [id number] IV 03/07/25 11:45 Cancel Pantoprazole Sodium 40 mg BID IV 03/13/25 10:00 04/14/25 09:47 40 MG Albuterol 2.5 mg Q6HR NEB 03/13/25 12:00 04/14/25 06:20 2.5 MG Ipratropium [place] 0.5 mg Q6HR NEB 03/13/25 12:00 04/14/25 06:20 0.5 MG Saccharomyces Boulardii 250 mg DAILY PO 03/14/25 10:00 04/13/25 12:01 250 MG Atorvastatin Calcium 80 mg HS PO 03/24/25 22:00 04/13/25 22:03 80 MG Aspirin 81 mg DAILY NG 03/25/25 10:00 04/13/25 12:01 81 MG Insulin Human Regular ACHS SC 03/30/25 22:00 04/13/25 22:38 2 UNITS Vancomycin HCl 0 ml @ 0 mls/hr UD IV 04/02/25 18:30 04/14/25 18:30 Ondansetron HCl 4 mg Q8HP PRN PO 04/05/25 15:30 Fentanyl Citrate 250 ml @ 2.5 mls/hr Q24H IV 04/06/25 11:00 04/13/25 23:44 20 MLS/HR Norepinephrine Bitartrate 250 ml @ 3.75 mls/hr Q24H IV 04/08/25 02:30 04/08/25 02:37 3.75 MLS/HR Enteral Nutritional Formula 1,000 ml 30ML/HR GT 04/08/25 09:30 Propofol 100 ml @ 2.232 mls/ hr Q24H IV 04/08/25 16:45 04/14/25 06:55 17.856 MLS/HR Cefiderocol 1.5 gm/Sodium Chloride 100 ml @ 33.333 mls/ hr Q8H IV 04/11/25 13:00 04/14/25 05:22 33.333 MLS/HR laboratory and microbiology Laboratory Tests 04/14/25 05:05 Test 04/14/25 05:05 Range/Units Serum Glucose 104 74-106 mg/dL Assessment/Plan Impression Acute hypoxemic respiratory failure Altered mental status Hx of CVA Sepsis Patient seen and examined in ICU Events On mechanical ventilation S/p re-intubation PEEP 5, FiO2 30% Labs and imaging reviewed ABG reviewed Management Vent support Titrate to maintain sats 90% or above Sedation holiday daily If patient follows commands, proceed to weaning trial Pressure support 05/31, extubate when ready Continue antibiotics F/u cultures Bronchodilators Monitor renal function Monitor electrolytes Supplement as needed Pressors as needed for hemodynamic support To maintain a mean arterial pressure of 65 mmHg Prognosis very poor ? Tracheostomy DVT prophylaxis Critical care time 35 minutes Dietary Evaluation Review Comments: 1) Esau 1 pk BID 2) Refer Diesel Powerplant Mechanic on DC 3) Continue current plan of care Expected Outcomes/Goals: Pt will meet >75% estimated needs Fu 3-5 days Plan discussed with: Other (Rn) ARUNA BRISENO MD April 14, 2025 12:02
[2025-04-14] MEDS: VANCOMYCIN 500mg/100mL PREMIX or KIT IV ONE (16:14)
--- NOTE | 2025-04-14 22:52 | DVHPN2 ---
Progress Note - Dictate Date Seen: April 14, 2025 Medical Necessity Reason Pt with a Central, PICC or Fol: Yes The following are medically ne: Acosta Catheter Reason for acosta catheter: Strict I&O Subjective Patient was seen and evaluated in follow up in the ICU. Patient is intubated and sedated on ventilator 30% FiO2. Trach in place. Patient underwent esophagogastroduodenoscopy with PEG tube placement today. HGB 7.2, HCT 21.9, BUN 29, Golf Course Patroller 1.36. vital signs Vital Sign Date Time Temp Pulse Resp B/P (MAP) Pulse Ox O2 Delivery O2 Flow Rate FiO2 04/14/25 20:13 84 18 126/65 (85) 98 30 04/14/25 20:00 98.8 209.8 04/14/25 18:24 Mechanical Ventilator+ Total Intake and Output 04/13/25 04/13/25 04/14/25 15:00 23:00 07:00 Intake Total 902.848 ml 902.848 ml 902.848 ml Output Total 1500 ml 1000 ml Balance 902.848 ml -597.152 ml -97.152 ml medications Current Medications Medications Dose Ordered Sig/John Route Start Time Stop Time Status Last Admin Dose Admin Acetaminophen 650 mg Q6HP PRN PO 02/19/25 13:45 03/09/25 21:36 650 MG Diagnostic Test (Pha) 1 strip ACHS 02/19/25 17:00 04/14/25 22:06 1 STRIP Dextrose 50 ml UD PRN IV 02/19/25 15:45 04/11/25 21:04 50 ML Potassium Chloride 100 ml @ 50 mls/hr Q2H IV 02/19/25 23:15 02/20/25 05:14 Cancel Potassium Chloride 100 ml @ 50 mls/hr Q2H IV 02/20/25 07:15 02/20/25 11:14 UNV Calcium Acetate 1,334 mg TIDWMEALS PO 03/04/25 12:00 04/13/25 18:23 1,334 MG Ergocalciferol 50,000 unit Q7D PO 03/04/25 11:45 03/25/25 15:05 50,000 UNIT Zirconium Oxide 10 gm TID PO 03/07/25 14:00 Cancel Sodium Bicarbonate 50 ml/ Sodium Chloride 1,050 ml @ 100 mls/hr [id number] IV 03/07/25 11:45 Cancel Pantoprazole Sodium 40 mg BID IV 03/13/25 10:00 04/14/25 22:05 40 MG Albuterol 2.5 mg Q6HR NEB 03/13/25 12:00 04/14/25 18:20 2.5 MG Ipratropium [place] 0.5 mg Q6HR NEB 03/13/25 12:00 04/14/25 18:20 0.5 MG Saccharomyces Boulardii 250 mg DAILY PO 03/14/25 10:00 04/13/25 12:01 250 MG Atorvastatin Calcium 80 mg HS PO 03/24/25 22:00 04/14/25 22:05 80 MG Aspirin 81 mg DAILY NG 03/25/25 10:00 04/13/25 12:01 81 MG Insulin Human Regular ACHS SC 03/30/25 22:00 04/14/25 22:06 2 UNITS Ondansetron HCl 4 mg Q8HP PRN PO 04/05/25 15:30 Fentanyl Citrate 250 ml @ 2.5 mls/hr Q24H IV 04/06/25 11:00 04/13/25 23:44 20 MLS/HR Norepinephrine Bitartrate 250 ml @ 3.75 mls/hr Q24H IV 04/08/25 02:30 04/08/25 02:37 3.75 MLS/HR Enteral Nutritional Formula 1,000 ml 30ML/HR GT 04/08/25 09:30 Propofol 100 ml @ 2.232 mls/ hr Q24H IV 04/08/25 16:45 04/14/25 06:55 17.856 MLS/HR Cefiderocol 1.5 gm/Sodium Chloride 100 ml @ 33.333 mls/ hr Q8H IV 04/11/25 13:00 04/14/25 21:45 33.333 MLS/HR objective GENERAL: Ill appearing, intubated on ventilator. EYES: PERRL, EOMI. Anicteric. HENT: Moist mucous membranes. LUNGS: Decreased breath sounds. CARDIOVASCULAR: Regular rate and rhythm. ABDOMEN: Soft, non-tender and non-distended. EXTREMITIES: No edema. SKIN: Warm, dry. laboratory and microbiology Laboratory Tests 04/14/25 05:05 Test 04/14/25 05:05 Range/Units Serum Glucose 104 74-106 mg/dL Problem List Multiple acute/subacute strokes. Hypokalemia. Acute kidney injury. Hypertension, newly diagnosed. Insulin-dependent diabetes mellitus. Status post right BKA. Dyslipidemia. Polysubstance use disorder. Left lower extremity cellulitis. Peripheral vascular disease status post right yekga-oow-zufn amputation 6 months ago. Sepsis. Diabetic neuropathy. Assessment/Plan Continued all current supportive medical care. Aspirin, Lipitor. IV antibiotics as ordered. DVT and GI prophylactics. Vasopressors for hemodynamic support. Additional plan as per the hospital course. Critical care time of 45 minutes provided to include time spent evaluation of patient at bedside, when appropriate patient/family education for diagnosis, treatment plan, review of pertinent medical information and discussion of care with specialty providers and PCP. Mechanical ventilator parameters, treatment and adjustments have personally been reviewed by me and treatment plan by bobbin inspector has also been reviewed. Dietary Evaluation Review Comments: 1) Esau 1 pk BID 2) Refer Retail Pharmacist on DC 3) Continue current plan of care Expected Outcomes/Goals: Pt will meet >75% estimated needs Fu 3-5 days Plan discussed with: Other YANIRA WINN MD April 14, 2025 22:52
[2025-04-15] VITALS (108 sets, daily range): BP systolic 75–156; BP diastolic 48–101; PULSE 79–107; RESP 12–28; TEMP 97–98.4; O2SAT 98–100
--- NOTE | 2025-04-15 05:58 | DVH ---
EXAM: XR Chest, 1 View CLINICAL INDICATION: on ventilator TECHNIQUE: Frontal view of the chest. COMPARISON: XY CHEST XRAY 1 VIEW on DOS: 04/14/25, XY CHEST XRAY 1 VIEW on DOS: 04/11/25, XY CHEST PO RTABLE on DOS: 04/11/25, XY CHEST PORTABLE on DOS: 04/10/25, XY CHEST PORTABLE on DOS: 04/09/25 FINDINGS: LUNGS AND PLEURAL SPACES: Bibasilar atelectasis or pneumonia. No pneumothorax. HEART: Unremarkable. No cardiomegaly. MEDIASTINUM: Unremarkable. Normal mediastinal contour. BONES/JOINTS: Unremarkable. No acute fracture. TUBES, LINES AND DEVICES: Left internal jugular central venous catheter tip in the superior vena ca va. Tracheostomy tube in satisfactory position. OTHER FINDINGS: . . . IMPRESSION: Bibasilar atelectasis or pneumonia.
[2025-04-15 06:08] LABS: Basophils # (auto) 0 10 ^3/uL (0-0.2); Basophils % (auto) 0.2 % (0.0-2.0); Eosinophils # (auto) 0.1 10 ^3/uL (0-0.8); Eosinophils % (auto) 0.7 % (0.0-7.0); Hematocrit 24.7 % (36.0-46.0); Lymphocytes # (auto) 1.2 10 ^3/uL (0.4-5.4); Lymphocytes % (auto) 8.5 % (10.0-50.0); Mean Corpuscular Hemoglobin 28.6 pg (28.0-32.0); Mean Corpuscular Hgb Conc. 32.3 g/dL (32.0-36.0); Mean Corpuscular Volume 88.6 fL (80.0-100.0); Monocytes # (auto) 0.5 10 ^3/uL (0-1.3); Monocytes % (auto) 3.2 % (0.0-12.0); Neutrophils # (auto) 12.3 10 ^3/uL (1.6-8.6); Neutrophils % (auto) 87.4 % (37.0-80.0); Platelet Count (auto) 330 10^3/uL (140-450); Red Blood Cells 2.79 10^6/uL (4.0-5.20); Red Cell Distribution Width 17.8 % (11.8-14.3)
[2025-04-15 08:58] LABS: Potassium 3.7 mmol/L (3.5-5.1); Sodium 137 mmol/L (136-145)
[2025-04-15 08:59] LABS: Anion Gap 11 (5-15)
[2025-04-15 09:04] LABS: BUN/Creatinine Ratio 19.4 (10.0-20.0)
[2025-04-15 09:05] LABS: Blood Urea Nitrogen 27 mg/dL (9-23); Calcium 8.5 mg/dL (8.7-10.4); Carbon Dioxide 15 mmol/L (20-31); Chloride 111 mmol/L (98-107); Glucose 73 mg/dL (74-106)
--- NOTE | 2025-04-15 09:21 | DVHDS2 ---
Discharge Summary Date of Admission Feb 19, 2025 at 13:38 Date of Discharge: Mar 11, 2025 Admitting Diagnosis Rule out septic knee Labs/Diagnostic Data: Laboratory Results Test 04/15/25 06:05 04/15/25 04:50 04/14/25 06:51 04/14/25 05:05 POC Glucose 62 mg/dl (70-106) White Blood Count 14.0 10^3/uL (4.4-10.8) Red Blood Count 2.79 10^6/uL (4.0-5.20) Hemoglobin 8.0 g/dL (12.2-16.2) Hematocrit 24.7 % (36.0-46.0) Mean Corpuscular Volume 88.6 fL (80.0-100.0) Mean Corpuscular Hemoglobin 28.6 pg (28.0-32.0) Mean Corpuscular Hemoglobin Concent 32.3 g/dL (32.0-36.0) Red Cell Distribution Width 17.8 % (11.8-14.3) Platelet Count 330 10^3/uL (140-450) Mean Platelet Volume 8.6 fL (6.9-10.8) Neutrophils (%) (Auto) 87.4 % (37.0-80.0) Lymphocytes (%) (Auto) 8.5 % (10.0-50.0) Monocytes (%) (Auto) 3.2 % (0.0-12.0) Eosinophils (%) (Auto) 0.7 % (0.0-7.0) Basophils (%) (Auto) 0.2 % (0.0-2.0) Neutrophils # (Auto) 12.3 10 ^3/uL (1.6-8.6) Lymphocytes # (Auto) 1.2 10 ^3/uL (0.4-5.4) Monocytes # (Auto) 0.5 10 ^3/uL (0-1.3) Eosinophils # (Auto) 0.1 10 ^3/uL (0-0.8) Basophils # (Auto) 0 10 ^3/uL (0-0.2) Nucleated Red Blood Cells 0.0 % Sodium Level 137 mmol/L (136-145) Potassium Level 3.7 mmol/L (3.5-5.1) Chloride Level 111 mmol/L (98-107) Carbon Dioxide Level 15 mmol/L (20-31) Anion Gap 11 (5-15) Blood Urea Nitrogen 27 mg/dL (9-23) Creatinine 1.39 mg/dL (0.550-1.02) Glomerular Filtration Rate Calc 45 mL/min (>90) BUN/Creatinine Ratio 19.4 (10.0-20.0) Serum Glucose 73 mg/dL (74-106) Calcium Level 8.5 mg/dL (8.7-10.4) Random Vancomycin Level 17.0 ug/mL (5-10) Blood Gas Specimen Type Arterial Blood Gas Sample Site Right radial Blood Gas Patient Temperature 37.0 Arterial Blood Date Drawn [id number] Arterial Blood pH 7.389 (7.350-7.450) Arterial Blood Partial Pressure CO2 23.3 mmHg (32.0-45.0) Arterial Blood Partial Pressure O2 76.2 mmHg (83.0-108.0) Arterial Blood HCO3 13.8 mmol/L (21.0-28.0) Arterial Blood Oxygen Saturation 93.8 % (94.0-98.0) Arterial Blood Base Excess -10.0 mmol/L (-2.0-3.0) Arterial Blood Oxyhemoglobin 92.7 % (94.0-98.0) Arterial Blood Carboxyhemoglobin 0.2 % (0.5-1.5) Arterial Blood Methemoglobin 1.0 % (0.0-1.5) Fermin Test Yes Blood Gas Total Hemoglobin 8.10 g/dL (12.0-16.0) Blood Gas Set Respiration Rate 18.0 Blood Gas Modality Vent - ac FiO2 % 30.0 Blood Gas Tidal Volume 400.0 Blood Gas PEEP or CPAP 5.0 Total Bilirubin < 0.2 mg/dL (0.2-1.0) Aspartate Amino Transferase (AST) 11 U/L (13-40) Alanine Aminotransferase (ALT) < 9 U/L (7-40) Alkaline Phosphatase 140 U/L (46-116) Total Protein 3.4 g/dL (5.7-8.2) Albumin 1.5 g/dL (3.2-4.8) Test 04/11/25 07:09 04/09/25 05:37 04/07/25 05:11 04/06/25 16:30 Prothrombin Time 11.4 sec (9.3-11.8) Prothrombin Time INR 1.08 (0.9-1.15) Activated Partial Thromboplast Time 37.0 SEC (24.5-34.5) Blood Gas Spontaneous Rate 21 Blood Gas Critical Value Read Back Yes Blood Gas Notified Whom Md. cal harkins Blood Gas Notified Time [id number] Blood Gas Notified By Rt jayshree medina Phosphorus Level 3.2 mg/dL (2.4-5.1) Magnesium Level 1.7 mg/dL (1.6-2.6) Vancomycin Level Trough 27.4 ug/mL (5-10) Test 04/06/25 12:55 04/06/25 11:00 04/01/25 08:30 03/30/25 07:19 Lactic Acid Level 1.5 mmol/L (0.4-2.0) Ammonia < 10 umol/L (11-32) B-Type Natriuretic Peptide 153.96 pg/mL (0-100) Venous Blood pH 7.441 (7.320-7.430) Venous Blood pCO2 at Patient Temp 23.4 mmHg (38.0-54.0) Venous Blood pO2 at Patient Temp 41.2 mmHg (23.0-48.0) Venous Blood HCO3 15.6 mmol/L (22.0-29.0) Venous Blood Base Excess -6.3 mmol/L (-2.0-3.0) Blood Gas EPAP 7 Blood Gas IPAP 12 Test 03/26/25 18:45 03/26/25 10:24 03/25/25 04:40 03/22/25 05:17 Blood Gas Spontaneous Tidal Volume 392 Blood Gas Inspiratory Pressure 18.0 Bl Gas Inspiratory/Expiratory Ratio 1:1.9 Blood Gas Pressure Support 8 Triglycerides Level 214 mg/dL (< 150) Differential Total Cells Counted 100.0 (100) Neutrophils % (Manual) 80 (37.0-80.0) Band Neutrophils % (Manual) 2 Lymphocytes % (Manual) 13 (10.0-50.0) Monocytes % (Manual) 4 (0-12) Eosinophils % (Manual) 1 (0-7) Basophils % (Manual) 0 (0.0-2.0) Metamyelocytes % (manual) 0 Myelocytes % (Manual) 0 Promyelocytes % (Manual) 0 Blast Cells % (Manual) 0 Reactive Lymphocytes 0 Platelet Estimate Increased Test 03/20/25 21:45 03/16/25 04:35 03/13/25 02:35 03/07/25 05:23 Anisocytosis (manual) Slight Lactate Dehydrogenase 355 U/L (120-246) D-Dimer, Quantitative 2.32 mg/L FEU (0.0-0.49) Celso Cells Few Test 03/06/25 04:52 03/04/25 05:00 03/03/25 14:09 03/03/25 04:41 Erythrocyte Sedimentation Rate 116 mm/hr (0-20) C-Reactive Protein High Sensitivity 5.00 mg/dL (<1.0) Urine Creatinine 25.51 mg/dL (30.0-125.0) Urine Protein/Creatinine Ratio 14.00 Urine Sodium 80 mmol/L (40-220) Urine Total Protein 357.1 mg/dL (1-14) Vitamin D 25-Hydroxy 7.2 ng/mL (30.0-100) Parathyroid Hormone (Intact) 28.5 pg/mL (18.4-80.1) Test 03/02/25 05:58 02/25/25 12:42 02/23/25 13:36 02/21/25 15:30 Beta HCG, Quantitative 1.2 mIU/mL (1.5-4.2) Body Fluid Source Knee fluid Body Fluid pH 8.0 Body Fluid WBC (Manual) 225 CUMM (0-200) Body Fluid RBC (Manual) 325 CUMM (0-2000) Body Fluid Mononuclear Cells 10 % Body Fluid Polymorphonuclear Cells 90 % (0-25) Body Fluid Glucose 112 mg/dL (.) Anti-Nuclear Antibody Comment Comment (.) Cytoplasmic ANCA (c-ANCA) Antibody <1:20 titer (Neg:<1:20) Anti-Proteinase 3 (c-ANCA) <0.2 units (0.0-0.9) Atypical p-ANCA <1:20 titer (Neg:<1:20) Perinuclear ANCA (p-ANCA) Antibody <1:20 titer (Neg:<1:20) Myeloperoxidase Antibody <0.2 units (0.0-0.9) NATALIIA-1 Antibody <0.2 AI (0.0-0.9) SS-A/Ro Antibody <0.2 AI (0.0-0.9) SS-B/La Antibody <0.2 AI (0.0-0.9) Sm Antibody <0.2 AI (0.0-0.9) QUALITY ASSURANCE QA LAB ANALYST Antibody <0.2 AI (0.0-0.9) Scl-70 (Scleroderma) Antibody <0.2 AI (0.0-0.9) Anti-Double Strand DNA Antibody <1 IU/mL (0-9) Chromatin Antibody <0.2 AI (0.0-0.9) Centromere B Antibody <0.2 AI (0.0-0.9) Complement C3 172 mg/dL (82-167) Complement C4 34 mg/dL (12-38) Uric Acid 5.1 mg/dL (3.1-7.8) Test 02/20/25 06:00 02/19/25 17:27 02/19/25 15:25 02/19/25 11:30 Hemoglobin A1c 9.9 % A1C (<5.7) Cholesterol Level 304 mg/dL (< 200) LDL Cholesterol 207 mg/dL (< 100) HDL Cholesterol 38 mg/dL (40-59) Beta-Hydroxybutyric Acid 0.922 mmol/L (< 0.4) Urine Color Colorless (Yellow) Urine Clarity Clear (Clear) Urine pH 6.5 (5.0-9.0) Urine Specific [place] 1.008 (1.001-1.035) Urine Protein 2+ (Negative) Urine Ketones 1+ (Negative) Urine Blood 1+ /uL (Negative) Urine Nitrite Negative (Negative) Urine Bilirubin Negative (Negative) Urine Urobilinogen Normal mg/dL (Negative) Urine Leukocyte Esterase Negative /uL (Negative) Urine RBC 6 /hpf (0 - 4) Urine Microscopic WBC 2 /HPF (0-5) Urine Squamous Epithelial Cells Few /hpf (<5) Urine Bacteria None seen /hpf (None Seen) Urine Glucose 2+ mg/dL (Normal) Urine Opiates Screen Neg (NEGATIVE) Urine Fentanyl Screen Neg (NEGATIVE) Urine Barbiturates Screen Neg (NEGATIVE) Urine Phencyclidine Screen Neg (NEGATIVE) Urine Amphetamines Screen Neg (NEGATIVE) Urine Benzodiazepines Screen Neg (NEGATIVE) Urine Cocaine Screen Neg (NEGATIVE) Urine Cannabinoids Screen Pos (NEGATIVE) Troponin I High Sensitivity 25 ng/L (</=34) Plasma/Serum Blood Alcohol < 3.0 mg/dL (<10) Other Laboratory Tests 04/15/25 04:50 Brief Hx & Hospital Course: History of Present Illness Edie Kaur is a 54-year-old female with past medical history of right BKA, hyperlipidemia, hypertension, diabetes, anxiety, major depressive disorder, anxiety, and GERD who came in for generalized weakness. Patient is being seen with her significant other at the bedside. He states that on Monday after work he noticed that she wasn't feeling well, had some difficulty moving on her left side. On Monday he states she slept most of the day, but was still not moving well and he describes it as her "flopping around and her speech was off". He states that since her BKA she has been mostly crawling to get around. He decided that if she still wasn't doing well in the morning he would take her to the hospital. This morning the patient still could not move her left leg, she had improved movement of her left arm, and her speech remained slurred so he brought her to the hospital. On assessment, patient's speech is slurred and repetitive, she only has minimal control of her left arm, and can not move her left leg. Course of hospitalization: Patient had challenging hospitalization including acute CVA, with MAGALIS performed, which did not reveal any acute thrombus. Patient had treatment to her left knee including multiple aspiration and drainage, empiric antibiotic therapy, with the patient growing Staphylococcus aureus. Patient was subsequently had I and D of left knee bursitis. Patient was white blood cell count then improved. Patient was currently on Unasyn, 4 times a day. Patient also had severe difficulty with her anxiety and questionable suicidal ideation. Patient was assessed by Psychiatry on several occasions with SI being ruled out. Patient was started on antidepressants. Patient had complicated hospitalization, undergoing cardiopulmonary arrest x2, with return of spontaneous circulation. Patient had failure of weaning off mechanical ventilation, for which tracheostomy and PEG tube was placed. Patient also grew CRE, for which infectious disease specialist was consulted, with the patient being placed on Fetroja. Patient is alert and following commands despite having multiple CVAs while in the hospital which was verified via MRI. Long discussion was made with the patient's mother regarding plan of care, for which the patient is appropriate for transitioning to LTAC placement for further weaning off of mechanical ventilation and possible decannulation. This was also discussed with the patient as her sedation has been weaned after receiving her PEG tube placement. Physical examination General: Alert and oriented Eyes: EOMI. Anicteric. HENT: Moist mucous membranes. Tracheostomy Lungs: Clear to auscultation bilaterally. Mechanical ventilation Cardiovascular: Regular rate and rhythm. No murmur. No JVD. Abdomen: Soft, non-tender and non-distended. No palpable masses. PEG tube Extremities: No edema. Non-tender. Skin: No rashes or lesions. Warm. Neurologic: No focal neurological deficits. CN II-XII grossly intact, but not individually tested. Psychiatric: Cooperative. Appropriate mood and affect. Critical care time spent with patient discussing and formulating plan of care: 40 minutes. This does not include time spent performing procedures. This medical document was created using an electronic medical record system with [employer] system. Although this document has been carefully reviewed, there may still be some phonetic and typographical errors. These areas are purely typographical due to imperfections of the software programs, and do not reflect any compromise in the patient's medical care. Operations or Procedures Left knee I and D MAGALIS Multiple joint aspiration Condition at Discharge: Poor Final Diagnosis/Problems List -cardiopulmonary arrest -septic shock -acute respiratory failure Secondary diagnosis: Multiple acute/subacute strokes Left lower extremity cellulitis Rule out left septic knee Hypokalemia Acute kidney injury likely hemodynamically mediated due to vasomotor nephropathy Chronic kidney disease Peripheral vascular disease status post right bnuub-bpe-bdub amputation 6 months ago Poorly controlled type 2 diabetes Sepsis Hypertension Mixed hyperlipidemia Polysubstance use disorder Diabetic neuropathy -? Suicidal ideation -septic bursitis with Staphylococcus aureus -septic shock Angioedema of the tongue -hyponatremia -patient with ESBL and CRE in the sputum Discharge Disposition: Acute Care Facility Discharge Instruct/Medications Diet: See Comment Diet comment: Jevity 30 mL/hr via G-tube Activity: No Restrictions, As Tolerated Follow Up/Referral: per accepting provider Medications: Refer to medication reconciliation form 36 Discharge Statement: "Patient was advised to return to the ER or call 911 if any headaches, dizziness, shortness of breath, chest pain, abdominal pain, bleeding, fevers, or worsening of medical condition. Patient was counseled about treatment plan, medications, possible side effects, patientverbalized understanding. All questions were answered to the best of my ability. This discharge took greater then 30 minutes in planning, reviewing documentation, counseling the patient, and discussing with other team members." ASSESSMENT ASSESSMENT Assessment -cardiopulmonary arrest -septic shock -acute respiratory failure Date of Service: April 15, 2025 Billing Provider: JUSTIN BONILLA NP Common Visit Codes: 82593-VVD/OBS DISCH DAY >30min JUSTIN BONILLA NP April 15, 2025 09:21
--- NOTE | 2025-04-15 09:59 | DVHPN2 ---
Progress Note - Dictate Date Seen: April 15, 2025 Medical Necessity Reason Pt with a Central, PICC or Fol: Yes The following are medically ne: Acosta Catheter Reason for acosta catheter: Strict I&O Subjective Patient with encephalopathy on respirator on tube feedings Had PEG tube yesterday had some minimal bleeding at the site yesterday And none now G-tube site is in good place we will start feeding vital signs Vital Sign Date Time Temp Pulse Resp B/P (MAP) Pulse Ox O2 Delivery O2 Flow Rate FiO2 04/15/25 08:45 97.7 82 18 100 207.9 04/15/25 08:00 30 04/15/25 08:00 Mechanical Ventilator+ Total Intake and Output 04/14/25 04/14/25 04/15/25 15:00 23:00 07:00 Intake Total 929.984 ml 2068.116 ml 146.336 ml Output Total 1151 ml 600 ml Balance 929.984 ml 917.116 ml -453.664 ml medications Current Medications Medications Dose Ordered Sig/John Route Start Time Stop Time Status Last Admin Dose Admin Acetaminophen 650 mg Q6HP PRN PO 02/19/25 13:45 03/09/25 21:36 650 MG Diagnostic Test (Pha) 1 strip ACHS 02/19/25 17:00 04/15/25 06:46 1 STRIP Dextrose 50 ml UD PRN IV 02/19/25 15:45 04/11/25 21:04 50 ML Potassium Chloride 100 ml @ 50 mls/hr Q2H IV 02/19/25 23:15 02/20/25 05:14 Cancel Potassium Chloride 100 ml @ 50 mls/hr Q2H IV 02/20/25 07:15 02/20/25 11:14 UNV Calcium Acetate 1,334 mg TIDWMEALS PO 03/04/25 12:00 04/15/25 08:22 1,334 MG Ergocalciferol 50,000 unit Q7D PO 03/04/25 11:45 03/25/25 15:05 50,000 UNIT Zirconium Oxide 10 gm TID PO 03/07/25 14:00 Cancel Sodium Bicarbonate 50 ml/ Sodium Chloride 1,050 ml @ 100 mls/hr [id number] IV 03/07/25 11:45 Cancel Pantoprazole Sodium 40 mg BID IV 03/13/25 10:00 04/15/25 09:40 40 MG Albuterol 2.5 mg Q6HR NEB 03/13/25 12:00 04/15/25 06:14 2.5 MG Ipratropium Roll 0.5 mg Q6HR NEB 03/13/25 12:00 04/15/25 06:14 0.5 MG Saccharomyces Boulardii 250 mg DAILY PO 03/14/25 10:00 04/15/25 09:40 250 MG Atorvastatin Calcium 80 mg HS PO 03/24/25 22:00 04/13/25 22:03 80 MG Aspirin 81 mg DAILY NG 03/25/25 10:00 04/15/25 09:40 81 MG Insulin Human Regular ACHS SC 03/30/25 22:00 04/14/25 22:06 2 UNITS Ondansetron HCl 4 mg Q8HP PRN PO 04/05/25 15:30 Fentanyl Citrate 250 ml @ 2.5 mls/hr Q24H IV 04/06/25 11:00 04/15/25 00:32 15 MLS/HR Norepinephrine Bitartrate 250 ml @ 3.75 mls/hr Q24H IV 04/08/25 02:30 04/08/25 02:37 3.75 MLS/HR Propofol 100 ml @ 2.232 mls/ hr Q24H IV 04/08/25 16:45 04/15/25 00:31 6.696 MLS/HR Cefiderocol 1.5 gm/Sodium Chloride 100 ml @ 33.333 mls/ hr Q8H IV 04/11/25 13:00 04/15/25 04:38 33.333 MLS/HR Enteral Nutritional Formula 1,000 ml 30ML/HR GT 04/15/25 08:45 objective Abdomen is soft nontender no masses G-tube site no bleeding seen labs are unremarkable laboratory and microbiology Laboratory Tests 04/15/25 04:50 Test 04/15/25 04:50 Range/Units Serum Glucose 73 L 74-106 mg/dL Assessment/Plan G-tube site looks good and clean without any infection or bleeding We will start feeding through the G-tube watch for any complications and see Thank you Dr. Rodriguez Dietary Evaluation Review Comments: 1) Esau 1 pk BID 2) Refer Production Machine Operator on DC 3) Continue current plan of care Expected Outcomes/Goals: Pt will meet >75% estimated needs Fu 3-5 days Plan discussed with: Patient KEVIN RODRIGUEZ MD April 15, 2025 09:59
--- NOTE | 2025-04-15 20:04 | DVHPN2 ---
Progress Note - Dictate Date Seen: April 15, 2025 Medical Necessity Reason Pt with a Central, PICC or Fol: Yes The following are medically ne: Acosta Catheter Reason for acosta catheter: Strict I&O vital signs Vital Sign Date Time Temp Pulse Resp B/P (MAP) Pulse Ox O2 Delivery O2 Flow Rate FiO2 04/15/25 18:05 95 22 75/90 (85) 100 30 04/15/25 18:03 Mechanical Ventilator+ 04/15/25 16:45 97.5 207.5 Total Intake and Output 04/14/25 04/14/25 04/15/25 15:00 23:00 07:00 Intake Total 929.984 ml 2068.116 ml 146.336 ml Output Total 1151 ml 600 ml Balance 929.984 ml 917.116 ml -453.664 ml medications Current Medications Medications Dose Ordered Sig/John Route Start Time Stop Time Status Last Admin Dose Admin Acetaminophen 650 mg Q6HP PRN PO 02/19/25 13:45 03/09/25 21:36 650 MG Diagnostic Test (Pha) 1 strip ACHS 02/19/25 17:00 04/15/25 17:00 1 STRIP Dextrose 50 ml UD PRN IV 02/19/25 15:45 04/11/25 21:04 50 ML Potassium Chloride 100 ml @ 50 mls/hr Q2H IV 02/19/25 23:15 02/20/25 05:14 Cancel Potassium Chloride 100 ml @ 50 mls/hr Q2H IV 02/20/25 07:15 02/20/25 11:14 UNV Calcium Acetate 1,334 mg TIDWMEALS PO 03/04/25 12:00 04/15/25 18:00 1,334 MG Ergocalciferol 50,000 unit Q7D PO 03/04/25 11:45 04/15/25 14:30 50,000 UNIT Zirconium Oxide 10 gm TID PO 03/07/25 14:00 Cancel Sodium Bicarbonate 50 ml/ Sodium Chloride 1,050 ml @ 100 mls/hr [id number] IV 03/07/25 11:45 Cancel Pantoprazole Sodium 40 mg BID IV 03/13/25 10:00 04/15/25 09:40 40 MG Albuterol 2.5 mg Q6HR NEB 03/13/25 12:00 04/15/25 18:03 2.5 MG Ipratropium Prosper 0.5 mg Q6HR NEB 03/13/25 12:00 04/15/25 18:03 0.5 MG Saccharomyces Boulardii 250 mg DAILY PO 03/14/25 10:00 04/15/25 09:40 250 MG Atorvastatin Calcium 80 mg HS PO 03/24/25 22:00 04/13/25 22:03 80 MG Aspirin 81 mg DAILY NG 03/25/25 10:00 04/15/25 09:40 81 MG Insulin Human Regular ACHS SC 03/30/25 22:00 04/14/25 22:06 2 UNITS Ondansetron HCl 4 mg Q8HP PRN PO 04/05/25 15:30 Fentanyl Citrate 250 ml @ 2.5 mls/hr Q24H IV 04/06/25 11:00 04/15/25 00:32 15 MLS/HR Norepinephrine Bitartrate 250 ml @ 3.75 mls/hr Q24H IV 04/08/25 02:30 04/08/25 02:37 3.75 MLS/HR Propofol 100 ml @ 2.232 mls/ hr Q24H IV 04/08/25 16:45 04/15/25 14:33 2.232 MLS/HR Cefiderocol 1.5 gm/Sodium Chloride 100 ml @ 33.333 mls/ hr Q8H IV 04/11/25 13:00 04/15/25 13:00 33.333 MLS/HR Enteral Nutritional Formula 1,000 ml 30ML/HR GT 04/15/25 08:45 laboratory and microbiology Laboratory Tests 04/15/25 04:50 Test 04/15/25 04:50 Range/Units Serum Glucose 73 L 74-106 mg/dL Assessment/Plan Impression Acute hypoxemic respiratory failure Altered mental status Hx of CVA Sepsis Patient seen and examined in ICU Events On mechanical ventilation S/p tracheostomy today PEEP 5, FiO2 30% Off sedation, following commands Labs and imaging reviewed ABG reviewed Management Vent support as needed Titrate to maintain sats 90% or above Trach care per RT protocol Trach collar trial Continue antibiotics F/u cultures Bronchodilators Monitor renal function Monitor electrolytes Supplement as needed DVT prophylaxis Critical care time 35 minutes Dietary Evaluation Review Comments: 1) Esau 1 pk BID 2) Refer Pan Pusher on DC 3) Continue current plan of care Expected Outcomes/Goals: Pt will meet >75% estimated needs Fu 3-5 days Plan discussed with: Other (Rn) ARUNA BRISENO MD April 15, 2025 20:04
--- NOTE | 2025-04-15 21:59 | DVHPN2 ---
Progress Note - Dictate Date Seen: April 15, 2025 Medical Necessity Reason Pt with a Central, PICC or Fol: Yes The following are medically ne: Acosta Catheter Reason for acosta catheter: Strict I&O Subjective Patient was seen and evaluated in follow up in the ICU. Patient is intubated and sedated on ventilator 30% FiO2. Trach and PEG in place. No further bleeding at PEG tube site. Planned to be started on tube feedings. WBC 14, HGB 8, HCT 24.7, BUN 27, Food As[employer]er [employer] 1.39. vital signs Vital Sign Date Time Temp Pulse Resp B/P (MAP) Pulse Ox O2 Delivery O2 Flow Rate FiO2 04/15/25 21:14 125/100 04/15/25 21:00 97.9 104 17 100 208.2 04/15/25 20:24 30 04/15/25 18:03 Mechanical Ventilator+ Total Intake and Output 04/14/25 04/14/25 04/15/25 15:00 23:00 07:00 Intake Total 929.984 ml 2068.116 ml 146.336 ml Output Total 1151 ml 600 ml Balance 929.984 ml 917.116 ml -453.664 ml medications Current Medications Medications Dose Ordered Sig/John Route Start Time Stop Time Status Last Admin Dose Admin Acetaminophen 650 mg Q6HP PRN PO 02/19/25 13:45 03/09/25 21:36 650 MG Diagnostic Test (Pha) 1 strip ACHS 02/19/25 17:00 04/15/25 21:34 1 STRIP Dextrose 50 ml UD PRN IV 02/19/25 15:45 04/11/25 21:04 50 ML Potassium Chloride 100 ml @ 50 mls/hr Q2H IV 02/19/25 23:15 02/20/25 05:14 Cancel Potassium Chloride 100 ml @ 50 mls/hr Q2H IV 02/20/25 07:15 02/20/25 11:14 UNV Calcium Acetate 1,334 mg TIDWMEALS PO 03/04/25 12:00 04/15/25 18:00 1,334 MG Ergocalciferol 50,000 unit Q7D PO 03/04/25 11:45 04/15/25 14:30 50,000 UNIT Zirconium Oxide 10 gm TID PO 03/07/25 14:00 Cancel Sodium Bicarbonate 50 ml/ Sodium Chloride 1,050 ml @ 100 mls/hr [id number] IV 03/07/25 11:45 Cancel Pantoprazole Sodium 40 mg BID IV 03/13/25 10:00 04/15/25 21:34 40 MG Albuterol 2.5 mg Q6HR NEB 03/13/25 12:00 04/15/25 18:03 2.5 MG Ipratropium Vanduser 0.5 mg Q6HR NEB 03/13/25 12:00 04/15/25 18:03 0.5 MG Saccharomyces Boulardii 250 mg DAILY PO 03/14/25 10:00 04/15/25 09:40 250 MG Atorvastatin Calcium 80 mg HS PO 03/24/25 22:00 04/15/25 21:34 80 MG Aspirin 81 mg DAILY NG 03/25/25 10:00 04/15/25 09:40 81 MG Insulin Human Regular ACHS SC 03/30/25 22:00 04/14/25 22:06 2 UNITS Ondansetron HCl 4 mg Q8HP PRN PO 04/05/25 15:30 Fentanyl Citrate 250 ml @ 2.5 mls/hr Q24H IV 04/06/25 11:00 04/15/25 21:14 10 MLS/HR Norepinephrine Bitartrate 250 ml @ 3.75 mls/hr Q24H IV 04/08/25 02:30 04/08/25 02:37 3.75 MLS/HR Propofol 100 ml @ 2.232 mls/ hr Q24H IV 04/08/25 16:45 04/15/25 14:33 2.232 MLS/HR Cefiderocol 1.5 gm/Sodium Chloride 100 ml @ 33.333 mls/ hr Q8H IV 04/11/25 13:00 04/15/25 21:13 33.333 MLS/HR Enteral Nutritional Formula 1,000 ml 30ML/HR GT 04/15/25 08:45 objective GENERAL: Ill appearing, intubated on ventilator. EYES: PERRL, EOMI. Anicteric. HENT: Moist mucous membranes. LUNGS: Decreased breath sounds. CARDIOVASCULAR: Regular rate and rhythm. ABDOMEN: Soft, non-tender and non-distended. EXTREMITIES: No edema. SKIN: Warm, dry. laboratory and microbiology Laboratory Tests 04/15/25 04:50 Test 04/15/25 04:50 Range/Units Serum Glucose 73 L 74-106 mg/dL Problem List Multiple acute/subacute strokes. Hypokalemia. Acute kidney injury. Hypertension, newly diagnosed. Insulin-dependent diabetes mellitus. Status post right BKA. Dyslipidemia. Polysubstance use disorder. Left lower extremity cellulitis. Peripheral vascular disease status post right [id number] amputation 6 months ago. Sepsis. Diabetic neuropathy. Assessment/Plan Continued all current supportive medical care. Aspirin, Lipitor. IV antibiotics as ordered. DVT and GI prophylactics. Vasopressors for hemodynamic support. Additional plan as per the hospital course. Critical care time of 45 minutes provided to include time spent evaluation of patient at bedside, when appropriate patient/family education for diagnosis, treatment plan, review of pertinent medical information and discussion of care with specialty providers and PCP. Mechanical ventilator parameters, treatment and adjustments have personally been reviewed by me and treatment plan by business analysis analyst has also been reviewed. Dietary Evaluation Review Comments: 1) Esau 1 pk BID 2) Refer Hat Liner on DC 3) Continue current plan of care Expected Outcomes/Goals: Pt will meet >75% estimated needs Fu 3-5 days Plan discussed with: Other YANIRA WINN MD April 15, 2025 21:59
[2025-04-15] MEDS ORDERED: VANCOMYCIN PER PHARMACY 0 MG IV SCH (22:00)
--- NOTE | 2025-04-15 22:02 | DVHPN2 ---
Consult Progress Note Date Seen: April 15, 2025 Subjective Patient reports: Other (tube feeds have been started and tolerating well , not having abdominal pain , abdomen is mildy distended and volume overloaded on upper and lower extremities ) Objective vital signs Vital Sign Date Time Temp Pulse Resp B/P (MAP) Pulse Ox O2 Delivery O2 Flow Rate FiO2 04/15/25 21:55 100 21 124/74 (91) 100 30 04/15/25 21:00 97.9 208.2 04/15/25 18:03 Mechanical Ventilator+ Total Intake and Output 04/14/25 04/14/25 04/15/25 15:00 23:00 07:00 Intake Total 929.984 ml 2068.116 ml 146.336 ml Output Total 1151 ml 600 ml Balance 929.984 ml 917.116 ml -453.664 ml medications Current Medications Medications Dose Ordered Sig/John Route Start Time Stop Time Status Last Admin Dose Admin Acetaminophen 650 mg Q6HP PRN PO 02/19/25 13:45 03/09/25 21:36 650 MG Diagnostic Test (Pha) 1 strip ACHS 02/19/25 17:00 04/15/25 21:34 1 STRIP Dextrose 50 ml UD PRN IV 02/19/25 15:45 04/11/25 21:04 50 ML Potassium Chloride 100 ml @ 50 mls/hr Q2H IV 02/19/25 23:15 02/20/25 05:14 Cancel Potassium Chloride 100 ml @ 50 mls/hr Q2H IV 02/20/25 07:15 02/20/25 11:14 UNV Calcium Acetate 1,334 mg TIDWMEALS PO 03/04/25 12:00 04/15/25 18:00 1,334 MG Ergocalciferol 50,000 unit Q7D PO 03/04/25 11:45 04/15/25 14:30 50,000 UNIT Zirconium Oxide 10 gm TID PO 03/07/25 14:00 Cancel Sodium Bicarbonate 50 ml/ Sodium Chloride 1,050 ml @ 100 mls/hr [id number] IV 03/07/25 11:45 Cancel Pantoprazole Sodium 40 mg BID IV 03/13/25 10:00 04/15/25 21:34 40 MG Albuterol 2.5 mg Q6HR NEB 03/13/25 12:00 04/15/25 18:03 2.5 MG Ipratropium Cougar 0.5 mg Q6HR NEB 03/13/25 12:00 04/15/25 18:03 0.5 MG Saccharomyces Boulardii 250 mg DAILY PO 03/14/25 10:00 04/15/25 09:40 250 MG Atorvastatin Calcium 80 mg HS PO 03/24/25 22:00 04/15/25 21:34 80 MG Aspirin 81 mg DAILY NG 03/25/25 10:00 04/15/25 09:40 81 MG Insulin Human Regular ACHS SC 03/30/25 22:00 04/14/25 22:06 2 UNITS Ondansetron HCl 4 mg Q8HP PRN PO 04/05/25 15:30 Fentanyl Citrate 250 ml @ 2.5 mls/hr Q24H IV 04/06/25 11:00 04/15/25 21:14 10 MLS/HR Norepinephrine Bitartrate 250 ml @ 3.75 mls/hr Q24H IV 04/08/25 02:30 04/08/25 02:37 3.75 MLS/HR Propofol 100 ml @ 2.232 mls/ hr Q24H IV 04/08/25 16:45 04/15/25 14:33 2.232 MLS/HR Cefiderocol 1.5 gm/Sodium Chloride 100 ml @ 33.333 mls/ hr Q8H IV 04/11/25 13:00 04/15/25 21:13 33.333 MLS/HR Enteral Nutritional Formula 1,000 ml 30ML/HR GT 04/15/25 08:45 Vancomycin HCl 0 ml @ 0 mls/hr UD IV 04/15/25 22:00 UNV laboratory and microbiology Laboratory Tests 04/15/25 04:50 Test 04/15/25 04:50 Range/Units Serum Glucose 73 L 74-106 mg/dL Problem List/Assessment/Plan Problems(with codes): (1) Intractable vomiting (2) Acute abdominal pain (3) Uncontrolled diabetes mellitus (4) UTI (urinary tract infection) (5) Sepsis (6) TATIANNA (acute kidney injury) (7) Substance abuse (8) Intractable abdominal pain Problem List/Assessment/Plan Pneumonia ESBL Klebsiella, Carbapenemic resistant Pseudomonas positive sputum culture , possible due to ventilator associated pneumonia Sepsis probably due to above Left patellar bursitis, I&D w bursectomy performed on 03/07/25 Left knee culture growing MSSA Left foot ulcer, dorsal aspect Multiple acute-subacute strokes Ruled out C diff colitis Hypokalemia TATIANNA on CKD Peripheral arterial disease s/p R BKA 6 months ago Type 2 diabetes, uncontrolled Diabetic neuropathy Angioedema of the tongue Patient is a 64 year old female with a past medical history of diabetes, left foot ulcer , hypertension , hyperlipidemia , anxiety , peripheral arterial disease , depression , presents with left sided weakness and mild dysarthria . Had a brain MRI revealing multiple small falsi of acute to subacute infarcts in the right coronary radiata and right basal ganglia. Underwent MAGALIS which showed no masses or vegetation . Bubble study was negative , valve restriction is normal . Patient was intubated on 03/13 and a rapid was called . Intubated due to airway protection and excavated on 03/26. but then shortly reintubated due to possible right lower lobe aspiration.Is now on 2 liters nasal canula and has left knee swelling ,erythema , cultures were growing MSSA , however on Clindamycin and irrigation and debridement of left patella on 03/07. She is noting having some diarrhea, with some left knee swelling persistent after debridement . Surgical roxanne are clean and left upper extremity swelling is noted . Crackles in the lungs and is tachycardic Assessment: 04/02:Patient is growing pseudomonas , ESBL klebsiella on sputum culture likely due to hospital acquired pneumonia. possible C diff colitis. As well as an MSSA left knee bursitis that has yet to be treated with appropriate antibiotics. Patient has peripheral arterial disease and right decay and uncontrolled diabetes 04/03: patient is doing better , diarrhea has significantly improved and tolerating antibiotics without any fevers or chills . Patient is a bit drowsy . Patient has some mild angioedema of the tongue . C diff testing is negative 04/04: Patient was seen by Dr Velasco and tolerating diet. Agree with Dr. Velasco findings . Not having any worsening diarrhea 04/05: having diarrhea with antibiotic therapy , most recent chest xray shows lung bases that are unremarkable. clinically stable and worsening confusion and immunity , possible aspiration 04/06: patient has ongoing diarrhea as potential source of worsening septic picture . Patient was found to be hypoxic and confused yesterday possible related to acute aspiration event and possible mucus plugging as patient also refused chest pt. 04/07: presser needs are coming down , suspect aspiration event 04/08: required blood transfusion for hemoglobin 6.9 , unclear if this is due to a real bleed and will continue to monitor for signs of bleeding . Chest xray shows cardiomegaly with mild signs of congestion . Head CT shows right posterior frontal periventricular white matter disease , likely subacute to few small old infacts bilateral basal gangular thats greater on the right side. Cultures are currently with moderate gram negative rods in the sputum and blood cultures are no growth to date 04/09: Culture continues to show moderate gram negative jw in the sputum , awaiting speciation . would be concerned [id number] is not being adequately treated for gram negative jw infection in the sputum previously . 04/10: having some diffuse wheezing in lungs likely contributing to acute hypoxia as well as the gram negative jw that is pending speciation 04/11: S/P trach and peg and tolerating feeds . growing medina resistant and carbon resistant ESBL . Klebsiella pneumonia in the lungs 04/12: tolerating antibiotics and not needing nay presser support , no signs of ongoing sepsis . chest xray shows stable pneumonia 04/13: tolerating antibiotics 04/14:peg tube feeding has been stalled and awaiting feeds . trach setting are stable and tachycardia is stable 04/15: awaiting Ltach placement , vancomycin troth have been therapeutic , tolerating antibiotics Plan: - continue fetroja for 5-7 days - continue vancomycin for MSSA left knee cellulitis for a 3-4 week coarse - consider bronchoscopy and deeper sputum cultures and BAL culture if patient is to get a bronchoscopy to asses for airway clearance, defer to pulmonology on this - will fu on pending blood culture and urine culture and stool culture - Authorized and Performed by: Katerine Hughes Total critical care time: Approximately 56 minutes Due to a high probability of clinically significant, life threatening deterioration, the patient required my highest level of preparedness to intervene emergently and I personally spent this critical care time directly and personally managing the patient. This critical care time included obtaining a history; examining the patient; pulse oximetry; ordering and review of studies; arranging urgent treatment with development of a management plan; evaluation of patient's response to treatment; frequent reassessment; and, discussions with other providers. This critical care time was performed to assess and manage the high probability of imminent, life-threatening deterioration that could result in multi-organ failure. It was exclusive of separately billable procedures and treating other patients and teaching time. Plan discussed with: Other Dietary Evaluation Review Comments: 1) Esau 1 pk BID 2) Refer Accreditation Manager on DC 3) Continue current plan of care Expected Outcomes/Goals: Pt will meet >75% estimated needs Fu 3-5 days KATERINE HUGHES MD April 15, 2025 22:02
--- NOTE | 2025-04-15 22:02 | DVHPN2 ---
Consult Progress Note Date Seen: April 13, 2025 Subjective Patient reports: Other (had peg tube placement today , mild bleeding around peg tube site with mild abdominal distension and no bowel movement in last several days , on minimal vent and unable to wean off at this point ) Objective vital signs Vital Sign Date Time Temp Pulse Resp B/P (MAP) Pulse Ox O2 Delivery O2 Flow Rate FiO2 04/15/25 21:55 100 21 124/74 (91) 100 30 04/15/25 21:00 97.9 208.2 04/15/25 18:03 Mechanical Ventilator+ Total Intake and Output 04/14/25 04/14/25 04/15/25 15:00 23:00 07:00 Intake Total 929.984 ml 2068.116 ml 146.336 ml Output Total 1151 ml 600 ml Balance 929.984 ml 917.116 ml -453.664 ml medications Current Medications Medications Dose Ordered Sig/John Route Start Time Stop Time Status Last Admin Dose Admin Acetaminophen 650 mg Q6HP PRN PO 02/19/25 13:45 03/09/25 21:36 650 MG Diagnostic Test (Pha) 1 strip ACHS 02/19/25 17:00 04/15/25 21:34 1 STRIP Dextrose 50 ml UD PRN IV 02/19/25 15:45 04/11/25 21:04 50 ML Potassium Chloride 100 ml @ 50 mls/hr Q2H IV 02/19/25 23:15 02/20/25 05:14 Cancel Potassium Chloride 100 ml @ 50 mls/hr Q2H IV 02/20/25 07:15 02/20/25 11:14 UNV Calcium Acetate 1,334 mg TIDWMEALS PO 03/04/25 12:00 04/15/25 18:00 1,334 MG Ergocalciferol 50,000 unit Q7D PO 03/04/25 11:45 04/15/25 14:30 50,000 UNIT Zirconium Oxide 10 gm TID PO 03/07/25 14:00 Cancel Sodium Bicarbonate 50 ml/ Sodium Chloride 1,050 ml @ 100 mls/hr [id number] IV 03/07/25 11:45 Cancel Pantoprazole Sodium 40 mg BID IV 03/13/25 10:00 04/15/25 21:34 40 MG Albuterol 2.5 mg Q6HR NEB 03/13/25 12:00 04/15/25 18:03 2.5 MG Ipratropium [place] 0.5 mg Q6HR NEB 03/13/25 12:00 04/15/25 18:03 0.5 MG Saccharomyces Boulardii 250 mg DAILY PO 03/14/25 10:00 04/15/25 09:40 250 MG Atorvastatin Calcium 80 mg HS PO 03/24/25 22:00 04/15/25 21:34 80 MG Aspirin 81 mg DAILY NG 03/25/25 10:00 04/15/25 09:40 81 MG Insulin Human Regular ACHS SC 03/30/25 22:00 04/14/25 22:06 2 UNITS Ondansetron HCl 4 mg Q8HP PRN PO 04/05/25 15:30 Fentanyl Citrate 250 ml @ 2.5 mls/hr Q24H IV 04/06/25 11:00 04/15/25 21:14 10 MLS/HR Norepinephrine Bitartrate 250 ml @ 3.75 mls/hr Q24H IV 04/08/25 02:30 04/08/25 02:37 3.75 MLS/HR Propofol 100 ml @ 2.232 mls/ hr Q24H IV 04/08/25 16:45 04/15/25 14:33 2.232 MLS/HR Cefiderocol 1.5 gm/Sodium Chloride 100 ml @ 33.333 mls/ hr Q8H IV 04/11/25 13:00 04/15/25 21:13 33.333 MLS/HR Enteral Nutritional Formula 1,000 ml 30ML/HR GT 04/15/25 08:45 Vancomycin HCl 0 ml @ 0 mls/hr UD IV 04/15/25 22:00 UNV laboratory and microbiology Laboratory Tests 04/15/25 04:50 Test 04/15/25 04:50 Range/Units Serum Glucose 73 L 74-106 mg/dL Problem List/Assessment/Plan Problems(with codes): (1) Intractable vomiting (2) Acute abdominal pain (3) Uncontrolled diabetes mellitus (4) UTI (urinary tract infection) (5) Sepsis (6) TATIANNA (acute kidney injury) (7) Substance abuse (8) Intractable abdominal pain Problem List/Assessment/Plan Pneumonia ESBL Klebsiella, Carbapenemic resistant Pseudomonas positive sputum culture , possible due to ventilator associated pneumonia Sepsis probably due to above Left patellar bursitis, I&D w bursectomy performed on 03/07/25 Left knee culture growing MSSA Left foot ulcer, dorsal aspect Multiple acute-subacute strokes Ruled out C diff colitis Hypokalemia TATIANNA on CKD Peripheral arterial disease s/p R BKA 6 months ago Type 2 diabetes, uncontrolled Diabetic neuropathy Angioedema of the tongue Patient is a 64 year old female with a past medical history of diabetes, left foot ulcer , hypertension , hyperlipidemia , anxiety , peripheral arterial disease , depression , presents with left sided weakness and mild dysarthria . Had a brain MRI revealing multiple small falsi of acute to subacute infarcts in the right coronary radiata and right basal ganglia. Underwent MAGALIS which showed no masses or vegetation . Bubble study was negative , valve restriction is normal . Patient was intubated on 03/13 and a rapid was called . Intubated due to airway protection and excavated on 03/26. but then shortly reintubated due to possible right lower lobe aspiration.Is now on 2 liters nasal canula and has left knee swelling ,erythema , cultures were growing MSSA , however on Clindamycin and irrigation and debridement of left patella on 03/07. She is noting having some diarrhea, with some left knee swelling persistent after debridement . Surgical roxanne are clean and left upper extremity swelling is noted . Crackles in the lungs and is tachycardic Assessment: 04/02:Patient is growing pseudomonas , ESBL klebsiella on sputum culture likely due to hospital acquired pneumonia. possible C diff colitis. As well as an MSSA left knee bursitis that has yet to be treated with appropriate antibiotics. Patient has peripheral arterial disease and right decay and uncontrolled diabetes 04/03: patient is doing better , diarrhea has significantly improved and tolerating antibiotics without any fevers or chills . Patient is a bit drowsy . Patient has some mild angioedema of the tongue . C diff testing is negative 04/04: Patient was seen by Dr Velasco and tolerating diet. Agree with Dr. Velasco findings . Not having any worsening diarrhea 04/05: having diarrhea with antibiotic therapy , most recent chest xray shows lung bases that are unremarkable. clinically stable and worsening confusion and immunity , possible aspiration 04/06: patient has ongoing diarrhea as potential source of worsening septic picture . Patient was found to be hypoxic and confused yesterday possible related to acute aspiration event and possible mucus plugging as patient also refused chest pt. 04/07: presser needs are coming down , suspect aspiration event 04/08: required blood transfusion for hemoglobin 6.9 , unclear if this is due to a real bleed and will continue to monitor for signs of bleeding . Chest xray shows cardiomegaly with mild signs of congestion . Head CT shows right posterior frontal periventricular white matter disease , likely subacute to few small old infacts bilateral basal gangular thats greater on the right side. Cultures are currently with moderate gram negative rods in the sputum and blood cultures are no growth to date 04/09: Culture continues to show moderate gram negative jw in the sputum , awaiting speciation . would be concerned [id number] is not being adequately treated for gram negative jw infection in the sputum previously . 04/10: having some diffuse wheezing in lungs likely contributing to acute hypoxia as well as the gram negative jw that is pending speciation 04/11: S/P trach and peg and tolerating feeds . growing medina resistant and carbon resistant ESBL . Klebsiella pneumonia in the lungs 04/12: tolerating antibiotics and not needing nay presser support , no signs of ongoing sepsis . chest xray shows stable pneumonia 04/13: tolerating antibiotics Plan: - continue fetroja for 5-7 days - continue vancomycin for MSSA left knee cellulitis for a 3-4 week coarse - consider bronchoscopy and deeper sputum cultures and BAL culture if patient is to get a bronchoscopy to asses for airway clearance, defer to pulmonology on this - will fu on pending blood culture and urine culture and stool culture - Authorized and Performed by: Katerine Hughes Total critical care time: Approximately 56 minutes Due to a high probability of clinically significant, life threatening deterioration, the patient required my highest level of preparedness to intervene emergently and I personally spent this critical care time directly and personally managing the patient. This critical care time included obtaining a history; examining the patient; pulse oximetry; ordering and review of studies; arranging urgent treatment with development of a management plan; evaluation of patient's response to treatment; frequent reassessment; and, discussions with other providers. This critical care time was performed to assess and manage the high probability of imminent, life-threatening deterioration that could result in multi-organ failure. It was exclusive of separately billable procedures and treating other patients and teaching time. Plan discussed with: Other Dietary Evaluation Review Comments: 1) Esau 1 pk BID 2) Refer Clutch Inspector on DC 3) Continue current plan of care Expected Outcomes/Goals: Pt will meet >75% estimated needs Fu 3-5 days KATERINE HUGHES MD April 15, 2025 22:02
[2025-04-15] MEDS: VANCOMYCIN 1.5GM/300ML 300 ML IV ONE (22:53)
[2025-04-16] VITALS (107 sets, daily range): BP systolic 83–164; BP diastolic 43–111; PULSE 54–111; RESP 10–28; TEMP 97–98.1; O2SAT 96–100
[2025-04-16 05:06] LABS: Basophils # (auto) 0.1 10 ^3/uL (0-0.2); Eosinophils # (auto) 0.1 10 ^3/uL (0-0.8); Hemoglobin 7.6 g/dL (12.2-16.2); Mean Corpuscular Volume 86.5 fL (80.0-100.0); Monocytes # (auto) 0.6 10 ^3/uL (0-1.3)
[2025-04-16 05:10] LABS: Basophils % (auto) 0.5 % (0.0-2.0); Eosinophils % (auto) 0.8 % (0.0-7.0); Hematocrit 22.8 % (36.0-46.0); Lymphocytes % (auto) 6.4 % (10.0-50.0); Mean Corpuscular Hemoglobin 28.8 pg (28.0-32.0); Mean Corpuscular Hgb Conc. 33.3 g/dL (32.0-36.0); Monocytes % (auto) 3.8 % (0.0-12.0); Neutrophils % (auto) 88.5 % (37.0-80.0); Platelet Count (auto) 311 10^3/uL (140-450); Red Blood Cells 2.64 10^6/uL (4.0-5.20); Red Cell Distribution Width 17.4 % (11.8-14.3); White Blood Cell 15.8 10^3/uL (4.4-10.8)
[2025-04-16 05:15] LABS: Anion Gap 12 (5-15); Aspartate Aminotransferase 21 U/L (13-40); BUN/Creatinine Ratio 18.4 (10.0-20.0); Magnesium 1.7 mg/dL (1.6-2.6); Sodium 140 mmol/L (136-145)
[2025-04-16 05:52] LABS: Alanine Aminotransferase < 9 U/L (7-40); Albumin 2.3 g/dL (3.2-4.8); Alkaline Phosphatase 165 U/L (46-116); Bilirubin, Total < 0.2 mg/dL (0.2-1.0); Blood Urea Nitrogen 26 mg/dL (9-23); Calcium 8.1 mg/dL (8.7-10.4); Carbon Dioxide 16 mmol/L (20-31); Chloride 112 mmol/L (98-107); Glucose 133 mg/dL (74-106); Potassium 3.3 mmol/L (3.5-5.1); Total Protein 4.9 g/dL (5.7-8.2)
[2025-04-16 07:59] LABS: Base Excess -9.8 mmol/L (-2.0-3.0)
[2025-04-16] MEDS: POTASSIUM CHL 20MEQ/100ML 100 ML IV ONE (08:41)
[2025-04-16] MEDS ORDERED: POTASSIUM EFFERVESENT TAB 25 MEQ PO ONE (08:45)
[2025-04-16] MEDS ORDERED: MAGNESIUM SULFATE 1GM/100ML 100 ML IV ONE (08:45)
--- NOTE | 2025-04-16 09:18 | DVHPN2 ---
Subjective Denies any symptoms Reviewed: Care Plan, H&P, Labs, Medications, Previous Orders, Radiology, Other (Consultations) Changes from previous H/P or p: No Changes General: Per HPI Objective Vitals Vital Signs Date Time Temp Pulse Resp B/P (MAP) Pulse Ox O2 Delivery O2 Flow Rate FiO2 04/16/25 08:52 121/70 04/16/25 08:29 84 18 99 30 04/16/25 08:00 97.0 97.0 04/16/25 06:00 Mechanical Ventilator+ Intake/Output Intake and Output 04/16/25 07:00 Intake Total 1363.854 ml Output Total 2175 ml Balance -811.146 ml Intake Oral 0 ml IV Total 553.854 ml Tube Feeding 650 ml Other 160 ml Output Urine Total 2175 ml Urine/Stool Mix 0 ml Exam Assess patient will sitting in her wheelchair. General Appearance: mild distress, Other (Chemically sedated) HEENT: Atraumatic, PERRLA Lungs: Clear to auscultation, Normal air movement, Other Cardiovascular: Regular rate, Normal S1, Normal S2 Abdomen: Normal bowel sounds, Soft Genitourinary: No Apparent Abnormalities, Other Extremities: Other Neuro: Cranial nerves 3-12 NL, Other Skin: Dry, Intact, Wounds Psych/Mental Status: Other Medications Current Medications Medications Dose Ordered Sig/John Route Start Time Stop Time Status Last Admin Dose Admin Acetaminophen 650 mg Q6HP PRN PO 02/19/25 13:45 03/09/25 21:36 650 MG Diagnostic Test (Pha) 1 strip ACHS 02/19/25 17:00 04/16/25 06:43 1 STRIP Dextrose 50 ml UD PRN IV 02/19/25 15:45 04/11/25 21:04 50 ML Potassium Chloride 100 ml @ 50 mls/hr Q2H IV 02/19/25 23:15 02/20/25 05:14 Cancel Potassium Chloride 100 ml @ 50 mls/hr Q2H IV 02/20/25 07:15 02/20/25 11:14 UNV Calcium Acetate 1,334 mg TIDWMEALS PO 03/04/25 12:00 04/15/25 18:00 1,334 MG Ergocalciferol 50,000 unit Q7D PO 03/04/25 11:45 04/15/25 14:30 50,000 UNIT Zirconium Oxide 10 gm TID PO 03/07/25 14:00 Cancel Sodium Bicarbonate 50 ml/ Sodium Chloride 1,050 ml @ 100 mls/hr [id number] IV 03/07/25 11:45 Cancel Pantoprazole Sodium 40 mg BID IV 03/13/25 10:00 04/15/25 21:34 40 MG Albuterol 2.5 mg Q6HR NEB 03/13/25 12:00 04/16/25 06:36 2.5 MG Ipratropium [place] 0.5 mg Q6HR NEB 03/13/25 12:00 04/16/25 06:36 0.5 MG Saccharomyces Boulardii 250 mg DAILY PO 03/14/25 10:00 04/15/25 09:40 250 MG Atorvastatin Calcium 80 mg HS PO 03/24/25 22:00 04/15/25 21:34 80 MG Aspirin 81 mg DAILY NG 03/25/25 10:00 04/15/25 09:40 81 MG Insulin Human Regular ACHS SC 03/30/25 22:00 04/16/25 06:44 2 UNITS Ondansetron HCl 4 mg Q8HP PRN PO 04/05/25 15:30 Fentanyl Citrate 250 ml @ 2.5 mls/hr Q24H IV 04/06/25 11:00 04/15/25 21:14 10 MLS/HR Norepinephrine Bitartrate 250 ml @ 3.75 mls/hr Q24H IV 04/08/25 02:30 04/08/25 02:37 3.75 MLS/HR Propofol 100 ml @ 2.232 mls/ hr Q24H IV 04/08/25 16:45 04/16/25 08:52 4.464 MLS/HR Cefiderocol 1.5 gm/Sodium Chloride 100 ml @ 33.333 mls/ hr Q8H IV 04/11/25 13:00 04/16/25 04:50 33.333 MLS/HR Enteral Nutritional Formula 1,000 ml 30ML/HR GT 04/15/25 08:45 Vancomycin HCl 0 ml @ 0 mls/hr UD IV 04/15/25 22:00 Laboratory Results Laboratory Tests 04/16/25 04:45 Chemistry Test 04/16/25 04:45 Albumin 2.3 g/dL (3.2-4.8) L Calcium Level 8.1 mg/dL (8.7-10.4) L Magnesium Level 1.7 mg/dL (1.6-2.6) Total Protein 4.9 g/dL (5.7-8.2) L LFT Test 04/16/25 04:45 Alanine Aminotransferase (ALT) < 9 U/L (7-40) Alkaline Phosphatase 165 U/L (46-116) H Aspartate Amino Transferase (AST) 21 U/L (13-40) Total Bilirubin < 0.2 mg/dL (0.2-1.0) L Urinalysis Test 02/19/25 17:27 03/04/25 05:00 Urine Color Colorless (Yellow) Urine Clarity Clear (Clear) Urine pH 6.5 (5.0-9.0) Urine Specific [place] 1.008 (1.001-1.035) Urine Protein 2+ (Negative) H Urine Ketones 1+ (Negative) H Urine Blood 1+ /uL (Negative) H Urine Nitrite Negative (Negative) Urine Bilirubin Negative (Negative) Urine Urobilinogen Normal mg/dL (Negative) Urine Leukocyte Esterase Negative /uL (Negative) Urine RBC 6 /hpf (0 - 4) Urine Microscopic WBC 2 /HPF (0-5) Urine Squamous Epithelial Cells Few /hpf (<5) Urine Bacteria None seen /hpf (None Seen) Urine Glucose 2+ mg/dL (Normal) H Urine Creatinine 25.51 mg/dL (30.0-125.0) L Urine Protein/Creatinine Ratio 14.00 Urine Sodium 80 mmol/L (40-220) Urine Total Protein 357.1 mg/dL (1-14) H Blood Gas Results Test 04/16/25 07:22 Arterial Blood pH 7.388 (7.350-7.450) FiO2 % 30.0 Microbiology Microbiology Date/Time Source Procedure Growth Status 04/06/25 20:35 Blood Blood Culture - Final NO GROWTH AFTER 5 DAYS OF INCUBATION. Complete 04/06/25 10:20 Sputum Gram Stain - Final Complete 04/06/25 10:20 Respiratory Culture - Final Klebsiella pneumoniae - ESBL Complete 04/02/25 13:00 Stool Clostridium difficile Toxin Assay - Final Complete 03/06/25 14:37 Knee Left Gram Stain - Final Complete 03/06/25 14:37 Knee Left Anaerobic Culture - Final Complete 03/06/25 14:37 Aerobic Culture - Final Staphylococcus aureus Complete 03/04/25 13:29 Aspirate Gram Stain - Final Complete 03/04/25 13:29 Body Fluid Culture - Final Staphylococcus aureus Complete 02/19/25 17:27 Urine - [place] Urine Culture - Final Complete Labs and/or images reviewed: Labs reviewed by me, Image(s) reviewed by me Assessment/Plan Assessment/Plan Impression: Multiple acute/subacute strokes Left lower extremity cellulitis Rule out left septic knee Hypokalemia Acute kidney injury likely hemodynamically mediated due to vasomotor nephropathy Chronic kidney disease Peripheral vascular disease status post right [id number] amputation 6 months ago Poorly controlled type 2 diabetes Sepsis Hypertension Mixed hyperlipidemia Polysubstance use disorder Diabetic neuropathy -? Suicidal ideation -septic bursitis with Staphylococcus aureus -septic shock Angioedema of the tongue -hyponatremia -patient with ESBL and CRE in the sputum -cardiac arrest Plan: -events: K and Mag replacement today. WBC increasing. PICC line placement with removal of central line once placed. Exchange [place] catheter. -social service consultation: Continue with efforts to transfer to long-term acute care -continue antibiotics per ID -hold tube feedings -continue sedation for RASS negative three -hold anticoagulants -PUD prophylaxis -bronchodilators -continue PPI Repeat labs and chest x-ray in a.m. Critical care time spent with patient discussing and formulating plan of care: 90 minutes. This does not include time spent performing procedures. This medical document was created using an electronic medical record system with [employer] dictation system. Although this document has been carefully reviewed, there may still be some phonetic and typographical errors. These areas are purely typographical due to imperfections of the software programs, and do not reflect any compromise in the patient's medical care. Plan discussed with: Patient, Other (RN) My Orders Orders - JUSTIN BONILLA NP Procedure Category Date Status Time * Picc Line Consult CONS 04/16/25 Transmitted 09:02 Ok To Change [place] ORDERS 04/16/25 Transmitted 09:02 Communication Order ORDERS 04/16/25 Transmitted 09:02 Date of Service: April 16, 2025 Billing Provider: JUSTIN BONILLA NP Common Visit Codes: [id number] CARE 30-74 MIN JUSTIN BONILLA NP April 16, 2025 09:18
[2025-04-16] MEDS: VANCOMYCIN 1GM/200ML PM 200 ML IV ONE (10:06)
[2025-04-16] MEDS: MAGNESIUM SULFATE 1GM/100ML 100 ML IV ONE (10:22)
[2025-04-16 10:45] LABS: INR 1.25 (0.9-1.15)
--- NOTE | 2025-04-16 12:06 | DVHPN2 ---
Progress Note - Dictate Date Seen: April 16, 2025 Medical Necessity Reason Pt with a Central, PICC or Fol: Yes The following are medically ne: Acosta Catheter Reason for acosta catheter: Strict I&O vital signs Vital Sign Date Time Temp Pulse Resp B/P (MAP) Pulse Ox O2 Delivery O2 Flow Rate FiO2 04/16/25 11:30 78 18 91/50 (64) 100 04/16/25 10:39 30 04/16/25 10:00 Mechanical Ventilator+ 04/16/25 08:00 97.0 97.0 Total Intake and Output 04/15/25 04/15/25 04/16/25 15:00 23:00 07:00 Intake Total 126.872 ml 555.290 ml 681.692 ml Output Total 1175 ml 1000 ml Balance 126.872 ml -619.710 ml -318.308 ml medications Current Medications Medications Dose Ordered Sig/John Route Start Time Stop Time Status Last Admin Dose Admin Acetaminophen 650 mg Q6HP PRN PO 02/19/25 13:45 03/09/25 21:36 650 MG Diagnostic Test (Pha) 1 strip ACHS 02/19/25 17:00 04/16/25 06:43 1 STRIP Dextrose 50 ml UD PRN IV 02/19/25 15:45 04/11/25 21:04 50 ML Potassium Chloride 100 ml @ 50 mls/hr Q2H IV 02/19/25 23:15 02/20/25 05:14 Cancel Potassium Chloride 100 ml @ 50 mls/hr Q2H IV 02/20/25 07:15 02/20/25 11:14 UNV Calcium Acetate 1,334 mg TIDWMEALS PO 03/04/25 12:00 04/16/25 10:05 1,334 MG Ergocalciferol 50,000 unit Q7D PO 03/04/25 11:45 04/15/25 14:30 50,000 UNIT Zirconium Oxide 10 gm TID PO 03/07/25 14:00 Cancel Sodium Bicarbonate 50 ml/ Sodium Chloride 1,050 ml @ 100 mls/hr [id number] IV 03/07/25 11:45 Cancel Pantoprazole Sodium 40 mg BID IV 03/13/25 10:00 04/16/25 10:02 40 MG Albuterol 2.5 mg Q6HR NEB 03/13/25 12:00 04/16/25 06:36 2.5 MG Ipratropium [place] 0.5 mg Q6HR NEB 03/13/25 12:00 04/16/25 06:36 0.5 MG Saccharomyces Boulardii 250 mg DAILY PO 03/14/25 10:00 04/16/25 10:05 250 MG Atorvastatin Calcium 80 mg HS PO 03/24/25 22:00 04/15/25 21:34 80 MG Aspirin 81 mg DAILY NG 03/25/25 10:00 04/16/25 10:05 81 MG Insulin Human Regular ACHS SC 03/30/25 22:00 04/16/25 06:44 2 UNITS Ondansetron HCl 4 mg Q8HP PRN PO 04/05/25 15:30 Fentanyl Citrate 250 ml @ 2.5 mls/hr Q24H IV 04/06/25 11:00 04/15/25 21:14 10 MLS/HR Norepinephrine Bitartrate 250 ml @ 3.75 mls/hr Q24H IV 04/08/25 02:30 04/08/25 02:37 3.75 MLS/HR Propofol 100 ml @ 2.232 mls/ hr Q24H IV 04/08/25 16:45 04/16/25 08:52 4.464 MLS/HR Cefiderocol 1.5 gm/Sodium Chloride 100 ml @ 33.333 mls/ hr Q8H IV 04/11/25 13:00 04/16/25 04:50 33.333 MLS/HR Enteral Nutritional Formula 1,000 ml 30ML/HR GT 04/15/25 08:45 Vancomycin HCl 0 ml @ 0 mls/hr UD IV 04/15/25 22:00 laboratory and microbiology Laboratory Tests 04/16/25 04:45 Test 04/16/25 04:45 Range/Units Serum Glucose 133 H 74-106 mg/dL Assessment/Plan Impression Acute hypoxemic respiratory failure Altered mental status Hx of CVA Sepsis Patient seen and examined in ICU Events On mechanical ventilation S/p tracheostomy today PEEP 5, FiO2 30% Off sedation, following commands Labs and imaging reviewed ABG reviewed Management Vent support as needed Titrate to maintain sats 90% or above Trach care per RT protocol Trach collar trial Continue antibiotics F/u cultures Bronchodilators Monitor renal function Monitor electrolytes Supplement as needed DVT prophylaxis Critical care time 35 minutes Dietary Evaluation Review Comments: 1) Esau 1 pk BID 2) Refer Virtual Assistant For Advertisers on DC 3) Continue current plan of care Expected Outcomes/Goals: Pt will meet >75% estimated needs Fu 3-5 days Plan discussed with: Other (rn) ARUNA BRISENO MD April 16, 2025 12:06
[2025-04-16] MEDS: hydrALAZINE HCL 20 MG/ML VL IV PRN (16:08)
[2025-04-16] MEDS: LIDOCAINE 1% (LOCAL ANESTH.) PF 5ml SDV ID ONE (18:28)
[2025-04-16] MEDS: Jevity 1.2 Cal/Fiber 1 Liter GT SCH (19:50)
--- NOTE | 2025-04-16 20:51 | DVHPN2 ---
Progress Note - Dictate Date Seen: April 16, 2025 Medical Necessity Reason Pt with a Central, PICC or Fol: Yes The following are medically ne: Acosta Catheter Reason for acosta catheter: Strict I&O Subjective Patient was seen and evaluated in follow up in the ICU. Patient is intubated and sedated on ventilator 30% FiO2. WBC 15.8, HGB 7.6, HCT 22.8, K 3.3, CL 112, CO2 16, BUN 26, SOLDERER FURNACE 1.41, CA 8.1. K and Mag replaced. Pending PICC line placement with removal of central line once placed. vital signs Vital Sign Date Time Temp Pulse Resp B/P (MAP) Pulse Ox O2 Delivery O2 Flow Rate FiO2 04/16/25 12:30 88 18 92/50 (64) 99 04/16/25 12:06 30 04/16/25 12:00 97.3 97.3 04/16/25 12:00 Mechanical Ventilator+ Total Intake and Output 04/15/25 04/15/25 04/16/25 15:00 23:00 07:00 Intake Total 126.872 ml 555.290 ml 681.692 ml Output Total 1175 ml 1000 ml Balance 126.872 ml -619.710 ml -318.308 ml medications Current Medications Medications Dose Ordered Sig/John Route Start Time Stop Time Status Last Admin Dose Admin Acetaminophen 650 mg Q6HP PRN PO 02/19/25 13:45 03/09/25 21:36 650 MG Diagnostic Test (Pha) 1 strip ACHS 02/19/25 17:00 04/16/25 11:30 1 STRIP Dextrose 50 ml UD PRN IV 02/19/25 15:45 04/11/25 21:04 50 ML Potassium Chloride 100 ml @ 50 mls/hr Q2H IV 02/19/25 23:15 02/20/25 05:14 Cancel Potassium Chloride 100 ml @ 50 mls/hr Q2H IV 02/20/25 07:15 02/20/25 11:14 UNV Calcium Acetate 1,334 mg TIDWMEALS PO 03/04/25 12:00 04/16/25 12:53 1,334 MG Ergocalciferol 50,000 unit Q7D PO 03/04/25 11:45 04/15/25 14:30 50,000 UNIT Zirconium Oxide 10 gm TID PO 03/07/25 14:00 Cancel Sodium Bicarbonate 50 ml/ Sodium Chloride 1,050 ml @ 100 mls/hr [id number] IV 03/07/25 11:45 Cancel Pantoprazole Sodium 40 mg BID IV 03/13/25 10:00 04/16/25 10:02 40 MG Albuterol 2.5 mg Q6HR NEB 03/13/25 12:00 04/16/25 12:06 2.5 MG Ipratropium [place] 0.5 mg Q6HR NEB 03/13/25 12:00 04/16/25 12:06 0.5 MG Saccharomyces Boulardii 250 mg DAILY PO 03/14/25 10:00 04/16/25 10:05 250 MG Atorvastatin Calcium 80 mg HS PO 03/24/25 22:00 04/15/25 21:34 80 MG Aspirin 81 mg DAILY NG 03/25/25 10:00 04/16/25 10:05 81 MG Insulin Human Regular ACHS SC 03/30/25 22:00 04/16/25 06:44 2 UNITS Ondansetron HCl 4 mg Q8HP PRN PO 04/05/25 15:30 Fentanyl Citrate 250 ml @ 2.5 mls/hr Q24H IV 04/06/25 11:00 04/15/25 21:14 10 MLS/HR Norepinephrine Bitartrate 250 ml @ 3.75 mls/hr Q24H IV 04/08/25 02:30 04/08/25 02:37 3.75 MLS/HR Propofol 100 ml @ 2.232 mls/ hr Q24H IV 04/08/25 16:45 04/16/25 08:52 4.464 MLS/HR Cefiderocol 1.5 gm/Sodium Chloride 100 ml @ 33.333 mls/ hr Q8H IV 04/11/25 13:00 04/16/25 04:50 33.333 MLS/HR Enteral Nutritional Formula 1,000 ml 30ML/HR GT 04/15/25 08:45 Vancomycin HCl 0 ml @ 0 mls/hr UD IV 04/15/25 22:00 objective GENERAL: Ill appearing, intubated on ventilator. EYES: PERRL, EOMI. Anicteric. HENT: Moist mucous membranes. LUNGS: Decreased breath sounds. CARDIOVASCULAR: Regular rate and rhythm. ABDOMEN: Soft, non-tender and non-distended. EXTREMITIES: No edema. SKIN: Warm, dry. laboratory and microbiology Laboratory Tests 04/16/25 04:45 Test 04/16/25 04:45 Range/Units Serum Glucose 133 H 74-106 mg/dL Problem List Multiple acute/subacute strokes. Hypokalemia. Acute kidney injury. Hypertension, newly diagnosed. Insulin-dependent diabetes mellitus. Status post right BKA. Dyslipidemia. Polysubstance use disorder. Left lower extremity cellulitis. Peripheral vascular disease status post right [id number] amputation 6 months ago. Sepsis. Diabetic neuropathy. Assessment/Plan Continued all current supportive medical care. Aspirin, Lipitor. IV antibiotics as ordered. DVT and GI prophylactics. Vasopressors for hemodynamic support. Additional plan as per the hospital course. Critical care time of 45 minutes provided to include time spent evaluation of patient at bedside, when appropriate patient/family education for diagnosis, treatment plan, review of pertinent medical information and discussion of care with specialty providers and PCP. Mechanical ventilator parameters, treatment and adjustments have personally been reviewed by me and treatment plan by resident advisor has also been reviewed. Dietary Evaluation Review Comments: 1) Esau 1 pk BID 2) Refer Food And Beverage Outlets Manager on DC 3) Continue current plan of care Expected Outcomes/Goals: Pt will meet >75% estimated needs Fu 3-5 days Plan discussed with: Other YANIRA WINN MD April 16, 2025 13:11
[2025-04-16] MEDS: SODIUM CHLOR 0.9% PF (SALINE LOCK) 10ML VIAL/SYR IV SCH (21:32)
--- NOTE | 2025-04-16 22:07 | DVHPN2 ---
Consult Progress Note Date Seen: April 16, 2025 Subjective Patient reports: Other (not on any BP support , on sedation and pain drips . new piccline in place and recieving antibiotics through it ) Objective vital signs Vital Sign Date Time Temp Pulse Resp B/P (MAP) Pulse Ox O2 Delivery O2 Flow Rate FiO2 04/16/25 20:18 95 26 139/66 (90) 97 30 04/16/25 20:00 Mechanical Ventilator+ 04/16/25 12:00 97.3 97.3 Total Intake and Output 04/15/25 04/15/25 04/16/25 15:00 23:00 07:00 Intake Total 126.872 ml 555.290 ml 681.692 ml Output Total 1175 ml 1000 ml Balance 126.872 ml -619.710 ml -318.308 ml medications Current Medications Medications Dose Ordered Sig/John Route Start Time Stop Time Status Last Admin Dose Admin Acetaminophen 650 mg Q6HP PRN PO 02/19/25 13:45 03/09/25 21:36 650 MG Diagnostic Test (Pha) 1 strip ACHS 02/19/25 17:00 04/16/25 21:32 1 STRIP Dextrose 50 ml UD PRN IV 02/19/25 15:45 04/11/25 21:04 50 ML Potassium Chloride 100 ml @ 50 mls/hr Q2H IV 02/19/25 23:15 02/20/25 05:14 Cancel Potassium Chloride 100 ml @ 50 mls/hr Q2H IV 02/20/25 07:15 02/20/25 11:14 UNV Calcium Acetate 1,334 mg TIDWMEALS PO 03/04/25 12:00 04/16/25 17:12 1,334 MG Ergocalciferol 50,000 unit Q7D PO 03/04/25 11:45 04/15/25 14:30 50,000 UNIT Zirconium Oxide 10 gm TID PO 03/07/25 14:00 Cancel Sodium Bicarbonate 50 ml/ Sodium Chloride 1,050 ml @ 100 mls/hr [id number] IV 03/07/25 11:45 Cancel Pantoprazole Sodium 40 mg BID IV 03/13/25 10:00 04/16/25 21:31 40 MG Albuterol 2.5 mg Q6HR NEB 03/13/25 12:00 04/16/25 18:31 2.5 MG Ipratropium [place] 0.5 mg Q6HR NEB 03/13/25 12:00 04/16/25 18:31 0.5 MG Saccharomyces Boulardii 250 mg DAILY PO 03/14/25 10:00 04/16/25 10:05 250 MG Atorvastatin Calcium 80 mg HS PO 03/24/25 22:00 04/16/25 21:31 80 MG Aspirin 81 mg DAILY NG 03/25/25 10:00 04/16/25 10:05 81 MG Insulin Human Regular ACHS SC 03/30/25 22:00 04/16/25 21:36 2 UNITS Ondansetron HCl 4 mg Q8HP PRN PO 04/05/25 15:30 Fentanyl Citrate 250 ml @ 2.5 mls/hr Q24H IV 04/06/25 11:00 04/15/25 21:14 10 MLS/HR Norepinephrine Bitartrate 250 ml @ 3.75 mls/hr Q24H IV 04/08/25 02:30 04/08/25 02:37 3.75 MLS/HR Propofol 100 ml @ 2.232 mls/ hr Q24H IV 04/08/25 16:45 04/16/25 08:52 4.464 MLS/HR Cefiderocol 1.5 gm/Sodium Chloride 100 ml @ 33.333 mls/ hr Q8H IV 04/11/25 13:00 04/16/25 21:28 33.333 MLS/HR Enteral Nutritional Formula 1,000 ml 30ML/HR GT 04/15/25 08:45 04/16/25 19:50 1,000 ML Vancomycin HCl 0 ml @ 0 mls/hr UD IV 04/15/25 22:00 Hydralazine HCl 10 mg Q4HPRN PRN IV 04/16/25 16:00 04/16/25 16:08 10 MG Sodium Chloride 10 ml QSHIFT@10,22 IV 04/16/25 22:00 04/16/25 21:32 10 ML laboratory and microbiology Laboratory Tests 04/16/25 04:45 Test 04/16/25 04:45 Range/Units Serum Glucose 133 H 74-106 mg/dL Problem List/Assessment/Plan Problems(with codes): (1) Intractable vomiting (2) Acute abdominal pain (3) Uncontrolled diabetes mellitus (4) UTI (urinary tract infection) (5) Sepsis (6) TATIANNA (acute kidney injury) Problem List/Assessment/Plan Pneumonia ESBL Klebsiella, Carbapenemic resistant Pseudomonas positive sputum culture , possible due to ventilator associated pneumonia Sepsis probably due to above Left patellar bursitis, I&D w bursectomy performed on 03/07/25 Left knee culture growing MSSA Left foot ulcer, dorsal aspect Multiple acute-subacute strokes Ruled out C diff colitis Hypokalemia TATIANNA on CKD Peripheral arterial disease s/p R BKA 6 months ago Type 2 diabetes, uncontrolled Diabetic neuropathy Angioedema of the tongue Patient is a 64 year old female with a past medical history of diabetes, left foot ulcer , hypertension , hyperlipidemia , anxiety , peripheral arterial disease , depression , presents with left sided weakness and mild dysarthria . Had a brain MRI revealing multiple small falsi of acute to subacute infarcts in the right coronary radiata and right basal ganglia. Underwent MAGALIS which showed no masses or vegetation . Bubble study was negative , valve restriction is normal . Patient was intubated on 03/13 and a rapid was called . Intubated due to airway protection and excavated on 03/26. but then shortly reintubated due to possible right lower lobe aspiration.Is now on 2 liters nasal canula and has left knee swelling ,erythema , cultures were growing MSSA , however on Clindamycin and irrigation and debridement of left patella on 03/07. She is noting having some diarrhea, with some left knee swelling persistent after debridement . Surgical roxanne are clean and left upper extremity swelling is noted . Crackles in the lungs and is tachycardic Assessment: 04/02:Patient is growing pseudomonas , ESBL klebsiella on sputum culture likely due to hospital acquired pneumonia. possible C diff colitis. As well as an MSSA left knee bursitis that has yet to be treated with appropriate antibiotics. Patient has peripheral arterial disease and right decay and uncontrolled diabetes 04/03: patient is doing better , diarrhea has significantly improved and tolerating antibiotics without any fevers or chills . Patient is a bit drowsy . Patient has some mild angioedema of the tongue . C diff testing is negative 04/04: Patient was seen by Dr Velasco and tolerating diet. Agree with Dr. Velasco findings . Not having any worsening diarrhea 04/05: having diarrhea with antibiotic therapy , most recent chest xray shows lung bases that are unremarkable. clinically stable and worsening confusion and immunity , possible aspiration 04/06: patient has ongoing diarrhea as potential source of worsening septic picture . Patient was found to be hypoxic and confused yesterday possible related to acute aspiration event and possible mucus plugging as patient also refused chest pt. 04/07: presser needs are coming down , suspect aspiration event 04/08: required blood transfusion for hemoglobin 6.9 , unclear if this is due to a real bleed and will continue to monitor for signs of bleeding . Chest xray shows cardiomegaly with mild signs of congestion . Head CT shows right posterior frontal periventricular white matter disease , likely subacute to few small old infacts bilateral basal gangular thats greater on the right side. Cultures are currently with moderate gram negative rods in the sputum and blood cultures are no growth to date 04/09: Culture continues to show moderate gram negative jw in the sputum , awaiting speciation . would be concerned [id number] is not being adequately treated for gram negative jw infection in the sputum previously . 04/10: having some diffuse wheezing in lungs likely contributing to acute hypoxia as well as the gram negative jw that is pending speciation 04/11: S/P trach and peg and tolerating feeds . growing mednia resistant and carbon resistant ESBL . Klebsiella pneumonia in the lungs 04/12: tolerating antibiotics and not needing nay presser support , no signs of ongoing sepsis . chest xray shows stable pneumonia 04/13: tolerating antibiotics 04/14:peg tube feeding has been stalled and awaiting feeds . trach setting are stable and tachycardia is stable 04/15: awaiting Ltach placement , vancomycin troth have been therapeutic , tolerating antibiotics 04/16: whitecount is 15.8 , chest xray shows bibasilar etolectisis or pneumonia . patient has a piccline in place Plan: - continue fetroja for 5-7 days - continue vancomycin for MSSA left knee cellulitis for a 3 week coarse - consider bronchoscopy and deeper sputum cultures and BAL culture if patient is to get a bronchoscopy to asses for airway clearance, defer to pulmonology on this - will fu on pending blood culture and urine culture and stool culture - Authorized and Performed by: Katerine Hughes Total critical care time: Approximately 56 minutes Due to a high probability of clinically significant, life threatening deterioration, the patient required my highest level of preparedness to intervene emergently and I personally spent this critical care time directly and personally managing the patient. This critical care time included obtaining a history; examining the patient; pulse oximetry; ordering and review of studies; arranging urgent treatment with development of a management plan; evaluation of patient's response to treatment; frequent reassessment; and, discussions with other providers. This critical care time was performed to assess and manage the high probability of imminent, life-threatening deterioration that could result in multi-organ failure. It was exclusive of separately billable procedures and treating other patients and teaching time. Plan discussed with: Other Dietary Evaluation Review Comments: 1) Esau 1 pk BID 2) Refer Trimmer Sawyer on DC 3) Continue current plan of care Expected Outcomes/Goals: Pt will meet >75% estimated needs Fu 3-5 days KATERINE HUGHES MD April 16, 2025 22:07
[2025-04-17] VITALS (106 sets, daily range): BP systolic 93–166; BP diastolic 44–97; PULSE 79–107; RESP 9–26; TEMP 97–98.7; O2SAT 10–100
[2025-04-17 05:53] LABS: Basophils # (auto) 0.1 10 ^3/uL (0-0.2); Basophils % (auto) 0.5 % (0.0-2.0); Eosinophils # (auto) 0.1 10 ^3/uL (0-0.8); Lymphocytes # (auto) 1.2 10 ^3/uL (0.4-5.4)
[2025-04-17 05:56] LABS: Eosinophils % (auto) 0.6 % (0.0-7.0); Hematocrit 24.6 % (36.0-46.0); Mean Corpuscular Hemoglobin 28.3 pg (28.0-32.0); Mean Corpuscular Hgb Conc. 32.7 g/dL (32.0-36.0); Mean Corpuscular Volume 86.7 fL (80.0-100.0); Monocytes # (auto) 0.5 10 ^3/uL (0-1.3); Monocytes % (auto) 3.5 % (0.0-12.0); Neutrophils # (auto) 13.4 10 ^3/uL (1.6-8.6); Neutrophils % (auto) 87.4 % (37.0-80.0); Platelet Count (auto) 301 10^3/uL (140-450); Red Blood Cells 2.84 10^6/uL (4.0-5.20); Red Cell Distribution Width 17.6 % (11.8-14.3); White Blood Cell 15.4 10^3/uL (4.4-10.8)
[2025-04-17 06:09] LABS: Anion Gap 13 (5-15); Aspartate Aminotransferase 19 U/L (13-40); BUN/Creatinine Ratio 21.3 (10.0-20.0); Glucose 79 mg/dL (74-106); Potassium 3.6 mmol/L (3.5-5.1); Sodium 141 mmol/L (136-145)
[2025-04-17 06:31] LABS: Alanine Aminotransferase < 9 U/L (7-40); Albumin 1.9 g/dL (3.2-4.8); Alkaline Phosphatase 199 U/L (46-116); Bilirubin, Total < 0.2 mg/dL (0.2-1.0); Blood Urea Nitrogen 27 mg/dL (9-23); Calcium 7.7 mg/dL (8.7-10.4); Carbon Dioxide 16 mmol/L (20-31); Chloride 112 mmol/L (98-107); Total Protein 4.3 g/dL (5.7-8.2)
--- NOTE | 2025-04-17 10:17 | DVHPN2 ---
Subjective Denies any symptoms Reviewed: Care Plan, H&P, Labs, Medications, Previous Orders, Radiology, Other (Consultations) Changes from previous H/P or p: No Changes General: Per HPI Objective Vitals Vital Signs Date Time Temp Pulse Resp B/P (MAP) Pulse Ox O2 Delivery O2 Flow Rate FiO2 04/17/25 09:43 86 25 131/77 (95) 99 30 04/17/25 08:00 Mechanical Ventilator+ 04/17/25 08:00 97.0 97.0 Intake/Output Intake and Output 04/17/25 07:00 Intake Total 1555.168 ml Output Total 1199 ml Balance 356.168 ml IV Total 895.168 ml Tube Feeding 540 ml Other 120 ml Output Urine Total 1199 ml Exam Assess patient will sitting in her wheelchair. General Appearance: Alert, Other (Patient currently on fentanyl drip. Opens eyes and follow some commands.) HEENT: Atraumatic, PERRLA Neck: Other (Tracheostomy) Lungs: Clear to auscultation, Normal air movement, Other Cardiovascular: Regular rate, Normal S1, Normal S2 Abdomen: Normal bowel sounds, Soft Genitourinary: No Apparent Abnormalities, Other Extremities: Other Neuro: Cranial nerves 3-12 NL, Other Skin: Dry, Intact, Wounds Psych/Mental Status: Other Medications Current Medications Medications Dose Ordered Sig/John Route Start Time Stop Time Status Last Admin Dose Admin Acetaminophen 650 mg Q6HP PRN PO 02/19/25 13:45 03/09/25 21:36 650 MG Diagnostic Test (Pha) 1 strip ACHS 02/19/25 17:00 04/17/25 06:43 1 STRIP Dextrose 50 ml UD PRN IV 02/19/25 15:45 04/11/25 21:04 50 ML Potassium Chloride 100 ml @ 50 mls/hr Q2H IV 02/19/25 23:15 02/20/25 05:14 Cancel Potassium Chloride 100 ml @ 50 mls/hr Q2H IV 02/20/25 07:15 02/20/25 11:14 UNV Calcium Acetate 1,334 mg TIDWMEALS PO 03/04/25 12:00 04/17/25 08:29 1,334 MG Ergocalciferol 50,000 unit Q7D PO 03/04/25 11:45 04/15/25 14:30 50,000 UNIT Zirconium Oxide 10 gm TID PO 03/07/25 14:00 Cancel Sodium Bicarbonate 50 ml/ Sodium Chloride 1,050 ml @ 100 mls/hr [id number] IV 03/07/25 11:45 Cancel Pantoprazole Sodium 40 mg BID IV 03/13/25 10:00 04/17/25 08:29 40 MG Albuterol 2.5 mg Q6HR NEB 03/13/25 12:00 04/17/25 06:15 2.5 MG Ipratropium [place] 0.5 mg Q6HR NEB 03/13/25 12:00 04/17/25 06:16 0.5 MG Saccharomyces Boulardii 250 mg DAILY PO 03/14/25 10:00 04/17/25 08:29 250 MG Atorvastatin Calcium 80 mg HS PO 03/24/25 22:00 04/16/25 21:31 80 MG Aspirin 81 mg DAILY NG 03/25/25 10:00 04/17/25 08:30 81 MG Insulin Human Regular ACHS SC 03/30/25 22:00 04/16/25 21:36 2 UNITS Ondansetron HCl 4 mg Q8HP PRN PO 04/05/25 15:30 Fentanyl Citrate 250 ml @ 2.5 mls/hr Q24H IV 04/06/25 11:00 04/17/25 05:50 5 MLS/HR Norepinephrine Bitartrate 250 ml @ 3.75 mls/hr Q24H IV 04/08/25 02:30 04/08/25 02:37 3.75 MLS/HR Propofol 100 ml @ 2.232 mls/ hr Q24H IV 04/08/25 16:45 04/16/25 08:52 4.464 MLS/HR Cefiderocol 1.5 gm/Sodium Chloride 100 ml @ 33.333 mls/ hr Q8H IV 04/11/25 13:00 04/17/25 05:50 33.333 MLS/HR Enteral Nutritional Formula 1,000 ml 30ML/HR GT 04/15/25 08:45 04/16/25 19:50 1,000 ML Vancomycin HCl 0 ml @ 0 mls/hr UD IV 04/15/25 22:00 Hydralazine HCl 10 mg Q4HPRN PRN IV 04/16/25 16:00 04/16/25 16:08 10 MG Sodium Chloride 10 ml QSHIFT@10,22 IV 04/16/25 22:00 04/17/25 08:30 10 ML Laboratory Results Laboratory Tests 04/17/25 05:00 Chemistry Test 04/17/25 05:00 Albumin 1.9 g/dL (3.2-4.8) L Calcium Level 7.7 mg/dL (8.7-10.4) L Total Protein 4.3 g/dL (5.7-8.2) L Coagulation Test 04/16/25 10:22 Prothrombin Time 13.0 sec (9.3-11.8) H Prothrombin Time INR 1.25 (0.9-1.15) H LFT Test 04/17/25 05:00 Alanine Aminotransferase (ALT) < 9 U/L (7-40) Alkaline Phosphatase 199 U/L (46-116) H Aspartate Amino Transferase (AST) 19 U/L (13-40) Total Bilirubin < 0.2 mg/dL (0.2-1.0) L Urinalysis Test 02/19/25 17:27 03/04/25 05:00 Urine Color Colorless (Yellow) Urine Clarity Clear (Clear) Urine pH 6.5 (5.0-9.0) Urine Specific [place] 1.008 (1.001-1.035) Urine Protein 2+ (Negative) H Urine Ketones 1+ (Negative) H Urine Blood 1+ /uL (Negative) H Urine Nitrite Negative (Negative) Urine Bilirubin Negative (Negative) Urine Urobilinogen Normal mg/dL (Negative) Urine Leukocyte Esterase Negative /uL (Negative) Urine RBC 6 /hpf (0 - 4) Urine Microscopic WBC 2 /HPF (0-5) Urine Squamous Epithelial Cells Few /hpf (<5) Urine Bacteria None seen /hpf (None Seen) Urine Glucose 2+ mg/dL (Normal) H Urine Creatinine 25.51 mg/dL (30.0-125.0) L Urine Protein/Creatinine Ratio 14.00 Urine Sodium 80 mmol/L (40-220) Urine Total Protein 357.1 mg/dL (1-14) H Microbiology Microbiology Date/Time Source Procedure Growth Status 04/06/25 20:35 Blood Blood Culture - Final NO GROWTH AFTER 5 DAYS OF INCUBATION. Complete 04/06/25 10:20 Sputum Gram Stain - Final Complete 04/06/25 10:20 Respiratory Culture - Final Klebsiella pneumoniae - ESBL Complete 04/02/25 13:00 Stool Clostridium difficile Toxin Assay - Final Complete 03/06/25 14:37 Knee Left Gram Stain - Final Complete 03/06/25 14:37 Knee Left Anaerobic Culture - Final Complete 03/06/25 14:37 Aerobic Culture - Final Staphylococcus aureus Complete 03/04/25 13:29 Aspirate Gram Stain - Final Complete 03/04/25 13:29 Body Fluid Culture - Final Staphylococcus aureus Complete 02/19/25 17:27 Urine - [place] Urine Culture - Final Complete Labs and/or images reviewed: Labs reviewed by me, Image(s) reviewed by me Assessment/Plan Assessment/Plan Impression: Multiple acute/subacute strokes Left lower extremity cellulitis Rule out left septic knee Hypokalemia Acute kidney injury likely hemodynamically mediated due to vasomotor nephropathy Chronic kidney disease Peripheral vascular disease status post right [id number] amputation 6 months ago Poorly controlled type 2 diabetes Sepsis Hypertension Mixed hyperlipidemia Polysubstance use disorder Diabetic neuropathy -? Suicidal ideation -septic bursitis with Staphylococcus aureus -septic shock Angioedema of the tongue -hyponatremia -patient with ESBL and CRE in the sputum -cardiac arrest Plan: -events: PICC line placed. Central line removed. [place] catheter exchange. -social service consultation: Continue with efforts to transfer to long-term acute care -continue antibiotics per ID -hold tube feedings -continue sedation for RASS negative three -hold anticoagulants -PUD prophylaxis -bronchodilators -continue PPI Repeat labs and chest x-ray in a.m. -pending transfer to LTAC Critical care time spent with patient discussing and formulating plan of care: 90 minutes. This does not include time spent performing procedures. This medical document was created using an electronic medical record system with [employer] dictation system. Although this document has been carefully reviewed, there may still be some phonetic and typographical errors. These areas are purely typographical due to imperfections of the software programs, and do not reflect any compromise in the patient's medical care. Plan discussed with: Patient, Other (RN) My Orders Orders - JUSTIN BONILLA HOUSEFELLOW Procedure Category Date Status Time Hydralazine Injection PHA 04/16/25 In Process (Apresoline Inject 16:00 Us Guided Vascular US 04/16/25 Taken Access 18:10 Nursing Protocol Picc HAYDER 04/16/25 In Process 18:10 Change Dressing Prn HAYDER 04/16/25 In Process 18:10 Sodium Chloride Lock PHA 04/16/25 In Process (Saline Lock Ns) 22:00 Do Not Use Picc For HAYDER 04/16/25 In Process Blood Cult 18:10 May Draw Blood From [facility] 04/16/25 In Process Picc 18:10 Ok To Use Picc HAYDER 04/16/25 In Process 18:10 Change Picc Dressing [facility] 04/16/25 In Process Q7 Days 18:10 Date of Service: April 17, 2025 Billing Provider: JUSTIN BONILLA NP Common Visit Codes: [id number] CARE 30-74 MIN JUSTIN BONILLA NP April 17, 2025 10:17
--- NOTE | 2025-04-17 11:57 | DVHPN2 ---
Progress Note - Dictate Date Seen: April 17, 2025 Medical Necessity Reason Pt with a Central, PICC or Fol: Yes The following are medically ne: Acosta Catheter Reason for acosta catheter: Strict I&O Subjective Patient was seen and evaluated in follow up in the ICU. Patient is intubated and sedated on ventilator. FiO2 remains at 30%. CM is working on LTAC transfer to [facility]. vital signs Vital Sign Date Time Temp Pulse Resp B/P (MAP) Pulse Ox O2 Delivery O2 Flow Rate FiO2 04/17/25 10:00 30 04/17/25 10:00 85 04/17/25 10:00 15 100 Mechanical Ventilator+ 04/17/25 09:43 131/77 (95) 04/17/25 08:00 97.0 97.0 Total Intake and Output 04/16/25 04/16/25 04/17/25 15:00 23:00 07:00 Intake Total 600.705 ml 456.463 ml 498.000 ml Output Total 599 ml 600 ml Balance 600.705 ml -142.537 ml -102.000 ml medications Current Medications Medications Dose Ordered Sig/John Route Start Time Stop Time Status Last Admin Dose Admin Acetaminophen 650 mg Q6HP PRN PO 02/19/25 13:45 03/09/25 21:36 650 MG Diagnostic Test (Pha) 1 strip ACHS 02/19/25 17:00 04/17/25 06:43 1 STRIP Dextrose 50 ml UD PRN IV 02/19/25 15:45 04/11/25 21:04 50 ML Potassium Chloride 100 ml @ 50 mls/hr Q2H IV 02/19/25 23:15 02/20/25 05:14 Cancel Potassium Chloride 100 ml @ 50 mls/hr Q2H IV 02/20/25 07:15 02/20/25 11:14 UNV Calcium Acetate 1,334 mg TIDWMEALS PO 03/04/25 12:00 04/17/25 08:29 1,334 MG Ergocalciferol 50,000 unit Q7D PO 03/04/25 11:45 04/15/25 14:30 50,000 UNIT Zirconium Oxide 10 gm TID PO 03/07/25 14:00 Cancel Sodium Bicarbonate 50 ml/ Sodium Chloride 1,050 ml @ 100 mls/hr [id number] IV 03/07/25 11:45 Cancel Pantoprazole Sodium 40 mg BID IV 03/13/25 10:00 04/17/25 08:29 40 MG Albuterol 2.5 mg Q6HR NEB 03/13/25 12:00 04/17/25 06:15 2.5 MG Ipratropium [place] 0.5 mg Q6HR NEB 03/13/25 12:00 04/17/25 06:16 0.5 MG Saccharomyces Boulardii 250 mg DAILY PO 03/14/25 10:00 04/17/25 08:29 250 MG Atorvastatin Calcium 80 mg HS PO 03/24/25 22:00 04/16/25 21:31 80 MG Aspirin 81 mg DAILY NG 03/25/25 10:00 04/17/25 08:30 81 MG Insulin Human Regular ACHS SC 03/30/25 22:00 04/16/25 21:36 2 UNITS Ondansetron HCl 4 mg Q8HP PRN PO 04/05/25 15:30 Fentanyl Citrate 250 ml @ 2.5 mls/hr Q24H IV 04/06/25 11:00 04/17/25 05:50 5 MLS/HR Norepinephrine Bitartrate 250 ml @ 3.75 mls/hr Q24H IV 04/08/25 02:30 04/08/25 02:37 3.75 MLS/HR Propofol 100 ml @ 2.232 mls/ hr Q24H IV 04/08/25 16:45 04/16/25 08:52 4.464 MLS/HR Cefiderocol 1.5 gm/Sodium Chloride 100 ml @ 33.333 mls/ hr Q8H IV 04/11/25 13:00 04/17/25 05:50 33.333 MLS/HR Enteral Nutritional Formula 1,000 ml 30ML/HR GT 04/15/25 08:45 04/16/25 19:50 1,000 ML Vancomycin HCl 0 ml @ 0 mls/hr UD IV 04/15/25 22:00 Hydralazine HCl 10 mg Q4HPRN PRN IV 04/16/25 16:00 04/16/25 16:08 10 MG Sodium Chloride 10 ml QSHIFT@10,22 IV 04/16/25 22:00 04/17/25 08:30 10 ML objective GENERAL: Ill appearing, intubated on ventilator. EYES: PERRL, EOMI. Anicteric. HENT: Moist mucous membranes. LUNGS: Decreased breath sounds. CARDIOVASCULAR: Regular rate and rhythm. ABDOMEN: Soft, non-tender and non-distended. EXTREMITIES: No edema. SKIN: Warm, dry. laboratory and microbiology Laboratory Tests 04/17/25 05:00 Test 04/17/25 05:00 Range/Units Serum Glucose 79 74-106 mg/dL Problem List Multiple acute/subacute strokes. Hypokalemia. Acute kidney injury. Hypertension, newly diagnosed. Insulin-dependent diabetes mellitus. Status post right BKA. Dyslipidemia. Polysubstance use disorder. Left lower extremity cellulitis. Peripheral vascular disease status post right [id number] amputation 6 months ago. Sepsis. Diabetic neuropathy. Assessment/Plan Continued all current supportive medical care. Aspirin, Lipitor. IV antibiotics as ordered. GI prophylactics. IV Hydralazine for SBP > 150. Vasopressors for hemodynamic support. Additional plan as per the hospital course. Critical care time of 45 minutes provided to include time spent evaluation of patient at bedside, when appropriate patient/family education for diagnosis, treatment plan, review of pertinent medical information and discussion of care with specialty providers and PCP. Mechanical ventilator parameters, treatment and adjustments have personally been reviewed by me and treatment plan by border measurer has also been reviewed. Dietary Evaluation Review Comments: 1) Esau 1 pk BID 2) Refer Wax Pattern Repairer on DC 3) Continue current plan of care Expected Outcomes/Goals: Pt will meet >75% estimated needs Fu 3-5 days Plan discussed with: Other YANIRA WINN MD April 17, 2025 11:37
--- NOTE | 2025-04-17 22:01 | DVHPN2 ---
Consult Progress Note Date Seen: April 17, 2025 Subjective Patient reports: Other (has a trach and peg , is on minimal vent and is mildly agitated and not responding to questions . appears to be in mild abdominal pain with a distended abdomen ) Objective vital signs Vital Sign Date Time Temp Pulse Resp B/P (MAP) Pulse Ox O2 Delivery O2 Flow Rate FiO2 04/17/25 20:28 93 18 130/74 (92) 99 30 04/17/25 18:00 Mechanical Ventilator+ 04/17/25 16:00 97.7 97.7 Total Intake and Output 04/16/25 04/16/25 04/17/25 15:00 23:00 07:00 Intake Total 600.705 ml 456.463 ml 498.000 ml Output Total 599 ml 600 ml Balance 600.705 ml -142.537 ml -102.000 ml medications Current Medications Medications Dose Ordered Sig/John Route Start Time Stop Time Status Last Admin Dose Admin Acetaminophen 650 mg Q6HP PRN PO 02/19/25 13:45 03/09/25 21:36 650 MG Diagnostic Test (Pha) 1 strip ACHS 02/19/25 17:00 04/17/25 17:00 1 STRIP Dextrose 50 ml UD PRN IV 02/19/25 15:45 04/11/25 21:04 50 ML Potassium Chloride 100 ml @ 50 mls/hr Q2H IV 02/19/25 23:15 02/20/25 05:14 Cancel Potassium Chloride 100 ml @ 50 mls/hr Q2H IV 02/20/25 07:15 02/20/25 11:14 UNV Calcium Acetate 1,334 mg TIDWMEALS PO 03/04/25 12:00 04/17/25 18:00 1,334 MG Ergocalciferol 50,000 unit Q7D PO 03/04/25 11:45 04/15/25 14:30 50,000 UNIT Zirconium Oxide 10 gm TID PO 03/07/25 14:00 Cancel Sodium Bicarbonate 50 ml/ Sodium Chloride 1,050 ml @ 100 mls/hr [id number] IV 03/07/25 11:45 Cancel Pantoprazole Sodium 40 mg BID IV 03/13/25 10:00 04/17/25 08:29 40 MG Albuterol 2.5 mg Q6HR NEB 03/13/25 12:00 04/17/25 18:29 2.5 MG Ipratropium [place] 0.5 mg Q6HR NEB 03/13/25 12:00 04/17/25 18:29 0.5 MG Saccharomyces Boulardii 250 mg DAILY PO 03/14/25 10:00 04/17/25 08:29 250 MG Atorvastatin Calcium 80 mg HS PO 03/24/25 22:00 04/16/25 21:31 80 MG Aspirin 81 mg DAILY NG 03/25/25 10:00 04/17/25 08:30 81 MG Insulin Human Regular ACHS SC 03/30/25 22:00 04/16/25 21:36 2 UNITS Ondansetron HCl 4 mg Q8HP PRN PO 04/05/25 15:30 Fentanyl Citrate 250 ml @ 2.5 mls/hr Q24H IV 04/06/25 11:00 04/17/25 05:50 5 MLS/HR Norepinephrine Bitartrate 250 ml @ 3.75 mls/hr Q24H IV 04/08/25 02:30 04/08/25 02:37 3.75 MLS/HR Propofol 100 ml @ 2.232 mls/ hr Q24H IV 04/08/25 16:45 04/16/25 08:52 4.464 MLS/HR Cefiderocol 1.5 gm/Sodium Chloride 100 ml @ 33.333 mls/ hr Q8H IV 04/11/25 13:00 04/17/25 12:49 33.333 MLS/HR Enteral Nutritional Formula 1,000 ml 30ML/HR GT 04/15/25 08:45 04/16/25 19:50 1,000 ML Vancomycin HCl 0 ml @ 0 mls/hr UD IV 04/15/25 22:00 Hydralazine HCl 10 mg Q4HPRN PRN IV 04/16/25 16:00 04/16/25 16:08 10 MG Sodium Chloride 10 ml QSHIFT@, IV 04/16/25 22:00 04/17/25 08:30 10 ML laboratory and microbiology Laboratory Tests 04/17/25 05:00 Test 04/17/25 05:00 Range/Units Serum Glucose 79 74-106 mg/dL Problem List/Assessment/Plan Problems(with codes): (1) Intractable vomiting (2) Acute abdominal pain (3) Uncontrolled diabetes mellitus (4) UTI (urinary tract infection) (5) Sepsis (6) TATIANNA (acute kidney injury) (7) Substance abuse (8) Intractable abdominal pain Problem List/Assessment/Plan Pneumonia ESBL Klebsiella, Carbapenemic resistant Pseudomonas positive sputum culture , possible due to ventilator associated pneumonia Sepsis probably due to above Left patellar bursitis, I&D w bursectomy performed on 03/07/25 Left knee culture growing MSSA Left foot ulcer, dorsal aspect Multiple acute-subacute strokes Ruled out C diff colitis Hypokalemia TATIANNA on CKD Peripheral arterial disease s/p R BKA 6 months ago Type 2 diabetes, uncontrolled Diabetic neuropathy Angioedema of the tongue Patient is a 64 year old female with a past medical history of diabetes, left foot ulcer , hypertension , hyperlipidemia , anxiety , peripheral arterial disease , depression , presents with left sided weakness and mild dysarthria . Had a brain MRI revealing multiple small falsi of acute to subacute infarcts in the right coronary radiata and right basal ganglia. Underwent MAGALIS which showed no masses or vegetation . Bubble study was negative , valve restriction is normal . Patient was intubated on 03/13 and a rapid was called . Intubated due to airway protection and excavated on 03/26. but then shortly reintubated due to possible right lower lobe aspiration.Is now on 2 liters nasal canula and has left knee swelling ,erythema , cultures were growing MSSA , however on Clindamycin and irrigation and debridement of left patella on 03/07. She is noting having some diarrhea, with some left knee swelling persistent after debridement . Surgical roxanne are clean and left upper extremity swelling is noted . Crackles in the lungs and is tachycardic Assessment: 04/02:Patient is growing pseudomonas , ESBL klebsiella on sputum culture likely due to hospital acquired pneumonia. possible C diff colitis. As well as an MSSA left knee bursitis that has yet to be treated with appropriate antibiotics. Patient has peripheral arterial disease and right decay and uncontrolled diabetes 04/03: patient is doing better , diarrhea has significantly improved and tolerating antibiotics without any fevers or chills . Patient is a bit drowsy . Patient has some mild angioedema of the tongue . C diff testing is negative 04/04: Patient was seen by Dr Velasco and tolerating diet. Agree with Dr. Velasco findings . Not having any worsening diarrhea 04/05: having diarrhea with antibiotic therapy , most recent chest xray shows lung bases that are unremarkable. clinically stable and worsening confusion and immunity , possible aspiration 04/06: patient has ongoing diarrhea as potential source of worsening septic picture . Patient was found to be hypoxic and confused yesterday possible related to acute aspiration event and possible mucus plugging as patient also refused chest pt. 04/07: presser needs are coming down , suspect aspiration event 04/08: required blood transfusion for hemoglobin 6.9 , unclear if this is due to a real bleed and will continue to monitor for signs of bleeding . Chest xray shows cardiomegaly with mild signs of congestion . Head CT shows right posterior frontal periventricular white matter disease , likely subacute to few small old infacts bilateral basal gangular thats greater on the right side. Cultures are currently with moderate gram negative rods in the sputum and blood cultures are no growth to date 04/09: Culture continues to show moderate gram negative jw in the sputum , awaiting speciation . would be concerned [id number] is not being adequately treated for gram negative jw infection in the sputum previously . 04/10: having some diffuse wheezing in lungs likely contributing to acute hypoxia as well as the gram negative jw that is pending speciation 04/11: S/P trach and peg and tolerating feeds . growing medina resistant and carbon resistant ESBL . Klebsiella pneumonia in the lungs 04/12: tolerating antibiotics and not needing nay presser support , no signs of ongoing sepsis . chest xray shows stable pneumonia 04/13: tolerating antibiotics 04/14:peg tube feeding has been stalled and awaiting feeds . trach setting are stable and tachycardia is stable 04/15: awaiting Ltach placement , vancomycin troth have been therapeutic , tolerating antibiotics 04/16: whitecount is 15.8 , chest xray shows bibasilar etolectisis or pneumonia . patient has a piccline in place 04/17: s/p peg placement Plan: - defer to general surgery for management of abdominal distension and post surgical care - continue fetroja for 5-7 days - continue vancomycin for MSSA left knee cellulitis for a 3 week coarse - consider bronchoscopy and deeper sputum cultures and BAL culture if patient is to get a bronchoscopy to asses for airway clearance, defer to pulmonology on this - will fu on pending blood culture and urine culture and stool culture - Authorized and Performed by: Katerine Hughes Total critical care time: Approximately 56 minutes Due to a high probability of clinically significant, life threatening deterioration, the patient required my highest level of preparedness to intervene emergently and I personally spent this critical care time directly and personally managing the patient. This critical care time included obtaining a history; examining the patient; pulse oximetry; ordering and review of studies; arranging urgent treatment with development of a management plan; evaluation of patient's response to treatment; frequent reassessment; and, discussions with other providers. This critical care time was performed to assess and manage the high probability of imminent, life-threatening deterioration that could result in multi-organ failure. It was exclusive of separately billable procedures and treating other patients and teaching time. Plan discussed with: Other Dietary Evaluation Review Comments: 1) Esau 1 pk BID 2) Refer Straw Hat Washer Operator on DC 3) Continue current plan of care Expected Outcomes/Goals: Pt will meet >75% estimated needs Fu 3-5 days KATERINE HUGHES MD April 17, 2025 22:01
--- NOTE | 2025-04-17 22:06 | DVHPN2 ---
Progress Note - Dictate Date Seen: April 17, 2025 Medical Necessity Reason Pt with a Central, PICC or Fol: Yes The following are medically ne: Acosta Catheter Reason for acosta catheter: Strict I&O vital signs Vital Sign Date Time Temp Pulse Resp B/P (MAP) Pulse Ox O2 Delivery O2 Flow Rate FiO2 04/17/25 20:28 93 18 130/74 (92) 99 30 04/17/25 18:00 Mechanical Ventilator+ 04/17/25 16:00 97.7 97.7 Total Intake and Output 04/16/25 04/16/25 04/17/25 15:00 23:00 07:00 Intake Total 600.705 ml 456.463 ml 498.000 ml Output Total 599 ml 600 ml Balance 600.705 ml -142.537 ml -102.000 ml medications Current Medications Medications Dose Ordered Sig/John Route Start Time Stop Time Status Last Admin Dose Admin Acetaminophen 650 mg Q6HP PRN PO 02/19/25 13:45 03/09/25 21:36 650 MG Diagnostic Test (Pha) 1 strip ACHS 02/19/25 17:00 04/17/25 17:00 1 STRIP Dextrose 50 ml UD PRN IV 02/19/25 15:45 04/11/25 21:04 50 ML Potassium Chloride 100 ml @ 50 mls/hr Q2H IV 02/19/25 23:15 02/20/25 05:14 Cancel Potassium Chloride 100 ml @ 50 mls/hr Q2H IV 02/20/25 07:15 02/20/25 11:14 UNV Calcium Acetate 1,334 mg TIDWMEALS PO 03/04/25 12:00 04/17/25 18:00 1,334 MG Ergocalciferol 50,000 unit Q7D PO 03/04/25 11:45 04/15/25 14:30 50,000 UNIT Zirconium Oxide 10 gm TID PO 03/07/25 14:00 Cancel Sodium Bicarbonate 50 ml/ Sodium Chloride 1,050 ml @ 100 mls/hr [id number] IV 03/07/25 11:45 Cancel Pantoprazole Sodium 40 mg BID IV 03/13/25 10:00 04/17/25 08:29 40 MG Albuterol 2.5 mg Q6HR NEB 03/13/25 12:00 04/17/25 18:29 2.5 MG Ipratropium [place] 0.5 mg Q6HR NEB 03/13/25 12:00 04/17/25 18:29 0.5 MG Saccharomyces Boulardii 250 mg DAILY PO 03/14/25 10:00 04/17/25 08:29 250 MG Atorvastatin Calcium 80 mg HS PO 03/24/25 22:00 04/16/25 21:31 80 MG Aspirin 81 mg DAILY NG 03/25/25 10:00 04/17/25 08:30 81 MG Insulin Human Regular ACHS SC 03/30/25 22:00 04/16/25 21:36 2 UNITS Ondansetron HCl 4 mg Q8HP PRN PO 04/05/25 15:30 Fentanyl Citrate 250 ml @ 2.5 mls/hr Q24H IV 04/06/25 11:00 04/17/25 05:50 5 MLS/HR Norepinephrine Bitartrate 250 ml @ 3.75 mls/hr Q24H IV 04/08/25 02:30 04/08/25 02:37 3.75 MLS/HR Propofol 100 ml @ 2.232 mls/ hr Q24H IV 04/08/25 16:45 04/16/25 08:52 4.464 MLS/HR Cefiderocol 1.5 gm/Sodium Chloride 100 ml @ 33.333 mls/ hr Q8H IV 04/11/25 13:00 04/17/25 12:49 33.333 MLS/HR Enteral Nutritional Formula 1,000 ml 30ML/HR GT 04/15/25 08:45 04/16/25 19:50 1,000 ML Vancomycin HCl 0 ml @ 0 mls/hr UD IV 04/15/25 22:00 Hydralazine HCl 10 mg Q4HPRN PRN IV 04/16/25 16:00 04/16/25 16:08 10 MG Sodium Chloride 10 ml QSHIFT@10,22 IV 04/16/25 22:00 04/17/25 08:30 10 ML laboratory and microbiology Laboratory Tests 04/17/25 05:00 Test 04/17/25 05:00 Range/Units Serum Glucose 79 74-106 mg/dL Assessment/Plan Impression Acute hypoxemic respiratory failure Altered mental status Hx of CVA Sepsis Patient seen and examined in ICU Events On mechanical ventilation S/p tracheostomy PEEP 5, FiO2 30% Labs and imaging reviewed ABG reviewed Management Vent support as needed Titrate to maintain sats 90% or above Trach care per RT protocol Trach collar trials daily Continue antibiotics F/u cultures Bronchodilators Monitor renal function Monitor electrolytes Supplement as needed DVT prophylaxis Critical care time 35 minutes Dietary Evaluation Review Comments: 1) [place] 1 pk BID 2) Refer Air Tool Operator on DC 3) Continue current plan of care Expected Outcomes/Goals: Pt will meet >75% estimated needs Fu 3-5 days Plan discussed with: Patient ARUNA BRISENO MD April 17, 2025 22:06
[2025-04-18] VITALS (100 sets, daily range): BP systolic 96–182; BP diastolic 29–100; PULSE 70–84; RESP 9–24; TEMP 94.3–98.6; O2SAT 86–100
[2025-04-18 05:50] LABS: Hemoglobin 7.1 g/dL (12.2-16.2); Lymphocytes # (auto) 1.2 10 ^3/uL (0.4-5.4); Monocytes # (auto) 0.4 10 ^3/uL (0-1.3); Neutrophils # (auto) 9.9 10 ^3/uL (1.6-8.6); Red Cell Distribution Width 17.1 % (11.8-14.3)
[2025-04-18 05:52] LABS: Basophils # (auto) 0 10 ^3/uL (0-0.2); Basophils % (auto) 0.3 % (0.0-2.0); Eosinophils # (auto) 0 10 ^3/uL (0-0.8); Eosinophils % (auto) 0.4 % (0.0-7.0); Hematocrit 21.6 % (36.0-46.0); Lymphocytes % (auto) 10.7 % (10.0-50.0); Mean Corpuscular Hemoglobin 28.5 pg (28.0-32.0); Mean Corpuscular Hgb Conc. 32.7 g/dL (32.0-36.0); Mean Corpuscular Volume 87.3 fL (80.0-100.0); Neutrophils % (auto) 85.6 % (37.0-80.0); Platelet Count (auto) 260 10^3/uL (140-450); Red Blood Cells 2.47 10^6/uL (4.0-5.20); White Blood Cell 11.6 10^3/uL (4.4-10.8)
[2025-04-18 06:10] LABS: Anion Gap 11 (5-15); Aspartate Aminotransferase 35 U/L (13-40); Sodium 141 mmol/L (136-145)
--- NOTE | 2025-04-18 06:11 | DVH ---
CHEST RADIOGRAPH Indication: INTUBATED Technique: Single frontal view of the chest was obtained Comparison: XY CHEST PORTABLE on DOS: 04/15/25 FINDINGS: Lines and Tubes: Tracheostomy tube is unchanged. Right PICC terminates in the superior vena cava. L eft central venous catheter has been removed. Lungs: Bibasilar opacities similar to prior study. Pleura: No effusion. No pneumothorax. Cardiomediastinal contours: Unremarkable Bones: No acute osseous abnormality. Other: Large volume pneumoperitoneum. IMPRESSION: 1. Bibasilar opacities similar to prior study. 2. Large volume pneumoperitoneum. 3. Removal of the left central venous catheter.
[2025-04-18 06:21] LABS: Alanine Aminotransferase 9 U/L (7-40); Albumin 2.2 g/dL (3.2-4.8); Alkaline Phosphatase 219 U/L (46-116); Bilirubin, Total < 0.2 mg/dL (0.2-1.0); Blood Urea Nitrogen 25 mg/dL (9-23); Calcium 7.9 mg/dL (8.7-10.4); Carbon Dioxide 16 mmol/L (20-31); Chloride 114 mmol/L (98-107); Glucose 147 mg/dL (74-106); Potassium 2.8 mmol/L (3.5-5.1); Total Protein 4.8 g/dL (5.7-8.2)
--- NOTE | 2025-04-18 08:08 | DVH ---
Exam: US US GUIDED VASCULAR ACCESS Date: 04/16/2025 04:57 PM Clinical History: PICC Placement Comparison: None Findings: Targeted sonographic evaluation of the basilic vein was obtained utilizing grayscale and color Dopple r imaging. IMPRESSION: Sonographic assistance for central line placement. Please refer to procedural report for detailed fin dings.
--- NOTE | 2025-04-18 08:15 | DVHPN2 ---
Subjective Denies any symptoms Reviewed: Care Plan, H&P, Labs, Medications, Previous Orders, Radiology, Other (Consultations) Changes from previous H/P or p: No Changes General: Per HPI Objective Vitals Vital Signs Date Time Temp Pulse Resp B/P (MAP) Pulse Ox O2 Delivery O2 Flow Rate FiO2 04/18/25 07:45 82 11 159/95 (116) 100 04/18/25 07:40 30 04/18/25 06:00 Mechanical Ventilator+ 04/18/25 04:00 98.1 98.1 Intake/Output Intake and Output 04/18/25 07:00 Intake Total 1341.636 ml Output Total 1600 ml Balance -258.364 ml Intake Oral 195 ml IV Total 594.636 ml Tube Feeding 552 ml Output Urine Total 700 ml Stool Total 0 ml Urine/Stool Mix 900 ml Exam Assess patient will sitting in her wheelchair. General Appearance: Alert, Other (Facial grimacing noted) HEENT: Atraumatic, PERRLA Neck: Other (Tracheostomy) Lungs: Clear to auscultation, Normal air movement, Other Cardiovascular: Regular rate, Normal S1, Normal S2 Abdomen: Normal bowel sounds, Soft Genitourinary: No Apparent Abnormalities, Other Extremities: Other Neuro: Cranial nerves 3-12 NL, Other Skin: Dry, Intact, Wounds Psych/Mental Status: Other Medications Current Medications Medications Dose Ordered Sig/John Route Start Time Stop Time Status Last Admin Dose Admin Acetaminophen 650 mg Q6HP PRN PO 02/19/25 13:45 03/09/25 21:36 650 MG Diagnostic Test (Pha) 1 strip ACHS 02/19/25 17:00 04/18/25 05:46 1 STRIP Dextrose 50 ml UD PRN IV 02/19/25 15:45 04/11/25 21:04 50 ML Potassium Chloride 100 ml @ 50 mls/hr Q2H IV 02/19/25 23:15 02/20/25 05:14 Cancel Potassium Chloride 100 ml @ 50 mls/hr Q2H IV 02/20/25 07:15 02/20/25 11:14 UNV Calcium Acetate 1,334 mg TIDWMEALS PO 03/04/25 12:00 04/17/25 18:00 1,334 MG Ergocalciferol 50,000 unit Q7D PO 03/04/25 11:45 04/15/25 14:30 50,000 UNIT Zirconium Oxide 10 gm TID PO 03/07/25 14:00 Cancel Sodium Bicarbonate 50 ml/ Sodium Chloride 1,050 ml @ 100 mls/hr [id number] IV 03/07/25 11:45 Cancel Pantoprazole Sodium 40 mg BID IV 03/13/25 10:00 04/17/25 22:03 40 MG Albuterol 2.5 mg Q6HR NEB 03/13/25 12:00 04/18/25 06:23 2.5 MG Ipratropium [place] 0.5 mg Q6HR NEB 03/13/25 12:00 04/18/25 06:23 0.5 MG Saccharomyces Boulardii 250 mg DAILY PO 03/14/25 10:00 04/17/25 08:29 250 MG Atorvastatin Calcium 80 mg HS PO 03/24/25 22:00 04/17/25 22:03 80 MG Aspirin 81 mg DAILY NG 03/25/25 10:00 04/17/25 08:30 81 MG Insulin Human Regular ACHS SC 03/30/25 22:00 04/17/25 22:08 2 UNITS Ondansetron HCl 4 mg Q8HP PRN PO 04/05/25 15:30 Fentanyl Citrate 250 ml @ 2.5 mls/hr Q24H IV 04/06/25 11:00 04/17/25 05:50 5 MLS/HR Norepinephrine Bitartrate 250 ml @ 3.75 mls/hr Q24H IV 04/08/25 02:30 04/08/25 02:37 3.75 MLS/HR Propofol 100 ml @ 2.232 mls/ hr Q24H IV 04/08/25 16:45 04/18/25 03:32 11.16 MLS/HR Cefiderocol 1.5 gm/Sodium Chloride 100 ml @ 33.333 mls/ hr Q8H IV 04/11/25 13:00 04/18/25 05:46 33.333 MLS/HR Enteral Nutritional Formula 1,000 ml 30ML/HR GT 04/15/25 08:45 04/16/25 19:50 1,000 ML Vancomycin HCl 0 ml @ 0 mls/hr UD IV 04/15/25 22:00 Hydralazine HCl 10 mg Q4HPRN PRN IV 04/16/25 16:00 04/18/25 06:11 10 MG Sodium Chloride 10 ml QSHIFT@10,22 IV 04/16/25 22:00 04/17/25 22:03 10 ML Potassium Chloride 100 ml @ 50 mls/hr Q2H IV 04/18/25 07:30 04/18/25 13:29 Laboratory Results Laboratory Tests 04/18/25 05:30 Chemistry Test 04/18/25 05:30 Albumin 2.2 g/dL (3.2-4.8) L Calcium Level 7.9 mg/dL (8.7-10.4) L Magnesium Level 1.8 mg/dL (1.6-2.6) Total Protein 4.8 g/dL (5.7-8.2) L LFT Test 04/18/25 05:30 Alanine Aminotransferase (ALT) 9 U/L (7-40) Alkaline Phosphatase 219 U/L (46-116) H Aspartate Amino Transferase (AST) 35 U/L (13-40) Total Bilirubin < 0.2 mg/dL (0.2-1.0) L Urinalysis Test 02/19/25 17:27 03/04/25 05:00 Urine Color Colorless (Yellow) Urine Clarity Clear (Clear) Urine pH 6.5 (5.0-9.0) Urine Specific [place] 1.008 (1.001-1.035) Urine Protein 2+ (Negative) H Urine Ketones 1+ (Negative) H Urine Blood 1+ /uL (Negative) H Urine Nitrite Negative (Negative) Urine Bilirubin Negative (Negative) Urine Urobilinogen Normal mg/dL (Negative) Urine Leukocyte Esterase Negative /uL (Negative) Urine RBC 6 /hpf (0 - 4) Urine Microscopic WBC 2 /HPF (0-5) Urine Squamous Epithelial Cells Few /hpf (<5) Urine Bacteria None seen /hpf (None Seen) Urine Glucose 2+ mg/dL (Normal) H Urine Creatinine 25.51 mg/dL (30.0-125.0) L Urine Protein/Creatinine Ratio 14.00 Urine Sodium 80 mmol/L (40-220) Urine Total Protein 357.1 mg/dL (1-14) H Microbiology Microbiology Date/Time Source Procedure Growth Status 04/06/25 20:35 Blood Blood Culture - Final NO GROWTH AFTER 5 DAYS OF INCUBATION. Complete 04/06/25 10:20 Sputum Gram Stain - Final Complete 04/06/25 10:20 Respiratory Culture - Final Klebsiella pneumoniae - ESBL Complete 04/02/25 13:00 Stool Clostridium difficile Toxin Assay - Final Complete 03/06/25 14:37 Knee Left Gram Stain - Final Complete 03/06/25 14:37 Knee Left Anaerobic Culture - Final Complete 03/06/25 14:37 Aerobic Culture - Final Staphylococcus aureus Complete 03/04/25 13:29 Aspirate Gram Stain - Final Complete 03/04/25 13:29 Body Fluid Culture - Final Staphylococcus aureus Complete 02/19/25 17:27 Urine - [place] Urine Culture - Final Complete Labs and/or images reviewed: Labs reviewed by me, Image(s) reviewed by me Assessment/Plan Assessment/Plan Impression: Multiple acute/subacute strokes Left lower extremity cellulitis Rule out left septic knee Hypokalemia Acute kidney injury likely hemodynamically mediated due to vasomotor nephropathy Chronic kidney disease Peripheral vascular disease status post right [id number] amputation 6 months ago Poorly controlled type 2 diabetes Sepsis Hypertension Mixed hyperlipidemia Polysubstance use disorder Diabetic neuropathy -? Suicidal ideation -septic bursitis with Staphylococcus aureus -septic shock Angioedema of the tongue -hyponatremia -patient with ESBL and CRE in the sputum -cardiac arrest Plan: -events: Chest x-ray today reveals pneumoperitoneum. Stat CT of the abdomen and pelvis ordered. Increase fentanyl drip for comfort -social service consultation: Continue with efforts to transfer to long-term acute care -continue antibiotics per ID -hold tube feedings -continue sedation for RASS negative three -hold anticoagulants -PUD prophylaxis -bronchodilators -continue PPI Repeat labs and chest x-ray in a.m. -pending transfer to LTAC Critical care time spent with patient discussing and formulating plan of care: 90 minutes. This does not include time spent performing procedures. This medical document was created using an electronic medical record system with [employer] dictation system. Although this document has been carefully reviewed, there may still be some phonetic and typographical errors. These areas are purely typographical due to imperfections of the software programs, and do not reflect any compromise in the patient's medical care. Plan discussed with: Patient, Other (RN) My Orders Orders - JUSTIN BONILLA AERONAUTICAL ENGINEERING PROFESSOR Procedure Category Date Status Time Potassium Chl PHA 04/18/25 In Process 20meq/100ml 07:30 Ct Ab Pel Wo Con-No CT 04/18/25 Logged Oral Or Iv 07:44 Date of Service: April 18, 2025 Billing Provider: JUSTIN BONILLA NP Common Visit Codes: [id number] CARE 30-74 MIN JUSTIN BONILLA NP April 18, 2025 08:15
[2025-04-18] MEDS: POTASSIUM CHL 20MEQ/100ML 100 ML IV SCH (09:03)
--- NOTE | 2025-04-18 09:29 | DVH ---
CLINICAL INFORMATION: Pneumoperitoneum. TECHNIQUE: Axial CT images of the abdomen and pelvis were obtained without IV contrast. Coronal and s agittal reformatted images were obtained, reviewed, and stored. Evaluation of the parenchymal organs is limited without IV contrast. Evaluation of the bowel and mesentery is limited without oral contras t. All CT scans at this medical facility are performed using dose modulation techniques as appropriat e to a performed exam including the following: Automated exposure control was utilized; adjustment of the MA and/or KV according to patient size; and use of iterative reconstruction technique. CTDIvol = 20.32 mGy DLP = 1117.97 mGy-cm COMPARISON: Correlation made to radiographs from earlier the same day. FINDINGS: Small bilateral pleural effusions with overlying atelectasis and consolidation. Respiratory motion a rtifact limits evaluation of the lung bases. Examination is limited due to motion artifact and beam h ardening artifact from the patient being scanned with arms at sides. There is a large volume pneumope ritoneum in the anterior abdomen. There is a percutaneous gastrostomy tube extending through the left upper ventral abdominal wall into the body of the stomach. No definite bowel perforation is visualiz ed. No small bowel obstruction. There is a moderate to large amount of stool throughout the colon. S cattered colonic diverticula without adjacent inflammatory changes to suggest diverticulitis. Dense a rterial calcification. [place] catheter extends into the bladder. There is tubing extending into the re ctum. The liver, spleen, adrenal glands, and kidneys appear grossly unremarkable. Layering density in the gallbladder, possible sludge. Pancreas is poorly visualized. Diffuse body wall edema / anasarca. No acute osseous abnormality identified. IMPRESSION: 1. Large volume pneumoperitoneum, as seen on same day chest radiograph. The etiology of the pneumoper itoneum is uncertain, possibly associated with the percutaneous gastrostomy tube, or due to perforat ed viscus, although no definite perforated viscus visualized on this exam. 2. Additional findings as described above.
--- NOTE | 2025-04-18 11:15 | DVHPN2 ---
Progress Note Date Seen: April 18, 2025 Medical Necessity Reason Pt with a Central, PICC or Fol: Yes The following are medically ne: Acosta Catheter Reason for acosta catheter: Strict I&O Objective vital signs Vital Sign Date Time Temp Pulse Resp B/P (MAP) Pulse Ox O2 Delivery O2 Flow Rate FiO2 04/18/25 10:27 72 18 115/33 (60) 98 30 04/18/25 08:00 Mechanical Ventilator+ 04/18/25 04:00 98.1 98.1 Total Intake and Output 04/17/25 04/17/25 04/18/25 14:59 22:59 06:59 Intake Total 278.331 ml 558.666 ml 542.972 ml Output Total 700 ml 900 ml Balance 278.331 ml -141.334 ml -357.028 ml medications Current Medications Medications Dose Ordered Sig/John Route Start Time Stop Time Status Last Admin Dose Admin Acetaminophen 650 mg Q6HP PRN PO 02/19/25 13:45 03/09/25 21:36 650 MG Diagnostic Test (Pha) 1 strip ACHS 02/19/25 17:00 04/18/25 05:46 1 STRIP Dextrose 50 ml UD PRN IV 02/19/25 15:45 04/11/25 21:04 50 ML Potassium Chloride 100 ml @ 50 mls/hr Q2H IV 02/19/25 23:15 02/20/25 05:14 Cancel Potassium Chloride 100 ml @ 50 mls/hr Q2H IV 02/20/25 07:15 02/20/25 11:14 UNV Calcium Acetate 1,334 mg TIDWMEALS PO 03/04/25 12:00 04/17/25 18:00 1,334 MG Ergocalciferol 50,000 unit Q7D PO 03/04/25 11:45 04/15/25 14:30 50,000 UNIT Zirconium Oxide 10 gm TID PO 03/07/25 14:00 Cancel Sodium Bicarbonate 50 ml/ Sodium Chloride 1,050 ml @ 100 mls/hr [id number] IV 03/07/25 11:45 Cancel Pantoprazole Sodium 40 mg BID IV 03/13/25 10:00 04/18/25 09:04 40 MG Albuterol 2.5 mg Q6HR NEB 03/13/25 12:00 04/18/25 06:23 2.5 MG Ipratropium [place] 0.5 mg Q6HR NEB 03/13/25 12:00 04/18/25 06:23 0.5 MG Saccharomyces Boulardii 250 mg DAILY PO 03/14/25 10:00 04/17/25 08:29 250 MG Atorvastatin Calcium 80 mg HS PO 03/24/25 22:00 04/17/25 22:03 80 MG Aspirin 81 mg DAILY NG 03/25/25 10:00 04/17/25 08:30 81 MG Insulin Human Regular ACHS SC 03/30/25 22:00 04/17/25 22:08 2 UNITS Ondansetron HCl 4 mg Q8HP PRN PO 04/05/25 15:30 Fentanyl Citrate 250 ml @ 2.5 mls/hr Q24H IV 04/06/25 11:00 04/17/25 05:50 5 MLS/HR Norepinephrine Bitartrate 250 ml @ 3.75 mls/hr Q24H IV 04/08/25 02:30 04/08/25 02:37 3.75 MLS/HR Propofol 100 ml @ 2.232 mls/ hr Q24H IV 04/08/25 16:45 04/18/25 10:40 20.088 MLS/HR Cefiderocol 1.5 gm/Sodium Chloride 100 ml @ 33.333 mls/ hr Q8H IV 04/11/25 13:00 04/18/25 05:46 33.333 MLS/HR Enteral Nutritional Formula 1,000 ml 30ML/HR GT 04/15/25 08:45 04/16/25 19:50 1,000 ML Vancomycin HCl 0 ml @ 0 mls/hr UD IV 04/15/25 22:00 Hydralazine HCl 10 mg Q4HPRN PRN IV 04/16/25 16:00 04/18/25 06:11 10 MG Sodium Chloride 10 ml QSHIFT@10,22 IV 04/16/25 22:00 04/18/25 09:04 10 ML Potassium Chloride 100 ml @ 50 mls/hr Q2H IV 04/18/25 07:30 04/18/25 13:29 04/18/25 10:40 50 MLS/HR laboratory and microbiology Laboratory Tests 04/18/25 05:30 Test 04/18/25 05:30 Range/Units Serum Glucose 147 H 74-106 mg/dL Problem List/Assessment/Plan Problem List/Assessment/Plan 04/18/25 tracheostomy, gastrostomy, pt sedated on ventilator, large pneumoperitoneum on X ray. abdomen non distended, , soft.:R/O leak vs. tube displacement. will follow Plan discussed with: Other Dietary Evaluation Review Comments: 1) Esau 1 pk BID 2) Refer Block Mason on DC 3) Continue current plan of care Expected Outcomes/Goals: Pt will meet >75% estimated needs Fu 3-5 days BONNIE ANDERSON MD April 18, 2025 11:15
[2025-04-18] MEDS: GASTROGRAFIN 120 ML SOL ONE (14:20)
--- NOTE | 2025-04-18 15:23 | DVHPN2 ---
Progress Note - Dictate Date Seen: April 18, 2025 Medical Necessity Reason Pt with a Central, PICC or Fol: Yes The following are medically ne: Acosta Catheter Reason for acosta catheter: Strict I&O vital signs Vital Sign Date Time Temp Pulse Resp B/P (MAP) Pulse Ox O2 Delivery O2 Flow Rate FiO2 04/18/25 14:30 83 18 112/60 (77) 97 04/18/25 14:10 30 04/18/25 14:00 Mechanical Ventilator+ 04/18/25 12:00 96.6 96.6 Total Intake and Output 04/17/25 04/17/25 04/18/25 15:00 23:00 07:00 Intake Total 278.331 ml 561.166 ml 568.060 ml Output Total 700 ml 900 ml Balance 278.331 ml -138.834 ml -331.940 ml medications Current Medications Medications Dose Ordered Sig/John Route Start Time Stop Time Status Last Admin Dose Admin Acetaminophen 650 mg Q6HP PRN PO 02/19/25 13:45 03/09/25 21:36 650 MG Diagnostic Test (Pha) 1 strip ACHS 02/19/25 17:00 04/18/25 11:47 1 STRIP Dextrose 50 ml UD PRN IV 02/19/25 15:45 04/11/25 21:04 50 ML Potassium Chloride 100 ml @ 50 mls/hr Q2H IV 02/19/25 23:15 02/20/25 05:14 Cancel Potassium Chloride 100 ml @ 50 mls/hr Q2H IV 02/20/25 07:15 02/20/25 11:14 UNV Calcium Acetate 1,334 mg TIDWMEALS PO 03/04/25 12:00 04/17/25 18:00 1,334 MG Ergocalciferol 50,000 unit Q7D PO 03/04/25 11:45 04/15/25 14:30 50,000 UNIT Zirconium Oxide 10 gm TID PO 03/07/25 14:00 Cancel Sodium Bicarbonate 50 ml/ Sodium Chloride 1,050 ml @ 100 mls/hr [id number] IV 03/07/25 11:45 Cancel Pantoprazole Sodium 40 mg BID IV 03/13/25 10:00 04/18/25 09:04 40 MG Albuterol 2.5 mg Q6HR NEB 03/13/25 12:00 04/18/25 12:13 2.5 MG Ipratropium [place] 0.5 mg Q6HR NEB 03/13/25 12:00 04/18/25 12:13 0.5 MG Saccharomyces Boulardii 250 mg DAILY PO 03/14/25 10:00 04/17/25 08:29 250 MG Atorvastatin Calcium 80 mg HS PO 03/24/25 22:00 04/17/25 22:03 80 MG Aspirin 81 mg DAILY NG 03/25/25 10:00 04/17/25 08:30 81 MG Insulin Human Regular ACHS SC 03/30/25 22:00 04/17/25 22:08 2 UNITS Ondansetron HCl 4 mg Q8HP PRN PO 04/05/25 15:30 Fentanyl Citrate 250 ml @ 2.5 mls/hr Q24H IV 04/06/25 11:00 04/18/25 13:12 15 MLS/HR Norepinephrine Bitartrate 250 ml @ 3.75 mls/hr Q24H IV 04/08/25 02:30 04/08/25 02:37 3.75 MLS/HR Propofol 100 ml @ 2.232 mls/ hr Q24H IV 04/08/25 16:45 04/18/25 15:18 20.088 MLS/HR Cefiderocol 1.5 gm/Sodium Chloride 100 ml @ 33.333 mls/ hr Q8H IV 04/11/25 13:00 04/18/25 22:00 04/18/25 13:12 33.333 MLS/HR Enteral Nutritional Formula 1,000 ml 30ML/HR GT 04/15/25 08:45 04/16/25 19:50 1,000 ML Vancomycin HCl 0 ml @ 0 mls/hr UD IV 04/15/25 22:00 Hydralazine HCl 10 mg Q4HPRN PRN IV 04/16/25 16:00 04/18/25 06:11 10 MG Sodium Chloride 10 ml QSHIFT@10,22 IV 04/16/25 22:00 04/18/25 09:04 10 ML laboratory and microbiology Laboratory Tests 04/18/25 05:30 Test 04/18/25 05:30 Range/Units Serum Glucose 147 H 74-106 mg/dL Assessment/Plan Impression Acute hypoxemic respiratory failure Altered mental status Hx of CVA Sepsis Patient seen and examined in ICU Events On mechanical ventilation S/p tracheostomy PEEP 5, FiO2 30% Patient hypothermic requiring bear hugger Labs and imaging reviewed Chest x-ray shows possible air in the diaphragm concerning for bowel perforation CT of the chest confirms large volume pneumoperitoneum ABG reviewed Management Vent support as needed Titrate to maintain sats 90% or above Trach care per RT protocol Trach collar trials daily Continue antibiotics F/u cultures Bronchodilators Monitor renal function Monitor electrolytes Supplement as needed Monitor for hypothermia Warming measures DVT prophylaxis Critical care time 35 minutes Dietary Evaluation Review Comments: 1) Esau 1 pk BID 2) Refer Forming Process Worker on DC 3) Continue current plan of care Expected Outcomes/Goals: Pt will meet >75% estimated needs Fu 3-5 days Plan discussed with: Other (Rn) ARUNA BRISENO MD April 18, 2025 15:23
--- NOTE | 2025-04-18 19:35 | DVH ---
Procedure: XY UGI GASTROGRAFIN W SMLL BOWEL Reason for study/Clinical History: r/o displacement of gastrostomy tube or leak Comparison Study: None Technique: Single contrast small bowel series performed. FINDINGS/IMPRESSION: Initial bit grinder view of the abdomen and pelvis appears demonstrates no acute process. Contrast is identified within the colon by 2 hours. This represents a normal small bowel transit cristy e. Gastrostomy tube in satisfactory position.
--- NOTE | 2025-04-18 19:36 | DVHPN2 ---
Progress Note - Dictate Date Seen: April 18, 2025 Medical Necessity Reason Pt with a Central, PICC or Fol: Yes The following are medically ne: Acosta Catheter Reason for acosta catheter: Strict I&O Subjective Patient was seen and evaluated in follow up in the ICU. Overnight, patient was pulling on trach tube. Patient is intubated and sedated on ventilator. FiO2 remains at 30%. WBC 11.6, HGB 7.1, HCT 21.6, K 2.8, CO2 16, BUN 25, SENIOR MATERIALS ANALYST 1.19, CA 7.9. Chest x-ray shows bibasilar opacities similar to prior study, large volume pneumoperitoneum, removal of the left central venous catheter. CT ABD PEL shows large volume pneumoperitoneum, as seen on same day chest radiograph. The etiology of the pneumoperitoneum is uncertain, possibly associated with the percutaneous gastrostomy tube, or due to perforated viscus, although no definite perforated viscus visualized on this exam. vital signs Vital Sign Date Time Temp Pulse Resp B/P (MAP) Pulse Ox O2 Delivery O2 Flow Rate FiO2 04/18/25 11:45 96.3 71 18 117/65 (82) 100 96.3 04/18/25 10:27 30 04/18/25 10:00 Mechanical Ventilator+ Total Intake and Output 04/17/25 04/17/25 04/18/25 15:00 23:00 07:00 Intake Total 278.331 ml 561.166 ml 568.060 ml Output Total 700 ml 900 ml Balance 278.331 ml -138.834 ml -331.940 ml medications Current Medications Medications Dose Ordered Sig/John Route Start Time Stop Time Status Last Admin Dose Admin Acetaminophen 650 mg Q6HP PRN PO 02/19/25 13:45 03/09/25 21:36 650 MG Diagnostic Test (Pha) 1 strip ACHS 02/19/25 17:00 04/18/25 11:47 1 STRIP Dextrose 50 ml UD PRN IV 02/19/25 15:45 04/11/25 21:04 50 ML Potassium Chloride 100 ml @ 50 mls/hr Q2H IV 02/19/25 23:15 02/20/25 05:14 Cancel Potassium Chloride 100 ml @ 50 mls/hr Q2H IV 02/20/25 07:15 02/20/25 11:14 UNV Calcium Acetate 1,334 mg TIDWMEALS PO 03/04/25 12:00 04/17/25 18:00 1,334 MG Ergocalciferol 50,000 unit Q7D PO 03/04/25 11:45 04/15/25 14:30 50,000 UNIT Zirconium Oxide 10 gm TID PO 03/07/25 14:00 Cancel Sodium Bicarbonate 50 ml/ Sodium Chloride 1,050 ml @ 100 mls/hr [id number] IV 03/07/25 11:45 Cancel Pantoprazole Sodium 40 mg BID IV 03/13/25 10:00 04/18/25 09:04 40 MG Albuterol 2.5 mg Q6HR NEB 03/13/25 12:00 04/18/25 06:23 2.5 MG Ipratropium [place] 0.5 mg Q6HR NEB 03/13/25 12:00 04/18/25 06:23 0.5 MG Saccharomyces Boulardii 250 mg DAILY PO 03/14/25 10:00 04/17/25 08:29 250 MG Atorvastatin Calcium 80 mg HS PO 03/24/25 22:00 04/17/25 22:03 80 MG Aspirin 81 mg DAILY NG 03/25/25 10:00 04/17/25 08:30 81 MG Insulin Human Regular ACHS SC 03/30/25 22:00 04/17/25 22:08 2 UNITS Ondansetron HCl 4 mg Q8HP PRN PO 04/05/25 15:30 Fentanyl Citrate 250 ml @ 2.5 mls/hr Q24H IV 04/06/25 11:00 04/17/25 05:50 5 MLS/HR Norepinephrine Bitartrate 250 ml @ 3.75 mls/hr Q24H IV 04/08/25 02:30 04/08/25 02:37 3.75 MLS/HR Propofol 100 ml @ 2.232 mls/ hr Q24H IV 04/08/25 16:45 04/18/25 10:40 20.088 MLS/HR Cefiderocol 1.5 gm/Sodium Chloride 100 ml @ 33.333 mls/ hr Q8H IV 04/11/25 13:00 04/18/25 05:46 33.333 MLS/HR Enteral Nutritional Formula 1,000 ml 30ML/HR GT 04/15/25 08:45 04/16/25 19:50 1,000 ML Vancomycin HCl 0 ml @ 0 mls/hr UD IV 04/15/25 22:00 Hydralazine HCl 10 mg Q4HPRN PRN IV 04/16/25 16:00 04/18/25 06:11 10 MG Sodium Chloride 10 ml QSHIFT@10,22 IV 04/16/25 22:00 04/18/25 09:04 10 ML Potassium Chloride 100 ml @ 50 mls/hr Q2H IV 04/18/25 07:30 04/18/25 13:29 04/18/25 10:40 50 MLS/HR objective GENERAL: Ill appearing, intubated on ventilator. EYES: PERRL, EOMI. Anicteric. HENT: Moist mucous membranes. LUNGS: Decreased breath sounds. CARDIOVASCULAR: Regular rate and rhythm. ABDOMEN: Soft, non-tender and non-distended. EXTREMITIES: No edema. SKIN: Warm, dry. laboratory and microbiology Laboratory Tests 04/18/25 05:30 Test 04/18/25 05:30 Range/Units Serum Glucose 147 H 74-106 mg/dL Problem List Multiple acute/subacute strokes. Hypokalemia. Acute kidney injury. Hypertension, newly diagnosed. Insulin-dependent diabetes mellitus. Status post right BKA. Dyslipidemia. Polysubstance use disorder. Left lower extremity cellulitis. Peripheral vascular disease status post right [id number] amputation 6 months ago. Sepsis. Diabetic neuropathy. Assessment/Plan Continued all current supportive medical care. Aspirin, Lipitor. IV antibiotics as ordered. GI prophylactics. IV Hydralazine for SBP > 150. Vasopressors for hemodynamic support. Additional plan as per the hospital course. Critical care time of 45 minutes provided to include time spent evaluation of patient at bedside, when appropriate patient/family education for diagnosis, treatment plan, review of pertinent medical information and discussion of care with specialty providers and PCP. Mechanical ventilator parameters, treatment and adjustments have personally been reviewed by me and treatment plan by canary raiser has also been reviewed. Dietary Evaluation Review Comments: 1) Esau 1 pk BID 2) Refer Sole Leveler on DC 3) Continue current plan of care Expected Outcomes/Goals: Pt will meet >75% estimated needs Fu 3-5 days Plan discussed with: Other YANIRA WINN MD April 18, 2025 12:10
--- NOTE | 2025-04-18 22:29 | DVHPN2 ---
Consult Progress Note Date Seen: April 18, 2025 Subjective Patient reports: Other (found on KB to have pneumoparitoneum . abdominal distension and is not getting any tube feeds at this time and is on minimal vent ) Objective vital signs Vital Sign Date Time Temp Pulse Resp B/P (MAP) Pulse Ox O2 Delivery O2 Flow Rate FiO2 04/18/25 20:42 117/65 04/18/25 20:10 74 24 100 30 04/18/25 20:00 Mechanical Ventilator+ 04/18/25 20:00 96.3 96.3 Total Intake and Output 04/17/25 04/17/25 04/18/25 15:00 23:00 07:00 Intake Total 278.331 ml 561.166 ml 568.060 ml Output Total 700 ml 900 ml Balance 278.331 ml -138.834 ml -331.940 ml medications Current Medications Medications Dose Ordered Sig/John Route Start Time Stop Time Status Last Admin Dose Admin Acetaminophen 650 mg Q6HP PRN PO 02/19/25 13:45 03/09/25 21:36 650 MG Diagnostic Test (Pha) 1 strip ACHS 02/19/25 17:00 04/18/25 17:59 1 STRIP Dextrose 50 ml UD PRN IV 02/19/25 15:45 04/11/25 21:04 50 ML Potassium Chloride 100 ml @ 50 mls/hr Q2H IV 02/19/25 23:15 02/20/25 05:14 Cancel Potassium Chloride 100 ml @ 50 mls/hr Q2H IV 02/20/25 07:15 02/20/25 11:14 UNV Calcium Acetate 1,334 mg TIDWMEALS PO 03/04/25 12:00 04/17/25 18:00 1,334 MG Ergocalciferol 50,000 unit Q7D PO 03/04/25 11:45 04/15/25 14:30 50,000 UNIT Zirconium Oxide 10 gm TID PO 03/07/25 14:00 Cancel Sodium Bicarbonate 50 ml/ Sodium Chloride 1,050 ml @ 100 mls/hr [id number] IV 03/07/25 11:45 Cancel Pantoprazole Sodium 40 mg BID IV 03/13/25 10:00 04/18/25 09:04 40 MG Albuterol 2.5 mg Q6HR NEB 03/13/25 12:00 04/18/25 18:28 2.5 MG Ipratropium [place] 0.5 mg Q6HR NEB 03/13/25 12:00 04/18/25 18:28 0.5 MG Saccharomyces Boulardii 250 mg DAILY PO 03/14/25 10:00 04/17/25 08:29 250 MG Atorvastatin Calcium 80 mg HS PO 03/24/25 22:00 04/17/25 22:03 80 MG Aspirin 81 mg DAILY NG 03/25/25 10:00 04/17/25 08:30 81 MG Insulin Human Regular ACHS SC 03/30/25 22:00 04/17/25 22:08 2 UNITS Ondansetron HCl 4 mg Q8HP PRN PO 04/05/25 15:30 Fentanyl Citrate 250 ml @ 2.5 mls/hr Q24H IV 04/06/25 11:00 04/18/25 13:12 15 MLS/HR Norepinephrine Bitartrate 250 ml @ 3.75 mls/hr Q24H IV 04/08/25 02:30 04/08/25 02:37 3.75 MLS/HR Propofol 100 ml @ 2.232 mls/ hr Q24H IV 04/08/25 16:45 04/18/25 20:05 20.088 MLS/HR Enteral Nutritional Formula 1,000 ml 30ML/HR GT 04/15/25 08:45 04/16/25 19:50 1,000 ML Vancomycin HCl 0 ml @ 0 mls/hr UD IV 04/15/25 22:00 Hydralazine HCl 10 mg Q4HPRN PRN IV 04/16/25 16:00 04/18/25 06:11 10 MG Sodium Chloride 10 ml QSHIFT@10,22 IV 04/16/25 22:00 04/18/25 09:04 10 ML laboratory and microbiology Laboratory Tests 04/18/25 05:30 Test 04/18/25 05:30 Range/Units Serum Glucose 147 H 74-106 mg/dL Problem List/Assessment/Plan Problems(with codes): (1) Intractable vomiting (2) Acute abdominal pain (3) Uncontrolled diabetes mellitus (4) TATIANNA (acute kidney injury) (5) UTI (urinary tract infection) (6) Sepsis Problem List/Assessment/Plan Pneumonia ESBL Klebsiella, Carbapenemic resistant Pseudomonas positive sputum culture , possible due to ventilator associated pneumonia Sepsis probably due to above Left patellar bursitis, I&D w bursectomy performed on 03/07/25 Left knee culture growing MSSA Left foot ulcer, dorsal aspect Multiple acute-subacute strokes Ruled out C diff colitis Hypokalemia TATIANNA on CKD Peripheral arterial disease s/p R BKA 6 months ago Type 2 diabetes, uncontrolled Diabetic neuropathy Angioedema of the tongue Patient is a 64 year old female with a past medical history of diabetes, left foot ulcer , hypertension , hyperlipidemia , anxiety , peripheral arterial disease , depression , presents with left sided weakness and mild dysarthria . Had a brain MRI revealing multiple small falsi of acute to subacute infarcts in the right coronary radiata and right basal ganglia. Underwent MAGALIS which showed no masses or vegetation . Bubble study was negative , valve restriction is normal . Patient was intubated on 03/13 and a rapid was called . Intubated due to airway protection and excavated on 03/26. but then shortly reintubated due to possible right lower lobe aspiration.Is now on 2 liters nasal canula and has left knee swelling ,erythema , cultures were growing MSSA , however on Clindamycin and irrigation and debridement of left patella on 03/07. She is noting having some diarrhea, with some left knee swelling persistent after debridement . Surgical roxanne are clean and left upper extremity swelling is noted . Crackles in the lungs and is tachycardic Assessment: 04/02:Patient is growing pseudomonas , ESBL klebsiella on sputum culture likely due to hospital acquired pneumonia. possible C diff colitis. As well as an MSSA left knee bursitis that has yet to be treated with appropriate antibiotics. Patient has peripheral arterial disease and right decay and uncontrolled diabetes 04/03: patient is doing better , diarrhea has significantly improved and tolerating antibiotics without any fevers or chills . Patient is a bit drowsy . Patient has some mild angioedema of the tongue . C diff testing is negative 04/04: Patient was seen by Dr Velasco and tolerating diet. Agree with Dr. Velasco findings . Not having any worsening diarrhea 04/05: having diarrhea with antibiotic therapy , most recent chest xray shows lung bases that are unremarkable. clinically stable and worsening confusion and immunity , possible aspiration 04/06: patient has ongoing diarrhea as potential source of worsening septic picture . Patient was found to be hypoxic and confused yesterday possible related to acute aspiration event and possible mucus plugging as patient also refused chest pt. 04/07: presser needs are coming down , suspect aspiration event 04/08: required blood transfusion for hemoglobin 6.9 , unclear if this is due to a real bleed and will continue to monitor for signs of bleeding . Chest xray shows cardiomegaly with mild signs of congestion . Head CT shows right posterior frontal periventricular white matter disease , likely subacute to few small old infacts bilateral basal gangular thats greater on the right side. Cultures are currently with moderate gram negative rods in the sputum and blood cultures are no growth to date 04/09: Culture continues to show moderate gram negative jw in the sputum , awaiting speciation . would be concerned [id number] is not being adequately treated for gram negative jw infection in the sputum previously . 04/10: having some diffuse wheezing in lungs likely contributing to acute hypoxia as well as the gram negative jw that is pending speciation 04/11: S/P trach and peg and tolerating feeds . growing medina resistant and carbon resistant ESBL . Klebsiella pneumonia in the lungs 04/12: tolerating antibiotics and not needing nay presser support , no signs of ongoing sepsis . chest xray shows stable pneumonia 04/13: tolerating antibiotics 04/14:peg tube feeding has been stalled and awaiting feeds . trach setting are stable and tachycardia is stable 04/15: awaiting Ltach placement , vancomycin troth have been therapeutic , tolerating antibiotics 04/16: whitecount is 15.8 , chest xray shows bibasilar etolectisis or pneumonia . patient has a piccline in place 04/17: s/p peg placement 04/18: normal bowel transmit seen on small bowel series Plan: - defer to general surgery team for abdominal distension seen after s/p pegtube placement - stop zerbaxa as patient completed 7 day coarse - defer to general surgery for management of abdominal distension and post surgical care - continue fetroja for 5-7 days - continue vancomycin for MSSA left knee cellulitis for a 3 week coarse - consider bronchoscopy and deeper sputum cultures and BAL culture if patient is to get a bronchoscopy to asses for airway clearance, defer to pulmonology on this - will fu on pending blood culture and urine culture and stool culture - Authorized and Performed by: Katerine Hughes Total critical care time: Approximately 56 minutes Due to a high probability of clinically significant, life threatening deterioration, the patient required my highest level of preparedness to intervene emergently and I personally spent this critical care time directly and personally managing the patient. This critical care time included obtaining a history; examining the patient; pulse oximetry; ordering and review of studies; arranging urgent treatment with development of a management plan; evaluation of patient's response to treatment; frequent reassessment; and, discussions with other providers. This critical care time was performed to assess and manage the high probability of imminent, life-threatening deterioration that could result in multi-organ failure. It was exclusive of separately billable procedures and treating other patients and teaching time. Plan discussed with: Other Dietary Evaluation Review Comments: 1) Esau 1 pk BID 2) Refer Vehicle Service Agent on DC 3) Continue current plan of care Expected Outcomes/Goals: Pt will meet >75% estimated needs Fu 3-5 days KATERINE HUGHES MD April 18, 2025 22:29
[2025-04-19] VITALS (91 sets, daily range): BP systolic 80–144; BP diastolic 41–80; PULSE 73–93; RESP 0–22; TEMP 96.4–98.6; O2SAT 91–100
[2025-04-19 08:09] LABS: Alanine Aminotransferase 12 U/L (7-40); Anion Gap 12 (5-15); Aspartate Aminotransferase 15 U/L (13-40); Glucose 90 mg/dL (74-106); Magnesium 1.6 mg/dL (1.6-2.6)
[2025-04-19 08:13] LABS: Albumin 1.6 g/dL (3.2-4.8); Alkaline Phosphatase 263 U/L (46-116); Bilirubin, Total < 0.2 mg/dL (0.2-1.0); Blood Urea Nitrogen 25 mg/dL (9-23); Calcium 7.2 mg/dL (8.7-10.4); Carbon Dioxide 14 mmol/L (20-31); Chloride 122 mmol/L (98-107); Potassium 3.1 mmol/L (3.5-5.1); Sodium 148 mmol/L (136-145); Total Protein 3.6 g/dL (5.7-8.2)
[2025-04-19 08:21] LABS: Basophils # (auto) 0.1 10 ^3/uL (0-0.2); Eosinophils # (auto) 0.1 10 ^3/uL (0-0.8); Eosinophils % (auto) 0.7 % (0.0-7.0); Hematocrit 22.4 % (36.0-46.0); Hemoglobin 7.3 g/dL (12.2-16.2); Mean Corpuscular Hgb Conc. 32.7 g/dL (32.0-36.0); Monocytes # (auto) 0.5 10 ^3/uL (0-1.3)
[2025-04-19 08:23] LABS: Basophils % (auto) 0.5 % (0.0-2.0); Lymphocytes # (auto) 0.7 10 ^3/uL (0.4-5.4); Lymphocytes % (auto) 5.5 % (10.0-50.0); Mean Corpuscular Hemoglobin 28.4 pg (28.0-32.0); Mean Corpuscular Volume 86.9 fL (80.0-100.0); Monocytes % (auto) 3.5 % (0.0-12.0); Neutrophils # (auto) 11.5 10 ^3/uL (1.6-8.6); Neutrophils % (auto) 89.8 % (37.0-80.0); Platelet Count (auto) 244 10^3/uL (140-450); Red Blood Cells 2.58 10^6/uL (4.0-5.20); Red Cell Distribution Width 17.5 % (11.8-14.3); White Blood Cell 12.8 10^3/uL (4.4-10.8)
--- NOTE | 2025-04-19 11:32 | DVHPN2 ---
Progress Note Date Seen: April 19, 2025 Medical Necessity Reason Pt with a Central, PICC or Fol: Yes The following are medically ne: Acosta Catheter Reason for acosta catheter: Strict I&O Objective vital signs Vital Sign Date Time Temp Pulse Resp B/P (MAP) Pulse Ox O2 Delivery O2 Flow Rate FiO2 04/19/25 11:21 77 18 110/57 (74) 98 30 04/19/25 10:00 Mechanical Ventilator+ 04/19/25 08:00 98.6 98.6 Total Intake and Output 04/18/25 04/18/25 04/19/25 15:00 23:00 07:00 Intake Total 497.370 ml 329.038 ml 415.704 ml Output Total 550 ml 300 ml Balance 497.370 ml -220.962 ml 115.704 ml medications Current Medications Medications Dose Ordered Sig/John Route Start Time Stop Time Status Last Admin Dose Admin Acetaminophen 650 mg Q6HP PRN PO 02/19/25 13:45 03/09/25 21:36 650 MG Diagnostic Test (Pha) 1 strip ACHS 02/19/25 17:00 04/19/25 07:00 1 STRIP Dextrose 50 ml UD PRN IV 02/19/25 15:45 04/11/25 21:04 50 ML Potassium Chloride 100 ml @ 50 mls/hr Q2H IV 02/19/25 23:15 02/20/25 05:14 Cancel Potassium Chloride 100 ml @ 50 mls/hr Q2H IV 02/20/25 07:15 02/20/25 11:14 UNV Calcium Acetate 1,334 mg TIDWMEALS PO 03/04/25 12:00 04/17/25 18:00 1,334 MG Ergocalciferol 50,000 unit Q7D PO 03/04/25 11:45 04/15/25 14:30 50,000 UNIT Zirconium Oxide 10 gm TID PO 03/07/25 14:00 Cancel Sodium Bicarbonate 50 ml/ Sodium Chloride 1,050 ml @ 100 mls/hr [id number] IV 03/07/25 11:45 Cancel Pantoprazole Sodium 40 mg BID IV 03/13/25 10:00 04/19/25 09:17 40 MG Albuterol 2.5 mg Q6HR NEB 03/13/25 12:00 04/19/25 11:21 2.5 MG Ipratropium [place] 0.5 mg Q6HR NEB 03/13/25 12:00 04/19/25 11:21 0.5 MG Saccharomyces Boulardii 250 mg DAILY PO 03/14/25 10:00 04/17/25 08:29 250 MG Atorvastatin Calcium 80 mg HS PO 03/24/25 22:00 04/18/25 23:01 80 MG Aspirin 81 mg DAILY NG 03/25/25 10:00 04/17/25 08:30 81 MG Insulin Human Regular ACHS SC 03/30/25 22:00 04/17/25 22:08 2 UNITS Ondansetron HCl 4 mg Q8HP PRN PO 04/05/25 15:30 Fentanyl Citrate 250 ml @ 2.5 mls/hr Q24H IV 04/06/25 11:00 04/19/25 02:49 15 MLS/HR Norepinephrine Bitartrate 250 ml @ 3.75 mls/hr Q24H IV 04/08/25 02:30 04/08/25 02:37 3.75 MLS/HR Propofol 100 ml @ 2.232 mls/ hr Q24H IV 04/08/25 16:45 04/19/25 09:36 20.088 MLS/HR Enteral Nutritional Formula 1,000 ml 30ML/HR GT 04/15/25 08:45 04/16/25 19:50 1,000 ML Vancomycin HCl 0 ml @ 0 mls/hr UD IV 04/15/25 22:00 Hydralazine HCl 10 mg Q4HPRN PRN IV 04/16/25 16:00 04/18/25 06:11 10 MG Sodium Chloride 10 ml QSHIFT@10,22 IV 04/16/25 22:00 04/19/25 09:18 10 ML laboratory and microbiology Laboratory Tests 04/19/25 08:00 04/19/25 06:45 Test 04/19/25 06:45 Range/Units Serum Glucose 90 74-106 mg/dL Problem List/Assessment/Plan Problem List/Assessment/Plan 04/18/25 tracheostomy, gastrostomy, pt sedated on ventilator, large pneumoperitoneum on X ray. abdomen non distended, , soft.:R/O leak vs. tube displacement. will follow 04/19/25 X Ray shows no extravasation and gastrostomy in good position, abdomen non tender and non distended, will allow qastrostomy feedings. Plan discussed with: Other Dietary Evaluation Review Comments: 1) Esau 1 pk BID 2) Refer Gastroenterology Manager on DC 3) Continue current plan of care Expected Outcomes/Goals: Pt will meet >75% estimated needs Fu 3-5 days BONNIE ANDERSON MD April 19, 2025 11:32
[2025-04-19] MEDS: POTASSIUM CHL 20MEQ/100ML 100 ML IV SCH (14:31)
--- NOTE | 2025-04-19 14:50 | DVHPN2 ---
Progress Note - Dictate Date Seen: April 19, 2025 Medical Necessity Reason Pt with a Central, PICC or Fol: Yes The following are medically ne: Acosta Catheter Reason for acosta catheter: Strict I&O Subjective Patient was seen and evaluated in follow up in the ICU. Patient is intubated and sedated on ventilator. FiO2 30%. WBC 12.8, HGB 7.3, HCT 22.4, NA 148, K 3.1, BUN 25, LOG CHIPPER 1.04, CA 7.2. Upper GI and small bowel x-ray shows gastrostomy tube in satisfactory position. Patients potassium was replaced. vital signs Vital Sign Date Time Temp Pulse Resp B/P (MAP) Pulse Ox O2 Delivery O2 Flow Rate FiO2 04/19/25 11:21 77 18 110/57 (74) 98 30 04/19/25 10:00 Mechanical Ventilator+ 04/19/25 08:00 98.6 98.6 Total Intake and Output 04/18/25 04/18/25 04/19/25 15:00 23:00 07:00 Intake Total 497.370 ml 329.038 ml 415.704 ml Output Total 550 ml 300 ml Balance 497.370 ml -220.962 ml 115.704 ml medications Current Medications Medications Dose Ordered Sig/John Route Start Time Stop Time Status Last Admin Dose Admin Acetaminophen 650 mg Q6HP PRN PO 02/19/25 13:45 03/09/25 21:36 650 MG Diagnostic Test (Pha) 1 strip ACHS 02/19/25 17:00 04/19/25 07:00 1 STRIP Dextrose 50 ml UD PRN IV 02/19/25 15:45 04/11/25 21:04 50 ML Potassium Chloride 100 ml @ 50 mls/hr Q2H IV 02/19/25 23:15 02/20/25 05:14 Cancel Potassium Chloride 100 ml @ 50 mls/hr Q2H IV 02/20/25 07:15 02/20/25 11:14 UNV Calcium Acetate 1,334 mg TIDWMEALS PO 03/04/25 12:00 04/17/25 18:00 1,334 MG Ergocalciferol 50,000 unit Q7D PO 03/04/25 11:45 04/15/25 14:30 50,000 UNIT Zirconium Oxide 10 gm TID PO 03/07/25 14:00 Cancel Sodium Bicarbonate 50 ml/ Sodium Chloride 1,050 ml @ 100 mls/hr [id number] IV 03/07/25 11:45 Cancel Pantoprazole Sodium 40 mg BID IV 03/13/25 10:00 04/19/25 09:17 40 MG Albuterol 2.5 mg Q6HR NEB 03/13/25 12:00 04/19/25 11:21 2.5 MG Ipratropium [place] 0.5 mg Q6HR NEB 03/13/25 12:00 04/19/25 11:21 0.5 MG Saccharomyces Boulardii 250 mg DAILY PO 03/14/25 10:00 04/17/25 08:29 250 MG Atorvastatin Calcium 80 mg HS PO 03/24/25 22:00 04/18/25 23:01 80 MG Aspirin 81 mg DAILY NG 03/25/25 10:00 04/17/25 08:30 81 MG Insulin Human Regular ACHS SC 03/30/25 22:00 04/17/25 22:08 2 UNITS Ondansetron HCl 4 mg Q8HP PRN PO 04/05/25 15:30 Fentanyl Citrate 250 ml @ 2.5 mls/hr Q24H IV 04/06/25 11:00 04/19/25 02:49 15 MLS/HR Norepinephrine Bitartrate 250 ml @ 3.75 mls/hr Q24H IV 04/08/25 02:30 04/08/25 02:37 3.75 MLS/HR Propofol 100 ml @ 2.232 mls/ hr Q24H IV 04/08/25 16:45 04/19/25 09:36 20.088 MLS/HR Enteral Nutritional Formula 1,000 ml 30ML/HR GT 04/15/25 08:45 04/16/25 19:50 1,000 ML Vancomycin HCl 0 ml @ 0 mls/hr UD IV 04/15/25 22:00 Hydralazine HCl 10 mg Q4HPRN PRN IV 04/16/25 16:00 04/18/25 06:11 10 MG Sodium Chloride 10 ml QSHIFT@10,22 IV 04/16/25 22:00 04/19/25 09:18 10 ML objective GENERAL: Ill appearing, intubated on ventilator. EYES: PERRL, EOMI. Anicteric. HENT: Moist mucous membranes. LUNGS: Decreased breath sounds. CARDIOVASCULAR: Regular rate and rhythm. ABDOMEN: Soft, non-tender and non-distended. EXTREMITIES: No edema. SKIN: Warm, dry. laboratory and microbiology Laboratory Tests 04/19/25 08:00 04/19/25 06:45 Test 04/19/25 06:45 Range/Units Serum Glucose 90 74-106 mg/dL Problem List Multiple acute/subacute strokes. Hypokalemia. Acute kidney injury. Hypertension, newly diagnosed. Insulin-dependent diabetes mellitus. Status post right BKA. Dyslipidemia. Polysubstance use disorder. Left lower extremity cellulitis. Peripheral vascular disease status post right [id number] amputation 6 months ago. Sepsis. Diabetic neuropathy. Assessment/Plan Continued all current supportive medical care. Aspirin, Lipitor. IV antibiotics as ordered. GI prophylactics. IV Hydralazine for SBP > 150. Vasopressors for hemodynamic support. Additional plan as per the hospital course. Critical care time of 45 minutes provided to include time spent evaluation of patient at bedside, when appropriate patient/family education for diagnosis, treatment plan, review of pertinent medical information and discussion of care with specialty providers and PCP. Mechanical ventilator parameters, treatment and adjustments have personally been reviewed by me and treatment plan by industrial chemist has also been reviewed. Dietary Evaluation Review Comments: 1) Esau 1 pk BID 2) Refer Generation Manager on DC 3) Continue current plan of care Expected Outcomes/Goals: Pt will meet >75% estimated needs Fu 3-5 days Plan discussed with: Other YANIRA WINN MD April 19, 2025 11:59
[2025-04-19] MEDS: HYDROcodone-ACET 10/325MG TAB PO PRN (14:57)
--- NOTE | 2025-04-19 16:16 | DVHPN2 ---
Progress Note - Dictate Date Seen: April 19, 2025 Medical Necessity Reason Pt with a Central, PICC or Fol: Yes The following are medically ne: Acosta Catheter Reason for acosta catheter: Strict I&O vital signs Vital Sign Date Time Temp Pulse Resp B/P (MAP) Pulse Ox O2 Delivery O2 Flow Rate FiO2 04/19/25 15:55 85 18 129/52 (77) 98 30 04/19/25 14:00 Mechanical Ventilator+ 04/19/25 12:00 98.1 98.1 Total Intake and Output 04/18/25 04/18/25 04/19/25 15:00 23:00 07:00 Intake Total 497.370 ml 329.038 ml 415.704 ml Output Total 550 ml 300 ml Balance 497.370 ml -220.962 ml 115.704 ml medications Current Medications Medications Dose Ordered Sig/John Route Start Time Stop Time Status Last Admin Dose Admin Acetaminophen 650 mg Q6HP PRN PO 02/19/25 13:45 03/09/25 21:36 650 MG Diagnostic Test (Pha) 1 strip ACHS 02/19/25 17:00 04/19/25 11:30 1 STRIP Dextrose 50 ml UD PRN IV 02/19/25 15:45 04/11/25 21:04 50 ML Potassium Chloride 100 ml @ 50 mls/hr Q2H IV 02/19/25 23:15 02/20/25 05:14 Cancel Potassium Chloride 100 ml @ 50 mls/hr Q2H IV 02/20/25 07:15 02/20/25 11:14 UNV Calcium Acetate 1,334 mg TIDWMEALS PO 03/04/25 12:00 04/19/25 12:17 1,334 MG Ergocalciferol 50,000 unit Q7D PO 03/04/25 11:45 04/15/25 14:30 50,000 UNIT Zirconium Oxide 10 gm TID PO 03/07/25 14:00 Cancel Sodium Bicarbonate 50 ml/ Sodium Chloride 1,050 ml @ 100 mls/hr [id number] IV 03/07/25 11:45 Cancel Pantoprazole Sodium 40 mg BID IV 03/13/25 10:00 04/19/25 09:17 40 MG Albuterol 2.5 mg Q6HR NEB 03/13/25 12:00 04/19/25 11:21 2.5 MG Ipratropium [place] 0.5 mg Q6HR NEB 03/13/25 12:00 04/19/25 11:21 0.5 MG Saccharomyces Boulardii 250 mg DAILY PO 03/14/25 10:00 04/17/25 08:29 250 MG Atorvastatin Calcium 80 mg HS PO 03/24/25 22:00 04/18/25 23:01 80 MG Aspirin 81 mg DAILY NG 03/25/25 10:00 04/17/25 08:30 81 MG Insulin Human Regular ACHS SC 03/30/25 22:00 04/17/25 22:08 2 UNITS Ondansetron HCl 4 mg Q8HP PRN PO 04/05/25 15:30 Fentanyl Citrate 250 ml @ 2.5 mls/hr Q24H IV 04/06/25 11:00 04/19/25 02:49 15 MLS/HR Norepinephrine Bitartrate 250 ml @ 3.75 mls/hr Q24H IV 04/08/25 02:30 04/08/25 02:37 3.75 MLS/HR Propofol 100 ml @ 2.232 mls/ hr Q24H IV 04/08/25 16:45 04/19/25 14:03 20.088 MLS/HR Enteral Nutritional Formula 1,000 ml 30ML/HR GT 04/15/25 08:45 04/19/25 12:17 1,000 ML Vancomycin HCl 0 ml @ 0 mls/hr UD IV 04/15/25 22:00 Hydralazine HCl 10 mg Q4HPRN PRN IV 04/16/25 16:00 04/18/25 06:11 10 MG Sodium Chloride 10 ml QSHIFT@10,22 IV 04/16/25 22:00 04/19/25 09:18 10 ML Acetaminophen/ Hydrocodone Bitart 1 tab Q6HP PRN PO 04/19/25 13:15 04/19/25 14:57 1 TAB Potassium Chloride 100 ml @ 50 mls/hr Q2H IV 04/19/25 13:45 04/19/25 21:44 04/19/25 14:31 50 MLS/HR laboratory and microbiology Laboratory Tests 04/19/25 08:00 04/19/25 06:45 Test 04/19/25 06:45 Range/Units Serum Glucose 90 74-106 mg/dL Assessment/Plan Impression Acute hypoxemic respiratory failure Altered mental status Hx of CVA Sepsis Patient seen and examined in ICU Events On mechanical ventilation S/p tracheostomy PEEP 5, FiO2 30% Labs and imaging reviewed ABG reviewed Management Vent support as needed Titrate to maintain sats 90% or above Trach care per RT protocol Trach collar trials daily Continue antibiotics F/u cultures Bronchodilators Monitor renal function Monitor electrolytes Supplement as needed Pain control Avoid oversedation DVT prophylaxis Critical care time 35 minutes Dietary Evaluation Review Comments: 1) Esau 1 pk BID 2) Refer [place] Mold Maker on DC 3) Continue current plan of care Expected Outcomes/Goals: Pt will meet >75% estimated needs Fu 3-5 days Plan discussed with: Other (Rn) ARUNA BRISENO MD April 19, 2025 16:16
--- NOTE | 2025-04-19 23:30 | DVHPN2 ---
Consult Progress Note Date Seen: April 19, 2025 Subjective Patient reports: Other (abdomen is soft again and non distended , having bowel movements . low temps of 95.0 . hemoglobin had dropped to 6.8 and recieved a unit of blood ) Objective vital signs Vital Sign Date Time Temp Pulse Resp B/P (MAP) Pulse Ox O2 Delivery O2 Flow Rate FiO2 04/19/25 22:27 108/47 04/19/25 22:10 81 18 98 30 04/19/25 18:00 Mechanical Ventilator+ 04/19/25 16:00 96.4 96.4 Total Intake and Output 04/18/25 04/18/25 04/19/25 15:00 23:00 07:00 Intake Total 497.370 ml 329.038 ml 415.704 ml Output Total 550 ml 300 ml Balance 497.370 ml -220.962 ml 115.704 ml medications Current Medications Medications Dose Ordered Sig/John Route Start Time Stop Time Status Last Admin Dose Admin Acetaminophen 650 mg Q6HP PRN PO 02/19/25 13:45 03/09/25 21:36 650 MG Diagnostic Test (Pha) 1 strip ACHS 02/19/25 17:00 04/19/25 17:20 1 STRIP Dextrose 50 ml UD PRN IV 02/19/25 15:45 04/11/25 21:04 50 ML Potassium Chloride 100 ml @ 50 mls/hr Q2H IV 02/19/25 23:15 02/20/25 05:14 Cancel Potassium Chloride 100 ml @ 50 mls/hr Q2H IV 02/20/25 07:15 02/20/25 11:14 UNV Calcium Acetate 1,334 mg TIDWMEALS PO 03/04/25 12:00 04/19/25 19:07 1,334 MG Ergocalciferol 50,000 unit Q7D PO 03/04/25 11:45 04/15/25 14:30 50,000 UNIT Zirconium Oxide 10 gm TID PO 03/07/25 14:00 Cancel Sodium Bicarbonate 50 ml/ Sodium Chloride 1,050 ml @ 100 mls/hr [id number] IV 03/07/25 11:45 Cancel Pantoprazole Sodium 40 mg BID IV 03/13/25 10:00 04/19/25 09:17 40 MG Albuterol 2.5 mg Q6HR NEB 03/13/25 12:00 04/19/25 18:45 2.5 MG Ipratropium [place] 0.5 mg Q6HR NEB 03/13/25 12:00 04/19/25 18:45 0.5 MG Saccharomyces Boulardii 250 mg DAILY PO 03/14/25 10:00 04/17/25 08:29 250 MG Atorvastatin Calcium 80 mg HS PO 03/24/25 22:00 04/18/25 23:01 80 MG Aspirin 81 mg DAILY NG 03/25/25 10:00 04/17/25 08:30 81 MG Insulin Human Regular ACHS SC 03/30/25 22:00 04/17/25 22:08 2 UNITS Ondansetron HCl 4 mg Q8HP PRN PO 04/05/25 15:30 Fentanyl Citrate 250 ml @ 2.5 mls/hr Q24H IV 04/06/25 11:00 04/19/25 19:44 10 MLS/HR Norepinephrine Bitartrate 250 ml @ 3.75 mls/hr Q24H IV 04/08/25 02:30 04/08/25 02:37 3.75 MLS/HR Propofol 100 ml @ 2.232 mls/ hr Q24H IV 04/08/25 16:45 04/19/25 22:27 20.088 MLS/HR Enteral Nutritional Formula 1,000 ml 30ML/HR GT 04/15/25 08:45 04/19/25 12:17 1,000 ML Vancomycin HCl 0 ml @ 0 mls/hr UD IV 04/15/25 22:00 Hydralazine HCl 10 mg Q4HPRN PRN IV 04/16/25 16:00 04/18/25 06:11 10 MG Sodium Chloride 10 ml QSHIFT@10,22 IV 04/16/25 22:00 04/19/25 09:18 10 ML Acetaminophen/ Hydrocodone Bitart 1 tab Q6HP PRN PO 04/19/25 13:15 04/19/25 14:57 1 TAB laboratory and microbiology Laboratory Tests 04/19/25 08:00 04/19/25 06:45 Test 04/19/25 06:45 Range/Units Serum Glucose 90 74-106 mg/dL Problem List/Assessment/Plan Problems(with codes): (1) Intractable vomiting (2) Acute abdominal pain (3) Uncontrolled diabetes mellitus (4) UTI (urinary tract infection) (5) Sepsis (6) TATIANNA (acute kidney injury) Problem List/Assessment/Plan Pneumonia ESBL Klebsiella, Carbapenemic resistant Pseudomonas positive sputum culture , possible due to ventilator associated pneumonia Sepsis probably due to above Left patellar bursitis, I&D w bursectomy performed on 03/07/25 Left knee culture growing MSSA Left foot ulcer, dorsal aspect Multiple acute-subacute strokes Ruled out C diff colitis Hypokalemia TATIANNA on CKD Peripheral arterial disease s/p R BKA 6 months ago Type 2 diabetes, uncontrolled Diabetic neuropathy Angioedema of the tongue Patient is a 64 year old female with a past medical history of diabetes, left foot ulcer , hypertension , hyperlipidemia , anxiety , peripheral arterial disease , depression , presents with left sided weakness and mild dysarthria . Had a brain MRI revealing multiple small falsi of acute to subacute infarcts in the right coronary radiata and right basal ganglia. Underwent MAGALIS which showed no masses or vegetation . Bubble study was negative , valve restriction is normal . Patient was intubated on 03/13 and a rapid was called . Intubated due to airway protection and excavated on 03/26. but then shortly reintubated due to possible right lower lobe aspiration.Is now on 2 liters nasal canula and has left knee swelling ,erythema , cultures were growing MSSA , however on Clindamycin and irrigation and debridement of left patella on 03/07. She is noting having some diarrhea, with some left knee swelling persistent after debridement . Surgical roxanne are clean and left upper extremity swelling is noted . Crackles in the lungs and is tachycardic Assessment: 04/02:Patient is growing pseudomonas , ESBL klebsiella on sputum culture likely due to hospital acquired pneumonia. possible C diff colitis. As well as an MSSA left knee bursitis that has yet to be treated with appropriate antibiotics. Patient has peripheral arterial disease and right decay and uncontrolled diabetes 04/03: patient is doing better , diarrhea has significantly improved and tolerating antibiotics without any fevers or chills . Patient is a bit drowsy . Patient has some mild angioedema of the tongue . C diff testing is negative 04/04: Patient was seen by Dr Velasco and tolerating diet. Agree with Dr. Velasco findings . Not having any worsening diarrhea 04/05: having diarrhea with antibiotic therapy , most recent chest xray shows lung bases that are unremarkable. clinically stable and worsening confusion and immunity , possible aspiration 04/06: patient has ongoing diarrhea as potential source of worsening septic picture . Patient was found to be hypoxic and confused yesterday possible related to acute aspiration event and possible mucus plugging as patient also refused chest pt. 04/07: presser needs are coming down , suspect aspiration event 04/08: required blood transfusion for hemoglobin 6.9 , unclear if this is due to a real bleed and will continue to monitor for signs of bleeding . Chest xray shows cardiomegaly with mild signs of congestion . Head CT shows right posterior frontal periventricular white matter disease , likely subacute to few small old infacts bilateral basal gangular thats greater on the right side. Cultures are currently with moderate gram negative rods in the sputum and blood cultures are no growth to date 04/09: Culture continues to show moderate gram negative jw in the sputum , awaiting speciation . would be concerned [id number] is not being adequately treated for gram negative jw infection in the sputum previously . 04/10: having some diffuse wheezing in lungs likely contributing to acute hypoxia as well as the gram negative jw that is pending speciation 04/11: S/P trach and peg and tolerating feeds . growing medina resistant and carbon resistant ESBL . Klebsiella pneumonia in the lungs 04/12: tolerating antibiotics and not needing nay presser support , no signs of ongoing sepsis . chest xray shows stable pneumonia 04/13: tolerating antibiotics 04/14:peg tube feeding has been stalled and awaiting feeds . trach setting are stable and tachycardia is stable 04/15: awaiting Ltach placement , vancomycin troth have been therapeutic , tolerating antibiotics 04/16: whitecount is 15.8 , chest xray shows bibasilar etolectisis or pneumonia . patient has a piccline in place 04/17: s/p peg placement 04/18: normal bowel transmit seen on small bowel series 04/19: patient is getting a unit of blood , unclear of bleed source , possibly related to previous GI distension however general surgery has okayed patient to get started on tube feeds Plan: - Stop vancomycin due to tube feed toleration and switch to oral doxycyline 100mg 2x a day for an additional 7 days - monitor patient clinically for additional signs of infection however pneumonia appears resolved and knee infection appears significantly improved as well - defer to general surgery team for abdominal distension seen after s/p pegtube placement - defer to general surgery for management of abdominal distension and post surgical care - continue fetroja for 5-7 days - consider bronchoscopy and deeper sputum cultures and BAL culture if patient is to get a bronchoscopy to asses for airway clearance, defer to pulmonology on this - will fu on pending blood culture and urine culture and stool culture - Authorized and Performed by: Katerine Hughes Total critical care time: Approximately 56 minutes Due to a high probability of clinically significant, life threatening deterioration, the patient required my highest level of preparedness to intervene emergently and I personally spent this critical care time directly and personally managing the patient. This critical care time included obtaining a history; examining the patient; pulse oximetry; ordering and review of studies; arranging urgent treatment with development of a management plan; evaluation of patient's response to treatment; frequent reassessment; and, discussions with other providers. This critical care time was performed to assess and manage the high probability of imminent, life-threatening deterioration that could result in multi-organ failure. It was exclusive of separately billable procedures and treating other patients and teaching time. Plan discussed with: Other Dietary Evaluation Review Comments: 1) Esau 1 pk BID 2) Refer Felt Puller on DC 3) Continue current plan of care Expected Outcomes/Goals: Pt will meet >75% estimated needs Fu 3-5 days KATERINE HUGHES MD April 19, 2025 23:30
[2025-04-20] VITALS (109 sets, daily range): BP systolic 74–181; BP diastolic 43–109; PULSE 76–105; RESP 7–28; TEMP 95–97.9; O2SAT 86–100
--- NOTE | 2025-04-20 06:58 | DVH ---
INDICATION: MECHANICAL VENTILATION TECHNIQUE: Frontal view of the chest. COMPARISON: XY CHEST XRAY 1 VIEW on DOS: 04/18/25, XY CHEST PORTABLE on DOS: 04/15/25, XY CHEST XRAY 1 VIEW on DOS: 04/14/25, XY CHEST XRAY 1 VIEW on DOS: 04/11/25, XY CHEST PORTABLE on DOS: 04/11/25, XY OSIEL ST PORTABLE on DOS: 04/15/25 FINDINGS: LUNGS AND PLEURAL SPACES: Bibasilar atelectasis or pneumonia. No pneumothorax. HEART: Unremarkable. No cardiomegaly. MEDIASTINUM: Unremarkable. Normal mediastinal contour. BONES/JOINTS: Unremarkable. No acute fracture. TUBES, LINES AND DEVICES: Left internal jugular central venous catheter tip in the superior vena ca va. Tracheostomy tube in satisfactory position. IMPRESSION: Bibasilar atelectasis or pneumonia.
[2025-04-20 07:10] LABS: Basophils # (auto) 0 10 ^3/uL (0-0.2); Basophils % (auto) 0.3 % (0.0-2.0); Eosinophils # (auto) 0.1 10 ^3/uL (0-0.8); Monocytes # (auto) 0.3 10 ^3/uL (0-1.3)
[2025-04-20 07:12] LABS: Eosinophils % (auto) 0.9 % (0.0-7.0); Lymphocytes % (auto) 7.4 % (10.0-50.0); Mean Corpuscular Hemoglobin 28.3 pg (28.0-32.0); Mean Corpuscular Hgb Conc. 32.3 g/dL (32.0-36.0); Mean Corpuscular Volume 87.7 fL (80.0-100.0); Monocytes % (auto) 2.4 % (0.0-12.0); Neutrophils # (auto) 12.1 10 ^3/uL (1.6-8.6); Platelet Count (auto) 209 10^3/uL (140-450); Red Blood Cells 2.39 10^6/uL (4.0-5.20); Red Cell Distribution Width 17.7 % (11.8-14.3); White Blood Cell 13.5 10^3/uL (4.4-10.8)
[2025-04-20 07:21] LABS: Hemoglobin 6.8 g/dL (12.2-16.2)
[2025-04-20 07:25] LABS: Anion Gap 12 (5-15); Blood Urea Nitrogen 21 mg/dL (9-23); Potassium 3.5 mmol/L (3.5-5.1)
[2025-04-20 07:32] LABS: Alanine Aminotransferase < 9 U/L (7-40); Alkaline Phosphatase 223 U/L (46-116); Bilirubin, Total < 0.2 mg/dL (0.2-1.0); Calcium 7.2 mg/dL (8.7-10.4); Carbon Dioxide 13 mmol/L (20-31); Chloride 121 mmol/L (98-107); Glucose 124 mg/dL (74-106); Sodium 146 mmol/L (136-145); Total Protein 4.1 g/dL (5.7-8.2)
[2025-04-20 07:33] LABS: Albumin 1.9 g/dL (3.2-4.8); Magnesium 1.6 mg/dL (1.6-2.6)
[2025-04-20 07:51] LABS: Aspartate Aminotransferase 9 U/L (13-40)
--- NOTE | 2025-04-20 10:31 | DVHPN2 ---
Progress Note - Dictate Date Seen: April 20, 2025 Medical Necessity Reason Pt with a Central, PICC or Fol: Yes The following are medically ne: Acosta Catheter Reason for acosta catheter: Strict I&O vital signs Vital Sign Date Time Temp Pulse Resp B/P (MAP) Pulse Ox O2 Delivery O2 Flow Rate FiO2 04/20/25 09:27 77 18 100 30 04/20/25 08:00 95.0 95.0 04/20/25 08:00 Mechanical Ventilator+ Total Intake and Output 04/19/25 04/19/25 04/20/25 15:00 23:00 07:00 Intake Total 332.044 ml 551.688 ml 580.260 ml Output Total 450 ml 275 ml Balance 332.044 ml 101.688 ml 305.260 ml medications Current Medications Medications Dose Ordered Sig/John Route Start Time Stop Time Status Last Admin Dose Admin Acetaminophen 650 mg Q6HP PRN PO 02/19/25 13:45 03/09/25 21:36 650 MG Diagnostic Test (Pha) 1 strip ACHS 02/19/25 17:00 04/20/25 07:00 1 STRIP Dextrose 50 ml UD PRN IV 02/19/25 15:45 04/11/25 21:04 50 ML Potassium Chloride 100 ml @ 50 mls/hr Q2H IV 02/19/25 23:15 02/20/25 05:14 Cancel Potassium Chloride 100 ml @ 50 mls/hr Q2H IV 02/20/25 07:15 02/20/25 11:14 UNV Calcium Acetate 1,334 mg TIDWMEALS PO 03/04/25 12:00 04/20/25 07:39 1,334 MG Ergocalciferol 50,000 unit Q7D PO 03/04/25 11:45 04/15/25 14:30 50,000 UNIT Zirconium Oxide 10 gm TID PO 03/07/25 14:00 Cancel Sodium Bicarbonate 50 ml/ Sodium Chloride 1,050 ml @ 100 mls/hr [id number] IV 03/07/25 11:45 Cancel Pantoprazole Sodium 40 mg BID IV 03/13/25 10:00 04/20/25 10:23 40 MG Albuterol 2.5 mg Q6HR NEB 03/13/25 12:00 04/20/25 06:11 2.5 MG Ipratropium [place] 0.5 mg Q6HR NEB 03/13/25 12:00 04/20/25 06:11 0.5 MG Saccharomyces Boulardii 250 mg DAILY PO 03/14/25 10:00 04/20/25 10:23 250 MG Atorvastatin Calcium 80 mg HS PO 03/24/25 22:00 04/19/25 23:17 80 MG Aspirin 81 mg DAILY NG 03/25/25 10:00 04/20/25 10:23 81 MG Insulin Human Regular ACHS SC 03/30/25 22:00 04/17/25 22:08 2 UNITS Ondansetron HCl 4 mg Q8HP PRN PO 04/05/25 15:30 Fentanyl Citrate 250 ml @ 2.5 mls/hr Q24H IV 04/06/25 11:00 04/19/25 19:44 10 MLS/HR Norepinephrine Bitartrate 250 ml @ 3.75 mls/hr Q24H IV 04/08/25 02:30 04/08/25 02:37 3.75 MLS/HR Propofol 100 ml @ 2.232 mls/ hr Q24H IV 04/08/25 16:45 04/20/25 01:46 15.624 MLS/HR Enteral Nutritional Formula 1,000 ml 30ML/HR GT 04/15/25 08:45 04/19/25 12:17 1,000 ML Vancomycin HCl 0 ml @ 0 mls/hr UD IV 04/15/25 22:00 Hydralazine HCl 10 mg Q4HPRN PRN IV 04/16/25 16:00 04/18/25 06:11 10 MG Sodium Chloride 10 ml QSHIFT@10,22 IV 04/16/25 22:00 04/20/25 10:23 10 ML Acetaminophen/ Hydrocodone Bitart 1 tab Q6HP PRN PO 04/19/25 13:15 04/20/25 07:39 1 TAB laboratory and microbiology Laboratory Tests 04/20/25 06:35 Test 04/20/25 06:35 Range/Units Serum Glucose 124 H 74-106 mg/dL Assessment/Plan Impression Acute hypoxemic respiratory failure Altered mental status Hx of CVA Sepsis Patient seen and examined in ICU Events On mechanical ventilation S/p tracheostomy PEEP 5, FiO2 30% Labs and imaging reviewed ABG reviewed Management Vent support as needed Titrate to maintain sats 90% or above Trach care per RT protocol Trach collar trials daily Continue antibiotics F/u cultures Bronchodilators Monitor renal function Monitor electrolytes Supplement as needed Pain control Avoid oversedation DVT prophylaxis Critical care time 35 minutes Dietary Evaluation Review Comments: 1) Esau 1 pk BID 2) Refer Edging Supervisor on DC 3) Continue current plan of care Expected Outcomes/Goals: Pt will meet >75% estimated needs Fu 3-5 days Plan discussed with: Other (Rn) ARUNA BRISENO MD April 20, 2025 10:31
--- NOTE | 2025-04-20 15:04 | DVHPN2 ---
Progress Note - Dictate Date Seen: April 20, 2025 Medical Necessity Reason Pt with a Central, PICC or Fol: Yes The following are medically ne: Acosta Catheter Reason for acosta catheter: Strict I&O Subjective Patient was seen and evaluated in follow up in the ICU. Patient is intubated and sedated on ventilator. FiO2 30%. Boyfriend at bedside. Patient had a drop in H&H and received 1 unit PRBCs. Mittens are in place at this time to prevent patient pulling on trach. WBC 13.5, HGB 6.8, HCT 21, NA 146, CA 7.2. Chest x-ray shows bibasilar atelectasis or pneumonia. vital signs Vital Sign Date Time Temp Pulse Resp B/P (MAP) Pulse Ox O2 Delivery O2 Flow Rate FiO2 04/20/25 13:02 97.9 88 11 158/99 97.9 04/20/25 12:00 98 Mechanical Ventilator+ 30 30 Total Intake and Output 04/19/25 04/19/25 04/20/25 15:00 23:00 07:00 Intake Total 332.044 ml 551.688 ml 580.260 ml Output Total 450 ml 275 ml Balance 332.044 ml 101.688 ml 305.260 ml medications Current Medications Medications Dose Ordered Sig/John Route Start Time Stop Time Status Last Admin Dose Admin Acetaminophen 650 mg Q6HP PRN PO 02/19/25 13:45 03/09/25 21:36 650 MG Diagnostic Test (Pha) 1 strip ACHS 02/19/25 17:00 04/20/25 11:30 1 STRIP Dextrose 50 ml UD PRN IV 02/19/25 15:45 04/11/25 21:04 50 ML Potassium Chloride 100 ml @ 50 mls/hr Q2H IV 02/19/25 23:15 02/20/25 05:14 Cancel Potassium Chloride 100 ml @ 50 mls/hr Q2H IV 02/20/25 07:15 02/20/25 11:14 UNV Calcium Acetate 1,334 mg TIDWMEALS PO 03/04/25 12:00 04/20/25 12:42 1,334 MG Ergocalciferol 50,000 unit Q7D PO 03/04/25 11:45 04/15/25 14:30 50,000 UNIT Zirconium Oxide 10 gm TID PO 03/07/25 14:00 Cancel Sodium Bicarbonate 50 ml/ Sodium Chloride 1,050 ml @ 100 mls/hr [id number] IV 03/07/25 11:45 Cancel Pantoprazole Sodium 40 mg BID IV 03/13/25 10:00 04/20/25 10:23 40 MG Albuterol 2.5 mg Q6HR NEB 03/13/25 12:00 04/20/25 11:34 2.5 MG Ipratropium [place] 0.5 mg Q6HR NEB 03/13/25 12:00 04/20/25 11:34 0.5 MG Saccharomyces Boulardii 250 mg DAILY PO 03/14/25 10:00 04/20/25 10:23 250 MG Atorvastatin Calcium 80 mg HS PO 03/24/25 22:00 04/19/25 23:17 80 MG Aspirin 81 mg DAILY NG 03/25/25 10:00 04/20/25 10:23 81 MG Insulin Human Regular ACHS SC 03/30/25 22:00 04/20/25 11:39 2 UNITS Ondansetron HCl 4 mg Q8HP PRN PO 04/05/25 15:30 Fentanyl Citrate 250 ml @ 2.5 mls/hr Q24H IV 04/06/25 11:00 04/19/25 19:44 10 MLS/HR Norepinephrine Bitartrate 250 ml @ 3.75 mls/hr Q24H IV 04/08/25 02:30 04/08/25 02:37 3.75 MLS/HR Propofol 100 ml @ 2.232 mls/ hr Q24H IV 04/08/25 16:45 04/20/25 01:46 15.624 MLS/HR Enteral Nutritional Formula 1,000 ml 30ML/HR GT 04/15/25 08:45 04/19/25 12:17 1,000 ML Vancomycin HCl 0 ml @ 0 mls/hr UD IV 04/15/25 22:00 Hydralazine HCl 10 mg Q4HPRN PRN IV 04/16/25 16:00 04/18/25 06:11 10 MG Sodium Chloride 10 ml QSHIFT@10,22 IV 04/16/25 22:00 04/20/25 10:23 10 ML Acetaminophen/ Hydrocodone Bitart 1 tab Q6HP PRN PO 04/19/25 13:15 04/20/25 13:09 1 TAB objective GENERAL: Ill appearing, intubated on ventilator. EYES: PERRL, EOMI. Anicteric. HENT: Moist mucous membranes. LUNGS: Decreased breath sounds. CARDIOVASCULAR: Regular rate and rhythm. ABDOMEN: Soft, non-tender and non-distended. EXTREMITIES: No edema. SKIN: Warm, dry. laboratory and microbiology Laboratory Tests 04/20/25 06:35 Test 04/20/25 06:35 Range/Units Serum Glucose 124 H 74-106 mg/dL Problem List Multiple acute/subacute strokes. Hypokalemia. Acute kidney injury. Hypertension, newly diagnosed. Insulin-dependent diabetes mellitus. Status post right BKA. Dyslipidemia. Polysubstance use disorder. Left lower extremity cellulitis. Peripheral vascular disease status post right [id number] amputation 6 months ago. Sepsis. Diabetic neuropathy. Assessment/Plan Continued all current supportive medical care. Aspirin, Lipitor. IV antibiotics as ordered. GI prophylactics. IV Hydralazine for SBP > 150. Vasopressors for hemodynamic support. Additional plan as per the hospital course. Critical care time of 45 minutes provided to include time spent evaluation of patient at bedside, when appropriate patient/family education for diagnosis, treatment plan, review of pertinent medical information and discussion of care with specialty providers and PCP. Mechanical ventilator parameters, treatment and adjustments have personally been reviewed by me and treatment plan by investigation division lieutenant has also been reviewed. Dietary Evaluation Review Comments: 1) Esau 1 pk BID 2) Refer Assistant Manager Pt on DC 3) Continue current plan of care Expected Outcomes/Goals: Pt will meet >75% estimated needs Fu 3-5 days Plan discussed with: Other YANIRA WINN MD April 20, 2025 13:31
[2025-04-20] MEDS: HYDROmorphone HCL 2 MG/ML VL/or syr IV PRN (17:07)
[2025-04-20 19:01] LABS: Hematocrit 29.5 % (36.0-46.0); Hemoglobin 9.6 g/dL (12.2-16.2)
--- NOTE | 2025-04-20 23:06 | DVHPN2 ---
Consult Progress Note Date Seen: April 20, 2025 Subjective Patient reports: Other (tolerating tube feeds , no overt signs of bleeding . minimally tachycardic and a bit agitated , lethargic but is on sedation) Objective vital signs Vital Sign Date Time Temp Pulse Resp B/P (MAP) Pulse Ox O2 Delivery O2 Flow Rate FiO2 04/20/25 22:30 92 19 139/77 (97) 100 04/20/25 22:00 Mechanical Ventilator+ 30 30 04/20/25 20:00 97.9 97.9 Total Intake and Output 04/19/25 04/19/25 04/20/25 15:00 23:00 07:00 Intake Total 332.044 ml 551.688 ml 580.260 ml Output Total 450 ml 275 ml Balance 332.044 ml 101.688 ml 305.260 ml medications Current Medications Medications Dose Ordered Sig/John Route Start Time Stop Time Status Last Admin Dose Admin Acetaminophen 650 mg Q6HP PRN PO 02/19/25 13:45 03/09/25 21:36 650 MG Diagnostic Test (Pha) 1 strip ACHS 02/19/25 17:00 04/20/25 22:13 1 STRIP Dextrose 50 ml UD PRN IV 02/19/25 15:45 04/11/25 21:04 50 ML Potassium Chloride 100 ml @ 50 mls/hr Q2H IV 02/19/25 23:15 02/20/25 05:14 Cancel Potassium Chloride 100 ml @ 50 mls/hr Q2H IV 02/20/25 07:15 02/20/25 11:14 UNV Calcium Acetate 1,334 mg TIDWMEALS PO 03/04/25 12:00 04/20/25 17:06 1,334 MG Ergocalciferol 50,000 unit Q7D PO 03/04/25 11:45 04/15/25 14:30 50,000 UNIT Zirconium Oxide 10 gm TID PO 03/07/25 14:00 Cancel Sodium Bicarbonate 50 ml/ Sodium Chloride 1,050 ml @ 100 mls/hr [id number] IV 03/07/25 11:45 Cancel Pantoprazole Sodium 40 mg BID IV 03/13/25 10:00 04/20/25 22:12 40 MG Albuterol 2.5 mg Q6HR NEB 03/13/25 12:00 04/20/25 18:17 2.5 MG Ipratropium [place] 0.5 mg Q6HR NEB 03/13/25 12:00 04/20/25 18:17 0.5 MG Saccharomyces Boulardii 250 mg DAILY PO 03/14/25 10:00 04/20/25 10:23 250 MG Atorvastatin Calcium 80 mg HS PO 03/24/25 22:00 04/20/25 22:12 80 MG Aspirin 81 mg DAILY NG 03/25/25 10:00 04/20/25 10:23 81 MG Insulin Human Regular ACHS SC 03/30/25 22:00 04/20/25 11:39 2 UNITS Ondansetron HCl 4 mg Q8HP PRN PO 04/05/25 15:30 Fentanyl Citrate 250 ml @ 2.5 mls/hr Q24H IV 04/06/25 11:00 04/19/25 19:44 10 MLS/HR Norepinephrine Bitartrate 250 ml @ 3.75 mls/hr Q24H IV 04/08/25 02:30 04/08/25 02:37 3.75 MLS/HR Propofol 100 ml @ 2.232 mls/ hr Q24H IV 04/08/25 16:45 04/20/25 01:46 15.624 MLS/HR Enteral Nutritional Formula 1,000 ml 30ML/HR GT 04/15/25 08:45 04/19/25 12:17 1,000 ML Vancomycin HCl 0 ml @ 0 mls/hr UD IV 04/15/25 22:00 Hydralazine HCl 10 mg Q4HPRN PRN IV 04/16/25 16:00 04/20/25 15:48 10 MG Sodium Chloride 10 ml QSHIFT@10,22 IV 04/16/25 22:00 04/20/25 22:12 10 ML Acetaminophen/ Hydrocodone Bitart 1 tab Q6HP PRN PO 04/19/25 13:15 04/20/25 13:09 1 TAB Hydromorphone HCl 0.5 mg Q4HPRN PRN IV 04/20/25 16:30 04/20/25 17:07 0.5 MG laboratory and microbiology Laboratory Tests 04/20/25 18:51 04/20/25 06:35 Test 04/20/25 06:35 Range/Units Serum Glucose 124 H 74-106 mg/dL Problem List/Assessment/Plan Problems(with codes): (1) Intractable vomiting (2) Acute abdominal pain (3) Uncontrolled diabetes mellitus (4) UTI (urinary tract infection) (5) Sepsis (6) TATIANNA (acute kidney injury) (7) Substance abuse (8) Intractable abdominal pain Problem List/Assessment/Plan Pneumonia ESBL Klebsiella, Carbapenemic resistant Pseudomonas positive sputum culture , possible due to ventilator associated pneumonia Sepsis probably due to above Left patellar bursitis, I&D w bursectomy performed on 03/07/25 Left knee culture growing MSSA Left foot ulcer, dorsal aspect Multiple acute-subacute strokes Ruled out C diff colitis Hypokalemia TATIANNA on CKD Peripheral arterial disease s/p R BKA 6 months ago Type 2 diabetes, uncontrolled Diabetic neuropathy Angioedema of the tongue Patient is a 64 year old female with a past medical history of diabetes, left foot ulcer , hypertension , hyperlipidemia , anxiety , peripheral arterial disease , depression , presents with left sided weakness and mild dysarthria . Had a brain MRI revealing multiple small falsi of acute to subacute infarcts in the right coronary radiata and right basal ganglia. Underwent MAGALIS which showed no masses or vegetation . Bubble study was negative , valve restriction is normal . Patient was intubated on 03/13 and a rapid was called . Intubated due to airway protection and excavated on 03/26. but then shortly reintubated due to possible right lower lobe aspiration.Is now on 2 liters nasal canula and has left knee swelling ,erythema , cultures were growing MSSA , however on Clindamycin and irrigation and debridement of left patella on 03/07. She is noting having some diarrhea, with some left knee swelling persistent after debridement . Surgical roxanne are clean and left upper extremity swelling is noted . Crackles in the lungs and is tachycardic Assessment: 04/02:Patient is growing pseudomonas , ESBL klebsiella on sputum culture likely due to hospital acquired pneumonia. possible C diff colitis. As well as an MSSA left knee bursitis that has yet to be treated with appropriate antibiotics. Patient has peripheral arterial disease and right decay and uncontrolled diabetes 04/03: patient is doing better , diarrhea has significantly improved and tolerating antibiotics without any fevers or chills . Patient is a bit drowsy . Patient has some mild angioedema of the tongue . C diff testing is negative 04/04: Patient was seen by Dr Velasco and tolerating diet. Agree with Dr. Velasco findings . Not having any worsening diarrhea 04/05: having diarrhea with antibiotic therapy , most recent chest xray shows lung bases that are unremarkable. clinically stable and worsening confusion and immunity , possible aspiration 04/06: patient has ongoing diarrhea as potential source of worsening septic picture . Patient was found to be hypoxic and confused yesterday possible related to acute aspiration event and possible mucus plugging as patient also refused chest pt. 04/07: presser needs are coming down , suspect aspiration event 04/08: required blood transfusion for hemoglobin 6.9 , unclear if this is due to a real bleed and will continue to monitor for signs of bleeding . Chest xray shows cardiomegaly with mild signs of congestion . Head CT shows right posterior frontal periventricular white matter disease , likely subacute to few small old infacts bilateral basal gangular thats greater on the right side. Cultures are currently with moderate gram negative rods in the sputum and blood cultures are no growth to date 04/09: Culture continues to show moderate gram negative jw in the sputum , awaiting speciation . would be concerned [id number] is not being adequately treated for gram negative jw infection in the sputum previously . 04/10: having some diffuse wheezing in lungs likely contributing to acute hypoxia as well as the gram negative jw that is pending speciation 04/11: S/P trach and peg and tolerating feeds . growing medina resistant and carbon resistant ESBL . Klebsiella pneumonia in the lungs 04/12: tolerating antibiotics and not needing nay presser support , no signs of ongoing sepsis . chest xray shows stable pneumonia 04/13: tolerating antibiotics 04/14:peg tube feeding has been stalled and awaiting feeds . trach setting are stable and tachycardia is stable 04/15: awaiting Ltach placement , vancomycin troth have been therapeutic , tolerating antibiotics 04/16: whitecount is 15.8 , chest xray shows bibasilar etolectisis or pneumonia . patient has a piccline in place 04/17: s/p peg placement 04/18: normal bowel transmit seen on small bowel series 04/19: patient is getting a unit of blood , unclear of bleed source , possibly related to previous GI distension however general surgery has okayed patient to get started on tube feeds 04/20:hemoglobin is stable , tolerating tube feeds Plan: - Stop vancomycin due to tube feed toleration and switch to oral doxycyline 100mg 2x a day for an additional 7 days - monitor patient clinically for additional signs of infection however pneumonia appears resolved and knee infection appears significantly improved as well - defer to general surgery team for abdominal distension seen after s/p pegtube placement - defer to general surgery for management of abdominal distension and post surgical care - continue fetroja for 5-7 days - consider bronchoscopy and deeper sputum cultures and BAL culture if patient is to get a bronchoscopy to asses for airway clearance, defer to pulmonology on this - will fu on pending blood culture and urine culture and stool culture Authorized and Performed by: Katerine Hughes Total critical care time: Approximately 56 minutes Due to a high probability of clinically significant, life threatening deterioration, the patient required my highest level of preparedness to intervene emergently and I personally spent this critical care time directly and personally managing the patient. This critical care time included obtaining a history; examining the patient; pulse oximetry; ordering and review of studies; arranging urgent treatment with development of a management plan; evaluation of patient's response to treatment; frequent reassessment; and, discussions with other providers. This critical care time was performed to assess and manage the high probability of imminent, life-threatening deterioration that could result in multi-organ failure. It was exclusive of separately billable procedures and treating other patients and teaching time. Plan discussed with: Other Dietary Evaluation Review Comments: 1) Esau 1 pk BID 2) Refer Case Fitter on DC 3) Continue current plan of care Expected Outcomes/Goals: Pt will meet >75% estimated needs Fu 3-5 days KATERINE HUGHES MD April 20, 2025 23:06
[2025-04-21] VITALS (61 sets, daily range): BP systolic 112–194; BP diastolic 56–112; PULSE 88–115; RESP 10–28; TEMP 97.7–98.8; O2SAT 92–100
[2025-04-21 05:33] LABS: Basophils # (auto) 0.1 10 ^3/uL (0-0.2); Basophils % (auto) 0.5 % (0.0-2.0); Eosinophils # (auto) 0.1 10 ^3/uL (0-0.8); Eosinophils % (auto) 0.5 % (0.0-7.0); Hematocrit 28.6 % (36.0-46.0); Hemoglobin 9.3 g/dL (12.2-16.2); Lymphocytes # (auto) 1.1 10 ^3/uL (0.4-5.4); Mean Corpuscular Hgb Conc. 32.6 g/dL (32.0-36.0); Mean Corpuscular Volume 85.8 fL (80.0-100.0); Monocytes # (auto) 0.3 10 ^3/uL (0-1.3); Monocytes % (auto) 1.9 % (0.0-12.0); Neutrophils # (auto) 11.9 10 ^3/uL (1.6-8.6); Neutrophils % (auto) 89.1 % (37.0-80.0); Platelet Count (auto) 289 10^3/uL (140-450); Red Blood Cells 3.33 10^6/uL (4.0-5.20); Red Cell Distribution Width 17.1 % (11.8-14.3); White Blood Cell 13.3 10^3/uL (4.4-10.8)
[2025-04-21 05:44] LABS: Anion Gap 14 (5-15); BUN/Creatinine Ratio 19.7 (10.0-20.0); Magnesium 1.8 mg/dL (1.6-2.6); Sodium 145 mmol/L (136-145)
[2025-04-21 05:45] LABS: Aspartate Aminotransferase 14 U/L (13-40)
[2025-04-21 05:48] LABS: Alanine Aminotransferase < 9 U/L (7-40); Albumin 2.5 g/dL (3.2-4.8); Alkaline Phosphatase 281 U/L (46-116); Bilirubin, Total < 0.2 mg/dL (0.2-1.0); Blood Urea Nitrogen 23 mg/dL (9-23); Calcium 8.4 mg/dL (8.7-10.4); Carbon Dioxide 15 mmol/L (20-31); Chloride 116 mmol/L (98-107); Glucose 119 mg/dL (74-106); Potassium 3.3 mmol/L (3.5-5.1); Total Protein 5.4 g/dL (5.7-8.2)
--- NOTE | 2025-04-21 05:53 | DVH ---
INDICATION: ON VENTILATOR TECHNIQUE: Frontal view of the chest. COMPARISON: XY CHEST PORTABLE on DOS: 04/20/25, XY CHEST XRAY 1 VIEW on DOS: 04/18/25, XY CHEST PORTABL E on DOS: 04/15/25, XY CHEST XRAY 1 VIEW on DOS: 04/14/25, XY CHEST XRAY 1 VIEW on DOS: 04/11/25, XY OSIEL ST PORTABLE on DOS: 04/20/25 FINDINGS: LUNGS AND PLEURAL SPACES: Bibasilar atelectasis or pneumonia. No pneumothorax. HEART: Unremarkable. No cardiomegaly. MEDIASTINUM: Unremarkable. Normal mediastinal contour. BONES/JOINTS: Unremarkable. No acute fracture. TUBES, LINES AND DEVICES: Tracheostomy tube in satisfactory position. IMPRESSION: Bibasilar atelectasis or pneumonia.
--- NOTE | 2025-04-21 10:33 | DVHPN2 ---
Subjective Denies any symptoms Reviewed: Care Plan, H&P, Labs, Medications, Previous Orders, Radiology, Other (Consultations) Changes from previous H/P or p: No Changes General: Per HPI Objective Vitals Vital Signs Date Time Temp Pulse Resp B/P (MAP) Pulse Ox O2 Delivery O2 Flow Rate FiO2 04/21/25 09:46 99 18 150/81 (104) 98 30 04/21/25 08:00 Mechanical Ventilator+ 04/21/25 08:00 98.6 98.6 Intake/Output Intake and Output 04/21/25 07:00 Intake Total 1051.66 ml Output Total 2125 ml Balance -1073.34 ml IV Total 18.66 ml Tube Feeding 433 ml Blood Product 300 ml Other 300 ml Output Urine Total 2125 ml Exam Assess patient will sitting in her wheelchair. General Appearance: Alert, Cooperative, Other (Facial grimacing noted) HEENT: Atraumatic, PERRLA Neck: Other (Tracheostomy) Lungs: Clear to auscultation, Normal air movement, Other Cardiovascular: Regular rate, Normal S1, Normal S2 Abdomen: Normal bowel sounds, Soft, Other (No pain noted with palpation) Genitourinary: No Apparent Abnormalities, Other Extremities: Other Neuro: Cranial nerves 3-12 NL, Other Skin: Dry, Intact, Wounds Psych/Mental Status: Other Medications Current Medications Medications Dose Ordered Sig/John Route Start Time Stop Time Status Last Admin Dose Admin Acetaminophen 650 mg Q6HP PRN PO 02/19/25 13:45 03/09/25 21:36 650 MG Diagnostic Test (Pha) 1 strip ACHS 02/19/25 17:00 04/21/25 07:00 1 STRIP Dextrose 50 ml UD PRN IV 02/19/25 15:45 04/11/25 21:04 50 ML Potassium Chloride 100 ml @ 50 mls/hr Q2H IV 02/19/25 23:15 02/20/25 05:14 Cancel Potassium Chloride 100 ml @ 50 mls/hr Q2H IV 02/20/25 07:15 02/20/25 11:14 UNV Calcium Acetate 1,334 mg TIDWMEALS PO 03/04/25 12:00 04/21/25 09:07 1,334 MG Ergocalciferol 50,000 unit Q7D PO 03/04/25 11:45 04/15/25 14:30 50,000 UNIT Zirconium Oxide 10 gm TID PO 03/07/25 14:00 Cancel Sodium Bicarbonate 50 ml/ Sodium Chloride 1,050 ml @ 100 mls/hr [id number] IV 03/07/25 11:45 Cancel Pantoprazole Sodium 40 mg BID IV 03/13/25 10:00 04/21/25 09:07 40 MG Albuterol 2.5 mg Q6HR NEB 03/13/25 12:00 04/21/25 06:02 2.5 MG Ipratropium [place] 0.5 mg Q6HR NEB 03/13/25 12:00 04/21/25 06:02 0.5 MG Saccharomyces Boulardii 250 mg DAILY PO 03/14/25 10:00 04/21/25 09:08 250 MG Atorvastatin Calcium 80 mg HS PO 03/24/25 22:00 04/20/25 22:12 80 MG Aspirin 81 mg DAILY NG 03/25/25 10:00 04/21/25 09:08 81 MG Insulin Human Regular ACHS SC 03/30/25 22:00 04/20/25 11:39 2 UNITS Ondansetron HCl 4 mg Q8HP PRN PO 04/05/25 15:30 Fentanyl Citrate 250 ml @ 2.5 mls/hr Q24H IV 04/06/25 11:00 04/19/25 19:44 10 MLS/HR Norepinephrine Bitartrate 250 ml @ 3.75 mls/hr Q24H IV 04/08/25 02:30 04/08/25 02:37 3.75 MLS/HR Propofol 100 ml @ 2.232 mls/ hr Q24H IV 04/08/25 16:45 04/20/25 01:46 15.624 MLS/HR Enteral Nutritional Formula 1,000 ml 30ML/HR GT 04/15/25 08:45 04/19/25 12:17 1,000 ML Vancomycin HCl 0 ml @ 0 mls/hr UD IV 04/15/25 22:00 Hydralazine HCl 10 mg Q4HPRN PRN IV 04/16/25 16:00 04/21/25 07:43 10 MG Sodium Chloride 10 ml QSHIFT@10,22 IV 04/16/25 22:00 04/21/25 09:08 10 ML Acetaminophen/ Hydrocodone Bitart 1 tab Q6HP PRN PO 04/19/25 13:15 04/20/25 13:09 1 TAB Hydromorphone HCl 0.5 mg Q4HPRN PRN IV 04/20/25 16:30 04/21/25 05:48 0.5 MG Laboratory Results Laboratory Tests 04/21/25 05:00 Chemistry Test 04/21/25 05:00 Albumin 2.5 g/dL (3.2-4.8) L Calcium Level 8.4 mg/dL (8.7-10.4) L Magnesium Level 1.8 mg/dL (1.6-2.6) Total Protein 5.4 g/dL (5.7-8.2) L LFT Test 04/21/25 05:00 Alanine Aminotransferase (ALT) < 9 U/L (7-40) Alkaline Phosphatase 281 U/L (46-116) H Aspartate Amino Transferase (AST) 14 U/L (13-40) Total Bilirubin < 0.2 mg/dL (0.2-1.0) L Urinalysis Test 02/19/25 17:27 03/04/25 05:00 Urine Color Colorless (Yellow) Urine Clarity Clear (Clear) Urine pH 6.5 (5.0-9.0) Urine Specific [place] 1.008 (1.001-1.035) Urine Protein 2+ (Negative) H Urine Ketones 1+ (Negative) H Urine Blood 1+ /uL (Negative) H Urine Nitrite Negative (Negative) Urine Bilirubin Negative (Negative) Urine Urobilinogen Normal mg/dL (Negative) Urine Leukocyte Esterase Negative /uL (Negative) Urine RBC 6 /hpf (0 - 4) Urine Microscopic WBC 2 /HPF (0-5) Urine Squamous Epithelial Cells Few /hpf (<5) Urine Bacteria None seen /hpf (None Seen) Urine Glucose 2+ mg/dL (Normal) H Urine Creatinine 25.51 mg/dL (30.0-125.0) L Urine Protein/Creatinine Ratio 14.00 Urine Sodium 80 mmol/L (40-220) Urine Total Protein 357.1 mg/dL (1-14) H Microbiology Microbiology Date/Time Source Procedure Growth Status 04/06/25 20:35 Blood Blood Culture - Final NO GROWTH AFTER 5 DAYS OF INCUBATION. Complete 04/06/25 10:20 Sputum Gram Stain - Final Complete 04/06/25 10:20 Respiratory Culture - Final Klebsiella pneumoniae - ESBL Complete 04/02/25 13:00 Stool Clostridium difficile Toxin Assay - Final Complete 03/06/25 14:37 Knee Left Gram Stain - Final Complete 03/06/25 14:37 Knee Left Anaerobic Culture - Final Complete 03/06/25 14:37 Aerobic Culture - Final Staphylococcus aureus Complete 03/04/25 13:29 Aspirate Gram Stain - Final Complete 03/04/25 13:29 Body Fluid Culture - Final Staphylococcus aureus Complete 02/19/25 17:27 Urine - [place] Urine Culture - Final Complete Labs and/or images reviewed: Labs reviewed by me, Image(s) reviewed by me Assessment/Plan Assessment/Plan Impression: Multiple acute/subacute strokes Left lower extremity cellulitis Rule out left septic knee Hypokalemia Acute kidney injury likely hemodynamically mediated due to vasomotor nephropathy Chronic kidney disease Peripheral vascular disease status post right [id number] amputation 6 months ago Poorly controlled type 2 diabetes Sepsis Hypertension Mixed hyperlipidemia Polysubstance use disorder Diabetic neuropathy -? Suicidal ideation -septic bursitis with Staphylococcus aureus -septic shock Angioedema of the tongue -hyponatremia -patient with ESBL and CRE in the sputum -cardiac arrest Plan: -events: Patient had small-bowel follow-through with Gastrografin with no noted extravasation. Cleared by surgery to restart using G-tube. Patient was placed on trach collar today, short duration with noted hypoxia. Patient placed back on mechanical ventilation. -social service consultation: Continue with efforts to transfer to long-term acute care -continue antibiotics per ID -hold tube feedings -continue sedation for RASS negative three -hold anticoagulants -PUD prophylaxis -bronchodilators -continue PPI Repeat labs and chest x-ray in a.m. -pending transfer to LTAC Critical care time spent with patient discussing and formulating plan of care: 90 minutes. This does not include time spent performing procedures. This medical document was created using an electronic medical record system with [employer] system. Although this document has been carefully reviewed, there may still be some phonetic and typographical errors. These areas are purely typographical due to imperfections of the software programs, and do not reflect any compromise in the patient's medical care. Plan discussed with: Patient, Other (RN) My Orders Orders - JUSTIN BONILLA NP Procedure Category Date Status Time Magnesium Sulfate PHA 04/21/25 Logged 1gm/100ml 10:30 Basic Metabolic Panel LAB 04/22/25 Verified 04:00 Complete Blood Count LAB 04/22/25 Verified 04:00 Date of Service: April 21, 2025 Billing Provider: JUSTIN BONILLA NP Common Visit Codes: 71011-[id number] CARE 30-74 MIN JUSTIN BONILLA NP April 21, 2025 10:33
[2025-04-21] MEDS ORDERED: VANCOMYCIN 500mg/100mL 100 ML IV ONE (10:45)
[2025-04-21] MEDS: POTASSIUM EFFERVESENT TAB 25 MEQ GT ONE (10:53)
[2025-04-21] MEDS: MAGNESIUM SULFATE 1GM/100ML 100 ML IV ONE (10:54)
--- NOTE | 2025-04-21 16:11 | DVHPN2 ---
Progress Note - Dictate Date Seen: April 21, 2025 Medical Necessity Reason Pt with a Central, PICC or Fol: Yes The following are medically ne: Acosta Catheter Reason for acosta catheter: Strict I&O vital signs Vital Sign Date Time Temp Pulse Resp B/P (MAP) Pulse Ox O2 Delivery O2 Flow Rate FiO2 04/21/25 16:00 30 04/21/25 16:00 98.2 101 22 147/90 (109) 95 98.2 04/21/25 14:00 Mechanical Ventilator+ Total Intake and Output 04/20/25 04/20/25 04/21/25 15:00 23:00 07:00 Intake Total 618.66 ml 289 ml 144 ml Output Total 750 ml 1375 ml Balance 618.66 ml -461 ml -1231 ml medications Current Medications Medications Dose Ordered Sig/John Route Start Time Stop Time Status Last Admin Dose Admin Acetaminophen 650 mg Q6HP PRN PO 02/19/25 13:45 03/09/25 21:36 650 MG Diagnostic Test (Pha) 1 strip ACHS 02/19/25 17:00 04/21/25 11:45 1 STRIP Dextrose 50 ml UD PRN IV 02/19/25 15:45 04/11/25 21:04 50 ML Potassium Chloride 100 ml @ 50 mls/hr Q2H IV 02/19/25 23:15 02/20/25 05:14 Cancel Potassium Chloride 100 ml @ 50 mls/hr Q2H IV 02/20/25 07:15 02/20/25 11:14 UNV Calcium Acetate 1,334 mg TIDWMEALS PO 03/04/25 12:00 04/21/25 11:55 1,334 MG Ergocalciferol 50,000 unit Q7D PO 03/04/25 11:45 04/15/25 14:30 50,000 UNIT Zirconium Oxide 10 gm TID PO 03/07/25 14:00 Cancel Sodium Bicarbonate 50 ml/ Sodium Chloride 1,050 ml @ 100 mls/hr [id number] IV 03/07/25 11:45 Cancel Pantoprazole Sodium 40 mg BID IV 03/13/25 10:00 04/21/25 09:07 40 MG Albuterol 2.5 mg Q6HR NEB 03/13/25 12:00 04/21/25 11:29 2.5 MG Ipratropium [place] 0.5 mg Q6HR NEB 03/13/25 12:00 04/21/25 11:29 0.5 MG Saccharomyces Boulardii 250 mg DAILY PO 03/14/25 10:00 04/21/25 09:08 250 MG Atorvastatin Calcium 80 mg HS PO 03/24/25 22:00 04/20/25 22:12 80 MG Aspirin 81 mg DAILY NG 03/25/25 10:00 04/21/25 09:08 81 MG Insulin Human Regular ACHS SC 03/30/25 22:00 04/21/25 11:54 3 UNITS Ondansetron HCl 4 mg Q8HP PRN PO 04/05/25 15:30 Fentanyl Citrate 250 ml @ 2.5 mls/hr Q24H IV 04/06/25 11:00 04/19/25 19:44 10 MLS/HR Norepinephrine Bitartrate 250 ml @ 3.75 mls/hr Q24H IV 04/08/25 02:30 04/08/25 02:37 3.75 MLS/HR Propofol 100 ml @ 2.232 mls/ hr Q24H IV 04/08/25 16:45 04/20/25 01:46 15.624 MLS/HR Enteral Nutritional Formula 1,000 ml 30ML/HR GT 04/15/25 08:45 04/21/25 11:55 1,000 ML Vancomycin HCl 0 ml @ 0 mls/hr UD IV 04/15/25 22:00 Cancel Hydralazine HCl 10 mg Q4HPRN PRN IV 04/16/25 16:00 04/21/25 07:43 10 MG Sodium Chloride 10 ml QSHIFT@10,22 IV 04/16/25 22:00 04/21/25 09:08 10 ML Acetaminophen/ Hydrocodone Bitart 1 tab Q6HP PRN PO 04/19/25 13:15 04/20/25 13:09 1 TAB Hydromorphone HCl 0.5 mg Q4HPRN PRN IV 04/20/25 16:30 04/21/25 05:48 0.5 MG Doxycycline Monohydrate 100 mg Q12HR PO 04/21/25 22:00 laboratory and microbiology Laboratory Tests 04/21/25 05:00 Test 5/26/25 05:00 Range/Units Serum Glucose 119 H 74-106 mg/dL Assessment/Plan Impression Acute hypoxemic respiratory failure Altered mental status Hx of CVA Sepsis Patient seen and examined in ICU Events S/p tracheostomy Was able to tolerate trach collar for 15 minutes Transitioned back to mechanical ventilation Labs and imaging reviewed ABG reviewed Management Vent support as needed Titrate to maintain sats 90% or above Trach care per RT protocol Trach collar trials daily Continue antibiotics F/u cultures Bronchodilators Monitor renal function Monitor electrolytes Supplement as needed Pain control Avoid oversedation DVT prophylaxis Critical care time 35 minutes Dietary Evaluation Review Comments: 1) Esau 1 pk BID 2) Refer Box Chipper on DC 3) Continue current plan of care Expected Outcomes/Goals: Pt will meet >75% estimated needs Fu 3-5 days Plan discussed with: Other (Rn) ARUNA BRISENO MD April 21, 2025 16:11
--- NOTE | 2025-04-21 21:50 | DVHPN2 ---
Consult Progress Note Date Seen: April 21, 2025 Subjective Patient reports: Other (unable to tolerate trach colar , getting hypoxic and put back on vent after trach colar trial .a gitated and requiring deloded and sedation to stay calm . abdomen is mildly distended ) Objective vital signs Vital Sign Date Time Temp Pulse Resp B/P (MAP) Pulse Ox O2 Delivery O2 Flow Rate FiO2 04/21/25 20:21 109 18 112/68 (83) 99 30 04/21/25 20:01 98.8 98.8 04/21/25 20:00 Mechanical Ventilator+ Total Intake and Output 04/20/25 04/20/25 04/21/25 15:00 23:00 07:00 Intake Total 618.66 ml 289 ml 144 ml Output Total 750 ml 1375 ml Balance 618.66 ml -461 ml -1231 ml medications Current Medications Medications Dose Ordered Sig/John Route Start Time Stop Time Status Last Admin Dose Admin Acetaminophen 650 mg Q6HP PRN PO 02/19/25 13:45 03/09/25 21:36 650 MG Diagnostic Test (Pha) 1 strip ACHS 02/19/25 17:00 04/21/25 17:33 1 STRIP Dextrose 50 ml UD PRN IV 02/19/25 15:45 04/11/25 21:04 50 ML Potassium Chloride 100 ml @ 50 mls/hr Q2H IV 02/19/25 23:15 02/20/25 05:14 Cancel Potassium Chloride 100 ml @ 50 mls/hr Q2H IV 02/20/25 07:15 02/20/25 11:14 UNV Calcium Acetate 1,334 mg TIDWMEALS PO 03/04/25 12:00 04/21/25 17:41 1,334 MG Ergocalciferol 50,000 unit Q7D PO 03/04/25 11:45 04/15/25 14:30 50,000 UNIT Zirconium Oxide 10 gm TID PO 03/07/25 14:00 Cancel Sodium Bicarbonate 50 ml/ Sodium Chloride 1,050 ml @ 100 mls/hr [id number] IV 03/07/25 11:45 Cancel Pantoprazole Sodium 40 mg BID IV 03/13/25 10:00 04/21/25 09:07 40 MG Albuterol 2.5 mg Q6HR NEB 03/13/25 12:00 04/21/25 18:27 2.5 MG Ipratropium [place] 0.5 mg Q6HR NEB 03/13/25 12:00 04/21/25 18:27 0.5 MG Saccharomyces Boulardii 250 mg DAILY PO 03/14/25 10:00 04/21/25 09:08 250 MG Atorvastatin Calcium 80 mg HS PO 03/24/25 22:00 04/20/25 22:12 80 MG Aspirin 81 mg DAILY NG 03/25/25 10:00 04/21/25 09:08 81 MG Insulin Human Regular ACHS SC 03/30/25 22:00 04/21/25 11:54 3 UNITS Ondansetron HCl 4 mg Q8HP PRN PO 04/05/25 15:30 Fentanyl Citrate 250 ml @ 2.5 mls/hr Q24H IV 04/06/25 11:00 04/19/25 19:44 10 MLS/HR Norepinephrine Bitartrate 250 ml @ 3.75 mls/hr Q24H IV 04/08/25 02:30 04/08/25 02:37 3.75 MLS/HR Propofol 100 ml @ 2.232 mls/ hr Q24H IV 04/08/25 16:45 04/20/25 01:46 15.624 MLS/HR Enteral Nutritional Formula 1,000 ml 30ML/HR GT 04/15/25 08:45 04/21/25 11:55 1,000 ML Vancomycin HCl 0 ml @ 0 mls/hr UD IV 04/15/25 22:00 Cancel Hydralazine HCl 10 mg Q4HPRN PRN IV 04/16/25 16:00 04/21/25 17:42 10 MG Sodium Chloride 10 ml QSHIFT@10,22 IV 04/16/25 22:00 04/21/25 09:08 10 ML Acetaminophen/ Hydrocodone Bitart 1 tab Q6HP PRN PO 04/19/25 13:15 04/20/25 13:09 1 TAB Hydromorphone HCl 0.5 mg Q4HPRN PRN IV 04/20/25 16:30 04/21/25 05:48 0.5 MG Doxycycline Monohydrate 100 mg Q12HR PO 04/21/25 22:00 laboratory and microbiology Laboratory Tests 04/21/25 05:00 Test 04/21/25 05:00 Range/Units Serum Glucose 119 H 74-106 mg/dL Problem List/Assessment/Plan Problems(with codes): (1) Intractable vomiting (2) Acute abdominal pain (3) Uncontrolled diabetes mellitus (4) UTI (urinary tract infection) (5) Sepsis (6) TATIANNA (acute kidney injury) (7) Substance abuse Problem List/Assessment/Plan Pneumonia ESBL Klebsiella, Carbapenemic resistant Pseudomonas positive sputum culture , possible due to ventilator associated pneumonia Sepsis probably due to above Left patellar bursitis, I&D w bursectomy performed on 03/07/25 Left knee culture growing MSSA Left foot ulcer, dorsal aspect Multiple acute-subacute strokes Ruled out C diff colitis Hypokalemia TATIANNA on CKD Peripheral arterial disease s/p R BKA 6 months ago Type 2 diabetes, uncontrolled Diabetic neuropathy Angioedema of the tongue Patient is a 64 year old female with a past medical history of diabetes, left foot ulcer , hypertension , hyperlipidemia , anxiety , peripheral arterial disease , depression , presents with left sided weakness and mild dysarthria . Had a brain MRI revealing multiple small falsi of acute to subacute infarcts in the right coronary radiata and right basal ganglia. Underwent MAGALIS which showed no masses or vegetation . Bubble study was negative , valve restriction is normal . Patient was intubated on 03/13 and a rapid was called . Intubated due to airway protection and excavated on 03/26. but then shortly reintubated due to possible right lower lobe aspiration.Is now on 2 liters nasal canula and has left knee swelling ,erythema , cultures were growing MSSA , however on Clindamycin and irrigation and debridement of left patella on 03/07. She is noting having some diarrhea, with some left knee swelling persistent after debridement . Surgical roxanne are clean and left upper extremity swelling is noted . Crackles in the lungs and is tachycardic Assessment: 04/02:Patient is growing pseudomonas , ESBL klebsiella on sputum culture likely due to hospital acquired pneumonia. possible C diff colitis. As well as an MSSA left knee bursitis that has yet to be treated with appropriate antibiotics. Patient has peripheral arterial disease and right decay and uncontrolled diabetes 04/03: patient is doing better , diarrhea has significantly improved and tolerating antibiotics without any fevers or chills . Patient is a bit drowsy . Patient has some mild angioedema of the tongue . C diff testing is negative 04/04: Patient was seen by Dr Velasco and tolerating diet. Agree with Dr. Velasco findings . Not having any worsening diarrhea 04/05: having diarrhea with antibiotic therapy , most recent chest xray shows lung bases that are unremarkable. clinically stable and worsening confusion and immunity , possible aspiration 04/06: patient has ongoing diarrhea as potential source of worsening septic picture . Patient was found to be hypoxic and confused yesterday possible related to acute aspiration event and possible mucus plugging as patient also refused chest pt. 04/07: presser needs are coming down , suspect aspiration event 04/08: required blood transfusion for hemoglobin 6.9 , unclear if this is due to a real bleed and will continue to monitor for signs of bleeding . Chest xray shows cardiomegaly with mild signs of congestion . Head CT shows right posterior frontal periventricular white matter disease , likely subacute to few small old infacts bilateral basal gangular thats greater on the right side. Cultures are currently with moderate gram negative rods in the sputum and blood cultures are no growth to date 04/09: Culture continues to show moderate gram negative jw in the sputum , awaiting speciation . would be concerned [id number] is not being adequately treated for gram negative jw infection in the sputum previously . 04/10: having some diffuse wheezing in lungs likely contributing to acute hypoxia as well as the gram negative jw that is pending speciation 04/11: S/P trach and peg and tolerating feeds . growing medina resistant and carbon resistant ESBL . Klebsiella pneumonia in the lungs 04/12: tolerating antibiotics and not needing nay presser support , no signs of ongoing sepsis . chest xray shows stable pneumonia 04/13: tolerating antibiotics 04/14:peg tube feeding has been stalled and awaiting feeds . trach setting are stable and tachycardia is stable 04/15: awaiting Ltach placement , vancomycin troth have been therapeutic , tolerating antibiotics 04/16: whitecount is 15.8 , chest xray shows bibasilar etolectisis or pneumonia . patient has a piccline in place 04/17: s/p peg placement 04/18: normal bowel transmit seen on small bowel series 04/19: patient is getting a unit of blood , unclear of bleed source , possibly related to previous GI distension however general surgery has okayed patient to get started on tube feeds 04/20:hemoglobin is stable , tolerating tube feeds 04/21: tolerating trickle feeds and oral antibiotic therapy . knee appears nontender with a good healed scar Plan: - Stop vancomycin due to tube feed toleration and switch to oral doxycyline 100mg 2x a day for an additional 7 days - monitor patient clinically for additional signs of infection however pneumonia appears resolved and knee infection appears significantly improved as well - defer to general surgery team for abdominal distension seen after s/p pegtube placement - defer to general surgery for management of abdominal distension and post surgical care - continue fetroja for 5-7 days - consider bronchoscopy and deeper sputum cultures and BAL culture if patient is to get a bronchoscopy to asses for airway clearance, defer to pulmonology on this - will fu on pending blood culture and urine culture and stool culture Authorized and Performed by: Katerine Hughes Total critical care time: Approximately 56 minutes Due to a high probability of clinically significant, life threatening deterioration, the patient required my highest level of preparedness to intervene emergently and I personally spent this critical care time directly and personally managing the patient. This critical care time included obtaining a history; examining the patient; pulse oximetry; ordering and review of studies; arranging urgent treatment with development of a management plan; evaluation of patient's response to treatment; frequent reassessment; and, discussions with other providers. This critical care time was performed to assess and manage the high probability of imminent, life-threatening deterioration that could result in multi-organ failure. It was exclusive of separately billable procedures and treating other patients and teaching time. Plan discussed with: Other Dietary Evaluation Review Comments: 1) Esau 1 pk BID 2) Refer Immunologist on DC 3) Continue current plan of care Expected Outcomes/Goals: Pt will meet >75% estimated needs Fu 3-5 days KATERINE HUGHES MD April 21, 2025 21:50
[2025-04-21] MEDS: DOXYCYCLINE 100 MG TAB/CAP PO SCH (21:59)
--- NOTE | 2025-04-21 23:53 | DVHPN2 ---
Progress Note - Dictate Date Seen: April 21, 2025 Medical Necessity Reason Pt with a Central, PICC or Fol: Yes The following are medically ne: Acosta Catheter Reason for acosta catheter: Strict I&O Subjective Patient was seen and evaluated in follow up in the ICU. Patient is intubated and sedated on ventilator. FiO2 30%. Patients electrolytes were replaced. WBC 13.3, HGB 9.3, HCT 28.6, K 3.3, ALK PHOS 281. Stool occult blood is negative. vital signs Vital Sign Date Time Temp Pulse Resp B/P (MAP) Pulse Ox O2 Delivery O2 Flow Rate FiO2 04/21/25 23:00 99 19 144/83 (103) 100 04/21/25 22:43 30 04/21/25 22:00 Mechanical Ventilator+ 04/21/25 20:01 98.8 98.8 Total Intake and Output 04/20/25 04/20/25 04/21/25 15:00 23:00 07:00 Intake Total 618.66 ml 289 ml 144 ml Output Total 750 ml 1375 ml Balance 618.66 ml -461 ml -1231 ml medications Current Medications Medications Dose Ordered Sig/John Route Start Time Stop Time Status Last Admin Dose Admin Acetaminophen 650 mg Q6HP PRN PO 02/19/25 13:45 03/09/25 21:36 650 MG Diagnostic Test (Pha) 1 strip ACHS 02/19/25 17:00 04/21/25 22:00 1 STRIP Dextrose 50 ml UD PRN IV 02/19/25 15:45 04/11/25 21:04 50 ML Potassium Chloride 100 ml @ 50 mls/hr Q2H IV 02/19/25 23:15 02/20/25 05:14 Cancel Potassium Chloride 100 ml @ 50 mls/hr Q2H IV 02/20/25 07:15 02/20/25 11:14 UNV Calcium Acetate 1,334 mg TIDWMEALS PO 03/04/25 12:00 04/21/25 17:41 1,334 MG Ergocalciferol 50,000 unit Q7D PO 03/04/25 11:45 04/15/25 14:30 50,000 UNIT Zirconium Oxide 10 gm TID PO 03/07/25 14:00 Cancel Sodium Bicarbonate 50 ml/ Sodium Chloride 1,050 ml @ 100 mls/hr [id number] IV 03/07/25 11:45 Cancel Pantoprazole Sodium 40 mg BID IV 03/13/25 10:00 04/21/25 21:56 40 MG Albuterol 2.5 mg Q6HR NEB 03/13/25 12:00 04/21/25 18:27 2.5 MG Ipratropium [place] 0.5 mg Q6HR NEB 03/13/25 12:00 04/21/25 18:27 0.5 MG Saccharomyces Boulardii 250 mg DAILY PO 03/14/25 10:00 04/21/25 09:08 250 MG Atorvastatin Calcium 80 mg HS PO 03/24/25 22:00 04/21/25 21:59 80 MG Aspirin 81 mg DAILY NG 03/25/25 10:00 04/21/25 09:08 81 MG Insulin Human Regular ACHS SC 03/30/25 22:00 04/21/25 11:54 3 UNITS Ondansetron HCl 4 mg Q8HP PRN PO 04/05/25 15:30 Fentanyl Citrate 250 ml @ 2.5 mls/hr Q24H IV 04/06/25 11:00 04/19/25 19:44 10 MLS/HR Norepinephrine Bitartrate 250 ml @ 3.75 mls/hr Q24H IV 04/08/25 02:30 04/08/25 02:37 3.75 MLS/HR Propofol 100 ml @ 2.232 mls/ hr Q24H IV 04/08/25 16:45 04/20/25 01:46 15.624 MLS/HR Enteral Nutritional Formula 1,000 ml 30ML/HR GT 04/15/25 08:45 04/21/25 11:55 1,000 ML Vancomycin HCl 0 ml @ 0 mls/hr UD IV 04/15/25 22:00 Cancel Hydralazine HCl 10 mg Q4HPRN PRN IV 04/16/25 16:00 04/21/25 17:42 10 MG Sodium Chloride 10 ml QSHIFT@10,22 IV 04/16/25 22:00 04/21/25 21:59 10 ML Acetaminophen/ Hydrocodone Bitart 1 tab Q6HP PRN PO 04/19/25 13:15 04/20/25 13:09 1 TAB Hydromorphone HCl 0.5 mg Q4HPRN PRN IV 04/20/25 16:30 04/21/25 05:48 0.5 MG Doxycycline Monohydrate 100 mg Q12HR PO 04/21/25 22:00 04/21/25 21:59 100 MG objective GENERAL: Ill appearing, intubated on ventilator. EYES: PERRL, EOMI. Anicteric. HENT: Moist mucous membranes. LUNGS: Decreased breath sounds. CARDIOVASCULAR: Regular rate and rhythm. ABDOMEN: Soft, non-tender and non-distended. EXTREMITIES: No edema. SKIN: Warm, dry. laboratory and microbiology Laboratory Tests 04/21/25 05:00 Test 04/21/25 05:00 Range/Units Serum Glucose 119 H 74-106 mg/dL Problem List Multiple acute/subacute strokes. Hypokalemia. Acute kidney injury. Hypertension, newly diagnosed. Insulin-dependent diabetes mellitus. Status post right BKA. Dyslipidemia. Polysubstance use disorder. Left lower extremity cellulitis. Peripheral vascular disease status post right [id number] amputation 6 months ago. Sepsis. Diabetic neuropathy. Assessment/Plan Continued all current supportive medical care. Aspirin, Lipitor. IV antibiotics as ordered. GI prophylactics. IV Hydralazine for SBP > 150. Vasopressors for hemodynamic support. Additional plan as per the hospital course. Critical care time of 45 minutes provided to include time spent evaluation of patient at bedside, when appropriate patient/family education for diagnosis, treatment plan, review of pertinent medical information and discussion of care with specialty providers and PCP. Mechanical ventilator parameters, treatment and adjustments have personally been reviewed by me and treatment plan by locum tenens has also been reviewed. Dietary Evaluation Review Comments: 1) Esau 1 pk BID 2) Refer [employer] on DC 3) Continue current plan of care Expected Outcomes/Goals: Pt will meet >75% estimated needs Fu 3-5 days Plan discussed with: Other YANIRA WINN MD April 21, 2025 23:53
[2025-04-22] VITALS (55 sets, daily range): BP systolic 120–201; BP diastolic 78–114; PULSE 76–107; RESP 10–26; TEMP 97.7–98.8; O2SAT 96–100
--- NOTE | 2025-04-22 04:25 | DVH ---
INDICATION: ON VENTILATOR TECHNIQUE: Frontal view of the chest. COMPARISON: XY CHEST PORTABLE on DOS: 04/21/25, XY CHEST PORTABLE on DOS: 04/20/25, XY CHEST XRAY 1 VIE W on DOS: 04/18/25, XY CHEST PORTABLE on DOS: 04/15/25, XY CHEST XRAY 1 VIEW on DOS: 04/14/25, XY CHEST PORTABLE on DOS: 04/21/25 FINDINGS: LUNGS AND PLEURAL SPACES: Bibasilar atelectasis or pneumonia. No pneumothorax. HEART: Unremarkable. No cardiomegaly. MEDIASTINUM: Unremarkable. Normal mediastinal contour. BONES/JOINTS: Unremarkable. No acute fracture. TUBES, LINES AND DEVICES: Tracheostomy tube in satisfactory position. IMPRESSION: Bibasilar atelectasis or pneumonia.
[2025-04-22 05:04] LABS: Basophils # (auto) 0 10 ^3/uL (0-0.2); Basophils % (auto) 0.2 % (0.0-2.0); Eosinophils # (auto) 0 10 ^3/uL (0-0.8); Eosinophils % (auto) 0.3 % (0.0-7.0); Hematocrit 26.5 % (36.0-46.0); Hemoglobin 8.8 g/dL (12.2-16.2); Lymphocytes # (auto) 1.1 10 ^3/uL (0.4-5.4); Lymphocytes % (auto) 9.3 % (10.0-50.0); Mean Corpuscular Hemoglobin 28.2 pg (28.0-32.0); Mean Corpuscular Volume 85.5 fL (80.0-100.0); Monocytes # (auto) 0.3 10 ^3/uL (0-1.3); Monocytes % (auto) 2.1 % (0.0-12.0); Neutrophils # (auto) 10.8 10 ^3/uL (1.6-8.6); Neutrophils % (auto) 88.1 % (37.0-80.0); Platelet Count (auto) 274 10^3/uL (140-450); Red Cell Distribution Width 17.8 % (11.8-14.3); White Blood Cell 12.3 10^3/uL (4.4-10.8)
[2025-04-22 05:14] LABS: Sodium 144 mmol/L (136-145)
[2025-04-22 05:15] LABS: Anion Gap 13 (5-15)
[2025-04-22 05:20] LABS: BUN/Creatinine Ratio 20.4 (10.0-20.0); Blood Urea Nitrogen 22 mg/dL (9-23)
[2025-04-22 05:33] LABS: Calcium 8.3 mg/dL (8.7-10.4); Carbon Dioxide 16 mmol/L (20-31); Chloride 115 mmol/L (98-107); Glucose 147 mg/dL (74-106); Potassium 3.2 mmol/L (3.5-5.1)
[2025-04-22] MEDS: POTASSIUM EFFERVESENT TAB 25 MEQ GT ONE (06:42)
--- NOTE | 2025-04-22 09:56 | DVHPN2 ---
Subjective Denies any symptoms Reviewed: Care Plan, H&P, Labs, Medications, Previous Orders, Radiology, Other (Consultations) Changes from previous H/P or p: No Changes General: Per HPI Objective Vitals Vital Signs Date Time Temp Pulse Resp B/P (MAP) Pulse Ox O2 Delivery O2 Flow Rate FiO2 04/22/25 08:30 101 22 147/99 (115) 100 04/22/25 08:00 98.8 98.8 04/22/25 08:00 Mechanical Ventilator+ 30 30 Intake/Output Intake and Output 04/22/25 07:00 Intake Total 828 ml Output Total 2675 ml Balance -1847 ml Intake Oral 550 ml IV Total 100 ml Tube Feeding 178 ml Output Urine Total 2675 ml # Bowel Movements 2 Exam Assess patient will sitting in her wheelchair. General Appearance: Alert, Cooperative, Other HEENT: Atraumatic, PERRLA Neck: Other Lungs: Clear to auscultation, Normal air movement, Other Cardiovascular: Regular rate, Normal S1, Normal S2 Abdomen: Normal bowel sounds, Soft, Other Genitourinary: No Apparent Abnormalities, Other Extremities: Other Neuro: Cranial nerves 3-12 NL, Other Skin: Dry, Intact, Wounds Psych/Mental Status: Other Medications Current Medications Medications Dose Ordered Sig/John Route Start Time Stop Time Status Last Admin Dose Admin Acetaminophen 650 mg Q6HP PRN PO 02/19/25 13:45 03/09/25 21:36 650 MG Diagnostic Test (Pha) 1 strip ACHS 02/19/25 17:00 04/22/25 06:42 1 STRIP Dextrose 50 ml UD PRN IV 02/19/25 15:45 04/11/25 21:04 50 ML Potassium Chloride 100 ml @ 50 mls/hr Q2H IV 02/19/25 23:15 02/20/25 05:14 Cancel Potassium Chloride 100 ml @ 50 mls/hr Q2H IV 02/20/25 07:15 02/20/25 11:14 UNV Ergocalciferol 50,000 unit Q7D PO 03/04/25 11:45 04/15/25 14:30 50,000 UNIT Zirconium Oxide 10 gm TID PO 03/07/25 14:00 Cancel Sodium Bicarbonate 50 ml/ Sodium Chloride 1,050 ml @ 100 mls/hr [id number] IV 03/07/25 11:45 Cancel Atorvastatin Calcium 80 mg HS PO 03/24/25 22:00 04/21/25 21:59 80 MG Aspirin 81 mg DAILY NG 03/25/25 10:00 04/21/25 09:08 81 MG Insulin Human Regular ACHS SC 03/30/25 22:00 04/22/25 06:41 2 UNITS Ondansetron HCl 4 mg Q8HP PRN PO 04/05/25 15:30 Norepinephrine Bitartrate 250 ml @ 3.75 mls/hr Q24H IV 04/08/25 02:30 04/08/25 02:37 3.75 MLS/HR Enteral Nutritional Formula 1,000 ml 30ML/HR GT 04/15/25 08:45 04/21/25 11:55 1,000 ML Vancomycin HCl 0 ml @ 0 mls/hr UD IV 04/15/25 22:00 Cancel Hydralazine HCl 10 mg Q4HPRN PRN IV 04/16/25 16:00 04/21/25 17:42 10 MG Sodium Chloride 10 ml QSHIFT@10,22 IV 04/16/25 22:00 04/21/25 21:59 10 ML Acetaminophen/ Hydrocodone Bitart 1 tab Q6HP PRN PO 04/19/25 13:15 04/20/25 13:09 1 TAB Hydromorphone HCl 0.5 mg Q4HPRN PRN IV 04/20/25 16:30 04/21/25 05:48 0.5 MG Doxycycline Monohydrate 100 mg Q12HR PO 04/21/25 22:00 04/21/25 21:59 100 MG Duloxetine HCl 30 mg BID PO 04/22/25 10:00 Gabapentin 200 mg TID PO 04/22/25 14:00 Albuterol 2.5 mg Q4HPRN PRN NEB 04/22/25 08:45 Ipratropium [place] 0.5 mg Q4HPRN PRN NEB 04/22/25 08:45 Pantoprazole Sodium 40 mg DAILY IV 04/22/25 10:00 UNV Laboratory Results Laboratory Tests 04/22/25 04:37 Chemistry Test 04/22/25 04:37 Calcium Level 8.3 mg/dL (8.7-10.4) L Urinalysis Test 02/19/25 17:27 03/04/25 05:00 Urine Color Colorless (Yellow) Urine Clarity Clear (Clear) Urine pH 6.5 (5.0-9.0) Urine Specific [place] 1.008 (1.001-1.035) Urine Protein 2+ (Negative) H Urine Ketones 1+ (Negative) H Urine Blood 1+ /uL (Negative) H Urine Nitrite Negative (Negative) Urine Bilirubin Negative (Negative) Urine Urobilinogen Normal mg/dL (Negative) Urine Leukocyte Esterase Negative /uL (Negative) Urine RBC 6 /hpf (0 - 4) Urine Microscopic WBC 2 /HPF (0-5) Urine Squamous Epithelial Cells Few /hpf (<5) Urine Bacteria None seen /hpf (None Seen) Urine Glucose 2+ mg/dL (Normal) H Urine Creatinine 25.51 mg/dL (30.0-125.0) L Urine Protein/Creatinine Ratio 14.00 Urine Sodium 80 mmol/L (40-220) Urine Total Protein 357.1 mg/dL (1-14) H Microbiology Microbiology Date/Time Source Procedure Growth Status 04/06/25 20:35 Blood Blood Culture - Final NO GROWTH AFTER 5 DAYS OF INCUBATION. Complete 04/06/25 10:20 Sputum Gram Stain - Final Complete 04/06/25 10:20 Respiratory Culture - Final Klebsiella pneumoniae - ESBL Complete 04/02/25 13:00 Stool Clostridium difficile Toxin Assay - Final Complete 03/06/25 14:37 Knee Left Gram Stain - Final Complete 03/06/25 14:37 Knee Left Anaerobic Culture - Final Complete 03/06/25 14:37 Aerobic Culture - Final Staphylococcus aureus Complete 03/04/25 13:29 Aspirate Gram Stain - Final Complete 03/04/25 13:29 Body Fluid Culture - Final Staphylococcus aureus Complete 02/19/25 17:27 Urine - [place] Urine Culture - Final Complete Labs and/or images reviewed: Labs reviewed by me, Image(s) reviewed by me Assessment/Plan Assessment/Plan Impression: Multiple acute/subacute strokes Left lower extremity cellulitis Rule out left septic knee Hypokalemia Acute kidney injury likely hemodynamically mediated due to vasomotor nephropathy Chronic kidney disease Peripheral vascular disease status post right [id number] amputation 6 months ago Poorly controlled type 2 diabetes Sepsis Hypertension Mixed hyperlipidemia Polysubstance use disorder Diabetic neuropathy -? Suicidal ideation -septic bursitis with Staphylococcus aureus -septic shock Angioedema of the tongue -hyponatremia -patient with ESBL and CRE in the sputum -cardiac arrest Plan: -events: Patient more alert today, following commands. Denies any symptoms -social service consultation: Continue with efforts to transfer to long-term acute care -continue antibiotics per ID -Restart tube feedings -Potassium replacement -hold anticoagulants -PUD prophylaxis -bronchodilators -continue PPI Repeat labs and chest x-ray in a.m. -pending transfer to LTAC Critical care time spent with patient discussing and formulating plan of care: 90 minutes. This does not include time spent performing procedures. This medical document was created using an electronic medical record system with [employer] dictation system. Although this document has been carefully reviewed, there may still be some phonetic and typographical errors. These areas are purely typographical due to imperfections of the software programs, and do not reflect any compromise in the patient's medical care. Plan discussed with: Patient, Other (RN) My Orders Orders - JUSTIN BONILLA NP Procedure Category Date Status Time Duloxetine Hcl PHA 04/22/25 In Process Capsule (Cymbalta 10:00 Gabapentin Capsule PHA 04/22/25 In Process (Neurontin Capsule) 14:00 Albuterol Medneb PHA 04/22/25 In Process (Ventolin Medneb) 08:45 Ipratropium Medneb PHA 04/22/25 In Process (Atrovent Medneb) 08:45 Pantoprazole PHA 04/22/25 Logged (Protonix) 10:00 Basic Metabolic Panel LAB 04/23/25 Verified 05:00 Basic Metabolic Panel LAB 04/24/25 Verified 05:00 Basic Metabolic Panel LAB 04/25/25 Verified 05:00 Magnesium LAB 04/23/25 Verified 05:00 Magnesium LAB 04/24/25 Verified 05:00 Magnesium LAB 04/25/25 Verified 05:00 Date of Service: April 22, 2025 Billing Provider: JUSTIN BONILLA NP Common Visit Codes: [id number] CARE 30-74 MIN JUSTIN BONILLA NP April 22, 2025 09:56
[2025-04-22] MEDS: DULoxetine HCL 30 MG CAP PO SCH (10:00)
[2025-04-22] MEDS: PANTOPRAZOLE 40 MG/10 ML VIAL INJ IV SCH (10:21)
--- NOTE | 2025-04-22 11:54 | DVHPN2 ---
Progress Note - Dictate Date Seen: April 22, 2025 Medical Necessity Reason Pt with a Central, PICC or Fol: Yes The following are medically ne: Acosta Catheter Reason for acosta catheter: Strict I&O Subjective Patient was seen and evaluated in follow up in the ICU. Patient is intubated and sedated on ventilator. FiO2 30%. Patient unable to tolerate trach collar. WBC 12.3, HGB 8.8, HCT 26.5, K 3.2. Potassium was replaced. Chest x-ray shows bibasilar atelectasis or pneumonia. vital signs Vital Sign Date Time Temp Pulse Resp B/P (MAP) Pulse Ox O2 Delivery O2 Flow Rate FiO2 04/22/25 10:31 85 21 172/96 (121) 96 04/22/25 10:00 30 04/22/25 08:00 98.8 98.8 04/22/25 08:00 Mechanical Ventilator+ Total Intake and Output 04/21/25 04/21/25 04/22/25 15:00 23:00 07:00 Intake Total 100 ml 335 ml 393 ml Output Total 2025 ml 650 ml Balance 100 ml -1690 ml -257 ml medications Current Medications Medications Dose Ordered Sig/John Route Start Time Stop Time Status Last Admin Dose Admin Acetaminophen 650 mg Q6HP PRN PO 02/19/25 13:45 03/09/25 21:36 650 MG Diagnostic Test (Pha) 1 strip ACHS 02/19/25 17:00 04/22/25 06:42 1 STRIP Dextrose 50 ml UD PRN IV 02/19/25 15:45 04/11/25 21:04 50 ML Potassium Chloride 100 ml @ 50 mls/hr Q2H IV 02/19/25 23:15 02/20/25 05:14 Cancel Potassium Chloride 100 ml @ 50 mls/hr Q2H IV 02/20/25 07:15 02/20/25 11:14 UNV Ergocalciferol 50,000 unit Q7D PO 03/04/25 11:45 04/15/25 14:30 50,000 UNIT Zirconium Oxide 10 gm TID PO 03/07/25 14:00 Cancel Sodium Bicarbonate 50 ml/ Sodium Chloride 1,050 ml @ 100 mls/hr [id number] IV 03/07/25 11:45 Cancel Atorvastatin Calcium 80 mg HS PO 03/24/25 22:00 5/26/25 21:59 80 MG Aspirin 81 mg DAILY NG 03/25/25 10:00 04/22/25 10:22 81 MG Insulin Human Regular ACHS SC 03/30/25 22:00 04/22/25 06:41 2 UNITS Ondansetron HCl 4 mg Q8HP PRN PO 04/05/25 15:30 Norepinephrine Bitartrate 250 ml @ 3.75 mls/hr Q24H IV 04/08/25 02:30 04/08/25 02:37 3.75 MLS/HR Enteral Nutritional Formula 1,000 ml 30ML/HR GT 04/15/25 08:45 04/21/25 11:55 1,000 ML Vancomycin HCl 0 ml @ 0 mls/hr UD IV 04/15/25 22:00 Cancel Hydralazine HCl 10 mg Q4HPRN PRN IV 04/16/25 16:00 04/21/25 17:42 10 MG Sodium Chloride 10 ml QSHIFT@10,22 IV 04/16/25 22:00 04/22/25 10:22 10 ML Acetaminophen/ Hydrocodone Bitart 1 tab Q6HP PRN PO 04/19/25 13:15 04/20/25 13:09 1 TAB Hydromorphone HCl 0.5 mg Q4HPRN PRN IV 04/20/25 16:30 04/21/25 05:48 0.5 MG Duloxetine HCl 30 mg BID PO 04/22/25 10:00 Gabapentin 200 mg TID PO 04/22/25 14:00 Albuterol 2.5 mg Q4HPRN PRN NEB 04/22/25 08:45 Ipratropium [place] 0.5 mg Q4HPRN PRN NEB 04/22/25 08:45 Pantoprazole Sodium 40 mg DAILY IV 04/22/25 10:00 04/22/25 10:21 40 MG Cephalexin 500 mg QID GT 04/22/25 12:00 04/28/25 12:00 UNV objective GENERAL: Ill appearing, intubated on ventilator. EYES: PERRL, EOMI. Anicteric. HENT: Moist mucous membranes. LUNGS: Decreased breath sounds. CARDIOVASCULAR: Regular rate and rhythm. ABDOMEN: Soft, non-tender and non-distended. EXTREMITIES: No edema. SKIN: Warm, dry. laboratory and microbiology Laboratory Tests 04/22/25 04:37 Test 04/22/25 04:37 Range/Units Serum Glucose 147 H 74-106 mg/dL Problem List Multiple acute/subacute strokes. Hypokalemia. Acute kidney injury. Hypertension, newly diagnosed. Insulin-dependent diabetes mellitus. Status post right BKA. Dyslipidemia. Polysubstance use disorder. Left lower extremity cellulitis. Peripheral vascular disease status post right [id number] amputation 6 months ago. Sepsis. Diabetic neuropathy. Assessment/Plan Continued all current supportive medical care. Dilaudid and [place] for pain management. Aspirin, Lipitor. IV Hydralazine for SBP > 150. GI prophylactics. Vasopressors for hemodynamic support. Additional plan as per the hospital course. Critical care time of 45 minutes provided to include time spent evaluation of patient at bedside, when appropriate patient/family education for diagnosis, treatment plan, review of pertinent medical information and discussion of care with specialty providers and PCP. Mechanical ventilator parameters, treatment and adjustments have personally been reviewed by me and treatment plan by painter drum has also been reviewed. Dietary Evaluation Review Comments: 1) Esau 1 pk BID 2) Refer [employer] on DC 3) Continue current plan of care Expected Outcomes/Goals: Pt will meet >75% estimated needs Fu 3-5 days Plan discussed with: Other YANIRA WINN MD April 22, 2025 11:54
--- NOTE | 2025-04-22 14:24 | DVHPN2 ---
Subjective Date Seen: April 22, 2025 Post op day Post op day: 0 Patient reports: Other (unable to tolerate trach colar , getting hypoxic and put back on vent after trach colar trial .a gitated and requiring deloded and sedation to stay calm . abdomen is mildly distended ) Objective Vitals Vital Sign Date Time Temp Pulse Resp B/P (MAP) Pulse Ox O2 Delivery O2 Flow Rate FiO2 04/22/25 13:00 88 18 157/81 (106) 100 04/22/25 12:00 30 04/22/25 12:00 Cool Aerosol 10 04/22/25 11:34 98.4 98.4 Total Intake and Output 04/21/25 04/21/25 04/22/25 15:00 23:00 07:00 Intake Total 100 ml 335 ml 393 ml Output Total 2025 ml 650 ml Balance 100 ml -1690 ml -257 ml Medications Current Medications Medications Dose Ordered Sig/John Route Start Time Stop Time Status Last Admin Dose Admin Acetaminophen 650 mg Q6HP PRN PO 02/19/25 13:45 03/09/25 21:36 650 MG Diagnostic Test (Pha) 1 strip ACHS 02/19/25 17:00 04/22/25 11:39 1 STRIP Dextrose 50 ml UD PRN IV 02/19/25 15:45 04/11/25 21:04 50 ML Potassium Chloride 100 ml @ 50 mls/hr Q2H IV 02/19/25 23:15 02/20/25 05:14 Cancel Potassium Chloride 100 ml @ 50 mls/hr Q2H IV 02/20/25 07:15 02/20/25 11:14 UNV Ergocalciferol 50,000 unit Q7D PO 03/04/25 11:45 04/15/25 14:30 50,000 UNIT Zirconium Oxide 10 gm TID PO 03/07/25 14:00 Cancel Sodium Bicarbonate 50 ml/ Sodium Chloride 1,050 ml @ 100 mls/hr [id number] IV 03/07/25 11:45 Cancel Atorvastatin Calcium 80 mg HS PO 03/24/25 22:00 04/21/25 21:59 80 MG Aspirin 81 mg DAILY NG 03/25/25 10:00 04/22/25 10:22 81 MG Insulin Human Regular ACHS SC 03/30/25 22:00 04/22/25 06:41 2 UNITS Ondansetron HCl 4 mg Q8HP PRN PO 04/05/25 15:30 Norepinephrine Bitartrate 250 ml @ 3.75 mls/hr Q24H IV 04/08/25 02:30 04/08/25 02:37 3.75 MLS/HR Enteral Nutritional Formula 1,000 ml 30ML/HR GT 04/15/25 08:45 04/21/25 11:55 1,000 ML Vancomycin HCl 0 ml @ 0 mls/hr UD IV 04/15/25 22:00 Cancel Hydralazine HCl 10 mg Q4HPRN PRN IV 04/16/25 16:00 04/22/25 11:59 10 MG Sodium Chloride 10 ml QSHIFT@10,22 IV 04/16/25 22:00 04/22/25 10:22 10 ML Acetaminophen/ Hydrocodone Bitart 1 tab Q6HP PRN PO 04/19/25 13:15 04/20/25 13:09 1 TAB Hydromorphone HCl 0.5 mg Q4HPRN PRN IV 04/20/25 16:30 04/21/25 05:48 0.5 MG Duloxetine HCl 30 mg BID PO 04/22/25 10:00 Gabapentin 200 mg TID PO 04/22/25 14:00 Albuterol 2.5 mg Q4HPRN PRN NEB 04/22/25 08:45 Ipratropium [place] 0.5 mg Q4HPRN PRN NEB 04/22/25 08:45 Pantoprazole Sodium 40 mg DAILY IV 04/22/25 10:00 04/22/25 10:21 40 MG Cephalexin 500 mg QID GT 04/22/25 12:00 04/28/25 12:00 UNV Labs and Microbiology Laboratory Tests 04/22/25 04:37 Test 04/22/25 04:37 Range/Units Serum Glucose 147 H 74-106 mg/dL Ass/Plan Labs and/or images reviewed: Labs reviewed by me, Image(s) reviewed by me Problem List Pneumonia ESBL Klebsiella, Carbapenemic resistant Pseudomonas positive sputum culture , possible due to ventilator associated pneumonia Sepsis probably due to above Left patellar bursitis, I&D w bursectomy performed on 03/07/25 Left knee culture growing MSSA Left foot ulcer, dorsal aspect Multiple acute-subacute strokes Ruled out C diff colitis Hypokalemia TATIANNA on CKD Peripheral arterial disease s/p R BKA 6 months ago Type 2 diabetes, uncontrolled Diabetic neuropathy Angioedema of the tongue Patient is a 64 year old female with a past medical history of diabetes, left foot ulcer , hypertension , hyperlipidemia , anxiety , peripheral arterial disease , depression , presents with left sided weakness and mild dysarthria . Had a brain MRI revealing multiple small falsi of acute to subacute infarcts in the right coronary radiata and right basal ganglia. Underwent MAGALIS which showed no masses or vegetation . Bubble study was negative , valve restriction is normal . Patient was intubated on 03/13 and a rapid was called . Intubated due to airway protection and excavated on 03/26. but then shortly reintubated due to possible right lower lobe aspiration.Is now on 2 liters nasal canula and has left knee swelling ,erythema , cultures were growing MSSA , however on Clindamycin and irrigation and debridement of left patella on 03/07. She is noting having some diarrhea, with some left knee swelling persistent after debridement . Surgical roxanne are clean and left upper extremity swelling is noted . Crackles in the lungs and is tachycardic Assessment: 04/02:Patient is growing pseudomonas , ESBL klebsiella on sputum culture likely due to hospital acquired pneumonia. possible C diff colitis. As well as an MSSA left knee bursitis that has yet to be treated with appropriate antibiotics. Patient has peripheral arterial disease and right decay and uncontrolled diabetes 04/03: patient is doing better , diarrhea has significantly improved and tolerating antibiotics without any fevers or chills . Patient is a bit drowsy . Patient has some mild angioedema of the tongue . C diff testing is negative 04/04: Patient was seen by Dr Velasco and tolerating diet. Agree with Dr. Velasco findings . Not having any worsening diarrhea 04/05: having diarrhea with antibiotic therapy , most recent chest xray shows lung bases that are unremarkable. clinically stable and worsening confusion and immunity , possible aspiration 04/06: patient has ongoing diarrhea as potential source of worsening septic picture . Patient was found to be hypoxic and confused yesterday possible related to acute aspiration event and possible mucus plugging as patient also refused chest pt. 04/07: presser needs are coming down , suspect aspiration event 04/08: required blood transfusion for hemoglobin 6.9 , unclear if this is due to a real bleed and will continue to monitor for signs of bleeding . Chest xray shows cardiomegaly with mild signs of congestion . Head CT shows right posterior frontal periventricular white matter disease , likely subacute to few small old infacts bilateral basal gangular thats greater on the right side. Cultures are currently with moderate gram negative rods in the sputum and blood cultures are no growth to date 04/09: Culture continues to show moderate gram negative jw in the sputum , awaiting speciation . would be concerned [id number] is not being adequately treated for gram negative jw infection in the sputum previously . 04/10: having some diffuse wheezing in lungs likely contributing to acute hypoxia as well as the gram negative jw that is pending speciation 04/11: S/P trach and peg and tolerating feeds . growing medina resistant and carbon resistant ESBL . Klebsiella pneumonia in the lungs 04/12: tolerating antibiotics and not needing nay presser support , no signs of ongoing sepsis . chest xray shows stable pneumonia 04/13: tolerating antibiotics 04/14:peg tube feeding has been stalled and awaiting feeds . trach setting are stable and tachycardia is stable 04/15: awaiting Ltach placement , vancomycin troth have been therapeutic , tolerating antibiotics 04/16: whitecount is 15.8 , chest xray shows bibasilar etolectisis or pneumonia . patient has a piccline in place 04/17: s/p peg placement 04/18: normal bowel transmit seen on small bowel series 04/19: patient is getting a unit of blood , unclear of bleed source , possibly related to previous GI distension however general surgery has okayed patient to get started on tube feeds 04/20:hemoglobin is stable , tolerating tube feeds 04/21: tolerating trickle feeds and oral antibiotic therapy . knee appears nontender with a good healed scar Plan: - Stop vancomycin due to tube feed toleration and switch to oral doxycyline 100mg 2x a day for an additional 7 days - monitor patient clinically for additional signs of infection however pneumonia appears resolved and knee infection appears significantly improved as well - defer to general surgery team for abdominal distension seen after s/p pegtube placement - defer to general surgery for management of abdominal distension and post surgical care - continue fetroja for 5-7 days - consider bronchoscopy and deeper sputum cultures and BAL culture if patient is to get a bronchoscopy to asses for airway clearance, defer to pulmonology on this - will fu on pending blood culture and urine culture and stool culture Authorized and Performed by: Po Hughes Total critical care time: Approximately 56 minutes Due to a high probability of clinically significant, life threatening deterioration, the patient required my highest level of preparedness to intervene emergently and I personally spent this critical care time directly and personally managing the patient. This critical care time included obtaining a history; examining the patient; pulse oximetry; ordering and review of studies; arranging urgent treatment with development of a management plan; evaluation of patient's response to treatment; frequent reassessment; and, discussions with other providers. This critical care time was performed to assess and manage the high probability of imminent, life-threatening deterioration that could result in multi-organ failure. It was exclusive of separately billable procedures and treating other patients and teaching time. Assessment/Plan status post gastrostomy tube, pneumoperitoneum patient tolerating tube feedings, abdomen soft, non distended, no leak on X-ray no surgical intervention, please recall if needed Prognosis: Good Plan discussed with patient, Dr. Dickinson Visit Coding Surgery Date of Service if different f: April 22, 2025 Billing Provider: BONNIE DICKINSON MD Surgery Visit Codes: [id number] INP/OBS CARE(HIGH) FUNMI [employer] MA[employer]GER April 22, 2025 14:24
[2025-04-22] MEDS: GABAPENTIN 100 MG CAP PO SCH (17:15)
--- NOTE | 2025-04-22 20:25 | DVHPN2 ---
Progress Note - Dictate Date Seen: April 22, 2025 Medical Necessity Reason Pt with a Central, PICC or Fol: Yes The following are medically ne: Acosta Catheter Reason for acosta catheter: Strict I&O vital signs Vital Sign Date Time Temp Pulse Resp B/P (MAP) Pulse Ox O2 Delivery O2 Flow Rate FiO2 04/22/25 19:00 87 15 161/89 (113) 96 04/22/25 18:00 Room Air* 0 21 04/22/25 16:03 97.7 97.7 Total Intake and Output 04/21/25 04/21/25 04/22/25 15:00 23:00 07:00 Intake Total 100 ml 335 ml 393 ml Output Total 2025 ml 650 ml Balance 100 ml -1690 ml -257 ml medications Current Medications Medications Dose Ordered Sig/John Route Start Time Stop Time Status Last Admin Dose Admin Acetaminophen 650 mg Q6HP PRN PO 02/19/25 13:45 03/09/25 21:36 650 MG Diagnostic Test (Pha) 1 strip ACHS 02/19/25 17:00 04/22/25 17:10 1 STRIP Dextrose 50 ml UD PRN IV 02/19/25 15:45 04/11/25 21:04 50 ML Potassium Chloride 100 ml @ 50 mls/hr Q2H IV 02/19/25 23:15 02/20/25 05:14 Cancel Potassium Chloride 100 ml @ 50 mls/hr Q2H IV 02/20/25 07:15 02/20/25 11:14 UNV Ergocalciferol 50,000 unit Q7D PO 03/04/25 11:45 04/15/25 14:30 50,000 UNIT Zirconium Oxide 10 gm TID PO 03/07/25 14:00 Cancel Sodium Bicarbonate 50 ml/ Sodium Chloride 1,050 ml @ 100 mls/hr [id number] IV 03/07/25 11:45 Cancel Atorvastatin Calcium 80 mg HS PO 03/24/25 22:00 04/21/25 21:59 80 MG Aspirin 81 mg DAILY NG 03/25/25 10:00 04/22/25 10:22 81 MG Insulin Human Regular ACHS SC 03/30/25 22:00 04/22/25 06:41 2 UNITS Ondansetron HCl 4 mg Q8HP PRN PO 04/05/25 15:30 Norepinephrine Bitartrate 250 ml @ 3.75 mls/hr Q24H IV 04/08/25 02:30 04/08/25 02:37 3.75 MLS/HR Enteral Nutritional Formula 1,000 ml 30ML/HR GT 04/15/25 08:45 04/21/25 11:55 1,000 ML Vancomycin HCl 0 ml @ 0 mls/hr UD IV 04/15/25 22:00 Cancel Hydralazine HCl 10 mg Q4HPRN PRN IV 04/16/25 16:00 04/22/25 18:07 10 MG Sodium Chloride 10 ml QSHIFT@10,22 IV 04/16/25 22:00 04/22/25 10:22 10 ML Acetaminophen/ Hydrocodone Bitart 1 tab Q6HP PRN PO 04/19/25 13:15 04/20/25 13:09 1 TAB Hydromorphone HCl 0.5 mg Q4HPRN PRN IV 04/20/25 16:30 04/21/25 05:48 0.5 MG Duloxetine HCl 30 mg BID PO 04/22/25 10:00 Gabapentin 200 mg TID PO 04/22/25 14:00 04/22/25 17:15 200 MG Albuterol 2.5 mg Q4HPRN PRN NEB 04/22/25 08:45 Ipratropium [place] 0.5 mg Q4HPRN PRN NEB 04/22/25 08:45 Pantoprazole Sodium 40 mg DAILY IV 04/22/25 10:00 04/22/25 10:21 40 MG Cephalexin 500 mg QID GT 04/22/25 12:00 04/28/25 12:00 UNV laboratory and microbiology Laboratory Tests 04/22/25 04:37 Test 04/22/25 04:37 Range/Units Serum Glucose 147 H 74-106 mg/dL Assessment/Plan Impression Acute hypoxemic respiratory failure Altered mental status Hx of CVA Sepsis Patient seen and examined in ICU Events S/p tracheostomy Tolerating trach collar Labs and imaging reviewed ABG reviewed Management Vent support as needed Titrate to maintain sats 90% or above Trach care per RT protocol Continue antibiotics F/u cultures Bronchodilators Monitor renal function Monitor electrolytes Supplement as needed Pain control Avoid oversedation DVT prophylaxis Critical care time 35 minutes Dietary Evaluation Review Comments: 1) [place] 1 pk BID 2) Refer Receiving Checker on DC 3) Continue current plan of care Expected Outcomes/Goals: Pt will meet >75% estimated needs Fu 3-5 days Plan discussed with: Other (Rn) ARUNA BRISENO MD April 22, 2025 20:25
[2025-04-22] MEDS: CEPHALEXIN 250 MG CAP PO SCH (22:12)
[2025-04-23] VITALS (50 sets, daily range): BP systolic 142–177; BP diastolic 81–99; PULSE 77–94; RESP 15–29; TEMP 97.4–97.9; O2SAT 93–100
[2025-04-23 05:11] LABS: Sodium 144 mmol/L (136-145)
[2025-04-23 05:12] LABS: Anion Gap 11 (5-15)
[2025-04-23 05:17] LABS: Calcium 7.9 mg/dL (8.7-10.4); Carbon Dioxide 19 mmol/L (20-31); Chloride 114 mmol/L (98-107); Glucose 103 mg/dL (74-106); Magnesium 1.7 mg/dL (1.6-2.6); Potassium 2.8 mmol/L (3.5-5.1)
[2025-04-23 05:58] LABS: BUN/Creatinine Ratio 20.2 (10.0-20.0); Blood Urea Nitrogen 20 mg/dL (9-23)
[2025-04-23] MEDS: POTASSIUM EFFERVESENT TAB 25 MEQ GT ONE (08:17)
[2025-04-23] MEDS: POTASSIUM CHLORIDE 40 MEQ in SOD CHL 0.45% 1,000 ML IV SCH (09:35)
[2025-04-23] MEDS: LOSARTAN POTASSIUM 25 MG TAB PO SCH (12:33)
--- NOTE | 2025-04-23 13:44 | DVHPN2 ---
Subjective Denies any symptoms Reviewed: Care Plan, H&P, Labs, Medications, Previous Orders, Radiology, Other (Consultations) Changes from previous H/P or p: No Changes General: Per HPI Objective Vitals Vital Signs Date Time Temp Pulse Resp B/P (MAP) Pulse Ox O2 Delivery O2 Flow Rate FiO2 04/23/25 13:00 86 20 167/93 (117) 98 04/23/25 12:30 97.7 97.7 04/23/25 12:00 Trach Collar 5 28 Cool Aerosol 28 Intake/Output Intake and Output 04/23/25 07:00 Intake Total 201 ml Output Total 2900 ml Balance -2699 ml Intake Oral 90 ml Tube Feeding 111 ml Output Urine Total 2900 ml Exam Assess patient will sitting in her wheelchair. General Appearance: Alert, Oriented X3, Cooperative, Other HEENT: Atraumatic, PERRLA Neck: Other Lungs: Clear to auscultation, Normal air movement, Other Cardiovascular: Regular rate, Normal S1, Normal S2 Abdomen: Normal bowel sounds, Soft, Other Genitourinary: No Apparent Abnormalities, Other Extremities: Other Neuro: Cranial nerves 3-12 NL, Other Skin: Dry, Intact, Wounds Psych/Mental Status: Other Medications Current Medications Medications Dose Ordered Sig/John Route Start Time Stop Time Status Last Admin Dose Admin Acetaminophen 650 mg Q6HP PRN PO 02/19/25 13:45 03/09/25 21:36 650 MG Diagnostic Test (Pha) 1 strip ACHS 02/19/25 17:00 04/23/25 12:08 1 STRIP Dextrose 50 ml UD PRN IV 02/19/25 15:45 04/11/25 21:04 50 ML Potassium Chloride 100 ml @ 50 mls/hr Q2H IV 02/19/25 23:15 02/20/25 05:14 Cancel Potassium Chloride 100 ml @ 50 mls/hr Q2H IV 02/20/25 07:15 02/20/25 11:14 UNV Ergocalciferol 50,000 unit Q7D PO 03/04/25 11:45 04/15/25 14:30 50,000 UNIT Zirconium Oxide 10 gm TID PO 03/07/25 14:00 Cancel Sodium Bicarbonate 50 ml/ Sodium Chloride 1,050 ml @ 100 mls/hr [id number] IV 03/07/25 11:45 Cancel Atorvastatin Calcium 80 mg HS PO 03/24/25 22:00 04/22/25 22:12 80 MG Aspirin 81 mg DAILY NG 03/25/25 10:00 04/23/25 09:35 81 MG Insulin Human Regular ACHS SC 03/30/25 22:00 04/22/25 06:41 2 UNITS Ondansetron HCl 4 mg Q8HP PRN PO 04/05/25 15:30 Norepinephrine Bitartrate 250 ml @ 3.75 mls/hr Q24H IV 04/08/25 02:30 04/08/25 02:37 3.75 MLS/HR Enteral Nutritional Formula 1,000 ml 30ML/HR GT 04/15/25 08:45 04/21/25 11:55 1,000 ML Vancomycin HCl 0 ml @ 0 mls/hr UD IV 04/15/25 22:00 Cancel Hydralazine HCl 10 mg Q4HPRN PRN IV 04/16/25 16:00 04/23/25 05:59 10 MG Sodium Chloride 10 ml QSHIFT@10,22 IV 04/16/25 22:00 04/23/25 09:35 10 ML Acetaminophen/ Hydrocodone Bitart 1 tab Q6HP PRN PO 04/19/25 13:15 04/20/25 13:09 1 TAB Hydromorphone HCl 0.5 mg Q4HPRN PRN IV 04/20/25 16:30 04/21/25 05:48 0.5 MG Duloxetine HCl 30 mg BID PO 04/22/25 10:00 Gabapentin 200 mg TID PO 04/22/25 14:00 04/23/25 05:54 200 MG Albuterol 2.5 mg Q4HPRN PRN NEB 04/22/25 08:45 Ipratropium [place] 0.5 mg Q4HPRN PRN NEB 04/22/25 08:45 Pantoprazole Sodium 40 mg DAILY IV 04/22/25 10:00 04/23/25 09:34 40 MG Cephalexin 500 mg Q6H PO 04/22/25 21:00 04/23/25 09:56 500 MG Potassium Chloride 40 meq/ Sodium Chloride 1,020 ml @ 75 mls/hr [id number] IV 04/23/25 08:00 04/23/25 09:35 75 MLS/HR Losartan Potassium 25 mg DAILY PO 04/23/25 12:00 04/23/25 12:33 25 MG Laboratory Results Laboratory Tests 04/22/25 04:37 04/23/25 04:35 Chemistry Test 04/23/25 04:35 Calcium Level 7.9 mg/dL (8.7-10.4) L Magnesium Level 1.7 mg/dL (1.6-2.6) Urinalysis Test 02/19/25 17:27 03/04/25 05:00 Urine Color Colorless (Yellow) Urine Clarity Clear (Clear) Urine pH 6.5 (5.0-9.0) Urine Specific [place] 1.008 (1.001-1.035) Urine Protein 2+ (Negative) H Urine Ketones 1+ (Negative) H Urine Blood 1+ /uL (Negative) H Urine Nitrite Negative (Negative) Urine Bilirubin Negative (Negative) Urine Urobilinogen Normal mg/dL (Negative) Urine Leukocyte Esterase Negative /uL (Negative) Urine RBC 6 /hpf (0 - 4) Urine Microscopic WBC 2 /HPF (0-5) Urine Squamous Epithelial Cells Few /hpf (<5) Urine Bacteria None seen /hpf (None Seen) Urine Glucose 2+ mg/dL (Normal) H Urine Creatinine 25.51 mg/dL (30.0-125.0) L Urine Protein/Creatinine Ratio 14.00 Urine Sodium 80 mmol/L (40-220) Urine Total Protein 357.1 mg/dL (1-14) H Microbiology Microbiology Date/Time Source Procedure Growth Status 04/06/25 20:35 Blood Blood Culture - Final NO GROWTH AFTER 5 DAYS OF INCUBATION. Complete 04/06/25 10:20 Sputum Gram Stain - Final Complete 04/06/25 10:20 Respiratory Culture - Final Klebsiella pneumoniae - ESBL Complete 04/02/25 13:00 Stool Clostridium difficile Toxin Assay - Final Complete 03/06/25 14:37 Knee Left Gram Stain - Final Complete 03/06/25 14:37 Knee Left Anaerobic Culture - Final Complete 03/06/25 14:37 Aerobic Culture - Final Staphylococcus aureus Complete 03/04/25 13:29 Aspirate Gram Stain - Final Complete 03/04/25 13:29 Body Fluid Culture - Final Staphylococcus aureus Complete 02/19/25 17:27 Urine - [place] Urine Culture - Final Complete Labs and/or images reviewed: Labs reviewed by me, Image(s) reviewed by me Assessment/Plan Assessment/Plan Impression: Multiple acute/subacute strokes Left lower extremity cellulitis Rule out left septic knee Hypokalemia Acute kidney injury likely hemodynamically mediated due to vasomotor nephropathy Chronic kidney disease Peripheral vascular disease status post right [id number] amputation 6 months ago Poorly controlled type 2 diabetes Sepsis Hypertension Mixed hyperlipidemia Polysubstance use disorder Diabetic neuropathy -? Suicidal ideation -septic bursitis with Staphylococcus aureus -septic shock Angioedema of the tongue -hyponatremia -patient with ESBL and CRE in the sputum -cardiac arrest Plan: -events: Patient weaned off of mechanical ventilation and on trach collar. Continues to have hypokalemia. Potassium replacement provided. Patient is stable to transfer to LTAC. Awaiting acceptance. -social service consultation: Continue with efforts to transfer to long-term acute care -continue antibiotics per ID -Restart tube feedings -Potassium replacement -hold anticoagulants -PUD prophylaxis -bronchodilators -continue PPI Repeat labs and chest x-ray in a.m. Critical care time spent with patient discussing and formulating plan of care: 90 minutes. This does not include time spent performing procedures. This medical document was created using an electronic medical record system with [employer] dictation system. Although this document has been carefully reviewed, there may still be some phonetic and typographical errors. These areas are purely typographical due to imperfections of the software programs, and do not reflect any compromise in the patient's medical care. Plan discussed with: Patient, Other (RN) My Orders Orders - JUSTIN BONILLA NP Procedure Category Date Status Time Sod Chl 0.45% PHA 04/23/25 In Process (Sodi... W/Potassium 08:00 Losartan Tablet PHA 04/23/25 In Process (Cozaar Tablet) 12:00 Date of Service: April 23, 2025 Billing Provider: JUSTIN BONILLA NP Common Visit Codes: [id number] CARE 30-74 MIN JUSTIN BONILLA NP April 23, 2025 13:44
--- NOTE | 2025-04-23 18:18 | DVHPN2 ---
Progress Note - Dictate Date Seen: April 23, 2025 Medical Necessity Reason Pt with a Central, PICC or Fol: Yes The following are medically ne: Acosta Catheter Reason for acosta catheter: Strict I&O vital signs Vital Sign Date Time Temp Pulse Resp B/P (MAP) Pulse Ox O2 Delivery O2 Flow Rate FiO2 04/23/25 17:00 83 17 166/94 (118) 97 04/23/25 16:00 Trach Collar 5 28 Cool Aerosol 28 04/23/25 12:30 97.7 97.7 Total Intake and Output 04/22/25 04/22/25 04/23/25 15:00 23:00 07:00 Intake Total 60 ml 141 ml Output Total 1400 ml 1500 ml Balance -1340 ml -1359 ml medications Current Medications Medications Dose Ordered Sig/John Route Start Time Stop Time Status Last Admin Dose Admin Acetaminophen 650 mg Q6HP PRN PO 02/19/25 13:45 03/09/25 21:36 650 MG Diagnostic Test (Pha) 1 strip ACHS 02/19/25 17:00 04/23/25 12:08 1 STRIP Dextrose 50 ml UD PRN IV 02/19/25 15:45 04/11/25 21:04 50 ML Potassium Chloride 100 ml @ 50 mls/hr Q2H IV 02/19/25 23:15 02/20/25 05:14 Cancel Potassium Chloride 100 ml @ 50 mls/hr Q2H IV 02/20/25 07:15 02/20/25 11:14 UNV Ergocalciferol 50,000 unit Q7D PO 03/04/25 11:45 04/15/25 14:30 50,000 UNIT Zirconium Oxide 10 gm TID PO 03/07/25 14:00 Cancel Sodium Bicarbonate 50 ml/ Sodium Chloride 1,050 ml @ 100 mls/hr [id number] IV 03/07/25 11:45 Cancel Atorvastatin Calcium 80 mg HS PO 03/24/25 22:00 04/22/25 22:12 80 MG Aspirin 81 mg DAILY NG 03/25/25 10:00 04/23/25 09:35 81 MG Insulin Human Regular ACHS SC 03/30/25 22:00 04/22/25 06:41 2 UNITS Ondansetron HCl 4 mg Q8HP PRN PO 04/05/25 15:30 Norepinephrine Bitartrate 250 ml @ 3.75 mls/hr Q24H IV 04/08/25 02:30 04/08/25 02:37 3.75 MLS/HR Enteral Nutritional Formula 1,000 ml 30ML/HR GT 04/15/25 08:45 04/21/25 11:55 1,000 ML Vancomycin HCl 0 ml @ 0 mls/hr UD IV 04/15/25 22:00 Cancel Hydralazine HCl 10 mg Q4HPRN PRN IV 04/16/25 16:00 04/23/25 05:59 10 MG Sodium Chloride 10 ml QSHIFT@10,22 IV 04/16/25 22:00 04/23/25 09:35 10 ML Acetaminophen/ Hydrocodone Bitart 1 tab Q6HP PRN PO 04/19/25 13:15 04/20/25 13:09 1 TAB Hydromorphone HCl 0.5 mg Q4HPRN PRN IV 04/20/25 16:30 04/21/25 05:48 0.5 MG Duloxetine HCl 30 mg BID PO 04/22/25 10:00 Gabapentin 200 mg TID PO 04/22/25 14:00 04/23/25 14:20 200 MG Albuterol 2.5 mg Q4HPRN PRN NEB 04/22/25 08:45 Ipratropium [place] 0.5 mg Q4HPRN PRN NEB 04/22/25 08:45 Pantoprazole Sodium 40 mg DAILY IV 04/22/25 10:00 04/23/25 09:34 40 MG Cephalexin 500 mg Q6H PO 04/22/25 21:00 04/23/25 14:51 500 MG Potassium Chloride 40 meq/ Sodium Chloride 1,020 ml @ 75 mls/hr [id number] IV 04/23/25 08:00 04/23/25 09:35 75 MLS/HR Losartan Potassium 25 mg DAILY PO 04/23/25 12:00 04/23/25 12:33 25 MG laboratory and microbiology Laboratory Tests 04/23/25 04:35 04/22/25 04:37 Test 04/23/25 04:35 Range/Units Serum Glucose 103 74-106 mg/dL Assessment/Plan Impression Acute hypoxemic respiratory failure Altered mental status Hx of CVA Sepsis Patient seen and examined in ICU Events S/p tracheostomy Tolerating trach collar x 3 days No acute events Labs and imaging reviewed ABG reviewed Management Vent support as needed Titrate to maintain sats 90% or above Trach care per RT protocol Continue antibiotics F/u cultures Bronchodilators Monitor renal function Monitor electrolytes Supplement as needed Pain control Avoid oversedation DVT prophylaxis Critical care time 35 minutes Dietary Evaluation Review Comments: 1) [place] 1 pk BID 2) Refer Fire Assistant on DC 3) Continue current plan of care Expected Outcomes/Goals: Pt will meet >75% estimated needs Fu 3-5 days Plan discussed with: Other (Rn) ARUNA BRISENO MD April 23, 2025 18:18
--- NOTE | 2025-04-23 19:01 | DVHPN2 ---
Progress Note - Dictate Date Seen: April 23, 2025 Medical Necessity Reason Pt with a Central, PICC or Fol: Yes The following are medically ne: Acosta Catheter Reason for acosta catheter: Strict I&O Subjective Patient was seen and evaluated in follow up in the ICU. Patient is intubated on trach collar. Patient is able to follow simple commands and nod head. K 2.8, CO2 19, CA 7.9. Potassium was replaced. Awaiting acceptance. vital signs Vital Sign Date Time Temp Pulse Resp B/P (MAP) Pulse Ox O2 Delivery O2 Flow Rate FiO2 04/23/25 12:33 158/89 04/23/25 12:30 97.7 81 25 98 97.7 04/23/25 10:00 Trach Collar 04 23 Cool Aerosol 28 Total Intake and Output 04/22/25 04/22/25 04/23/25 15:00 23:00 07:00 Intake Total 60 ml 141 ml Output Total 1400 ml 1500 ml Balance -1340 ml -1359 ml medications Current Medications Medications Dose Ordered Sig/John Route Start Time Stop Time Status Last Admin Dose Admin Acetaminophen 650 mg Q6HP PRN PO 02/19/25 13:45 03/09/25 21:36 650 MG Diagnostic Test (Pha) 1 strip ACHS 02/19/25 17:00 04/23/25 12:08 1 STRIP Dextrose 50 ml UD PRN IV 02/19/25 15:45 04/11/25 21:04 50 ML Potassium Chloride 100 ml @ 50 mls/hr Q2H IV 02/19/25 23:15 02/20/25 05:14 Cancel Potassium Chloride 100 ml @ 50 mls/hr Q2H IV 02/20/25 07:15 02/20/25 11:14 UNV Ergocalciferol 50,000 unit Q7D PO 03/04/25 11:45 04/15/25 14:30 50,000 UNIT Zirconium Oxide 10 gm TID PO 03/07/25 14:00 Cancel Sodium Bicarbonate 50 ml/ Sodium Chloride 1,050 ml @ 100 mls/hr [id number] IV 03/07/25 11:45 Cancel Atorvastatin Calcium 80 mg HS PO 03/24/25 22:00 04/22/25 22:12 80 MG Aspirin 81 mg DAILY NG 03/25/25 10:00 04/23/25 09:35 81 MG Insulin Human Regular ACHS SC 03/30/25 22:00 04/22/25 06:41 2 UNITS Ondansetron HCl 4 mg Q8HP PRN PO 04/05/25 15:30 Norepinephrine Bitartrate 250 ml @ 3.75 mls/hr Q24H IV 04/08/25 02:30 04/08/25 02:37 3.75 MLS/HR Enteral Nutritional Formula 1,000 ml 30ML/HR GT 04/15/25 08:45 04/21/25 11:55 1,000 ML Vancomycin HCl 0 ml @ 0 mls/hr UD IV 04/15/25 22:00 Cancel Hydralazine HCl 10 mg Q4HPRN PRN IV 04/16/25 16:00 04/23/25 05:59 10 MG Sodium Chloride 10 ml QSHIFT@10,22 IV 04/16/25 22:00 04/23/25 09:35 10 ML Acetaminophen/ Hydrocodone Bitart 1 tab Q6HP PRN PO 04/19/25 13:15 04/20/25 13:09 1 TAB Hydromorphone HCl 0.5 mg Q4HPRN PRN IV 04/20/25 16:30 04/21/25 05:48 0.5 MG Duloxetine HCl 30 mg BID PO 04/22/25 10:00 Gabapentin 200 mg TID PO 04/22/25 14:00 04/23/25 05:54 200 MG Albuterol 2.5 mg Q4HPRN PRN NEB 04/22/25 08:45 Ipratropium [place] 0.5 mg Q4HPRN PRN NEB 04/22/25 08:45 Pantoprazole Sodium 40 mg DAILY IV 04/22/25 10:00 04/23/25 09:34 40 MG Cephalexin 500 mg Q6H PO 04/22/25 21:00 04/23/25 09:56 500 MG Potassium Chloride 40 meq/ Sodium Chloride 1,020 ml @ 75 mls/hr [id number] IV 04/23/25 08:00 04/23/25 09:35 75 MLS/HR Losartan Potassium 25 mg DAILY PO 04/23/25 12:00 04/23/25 12:33 25 MG objective GENERAL: Ill appearing, intubated on trach. EYES: PERRL, EOMI. Anicteric. HENT: Moist mucous membranes. LUNGS: Decreased breath sounds. CARDIOVASCULAR: Regular rate and rhythm. ABDOMEN: Soft, non-tender and non-distended. EXTREMITIES: No edema. SKIN: Warm, dry. laboratory and microbiology Laboratory Tests 04/23/25 04:35 04/22/25 04:37 Test 04/23/25 04:35 Range/Units Serum Glucose 103 74-106 mg/dL Problem List Multiple acute/subacute strokes. Hypokalemia. Acute kidney injury. Hypertension, newly diagnosed. Insulin-dependent diabetes mellitus. Status post right BKA. Dyslipidemia. Polysubstance use disorder. Left lower extremity cellulitis. Peripheral vascular disease status post right [id number] amputation 6 months ago. Sepsis. Diabetic neuropathy. Assessment/Plan Continued all current supportive medical care. Dilaudid and [place] for pain management. Aspirin, Lipitor. IV Hydralazine for SBP > 150. GI prophylactics. Losartan. Vasopressors for hemodynamic support. Additional plan as per the hospital course. Critical care time of 45 minutes provided to include time spent evaluation of patient at bedside, when appropriate patient/family education for diagnosis, treatment plan, review of pertinent medical information and discussion of care with specialty providers and PCP. Mechanical ventilator parameters, treatment and adjustments have personally been reviewed by me and treatment plan by director of customer acquisition has also been reviewed. Dietary Evaluation Review Comments: 1) [place] 1 pk BID 2) Refer Recruiting Internship on DC 3) Continue current plan of care Expected Outcomes/Goals: Pt will meet >75% estimated needs Fu 3-5 days Plan discussed with: Other YANIRA WINN MD April 23, 2025 13:05
[2025-04-24] VITALS (31 sets, daily range): BP systolic 150–180; BP diastolic 84–104; PULSE 68–87; RESP 12–28; TEMP 98.1–98.8; O2SAT 97–100
--- NOTE | 2025-04-24 05:55 | DVH ---
CHEST RADIOGRAPH Indication: Trach tube Technique: Single frontal view of the chest was obtained Comparison: XY CHEST PORTABLE on DOS: 04/22/25, XY CHEST PORTABLE on DOS: 04/21/25, XY CHEST PORTABLE o n DOS: 04/20/25 FINDINGS: Lines and Tubes: There is a right PICC with its tip terminating in the right atrium. Tracheostomy tu be is unchanged. Lungs: Bilateral airspace disease which is similar to prior study. Pleura: No effusion. No pneumothorax. Cardiomediastinal contours: Unremarkable Bones: No acute osseous abnormality. Upper abdomen: Pneumoperitoneum similar to prior studies. IMPRESSION: 1. Bilateral airspace disease, not significantly changed. 2. Pneumoperitoneum, not significantly changed.
[2025-04-24 06:56] LABS: Anion Gap 9 (5-15); Carbon Dioxide 20 mmol/L (20-31); Chloride 115 mmol/L (98-107); Sodium 144 mmol/L (136-145)
[2025-04-24 07:02] LABS: BUN/Creatinine Ratio 21.7 (10.0-20.0); Blood Urea Nitrogen 20 mg/dL (9-23); Magnesium 1.6 mg/dL (1.6-2.6)
[2025-04-24 07:03] LABS: Calcium 8.4 mg/dL (8.7-10.4); Glucose 121 mg/dL (74-106)
[2025-04-24] MEDS: IPRATROPIUM BROM 0.5 MG/2.5ML INH SOL NEB PRN (07:27)
[2025-04-24] MEDS: ALBUTEROL SULF 2.5 MG/0.5ML(0.5%) NEB SOLN NEB PRN (07:27)
--- NOTE | 2025-04-24 12:53 | DVHPN2 ---
Progress Note - Dictate Date Seen: April 24, 2025 Medical Necessity Reason Pt with a Central, PICC or Fol: Yes The following are medically ne: Acosta Catheter Reason for acosta catheter: Strict I&O vital signs Vital Sign Date Time Temp Pulse Resp B/P (MAP) Pulse Ox O2 Delivery O2 Flow Rate FiO2 04/24/25 11:00 81 24 173/104 (127) 100 04/24/25 10:00 Cool Aerosol 04 23 2804/24/25 08:00 98.6 98.6 Total Intake and Output 04/23/25 04/23/25 04/24/25 15:00 23:00 07:00 Intake Total 450 ml 1039 ml 925 ml Output Total 650 ml 500 ml Balance 450 ml 389 ml 425 ml medications Current Medications Medications Dose Ordered Sig/John Route Start Time Stop Time Status Last Admin Dose Admin Acetaminophen 650 mg Q6HP PRN PO 02/19/25 13:45 03/09/25 21:36 650 MG Diagnostic Test (Pha) 1 strip ACHS 02/19/25 17:00 04/24/25 12:12 1 STRIP Dextrose 50 ml UD PRN IV 02/19/25 15:45 04/11/25 21:04 50 ML Potassium Chloride 100 ml @ 50 mls/hr Q2H IV 02/19/25 23:15 02/20/25 05:14 Cancel Potassium Chloride 100 ml @ 50 mls/hr Q2H IV 02/20/25 07:15 02/20/25 11:14 UNV Ergocalciferol 50,000 unit Q7D PO 03/04/25 11:45 04/15/25 14:30 50,000 UNIT Zirconium Oxide 10 gm TID PO 03/07/25 14:00 Cancel Sodium Bicarbonate 50 ml/ Sodium Chloride 1,050 ml @ 100 mls/hr [id number] IV 03/07/25 11:45 Cancel Atorvastatin Calcium 80 mg HS PO 03/24/25 22:00 04/23/25 21:42 80 MG Aspirin 81 mg DAILY NG 03/25/25 10:00 04/24/25 10:42 81 MG Insulin Human Regular ACHS SC 03/30/25 22:00 04/24/25 12:16 2 UNITS Ondansetron HCl 4 mg Q8HP PRN PO 04/05/25 15:30 Norepinephrine Bitartrate 250 ml @ 3.75 mls/hr Q24H IV 04/08/25 02:30 04/08/25 02:37 3.75 MLS/HR Enteral Nutritional Formula 1,000 ml 30ML/HR GT 04/15/25 08:45 04/21/25 11:55 1,000 ML Vancomycin HCl 0 ml @ 0 mls/hr UD IV 04/15/25 22:00 Cancel Hydralazine HCl 10 mg Q4HPRN PRN IV 04/16/25 16:00 04/24/25 09:19 10 MG Sodium Chloride 10 ml QSHIFT@10,22 IV 04/16/25 22:00 04/24/25 10:43 10 ML Acetaminophen/ Hydrocodone Bitart 1 tab Q6HP PRN PO 04/19/25 13:15 04/20/25 13:09 1 TAB Hydromorphone HCl 0.5 mg Q4HPRN PRN IV 04/20/25 16:30 04/21/25 05:48 0.5 MG Duloxetine HCl 30 mg BID PO 04/22/25 10:00 Gabapentin 200 mg TID PO 04/22/25 14:00 04/24/25 05:48 200 MG Albuterol 2.5 mg Q4HPRN PRN NEB 04/22/25 08:45 04/24/25 07:27 2.5 MG Ipratropium [place] 0.5 mg Q4HPRN PRN NEB 04/22/25 08:45 04/24/25 07:27 0.5 MG Pantoprazole Sodium 40 mg DAILY IV 04/22/25 10:00 04/24/25 10:41 40 MG Cephalexin 500 mg Q6H PO 04/22/25 21:00 04/24/25 09:04 500 MG Losartan Potassium 25 mg DAILY PO 04/23/25 12:00 04/24/25 10:43 25 MG laboratory and microbiology Laboratory Tests 04/24/25 04:53 04/22/25 04:37 Test 04/24/25 04:53 Range/Units Serum Glucose 121 H 74-106 mg/dL Assessment/Plan Impression Acute hypoxemic respiratory failure Altered mental status Hx of CVA Sepsis Patient seen and examined in ICU Events S/p tracheostomy Tolerating trach collar No acute events Labs and imaging reviewed ABG reviewed Management Vent support as needed Titrate to maintain sats 90% or above Trach care per RT protocol Continue antibiotics F/u cultures Bronchodilators Monitor renal function Monitor electrolytes Supplement as needed Pain control Avoid oversedation DVT prophylaxis Critical care time 35 minutes Dietary Evaluation Review Comments: 1) [place] 1 pk BID 2) Refer Turkish Line Attendant on DC 3) Continue current plan of care Expected Outcomes/Goals: Pt will meet >75% estimated needs Fu 3-5 days Plan discussed with: Other (rn) ARUNA BRISENO MD April 24, 2025 12:53
--- NOTE | 2025-04-24 22:28 | DVHPN2 ---
Progress Note - Dictate Date Seen: April 24, 2025 Medical Necessity Reason Pt with a Central, PICC or Fol: Yes The following are medically ne: Acosta Catheter Reason for acosta catheter: Strict I&O Subjective Patient was seen and evaluated in follow up in the ICU. Patient is intubated on trach collar. Chest x-ray shows bilateral airspace disease, not significantly changed. [facility]. vital signs Vital Sign Date Time Temp Pulse Resp B/P (MAP) Pulse Ox O2 Delivery O2 Flow Rate FiO2 04/24/25 10:43 159/90 04/24/25 08:20 78 21 98 Cool Aerosol 04 23 2804/24/25 04:00 98.1 98.1 Total Intake and Output 04/23/25 04/23/25 04/24/25 15:00 23:00 07:00 Intake Total 450 ml 1039 ml 925 ml Output Total 650 ml 500 ml Balance 450 ml 389 ml 425 ml medications Current Medications Medications Dose Ordered Sig/John Route Start Time Stop Time Status Last Admin Dose Admin Acetaminophen 650 mg Q6HP PRN PO 02/19/25 13:45 03/09/25 21:36 650 MG Diagnostic Test (Pha) 1 strip ACHS 02/19/25 17:00 04/24/25 06:38 1 STRIP Dextrose 50 ml UD PRN IV 02/19/25 15:45 04/11/25 21:04 50 ML Potassium Chloride 100 ml @ 50 mls/hr Q2H IV 02/19/25 23:15 02/20/25 05:14 Cancel Potassium Chloride 100 ml @ 50 mls/hr Q2H IV 02/20/25 07:15 02/20/25 11:14 UNV Ergocalciferol 50,000 unit Q7D PO 03/04/25 11:45 04/15/25 14:30 50,000 UNIT Zirconium Oxide 10 gm TID PO 03/07/25 14:00 Cancel Sodium Bicarbonate 50 ml/ Sodium Chloride 1,050 ml @ 100 mls/hr [id number] IV 03/07/25 11:45 Cancel Atorvastatin Calcium 80 mg HS PO 03/24/25 22:00 04/23/25 21:42 80 MG Aspirin 81 mg DAILY NG 03/25/25 10:00 04/24/25 10:42 81 MG Insulin Human Regular ACHS SC 03/30/25 22:00 04/24/25 06:38 2 UNITS Ondansetron HCl 4 mg Q8HP PRN PO 04/05/25 15:30 Norepinephrine Bitartrate 250 ml @ 3.75 mls/hr Q24H IV 04/08/25 02:30 04/08/25 02:37 3.75 MLS/HR Enteral Nutritional Formula 1,000 ml 30ML/HR GT 04/15/25 08:45 04/21/25 11:55 1,000 ML Vancomycin HCl 0 ml @ 0 mls/hr UD IV 04/15/25 22:00 Cancel Hydralazine HCl 10 mg Q4HPRN PRN IV 04/16/25 16:00 04/24/25 09:19 10 MG Sodium Chloride 10 ml QSHIFT@10,22 IV 04/16/25 22:00 04/24/25 10:43 10 ML Acetaminophen/ Hydrocodone Bitart 1 tab Q6HP PRN PO 04/19/25 13:15 04/20/25 13:09 1 TAB Hydromorphone HCl 0.5 mg Q4HPRN PRN IV 04/20/25 16:30 04/21/25 05:48 0.5 MG Duloxetine HCl 30 mg BID PO 04/22/25 10:00 Gabapentin 200 mg TID PO 04/22/25 14:00 04/24/25 05:48 200 MG Albuterol 2.5 mg Q4HPRN PRN NEB 04/22/25 08:45 04/24/25 07:27 2.5 MG Ipratropium [place] 0.5 mg Q4HPRN PRN NEB 04/22/25 08:45 04/24/25 07:27 0.5 MG Pantoprazole Sodium 40 mg DAILY IV 04/22/25 10:00 04/24/25 10:41 40 MG Cephalexin 500 mg Q6H PO 04/22/25 21:00 04/24/25 09:04 500 MG Potassium Chloride 40 meq/ Sodium Chloride 1,020 ml @ 75 mls/hr [id number] IV 04/23/25 08:00 04/23/25 22:23 75 MLS/HR Losartan Potassium 25 mg DAILY PO 04/23/25 12:00 04/24/25 10:43 25 MG objective GENERAL: Ill appearing, intubated on trach. EYES: PERRL, EOMI. Anicteric. HENT: Moist mucous membranes. LUNGS: Decreased breath sounds. CARDIOVASCULAR: Regular rate and rhythm. ABDOMEN: Soft, non-tender and non-distended. EXTREMITIES: No edema. SKIN: Warm, dry. laboratory and microbiology Laboratory Tests 04/24/25 04:53 04/22/25 04:37 Test 04/24/25 04:53 Range/Units Serum Glucose 121 H 74-106 mg/dL Problem List Multiple acute/subacute strokes. Hypokalemia. Acute kidney injury. Hypertension, newly diagnosed. Insulin-dependent diabetes mellitus. Status post right BKA. Dyslipidemia. Polysubstance use disorder. Left lower extremity cellulitis. Peripheral vascular disease status post right [id number] amputation 6 months ago. Sepsis. Diabetic neuropathy. Assessment/Plan Continued all current supportive medical care. Dilaudid and [place] for pain management. Aspirin, Lipitor. IV Hydralazine for SBP > 150. GI prophylactics. Losartan. Vasopressors for hemodynamic support. Additional plan as per the hospital course. Critical care time of 45 minutes provided to include time spent evaluation of patient at bedside, when appropriate patient/family education for diagnosis, treatment plan, review of pertinent medical information and discussion of care with specialty providers and PCP. Mechanical ventilator parameters, treatment and adjustments have personally been reviewed by me and treatment plan by sed special education teacher has also been reviewed. Dietary Evaluation Review Comments: 1) [place] 1 pk BID 2) Refer Hatchery Helper on DC 3) Continue current plan of care Expected Outcomes/Goals: Pt will meet >75% estimated needs Fu 3-5 days Plan discussed with: Other YANIRA WINN MD April 24, 2025 11:43
== END 2025-04-24 19:00 | DRG 5 ==
LOC: ER 10:55 → OVERFLOW 13:38 → TELE-WESTW 02-20 12:30 → ICU CENTRL 03-13 02:00
PROVIDERS: ADMIT Nurse Practitioner Acute Care; ATTEND Nurse Practitioner Acute Care
PROC: B24BZZ4 Ultrasonography of Heart with Aorta, Transesophageal (ICD-10-PCS; 2025-02-21)
PROC: 0S9D3ZX Drainage of Left Knee Joint, Percutaneous Approach, Diagnostic (ICD-10-PCS; 2025-02-25)
PROC: 0S9D3ZX Drainage of Left Knee Joint, Percutaneous Approach, Diagnostic (ICD-10-PCS; 2025-03-04)
PROC: 0JBP0ZZ Excision of Left Lower Leg Subcutaneous Tissue and Fascia, Open Approach (ICD-10-PCS; 2025-03-06)
PROC: 0MBP0ZZ Excision of Left Knee Bursa and Ligament, Open Approach (ICD-10-PCS; 2025-03-06)
PROC: 30233N1 Transfusion of Nonautologous Red Blood Cells into Peripheral Vein, Percutaneous Approach (ICD-10-PCS; 2025-03-07)
PROC: 5A12012 Performance of Cardiac Output, Single, Manual (ICD-10-PCS; 2025-03-12)
PROC: 5A1955Z Respiratory Ventilation, Greater than 96 Consecutive Hours (ICD-10-PCS; principal; 2025-03-13)
PROC: 02HV33Z Insertion of Infusion Device into Superior Vena Cava, Percutaneous Approach (ICD-10-PCS; 2025-03-13)
PROC: 0BH17EZ Insertion of Endotracheal Airway into Trachea, Via Natural or Artificial Opening (ICD-10-PCS; 2025-03-13)
PROC: 02HV33Z Insertion of Infusion Device into Superior Vena Cava, Percutaneous Approach (ICD-10-PCS; 2025-03-24)
PROC: 5A1945Z Respiratory Ventilation, 24-96 Consecutive Hours (ICD-10-PCS; 2025-03-26)
PROC: 5A09357 Assistance with Respiratory Ventilation, Less than 24 Consecutive Hours, Continuous Positive Airway Pressure (ICD-10-PCS; 2025-03-26)
PROC: 5A09357 Assistance with Respiratory Ventilation, Less than 24 Consecutive Hours, Continuous Positive Airway Pressure (ICD-10-PCS; 2025-03-29)
PROC: 5A09357 Assistance with Respiratory Ventilation, Less than 24 Consecutive Hours, Continuous Positive Airway Pressure (ICD-10-PCS; 2025-03-30)
PROC: 5A09357 Assistance with Respiratory Ventilation, Less than 24 Consecutive Hours, Continuous Positive Airway Pressure (ICD-10-PCS; 2025-03-31)
PROC: 0BH17EZ Insertion of Endotracheal Airway into Trachea, Via Natural or Artificial Opening (ICD-10-PCS; 2025-04-06)
PROC: 5A1955Z Respiratory Ventilation, Greater than 96 Consecutive Hours (ICD-10-PCS; 2025-04-06)
PROC: 5A12012 Performance of Cardiac Output, Single, Manual (ICD-10-PCS; 2025-04-06)
PROC: 0B110F4 Bypass Trachea to Cutaneous with Tracheostomy Device, Open Approach (ICD-10-PCS; 2025-04-11)
PROC: 0DH63UZ Insertion of Feeding Device into Stomach, Percutaneous Approach (ICD-10-PCS; 2025-04-14)
PROC: 02HV33Z Insertion of Infusion Device into Superior Vena Cava, Percutaneous Approach (ICD-10-PCS; 2025-04-16)
PROC: B548ZZA Ultrasonography of Superior Vena Cava, Guidance (ICD-10-PCS; 2025-04-16)
DX: A41.9 Sepsis, unspecified organism (principal); I63.9 Cerebral infarction, unspecified; N17.0 Acute kidney failure with tubular necrosis; R65.21 Severe sepsis with septic shock; G92.8 Other toxic encephalopathy; J15.1 Pneumonia due to Pseudomonas; E46 Unspecified protein-calorie malnutrition; M00.9 Pyogenic arthritis, unspecified; G81.94 Hemiplegia, unspecified affecting left nondominant side; E86.0 Dehydration; J96.01 Acute respiratory failure with hypoxia; L03.116 Cellulitis of left lower limb; E87.6 Hypokalemia; T78.3XXA Angioneurotic edema, initial encounter; F41.9 Anxiety disorder, unspecified; M70.42 Prepatellar bursitis, left knee; E11.41 Type 2 diabetes mellitus with diabetic mononeuropathy; E78.2 Mixed hyperlipidemia; R45.851 Suicidal ideations; F19.10 Other psychoactive substance abuse, uncomplicated; F17.210 Nicotine dependence, cigarettes, uncomplicated; E83.42 Hypomagnesemia; E66.9 Obesity, unspecified; Z68.30 Body mass index [BMI] 30.0-30.9, adult; G93.1 Anoxic brain damage, not elsewhere classified; E11.621 Type 2 diabetes mellitus with foot ulcer; E87.1 Hypo-osmolality and hyponatremia; E87.0 Hyperosmolality and hypernatremia; Z16.13 Resistance to carbapenem; I46.9 Cardiac arrest, cause unspecified; L97.529 Non-pressure chronic ulcer of other part of left foot with unspecified severity; K21.9 Gastro-esophageal reflux disease without esophagitis; E11.51 Type 2 diabetes mellitus with diabetic peripheral angiopathy without gangrene; Z99.11 Dependence on respirator [ventilator] status; E87.4 Mixed disorder of acid-base balance; E87.5 Hyperkalemia; E83.39 Other disorders of phosphorus metabolism; R04.0 Epistaxis; I12.9 Hypertensive chronic kidney disease with stage 1 through stage 4 chronic kidney disease, or unspecified chronic kidney disease; N18.9 Chronic kidney disease, unspecified; E11.22 Type 2 diabetes mellitus with diabetic chronic kidney disease; H53.462 Homonymous bilateral field defects, left side; I82.612 Acute embolism and thrombosis of superficial veins of left upper extremity; M70.52 Other bursitis of knee, left knee; E11.649 Type 2 diabetes mellitus with hypoglycemia without coma; F43.10 Post-traumatic stress disorder, unspecified; B95.61 Methicillin susceptible Staphylococcus aureus infection as the cause of diseases classified elsewhere; F32.9 Major depressive disorder, single episode, unspecified; Z79.899 Other long term (current) drug therapy; Z86.73 Personal history of transient ischemic attack (TIA), and cerebral infarction without residual deficits; Z79.84 Long term (current) use of oral hypoglycemic drugs; Z68.29 Body mass index [BMI] 29.0-29.9, adult; Z79.4 Long term (current) use of insulin; Z82.49 Family history of ischemic heart disease and other diseases of the circulatory system; Z89.511 Acquired absence of right leg below knee; Z83.3 Family history of diabetes mellitus; Z56.0 Unemployment, unspecified; Y95 Nosocomial condition
CPT/HCPCS: 31720; 36415; 36569; 36600; 70450; 70551; 71045; 72125; 73630; 73700; 73718; 73721; 74018; 74176; 74248; 76775; 76937; 76942; 80048; 80053; 80061; 80202; 80307; 80320; 81001; 82010; 82140; 82270; 82306; 82565; 82570; 82805; 82962; 83036; 83516; 83520; 83605; 83615; 83735; 83880; 83970; 83986; 84100; 84132; 84156; 84300; 84478; 84484; 84550; 84702; 85007; 85014; 85018; 85025; 85027; 85379; 85610; 85652; 85730; 86141; 86160; 86225; 86235; 86256; 86850; 86900; 86901; 86920; 87040; 87070; 87075; 87077; 87081; 87086; 87186; 87205; 87493; 89051; 92507; 92610; 92950; 93005; 93312; 93886; 93926; 93971; 94002; 94003; 94640; 94660; 94667; 94668; 96365; 96375; 97110; 97116; 97162; 97163; 97530; 99152; 99291; 99292; C1729; G0378; J0131; J0330; J0692; J1100; J1815; J1885; J2003; J2185; J2250; J2405; J2470; J2543; J2704; J3480; J3490; J7060